=== PATIENT | female | born 1945 | race Caucasian/White ===

== ENCOUNTER → 2021-10-22 09:52 | Outpatient (BNVA) | payer MEDICARE, SELFPAY | PROVIDERS: PCP Internal Medicine; Visit Provider Psychiatry & Neurology Neurology | DX: R26.9 Unspecified abnormalities of gait and mobility (principal); R25.1 Tremor, unspecified; F09 Unspecified mental disorder due to known physiological condition | CPT/HCPCS: 99202 ==

== ENCOUNTER 2022-04-16 13:05 | Inpatient (IN) | payer MEDICARE, SELFPAY ==
--- NOTE | ~2022-04-16 | US_ITS ---
EXAMINATION: US VENOUS ULTRASOUND WITH DOPPLER LOWER EXTREMITY, BILATERAL CLINICAL INFORMATION: Lower extremity edema COMPARISON: None TECHNIQUE: Ultrasound of the deep veins is performed from the hip to the calf with compression sonography and color and pulse Doppler assessment. Spectral analysis with color-flow imaging is performed. FINDINGS: RIGHT: There is normal venous compression and respiratory variation and augmented flow. The visualized common femoral vein, superficial femoral vein, profunda femoral vein, popliteal vein, and the trifurcation region shows no evidence of deep venous thrombosis. There is no significant popliteal fossa cyst. LEFT: There is normal venous compression and respiratory variation and augmented flow. The visualized common femoral vein, superficial femoral vein, profunda femoral vein, popliteal vein, and the trifurcation region shows no evidence of deep venous thrombosis. There is no significant popliteal fossa cyst. If the patient's symptoms persist, followup ultrasound in 5 days 7 days might be of value to exclude proximal propagation from a non-visualized calf vein. US/US venous duplex LE BI IMPRESSION: No DVT demonstrated in the bilateral lower extremities.
--- NOTE | 2022-04-16 13:27 | ECG_ITS ---
Test Reason : medical clearance Blood Pressure : / mmHG Vent. Rate : 084 BPM Atrial Rate : 084 BPM P-R Int : 146 ms QRS Dur : 090 ms QT Int : 370 ms P-R-T Axes : 064 042 052 degrees QTc Int : 437 ms Sinus rhythm with marked sinus arrhythmia with occasional Premature ventricular complexes Otherwise normal ECG No previous ECGs available Referred By: Ruth Gray Electronically Signed By:MAITE BERNARD
--- NOTE | 2022-04-16 13:29 | ED.PSYCH ---
HPI - Psych General Chief Complaint: Psychiatric Symptoms Stated Complaint: SEC 12,SI/HI,PARANOID/DELSUION,UNCOOP,CPD ON BOARD Time Seen by Provider: 04/16/22 13:26 Source: patient, EMS and old records reviewed Mode of arrival: EMS Limitations: other (Acute psychosis) History of Present Illness HPI Narrative: 77-year-old female who came from home under Section 12 restrained for evaluation of psychosis, stated homicidal and suicidal statements. Patient with history of bipolar disorder on lithium there is question of not compliant with her medication, reportedly patient has been disorganized and paranoid behavior, patient in the emergency department is overall poor historian and uninterrupted speech, appeared very disorganized, very difficult to redirect., meaningless dialogue. Unable to obtain meaningful history from the patient. Related Data Home Medications Medication Instructions Recorded Confirmed aspirin 325 mg tablet 325 mg PO DAILY 10/22/21 10/22/21 atenolol 25 mg tablet 25 mg PO DAILY 10/22/21 10/22/21 blood sugar diagnostic (FreeStyle #10 ea 10/22/21 10/22/21 Lite Strips) fluconazole 150 mg tablet 150 mg PO ONCE 10/22/21 10/22/21 furosemide 20 mg tablet 20 mg PO DAILY 10/22/21 10/22/21 levocetirizine 5 mg tablet 5 mg PO DAILY 10/22/21 10/22/21 lithium carbonate 300 mg tablet mg PO 10/22/21 10/22/21 melatonin 5 mg tablet 5 mg PO BEDTIME PRN insomnia 10/22/21 10/22/21 metformin 1,000 mg tablet 1,000 mg PO DAILY 10/22/21 10/22/21 nortriptyline 50 mg capsule 50 mg PO BEDTIME 10/22/21 10/22/21 omeprazole 20 mg capsule,delayed 20 mg PO DAILY 10/22/21 10/22/21 release simvastatin 20 mg tablet 20 mg PO BEDTIME 10/22/21 10/22/21 Allergies Allergy/AdvReac Type Severity Reaction Status Date / Time No Known Allergies Allergy Verified 10/22/21 10:21 [No Known Allergies*] Review of Systems Review of Systems: Yes Unobtainable due to mental status PMFSH Past Medical History Medical History Bipolar 1 disorder Breast cancer Cognitive disorder Depression Diabetes DVT (deep venous thrombosis) Gait disorder GERD (gastroesophageal reflux disease) Hand weakness HTN (hypertension) Hyperlipidemia Obesity TIA (transient ischemic attack) Tremors of nervous system Wheezing Surgical History H/O mastectomy Family History Family History Brother Alcohol abuse Polio Brother Cancer Sister Stroke Mother HTN (hypertension) Sister Cancer Social History Social History Alcohol intake: current Alcohol type: wine Patient Tobacco Use Status: Former Tobacco user Quit Date: 2011 Advance Directives: No Advance Directives Information Provided: Yes Physical Exam Vital Signs: Vital Signs: Last Vital Signs Temp 99 F 04/16/22 13:46 Pulse 125 H 04/16/22 13:46 Resp 18 04/16/22 13:46 BP 141/87 H 04/16/22 13:46 Pulse Ox 99 04/16/22 13:46 O2 Del Method 04/16/22 13:46 BMI result Body Mass Index 29.8 Appearance: Disorganized. Head: Normal external exam. Normocephalic. Atraumatic. No [place] signs noted. No raccoon eyes noted Eyes: PERRLA. EOMI. Conjunctiva and sclera normal. Eyelids normal. ENT: TM's Normal. Pharynx normal. Uvula midline. Moist mucous membranes. No trismus noted. No drooling noted. No muffled voice noted. Neck: Normal inspection. Neck supple. FROM. No adenopathy. Thyroid Normal. No meningeal signs. No neck mass noted. CVS: Normal heart rate and rhythm. Heart sound normal. No murmurs noted. Pulses normal throughout. Respiratory: No respiratory distress. Painless inspiration. Breath sounds normal. No wheezes/rales/rhonchi noted. Chest nontender. No accessory muscle usage noted or decreased air movement noted. Abdomen: Soft and nontender. Bowel sounds normal in all 4 quadrants. No distention noted. No organomegaly noted. No visible injury noted. Back: No CVA tenderness. Full range of motion noted. Skin: Skin warm and dry. Normal skin color. Normal skin turgor. No rashes/lesions/lacerations noted. Extremities: No lower extremity edema. Extremities exhibit normal range of motion. Extremities nontender. Neuro: Disorganized, unable to get history from the patient.. Cranial nerve exam: II-XII are grossly intact No motor deficit. No sensory deficit. Patient Orientation: Cannot assess Level of Consciousness: Awake, and alert Patient Behavior: Guarded, carry on a relevant and meaningless download Mood Description: Can not assess Affect Description: Can not assess Patient Cognition Impaired: Can not assess Ability to Follow Directions: Do not follow direction Speech Pattern: Mix of tangential and circumferential speech Memory Description: Can not assess Hallucinations: Can not assess Delusions: Can not assess Thought Process: Inappropriate Thought Content: Homicidal and suicidal statement to the community mental health social worker Depressive Symptoms: Can not assess Judgement: Poor. Course Course Course Narrative: Due to acute psychosis and acute manic phase of bipolar unable to obtain blood, patient still awaiting for medical clearance and N consultation. MDM - Psych Lab Data Labs: Lab Results 04/16/22 04/16/22 04/16/22 Range/Units 14:19 19:40 19:40 Urine Color Yellow Urine Appearance Clear Urine pH 6.0 (5.0-8.0) Ur Specific [place] <= 1.005 (1.005-1.025) Urine Protein Negative (Neg-Trace) mg/dL Urine Glucose (UA) Negative (Negative) mg/dL Urine Ketones Negative (Negative) mg/dL Urine Blood Negative (Negative) Urine Nitrite Negative (Negative) Ur Leukocyte Esterase Negative (Negative) Urine Opiates Screen Not Detected (Not Detect) Urine Fentanyl Screen Not Detected (Not Detect) Ur Barbiturates Screen Not Detected (Not Detect) Ur Phencyclidine Scrn Not Detected (Not Detect) Ur Amphetamines Screen Not Detected (Not Detect) U Benzodiazepines Scrn Not Detected (Not Detect) Urine Cocaine Screen Not Detected (Not Detect) U Marijuana (THC) Screen Not Detected (Not Detect) COVID-19 (MOISES) Negative (Negative) COVID-19 Clin Com See Note Discharge Plan Discharge Clinical Impression: Bipolar 1 disorder, Acute psychosis Patient Disposition: Still a Patient Prescriptions: No Action fluconazole 150 mg tablet 150 mg PO ONCE levocetirizine 5 mg tablet 5 mg PO DAILY atenolol 25 mg tablet 25 mg PO DAILY (DME) FreeStyle Lite Strips Strip See Rx Instructions Not Applicable TID Qty: 10 Rx Instructions: As directed furosemide 20 mg tablet 20 mg PO DAILY lithium carbonate 300 mg tablet PO metformin 1,000 mg tablet 1,000 mg PO DAILY nortriptyline 50 mg capsule 50 mg PO BEDTIME omeprazole 20 mg capsule,delayed release(DR/EC) 20 mg PO DAILY simvastatin 20 mg tablet 20 mg PO BEDTIME melatonin 5 mg tablet 5 mg PO BEDTIME PRN (Reason: insomnia) aspirin 325 mg tablet 325 mg PO DAILY
[2022-04-16 13:46] VITALS: BP 141/87; PULSE 125; RESP 18; TEMP 37.2; O2SAT 99; BMI 29.8
--- NOTE | 2022-04-16 14:33 | PC.NURSE ---
client declined permission for me to speak to sister
--- NOTE | 2022-04-16 14:40 | MHC.CARE ---
CARE Team talked to pt's sister who is POA and HCP. She will be faxing over paper work at this time and would like to notify the ED that she is highly involved in pt's care and would like to be called for anything.
[2022-04-16 14:47] LABS: COVID-19 Test Negative (Negative); IDNOW Serial# 16C4AD1C
--- NOTE | 2022-04-16 15:41 | MHC.CARE ---
CARE team received copy of pt's Health Care Proxy. Document has been placed in pt's physical chart in the [facility] pod.
--- NOTE | 2022-04-16 17:32 | PC.NURSE ---
im smarter than everyone in this room
[2022-04-16 19:50] LABS: Appearance Urine Clear; Color Urine Yellow; Glucose Urine UA Negative (Negative); Leukocyte Esterase Urine Negative (Negative); Nitrite Urine Negative (Negative); Specific Gravity - Urine <= 1.005 (1.005-1.025); Urine Blood Negative (Negative); Urine Ketones Negative (Negative); Urine Protein Negative (Neg-Trace)
[2022-04-16 20:07] LABS: Amphetamine Screen Urine Not Detected (Not Detect); Barbiturates, Urine Not Detected (Not Detect); Benzodiazepines Screen Urine Not Detected (Not Detect); Cannabinoid Screen Urine Not Detected (Not Detect); Cocaine Screen Urine Not Detected (Not Detect); Fentanyl, urine Not Detected (Not Detect); Opiate Screen Urine Not Detected (Not Detect); Phencyclidine Screen Urine Not Detected (Not Detect)
--- NOTE | 2022-04-16 22:15 | PC.NURSE ---
Patient is completely paranoid, thought content disorganized, thought process tangential, hyper-verbal, loud and disruptive, verbally towards staff member, refused lab draw multiple times, Dr. Gray made aware, patient disposition per [facility] is section 12 inpatient bed search, will continue to monitor.
--- NOTE | 2022-04-16 22:51 | PC.NURSE ---
PATIENT REFUSED LABS.
--- NOTE | 2022-04-17 05:50 | PC.NURSE ---
Patient slept through the night, no distress observed/reported, patient continues to refuse EKG and lab, patient is on section 12 inpatient bed search by N, Behavior loud and disruptive, disorganized, will continue to monitor.
--- NOTE | 2022-04-17 07:20 | PC.NURSE ---
patient appears to remain asleep at present respirations even and unlabored patient appears in no distress
[2022-04-17 10:39] VITALS: BP 139/80; PULSE 100; RESP 16; TEMP 36.3; O2SAT 94
[2022-04-17 10:40] LABS: UPreg QC Valid YES; Urine Pregnancy NEGATIVE (NEGATIVE)
[2022-04-17 10:53] LABS: MANUAL DIFF FLAG NO
[2022-04-17] MEDS: Divalproex Sodium 500 MG TABLET.DR PO ×2 (10:55→20:27)
[2022-04-17] MEDS: amLODIPine Besylate 5 MG TABLET PO (10:56)
[2022-04-17] MEDS: Omeprazole 20 MG CAPSULE.DR PO (10:57)
[2022-04-17] MEDS: metFORMIN HCl ER 500 MG TAB.ER.24H PO (10:57)
[2022-04-17 11:02] LABS: Basophils Percent Auto 0.4 % (0-2); Eosinophils Absolute Auto 0.2 X10*3/uL (0.0-0.4); Eosinophils Percent Auto 2.1 % (0-4); Hematocrit 39.2 % (37.0-47.0); Hemoglobin 12.8 g/dl (12.0-16.0); Imm Gran Abs Auto 0.03 X10*3/uL (0.00-0.03); Imm Gran Pct Auto 0.3 % (0.0-0.4); Lymphocytes Absolute Auto 1.4 X10*3/uL (1.2-4.9); Lymphocytes Percent Auto 14.9 % (20-40); Mean Corpuscular HGB Conc 32.7 g/dl (31.0-35.0); Mean Corpuscular Hemoglobin 29.8 pg (27.0-33.0); Mean Corpuscular Volume 91.4 fL (80.0-98.0); Mean Platelet Volume 10.8 fL (9.4-12.3); Monocytes Absolute Auto 0.5 X10*3/uL (0.1-1.2); Monocytes Percent Auto 5.3 % (2-11); Neutrophils Absolute Auto 7.4 x10*3/uL (2.0-8.3); Platelet Count 290 X10*3/uL (160-400); Red Blood Count 4.29 X10*6/uL (4.20-5.50); Red Cell Distribution Width 13.1 % (11.0-16.0); White Blood Count 9.6 X10*3/uL (4.8-10.8)
[2022-04-17 11:07] VITALS: PULSE 95; RESP 16; TEMP 36.6
[2022-04-17 11:31] LABS: Valproate 23.7 mcg/mL (50.0-100.0)
[2022-04-17 11:55] LABS: Alanine Aminotransferase 26 U/L (0-31); Albumin Level 4.1 g/dL (3.5-5.0); Alkaline Phosphatase 97 U/L (39-117); Anion Gap 15 (12-20); Aspartate Amino Transferase 25 U/L (5-31); Bilirubin Total 0.5 mg/dL (0.0-1.0); Blood Urea Nitrogen 24 mg/dL (9-16); Calcium 9.9 mg/dL (8.4-10.2); Carbon Dioxide 23 mmol/L (22-29); Chloride 109 mmol/L (96-108); Creatinine Clr Calc Pharmacy 38.2; Estimated Glomerular Filt Rate 37; Glucose Fasting 145 mg/dL (60-99); Potassium 4.5 mmol/L (3.3-5.1); Sodium 142 mmol/L (135-145); Total Protein 7.1 g/dL (6.5-8.0)
--- NOTE | 2022-04-17 13:10 | PC.NURSE ---
patient seems to be exhibitiing some forgetfulness, at least 3 times in las 24 hours reminded patient about her not bringing glasses
[2022-04-17 14:30] VITALS: BP 141/65; PULSE 98; RESP 17; TEMP 36.6; O2SAT 97
--- NOTE | 2022-04-17 15:55 | P.HPPS_ITS ---
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 According to the crisis report, the patient carries a diagnosis of bipolar disorder and she had been on lithium for several years until her control and recovery combat rescue discontinued i t. The patient has 2 crisis assessment in the last month due to disorganized behavior. According to the crisis team the patient is nonsensical, disorganized with flight of ideas and aggressive thoughts. Apparently, her [facility]NA called crisis due to disorganized behavior on clear noncompliance with treatment since bottles of medications were not used. On admission, the patient reported that she did not know how come she sign her conditional voluntary, her speech was rapid with flight of ideas, unable to provide a logical story. She was uncooperative and refused to have vital signs are EKG in the emergency room and she demanded to be discharged as soon as possible. The patient was a very poor historian and able to provide details about her mental illness. Past Psychiatric History: History of bipolar disorder, the patient is unable to provide details about her care but apparently she was on lithium for more than 32 years and on October of 2021 her control and recovery combat rescue discontinue this medication. It is unclear if she has previous psychiatric admissions. Medical Evaluation Reviewed: Hospitalist Nathen Pending [facility] Medical History Bipolar 1 disorder Breast cancer Cognitive disorder Depression Diabetes DVT (deep venous thrombosis) Gait disorder GERD (gastroesophageal reflux disease) Hand weakness HTN (hypertension) Hyperlipidemia Obesity TIA (transient ischemic attack) Tremors of nervous system Wheezing Surgical History H/O mastectomy Family History: Denies Social History: States that she lives by herself, apparently she used to be highly functional when she was stable. Substance History: Denies Trauma History: Denies Diagnostics Vital Signs (24Hr): Vital Signs - 24 hr 04/17/22 10:39 04/17/22 11:07 04/17/22 14:30 Temperature 97.4 F 97.9 F 97.9 F Pulse Rate 100 95 98 Respiratory Rate 16 16 17 Blood Pressure 139/80 141/65 H Pulse Oximetry 94 97 Oxygen Delivery Method Room Air Room Air BMI result Body Mass Index 29.8 Labs Results: 04/17/22 10:49 04/17/22 11:32 Labs: Laboratory Results - last 48 hr 04/16/22 04/16/22 04/16/22 14:19 19:40 19:40 WBC RBC Hgb Hct MCV MCH MCHC RDW Plt Count MPV Immature Gran % (Auto) Neut % (Auto) Lymph % (Auto) [place] % (Auto) Eos % (Auto) Baso % (Auto) Lymph # (Auto) [place] # (Auto) Eos # (Auto) Baso # (Auto) Abs Immat Gran (auto) Absolute Neuts (auto) Absolute Nucleated RBC Nucleated RBC % (auto) Sodium Potassium Chloride Carbon Dioxide Anion Gap BUN Creatinine Estim Creat Clear Calc Estimated GFR Fasting Glucose Calcium Total Bilirubin AST ALT Alkaline Phosphatase Total Protein Albumin Urine Color Yellow Urine Appearance Clear Urine pH 6.0 Ur Specific [place] <= 1.005 Urine Protein Negative Urine Glucose (UA) Negative Urine Ketones Negative Urine Blood Negative Urine Nitrite Negative Ur Leukocyte Esterase Negative Urine Test Urine Opiates Screen Not Detected Urine Fentanyl Screen Not Detected Ur Barbiturates Screen Not Detected Valproic Acid Ur Phencyclidine Scrn Not Detected Ur Amphetamines Screen Not Detected U Benzodiazepines Scrn Not Detected Urine Cocaine Screen Not Detected U Marijuana (THC) Screen Not Detected COVID-19 (MOISES) Negative COVID-19 Clin Com See Note 04/17/22 04/17/22 04/17/22 10:25 10:49 10:49 WBC 9.6 RBC 4.29 Hgb 12.8 Hct 39.2 MCV 91.4 MCH 29.8 MCHC 32.7 RDW 13.1 Plt Count 290 MPV 10.8 Immature Gran % (Auto) 0.3 Neut % (Auto) 77.0 H Lymph % (Auto) 14.9 L [place] % (Auto) 5.3 Eos % (Auto) 2.1 Baso % (Auto) 0.4 Lymph # (Auto) 1.4 [place] # (Auto) 0.5 Eos # (Auto) 0.2 Baso # (Auto) 0.0 Abs Immat Gran (auto) 0.03 Absolute Neuts (auto) 7.4 Absolute Nucleated RBC 0.000 Nucleated RBC % (auto) 0.0 Sodium Potassium Chloride Carbon Dioxide Anion Gap BUN Creatinine Estim Creat Clear Calc Estimated GFR Fasting Glucose Calcium Total Bilirubin AST ALT Alkaline Phosphatase Total Protein Albumin Urine Color Urine Appearance Urine pH Ur Specific [place] Urine Protein Urine Glucose (UA) Urine Ketones Urine Blood Urine Nitrite Ur Leukocyte Esterase Urine Test NEGATIVE Urine Opiates Screen Urine Fentanyl Screen Ur Barbiturates Screen Valproic Acid 23.7 L Ur Phencyclidine Scrn Ur Amphetamines Screen U Benzodiazepines Scrn Urine Cocaine Screen U Marijuana (THC) Screen COVID-19 (MOISES) COVID-19 Clin Com 04/17/22 11:32 WBC RBC Hgb Hct MCV MCH MCHC RDW Plt Count MPV Immature Gran % (Auto) Neut % (Auto) Lymph % (Auto) [place] % (Auto) Eos % (Auto) Baso % (Auto) Lymph # (Auto) [place] # (Auto) Eos # (Auto) Baso # (Auto) Abs Immat Gran (auto) Absolute Neuts (auto) Absolute Nucleated RBC Nucleated RBC % (auto) Sodium 142 Potassium 4.5 Chloride 109 H Carbon Dioxide 23 Anion Gap 15 BUN 24 H Creatinine 1.39 Estim Creat Clear Calc 38.2 Estimated GFR 37 Fasting Glucose 145 H Calcium 9.9 Total Bilirubin 0.5 AST 25 ALT 26 Alkaline Phosphatase 97 Total Protein 7.1 Albumin 4.1 Urine Color Urine Appearance Urine pH Ur Specific [place] Urine Protein Urine Glucose (UA) Urine Ketones Urine Blood Urine Nitrite Ur Leukocyte Esterase Urine Test Urine Opiates Screen Urine Fentanyl Screen Ur Barbiturates Screen Valproic Acid Ur Phencyclidine Scrn Ur Amphetamines Screen U Benzodiazepines Scrn Urine Cocaine Screen U Marijuana (THC) Screen COVID-19 (MOISES) COVID-19 Clin Com Meds/Allergies Meds Home Medications Medication Instructions Recorded Confirmed Type blood sugar diagnostic ([place] #10 ea 10/22/21 04/17/22 History Lite Strips) amlodipine 5 mg tablet 1 tab PO DAILY 04/16/22 04/16/22 History divalproex 500 mg tablet,delayed 1 tab PO BID 04/16/22 04/16/22 History release lamotrigine 25 mg tablet 2 tab PO BID 04/16/22 04/16/22 History metformin 500 mg tablet,extended 1 tab PO DAILY 04/16/22 04/16/22 History release 24 hr olanzapine 2.5 mg tablet 1 tab PO BEDTIME 04/16/22 04/16/22 History omeprazole 20 mg capsule,delayed 1 cap PO DAILY@0600 04/16/22 04/17/22 History release torsemide 20 mg tablet 1 tab PO DAILY PRN swelling 04/16/22 04/16/22 History Allergies Allergies Allergy/AdvReac Type Severity Reaction Status Date / Time No Known Allergies Allergy Verified 10/22/21 10:21 [No Known Allergies*] Mental Status Exam Mental Status Exam Patient Appearance: Appropriate (On hospital gowns) Patient Orientation: Person, Place and Situation Level of Consciousness: Awake Patient Behavior: Guarded and Hyperactive Mood Description: Hostile Affect Description: Labile Patient Cognition Impaired: Yes Ability to Follow Directions: Fair Speech Pattern: Clear Hallucinations: None Delusions: Grandiose Thought Process: Racing Thought Content: positive for [place], positive for Loose Associations and positive for Logical Judgement: Poor Assessment & Plan Assessment & Plan (1) Acute psychosis: Status: Acute Code(s): F23 - Brief psychotic disorder (2) Bipolar 1 disorder: Status: Acute Code(s): F31.9 - Bipolar disorder, unspecified Plan Elderly female with a long history of bipolar disorder who was stable for more than 32 years old lithium , recently discontinued due to renal problems with manic symptoms elicited by flight of ideas, racing thoughts, disorganized behavior and increased irritability. She was referred to the emergency room by the [facility]NA for assessment. Plan 1. Gather collateral information. 2. Continue with regular medications prescribed before. 3. Start Zyprexa 2.5 mg p.o. q.h.s. as a mood stabilizer. 4. Continue medical workup Patient educated on: diagnosis Informed Consent: further education needed Reason for continued inpatient stay Substantial Risk for: harm to self, inability to function, rapid decompensation and med/psych decompensation
--- NOTE | 2022-04-17 17:08 | PC.ADMIT ---
Patient admitted to unit from ED with diagnosis of disorganized behavior.Patient was dressed in hospital attire and appeared neatly groomed. Patient has HX of bipolar disorder and had been on [place] until recently when plant safety engineer discontinued it. The patient is nonsensical, disorganized with flight of ideas and exhibiting agitation. Patient reported to this fiction and nonfiction prose writer that she did not agree to sign the CV. She acknowledged that it was her signature however refused to acknowledge that she signed it willingly. She exhibited rapid speech and was unable/unwilling to provide collateral information or participate in admission process stating, I'm not going to do anything until I talk to my micro paleontologist. The micro paleontologist she named was called and message was left by patient. Patient settled into unit and was observed interacting with peers in an appropriate manner. VSS.
[2022-04-17 18:00] VITALS: BP 122/58; PULSE 88; RESP 19; TEMP 36.6; O2SAT 95
[2022-04-17] MEDS: lamoTRIgine 25 MG TABLET 50 MG PO (20:24)
[2022-04-17] MEDS: OLANZapine 2.5 MG TABLET PO (20:24)
[2022-04-17] MEDS: Hydrocortisone 1 % Cream 28.35 GM TUBE 1 APPL TOPICAL (21:53)
[2022-04-18] MEDS: Omeprazole 20 MG CAPSULE.DR PO (05:59)
[2022-04-18 07:00] VITALS: BP 136/73; PULSE 98; RESP 16; TEMP 35.8; O2SAT 96
[2022-04-18 08:27] LABS: Alanine Aminotransferase 25 U/L (0-31); Alkaline Phosphatase 90 U/L (39-117); Anion Gap 18 (12-20); Aspartate Amino Transferase 20 U/L (5-31); Bilirubin Total 0.3 mg/dL (0.0-1.0); Blood Urea Nitrogen 29 mg/dL (9-16); Calcium 9.7 mg/dL (8.4-10.2); Carbon Dioxide 22 mmol/L (22-29); Chloride 108 mmol/L (96-108); Cholesterol 154 mg/dL; Creatinine Clr Calc Pharmacy 32.9; Estimated Glomerular Filt Rate 31; Glucose Fasting 124 mg/dL (60-99); HDL Cholesterol 41 mg/dL; LDL Cholesterol Calculated 77 mg/dl; Potassium 4.5 mmol/L (3.3-5.1); Sodium 143 mmol/L (135-145); Total Protein 7.1 g/dL (6.5-8.0); Triglycerides 184 mg/dL
[2022-04-18] MEDS: amLODIPine Besylate 5 MG TABLET PO (09:48)
[2022-04-18] MEDS: metFORMIN HCl ER 500 MG TAB.ER.24H PO (09:48)
[2022-04-18] MEDS: Divalproex Sodium 500 MG TABLET.DR PO ×2 (09:48→20:20)
[2022-04-18] MEDS: lamoTRIgine 25 MG TABLET 50 MG PO (09:48)
--- NOTE | 2022-04-18 13:23 | P.PNPSI_ITS ---
Subjective Subjective Date of Service: 04/18/22 Reason For Visit: Psychosis Subjective Notes: Conditional Voluntary Healthcare Proxy: Yes (Not invoked) Interim History: Patient is disorganized somewhat poor historian somewhat pressured and labile Medication Compliance: Yes Review of Systems Acute medical concerns: Yes Recent hospitalization at [facility] trying to obtain records Diagnosis of chronic kidney disease over the past year Mental Status Exam Mental Status Exam Patient Appearance: Appropriate (On hospital gowns) Patient Orientation: Person, Place and Situation Level of Consciousness: Awake Patient Behavior: Guarded, Hyperactive and Restless Mood Description: Labile, Angry and Apprehensive Affect Description: Labile Patient Cognition Impaired: Yes Ability to Follow Directions: Fair Speech Pattern: Clear Hallucinations: None Delusions: Grandiose Thought Process: Racing Thought Content: positive for [place], positive for Loose Associations and positive for Logical Judgement: Poor Diagnostics Vital Signs (24Hr): Vital Signs - 24 hr 04/17/22 14:30 04/17/22 18:00 04/18/22 07:00 Temperature 97.9 F 97.8 F 96.5 F L Pulse Rate 98 88 98 Respiratory Rate 17 19 16 Blood Pressure 141/65 H 122/58 L 136/73 Pulse Oximetry 97 95 96 Oxygen Delivery Method Room Air Room Air Room Air BMI result Body Mass Index 29.8 Labs Results: 04/17/22 10:49 04/18/22 07:57 Labs: Laboratory Results - last 48 hr 04/16/22 04/16/22 04/16/22 14:19 19:40 19:40 WBC RBC Hgb Hct MCV MCH MCHC RDW Plt Count MPV Immature Gran % (Auto) Neut % (Auto) Lymph % (Auto) [place] % (Auto) Eos % (Auto) Baso % (Auto) Lymph # (Auto) [place] # (Auto) Eos # (Auto) Baso # (Auto) Abs Immat Gran (auto) Absolute Neuts (auto) Absolute Nucleated RBC Nucleated RBC % (auto) Sodium Potassium Chloride Carbon Dioxide Anion Gap BUN Creatinine Estim Creat Clear Calc Estimated GFR Fasting Glucose Calcium Total Bilirubin AST ALT Alkaline Phosphatase Total Protein Albumin Triglycerides Cholesterol LDL Cholesterol, Calc HDL Cholesterol Urine Color Yellow Urine Appearance Clear Urine pH 6.0 Ur Specific [place] <= 1.005 Urine Protein Negative Urine Glucose (UA) Negative Urine Ketones Negative Urine Blood Negative Urine Nitrite Negative Ur Leukocyte Esterase Negative Urine Test Urine Opiates Screen Not Detected Urine Fentanyl Screen Not Detected Ur Barbiturates Screen Not Detected Valproic Acid Ur Phencyclidine Scrn Not Detected Ur Amphetamines Screen Not Detected U Benzodiazepines Scrn Not Detected Urine Cocaine Screen Not Detected U Marijuana (THC) Screen Not Detected COVID-19 ([facility]) Negative COVID-19 Clin Com See Note 04/17/22 04/17/22 04/17/22 10:25 10:49 10:49 WBC 9.6 RBC 4.29 Hgb 12.8 Hct 39.2 MCV 91.4 MCH 29.8 MCHC 32.7 RDW 13.1 Plt Count 290 MPV 10.8 Immature Gran % (Auto) 0.3 Neut % (Auto) 77.0 H Lymph % (Auto) 14.9 L [place] % (Auto) 5.3 Eos % (Auto) 2.1 Baso % (Auto) 0.4 Lymph # (Auto) 1.4 [place] # (Auto) 0.5 Eos # (Auto) 0.2 Baso # (Auto) 0.0 Abs Immat Gran (auto) 0.03 Absolute Neuts (auto) 7.4 Absolute Nucleated RBC 0.000 Nucleated RBC % (auto) 0.0 Sodium Potassium Chloride Carbon Dioxide Anion Gap BUN Creatinine Estim Creat Clear Calc Estimated GFR Fasting Glucose Calcium Total Bilirubin AST ALT Alkaline Phosphatase Total Protein Albumin Triglycerides Cholesterol LDL Cholesterol, Calc HDL Cholesterol Urine Color Urine Appearance Urine pH Ur Specific [place] Urine Protein Urine Glucose (UA) Urine Ketones Urine Blood Urine Nitrite Ur Leukocyte Esterase Urine Test NEGATIVE Urine Opiates Screen Urine Fentanyl Screen Ur Barbiturates Screen Valproic Acid 23.7 L Ur Phencyclidine Scrn Ur Amphetamines Screen U Benzodiazepines Scrn Urine Cocaine Screen U Marijuana (THC) Screen COVID-19 ([facility]) COVID-19 Clin Com 04/17/22 04/18/22 11:32 07:57 WBC RBC Hgb Hct MCV MCH MCHC RDW Plt Count MPV Immature Gran % (Auto) Neut % (Auto) Lymph % (Auto) [place] % (Auto) Eos % (Auto) Baso % (Auto) Lymph # (Auto) [place] # (Auto) Eos # (Auto) Baso # (Auto) Abs Immat Gran (auto) Absolute Neuts (auto) Absolute Nucleated RBC Nucleated RBC % (auto) Sodium 142 143 Potassium 4.5 4.5 Chloride 109 H 108 Carbon Dioxide 23 22 Anion Gap 15 18 BUN 24 H 29 H Creatinine 1.39 1.61 H Estim Creat Clear Calc 38.2 32.9 Estimated GFR 37 31 Fasting Glucose 145 H 124 H Calcium 9.9 9.7 Total Bilirubin 0.5 0.3 AST 25 20 ALT 26 25 Alkaline Phosphatase 97 90 Total Protein 7.1 7.1 Albumin 4.1 4.0 Triglycerides 184 Cholesterol 154 LDL Cholesterol, Calc 77 HDL Cholesterol 41 Urine Color Urine Appearance Urine pH Ur Specific [place] Urine Protein Urine Glucose (UA) Urine Ketones Urine Blood Urine Nitrite Ur Leukocyte Esterase Urine Test Urine Opiates Screen Urine Fentanyl Screen Ur Barbiturates Screen Valproic Acid Ur Phencyclidine Scrn Ur Amphetamines Screen U Benzodiazepines Scrn Urine Cocaine Screen U Marijuana (THC) Screen COVID-19 ([facility]ES) COVID-19 Clin Com Medications Medications Current Medications Acetaminophen (Acetaminophen 325 Mg Tablet) 650 mg PO Q6H PRN PRN Reason: Headache/Pain Mild Scale (1-3) Al Hydroxide/Mg Hydroxide (Magnesium Hydrox/Alum Hydrox 30 Ml Oral.Susp) 30 ml PO Q6H PRN PRN Reason: Heartburn/Nausea Amlodipine Besylate (Amlodipine Besylate 5 Mg Tablet) 5 mg PO DAILY [facility]; Protocol Last Admin: 04/18/22 09:48 Dose: 5 mg Divalproex Sodium (Divalproex Sodium 500 Mg Tablet.) 500 mg PO BID [facility] Last Admin: 04/18/22 09:48 Dose: 500 mg Hydrocortisone (Hydrocortisone 1 % Cream 28.35 Gm Tube) 1 appl TOPICAL BID PRN PRN Reason: itchiness Last Admin: 04/17/22 21:53 Dose: 1 appl Hydroxyzine HCl (Hydroxyzine Hcl 25 Mg Tablet) 25 mg PO Q6H PRN PRN Reason: Anxiety Lamotrigine (Lamotrigine 25 Mg Tablet) 50 mg PO BID [facility] Last Admin: 04/18/22 09:48 Dose: 50 mg Magnesium Hydroxide (Milk Of Magnesia 30 Ml Oral.Susp) 30 ml PO DAILY PRN PRN Reason: Constipation Metformin HCl (Metformin Hcl Er 500 Mg Tab.Er.24h) 500 mg PO DAILY [facility] Last Admin: 04/18/22 09:48 Dose: 500 mg Olanzapine (Olanzapine 2.5 Mg Tablet) 2.5 mg PO BEDTIME [facility] Last Admin: 04/17/22 20:24 Dose: 2.5 mg Omeprazole (Omeprazole 20 Mg Capsule.) 20 mg PO DAILY@0630 [facility] Last Admin: 04/18/22 05:59 Dose: 20 mg Torsemide (Torsemide 20 Mg Tablet) 20 mg PO DAILY PRN; Protocol PRN Reason: swelling Trazodone HCl (Trazodone Hcl 50 Mg Tablet) 50 mg PO BEDTIME PRN PRN Reason: Insomnia Allergies Allergies Allergy/AdvReac Type Severity Reaction Status Date / Time No Known Allergies Allergy Verified 10/22/21 10:21 [No Known Allergies*] Assessment & Plan Assessment & Plan (1) Acute psychosis: Status: Acute Code(s): F23 - Brief psychotic disorder (2) Bipolar 1 disorder: Status: Acute Code(s): F31.9 - Bipolar disorder, unspecified Plan Elderly female with a long history of bipolar disorder who was stable for more than 34 years old lithium , recently discontinued due to renal problems with manic symptoms elicited by flight of ideas, racing thoughts, disorganized behavior and increased irritability. She was referred to the emergency room by the [facility] for assessment. Plan 1. Gather collateral information. 2. Continue with regular medications prescribed before. 3. Start Zyprexa 2.5 mg p.o. q.h.s. as a mood stabilizer. 4. Continue medical workup for 04/18/22 stop lamictal cont depakote get records [facility] I spent minutes with the patient and/or on the patient floor today, greater than?50% of which was spent counseling/coordinating care. Reason for contiued inpatient stay Substantial Risk for: inability to function and med/psych decompensation
--- NOTE | 2022-04-18 14:45 | MHC.CLN ---
NUTRITION DIET CHANGED TO DIABETIC 1800 KCALS. DX DIABETES AND TAKES METFORMIN.
--- NOTE | 2022-04-18 17:50 | PC.NURSE ---
Patient was offered 3 day notice today following statements made during admission 04/17/22. Patient was agitated immediately following admission to unit and was declining to discuss the 3 day notice even though she was stating she did not want to be here.When approached today by TW patient was calm and expressed desire to remain hospitalized for as long as necessary. Patient stated, It's very peaceful here. I want to stay. No one is bothering me here. Patient has been pleasant and cooperative. Interacting with other patients. Sleeping and eating well. Patients sister(s) have called to discuss patient but have been denied access d/t patient refusing to sign releases and not wishing to speak to sister(s) at this time.
[2022-04-18 18:00] VITALS: BP 138/62; PULSE 85; RESP 16; TEMP 36.2; O2SAT 93
[2022-04-18] MEDS: OLANZapine 2.5 MG TABLET PO (20:20)
[2022-04-18] MEDS: Hydrocortisone 1 % Cream 28.35 GM TUBE 1 APPL TOPICAL (22:23)
[2022-04-19] MEDS: Omeprazole 20 MG CAPSULE.DR PO (05:53)
[2022-04-19 06:00] VITALS: BP 143/80; PULSE 73; RESP 17; TEMP 36.9; O2SAT 97
[2022-04-19] MEDS: metFORMIN HCl ER 500 MG TAB.ER.24H PO (10:00)
[2022-04-19] MEDS: amLODIPine Besylate 5 MG TABLET PO (10:00)
[2022-04-19] MEDS: Divalproex Sodium 500 MG TABLET.DR PO ×2 (10:01→20:23)
--- NOTE | 2022-04-19 13:13 | PC.NURSE ---
Pt was administered a MOCA at 12:45pm in the milieu of . Pt scored a 22, demonstrating mild cognitive impairment. Upon assessment administration, pt was very social and pleasant. Since the assessment was done in the busy milieu, there was lots of background noise and visual distractions which could have affected the pt's total score on the assessment. These confounding variables should be considered when interpreting the results.
--- NOTE | 2022-04-19 16:44 | P.PNPSI_ITS ---
Subjective Subjective Date of Service: 04/19/22 Reason For Visit: Psychosis Subjective Notes: Conditional Voluntary Interim History: Patient was calmer more organized today seems to be responding to Depakote Medication Compliance: Yes Mental Status Exam Mental Status Exam Patient Appearance: Appropriate (On hospital gowns) Patient Orientation: Person, Place and Situation Level of Consciousness: Awake Patient Behavior: Cooperative Mood Description: Labile, Angry and Apprehensive Affect Description: Labile Patient Cognition Impaired: Yes Ability to Follow Directions: Fair Speech Pattern: Clear Hallucinations: None Delusions: Grandiose Thought Process: Racing Thought Content: positive for [place], positive for Loose Associations and positive for Logical Judgement: Poor Diagnostics Vital Signs (24Hr): Vital Signs - 24 hr 04/18/22 18:00 04/19/22 06:00 Temperature 97.1 F 98.4 F Pulse Rate 85 73 Respiratory Rate 16 17 Blood Pressure 138/62 143/80 H Pulse Oximetry 93 97 Oxygen Delivery Method Room Air Room Air BMI result Body Mass Index 29.8 Labs Results: 04/17/22 10:49 04/18/22 07:57 Labs: Laboratory Results - last 48 hr 04/18/22 07:57 Sodium 143 Potassium 4.5 Chloride 108 Carbon Dioxide 22 Anion Gap 18 BUN 29 H Creatinine 1.61 H Estim Creat Clear Calc 32.9 Estimated GFR 31 Fasting Glucose 124 H Calcium 9.7 Total Bilirubin 0.3 AST 20 ALT 25 Alkaline Phosphatase 90 Total Protein 7.1 Albumin 4.0 Triglycerides 184 Cholesterol 154 LDL Cholesterol, Calc 77 HDL Cholesterol 41 Medications Medications Current Medications Acetaminophen (Acetaminophen 325 Mg Tablet) 650 mg PO Q6H PRN PRN Reason: Headache/Pain Mild Scale (1-3) Al Hydroxide/Mg Hydroxide (Magnesium Hydrox/Alum Hydrox 30 Ml Oral.Susp) 30 ml PO Q6H PRN PRN Reason: Heartburn/Nausea Amlodipine Besylate (Amlodipine Besylate 5 Mg Tablet) 5 mg PO DAILY [facility]; Protocol Last Admin: 04/19/22 10:00 Dose: 5 mg Divalproex Sodium (Divalproex Sodium 500 Mg Tablet.Dr) 500 mg PO BID [facility] Last Admin: 04/19/22 10:01 Dose: 500 mg Hydrocortisone (Hydrocortisone 1 % Cream 28.35 Gm Tube) 1 appl TOPICAL BID PRN PRN Reason: itchiness Last Admin: 04/18/22 22:23 Dose: 1 appl Hydroxyzine HCl (Hydroxyzine Hcl 25 Mg Tablet) 25 mg PO Q6H PRN PRN Reason: Anxiety Magnesium Hydroxide (Milk Of Magnesia 30 Ml Oral.Susp) 30 ml PO DAILY PRN PRN Reason: Constipation Metformin HCl (Metformin Hcl Er 500 Mg Tab.Er.24h) 500 mg PO DAILY [facility] Last Admin: 04/19/22 10:00 Dose: 500 mg Olanzapine (Olanzapine 2.5 Mg Tablet) 2.5 mg PO BEDTIME [facility] Last Admin: 04/18/22 20:20 Dose: 2.5 mg Omeprazole (Omeprazole 20 Mg Capsule.Dr) 20 mg PO DAILY@0630 [facility] Last Admin: 04/19/22 05:53 Dose: 20 mg Torsemide (Torsemide 20 Mg Tablet) 20 mg PO DAILY PRN; Protocol PRN Reason: swelling Trazodone HCl (Trazodone Hcl 50 Mg Tablet) 50 mg PO BEDTIME PRN PRN Reason: Insomnia Allergies Allergies Allergy/AdvReac Type Severity Reaction Status Date / Time No Known Allergies Allergy Verified 10/22/21 10:21 [No Known Allergies*] Assessment & Plan Assessment & Plan (1) Acute psychosis: Status: Acute Code(s): F23 - Brief psychotic disorder (2) Bipolar 1 disorder: Status: Acute Code(s): F31.9 - Bipolar disorder, unspecified Plan Elderly female with a long history of bipolar disorder who was stable for more than 34 years old lithium , recently discontinued due to renal problems with manic symptoms elicited by flight of ideas, racing thoughts, disorganized behavior and increased irritability. She was referred to the emergency room by the [facility] for assessment. Plan 1. Gather collateral information. 2. Continue with regular medications prescribed before. 3. Start Zyprexa 2.5 mg p.o. q.h.s. as a mood stabilizer. 4. Continue medical workup for 04/18/22 stop lamictal cont depakote get records [facility] 04/19/2022 [facility] records reviewed patient had been treated for UTI Lamictal had been discontinued patient was on Depakote I spent minutes with the patient and/or on the patient floor today, greater than?50% of which was spent counseling/coordinating care. Reason for contiued inpatient stay Substantial Risk for: inability to function and rapid decompensation
[2022-04-19 18:00] VITALS: BP 143/73; PULSE 78; RESP 16; TEMP 36.1; O2SAT 99
[2022-04-19] MEDS: OLANZapine 2.5 MG TABLET PO (20:23)
[2022-04-19] MEDS: Hydrocortisone 1 % Cream 28.35 GM TUBE 1 APPL TOPICAL (20:43)
[2022-04-20] MEDS: Omeprazole 20 MG CAPSULE.DR PO (06:09)
[2022-04-20] MEDS: Divalproex Sodium 500 MG TABLET.DR PO ×2 (08:24→20:20)
[2022-04-20] MEDS: metFORMIN HCl ER 500 MG TAB.ER.24H PO (08:24)
[2022-04-20] MEDS: amLODIPine Besylate 5 MG TABLET PO (08:24)
[2022-04-20 08:42] VITALS: BP 153/69; PULSE 81; RESP 14; TEMP 519.9; TEMP 967.9; O2SAT 94
--- NOTE | 2022-04-20 12:25 | P.PNPSI_ITS ---
Subjective Subjective Date of Service: 04/20/22 Reason For Visit: Psychosis Subjective Notes: Conditional Voluntary Interim History: Patient was seen and discussed in rounds today. Records and plans were reviewed. She continues to be stable with little to no insight. Some aggressive verbal output. She is med compliant. Eating and sleeping adequately. She is back on Lamictal. No side effects reported. No changes were made Medication Compliance: Yes Side effects from medications: No Review of Systems Review of Systems Yes all other systems are reviewed and are negative Diagnostics Vital Signs (24Hr): Vital Signs - 24 hr 04/19/22 18:00 04/20/22 08:42 Temperature 96.9 F 967.9 F H Pulse Rate 78 81 Respiratory Rate 16 14 Blood Pressure 143/73 H 153/69 H Pulse Oximetry 99 94 Oxygen Delivery Method Room Air Room Air BMI result Body Mass Index 29.8 Labs Results: 04/17/22 10:49 04/18/22 07:57 Medications Medications Current Medications Acetaminophen (Acetaminophen 325 Mg Tablet) 650 mg PO Q6H PRN PRN Reason: Headache/Pain Mild Scale (1-3) Al Hydroxide/Mg Hydroxide (Magnesium Hydrox/Alum Hydrox 30 Ml Oral.Susp) 30 ml PO Q6H PRN PRN Reason: Heartburn/Nausea Amlodipine Besylate (Amlodipine Besylate 5 Mg Tablet) 5 mg PO DAILY [facility]; Protocol Last Admin: 04/20/22 08:24 Dose: 5 mg Divalproex Sodium (Divalproex Sodium 500 Mg Tablet.) 500 mg PO BID [facility] Last Admin: 04/20/22 08:24 Dose: 500 mg Hydrocortisone (Hydrocortisone 1 % Cream 28.35 Gm Tube) 1 appl TOPICAL BID PRN PRN Reason: itchiness Last Admin: 04/19/22 20:43 Dose: 1 appl Hydroxyzine HCl (Hydroxyzine Hcl 25 Mg Tablet) 25 mg PO Q6H PRN PRN Reason: Anxiety Magnesium Hydroxide (Milk Of Magnesia 30 Ml Oral.Susp) 30 ml PO DAILY PRN PRN Reason: Constipation Metformin HCl (Metformin Hcl Er 500 Mg Tab.Er.24h) 500 mg PO DAILY [facility] Last Admin: 04/20/22 08:24 Dose: 500 mg Olanzapine (Olanzapine 2.5 Mg Tablet) 2.5 mg PO BEDTIME [facility] Last Admin: 04/19/22 20:23 Dose: 2.5 mg Omeprazole (Omeprazole 20 Mg Capsule.) 20 mg PO DAILY@0630 [facility] Last Admin: 04/20/22 06:09 Dose: 20 mg Torsemide (Torsemide 20 Mg Tablet) 20 mg PO DAILY PRN; Protocol PRN Reason: swelling Trazodone HCl (Trazodone Hcl 50 Mg Tablet) 50 mg PO BEDTIME PRN PRN Reason: Insomnia Allergies Allergies Allergy/AdvReac Type Severity Reaction Status Date / Time No Known Allergies Allergy Verified 10/22/21 10:21 [No Known Allergies*] Assessment & Plan Assessment & Plan (1) Acute psychosis: Status: Acute Code(s): F23 - Brief psychotic disorder (2) Bipolar 1 disorder: Status: Acute Code(s): F31.9 - Bipolar disorder, unspecified Plan Elderly female with a long history of bipolar disorder who was stable for more than 34 years old lithium , recently discontinued due to renal problems with manic symptoms elicited by flight of ideas, racing thoughts, disorganized behavior and increased irritability. She was referred to the emergency room by the [facility] for assessment. Plan 1. Gather collateral information. 2. Continue with regular medications prescribed before. 3. Start Zyprexa 2.5 mg p.o. q.h.s. as a mood stabilizer. 4. Continue medical workup for 04/18/22 stop lamictal cont depakote get records [facility] 04/19/2022 [facility] records reviewed patient had been treated for UTI Lamictal had been discontinued patient was on Depakote 04/20: Continue current regimen and plans I spent minutes with the patient and/or on the patient floor today, greater than?50% of which was spent counseling/coordinating care. Reason for contiued inpatient stay Substantial Risk for: inability to function
[2022-04-20] MEDS: Hydrocortisone 1 % Cream 28.35 GM TUBE 1 APPL TOPICAL (12:41)
[2022-04-20 18:00] VITALS: BP 165/77; PULSE 97; RESP 20; TEMP 36.3; O2SAT 98
[2022-04-20] MEDS: OLANZapine 2.5 MG TABLET PO (20:20)
[2022-04-20] MEDS: Acetaminophen 325 MG TABLET 650 MG PO (22:25)
[2022-04-21] MEDS: Omeprazole 20 MG CAPSULE.DR PO (06:15)
[2022-04-21 07:00] VITALS: BP 137/83; PULSE 80; RESP 14; TEMP 36.1; O2SAT 96
[2022-04-21] MEDS: metFORMIN HCl ER 500 MG TAB.ER.24H PO (08:04)
[2022-04-21] MEDS: amLODIPine Besylate 5 MG TABLET PO (08:04)
[2022-04-21] MEDS: Divalproex Sodium 500 MG TABLET.DR PO ×2 (08:04→20:34)
--- NOTE | 2022-04-21 10:24 | P.PNPSI_ITS ---
Subjective Subjective Date of Service: 04/21/22 Reason For Visit: Psychosis Subjective Notes: Conditional Voluntary Interim History: Patient was seen and discussed in rounds today. Records and plans were reviewed. She continues to be fairly stable but has 2+ lower extremity edema. I notice that her diuretic is written as a p.r.n. and she has not been receiving it so I changed that to Demadex 20 mg daily. Eating and sleeping adequately she had. She has been med compliant. No other changes were made today Medication Compliance: Yes Side effects from medications: No Review of Systems Review of Systems Lower extremity edema Yes all other systems are reviewed and are negative Mental Status Exam Mental Status Exam Patient Appearance: Appropriate (On hospital gowns) Patient Orientation: Person, Place and Situation Level of Consciousness: Awake Patient Behavior: Cooperative Mood Description: Labile, Angry and Apprehensive Affect Description: Labile Patient Cognition Impaired: Yes Ability to Follow Directions: Fair Speech Pattern: Clear Hallucinations: None Delusions: Grandiose Thought Process: Racing Thought Content: positive for [place], positive for Loose Associations and positive for Logical Judgement: Poor Diagnostics Vital Signs (24Hr): Vital Signs - 24 hr 04/20/22 18:00 04/21/22 07:00 Temperature 97.3 F 97.0 F Pulse Rate 97 80 Respiratory Rate 20 14 Blood Pressure 165/77 H 137/83 Pulse Oximetry 98 96 Oxygen Delivery Method Room Air Room Air BMI result Body Mass Index 29.8 Labs Results: 04/17/22 10:49 04/18/22 07:57 Medications Medications Current Medications Acetaminophen (Acetaminophen 325 Mg Tablet) 650 mg PO Q6H PRN PRN Reason: Headache/Pain Mild Scale (1-3) Last Admin: 04/20/22 22:25 Dose: 650 mg Al Hydroxide/Mg Hydroxide (Magnesium Hydrox/Alum Hydrox 30 Ml Oral.Susp) 30 ml PO Q6H PRN PRN Reason: Heartburn/Nausea Amlodipine Besylate (Amlodipine Besylate 5 Mg Tablet) 5 mg PO DAILY [facility]; Protocol Last Admin: 04/21/22 08:04 Dose: 5 mg Divalproex Sodium (Divalproex Sodium 500 Mg Tablet.) 500 mg PO BID [facility] Last Admin: 04/21/22 08:04 Dose: 500 mg Hydrocortisone (Hydrocortisone 1 % Cream 28.35 Gm Tube) 1 appl TOPICAL BID PRN PRN Reason: itchiness Last Admin: 04/20/22 12:41 Dose: 1 appl Hydroxyzine HCl (Hydroxyzine Hcl 25 Mg Tablet) 25 mg PO Q6H PRN PRN Reason: Anxiety Magnesium Hydroxide (Milk Of Magnesia 30 Ml Oral.Susp) 30 ml PO DAILY PRN PRN Reason: Constipation Metformin HCl (Metformin Hcl Er 500 Mg Tab.Er.24h) 500 mg PO DAILY [facility] Last Admin: 04/21/22 08:04 Dose: 500 mg Olanzapine (Olanzapine 2.5 Mg Tablet) 2.5 mg PO BEDTIME [facility] Last Admin: 04/20/22 20:20 Dose: 2.5 mg Omeprazole (Omeprazole 20 Mg Capsule.Dr) 20 mg PO DAILY@0630 [facility] Last Admin: 04/21/22 06:15 Dose: 20 mg Trazodone HCl (Trazodone Hcl 50 Mg Tablet) 50 mg PO BEDTIME PRN PRN Reason: Insomnia Allergies Allergies Allergy/AdvReac Type Severity Reaction Status Date / Time No Known Allergies Allergy Verified 10/22/21 10:21 [No Known Allergies*] Assessment & Plan Assessment & Plan (1) Acute psychosis: Status: Acute Code(s): F23 - Brief psychotic disorder (2) Bipolar 1 disorder: Status: Acute Code(s): F31.9 - Bipolar disorder, unspecified Plan Elderly female with a long history of bipolar disorder who was stable for more than 34 years old lithium , recently discontinued due to renal problems with manic symptoms elicited by flight of ideas, racing thoughts, disorganized behavior and increased irritability. She was referred to the emergency room by the [facility] for assessment. Plan 1. Gather collateral information. 2. Continue with regular medications prescribed before. 3. Start Zyprexa 2.5 mg p.o. q.h.s. as a mood stabilizer. 4. Continue medical workup for 04/18/22 stop lamictal cont depakote get records [facility] 04/19/2022 [facility] records reviewed patient had been treated for UTI Lamictal had been discontinued patient was on Depakote 04/20: Continue current regimen and plans 04/21: Continue current regimen and plans. Change diuretic to daily use from p.r.n. I spent minutes with the patient and/or on the patient floor today, greater than?50% of which was spent counseling/coordinating care. Patient educated on: medication risk/benefits Reason for contiued inpatient stay Substantial Risk for: med/psych decompensation
[2022-04-21] MEDS: Torsemide 20 MG TABLET PO (11:36)
[2022-04-21 18:00] VITALS: BP 158/79; PULSE 94; RESP 17; TEMP 36.2; O2SAT 98
[2022-04-21] MEDS: OLANZapine 2.5 MG TABLET PO (20:34)
[2022-04-21] MEDS: Hydrocortisone 1 % Cream 28.35 GM TUBE 1 APPL TOPICAL (21:53)
[2022-04-22] MEDS: Acetaminophen 325 MG TABLET 650 MG PO (03:46)
[2022-04-22] MEDS: hydrOXYzine HCL 25 MG TABLET PO ×2 (04:59→21:07)
[2022-04-22 06:00] VITALS: BP 154/74; PULSE 82; RESP 18; TEMP 36.7; O2SAT 94
[2022-04-22] MEDS: Omeprazole 20 MG CAPSULE.DR PO (06:21)
[2022-04-22] MEDS: amLODIPine Besylate 5 MG TABLET PO (09:42)
[2022-04-22] MEDS: Torsemide 20 MG TABLET PO (09:42)
[2022-04-22] MEDS: metFORMIN HCl ER 500 MG TAB.ER.24H PO (09:42)
[2022-04-22] MEDS: Divalproex Sodium 500 MG TABLET.DR PO ×2 (09:42→21:06)
--- NOTE | 2022-04-22 15:24 | P.CONHOSP_ITS ---
History of Present Illness Data of Consult Service Date: 04/22/22 Requesting physician: Praful Kaur Primary Care Provider: Unknown Physician HPI Reason for consult: leg edema/question cellulitis routine consult for bilateral lower extremity edema and question of cellulitis. Resident states longstanding history of lower extremity edema for which she takes torsemide but had only been getting it p.r.n. since admission. She also notes skin tear right abreu which has some drainage and surrounding redness Review of Systems Review of Systems: denies chest pain Denies shortness of breath Denies fever chills PMFSH Medical History Bipolar 1 disorder Breast cancer Cognitive disorder Depression Diabetes DVT (deep venous thrombosis) Gait disorder GERD (gastroesophageal reflux disease) Hand weakness HTN (hypertension) Hyperlipidemia Obesity TIA (transient ischemic attack) Tremors of nervous system Wheezing Family History Brother Alcohol abuse Polio Brother Cancer Sister Stroke Mother HTN (hypertension) Sister Cancer Surgical History H/O mastectomy Social History Household Members: None Housing: Apartment Do you presently have visiting nurse or other home services: Yes Unable to assess alcohol history related to: Refusing to respond Alcohol intake: current Alcohol type: wine Patient Tobacco Use Status: Former Tobacco user Quit Date: 11 years Tobacco use type: Cigarette Years Smoked: 30 Smoked in Last 30 Days: No e-Cigarette/Vaping Use: Former Use Patient Interested in Nicotine Replacement: No Patient Given Instructions on How to Stop Smoking: No Second Hand Smoke Exposure: No Use of substances other than those prescribed or required for medical reasons: Refusing to respond Currently Displaying Signs/Symptoms of Drug Intoxication Withdrawal: No Advance Directives: No Advance Directives Information Provided: Yes Do you have thoughts of harming others: None Do you have a plan to hurt others: No Plan Recently lost weight without trying: Unsure Nutrition Risks: No Nutritional Risk Patient : No : No Poor oral hygiene: No service: No Sexual orientation: Straight/Heterosexual Meds Allergies Allergy/AdvReac Type Severity Reaction Status Date / Time No Known Allergies Allergy Verified 10/22/21 10:21 [No Known Allergies*] Active Medications: Current Medications Acetaminophen (Acetaminophen 325 Mg Tablet) 650 mg PO Q6H PRN PRN Reason: Headache/Pain Mild Scale (1-3) Last Admin: 04/22/22 03:46 Dose: 650 mg Al Hydroxide/Mg Hydroxide (Magnesium Hydrox/Alum Hydrox 30 Ml Oral.Susp) 30 ml PO Q6H PRN PRN Reason: Heartburn/Nausea Amlodipine Besylate (Amlodipine Besylate 5 Mg Tablet) 5 mg PO DAILY [facility]; Protocol Last Admin: 04/22/22 09:42 Dose: 5 mg Divalproex Sodium (Divalproex Sodium 500 Mg Tablet.) 500 mg PO BID [facility] Last Admin: 04/22/22 09:42 Dose: 500 mg Hydrocortisone (Hydrocortisone 1 % Cream 28.35 Gm Tube) 1 appl TOPICAL BID PRN PRN Reason: itchiness Last Admin: 04/21/22 21:53 Dose: 1 appl Hydroxyzine HCl (Hydroxyzine Hcl 25 Mg Tablet) 25 mg PO Q6H PRN PRN Reason: Anxiety Last Admin: 04/22/22 04:59 Dose: 25 mg Magnesium Hydroxide (Milk Of Magnesia 30 Ml Oral.Susp) 30 ml PO DAILY PRN PRN Reason: Constipation Metformin HCl (Metformin Hcl Er 500 Mg Tab.Er.24h) 500 mg PO DAILY [facility] Last Admin: 04/22/22 09:42 Dose: 500 mg Olanzapine (Olanzapine 2.5 Mg Tablet) 2.5 mg PO BEDTIME [facility] Last Admin: 04/21/22 20:34 Dose: 2.5 mg Omeprazole (Omeprazole 20 Mg Capsule.) 20 mg PO DAILY@0630 [facility] Last Admin: 04/22/22 06:21 Dose: 20 mg Torsemide (Torsemide 20 Mg Tablet) 20 mg PO DAILY [facility]; Protocol Last Admin: 04/22/22 09:42 Dose: 20 mg Trazodone HCl (Trazodone Hcl 50 Mg Tablet) 50 mg PO BEDTIME PRN PRN Reason: Insomnia Home Medications Medication Instructions Recorded Confirmed Last Taken Type blood sugar diagnostic (Yo #10 ea 10/22/21 04/17/22 Unknown History Lite Strips) amlodipine 5 mg tablet 1 tab PO DAILY 04/16/22 04/16/22 Unknown History divalproex 500 mg tablet,delayed 1 tab PO BID 04/16/22 04/16/22 Unknown History release lamotrigine 25 mg tablet 2 tab PO BID 04/16/22 04/16/22 Unknown History metformin 500 mg tablet,extended 1 tab PO DAILY 04/16/22 04/16/22 Unknown History release 24 hr olanzapine 2.5 mg tablet 1 tab PO BEDTIME 04/16/22 04/16/22 Unknown History omeprazole 20 mg capsule,delayed 1 cap PO DAILY@0600 04/16/22 04/17/22 Unknown History release torsemide 20 mg tablet 1 tab PO DAILY PRN swelling 04/16/22 04/16/22 Unknown History Physical Exam Vital Signs and Narrative: Vital Signs: Last Vital Signs Temp 97.1 F 04/21/22 18:00 Pulse 94 04/21/22 18:00 Resp 17 04/21/22 18:00 BP 158/79 H 04/21/22 18:00 Pulse Ox 98 04/21/22 18:00 O2 Del Method 04/21/22 18:00 BMI result Body Mass Index 29.8 Const: Other: awake no acute distress Resp: Other: clear to auscultation bilaterally no rales rhonchi o Cardio: Other: no S4; positive S1-S2; no S3 murmurs rubs gallops GI: Other: soft nontender nondistended with normoactive bowel sounds Neuro: Other: cranial nerves 2-12 grossly intact as tested. Motor is 5/5 all extremities. Sensation is intact Extrem: Other: bilateral lower extremity edema. mild erythema around skin tear right lower extremity Results Labs CBC and Chem 7: 04/17/22 10:49 04/18/22 07:57 Assessment and Plan (1) Lower extremity edema: Status: Acute (2) Cellulitis and abscess of left leg: Status: Acute Plan 77-year-old female with a known history of lower extremity edema previously on torsemide developed rebound edema secondary to p.r.n. dosing. Also, mild erythema around skin tear right abreu 1. lower extremity edema.. this is longstanding problem for which she has taken torsemide daily. Torsemide was restarted daily and should continue. 2. Cellulitis - doxycycline 100 b.i.d. for 7 days
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
[2022-04-22] MEDS: OLANZapine 2.5 MG TABLET PO (21:06)
[2022-04-22 22:49] VITALS: BP 137/63; RESP 16; TEMP 36.6
[2022-04-23 09:39] LABS: D Dimer High Sensitivity 532 NG/ML
[2022-04-23 09:46] LABS: B Type Natriuretic Peptide < 10 pg/mL (<100)
[2022-04-23 09:57] LABS: Valproate 62.1 mcg/mL (50.0-100.0)
[2022-04-23] MEDS: amLODIPine Besylate 5 MG TABLET PO (10:25)
[2022-04-23] MEDS: Divalproex Sodium 500 MG TABLET.DR PO ×2 (10:25→20:01)
[2022-04-23] MEDS: metFORMIN HCl ER 500 MG TAB.ER.24H PO (10:25)
[2022-04-23] MEDS: Torsemide 20 MG TABLET PO (10:26)
[2022-04-23] MEDS: Omeprazole 20 MG CAPSULE.DR PO (10:26)
[2022-04-23 18:00] VITALS: BP 136/78; PULSE 92; RESP 20; TEMP 36.4; O2SAT 96
[2022-04-23] MEDS: OLANZapine 2.5 MG TABLET PO (20:01)
--- NOTE | 2022-04-23 21:51 | HO.PSYCHPN ---
Subjective Subjective Date of Service: 04/23/22 Reason For Visit: Psychosis Subjective Notes: [place] Warning and Conditional Voluntary Healthcare Proxy: No Guardianship: No Medical Problems Affecting Mental Status: No Interim History: I spoke with pt's team. SW working on obtaining VNA services, pt agreeable to med communications planner. Pt has mild cognitive impairment, needs help with med administration. Reviewed BNP, d-dimer, venous duplex- wnl. VPA level 62.1. I spoke with pt this evening, she says she wants her sister to not be her guardian and that she contacted her yard jacker. Complains of unit being cold and does not like that she can't get coffee until 7:30am. Expresses some insight into her derailment, will make comments such as this is off the track. Sleep onset delayed, waking up early. Pt continues to present with mild agitation, pressured speech. Cites multiple needs that are not relevant i.e. needs a new phone and recliner. Mood is Im fine but im frustrated. Does not want med changes. Medication Compliance: Yes Side effects from medications: No Attending Groups: Intermittent Review of Systems Acute medical concerns: No Medical Review of Systems: unchanged Mental Status Exam Mental Status Exam Narrative: Patient Appearance: Appropriate (On hospital gowns) Patient Orientation: Person, Place and Situation Level of Consciousness: Awake Patient Behavior: Guarded and Hyperactive Mood Description: Hostile Affect Description: Labile Patient Cognition Impaired: Yes Ability to Follow Directions: Fair Speech Pattern: Clear Hallucinations: None Delusions: Grandiose Thought Process: Racing Thought Content: positive for [place], positive for Loose Associations and positive for Logical Judgment: Poor Diagnostics Vital Signs (24Hr): Vital Signs - 24 hr 04/22/22 22:49 04/23/22 18:00 Temperature 97.8 F 97.6 F Pulse Rate 92 Respiratory Rate 16 20 Blood Pressure 137/63 136/78 Pulse Oximetry 96 Oxygen Delivery Method Room Air Room Air Fraction of Inspired Oxygen 98 BMI result Body Mass Index 29.8 Labs Results: 04/17/22 10:49 04/18/22 07:57 Labs: Laboratory Results - last 48 hr 04/23/22 04/23/22 04/23/22 09:15 09:15 09:15 D-Dimer High Sensitivty 532 B-Natriuretic Peptide < 10 Valproic Acid 62.1 Imaging Radiology Impressions: ITS Impressions Venous Duplex 04/23/22 14:10 IMPRESSION: No DVT demonstrated in the bilateral lower extremities. Medications Medications Current Medications Acetaminophen (Acetaminophen 325 Mg Tablet) 650 mg PO Q6H PRN PRN Reason: Headache/Pain Mild Scale (1-3) Last Admin: 04/22/22 03:46 Dose: 650 mg Al Hydroxide/Mg Hydroxide (Magnesium Hydrox/Alum Hydrox 30 Ml Oral.Susp) 30 ml PO Q6H PRN PRN Reason: Heartburn/Nausea Amlodipine Besylate (Amlodipine Besylate 5 Mg Tablet) 5 mg PO DAILY [facility]; Protocol Last Admin: 04/23/22 10:25 Dose: 5 mg Divalproex Sodium (Divalproex Sodium 500 Mg Tablet.) 500 mg PO BID [facility] Last Admin: 04/23/22 20:01 Dose: 500 mg Doxycycline Hyclate (Doxycycline Hyclate 100 Mg Tablet) 100 mg PO Q12H [facility] Stop: 04/29/22 09:01 Last Admin: 04/23/22 20:02 Dose: 100 mg Hydrocortisone (Hydrocortisone 1 % Cream 28.35 Gm Tube) 1 appl TOPICAL BID PRN PRN Reason: itchiness Last Admin: 04/21/22 21:53 Dose: 1 appl Hydroxyzine HCl (Hydroxyzine Hcl 25 Mg Tablet) 25 mg PO Q6H PRN PRN Reason: Anxiety Last Admin: 04/22/22 21:07 Dose: 25 mg Magnesium Hydroxide (Milk Of Magnesia 30 Ml Oral.Susp) 30 ml PO DAILY PRN PRN Reason: Constipation Metformin HCl (Metformin Hcl Er 500 Mg Tab.Er.24h) 500 mg PO DAILY [facility] Last Admin: 04/23/22 10:25 Dose: 500 mg Olanzapine (Olanzapine 2.5 Mg Tablet) 2.5 mg PO BEDTIME [facility] Last Admin: 04/23/22 20:01 Dose: 2.5 mg Omeprazole (Omeprazole 20 Mg Capsule.) 20 mg PO DAILY@0630 [facility] Last Admin: 04/23/22 10:26 Dose: 20 mg Torsemide (Torsemide 20 Mg Tablet) 20 mg PO DAILY [facility]; Protocol Last Admin: 04/23/22 10:26 Dose: 20 mg Trazodone HCl (Trazodone Hcl 50 Mg Tablet) 50 mg PO BEDTIME PRN PRN Reason: Insomnia Allergies Allergies Allergy/AdvReac Type Severity Reaction Status Date / Time No Known Allergies Allergy Verified 10/22/21 10:21 [No Known Allergies*] Assessment & Plan Assessment & Plan (1) Lower extremity edema: Status: Acute Code(s): R60.0 - Localized edema (2) Cellulitis and abscess of left leg: Status: Acute Code(s): L03.116 - Cellulitis of left lower limb; L02.416 - Cutaneous abscess of left lower limb Plan 77 y.o. female with a long history of bipolar disorder who was stable for more than 32 years old lithium, recently discontinued due to renal problems with manic symptoms elicited by flight of ideas, racing thoughts, disorganized behavior and increased irritability.? She was referred to the emergency room by the VNA for assessment.?Seen by hospitalist for LE edema. Previously on torsemide developed rebound edema secondary to p.r.n. dosing. Also, mild erythema around skin tear right abreu. Started on doxycycline 100 b.i.d. for 7 days for cellulitis. Plan 1. Gather collateral information.? 2. Continue with regular medications prescribed before.? 3. Start Zyprexa 2.5 mg p.o. q.h.s. as a mood stabilizer. 4. Continue medical workup for 04/18/22 stop lamictal cont depakote get records [facility] 04/19/2022 [facility] records reviewed patient had been treated for UTI Lamictal had been discontinued patient was on Depakote 04/20: Continue current regimen and plans 04/21: Continue current regimen and plans.? Change diuretic to daily use from p.r.n. 77-year-old female with a known history of lower extremity edema 04/22: No medication changes, will obtain VPA level 04/23: VPA level 62.1, declines med adjustments despite continuing to present as hypomanic I spent minutes with the patient and/or on the patient floor today, greater than?50% of which was spent counseling/coordinating care. Patient educated on: diagnosis, medication risk/benefits and therapeutic strategies Reason for contiued inpatient stay Substantial Risk for: rapid decompensation and med/psych decompensation
[2022-04-23] MEDS: Acetaminophen 325 MG TABLET 650 MG PO (22:11)
[2022-04-23] MEDS: Hydrocortisone 1 % Cream 28.35 GM TUBE 1 APPL TOPICAL (22:13)
[2022-04-24] MEDS: Omeprazole 20 MG CAPSULE.DR PO (06:05)
[2022-04-24 07:45] VITALS: BP 141/81; PULSE 89; RESP 17; TEMP 36.2; O2SAT 95
[2022-04-24] MEDS: amLODIPine Besylate 5 MG TABLET PO (08:09)
[2022-04-24] MEDS: Divalproex Sodium 500 MG TABLET.DR PO ×2 (08:10→20:34)
[2022-04-24] MEDS: metFORMIN HCl ER 500 MG TAB.ER.24H PO (08:10)
[2022-04-24] MEDS: Torsemide 20 MG TABLET PO (08:11)
--- NOTE | 2022-04-24 16:40 | HO.PSYCHPN ---
Subjective Subjective Date of Service: 04/24/22 Reason For Visit: Psychosis Subjective Notes: Hanson Warning and Conditional Voluntary Interim History: I spoke with pt's team. Pt gave permission to talk with her nephew. Will need new VNA, as previous VNA will not take her back due to her agitated behaviors. I spoke with pt this evening, she is derailed/ circumstantial. Somewhat paranoid, says she thinks a nurse mentioned mcc to her, talks about how she had all the career development engineer in my house, now wants to move as she feels embarrassed. Says she has lost jobs due to interpersonal issues. She does admit to being agitated and not concentrating, notices she needs to re-read the same chapter in her book and she is pacing more, willing to trial an increased dose of zyprexa to 5 mg HS. Says she is in shock about the clarity without lithium. Continues to present with hypomania but has some insight. Medication Compliance: Yes Side effects from medications: No Attending Groups: Intermittent Review of Systems Acute medical concerns: No Medical Review of Systems: unchanged Mental Status Exam Mental Status Exam Narrative: Patient Appearance: Appropriate (On hospital gowns) Patient Orientation: Person, Place and Situation Level of Consciousness: Awake Patient Behavior: Guarded and Hyperactive Mood Description: Hostile Affect Description: Labile Patient Cognition Impaired: Yes Ability to Follow Directions: Fair Speech Pattern: Clear Hallucinations: None Delusions: Grandiose Thought Process: Racing Thought Content: positive for [place], positive for Loose Associations and positive for Logical Judgment: Poor Diagnostics Vital Signs (24Hr): Vital Signs - 24 hr 04/23/22 18:00 04/24/22 07:45 Temperature 97.6 F 97.1 F Pulse Rate 92 89 Respiratory Rate 20 17 Blood Pressure 136/78 141/81 H Pulse Oximetry 96 95 Oxygen Delivery Method Room Air Room Air BMI result Body Mass Index 29.8 Labs Results: 04/17/22 10:49 04/18/22 07:57 Labs: Laboratory Results - last 48 hr 04/23/22 04/23/22 04/23/22 09:15 09:15 09:15 D-Dimer High Sensitivty 532 B-Natriuretic Peptide < 10 Valproic Acid 62.1 Imaging Radiology Impressions: ITS Impressions Venous Duplex 04/23/22 14:10 IMPRESSION: No DVT demonstrated in the bilateral lower extremities. Medications Medications Current Medications Acetaminophen (Acetaminophen 325 Mg Tablet) 650 mg PO Q6H PRN PRN Reason: Headache/Pain Mild Scale (1-3) Last Admin: 04/23/22 22:11 Dose: 650 mg Al Hydroxide/Mg Hydroxide (Magnesium Hydrox/Alum Hydrox 30 Ml Oral.Susp) 30 ml PO Q6H PRN PRN Reason: Heartburn/Nausea Amlodipine Besylate (Amlodipine Besylate 5 Mg Tablet) 5 mg PO DAILY [facility]; Protocol Last Admin: 04/24/22 08:09 Dose: 5 mg Divalproex Sodium (Divalproex Sodium 500 Mg Tablet.) 500 mg PO BID [facility] Last Admin: 04/24/22 08:10 Dose: 500 mg Doxycycline Hyclate (Doxycycline Hyclate 100 Mg Tablet) 100 mg PO Q12H [facility] Stop: 04/29/22 09:01 Last Admin: 04/24/22 08:10 Dose: 100 mg Hydrocortisone (Hydrocortisone 1 % Cream 28.35 Gm Tube) 1 appl TOPICAL BID PRN PRN Reason: itchiness Last Admin: 04/23/22 22:13 Dose: 1 appl Hydroxyzine HCl (Hydroxyzine Hcl 25 Mg Tablet) 25 mg PO Q6H PRN PRN Reason: Anxiety Last Admin: 04/22/22 21:07 Dose: 25 mg Magnesium Hydroxide (Milk Of Magnesia 30 Ml Oral.Susp) 30 ml PO DAILY PRN PRN Reason: Constipation Metformin HCl (Metformin Hcl Er 500 Mg Tab.Er.24h) 500 mg PO DAILY [facility] Last Admin: 04/24/22 08:10 Dose: 500 mg Olanzapine (Olanzapine 2.5 Mg Tablet) 2.5 mg PO BEDTIME [facility] Last Admin: 04/23/22 20:01 Dose: 2.5 mg Omeprazole (Omeprazole 20 Mg Capsule.) 20 mg PO DAILY@0630 [facility] Last Admin: 04/24/22 06:05 Dose: 20 mg Torsemide (Torsemide 20 Mg Tablet) 20 mg PO DAILY [facility]; Protocol Last Admin: 04/24/22 08:11 Dose: 20 mg Trazodone HCl (Trazodone Hcl 50 Mg Tablet) 50 mg PO BEDTIME PRN PRN Reason: Insomnia Allergies Allergies Allergy/AdvReac Type Severity Reaction Status Date / Time No Known Allergies Allergy Verified 10/22/21 10:21 [No Known Allergies*] Assessment & Plan Assessment & Plan (1) Lower extremity edema: Status: Acute Code(s): R60.0 - Localized edema (2) Cellulitis and abscess of left leg: Status: Acute Code(s): L03.116 - Cellulitis of left lower limb; L02.416 - Cutaneous abscess of left lower limb Plan 77 y.o. female with a long history of bipolar disorder who was stable for more than 34 years old lithium, recently discontinued due to renal problems with manic symptoms elicited by flight of ideas, racing thoughts, disorganized behavior and increased irritability.? She was referred to the emergency room by the VNA for assessment.?Seen by hospitalist for LE edema. Previously on torsemide developed rebound edema secondary to p.r.n. dosing. Also, mild erythema around skin tear right abreu. Started on doxycycline 100 b.i.d. for 7 days for cellulitis. Plan 1. Gather collateral information.? 2. Continue with regular medications prescribed before.? 3. Start Zyprexa 2.5 mg p.o. q.h.s. as a mood stabilizer. 4. Continue medical workup for 04/18/22 stop lamictal cont depakote get records [facility] 04/19/2022 [facility] records reviewed patient had been treated for UTI Lamictal had been discontinued patient was on Depakote 04/20: Continue current regimen and plans 04/21: Continue current regimen and plans.? Change diuretic to daily use from p.r.n. 77-year-old female with a known history of lower extremity edema 04/22: No medication changes, will obtain VPA level 04/23: VPA level 62.1, declines med adjustments despite continuing to present as hypomanic I spent minutes with the patient and/or on the patient floor today, greater than?50% of which was spent counseling/coordinating care. Patient educated on: diagnosis, medication risk/benefits and therapeutic strategies Reason for contiued inpatient stay Substantial Risk for: rapid decompensation and med/psych decompensation
[2022-04-24 19:45] VITALS: BP 139/69; PULSE 89; RESP 18; TEMP 36.2; O2SAT 97
[2022-04-24] MEDS: OLANZapine 5 MG TABLET PO (20:34)
[2022-04-24] MEDS: hydrOXYzine HCL 25 MG TABLET PO (21:26)
[2022-04-24] MEDS: Acetaminophen 325 MG TABLET 650 MG PO (21:26)
[2022-04-24] MEDS: Hydrocortisone 1 % Cream 28.35 GM TUBE 1 APPL TOPICAL (23:25)
[2022-04-25] MEDS: Omeprazole 20 MG CAPSULE.DR PO (06:23)
[2022-04-25 07:45] VITALS: BP 178/77; PULSE 76; RESP 16; TEMP 36.3; O2SAT 97
[2022-04-25] MEDS: metFORMIN HCl ER 500 MG TAB.ER.24H PO (08:10)
[2022-04-25] MEDS: Divalproex Sodium 500 MG TABLET.DR PO ×2 (08:10→20:26)
[2022-04-25] MEDS: amLODIPine Besylate 5 MG TABLET PO (08:10)
[2022-04-25] MEDS: Torsemide 20 MG TABLET PO (08:11)
[2022-04-25 16:38] VITALS: BMI 27.3
--- NOTE | 2022-04-25 16:49 | P.PNPSI_ITS ---
Subjective Subjective Date of Service: 04/25/22 Reason For Visit: Psychosis Subjective Notes: Hanson Warning and Conditional Voluntary Interim History: I spoke with pt's team, SW was able to obtain a new PCP and don psychiatric social worker for OP psych services. Pt refused her VALERIE stockings. I spoke with pt and she is still pressured, derailed, but less agitated. Says Im done with people telling me what to do. Derailed, tangential, overly familiar i.e. talks to me about things as if I know the people or situations. Complains of the cold. Reading books. Mood is better. Still has some insight, says I still probably talk too much. Mental Status Exam Mental Status Exam Narrative: Patient Appearance: Appropriate (On hospital gowns) Patient Orientation: Person, Place and Situation Level of Consciousness: Awake Patient Behavior: Guarded and Hyperactive Mood Description: Hostile Affect Description: Labile Patient Cognition Impaired: Yes Ability to Follow Directions: Fair Speech Pattern: Clear Hallucinations: None Delusions: Grandiose Thought Process: Racing Thought Content: positive for [place], positive for Loose Associations and positive for Logical Judgment: Poor Diagnostics Vital Signs (24Hr): Vital Signs - 24 hr 04/24/22 19:45 04/25/22 07:45 Temperature 97.1 F 97.3 F Pulse Rate 89 76 Respiratory Rate 18 16 Blood Pressure 139/69 178/77 H Pulse Oximetry 97 97 Oxygen Delivery Method Room Air Room Air BMI result Body Mass Index 27.3 Labs Results: 04/17/22 10:49 04/18/22 07:57 Imaging Radiology Impressions: ITS Impressions Venous Duplex 04/23/22 14:10 IMPRESSION: No DVT demonstrated in the bilateral lower extremities. Medications Medications Current Medications Acetaminophen (Acetaminophen 325 Mg Tablet) 650 mg PO Q6H PRN PRN Reason: Headache/Pain Mild Scale (1-3) Last Admin: 04/24/22 21:26 Dose: 650 mg Al Hydroxide/Mg Hydroxide (Magnesium Hydrox/Alum Hydrox 30 Ml Oral.Susp) 30 ml PO Q6H PRN PRN Reason: Heartburn/Nausea Amlodipine Besylate (Amlodipine Besylate 5 Mg Tablet) 5 mg PO DAILY [facility]; Protocol Last Admin: 04/25/22 08:10 Dose: 5 mg Divalproex Sodium (Divalproex Sodium 500 Mg Tablet.) 500 mg PO BID [facility] Last Admin: 04/25/22 08:10 Dose: 500 mg Doxycycline Hyclate (Doxycycline Hyclate 100 Mg Tablet) 100 mg PO Q12H [facility] Stop: 04/29/22 09:01 Last Admin: 04/25/22 08:11 Dose: 100 mg Hydrocortisone (Hydrocortisone 1 % Cream 28.35 Gm Tube) 1 appl TOPICAL BID PRN PRN Reason: itchiness Last Admin: 04/24/22 23:25 Dose: 1 appl Hydroxyzine HCl (Hydroxyzine Hcl 25 Mg Tablet) 25 mg PO Q6H PRN PRN Reason: Anxiety Last Admin: 04/24/22 21:26 Dose: 25 mg Magnesium Hydroxide (Milk Of Magnesia 30 Ml Oral.Susp) 30 ml PO DAILY PRN PRN Reason: Constipation Metformin HCl (Metformin Hcl Er 500 Mg Tab.Er.24h) 500 mg PO DAILY [facility] Last Admin: 04/25/22 08:10 Dose: 500 mg Olanzapine (Olanzapine 5 Mg Tablet) 5 mg PO BEDTIME [facility] Last Admin: 04/24/22 20:34 Dose: 5 mg Omeprazole (Omeprazole 20 Mg Capsule.Dr) 20 mg PO DAILY@0630 [facility] Last Admin: 04/25/22 06:23 Dose: 20 mg Torsemide (Torsemide 20 Mg Tablet) 20 mg PO DAILY [facility]; Protocol Last Admin: 04/25/22 08:11 Dose: 20 mg Trazodone HCl (Trazodone Hcl 50 Mg Tablet) 50 mg PO BEDTIME PRN PRN Reason: Insomnia Allergies Allergies Allergy/AdvReac Type Severity Reaction Status Date / Time No Known Allergies Allergy Verified 10/22/21 10:21 [No Known Allergies*] Assessment & Plan Assessment & Plan (1) Lower extremity edema: Status: Acute Code(s): R60.0 - Localized edema (2) Cellulitis and abscess of left leg: Status: Acute Code(s): L03.116 - Cellulitis of left lower limb; L02.416 - Cutaneous abscess of left lower limb Plan 77 y.o. female with a long history of bipolar disorder who was stable for more than 32 years old lithium, recently discontinued due to renal problems with manic symptoms elicited by flight of ideas, racing thoughts, disorganized behavior and increased irritability.? She was referred to the emergency room by the VNA for assessment.?Seen by hospitalist for LE edema. Previously on torsemide developed rebound edema secondary to p.r.n. dosing. Also, mild erythema around skin tear right abreu. Started on doxycycline 100 b.i.d. for 7 days for cellulitis. Plan 1. Gather collateral information.? 2. Continue with regular medications prescribed before.? 3. Start Zyprexa 2.5 mg p.o. q.h.s. as a mood stabilizer. 4. Continue medical workup for 04/18/22 stop lamictal cont depakote get records [facility] 04/19/2022 [facility] records reviewed patient had been treated for UTI Lamictal had been discontinued patient was on Depakote 04/20: Continue current regimen and plans 04/21: Continue current regimen and plans.? Change diuretic to daily use from p.r.n. 77-year-old female with a known history of lower extremity edema 04/22: No medication changes, will obtain VPA level 04/23: VPA level 62.1, declines med adjustments despite continuing to present as hypomanic 04/24: Increase zyprexa to 5 mg QHS 04/25: No med changes, will monitor for benefit on increased olanzapine I spent minutes with the patient and/or on the patient floor today, greater than?50% of which was spent counseling/coordinating care. Patient educated on: diagnosis, medication risk/benefits and therapeutic strategies Reason for contiued inpatient stay Substantial Risk for: rapid decompensation and med/psych decompensation
[2022-04-25] MEDS: Acetaminophen 325 MG TABLET 650 MG PO ×2 (17:03→22:44)
[2022-04-25 18:00] VITALS: BP 169/76; PULSE 88; RESP 18; TEMP 35.9; O2SAT 97
[2022-04-25] MEDS: OLANZapine 5 MG TABLET PO (20:26)
[2022-04-25] MEDS: Hydrocortisone 1 % Cream 28.35 GM TUBE 1 APPL TOPICAL (22:25)
[2022-04-25] MEDS: traZODone HCL 50 MG TABLET PO (22:40)
[2022-04-25] MEDS: hydrOXYzine HCL 25 MG TABLET PO (22:40)
[2022-04-26] MEDS: Omeprazole 20 MG CAPSULE.DR PO (06:39)
[2022-04-26 08:00] VITALS: BP 147/80; PULSE 93; RESP 14; TEMP 35.9; O2SAT 96
[2022-04-26] MEDS: amLODIPine Besylate 5 MG TABLET PO (08:30)
[2022-04-26] MEDS: Torsemide 20 MG TABLET PO (08:31)
[2022-04-26] MEDS: metFORMIN HCl ER 500 MG TAB.ER.24H PO (08:31)
[2022-04-26] MEDS: Divalproex Sodium 500 MG TABLET.DR PO ×2 (08:37→22:27)
[2022-04-26] MEDS: Acetaminophen 325 MG TABLET 650 MG PO ×2 (16:39→22:29)
[2022-04-26 18:00] VITALS: BP 136/78; PULSE 87; RESP 14; TEMP 36.2; O2SAT 97
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
[2022-04-26] MEDS: OLANZapine 5 MG TABLET PO (22:27)
[2022-04-26] MEDS: hydrOXYzine HCL 25 MG TABLET PO (22:28)
[2022-04-26 23:34] VITALS: BP 140/67; PULSE 84; RESP 16; TEMP 36.4; O2SAT 93
[2022-04-27] MEDS: Omeprazole 20 MG CAPSULE.DR PO (06:28)
--- NOTE | 2022-04-27 09:17 | HO.PSYCHPN ---
Subjective Subjective Date of Service: 04/27/22 Reason For Visit: Psychosis Subjective Notes: Hanson Warning and Conditional Voluntary Healthcare Proxy: No Guardianship: No Medical Problems Affecting Mental Status: No Interim History: I spoke with pt's team. Yesterday T/W attempted to call her PCP and left extensive VM, as per SW her PCP would like her to have 24 hour care in order to continue her medications, which is not clinically indicated or recommended as pt is accepting of VNA, [employer]CH[employer], and meals on wheels and wants referral for OP therapy. Pt has been elevating her legs, shows good judgment, using benadryl and says it is helping pruritis. Has been reading short stories. She still complains of feeling cold but says she is able to relax and sleep. She notices she is resting more today. Sleep is good. My mind is quieter. Medication Compliance: Yes Side effects from medications: No Attending Groups: Yes Review of Systems Acute medical concerns: No Medical Review of Systems: unchanged Mental Status Exam Mental Status Exam Narrative: Patient Appearance: Appropriate (On hospital gowns) Patient Orientation: Person, Place and Situation Level of Consciousness: Awake Patient Behavior: Guarded and Hyperactive Mood Description: Hostile Affect Description: Labile Patient Cognition Impaired: Yes Ability to Follow Directions: Fair Speech Pattern: Clear Hallucinations: None Delusions: Grandiose Thought Process: Racing Thought Content: positive for [place], positive for Loose Associations and positive for Logical Judgment: Poor Diagnostics Vital Signs (24Hr): Vital Signs - 24 hr 04/26/22 18:00 04/26/22 23:34 Temperature 97.1 F 97.6 F Pulse Rate 87 84 Respiratory Rate 14 16 Blood Pressure 136/78 140/67 H Pulse Oximetry 97 93 Oxygen Delivery Method Room Air Room Air BMI result Body Mass Index 27.3 Labs Results: 04/17/22 10:49 04/28/22 09:23 Imaging Radiology Impressions: ITS Impressions Venous Duplex 04/23/22 14:10 IMPRESSION: No DVT demonstrated in the bilateral lower extremities. Medications Medications Current Medications Acetaminophen (Acetaminophen 325 Mg Tablet) 650 mg PO Q6H PRN PRN Reason: Headache/Pain Mild Scale (1-3) Last Admin: 04/26/22 22:29 Dose: 650 mg Al Hydroxide/Mg Hydroxide (Magnesium Hydrox/Alum Hydrox 30 Ml Oral.Susp) 30 ml PO Q6H PRN PRN Reason: Heartburn/Nausea Amlodipine Besylate (Amlodipine Besylate 5 Mg Tablet) 5 mg PO DAILY [facility]; Protocol Last Admin: 04/26/22 08:30 Dose: 5 mg Divalproex Sodium (Divalproex Sodium 500 Mg Tablet.Dr) 500 mg PO BID [facility] Last Admin: 04/26/22 22:27 Dose: 500 mg Doxycycline Hyclate (Doxycycline Hyclate 100 Mg Tablet) 100 mg PO Q12H [facility] Stop: 04/29/22 09:01 Last Admin: 04/26/22 22:27 Dose: 100 mg Hydrocortisone (Hydrocortisone 1 % Cream 28.35 Gm Tube) 1 appl TOPICAL BID PRN PRN Reason: itchiness Last Admin: 04/25/22 22:25 Dose: 1 appl Hydroxyzine HCl (Hydroxyzine Hcl 25 Mg Tablet) 25 mg PO Q6H PRN PRN Reason: Anxiety Last Admin: 04/26/22 22:28 Dose: 25 mg Magnesium Hydroxide (Milk Of Magnesia 30 Ml Oral.Susp) 30 ml PO DAILY PRN PRN Reason: Constipation Metformin HCl (Metformin Hcl Er 500 Mg Tab.Er.24h) 500 mg PO DAILY [facility] Last Admin: 04/26/22 08:31 Dose: 500 mg Olanzapine (Olanzapine 5 Mg Tablet) 5 mg PO BEDTIME [facility] Last Admin: 04/26/22 22:27 Dose: 5 mg Omeprazole (Omeprazole 20 Mg Capsule.Dr) 20 mg PO DAILY@0630 [facility] Last Admin: 04/27/22 06:28 Dose: 20 mg Torsemide (Torsemide 20 Mg Tablet) 20 mg PO DAILY [facility]; Protocol Last Admin: 04/26/22 08:31 Dose: 20 mg Trazodone HCl (Trazodone Hcl 50 Mg Tablet) 50 mg PO BEDTIME PRN PRN Reason: Insomnia Last Admin: 04/25/22 22:40 Dose: 50 mg Allergies Allergies Allergy/AdvReac Type Severity Reaction Status Date / Time No Known Allergies Allergy Verified 10/22/21 10:21 [No Known Allergies*] Assessment & Plan Assessment & Plan (1) Lower extremity edema: Status: Acute Code(s): R60.0 - Localized edema (2) Cellulitis and abscess of left leg: Status: Acute Code(s): L03.116 - Cellulitis of left lower limb; L02.416 - Cutaneous abscess of left lower limb Plan 77 y.o. female with a long history of bipolar disorder who was stable for more than 32 years old lithium, recently discontinued due to renal problems with manic symptoms elicited by flight of ideas, racing thoughts, disorganized behavior and increased irritability.? She was referred to the emergency room by the VNA for assessment.?Seen by hospitalist for LE edema. Previously on torsemide developed rebound edema secondary to p.r.n. dosing. Also, mild erythema around skin tear right abreu. Started on doxycycline 100 b.i.d. for 7 days for cellulitis. Plan 1. Gather collateral information.? 2. Continue with regular medications prescribed before.? 3. Start Zyprexa 2.5 mg p.o. q.h.s. as a mood stabilizer. 4. Continue medical workup for 04/18/22 stop lamictal cont depakote get records [facility] 04/19/2022 [facility] records reviewed patient had been treated for UTI Lamictal had been discontinued patient was on Depakote 04/20: Continue current regimen and plans 04/21: Continue current regimen and plans.? Change diuretic to daily use from p.r.n. 77-year-old female with a known history of lower extremity edema 04/22: No medication changes, will obtain VPA level 04/23: VPA level 62.1, declines med adjustments despite continuing to present as hypomanic 04/24: Increase zyprexa to 5 mg QHS 04/25: No med changes, will monitor for benefit on increased olanzapine 04/26: Contacted PCP, Dr. Dillon, to discuss discharge planning 04/27: continue medications, no changes I spent minutes with the patient and/or on the patient floor today, greater than?50% of which was spent counseling/coordinating care. Patient educated on: diagnosis, medication risk/benefits and therapeutic strategies Reason for contiued inpatient stay Substantial Risk for: med/psych decompensation
[2022-04-27] MEDS: Torsemide 20 MG TABLET PO (10:04)
[2022-04-27] MEDS: Divalproex Sodium 500 MG TABLET.DR PO (10:04)
[2022-04-27] MEDS: metFORMIN HCl ER 500 MG TAB.ER.24H PO (10:04)
[2022-04-27] MEDS: amLODIPine Besylate 5 MG TABLET PO (10:05)
[2022-04-27] MEDS: Hydrocortisone 1 % Cream 28.35 GM TUBE 1 APPL TOPICAL ×2 (10:28→22:19)
[2022-04-27] MEDS: hydrOXYzine HCL 25 MG TABLET PO ×3 (10:28→22:19)
--- NOTE | 2022-04-27 14:46 | PC.NURSE ---
Patient refused compression stockings reporting increase in swelling and itching after wearing them. Teaching provided about elevating legs and monitoring for edema.
--- NOTE | 2022-04-27 15:20 | HE.PHANOTE ---
HOLLY Pittman called to have Divalproex DR 500 mg tablets switch to 250 mg tablet. Patient having difficulty swallowing the large tablets and would prefer to take more small tablets. Coni Sloan, PascualD
[2022-04-27] MEDS: Acetaminophen 325 MG TABLET 650 MG PO ×2 (15:45→22:59)
[2022-04-27 18:00] VITALS: BP 138/69; PULSE 88; RESP 17; TEMP 36; O2SAT 95
[2022-04-27] MEDS: OLANZapine 5 MG TABLET PO (21:04)
[2022-04-27] MEDS: Divalproex Sodium 250 MG TABLET.DR 500 MG PO (21:04)
[2022-04-27] MEDS: Magnesium Hydrox/Alum Hydrox 30 ML ORAL.SUSP PO (22:59)
[2022-04-28 08:13] VITALS: BP 152/85; PULSE 83; RESP 17; TEMP 35.8; O2SAT 93
[2022-04-28] MEDS: Divalproex Sodium 250 MG TABLET.DR 500 MG PO ×2 (08:14→22:41)
[2022-04-28] MEDS: hydrOXYzine HCL 25 MG TABLET PO ×3 (08:14→22:42)
[2022-04-28] MEDS: amLODIPine Besylate 5 MG TABLET PO (08:15)
[2022-04-28] MEDS: Omeprazole 20 MG CAPSULE.DR PO (08:15)
[2022-04-28] MEDS: metFORMIN HCl ER 500 MG TAB.ER.24H PO (08:15)
[2022-04-28] MEDS: Torsemide 20 MG TABLET PO (08:15)
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
[2022-04-28 11:08] LABS: Creatinine Clr Calc Pharmacy 32.2; Estimated Glomerular Filt Rate 32
[2022-04-28 18:00] VITALS: BP 143/67; PULSE 82; RESP 16; TEMP 36.1; O2SAT 93
[2022-04-28] MEDS: Acetaminophen 325 MG TABLET 650 MG PO (22:40)
[2022-04-28] MEDS: OLANZapine 5 MG TABLET PO (22:42)
[2022-04-28] MEDS: Hydrocortisone 1 % Cream 28.35 GM TUBE 1 APPL TOPICAL (22:43)
[2022-04-29 06:00] VITALS: BP 151/71; PULSE 90; RESP 17; TEMP 35.9; O2SAT 94
[2022-04-29] MEDS: Omeprazole 20 MG CAPSULE.DR PO (08:25)
[2022-04-29] MEDS: Torsemide 20 MG TABLET PO (08:25)
[2022-04-29] MEDS: metFORMIN HCl ER 500 MG TAB.ER.24H PO (08:25)
[2022-04-29] MEDS: Divalproex Sodium 250 MG TABLET.DR 500 MG PO ×2 (08:25→19:41)
[2022-04-29] MEDS: amLODIPine Besylate 5 MG TABLET PO (08:25)
--- NOTE | 2022-04-29 13:38 | P.PNPSI_ITS ---
Subjective Subjective Date of Service: 04/29/22 Reason For Visit: Psychosis Subjective Notes: Hanson Warning and Conditional Voluntary Healthcare Proxy: No Guardianship: No Medical Problems Affecting Mental Status: No Interim History: I spoke with pt's team, she is visible, talkative. I spoke with pt, she asks for aleve, takes this at home for stiffness, will do one time dose as pt has CKD. 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 She does appear much more organized today, focused, less derailed. Sleeping well. Says it is hard for her that no family visited her on day. Mental Status Exam Mental Status Exam Narrative: Patient Appearance: Appropriate Patient Orientation: Person, Place and Situation Level of Consciousness: Awake Patient Behavior: calmer, cooperative Mood Description: calmer Affect Description: euthymic Patient Cognition Impaired: Yes Ability to Follow Directions: Fair Speech Pattern: Clear Hallucinations: None Delusions: improving Thought Process: more goal directed Thought Content: somatic complaints Judgment: Poor Diagnostics Vital Signs (24Hr): Vital Signs - 24 hr 04/28/22 18:00 04/29/22 06:00 Temperature 97 F 96.6 F L Pulse Rate 82 90 Respiratory Rate 16 17 Blood Pressure 143/67 H 151/71 H Pulse Oximetry 93 94 Oxygen Delivery Method Room Air Room Air BMI result Body Mass Index 27.3 Labs Results: 04/17/22 10:49 04/28/22 09:23 Labs: Laboratory Results - last 48 hr 04/28/22 09:23 Creatinine 1.58 H Estim Creat Clear Calc 32.2 Estimated GFR 32 Imaging Radiology Impressions: ITS Impressions Venous Duplex 04/23/22 14:10 IMPRESSION: No DVT demonstrated in the bilateral lower extremities. Medications Medications Current Medications Acetaminophen (Acetaminophen 325 Mg Tablet) 650 mg PO Q6H PRN PRN Reason: Headache/Pain Mild Scale (1-3) Last Admin: 04/28/22 22:40 Dose: 650 mg Al Hydroxide/Mg Hydroxide (Magnesium Hydrox/Alum Hydrox 30 Ml Oral.Susp) 30 ml PO Q6H PRN PRN Reason: Heartburn/Nausea Last Admin: 04/27/22 22:59 Dose: 30 ml Amlodipine Besylate (Amlodipine Besylate 5 Mg Tablet) 5 mg PO DAILY LINDA; Protocol Last Admin: 04/29/22 08:25 Dose: 5 mg Divalproex Sodium (Divalproex Sodium 250 Mg Tablet.) 500 mg PO BID [facility] Last Admin: 04/29/22 08:25 Dose: 500 mg Hydrocortisone (Hydrocortisone 1 % Cream 28.35 Gm Tube) 1 appl TOPICAL BID PRN PRN Reason: itchiness Last Admin: 04/28/22 22:43 Dose: 1 appl Hydroxyzine HCl (Hydroxyzine Hcl 25 Mg Tablet) 25 mg PO Q6H PRN PRN Reason: Anxiety Last Admin: 04/28/22 22:42 Dose: 25 mg Magnesium Hydroxide (Milk Of Magnesia 30 Ml Oral.Susp) 30 ml PO DAILY PRN PRN Reason: Constipation Metformin HCl (Metformin Hcl Er 500 Mg Tab.Er.24h) 500 mg PO DAILY [facility] Last Admin: 04/29/22 08:25 Dose: 500 mg Olanzapine (Olanzapine 5 Mg Tablet) 5 mg PO BEDTIME [facility] Last Admin: 04/28/22 22:42 Dose: 5 mg Omeprazole (Omeprazole 20 Mg Capsule.) 20 mg PO DAILY@0630 [facility] Last Admin: 04/29/22 08:25 Dose: 20 mg Torsemide (Torsemide 20 Mg Tablet) 20 mg PO DAILY [facility]; Protocol Last Admin: 04/29/22 08:25 Dose: 20 mg Trazodone HCl (Trazodone Hcl 50 Mg Tablet) 50 mg PO BEDTIME PRN PRN Reason: Insomnia Last Admin: 04/25/22 22:40 Dose: 50 mg Allergies Allergies Allergy/AdvReac Type Severity Reaction Status Date / Time No Known Allergies Allergy Verified 10/22/21 10:21 [No Known Allergies*] Assessment & Plan Assessment & Plan (1) Lower extremity edema: Status: Acute Code(s): R60.0 - Localized edema (2) Cellulitis and abscess of left leg: Status: Acute Code(s): L03.116 - Cellulitis of left lower limb; L02.416 - Cutaneous abscess of left lower limb Plan 77 y.o. female with a long history of bipolar disorder who was stable for more than 32 years old lithium, recently discontinued due to renal problems with manic symptoms elicited by flight of ideas, racing thoughts, disorganized behavior and increased irritability.? She was referred to the emergency room by the [facility] for assessment.?Seen by hospitalist for LE edema. Previously on torsemide developed rebound edema secondary to p.r.n. dosing. Also, mild erythema around skin tear right abreu. Started on doxycycline 100 b.i.d. for 7 days for cellulitis. Plan 1. Gather collateral information.? 2. Continue with regular medications prescribed before.? 3. Start Zyprexa 2.5 mg p.o. q.h.s. as a mood stabilizer. 4. Continue medical workup for 04/18/22 stop lamictal cont depakote get records [facility] 04/19/2022 [facility] records reviewed patient had been treated for UTI Lamictal had been discontinued patient was on Depakote 04/20: Continue current regimen and plans 04/21: Continue current regimen and plans.? Change diuretic to daily use from p.r.n. 77-year-old female with a known history of lower extremity edema 04/22: No medication changes, will obtain VPA level 04/23: VPA level 62.1, declines med adjustments despite continuing to present as hypomanic 04/24: Increase zyprexa to 5 mg QHS 04/25: No med changes, will monitor for benefit on increased olanzapine 04/26: Contacted PCP, Dr. Dillon, to discuss discharge planning 04/27: continue medications, no changes 04/28: No changes to above plan 04/29: No changes to above plan, progressing to baseline I spent minutes with the patient and/or on the patient floor today, greater than?50% of which was spent counseling/coordinating care. Patient educated on: diagnosis, medication risk/benefits and therapeutic strategies Reason for contiued inpatient stay Substantial Risk for: med/psych decompensation
[2022-04-29] MEDS: Ibuprofen 400 MG TABLET PO (14:16)
[2022-04-29] MEDS: OLANZapine 5 MG TABLET PO (19:41)
[2022-04-29 19:42] VITALS: BP 167/73; PULSE 81; RESP 17; TEMP 36.1; O2SAT 98
[2022-04-30] MEDS: Omeprazole 20 MG CAPSULE.DR PO (06:11)
[2022-04-30 08:00] VITALS: BP 143/65; PULSE 78; RESP 16; TEMP 36; O2SAT 93
[2022-04-30] MEDS: Torsemide 20 MG TABLET PO (08:18)
[2022-04-30] MEDS: metFORMIN HCl ER 500 MG TAB.ER.24H PO (08:18)
[2022-04-30] MEDS: Divalproex Sodium 250 MG TABLET.DR 500 MG PO (08:18)
[2022-04-30] MEDS: amLODIPine Besylate 5 MG TABLET PO (08:18)
--- NOTE | 2022-04-30 11:52 | P.DS_ITS ---
DS: Providers Provider Date of Service: 04/30/22 Date of admission: 04/17/22 13:07 Date of discharge: 04/30/22 Primary care physician: Unknown Physician Consults: 04/22/22 14:45 Consult to Hospitalist Routine Consulting Provider: Hospitalist Reason For Exam: bilatedema LE recent cellulitis ? recommendations Attending physician on discharge: Jeffery Arreola DS: Diagnosis Discharge Diagnosis (1) Lower extremity edema: Status: Acute (2) Cellulitis and abscess of left leg: Status: Acute DS: Medications Discharge Medications Home Medications: Home Medications Medication Instructions Recorded Confirmed blood sugar diagnostic (FreeStyle #10 ea 10/22/21 04/17/22 Lite Strips) amlodipine 5 mg tablet 1 tab PO DAILY 04/16/22 04/16/22 divalproex 500 mg tablet,delayed 1 tab PO BID 04/16/22 04/16/22 release lamotrigine 25 mg tablet 2 tab PO BID 04/16/22 04/16/22 metformin 500 mg tablet,extended 1 tab PO DAILY 04/16/22 04/16/22 release 24 hr olanzapine 2.5 mg tablet 1 tab PO BEDTIME 04/16/22 04/16/22 omeprazole 20 mg capsule,delayed 1 cap PO DAILY@0600 04/16/22 04/17/22 release torsemide 20 mg tablet 1 tab PO DAILY PRN swelling 04/16/22 04/16/22 Mental Status Exam Mental Status Exam Patient Appearance: Well Grooomed Patient Orientation: Person and Situation Level of Consciousness: Awake Patient Behavior: Cooperative Mood Description: Constricted Affect Description: Labile Patient Cognition Impaired: Yes Ability to Follow Directions: Good Speech Pattern: Clear Memory Description: Intact Hallucinations: None Delusions: Not Present Thought Process: Distracted Thought Content: positive for [place] and positive for Poverty of Content Judgement: Good Data Data Completed and Pending Completed studies during hospitalization [Text1]: 04/28/22 09:23 Creatinine 1.58 H Estim Creat Clear Calc 32.2 Estimated GFR 32 Imaging Diagnostic Imaging Impressions Venous Duplex 04/23/22 14:10 IMPRESSION: No DVT demonstrated in the bilateral lower extremities. DS: Summary Hospital Course Hospital Course: The patient was admitted for exacerbation of psychosis and brooke in the context of discontinuation of lithium by his cultural anthropology professor due to chronic renal failure. Please see the HPI of the admission note for further details. On admission, we started Zyprexa and it was titrated slowly up to 5 mg p.o. q.h.s. and continue on Depakote in the therapeutic range. The patient remained manic and psychotic but slowly she started improving with the medication change. There was less racing thoughts and her thought process was more organized. The patient denies side effects with the current medications. We assessed her cognition her Ashley score 08/23 and his Gaudencio test is 4.0. The patient has several medical ancillary services and does services will be restored. Since there were no safety concerns, discharge planning was discussed. Time spent discussing smoking cessation with patient: 3 to 10 minutes Status at Discharge Cognitive/behavioral status at discharge: Ashley 08/23 Functional status at discharge: independent ambulation Overall status at discharge: patient is back to baseline Time Spent with Patient Time attestation: Total time spent providing and/or coordinating discharge services: Time spent: Less than 30 minutes Discharge Plan Discharge Patient Disposition: Home Health Service Discharge Diagnosis: Bipolar disorder Referrals: [facility] [Other] - 05/01/22 (Your [facility] for Personal Care and homemaking services to resume as well as Home Delivered Meals at time of discharge. Home delivered meals will restart on 05/01/22. Homemaker will visit on 05/02/22. Your [facility] clinical case manager will also schedule home visit with you once you are home.) [facility]sor[facility] [Other] - 05/01/22 10:00 am (Your next home visit appointment with your therapist is scheduled for Friday05/01/22 at 10AM. He will call you on Friday to confirm appointment with you.) [facility] [Other] - 05/01/22 ([facility] to provide [facility] for medication teaching and management of medical needs, PT/OT, and social work. To begin on 05/01/22. ) [facility] [Other] - 05/27/22 3:00 pm (Your first appointment with [facility] is scheduled for 05/27/22 at 3PM.) Dr Jesusita Jo [Other] - 09/30/22 10:00 am (Your new patient appointment with [facility] at their [place] office is scheduled for 09/30/22 at 10am. ) [facility] Katina Zuniga [Other] - 1 Week (Call was placed for appointment. Office stated they will call patient with appointment date and time. ) Discharge Medications: New olanzapine 5 mg Tablet 5 mg PO BEDTIME 30 Days Qty: 30 0RF trazodone 50 mg Tablet 50 mg PO BEDTIME PRN (Reason: Insomnia) 30 Days Qty: 30 0RF hydrocortisone 1 % Cream 1 appl topical BID PRN (Reason: itchiness) 30 Days Qty: 1 0RF Continued torsemide 20 mg tablet 1 tab PO DAILY PRN (Reason: swelling) 30 Days Qty: 30 0RF (DME) blood sugar diagnostic Strip See Rx Instructions Not Applicable TID Qty: 10 0RF Rx Instructions: As directed amlodipine 5 mg tablet 1 tab PO DAILY 30 Days Qty: 30 0RF divalproex 500 mg tablet,delayed release (DR/EC) 1 tab PO BID 30 Days Qty: 60 0RF lamotrigine 25 mg tablet 2 tab PO BID 30 Days Qty: 120 0RF omeprazole 20 mg capsule,delayed release(DR/EC) 1 cap PO DAILY@0600 30 Days Qty: 30 0RF metformin 500 mg tablet extended release 24 hr 1 tab PO DAILY 30 Days Qty: 30 0RF Discontinued olanzapine 2.5 mg tablet 1 tab PO BEDTIME Discharge Orders: Discharge Order (Routine); Ordered 04/30/22 Ordered By: Jeffery Arreola Diet: Diabetic diet Activity on Discharge: As tolerated Stand Alone Forms: Patient Portal Discharge page, Community Support Care Plan Goals: Care plan goals achieved in this admission Health Concerns: Continue treatment by primary care physician Plan of Treatment: Continue medication management Assessment: Elderly female with a long history of bipolar disorder who relapse on brooke and psychosis in the context of discontinuation of lithium. He was replaced with Depakote Lamictal and Zyprexa with for improvement of the symptoms. At this moment safe to be discharged in the community.
== END 2022-04-30 14:00 | disposition home health service (06) | DRG 885 ==
LOC: HO.ED 04-17 12:50 → HO.PGERI 04-17 13:18
PROVIDERS: Emergency Medicine; Registered Nurse; Admitting Provider Psychiatry & Neurology Psychiatry; Emergency Provider Emergency Medicine; Visit Provider Psychiatry & Neurology Psychiatry
DX: F31.2 Bipolar disorder, current episode manic severe with psychotic features (principal); L03.116 Cellulitis of left lower limb; Z20.822 Contact with and (suspected) exposure to COVID-19; Z86.718 Personal history of other venous thrombosis and embolism; Z87.891 Personal history of nicotine dependence; Z79.84 Long term (current) use of oral hypoglycemic drugs; Z79.899 Other long term (current) drug therapy; Z91.14 Patient's other noncompliance with medication regimen
CPT/HCPCS: 36415; 80053; 80061; 80164; 80307; 81003; 81025; 82565; 83880; 85025; 85379; 87635; 93005; 93970; 99285

== ENCOUNTER 2022-05-16 12:16 | Inpatient (IN) | payer MEDICARE, SELFPAY ==
[2022-05-16] VITALS (14 sets, daily range): BP systolic 149–189; BP diastolic 86–95; PULSE 84–98; RESP 14–22; TEMP 36.8–37.1; O2SAT 95–99; BMI 34.5
--- NOTE | 2022-05-16 13:13 | ED_ITS ---
HPI - Psych General Chief Complaint: Psychiatric Symptoms Stated Complaint: section 12 Time Seen by Provider: 05/16/22 13:06 Source: patient and EMS Mode of arrival: EMS Limitations: altered mental status History of Present Illness HPI Narrative: 77 yo female with history of bipolar disorder recently discharged from inpatient psych beginning of this month on depakote, lamictal, zyprexa here being found outside barefoot in the rain, disorganized thoughts sent in on section 12. Unfortunately, I am unable to obtain HPI from patient. She is refusing exam and to speak to me. Does state This world is going to hell, you know whats going on out there, take off your mask, go home and read a porno. Staff reports patient has been hyperverbal in the pod, sexually inappropriate. Related Data Home Medications Medication Instructions Recorded Confirmed simvastatin 20 mg tablet 1 tab PO BEDTIME 05/16/22 05/16/22 Previous Rx's Medication Instructions Recorded amlodipine 5 mg tablet 1 tab PO DAILY 30 days #30 tabs 04/30/22 blood sugar diagnostic #10 ea 04/30/22 divalproex 500 mg tablet,delayed 1 tab PO BID 30 days #60 tabs 04/30/22 release hydrocortisone 1 % topical cream 1 appl topical BID PRN itchiness 04/30/22 30 days #1 g lamotrigine 25 mg tablet 2 tab PO BID 30 days #120 tabs 04/30/22 metformin 500 mg tablet,extended 1 tab PO DAILY 30 days #30 tabs 04/30/22 release 24 hr olanzapine 5 mg tablet 5 mg PO BEDTIME 30 days #30 tabs 04/30/22 omeprazole 20 mg capsule,delayed 1 cap PO DAILY@0600 30 days #30 04/30/22 release caps torsemide 20 mg tablet 1 tab PO DAILY PRN swelling 30 04/30/22 days #30 tabs trazodone 50 mg tablet 50 mg PO BEDTIME PRN Insomnia 30 04/30/22 days #30 tabs Allergies Allergy/AdvReac Type Severity Reaction Status Date / Time No Known Allergies Allergy Verified 10/22/21 10:21 [No Known Allergies*] Review of Systems Review of Systems: Yes all other systems are reviewed and are negative Constitutional: Constitutional: Reports no additional constitutional complaints, Denies body ache(s), Denies chills, Denies fever(s), Denies headache(s) and Denies weakness Eyes: Eyes: Reports no additional eye complaints and Denies change in vision ENT: Reports system reviewed and no additional complaints, except as documented, Denies dizziness, Denies headache(s), Denies nasal congestion, Denies nasal discharge and Denies neck pain Cardiovascular: Cardiovascular: Reports no additional cardiovascular complaints, Denies chest pain, Denies leg edema and Denies dyspnea Respiratory: Respiratory: Reports no additional respiratory complaints, Denies cough and Denies dyspnea Gastrointestinal: Gastrointestinal: Reports no additional gastrointestinal complaints, Denies abdominal pain, Denies diarrhea, Denies nausea and Denies vomiting Genitourinary: Genitourinary: Reports no additional female genitourinary complaints and Denies urinary incontinence Musculoskeletal: Musculoskeletal: Reports no additional musculoskeletal com plaints, Denies back pain, Denies arthralgias, Denies joint swelling, Denies neck pain, Denies numbness and Denies tingling Integumentary/Breasts: Skin/Breast: Reports system reviewed and no additional complaints, except as docu and Denies rash Neurologic: Reports system reviewed and no additional complaints, except as documented, Reports behavioral changes, Denies dizziness, Denies headache(s), Denies numbness, Denies tingling and Denies weakness Psychiatric: Psychiatric: Reports behavioral changes PMFSH Past Medical History Attestation statement: The following information was validated with the patient. Source: old records reviewed and nursing notes reviewed Medical History Bipolar 1 disorder Breast cancer Cognitive disorder Depression Diabetes DVT (deep venous thrombosis) Gait disorder GERD (gastroesophageal reflux disease) Hand weakness HTN (hypertension) Hyperlipidemia Obesity TIA (transient ischemic attack) Tremors of nervous system Wheezing Surgical History H/O mastectomy Family History Family History Brother Alcohol abuse Polio Brother Cancer Sister Stroke Mother HTN (hypertension) Sister Cancer Social History Social History Household Members: None Housing: Apartment Do you presently have visiting nurse or other home services: Yes Unable to assess alcohol history related to: Refusing to respond Alcohol intake: current Alcohol type: wine Patient Tobacco Use Status: Former Tobacco user Quit Date: 11 years Tobacco use type: Cigarette Years Smoked: 30 e-Cigarette/Vaping Use: Former Use Second Hand Smoke Exposure: No Advance Directives: Yes Advance Directives on File: Yes Advance Directives Date on File: 05/01/22 service: No Sexual orientation: Straight/Heterosexual Physical Exam Vital Signs: Vital Signs: Last Vital Signs Temp 98.8 F 05/16/22 17:20 Pulse 96 05/16/22 17:20 Resp 14 05/16/22 17:20 BP 158/91 H 05/16/22 17:20 Pulse Ox 95 05/16/22 17:20 O2 Del Method 05/16/22 17:20 BMI result Body Mass Index 34.5 Const: Other: Refusing most of exam. General: cooperative, healthy appearing, comfortable and no acute distress Limitations: no limitations HEENT: Head: Yes normal to inspection Ears: hearing grossly normal bilaterally General nose exam: Normal external nose present Face and s inus: Yes normal facial exam Mouth: Normal oral and palatal mucosa present Throat: Yes posterior oropharynx normal Eyes: General: appearance normal, both eyes and all related structures Neck: Neck: Yes normal visual inspection Resp: Effort & Inspection: normal respiratory effort Back/Spine/Pelvis: Thoracic/Lumbar Spine: thoracic and lumbar spine normal to inspection Neuro: General: moves all extremities Gait exam (Neuro): Normal gait present Extrem: General: Yes normal to inspection Course Course Course Narrative: 1335-patient quite agitated, banging on door and equipment, exiting behavior unable to be re-directed by nursing. Patient was offered oral medications for anxiety. She threw these on the ground. At this point I am concerned that she is a danger for herself and staff. She will receive zyprexa IM. Re-assess. 1450-Continued behavior. Given haldol/benadryl IM Reevaluation(s) Reevaluation #1: 1730-Patient resting comfortably. No concern for acute ingestion or trauma. Patient is cleared for a crisis evaluation. Will place in physician observation pending disposition. Reevaluation #2: 1800-Sign out to night team pending above. MDM - Psych MDM Narrative Medical decision making narrative: 77 yo female with history of bipolar disorder unsure if compliant with medications here with behavior change on section 12 Patient refusing exam. VSS Will need labs, UA, FERNANDEZ, EKG, covid screen, BHN eval Medical Records Attestation: I reviewed the patient's medical records. Lab Data Attestation: I reviewed the patient's lab results. Result diagrams: 05/16/22 16:18 05/16/22 16:18 Labs: Lab Results 05/16/22 05/16/22 05/16/22 Range/Units 16:18 16:18 16:18 WBC 8.7 (4.8-10.8) X10*3/uL RBC 3.71 L (4.20-5.50) X10*6/uL Hgb 11.2 L (12.0-16.0) g/dl Hct 34.4 L (37.0-47.0) % MCV 92.7 (80.0-98.0) fL MCH 30.2 (27.0-33.0) pg MCHC 32.6 (31.0-35.0) g/dl RDW 13.5 (11.0-16.0) % Plt Count 232 (160-400) X10*3/uL MPV 10.4 (9.4-12.3) fL Immature Gran % (Auto) 0.3 (0.0-0.4) % Neut % (Auto) 71.7 (45-73) % Lymph % (Auto) 20.4 (20-40) % [place] % (Auto) 5.5 (2-11) % Eos % (Auto) 1.8 (0-4) % Baso % (Auto) 0.3 (0-2) % Lymph # (Auto) 1.8 (1.2-4.9) X10*3/uL [place] # (Auto) 0.5 (0.1-1.2) X10*3/uL Eos # (Auto) 0.2 (0.0-0.4) X10*3/uL Baso # (Auto) 0.0 (0.0-0.2) X10*3/uL Abs Immat Gran (auto) 0.03 (0.00-0.03) X10*3/uL Absolute Neuts (auto) 6.2 (2.0-8.3) x10*3/uL Absolute Nucleated RBC 0.000 (0.0-0.012) X10*3/uL Nucleated RBC % (auto) 0.0 (0.0-0.2) /100WBC Sodium 142 (135-145) mmol/L Potassium 4.7 (3.3-5.1) mmol/L Chloride 108 (96-108) mmol/L Carbon Dioxide 21 L (22-29) mmol/L Anion Gap 18 (12-20) BUN 30 H (9-16) mg/dL Creatinine 1.38 (0.5-1.4) mg/dL Estim Creat Clear Calc 35.7 Estimated GFR 37 Random Glucose 80 (60-115) mg/dL Calcium 9.3 (8.4-10.2) mg/dL Total Bilirubin 0.5 (0.0-1.0) mg/dL Direct Bilirubin 0.2 (0.0-0.5) mg/dL AST 20 (5-31) U/L ALT 16 (0-31) U/L Alkaline Phosphatase 79 (39-117) U/L Total Protein 6.8 (6.5-8.0) g/dL Albumin 4.0 (3.5-5.0) g/dL Salicylates < 5.0 L (15-30) mg/dL Acetaminophen < 1 (<30) mcg/mL Valproic Acid 8.6 L (50.0-100.0) mcg/mL Lamotrigine Cancelled Ethyl Alcohol < 10 mg/dL COVID-19 ([facility]) (Negative) COVID-19 Clin Com 05/16/22 Range/Units 16:19 WBC (4.8-10.8) X10*3/uL RBC (4.20-5.50) X10*6/uL Hgb (12.0-16.0) g/dl Hct (37.0-47.0) % MCV (80.0-98.0) fL MCH (27.0-33.0) pg MCHC (31.0-35.0) g/dl RDW (11.0-16.0) % Plt Count (160-400) X10*3/uL MPV (9.4-12.3) fL Immature Gran % (Auto) (0.0-0.4) % Neut % (Auto) (45-73) % Lymph % (Auto) (20-40) % [place] % (Auto) (2-11) % Eos % (Auto) (0-4) % Baso % (Auto) (0-2) % Lymph # (Auto) (1.2-4.9) X10*3/uL [place] # (Auto) (0.1-1.2) X10*3/uL Eos # (Auto) (0.0-0.4) X10*3/uL Baso # (Auto) (0.0-0.2) X10*3/uL Abs Immat Gran (auto) (0.00-0.03) X10*3/uL Absolute Neuts (auto) (2.0-8.3) x10*3/uL Absolute Nucleated RBC (0.0-0.012) X10*3/uL Nucleated RBC % (auto) (0.0-0.2) /100WBC Sodium (135-145) mmol/L Potassium (3.3-5.1) mmol/L Chloride (96-108) mmol/L Carbon Dioxide (22-29) mmol/L Anion Gap (12-20) BUN (9-16) mg/dL Creatinine (0.5-1.4) mg/dL Estim Creat Clear Calc Estimated GFR Random Glucose (60-115) mg/dL Calcium (8.4-10.2) mg/dL Total Bilirubin (0.0-1.0) mg/dL Direct Bilirubin (0.0-0.5) mg/dL AST (5-31) U/L ALT (0-31) U/L Alkaline Phosphatase (39-117) U/L Total Protein (6.5-8.0) g/dL Albumin (3.5-5.0) g/dL Salicylates (15-30) mg/dL Acetaminophen (<30) mcg/mL Valproic Acid (50.0-100.0) mcg/mL Lamotrigine Ethyl Alcohol mg/dL COVID-19 ([facility]) Negative (Negative) COVID-19 Clin Com See Note Discharge Plan Discharge Clinical Impression: Bipolar disorder Patient Disposition: Still a Patient Prescriptions: No Action simvastatin 20 mg tablet 1 tab PO BEDTIME olanzapine 5 mg Tablet 5 mg PO BEDTIME 30 Days Qty: 30 0RF trazodone 50 mg Tablet 50 mg PO BEDTIME PRN (Reason: Insomnia) 30 Days Qty: 30 0RF hydrocortisone 1 % Cream 1 appl topical BID PRN (Reason: itchiness) 30 Days Qty: 1 0RF torsemide 20 mg tablet 1 tab PO DAILY PRN (Reason: swelling) 30 Days Qty: 30 0RF (DME) blood sugar diagnostic Strip See Rx Instructions Not Applicable TID Qty: 10 0RF Rx Instructions: As directed amlodipine 5 mg tablet 1 tab PO DAILY 30 Days Qty: 30 0RF divalproex 500 mg tablet,delayed release (DR/EC) 1 tab PO BID 30 Days Qty: 60 0RF lamotrigine 25 mg tablet 2 tab PO BID 30 Days Qty: 120 0RF omeprazole 20 mg capsule,delayed release(DR/EC) 1 cap PO DAILY@0600 30 Days Qty: 30 0RF metformin 500 mg tablet extended release 24 hr 1 tab PO DAILY 30 Days Qty: 30 0RF
[2022-05-16] MEDS: OLANZapine 10 MG VIAL 5 MG IM (13:35)
--- NOTE | 2022-05-16 13:39 | PC.NURSE ---
Pt wandering around Pod, attempting to exit. Hyperverbal, speaking about things of sexual nature, asking staff if they would like to fuck later would like to get in bed and mess around . Staff unsuccessful with verbal re-direction. HOLLY Bradshaw aware. CAT Renee and security assisted pt to her room to sit on the bed. Pt attempted to bite staff. This nurse administered Zyprexa per OCT with assistance of CAT Renee and security. Pt now sleeping on bed, respirations even and unlabored.
--- NOTE | 2022-05-16 13:57 | PHA.MEDREC ---
Pharmacy Consult ? Medication Reconciliation Pharmacy has completed the medication reconciliation. Medications reviewed from last admission (12 days ago). Patient unable to give history per provider note Thanks Kyle
--- NOTE | 2022-05-16 14:03 | PC.NURSE ---
Pt walking around pod, yelling it's time to go fuckers, time to democrat . Another pt in the pod attempted praying with Jing and she attempted to kiss the other pt. The other pt backed away and Jing said it's time to fuck . This nurse both pts and had Jing sit at the table. This nurse provided Jing with a sandwhich and jello which she promptly threw across the room. Pt continuing to flip off staff members telling them to fuck off please and thank you .
--- NOTE | 2022-05-16 14:32 | MHC.CARE ---
CARE Team speaks with pt?s Health Care Proxy and sister . Chasity Dowell ([phone]) who expressed concerns regarding her sister.? She reports that pt?s manic behavior began in February of this year and has been escalating.? Pt was DCd from this facility on April 30 of this year. On of that week, family had begun to notice her sx returning.? These sx have been increasing since her discharge and their reemergence.? Family reports that pt has not been taking her medications, eating or sleeping.? Family reports that pt has been posting ?Very personal stuff? on Face Book, she ?Had a run in with police?, and threw a chair and reserved sign at a restaurant last week. Pt?s sister stated that pt was taken off [place] after being on it for 32 years and doing well.? She was taken off [place] because of Kidney disease.? Family is asking that she go back on the [place] citing it being a quality of life issue for her.
[2022-05-16] MEDS: diphenhydrAMINE HCL 50 MG/ML VIAL IM (14:53)
[2022-05-16] MEDS: Haloperidol Lactate 5 MG/ML VIAL IM (14:54)
--- NOTE | 2022-05-16 15:48 | PC.NURSE ---
pt finally appearing to sleep, rr even unlabored. pt had been intermittently resting with frequent awakenings with verbal and physical outbursts, pt is extremely sexually inappropriate with staff, nonsensical at times.
[2022-05-16 16:23] LABS: MANUAL DIFF FLAG NO
[2022-05-16 16:24] LABS: Basophils Percent Auto 0.3 % (0-2); Eosinophils Absolute Auto 0.2 X10*3/uL (0.0-0.4); Eosinophils Percent Auto 1.8 % (0-4); Hematocrit 34.4 % (37.0-47.0); Hemoglobin 11.2 g/dl (12.0-16.0); Imm Gran Abs Auto 0.03 X10*3/uL (0.00-0.03); Imm Gran Pct Auto 0.3 % (0.0-0.4); Lymphocytes Absolute Auto 1.8 X10*3/uL (1.2-4.9); Lymphocytes Percent Auto 20.4 % (20-40); Mean Corpuscular HGB Conc 32.6 g/dl (31.0-35.0); Mean Corpuscular Hemoglobin 30.2 pg (27.0-33.0); Mean Corpuscular Volume 92.7 fL (80.0-98.0); Mean Platelet Volume 10.4 fL (9.4-12.3); Monocytes Absolute Auto 0.5 X10*3/uL (0.1-1.2); Monocytes Percent Auto 5.5 % (2-11); Neutrophils Absolute Auto 6.2 x10*3/uL (2.0-8.3); Neutrophils Percent Auto 71.7 % (45-73); Platelet Count 232 X10*3/uL (160-400); Red Blood Count 3.71 X10*6/uL (4.20-5.50); Red Cell Distribution Width 13.5 % (11.0-16.0); White Blood Count 8.7 X10*3/uL (4.8-10.8)
[2022-05-16 16:39] LABS: Acetaminophen LAB < 1 mcg/mL (<30); Alanine Aminotransferase 16 U/L (0-31); Alkaline Phosphatase 79 U/L (39-117); Anion Gap 18 (12-20); Aspartate Amino Transferase 20 U/L (5-31); Bilirubin Direct 0.2 mg/dL (0.0-0.5); Bilirubin Total 0.5 mg/dL (0.0-1.0); Blood Urea Nitrogen 30 mg/dL (9-16); Calcium 9.3 mg/dL (8.4-10.2); Carbon Dioxide 21 mmol/L (22-29); Chloride 108 mmol/L (96-108); Creatinine Clr Calc Pharmacy 35.7; Estimated Glomerular Filt Rate 37; Ethanol < 10 mg/dL; Glucose Random 80 mg/dL (60-115); Potassium 4.7 mmol/L (3.3-5.1); Salicylate < 5.0 mg/dL (15-30); Sodium 142 mmol/L (135-145); Total Protein 6.8 g/dL (6.5-8.0)
[2022-05-16 16:45] LABS: Valproate 8.6 mcg/mL (50.0-100.0)
[2022-05-16 16:51] LABS: COVID-19 Test Negative (Negative); IDNOW Serial# 16C4AD1C
[2022-05-17 02:17] VITALS: BP 145/85; PULSE 100; RESP 17; TEMP 36.4; O2SAT 96
[2022-05-17] MEDS: OLANZapine 5 MG TABLET PO ×2 (02:19→22:06)
[2022-05-17] MEDS: Atorvastatin Calcium 10 MG TABLET PO ×2 (02:19→22:06)
[2022-05-17] MEDS: Divalproex Sodium 500 MG TABLET.DR PO ×3 (02:19→22:06)
[2022-05-17] MEDS: traZODone HCL 50 MG TABLET PO (02:22)
[2022-05-17] MEDS: lamoTRIgine 25 MG TABLET 50 MG PO ×3 (02:22→22:05)
[2022-05-17 02:28] LABS: Appearance Urine Clear; Color Urine Yellow; Glucose Urine UA Negative (Negative); Leukocyte Esterase Urine Trace (Negative); Nitrite Urine Negative (Negative); UMIC TRIGGER UACC YES; Urine Blood Negative (Negative); Urine Ketones 15 mg/dL (Negative); Urine Protein Trace mg/dL (Neg-Trace)
[2022-05-17 02:30] LABS: Bacteria Urine None Seen (None Seen); Hyaline Casts Urine 0-2 /LPF (0-2); RBC Urine 0-2 /HPF (0-2); Squamous Epithelial Cell Urine 0-2 /HPF (0-2); WBC Urine 0-5 /HPF (0-5)
--- NOTE | 2022-05-17 02:34 | PC.NURSE ---
Patient told this feature writer that she do not want her EKG at this time RN was notified
[2022-05-17 02:50] LABS: Amphetamine Screen Urine Not Detected (Not Detect); Barbiturates, Urine Not Detected (Not Detect); Benzodiazepines Screen Urine Not Detected (Not Detect); Cannabinoid Screen Urine Not Detected (Not Detect); Cocaine Screen Urine Not Detected (Not Detect); Fentanyl, urine Not Detected (Not Detect); Opiate Screen Urine Not Detected (Not Detect); Phencyclidine Screen Urine Not Detected (Not Detect)
[2022-05-17] MEDS: Omeprazole 20 MG CAPSULE.DR PO (06:46)
--- NOTE | 2022-05-17 07:23 | PC.NURSE ---
Patient was s/p chemical restraint, slept whole evening and through the night, patient was briefly up took her night time medication, refreshed with coffee and slept rest of the night, patient was assessed by STEVE in the community, disposition is section 12 inpatient bed search, will continue to monitor.
--- NOTE | 2022-05-17 07:37 | PC.NURSE ---
Report received. PT currently resting, respirations even and unlabored, in no apparent distress. PT is an inpatient bedsearch.
[2022-05-17] MEDS: amLODIPine Besylate 5 MG TABLET PO (09:58)
[2022-05-17] MEDS: metFORMIN HCl ER 500 MG TAB.ER.24H PO (09:58)
[2022-05-17 10:07] VITALS: BP 124/57; PULSE 92; RESP 16; TEMP 36.6; O2SAT 95
--- NOTE | 2022-05-17 14:22 | ECG_ITS ---
Test Reason : med clearance Blood Pressure : / mmHG Vent. Rate : 092 BPM Atrial Rate : 092 BPM P-R Int : 148 ms QRS Dur : 088 ms QT Int : 382 ms P-R-T Axes : 063 042 031 degrees QTc Int : 472 ms Normal sinus rhythm Normal ECG When compared with ECG of 17-APR-2022 10:21, Premature ventricular complexes are no longer Present Referred By: Marielos Potter Electronically Signed By:MAITE BERNARD
--- NOTE | 2022-05-17 16:54 | PC.NURSE ---
pt has been sleeping this afternoon, chest rises noted, resp even, nonlaboured. sister fermin ley called, would like to be notified of pt transfer upstairs [phone].
--- NOTE | 2022-05-17 18:38 | PC.NURSE ---
PT CURRENTLY AWAKE, EATING DINNER. BEHAVIOUR APPROPRIATE, PT ENGAGING IN CALM, PLEASANT CONVERSATION WITH STAFF.
[2022-05-17 23:47] VITALS: BP 140/81; PULSE 105; RESP 16; TEMP 36.7; O2SAT 96
[2022-05-18] MEDS: Omeprazole 20 MG CAPSULE.DR PO (05:18)
--- NOTE | 2022-05-18 06:34 | PC.NURSE ---
Patient slept through the night, no distress observed/reported, patient compliant with medication, behavior appropriate and non concerning, patient is pre-accepted to don-psych, disposition per [facility] is section 12 inpatient bed search, will continue to monitor.
--- NOTE | 2022-05-18 07:32 | PC.NURSE ---
patient appears to remain asleep at present respirations are even and unlabored patient appears in no distress.
[2022-05-18 07:46] VITALS: BP 127/61; PULSE 86; RESP 16; TEMP 36.6; O2SAT 97
[2022-05-18] MEDS: amLODIPine Besylate 5 MG TABLET PO (08:48)
[2022-05-18] MEDS: metFORMIN HCl ER 500 MG TAB.ER.24H PO (08:48)
[2022-05-18] MEDS: Divalproex Sodium 500 MG TABLET.DR PO ×2 (08:49→21:10)
[2022-05-18] MEDS: lamoTRIgine 25 MG TABLET 50 MG PO ×2 (08:49→21:10)
--- NOTE | 2022-05-18 12:16 | PC.NURSE ---
patient peridically irritable and rude/mean to staff as if they had some input into patients hospitalization.
[2022-05-18] MEDS: Atorvastatin Calcium 10 MG TABLET PO (21:10)
[2022-05-18] MEDS: OLANZapine 5 MG TABLET PO (21:10)
[2022-05-19 04:59] VITALS: BP 132/70; PULSE 84; RESP 17; TEMP 37.4; O2SAT 95
[2022-05-19] MEDS: Omeprazole 20 MG CAPSULE.DR PO (05:06)
--- NOTE | 2022-05-19 06:39 | PC.NURSE ---
Patient slept through the night, no distress observed/reported, patient compliant with medication, behavior appropriate and non concerning, patient is pre-accepted to don-psych, disposition per [facility] is section 12 inpatient bed search, VSS, will continue to monitor.
--- NOTE | 2022-05-19 07:08 | PC.NURSE ---
patient appears to remain asleep at present respirations are even and unlabored patient appears in no distress
[2022-05-19] MEDS: amLODIPine Besylate 5 MG TABLET PO (08:50)
[2022-05-19] MEDS: lamoTRIgine 25 MG TABLET 50 MG PO ×2 (08:50→21:03)
[2022-05-19] MEDS: Divalproex Sodium 500 MG TABLET.DR PO ×2 (08:50→21:03)
[2022-05-19] MEDS: metFORMIN HCl ER 500 MG TAB.ER.24H PO (08:50)
[2022-05-19] MEDS: Ondansetron ODT 4 MG TAB.RAPDIS TRANSLINGU (11:17)
[2022-05-19 12:45] VITALS: BP 150/70; PULSE 71; RESP 16; TEMP 36.1; O2SAT 95
[2022-05-19 13:58] LABS: Valproate 72.1 mcg/mL (50.0-100.0)
--- NOTE | 2022-05-19 17:55 | PC.NURSE ---
Pt escored in WC onto unit from pod accompanied by security and this marketing writer at 1240. Pt. recently discharged from unit and familiar with surroundings and staff. Oriented to all but situation, I can't remember how I got here, but I'm sure I was out of control. It's embarrassing. Cooperative but hyperverbal and tangential speech during admission process, requiring multiple redirections to stay on task. Pt. walks independently with cane. Pt. signed all needed consents and sister/HCP Elinor Dowell notified of admission.
[2022-05-19 18:00] VITALS: BP 143/65; PULSE 87; RESP 14; TEMP 36.2; O2SAT 97
[2022-05-19] MEDS: OLANZapine 5 MG TABLET PO (21:03)
[2022-05-19] MEDS: traZODone HCL 50 MG TABLET PO (21:03)
[2022-05-19] MEDS: Atorvastatin Calcium 10 MG TABLET PO (21:04)
--- NOTE | 2022-05-20 | ECG_ITS ---
Test Reason : arrhythmia Blood Pressure : / mmHG Vent. Rate : 079 BPM Atrial Rate : 079 BPM P-R Int : 162 ms QRS Dur : 102 ms QT Int : 390 ms P-R-T Axes : 050 025 051 degrees QTc Int : 447 ms Normal sinus rhythm Normal ECG When compared with ECG of 17-MAY-2022 11:27, No significant change was found Referred By: Praful Kaur Electronically Signed By:MAITE BERNARD
[2022-05-20 06:00] VITALS: BP 151/76; PULSE 88; RESP 16; TEMP 36.1; O2SAT 96
[2022-05-20 08:22] LABS: MANUAL DIFF FLAG NO
[2022-05-20 08:27] LABS: Basophils Percent Auto 0.4 % (0-2); Eosinophils Absolute Auto 0.2 X10*3/uL (0.0-0.4); Eosinophils Percent Auto 3.4 % (0-4); Hematocrit 36.1 % (37.0-47.0); Hemoglobin 11.4 g/dl (12.0-16.0); Imm Gran Abs Auto 0.02 X10*3/uL (0.00-0.03); Imm Gran Pct Auto 0.3 % (0.0-0.4); Lymphocytes Absolute Auto 1.9 X10*3/uL (1.2-4.9); Lymphocytes Percent Auto 27.6 % (20-40); Mean Corpuscular HGB Conc 31.6 g/dl (31.0-35.0); Mean Corpuscular Hemoglobin 29.6 pg (27.0-33.0); Mean Corpuscular Volume 93.8 fL (80.0-98.0); Mean Platelet Volume 10.5 fL (9.4-12.3); Monocytes Absolute Auto 0.4 X10*3/uL (0.1-1.2); Monocytes Percent Auto 5.3 % (2-11); Neutrophils Absolute Auto 4.4 x10*3/uL (2.0-8.3); Platelet Count 243 X10*3/uL (160-400); Red Blood Count 3.85 X10*6/uL (4.20-5.50); Red Cell Distribution Width 13.9 % (11.0-16.0)
[2022-05-20] MEDS: Divalproex Sodium 500 MG TABLET.DR PO ×2 (08:30→21:39)
[2022-05-20] MEDS: amLODIPine Besylate 5 MG TABLET PO (08:30)
[2022-05-20] MEDS: metFORMIN HCl ER 500 MG TAB.ER.24H PO (08:30)
[2022-05-20] MEDS: lamoTRIgine 25 MG TABLET 50 MG PO ×2 (08:30→21:39)
[2022-05-20] MEDS: Omeprazole 20 MG CAPSULE.DR PO (08:30)
[2022-05-20 08:46] LABS: Alanine Aminotransferase 17 U/L (0-31); Alkaline Phosphatase 77 U/L (39-117); Anion Gap 16 (12-20); Aspartate Amino Transferase 17 U/L (5-31); Bilirubin Total 0.3 mg/dL (0.0-1.0); Blood Urea Nitrogen 27 mg/dL (9-16); Calcium 9.4 mg/dL (8.4-10.2); Carbon Dioxide 26 mmol/L (22-29); Chloride 107 mmol/L (96-108); Cholesterol 208 mg/dL; Creatinine Clr Calc Pharmacy 34.5; Estimated Glomerular Filt Rate 36; Glucose Fasting 92 mg/dL (60-99); HDL Cholesterol 41 mg/dL; LDL Cholesterol Calculated 138 mg/dl; Potassium 4.1 mmol/L (3.3-5.1); Sodium 145 mmol/L (135-145); Total Protein 6.9 g/dL (6.5-8.0); Triglycerides 145 mg/dL
--- NOTE | 2022-05-20 14:03 | P.HPPS_ITS ---
HPI Date of Service: 05/20/22 Chief Complaint: psychosis Sources of Information: patient interviewed, chart reviewed and crisis/core team assessment reviewed HPI Subjective Notes: [place] Warning and Conditional Voluntary Narrative: the patient is a 77-year-old female, with adult children, living by herself with good social support very well known by this service since she was admitted a few weeks ago for exacerbation of brooke. The patient carries a diagnosis of bipolar disorder and her international student advisor discontinue lithium that help her to be stable for several years due to chronic renal failure. She decompensated and later on we started on Depakote and Zyprexa with for improvement. The patient was brought to the emergency room since she was found on the street without shoes in the rain, overwhelmed and confused. On interview the patient reports that she was compliant with treatment but apparently she had some problems with her sister and she looked confused at times. No active suicidal ideation, she was able to contract for safety. Past Psychiatric History: History of bipolar disorder, the patient is unable to provide details about her care but apparently she was on lithium for more than 32 years and on October of 2021 her international student advisor discontinue this medication. It is unclear if she has previous psychiatric admissions. Medical Evaluation Reviewed: Hospitalist Nathen Hemphilling [facility] Medical History Bipolar 1 disorder Breast cancer Cognitive disorder Depression Diabetes DVT (deep venous thrombosis) Gait disorder GERD (gastroesophageal reflux disease) Hand weakness HTN (hypertension) Hyperlipidemia Obesity TIA (transient ischemic attack) Tremors of nervous system Wheezing Surgical History H/O mastectomy Family History: Denies Social History: States that she lives by herself, apparently she used to be highly functional when she was stable. Substance History: Denies Trauma History: Denies Diagnostics Vital Signs (24Hr): Vital Signs - 24 hr 05/19/22 18:00 05/20/22 06:00 Temperature 97.1 F 97.0 F Pulse Rate 87 88 Respiratory Rate 14 16 Blood Pressure 143/65 H 151/76 H Pulse Oximetry 97 96 Oxygen Delivery Method Room Air Room Air BMI result Body Mass Index 34.5 Labs Results: 05/20/22 08:18 05/20/22 08:18 Labs: Laboratory Results - last 48 hr 09/05/20/22 05/20/22 13:17 08:18 08:18 WBC 7.0 RBC 3.85 L Hgb 11.4 L Hct 36.1 L MCV 93.8 MCH 29.6 MCHC 31.6 RDW 13.9 Plt Count 243 MPV 10.5 Immature Gran % (Auto) 0.3 Neut % (Auto) 63.0 Lymph % (Auto) 27.6 [place] % (Auto) 5.3 Eos % (Auto) 3.4 Baso % (Auto) 0.4 Lymph # (Auto) 1.9 [place] # (Auto) 0.4 Eos # (Auto) 0.2 Baso # (Auto) 0.0 Abs Immat Gran (auto) 0.02 Absolute Neuts (auto) 4.4 Absolute Nucleated RBC 0.000 Nucleated RBC % (auto) 0.0 Sodium 145 Potassium 4.1 Chloride 107 Carbon Dioxide 26 Anion Gap 16 BUN 27 H Creatinine 1.43 H Estim Creat Clear Calc 34.5 Estimated GFR 36 Fasting Glucose 92 Calcium 9.4 Total Bilirubin 0.3 AST 17 ALT 17 Alkaline Phosphatase 77 Total Protein 6.9 Albumin 4.0 Triglycerides 145 Cholesterol 208 D LDL Cholesterol, Calc 138 HDL Cholesterol 41 Valproic Acid 72.1 Meds/Allergies Meds Home Medications Medication Instructions Recorded Confirmed Type simvastatin 20 mg tablet 1 tab PO BEDTIME 05/16/22 05/16/22 History Allergies Allergies Allergy/AdvReac Type Severity Reaction Status Date / Time No Known Allergies Allergy Verified 10/22/21 10:21 [No Known Allergies*] Mental Status Exam Mental Status Exam Patient Appearance: Well Grooomed Patient Orientation: Person and Situation Level of Consciousness: Awake Patient Behavior: Cooperative Mood Description: Withdrawn Affect Description: Constricted Patient Cognition Impaired: Yes Ability to Follow Directions: Good Speech Pattern: Clear Hallucinations: None Delusions: Paranoid Ideation Thought Process: Distracted Thought Content: positive for [place] and positive for Circumstantial Judgement: Fair Assessment & Plan Assessment & Plan (1) Bipolar disorder: Status: Acute Code(s): F31.9 - Bipolar disorder, unspecified (2) Cognitive disorder: Status: Acute Code(s): F09 - Unspecified mental disorder due to known physiological condition (3) Obesity: Status: Acute Code(s): E66.9 - Obesity, unspecified (4) HTN (hypertension): Status: Acute Code(s): I10 - Essential (primary) hypertension Plan the patient is an elderly female with a long history of bipolar disorder who was very well controlled with lithium but it was discontinued due to chronic renal failure October this year with decompensation. Now she was found disorganized in the street. Plan 1. Gather collateral information. 2. Continue with same medications. 3. We will get a Depakote level in the next days. Patient educated on: diagnosis and therapeutic strategies Reason for continued inpatient stay Substantial Risk for: harm to self, inability to function, rapid decompensation and med/psych decompensation
[2022-05-20 18:00] VITALS: BP 170/74; PULSE 67; RESP 16; TEMP 36.5; O2SAT 97
[2022-05-20] MEDS: traZODone HCL 50 MG TABLET PO (21:39)
[2022-05-20] MEDS: OLANZapine 5 MG TABLET PO (21:39)
[2022-05-20] MEDS: Atorvastatin Calcium 10 MG TABLET PO (21:40)
[2022-05-21] MEDS: Omeprazole 20 MG CAPSULE.DR PO (06:42)
[2022-05-21] MEDS: lamoTRIgine 25 MG TABLET 50 MG PO ×2 (10:18→21:06)
[2022-05-21] MEDS: amLODIPine Besylate 5 MG TABLET PO (10:18)
[2022-05-21] MEDS: metFORMIN HCl ER 500 MG TAB.ER.24H PO (10:18)
[2022-05-21] MEDS: Divalproex Sodium 500 MG TABLET.DR PO ×2 (10:18→21:06)
--- NOTE | 2022-05-21 16:25 | P.PNPSI_ITS ---
Subjective Subjective Date of Service: 05/21/22 Reason For Visit: psychosis Subjective Notes: Conditional Voluntary Interim History: The nursing staff reported the patient has been fully compliant with treatment, she denies new symptoms. On interview the patient reports that she is doing fine and she was slightly confused why she was brought here. Mental Status Exam Mental Status Exam Patient Appearance: Well Grooomed Patient Orientation: Person and Situation Level of Consciousness: Awake Patient Behavior: Cooperative Mood Description: Calm Affect Description: Constricted Patient Cognition Impaired: Yes Ability to Follow Directions: Good Speech Pattern: Clear Hallucinations: None Delusions: Not Present Thought Process: Illogical and Distracted Thought Content: positive for [place] Judgement: Fair Diagnostics Vital Signs (24Hr): Vital Signs - 24 hr 05/20/22 18:00 Temperature 97.7 F Pulse Rate 67 Respiratory Rate 16 Blood Pressure 170/74 H Pulse Oximetry 97 Oxygen Delivery Method Room Air BMI result Body Mass Index 34.5 Labs Results: 05/20/22 08:18 05/20/22 08:18 Labs: Laboratory Results - last 48 hr 05/20/22 05/20/22 08:18 08:18 WBC 7.0 RBC 3.85 L Hgb 11.4 L Hct 36.1 L MCV 93.8 MCH 29.6 MCHC 31.6 RDW 13.9 Plt Count 243 MPV 10.5 Immature Gran % (Auto) 0.3 Neut % (Auto) 63.0 Lymph % (Auto) 27.6 [place] % (Auto) 5.3 Eos % (Auto) 3.4 Baso % (Auto) 0.4 Lymph # (Auto) 1.9 [place] # (Auto) 0.4 Eos # (Auto) 0.2 Baso # (Auto) 0.0 Abs Immat Gran (auto) 0.02 Absolute Neuts (auto) 4.4 Absolute Nucleated RBC 0.000 Nucleated RBC % (auto) 0.0 Sodium 145 Potassium 4.1 Chloride 107 Carbon Dioxide 26 Anion Gap 16 BUN 27 H Creatinine 1.43 H Estim Creat Clear Calc 34.5 Estimated GFR 36 Fasting Glucose 92 Calcium 9.4 Total Bilirubin 0.3 AST 17 ALT 17 Alkaline Phosphatase 77 Total Protein 6.9 Albumin 4.0 Triglycerides 145 Cholesterol 208 D LDL Cholesterol, Calc 138 HDL Cholesterol 41 Medications Medications Current Medications Al Hydroxide/Mg Hydroxide (Magnesium Hydrox/Alum Hydrox 30 Ml Oral.Susp) 30 ml PO Q6H PRN PRN Reason: Heartburn/Nausea Amlodipine Besylate (Amlodipine Besylate 5 Mg Tablet) 5 mg PO DAILY [facility]; Protocol Last Admin: 05/21/22 10:18 Dose: 5 mg Atorvastatin Calcium (Atorvastatin Calcium 10 Mg Tablet) 10 mg PO BEDTIME [facility] Last Admin: 05/20/22 21:40 Dose: 10 mg Divalproex Sodium (Divalproex Sodium 500 Mg Tablet.Dr) 500 mg PO BID [facility] Last Admin: 05/21/22 10:18 Dose: 500 mg Hydroxyzine HCl (Hydroxyzine Hcl 25 Mg Tablet) 25 mg PO Q6H PRN PRN Reason: Anxiety Lamotrigine (Lamotrigine 25 Mg Tablet) 50 mg PO BID [facility] Last Admin: 05/21/22 10:18 Dose: 50 mg Magnesium Hydroxide (Milk Of Magnesia 30 Ml Oral.Susp) 30 ml PO DAILY PRN PRN Reason: Constipation Metformin HCl (Metformin Hcl Er 500 Mg Tab.Er.24h) 500 mg PO DAILY [facility] Last Admin: 05/21/22 10:18 Dose: 500 mg Olanzapine (Olanzapine 5 Mg Tablet) 5 mg PO BEDTIME [facility] Last Admin: 05/20/22 21:39 Dose: 5 mg Omeprazole (Omeprazole 20 Mg Capsule.Dr) 20 mg PO DAILY@0600 [facility] Last Admin: 05/21/22 06:42 Dose: 20 mg Torsemide (Torsemide 20 Mg Tablet) 20 mg PO DAILY PRN; Protocol PRN Reason: swelling Trazodone HCl (Trazodone Hcl 50 Mg Tablet) 50 mg PO BEDTIME PRN PRN Reason: Insomnia Last Admin: 05/20/22 21:39 Dose: 50 mg Allergies Allergies Allergy/AdvReac Type Severity Reaction Status Date / Time No Known Allergies Allergy Verified 10/22/21 10:21 [No Known Allergies*] Assessment & Plan Assessment & Plan (1) Bipolar disorder: Status: Acute Code(s): F31.9 - Bipolar disorder, unspecified (2) Cognitive disorder: Status: Acute Code(s): F09 - Unspecified mental disorder due to known physiological condition (3) Obesity: Status: Acute Code(s): E66.9 - Obesity, unspecified (4) HTN (hypertension): Status: Acute Code(s): I10 - Essential (primary) hypertension Plan the patient is an elderly female with a long history of bipolar disorder who was very well controlled with lithium but it was discontinued due to chronic renal failure October this year with decompensation. Now she was found disorganized in the street. Plan 1. Gather collateral information. 2. Continue with same medications. 3. We will get a Depakote level in the next days. I spent ___20___ minutes with the patient and/or on the patient floor today, greater than?50% of which was spent counseling/coordinating care. Reason for contiued inpatient stay Substantial Risk for: inability to function, rapid decompensation and med/psych decompensation
[2022-05-21 18:00] VITALS: BP 142/63; PULSE 81; RESP 14; TEMP 37; O2SAT 81
[2022-05-21] MEDS: OLANZapine 5 MG TABLET PO (21:06)
[2022-05-21] MEDS: Atorvastatin Calcium 10 MG TABLET PO (21:06)
[2022-05-22] MEDS: Omeprazole 20 MG CAPSULE.DR PO (06:33)
[2022-05-22 07:30] VITALS: BP 140/64; PULSE 81; RESP 16; TEMP 36.2; O2SAT 94
[2022-05-22] MEDS: amLODIPine Besylate 5 MG TABLET PO (09:41)
[2022-05-22] MEDS: lamoTRIgine 25 MG TABLET 50 MG PO ×2 (09:42→20:32)
[2022-05-22] MEDS: Divalproex Sodium 500 MG TABLET.DR PO ×2 (09:42→20:32)
[2022-05-22] MEDS: metFORMIN HCl ER 500 MG TAB.ER.24H PO (09:42)
[2022-05-22 13:43] VITALS: BP 142/65
--- NOTE | 2022-05-22 15:01 | P.PNPSI_ITS ---
Subjective Subjective Date of Service: 05/22/22 Reason For Visit: psychosis Subjective Notes: Conditional Voluntary Interim History: The nursing staff reported the patient has been social with peers pleasant and compliant with medications. The occupational therapist reported there was a diminishing of her functioning. Her Gaudencio test is now 3.6 and before a few weeks ago was 4.0. Her [place] now is 16/30 minutes before was 23/30. The social media community manager spoke to with her sister and they were concerned about the disinhibited behavior in the community. There is the possibility that she was abusing alcohol but his blood alcohol level on admission was 0. The sister advocated for guardianship but currently the patient wants to take her own decisions and even though that she is mildly cognitively impaired she is able to contract for safety and she is fully compliant with treatment. The possibility of getting guardianship is very limited at this moment. On on interview, the patient was wrestling comfortable on her bed and denies new symptoms. Mental Status Exam Mental Status Exam Patient Appearance: Well Grooomed Patient Orientation: Person and Situation Level of Consciousness: Awake Patient Behavior: Cooperative Mood Description: Calm Affect Description: Constricted Patient Cognition Impaired: Yes Ability to Follow Directions: Good Speech Pattern: Clear Memory Description: Intact Hallucinations: None Delusions: Not Present Thought Process: Distracted Thought Content: positive for [place] and positive for [place] Judgement: Fair Diagnostics Vital Signs (24Hr): Vital Signs - 24 hr 05/21/22 18:00 05/22/22 07:30 05/22/22 13:43 Temperature 98.6 F 97.1 F Pulse Rate 81 81 Respiratory Rate 14 16 Blood Pressure 142/63 H 140/64 H 142/65 H Pulse Oximetry 81 L 94 Oxygen Delivery Method Room Air BMI result Body Mass Index 34.5 Labs Results: 05/20/22 08:18 05/20/22 08:18 Medications Medications Current Medications Al Hydroxide/Mg Hydroxide (Magnesium Hydrox/Alum Hydrox 30 Ml Oral.Susp) 30 ml PO Q6H PRN PRN Reason: Heartburn/Nausea Amlodipine Besylate (Amlodipine Besylate 5 Mg Tablet) 5 mg PO DAILY [facility]; Protocol Last Admin: 05/22/22 09:41 Dose: 5 mg Atorvastatin Calcium (Atorvastatin Calcium 10 Mg Tablet) 10 mg PO BEDTIME [facility] Last Admin: 05/21/22 21:06 Dose: 10 mg Divalproex Sodium (Divalproex Sodium 500 Mg Tablet.) 500 mg PO BID [facility] Last Admin: 05/22/22 09:42 Dose: 500 mg Hydroxyzine HCl (Hydroxyzine Hcl 25 Mg Tablet) 25 mg PO Q6H PRN PRN Reason: Anxiety Lamotrigine (Lamotrigine 25 Mg Tablet) 50 mg PO BID [facility] Last Admin: 05/22/22 09:42 Dose: 50 mg Magnesium Hydroxide (Milk Of Magnesia 30 Ml Oral.Susp) 30 ml PO DAILY PRN PRN Reason: Constipation Metformin HCl (Metformin Hcl Er 500 Mg Tab.Er.24h) 500 mg PO DAILY [facility] Last Admin: 05/22/22 09:42 Dose: 500 mg Olanzapine (Olanzapine 5 Mg Tablet) 5 mg PO BEDTIME [facility] Last Admin: 05/21/22 21:06 Dose: 5 mg Omeprazole (Omeprazole 20 Mg Capsule.) 20 mg PO DAILY@0600 [facility] Last Admin: 05/22/22 06:33 Dose: 20 mg Torsemide (Torsemide 20 Mg Tablet) 20 mg PO DAILY PRN; Protocol PRN Reason: swelling Trazodone HCl (Trazodone Hcl 50 Mg Tablet) 50 mg PO BEDTIME PRN PRN Reason: Insomnia Last Admin: 05/20/22 21:39 Dose: 50 mg Allergies Allergies Allergy/AdvReac Type Severity Reaction Status Date / Time No Known Allergies Allergy Verified 10/22/21 10:21 [No Known Allergies*] Assessment & Plan Assessment & Plan (1) Bipolar disorder: Status: Acute Code(s): F31.9 - Bipolar disorder, unspecified (2) Cognitive disorder: Status: Acute Code(s): F09 - Unspecified mental disorder due to known physiological condition (3) Obesity: Status: Acute Code(s): E66.9 - Obesity, unspecified (4) HTN (hypertension): Status: Acute Code(s): I10 - Essential (primary) hypertension Plan the patient is an elderly female with a long history of bipolar disorder who was very well controlled with lithium but it was discontinued due to chronic renal failure October this year with decompensation. Now she was found disorganized in the street. Plan 1. Gather collateral information. 2. Continue with same medications. 3. We will get a Depakote level in the next days. I spent __20____ minutes with the patient and/or on the patient floor today, greater than?50% of which was spent counseling/coordinating care. Reason for contiued inpatient stay Substantial Risk for: inability to function, rapid decompensation and med/psych decompensation
[2022-05-22 18:00] VITALS: BP 144/65; PULSE 84; RESP 16; TEMP 36.4; O2SAT 90
[2022-05-22] MEDS: OLANZapine 5 MG TABLET PO (20:31)
[2022-05-22] MEDS: Atorvastatin Calcium 10 MG TABLET PO (20:32)
[2022-05-22] MEDS: traZODone HCL 50 MG TABLET PO (20:32)
[2022-05-23 06:00] VITALS: BP 133/60; PULSE 70; RESP 14; TEMP 36; O2SAT 88
[2022-05-23 07:00] VITALS: BMI 31.1
[2022-05-23] MEDS: Divalproex Sodium 500 MG TABLET.DR PO ×2 (08:12→20:26)
[2022-05-23] MEDS: metFORMIN HCl ER 500 MG TAB.ER.24H PO (08:12)
[2022-05-23] MEDS: Omeprazole 20 MG CAPSULE.DR PO (08:12)
[2022-05-23] MEDS: amLODIPine Besylate 5 MG TABLET PO (08:13)
[2022-05-23] MEDS: lamoTRIgine 25 MG TABLET 50 MG PO ×2 (08:13→20:26)
--- NOTE | 2022-05-23 13:09 | HO.PSYCHPN ---
Subjective Subjective Date of Service: 05/23/22 Reason For Visit: psychosis Subjective Notes: Conditional Voluntary Interim History: The nursing staff reported the patient has been compliant with treatment while in the unit we have not seen hypomanic, spending most of the time in her room reading her book. The social service director reported the family wants guardianship but at this moment she is not disoriented. On interview, she denies new symptoms, no evidence of [place] Mental Status Exam Mental Status Exam Patient Appearance: Well Grooomed Patient Orientation: Person and Situation Level of Consciousness: Appropriate Patient Behavior: Cooperative and Passive Mood Description: Calm Affect Description: Constricted Patient Cognition Impaired: Yes Ability to Follow Directions: Good Speech Pattern: Clear Hallucinations: None Delusions: Not Present Thought Process: Distracted Thought Content: positive for [place] Judgement: Fair Diagnostics Vital Signs (24Hr): Vital Signs - 24 hr 05/22/22 13:43 05/22/22 18:00 05/23/22 06:00 Temperature 97.5 F 96.8 F Pulse Rate 84 70 Respiratory Rate 16 14 Blood Pressure 142/65 H 144/65 H 133/60 Pulse Oximetry 90 L 88 L Oxygen Delivery Method Room Air Room Air BMI result Body Mass Index 34.5 Labs Results: 05/20/22 08:18 05/20/22 08:18 Medications Medications Current Medications Al Hydroxide/Mg Hydroxide (Magnesium Hydrox/Alum Hydrox 30 Ml Oral.Susp) 30 ml PO Q6H PRN PRN Reason: Heartburn/Nausea Amlodipine Besylate (Amlodipine Besylate 5 Mg Tablet) 5 mg PO DAILY [facility]; Protocol Last Admin: 05/23/22 08:13 Dose: 5 mg Atorvastatin Calcium (Atorvastatin Calcium 10 Mg Tablet) 10 mg PO BEDTIME [facility] Last Admin: 05/22/22 20:32 Dose: 10 mg Divalproex Sodium (Divalproex Sodium 500 Mg Tablet.Dr) 500 mg PO BID [facility] Last Admin: 05/23/22 08:12 Dose: 500 mg Hydroxyzine HCl (Hydroxyzine Hcl 25 Mg Tablet) 25 mg PO Q6H PRN PRN Reason: Anxiety Lamotrigine (Lamotrigine 25 Mg Tablet) 50 mg PO BID [facility] Last Admin: 05/23/22 08:13 Dose: 50 mg Magnesium Hydroxide (Milk Of Magnesia 30 Ml Oral.Susp) 30 ml PO DAILY PRN PRN Reason: Constipation Metformin HCl (Metformin Hcl Er 500 Mg Tab.Er.24h) 500 mg PO DAILY [facility] Last Admin: 05/23/22 08:12 Dose: 500 mg Olanzapine (Olanzapine 5 Mg Tablet) 5 mg PO BEDTIME [facility] Last Admin: 05/22/22 20:31 Dose: 5 mg Omeprazole (Omeprazole 20 Mg Capsule.Dr) 20 mg PO DAILY@0600 [facility] Last Admin: 05/23/22 08:12 Dose: 20 mg Torsemide (Torsemide 20 Mg Tablet) 20 mg PO DAILY PRN; Protocol PRN Reason: swelling Trazodone HCl (Trazodone Hcl 50 Mg Tablet) 50 mg PO BEDTIME PRN PRN Reason: Insomnia Last Admin: 05/22/22 20:32 Dose: 50 mg Allergies Allergies Allergy/AdvReac Type Severity Reaction Status Date / Time No Known Allergies Allergy Verified 10/22/21 10:21 [No Known Allergies*] Assessment & Plan Assessment & Plan (1) Bipolar disorder: Status: Acute Code(s): F31.9 - Bipolar disorder, unspecified (2) Cognitive disorder: Status: Acute Code(s): F09 - Unspecified mental disorder due to known physiological condition (3) Obesity: Status: Acute Code(s): E66.9 - Obesity, unspecified (4) HTN (hypertension): Status: Acute Code(s): I10 - Essential (primary) hypertension Plan the patient is an elderly female with a long history of bipolar disorder who was very well controlled with lithium but it was discontinued due to chronic renal failure October this year with decompensation. Now she was found disorganized in the street. Plan 1. Gather collateral information. 2. Continue with same medications. 3. We will get a Depakote level in the next days. I spent __20____ minutes with the patient and/or on the patient floor today, greater than?50% of which was spent counseling/coordinating care. Reason for contiued inpatient stay Substantial Risk for: inability to function, rapid decompensation and med/psych decompensation
[2022-05-23 18:00] VITALS: BP 148/67; PULSE 79; TEMP 36.3; O2SAT 93
[2022-05-23] MEDS: Atorvastatin Calcium 10 MG TABLET PO (20:26)
[2022-05-23] MEDS: OLANZapine 5 MG TABLET PO (20:26)
[2022-05-23] MEDS: traZODone HCL 50 MG TABLET PO (20:26)
[2022-05-24] MEDS: Omeprazole 20 MG CAPSULE.DR PO (06:26)
[2022-05-24 07:45] VITALS: BP 153/63; PULSE 78; RESP 16; TEMP 35.7
[2022-05-24] MEDS: Divalproex Sodium 500 MG TABLET.DR PO ×2 (08:01→21:37)
[2022-05-24] MEDS: amLODIPine Besylate 5 MG TABLET PO (08:01)
[2022-05-24] MEDS: metFORMIN HCl ER 500 MG TAB.ER.24H PO (08:01)
[2022-05-24] MEDS: lamoTRIgine 25 MG TABLET 50 MG PO ×2 (08:02→21:35)
--- NOTE | 2022-05-24 14:33 | P.PNPSI_ITS ---
Subjective Subjective Date of Service: 05/24/22 Reason For Visit: psychosis Subjective Notes: Conditional Voluntary Interim History: The nursing staff reported the patient has been pleasant and cooperative, she was been mostly of her time in her room reading her books. The occupational therapist reported that she looks depressed but she is able to perform all her ADL less. On interview the patient denies new symptoms. Mental Status Exam Mental Status Exam Patient Appearance: Well Grooomed Patient Orientation: Person and Situation Level of Consciousness: Awake Patient Behavior: Cooperative Mood Description: Calm Affect Description: Constricted Speech Pattern: Clear Hallucinations: None Delusions: Not Present Thought Content: positive for [place] and positive for [place] Judgement: Fair Diagnostics Vital Signs (24Hr): Vital Signs - 24 hr 05/23/22 18:00 05/24/22 07:45 Temperature 97.3 F 96.3 F L Pulse Rate 79 78 Respiratory Rate 16 Blood Pressure 148/67 H 153/63 H Pulse Oximetry 93 Oxygen Delivery Method Room Air BMI result Body Mass Index 31.1 Labs Results: 05/20/22 08:18 05/20/22 08:18 Medications Medications Current Medications Al Hydroxide/Mg Hydroxide (Magnesium Hydrox/Alum Hydrox 30 Ml Oral.Susp) 30 ml PO Q6H PRN PRN Reason: Heartburn/Nausea Amlodipine Besylate (Amlodipine Besylate 5 Mg Tablet) 5 mg PO DAILY [facility]; Protocol Last Admin: 05/24/22 08:01 Dose: 5 mg Atorvastatin Calcium (Atorvastatin Calcium 10 Mg Tablet) 10 mg PO BEDTIME [facility] Last Admin: 05/23/22 20:26 Dose: 10 mg Divalproex Sodium (Divalproex Sodium 500 Mg Tablet.) 500 mg PO BID [facility] Last Admin: 05/24/22 08:01 Dose: 500 mg Hydroxyzine HCl (Hydroxyzine Hcl 25 Mg Tablet) 25 mg PO Q6H PRN PRN Reason: Anxiety Lamotrigine (Lamotrigine 25 Mg Tablet) 50 mg PO BID [facility] Last Admin: 05/24/22 08:02 Dose: 50 mg Magnesium Hydroxide (Milk Of Magnesia 30 Ml Oral.Susp) 30 ml PO DAILY PRN PRN Reason: Constipation Metformin HCl (Metformin Hcl Er 500 Mg Tab.Er.24h) 500 mg PO DAILY [facility] Last Admin: 05/24/22 08:01 Dose: 500 mg Olanzapine (Olanzapine 5 Mg Tablet) 5 mg PO BEDTIME [facility] Last Admin: 05/23/22 20:26 Dose: 5 mg Omeprazole (Omeprazole 20 Mg Capsule.Dr) 20 mg PO DAILY@0600 [facility] Last Admin: 05/24/22 06:26 Dose: 20 mg Torsemide (Torsemide 20 Mg Tablet) 20 mg PO DAILY [facility]; Protocol PRN Reason: swelling Trazodone HCl (Trazodone Hcl 50 Mg Tablet) 50 mg PO BEDTIME PRN PRN Reason: Insomnia Last Admin: 05/23/22 20:26 Dose: 50 mg Allergies Allergies Allergy/AdvReac Type Severity Reaction Status Date / Time No Known Allergies Allergy Verified 10/22/21 10:21 [No Known Allergies*] Assessment & Plan Assessment & Plan (1) Bipolar disorder: Status: Acute Code(s): F31.9 - Bipolar disorder, unspecified (2) Cognitive disorder: Status: Acute Code(s): F09 - Unspecified mental disorder due to known physiological condition (3) Obesity: Status: Acute Code(s): E66.9 - Obesity, unspecified (4) HTN (hypertension): Status: Acute Code(s): I10 - Essential (primary) hypertension Plan the patient is an elderly female with a long history of bipolar disorder who was very well controlled with lithium but it was discontinued due to chronic renal failure October this year with decompensation. Now she was found disorganized in the street. Plan 1. Gather collateral information. 2. Continue with same medications. 3. We will get a Depakote level in the next days. I spent __20____ minutes with the patient and/or on the patient floor today, greater than?50% of which was spent counseling/coordinating care. Reason for contiued inpatient stay Substantial Risk for: inability to function, rapid decompensation and med/psych decompensation
[2022-05-24 18:00] VITALS: BP 134/52; PULSE 71; RESP 16; TEMP 37.1; O2SAT 93
[2022-05-24] MEDS: Atorvastatin Calcium 10 MG TABLET PO (21:37)
[2022-05-24] MEDS: OLANZapine 5 MG TABLET PO (21:39)
[2022-05-25] MEDS: Acetaminophen 325 MG TABLET 650 MG PO ×2 (06:37→20:07)
[2022-05-25] MEDS: Omeprazole 20 MG CAPSULE.DR PO (06:40)
[2022-05-25 08:25] VITALS: BP 133/61; PULSE 64; RESP 16; TEMP 36.1; O2SAT 96
[2022-05-25] MEDS: lamoTRIgine 25 MG TABLET 50 MG PO ×2 (08:29→20:06)
[2022-05-25] MEDS: amLODIPine Besylate 5 MG TABLET PO (08:30)
[2022-05-25] MEDS: metFORMIN HCl ER 500 MG TAB.ER.24H PO (08:30)
[2022-05-25] MEDS: Divalproex Sodium 500 MG TABLET.DR PO ×2 (08:30→20:06)
--- NOTE | 2022-05-25 08:45 | HO.PSYCHPN ---
Subjective Subjective Date of Service: 05/25/22 Reason For Visit: psychosis Subjective Notes: Conditional Voluntary Interim History: the nursing staff reported the patient has been pleasant and cooperative, with a brighter affect. She complained of back pain and she took Tylenol. She slept well all night. On interview the patient denies new symptoms Mental Status Exam Mental Status Exam Patient Appearance: Well Grooomed Patient Orientation: Person and Situation Level of Consciousness: Awake Patient Behavior: Cooperative Mood Description: Calm Affect Description: Labile Patient Cognition Impaired: Yes Ability to Follow Directions: Good Speech Pattern: Clear Hallucinations: None Delusions: Not Present Thought Process: Distracted Thought Content: positive for [place] Judgement: Fair Diagnostics Vital Signs (24Hr): Vital Signs - 24 hr 05/24/22 18:00 Temperature 98.8 F Pulse Rate 71 Respiratory Rate 16 Blood Pressure 134/52 L Pulse Oximetry 93 Oxygen Delivery Method Room Air BMI result Body Mass Index 31.1 Labs Results: 05/20/22 08:18 05/20/22 08:18 Medications Medications Current Medications Acetaminophen (Acetaminophen 325 Mg Tablet) 650 mg PO Q6H PRN PRN Reason: Pain, Severe (Pain Scale 7-10) Last Admin: 05/25/22 06:37 Dose: 650 mg Al Hydroxide/Mg Hydroxide (Magnesium Hydrox/Alum Hydrox 30 Ml Oral.Susp) 30 ml PO Q6H PRN PRN Reason: Heartburn/Nausea Amlodipine Besylate (Amlodipine Besylate 5 Mg Tablet) 5 mg PO DAILY [facility]; Protocol Last Admin: 05/25/22 08:30 Dose: 5 mg Atorvastatin Calcium (Atorvastatin Calcium 10 Mg Tablet) 10 mg PO BEDTIME [facility] Last Admin: 05/24/22 21:37 Dose: 10 mg Divalproex Sodium (Divalproex Sodium 500 Mg Tablet.Dr) 500 mg PO BID [facility] Last Admin: 05/25/22 08:30 Dose: 500 mg Hydroxyzine HCl (Hydroxyzine Hcl 25 Mg Tablet) 25 mg PO Q6H PRN PRN Reason: Anxiety Lamotrigine (Lamotrigine 25 Mg Tablet) 50 mg PO BID [facility] Last Admin: 05/25/22 08:29 Dose: 50 mg Magnesium Hydroxide (Milk Of Magnesia 30 Ml Oral.Susp) 30 ml PO DAILY PRN PRN Reason: Constipation Metformin HCl (Metformin Hcl Er 500 Mg Tab.Er.24h) 500 mg PO DAILY [facility] Last Admin: 05/25/22 08:30 Dose: 500 mg Olanzapine (Olanzapine 5 Mg Tablet) 5 mg PO BEDTIME [facility] Last Admin: 05/24/22 21:39 Dose: 5 mg Omeprazole (Omeprazole 20 Mg Capsule.Dr) 20 mg PO DAILY@0600 [facility] Last Admin: 05/25/22 06:40 Dose: 20 mg Torsemide (Torsemide 20 Mg Tablet) 20 mg PO DAILY [facility]; Protocol PRN Reason: swelling Trazodone HCl (Trazodone Hcl 50 Mg Tablet) 50 mg PO BEDTIME PRN PRN Reason: Insomnia Last Admin: 05/23/22 20:26 Dose: 50 mg Allergies Allergies Allergy/AdvReac Type Severity Reaction Status Date / Time No Known Allergies Allergy Verified 10/22/21 10:21 [No Known Allergies*] Assessment & Plan Assessment & Plan (1) Bipolar disorder: Status: Acute Code(s): F31.9 - Bipolar disorder, unspecified (2) Cognitive disorder: Status: Acute Code(s): F09 - Unspecified mental disorder due to known physiological condition (3) Obesity: Status: Acute Code(s): E66.9 - Obesity, unspecified (4) HTN (hypertension): Status: Acute Code(s): I10 - Essential (primary) hypertension Plan the patient is an elderly female with a long history of bipolar disorder who was very well controlled with lithium but it was discontinued due to chronic renal failure October this year with decompensation. Now she was found disorganized in the street. Plan 1. Gather collateral information. 2. Continue with same medications. 3. We will get a Depakote level in the next days. I spent ___20___ minutes with the patient and/or on the patient floor today, greater than?50% of which was spent counseling/coordinating care. Reason for contiued inpatient stay Substantial Risk for: inability to function, rapid decompensation and med/psych decompensation
[2022-05-25] MEDS: traMADoL HCL 50 MG TABLET PO (10:39)
[2022-05-25 18:00] VITALS: BP 135/69; PULSE 79; RESP 17; TEMP 36.6; O2SAT 93
[2022-05-25] MEDS: Atorvastatin Calcium 10 MG TABLET PO (20:06)
[2022-05-25] MEDS: OLANZapine 5 MG TABLET PO (20:06)
[2022-05-26] MEDS: Omeprazole 20 MG CAPSULE.DR PO (05:48)
[2022-05-26 08:00] VITALS: BP 178/79; PULSE 66; RESP 17; TEMP 36.1; O2SAT 96
[2022-05-26] MEDS: metFORMIN HCl ER 500 MG TAB.ER.24H PO (08:12)
[2022-05-26] MEDS: lamoTRIgine 25 MG TABLET 50 MG PO ×2 (08:12→20:41)
[2022-05-26] MEDS: Divalproex Sodium 500 MG TABLET.DR PO ×2 (08:12→20:41)
[2022-05-26] MEDS: amLODIPine Besylate 5 MG TABLET PO (08:12)
[2022-05-26] MEDS: Acetaminophen 325 MG TABLET 650 MG PO (08:16)
--- NOTE | 2022-05-26 10:56 | HO.PSYCHPN ---
Subjective Subjective Date of Service: 05/26/22 Reason For Visit: psychosis Subjective Notes: Conditional Voluntary Interim History: The nursing staff reported the patient has been cooperative and pleasant, he ate 100% of her meals and she slept 7 hours. She reported that she was over-sedated with tramadol due to back pain. On interview the patient denies new symptoms besides oversedation with Tramadol Mental Status Exam Mental Status Exam Patient Appearance: Well Grooomed Patient Orientation: Person Level of Consciousness: Awake Patient Behavior: Cooperative Mood Description: Constricted Affect Description: Labile Patient Cognition Impaired: Yes Ability to Follow Directions: Good Speech Pattern: Clear Hallucinations: None Delusions: Not Present Thought Process: Distracted Thought Content: positive for Circumstantial Judgement: Fair Diagnostics Vital Signs (24Hr): Vital Signs - 24 hr 05/25/22 18:00 05/26/22 08:00 Temperature 97.9 F 96.9 F Pulse Rate 79 66 Respiratory Rate 17 17 Blood Pressure 135/69 178/79 H Pulse Oximetry 93 96 Oxygen Delivery Method Room Air Room Air BMI result Body Mass Index 31.1 Labs Results: 05/20/22 08:18 05/20/22 08:18 Medications Medications Current Medications Acetaminophen (Acetaminophen 325 Mg Tablet) 650 mg PO Q6H PRN PRN Reason: Pain, Severe (Pain Scale 7-10) Last Admin: 05/26/22 08:16 Dose: 650 mg Al Hydroxide/Mg Hydroxide (Magnesium Hydrox/Alum Hydrox 30 Ml Oral.Susp) 30 ml PO Q6H PRN PRN Reason: Heartburn/Nausea Amlodipine Besylate (Amlodipine Besylate 5 Mg Tablet) 5 mg PO DAILY [facility]; Protocol Last Admin: 05/26/22 08:12 Dose: 5 mg Atorvastatin Calcium (Atorvastatin Calcium 10 Mg Tablet) 10 mg PO BEDTIME [facility] Last Admin: 05/25/22 20:06 Dose: 10 mg Divalproex Sodium (Divalproex Sodium 500 Mg Tablet.Dr) 500 mg PO BID [facility] Last Admin: 05/26/22 08:12 Dose: 500 mg Hydroxyzine HCl (Hydroxyzine Hcl 25 Mg Tablet) 25 mg PO Q6H PRN PRN Reason: Anxiety Lamotrigine (Lamotrigine 25 Mg Tablet) 50 mg PO BID [facility] Last Admin: 05/26/22 08:12 Dose: 50 mg Magnesium Hydroxide (Milk Of Magnesia 30 Ml Oral.Susp) 30 ml PO DAILY PRN PRN Reason: Constipation Metformin HCl (Metformin Hcl Er 500 Mg Tab.Er.24h) 500 mg PO DAILY [facility] Last Admin: 05/26/22 08:12 Dose: 500 mg Olanzapine (Olanzapine 5 Mg Tablet) 5 mg PO BEDTIME [facility] Last Admin: 05/25/22 20:06 Dose: 5 mg Omeprazole (Omeprazole 20 Mg Capsule.Dr) 20 mg PO DAILY@0600 [facility] Last Admin: 05/26/22 05:48 Dose: 20 mg Torsemide (Torsemide 20 Mg Tablet) 20 mg PO DAILY PRN; Protocol PRN Reason: swelling Tramadol HCl (Tramadol Hcl 50 Mg Tablet) 50 mg PO Q6H PRN PRN Reason: Pain, Moderate (Pain Scale 4-6 Trazodone HCl (Trazodone Hcl 50 Mg Tablet) 50 mg PO BEDTIME PRN PRN Reason: Insomnia Last Admin: 05/23/22 20:26 Dose: 50 mg Allergies Allergies Allergy/AdvReac Type Severity Reaction Status Date / Time No Known Allergies Allergy Verified 10/22/21 10:21 [No Known Allergies*] Assessment & Plan Assessment & Plan (1) Bipolar disorder: Status: Acute Code(s): F31.9 - Bipolar disorder, unspecified (2) Cognitive disorder: Status: Acute Code(s): F09 - Unspecified mental disorder due to known physiological condition (3) Obesity: Status: Acute Code(s): E66.9 - Obesity, unspecified (4) HTN (hypertension): Status: Acute Code(s): I10 - Essential (primary) hypertension Plan the patient is an elderly female with a long history of bipolar disorder who was very well controlled with lithium but it was discontinued due to chronic renal failure October this year with decompensation. Now she was found disorganized in the street. Plan 1. Gather collateral information. 2. Continue with same medications. 3. We will get a Depakote level in the next days. 4. Lower Tramadol to 25 mg due t0 oversedation. I spent ___20___ minutes with the patient and/or on the patient floor today, greater than?50% of which was spent counseling/coordinating care. Reason for contiued inpatient stay Substantial Risk for: inability to function, rapid decompensation and med/psych decompensation
[2022-05-26 18:00] VITALS: BP 169/70; PULSE 75; RESP 16; TEMP 36.4; O2SAT 98
[2022-05-26] MEDS: OLANZapine 5 MG TABLET PO (20:41)
[2022-05-26] MEDS: Atorvastatin Calcium 10 MG TABLET PO (20:41)
[2022-05-27 06:00] VITALS: BP 179/77; PULSE 69; RESP 16; TEMP 36.6; O2SAT 95
[2022-05-27] MEDS: Omeprazole 20 MG CAPSULE.DR PO (06:02)
[2022-05-27] MEDS: metFORMIN HCl ER 500 MG TAB.ER.24H PO (09:05)
[2022-05-27] MEDS: lamoTRIgine 25 MG TABLET 50 MG PO ×2 (09:05→20:36)
[2022-05-27] MEDS: amLODIPine Besylate 5 MG TABLET PO (09:05)
[2022-05-27] MEDS: Divalproex Sodium 500 MG TABLET.DR PO ×2 (09:05→20:37)
[2022-05-27 11:43] LABS: Creatinine Clr Calc Pharmacy 26.7; Estimated Glomerular Filt Rate 28
--- NOTE | 2022-05-27 15:36 | HO.PSYCHPN ---
Subjective Subjective Date of Service: 05/27/22 Reason For Visit: psychosis Subjective Notes: Conditional Voluntary Interim History: The nursing staff reported the patient has been isolative in her room, she slept all night long. On interview the patient denies new symptoms no evidence of pain at this moment Mental Status Exam Mental Status Exam Patient Appearance: Well Grooomed Patient Orientation: Person and Situation Level of Consciousness: Awake Patient Behavior: Cooperative Mood Description: Withdrawn Affect Description: Constricted Patient Cognition Impaired: Yes Ability to Follow Directions: Good Speech Pattern: Clear Hallucinations: None Delusions: Not Present Thought Process: Distracted Thought Content: positive for [place] Judgement: Fair Diagnostics Vital Signs (24Hr): Vital Signs - 24 hr 05/26/22 18:00 Temperature 97.5 F Pulse Rate 75 Respiratory Rate 16 Blood Pressure 169/70 H Pulse Oximetry 98 Oxygen Delivery Method Room Air BMI result Body Mass Index 31.1 Labs Results: 05/20/22 08:18 05/27/22 11:20 Labs: Laboratory Results - last 48 hr 05/27/22 11:20 Creatinine 1.75 H Estim Creat Clear Calc 26.7 Estimated GFR 28 Medications Medications Current Medications Acetaminophen (Acetaminophen 325 Mg Tablet) 650 mg PO Q6H PRN PRN Reason: Pain, Severe (Pain Scale 7-10) Last Admin: 05/26/22 08:16 Dose: 650 mg Al Hydroxide/Mg Hydroxide (Magnesium Hydrox/Alum Hydrox 30 Ml Oral.Susp) 30 ml PO Q6H PRN PRN Reason: Heartburn/Nausea Amlodipine Besylate (Amlodipine Besylate 5 Mg Tablet) 5 mg PO DAILY [facility]; Protocol Last Admin: 05/27/22 09:05 Dose: 5 mg Atorvastatin Calcium (Atorvastatin Calcium 10 Mg Tablet) 10 mg PO BEDTIME [facility] Last Admin: 05/26/22 20:41 Dose: 10 mg Divalproex Sodium (Divalproex Sodium 500 Mg Tablet.Dr) 500 mg PO BID [facility] Last Admin: 05/27/22 09:05 Dose: 500 mg Hydroxyzine HCl (Hydroxyzine Hcl 25 Mg Tablet) 25 mg PO Q6H PRN PRN Reason: Anxiety Lamotrigine (Lamotrigine 25 Mg Tablet) 50 mg PO BID [facility] Last Admin: 05/27/22 09:05 Dose: 50 mg Magnesium Hydroxide (Milk Of Magnesia 30 Ml Oral.Susp) 30 ml PO DAILY PRN PRN Reason: Constipation Metformin HCl (Metformin Hcl Er 500 Mg Tab.Er.24h) 500 mg PO DAILY [facility] Last Admin: 05/27/22 09:05 Dose: 500 mg Olanzapine (Olanzapine 5 Mg Tablet) 5 mg PO BEDTIME [facility] Last Admin: 05/26/22 20:41 Dose: 5 mg Omeprazole (Omeprazole 20 Mg Capsule.Dr) 20 mg PO DAILY@0600 [facility] Last Admin: 05/27/22 06:02 Dose: 20 mg Torsemide (Torsemide 20 Mg Tablet) 20 mg PO DAILY PRN; Protocol PRN Reason: swelling Tramadol HCl (Tramadol Hcl 50 Mg Tablet) 25 mg PO Q6H PRN PRN Reason: Pain, Moderate (Pain Scale 4-6 Trazodone HCl (Trazodone Hcl 50 Mg Tablet) 50 mg PO BEDTIME PRN PRN Reason: Insomnia Last Admin: 05/23/22 20:26 Dose: 50 mg Allergies Allergies Allergy/AdvReac Type Severity Reaction Status Date / Time No Known Allergies Allergy Verified 10/22/21 10:21 [No Known Allergies*] Assessment & Plan Assessment & Plan (1) Bipolar disorder: Status: Acute Code(s): F31.9 - Bipolar disorder, unspecified (2) Cognitive disorder: Status: Acute Code(s): F09 - Unspecified mental disorder due to known physiological condition (3) Obesity: Status: Acute Code(s): E66.9 - Obesity, unspecified (4) HTN (hypertension): Status: Acute Code(s): I10 - Essential (primary) hypertension Plan the patient is an elderly female with a long history of bipolar disorder who was very well controlled with lithium but it was discontinued due to chronic renal failure October this year with decompensation. Now she was found disorganized in the street. Plan 1. Gather collateral information. 2. Continue with same medications. 3. We will get a Depakote level in the next days. 4. Lower Tramadol to 25 mg due t0 oversedation. I spent __20____ minutes with the patient and/or on the patient floor today, greater than?50% of which was spent counseling/coordinating care. Reason for contiued inpatient stay Substantial Risk for: inability to function, rapid decompensation and med/psych decompensation
[2022-05-27 19:30] VITALS: BP 134/66; PULSE 79; RESP 16; TEMP 36.3; O2SAT 95
[2022-05-27] MEDS: Atorvastatin Calcium 10 MG TABLET PO (20:36)
[2022-05-27] MEDS: OLANZapine 5 MG TABLET PO (20:36)
[2022-05-28] MEDS: Omeprazole 20 MG CAPSULE.DR PO (06:24)
[2022-05-28] MEDS: Divalproex Sodium 500 MG TABLET.DR PO ×2 (09:13→21:08)
[2022-05-28] MEDS: metFORMIN HCl ER 500 MG TAB.ER.24H PO (09:13)
[2022-05-28] MEDS: lamoTRIgine 25 MG TABLET 50 MG PO ×2 (09:13→21:09)
[2022-05-28] MEDS: amLODIPine Besylate 5 MG TABLET PO (09:13)
[2022-05-28 09:17] VITALS: BP 146/66; PULSE 72; RESP 16; TEMP 36; O2SAT 93
--- NOTE | 2022-05-28 15:21 | P.PNPSI_ITS ---
Subjective Subjective Date of Service: 05/28/22 Reason For Visit: psychosis Subjective Notes: Conditional Voluntary Interim History: The nursing staff reported the patient slept until 01:00. She denies new symptoms. On interview, the patient reports that she is feeling fine and wants to go back home. At this moment even though that, she has some cognitive impairment, she is able to be safe in the community. We will schedule her discharge for tomorrow Mental Status Exam Mental Status Exam Patient Appearance: Well Grooomed Patient Orientation: Person and Situation Level of Consciousness: Awake Patient Behavior: Guarded and Passive Mood Description: Calm Affect Description: Labile Patient Cognition Impaired: Yes Ability to Follow Directions: Good Speech Pattern: Clear Hallucinations: None Delusions: Not Present Thought Process: Linear Thought Content: positive for [place] Judgement: Fair Diagnostics Vital Signs (24Hr): Vital Signs - 24 hr 05/27/22 19:30 05/28/22 09:17 Temperature 97.4 F 96.8 F Pulse Rate 79 72 Respiratory Rate 16 16 Blood Pressure 134/66 146/66 H Pulse Oximetry 95 93 Oxygen Delivery Method Room Air Room Air BMI result Body Mass Index 31.1 Labs Results: 05/20/22 08:18 05/27/22 11:20 Labs: Laboratory Results - last 48 hr 05/27/22 11:20 Creatinine 1.75 H Estim Creat Clear Calc 26.7 Estimated GFR 28 Medications Medications Current Medications Acetaminophen (Acetaminophen 325 Mg Tablet) 650 mg PO Q6H PRN PRN Reason: Pain, Severe (Pain Scale 7-10) Last Admin: 05/26/22 08:16 Dose: 650 mg Al Hydroxide/Mg Hydroxide (Magnesium Hydrox/Alum Hydrox 30 Ml Oral.Susp) 30 ml PO Q6H PRN PRN Reason: Heartburn/Nausea Amlodipine Besylate (Amlodipine Besylate 5 Mg Tablet) 5 mg PO DAILY [facility]; Protocol Last Admin: 05/28/22 09:13 Dose: 5 mg Atorvastatin Calcium (Atorvastatin Calcium 10 Mg Tablet) 10 mg PO BEDTIME [facility] Last Admin: 05/27/22 20:36 Dose: 10 mg Divalproex Sodium (Divalproex Sodium 500 Mg Tablet.Dr) 500 mg PO BID [facility] Last Admin: 05/28/22 09:13 Dose: 500 mg Hydroxyzine HCl (Hydroxyzine Hcl 25 Mg Tablet) 25 mg PO Q6H PRN PRN Reason: Anxiety Lamotrigine (Lamotrigine 25 Mg Tablet) 50 mg PO BID [facility] Last Admin: 05/28/22 09:13 Dose: 50 mg Magnesium Hydroxide (Milk Of Magnesia 30 Ml Oral.Susp) 30 ml PO DAILY PRN PRN Reason: Constipation Metformin HCl (Metformin Hcl Er 500 Mg Tab.Er.24h) 500 mg PO DAILY [facility] Last Admin: 05/28/22 09:13 Dose: 500 mg Olanzapine (Olanzapine 5 Mg Tablet) 5 mg PO BEDTIME [facility] Last Admin: 05/27/22 20:36 Dose: 5 mg Omeprazole (Omeprazole 20 Mg Capsule.Dr) 20 mg PO DAILY@0600 [facility] Last Admin: 05/28/22 06:24 Dose: 20 mg Torsemide (Torsemide 20 Mg Tablet) 20 mg PO DAILY [facility]; Protocol PRN Reason: swelling Tramadol HCl (Tramadol Hcl 50 Mg Tablet) 25 mg PO Q6H PRN PRN Reason: Pain, Moderate (Pain Scale 4-6 Trazodone HCl (Trazodone Hcl 50 Mg Tablet) 50 mg PO BEDTIME PRN PRN Reason: Insomnia Last Admin: 05/23/22 20:26 Dose: 50 mg Allergies Allergies Allergy/AdvReac Type Severity Reaction Status Date / Time No Known Allergies Allergy Verified 10/22/21 10:21 [No Known Allergies*] Assessment & Plan Assessment & Plan (1) Bipolar disorder: Status: Acute Code(s): F31.9 - Bipolar disorder, unspecified (2) Cognitive disorder: Status: Acute Code(s): F09 - Unspecified mental disorder due to known physiological condition (3) Obesity: Status: Acute Code(s): E66.9 - Obesity, unspecified (4) HTN (hypertension): Status: Acute Code(s): I10 - Essential (primary) hypertension Plan the patient is an elderly female with a long history of bipolar disorder who was very well controlled with lithium but it was discontinued due to chronic renal failure October this year with decompensation. Now she was found disorganized in the street. Plan 1. Gather collateral information. 2. Continue with same medications. 3. We will get a Depakote level in the next days. 4. Lower Tramadol to 25 mg due t0 oversedation. 5. Discharge tomorrow I spent ____20__ minutes with the patient and/or on the patient floor today, greater than?50% of which was spent counseling/coordinating care. Reason for contiued inpatient stay Substantial Risk for: inability to function, rapid decompensation and med/psych decompensation
[2022-05-28 16:31] VITALS: BP 133/71; PULSE 79; RESP 18; TEMP 36.1; O2SAT 95
[2022-05-28] MEDS: Atorvastatin Calcium 10 MG TABLET PO (21:08)
[2022-05-28] MEDS: OLANZapine 5 MG TABLET PO (21:09)
[2022-05-29] MEDS: Omeprazole 20 MG CAPSULE.DR PO (06:07)
[2022-05-29 08:00] VITALS: BP 142/72; PULSE 72; RESP 18; TEMP 36.2; O2SAT 92
[2022-05-29] MEDS: metFORMIN HCl ER 500 MG TAB.ER.24H PO (09:16)
[2022-05-29] MEDS: amLODIPine Besylate 5 MG TABLET PO (09:16)
[2022-05-29] MEDS: lamoTRIgine 25 MG TABLET 50 MG PO (09:17)
[2022-05-29] MEDS: Divalproex Sodium 500 MG TABLET.DR PO (09:17)
--- NOTE | 2022-05-29 10:35 | PM.PSYDC ---
DS: Providers Provider Date of Service: 05/29/22 Date of admission: 05/19/22 11:52 Date of discharge: 05/29/22 Primary care physician: Unknown Physician DS: Diagnosis Discharge Diagnosis (1) Bipolar disorder: Status: Acute (2) Cognitive disorder: Status: Acute (3) Obesity: Status: Acute (4) HTN (hypertension): Status: Acute DS: Medications Discharge Medications Home Medications: Home Medications Medication Instructions Recorded Confirmed simvastatin 20 mg tablet 1 tab PO BEDTIME 05/16/22 05/16/22 Previous Rx's Medication Instructions Recorded amlodipine 5 mg tablet 1 tab PO DAILY 30 days #30 tabs 04/30/22 blood sugar diagnostic #10 ea 04/30/22 divalproex 500 mg tablet,delayed 1 tab PO BID 30 days #60 tabs 04/30/22 release hydrocortisone 1 % topical cream 1 appl topical BID PRN itchiness 04/30/22 30 days #1 g lamotrigine 25 mg tablet 2 tab PO BID 30 days #120 tabs 04/30/22 metformin 500 mg tablet,extended 1 tab PO DAILY 30 days #30 tabs 04/30/22 release 24 hr olanzapine 5 mg tablet 5 mg PO BEDTIME 30 days #30 tabs 04/30/22 omeprazole 20 mg capsule,delayed 1 cap PO DAILY@0600 30 days #30 04/30/22 release caps torsemide 20 mg tablet 1 tab PO DAILY PRN swelling 30 04/30/22 days #30 tabs trazodone 50 mg tablet 50 mg PO BEDTIME PRN Insomnia 30 04/30/22 days #30 tabs Mental Status Exam Mental Status Exam Patient Appearance: Well Grooomed Patient Orientation: Person and Situation Level of Consciousness: Awake Patient Behavior: Cooperative Mood Description: Withdrawn Affect Description: Constricted Patient Cognition Impaired: Yes Ability to Follow Directions: Good Speech Pattern: Clear Hallucinations: None Delusions: Paranoid Ideation Thought Process: Linear Thought Content: positive for [place] and positive for Circumstantial Judgement: Fair Data Data Completed and Pending Completed studies during hospitalization [Text1]: 05/27/22 11:20 Creatinine 1.75 H Estim Creat Clear Calc 26.7 Estimated GFR 28 DS: Summary Hospital Course Hospital Course: The patient was admitted for disorganized behavior. On admission she had a Depakote level that was therapeutic. She was restarted her on her regular medications and the patient's mood was L thymic with episodes of mild dysphoria but able to participating few groups but most of the time, she spent in her room reading her book. We discussed with the patient and patient's family about disposition. Her family wanted her to have a guardian and be placed but the patient's Gaudencio cognitive test was high and her Gaston was slightly low, the patient was able to participate in groups and she was able to do her own activities of daily life. Since there were no safety concerns discharge planning was discussed Time spent discussing smoking cessation with patient: 3 to 10 minutes Status at Discharge Cognitive/behavioral status at discharge: At baseline Functional status at discharge: independent ambulation Overall status at discharge: patient is back to baseline Time Spent with Patient Time attestation: Total time spent providing and/or coordinating discharge services: Time spent: Less than 30 minutes Discharge Plan Discharge Anticipated Discharge Date/Time: 05/29/22 10:45 Patient Disposition: Home, Self-Care Discharge Diagnosis: Bipolar disorder Referrals: Caridad Tate ASSISTANT ART DIRECTOR [Other] - 05/30/22 11:00 am (Your first appointment with caridad Tate ASSISTANT ART DIRECTOR is 05/30/22 at 11am. She will come to your home for the appointment. Please be home at 11am on to receive home visit for appointment. ) Dianna Willard A [Other] - 05/29/22 2:00 pm (Your VNA will restart at time of discharge. Your visiting nurse will contact you and provide home visit same day of discharge on 05/29/22 after 1pm. Your medical social consultant from [facility] will call you at 3:45pm on 05/29/22. ) [facility] [Other] - 05/29/22 (Your new patient case coordinator Geno Tyler [phone] at ext [phone]. Increase in personal care and homemaking hours has been requested. Geno will contact you on 05/29/22 in afternoon. ) Atif Rodgers ONLINE RETAILER [Other] - 06/05/22 12:00 pm (Your next appointment with your therapist Carlo is scheduled for 06/05/22 at 12pm. He will call you on Friday06/04/22 to confirm. Please be available for your appointment on 06/05/22 and to receive confirmation call on Friday. ) [facility] [Other] - 06/07/22 11:00 am (Your next PCP appointment with Katina Zuniga is scheduled for 06/07/22 at 11:00am. ) [facility] Sandro GARCIA PCP [Other] - 09/30/22 10:00 am (New patient appointment scheduled for 09/30/21 at 10am. ) Discharge Medications: Continued torsemide 20 mg tablet 1 tab PO DAILY PRN (Reason: swelling) 30 Days Qty: 30 0RF trazodone 50 mg Tablet 50 mg PO BEDTIME PRN (Reason: Insomnia) 30 Days Qty: 30 0RF olanzapine 5 mg Tablet 5 mg PO BEDTIME 30 Days Qty: 30 0RF amlodipine 5 mg tablet 1 tab PO DAILY 30 Days Qty: 30 0RF divalproex 500 mg tablet,delayed release (DR/EC) 1 tab PO BID 30 Days Qty: 60 0RF lamotrigine 25 mg tablet 2 tab PO BID 30 Days Qty: 120 0RF hydrocortisone 1 % Cream 1 appl topical BID PRN (Reason: itchiness) 30 Days Qty: 1 0RF simvastatin 20 mg tablet 1 tab PO BEDTIME Qty: 30 0RF omeprazole 20 mg capsule,delayed release(DR/EC) 1 cap PO DAILY@0600 30 Days Qty: 30 0RF metformin 500 mg tablet extended release 24 hr 1 tab PO DAILY 30 Days Qty: 30 0RF (DME) blood sugar diagnostic Strip See Rx Instructions Not Applicable TID Qty: 10 0RF Rx Instructions: As directed Discharge Orders: Discharge Order (Routine); Ordered 05/29/22 Ordered By: Jeffery Arreola Diet: Advance to usual diet Activity on Discharge: As tolerated Stand Alone Forms: Patient Portal Discharge page Care Plan Goals: Care plan goals achieved Health Concerns: Continue treatment with primary care physician Plan of Treatment: Continue care as an outpatient Assessment: Elderly female with several medical comorbidities and bipolar disorder admitted for disorganized behavior, this moment is stable and safe to be discharged in the community.
== END 2022-05-29 11:15 | disposition home or self-care (01) | DRG 885 ==
LOC: HO.ED 17:32 → HO.PGERI 05-19 12:08
PROVIDERS: Nurse Practitioner Family; Admitting Provider Psychiatry & Neurology Psychiatry; Emergency Provider Emergency Medicine; Visit Provider Psychiatry & Neurology Psychiatry
DX: F31.9 Bipolar disorder, unspecified (principal); K21.9 Gastro-esophageal reflux disease without esophagitis; E66.9 Obesity, unspecified; I10 Essential (primary) hypertension; Z20.822 Contact with and (suspected) exposure to COVID-19; Z68.31 Body mass index [BMI] 31.0-31.9, adult; Z87.891 Personal history of nicotine dependence; Z79.84 Long term (current) use of oral hypoglycemic drugs; Z79.899 Other long term (current) drug therapy
CPT/HCPCS: 36415; 80048; 80053; 80061; 80076; 80143; 80164; 80179; 80307; 81001; 82077; 82565; 85025; 87635; 93005; 99285; J1200

== ENCOUNTER 2022-12-17 08:35 | Outpatient (REF) | payer MEDICARE, SELFPAY ==
[2022-12-17 11:28] LABS: MANUAL DIFF FLAG NO
[2022-12-17 12:08] LABS: Basophils Percent Auto 0.3 % (0-2); Eosinophils Absolute Auto 0.1 X10*3/uL (0.0-0.4); Eosinophils Percent Auto 0.7 % (0-4); Hematocrit 40.5 % (37.0-47.0); Hemoglobin 13.2 g/dl (12.0-16.0); Imm Gran Abs Auto 0.02 X10*3/uL (0.00-0.03); Imm Gran Pct Auto 0.3 % (0.0-0.4); Lymphocytes Absolute Auto 1.7 X10*3/uL (1.2-4.9); Lymphocytes Percent Auto 22.5 % (20-40); Mean Corpuscular HGB Conc 32.6 g/dl (31.0-35.0); Mean Corpuscular Hemoglobin 31.6 pg (27.0-33.0); Mean Corpuscular Volume 96.9 fL (80.0-98.0); Mean Platelet Volume 11.5 fL (9.4-12.3); Monocytes Absolute Auto 0.4 X10*3/uL (0.1-1.2); Monocytes Percent Auto 5.3 % (2-11); Neutrophils Absolute Auto 5.5 x10*3/uL (2.0-8.3); Neutrophils Percent Auto 70.9 % (45-73); Platelet Count 184 X10*3/uL (160-400); Red Blood Count 4.18 X10*6/uL (4.20-5.50); Red Cell Distribution Width 13.7 % (11.0-16.0); White Blood Count 7.7 X10*3/uL (4.8-10.8)
[2022-12-17 12:48] LABS: Alanine Aminotransferase 16 U/L (0-31); Alkaline Phosphatase 55 U/L (39-117); Anion Gap 13 (12-20); Aspartate Amino Transferase 12 U/L (5-31); Bilirubin Total 0.7 mg/dL (0.0-1.0); Blood Urea Nitrogen 32 mg/dL (9-16); Calcium 9.8 mg/dL (8.4-10.2); Carbon Dioxide 26 mmol/L (22-29); Chloride 109 mmol/L (96-108); Cholesterol 163 mg/dL; Estimated Glomerular Filt Rate 46; Glucose Fasting 98 mg/dL (60-99); HDL Cholesterol 60 mg/dL; Iron 98 mcg/dL (30-160); LDL Cholesterol Calculated 74 mg/dl; Percent Iron Saturation 35 % (15-50); Potassium 4.2 mmol/L (3.3-5.1); Sodium 144 mmol/L (135-145); Total Iron Binding Capacity 282 mcg/dL (228-428); Total Protein 6.6 g/dL (6.5-8.0); Triglycerides 147 mg/dL; Unsaturated Iron Binding 184 ug/dL
[2022-12-17 13:11] LABS: TSH reflex Free T4 1.02 uIU/mL (0.32-4.0); Vitamin D 25-OH Total 49.7 ng/mL (>30)
== END 2022-12-17 08:36 | disposition home or self-care (01) ==
LOC: HO.HMGCLDS 08:35
PROVIDERS: PCP Internal Medicine; Visit Provider Internal Medicine
DX: F31.9 Bipolar disorder, unspecified (principal); E78.5 Hyperlipidemia, unspecified; I10 Essential (primary) hypertension; E66.9 Obesity, unspecified
CPT/HCPCS: 36415; 80053; 80061; 82306; 83540; 84443; 85025

== ENCOUNTER 2023-01-10 13:58 | Outpatient (REF) | payer MEDICARE, SELFPAY ==
[2023-01-10 17:16] LABS: MANUAL DIFF FLAG NO
[2023-01-10 17:34] LABS: Valproate 47.4 mcg/mL (50.0-100.0)
[2023-01-10 17:38] LABS: Anion Gap 17 (12-20); Blood Urea Nitrogen 23 mg/dL (9-16); Calcium 9.6 mg/dL (8.4-10.2); Carbon Dioxide 26 mmol/L (22-29); Chloride 106 mmol/L (96-108); Estimated Glomerular Filt Rate 44; Glucose Random 130 mg/dL (60-115); Potassium 4.7 mmol/L (3.3-5.1); Sodium 144 mmol/L (135-145)
[2023-01-10 17:43] LABS: Basophils Percent Auto 0.2 % (0-2); Eosinophils Absolute Auto 0.1 X10*3/uL (0.0-0.4); Eosinophils Percent Auto 0.7 % (0-4); Hematocrit 43.6 % (37.0-47.0); Hemoglobin 14.3 g/dl (12.0-16.0); Imm Gran Abs Auto 0.02 X10*3/uL (0.00-0.03); Imm Gran Pct Auto 0.2 % (0.0-0.4); Lymphocytes Absolute Auto 1.2 X10*3/uL (1.2-4.9); Lymphocytes Percent Auto 13.1 % (20-40); Mean Corpuscular HGB Conc 32.8 g/dl (31.0-35.0); Mean Corpuscular Hemoglobin 32.1 pg (27.0-33.0); Mean Corpuscular Volume 97.8 fL (80.0-98.0); Mean Platelet Volume 11.5 fL (9.4-12.3); Monocytes Absolute Auto 0.5 X10*3/uL (0.1-1.2); Monocytes Percent Auto 5.1 % (2-11); Neutrophils Absolute Auto 7.4 x10*3/uL (2.0-8.3); Neutrophils Percent Auto 80.7 % (45-73); Platelet Count 224 X10*3/uL (160-400); Red Blood Count 4.46 X10*6/uL (4.20-5.50); Red Cell Distribution Width 12.8 % (11.0-16.0); White Blood Count 9.2 X10*3/uL (4.8-10.8)
== END 2023-01-10 13:59 | disposition home or self-care (01) ==
LOC: HO.HMGCLR 13:58
PROVIDERS: PCP Internal Medicine; Visit Provider Nurse Practitioner Psychiatric/Mental Health
DX: F31.2 Bipolar disorder, current episode manic severe with psychotic features (principal); F10.10 Alcohol abuse, uncomplicated; Z79.899 Other long term (current) drug therapy
CPT/HCPCS: 36415; 80048; 80164; 85025

== ENCOUNTER 2023-03-19 14:00 | Outpatient (RCR) | payer OTHER, MEDICARE, SELFPAY ==
--- NOTE | 2022-11-29 13:48 | MHC.PT.EP ---
[facility] [place] Office [place] Office [place] [facility] [address] Timothy Roy [address] [phone] F: [phone] F: [phone] F: [phone] F: [phone] Physical Therapy Plan of Care Date of Evaluation: Date of Surgery: none Diagnosis: Unspecified abnormalities of gait and mobility Assessment: Patient is a 77 year old R handed female who presents with s/s consistent with unspecified abnormalities of gait and mobility. She does not work and is fairly sedentary. She has a home nurse 1 day per week, MOW and a product director 2x per week. Patient past medical history includes breast cancer, bipolar disorder and depression. Current impairments include pain, posture, ROM, strength, activity tolerance and functional mobility. Functional limitations include decreased ability to walk, stand, negotiate stairs, get out of bed and chairs. Patient is motivated with good rehab potential. Skilled PT will address impairments and functional limitations in order to achieve goals. Frequency and Duration: The patient will be seen 2x/week for 5 weeks Short Term Goals: I with HEP - 2 weeks Able to bike 8 minutes without having to stop - 3 weeks Sit <> stand 6x in 1 minutes - 3 weeks Architecture Drafter Goals: LE strength 4-/5 grossly - 5 weeks Able to walk 10 minutes without rest - 5 weeks SLB > 10 seconds b/l - 5 weeks LEFS 34/80 - 5 weeks Treatment Plan: Modalities to reduce pain, spasms and effusion. Manual therapy to restore motion and function. Therapeutic exercise to improve strength and flexibility. Neuromuscular re-education for posture and balance. Therapeutic activities to return to functional activities of daily living. Electronically signed by: Atif Schaffer, PT Please sign and return to therapist. Thank you for your referral.
--- NOTE | 2023-03-19 15:19 | MHC.PT.DC ---
[facility] [place] [facility] [place] Office [place] Office [address] Timothy Roy [address] [facility] [phone] F: [phone] F: [phone] F: [phone] F: [phone] Physical Therapy Discharge Report Diagnosis: Unspecified abnormalities of gait and mobility Date of Surgery: none Date of Evaluation: 11/29/22 Date of Discharge: 03/19/23 Treatments to Date: 15 Cancellations to Date: No Shows to Date: Discharge Status: Achieved Goals Improved Function Independent with HEP Discharge Summary: Shakila has been an motivated and active participant in her therapy. She is I with her home program, she has met most of her therapeutic goals. We are in agreement with DC at this time for her LE strength and balance; she reports her arms have been feeling weak performing HH chores and transfers and may seek PT for UE strengthening. Electronically signed by: Wes Delgado PT. Please sign and return to therapist. Thank you for your referral.
== END 2023-03-19 15:18 | disposition home or self-care (01) ==
LOC: HO.PTCHIC 14:00
PROVIDERS: PCP Internal Medicine; Visit Provider Internal Medicine
DX: R26.9 Unspecified abnormalities of gait and mobility (principal)
CPT/HCPCS: 97110; 97112; 97163

== ENCOUNTER 2023-06-09 08:45 | Outpatient (REF) | payer MEDICARE, SELFPAY ==
[2023-06-09 09:16] LABS: MANUAL DIFF FLAG NO
--- NOTE | 2023-06-09 09:27 | ECG_ITS ---
Test Reason : pre op Blood Pressure : / mmHG Vent. Rate : 099 BPM Atrial Rate : 099 BPM P-R Int : 146 ms QRS Dur : 088 ms QT Int : 352 ms P-R-T Axes : 053 047 047 degrees QTc Int : 451 ms Sinus rhythm with occasional Premature ventricular complexes Otherwise normal ECG When compared with ECG of 20-MAY-2022 09:32, Premature ventricular complexes are now Present Heart rate has increased Referred By: Jesusita Jo Electronically Signed By:PETER LOZADA MD
[2023-06-09 10:22] LABS: Basophils Percent Auto 0.3 % (0-2); Eosinophils Absolute Auto 0.1 X10*3/uL (0.0-0.4); Eosinophils Percent Auto 1.2 % (0-4); Imm Gran Abs Auto 0.03 X10*3/uL (0.00-0.03); Imm Gran Pct Auto 0.3 % (0.0-0.4); Lymphocytes Absolute Auto 1.8 X10*3/uL (1.2-4.9); Lymphocytes Percent Auto 19.3 % (20-40); Mean Corpuscular HGB Conc 32.5 g/dl (31.0-35.0); Mean Corpuscular Hemoglobin 31.2 pg (27.0-33.0); Mean Corpuscular Volume 95.9 fL (80.0-98.0); Mean Platelet Volume 10.6 fL (9.4-12.3); Monocytes Absolute Auto 0.5 X10*3/uL (0.1-1.2); Monocytes Percent Auto 5.7 % (2-11); Neutrophils Absolute Auto 6.8 x10*3/uL (2.0-8.3); Neutrophils Percent Auto 73.2 % (45-73); Platelet Count 241 X10*3/uL (160-400); Red Blood Count 4.17 X10*6/uL (4.20-5.50); Red Cell Distribution Width 12.4 % (11.0-16.0); White Blood Count 9.3 X10*3/uL (4.8-10.8)
[2023-06-09 11:30] LABS: Alanine Aminotransferase 11 U/L (0-31); Anion Gap 16 (12-20); Aspartate Amino Transferase 12 U/L (5-31); Blood Urea Nitrogen 26 mg/dL (9-16); Calcium 9.7 mg/dL (8.4-10.2); Carbon Dioxide 21 mmol/L (22-29); Chloride 109 mmol/L (96-108); Cholesterol 146 mg/dL (<200); Estimated Glomerular Filt Rate 41; Glucose Fasting 110 mg/dL (60-99); HDL Cholesterol 52 mg/dL (>40); LDL Cholesterol Calculated 66 mg/dL (<100); Sodium 142 mmol/L (135-145); Triglycerides 143 mg/dL (<150)
== END 2023-06-09 08:46 | disposition home or self-care (01) ==
LOC: HO.LAB 08:45
PROVIDERS: PCP Internal Medicine; Visit Provider Internal Medicine
DX: Z01.818 Encounter for other preprocedural examination (principal); I10 Essential (primary) hypertension; R25.1 Tremor, unspecified; R26.9 Unspecified abnormalities of gait and mobility; E78.5 Hyperlipidemia, unspecified
CPT/HCPCS: 36415; 80048; 80061; 84450; 84460; 85025; 93005

== ENCOUNTER 2023-06-20 13:30 | Outpatient (AMB) | payer MEDICARE, SELFPAY ==
--- NOTE | 2023-06-20 14:09 | A.OFFPC_ITS ---
Vital Signs 06/20/23 14:10 Height 5 ft 4 in Weight 159 lb 4 oz BMI 27.3 BP 124/80 Blood Pressure Location Rt brachial Position Sitting Pulse 91 Pulse Source Pulse Oximeter Pulse Oximetry (%) 97 Oxygen Delivery Method Room Air Intake Visit Reasons: Rt eye [id number]/Lt eye 07/08 Dr. Tomlinson Intake Note: pt is here for pre-op cataract surgery 06/24/23 right eye and left eye 07/08/[address] Tomlinson Allergies No Known Allergies [No Known Allergies*] Allergy (Verified 06/20/23 14:19) Medication List - Last Reconciled 06/20/23 by Jesusita Jo MD acetaminophen ER 650 mg PO Q6H PRN amlodipine 5 mg PO DAILY aspirin 81 mg PO DAILY divalproex 1 tab PO BID 30 days folic acid 1 mg PO DAILY ketotifen fumarate 0.025%(0.035%) (Allergy Eye (ketotifen)) 1 drp ophthalmic (eye) Q12H PRN nortriptyline 25 mg PO BEDTIME pantoprazole 20 mg PO BEDTIME risperidone microspheres ER (Risperdal Consta) mg IM simvastatin 20 mg PO BEDTIME torsemide 1 tab PO DAILY PRN 30 days Tobacco use date assessed: 06/20/23 Fall risk assessment: 2 + Falls in past year Last assessed Fall Risk: 06/20/23 Dental Screening Dental Screen Date: 06/20/23 Did you have a dental visit in the last 12 months?: Yes Did you have a dental problem in the last 6 months where you did not have access to dental care?: No Was dental information given to patient?: Patient has dentist HPI Rt eye [id number]/31/Lt eye 07/08 Dr. Tomlinson HPI Details 78-year-old lady with history of bipolar disorder, hypertension, hyperlipidemia, obesity and chronic GERD with history of breast cancer, here today for a pre-operative exam for cataract surgery scheduled on 06/24/23 right eye , and left eye 07/08/[address] Tomlinson . She has been feeling well with no complaints at present time. Had recent fasting labs done which showed results within normal limits except for slightly elevated fasting glucose at 102 mg/dL. [facility] Medical History Generalized muscle weakness Cognitive disorder TIA (transient ischemic attack) Tremors of nervous system Gait disorder DVT (deep venous thrombosis) Obesity Hyperlipidemia HTN (hypertension) GERD (gastroesophageal reflux disease) Breast cancer Bipolar 1 disorder Surgical History H/O mastectomy Family History Brother Alcohol abuse Polio Substance use disorder Brother Cancer Sister Stroke Mental health disorder Mother HTN (hypertension) Sister Cancer Social History Household Members: None Housing: House Do you presently have visiting nurse or other home services: Yes Unable to assess alcohol history related to: Refusing to respond Alcohol intake: current Alcohol type: wine Patient Tobacco Use Status: Former Tobacco user Quit Date: 11 years ago Tobacco use type: Smokeless Tobacco Years Smoked: 30 e-Cigarette/Vaping Use: Never Used Second Hand Smoke Exposure: No Advance Directives Date on File: 05/01/22 service: No Sexual orientation: Straight/Heterosexual Cognitive needs: No Hearing needs: No Vision needs: Yes Questionnaire Thrive Questionnaire Date Thrive assessed: 09/30/22 WENDY-7 AMB Questionnaire WENDY-7 Date WENDY - 7 assessed: 09/30/22 Source: Developed by Drs. Alex Newsome, Estefania Rivera, Juancarlos Baig and colleagues, with an educational kulwinder from [employer]. Review of Systems Const Denies excessive sweating, Denies fatigue, Denies frequent falls, Denies headache(s) and Reports snoring Eyes Reports no additional complaints ENT Reports no additional complaints and Denies headache(s) Card Denies chest pain, Denies chest pain with activity, Reports pedal edema (Intermittent), Denies irregular heart rhythm and Denies dyspnea Resp Denies chest congestion, Denies cough, Denies dyspnea and Reports snoring GI Reports heartburn (Controlled on medication) Reports no additional complaints Musc Reports abnormal gait, Reports limited range of motion and Reports muscle cramps Skin/Breast Denies breast pain, Denies breast mass, Denies lesions and Denies rash Neuro Reports abnormal gait, Denies frequent falls, Denies headache(s) and Reports tremor(s) Psych Reports anxiety, Reports depression, Reports mood swings, Denies hallucinations, Denies homicidal ideation and Denies suicidal ideation Endo Denies excessive sweating, Denies fatigue, Denies polyphagia, Denies polydipsia and Denies polyuria Gordon/Lymph Denies easy bleeding and Denies easy bruising Aller/Immun Reports no additional complaints Physical exam (Primary Care) Vital Signs: Last Vital Signs Pulse 91 06/20/23 14:10 BP 124/80 06/20/23 14:10 Pulse Ox 97 06/20/23 14:10 Oxygen Delivery Method Room Air 06/20/23 14:10 BMI result Body Mass Index 27.3 Tobacco/Smoking Status: Tobacco use Status Tobacco use date assessed 06/20/23 06/20/23 14:17 Patient Tobacco Use Status Former Tobacco user 06/20/23 14:17 Tobacco use type Smokeless Tobacco 06/20/23 14:17 e-Cigarette/Vaping Use Never Used 06/20/23 14:17 Are you ready to quit: No Thrive Assessment: Date of Thrive Assessment Date Thrive assessed 09/30/22 06/20/23 14:17 Const General: cooperative, comfortable, no acute distress, alert, awake and Physically active Nutritional Appearance: overweight Orientation/consciousness: patient oriented x3 HENMT Head: Yes normocephalic and Yes atraumatic Ears: external ears normal, TM's normal bilaterally and EAC's normal General nose exam: Normal external nose present Face and sinus: Yes face symmetric Mouth: Normal oral and palatal mucosa present, oropharynx normal and moist mucous membranes Eyes General: appearance normal, both eyes and all related structures Pupils: Equal, round and reactive pupils present EOM: EOMs intact bilaterally Neck Neck: Yes full ROM, Yes no lymphadenopathy and Yes supple Thyroid: Thyroid normal Resp Effort & Inspection: normal respiratory effort and able to speak in complete sentences Auscultation: clear to auscultation bilaterally Cardio Rate: regular rate Rhythm: regular rhythm Heart sounds: S1 normal heart sound present and S2 normal heart sound present GI Palpation (GI): Soft to palpation, nontender and no guarding Auscultation: normal bowel sounds Back/Spine/Pelvis Back: No back tenderness Skin Other: Mild ecchymosis noted on left hand Neuro General: patient oriented x3, moves all extremities, no focal motor deficits, CN's II-XI intact bilaterally and other (Faint tremors noted in both hands) Cranial nerves: Yes Equal, round and reactive pupils present Gait exam (Neuro): Other gait observations present (Slow, unsteady gait noted, takes small steps) Extrem General: Yes full ROM, Yes no joint enlargement, Yes no clubbing, cyanosis or edema and Yes no calf tenderness Psych Appearance: grossly normal and well kempt Mental Status: mental status grossly normal Speech and movement: Normal speech and movement present Affect: normal affect Attitude: cooperative Thought process: Normal thought process present Results Reviewed Results Reviewed: Name: Jing Bautista Age/Sex: 78/F : 1945 Unit#: [id number] Attend Dr: Jesusita Jo MD Re06/09/23 Status: DEP [facility] Dis[facility]: SPEC : [id number] PRIYANKA: 06/09/23 STATUS: COMP REQ : [id number] RECD: 06/09/[address]: Jesusita Jo MD COMP: 06/09/23 ENTERED: 06/09/[address] [facility] [address]: ORDERED: CBC Auto Diff Test Result Flag Reference Site WBC 9.3 4.8-10.8 X10*3/uL RBC 4.17 L 4.20-5.50 X10*6/uL HGB 13.0 12.0-16.0 g/dl HCT 40.0 37.0-47.0 % MCV 95.9 80.0-98.0 fL MCH 31.2 27.0-33.0 pg MCHC 32.5 31.0-35.0 g/dl RDW 12.4 11.0-16.0 % PLT 241 160-400 X10*3/uL MPV 10.6 9.4-12.3 fL Neut Pct Auto 73.2 H 45-73 % ImGran Pct Auto 0.3 0.0-0.4 % Lymp Pct Auto 19.3 L 20-40 % Valencia Pct Auto 5.7 2-11 % Eos Pct Auto 1.2 0-4 % Baso Pct Auto 0.3 0-2 % NRBC Pct Auto 0.0 0.0-0.2 /100WBC ANC Neut Abs # 6.8 2.0-8.3 x10*3/uL ImGran Abs Auto 0.03 0.00-0.03 X10*3/uL Lymph Abs Auto 1.8 1.2-4.9 X10*3/uL Valencia Abs Auto 0.5 0.1-1.2 X10*3/uL Eos Abs Auto 0.1 0.0-0.4 X10*3/uL Baso Abs Auto 0.0 0.0-0.2 X10*3/uL NRBC Abs Auto 0.000 0.0-0.012 X10*3/uL Name: Jing Bautista Age/Sex: 78/F : 1945 Unit#: [id number] Attend Dr: Jesusita Jo MD Re06/09/23 Status: DEP [facility]F [facility] Disch: SPEC : [id number] PRIYANKA: 06/09/23 STATUS: COMP REQ : [id number] RECD: 06/09/[address]: Jesusita Jo MD COMP: 06/09/230 ENTERED: 06/09/[address] [facility] [address]: ORDERED: Met Prof Fast, AST, ALT, Lipid Panel Test Result Flag Reference Site Sodium 142 135-145 mmol/L Potassium 4.0 3.3-5.1 mmol/L CL 109 H 96-108 mmol/L CO2 21 L 22-29 mmol/L Gap 16 12-20 BUN 26 H 9-16 mg/dL Creat 1.26 0.5-1.4 mg/dL EGFR 41 NOTE: For -Palestinian individuals, multiply the result by 1.210. Chronic Kidney Disease: Estimated GFR < 60 mL/min /1.73m2 Severe Kidney Disease: Estimated GFR < 15 mL/min/1.73m2 FBS 110 H 60-99 mg/dL A fasting glucose from 100-125 mg/dl is considered impaired (pre-diabetes). CA 9.7 8.4-10.2 mg/dL AST (GOT) 12 5-31 U/L ALT (GPT) 11 0-31 U/L Triglyceride 143 <150 mg/dL Desirable Triglyceride: less than 150 mg/dL Borderline High Triglyceride 150-199 mg/dL High Triglyceride: 200-499 mg/dL Very High Triglyceride: greater than or equal to 5OO mg/dL Cholesterol 146 <200 mg/dL Desirable Cholesterol: less than 200 mg/dL Borderline High Cholesterol: 200-239 mg/dL High Cholesterol: greater than 239 mg/dL LDL Calculated 66 <100 mg/dL Desirable LDL: less than 100 mg/dL Near Optimal/Above Optimal LDL: 110-129 mg/dL Borderline High LDL: 130-159 mg/dL High LDL: 160-189 mg/dL Very High LDL: greater than or equal to 190 mg/dL HDL 52 >40 mg/dL Desirable HDL: greater than 40 mg/dL Test Reason : pre op Blood Pressure : / mmHG Vent. Rate : 099 BPM Atrial Rate : 099 BPM P-R Int : 146 ms QRS Dur : 088 ms QT Int : 352 ms P-R-T Axes : 053 047 047 degrees QTc Int : 451 ms Sinus rhythm with occasional Premature ventricular complexes Otherwise normal ECG Assessment and Plan Assessment & Plan (1) Preoperative examination: Code(s): Z01.818 - Encounter for other preprocedural examination Plan: 78-year-old lady with bipolar disorder, hyperlipidemia, hypertension, chronic GERD, essential tremors, here today for preoperative exam for cataract surgery, scheduled for 06/24/2023 for the left eye and 07/08/2023 for right eye, requested by Dr. Tomlinson. Blood pressure and lipids are stable well controlled on present treatment, as well as bipolar disorder. Essential tremors are controlled with nortriptyline. Recent fasting labs done and EKG are all within normal limits. Patient with a low cardiac risk index for proposed surgery (2) HTN (hypertension): Code(s): I10 - Essential (primary) hypertension Qualifiers: Hypertension type: primary hypertension Qualified Code(s): I10 - Essential (primary) hypertension Plan: Blood pressure at goal of less than 130/80. Continue with amlodipine and torsemide. Reinforced importance of following a low sodium diet, getting regular exercise, and lowering stress levels. (3) Hyperlipidemia: Code(s): E78.5 - Hyperlipidemia, unspecified Plan: Reviewed recent fasting lipid profile with patient with levels within normal limits . Continue with simvastatin 20 mg at bedtime , in addition to adherence to low-cholesterol diet and regular exercise, at least 30 minutes 3 to 4 times a week. Advised patient to make healthy food choices, eat more fruits, vegetables, whole grains, wild caught fish and low-fat dairy. Limit amount of meat and fried or fatty food products, as well as processed foods and fast foods. (4) GERD (gastroesophageal reflux disease): Code(s): K21.9 - Gastro-esophageal reflux disease without esophagitis Plan: Continue pantoprazole 20 mg at bedtime (5) Bipolar disorder: Code(s): F31.9 - Bipolar disorder, unspecified (6) Bipolar 1 disorder: Comment: Beth Bowie Code(s): F31.9 - Bipolar disorder, unspecified Plan: Currently followed by psychiatry, stable and controlled on present treatment (7) Tremors of nervous system: Code(s): R25.1 - Tremor, unspecified Coding Level of Care Code Est Pt Level 4 (21966) Diagnoses Preoperative examination Z01.818 Primary hypertension I10 Hypertension type: primary hypertension Hyperlipidemia E78.5 GERD (gastroesophageal reflux disease) K21.9 Bipolar disorder F31.9 Bipolar 1 disorder F31.9 Tremors of nervous system R25.1
[2023-06-20 14:10] VITALS: BP 124/80; PULSE 91; O2SAT 97; BMI 27.3
== END 2023-06-20 14:48 | disposition home or self-care (01) ==
PROVIDERS: PCP Internal Medicine; Visit Provider Internal Medicine
DX: I10 Essential (primary) hypertension (principal); F31.9 Bipolar disorder, unspecified; Z01.818 Encounter for other preprocedural examination; E78.5 Hyperlipidemia, unspecified; K21.9 Gastro-esophageal reflux disease without esophagitis; R25.1 Tremor, unspecified
CPT/HCPCS: 99214

== ENCOUNTER 2023-08-15 12:46 | Outpatient (AMB) | payer MEDICARE, SELFPAY ==
[2023-08-15 12:52] VITALS: BP 110/70; PULSE 90; O2SAT 94; BMI 26.7
--- NOTE | 2023-08-15 12:52 | A.OFFVIS_ITS ---
Intake Vital Signs 08/15/23 12:52 Height 5 ft 4 in Weight 155 lb 6 oz BMI 26.7 BP 110/70 Blood Pressure Location Rt brachial Position Sitting Pulse 90 Pulse Source Pulse Oximeter Pulse Oximetry (%) 94 Oxygen Delivery Method Room Air Intake Visit Reasons: AMI G0439 Intake Note: pt is here for medicare wellness visit Process Equipment Operator Required: No Accompanied by: Self / Same As Patient Allergies No Known Allergies [No Known Allergies*] Allergy (Verified 08/19/23 03:58) Medication List - Last Reconciled 08/19/23 by Jesusita Jo MD acetaminophen ER 650 mg PO Q6H PRN amlodipine 5 mg PO DAILY aspirin 81 mg PO DAILY divalproex 1 tab PO BID 30 days folic acid 1 mg PO DAILY ketotifen fumarate 0.025%(0.035%) (Allergy Eye (ketotifen)) 1 drp ophthalmic (eye) Q12H PRN nortriptyline 10 mg PO BEDTIME pantoprazole 20 mg PO BEDTIME risperidone microspheres ER (Risperdal Consta) mg IM simvastatin 20 mg PO BEDTIME torsemide 1 tab PO DAILY PRN 30 days Do you need a note to return to daycare/school/sports/work: No HPI NIKOLEV G0439 HPI Details SWV ? 78-year-old lady with history of bipolar disorder, hypertension, hyperlipidemia, obesity and chronic GERD with history of breast cancer status post double mastectomy, here today for her subsequent Annual Wellness Visit.? She is up-to-date with her screening colonoscopy done at [facility] 3 years ago, no longer gets Pap smears, up-to-date with her lipid screening done 06/09/2023 with normal findings and had a fasting glucose at the same time showing glucose levels in the prediabetic range. She is up-to-date with her flu shot and COVID vaccination as well as her Shingrix and pneumococcal vaccine, has not yet had RSV vaccine. ? Medical / Social History Reviewed? Past Medical History ?Yes . ? [place] of Care / Care Team list updated ?Yes . ? Surgical/Hospitalization History ?Yes . ? Current Medications (including OTC and supplements) ?Yes . ? Family History ?Yes . ? Tobacco Control form ?Yes . ? AUDIT-C (Alcohol use) form ?Yes . ? Illicit drug use in Social History ?Yes . ? Current diagnosis of depression? ?No ? Appropriate PHQ2/PHQ9 completed ?Yes . ? Data entered by ?Junior Brand Manager and reviewed by provider ? Fall Risk ? Fall History? Have you had any falls with injury in the past year? ?No . ? Have you had two or more falls in the past year? ?No . ? Fall Risk Assessment: ?No falls in the past year . ? HRA filled out by the patient, reviewed by Provider and scanned. ?SWV ? Balance? Romberg ?Yes . ? Tandem walk ?unable. ? Walk and Turn ?Yes . ? Rise from sit to stand ?Yes . ?Vision? Corrective lens ?Yes ? Vision screen ? Up-to-date, she sees Dr. Tomlinson at [facility], had cataract surgery and last month. ?Hearing? Whisper test ?failed ?Written Plan?Completed. See Patient Documents.? HPI Comments History of Present Illness Details She is also complaining of decreased hearing in both ears, would like a referral to speech and hearing center in [place]. Also has been having recurrent low back pain, worse with walking, has a slow gait has been taking [id number] Tylenol which has not afforded much improvement. Like a referral back for physical therapy. She also has a slightly pruritic rash on left anterior neck which she would like a referral to Dermatology, has been applying onnz-mol-lfslfwx cortisone which has not afforded much improvement [facility] Medical History (Updated 08/19/23 @ 04:11 by Jesusita Jo MD) Chronic low back pain Rash of neck Hearing impairment Generalized muscle weakness Cognitive disorder TIA (transient ischemic attack) Tremors of nervous system Gait disorder DVT (deep venous thrombosis) Obesity Hyperlipidemia HTN (hypertension) GERD (gastroesophageal reflux disease) Breast cancer Bipolar 1 disorder Surgical History H/O mastectomy Family History Brother Alcohol abuse Polio Substance use disorder Brother Cancer Sister Stroke Mental health disorder Mother HTN (hypertension) Sister Cancer Social History Household Members: None Housing: House Do you presently have visiting nurse or other home services: Yes Unable to assess alcohol history related to: Refusing to respond Alcohol intake: current Alcohol type: wine Patient Tobacco Use Status: Former Tobacco user Quit Date: 11 years ago Tobacco use type: Smokeless Tobacco Years Smoked: 30 e-Cigarette/Vaping Use: Never Used Second Hand Smoke Exposure: No Advance Directives Date on File: 05/01/22 service: No Sexual orientation: Straight/Heterosexual Cognitive needs: No Hearing needs: No Vision needs: Yes Questionnaire Medicare Wellness Checkup [age] What gender do you identify with?: female During the past 4 weeks, how much have you been bothered by emotional problems such as feeling anxious, depressed, irritable, sad or downhearted, and blue?: not at all During the past 4 weeks, has your physical & emotional health limited your social activities with family, friends, neighbors, or groups?: slightly During the past 4 weeks, how much bodily pain have you generally had?: mild pain During the past 4 weeks, was someone available to help you if you needed & wanted help?: yes, some During the past 4 weeks, what was the hardest physical activity you could do for at least 2 minutes?: moderate Can you get to places out of walking distance without help? (For eg., can you travel alone on buses, taxis or drive your car?): No Can you go shopping for groceries or clothes without someone's help?: No Can you prepare your own meals?: Yes Can you do your housework without help?: No Because of any health problems, do you need the help of another person with your personal care needs such as eating, bathing, dressing or getting around the house?: Yes Can you handle your own money without help?: Yes During the past 4 weeks, how would you rate your health in general?: good During the past 4 weeks how have things been going for you?: pretty well Are you having difficulties driving your car?: not applicable, I don't use a car Do you always fasten your seat belt when you are in a car?: no During past 4 weeks, have you been bothered by the following: never: Sexual problems?, Trouble eating well?, Teeth or denture problems? and Problems using the telephone? and seldom: Falling or dizzy when standing up and Tiredness or fatigue? Have you fallen 2 or more times in the past year?: Yes Are you afraid of falling?: No Are you a smoker?: no During the past 4 weeks, how many drinks of wine, beer, or other alcoholic beverages did you have?: 1 drink or less per week Do you exercise for about 20 minutes 3 or more times a week?: no, I usually do not exercise this much Have you been given information to help with the following?: yes: Hazards in your house that might hurt you? and yes: Keeping track of your medications? How often do you have trouble taking medicines the way you have been told to take them?: I always take medicine as prescribed How confident are you that you can control & manage most of your health problems?: very confident What is your race?: White Mini Mental State Exam (MMSE) Orientation What is the (year) (season) (date) (day) (month)?: year (2022), season (Winter), date (08/15/2023), day (friday) and month (July) Where are we (state) (county) (town or city) (hospital) (floor)?: state ([place]), county ([place]), town or city ([place]) and hospital/clinic ([facility]) Score Score: 9 Activity of Daily Living Bathing - sponge bath, tub bath or shower: receives help in bathing only one body part (such as back or leg) Dressing - getting clothes from closets & drawers, including inner/outer garments & fasteners.: gets clothes & gets completely dressed without help Toileting - going to the 'toilet room' for urine/bowel elimination & cleaning self/arranging clothes: goes to toilet room, cleans self, arranges clothes without help Transfer: moves in & out of bed and chair without help (may use support object) Continence: controls urination/bowel movements completely by self Feeding: feeds self without help (Has meals on wheels, 2 meals a day) Total Score: 0 Information obtained from: patient Using telephone: independent Traveling: dependent Shopping: dependent Preparing meals: dependent Housework: needs assistance Taking medicine: needs assistance (Has a nurse that sets up medicine every week) Managing money: needs assistance PHQ-9 Over the last 2 weeks, how often have you been bothered by any of the following problems? 1. Little interest or pleasure in doing things: not at all 2. Feeling down, depressed, or hopeless: not at all 3. Trouble falling or staying asleep, or sleeping too much: not at all 4. Feeling tired or having little energy: not at all 5. Poor appetite or overeating: not at all 6. Feeling bad about yourself - or that you are a failure or have let yourself or your family down: not at all 7. Trouble concentrating on things, such as reading the newspaper or watching television: not at all 8. Moving or speaking so slowly that other people could have noticed. Or the opposite - being so fidgety or restless that you have been moving around a lot more than usual: not at all 9. Thoughts that you would be better off or of hurting yourself in some way: not at all Total score: 0 Depression Screening Interpretation: Negative (Currently followed by [facility] Bowie) Depression Screening Done: Yes 69760 - PHQ-9 Billing: Yes Source: Developed by Drs. Alex Newsome, Estefania Rivera, Juancarlos Baig and colleagues, with an educational kulwinder from [employer]. Review of Systems Const Denies frequent falls and Denies headache(s) ENT Reports no additional complaints and Denies headache(s) Card Denies chest pain, Denies chest pain with activity, Reports pedal edema (Intermittent), Denies irregular heart rhythm and Denies dyspnea Resp Denies chest congestion, Denies cough and Denies dyspnea GI Reports heartburn (Controlled on medication) Reports no additional complaints Musc Reports abnormal gait and Reports muscle cramps Skin/Breast Reports as per HPI Neuro Reports abnormal gait, Denies frequent falls, Denies headache(s) and Reports tremor(s) Psych Reports anxiety, Reports depression, Reports mood swings, Denies hallucinations and Denies suicidal ideation Gordon/Lymph Denies easy bleeding and Denies easy bruising Aller/Immun Reports no additional complaints Physical Exam Vital Signs: Last Vital Signs Pulse 90 08/15/23 12:52 BP 110/70 08/15/23 12:52 Pulse Ox 94 08/15/23 12:52 Oxygen Delivery Method Room Air 08/15/23 12:52 BMI result Body Mass Index 26.7 Const General: cooperative, healthy appearing, comfortable and no acute distress Orientation/consciousness: patient oriented x3 HEENT Head: Yes normal to inspection and Yes normocephalic Eyes General: appearance normal, both eyes and all related structures Neck Neck: Yes full ROM and Yes no lymphadenopathy Resp Auscultation: clear to auscultation bilaterally Cardio Rate: regular rate Rhythm: regular rhythm Heart sounds: S1 normal heart sound present and S2 normal heart sound present GI Palpation (GI): Soft to palpation, nontender and no guarding Auscultation: normal bowel sounds Back/Spine/Pelvis Thoracic/Lumbar Spine: straight leg raise negative bilaterally and paraspinal muscle tenderness bilaterally in the mid lumbar and in the lower lumbar Skin Other: Erythematous macular rash on left anterior neck Neuro General: patient oriented x3, tone normal and moves all extremities Cranial nerves: Yes CN's II-XII intact bilaterally Cognition (Neuro): normal cognition Gait exam (Neuro): Other gait observations present (slow, small steps , off balance) Motor exam (neuro): 5/5 motor strength present throughout Psych Appearance: grossly normal Mental Status: mental status grossly normal Speech and movement: Normal speech and movement present Immunizations pneumoc 20-gayatri conj-dip cr(PF) 0.5 mL IM syringe Performing Provider: Jesusita Jo MD Performing Location: [facility] Administered by: Aleksandar Stahl CMA on 08/15/23 13:15 Dose Route Admin Location Dispensed Lot Number Expiration Date NDC Auto Tester 0.5 mL IM Right Deltoid 0.5 mL [id number] 10/22/24 [id number] WYETH/PFIZER VIS Given Date VIS Provided VIS Publication Date 08/15/23 Single Vaccine 21 Eligibility Eligibility Date Funding Source Not [facility] Eligible 08/15/23 Private Assessment & Plan Assessment & Plan (1) Encounter for subsequent annual wellness visit (AWV) in Medicare patient: Code(s): Z00.00 - Encounter for general adult medical examination without abnormal findings Plan: Medical wellness checklist, reviewed discussed with patient and updated. Patient has healthcare proxy already in place, requested copy to be scanned into her medical record. Prevnar 20 given today (2) Skin cancer screening: Code(s): Z12.83 - Encounter for screening for malignant neoplasm of skin Plan: Referral to Dermatology ordered (3) Rash of neck: Code(s): R21 - Rash and other nonspecific skin eruption Plan: Dermatology consult ordered (4) Hyperlipidemia: Code(s): E78.5 - Hyperlipidemia, unspecified Plan: Continue simvastatin 20 mg at bedtime, fasting lipid panel ordered (5) HTN (hypertension): Code(s): I10 - Essential (primary) hypertension Qualifiers: Hypertension type: primary hypertension Qualified Code(s): I10 - Essential (primary) hypertension Plan: Blood pressure at goal of less than 130/80. Continue with current medication. Reinforced importance of following a low sodium diet, getting regular exercise, and lowering stress levels. (6) Gait disorder: Code(s): R26.9 - Unspecified abnormalities of gait and mobility Plan: Referred for physical therapy (7) Hearing impairment: Code(s): H91.90 - Unspecified hearing loss, unspecified ear Qualifiers: Hearing loss type: unspecified Laterality: unspecified laterality Qualified Code(s): H91.90 - Unspecified hearing loss, unspecified ear Plan: Referred to speech and hearing center in [place] (8) Chronic low back pain: Code(s): M54.50 - Low back pain, unspecified; G89.29 - Other chronic pain Qualifiers: Back pain laterality: unspecified Sciatica presence: without sciatica Qualified Code(s): M54.50 - Low back pain, unspecified; G89.29 - Other chronic pain Plan: Referred for physical therapy (9) GERD (gastroesophageal reflux disease): Code(s): K21.9 - Gastro-esophageal reflux disease without esophagitis Qualifiers: Esophagitis presence: esophagitis presence not specified Qualified Code(s): K21.9 - Gastro-esophageal reflux disease without esophagitis Plan: Currently on pantoprazole (10) Bipolar 1 disorder: Comment: Beth Bowie Code(s): F31.9 - Bipolar disorder, unspecified Plan: Followed by psychiatry Orders: Orders Pneumococcal 20 Immunization 08/15/23 Z23 - Encounter for immunization Lipid Panel 12/24/23 E66.9 - Obesity, unspecified, E78.5 - Hyperlipidemia, unspecified, I10 - Essential (primary) hypertension Basic Metabolic Panel Fasting 12/24/23 E66.9 - Obesity, unspecified, E78.5 - Hyperlipidemia, unspecified, I10 - Essential (primary) hypertension Alanine Aminotransferase 12/24/23 E66.9 - Obesity, unspecified, E78.5 - Hyperlipidemia, unspecified, I10 - Essential (primary) hypertension PT Evaluation and Treatment 08/15/23 G89.29 - Other chronic pain, M54.50 - Low back pain, unspecified Aspartate Amino Transferase 12/24/23 E66.9 - Obesity, unspecified, E78.5 - Hyperlipidemia, unspecified, I10 - Essential (primary) hypertension Vitamin D 25-OH Total 12/24/23 E66.9 - Obesity, unspecified, E78.5 - Hyperlipidemia, unspecified, I10 - Essential (primary) hypertension Referrals Speech and Hearing Referral H91.90 - Unspecified hearing loss, unspecified ear Dermatology Referral R21 - Rash and other nonspecific skin eruption, Z12.83 - Encounter for screening for malignant neoplasm of skin Quality Reporting (2020) Depression/Bipolar (159/160/161/177) PHQ-9: Total score: 0 Coding Level of Care Code Medicare Subsequent (G0439) Est Pt Level 3 (74672) Diagnoses Encounter for subsequent annual wellness visit (AWV) in Medicare patient Z00.00 Skin cancer screening Z12.83 Rash of neck R21 Hyperlipidemia E78.5 Primary hypertension I10 Hypertension type: primary hypertension Gait disorder R26.9 Hearing loss, unspecified hearing loss type, unspecified laterality H91.90 Hearing loss type: unspecified Laterality: unspecified laterality Chronic low back pain without sciatica, unspecified back pain laterality M54.50; G89.29 Back pain laterality: unspecified Sciatica presence: without sciatica Gastroesophageal reflux disease, unspecified whether esophagitis present K21.9 Esophagitis presence: esophagitis presence not specified Bipolar 1 disorder F31.9 Advance Care Planning Advance Care Planning discussion: Exists, not on file
== END 2023-08-15 13:45 | disposition home or self-care (01) ==
PROVIDERS: PCP Internal Medicine; Visit Provider Internal Medicine
DX: Z00.00 Encounter for general adult medical examination without abnormal findings (principal); Z12.83 Encounter for screening for malignant neoplasm of skin; R21 Rash and other nonspecific skin eruption; F31.9 Bipolar disorder, unspecified; E78.5 Hyperlipidemia, unspecified; H91.93 Unspecified hearing loss, bilateral; I10 Essential (primary) hypertension; M54.50 Low back pain, unspecified; R26.9 Unspecified abnormalities of gait and mobility; G89.29 Other chronic pain; K21.9 Gastro-esophageal reflux disease without esophagitis
CPT/HCPCS: 90471; 90677; 99213; G0439

== ENCOUNTER 2023-11-06 13:00 | Outpatient (RCR) | payer MEDICARE, SELFPAY ==
--- NOTE | 2023-09-24 14:53 | MHC.PT.EP ---
[facility] [place] Office [place] Office [place] Office [address] Timothy Roy [address] [phone] F: [phone] F: [phone] F: [phone] F: [phone] Physical Therapy Plan of Care Date of Evaluation: 09/24/23 Date of Surgery: none Diagnosis: low back pain Assessment: Patient is a 78 year old R handed female who presents with s/s consistent with low back pain. She does not work and has recently had her license taken away. Patient past medical history includes HTN, TIA, breast cancer, cognitive disorder, and DVT. Current impairments include pain, posture, ROM, strength, activity tolerance, safety, independence, and functional mobility. Functional limitations include decreased ability to walk, stand, transfer, shower, bend, lift and negotiate stairs, get out of cars and chairs. Patient is motivated with good rehab potential. Skilled PT will address impairments and functional limitations in order to achieve goals. Frequency and Duration: The patient will be seen 2x/week for 5 weeks Short Term Goals: I with HEP - 2 weeks AROM rotation to 50% b/l pain free - 3 weeks Sit <> stand 5x in 1 minutes - 3 weeks Car Unloader Goals: Oswestry 24% or less - 5 weeks Able to walk 10 minutes without increased pain - 5 weeks LE strength 4/5 grossly - 5 weeks Max back pain with ADLs 10 - 5 weeks Sit <> stand 8x in 1 minutes - 5 weeks Treatment Plan: Modalities to reduce pain, spasms and effusion. Manual therapy to restore motion and function. Therapeutic exercise to improve strength and flexibility. Neuromuscular re-education for posture and balance. Therapeutic activities to return to functional activities of daily living. Electronically signed by: Atif Schaffer, PT Please sign and return to therapist. Thank you for your referral.
--- NOTE | 2024-06-02 10:21 | MHC.PT.DC ---
[facility] [place] Office [place] Office [place] Office [address] Timothy Roy [address] [phone] F: [phone] F: [phone] F: [phone] F: [phone] Physical Therapy Discharge Report Diagnosis: low back pain Date of Surgery: none Date of Evaluation: 09/24/23 Date of Discharge: 11/15/23 Treatments to Date: 7 Cancellations to Date: No Shows to Date: Discharge Status: Patient Elected to Stop Discharge Summary: Pt had to stop due to other health concerns. 11/06/23: pt is responding very well to current program. we will continue to progress as tolerated. s/s less today. 11/04/23: pt progressing well with skilled PT. reduced s/s today. improved compliance with HEP. 10/31/23: pt has been feeling relief from seated rotation stretch. continue to progress as tolerated. 10/29/23: pt progressing well with skilled PT. no adverse reactions from above program. notes s/s seem to reduce with current program. 10/09/23: pt continues to progress well. able to do new HEP. continue to progress as tolerated. 10/02/23: we issued seated HEP since pt had difficulty with supine version. assess compliance and progress as tolerated NV. Patient is a 78 year old R handed female who presents with s/s consistent with low back pain. She does not work and has recently had her license taken away. Patient past medical history includes HTN, TIA, breast cancer, cognitive disorder, and DVT. Current impairments include pain, posture, ROM, strength, activity tolerance, safety, independence, and functional mobility. Functional limitations include decreased ability to walk, stand, transfer, shower, bend, lift and negotiate stairs, get out of cars and chairs. Patient is motivated with good rehab potential. Skilled PT will address impairments and functional limitations in order to achieve goals. Electronically signed by: Atif Schaffer, PT Please sign and return to therapist. Thank you for your referral.
== END 2024-06-02 10:21 | disposition home or self-care (01) ==
LOC: HO.PTCHIC 13:00
PROVIDERS: PCP Internal Medicine; Visit Provider Internal Medicine
DX: M54.50 Low back pain, unspecified (principal); G89.29 Other chronic pain
CPT/HCPCS: 97110; 97163

== ENCOUNTER 2023-11-10 10:19 | Outpatient (REF) | payer MEDICARE, OTHER, SELFPAY ==
[2023-11-10 14:07] LABS: Anion Gap 17 (12-20); Blood Urea Nitrogen 28 mg/dL (9-16); Calcium 9.1 mg/dL (8.4-10.2); Carbon Dioxide 23 mmol/L (22-29); Chloride 105 mmol/L (96-108); Estimated Glomerular Filt Rate 42; Sodium 141 mmol/L (135-145)
== END 2023-11-10 10:20 | disposition home or self-care (01) ==
LOC: HO.HMGCLDS 10:19
PROVIDERS: PCP Internal Medicine; Visit Provider Student in an Organized Health Care Education/Training Program
DX: I12.9 Hypertensive chronic kidney disease with stage 1 through stage 4 chronic kidney disease, or unspecified chronic kidney disease (principal); N18.32 Chronic kidney disease, stage 3b
CPT/HCPCS: 36415; 80051; 82310; 82565; 84520

== ENCOUNTER 2023-11-17 12:51 | Outpatient (REF) | payer MEDICARE, OTHER, SELFPAY | END 2023-11-17 12:52 | disposition home or self-care (01) | LOC: HO.SH 12:51 | PROVIDERS: PCP Internal Medicine; Visit Provider Internal Medicine | DX: Z01.118 Encounter for examination of ears and hearing with other abnormal findings (principal); H90.3 Sensorineural hearing loss, bilateral | CPT/HCPCS: 92557 ==

== ENCOUNTER 2023-11-29 11:28 | Inpatient (IN) | payer MEDICARE, SELFPAY ==
[2023-11-29] VITALS (7 sets, daily range): BP systolic 111–149; BP diastolic 69–98; PULSE 73–124; RESP 16–22; TEMP 36.5–37; O2SAT 91–97; BMI 31.0
--- NOTE | 2023-11-29 | ECG_ITS ---
Test Reason : NSTEMI Blood Pressure : / mmHG Vent. Rate : 118 BPM Atrial Rate : 118 BPM P-R Int : 158 ms QRS Dur : 122 ms QT Int : 338 ms P-R-T Axes : 051 070 014 degrees QTc Int : 473 ms Sinus tachycardia Septal infarct , age undetermined T wave abnormality, consider anterior ischemia or RV strain Abnormal ECG When compared with ECG of 29-NOV-2023 11:54, Premature ventricular complexes are no longer Present QRS duration has increased Septal infarct is now Present Referred By: Vanessa Andre Electronically Signed By:MONROE SUAREZ MD
--- NOTE | ~2023-11-29 | XR_ITS ---
EXAMINATION: XR HIP, LEFT CLINICAL INFORMATION: Fall COMPARISON: None available. TECHNIQUE: Two views of the left hip. One view of the pelvis. FINDINGS: Acute subcapital left femoral neck fracture. Mild to moderate osteoarthritis of the bilateral hips with borderline loss of joint space. Large volume of desiccated stool in the rectum and colon. Calcified phleboliths in the pelvis. No dislocation. XR/XR hip LT w PEL1V IMPRESSION: 1. Acute subcapital left femoral neck fracture. 2. 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 3. Large volume of desiccated stool in the rectum and colon.
--- NOTE | ~2023-11-29 | CT_ITS ---
EXAMINATION: CT HEAD WITHOUT CONTRAST CT CERVICAL SPINE WITHOUT CONTRAST CLINICAL INFORMATION: Fall with head strike. COMPARISON: No relevant prior imaging. TECHNIQUE: [employer] images were obtained. CT imaging of the head and cervical spine was performed without contrast. Data was reformatted into multiplanar images at the acquisition workstation. This CT examination was performed using dose optimization techniques as appropriate, including one or more of the following: Automated exposure control, iterative reconstruction, and adjustment of technique factors (mA and/or kVp) according to patient size (this includes techniques or standardized protocols for targeted exams where dose is matched to indication/reason for exam). Fleischner Society criteria for the followup of incidental pulmonary nodules was implemented if appropriate. DLP: 1002 mGy-cm. FINDINGS: Head: There is no acute intracranial hemorrhage or abnormal extra-axial collection. No intracranial mass effect or midline shift. Lateral and third ventricles are normal. No hydrocephalus. Scattered nonspecific foci of hypoattenuation are visualized within the periventricular white matter. Schaefer-white matter differentiation is otherwise preserved and there is no evidence of acute territorial infarct. The calvarium and skull base are intact. Mastoid air cells and middle ear cavities are well aerated. Mild to moderate paranasal sinus mucosal thickening within the right maxillary sinus. Otherwise no active paranasal sinus disease. Cervical spine: Slight anterolisthesis of C7 on T1 that appears to be related to facet degenerative changes at this level. Alignment is otherwise normal. Vertebral body heights are preserved. No acute fracture. No abnormal prevertebral soft tissue swelling. Canal patency is not well assessed on this examination due to inherent limitations of CT without intrathecal contrast. There is loss of intervertebral disc height with associated sclerotic degenerative endplate changes and hypertrophic disc osteophyte spurring at multiple levels. Uncovertebral joint spurring in conjunction with facet degenerative change causes moderate to severe neuroforaminal encroachment at multiple levels. Lung apices are clear. Heavily calcified atheromatous plaque involves both carotid bifurcations. Soft tissues of the neck are otherwise unremarkable. CT/CT cervical spine wo IV con IMPRESSION: Head: No acute intracranial hemorrhage. There are scattered chronic small vessel ischemic changes within the periventricular white matter. Grossly no evidence of acute territorial infarct. Cervical Spine: No acute fracture and no posttraumatic spinal subluxation. There is advanced multilevel degenerative spondylosis of the cervical spine. Canal patency is not well assessed on this examination due to inherent limitations of CT without intrathecal contrast.
--- NOTE | ~2023-11-29 | XR_ITS ---
EXAMINATION: XR CHEST CLINICAL INFORMATION: Reason for Exam hypoxia COMPARISON: Chest radiograph 11/29/2023 TECHNIQUE: One view of the chest FINDINGS: Lines and tubes: EKG leads overlie the patient. Bilateral axillary surgical clips. Partially imaged IVC filter. Bilateral breast prostheses. Clear lungs. No pleural effusion. No pneumothorax. Atherosclerosis of the thoracic aorta. Normal cardiac silhouette. XR/XR chest 1V IMPRESSION: * Clear lungs.
--- NOTE | ~2023-11-29 | CT_ITS ---
EXAMINATION: CT ANGIOGRAM OF THE CHEST WITH AND WITHOUT CONTRAST (CT PULMONARY ANGIOGRAM FOR PE) CLINICAL INFORMATION: Reason for Exam hypoxia, tachycardia COMPARISON: None available. TECHNIQUE: Prior to contrast administration, noncontrast localization images were obtained. Subsequently, multidetector volumetric imaging was performed from the thoracic inlet to below the diaphragms following the administration of 80 mL Omnipaque 350 intravenous contrast. No contrast reaction reported Sagittal, coronal, and MIP oblique sagittal reformatted images were obtained on the CT workstation, uploaded to PACS, and reviewed. This CT examination was performed using dose optimization techniques as appropriate, variously including the following: *Automated exposure control *Adjustment of mA and/or kV according to patient size (this includes techniques or standardized protocols for targeted exams where dose is matched to indication/reason for exam; i.e. extremities or head) *Use of iterative reconstruction technique Total exam dose-length product 312 mGy-cm FINDINGS: QUALITY OF STUDY/CONTRAST BOLUS: Satisfactory. PULMONARY ARTERIES: Right sided segmental and subsegmental pulmonary emboli involving the upper, mid, and lower lobes. Left-sided pulmonary emboli along the distal left main pulmonary artery with segmental and subsegmental extension in the left upper and lower lobes. Main pulmonary artery is not enlarged. THORACIC AORTA: No aneurysm. Atherosclerotic calcifications of the aortic arch. LUNG/PLEURA: Emphysematous changes. Peripheral reticular nodular opacities. Calcified granuloma anterior aspect right lower lobe (series 7, image 211). Bibasilar atelectasis. Central airways are patent. No pneumothorax. No large pleural effusion. MEDIASTINUM: Heart is not enlarged. No pericardial effusion. Coronary artery calcifications are noted. No enlarged lymph nodes per size criteria. Visualized portions of the thyroid are unremarkable. Mild septal bowing suggesting elements of heart strain. CHEST WALL/AXILLA: No axillary or internal mammary lymphadenopathy.Bilateral breast implants. OSSEOUS STRUCTURES: Multilevel degenerative changes of the thoracolumbar spine. UPPER ABDOMEN: Small hiatal hernia. Decreased hepatic attenuation suggesting hepatic steatosis. Fecal loading of the visualized colon. No reflux of contrast into the hepatic veins to suggest elevated right heart pressures. CT/CT angio chest PE protocol IMPRESSION: 1. Right sided segmental and subsegmental pulmonary emboli involving the upper, mid, and lower lobes. Left-sided pulmonary emboli along the distal left main pulmonary artery with segmental and subsegmental extension in the left upper and lower lobes. 2. Mild septal bowing suggesting elements of heart strain. No reflux of contrast into the hepatic veins. 3. Small hiatal hernia. 4. Decreased hepatic attenuation suggesting hepatic steatosis. This critical result was discussed with Dr. Cy Hendrix by telephone on 11/29/2023 8:47 PM and it was ascertained that the content and urgency of the report was understood at the time of direct communication.
--- NOTE | ~2023-11-29 | XR_ITS ---
EXAMINATION: XR CHEST CLINICAL INFORMATION: Reason for Exam dizzy, fall COMPARISON: Chest radiograph 10/03/2009 TECHNIQUE: One view of the chest FINDINGS: Lines and tubes: Left axillary and right axillary surgical clips. Clear lungs. No pleural effusion. No pneumothorax. Atherosclerosis of the thoracic aorta. Normal cardiac silhouette. Mild asymmetric elevation of the right hemidiaphragm. XR/XR chest 1V IMPRESSION: 1. Clear lungs. 2. Mild asymmetric elevation of the right hemidiaphragm.
--- NOTE | ~2023-11-29 | US_ITS ---
EXAMINATION: US VENOUS ULTRASOUND WITH DOPPLER LOWER EXTREMITY, BILATERAL CLINICAL INFORMATION: Pulmonary embolism COMPARISON: None available. TECHNIQUE: Ultrasound of the deep veins is performed from the hip to the calf with compression sonography and color and pulse Doppler assessment. Spectral analysis with color-flow imaging is performed. FINDINGS: RIGHT: There is normal venous compression and respiratory variation and augmented flow in the common femoral vein. There is nonocclusive thrombus in the proximal femoral vein. The distal femoral vein, popliteal vein, and tibial peroneal trunk are patent and compressible. There is no significant popliteal fossa cyst. LEFT: There is normal venous compression and respiratory variation and augmented flow in the common femoral vein. There is nonocclusive thrombus throughout the femoral vein and popliteal vein. There is no significant popliteal fossa cyst. US/US venous duplex LE BI IMPRESSION: Bilateral nonocclusive thrombus involving the right proximal femoral vein and the left femoral vein and popliteal vein.
--- NOTE | 2023-11-29 11:32 | ECG_ITS ---
Test Reason : FALL Blood Pressure : / mmHG Vent. Rate : 119 BPM Atrial Rate : 119 BPM P-R Int : 164 ms QRS Dur : 096 ms QT Int : 312 ms P-R-T Axes : 071 080 015 degrees QTc Int : 438 ms Sinus tachycardia with occasional Premature ventricular complexes Low voltage QRS Nonspecific ST and T wave abnormality Abnormal ECG When compared with ECG of 09-JUN-2023 09:30, ST now depressed in Lateral leads Inverted T waves have replaced nonspecific T wave abnormality in Inferior leads Nonspecific T wave abnormality now evident in Anterior leads Referred By: Elisabet Dubois Electronically Signed By:MONROE SUAREZ MD
--- NOTE | 2023-11-29 11:43 | ED.FALL ---
HPI - Fall General Chief Complaint: Fall Stated Complaint: fall from standing dizzy Time Seen by Provider: 11/29/23 11:32 Source: patient, EMS and RN notes reviewed Mode of arrival: EMS Limitations: no limitations History of Present Illness HPI Narrative: Patient is a 78-year-old female with history HTN, TIA, cognitive disorder, DVT, HLD, GERD, bipolar 1 disorder, breast cancer presenting to the emergency department with complaint of left thigh pain after a fall at home this morning. Patient reports that she was walking into her kitchen when she felt lightheaded and fell onto her left side. She states that she lives alone. Denies head strike or loss of consciousness. She has not anticoagulated. Denies other complaints. States she had been awake for some time this morning prior to this episode. MD complaint: fall Onset (ago): minute(s) Fall from: standing Fall witnessed: no Place fall occurred: home Loss of consciousness: none Prolonged down time: no Symptoms prior to fall: lightheadedness Location of injury - extremities: left: thigh Quality: aching Associated symptoms (after fall): unable to walk Related Data Home Medications ?Medication ?Instructions ?Recorded ?Confirmed folic acid 1 mg tablet 1 mg PO DAILY 09/30/22 06/20/23 risperidone microspheres 25 mg/2 25 mg IM Q14D 09/30/22 06/20/23 mL intramuscular susp,ext release (Risperdal Consta) nortriptyline 10 mg capsule 10 mg PO BEDTIME 08/15/23 aspirin 81 mg tablet,delayed 81 mg PO DAILY 11/29/23 11/29/23 release furosemide 20 mg tablet 20 mg PO DAILY 11/29/23 lisinopril 5 mg tablet 5 mg PO DAILY 11/29/23 Previous Rx's ?Medication ?Instructions ?Recorded divalproex 500 mg tablet,delayed 1 tab PO BID 30 days #60 tabs 05/29/22 release torsemide 20 mg tablet 1 tab PO DAILY PRN swelling 30 05/29/22 days #30 tabs ketotifen fumarate 0.025 % (0.035 1 drp ophthalmic (eye) Q12H PRN 01/17/23 %) eye drops (Allergy Eye allergy symptoms #5 mL (ketotifen)) acetaminophen 650 mg 650 mg PO Q6H PRN pain #60 tabs 06/12/23 tablet,extended release aspirin 81 mg tablet,delayed 81 mg PO DAILY #90 tabs 06/27/23 release pantoprazole 20 mg tablet,delayed 20 mg PO BEDTIME #90 tabs 06/27/23 release simvastatin 20 mg tablet 20 mg PO BEDTIME #90 tabs 08/26/23 amlodipine 5 mg tablet 5 mg PO DAILY #90 tabs 10/03/23 Allergies Allergy/AdvReac Type Severity Reaction Status Date / Time No Known Allergies Allergy Verified 08/19/23 03:58 [No Known Allergies*] Review of Systems Review of Systems: As per HPI. Yes all other systems are reviewed and are negative Constitutional: Constitutional: Reports as per HPI [facility] Past Medical History Medical History (Updated 11/29/23 @ 13:46 by Elisabet Dubois NP) Chronic low back pain Rash of neck Hearing impairment Generalized muscle weakness Cognitive disorder TIA (transient ischemic attack) Tremors of nervous system Gait disorder DVT (deep venous thrombosis) Obesity Hyperlipidemia HTN (hypertension) GERD (gastroesophageal reflux disease) Breast cancer Bipolar 1 disorder Surgical History H/O mastectomy Family History Family History Brother Alcohol abuse Polio Substance use disorder Brother Cancer Sister Stroke Mental health disorder Mother HTN (hypertension) Sister Cancer Social History Social History Household Members: None Housing: House Do you presently have visiting nurse or other home services: Yes Unable to assess alcohol history related to: Refusing to respond Alcohol intake: current Alcohol type: wine Patient Tobacco Use Status: Former Tobacco user Quit Date: 11 years ago Tobacco use type: Smokeless Tobacco Years Smoked: 30 e-Cigarette/Vaping Use: Never Used Second Hand Smoke Exposure: No Advance Directives: Yes Advance Directives on File: Yes Advance Directives Date on File: 05/01/22 service: No Sexual orientation: Straight/Heterosexual Cognitive needs: No Hearing needs: No Vision needs: Yes Physical Exam Vital Signs: Vital Signs: Last Vital Signs Pulse 124 H 11/29/23 14:38 Resp 16 11/29/23 14:38 BP 134/80 11/29/23 14:38 Pulse Ox 95 11/29/23 14:38 O2 Del Method Nasal Cannula 11/29/23 14:38 O2 Flow Rate 3 11/29/23 14:38 Const: General: cooperative, healthy appearing and no acute distress Orientation/consciousness: oriented to person, oriented to place, oriented to time and patient oriented x3 Limitations: no limitations HEENT: Head: Yes normocephalic and Yes atraumatic Ears: external ears normal General nose exam: Normal external nose present Face and sinus: Yes face symmetric Mouth: oropharynx normal and moist mucous membranes Throat: Yes uvula midline Eyes: Pupils: Equal, round and reactive pupils present Neck: Neck: Yes normal visual inspection and Yes supple Resp: Effort & Inspection: normal respiratory effort and able to speak in complete sentences Auscultation: clear to auscultation bilaterally Cardio: Rate: regular rate Rhythm: regular rhythm Heart sounds: S1 normal heart sound present and S2 normal heart sound present GI: Palpation (GI): Soft to palpation and nontender Auscultation: normoactive bowel sounds : General: Yes no CVA tenderness Back/Spine/Pelvis: Back: no CVA tenderness Skin: General skin exam: elasticity normal and turgor normal Neuro: General: oriented to person, oriented to place, oriented to time, patient oriented x3, moves all extremities, no focal motor deficits and CN's II-XI intact bilaterally Cranial nerves: Yes Equal, round and reactive pupils present Cognition (Neuro): normal cognition Extrem: General: Yes full ROM, Yes no pedal edema and Yes no calf tenderness Left lower extremity: hip/thigh Details: tenderness Location: of the proximal upper leg, abnormal ROM and other (LLE shortened and externally rotated) Psych: Mental Status: mental status grossly normal Affect: normal affect Thought process: Normal thought process present Medications Administered Discontinued Medications Generic Name Dose Route Start Last Admin Trade Name Freq PRN Reason Stop Dose Admin Sodium Chloride 500 mls @ 500 mls/hr 11/29/23 13:15 11/29/23 14:26 Ns IV 11/29/23 14:14 500 mls/hr .Q1H LINDA Administration Morphine Sulfate 4 mg 11/29/23 11:48 11/29/23 12:55 Morphine Sulfate 4 Mg/Ml Cartridge IVPUSH 11/29/23 11:49 4 mg ONCE ONE Administration Protocol Ondansetron HCl 4 mg 11/29/23 11:48 11/29/23 12:55 Ondansetron Hcl 4 Mg/2 Ml Vial IVPUSH 11/29/23 11:49 4 mg ONCE ONE Administration Medical Decision Making Medical Decision Making [facility] Narrative: Patient is a 78-year-old female with history HTN, TIA, cognitive disorder, DVT, HLD, GERD, bipolar 1 disorder, breast cancer presenting to the emergency department with complaint of left thigh pain after a fall at home this morning. On exam patient is awake, A+Ox3, tachycardic, VS WNL, afebrile, normal neurological exam without focal deficits, physical exam findings as above. Given reported symptoms and physical exam findings, initial differential includes left hip/femoral fracture, ACS, cardiac dysrhythmia, UTI, pneumonia. Do not suspect sepsis at 11:50. EKG shows sinus tachycardia with occasional PVCs, rate 119bpm, normal NC interval, QTc. Labs notable for mild leukocytosis, chronically elevated BUN/Cr due to long-term lithium use, troponin of 54.6. X-ray hip/pelvis notable for left femoral neck fracture. No evidence of pneumonia on CXR. No ICH, skull fracture, cervical vertebral fracture or subluxation on CT. My interpretation is in agreement with the radiologist's interpretation. Of note, RN spoke with patient's sister who is her HCP, states patient was trialed off of lithium but did not do well, was recently restabilized on her lithium dose, would like to ensure dose remains the same while patient is admitted. Patient's director of psychology is Beth Xiao and can be contacted at [phone]. Spoke with lauren Pollard to notify her of fracture. Admission accepted by [facility]. Differential Diagnosis Differential Diagnoses: The differential diagnosis associated with the presentation includes As per [facility] Admission/Observation Consideration of admission/observation: Escalation of care including admission/observation considered Consult Healthcare Provider Management of the patient was discussed with: Hospitalist and Cuff Knitter (lauren Pollard) Lab Data [facility] Lab Attestation statement: I reviewed the patient's lab results. As per [facility] 11/29/23 11:47 11/29/23 11:47 Labs: Lab Results 11/29/23 Range/Units 11:47 WBC 12.0 H (4.8-10.8) X10*3/uL RBC 4.11 L (4.20-5.50) X10*6/uL Hgb 12.8 (12.0-16.0) g/dl Hct 38.0 (37.0-47.0) % MCV 92.5 (80.0-98.0) fL MCH 31.1 (27.0-33.0) pg MCHC 33.7 (31.0-35.0) g/dl RDW 13.4 (11.0-16.0) % Plt Count 162 D (160-400) X10*3/uL MPV 10.6 (9.4-12.3) fL Immature Gran % (Auto) 0.6 H (0.0-0.4) % Neut % (Auto) 74.1 H (45-73) % Lymph % (Auto) 19.6 L (20-40) % Ritchie % (Auto) 4.6 (2-11) % Eos % (Auto) 0.9 (0-4) % Baso % (Auto) 0.2 (0-2) % Lymph # (Auto) 2.4 (1.2-4.9) X10*3/uL Ritchie # (Auto) 0.6 (0.1-1.2) X10*3/uL Eos # (Auto) 0.1 (0.0-0.4) X10*3/uL Baso # (Auto) 0.0 (0.0-0.2) X10*3/uL Abs Immat Gran (auto) 0.07 H (0.00-0.03) X10*3/uL Absolute Neuts (auto) 8.9 H (2.0-8.3) x10*3/uL Absolute Nucleated RBC 0.000 (0.0-0.012) X10*3/uL Nucleated RBC % (auto) 0.0 (0.0-0.2) /100WBC PT 11.0 L (11.1-13.3) SEC INR 0.9 (0.9-1.1) Sodium 141 (135-145) mmol/L Potassium 4.3 (3.3-5.1) mmol/L Chloride 106 (96-108) mmol/L Carbon Dioxide 25 (22-29) mmol/L Anion Gap 14 (12-20) BUN 33 H (9-16) mg/dL Creatinine 1.42 H (0.5-1.4) mg/dL Estim Creat Clear Calc TNP Estimated GFR 36 Random Glucose 139 H (60-115) mg/dL Calcium 9.6 (8.4-10.2) mg/dL Total Bilirubin 0.5 (0.0-1.0) mg/dL AST 24 (5-31) U/L ALT 21 (0-31) U/L Alkaline Phosphatase 65 (39-117) U/L Troponin I High Sens 54.6 H* (<3.5-17.0) ng/L Total Protein 7.2 (6.5-8.0) g/dL Albumin 3.9 (3.5-5.0) g/dL Influenza Type A (PCR) NEGATIVE (Negative) Influenza Type B (PCR) NEGATIVE (Negative) RSV RNA Qual (PCR) NEGATIVE (Negative) SARS-CoV-2 RNA (RT-PCR) NEGATIVE (Negative) Independent Interpretation I performed an independent interpretation of an: EKG (EKG shows sinus tachycardia with occasional PVCs, rate 119bpm, normal NC interval, QTc.), Plain X-Ray and CT Scan Interpretation: left femoral neck fracture No evidence of pneumonia on CXR Radiology Impression Discussion of test interpretation with radiology: I have reviewed the radiologist's reading. Radiologist Impression: XR/XR hip LT w PEL1V IMPRESSION: 1. Acute subcapital left femoral neck fracture. 2. 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 3. Large volume of desiccated stool in the rectum and colon. XR/XR chest 1V IMPRESSION: 1. Clear lungs. 2. Mild asymmetric elevation of the right hemidiaphragm. CT/CT head/brain wo IV con IMPRESSION: Head: No acute intracranial hemorrhage. There are scattered chronic small vessel ischemic changes within the periventricular white matter. Grossly no evidence of acute territorial infarct. Cervical Spine: No acute fracture and no posttraumatic spinal subluxation. There is advanced multilevel degenerative spondylosis of the cervical spine. Canal patency is not well assessed on this examination due to inherent limitations of CT without intrathecal contrast. External Record Review External record reviewed: Inpatient record, Office record and Outpatient record Prescription Management I considered prescription management with: Pain Medication Critical Care Time Critical Care Time Critical Care Time: Yes Total Critical Care Time: 40 Attestation: I have personally provided critical care time exclusive of time spent on separately billable procedures. Time includes review of lab data, radiology results, discussion with consultants, and monitoring for potential decompensation. Intervention performed as documented. Discharge Plan Discharge Clinical Impression: Fracture of left femur Patient Disposition: Admitted As Inpatient Print Language: Yoruba
[2023-11-29 11:55] LABS: Basophils Percent Auto 0.2 % (0-2); Eosinophils Absolute Auto 0.1 X10*3/uL (0.0-0.4); Eosinophils Percent Auto 0.9 % (0-4); Hemoglobin 12.8 g/dl (12.0-16.0); Imm Gran Abs Auto 0.07 X10*3/uL (0.00-0.03); Imm Gran Pct Auto 0.6 % (0.0-0.4); Lymphocytes Absolute Auto 2.4 X10*3/uL (1.2-4.9); Lymphocytes Percent Auto 19.6 % (20-40); MANUAL DIFF FLAG NO; Mean Corpuscular HGB Conc 33.7 g/dl (31.0-35.0); Mean Corpuscular Hemoglobin 31.1 pg (27.0-33.0); Mean Corpuscular Volume 92.5 fL (80.0-98.0); Mean Platelet Volume 10.6 fL (9.4-12.3); Monocytes Absolute Auto 0.6 X10*3/uL (0.1-1.2); Monocytes Percent Auto 4.6 % (2-11); Neutrophils Absolute Auto 8.9 x10*3/uL (2.0-8.3); Neutrophils Percent Auto 74.1 % (45-73); Platelet Count 162 X10*3/uL (160-400); Red Blood Count 4.11 X10*6/uL (4.20-5.50); Red Cell Distribution Width 13.4 % (11.0-16.0)
[2023-11-29 12:04] LABS: INTERNATIONAL NORM RATIO 0.9 (0.9-1.1)
[2023-11-29 12:30] LABS: Alanine Aminotransferase 21 U/L (0-31); Albumin Level 3.9 g/dL (3.5-5.0); Alkaline Phosphatase 65 U/L (39-117); Anion Gap 14 (12-20); Aspartate Amino Transferase 24 U/L (5-31); Bilirubin Total 0.5 mg/dL (0.0-1.0); Blood Urea Nitrogen 33 mg/dL (9-16); Calcium 9.6 mg/dL (8.4-10.2); Carbon Dioxide 25 mmol/L (22-29); Chloride 106 mmol/L (96-108); Estimated Glomerular Filt Rate 36; Glucose Random 139 mg/dL (60-115); Potassium 4.3 mmol/L (3.3-5.1); Sodium 141 mmol/L (135-145); Total Protein 7.2 g/dL (6.5-8.0)
[2023-11-29 12:33] LABS: Troponin-I High Sensitivity 54.6 ng/L (<3.5-17.0)
[2023-11-29 12:35] LABS: Influenza A PCR NEGATIVE (Negative); Influenza B PCR NEGATIVE (Negative); Resp Syncy Virus RNA Qual PCR NEGATIVE (Negative); SARS COV2 PCR INHOUSE NEGATIVE (Negative)
[2023-11-29] MEDS: ondansetron HCL 4 MG/2 ML VIAL IVPUSH (12:55)
[2023-11-29] MEDS: Morphine Sulfate 4 MG/ML CARTRIDGE IVPUSH ×2 (12:55→21:46)
--- NOTE | 2023-11-29 14:17 | P.HPHOSP_ITS ---
History of Present Illness Date of Service: 11/29/23 <PHIL Arevalo - Last Filed: 11/29/23 16:31> Attending physician on admission: Ketan Lagos <PHIL Arevalo - Last Filed: 11/29/23 16:31> Chief Complaint: Left thigh pain after fall at home <PHIL Arevalo - Last Filed: 11/29/23 16:31> Pt is a 78-year-old female with a PMH significant for?HTN, HLD, cognitive disorder, hx of TIA, hx of DVT, hx of breast cancer, GERD, and bipolar I disorder who presents to the ED for evaluation of left thigh?pain after fall at home. Patient reports she was walking into her kitchen this morning when she had a ?spell that came over me from head to toe?. Describes this as a ?tingling? and ?ricks? over her entire body that caused her to lose her balance and she fell to the floor, landing on her left hip. Denies head strike or LOC. States has not had an episode like this before. After fall, patient had significant pain in her left hip extending down her left thigh. Reports noticing she became short of breath shortly after fall. Was able to call EMS who brought her to the emergency room for further evaluation. No chest pain/pressure, palpitations. Denies fever, chills, nausea, vomiting, abdominal pain. States she has been eating and drinking normally. No recent illnesses. Reports a remote history of smoking. In the ED labs were significant for leukocytosis of 12.0, BUN 33, creatinine 1.42, and initial troponin 54.6 with repeat 915.4. No significant electrolyte abnormalities. Stable H&H. CXR showed clear lungs. X-ray of hip and pelvis?showed acute subcapital left femoral neck fracture, as well as [id number] osteoarthritis of the bilateral hips and large volume of desiccated stool in the rectum and colon. CT of head found no acute intracranial hemorrhage but did show scattered chronic small-vessel ischemic changes. CT of cervical spine found no acute fracture or posttraumatic subluxation, but advanced multilevel degenerative spondylolysis. EKG demonstrated sinus tachycardia with occasional PVC with nonspecific ST and T- wave abnormalities. Repeat EKG showed sinus tachycardia of 158 with septal infarct now present. Pt was treated with ondansetron, IVF, morphine, and started on a heparin drip. Pt will be admitted to the hospital for treatment and further evaluation of NSTEMI and left hip fracture. <PHIL Arevalo - Last Filed: 11/29/23 16:31> Review of Systems 2 Review of Systems: Left hip and thigh pain s/p fall at home Lightheadedness/dizziness, whole body tingling SOB Denies chest pain/pressure or palpitations No fever, chills nausea, vomiting, pain <PHIL Arevalo - Last Filed: 11/29/23 16:31> [facility] Medical History: Medical History Chronic low back pain Rash of neck Hearing impairment Generalized muscle weakness Cognitive disorder TIA (transient ischemic attack) Tremors of nervous system Gait disorder DVT (deep venous thrombosis) Obesity Hyperlipidemia HTN (hypertension) GERD (gastroesophageal reflux disease) Breast cancer Bipolar 1 disorder <PHIL Arevalo - Last Filed: 11/29/23 16:31> Family History: Family History Brother Alcohol abuse Polio Substance use disorder Brother Cancer Sister Stroke Mental health disorder Mother HTN (hypertension) Sister Cancer <PHIL Arevalo - Last Filed: 11/29/23 16:31> Surgical History: Surgical History H/O mastectomy <PHIL Arevalo - Last Filed: 11/29/23 16:31> Social History: Social History Household Members: None Housing: House Do you presently have visiting nurse or other home services: Yes Unable to assess alcohol history related to: Refusing to respond Alcohol intake: current Alcohol type: wine Patient Tobacco Use Status: Former Tobacco user Quit Date: 11 years ago Tobacco use type: Smokeless Tobacco Years Smoked: 30 e-Cigarette/Vaping Use: Never Used Second Hand Smoke Exposure: No Advance Directives: Yes Advance Directives on File: Yes Advance Directives Date on File: 05/01/22 Nutrition Risks: No Nutritional Risk service: No Sexual orientation: Straight/Heterosexual Cognitive needs: No Hearing needs: No Vision needs: Yes <PHIL Arevalo - Last Filed: 11/29/23 16:31> Meds Allergies/Adverse reactions: Allergies Allergy/AdvReac Type Severity Reaction Status Date / Time No Known Allergies Allergy Verified 08/19/23 03:58 [No Known Allergies*] <PHIL Arevalo - Last Filed: 11/29/23 16:31> Active Medications: Current Medications Cefazolin Sodium/Dextrose (Ancef) 2 gm in 50 mls @ 100 mls/hr IV PREOP ONE Stop: 11/30/23 07:29 <PHIL Arevalo - Last Filed: 11/29/23 16:31> Home medications: Home Medications ?Medication ?Instructions ?Recorded ?Confirmed ?Last Taken ?Type folic acid 1 mg tablet 1 mg PO DAILY 09/30/22 11/29/23 11/28/23 History risperidone microspheres 25 mg/2 25 mg IM Q14D 09/30/22 11/29/23 11/27/23 History mL intramuscular susp,ext release (Risperdal Consta) nortriptyline 10 mg capsule 10 mg PO BEDTIME 08/15/23 11/29/23 11/28/23 History divalproex 500 mg tablet,delayed 500 mg PO BEDTIME 11/29/23 11/29/23 11/28/23 History release docusate sodium 100 mg capsule 100 mg PO DAILY 11/29/23 11/29/23 11/28/23 History furosemide 20 mg tablet 20 mg PO DAILY 11/29/23 11/29/23 11/28/23 History lisinopril 5 mg tablet 5 mg PO DAILY 11/29/23 11/29/23 11/28/23 History <PHIL Arevalo - Last Filed: 11/29/23 16:31> Physical Exam 2 Vital Signs and Narrative: Vital Signs: Last Vital Signs Resp 16 11/29/23 12:55 <PHIL Arevalo - Last Filed: 11/29/23 16:31> Constitutional: Alert, in no acute distress. Mental Status: Oriented to person, place and time. Eyes: Pupils are equal, round, and reactive to light. Ear, Nose, and Throat: Oropharynx clear, mucous membranes moist. Ears and nose without deformities. Trachea midline. Respiratory: Clear to auscultation bilaterally. No wheezing, rales, or rhonchi. Cardiovascular: S1, S2, tachy. No murmurs, rubs, or gallops. Gastrointestinal: Abdomen soft, non-tender, non-distended. Normal bowel sounds. Neurologic: Cranial nerves II-XII are grossly intact bilaterally. No focal neurological deficits. Moves all extremities spontaneously. Skin: Warm, dry. Musculoskeletal: Left hip and thigh tenderness. Left left shortened and externally rotated. Extremities: No edema. Psychiatric: Calm, cooperative. <PHIL Arevalo - Last Filed: 11/29/23 16:31> Results Labs CBC and Chem 7: 11/29/23 11:47 11/29/23 11:47 <PHIL Arevalo - Last Filed: 11/29/23 16:31> Labs: Laboratory Results - last 24 hr 11/29/23 11:47 MCV 92.5 MCH 31.1 MCHC 33.7 RDW 13.4 Plt Count 162 D MPV 10.6 Immature Gran % (Auto) 0.6 H Neut % (Auto) 74.1 H Lymph % (Auto) 19.6 L [place] % (Auto) 4.6 Eos % (Auto) 0.9 Baso % (Auto) 0.2 Lymph # (Auto) 2.4 [place] # (Auto) 0.6 Eos # (Auto) 0.1 Baso # (Auto) 0.0 Abs Immat Gran (auto) 0.07 H Absolute Neuts (auto) 8.9 H Absolute Nucleated RBC 0.000 Nucleated RBC % (auto) 0.0 PT 11.0 L INR 0.9 Anion Gap 14 Estim Creat Clear Calc TNP Estimated GFR 36 Random Glucose 139 H Calcium 9.6 Total Bilirubin 0.5 AST 24 ALT 21 Alkaline Phosphatase 65 Troponin I High Sens 54.6 H* Total Protein 7.2 Albumin 3.9 Influenza Type A (PCR) NEGATIVE Influenza Type B (PCR) NEGATIVE RSV RNA Qual (PCR) NEGATIVE SARS-CoV-2 RNA (RT-PCR) NEGATIVE <PHIL Arevalo - Last Filed: 11/29/23 16:31> Imaging Radiologist's Impressions: Impressions Chest X-Ray 11/29/23 12:31 IMPRESSION: 1. Clear lungs. 2. Mild asymmetric elevation of the right hemidiaphragm. Hip/Pelvis X-Ray 11/29/23 12:31 IMPRESSION: 1. Acute subcapital left femoral neck fracture. 2. 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 3. Large volume of desiccated stool in the rectum and colon. <PHIL Arevalo - Last Filed: 11/29/23 16:31> Assessment and Plan (1) Fracture of left femur: Status: Acute <PHIL Arevalo - Last Filed: 11/29/23 16:31> (2) NSTEMI (non-ST elevated myocardial infarction): Status: Acute <PHIL Arevalo - Last Filed: 11/29/23 16:31> Pt is a 78-year-old female with a PMH significant for?HTN, HLD, cognitive disorder, hx of TIA, hx of DVT, hx of breast cancer, GERD, and bipolar I disorder who presents to the ED for evaluation of left thigh?pain after fall at home. Pt was treated with ondansetron, IVF, morphine, and started on a heparin drip. Pt will be admitted to the hospital for treatment and further evaluation of NSTEMI and left hip fracture. NSTEMI Initial troponin 54.6 with repeat 915.[address] elevations, but showing new septal infarct Pt asymptomatic: Denies chest pain/pressure, palpitations Will place on heparin drip Echocardiogram Cardiology consult Monitor on telemetry Left hip fracture S/P fall at home after lightheadedness/dizziness/whole-body tingling Fall possibly secondary to NSTEMI X-ray of hips/pelvis showed acute subcapital left femoral neck fracture Analgesics for pain management Patient not medically cleared for surgery due to NSTEMI Cardiology consult for risk stratification Orthopedics consult SOB/hypoxia Pt desatting as low as 87% on RA Likely in the setting of above: CXR negative, clear lungs on auscultation Titrate supplemental O2>92, wean as tolerated Leukocytosis Likely reactionary, no indication for bacterial infection, no sepsis Follow CBC Elevated creatinine Mildly elevated at 1.42 Pt received IVF in ED Follow BMP HTN Continue home meds GERD PPI HLD Statin Mood disorder Continue home meds DNR/DNI, verified with pt Attending:?Dr. Lagos DVT Prophylaxis: On heparin drip Pt will require a hospitalization of at least two nights for treatment of?NSTEMI and acute femoral fracture. Patient requires hospitalization for administration heparin drip, close monitoring of cardiac function, as well as eventual surgical intervention for hip fracture. <PHIL Aervalo - Last Filed: 11/29/23 16:31> Pt is a 78-year-old female with a PMH significant for?HTN, HLD, cognitive disorder, hx of TIA, hx of DVT, hx of breast cancer, GERD, and bipolar I disorder who presents to the ED for evaluation of left thigh?pain after fall at home. Pt was treated with ondansetron, IVF, morphine, and started on a heparin drip. Pt will be admitted to the hospital for treatment and further evaluation of NSTEMI and left hip fracture. NSTEMI Initial troponin 54.6 with repeat 915.[address] elevations, but showing new septal infarct Pt asymptomatic: Denies chest pain/pressure, palpitations Will place on heparin drip Echocardiogram Cardiology consult Monitor on telemetry Left hip fracture S/P fall at home after lightheadedness/dizziness/whole-body tingling Fall possibly secondary to NSTEMI X-ray of hips/pelvis showed acute subcapital left femoral neck fracture Analgesics for pain management Patient not medically cleared for surgery due to NSTEMI Cardiology consult for risk stratification Orthopedics consult SOB/hypoxia Pt desatting as low as 87% on RA Likely in the setting of above: CXR negative, clear lungs on auscultation Titrate supplemental O2>92, wean as tolerated Leukocytosis Likely reactionary, no indication for bacterial infection, no sepsis Follow CBC Elevated creatinine Mildly elevated at 1.42 Pt received IVF in ED Follow BMP HTN Continue home meds GERD PPI HLD Statin Mood disorder Continue home meds DNR/DNI, verified with pt Attending:?Dr. Lagos DVT Prophylaxis: On heparin drip Pt will require a hospitalization of at least two nights for treatment of?NSTEMI and acute femoral fracture. Patient requires hospitalization for administration heparin drip, close monitoring of cardiac function, as well as eventual surgical intervention for hip fracture. Addendum to history and physical by the advanced practice provider, PHIL Andre I interviewed and examined the patient. I discussed their presentation and management with the NANCI. I reviewed the history and physical and agree with the documentation, with the following additions and corrections: 78yo F presenting after lightheaded episode that caused her to lose her balance and fall, breaking her L femur. Also noted to have hypoxia, sinus tachycardia + Tn-I leak with lateral ST depressions though denies any chest pain. Will admit to telemetry. Requires operative repair of the femur but given NSTEMI will need Cardiology consult, heparin drip, TTE. Also will order CT angio chest to r/o PE. <Ketan Lagos MD - Last Filed: 11/29/23 17:06> Quality Stroke Does the patient have a stroke diagnosis?: No <PHIL Arevalo - Last Filed: 11/29/23 16:31> VTE Prior VTE?: No <PHIL Arevalo - Last Filed: 11/29/23 16:31> VTE Risk Level:: Medical - moderate - high <PHIL Arevalo - Last Filed: 11/29/23 16:31> VTE Device Contraindication: Treatment Not Indicated <PHIL Arevalo - Last Filed: 11/29/23 16:31> VTE Drug Contraindication: N/A - Med Ordered <PHIL Arevalo - Last Filed: 11/29/23 16:31>
[2023-11-29] MEDS: 0.9 % Sodium Chloride 500 ML IV (14:26)
[2023-11-29 14:55] LABS: Troponin-I High Sensitivity 915.4 ng/L (<3.5-17.0)
[2023-11-29] MEDS: Heparin Sodium,Porcine/1/2NS 25,000 UNIT/250 ML IV.SOLN 9.53 UNIT IVCONT (16:02)
--- NOTE | 2023-11-29 16:05 | PHA.MEDREC ---
Pharmacy Consult ? Medication Reconciliation Pharmacy has completed the medication reconciliation. Pt reports no longer taking amlodipine, aspirin, ketotifen eye drops, torsemide. Pt reports taking Divalproex 500 mg PM.
[2023-11-29] MEDS: iohexoL 350 MG/ML 100 ML INFUS..BTL 60 ML IV (19:28)
--- NOTE | 2023-11-29 19:40 | MHC.EDTECH ---
Pt stated they felt like they needed to urinate but wouldn't be able to turn at this time for a bedpan. I explained to them the uses of a Purewick, to which then they requested to use one. Purewick was placed, pt states that now they don't have to go but they don't feel uncomfortable from not voiding. Will continue to monitor.
--- NOTE | 2023-11-29 20:42 | PC.NURSE ---
this nurse verified pt weight with built in bed scale 79.4kg
[2023-11-29 21:23] LABS: Troponin-I High Sensitivity 1871.6 ng/L (<3.5-17.0)
--- NOTE | 2023-11-29 21:34 | PC.NURSE ---
This RN went with hardwood floor refinisher to transport pt upstairs. Updated excepting RN about notification of bilateral PE>
[2023-11-29 21:40] LABS: Hematocrit 41.6 % (37.0-47.0); Hemoglobin 13.2 g/dl (12.0-16.0)
--- NOTE | 2023-11-29 21:50 | P.EN_ITS ---
Event Note Date of Service: 11/29/23 Event Note: Patient's CTA of chest came back showing bilateral pulmonary emboli with evidence suggesting right sided heart strain. Will immediately draw PTT and adjust heparin drip accordingly. Additional labs showing H&H stable at 13 0.2/41.6, and troponin increasing to 1871.6. Patient clinically appears stable, only complaining of left hip pain. Denies chest pain/pressure or discomfort. Will redraw labs in the morning, and will get ultrasound of bilateral lower extr emities. Time Spent With Patient Time: Total time managing care of this patient today ____ minutes.
[2023-11-29 22:45] LABS: PTT Heparin Drip 64.7 SEC (53-77.9)
[2023-11-30] VITALS (8 sets, daily range): BP systolic 109–127; BP diastolic 50–74; PULSE 100–118; RESP 16–20; TEMP 36.6–37.5; O2SAT 93–97
[2023-11-30 04:43] LABS: Hematocrit 38.3 % (37.0-47.0); Hemoglobin 12.7 g/dl (12.0-16.0); Mean Corpuscular HGB Conc 33.2 g/dl (31.0-35.0); Mean Corpuscular Hemoglobin 30.8 pg (27.0-33.0); Mean Corpuscular Volume 92.7 fL (80.0-98.0); Mean Platelet Volume 10.5 fL (9.4-12.3); Platelet Count 149 X10*3/uL (160-400); Red Blood Count 4.13 X10*6/uL (4.20-5.50); Red Cell Distribution Width 13.3 % (11.0-16.0)
[2023-11-30 05:00] LABS: PTT Heparin Drip 79.2 SEC (53-77.9)
[2023-11-30 05:07] LABS: Troponin-I High Sensitivity 1084.9 ng/L (<3.5-17.0)
[2023-11-30] MEDS: ondansetron HCL 4 MG/2 ML VIAL IVPUSH (05:30)
[2023-11-30] MEDS: ceFAZolin Sodium/Dextrose,Iso 2 GM/50 ML PIGGYBACK IV (05:31)
[2023-11-30] MEDS: Morphine Sulfate 4 MG/ML CARTRIDGE IVPUSH ×3 (06:39→19:41)
[2023-11-30 07:38] LABS: Prothrombin Time 11.6 SEC (11.1-13.3)
[2023-11-30 08:30] LABS: Carbon Dioxide 19 mmol/L (22-29); Chloride 104 mmol/L (96-108); Sodium 139 mmol/L (135-145)
[2023-11-30 08:31] LABS: Anion Gap 16 (12-20); Blood Urea Nitrogen 26 mg/dL (9-16); Calcium 9.2 mg/dL (8.4-10.2); Creatinine Clr Calc Pharmacy 43.4; Estimated Glomerular Filt Rate 48; Glucose Random 143 mg/dL (60-115)
--- NOTE | 2023-11-30 09:17 | P.PNIM_ITS ---
Subjective Subjective Date of Service: 11/30/23 Interval History: CTA showed submassive PE hip pain controlled no chest pain some dyspnea Review of Systems Review of Systems: Yes all other systems are reviewed and are negative Physical Exam 2 Vital Signs: Vital Signs: Last Vital Signs Temp 98.1 F 11/30/23 07:17 Pulse 112 H 11/30/23 07:17 Resp 20 11/30/23 07:17 BP 127/74 11/30/23 07:17 Pulse Ox 94 11/30/23 07:17 O2 Del Method Oxymask 11/30/23 07:17 O2 Flow Rate 3 11/30/23 04:00 BMI result Body Mass Index 31.0 Gen: in no acute distress HEENT: sclera anicteric, moist mucus membranes Neck: supple Lungs: clear to auscultation bilaterally Heart: regular, tachycardic, no murmurs Abd: soft, non-tender, non-distended Ext: LLE shortened, externally rotated Skin: warm/well-perfused Neuro: alert and oriented x3, no focal findings Psych: appropriate affect ' Objective Data Active Medications Acetaminophen (Acetaminophen 325 Mg Tablet) 650 mg PO Q6H PRN PRN Reason: Pain, Mild (Pain Scale 1-3) Benzonatate (Benzonatate 100 Mg Capsule) 100 mg PO TID PRN PRN Reason: Cough Docusate Sodium (Docusate Sodium 100 Mg Capsule) 100 mg PO DAILY PRN PRN Reason: Constipation Heparin Sodium (Porcine) (Heparin Sodium,Porcine 5,000 Unit/Ml Vial) 3,200 unit 40 unit/kg (3200 unit) IVPUSH PROTOCOL BOLUS PRN; Protocol PRN Reason: 40 unit/kg - Heparin Protocol Heparin Sodium (Porcine) (Heparin Sodium,Porcine 5,000 Unit/Ml Vial) 6,400 unit 80 unit/kg (6400 unit) IVPUSH PROTOCOL BOLUS PRN; Protocol PRN Reason: 80 unit/kg - Heparin Protocol Heparin Sodium/Sodium Chloride (Heparin Sodium,Porcine/1/2ns) 25,000 unit in 250 mls @ 0 mls/hr IVCONT .Q0M LINDA; Protocol Melatonin (Melatonin 3 Mg Tablet) 6 mg PO BEDTIME PRN PRN Reason: Insomnia Morphine Sulfate (Morphine Sulfate 4 Mg/Ml Cartridge) 4 mg IVPUSH Q4H PRN; Protocol PRN Reason: Pain, Severe (Pain Scale 7-10) Last Admin: 11/30/23 06:39 Dose: 4 mg Documented By: SAMUEL Ondansetron HCl (Ondansetron Hcl 4 Mg/2 Ml Vial) 4 mg IVPUSH Q8H PRN PRN Reason: Nausea and Vomiting Last Admin: 11/30/23 05:30 Dose: 4 mg Documented By: SAMUEL Sodium Chloride (0.9 % Sodium Chloride Flush 3 Ml Syringe) [facility] Last Admin: 11/30/23 08:05 Dose: Not Given Documented By: WISAM Non-Admin Reason: IV Running Labs 11/30/23 04:20 11/30/23 04:20 Labs: Laboratory Results - last 24 hr 11/29/23 11/29/23 11/29/23 11:47 14:22 15:45 MCV 92.5 MCH 31.1 MCHC 33.7 RDW 13.4 Plt Count 162 D MPV 10.6 Immature Gran % (Auto) 0.6 H Neut % (Auto) 74.1 H Lymph % (Auto) 19.6 L [place] % (Auto) 4.6 Eos % (Auto) 0.9 Baso % (Auto) 0.2 Lymph # (Auto) 2.4 [place] # (Auto) 0.6 Eos # (Auto) 0.1 Baso # (Auto) 0.0 Abs Immat Gran (auto) 0.07 H Absolute Neuts (auto) 8.9 H Absolute Nucleated RBC 0.000 Nucleated RBC % (auto) 0.0 Hold Purple Top PT 11.0 L Cancelled INR 0.9 Cancelled aPTT Heparin Protocol Cancelled Anion Gap 14 Estim Creat Clear Calc TNP Estimated GFR 36 Random Glucose 139 H Calcium 9.6 Total Bilirubin 0.5 AST 24 ALT 21 Alkaline Phosphatase 65 Troponin I High Sens 54.6 H* 915.4 H* D Total Protein 7.2 Albumin 3.9 Influenza Type A (PCR) NEGATIVE Influenza Type B (PCR) NEGATIVE RSV RNA Qual (PCR) NEGATIVE SARS-CoV-2 RNA (RT-PCR) NEGATIVE Blood Type A Positive Antibody Screen NEGATIVE 11/29/23 11/29/23 11/30/23 20:55 22:13 04:20 MCV 92.7 MCH 30.8 MCHC 33.2 RDW 13.3 Plt Count 149 L MPV 10.5 Immature Gran % (Auto) Neut % (Auto) Lymph % (Auto) [place] % (Auto) Eos % (Auto) Baso % (Auto) Lymph # (Auto) [place] # (Auto) Eos # (Auto) Baso # (Auto) Abs Immat Gran (auto) Absolute Neuts (auto) Absolute Nucleated RBC 0.000 Nucleated RBC % (auto) 0.0 Hold Purple Top PT INR aPTT Heparin Protocol 64.7 79.2 H D Anion Gap 16 Estim Creat Clear Calc 43.4 Estimated GFR 48 Random Glucose 143 H Calcium 9.2 Total Bilirubin AST ALT Alkaline Phosphatase Troponin I High Sens 1871.6 H* D 1084.9 H* Total Protein Albumin Influenza Type A (PCR) Influenza Type B (PCR) RSV RNA Qual (PCR) SARS-CoV-2 RNA (RT-PCR) Blood Type Antibody Screen 11/30/23 07:12 MCV MCH MCHC RDW Plt Count MPV Immature Gran % (Auto) Neut % (Auto) Lymph % (Auto) [place] % (Auto) Eos % (Auto) Baso % (Auto) Lymph # (Auto) [place] # (Auto) Eos # (Auto) Baso # (Auto) Abs Immat Gran (auto) Absolute Neuts (auto) Absolute Nucleated RBC Nucleated RBC % (auto) Hold Purple Top SEE NOTE PT 11.6 INR 1.0 aPTT Heparin Protocol Anion Gap Estim Creat Clear Calc Estimated GFR Random Glucose Calcium Total Bilirubin AST ALT Alkaline Phosphatase Troponin I High Sens Total Protein Albumin Influenza Type A (PCR) Influenza Type B (PCR) RSV RNA Qual (PCR) SARS-CoV-2 RNA (RT-PCR) Blood Type Antibody Screen Assessment and Plan (1) Pulmonary embolism: Status: Acute Plan d2 78yo with HTN, HLD, hx TIA, hx DVT, hx breast CA, GERD, bipolar I disorder became lightheaded suddenly then fell on her L hip found to have L femoral neck fracture and submassive PE with R heart strain acute hypoxic resp failure due to submassive PE/R heart strain/NSTEMI - Will eventually need DOAC lifelong but for now will need high-dose heparin IV infusion. Due to anticoagulation interruption for femur surgery, will consult Vasc Surg for IVC filter placement. TTE in AM. Cardiology consulted. Pulm + Heme consults. Wean O2 as tolerated. L hip fx - High-risk for operative repair; Cardiology consulted as above. STEFANI/CKD3 - SCr at baseline after IV fluids; hold lisinopril GERD - PPI HTN - hold lisinopril + furosemide; avoid intraoperative hypotension. HLD - statin bipolar disorder - valproate, IM depot risperidone dispo - TBD In my clinical judgment, the patient requires continued inpatient hospitalization for the following reasons: IV heparin, operative repair Total time managing care of this patient today: 50 minutes. Quality Stroke Does the patient have a stroke diagnosis?: No VTE Prior VTE?: No VTE Risk Level:: Medical - moderate - high VTE Device Contraindication: Treatment Not Indicated VTE Drug Contraindication: N/A - Med Ordered
--- NOTE | 2023-11-30 09:21 | P.EN_ITS ---
Event Note Date of Service: 11/30/23 Event Note: Spoke with Sister and HCP to discuss patient's femoral neck fx. I discussed the case with Dr. Doran and explained the extent of the injury with Chasity Fall, sister and HCP, and options available which include surgical intervention. I explained the procedure in detail along with the length of recovery and rehab course. I explained the risk, benefits and alternatives. Risk including, but not limited to infection, blood clots, bleeding, non union or malunion and n erve/tissue damage to surrounding areas. I answered all their questions and with their understanding they have consented to move forward with Operative Fixation of left hip. The patient is pending cardiology clearance and optimization, a date and time will be decided after medical clearance has been obtained. Time Spent With Patient Time: Total time managing care of this patient today ____ minutes.
[2023-11-30] MEDS: Heparin Sodium,Porcine/1/2NS 25,000 UNIT/250 ML IV.SOLN 7.94 UNIT IVCONT (10:21)
--- NOTE | 2023-11-30 10:45 | P.CONCA_ITS ---
History of Present Illness History of Present Illness Date of Service: 11/30/23 Requesting physician: Ketan Lagos Consult reason: pre-op evaluation and other (Acute pulmonary embolism) Chief complaint: NSTEMI, hip fracture Narrative: I was consulted to see Jing in cardiology consultation today as she came with near-syncope and subsequently diagnose with submassive pulmonary embolism. Patient says she felt lightheaded and fell strong but that go throughout her body and then she fell down as she can control self and then had subsequent left hip/thigh pain which was very severe. She says she had not lose consciousness but low lost her balance. She has had history of fall 2 years ago and since then she has been very minimally active. She does have history of DVT although she said this was many years ago after travel and she was not put on oral anticoagulation as per her. She also has history of hypertension, hyperlipidemia no other heart issues, bipolar disorder, memory impairment prior history of breast cancer. Patient currently is feeling well. When she came in she was noted to have a creatinine up to 1.42 with initial troponin of 54.6 and subsequent troponin of 915 and then 3rd troponin of 1871, for troponin downtrending to 1084. No BNP was done. She denied any chest pain. Denied any strong palpitations. Denies any shortness of breath. Subsequent workup with CTA of chest shows bilateral pulmonary embolism. Has evidence of right heart strain. Patient does not recall prior having pulmonary embolism. Currently feeling okay but having left hip pain. Has remained hemodynamically stable since. No arrhythmias noted. Oxygen 94%. Sinus tachycardia noted. EKG is sinus tachycardia with anterior T-wave inversion which could be RV strain with S1-T3 pattern with incomplete right bundle-branch block Review of Systems 2 Constitutional: Constitutional: Reports weakness Eyes: Eyes: Reports no additional eye complaints Cardiovascular: Cardiovascular: Denies chest pain, Denies rapid heart rate, Reports lightheadedness, Denies Loss of Consciousness and Denies dyspnea Respiratory: Respiratory: Reports no additional respiratory complaints and Denies dyspnea Gastrointestinal: Gastrointestinal: Reports no additional gastrointestinal complaints Genitourinary: Genitourinary: Reports no additional female genitourinary complaints Musculoskeletal: Musculoskeletal: Reports other (Left hip pain) Integumentary/Breasts: Skin/Breast: Reports system reviewed and no additional complaints, except as docu Neurologic: Reports weakness PMFSH Past Medical History Medical History Chronic low back pain Rash of neck Hearing impairment Generalized muscle weakness Cognitive disorder TIA (transient ischemic attack) Tremors of nervous system Gait disorder DVT (deep venous thrombosis) Obesity Hyperlipidemia HTN (hypertension) GERD (gastroesophageal reflux disease) Breast cancer Bipolar 1 disorder Family History Family History Brother Alcohol abuse Polio Substance use disorder Brother Cancer Sister Stroke Mental health disorder Mother HTN (hypertension) Sister Cancer Surgical History Surgical History H/O mastectomy Social History Social History Household Members: None Housing: Condominium Do you presently have visiting nurse or other home services: Yes Unable to assess alcohol history related to: Refusing to respond Alcohol intake: current Alcohol type: wine Patient Tobacco Use Status: Former Tobacco user Quit Date: 11 years ago Tobacco use type: Smokeless Tobacco Years Smoked: 30 e-Cigarette/Vaping Use: Never Used Second Hand Smoke Exposure: No Advance Directives Date on File: 05/01/22 service: No Sexual orientation: Straight/Heterosexual Cognitive needs: No Hearing needs: No Vision needs: Yes Meds Allergies Allergy/AdvReac Type Severity Reaction Status Date / Time No Known Allergies Allergy Verified 11/29/23 19:21 [No Known Allergies*] Active Medications: Current Medications Acetaminophen (Acetaminophen 325 Mg Tablet) 650 mg PO Q6H PRN PRN Reason: Pain, Mild (Pain Scale 1-3) Atorvastatin Calcium (Atorvastatin Calcium 10 Mg Tablet) 10 mg PO BEDTIME LINDA Benzonatate (Benzonatate 100 Mg Capsule) 100 mg PO TID PRN PRN Reason: Cough Divalproex Sodium (Divalproex Sodium 500 Mg Tablet.Dr) 500 mg PO BEDTIME LINDA Docusate Sodium (Docusate Sodium 100 Mg Capsule) 100 mg PO DAILY PRN PRN Reason: Constipation Docusate Sodium (Docusate Sodium 100 Mg Capsule) 100 mg PO DAILY LINDA Folic Acid (Folic Acid 1 Mg Tablet) 1 mg PO DAILY LINDA Heparin Sodium (Porcine) (Heparin Sodium,Porcine 5,000 Unit/Ml Vial) 3,200 unit 40 unit/kg (3200 unit) IVPUSH PROTOCOL BOLUS PRN; Protocol PRN Reason: 40 unit/kg - Heparin Protocol Heparin Sodium (Porcine) (Heparin Sodium,Porcine 5,000 Unit/Ml Vial) 6,400 unit 80 unit/kg (6400 unit) IVPUSH PROTOCOL BOLUS PRN; Protocol PRN Reason: 80 unit/kg - Heparin Protocol Heparin Sodium/Sodium Chloride (Heparin Sodium,Porcine/1/2ns) 25,000 unit in 250 mls @ 0 mls/hr IVCONT .Q0M LINDA; Protocol Last Admin: 11/30/23 10:21 Dose: 10 units/kg/hr, 7.94 mls/hr Melatonin (Melatonin 3 Mg Tablet) 6 mg PO BEDTIME PRN PRN Reason: Insomnia Morphine Sulfate (Morphine Sulfate 4 Mg/Ml Cartridge) 4 mg IVPUSH Q4H PRN; Protocol PRN Reason: Pain, Severe (Pain Scale 7-10) Last Admin: 11/30/23 10:28 Dose: 4 mg Omeprazole (Omeprazole 20 Mg Capsule.Dr) 20 mg PO BEDTIME LINDA Ondansetron HCl (Ondansetron Hcl 4 Mg/2 Ml Vial) 4 mg IVPUSH Q8H PRN PRN Reason: Nausea and Vomiting Last Admin: 11/30/23 05:30 Dose: 4 mg Risperidone (Risperidone Microspheres 25 Mg/2 Ml Syringe) 25 mg IM Q14D [facility] Sodium Chloride (0.9 % Sodium Chloride Flush 3 Ml Syringe) [facility] Last Admin: 11/30/23 08:05 Dose: Not Given Home Medications ?Medication ?Instructions ?Recorded ?Confirmed ?Last Taken ?Type folic acid 1 mg tablet 1 mg PO DAILY 09/30/22 11/29/23 11/28/23 History risperidone microspheres 25 mg/2 25 mg IM Q14D 09/30/22 11/29/23 11/27/23 History mL intramuscular susp,ext release (Risperdal Consta) nortriptyline 10 mg capsule 10 mg PO BEDTIME 08/15/23 11/29/23 11/28/23 History divalproex 500 mg tablet,delayed 500 mg PO BEDTIME 11/29/23 11/29/23 11/28/23 History release docusate sodium 100 mg capsule 100 mg PO DAILY 11/29/23 11/29/23 11/28/23 History furosemide 20 mg tablet 20 mg PO DAILY 11/29/23 11/29/23 11/28/23 History lisinopril 5 mg tablet 5 mg PO DAILY 11/29/23 11/29/23 11/28/23 History Physical Exam 2 Vital Signs: Vital Signs: Last Vital Signs Temp 98.1 F 11/30/23 07:17 Pulse 112 H 11/30/23 07:17 Resp 20 11/30/23 07:17 BP 127/74 11/30/23 07:17 Pulse Ox 94 11/30/23 07:17 O2 Del Method Oxymask 11/30/23 07:17 O2 Flow Rate 3 11/30/23 04:00 BMI result Body Mass Index 31.0 Const: General: cooperative, comfortable, no acute distress, alert and awake Nutritional Appearance: overweight Orientation/consciousness: patient oriented x3 HEENT: Head: Yes normocephalic and Yes atraumatic Neck: Neck: Yes trachea midline and Yes JVD Resp: Effort & Inspection: decreased respiratory effort Auscultation: clear to auscultation bilaterally Cardio: Jugular venous distension: JVD Rate: tachycardic Rhythm: regular rhythm Heart sounds: S1 normal heart sound present, S2 normal heart sound present, no click, no gallops, no murmurs and no rubs GI: Auscultation: normal bowel sounds Neuro: General: patient oriented x3 and no focal motor deficits Extrem: General: Yes no clubbing, cyanosis or edema Objective Labs and Meds 11/30/23 04:20 11/30/23 04:20 Lab results: Laboratory Results - last 24 hr 11/29/23 11/29/23 11/29/23 11:47 14:22 15:45 WBC 12.0 H RBC 4.11 L Hgb 12.8 Hct 38.0 MCV 92.5 MCH 31.1 MCHC 33.7 RDW 13.4 Plt Count 162 D MPV 10.6 Immature Gran % (Auto) 0.6 H Neut % (Auto) 74.1 H Lymph % (Auto) 19.6 L [place] % (Auto) 4.6 Eos % (Auto) 0.9 Baso % (Auto) 0.2 Lymph # (Auto) 2.4 [place] # (Auto) 0.6 Eos # (Auto) 0.1 Baso # (Auto) 0.0 Abs Immat Gran (auto) 0.07 H Absolute Neuts (auto) 8.9 H Absolute Nucleated RBC 0.000 Nucleated RBC % (auto) 0.0 Hold Purple Top PT 11.0 L Cancelled INR 0.9 Cancelled aPTT Heparin Protocol Cancelled Sodium 141 Potassium 4.3 Chloride 106 Carbon Dioxide 25 Anion Gap 14 BUN 33 H Creatinine 1.42 H Estim Creat Clear Calc TNP Estimated GFR 36 Random Glucose 139 H Calcium 9.6 Total Bilirubin 0.5 AST 24 ALT 21 Alkaline Phosphatase 65 Troponin I High Sens 54.6 H* 915.4 H* D Total Protein 7.2 Albumin 3.9 Influenza Type A (PCR) NEGATIVE Influenza Type B (PCR) NEGATIVE RSV RNA Qual (PCR) NEGATIVE SARS-CoV-2 RNA (RT-PCR) NEGATIVE Blood Type A Positive Antibody Screen NEGATIVE 11/29/23 11/29/23 11/30/23 20:55 22:13 04:20 WBC 11.0 H RBC 4.13 L Hgb 13.2 12.7 Hct 41.6 38.3 MCV 92.7 MCH 30.8 MCHC 33.2 RDW 13.3 Plt Count 149 L MPV 10.5 Immature Gran % (Auto) Neut % (Auto) Lymph % (Auto) [place] % (Auto) Eos % (Auto) Baso % (Auto) Lymph # (Auto) [place] # (Auto) Eos # (Auto) Baso # (Auto) Abs Immat Gran (auto) Absolute Neuts (auto) Absolute Nucleated RBC 0.000 Nucleated RBC % (auto) 0.0 Hold Purple Top PT INR aPTT Heparin Protocol 64.7 79.2 H D Sodium 139 Potassium 5.0 Chloride 104 Carbon Dioxide 19 L Anion Gap 16 BUN 26 H Creatinine 1.10 Estim Creat Clear Calc 43.4 Estimated GFR 48 Random Glucose 143 H Calcium 9.2 Total Bilirubin AST ALT Alkaline Phosphatase Troponin I High Sens 1871.6 H* D 1084.9 H* Total Protein Albumin Influenza Type A (PCR) Influenza Type B (PCR) RSV RNA Qual (PCR) SARS-CoV-2 RNA (RT-PCR) Blood Type Antibody Screen 11/30/23 07:12 WBC RBC Hgb Hct MCV MCH MCHC RDW Plt Count MPV Immature Gran % (Auto) Neut % (Auto) Lymph % (Auto) [place] % (Auto) Eos % (Auto) Baso % (Auto) Lymph # (Auto) [place] # (Auto) Eos # (Auto) Baso # (Auto) Abs Immat Gran (auto) Absolute Neuts (auto) Absolute Nucleated RBC Nucleated RBC % (auto) Hold Purple Top SEE NOTE PT 11.6 INR 1.0 aPTT Heparin Protocol Sodium Potassium Chloride Carbon Dioxide Anion Gap BUN Creatinine Estim Creat Clear Calc Estimated GFR Random Glucose Calcium Total Bilirubin AST ALT Alkaline Phosphatase Troponin I High Sens Total Protein Albumin Influenza Type A (PCR) Influenza Type B (PCR) RSV RNA Qual (PCR) SARS-CoV-2 RNA (RT-PCR) Blood Type Antibody Screen Imaging Radiologist's impression: Impressions Cervical Spine CT 11/29/23 12:26 IMPRESSION: Head: No acute intracranial hemorrhage. There are scattered chronic small vessel ischemic changes within the periventricular white matter. Grossly no evidence of acute territorial infarct. Cervical Spine: No acute fracture and no posttraumatic spinal subluxation. There is advanced multilevel degenerative spondylosis of the cervical spine. Canal patency is not well assessed on this examination due to inherent limitations of CT without intrathecal contrast. Head CT 11/29/23 12:27 IMPRESSION: Head: No acute intracranial hemorrhage. There are scattered chronic small vessel ischemic changes within the periventricular white matter. Grossly no evidence of acute territorial infarct. Cervical Spine: No acute fracture and no posttraumatic spinal subluxation. There is advanced multilevel degenerative spondylosis of the cervical spine. Canal patency is not well assessed on this examination due to inherent limitations of CT without intrathecal contrast. Chest X-Ray 11/29/23 12:31 IMPRESSION: 1. Clear lungs. 2. Mild asymmetric elevation of the right hemidiaphragm. Hip/Pelvis X-Ray 11/29/23 12:31 IMPRESSION: 1. Acute subcapital left femoral neck fracture. 2. 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 3. Large volume of desiccated stool in the rectum and colon. Chest CTA 11/29/23 19:28 IMPRESSION: 1. Right sided segmental and subsegmental pulmonary emboli involving the upper, mid, and lower lobes. Left-sided pulmonary emboli along the distal left main pulmonary artery with segmental and subsegmental extension in the left upper and lower lobes. 2. Mild septal bowing suggesting elements of heart strain. No reflux of contrast into the hepatic veins. 3. Small hiatal hernia. 4. Decreased hepatic attenuation suggesting hepatic steatosis. This critical result was discussed with Dr. Cy Hendrix by telephone on 11/29/2023 8:47 PM and it was ascertained that the content and urgency of the report was understood at the time of direct communication. Assessment and Plan (1) Preop cardiovascular exam: Status: Acute Preoperative cardiovascular risk stratification in this elderly woman who fell down after near syncopal symptoms found to have submassive PE with evidence of myocardial necrosis as well as RV strain on CTA of the chest. She unfortunately has left hip fracture. She requires repair urgently for the same. She is high risk for perioperative cardiovascular morbidity mortality given her acute pulmonary embolism. I would protect from further pulmonary embolism by a temporary IVC filter placement given that she will have interruption in her anticoagulation therapy during the surgery.. Echocardiogram should be requested. Continue IV heparin. Sinus tachycardia related to acute RV strain and pulmonary embolism. Continue supportive care. Will gently hydrate her. Close attention to hemodynamics during surgery and avoiding agents that cause V no dilation. Aggressive replacement of blood loss as well as fluids. Will follow with you Procedures Date of Service Date of Service: 11/30/23
[2023-11-30 11:22] LABS: PTT Heparin Drip 41.2 SEC (53-77.9)
[2023-11-30] MEDS: Heparin Sodium,Porcine 5,000 UNIT/ML VIAL 3200 UNIT IVPUSH (11:54)
[2023-11-30 13:45] LABS: Appearance Urine Clear; Color Urine Yellow; Glucose Urine UA Negative (Negative); Leukocyte Esterase Urine Negative (Negative); Nitrite Urine Negative (Negative); PH 6.5 (5.0-9.0); Specific Gravity - Urine >= 1.030 (1.005-1.025); UMIC TRIGGER UACC YES; Urine Blood Small (1+) (Negative); Urine Ketones Trace mg/dL (Negative); Urine Protein Trace mg/dL (Neg-Trace)
[2023-11-30 13:59] LABS: Bacteria Urine None Seen (None Seen); Hyaline Casts Urine 0-2 /LPF (0-2); Squamous Epithelial Cell Urine 0-2 /HPF (0-2); WBC Urine 0-5 /HPF (0-5)
--- NOTE | 2023-11-30 15:38 | MHC.CM.PN ---
CM MET WITH PT AND HER SISTER/HCP, VALENTINA, AT BEDSIDE PT LIVES ALONE AND HAS MET [facility], AND A TIMBER HAND/MOW FROM [facility] PT USES A ROLLATOR AT BASELINE PT HAS A MOLST AND HCP ON FILE VALENTINA IS THE ONLY CONTACT, THE ALTERNATE HCP HAS PASSED. PCP: AMEENA HENRY DELIVERED DCP STR PER DISCUSSION, REFERRALS WERE MADE TO [facility] PT WILL NEED BLS TRANSPORT PLEASE UPDATE VALENTINA ANYTIME IT IS APPROPRIATE, SHE IS CONCERNED ABOUT NOT BEING CONSULTED PRIOR TO DC
[2023-11-30 18:52] LABS: PTT Heparin Drip 88.6 SEC (53-77.9)
[2023-11-30] MEDS: Atorvastatin Calcium 10 MG TABLET PO (19:41)
[2023-11-30] MEDS: Divalproex Sodium 500 MG TABLET.DR PO (19:41)
[2023-11-30] MEDS: Omeprazole 20 MG CAPSULE.DR PO (19:41)
--- NOTE | 2023-11-30 20:44 | P.CONPL_ITS ---
History of Present Illness History of Present Illness Consult date: 11/30/23 Chief complaint: NSTEMI, hip fracture Narrative: This is an in patient pulmonary consultation. The patient is a 78-year-old female with a PMH significant for?HTN, HLD, cognitive disorder, hx of TIA, hx of DVT, hx of breast cancer, GERD, and bipolar I disorder who presents to the ED for evaluation of left thigh?pain after fall at home. Patient reports she was walking into her kitchen this morning when she had a ?spell that came over me from head to toe?. Describes this as a ?tingling? and ?ricks? over her entire body that caused her to lose her balance and she fell to the floor, landing on her left hip. Denies head strike or LOC. States has not had an episode like this before. After fall, patient had significant pain in her left hip extending down her left thigh. Reports noticing she became short of breath shortly after fall. Was able to call EMS who brought her to the emergency room for further evaluation. No chest pain/pressure, palpitations. In the ED the EKG demonstrated sinus tachycardia with occasional PVC with nonspecific ST and T- wave abnormalities. Repeat EKG showed sinus tachycardia of 158 with septal infarct now present. Xray noted a left hip fracture. Her CTA personally reviewed by me demonstrating bilateral PE and RV strain. +Trop I consiistent with a submassive PE With evidence of a demand myocardial infarction. The patient is not a candidate for thrombolytics due to her femur fracture. Lower extremity dopplers negative for DVT. The patient was placed on heparin drip. She was evaluated by Orthopedic surgery and recommended Surgical correction for the femur fracture. Currently the patient is unstable to undergo surgery. Review of Systems 2 Constitutional: Constitutional: Reports weakness Eyes: Eyes: Reports no additional eye complaints Cardiovascular: Cardiovascular: Denies chest pain, Denies rapid heart rate, Reports lightheadedness, Denies Loss of Consciousness and Denies dyspnea Respiratory: Respiratory: Reports no additional respiratory complaints and Denies dyspnea Gastrointestinal: Gastrointestinal: Reports no additional gastrointestinal complaints Genitourinary: Genitourinary: Reports no additional female genitourinary complaints Musculoskeletal: Musculoskeletal: Reports other (Left hip pain) Integumentary/Breasts: Skin/Breast: Reports system reviewed and no additional complaints, except as docu Neurologic: Reports weakness PMFSH Past Medical History Medical History Chronic low back pain Rash of neck Hearing impairment Generalized muscle weakness Cognitive disorder TIA (transient ischemic attack) Tremors of nervous system Gait disorder DVT (deep venous thrombosis) Obesity Hyperlipidemia HTN (hypertension) GERD (gastroesophageal reflux disease) Breast cancer Bipolar 1 disorder Family History Family History Brother Alcohol abuse Polio Substance use disorder Brother Cancer Sister Stroke Mental health disorder Mother HTN (hypertension) Sister Cancer Surgical History Surgical History H/O mastectomy Social History Social History Household Members: None Housing: Condominium Do you presently have visiting nurse or other home services: Yes Unable to assess alcohol history related to: Refusing to respond Alcohol intake: current Alcohol type: wine Patient Tobacco Use Status: Former Tobacco user Quit Date: 11 years ago Tobacco use type: Smokeless Tobacco Years Smoked: 30 e-Cigarette/Vaping Use: Never Used Second Hand Smoke Exposure: No Advance Directives Date on File: 05/01/22 service: No Sexual orientation: Straight/Heterosexual Cognitive needs: No Hearing needs: No Vision needs: Yes Meds Allergies Allergy/AdvReac Type Severity Reaction Status Date / Time No Known Allergies Allergy Verified 11/29/23 19:21 [No Known Allergies*] Active Medications: Current Medications Acetaminophen (Acetaminophen 325 Mg Tablet) 650 mg PO Q6H PRN PRN Reason: Pain, Mild (Pain Scale 1-3) Atorvastatin Calcium (Atorvastatin Calcium 10 Mg Tablet) 10 mg PO BEDTIME [facility] Last Admin: 11/30/23 19:41 Dose: 10 mg Benzonatate (Benzonatate 100 Mg Capsule) 100 mg PO TID PRN PRN Reason: Cough Divalproex Sodium (Divalproex Sodium 500 Mg Tablet.Dr) 500 mg PO BEDTIME [facility] Last Admin: 11/30/23 19:41 Dose: 500 mg Docusate Sodium (Docusate Sodium 100 Mg Capsule) 100 mg PO DAILY PRN PRN Reason: Constipation Docusate Sodium (Docusate Sodium 100 Mg Capsule) 100 mg PO DAILY [facility] Folic Acid (Folic Acid 1 Mg Tablet) 1 mg PO DAILY [facility] Heparin Sodium (Porcine) (Heparin Sodium,Porcine 5,000 Unit/Ml Vial) 3,200 unit 40 unit/kg (3200 unit) IVPUSH PROTOCOL BOLUS PRN; Protocol PRN Reason: 40 unit/kg - Heparin Protocol Last Admin: 11/30/23 11:54 Dose: 3,200 unit Heparin Sodium (Porcine) (Heparin Sodium,Porcine 5,000 Unit/Ml Vial) 6,400 unit 80 unit/kg (6400 unit) IVPUSH PROTOCOL BOLUS PRN; Protocol PRN Reason: 80 unit/kg - Heparin Protocol Heparin Sodium/Sodium Chloride (Heparin Sodium,Porcine/1/2ns) 25,000 unit in 250 mls @ 0 mls/hr IVCONT .Q0M [facility]; Protocol Last Titration: 11/30/23 18:56 Dose: 10 units/kg/hr, 7.94 mls/hr Melatonin (Melatonin 3 Mg Tablet) 6 mg PO BEDTIME PRN PRN Reason: Insomnia Morphine Sulfate (Morphine Sulfate 4 Mg/Ml Cartridge) 4 mg IVPUSH Q4H PRN; Protocol PRN Reason: Pain, Severe (Pain Scale 7-10) Last Admin: 11/30/23 19:41 Dose: 4 mg Omeprazole (Omeprazole 20 Mg Capsule.Dr) 20 mg PO BEDTIME [facility] Last Admin: 11/30/23 19:41 Dose: 20 mg Ondansetron HCl (Ondansetron Hcl 4 Mg/2 Ml Vial) 4 mg IVPUSH Q8H PRN PRN Reason: Nausea and Vomiting Last Admin: 11/30/23 05:30 Dose: 4 mg Risperidone (Risperidone Microspheres 25 Mg/2 Ml Syringe) 25 mg IM Q14D [facility] Sodium Chloride (0.9 % Sodium Chloride Flush 3 Ml Syringe) 3 ml IVFLUSH QSHIFT [facility] Last Admin: 11/30/23 16:14 Dose: Not Given Home Medications ?Medication ?Instructions ?Recorded ?Confirmed ?Last Taken ?Type folic acid 1 mg tablet 1 mg PO DAILY 09/30/22 11/29/23 11/28/23 History risperidone microspheres 25 mg/2 25 mg IM Q14D 09/30/22 11/29/23 11/27/23 History mL intramuscular susp,ext release (Risperdal Consta) nortriptyline 10 mg capsule 10 mg PO BEDTIME 08/15/23 11/29/23 11/28/23 History divalproex 500 mg tablet,delayed 500 mg PO BEDTIME 11/29/23 11/29/23 11/28/23 History release docusate sodium 100 mg capsule 100 mg PO DAILY 11/29/23 11/29/23 11/28/23 History furosemide 20 mg tablet 20 mg PO DAILY 11/29/23 11/29/23 11/28/23 History lisinopril 5 mg tablet 5 mg PO DAILY 11/29/23 11/29/23 11/28/23 History Physical Exam 2 Vital Signs: Vital Signs: Last Vital Signs Temp 99 F 11/30/23 19:42 Pulse 118 H 11/30/23 19:42 Resp 17 11/30/23 19:42 BP 121/56 L 11/30/23 19:42 Pulse Ox 97 11/30/23 19:42 O2 Del Method Nasal Cannula 11/30/23 19:42 O2 Flow Rate 3 11/30/23 19:42 Oxygen Flow Rate 3 11/30/23 07:00 BMI result Body Mass Index 31.0 Const: General: cooperative, comfortable, no acute distress, alert and awake Nutritional Appearance: overweight Orientation/consciousness: patient oriented x3 HEENT: Head: Yes normocephalic and Yes atraumatic Neck: Neck: Yes trachea midline and Yes JVD Resp: Effort & Inspection: decreased respiratory effort Auscultation: clear to auscultation bilaterally Cardio: Jugular venous distension: JVD Rate: tachycardic Rhythm: regular rhythm Heart sounds: S1 normal heart sound present, S2 normal heart sound present, no murmurs and no rubs GI: Auscultation: normal bowel sounds Neuro: General: patient oriented x3 and no focal motor deficits Extrem: General: Yes no clubbing, cyanosis or edema Results Laboratory Findings 11/30/23 04:20 11/30/23 04:20 ABG, PT/INR, D-dimer: PT/INR, D-dimer PT 11.6 SEC (11.1-13.3) 11/30/23 07:12 INR 1.0 (0.9-1.1) 11/30/23 07:12 Abnormal lab findings: Abnormal Labs 11/29/23 11/29/23 11/29/23 11:47 14:22 20:55 WBC 12.0 H RBC 4.11 L Plt Count Immature Gran % (Auto) 0.6 H Neut % (Auto) 74.1 H Lymph % (Auto) 19.6 L Abs Immat Gran (auto) 0.07 H Absolute Neuts (auto) 8.9 H PT 11.0 L aPTT Heparin Protocol Carbon Dioxide BUN 33 H Creatinine 1.42 H Random Glucose 139 H Troponin I High Sens 54.6 H* 915.4 H* D 1871.6 H* D Ur Specific [place] Urine Blood Urine RBC 11/30/23 11/30/23 11/30/23 04:20 11:07 13:00 WBC 11.0 H RBC 4.13 L Plt Count 149 L Immature Gran % (Auto) Neut % (Auto) Lymph % (Auto) Abs Immat Gran (auto) Absolute Neuts (auto) PT aPTT Heparin Protocol 79.2 H D 41.2 L D Carbon Dioxide 19 L BUN 26 H Creatinine Random Glucose 143 H Troponin I High Sens 1084.9 H* Ur Specific [place] >= 1.030 H Urine Blood Small (1+) H Urine RBC 3-5 H 11/30/23 18:07 WBC RBC Plt Count Immature Gran % (Auto) Neut % (Auto) Lymph % (Auto) Abs Immat Gran (auto) Absolute Neuts (auto) PT aPTT Heparin Protocol 88.6 H D Carbon Dioxide BUN Creatinine Random Glucose Troponin I High Sens Ur Specific [place] Urine Blood Urine RBC Assessment and Plan (1) Pulmonary embolism: Qualifiers: Pulmonary embolism type: other Chronicity: acute Acute cor pulmonale presence: with acute cor pulmonale Qualified Code(s): I26.09 - Other pulmonary embolism with acute cor pulmonale Status: Acute (2) NSTEMI (non-ST elevated myocardial infarction): Status: Acute (3) Fracture of left femur: Qualifiers: Encounter type: initial encounter Femur location: unspecified portion of femur Fracture type: closed Fracture morphology: unspecified fracture morphology Qualified Code(s): S72.92XA - Unspecified fracture of left femur, initial encounter for closed fracture Status: Acute (4) Pre-op chest exam: Status: Acute Plan The patient has a submassive pulmonary embolism and at this time she continues be tachycardic with elevated cardiac enzymes with significant physiological stress. Currently on heparin drip to prevent further propagation of clot. The patient does have a hip fracture Which occurred during a presyncopal event due to her significant clot burden. Based on her degree of disease the patient is at very high risk for perioperative pulmonary complications with any surgical intervention which include; , acute respiratory failure, worsening obstructive shock, atelectasis, pneumonia. recommendations: Continue heparin drip as we continue to stabilize her hemodynamics status. indeed, the thromboembolic disease is not stable right now and therefore further hemodynamic worsening can still occur. Not a candidate for systemic TPA due to her fracture. Consider catheter based tPA if her hemodynamics status worsens due to her Thrombo-embolic disease. awaiting echocardiogram Awaiting IVC filter placement unless the patient has thrombosis of the IVC The patient ultimately needs to have the femur fracture address. I would delay surgery at this time in view of the patient's risk for with anesthesia and surgery in her current state. Understanding though that surgery may be the only option for her to intervene on the femur fracture, close monitoring and discussion with the medical and surgical teams in order to find the ideal time for her to undergo a potential surgical intervention. Procedures Date of Service Date of Service: 11/30/23
[2023-12-01] VITALS (7 sets, daily range): BP systolic 99–131; BP diastolic 51–66; PULSE 107–123; RESP 16–18; TEMP 36.2–37.2; O2SAT 92–96
[2023-12-01 01:25] LABS: PTT Heparin Drip 49.5 SEC (53-77.9)
[2023-12-01] MEDS: Heparin Sodium,Porcine 5,000 UNIT/ML VIAL 3200 UNIT IVPUSH (01:43)
--- NOTE | 2023-12-01 07:00 | CA_ITS ---
Transthoracic Echocardiogram Patient (Last, First, Middle): Jing Bautista, Gender: Female Date of : 1945 Age: 78 Procedure Date: 12/01/2023 Procedure Type: Transthoracic Echocardiogram Location: [facility] [place] Height: 160.02 cm Weight: 79.38 kg BSA: 1.83 m2 Heart Rate: 118 bpm BP: 110 / 51 mmHg Emergency Medical Service Manager: SB Referring MD: Vanessa VILLARREAL Symptoms: NSTEMI Study Quality: Technically Difficult/breast implants ECG Rhythm: Tachycardia Conclusions: - Normal left ventricular size and systolic function. There is mildly increased left ventricular wall thickness. The visually estimated ejection fraction is between 60-65%. - Right ventricular is poorly visualized. - There is no evidence of pericardial effusion. Findings Procedure Information Contrast agent, definity, is being given per protocol without apparent complications. The quality of the study was apical images are suboptimal for definitive comment. Left Ventricle Normal left ventricular size and systolic function. There is mildly increased left ventricular wall thickness. The visually estimated ejection fraction is between 60-65%. There is no evidence of regional wall motion abnormalities. Diastolic function is indeterminate on the basis of available data. There is moderate septal asymmetric hypertrophy. Right Ventricle Right ventricular is poorly visualized. Atria The left atrium was not well visualized. Aortic Valve Normal aortic valve structure and function. There is no aortic valve stenosis. There is no aortic valve regurgitation. Mitral Valve Likely normal mitral valve structure and function. There is no mitral valve regurgitation. There is no mitral valve stenosis. Pulmonic Valve The pulmonic valve is likely normal. Tricuspid Valve Normal tricuspid valve structure. There is no tricuspid valve regurgitation. Tricuspid regurgitation envelope is inadequate for calculation of right ventricular systolic pressure. Normal right atrial pressure. Great Vessels All visible segments of the aorta are normal in size. Venous The inferior vena cava is normal in size and collapses greater than 50% with inspiration. Pericardium/Pleural There is no evidence of pericardial effusion. Prior Study Comparison No prior study available for comparison. Measurements 2D Linear Measurements IVSd: 0.87 0.6-0.9/0.6-1.0 cm LVIDd: 4.02 3.9-5.3/4.2-5.9 cm LVIDd Index: 2.20 2.4-3.2/2.2-3.1 cm/m2 LVIDs: 2.51 2.0-3.6 cm LVPWd: 0.83 0.7-1.1 cm LA Diam: 2.70 2.7-3.8/3.0-4.0 cm LAIDs Index: 1.48 1.5-2.3 cm/m2 LV Mass: 126.87 67-162/88-224 g LV Mass Index: 69.33 43-95/49-115 g/m2 LVOT Diam: 2.10 3.0+(-)1.3 cm LVOT LVOT Diam: 2.10 LVOT Area: 3.46 Right Ventricle TVS' Kenneth: 11.10 Tricuspid Valve RA Press: 3.00 Great Vessels Aorta Sinus of Valsalva: 3.10 2.0-3.5 cm Ao Asc: 3.10 2.1-3.4 cm Pulmonary Valve PV Pk Kenneth: 0.65 Peak PV Grad: 2.00 Updated in Other Vendor System with Status of Final Leif Jimenez MD electronically signed on 12/01/2023 11:02:28 AM with status of Final
--- NOTE | 2023-12-01 07:23 | PC.NURSE ---
This RN verified with previous RN that Heparin gtt is running at 12units/kg/hr
--- NOTE | 2023-12-01 07:24 | P.HPOP_ITS ---
History of Present Illness History of Present Illness Date of Service: 12/01/23 Chief complaint: NSTEMI, hip fracture Narrative: Jing Bautista is a 78 year old female with history HTN, TIA, cognitive disorder, DVT, HLD, GERD, bipolar 1 disorder, breast cancer presenting to the emergency department with complaint of left thigh pain after a fall at home. Patient reports that she was walking into her kitchen when she felt lightheaded and fell onto her left side. She states that she lives alone and does not use any assistive devices to ambulate. Denies head strike or loss of consciousness. She has not anticoagulated. Denies other complaints. After further workup in the ED the patient was found to have an NSTEMI as well as bilateral PE. Cardiology and Pulmonology were consulted. Patient was placed on IV heparin. She is pending IVC filter this morning. After filter is placed an echo will be obtained. Review of Systems 2 Review of Systems: Yes all other systems are reviewed and are negative PMFSH Past Medical History Medical History Chronic low back pain Rash of neck Hearing impairment Generalized muscle weakness Cognitive disorder TIA (transient ischemic attack) Tremors of nervous system Gait disorder DVT (deep venous thrombosis) Obesity Hyperlipidemia HTN (hypertension) GERD (gastroesophageal reflux disease) Breast cancer Bipolar 1 disorder Family History Family History Brother Alcohol abuse Polio Substance use disorder Brother Cancer Sister Stroke Mental health disorder Mother HTN (hypertension) Sister Cancer Surgical History Surgical History H/O mastectomy Social History Social History Household Members: None Housing: Condominium Do you presently have visiting nurse or other home services: Yes Unable to assess alcohol history related to: Refusing to respond Alcohol intake: current Alcohol type: wine Patient Tobacco Use Status: Former Tobacco user Quit Date: 11 years ago Tobacco use type: Smokeless Tobacco Years Smoked: 30 e-Cigarette/Vaping Use: Never Used Second Hand Smoke Exposure: No Advance Directives Date on File: 05/01/22 service: No Sexual orientation: Straight/Heterosexual Cognitive needs: No Hearing needs: No Vision needs: Yes Meds Allergies Allergy/AdvReac Type Severity Reaction Status Date / Time No Known Allergies Allergy Verified 11/29/23 19:21 [No Known Allergies*] Active Medications: Current Medications Acetaminophen (Acetaminophen 325 Mg Tablet) 650 mg PO Q6H PRN PRN Reason: Pain, Mild (Pain Scale 1-3) Atorvastatin Calcium (Atorvastatin Calcium 10 Mg Tablet) 10 mg PO BEDTIME [facility] Last Admin: 11/30/23 19:41 Dose: 10 mg Benzonatate (Benzonatate 100 Mg Capsule) 100 mg PO TID PRN PRN Reason: Cough Divalproex Sodium (Divalproex Sodium 500 Mg Tablet.) 500 mg PO BEDTIME [facility] Last Admin: 11/30/23 19:41 Dose: 500 mg Docusate Sodium (Docusate Sodium 100 Mg Capsule) 100 mg PO DAILY PRN PRN Reason: Constipation Docusate Sodium (Docusate Sodium 100 Mg Capsule) 100 mg PO DAILY [facility] Folic Acid (Folic Acid 1 Mg Tablet) 1 mg PO DAILY [facility] Heparin Sodium (Porcine) (Heparin Sodium,Porcine 5,000 Unit/Ml Vial) 3,200 unit 40 unit/kg (3200 unit) IVPUSH PROTOCOL BOLUS PRN; Protocol PRN Reason: 40 unit/kg - Heparin Protocol Last Admin: 12/01/23 01:43 Dose: 3,200 unit Heparin Sodium (Porcine) (Heparin Sodium,Porcine 5,000 Unit/Ml Vial) 6,400 unit 80 unit/kg (6400 unit) IVPUSH PROTOCOL BOLUS PRN; Protocol PRN Reason: 80 unit/kg - Heparin Protocol Heparin Sodium/Sodium Chloride (Heparin Sodium,Porcine/1/2ns) 25,000 unit in 250 mls @ 0 mls/hr IVCONT .Q0M [facility]; Protocol Last Titration: 12/01/23 01:46 Dose: 12 units/kg/hr, 9.53 mls/hr Melatonin (Melatonin 3 Mg Tablet) 6 mg PO BEDTIME PRN PRN Reason: Insomnia Morphine Sulfate (Morphine Sulfate 4 Mg/Ml Cartridge) 4 mg IVPUSH Q4H PRN; Protocol PRN Reason: Pain, Severe (Pain Scale 7-10) Last Admin: 11/30/23 19:41 Dose: 4 mg Omeprazole (Omeprazole 20 Mg Capsule.) 20 mg PO BEDTIME [facility] Last Admin: 11/30/23 19:41 Dose: 20 mg Ondansetron HCl (Ondansetron Hcl 4 Mg/2 Ml Vial) 4 mg IVPUSH Q8H PRN PRN Reason: Nausea and Vomiting Last Admin: 11/30/23 05:30 Dose: 4 mg Risperidone (Risperidone Microspheres 25 Mg/2 Ml Syringe) 25 mg IM Q14D [facility] Sodium Chloride (0.9 % Sodium Chloride Flush 3 Ml Syringe) 3 ml IVFLUSH QSHIFT [facility] Last Admin: 12/01/23 00:00 Dose: Not Given Home Medications ?Medication ?Instructions ?Recorded ?Confirmed ?Last Taken ?Type folic acid 1 mg tablet 1 mg PO DAILY 09/30/22 11/29/23 11/28/23 History risperidone microspheres 25 mg/2 25 mg IM Q14D 09/30/22 11/29/23 11/27/23 History mL intramuscular susp,ext release (Risperdal Consta) nortriptyline 10 mg capsule 10 mg PO BEDTIME 08/15/23 11/29/23 11/28/23 History divalproex 500 mg tablet,delayed 500 mg PO BEDTIME 11/29/23 11/29/23 11/28/23 History release docusate sodium 100 mg capsule 100 mg PO DAILY 11/29/23 11/29/23 11/28/23 History furosemide 20 mg tablet 20 mg PO DAILY 11/29/23 11/29/23 11/28/23 History lisinopril 5 mg tablet 5 mg PO DAILY 11/29/23 11/29/23 11/28/23 History Physical Exam 2 Vital Signs: Vital Signs: Last Vital Signs Temp 98.9 F 12/01/23 07:03 Pulse 121 H 12/01/23 07:03 Resp 16 12/01/23 07:03 BP 110/51 L 12/01/23 07:03 Pulse Ox 92 12/01/23 07:03 O2 Del Method Oxymask 12/01/23 07:03 O2 Flow Rate 3 12/01/23 03:59 Oxygen Flow Rate 3 11/30/23 07:00 BMI result Body Mass Index 31.0 Const: General: cooperative, healthy appearing and no acute distress Resp: Effort & Inspection: normal respiratory effort and able to speak in complete sentences Cardio: Rate: regular rate Peripheral pulses: Peripheral pulses 2+ throughout GI: Palpation (GI): Soft to palpation Skin: Lesions: no lesions Rashes: no rashes Extrem: Other: Left lower extremity is shortened and externally rotated. Able to dorsi/plantar flex. Sensation intact. Pedal pulse intact. Results Labs 11/30/23 04:20 11/30/23 04:20 Labs: Abnormal lab results 11/30/23 11/30/23 11/30/23 Range/Units 04:20 11:07 13:00 aPTT Heparin Protocol 41.2 L D (53-77.9) SEC Carbon Dioxide 19 L (22-29) mmol/L BUN 26 H (9-16) mg/dL Random Glucose 143 H (60-115) mg/dL Ur Specific [place] >= 1.030 H (1.005-1.025) Urine Blood Small (1+) H (Negative) Urine RBC 3-5 H (0-2) /HPF 11/30/23 12/01/23 Range/Units 18:07 01:04 aPTT Heparin Protocol 88.6 H D 49.5 L D (53-77.9) SEC Carbon Dioxide (22-29) mmol/L BUN (9-16) mg/dL Random Glucose (60-115) mg/dL Ur Specific [place] (1.005-1.025) Urine Blood (Negative) Urine RBC (0-2) /HPF H & H 11/29/23 11/29/23 11/30/23 Range/Units 11:47 20:55 04:20 Hgb 12.8 13.2 12.7 (12.0-16.0) g/dl Hct 38.0 41.6 38.3 (37.0-47.0) % Coagulation 11/29/23 11/29/23 11/30/23 Range/Units 11:47 15:45 07:12 INR 0.9 Cancelled 1.0 (0.9-1.1) All other labs normal. Assessment and Plan (1) Pulmonary embolism: Qualifiers: Pulmonary embolism type: other Chronicity: acute Acute cor pulmonale presence: with acute cor pulmonale Qualified Code(s): I26.09 - Other pulmonary embolism with acute cor pulmonale Status: Acute (2) NSTEMI (non-ST elevated myocardial infarction): Status: Acute (3) Fracture of left femur: Qualifiers: Encounter type: initial encounter Femur location: unspecified portion of femur Fracture morphology: unspecified fracture morphology Fracture type: c losed Qualified Code(s): S72.92XA - Unspecified fracture of left femur, initial encounter for closed fracture Status: Acute I discussed the case with Dr. Doran and explained the extent of the injury to the patient and her HCP who is her sister Chasity Fall and options available which include surgical intervention. I explained the procedure in detail along with the length of recovery and rehab course. I explained the risk, benefits and alternatives. Risk including, but not limited to infection, blood clots, bleeding, non union or malunion and nerve/tissue damage to surrounding areas. I answered all their questions and with their understanding they have consented to move forward with Operative Fixation of the left hip. The patient is currently pending IVC filter and echo after procedure. Once medically cleared the patient and her HCP would like to proceed with operative fixation of the left hip. Surgery pending once cleared. Quality Stroke Does the patient have a stroke diagnosis?: No VTE Prior VTE?: No VTE Risk Level:: Medical - moderate - high VTE Device Contraindication: Treatment Not Indicated VTE Drug Contraindication: N/A - Med Ordered Procedures Date of Service Date of Service: 12/01/23
--- NOTE | 2023-12-01 08:59 | PM.HEMONCCN ---
Subjective - Subjective Chief complaint: None reported Patient: new to practice Consult date: 12/01/23 Primary Care Provider: Jesusita Jo MD HPI - Consult Narrative Reason for consult: DVT/submassive pulmonary embolism Narrative: Jign Bautista is a 78 year old female was brought in by ambulance after a fall at home and found to have pulmonary emboli and bilateral lower extremity DVT. Patient is a poor historian, as per chart past medical history significant for cognitive disorder, history of TIA, hypertension, hyperlipidemia and bipolar disorder. She is unable to provide any history of her breast cancer that is mentioned in the chart. She also does not recall previous episode of thromboembolism. She thinks it was only in the leg and not in the lungs. Patient felt a tingling sensation in her entire body 2 days back which caused her to lose balance and she fell landing on her left hip. She had pain in her left hip extending down her left leg and thigh. Workup revealed acute subcapital left femoral neck fracture. EKG demonstrated sinus tachycardia with septal infarction. Patient has been receiving unfractionated heparin. Review of Systems - Constitutional Reports as per HPI - Neurologic Reports weakness PMFSH Medical History: Medical History (Last Reviewed 11/30/23 @ 11:04 by Wayne Shields MD) Bipolar 1 disorder Breast cancer Chronic low back pain Cognitive disorder DVT (deep venous thrombosis) Gait disorder Generalized muscle weakness GERD (gastroesophageal reflux disease) Hearing impairment HTN (hypertension) Hyperlipidemia Obesity Rash of neck TIA (transient ischemic attack) Tremors of nervous system Family History: Family History (Last Reviewed 11/30/23 @ 11:04 by Wayne Shields MD) Brother Alcohol abuse Polio Substance use disorder Brother Cancer Sister Stroke Mental health disorder Mother HTN (hypertension) Sister Cancer Surgical History: Surgical History (Last Reviewed 11/30/23 @ 11:04 by Wayne Shields MD) H/O mastectomy Social History: Social History (Last Reviewed 11/30/23 @ 11:04 by Wayne Shields MD) Living Situation History: Household Members: None Housing: Condominium Do you presently have visiting nurse or other home services: Yes Alcohol History: Unable to assess alcohol history related to: Refusing to respond Tobacco History: Patient Tobacco Use Status: Former Tobacco user Tobacco use type: Smokeless Tobacco Years Smoked: 30 Smoke Quit Date: 11 years ago e-Cigarette/Vaping Use: Never Used Second Hand Smoke Exposure: No Advance Directives: Advance Directives Date on File: 05/01/22 Occupation Assessmet: service: No Sex/Gender Assessment: Sexual orientation: Straight/Heterosexual Home Medications and Allergies Current Medications: Current Medications Acetaminophen (Acetaminophen 325 Mg Tablet) 650 mg PO Q6H PRN PRN Reason: Pain, Mild (Pain Scale 1-3) Atorvastatin Calcium (Atorvastatin Calcium 10 Mg Tablet) 10 mg PO BEDTIME [facility] Last Admin: 11/30/23 19:41 Dose: 10 mg Benzonatate (Benzonatate 100 Mg Capsule) 100 mg PO TID PRN PRN Reason: Cough Divalproex Sodium (Divalproex Sodium 500 Mg Tablet.) 500 mg PO BEDTIME [facility] Last Admin: 11/30/23 19:41 Dose: 500 mg Docusate Sodium (Docusate Sodium 100 Mg Capsule) 100 mg PO DAILY PRN PRN Reason: Constipation Docusate Sodium (Docusate Sodium 100 Mg Capsule) 100 mg PO DAILY [facility] Folic Acid (Folic Acid 1 Mg Tablet) 1 mg PO DAILY [facility] Heparin Sodium (Porcine) (Heparin Sodium,Porcine 5,000 Unit/Ml Vial) 3,200 unit 40 unit/kg (3200 unit) IVPUSH PROTOCOL BOLUS PRN; Protocol PRN Reason: 40 unit/kg - Heparin Protocol Last Admin: 12/01/23 01:43 Dose: 3,200 unit Heparin Sodium (Porcine) (Heparin Sodium,Porcine 5,000 Unit/Ml Vial) 6,400 unit 80 unit/kg (6400 unit) IVPUSH PROTOCOL BOLUS PRN; Protocol PRN Reason: 80 unit/kg - Heparin Protocol Heparin Sodium/Sodium Chloride (Heparin Sodium,Porcine/1/2ns) 25,000 unit in 250 mls @ 0 mls/hr IVCONT .Q0M [facility]; Protocol Last Titration: 12/01/23 01:46 Dose: 12 units/kg/hr, 9.53 mls/hr Melatonin (Melatonin 3 Mg Tablet) 6 mg PO BEDTIME PRN PRN Reason: Insomnia Morphine Sulfate (Morphine Sulfate 4 Mg/Ml Cartridge) 4 mg IVPUSH Q4H PRN; Protocol PRN Reason: Pain, Severe (Pain Scale 7-10) Last Admin: 11/30/23 19:41 Dose: 4 mg Omeprazole (Omeprazole 20 Mg Capsule.) 20 mg PO BEDTIME [facility] Last Admin: 11/30/23 19:41 Dose: 20 mg Ondansetron HCl (Ondansetron Hcl 4 Mg/2 Ml Vial) 4 mg IVPUSH Q8H PRN PRN Reason: Nausea and Vomiting Last Admin: 11/30/23 05:30 Dose: 4 mg Risperidone (Risperidone Microspheres 25 Mg/2 Ml Syringe) 25 mg IM Q14D [facility] Sodium Chloride (0.9 % Sodium Chloride Flush 3 Ml Syringe) 3 ml IVFLUSH QSHIFT [facility] Last Admin: 12/01/23 00:00 Dose: Not Given Home Medications ?Medication ?Instructions ?Recorded ?Confirmed ?Type folic acid 1 mg tablet 1 mg PO DAILY 09/30/22 11/29/23 History risperidone microspheres 25 mg/2 25 mg IM Q14D 09/30/22 11/29/23 History mL intramuscular susp,ext release (Risperdal Consta) nortriptyline 10 mg capsule 10 mg PO BEDTIME 08/15/23 11/29/23 History divalproex 500 mg tablet,delayed 500 mg PO BEDTIME 11/29/23 11/29/23 History release docusate sodium 100 mg capsule 100 mg PO DAILY 11/29/23 11/29/23 History furosemide 20 mg tablet 20 mg PO DAILY 11/29/23 11/29/23 History lisinopril 5 mg tablet 5 mg PO DAILY 11/29/23 11/29/23 History Allergies Allergy/AdvReac Type Severity Reaction Status Date / Time No Known Allergies Allergy Verified 11/29/23 19:21 [No Known Allergies*] Physical Exam Vital signs: Vital Signs Temp 98.9 F 12/01/23 07:03 Pulse 121 H 12/01/23 07:03 Resp 16 12/01/23 07:03 BP 110/51 L 12/01/23 07:03 Pulse Ox 92 12/01/23 07:03 O2 Del Method Oxymask 12/01/23 07:03 O2 Flow Rate 3 12/01/23 03:59 Intake & Output 11/30/23 12/01/23 12/01/23 18:59 06:59 18:59 Intake Total 419.802 / 474.059 54.257 / 474.059 Output Total 0 / 600 600 / 600 Balance 419.802 / -125.941 -545.743 / -125.941 Urine Output (Average ml/kg/hr) 0.00 0.63 Intake: Intake, Oral Amount 300 / 300 Intake, IV Amount 119.802 / 174.059 54.257 / 174.059 Heparin Sodium,Porcine/1/2NS 25 119.802 / 174.059 54.257 / 174.059 ,000 unit In 250 ml @ Per Protocol IVCONT .Q0M [facility] Rx#: [id number] Output: Output, Urine Amount 0 / 600 600 / 600 Other: NPO Yes Breakfast % Eaten 25% Lunch % Eaten 25% Number of Bowel Movements 0 Urine Color Yellow Weight 79.4 kg - Constitutional Present: no acute distress, obese, cooperative - Routine HEENT Exam Head: Present: normal inspection Eye: Present: conjunctivae pale - Routine Neck Exam Present: supple. Absent: lymphadenopathy - Routine Respiratory Exam Absent: accessory muscle use, stridor, wheezes - Routine Cardiovascular Exam Cardiovascular: Present: S1, S2, tachycardia - Routine Abdominal Exam Present: soft - Routine Extremities Exam Present: pulses intact Hem/Onc Consult Result - Labs CBC & Chem 7: 11/30/23 04:20 11/30/23 04:20 Labs: Urine 11/30/23 Range/Units 13:00 Urine Color Yellow Urine Appearance Clear Urine pH 6.5 (5.0-9.0) Ur Specific [place] >= 1.030 H (1.005-1.025) Urine Protein Trace (Neg-Trace) mg/dL Urine Glucose (UA) Negative (Negative) mg/dL Assessment and Plan Patient Active problem list reviewed?: Yes (1) Pulmonary embolism Status: Acute Assessment and plan: 1. This is a 78-year-old woman with bilateral lower extremity DVT and submassive pulmonary embolism who unfortunately also suffered left femoral fracture and needs surgery. CT angiogram of chest revealed right-sided segmental and subsegmental pulmonary emboli involving all lobes, left-sided pulmonary emboli along the distal left main pulmonary artery, mild septal bowing suggesting elements of heart strain. Lower extremity Doppler revealed bilateral nonocclusive thrombi involving right proximal femoral vein and left femoral vein and popliteal veins. Because of the extent of clot burden and right heart strain, she has had significant elevation of cardiac enzymes as well. Echocardiogram is pending from today. I agree with continuing with unfractionated heparin, she continues to require significant amount of oxygen and is tachycardic. No role of thrombolytics because of her fracture. She is at high-risk for both pulmonary and cardiac complications with surgery. IVC filter placement may help during interruption of coagulation, however she would need long-term/indefinite anticoagulation. This appears to be her 2nd episode of thrombosis. Thrombophilia workup can be submitted as outpatient. I thank you for this referral. - Time Spent With Patient Time Spent with Patient (in minutes): 20
[2023-12-01 09:13] LABS: PTT Heparin Drip 77.3 SEC (53-77.9)
[2023-12-01 09:17] LABS: Anion Gap 11 (12-20); Blood Urea Nitrogen 26 mg/dL (9-16); Calcium 8.9 mg/dL (8.4-10.2); Carbon Dioxide 26 mmol/L (22-29); Chloride 107 mmol/L (96-108); Creatinine Clr Calc Pharmacy 33.6; Estimated Glomerular Filt Rate 36; Glucose Random 127 mg/dL (60-115); Potassium 4.5 mmol/L (3.3-5.1); Sodium 139 mmol/L (135-145)
--- NOTE | 2023-12-01 09:17 | PC.NURSE ---
Heparin aPTT came back within therapeutic level at 77.3 no rate change, next draw in 6 hours
[2023-12-01 09:18] LABS: Hematocrit 35.5 % (37.0-47.0); Hemoglobin 11.4 g/dl (12.0-16.0); Mean Corpuscular HGB Conc 32.1 g/dl (31.0-35.0); Mean Corpuscular Hemoglobin 30.6 pg (27.0-33.0); Mean Corpuscular Volume 95.2 fL (80.0-98.0); Mean Platelet Volume 11.1 fL (9.4-12.3); Platelet Count 159 X10*3/uL (160-400); Red Blood Count 3.73 X10*6/uL (4.20-5.50); Red Cell Distribution Width 13.3 % (11.0-16.0)
[2023-12-01 09:23] LABS: B Type Natriuretic Peptide 97 pg/mL (<100)
[2023-12-01 09:29] LABS: Troponin-I High Sensitivity 176.6 ng/L (<3.5-17.0)
[2023-12-01] MEDS: Folic Acid 1 MG TABLET PO (09:29)
[2023-12-01] MEDS: Docusate Sodium 100 MG CAPSULE PO (09:29)
[2023-12-01] MEDS: Acetaminophen 325 MG TABLET 650 MG PO (09:29)
--- NOTE | 2023-12-01 09:55 | P.PNIM_ITS ---
Subjective Subjective Date of Service: 12/01/23 Interval History: no chest pain some dyspnea hip pain controlled Review of Systems Review of Systems: Yes all other systems are reviewed and are negative Physical Exam 2 Vital Signs: Vital Signs: Last Vital Signs Temp 98.9 F 12/01/23 07:03 Pulse 121 H 12/01/23 07:03 Resp 16 12/01/23 07:03 BP 110/51 L 12/01/23 07:03 Pulse Ox 92 12/01/23 07:03 O2 Del Method Oxymask 12/01/23 07:03 O2 Flow Rate 3 12/01/23 03:59 Oxygen Flow Rate 3 11/30/23 07:00 BMI result Body Mass Index 31.0 Gen: in no acute distress HEENT: sclera anicteric, moist mucus membranes Neck: supple Lungs: clear to auscultation bilaterally Heart: regular, tachycardic, no murmurs Abd: soft, non-tender, non-distended Ext: LLE shortened, externally rotated Skin: warm/well-perfused Neuro: alert and oriented x3, no focal findings Psych: appropriate affect Objective Data Active Medications Acetaminophen (Acetaminophen 325 Mg Tablet) 650 mg PO Q6H PRN PRN Reason: Pain, Mild (Pain Scale 1-3) Last Admin: 12/01/23 09:29 Dose: 650 mg Documented By: MANJINDER Atorvastatin Calcium (Atorvastatin Calcium 10 Mg Tablet) 10 mg PO BEDTIME [facility] Last Admin: 11/30/23 19:41 Dose: 10 mg Documented By: WISAM Benzonatate (Benzonatate 100 Mg Capsule) 100 mg PO TID PRN PRN Reason: Cough Divalproex Sodium (Divalproex Sodium 500 Mg Tablet.Dr) 500 mg PO BEDTIME [facility] Last Admin: 11/30/23 19:41 Dose: 500 mg Documented By: WISAM Docusate Sodium (Docusate Sodium 100 Mg Capsule) 100 mg PO DAILY PRN PRN Reason: Constipation Docusate Sodium (Docusate Sodium 100 Mg Capsule) 100 mg PO DAILY [facility] Last Admin: 12/01/23 09:29 Dose: 100 mg Documented By: MANJINDER Folic Acid (Folic Acid 1 Mg Tablet) 1 mg PO DAILY [facility] Last Admin: 12/01/23 09:29 Dose: 1 mg Documented By: MANJINDER Heparin Sodium (Porcine) (Heparin Sodium,Porcine 5,000 Unit/Ml Vial) 3,200 unit 40 unit/kg (3200 unit) IVPUSH PROTOCOL BOLUS PRN; Protocol PRN Reason: 40 unit/kg - Heparin Protocol Last Admin: 12/01/23 01:43 Dose: 3,200 unit Documented By: CHALO Heparin Sodium (Porcine) (Heparin Sodium,Porcine 5,000 Unit/Ml Vial) 6,400 unit 80 unit/kg (6400 unit) IVPUSH PROTOCOL BOLUS PRN; Protocol PRN Reason: 80 unit/kg - Heparin Protocol Heparin Sodium/Sodium Chloride (Heparin Sodium,Porcine/1/2ns) 25,000 unit in 250 mls @ 0 mls/hr IVCONT .Q0M [facility]; Protocol Last Titration: 12/01/23 09:38 Dose: 12 units/kg/hr, 9.53 mls/hr Documented By: MANJINDER Co-signed By: ARI Melatonin (Melatonin 3 Mg Tablet) 6 mg PO BEDTIME PRN PRN Reason: Insomnia Morphine Sulfate (Morphine Sulfate 4 Mg/Ml Cartridge) 4 mg IVPUSH Q4H PRN; Protocol PRN Reason: Pain, Severe (Pain Scale 7-10) Last Admin: 11/30/23 19:41 Dose: 4 mg Documented By: WISAM Omeprazole (Omeprazole 20 Mg Capsule.) 20 mg PO BEDTIME [facility] Last Admin: 11/30/23 19:41 Dose: 20 mg Documented By: WISAM Ondansetron HCl (Ondansetron Hcl 4 Mg/2 Ml Vial) 4 mg IVPUSH Q8H PRN PRN Reason: Nausea and Vomiting Last Admin: 11/30/23 05:30 Dose: 4 mg Documented By: SAMUEL Risperidone (Risperidone Microspheres 25 Mg/2 Ml Syringe) 25 mg IM Q14D [facility] Sodium Chloride (0.9 % Sodium Chloride Flush 3 Ml Syringe) 3 ml IVFLUSH QSHIFT [facility] Last Admin: 12/01/23 09:44 Dose: Not Given Documented By: MANJINDER Non-Admin Reason: IV Running Labs 12/01/23 08:25 12/01/23 08:25 Labs: Laboratory Results - last 24 hr 11/30/23 11/30/23 11/30/23 11:07 13:00 18:07 MCV MCH MCHC RDW Plt Count MPV Absolute Nucleated RBC Nucleated RBC % (auto) aPTT Heparin Protocol 41.2 L D 88.6 H D Anion Gap Estim Creat Clear Calc Estimated GFR Random Glucose Calcium Troponin I High Sens B-Natriuretic Peptide Hold Yellow Top Urine Color Yellow Urine Appearance Clear Urine pH 6.5 Ur Specific [place] >= 1.030 H Urine Protein Trace Urine Glucose (UA) Negative Urine Ketones Trace Urine Blood Small (1+) H Urine Nitrite Negative Ur Leukocyte Esterase Negative Urine RBC 3-5 H Urine WBC 0-5 Ur Squamous Epith Cells 0-2 Urine Bacteria None Seen Hyaline Casts 0-2 12/01/23 12/01/23 12/01/23 01:04 08:25 08:26 MCV 95.2 MCH 30.6 MCHC 32.1 RDW 13.3 Plt Count 159 L MPV 11.1 Absolute Nucleated RBC 0.000 Nucleated RBC % (auto) 0.0 aPTT Heparin Protocol 49.5 L D 77.3 D Anion Gap 11 L Estim Creat Clear Calc 33.6 Estimated GFR 36 Random Glucose 127 H Calcium 8.9 Troponin I High Sens 176.6 H* D B-Natriuretic Peptide 97 Hold Yellow Top See Note Urine Color Urine Appearance Urine pH Ur Specific [place] Urine Protein Urine Glucose (UA) Urine Ketones Urine Blood Urine Nitrite Ur Leukocyte Esterase Urine RBC Urine WBC Ur Squamous Epith Cells Urine Bacteria Hyaline Casts Assessment and Plan (1) Pulmonary embolism: Status: Acute Plan d3 78yo with HTN, HLD, hx TIA, hx DVT, hx breast CA, GERD, bipolar I disorder became lightheaded suddenly then fell on her L hip found to have L femoral neck fracture and submassive PE with R heart strain acute hypoxic resp failure due to submassive PE/R heart strain/NSTEMI - Will eventually need DOAC lifelong but for now continue high-dose heparin IV infusion perioperatively. Due to anticoagulation interruption for femur surgery, Vasc Surg to place IVCF today. TTE pending, Cardiology + Pulmonology + Hematology consulted. Wean O2 as tolerated. L hip fx - High-risk for operative repair; Cardiology consulted as above. Awaiting hemodynamic recovery prior to operation. Anesthesia consulted. STEFANI/CKD3 - Hold lisinopril and give LR; recheck BMP in AM. GERD - PPI HTN - hold lisinopril + furosemide; avoid intraoperative hypotension. HLD - statin bipolar disorder - valproate, IM depot risperidone dispo - eventually STR after hip repair In my clinical judgment, the patient requires continued inpatient hospitalization for the following reasons: IV heparin, operative repair Total time managing care of this patient today: 50 minutes. Quality Stroke Does the patient have a stroke diagnosis?: No VTE Prior VTE?: No VTE Risk Level:: Medical - moderate - high VTE Device Contraindication: Treatment Not Indicated VTE Drug Contraindication: N/A - Med Ordered
[2023-12-01] MEDS: Heparin Sodium,Porcine/1/2NS 25,000 UNIT/250 ML IV.SOLN 9.53 UNIT IVCONT (10:51)
[2023-12-01 11:01] LABS: Troponin-I High Sensitivity 157.1 ng/L (<3.5-17.0)
--- NOTE | 2023-12-01 11:02 | PM.PNCARD ---
Subjective Subjective Date of Service: 12/01/23 Interval history: Seen examined at bedside. Waiting to go for IVC filter. On heparin drip. Physical Exam Vital Signs: Last Vital Signs Temp 98.9 F 12/01/23 07:03 Pulse 121 H 12/01/23 07:03 Resp 16 12/01/23 07:03 BP 110/51 L 12/01/23 07:03 Pulse Ox 92 12/01/23 07:03 O2 Del Method Oxymask 12/01/23 07:03 O2 Flow Rate 3 12/01/23 03:59 Oxygen Flow Rate 3 11/30/23 07:00 BMI result Body Mass Index 31.0 GENERAL APPEARANCE: in no acute distress, pleasant. NECK: no carotid bruit, no jugular venous distention. SKIN: no suspicious lesions, warm and dry. HEART: no murmurs, regular rate and rhythm. Tachycardic. LUNGS: clear to auscultation bilaterally. ABDOMEN: soft, nontender. EXTREMITIES: no edema. PERIPHERAL PULSES: equal. NEUROLOGIC: No gross deficits, AAO X 3 Objective Labs and Meds 12/01/23 08:25 12/01/23 08:25 Lab results: Laboratory Results - last 24 hr 11/30/23 11/30/23 11/30/23 11:07 13:00 18:07 WBC RBC Hgb Hct MCV MCH MCHC RDW Plt Count MPV Absolute Nucleated RBC Nucleated RBC % (auto) aPTT Heparin Protocol 41.2 L D 88.6 H D Sodium Potassium Chloride Carbon Dioxide Anion Gap BUN Creatinine Estim Creat Clear Calc Estimated GFR Random Glucose Calcium Troponin I High Sens B-Natriuretic Peptide Hold Yellow Top Urine Color Yellow Urine Appearance Clear Urine pH 6.5 Ur Specific [place] >= 1.030 H Urine Protein Trace Urine Glucose (UA) Negative Urine Ketones Trace Urine Blood Small (1+) H Urine Nitrite Negative Ur Leukocyte Esterase Negative Urine RBC 3-5 H Urine WBC 0-5 Ur Squamous Epith Cells 0-2 Urine Bacteria None Seen Hyaline Casts 0-2 12/01/23 12/01/23 12/01/23 01:04 08:25 08:26 WBC 11.0 H RBC 3.73 L Hgb 11.4 L Hct 35.5 L MCV 95.2 MCH 30.6 MCHC 32.1 RDW 13.3 Plt Count 159 L MPV 11.1 Absolute Nucleated RBC 0.000 Nucleated RBC % (auto) 0.0 aPTT Heparin Protocol 49.5 L D 77.3 D Sodium 139 Potassium 4.5 Chloride 107 Carbon Dioxide 26 Anion Gap 11 L BUN 26 H Creatinine 1.42 H Estim Creat Clear Calc 33.6 Estimated GFR 36 Random Glucose 127 H Calcium 8.9 Troponin I High Sens 176.6 H* D B-Natriuretic Peptide 97 Hold Yellow Top See Note Urine Color Urine Appearance Urine pH Ur Specific [place] Urine Protein Urine Glucose (UA) Urine Ketones Urine Blood Urine Nitrite Ur Leukocyte Esterase Urine RBC Urine WBC Ur Squamous Epith Cells Urine Bacteria Hyaline Casts 12/01/23 10:07 WBC RBC Hgb Hct MCV MCH MCHC RDW Plt Count MPV Absolute Nucleated RBC Nucleated RBC % (auto) aPTT Heparin Protocol Sodium Potassium Chloride Carbon Dioxide Anion Gap BUN Creatinine Estim Creat Clear Calc Estimated GFR Random Glucose Calcium Troponin I High Sens 157.1 H* B-Natriuretic Peptide Hold Yellow Top Urine Color Urine Appearance Urine pH Ur Specific [place] Urine Protein Urine Glucose (UA) Urine Ketones Urine Blood Urine Nitrite Ur Leukocyte Esterase Urine RBC Urine WBC Ur Squamous Epith Cells Urine Bacteria Hyaline Casts Imaging Radiologist's impression: Impressions Venous Duplex 11/30/23 09:24 IMPRESSION: Bilateral nonocclusive thrombus involving the right proximal femoral vein and the left femoral vein and popliteal vein. Progress Note: A&P Assessment and plan (1) Pulmonary embolism: Status: Acute Plan Pleasant 78 year female presenting with fall and pulmonary embolism. She unfortunately had hip fracture. She will need surgery and for that purpose she will get an IVC filter placed as anticoagulation will we interrupted for surgery. She is tachycardic due to pulmonary embolism. ECHO was reviewed but unfortunately due to breast implants the imaging is quite limited and we could not visualize the right ventricle well. It does not appear to be significantly dilated or dysfunctional but imaging is quite limited. Support with oxygen. Would avoid any beta-blockers or calcium channel blockers currently. Post of anticoagulation will be resumed and eventually the IVC filter will have to be removed. Thank you for allowing me to participate in the care of your patient. Please feel free to contact me if you have any questions. Time Spent With Patient Time: Total time managing care of this patient today ____ minutes. Progress Note: Quality Stroke Does the patient have a stroke diagnosis?: No Procedures Date of Service Date of Service: 12/01/23
[2023-12-01] MEDS: Lactated Ringers 1,000 ML 100 ML IVCONT (11:38)
--- NOTE | 2023-12-01 15:54 | MHC.CM.PN ---
Pt is not yet ready for DC, plan is STR, accepted at [facility], and Riki Norman is following. Anticipate pt will have surgery for hip fracture.
--- NOTE | 2023-12-01 17:33 | HO.WOUND ---
Wound Consult: Initial 78yr old?female [place] [facility] - See progress notes and H&P for detailed history.? Wound consult placed for Left hip.? Patient agreeable to assessment and photo documentation.? Arrival to bedside patient reported pain to her coccyx area. Patient repositioned to right side with max assist - Left hip assessed for slight bruise consistent with injury / fall and no pressure injury development noted - no topical interventions needed at this time. The sacrum and buttock were assessed for intact blanchable redness and tenderness. Sacral foam dressing applied for prevention and off loaded with pillows and positioning adjusted. Patient reports significant improvement in discomfort. Sacrum Left Hip Bruise Recommendations: 1. Turn and Reposition every 2 hours and as needed for patient comfort.? Use pillows or wedges to support off loading positions. 2. Off Load all bony prominences with use of pillows and heel boots if needed.? Apply Preventative foams where needed. ? 3. Monitor for incontinence and moisture control, use barrier creams when needed for prevention and treatment. 4. Provide adequate and supplemental nutrition.? 5. Order low air loss mattress. 6. When applicable maintain blood glucose levels per Providers order. 7. Sacrum - Routine cleansing. Apply sacral foam dressing peel back and assess Q shift change every 3 days. Ensure sacral foam dressing is applied prior to OR to aid in decreasing pressure injury development. Re-consult wound care Nurse for wound deterioration or wound changes.
[2023-12-01] MEDS: Divalproex Sodium 500 MG TABLET.DR PO (21:34)
[2023-12-01] MEDS: Atorvastatin Calcium 10 MG TABLET PO (21:34)
[2023-12-01] MEDS: Omeprazole 20 MG CAPSULE.DR PO (21:34)
[2023-12-02] VITALS (9 sets, daily range): BP systolic 123–134; BP diastolic 57–76; PULSE 100–112; RESP 16–22; TEMP 36.1–37.1; O2SAT 92–96
[2023-12-02 07:03] LABS: Hemoglobin 10.7 g/dl (12.0-16.0); Mean Corpuscular HGB Conc 33.4 g/dl (31.0-35.0); Mean Corpuscular Hemoglobin 30.8 pg (27.0-33.0); Mean Corpuscular Volume 92.2 fL (80.0-98.0); Platelet Count 153 X10*3/uL (160-400); Red Blood Count 3.47 X10*6/uL (4.20-5.50); Red Cell Distribution Width 13.1 % (11.0-16.0); White Blood Count 10.2 X10*3/uL (4.8-10.8)
[2023-12-02 07:17] LABS: Anion Gap 12 (12-20); Blood Urea Nitrogen 28 mg/dL (9-16); Calcium 9.1 mg/dL (8.4-10.2); Carbon Dioxide 25 mmol/L (22-29); Chloride 107 mmol/L (96-108); Creatinine Clr Calc Pharmacy 47.7; Estimated Glomerular Filt Rate 54; Glucose Random 85 mg/dL (60-115); Potassium 4.3 mmol/L (3.3-5.1); Sodium 140 mmol/L (135-145)
[2023-12-02 07:23] LABS: PTT Heparin Drip 51.3 SEC (53-77.9)
[2023-12-02 07:33] LABS: Troponin-I High Sensitivity 71.2 ng/L (<3.5-17.0)
[2023-12-02] MEDS: Heparin Sodium,Porcine 5,000 UNIT/ML VIAL 3200 UNIT IVPUSH ×2 (07:40→23:03)
--- NOTE | 2023-12-02 07:40 | PM.CNGS ---
History of Present Illness Consult details Consult date: 12/01/23 Reason for consult: other (DVT with PE) Narrative: This is a very pleasant 78-year-old female who apparently suffered bilateral lower extremity DVT and submassive PE. She fell and had a left femoral neck fracture in need of surgery. CT angiogram revealed right-sided segmental and subsegmental PE and left side had a left distal main PE. Lower extremity Dopplers demonstrated nonocclusive thrombi right proximal femoral and left femoral veins and popliteal. She did develop some right heart strain. She did have elevation of cardiac enzymes as well. She was subsequently anticoagulated. She is requiring oxygen of 3 L by nasal cannula. There is also a reported prior history of DVT as well. Review of Systems Review of Systems: Yes all other systems are reviewed and are negative Constitutional: Constitutional: Reports no additional constitutional complaints ENT: Reports Normal hearing present Cardiovascular: Cardiovascular: Denies chest pain, Denies chest pain at rest, Denies chest pain with activity and Denies pedal edema Respiratory: Respiratory: Denies cough Gastrointestinal: Gastrointestinal: Denies abdominal pain Musculoskeletal: Musculoskeletal: Denies abnormal gait, Denies muscle cramps and Denies radiating pain into limb Integumentary/Breasts: Skin/Breast: Denies skin ulcer and Denies wounds Neurologic: Reports Normal hearing present and Denies abnormal gait Psychiatric: Psychiatric: Reports no additional psychiatric complaints PMFSH Past Medical History Medical History Chronic low back pain Rash of neck Hearing impairment Generalized muscle weakness Cognitive disorder TIA (transient ischemic attack) Tremors of nervous system Gait disorder DVT (deep venous thrombosis) Obesity Hyperlipidemia HTN (hypertension) GERD (gastroesophageal reflux disease) Breast cancer Bipolar 1 disorder Family History Family History Brother Alcohol abuse Polio Substance use disorder Brother Cancer Sister Stroke Mental health disorder Mother HTN (hypertension) Sister Cancer Surgical History Surgical History H/O mastectomy Social History Social History Household Members: None Housing: Condominium Do you presently have visiting nurse or other home services: Yes Unable to assess alcohol history related to: Refusing to respond Alcohol intake: current Alcohol type: wine Patient Tobacco Use Status: Former Tobacco user Quit Date: 11 years ago Tobacco use type: Smokeless Tobacco Years Smoked: 30 e-Cigarette/Vaping Use: Never Used Second Hand Smoke Exposure: No Advance Directives Date on File: 05/01/22 service: No Sexual orientation: Straight/Heterosexual Cognitive needs: No Hearing needs: No Vision needs: Yes Meds Allergies Allergy/AdvReac Type Severity Reaction Status Date / Time No Known Allergies Allergy Verified 11/29/23 19:21 [No Known Allergies*] Active Medications: Current Medications Acetaminophen (Acetaminophen 325 Mg Tablet) 650 mg PO Q6H PRN PRN Reason: Pain, Mild (Pain Scale 1-3) Last Admin: 12/01/23 09:29 Dose: 650 mg Atorvastatin Calcium (Atorvastatin Calcium 10 Mg Tablet) 10 mg PO BEDTIME [facility] Last Admin: 12/01/23 21:34 Dose: 10 mg Benzonatate (Benzonatate 100 Mg Capsule) 100 mg PO TID PRN PRN Reason: Cough Divalproex Sodium (Divalproex Sodium 500 Mg Tablet.Dr) 500 mg PO BEDTIME [facility] Last Admin: 12/01/23 21:34 Dose: 500 mg Docusate Sodium (Docusate Sodium 100 Mg Capsule) 100 mg PO DAILY PRN PRN Reason: Constipation Docusate Sodium (Docusate Sodium 100 Mg Capsule) 100 mg PO DAILY [facility] Last Admin: 12/01/23 09:29 Dose: 100 mg Folic Acid (Folic Acid 1 Mg Tablet) 1 mg PO DAILY [facility] Last Admin: 12/01/23 09:29 Dose: 1 mg Heparin Sodium (Porcine) (Heparin Sodium,Porcine 5,000 Unit/Ml Vial) 3,200 unit 40 unit/kg (3200 unit) IVPUSH PROTOCOL BOLUS PRN; Protocol PRN Reason: 40 unit/kg - Heparin Protocol Last Admin: 12/01/23 01:43 Dose: 3,200 unit Heparin Sodium (Porcine) (Heparin Sodium,Porcine 5,000 Unit/Ml Vial) 6,400 unit 80 unit/kg (6400 unit) IVPUSH PROTOCOL BOLUS PRN; Protocol PRN Reason: 80 unit/kg - Heparin Protocol Heparin Sodium/Sodium Chloride (Heparin Sodium,Porcine/1/2ns) 25,000 unit in 250 mls @ 0 mls/hr IVCONT .Q0M [facility]; Protocol Last Titration: 12/02/23 07:35 Dose: 14 units/kg/hr, 11.12 mls/hr Melatonin (Melatonin 3 Mg Tablet) 6 mg PO BEDTIME PRN PRN Reason: Insomnia Morphine Sulfate (Morphine Sulfate 4 Mg/Ml Cartridge) 4 mg IVPUSH Q4H PRN; Protocol PRN Reason: Pain, Severe (Pain Scale 7-10) Last Admin: 11/30/23 19:41 Dose: 4 mg Omeprazole (Omeprazole 20 Mg Capsule.Dr) 20 mg PO BEDTIME [facility] Last Admin: 12/01/23 21:34 Dose: 20 mg Ondansetron HCl (Ondansetron Hcl 4 Mg/2 Ml Vial) 4 mg IVPUSH Q8H PRN PRN Reason: Nausea and Vomiting Last Admin: 11/30/23 05:30 Dose: 4 mg Risperidone (Risperidone Microspheres 25 Mg/2 Ml Syringe) 25 mg IM Q14D [facility] Sodium Chloride (0.9 % Sodium Chloride Flush 3 Ml Syringe) 3 ml IVFLUSH QSHIFT [facility] Last Admin: 12/01/23 21:49 Dose: Not Given Home Medications ?Medication ?Instructions ?Recorded ?Confirmed ?Last Taken ?Type folic acid 1 mg tablet 1 mg PO DAILY 09/30/22 11/29/23 11/28/23 History risperidone microspheres 25 mg/2 25 mg IM Q14D 09/30/22 11/29/23 11/27/23 History mL intramuscular susp,ext release (Risperdal Consta) nortriptyline 10 mg capsule 10 mg PO BEDTIME 08/15/23 11/29/23 11/28/23 History divalproex 500 mg tablet,delayed 500 mg PO BEDTIME 11/29/23 11/29/23 11/28/23 History release docusate sodium 100 mg capsule 100 mg PO DAILY 11/29/23 11/29/23 11/28/23 History furosemide 20 mg tablet 20 mg PO DAILY 11/29/23 11/29/23 11/28/23 History lisinopril 5 mg tablet 5 mg PO DAILY 11/29/23 11/29/23 11/28/23 History Physical Exam Vital Signs: Vital Signs: Last Vital Signs Temp 97.0 F 12/02/23 07:02 Pulse 108 H 12/02/23 07:02 Resp 20 12/02/23 07:02 BP 123/58 L 12/02/23 07:02 Pulse Ox 95 12/02/23 07:02 O2 Del Method Oxymask 12/02/23 07:02 O2 Flow Rate 3 12/02/23 07:02 Oxygen Flow Rate 3 11/30/23 07:00 BMI result Body Mass Index 31.0 Const: General: cooperative, healthy appearing and comfortable Orientation/consciousness: oriented to person, oriented to place and oriented to time HEENT: Head: Yes normal to inspection Neck: Neck: Yes normal visual inspection Carotids: no bruits Chest: Chest palpation & inspection: normal inspection of the chest Resp: Effort & Inspection: normal respiratory effort and able to speak in complete sentences Auscultation: clear to auscultation bilaterally, no crackles, no rales, no rhonchi and no wheezes Cardio: Rate: regular rate Rhythm: regular rhythm Heart sounds: S1 normal heart sound present and S2 normal heart sound present Bruits: no carotid bruits Peripheral pulses: Peripheral pulses 2+ throughout GI: Inspection: Yes normal to inspection Skin: Wounds: no wounds Hair: normal Neuro: General: oriented to person, oriented to place and oriented to time Cranial nerves: Yes CN's II-XII intact bilaterally and Yes Normal hearing present Cognition (Neuro): normal cognition Motor exam (neuro): 5/5 motor strength present throughout Extrem: Other: venous exam: No significant superficial varicosities or spider telangiectasias, minimal edema General: No clubbing, No cyanosis and No edema Psych: Appearance: grossly normal Mental Status: mental status grossly normal Speech and movement: Normal speech and movement present Results Labs 12/02/23 06:15 12/02/23 06:15 Labs: Abnormal lab results 12/01/23 12/01/23 12/01/23 Range/Units 08:25 08:26 10:07 WBC 11.0 H (4.8-10.8) X10*3/uL RBC 3.73 L (4.20-5.50) X10*6/uL Hgb 11.4 L (12.0-16.0) g/dl Hct 35.5 L (37.0-47.0) % Plt Count 159 L (160-400) X10*3/uL aPTT Heparin Protocol (53-77.9) SEC Anion Gap 11 L (12-20) BUN 26 H (9-16) mg/dL Creatinine 1.42 H (0.5-1.4) mg/dL Random Glucose 127 H (60-115) mg/dL Troponin I High Sens 176.6 H* D 157.1 H* (<3.5-17.0) ng/L 12/02/23 Range/Units 06:15 WBC (4.8-10.8) X10*3/uL RBC 3.47 L (4.20-5.50) X10*6/uL Hgb 10.7 L (12.0-16.0) g/dl Hct 32.0 L (37.0-47.0) % Plt Count 153 L (160-400) X10*3/uL aPTT Heparin Protocol 51.3 L (53-77.9) SEC Anion Gap (12-20) BUN 28 H (9-16) mg/dL Creatinine (0.5-1.4) mg/dL Random Glucose (60-115) mg/dL Troponin I High Sens 71.2 H* D (<3.5-17.0) ng/L Short CBC 12/01/23 12/02/23 Range/Units 08:25 06:15 WBC 11.0 H 10.2 (4.8-10.8) X10*3/uL Hgb 11.4 L 10.7 L (12.0-16.0) g/dl Hct 35.5 L 32.0 L (37.0-47.0) % Plt Count 159 L 153 L (160-400) X10*3/uL BMP 12/01/23 12/02/23 08:25 06:15 Sodium 139 140 Potassium 4.5 4.3 Chloride 107 107 Carbon Dioxide 26 25 BUN 26 H 28 H Creatinine 1.42 H 1.00 Calcium 8.9 9.1 Urine 11/30/23 Range/Units 13:00 Urine Color Yellow Urine Appearance Clear Urine pH 6.5 (5.0-9.0) Ur Specific Kimper >= 1.030 H (1.005-1.025) Urine Protein Trace (Neg-Trace) mg/dL Urine Glucose (UA) Negative (Negative) mg/dL All other labs normal. Imaging Additional studies: Lower extremity DVT studies written report and images were reviewed. CT angiogram was also reviewed. Assessment and Plan (1) Pulmonary embolism: Qualifiers: Pulmonary embolism type: other Chronicity: acute Acute cor pulmonale presence: with acute cor pulmonale Qualified Code(s): I26.09 - Other pulmonary embolism with acute cor pulmonale Status: Acute Plan In short patient has lower extremity DVT with PE. Due to the submassive pulmonary embolism she will require intervention. In addition she is scheduled for future left femoral fracture. She will require IVC filter placement possible pulmonary embolectomy possible venous mechanical thrombectomy. This was discussed in detail with the patient and she is in agreement. She will be scheduled for tomorrow morning. Thank you for allowing us to assist in her care. If there are any questions or concerns please do not hesitate to contact us. Total time managing care of this patient today: 60 minutes. Procedures Date of Service Date of Service: 12/02/23
[2023-12-02] MEDS: Heparin Sodium,Porcine/1/2NS 25,000 UNIT/250 ML IV.SOLN 11.12 UNIT IVCONT (11:44)
--- NOTE | 2023-12-02 11:55 | P.PNIM_ITS ---
Subjective Subjective Date of Service: 12/02/23 Interval History: s/p pulmonary embolectomy + IVC filter this morning still has some dyspnea denies chest pain Review of Systems Review of Systems: Yes all other systems are reviewed and are negative Physical Exam 2 Vital Signs: Vital Signs: Last Vital Signs Temp 98.5 F 12/02/23 11:00 Pulse 104 H 12/02/23 11:15 Resp 18 12/02/23 11:15 BP 127/66 12/02/23 11:15 Pulse Ox 96 12/02/23 11:15 O2 Del Method Room Air 12/02/23 11:15 O2 Flow Rate 3 12/02/23 07:02 Oxygen Flow Rate 3 11/30/23 07:00 BMI result Body Mass Index 31.0 Gen: in no acute distress HEENT: sclera anicteric, moist mucus membranes Neck: supple Lungs: clear to auscultation bilaterally Heart: regular, tachycardic, no murmurs Abd: soft, non-tender, non-distended Ext: no edema Skin: warm/well-perfused Neuro: alert and oriented x3, no focal findings Psych: appropriate affect Objective Data Active Medications Acetaminophen (Acetaminophen 325 Mg Tablet) 650 mg PO Q6H PRN PRN Reason: Pain, Mild (Pain Scale 1-3) Last Admin: 12/01/23 09:29 Dose: 650 mg Documented By: MANJINDER Atorvastatin Calcium (Atorvastatin Calcium 10 Mg Tablet) 10 mg PO BEDTIME [facility] Last Admin: 12/01/23 21:34 Dose: 10 mg Documented By: DANIEL Benzonatate (Benzonatate 100 Mg Capsule) 100 mg PO TID PRN PRN Reason: Cough Divalproex Sodium (Divalproex Sodium 500 Mg Tablet.Dr) 500 mg PO BEDTIME [facility] Last Admin: 12/01/23 21:34 Dose: 500 mg Documented By: DANIEL Docusate Sodium (Docusate Sodium 100 Mg Capsule) 100 mg PO DAILY PRN PRN Reason: Constipation Docusate Sodium (Docusate Sodium 100 Mg Capsule) 100 mg PO DAILY [facility] Last Admin: 12/02/23 11:40 Dose: Not Given Documented By: RAMY Non-Admin Reason: NPO Folic Acid (Folic Acid 1 Mg Tablet) 1 mg PO DAILY [facility] Last Admin: 12/02/23 11:40 Dose: Not Given Documented By: RAMY Non-Admin Reason: NPO Heparin Sodium (Porcine) (Heparin Sodium,Porcine 5,000 Unit/Ml Vial) 3,200 unit 40 unit/kg (3200 unit) IVPUSH PROTOCOL BOLUS PRN; Protocol PRN Reason: 40 unit/kg - Heparin Protocol Last Admin: 12/02/23 07:40 Dose: 3,200 unit Documented By: RAMY Heparin Sodium (Porcine) (Heparin Sodium,Porcine 5,000 Unit/Ml Vial) 6,400 unit 80 unit/kg (6400 unit) IVPUSH PROTOCOL BOLUS PRN; Protocol PRN Reason: 80 unit/kg - Heparin Protocol Heparin Sodium/Sodium Chloride (Heparin Sodium,Porcine/1/2ns) 25,000 unit in 250 mls @ 0 mls/hr IVCONT .Q0M [facility]; Protocol Last Admin: 12/02/23 11:44 Dose: 14 units/kg/hr, 11.12 mls/hr Documented By: RAMY Co-signed By: RADHA Melatonin (Melatonin 3 Mg Tablet) 6 mg PO BEDTIME PRN PRN Reason: Insomnia Morphine Sulfate (Morphine Sulfate 4 Mg/Ml Cartridge) 4 mg IVPUSH Q4H PRN; Protocol PRN Reason: Pain, Severe (Pain Scale 7-10) Last Admin: 11/30/23 19:41 Dose: 4 mg Documented By: WISAM Omeprazole (Omeprazole 20 Mg Capsule.Dr) 20 mg PO BEDTIME [facility] Last Admin: 12/01/23 21:34 Dose: 20 mg Documented By: DANIEL Ondansetron HCl (Ondansetron Hcl 4 Mg/2 Ml Vial) 4 mg IVPUSH Q8H PRN PRN Reason: Nausea and Vomiting Last Admin: 11/30/23 05:30 Dose: 4 mg Documented By: SAMUEL Risperidone (Risperidone Microspheres 25 Mg/2 Ml Syringe) 25 mg IM Q14D [facility] Sodium Chloride (0.9 % Sodium Chloride Flush 3 Ml Syringe) 3 ml IVFLUSH QSHIFT [facility] Last Admin: 12/02/23 11:40 Dose: Not Given Documented By: RAMY Non-Admin Reason: IV Running Labs 12/02/23 06:15 12/02/23 06:15 Labs: Laboratory Results - last 24 hr 12/01/23 12/02/23 14:59 06:15 MCV 92.2 MCH 30.8 MCHC 33.4 RDW 13.1 Plt Count 153 L MPV 11.0 Absolute Nucleated RBC 0.000 Nucleated RBC % (auto) 0.0 aPTT Heparin Protocol 60.0 D 51.3 L Anion Gap 12 Estim Creat Clear Calc 47.7 Estimated GFR 54 Random Glucose 85 Calcium 9.1 Troponin I High Sens 71.2 H* D TTE 12/01/23 - Normal left ventricular size and systolic function. There is mildly increased left ventricular wall thickness. The visually estimated ejection fraction is between 60-65%. - Right ventricular is poorly visualized. - There is no evidence of pericardial effusion. Assessment and Plan (1) Pulmonary embolism: Status: Acute Plan d4 78yo with HTN, HLD, hx TIA, hx DVT, hx breast CA, GERD, bipolar I disorder became lightheaded suddenly then fell on her L hip found to have L femoral neck fracture and submassive PE with R heart strain acute hypoxic resp failure due to submassive PE/R heart strain/NSTEMI - Will eventually need DOAC lifelong but for now continue high-dose heparin IV infusion perioperatively. - Underwent pulmonary embolectomy + IVC filter today [12/02/23] - Tn-I coming down nicely. Cardiology + Pulmonology + Anesthesiology to weigh in on timing of L hip hemiarthroplasty - Hematology consulted, plan outpatient thrombophilia workup - Wean O2 as tolerated L hip fx - High-risk for operative repair; Cardiology + Pulmonology + Anesthesiology following re: timing of operative repair STEFANI/CKD3 - SCr at baseline after holding lisinopril and giving isotonic IV fluid GERD - PPI HTN - hold lisinopril + furosemide; avoid intraoperative hypotension. HLD - statin bipolar disorder - valproate, IM depot risperidone dispo - eventually STR after hip repair In my clinical judgment, the patient requires continued inpatient hospitalization for the following reasons: IV heparin, operative repair of hip Total time managing care of this patient today: 45 minutes. Quality Stroke Does the patient have a stroke diagnosis?: No VTE Prior VTE?: No VTE Risk Level:: Medical - moderate - high VTE Device Contraindication: Treatment Not Indicated VTE Drug Contraindication: N/A - Med Ordered
--- NOTE | 2023-12-02 13:08 | PM.EVENT ---
Event Note Date of Service: 12/02/23 Event Note: Patient is status post pulmonary embolectomy and inferior vena cava placement. Resume anticoagulation. Stable from my perspective for orthopedic intervention as required. Time Spent With Patient Time: Total time managing care of this patient today ____ minutes.
[2023-12-02 14:02] LABS: PTT Heparin Drip 94.1 SEC (53-77.9)
[2023-12-02 16:28] LABS: PTT Heparin Drip 46.2 SEC (53-77.9)
--- NOTE | 2023-12-02 17:21 | PC.NURSE ---
PTT-HD drawn at 1330 which came back at 94.1. PTT too high and per protocol to hold for 1 hour and then decrease by 3units/kg. PTT put in for 1600 instead of 2100 and PTT was drawn too early. RN communicated with Phlebotomy to cancel the order and discard blood draw . Blood draw was still resulted and PTT came back early at 46.2. Pharmacy notified and per pharmacy disregard 1600 PTT draw and decrease doserate by 3. Heparin drip now running at 11 units/kg and next PTT ordered for 2214.
[2023-12-02] MEDS: Morphine Sulfate 4 MG/ML CARTRIDGE IVPUSH (17:34)
[2023-12-02] MEDS: Benzonatate 100 MG CAPSULE PO (20:11)
[2023-12-02] MEDS: Omeprazole 20 MG CAPSULE.DR PO (20:11)
[2023-12-02] MEDS: 0.9 % Sodium Chloride Flush 3 ML SYRINGE IVFLUSH (20:11)
[2023-12-02] MEDS: Atorvastatin Calcium 10 MG TABLET PO (20:11)
[2023-12-02] MEDS: Acetaminophen 325 MG TABLET 650 MG PO (20:11)
[2023-12-02] MEDS: Divalproex Sodium 500 MG TABLET.DR PO (20:11)
[2023-12-02 22:39] LABS: PTT Heparin Drip 42.7 SEC (53-77.9)
[2023-12-03 03:17] VITALS: BP 122/59; PULSE 104; RESP 18; TEMP 36.6; O2SAT 94
[2023-12-03] MEDS: Acetaminophen 325 MG TABLET 650 MG PO (04:11)
[2023-12-03 07:01] LABS: Hematocrit 30.6 % (37.0-47.0); Hemoglobin 10.3 g/dl (12.0-16.0); Mean Corpuscular HGB Conc 33.7 g/dl (31.0-35.0); Mean Corpuscular Hemoglobin 31.6 pg (27.0-33.0); Mean Corpuscular Volume 93.9 fL (80.0-98.0); Mean Platelet Volume 10.9 fL (9.4-12.3); Platelet Count 163 X10*3/uL (160-400); Red Blood Count 3.26 X10*6/uL (4.20-5.50); Red Cell Distribution Width 13.3 % (11.0-16.0); White Blood Count 10.5 X10*3/uL (4.8-10.8)
[2023-12-03 07:15] LABS: Anion Gap 13 (12-20); Blood Urea Nitrogen 31 mg/dL (9-16); Calcium 9.1 mg/dL (8.4-10.2); Carbon Dioxide 24 mmol/L (22-29); Chloride 108 mmol/L (96-108); Creatinine Clr Calc Pharmacy 46.3; Estimated Glomerular Filt Rate 52; Glucose Random 111 mg/dL (60-115); Potassium 4.4 mmol/L (3.3-5.1); Sodium 141 mmol/L (135-145)
[2023-12-03 07:30] LABS: PTT Heparin Drip 76.8 SEC (53-77.9)
[2023-12-03 07:46] VITALS: BP 134/65; PULSE 90; RESP 20; TEMP 36.2; O2SAT 96
--- NOTE | 2023-12-03 09:16 | HO.VASCPN ---
Subjective Subjective Date of Service: 12/03/23 Patient reports: no new complaints and feels better Interval history: Pleasant 78-year-old female postop day 1 status post pulmonary embolectomy and placement of IVC filter. Reports no issues overnight. She reports that she is breathing better. Now for routine follow-up. Physical Exam Vital Signs: Vital Signs: Last Vital Signs Temp 97.1 F 12/03/23 07:46 Pulse 90 12/03/23 07:46 Resp 20 12/03/23 07:46 BP 134/65 12/03/23 07:46 Pulse Ox 96 12/03/23 07:46 O2 Del Method Nasal Cannula, Ox ymask 12/03/23 07:46 O2 Flow Rate 5 12/03/23 03:17 Oxygen Flow Rate 3 11/30/23 07:00 BMI result Body Mass Index 31.0 Const: General: cooperative, healthy appearing and comfortable Orientation/consciousness: oriented to person, oriented to place and oriented to time HEENT: Head: Yes normal to inspection Neck: Neck: Yes normal visual inspection Carotids: no bruits Chest: Chest palpation & inspection: normal inspection of the chest Resp: Effort & Inspection: normal respiratory effort and able to speak in complete sentences Auscultation: clear to auscultation bilaterally, no crackles, no rales, no rhonchi and no wheezes Cardio: Rate: regular rate Rhythm: regular rhythm Heart sounds: S1 normal heart sound present and S2 normal heart sound present Bruits: no carotid bruits Peripheral pulses: Peripheral pulses 2+ throughout GI: Inspection: Yes normal to inspection Skin: Other: Right groin no hematoma Wounds: no wounds Hair: normal Neuro: General: oriented to person, oriented to place and oriented to time Cranial nerves: Yes CN's II-XII intact bilaterally and Yes Normal hearing present Cognition (Neuro): normal cognition Motor exam (neuro): 5/5 motor strength present throughout Extrem: Other: venous exam: No significant superficial varicosities or spider telangiectasias, minimal edema General: No clubbing, No cyanosis and No edema Psych: Appearance: grossly normal Mental Status: mental status grossly normal Speech and movement: Normal speech and movement present Progress Note: A&P Assessment and plan (1) Pulmonary embolism: Status: Acute Assessment and Plan: In short patient is doing extremely well status post pulmonary embolectomy and IVC filter placement. Stable from my perspective to undergo orthopedic intervention. Resume anticoagulation as soon as possible postoperatively. We will follow on an as-needed basis with you. Thank you for allowing us to assist in her care Time Spent With Patient Time: Total time managing care of this patient today ____ minutes. Procedures Date of Service Date of Service: 12/03/23 Quality Stroke Does the patient have a stroke diagnosis?: No VTE Prior VTE?: No VTE Risk Level:: Medical - moderate - high VTE Device Contraindication: Treatment Not Indicated VTE Drug Contraindication: N/A - Med Ordered
[2023-12-03] MEDS: Folic Acid 1 MG TABLET PO (09:23)
[2023-12-03] MEDS: Docusate Sodium 100 MG CAPSULE PO (09:23)
--- NOTE | 2023-12-03 09:56 | PM.PNCARD ---
Subjective Subjective Date of Service: 12/03/23 Principal diagnosis: Pulmonary embolism, preop Interval history: Patient denies any chest pain shortness of breath. Underwent IVC filter placement with pulmonary thrombectomy catheter based yesterday. Plan for hip surgery today for her left hip fracture. Complains of left hip pain. Hemodynamically stable. However still heart rate on the higher side. Still requiring oxygen. Review of Systems Constitutional: Reports weakness Eyes: Reports no additional eye complaints Cardiovascular: Reports no additional cardiovascular complaints Respiratory: Reports no additional respiratory complaints Musculoskeletal: Reports other (Left hip pain) Reports weakness Physical Exam Vital Signs: Last Vital Signs Temp 97.1 F 12/03/23 07:46 Pulse 90 12/03/23 07:46 Resp 20 12/03/23 07:46 BP 134/65 12/03/23 07:46 Pulse Ox 96 12/03/23 07:46 O2 Del Method Nasal Cannula, Oxymask 12/03/23 07:46 O2 Flow Rate 5 12/03/23 03:17 Oxygen Flow Rate 3 11/30/23 07:00 BMI result Body Mass Index 31.0 Const General: cooperative, comfortable, no acute distress, alert and awake Nutritional Appearance: overweight Orientation/consciousness: patient oriented x3 HEENT Head: Yes normocephalic and Yes atraumatic Neck Neck: Yes trachea midline and Yes JVD Resp Effort & Inspection: decreased respiratory effort Auscultation: clear to auscultation bilaterally Cardio Jugular venous distension: JVD Rate: tachycardic Rhythm: regular rhythm Heart sounds: S1 normal heart sound present, S2 normal heart sound present, no click, no gallops, no murmurs and no rubs GI Auscultation: normal bowel sounds Neuro General: patient oriented x3 and no focal motor deficits Extrem General: Yes no clubbing, cyanosis or edema Objective Labs and Meds 12/03/23 06:10 12/03/23 06:10 Lab results: Laboratory Results - last 24 hr 12/02/23 12/02/23 12/02/23 13:41 16:08 22:17 WBC RBC Hgb Hct MCV MCH MCHC RDW Plt Count MPV Absolute Nucleated RBC Nucleated RBC % (auto) aPTT Heparin Protocol 94.1 H D 46.2 L D 42.7 L Sodium Potassium Chloride Carbon Dioxide Anion Gap BUN Creatinine Estim Creat Clear Calc Estimated GFR Random Glucose Calcium Troponin I High Sens 12/03/23 06:10 WBC 10.5 RBC 3.26 L Hgb 10.3 L Hct 30.6 L MCV 93.9 MCH 31.6 MCHC 33.7 RDW 13.3 Plt Count 163 MPV 10.9 Absolute Nucleated RBC 0.000 Nucleated RBC % (auto) 0.0 aPTT Heparin Protocol 76.8 D Sodium 141 Potassium 4.4 Chloride 108 Carbon Dioxide 24 Anion Gap 13 BUN 31 H Creatinine 1.03 Estim Creat Clear Calc 46.3 Estimated GFR 52 Random Glucose 111 Calcium 9.1 Troponin I High Sens 137.0 H* D Progress Note: A&P Assessment and plan (1) Preop cardiovascular exam: Status: Acute Assessment and Plan: Preoperative cardiovascular risk stratification prior to hip surgery which is intermediate risk surgery patient with recent submassive pulmonary embolism, status post IVC filter and pulmonary thrombectomy yesterday. Still requiring oxygen but hemodynamically stable. Patient remains high risk for perioperative cardiovascular morbidity mortality. Avoid anesthetic agents that cause significant reduction in preload. Aggressively treat hypotension with vasopressors if required. Continue oxygen therapy. Status post IVC filter which should reduce the likelihood of recurrent pulmonary embolism. 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 Should be on lifelong oral anticoagulation therapy once approved by surgery. Will follow with you Time Spent With Patient Time: Total time managing care of this patient today ____ minutes. Progress Note: Quality Stroke Does the patient have a stroke diagnosis?: No Procedures Date of Service Date of Service: 12/03/23
[2023-12-03 11:17] VITALS: BP 124/71; PULSE 94; RESP 18; TEMP 36.2; O2SAT 92
--- NOTE | 2023-12-03 11:21 | MHC.CM.PN ---
Pt not yet ready for DC, she will have surgery for hip fracture, and then go to STR, accepted at [facility].
[2023-12-03] MEDS: Heparin Sodium,Porcine/1/2NS 25,000 UNIT/250 ML IV.SOLN 10.32 UNIT IVCONT (11:50)
--- NOTE | 2023-12-03 11:50 | P.OP_ITS ---
Operative Note Operative Note Date of Service: 12/02/23 Narrative: Operative note by [facility] Preoperative diagnosis: DVT with PE Postoperative diagnosis: Same Procedure:1. Ultrasound-guided right common femoral vein access 2. Inferior vena cavogram 3. Selective right pulmonary artery angiogram 4. Selective left pulmonary artery angiogram 5. Mechanical thrombectomy of pulmonary embolism of left main pulmonary artery 6. Return of blood using flow Saver system 7. Radiologic supervision and interpretation. 8. Insertion of inferior vena cava filter Surgeon:Harlan Medellin M.D. Trim Mounter: None Anesthesia: Local with moderate conscious sedation. Total intraservice moderate sedation time was 85 minutes. I monitored the patient's level of consciousness and physiologic status continuously throughout the procedure. Specimens: none Drains :none Estimated blood loss: Less than 50 ml Implant: None Indications: Patient was noted to have submassive pulmonary embolism.. CT of the chest was reviewed and demonstrated left-sided main pulmonary artery throm bus along with segmental and subsegmental thrombus. Heparin drip was initiated immediately. Due to the clot burden the patient now presents for pulmonary embolectomy. The patient has signed the informed consent after reviewing risks, complications, benefits, and alternatives previously discussed with the patient. The patient was given the opportunity to ask any additional questions or voice any concerns. All questions were answered to the patient's satisfaction. Procedure in detail: Patient was brought to the angiography suite prior to which a time-out was called for patient identification and site verification. Bilateral groins were prepped and draped in the standard surgical fashion. Under ultrasound guidance right common femoral vein was punctured with micro puncture needle and wire. Subsequently a precision 4 [place] [employer] sheath was then placed. Bentson wire was advanced to the level of the vena cava. 4 [place] [employer] Flush catheter was brought up and parked at the level of the renal arteries. Vena cavogram was then undertaken. The patient was systemically anticoagulated with heparin. We then advanced a Bentson wire all the way up into the inferior vena cava to the atrial junction. We then advanced a pigtail catheter through that from the right atrium to the right ventricle into the pulmonary artery. We then readvanced the Bentson wire through this. In order to confirm appropriate positioning and no trauma to cardiac tissue we advanced an insufflated 8 x 40 balloon. We met no resistance. At this time we did a selective image the right main pulmonary artery and subsequently the left main pulmonary artery. We then advanced the INTRI 24 [place] sheath. Over this we then placed TRIEVER 24 large- bore catheter. This was directed towards the left pulmonary artery. We then successfully aspirated moderate clot burden. Once the syringe was filled we placed this through the flow Saver blood filtering system and returned the blood back to the patient. Several aspirations were performed until we had no thrombus return. Once this was all done completion imaging was then undertaken. No residual thrombus was noted. 5 [place] [employer] sheath for the Bard Dewey sheath was then exchanged. We brought the filter into position. This was then subsequently deployed. The inner cannula was then removed. Through the sheath a hand injection was performed to assess filter position. Once this was accomplished the sheath was then removed, and hemostasis was achieved with 10 minutes of direct compression. No immediate complications occurred and the patient was returned to the recovery suite with no complications Interpretation of films: 1. Ultrasound demonstrates appropriate femoral vein puncture. Image of which was saved. 2. Vena cavogram demonstrated normal caliber vena cava with no evidence of thrombus. 3. Pulmonary artery imaging demonstrated - thrombus with the left mainstem pulmonary artery 4. Completion imaging demonstrated improvement of flow through left pulmonary tree. In addition appropriate location IVC filter Conclusion: 1. Successful pulmonary embolectomy and inferior vena cava placement 2. Anticoagulation status: Continue heparin drip. Stable from my perspective for orthopedic intervention This note is constructed using voice recognition software. While every effort has been made to ensure accuracy, driver wheelchair errors may have been included. Thank you for allowing me to participate in the care of your patient. Yours sincerely, Harlan Medellin MD, FACS, R.P.V.I.
--- NOTE | 2023-12-03 12:14 | P.PNIM_ITS ---
Subjective Subjective Date of Service: 12/03/23 Interval History: tachycardia resolved and on just 1/2L of O2 no chest pain hip pain controlled as long as she doesn't move Review of Systems Review of Systems: Yes all other systems are reviewed and are negative Physical Exam 2 Vital Signs: Vital Signs: Last Vital Signs Temp 97.1 F 12/03/23 11:17 Pulse 94 12/03/23 11:17 Resp 18 12/03/23 11:17 BP 124/71 12/03/23 11:17 Pulse Ox 92 12/03/23 11:17 O2 Del Method Nasal Cannula 12/03/23 11:17 O2 Flow Rate 3.5 12/03/23 11:17 Oxygen Flow Rate 3 11/30/23 07:00 BMI result Body Mass Index 31.0 Gen: in no acute distress HEENT: sclera anicteric, moist mucus membranes Neck: supple Lungs: clear to auscultation bilaterally Heart: regular, no murmurs Abd: soft, non-tender, non-distended Ext: LLE shortened, externally rotated Skin: warm/well-perfused Neuro: alert and oriented x3, no focal findings Psych: appropriate affect Objective Data Active Medications Acetaminophen (Acetaminophen 325 Mg Tablet) 650 mg PO Q6H PRN PRN Reason: Pain, Mild (Pain Scale 1-3) Last Admin: 12/03/23 04:11 Dose: 650 mg Documented By: SHELBY Atorvastatin Calcium (Atorvastatin Calcium 10 Mg Tablet) 10 mg PO BEDTIME [facility] [place] Last Admin: 12/02/23 20:11 Dose: 10 mg Documented By: SHELBY Benzonatate (Benzonatate 100 Mg Capsule) 100 mg PO TID PRN PRN Reason: Cough Last Admin: 12/02/23 20:11 Dose: 100 mg Documented By: SHELBY Divalproex Sodium (Divalproex Sodium 500 Mg Tablet.Dr) 500 mg PO BEDTIME [facility] [place] Last Admin: 12/02/23 20:11 Dose: 500 mg Documented By: SHELBY Docusate Sodium (Docusate Sodium 100 Mg Capsule) 100 mg PO DAILY PRN PRN Reason: Constipation Docusate Sodium (Docusate Sodium 100 Mg Capsule) 100 mg PO DAILY [facility] [place] Last Admin: 12/03/23 09:23 Dose: 100 mg Documented By: RADHA Folic Acid (Folic Acid 1 Mg Tablet) 1 mg PO DAILY [facility] [place] Last Admin: 12/03/23 09:23 Dose: 1 mg Documented By: RADHA Heparin Sodium (Porcine) (Heparin Sodium,Porcine 5,000 Unit/Ml Vial) 3,200 unit 40 unit/kg (3200 unit) IVPUSH PROTOCOL BOLUS PRN; Protocol PRN Reason: 40 unit/kg - Heparin Protocol Last Admin: 12/02/23 23:03 Dose: 3,200 unit Documented By: SHELBY Heparin Sodium (Porcine) (Heparin Sodium,Porcine 5,000 Unit/Ml Vial) 6,400 unit 80 unit/kg (6400 unit) IVPUSH PROTOCOL BOLUS PRN; Protocol PRN Reason: 80 unit/kg - Heparin Protocol Heparin Sodium/Sodium Chloride (Heparin Sodium,Porcine/1/2ns) 25,000 unit in 250 mls @ 0 mls/hr IVCONT .Q0M LINDA; Protocol Last Admin: 12/03/23 11:50 Dose: 13 units/kg/hr, 10.32 mls/hr Documented By: RADHA Co-signed By: RAMY Melatonin (Melatonin 3 Mg Tablet) 6 mg PO BEDTIME PRN PRN Reason: Insomnia Morphine Sulfate (Morphine Sulfate 4 Mg/Ml Cartridge) 4 mg IVPUSH Q4H PRN; Protocol PRN Reason: Pain, Severe (Pain Scale 7-10) Last Admin: 12/02/23 17:34 Dose: 4 mg Documented By: RAMY Omeprazole (Omeprazole 20 Mg Capsule.Dr) 20 mg PO BEDTIME [facility] [place] Last Admin: 12/02/23 20:11 Dose: 20 mg Documented By: SHELBY Ondansetron HCl (Ondansetron Hcl 4 Mg/2 Ml Vial) 4 mg IVPUSH Q8H PRN PRN Reason: Nausea and Vomiting Last Admin: 11/30/23 05:30 Dose: 4 mg Documented By: SAMUEL Risperidone (Risperidone Microspheres 25 Mg/2 Ml Syringe) 25 mg IM Q14D [facility] [place] Sodium Chloride (0.9 % Sodium Chloride Flush 3 Ml Syringe) 3 ml IVFLUSH QSHIFT [facility] [place] Last Admin: 12/03/23 09:23 Dose: Not Given Documented By: RADHA Non-Admin Reason: IV Running Labs 12/03/23 06:10 12/03/23 06:10 Labs: Laboratory Results - last 24 hr 12/02/23 12/02/23 12/02/23 13:41 16:08 22:17 MCV MCH MCHC RDW Plt Count MPV Absolute Nucleated RBC Nucleated RBC % (auto) aPTT Heparin Protocol 94.1 H D 46.2 L D 42.7 L Anion Gap Estim Creat Clear Calc Estimated GFR Random Glucose Calcium Troponin I High Sens 12/03/23 06:10 MCV 93.9 MCH 31.6 MCHC 33.7 RDW 13.3 Plt Count 163 MPV 10.9 Absolute Nucleated RBC 0.000 Nucleated RBC % (auto) 0.0 aPTT Heparin Protocol 76.8 D Anion Gap 13 Estim Creat Clear Calc 46.3 Estimated GFR 52 Random Glucose 111 Calcium 9.1 Troponin I High Sens 137.0 H* D Assessment and Plan (1) Pulmonary embolism: Status: Acute Plan d5 78yo with HTN, HLD, hx TIA, hx DVT, hx breast CA, GERD, bipolar I disorder became lightheaded suddenly then fell on her L hip found to have L femoral neck fracture and submassive PE with R heart strain acute hypoxic resp failure due to submassive PE/R heart strain/NSTEMI - Will eventually need DOAC lifelong but for now continue high-dose heparin IV infusion perioperatively. - Underwent pulmonary embolectomy + IVC filter 12/02/23 - Plan L hip hemiarthroplasty tomorrow - Wean O2 as tolerated L hip fx - High-risk for operative repair; Cardiology + Pulmonology + Anesthesiology aware; avoid intraoperative hypotension STEFANI/CKD3 - SCr at baseline after holding lisinopril and giving isotonic IV fluid GERD - PPI HTN - hold lisinopril + furosemide; avoid intraoperative hypotension HLD - statin bipolar disorder - valproate, IM depot risperidone dispo - eventually STR after hip repair In my clinical judgment, the patient requires continued inpatient hospitalization for the following reasons: IV heparin, operative repair of hip Total time managing care of this patient today: 45 minutes. Quality Stroke Does the patient have a stroke diagnosis?: No VTE Prior VTE?: No VTE Risk Level:: Medical - moderate - high VTE Device Contraindication: Treatment Not Indicated VTE Drug Contraindication: N/A - Med Ordered
[2023-12-03 15:16] VITALS: BP 115/50; PULSE 108; RESP 16; TEMP 36.3; O2SAT 94
[2023-12-03 15:24] LABS: PTT Heparin Drip 63.9 SEC (53-77.9)
[2023-12-03] MEDS: 0.9 % Sodium Chloride Flush 3 ML SYRINGE IVFLUSH (16:17)
[2023-12-03 19:40] VITALS: BP 132/62; PULSE 102; RESP 16; TEMP 36.6; O2SAT 98
[2023-12-03] MEDS: Atorvastatin Calcium 10 MG TABLET PO (20:55)
[2023-12-03] MEDS: Omeprazole 20 MG CAPSULE.DR PO (20:55)
[2023-12-03] MEDS: Morphine Sulfate 4 MG/ML CARTRIDGE IVPUSH (21:36)
[2023-12-03] MEDS: Divalproex Sodium 500 MG TABLET.DR PO (21:36)
[2023-12-03 23:52] VITALS: BP 132/63; PULSE 102; RESP 16; TEMP 36.8; O2SAT 97
[2023-12-04] VITALS (15 sets, daily range): BP systolic 101–142; BP diastolic 44–79; PULSE 99–130; RESP 8–20; TEMP 36.3–37.9; O2SAT 91–95
[2023-12-04 06:21] LABS: PTT Heparin Drip 30.2 SEC (53-77.9)
[2023-12-04 06:23] LABS: Anion Gap 13 (12-20); Blood Urea Nitrogen 34 mg/dL (9-16); Calcium 9.2 mg/dL (8.4-10.2); Carbon Dioxide 23 mmol/L (22-29); Chloride 109 mmol/L (96-108); Estimated Glomerular Filt Rate 50; Glucose Random 99 mg/dL (60-115); Potassium 4.2 mmol/L (3.3-5.1); Sodium 141 mmol/L (135-145)
[2023-12-04 06:32] LABS: Mean Corpuscular HGB Conc 33.3 g/dl (31.0-35.0); Mean Corpuscular Hemoglobin 31.2 pg (27.0-33.0); Mean Corpuscular Volume 93.5 fL (80.0-98.0); Mean Platelet Volume 10.5 fL (9.4-12.3); Platelet Count 173 X10*3/uL (160-400); Red Blood Count 3.21 X10*6/uL (4.20-5.50); Red Cell Distribution Width 13.2 % (11.0-16.0); White Blood Count 7.6 X10*3/uL (4.8-10.8)
--- NOTE | 2023-12-04 07:18 | P.CONAN_ITS ---
HPI - Anesthesia Eval Consult details Narrative: for left hemiarthroplasy PMFSH Active Problems Active Problems: All Active Problems Pre-op chest exam (Acute) Preop cardiovascular exam (Acute) Pulmonary embolism (Acute) NSTEMI (non-ST elevated myocardial infarction) (Acute) Fracture of left femur (Acute) Chronic low back pain (Acute) Rash of neck (Acute) Hearing impairment (Acute) Generalized muscle weakness (Acute) Bipolar disorder (Acute) Cognitive disorder (Acute) Tremors of nervous system (Acute) Gait disorder (Acute) Obesity (Acute) Hyperlipidemia (Acute) HTN (hypertension) (Acute) GERD (gastroesophageal reflux disease) (Acute) Breast cancer (Acute) Bipolar 1 disorder (Acute) Past Medical History Medical History Chronic low back pain Rash of neck Hearing impairment Generalized muscle weakness Cognitive disorder TIA (transient ischemic attack) Tremors of nervous system Gait disorder DVT (deep venous thrombosis) Obesity Hyperlipidemia HTN (hypertension) GERD (gastroesophageal reflux disease) Breast cancer Bipolar 1 disorder Cognitive capacity: Hypoanimated Narrative: Echo from 11/30 unremarkable, altho RV not seen. IVC was normal. Haparin gtt stopped at 0330. Family History Family History Brother Alcohol abuse Polio Substance use disorder Brother Cancer Sister Stroke Mental health disorder Mother HTN (hypertension) Sister Cancer Family history of problems with anesthesia: No Surgical History Surgical History H/O mastectomy History of Problems with Anesthesia: No Social History Social History Household Members: None Housing: Condominium Do you presently have visiting nurse or other home services: Yes Unable to assess alcohol history related to: Refusing to respond Alcohol intake: current Alcohol type: wine Patient Tobacco Use Status: Former Tobacco user Quit Date: 11 years ago Tobacco use type: Smokeless Tobacco Years Smoked: 30 e-Cigarette/Vaping Use: Never Used Second Hand Smoke Exposure: No Advance Directives Date on File: 05/01/22 service: No Sexual orientation: Straight/Heterosexual Cognitive needs: No Hearing needs: No Vision needs: Yes Meds Allergies Allergy/AdvReac Type Severity Reaction Status Date / Time No Known Allergies Allergy Verified 12/04/23 06:44 [No Known Allergies*] Active Medications: Current Medications Acetaminophen (Acetaminophen 325 Mg Tablet) 650 mg PO Q6H PRN PRN Reason: Pain, Mild (Pain Scale 1-3) Last Admin: 12/03/23 04:11 Dose: 650 mg Atorvastatin Calcium (Atorvastatin Calcium 10 Mg Tablet) 10 mg PO BEDTIME [facility] Last Admin: 12/03/23 20:55 Dose: 10 mg Benzonatate (Benzonatate 100 Mg Capsule) 100 mg PO TID PRN PRN Reason: Cough Last Admin: 12/02/23 20:11 Dose: 100 mg Divalproex Sodium (Divalproex Sodium 500 Mg Tablet.Dr) 500 mg PO BEDTIME [facility] Last Admin: 12/03/23 21:36 Dose: 500 mg Docusate Sodium (Docusate Sodium 100 Mg Capsule) 100 mg PO DAILY PRN PRN Reason: Constipation Docusate Sodium (Docusate Sodium 100 Mg Capsule) 100 mg PO DAILY [facility] Last Admin: 12/03/23 09:23 Dose: 100 mg Folic Acid (Folic Acid 1 Mg Tablet) 1 mg PO DAILY [facility] Last Admin: 12/03/23 09:23 Dose: 1 mg Heparin Sodium (Porcine) (Heparin Sodium,Porcine 5,000 Unit/Ml Vial) 3,200 unit 40 unit/kg (3200 unit) IVPUSH PROTOCOL BOLUS PRN; Protocol PRN Reason: 40 unit/kg - Heparin Protocol Last Admin: 12/02/23 23:03 Dose: 3,200 unit Heparin Sodium (Porcine) (Heparin Sodium,Porcine 5,000 Unit/Ml Vial) 6,400 unit 80 unit/kg (6400 unit) IVPUSH PROTOCOL BOLUS PRN; Protocol PRN Reason: 80 unit/kg - Heparin Protocol Heparin Sodium/Sodium Chloride (Heparin Sodium,Porcine/1/2ns) 25,000 unit in 250 mls @ 0 mls/hr IVCONT .Q0M [facility]; Protocol Last Titration: 12/04/23 03:30 Dose: 0 units/kg/hr, 0 mls/hr Melatonin (Melatonin 3 Mg Tablet) 6 mg PO BEDTIME PRN PRN Reason: Insomnia Morphine Sulfate (Morphine Sulfate 4 Mg/Ml Cartridge) 4 mg IVPUSH Q4H PRN; Protocol PRN Reason: Pain, Severe (Pain Scale 7-10) Last Admin: 12/03/23 21:36 Dose: 4 mg Omeprazole (Omeprazole 20 Mg Capsule.Dr) 20 mg PO BEDTIME [facility] Last Admin: 12/03/23 20:55 Dose: 20 mg Ondansetron HCl (Ondansetron Hcl 4 Mg/2 Ml Vial) 4 mg IVPUSH Q8H PRN PRN Reason: Nausea and Vomiting Last Admin: 11/30/23 05:30 Dose: 4 mg Risperidone (Risperidone Microspheres 25 Mg/2 Ml Syringe) 25 mg IM Q14D [facility] Sodium Chloride (0.9 % Sodium Chloride Flush 3 Ml Syringe) 3 ml IVFLUSH QSHIFT [facility] Last Admin: 12/04/23 02:47 Dose: Not Given Home Medications ?Medication ?Instructions ?Recorded ?Confirmed ?Last Taken ?Type folic acid 1 mg tablet 1 mg PO DAILY 09/30/22 11/29/23 11/28/23 History risperidone microspheres 25 mg/2 25 mg IM Q14D 09/30/22 11/29/23 11/27/23 History mL intramuscular susp,ext release (Risperdal Consta) nortriptyline 10 mg capsule 10 mg PO BEDTIME 08/15/23 11/29/23 11/28/23 History divalproex 500 mg tablet,delayed 500 mg PO BEDTIME 11/29/23 11/29/23 11/28/23 History release docusate sodium 100 mg capsule 100 mg PO DAILY 11/29/23 11/29/23 11/28/23 History furosemide 20 mg tablet 20 mg PO DAILY 11/29/23 11/29/23 11/28/23 History lisinopril 5 mg tablet 5 mg PO DAILY 11/29/23 11/29/23 11/28/23 History Exam Height,Weight and Vital Signs: Height 5 ft 3 in Weight 79.4 kg Last Vital Signs Temp 98.7 F 12/04/23 06:53 Pulse 113 H 12/04/23 06:53 Resp 18 12/04/23 06:53 BP 124/64 12/04/23 06:53 Pulse Ox 95 12/04/23 06:53 O2 Del Method Nasal Cannula 12/04/23 06:53 O2 Flow Rate 3 12/04/23 06:53 Oxygen Flow Rate 3 11/30/23 07:00 Pertinent Lab Results Pertinent Lab Results: Laboratory Tests 11/29/23 11/29/23 11/29/23 11:47 14:22 15:45 WBC 12.0 H RBC 4.11 L Hgb 12.8 Hct 38.0 MCV 92.5 MCH 31.1 MCHC 33.7 RDW 13.4 Plt Count 162 D MPV 10.6 Immature Gran % (Auto) 0.6 H Neut % (Auto) 74.1 H Lymph % (Auto) 19.6 L [place] % (Auto) 4.6 Eos % (Auto) 0.9 Baso % (Auto) 0.2 Lymph # (Auto) 2.4 [place] # (Auto) 0.6 Eos # (Auto) 0.1 Baso # (Auto) 0.0 Abs Immat Gran (auto) 0.07 H Absolute Neuts (auto) 8.9 H Absolute Nucleated RBC 0.000 Nucleated RBC % (auto) 0.0 Hold Purple Top PT 11.0 L Cancelled INR 0.9 Cancelled aPTT Heparin Protocol Cancelled Sodium 141 Potassium 4.3 Chloride 106 Carbon Dioxide 25 Anion Gap 14 BUN 33 H Creatinine 1.42 H Estim Creat Clear Calc TNP Estimated GFR 36 Random Glucose 139 H Calcium 9.6 Total Bilirubin 0.5 AST 24 ALT 21 Alkaline Phosphatase 65 Troponin I High Sens 54.6 H* 915.4 H* D B-Natriuretic Peptide Total Protein 7.2 Albumin 3.9 Hold Yellow Top Urine Color Urine Appearance Urine pH Ur Specific [place] Urine Protein Urine Glucose (UA) Urine Ketones Urine Blood Urine Nitrite Ur Leukocyte Esterase Urine RBC Urine WBC Ur Squamous Epith Cells Urine Bacteria Hyaline Casts Influenza Type A (PCR) NEGATIVE Influenza Type B (PCR) NEGATIVE RSV RNA Qual (PCR) NEGATIVE SARS-CoV-2 RNA (RT-PCR) NEGATIVE Blood Type A Positive Antibody Screen NEGATIVE 11/29/23 11/29/23 11/30/23 20:55 22:13 04:20 WBC 11.0 H RBC 4.13 L Hgb 13.2 12.7 Hct 41.6 38.3 MCV 92.7 MCH 30.8 MCHC 33.2 RDW 13.3 Plt Count 149 L MPV 10.5 Immature Gran % (Auto) Neut % (Auto) Lymph % (Auto) [place] % (Auto) Eos % (Auto) Baso % (Auto) Lymph # (Auto) [place] # (Auto) Eos # (Auto) Baso # (Auto) Abs Immat Gran (auto) Absolute Neuts (auto) Absolute Nucleated RBC 0.000 Nucleated RBC % (auto) 0.0 Hold Purple Top PT INR aPTT Heparin Protocol 64.7 79.2 H D Sodium 139 Potassium 5.0 Chloride 104 Carbon Dioxide 19 L Anion Gap 16 BUN 26 H Creatinine 1.10 Estim Creat Clear Calc 43.4 Estimated GFR 48 Random Glucose 143 H Calcium 9.2 Total Bilirubin AST ALT Alkaline Phosphatase Troponin I High Sens 1871.6 H* D 1084.9 H* B-Natriuretic Peptide Total Protein Albumin Hold Yellow Top Urine Color Urine Appearance Urine pH Ur Specific [place] Urine Protein Urine Glucose (UA) Urine Ketones Urine Blood Urine Nitrite Ur Leukocyte Esterase Urine RBC Urine WBC Ur Squamous Epith Cells Urine Bacteria Hyaline Casts Influenza Type A (PCR) Influenza Type B (PCR) RSV RNA Qual (PCR) SARS-CoV-2 RNA (RT-PCR) Blood Type Antibody Screen 11/30/23 11/30/23 11/30/23 07:12 11:07 13:00 WBC RBC Hgb Hct MCV MCH MCHC RDW Plt Count MPV Immature Gran % (Auto) Neut % (Auto) Lymph % (Auto) [place] % (Auto) Eos % (Auto) Baso % (Auto) Lymph # (Auto) [place] # (Auto) Eos # (Auto) Baso # (Auto) Abs Immat Gran (auto) Absolute Neuts (auto) Absolute Nucleated RBC Nucleated RBC % (auto) Hold Purple Top SEE NOTE PT 11.6 INR 1.0 aPTT Heparin Protocol 41.2 L D Sodium Potassium Chloride Carbon Dioxide Anion Gap BUN Creatinine Estim Creat Clear Calc Estimated GFR Random Glucose Calcium Total Bilirubin AST ALT Alkaline Phosphatase Troponin I High Sens B-Natriuretic Peptide Total Protein Albumin Hold Yellow Top Urine Color Yellow Urine Appearance Clear Urine pH 6.5 Ur Specific [place] >= 1.030 H Urine Protein Trace Urine Glucose (UA) Negative Urine Ketones Trace Urine Blood Small (1+) H Urine Nitrite Negative Ur Leukocyte Esterase Negative Urine RBC 3-5 H Urine WBC 0-5 Ur Squamous Epith Cells 0-2 Urine Bacteria None Seen Hyaline Casts 0-2 Influenza Type A (PCR) Influenza Type B (PCR) RSV RNA Qual (PCR) SARS-CoV-2 RNA (RT-PCR) Blood Type Antibody Screen 11/30/23 12/01/23 12/01/23 18:07 01:04 08:25 WBC 11.0 H RBC 3.73 L Hgb 11.4 L Hct 35.5 L MCV 95.2 MCH 30.6 MCHC 32.1 RDW 13.3 Plt Count 159 L MPV 11.1 Immature Gran % (Auto) Neut % (Auto) Lymph % (Auto) [place] % (Auto) Eos % (Auto) Baso % (Auto) Lymph # (Auto) [place] # (Auto) Eos # (Auto) Baso # (Auto) Abs Immat Gran (auto) Absolute Neuts (auto) Absolute Nucleated RBC 0.000 Nucleated RBC % (auto) 0.0 Hold Purple Top PT INR aPTT Heparin Protocol 88.6 H D 49.5 L D 77.3 D Sodium 139 Potassium 4.5 Chloride 107 Carbon Dioxide 26 Anion Gap 11 L BUN 26 H Creatinine 1.42 H Estim Creat Clear Calc 33.6 Estimated GFR 36 Random Glucose 127 H Calcium 8.9 Total Bilirubin AST ALT Alkaline Phosphatase Troponin I High Sens B-Natriuretic Peptide 97 Total Protein Albumin Hold Yellow Top See Note Urine Color Urine Appearance Urine pH Ur Specific [place] Urine Protein Urine Glucose (UA) Urine Ketones Urine Blood Urine Nitrite Ur Leukocyte Esterase Urine RBC Urine WBC Ur Squamous Epith Cells Urine Bacteria Hyaline Casts Influenza Type A (PCR) Influenza Type B (PCR) RSV RNA Qual (PCR) SARS-CoV-2 RNA (RT-PCR) Blood Type Antibody Screen 12/01/23 12/01/23 12/01/23 08:26 10:07 14:59 WBC RBC Hgb Hct MCV MCH MCHC RDW Plt Count MPV Immature Gran % (Auto) Neut % (Auto) Lymph % (Auto) [place] % (Auto) Eos % (Auto) Baso % (Auto) Lymph # (Auto) [place] # (Auto) Eos # (Auto) Baso # (Auto) Abs Immat Gran (auto) Absolute Neuts (auto) Absolute Nucleated RBC Nucleated RBC % (auto) Hold Purple Top PT INR aPTT Heparin Protocol 60.0 D Sodium Potassium Chloride Carbon Dioxide Anion Gap BUN Creatinine Estim Creat Clear Calc Estimated GFR Random Glucose Calcium Total Bilirubin AST ALT Alkaline Phosphatase Troponin I High Sens 176.6 H* D 157.1 H* B-Natriuretic Peptide Total Protein Albumin Hold Yellow Top Urine Color Urine Appearance Urine pH Ur Specific [place] Urine Protein Urine Glucose (UA) Urine Ketones Urine Blood Urine Nitrite Ur Leukocyte Esterase Urine RBC Urine WBC Ur Squamous Epith Cells Urine Bacteria Hyaline Casts Influenza Type A (PCR) Influenza Type B (PCR) RSV RNA Qual (PCR) SARS-CoV-2 RNA (RT-PCR) Blood Type Antibody Screen 12/02/23 12/02/23 12/02/23 06:15 13:41 16:08 WBC 10.2 RBC 3.47 L Hgb 10.7 L Hct 32.0 L MCV 92.2 MCH 30.8 MCHC 33.4 RDW 13.1 Plt Count 153 L MPV 11.0 Immature Gran % (Auto) Neut % (Auto) Lymph % (Auto) [place] % (Auto) Eos % (Auto) Baso % (Auto) Lymph # (Auto) [place] # (Auto) Eos # (Auto) Baso # (Auto) Abs Immat Gran (auto) Absolute Neuts (auto) Absolute Nucleated RBC 0.000 Nucleated RBC % (auto) 0.0 Hold Purple Top PT INR aPTT Heparin Protocol 51.3 L 94.1 H D 46.2 L D Sodium 140 Potassium 4.3 Chloride 107 Carbon Dioxide 25 Anion Gap 12 BUN 28 H Creatinine 1.00 Estim Creat Clear Calc 47.7 Estimated GFR 54 Random Glucose 85 Calcium 9.1 Total Bilirubin AST ALT Alkaline Phosphatase Troponin I High Sens 71.2 H* D B-Natriuretic Peptide Total Protein Albumin Hold Yellow Top Urine Color Urine Appearance Urine pH Ur Specific [place] Urine Protein Urine Glucose (UA) Urine Ketones Urine Blood Urine Nitrite Ur Leukocyte Esterase Urine RBC Urine WBC Ur Squamous Epith Cells Urine Bacteria Hyaline Casts Influenza Type A (PCR) Influenza Type B (PCR) RSV RNA Qual (PCR) SARS-CoV-2 RNA (RT-PCR) Blood Type Antibody Screen 12/02/23 12/03/23 12/03/23 22:17 06:10 14:54 WBC 10.5 RBC 3.26 L Hgb 10.3 L Hct 30.6 L MCV 93.9 MCH 31.6 MCHC 33.7 RDW 13.3 Plt Count 163 MPV 10.9 Immature Gran % (Auto) Neut % (Auto) Lymph % (Auto) [place] % (Auto) Eos % (Auto) Baso % (Auto) Lymph # (Auto) [place] # (Auto) Eos # (Auto) Baso # (Auto) Abs Immat Gran (auto) Absolute Neuts (auto) Absolute Nucleated RBC 0.000 Nucleated RBC % (auto) 0.0 Hold Purple Top PT INR aPTT Heparin Protocol 42.7 L 76.8 D 63.9 Sodium 141 Potassium 4.4 Chloride 108 Carbon Dioxide 24 Anion Gap 13 BUN 31 H Creatinine 1.03 Estim Creat Clear Calc 46.3 Estimated GFR 52 Random Glucose 111 Calcium 9.1 Total Bilirubin AST ALT Alkaline Phosphatase Troponin I High Sens 137.0 H* D B-Natriuretic Peptide Total Protein Albumin Hold Yellow Top Urine Color Urine Appearance Urine pH Ur Specific [place] Urine Protein Urine Glucose (UA) Urine Ketones Urine Blood Urine Nitrite Ur Leukocyte Esterase Urine RBC Urine WBC Ur Squamous Epith Cells Urine Bacteria Hyaline Casts Influenza Type A (PCR) Influenza Type B (PCR) RSV RNA Qual (PCR) SARS-CoV-2 RNA (RT-PCR) Blood Type Antibody Screen 12/04/23 05:56 WBC 7.6 RBC 3.21 L Hgb 10.0 L Hct 30.0 L MCV 93.5 MCH 31.2 MCHC 33.3 RDW 13.2 Plt Count 173 MPV 10.5 Immature Gran % (Auto) Neut % (Auto) Lymph % (Auto) [place] % (Auto) Eos % (Auto) Baso % (Auto) Lymph # (Auto) [place] # (Auto) Eos # (Auto) Baso # (Auto) Abs Immat Gran (auto) Absolute Neuts (auto) Absolute Nucleated RBC 0.000 Nucleated RBC % (auto) 0.0 Hold Purple Top PT INR aPTT Heparin Protocol 30.2 L D Sodium 141 Potassium 4.2 Chloride 109 H Carbon Dioxide 23 Anion Gap 13 BUN 34 H Creatinine 1.06 Estim Creat Clear Calc 45.0 Estimated GFR 50 Random Glucose 99 Calcium 9.2 Total Bilirubin AST ALT Alkaline Phosphatase Troponin I High Sens 73.0 H* B-Natriuretic Peptide Total Protein Albumin Hold Yellow Top Urine Color Urine Appearance Urine pH Ur Specific [place] Urine Protein Urine Glucose (UA) Urine Ketones Urine Blood Urine Nitrite Ur Leukocyte Esterase Urine RBC Urine WBC Ur Squamous Epith Cells Urine Bacteria Hyaline Casts Influenza Type A (PCR) Influenza Type B (PCR) RSV RNA Qual (PCR) SARS-CoV-2 RNA (RT-PCR) Blood Type Antibody Screen Airway Mallampati Class: III TM Dist: <=3cm Neck ROM: Full Heart: ok. see echo. Lungs: Sat 92-94% on 3L NC. Assessment and Plan Assessment Anesthesia Assessment: Anesthesia Plan Discussed and Chart Reviewed Final Anesthetic Review Family History of Problems with Anesthesia: No History of Problems with Anesthesia: No NPO: Yes ASA Class: V Final Preanesthetic Review: No Changes in Pt Med Stat, Meds/Allgs Chart Reviewe d, Consent Obtained/Reviewed, Anes Risks/Benef Reviewed and DNR Form (If Appl.) Patient Risk: High Procedure Risk: Low Anesthetic Plan Anesthetic Plan: Spinal and Agree w/ Assess. and Plan Disposition: Standard PACU
--- NOTE | 2023-12-04 07:28 | MHC.SHP ---
Pre-Procedural Eval Section A - 24 Hr Update-Section A only Date of Service: 12/04/23 The patient is an INPATIENT: Yes Changes since office visit: No Cold of Flu in the past 2 weeks, No New Medical Problems, No Changes in Medication and No Patient answered all questions The patient has been examined within 24 hours of the surgical procedure. The History & Physical has been completed within 30 days and I have reviewed it.: Yes Section B - Complete if H&P > 30 days Chief Complaint: NSTEMI, hip fracture Allergies: Allergies Allergy/AdvReac Type Severity Reaction Status Date / Time No Known Allergies Allergy Verified 12/04/23 06:44 [No Known Allergies*] Plan I have reviewed the history and physical and performed a pertinent physical examination on my patient. No changes have occurred unless specified. Time Spent With Patient Time: Total time managing care of this patient today ____ minutes.
--- NOTE | 2023-12-04 09:46 | PM.OP ---
Brief Operative Note Date of Service: 12/04/23 Pre-op diagnosis: Left femoral neck fracture Post-op diagnosis: same Procedure: Left hip hemiarthroplasty Implants: Deandre Accolade2 #5 127 deg with +4 Surgeon: Francisco Javier Doran MD Anesthesia: spinal Was an [employer] used for this Procedure?: No Estimated blood loss (mL): 200 IV fluids (mL): 800 Pathology: other Condition: stable Disposition: PACU
--- NOTE | 2023-12-04 10:47 | P.PNIM_ITS ---
Subjective Subjective Date of Service: 12/04/23 Interval History: Underwent L hip hemiarthroplasy under spinal anesthesia without complications Has postop pain; no chest pain Review of Systems Review of Systems: Yes all other systems are reviewed and are negative Physical Exam 2 Vital Signs: Vital Signs: Last Vital Signs Temp 98.4 F 12/04/23 10:05 Pulse 108 H 12/04/23 10:19 Resp 14 12/04/23 10:19 BP 116/52 L 12/04/23 10:19 Pulse Ox 95 12/04/23 10:19 O2 Del Method Nasal Cannula 12/04/23 10:19 O2 Flow Rate 3 12/04/23 10:19 Oxygen Flow Rate 3 11/30/23 07:00 BMI result Body Mass Index 31.0 Gen: in no acute distress HEENT: sclera anicteric, moist mucus membranes Neck: supple Lungs: clear to auscultation bilaterally Heart: regular, tachycardic, no murmurs Abd: soft, non-tender, non-distended Ext: L hip with dry dressing Skin: warm/well-perfused Neuro: alert and oriented x3, no focal findings Psych: appropriate affect Objective Data Active Medications Acetaminophen (Acetaminophen 325 Mg Tablet) 650 mg PO Q6H PRN PRN Reason: Pain, Mild (Pain Scale 1-3) Last Admin: 12/03/23 04:11 Dose: 650 mg Documented By: SHELBY Atorvastatin Calcium (Atorvastatin Calcium 10 Mg Tablet) 10 mg PO BEDTIME [facility] Last Admin: 12/03/23 20:55 Dose: 10 mg Documented By: TASHI Benzonatate (Benzonatate 100 Mg Capsule) 100 mg PO TID PRN PRN Reason: Cough Last Admin: 12/02/23 20:11 Dose: 100 mg Documented By: SHELBY Divalproex Sodium (Divalproex Sodium 500 Mg Tablet.Dr) 500 mg PO BEDTIME [facility] Last Admin: 12/03/23 21:36 Dose: 500 mg Documented By: TASHI Docusate Sodium (Docusate Sodium 100 Mg Capsule) 100 mg PO DAILY PRN PRN Reason: Constipation Docusate Sodium (Docusate Sodium 100 Mg Capsule) 100 mg PO DAILY [facility] Last Admin: 12/03/23 09:23 Dose: 100 mg Documented By: RADHA Fentanyl (Fentanyl Citrate/Pf 100 Mcg/2 Ml Vial) 25 mcg IVPUSH Q5M PRN; Protocol PRN Reason: Pain, Moderate(Pain Scale 4-6) Stop: 12/04/23 14:23 Folic Acid (Folic Acid 1 Mg Tablet) 1 mg PO DAILY [facility] Last Admin: 12/03/23 09:23 Dose: 1 mg Documented By: RADHA Heparin Sodium (Porcine) (Heparin Sodium,Porcine 5,000 Unit/Ml Vial) 3,200 unit 40 unit/kg (3200 unit) IVPUSH PROTOCOL BOLUS PRN; Protocol PRN Reason: 40 unit/kg - Heparin Protocol Last Admin: 12/02/23 23:03 Dose: 3,200 unit Documented By: SHELBY Heparin Sodium (Porcine) (Heparin Sodium,Porcine 5,000 Unit/Ml Vial) 6,400 unit 80 unit/kg (6400 unit) IVPUSH PROTOCOL BOLUS PRN; Protocol PRN Reason: 80 unit/kg - Heparin Protocol Hydromorphone HCl (Hydromorphone Hcl 0.5 Mg/0.5 Ml Syringe) 0.25 mg IVPUSH Q5M PRN; Protocol PRN Reason: Pain, Severe (Pain Scale 7-10) Stop: 12/04/23 14:23 Heparin Sodium/Sodium Chloride (Heparin Sodium,Porcine/1/2ns) 25,000 unit in 250 mls @ 0 mls/hr IVCONT .Q0M [facility]; Protocol Last Titration: 12/04/23 03:30 Dose: 0 units/kg/hr, 0 mls/hr Documented By: SENG Co-signed By: TASHI Melatonin (Melatonin 3 Mg Tablet) 6 mg PO BEDTIME PRN PRN Reason: Insomnia Morphine Sulfate (Morphine Sulfate 4 Mg/Ml Cartridge) 4 mg IVPUSH Q4H PRN; Protocol PRN Reason: Pain, Severe (Pain Scale 7-10) Last Admin: 12/03/23 21:36 Dose: 4 mg Documented By: TASHI Omeprazole (Omeprazole 20 Mg Capsule.) 20 mg PO BEDTIME [facility] Last Admin: 12/03/23 20:55 Dose: 20 mg Documented By: TASHI Ondansetron HCl (Ondansetron Hcl 4 Mg/2 Ml Vial) 4 mg IVPUSH Q8H PRN PRN Reason: Nausea and Vomiting Last Admin: 11/30/23 05:30 Dose: 4 mg Documented By: SAMUEL Ondansetron HCl (Ondansetron Hcl 4 Mg/2 Ml Vial) 4 mg IVPUSH ONCE PRN PRN Reason: Nausea and Vomiting Stop: 12/04/23 14:24 Risperidone (Risperidone Microspheres 25 Mg/2 Ml Syringe) 25 mg IM Q14D [facility] Sodium Chloride (0.9 % Sodium Chloride Flush 3 Ml Syringe) 3 ml IVFLUSH QSHIFT [facility] Last Admin: 12/04/23 02:47 Dose: Not Given Documented By: TASHI Non-Admin Reason: IV Running Labs 12/04/23 05:56 12/04/23 05:56 Labs: Laboratory Results - last 24 hr 12/03/23 12/04/23 12/04/23 14:54 05:56 07:20 MCV 93.5 MCH 31.2 MCHC 33.3 RDW 13.2 Plt Count 173 MPV 10.5 Absolute Nucleated RBC 0.000 Nucleated RBC % (auto) 0.0 aPTT Heparin Protocol 63.9 30.2 L D Anion Gap 13 Estim Creat Clear Calc 45.0 Estimated GFR 50 Random Glucose 99 Calcium 9.2 Troponin I High Sens 73.0 H* Blood Type A Positive Antibody Screen NEGATIVE Assessment and Plan (1) Pulmonary embolism: Status: Acute Plan d6 78yo with HTN, HLD, hx TIA, hx DVT, hx breast CA, GERD, bipolar I disorder became lightheaded suddenly then fell on her L hip found to have L femoral neck fracture and submassive PE with R heart strain acute hypoxic resp failure due to submassive PE/R heart strain/NSTEMI - pulmonary embolectomy + IVC filter 12/02/23 - troponins came down - heparin drip held 4 hr prior to hip repair; resume 18 hr afterwards - once bleeding risk acceptable, transition to therapeutic PO apixaban - wean O2 as tolerated. emphseymatous changes on admission CT chest but no prior diagnosis of emphysema. check CXR. L hip fx - POD0 L hemiarthroplasty under spinal anesthesia STEFANI/CKD3 - SCr at baseline after holding lisinopril and giving isotonic IV fluid GERD - PPI HTN - hold lisinopril + furosemide; avoid intraoperative hypotension HLD - statin bipolar disorder - valproate, IM depot risperidone dispo - eventually STR after hip repair In my clinical judgment, the patient requires continued inpatient hospitalization for the following reasons: IV heparin, postoperative care Total time managing care of this patient today: 45 minutes. Quality Stroke Does the patient have a stroke diagnosis?: No VTE Prior VTE?: No VTE Risk Level:: Medical - moderate - high VTE Device Contraindication: Treatment Not Indicated VTE Drug Contraindication: N/A - Med Ordered
[2023-12-04] MEDS: Folic Acid 1 MG TABLET PO (10:57)
[2023-12-04] MEDS: Docusate Sodium 100 MG CAPSULE PO (10:58)
[2023-12-04] MEDS: 0.9 % Sodium Chloride Flush 3 ML SYRINGE IVFLUSH ×3 (10:58→23:33)
[2023-12-04] MEDS: Morphine Sulfate 4 MG/ML CARTRIDGE IVPUSH (11:09)
--- NOTE | 2023-12-04 15:59 | ECG_ITS ---
Test Reason : rhythm check Blood Pressure : / mmHG Vent. Rate : 124 BPM Atrial Rate : 124 BPM P-R Int : 128 ms QRS Dur : 078 ms QT Int : 318 ms P-R-T Axes : 041 047 038 degrees QTc Int : 456 ms Sinus tachycardia Otherwise normal ECG When compared with ECG of 29-NOV-2023 15:49, QRS duration has decreased Criteria for Septal infarct are no longer Present T wave inversion no longer evident in Anterior leads Referred By: Vanessa Andre Electronically Signed By:Leif Jimenez
[2023-12-04] MEDS: Acetaminophen 1,000 MG/100 ML PIGGYBACK 400 MG IV (23:28)
[2023-12-05] VITALS (10 sets, daily range): BP systolic 127–148; BP diastolic 60–67; PULSE 90–134; RESP 16–20; TEMP 35.7–38.1; O2SAT 92–97; BMI 29.5
[2023-12-05] MEDS: Heparin Sodium,Porcine/1/2NS 25,000 UNIT/250 ML IV.SOLN 11.12 UNIT IVCONT (04:11)
[2023-12-05] MEDS: Morphine Sulfate 2 MG/ML CARTRIDGE IVPUSH ×2 (06:37→23:51)
[2023-12-05 06:53] LABS: Anion Gap 14 (12-20); Blood Urea Nitrogen 33 mg/dL (9-16); Calcium 9.4 mg/dL (8.4-10.2); Carbon Dioxide 23 mmol/L (22-29); Chloride 107 mmol/L (96-108); Estimated Glomerular Filt Rate 55; Glucose Random 138 mg/dL (60-115); Potassium 4.3 mmol/L (3.3-5.1); Sodium 140 mmol/L (135-145)
[2023-12-05 06:57] LABS: Hematocrit 30.2 % (37.0-47.0); Hemoglobin 10.2 g/dl (12.0-16.0); Mean Corpuscular HGB Conc 33.8 g/dl (31.0-35.0); Mean Corpuscular Hemoglobin 31.6 pg (27.0-33.0); Mean Corpuscular Volume 93.5 fL (80.0-98.0); Mean Platelet Volume 10.5 fL (9.4-12.3); Platelet Count 177 X10*3/uL (160-400); Red Blood Count 3.23 X10*6/uL (4.20-5.50); Red Cell Distribution Width 13.2 % (11.0-16.0); White Blood Count 12.1 X10*3/uL (4.8-10.8)
[2023-12-05] MEDS: Docusate Sodium 100 MG CAPSULE PO (07:39)
[2023-12-05] MEDS: Folic Acid 1 MG TABLET PO (07:39)
[2023-12-05] MEDS: 0.9 % Sodium Chloride Flush 3 ML SYRINGE IVFLUSH ×3 (07:39→23:57)
--- NOTE | 2023-12-05 07:50 | PC.NURSE ---
Patient alert and oriented x1 upon assessment of patient, drowsy but arousable to voice. Heart rate sustaining to in 120-130s. MD notified and came to bedside. EKG ordered and obtained. 21:00 PO meds held. No further orders placed. Approximately at 23:20 patient had temp of 100.6, Tylenol IV ordered and administered. Temp rechecked, afebrile. Patient more arousable and alert as shift went on.
--- NOTE | 2023-12-05 08:17 | P.PNOP_ITS ---
Subjective Subjective Date of Service: 12/05/23 Principal diagnosis: Pulmonary embolism, preop Interval history: POD 1 s/p LT hip hemiarthroplasty no overnight events resting in bed sleeping no concerns Physical Exam Vital Signs: Vital Signs: Last Vital Signs Temp 96.2 F L 12/05/23 07:45 Pulse 90 12/05/23 07:45 Resp 20 12/05/23 07:45 BP 135/64 12/05/23 07:45 Pulse Ox 94 12/05/23 07:45 O2 Del Method Nasal Cannula 12/05/23 07:45 O2 Flow Rate 2 12/05/23 07:45 Oxygen Flow Rate 3 11/30/23 07:00 BMI result Body Mass Index 29.5 Const: General: cooperative, healthy appearing and no acute distress Resp: Effort & Inspection: normal respiratory effort and able to speak in complete sentences Cardio: Rate: regular rate Peripheral pulses: Peripheral pulses 2+ throughout GI: Palpation (GI): Soft to palpation Skin: General skin exam: no rashes or lesions noted Extrem: Other: bandage clean dry and intact. Jenifer intact. No erythema or effusion. Calf supple nontender. Neurovascularly intact. Procedures Date of Service Date of Service: 12/05/23 Progress Note: A&P Assessment and plan (1) History of left hip hemiarthroplasty: Status: Acute Assessment and Plan: * Continue pain mgmnt * Begin anticoag for dvt ppx * begin PT for LT hip melani posterior precautions * Dispo planning-Pending PT eval, pain mgmnt Time Spent With Patient Time: Total time managing care of this patient today ____ minutes. Quality Stroke Does the patient have a stroke diagnosis?: No VTE Prior VTE?: No VTE Risk Level:: Medical - moderate - high VTE Device Contraindication: Treatment Not Indicated VTE Drug Contraindication: N/A - Med Ordered
--- NOTE | 2023-12-05 10:21 | P.PNIM_ITS ---
Subjective Subjective Date of Service: 12/05/23 Interval History: Tired Denies dyspnea or chest pain/pressure Mild fever to 100.6 around midnight Review of Systems Review of Systems: Yes all other systems are reviewed and are negative Physical Exam 2 Vital Signs: Vital Signs: Last Vital Signs Temp 96.2 F L 12/05/23 07:45 Pulse 90 12/05/23 09:39 Resp 20 12/05/23 07:45 BP 135/64 12/05/23 09:39 Pulse Ox 94 12/05/23 09:39 O2 Del Method Nasal Cannula 12/05/23 07:45 O2 Flow Rate 2 12/05/23 07:45 Oxygen Flow Rate 3 11/30/23 07:00 BMI result Body Mass Index 29.5 Gen: in no acute distress HEENT: sclera anicteric, moist mucus membranes Neck: supple Lungs: clear to auscultation bilaterally Heart: regular, tachycardic, no murmurs Abd: soft, non-tender, non-distended Ext: L hip with dry dressing Skin: warm/well-perfused Neuro: alert and oriented x3, no focal findings Psych: appropriate affect Objective Data Active Medications Acetaminophen (Acetaminophen 325 Mg Tablet) 650 mg PO Q6H PRN PRN Reason: Pain, Mild (Pain Scale 1-3) Last Admin: 12/03/23 04:11 Dose: 650 mg Documented By: SHELBY Atorvastatin Calcium (Atorvastatin Calcium 10 Mg Tablet) 10 mg PO BEDTIME [facility] Last Admin: 12/04/23 22:31 Dose: Not Given Documented By: SENG Non-Admin Reason: per Nurse, pt jennifer GUNDERSON notifed Benzonatate (Benzonatate 100 Mg Capsule) 100 mg PO TID PRN PRN Reason: Cough Last Admin: 12/02/23 20:11 Dose: 100 mg Documented By: SHELBY Divalproex Sodium (Divalproex Sodium 500 Mg Tablet.Dr) 500 mg PO BEDTIME [facility] Last Admin: 12/04/23 22:32 Dose: Not Given Documented By: SENG Non-Admin Reason: per Nurse, pt jennifer GUNDERSON notified Docusate Sodium (Docusate Sodium 100 Mg Capsule) 100 mg PO DAILY PRN PRN Reason: Constipation Docusate Sodium (Docusate Sodium 100 Mg Capsule) 100 mg PO DAILY [facility] Last Admin: 12/05/23 07:39 Dose: 100 mg Documented By: RISHI Folic Acid (Folic Acid 1 Mg Tablet) 1 mg PO DAILY [facility] Last Admin: 12/05/23 07:39 Dose: 1 mg Documented By: RISHI Heparin Sodium (Porcine) (Heparin Sodium,Porcine 5,000 Unit/Ml Vial) 6,000 unit IVPUSH PROTOCOL BOLUS PRN; Protocol PRN Reason: 80 unit/kg - Heparin Protocol Heparin Sodium (Porcine) (Heparin Sodium,Porcine 5,000 Unit/Ml Vial) 3,000 unit IVPUSH PROTOCOL BOLUS PRN; Protocol PRN Reason: 40 unit/kg - Heparin Protocol Heparin Sodium/Sodium Chloride (Heparin Sodium,Porcine/1/2ns) 25,000 unit in 250 mls @ 0 mls/hr IVCONT .Q0M [facility]; Protocol Last Admin: 12/05/23 04:11 Dose: 14 units/kg/hr, 11.12 mls/hr Documented By: SENG Co-signed By: MICA Melatonin (Melatonin 3 Mg Tablet) 6 mg PO BEDTIME PRN PRN Reason: Insomnia Morphine Sulfate (Morphine Sulfate 2 Mg/Ml Cartridge) 2 mg IVPUSH Q4H PRN; Protocol PRN Reason: Pain, Severe (Pain Scale 7-10) Last Admin: 12/05/23 06:37 Dose: 2 mg Documented By: SENG Omeprazole (Omeprazole 20 Mg Capsule.Dr) 20 mg PO BEDTIME [facility] Last Admin: 12/04/23 22:32 Dose: Not Given Documented By: SENG Non-Admin Reason: per Nurse, pt drowsy MD notified Ondansetron HCl (Ondansetron Hcl 4 Mg/2 Ml Vial) 4 mg IVPUSH Q8H PRN PRN Reason: Nausea and Vomiting Last Admin: 11/30/23 05:30 Dose: 4 mg Documented By: SAMUEL Risperidone (Risperidone Microspheres 25 Mg/2 Ml Syringe) 25 mg IM Q14D [facility] Sodium Chloride (0.9 % Sodium Chloride Flush 3 Ml Syringe) 3 ml IVFLUSH QSHIFT [facility] Last Admin: 12/05/23 07:39 Dose: 3 ml Documented By: RISHI Labs 12/05/23 06:33 12/05/23 06:33 Labs: Laboratory Results - last 24 hr 12/05/23 06:33 MCV 93.5 MCH 31.6 MCHC 33.8 RDW 13.2 Plt Count 177 MPV 10.5 Absolute Nucleated RBC 0.000 Nucleated RBC % (auto) 0.0 Anion Gap 14 Estim Creat Clear Calc 47.0 Estimated GFR 55 Random Glucose 138 H Calcium 9.4 Assessment and Plan (1) Pulmonary embolism: Status: Acute Plan d7 78yo with HTN, HLD, hx TIA, hx DVT, hx breast CA, GERD, bipolar I disorder became lightheaded suddenly then fell on her L hip found to have L femoral neck fracture and submassive PE with R heart strain acute hypoxic resp failure due to submassive PE/R heart strain/NSTEMI from bilateral DVTs - pulmonary embolectomy + IVC filter 12/02/23 - troponins came down - heparin drip held 4 hr prior to hip repair; resumed 18 hr afterwards. Continue for 48 hr then if no bleeding issues, transition to PO apixaban. - wean O2 as tolerated. emphseymatous changes on admission CT chest but no prior diagnosis of emphysema. CXR clear. L hip fx - POD1 L hemiarthroplasty under spinal anesthesia - fever likely due to atelectasis; encourage IS STEFANI/CKD3 - STEFANI resolved; SCr at baseline after holding lisinopril and giving isotonic IV fluid GERD - PPI HTN - hold lisinopril + furosemide HLD - statin bipolar disorder - valproate, IM depot risperidone [next dose due 12/11/23] dispo - eventually STR In my clinical judgment, the patient requires continued inpatient hospitalization for the following reasons: IV heparin, postoperative care Total time managing care of this patient today: 45 minutes. Quality Stroke Does the patient have a stroke diagnosis?: No VTE Prior VTE?: No VTE Risk Level:: Medical - moderate - high VTE Device Contraindication: Treatment Not Indicated VTE Drug Contraindication: N/A - Med Ordered
--- NOTE | 2023-12-05 11:17 | MHC.CM.PN ---
Pt receiving post operative care, will have IV heparin and anticipate DC on 12/08/23 for STR at [facility], and PT, OT evals sent.
[2023-12-05 11:25] LABS: PTT Heparin Drip 46.9 SEC (53-77.9)
[2023-12-05] MEDS: Heparin Sodium,Porcine 5,000 UNIT/ML VIAL 3000 UNIT IVPUSH (11:45)
--- NOTE | 2023-12-05 12:10 | PM.PNCARD ---
Subjective Subjective Date of Service: 12/05/23 Principal diagnosis: Pulmonary embolism, preop Interval history: Seen examined at bedside. She underwent surgery yesterday. Stable. Physical Exam Vital Signs: Last Vital Signs Temp 97.1 F 12/05/23 11:47 Pulse 90 12/05/23 11:47 Resp 20 12/05/23 11:47 BP 142/67 H 12/05/23 11:47 Pulse Ox 97 12/05/23 11:47 O2 Del Method Nasal Cannula 12/05/23 11:47 O2 Flow Rate 3 12/05/23 11:47 Oxygen Flow Rate 3 12/05/23 08:23 BMI result Body Mass Index 29.5 GENERAL APPEARANCE: in no acute distress, pleasant. NECK: no carotid bruit, no jugular venous distention. SKIN: no suspicious lesions, warm and dry. HEART: no murmurs, regular rate and rhythm. LUNGS: clear to auscultation bilaterally. ABDOMEN: soft, nontender. EXTREMITIES: no edema. PERIPHERAL PULSES: equal. NEUROLOGIC: No gross deficits, AAO X 3 Objective Labs and Meds 12/05/23 06:33 12/05/23 06:33 Lab results: Laboratory Results - last 24 hr 12/05/23 12/05/23 06:33 10:37 WBC 12.1 H RBC 3.23 L Hgb 10.2 L Hct 30.2 L MCV 93.5 MCH 31.6 MCHC 33.8 RDW 13.2 Plt Count 177 MPV 10.5 Absolute Nucleated RBC 0.000 Nucleated RBC % (auto) 0.0 aPTT Heparin Protocol 46.9 L D Sodium 140 Potassium 4.3 Chloride 107 Carbon Dioxide 23 Anion Gap 14 BUN 33 H Creatinine 0.99 Estim Creat Clear Calc 47.0 Estimated GFR 55 Random Glucose 138 H Calcium 9.4 Imaging Radiologist's impression: Impressions Chest X-Ray 12/04/23 15:08 IMPRESSION: * Clear lungs. Progress Note: A&P Assessment and plan (1) NSTEMI (non-ST elevated myocardial infarction): Status: Acute (2) Pulmonary embolism: Status: Acute Plan [age] year female with syncope and NSTEMI due to some massive pulmonary embolism. She had pulmonary embolectomy as well as IVC filter placement because she unfortunately had hip fracture after she fell due to pulmonary embolism. She underwent surgery yesterday she is on heparin now. Transitioned to PE dose of apixaban once stable from surgical point of view. Eventually the IVC filter has to be removed. Thank you for allowing me to participate in the care of your patient. Please feel free to contact me if you have any questions. Time Spent With Patient Time: Total time managing care of this patient today ____ minutes. Progress Note: Quality Stroke Does the patient have a stroke diagnosis?: No Procedures Date of Service Date of Service: 12/05/23
--- NOTE | 2023-12-05 17:18 | HO.POSTANES ---
Post Anesthesia Evaluation Post Anesthesia Evaluation Date of Service: 12/05/23 Vital Signs: Vital Signs Temp Pulse Resp BP Pulse Ox O2 Del Method O2 Flow Rate 12/05/23 15:42 96.8 F 96 20 129/62 96 Nasal Cannula 12/05/23 11:47 97.1 F 90 20 142/67 H 97 Nasal Cannula 3 12/05/23 09:39 90 135/64 94 12/05/23 08:23 95 Nasal Cannula 12/05/23 07:45 96.2 F L 90 20 135/64 94 Nasal Cannula 2 Anesthesia: Spinal Mental Status: Awake Pain Control: Satisfactory Nausea/Vomiting: None Hydration: Adequate Anesthesia-Related Issues: No Anes. Related Issues
[2023-12-05 19:21] LABS: PTT Heparin Drip 61.1 SEC (53-77.9)
[2023-12-05] MEDS: Heparin Sodium,Porcine/1/2NS 25,000 UNIT/250 ML IV.SOLN 12.08 UNIT IVCONT (23:41)
[2023-12-05] MEDS: Divalproex Sodium 500 MG TABLET.DR PO (23:45)
[2023-12-05] MEDS: Omeprazole 20 MG CAPSULE.DR PO (23:45)
[2023-12-05] MEDS: Atorvastatin Calcium 10 MG TABLET PO (23:46)
[2023-12-06] VITALS (8 sets, daily range): BP systolic 122–148; BP diastolic 57–65; PULSE 98–113; RESP 15–20; TEMP 36.3–36.8; O2SAT 94–98
[2023-12-06 00:53] LABS: PTT Heparin Drip 56.5 SEC (53-77.9)
[2023-12-06 07:18] LABS: Hemoglobin 8.9 g/dl (12.0-16.0); Mean Corpuscular Hemoglobin 30.8 pg (27.0-33.0); Mean Corpuscular Volume 93.4 fL (80.0-98.0); Mean Platelet Volume 10.6 fL (9.4-12.3); Platelet Count 180 X10*3/uL (160-400); Red Blood Count 2.89 X10*6/uL (4.20-5.50); Red Cell Distribution Width 13.2 % (11.0-16.0); White Blood Count 11.5 X10*3/uL (4.8-10.8)
[2023-12-06 07:21] LABS: PTT Heparin Drip 65.6 SEC (53-77.9)
[2023-12-06 07:33] LABS: Anion Gap 13 (12-20); Blood Urea Nitrogen 33 mg/dL (9-16); Calcium 9.3 mg/dL (8.4-10.2); Carbon Dioxide 22 mmol/L (22-29); Chloride 109 mmol/L (96-108); Creatinine Clr Calc Pharmacy 53.5; Estimated Glomerular Filt Rate > 60; Glucose Random 112 mg/dL (60-115); Potassium 3.7 mmol/L (3.3-5.1); Sodium 140 mmol/L (135-145)
[2023-12-06] MEDS: Docusate Sodium 100 MG CAPSULE PO ×2 (08:48→22:13)
[2023-12-06] MEDS: Folic Acid 1 MG TABLET PO (08:48)
--- NOTE | 2023-12-06 11:51 | P.OP_ITS ---
Operative Note Operative Note Date of Service: 12/04/23 Narrative: Date of Service: 12/04/23 Pre-op diagnosis: Left femoral neck fracture Post-op diagnosis: same Procedure: Left hip hemiarthroplasty Implants: Deandre Accolade2 #5 127 deg with +4 Surgeon: Francisco Javier Doran MD Anesthesia: spinal Was an Animal Trainer used for this Procedure?: No Estimated blood loss (mL): 200 IV fluids (mL): 800 Pathology: other Condition: stable Disposition: PACU Procedure in detail: Patient was brought to the operative room placed in the lateral decubitus position. All bony prominences were well padded and the was prepped and draped in standard sterile fashion. IV antibiotics per weight were administered and a time-out was called to identify proper site proper procedure proper surgeon. Radiographs were available and confirmed. I began by making a curvilinear incision over the posterolateral aspect of the greater trochanter. Dissection was taken down to the tensor fascia which was incised in line with the incision and a Charnley retractor was placed. The hip was internally rotated and the external rotators were identified. All vessels in the area were cauterized and a full-thickness capsular/external rotator layer was developed in a hockey-stick fashion starting just proximal to the piriformis. This layer was tagged and the displaced femoral neck fracture was identified. Clean-up cuts was performed while protection the posterolateral soft tissues and the head was removed and measured (46 mm) on the back table. I then copiously irrigated the acetabulum and removed all bony fragments. Once this was done I used a cookie cutter to lateralize and a Charnley awl to identify the canal and then sequentially broached up to a 127 deg #4. I then trialed with a standard head and a bipolar component matching the femoral head size. I was satisfied (using a +4 )with the range of motion and stability and length. Therefore I removed all instrumentation and copiously irrigated. I then placed my final femoral implant and then retrialed. I was satisfied with the stability of the implants. My final bipolar components were then placed. I closed the capsular layer with FiberWire. I irrigated copiously and I performed a layered closure with brennen on skin. The patient was placed in sterile dressing extubated brought to recovery room in stable condition there were no known complications.
--- NOTE | 2023-12-06 13:49 | P.PNIM_ITS ---
Subjective Subjective Date of Service: 12/06/23 Interval History: No acute issues overnight. Tolerating heparin drip. Hip pain well control Review of Systems Denies chest pain Denies shortness of breath Denies nausea vomiting diarrhea Denies fever chills Physical Exam 2 Vital Signs: Vital Signs: Last Vital Signs Temp 98.2 F 12/06/23 11:02 Pulse 113 H 12/06/23 12:24 Resp 20 12/06/23 11:02 BP 127/58 L 12/06/23 12:24 Pulse Ox 94 12/06/23 12:24 O2 Del Method Nasal Cannula 12/06/23 11:02 O2 Flow Rate 3 12/06/23 11:02 Oxygen Flow Rate 3 12/06/23 08:00 BMI result Body Mass Index 29.5 Const: Other: Awake alert no acute distress Resp: Other: Clear to auscultation bilaterally no rales rhonchi or wheezes Cardio: Other: No S4; positive S1-S2; no S3 murmurs rubs or gallops GI: Other: Soft nontender nondistended normoactive bowel sounds Extrem: Other: No edema bilaterally Objective Data Active Medications Acetaminophen (Acetaminophen 325 Mg Tablet) 650 mg PO Q6H PRN PRN Reason: Pain, Mild (Pain Scale 1-3) Last Admin: 12/03/23 04:11 Dose: 650 mg Documented By: SHELBY Atorvastatin Calcium (Atorvastatin Calcium 10 Mg Tablet) 10 mg PO BEDTIME [facility] Last Admin: 12/05/23 23:46 Dose: 10 mg Documented By: ERNESTINA Benzonatate (Benzonatate 100 Mg Capsule) 100 mg PO TID PRN PRN Reason: Cough Last Admin: 12/02/23 20:11 Dose: 100 mg Documented By: SHELBY Divalproex Sodium (Divalproex Sodium 500 Mg Tablet.Dr) 500 mg PO BEDTIME [facility] Last Admin: 12/05/23 23:45 Dose: 500 mg Documented By: ERNESTINA Docusate Sodium (Docusate Sodium 100 Mg Capsule) 100 mg PO DAILY PRN PRN Reason: Constipation Docusate Sodium (Docusate Sodium 100 Mg Capsule) 100 mg PO DAILY [facility] Last Admin: 12/06/23 08:48 Dose: 100 mg Documented By: CHRISTIANO Folic Acid (Folic Acid 1 Mg Tablet) 1 mg PO DAILY [facility] Last Admin: 12/06/23 08:48 Dose: 1 mg Documented By: CHRISTIANO Heparin Sodium (Porcine) (Heparin Sodium,Porcine 5,000 Unit/Ml Vial) 6,000 unit IVPUSH PROTOCOL BOLUS PRN; Protocol PRN Reason: 80 unit/kg - Heparin Protocol Heparin Sodium (Porcine) (Heparin Sodium,Porcine 5,000 Unit/Ml Vial) 3,000 unit IVPUSH PROTOCOL BOLUS PRN; Protocol PRN Reason: 40 unit/kg - Heparin Protocol Last Admin: 12/05/23 11:45 Dose: 3,000 unit Documented By: RISHI Heparin Sodium/Sodium Chloride (Heparin Sodium,Porcine/1/2ns) 25,000 unit in 250 mls @ 0 mls/hr IVCONT .Q0M [facility]; Protocol Last Titration: 12/06/23 07:32 Dose: 16 units/kg/hr, 12.08 mls/hr Documented By: CHRISTIANO Co-signed By: MARGARITA Melatonin (Melatonin 3 Mg Tablet) 6 mg PO BEDTIME PRN PRN Reason: Insomnia Morphine Sulfate (Morphine Sulfate 2 Mg/Ml Cartridge) 2 mg IVPUSH Q4H PRN; Protocol PRN Reason: Pain, Severe (Pain Scale 7-10) Last Admin: 12/05/23 23:51 Dose: 2 mg Documented By: ERNESTINA Omeprazole (Omeprazole 20 Mg Capsule.Dr) 20 mg PO BEDTIME [facility] Last Admin: 12/05/23 23:45 Dose: 20 mg Documented By: ERNESTINA Ondansetron HCl (Ondansetron Hcl 4 Mg/2 Ml Vial) 4 mg IVPUSH Q8H PRN PRN Reason: Nausea and Vomiting Last Admin: 11/30/23 05:30 Dose: 4 mg Documented By: SAMUEL Risperidone (Risperidone Microspheres 25 Mg/2 Ml Syringe) 25 mg IM Q14D [facility] Sodium Chloride (0.9 % Sodium Chloride Flush 3 Ml Syringe) 3 ml IVFLUSH QSHIFT [facility] Last Admin: 12/06/23 08:48 Dose: Not Given Documented By: CHRISTIANO Non-Admin Reason: IV Running Labs 12/06/23 06:28 12/06/23 06:28 Labs: Laboratory Results - last 24 hr 12/05/23 12/06/23 12/06/23 18:11 00:30 06:28 MCV 93.4 MCH 30.8 MCHC 33.0 RDW 13.2 Plt Count 180 MPV 10.6 Absolute Nucleated RBC 0.000 Nucleated RBC % (auto) 0.0 aPTT Heparin Protocol 61.1 D 56.5 65.6 Anion Gap 13 Estim Creat Clear Calc 53.5 Estimated GFR > 60 Random Glucose 112 Calcium 9.3 Assessment and Plan (1) Pulmonary embolism: Status: Acute (2) NSTEMI (non-ST elevated myocardial infarction): Status: Acute (3) History of left hip hemiarthroplasty: Status: Acute Plan 78yo with HTN, HLD, hx TIA, hx DVT, hx breast CA, GERD, bipolar I disorderm became lightheaded suddenly then fell on her L hip;found to have L femoral neck fracture and submassive PE with R heart strain. 1.Acute hypoxic resp failure due to submassive PE/R heart strain/NSTEMI from bilateral DVTs -pulmonary embolectomy/IVC filter 12/02/23 -heparin drip held 4 hr prior to hip repair; resumed 18 hr afterwards. -will continue heparin drip additional 24 hours then start Eliquis at pulmonary emboli dosing -follow CBCs 2.L hip fx -POD(2) L hemiarthroplasty under spinal anesthesia -as per ortho 3.STEFANI/CKD3 -responded to volume repletion -follow renals/divalents 4.HTN -acceptable control on current therapies -add back ACEI/Lasix when it clinically appropriate 5.Bipolar disorder -stable and well compensated Heparin drip DNR DNI In my clinical judgment, the patient requires continued inpatient hospitalization for the following reasons: IV heparin, postoperative care Quality Stroke Does the patient have a stroke diagnosis?: No VTE Prior VTE?: No VTE Risk Level:: Medical - moderate - high VTE Device Contraindication: Treatment Not Indicated VTE Drug Contraindication: N/A - Med Ordered
[2023-12-06] MEDS: 0.9 % Sodium Chloride Flush 3 ML SYRINGE IVFLUSH (15:38)
[2023-12-06] MEDS: Heparin Sodium,Porcine/1/2NS 25,000 UNIT/250 ML IV.SOLN 12.08 UNIT IVCONT (21:25)
[2023-12-06] MEDS: Atorvastatin Calcium 10 MG TABLET PO (21:31)
[2023-12-06] MEDS: Omeprazole 20 MG CAPSULE.DR PO (21:31)
[2023-12-06] MEDS: Divalproex Sodium 500 MG TABLET.DR PO (21:31)
[2023-12-06] MEDS: Morphine Sulfate 2 MG/ML CARTRIDGE IVPUSH (22:13)
[2023-12-07] VITALS (7 sets, daily range): BP systolic 124–148; BP diastolic 58–65; PULSE 94–112; RESP 16–22; TEMP 36.2–37.1; O2SAT 92–95
[2023-12-07 07:29] LABS: MANUAL DIFF FLAG NO
[2023-12-07 07:47] LABS: PTT Heparin Drip 64.9 SEC (53-77.9)
[2023-12-07 07:55] LABS: Alanine Aminotransferase 75 U/L (0-31); Albumin Level 2.6 g/dL (3.5-5.0); Alkaline Phosphatase 65 U/L (39-117); Anion Gap 13 (12-20); Aspartate Amino Transferase 53 U/L (5-31); Bilirubin Total 0.4 mg/dL (0.0-1.0); Blood Urea Nitrogen 33 mg/dL (9-16); Carbon Dioxide 24 mmol/L (22-29); Chloride 108 mmol/L (96-108); Creatinine Clr Calc Pharmacy 59.7; Estimated Glomerular Filt Rate > 60; Glucose Fasting 94 mg/dL (60-99); Potassium 3.5 mmol/L (3.3-5.1); Sodium 141 mmol/L (135-145); Total Protein 5.7 g/dL (6.5-8.0)
[2023-12-07 07:57] LABS: Basophils Percent Auto 0.4 % (0-2); Eosinophils Absolute Auto 0.3 X10*3/uL (0.0-0.4); Eosinophils Percent Auto 2.8 % (0-4); Hematocrit 25.6 % (37.0-47.0); Hemoglobin 8.4 g/dl (12.0-16.0); Imm Gran Abs Auto 0.05 X10*3/uL (0.00-0.03); Imm Gran Pct Auto 0.5 % (0.0-0.4); Lymphocytes Absolute Auto 1.2 X10*3/uL (1.2-4.9); Lymphocytes Percent Auto 12.2 % (20-40); Mean Corpuscular HGB Conc 32.8 g/dl (31.0-35.0); Mean Corpuscular Volume 94.5 fL (80.0-98.0); Mean Platelet Volume 10.3 fL (9.4-12.3); Monocytes Absolute Auto 0.7 X10*3/uL (0.1-1.2); Monocytes Percent Auto 7.4 % (2-11); Neutrophils Absolute Auto 7.3 x10*3/uL (2.0-8.3); Neutrophils Percent Auto 76.7 % (45-73); Platelet Count 218 X10*3/uL (160-400); Red Blood Count 2.71 X10*6/uL (4.20-5.50); Red Cell Distribution Width 13.3 % (11.0-16.0); White Blood Count 9.5 X10*3/uL (4.8-10.8)
[2023-12-07] MEDS: Docusate Sodium 100 MG CAPSULE PO (09:31)
[2023-12-07] MEDS: Folic Acid 1 MG TABLET PO (09:31)
--- NOTE | 2023-12-07 12:30 | HO.PM.IMPN ---
Subjective Subjective Date of Service: 12/07/23 Interval History: No acute issues overnight. Mild nosebleed likely secondary to oxygen delivery. No other occult bleeding Review of Systems Denies chest pain Denies shortness of breath Denies nausea vomiting diarrhea Denies fever chills Physical Exam Vital Signs: Vital Signs: Last Vital Signs Temp 98.7 F 12/07/23 07:56 Pulse 94 12/07/23 07:56 Resp 22 H 12/07/23 07:56 BP 125/61 12/07/23 07:56 Pulse Ox 93 12/07/23 08:00 O2 Del Method Room Air 12/07/23 08:00 O2 Flow Rate 3 12/07/23 07:56 Oxygen Flow Rate 3 12/06/23 08:00 BMI result Body Mass Index 29.5 Const: Other: Awake alert no acute distress Resp: Other: Clear to auscultation bilaterally no rales rhonchi or wheezes Cardio: Other: No S4; positive S1-S2; no S3 murmurs rubs or gallops GI: Other: Soft nontender nondistended normoactive bowel sounds Extrem: Other: No edema bilaterally Objective Data Active Medications Acetaminophen (Acetaminophen 325 Mg Tablet) 650 mg PO Q6H PRN PRN Reason: Pain, Mild (Pain Scale 1-3) Last Admin: 12/03/23 04:11 Dose: 650 mg Documented By: SHELBY Atorvastatin Calcium (Atorvastatin Calcium 10 Mg Tablet) 10 mg PO BEDTIME [facility] Last Admin: 12/06/23 21:31 Dose: 10 mg Documented By: ERNESTINA Benzonatate (Benzonatate 100 Mg Capsule) 100 mg PO TID PRN PRN Reason: Cough Last Admin: 12/02/23 20:11 Dose: 100 mg Documented By: SHELBY Divalproex Sodium (Divalproex Sodium 500 Mg Tablet.Dr) 500 mg PO BEDTIME [facility] Last Admin: 12/06/23 21:31 Dose: 500 mg Documented By: RENESTINA Docusate Sodium (Docusate Sodium 100 Mg Capsule) 100 mg PO DAILY PRN PRN Reason: Constipation Last Admin: 12/06/23 22:13 Dose: 100 mg Documented By: ERNESTINA Docusate Sodium (Docusate Sodium 100 Mg Capsule) 100 mg PO DAILY [facility] Last Admin: 12/07/23 09:31 Dose: 100 mg Documented By: CHRISTIANO Folic Acid (Folic Acid 1 Mg Tablet) 1 mg PO DAILY [facility] Last Admin: 12/07/23 09:31 Dose: 1 mg Documented By: CHRISTIANO Melatonin (Melatonin 3 Mg Tablet) 6 mg PO BEDTIME PRN PRN Reason: Insomnia Morphine Sulfate (Morphine Sulfate 2 Mg/Ml Cartridge) 2 mg IVPUSH Q4H PRN; Protocol PRN Reason: Pain, Severe (Pain Scale 7-10) Last Admin: 12/06/23 22:13 Dose: 2 mg Documented By: ERNESTINA Omeprazole (Omeprazole 20 Mg Capsule.Dr) 20 mg PO BEDTIME [facility] Last Admin: 12/06/23 21:31 Dose: 20 mg Documented By: ERNESTINA Ondansetron HCl (Ondansetron Hcl 4 Mg/2 Ml Vial) 4 mg IVPUSH Q8H PRN PRN Reason: Nausea and Vomiting Last Admin: 11/30/23 05:30 Dose: 4 mg Documented By: SAMUEL Risperidone (Risperidone Microspheres 25 Mg/2 Ml Syringe) 25 mg IM Q14D [facility] Sodium Chloride (0.9 % Sodium Chloride Flush 3 Ml Syringe) 3 ml IVFLUSH QSHIFT [facility] Last Admin: 12/07/23 09:30 Dose: Not Given Documented By: CHRISTIANO Non-Admin Reason: IV Running Labs 12/07/23 06:48 12/07/23 06:48 Labs: Laboratory Results - last 24 hr 12/07/23 12/07/23 06:47 06:48 MCV 94.5 MCH 31.0 MCHC 32.8 RDW 13.3 Plt Count 218 MPV 10.3 Immature Gran % (Auto) 0.5 H Neut % (Auto) 76.7 H Lymph % (Auto) 12.2 L [place] % (Auto) 7.4 Eos % (Auto) 2.8 Baso % (Auto) 0.4 Lymph # (Auto) 1.2 [place] # (Auto) 0.7 Eos # (Auto) 0.3 Baso # (Auto) 0.0 Abs Immat Gran (auto) 0.05 H Absolute Neuts (auto) 7.3 Absolute Nucleated RBC 0.000 Nucleated RBC % (auto) 0.0 aPTT Heparin Protocol 64.9 Anion Gap 13 Estim Creat Clear Calc 59.7 Estimated GFR > 60 Fasting Glucose 94 Calcium 9.0 Total Bilirubin 0.4 AST 53 H ALT 75 H Alkaline Phosphatase 65 Total Protein 5.7 L Albumin 2.6 L Assessment and Plan (1) Pulmonary embolism: Status: Acute (2) History of left hip hemiarthroplasty: Status: Acute Plan 78yo with HTN, HLD, hx TIA, hx DVT, hx breast CA, GERD, bipolar I disorderm became lightheaded suddenly then fell on her L hip;found to have L femoral neck fracture and submassive PE with R heart strain. 1.Acute hypoxic resp failure due to submassive PE/R heart strain/NSTEMI from bilateral DVTs -pulmonary embolectomy/IVC filter 12/02/23 -DC heparin drip at this time -Eliquis 10 mg b.i.d. x7 days -follow CBC 2.L hip fx -POD(2) L hemiarthroplasty under spinal anesthesia -as per ortho 3.STEFANI/CKD3 -responded to volume repletion -follow renals/divalents 4.HTN -acceptable control on current therapies -add back ACEI/Lasix when it clinically appropriate 5.Bipolar disorder -stable and well compensated Heparin drip DNR DNI In my clinical judgment, the patient requires continued inpatient hospitalization for the following reasons: IV heparin, postoperative care Quality Stroke Does the patient have a stroke diagnosis?: No VTE Prior VTE?: No VTE Risk Level:: Medical - moderate - high VTE Device Contraindication: Treatment Not Indicated VTE Drug Contraindication: N/A - Med Ordered
[2023-12-07] MEDS: Morphine Sulfate 2 MG/ML CARTRIDGE IVPUSH ×2 (13:41→17:47)
[2023-12-07] MEDS: Apixaban 5 MG TABLET 10 MG PO ×2 (13:41→20:14)
[2023-12-07] MEDS: Acetaminophen 325 MG TABLET 650 MG PO (16:41)
--- NOTE | 2023-12-07 16:43 | PC.NURSE ---
report handed off to CAT Poole.
[2023-12-07] MEDS: 0.9 % Sodium Chloride Flush 3 ML SYRINGE IVFLUSH ×2 (16:44→20:15)
[2023-12-07] MEDS: Omeprazole 20 MG CAPSULE.DR PO (20:13)
[2023-12-07] MEDS: Atorvastatin Calcium 10 MG TABLET PO (20:13)
[2023-12-07] MEDS: Divalproex Sodium 500 MG TABLET.DR PO (20:13)
[2023-12-08] VITALS (12 sets, daily range): BP systolic 122–143; BP diastolic 60–70; PULSE 84–106; RESP 16–21; TEMP 36.2–36.8; O2SAT 91–95
[2023-12-08] MEDS: Morphine Sulfate 2 MG/ML CARTRIDGE IVPUSH ×3 (00:24→18:36)
[2023-12-08 06:43] LABS: MANUAL DIFF FLAG NO
[2023-12-08 06:54] LABS: Basophils Percent Auto 0.4 % (0-2); Eosinophils Absolute Auto 0.2 X10*3/uL (0.0-0.4); Eosinophils Percent Auto 3.1 % (0-4); Hematocrit 25.3 % (37.0-47.0); Hemoglobin 8.2 g/dl (12.0-16.0); Imm Gran Abs Auto 0.06 X10*3/uL (0.00-0.03); Imm Gran Pct Auto 0.8 % (0.0-0.4); Lymphocytes Absolute Auto 1.4 X10*3/uL (1.2-4.9); Lymphocytes Percent Auto 17.4 % (20-40); Mean Corpuscular HGB Conc 32.4 g/dl (31.0-35.0); Mean Corpuscular Hemoglobin 30.3 pg (27.0-33.0); Mean Corpuscular Volume 93.4 fL (80.0-98.0); Mean Platelet Volume 9.5 fL (9.4-12.3); Monocytes Absolute Auto 0.7 X10*3/uL (0.1-1.2); Neutrophils Absolute Auto 5.4 x10*3/uL (2.0-8.3); Neutrophils Percent Auto 69.3 % (45-73); Platelet Count 246 X10*3/uL (160-400); Red Blood Count 2.71 X10*6/uL (4.20-5.50); Red Cell Distribution Width 13.2 % (11.0-16.0); White Blood Count 7.8 X10*3/uL (4.8-10.8)
[2023-12-08 07:01] LABS: PTT Heparin Drip 32.1 SEC (53-77.9)
[2023-12-08 07:23] LABS: Alanine Aminotransferase 79 U/L (0-31); Albumin Level 2.6 g/dL (3.5-5.0); Alkaline Phosphatase 59 U/L (39-117); Anion Gap 12 (12-20); Aspartate Amino Transferase 38 U/L (5-31); Bilirubin Total 0.3 mg/dL (0.0-1.0); Blood Urea Nitrogen 30 mg/dL (9-16); Carbon Dioxide 23 mmol/L (22-29); Chloride 108 mmol/L (96-108); Creatinine Clr Calc Pharmacy 51.7; Estimated Glomerular Filt Rate > 60; Glucose Fasting 101 mg/dL (60-99); Potassium 3.6 mmol/L (3.3-5.1); Sodium 139 mmol/L (135-145); Total Protein 5.6 g/dL (6.5-8.0)
[2023-12-08] MEDS: 0.9 % Sodium Chloride Flush 3 ML SYRINGE IVFLUSH ×3 (08:08→21:32)
[2023-12-08] MEDS: Folic Acid 1 MG TABLET PO (08:08)
[2023-12-08] MEDS: Docusate Sodium 100 MG CAPSULE PO (08:08)
[2023-12-08] MEDS: Apixaban 5 MG TABLET 10 MG PO ×2 (08:08→21:27)
--- NOTE | 2023-12-08 09:15 | P.PNOP_ITS ---
Subjective Subjective Date of Service: 12/08/23 Principal diagnosis: Pulmonary embolism, preop Interval history: POD 4 s/p LT hip melani resting in bed states she is tried from sitting in chair most of the day yesterday Physical Exam Vital Signs: Vital Signs: Last Vital Signs Temp 97.1 F 12/08/23 07:45 Pulse 93 12/08/23 07:45 Resp 20 12/08/23 07:45 BP 122/61 12/08/23 07:45 Pulse Ox 93 12/08/23 08:00 O2 Del Method Room Air 12/08/23 08:00 O2 Flow Rate 3 12/07/23 07:56 Oxygen Flow Rate 3 12/06/23 08:00 BMI result Body Mass Index 29.5 Const: General: cooperative, healthy appearing and no acute distress Resp: Effort & Inspection: normal respiratory effort and able to speak in complete sentences Cardio: Rate: regular rate Peripheral pulses: Peripheral pulses 2+ throughout GI: Palpation (GI): Soft to palpation Skin: General skin exam: no rashes or lesions noted Extrem: Other: bandage clean dry and intact. Jenifer intact. No erythema or effusion. Calf supple nontender. Neurovascularly intact. Procedures Date of Service Date of Service: 12/08/23 Progress Note: A&P Assessment and plan (1) History of left hip hemiarthroplasty: Status: Acute Assessment and Plan: * Continue pain mgmnt * Begin anticoag for dvt ppx * begin PT for LT hip melani posterior precautions * Dispo planning-med clearance Time Spent With Patient Time: Total time managing care of this patient today ____ minutes. Quality Stroke Does the patient have a stroke diagnosis?: No VTE Prior VTE?: No VTE Risk Level:: Medical - moderate - high VTE Device Contraindication: Treatment Not Indicated VTE Drug Contraindication: N/A - Med Ordered
[2023-12-08 13:50] LABS: Appearance Urine Clear; Color Urine Yellow; Glucose Urine UA Negative (Negative); Leukocyte Esterase Urine Negative (Negative); Nitrite Urine Positive (Negative); PH 6.5 (5.0-9.0); Specific Gravity - Urine 1.015 (1.005-1.025); UMIC TRIGGER UA YES; Urine Blood Negative (Negative); Urine Ketones Negative (Negative); Urine Protein Trace mg/dL (Neg-Trace)
[2023-12-08 13:55] LABS: Bacteria Urine 3+ (None Seen); Hyaline Casts Urine 0-2 /LPF (0-2); RBC Urine 0-2 /HPF (0-2); Squamous Epithelial Cell Urine 0-2 /HPF (0-2); WBC Urine 0-5 /HPF (0-5)
--- NOTE | 2023-12-08 15:55 | P.PNIM_ITS ---
Subjective Subjective Date of Service: 12/08/23 Interval History: hip fx,Pulm embolism Review of Systems Denies chest pain or shortness of breath no fever chills Physical Exam 2 Vital Signs: Vital Signs: Last Vital Signs Temp 97.3 F 12/08/23 15:11 Pulse 89 12/08/23 15:11 Resp 16 12/08/23 15:11 BP 135/62 12/08/23 15:11 Pulse Ox 95 12/08/23 15:11 O2 Del Method Room Air 12/08/23 15:11 O2 Flow Rate 3 12/07/23 07:56 Oxygen Flow Rate 3 12/06/23 08:00 BMI result Body Mass Index 29.5 Appearance: Alert.? Oriented X3.? cvs: rrr, [id number] , no murmur res: clear to auscultation ,no rhonchii or wheezing abd: no rebound or guarding ,nt, bs present. ext pulses present , no cyanosis . neuro: axo3 , nonfocal. Objective Data Active Medications Acetaminophen (Acetaminophen 325 Mg Tablet) 650 mg PO Q6H PRN PRN Reason: Pain, Mild (Pain Scale 1-3) Last Admin: 12/07/23 16:41 Dose: 650 mg Documented By: BRENT Apixaban (Apixaban 5 Mg Tablet) 10 mg PO BID LINDA Stop: 12/13/23 21:01 Last Admin: 12/08/23 08:08 Dose: 10 mg Documented By: MONICA Atorvastatin Calcium (Atorvastatin Calcium 10 Mg Tablet) 10 mg PO BEDTIME LINDA Last Admin: 12/07/23 20:13 Dose: 10 mg Documented By: ERNESTINA Benzonatate (Benzonatate 100 Mg Capsule) 100 mg PO TID PRN PRN Reason: Cough Last Admin: 12/02/23 20:11 Dose: 100 mg Documented By: SHELBY Divalproex Sodium (Divalproex Sodium 500 Mg Tablet.) 500 mg PO BEDTIME LINDA Last Admin: 12/07/23 20:13 Dose: 500 mg Documented By: ERNESTINA Docusate Sodium (Docusate Sodium 100 Mg Capsule) 100 mg PO DAILY PRN PRN Reason: Constipation Last Admin: 12/06/23 22:13 Dose: 100 mg Documented By: ERNESTINA Docusate Sodium (Docusate Sodium 100 Mg Capsule) 100 mg PO DAILY [facility] Last Admin: 12/08/23 08:08 Dose: 100 mg Documented By: MONICA Folic Acid (Folic Acid 1 Mg Tablet) 1 mg PO DAILY [facility] Last Admin: 12/08/23 08:08 Dose: 1 mg Documented By: MONICA Melatonin (Melatonin 3 Mg Tablet) 6 mg PO BEDTIME PRN PRN Reason: Insomnia Morphine Sulfate (Morphine Sulfate 2 Mg/Ml Cartridge) 2 mg IVPUSH Q4H PRN; Protocol PRN Reason: Pain, Severe (Pain Scale 7-10) Last Admin: 12/08/23 04:01 Dose: 2 mg Documented By: ERNESTINA Omeprazole (Omeprazole 20 Mg Capsule.) 20 mg PO BEDTIME [facility] Last Admin: 12/07/23 20:13 Dose: 20 mg Documented By: ERNESTINA Ondansetron HCl (Ondansetron Hcl 4 Mg/2 Ml Vial) 4 mg IVPUSH Q8H PRN PRN Reason: Nausea and Vomiting Last Admin: 11/30/23 05:30 Dose: 4 mg Documented By: SAMUEL Risperidone (Risperidone Microspheres 25 Mg/2 Ml Syringe) 25 mg IM Q14D [facility] Sodium Chloride (0.9 % Sodium Chloride Flush 3 Ml Syringe) 3 ml IVFLUSH QSHIFT [facility] Last Admin: 12/08/23 08:08 Dose: 3 ml Documented By: MONICA Labs 12/08/23 06:16 12/08/23 06:16 Labs: Laboratory Results - last 24 hr 12/08/23 12/08/23 12/08/23 06:16 10:05 13:22 MCV 93.4 MCH 30.3 MCHC 32.4 RDW 13.2 Plt Count 246 MPV 9.5 Immature Gran % (Auto) 0.8 H Neut % (Auto) 69.3 Lymph % (Auto) 17.4 L [place] % (Auto) 9.0 Eos % (Auto) 3.1 Baso % (Auto) 0.4 Lymph # (Auto) 1.4 [place] # (Auto) 0.7 Eos # (Auto) 0.2 Baso # (Auto) 0.0 Abs Immat Gran (auto) 0.06 H Absolute Neuts (auto) 5.4 Absolute Nucleated RBC 0.000 Nucleated RBC % (auto) 0.0 aPTT Heparin Protocol 32.1 L D Anion Gap 12 Estim Creat Clear Calc 51.7 Estimated GFR > 60 Fasting Glucose 101 H Calcium 9.0 Total Bilirubin 0.3 AST 38 H ALT 79 H Alkaline Phosphatase 59 Total Protein 5.6 L Albumin 2.6 L Urine Color Yellow Urine Appearance Clear Urine pH 6.5 Ur Specific [place] 1.015 Urine Protein Trace Urine Glucose (UA) Negative Urine Ketones Negative Urine Blood Negative Urine Nitrite Positive H Ur Leukocyte Esterase Negative Urine RBC 0-2 Urine WBC 0-5 Ur Squamous Epith Cells 0-2 Urine Bacteria 3+ Hyaline Casts 0-2 Blood Type A Positive Antibody Screen NEGATIVE Crossmatch See Detail Assessment and Plan (1) Pulmonary embolism: Status: Acute (2) History of left hip hemiarthroplasty: Status: Acute Plan 78yo with HTN, HLD, hx TIA, hx DVT, hx breast CA, GERD, bipolar I disorderm became lightheaded suddenly then fell on her L hip;found to have L femoral neck fracture and submassive PE with R heart strain. 1.Acute hypoxic resp failure due to submassive PE/R heart strain/NSTEMI from bilateral DVTs -pulmonary embolectomy/IVC filter 12/02/23 -DC heparin drip at this time postopanemia -added 1 prbc -Eliquis 10 mg b.i.d. x7 days -follow CBC 2.L hip fx -POD(2) L hemiarthroplasty under spinal anesthesia -as per ortho 3.STEFANI/CKD3 -responded to volume repletion -follow renals/divalents 4.HTN -acceptable control on current therapies -add back ACEI/Lasix when it clinically appropriate 5.Bipolar disorder -stable and well compensated Heparin drip DNR DNI In my clinical judgment, the patient requires continued inpatient hospitalization for the following reasons: IV heparin, postoperative care Quality Stroke Does the patient have a stroke diagnosis?: No VTE Prior VTE?: No VTE Risk Level:: Medical - moderate - high VTE Device Contraindication: Treatment Not Indicated VTE Drug Contraindication: N/A - Med Ordered
[2023-12-08] MEDS: Acetaminophen 325 MG TABLET 650 MG PO (16:04)
[2023-12-08] MEDS: polyethylene glycoL 3350 17 GM POWD.PACK PO (16:04)
[2023-12-08] MEDS: Divalproex Sodium 500 MG TABLET.DR PO (21:26)
[2023-12-08] MEDS: Omeprazole 20 MG CAPSULE.DR PO (21:27)
[2023-12-08] MEDS: Atorvastatin Calcium 10 MG TABLET PO (21:27)
[2023-12-09 04:00] VITALS: BP 137/75; PULSE 92; RESP 18; TEMP 36.6; O2SAT 92
[2023-12-09 06:31] LABS: MANUAL DIFF FLAG NO
[2023-12-09 06:51] LABS: Basophils Absolute Auto 0.1 X10*3/uL (0.0-0.2); Basophils Percent Auto 0.6 % (0-2); Eosinophils Absolute Auto 0.2 X10*3/uL (0.0-0.4); Eosinophils Percent Auto 2.7 % (0-4); Hematocrit 30.2 % (37.0-47.0); Hemoglobin 10.1 g/dl (12.0-16.0); Imm Gran Abs Auto 0.18 X10*3/uL (0.00-0.03); Lymphocytes Absolute Auto 1.4 X10*3/uL (1.2-4.9); Mean Corpuscular HGB Conc 33.4 g/dl (31.0-35.0); Mean Corpuscular Hemoglobin 30.5 pg (27.0-33.0); Mean Corpuscular Volume 91.2 fL (80.0-98.0); Mean Platelet Volume 9.3 fL (9.4-12.3); Monocytes Absolute Auto 0.9 X10*3/uL (0.1-1.2); Monocytes Percent Auto 9.9 % (2-11); Neutrophils Absolute Auto 6.1 x10*3/uL (2.0-8.3); Neutrophils Percent Auto 68.8 % (45-73); Platelet Count 259 X10*3/uL (160-400); Red Blood Count 3.31 X10*6/uL (4.20-5.50); Red Cell Distribution Width 13.7 % (11.0-16.0); White Blood Count 8.9 X10*3/uL (4.8-10.8)
[2023-12-09 07:46] LABS: Alanine Aminotransferase 69 U/L (0-31); Albumin Level 2.7 g/dL (3.5-5.0); Alkaline Phosphatase 57 U/L (39-117); Anion Gap 12 (12-20); Aspartate Amino Transferase 30 U/L (5-31); Bilirubin Total 0.4 mg/dL (0.0-1.0); Blood Urea Nitrogen 31 mg/dL (9-16); Calcium 9.3 mg/dL (8.4-10.2); Carbon Dioxide 23 mmol/L (22-29); Chloride 108 mmol/L (96-108); Creatinine Clr Calc Pharmacy 57.5; Estimated Glomerular Filt Rate > 60; Glucose Fasting 109 mg/dL (60-99); Sodium 139 mmol/L (135-145); Total Protein 5.6 g/dL (6.5-8.0)
[2023-12-09 08:00] VITALS: BP 136/67; PULSE 95; RESP 19; TEMP 36.2; O2SAT 92; O2SAT 93
[2023-12-09] MEDS: Morphine Sulfate 2 MG/ML CARTRIDGE IVPUSH (08:21)
[2023-12-09] MEDS: Apixaban 5 MG TABLET 10 MG PO (08:22)
[2023-12-09] MEDS: Folic Acid 1 MG TABLET PO (08:22)
[2023-12-09] MEDS: polyethylene glycoL 3350 17 GM POWD.PACK PO (08:22)
[2023-12-09] MEDS: Docusate Sodium 100 MG CAPSULE PO (08:22)
[2023-12-09] MEDS: 0.9 % Sodium Chloride Flush 3 ML SYRINGE IVFLUSH (08:25)
[2023-12-09 08:58] VITALS: BP 136/67; PULSE 95; O2SAT 93
[2023-12-09 11:09] VITALS: BP 123/58; PULSE 109; RESP 20; TEMP 36.3; O2SAT 95
--- NOTE | 2023-12-09 11:16 | PM.HEMONCPN ---
Medical Summary - Medical Summary Date of Service: 12/09/23 Chief complaint: Tired Primary Care Provider: Jesusita Jo MD Interval History Interval history: Jing Bautista is a 78 year old female was brought in by ambulance after a fall at home and found to have pulmonary emboli and bilateral lower extremity DVT. Patient is a poor historian, as per chart past medical history significant for cognitive disorder, history of TIA, hypertension, hyperlipidemia and bipolar disorder. She is unable to provide any history of her breast cancer that is mentioned in the chart. She also does not recall previous episode of thromboembolism. She thinks it was only in the leg and not in the lungs. Patient felt a tingling sensation in her entire body 2 days back which caused her to lose balance and she fell landing on her left hip. She had pain in her left hip extending down her left leg and thigh. Workup revealed acute subcapital left femoral neck fracture. EKG demonstrated sinus tachycardia with septal infarction. Other than fatigue, she has no complaints such as abdominal pain, shortness of breath, fever or chills. Review of Systems - Neurologic Reports hearing normal, Denies abnormal gait, Reports weakness PMFSH Medical History: Medical History (Last Reviewed 12/05/23 @ 09:43 by Rylee Leon OTR-L) Bipolar 1 disorder Breast cancer Chronic low back pain Cognitive disorder DVT (deep venous thrombosis) Gait disorder Generalized muscle weakness GERD (gastroesophageal reflux disease) Hearing impairment HTN (hypertension) Hyperlipidemia Obesity Rash of neck TIA (transient ischemic attack) Tremors of nervous system Family History: Family History (Last Reviewed 11/30/23 @ 11:04 by Wayne Shields MD) Brother Alcohol abuse Polio Substance use disorder Brother Cancer Sister Stroke Mental health disorder Mother HTN (hypertension) Sister Cancer Surgical History: Surgical History (Last Reviewed 12/05/23 @ 09:43 by Rylee Leon OTR-L) H/O mastectomy Social History: Social History (Last Reviewed 11/30/23 @ 11:04 by Wayne Shields MD) Living Situation History: Household Members: None Housing: Condominium Do you presently have visiting nurse or other home services: Yes Alcohol History: Unable to assess alcohol history related to: Refusing to respond Tobacco History: Patient Tobacco Use Status: Former Tobacco user Tobacco use type: Smokeless Tobacco Years Smoked: 30 Smoke Quit Date: 11 years ago e-Cigarette/Vaping Use: Never Used Second Hand Smoke Exposure: No Advance Directives: Advance Directives Date on File: 05/01/22 Occupation Assessmet: service: No Sex/Gender Assessment: Sexual orientation: Straight/Heterosexual Home Medications and Allergies Current Medications: Current Medications Acetaminophen (Acetaminophen 325 Mg Tablet) 650 mg PO Q6H PRN PRN Reason: Pain, Mild (Pain Scale 1-3) Last Admin: 12/07/23 16:41 Dose: 650 mg Apixaban (Apixaban 5 Mg Tablet) 10 mg PO BID [facility] Stop: 12/13/23 21:01 Last Admin: 12/09/23 08:22 Dose: 10 mg Atorvastatin Calcium (Atorvastatin Calcium 10 Mg Tablet) 10 mg PO BEDTIME [facility] Last Admin: 12/08/23 21:27 Dose: 10 mg Benzonatate (Benzonatate 100 Mg Capsule) 100 mg PO TID PRN PRN Reason: Cough Last Admin: 12/02/23 20:11 Dose: 100 mg Divalproex Sodium (Divalproex Sodium 500 Mg Tablet.) 500 mg PO BEDTIME [facility] Last Admin: 12/08/23 21:26 Dose: 500 mg Docusate Sodium (Docusate Sodium 100 Mg Capsule) 100 mg PO DAILY PRN PRN Reason: Constipation Last Admin: 12/06/23 22:13 Dose: 100 mg Docusate Sodium (Docusate Sodium 100 Mg Capsule) 100 mg PO DAILY [facility] Last Admin: 12/09/23 08:22 Dose: 100 mg Folic Acid (Folic Acid 1 Mg Tablet) 1 mg PO DAILY [facility] Last Admin: 12/09/23 08:22 Dose: 1 mg Melatonin (Melatonin 3 Mg Tablet) 6 mg PO BEDTIME PRN PRN Reason: Insomnia Morphine Sulfate (Morphine Sulfate 2 Mg/Ml Cartridge) 2 mg IVPUSH Q4H PRN; Protocol PRN Reason: Pain, Severe (Pain Scale 7-10) Last Admin: 12/09/23 08:21 Dose: 2 mg Omeprazole (Omeprazole 20 Mg Capsule.) 20 mg PO BEDTIME [facility] Last Admin: 12/08/23 21:27 Dose: 20 mg Ondansetron HCl (Ondansetron Hcl 4 Mg/2 Ml Vial) 4 mg IVPUSH Q8H PRN PRN Reason: Nausea and Vomiting Last Admin: 11/30/23 05:30 Dose: 4 mg Polyethylene Glycol (Polyethylene Glycol 3350 17 Gm Powd.Pack) 17 gm PO DAILY [facility] Last Admin: 12/09/23 08:22 Dose: 17 gm Risperidone (Risperidone Microspheres 25 Mg/2 Ml Syringe) 25 mg IM Q14D [facility] Sodium Chloride (0.9 % Sodium Chloride Flush 3 Ml Syringe) 3 ml IVFLUSH QSHIFT [facility] Last Admin: 12/09/23 08:25 Dose: 3 ml Home Medications ?Medication ?Instructions ?Recorded ?Confirmed ?Type folic acid 1 mg tablet 1 mg PO DAILY 09/30/22 11/29/23 History risperidone microspheres 25 mg/2 25 mg IM Q14D 09/30/22 11/29/23 History mL intramuscular susp,ext release (Risperdal Consta) nortriptyline 10 mg capsule 10 mg PO BEDTIME 08/15/23 11/29/23 History divalproex 500 mg tablet,delayed 500 mg PO BEDTIME 11/29/23 11/29/23 History release docusate sodium 100 mg capsule 100 mg PO DAILY 11/29/23 11/29/23 History furosemide 20 mg tablet 20 mg PO DAILY 11/29/23 11/29/23 History lisinopril 5 mg tablet 5 mg PO DAILY 11/29/23 11/29/23 History Allergies Allergy/AdvReac Type Severity Reaction Status Date / Time No Known Allergies Allergy Verified 12/04/23 06:44 [No Known Allergies*] Exam Vital signs: Vital Signs Temp 97.3 F 12/09/23 11:09 Pulse 109 H 12/09/23 11:09 Resp 20 12/09/23 11:09 BP 123/58 L 12/09/23 11:09 Pulse Ox 95 12/09/23 11:09 O2 Del Method Room Air 12/09/23 11:09 O2 Flow Rate 3 12/07/23 07:56 Intake & Output 12/08/23 12/09/23 12/09/23 18:59 06:59 18:59 Intake Total 910 / 910 Output Total 425 / 1225 800 / 1225 Balance 485 / -315 -800 / -315 Urine Output (Average ml/kg/hr) 0.47 0.88 Intake: Intake, Oral Amount 460 / 460 Intake (Blood Product) Amount 350 / 350 Red Blood Cells (E0336) Unit 350 / 350 [id number] Intake, IV Amount 100 / 100 0.9 % Sodium Chloride 100 ml @ 100 / 100 100 mls/hr IV ONCE ONE Rx#: [id number] Output: Output, Urine Amount 425 / 925 500 / 925 Output, Urine Amount (Catheter) 300 / 300 Female External 300 / 300 Other: Breakfast % Eaten 100% Lunch % Eaten 100% Urine Color Yellow Weight 75.5 kg BMI result Body Mass Index 29.5 - Constitutional Present: no acute distress, obese, cooperative - Routine HEENT Exam Head: Present: normal inspection - Routine Respiratory Exam Absent: accessory muscle use, stridor, wheezes - Routine Cardiovascular Exam Cardiovascular: Present: S1, S2, tachycardia - Routine Abdominal Exam Present: soft - Routine Extremities Exam Present: pulses intact Data - Labs CBC & Chem 7: 12/09/23 06:11 12/09/23 06:11 Labs: Laboratory Last Values WBC 8.9 X10*3/uL (4.8-10.8) 12/09/23 06:11 RBC 3.31 X10*6/uL (4.20-5.50) L D 12/09/23 06:11 Hgb 10.1 g/dl (12.0-16.0) L D 12/09/23 06:11 Hct 30.2 % (37.0-47.0) L 12/09/23 06:11 MCV 91.2 fL (80.0-98.0) 12/09/23 06:11 MCH 30.5 pg (27.0-33.0) 12/09/23 06:11 MCHC 33.4 g/dl (31.0-35.0) 12/09/23 06:11 RDW 13.7 % (11.0-16.0) 12/09/23 06:11 Plt Count 259 X10*3/uL (160-400) 12/09/23 06:11 MPV 9.3 fL (9.4-12.3) L 12/09/23 06:11 Immature Gran % (Auto) 2.0 % (0.0-0.4) H 12/09/23 06:11 Neut % (Auto) 68.8 % (45-73) 12/09/23 06:11 Lymph % (Auto) 16.0 % (20-40) L 12/09/23 06:11 [place] % (Auto) 9.9 % (2-11) 12/09/23 06:11 Eos % (Auto) 2.7 % (0-4) 12/09/23 06:11 Baso % (Auto) 0.6 % (0-2) 12/09/23 06:11 Lymph # (Auto) 1.4 X10*3/uL (1.2-4.9) 12/09/23 06:11 [place] # (Auto) 0.9 X10*3/uL (0.1-1.2) 12/09/23 06:11 Eos # (Auto) 0.2 X10*3/uL (0.0-0.4) 12/09/23 06:11 Baso # (Auto) 0.1 X10*3/uL (0.0-0.2) 12/09/23 06:11 Abs Immat Gran (auto) 0.18 X10*3/uL (0.00-0.03) H 12/09/23 06:11 Absolute Neuts (auto) 6.1 x10*3/uL (2.0-8.3) 12/09/23 06:11 Absolute Nucleated RBC 0.000 X10*3/uL (0.0-0.012) 12/09/23 06:11 Nucleated RBC % (auto) 0.0 /100WBC (0.0-0.2) 12/09/23 06:11 Hold Purple Top SEE NOTE 11/30/23 07:12 PT 11.6 SEC (11.1-13.3) 11/30/23 07:12 INR 1.0 (0.9-1.1) 11/30/23 07:12 aPTT Heparin Protocol 32.1 SEC (53-77.9) L D 12/08/23 06:16 Sodium 139 mmol/L (135-145) 12/09/23 06:11 Potassium 4.0 mmol/L (3.3-5.1) 12/09/23 06:11 Chloride 108 mmol/L (96-108) 12/09/23 06:11 Carbon Dioxide 23 mmol/L (22-29) 12/09/23 06:11 Anion Gap 12 (12-20) 12/09/23 06:11 BUN 31 mg/dL (9-16) H 12/09/23 06:11 Creatinine 0.81 mg/dL (0.5-1.4) 12/09/23 06:11 Estim Creat Clear Calc 57.5 12/09/23 06:11 Estimated GFR > 60 12/09/23 06:11 Random Glucose 112 mg/dL (60-115) 12/06/23 06:28 Fasting Glucose 109 mg/dL (60-99) H 12/09/23 06:11 Calcium 9.3 mg/dL (8.4-10.2) 12/09/23 06:11 Total Bilirubin 0.4 mg/dL (0.0-1.0) 12/09/23 06:11 AST 30 U/L (5-31) 12/09/23 06:11 ALT 69 U/L (0-31) H 12/09/23 06:11 Alkaline Phosphatase 57 U/L (39-117) 12/09/23 06:11 Troponin I High Sens 73.0 ng/L (<3.5-17.0) H* 12/04/23 05:56 B-Natriuretic Peptide 97 pg/mL (<100) 12/01/23 08:25 Total Protein 5.6 g/dL (6.5-8.0) L 12/09/23 06:11 Albumin 2.7 g/dL (3.5-5.0) L 12/09/23 06:11 Hold Yellow Top See Note 12/01/23 08:25 Urine Color Yellow 12/08/23 13:22 Urine Appearance Clear 12/08/23 13:22 Urine pH 6.5 (5.0-9.0) 12/08/23 13:22 Ur Specific [place] 1.015 (1.005-1.025) 12/08/23 13:22 Urine Protein Trace mg/dL (Neg-Trace) 12/08/23 13:22 Urine Glucose (UA) Negative mg/dL (Negative) 12/08/23 13:22 Urine Ketones Negative mg/dL (Negative) 12/08/23 13:22 Urine Blood Negative (Negative) 12/08/23 13:22 Urine Nitrite Positive (Negative) H 12/08/23 13:22 Ur Leukocyte Esterase Negative (Negative) 12/08/23 13:22 Urine RBC 0-2 /HPF (0-2) 12/08/23 13:22 Urine WBC 0-5 /HPF (0-5) 12/08/23 13:22 Ur Squamous Epith Cells 0-2 /HPF (0-2) 12/08/23 13:22 Urine Bacteria 3+ (None Seen) 12/08/23 13:22 Hyaline Casts 0-2 /LPF (0-2) 12/08/23 13:22 Influenza Type A (PCR) NEGATIVE (Negative) 11/29/23 11:47 Influenza Type B (PCR) NEGATIVE (Negative) 11/29/23 11:47 RSV RNA Qual (PCR) NEGATIVE (Negative) 11/29/23 11:47 SARS-CoV-2 RNA (RT-PCR) NEGATIVE (Negative) 11/29/23 11:47 Blood Type A Positive 12/08/23 10:05 Antibody Screen NEGATIVE 12/08/23 10:05 Crossmatch See Detail 12/08/23 10:05 - Imaging Radiologist's impression: ITS Impressions Cervical Spine CT 11/29/23 12:26 IMPRESSION: Head: No acute intracranial hemorrhage. There are scattered chronic small vessel ischemic changes within the periventricular white matter. Grossly no evidence of acute territorial infarct. Cervical Spine: No acute fracture and no posttraumatic spinal subluxation. There is advanced multilevel degenerative spondylosis of the cervical spine. Canal patency is not well assessed on this examination due to inherent limitations of CT without intrathecal contrast. Head CT 11/29/23 12:27 IMPRESSION: Head: No acute intracranial hemorrhage. There are scattered chronic small vessel ischemic changes within the periventricular white matter. Grossly no evidence of acute territorial infarct. Cervical Spine: No acute fracture and no posttraumatic spinal subluxation. There is advanced multilevel degenerative spondylosis of the cervical spine. Canal patency is not well assessed on this examination due to inherent limitations of CT without intrathecal contrast. Chest X-Ray 11/29/23 12:31 IMPRESSION: 1. Clear lungs. 2. Mild asymmetric elevation of the right hemidiaphragm. Hip/Pelvis X-Ray 11/29/23 12:31 IMPRESSION: 1. Acute subcapital left femoral neck fracture. 2. 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 3. Large volume of desiccated stool in the rectum and colon. Chest CTA 11/29/23 19:28 IMPRESSION: 1. Right sided segmental and subsegmental pulmonary emboli involving the upper, mid, and lower lobes. Left-sided pulmonary emboli along the distal left main pulmonary artery with segmental and subsegmental extension in the left upper and lower lobes. 2. Mild septal bowing suggesting elements of heart strain. No reflux of contrast into the hepatic veins. 3. Small hiatal hernia. 4. Decreased hepatic attenuation suggesting hepatic steatosis. This critical result was discussed with Dr. Cy Hendrix by telephone on 11/29/2023 8:47 PM and it was ascertained that the content and urgency of the report was understood at the time of direct communication. Venous Duplex 11/30/23 09:24 IMPRESSION: Bilateral nonocclusive thrombus involving the right proximal femoral vein and the left femoral vein and popliteal vein. Chest X-Ray 12/04/23 15:08 IMPRESSION: * Clear lungs. Assessment and Plan Patient Active problem list reviewed?: Yes (1) Pulmonary embolism Status: Acute Assessment and plan: 1. This is a 78-year-old woman with bilateral lower extremity DVT and submassive pulmonary embolism who unfortunately also suffered left femoral fracture and needs surgery. CT angiogram of chest revealed right-sided segmental and subsegmental pulmonary emboli involving all lobes, left-sided pulmonary emboli along the distal left main pulmonary artery, mild septal bowing suggesting elements of heart strain. Lower extremity Doppler revealed bilateral nonocclusive thrombi involving right proximal femoral vein and left femoral vein and popliteal veins. Because of the extent of clot burden and right heart strain, she has had significant elevation of cardiac enzymes as well. Echocardiogram is pending from today. Patient has undergone IVC filter placement, surgical thrombectomy and surgery for her left hip fracture. She tolerated all this well she has been transitioned to Eliquis. She received 1 unit PRBC. Her blood counts are stable and she has been transitioned to Eliquis. I recommend she continue Eliquis/anticoagulation long-term. IVC filter will have to be removed in the next 3-6 months. . - Time Spent With Patient Time Spent with Patient (in minutes): 15
--- NOTE | 2023-12-09 11:25 | MHC.CM.PN ---
Second IMM given 12/08. Pt is medically cleared for D/C to [facility] at [facility] at 3:30pm via BLS/[place]. Pt aware and in agreement with plan.
--- NOTE | 2023-12-09 13:34 | PM.DS ---
DS: Providers Provider Date of Service: 12/09/23 Date of admission: 11/29/23 15:23 Date of discharge: 12/09/23 Primary care physician: Jesusita Jo MD Consults: 11/29/23 15:42 Consult to Cardiology Routine Consulting Provider: [facility] Reason for consultation: NSTEMI, needs clearance for surgery for hip fracture 11/29/23 16:18 Consult to Orthopedics Routine Consulting Provider: [facility] Reason for consultation: Acute subcapital left femoral neck fracture 11/30/23 09:13 Consult to Hematology / Oncology Routine Consulting Provider: [facility] Reason for consultation: Submassive PE/R heart strain. OR for femur fx repair Consult to Pulmonology Routine Consulting Provider: [facility] Reason for consultation: Submassive PE/R heart strain. OR for femur fx repair 11/30/23 09:16 Consult to Vascular Surgery Routine Consulting Provider: [facility] Reason for consultation: IVC filter 11/30/23 13:48 Consult to Wound Care Routine Reason for consultation: Left hip fx Has provider been notified: Yes 12/01/23 07:42 Consult to Anesthesiology Routine Consulting Provider: Anesthesiologist Reason for consultation: Submassive PE. Needs hip hemiartrhoplasty Attending physician on discharge: Chari Mack Discharging clinician: Chari Mack DS: Diagnosis Discharge Diagnosis (1) Pulmonary embolism: Status: Acute DS: Summary Hospital Course Hospital Course: 78-year-old female with a PMH significant for?HTN, HLD, cognitive disorder, hx of TIA, hx of DVT, hx of breast cancer, GERD, and bipolar I disorder who presents to the ED for evaluation of left thigh?pain after fall at home. Patient reports she was walking into her kitchen this morning when she had a ?spell that came over me from head to toe?. Describes this as a ?tingling? and ?ricks? over her entire body that caused her to lose her balance and she fell to the floor, landing on her left hip. Denies head strike or LOC. States has not had an episode like this before. After fall, patient had significant pain in her left hip extending down her left thigh. Reports noticing she became short of breath shortly after fall. Was able to call EMS who brought her to the emergency room for further evaluation. No chest pain/pressure, palpitations. Denies fever, chills, nausea, vomiting, abdominal pain. States she has been eating and drinking normally. No recent illnesses. Reports a remote history of smoking. In the ED labs were significant for leukocytosis of 12.0, BUN 33, creatinine 1.42, and initial troponin 54.6 with repeat 915.4. No significant electrolyte abnormalities. Stable H&H. CXR showed clear lungs. X-ray of hip and pelvis?showed acute subcapital left femoral neck fracture, as well as [id number] osteoarthritis of the bilateral hips and large volume of desiccated stool in the rectum and colon. CT of head found no acute intracranial hemorrhage but did show scattered chronic small-vessel ischemic changes. CT of cervical spine found no acute fracture or posttraumatic subluxation, but advanced multilevel degenerative spondylolysis. EKG demonstrated sinus tachycardia with occasional PVC with nonspecific ST and T-wave abnormalities. Repeat EKG showed sinus tachycardia of 158 with septal infarct now present. Pt was treated with ondansetron, IVF, morphine, and started on a heparin drip. Pt will be admitted to the hospital for treatment and further evaluation of NSTEMI and left hip fracture. Hospital course: Patient was admitted because felt lightheaded and fall-found to have left hip fracture and also found to acute hypoxemic respiratory failure possibly in the setting of PE/right heart strain/elevated troponins: Patient was started on IV heparin and seen by vascular, Cardiology: Patient was subsequently had preliminary embolectomy and IVC filter on12/02/23. echo:Normal left ventricular size and systolic function. There is mildly increased left ventricular wall thickness. The visually estimated ejection fraction is between 60-65%. There is no evidence of regional wall motion abnormalities. Diastolic function is indeterminate on the basis of available data.cardiology -possible syncope ,nstemi sec to pulmonary embolism. In addition subsequently patient got left hip hemiarthroplasty also done. Patient seen by vascular and hematology-started on Eliquis 10 mg po bid ( until 12/14/23 ) , then switch to eliquis 5 mg po bid ( 12/15/23). hematology- Eliquis/anticoagulation long-term. IVC filter will have to be removed in the next 3-6 months. postop anemia : received 1 prbc : h/h : 06/23.2 , moniter cbc outpatient. plan: Continue on Eliquis 10 mg po bid ( until 12/14/23 ) , then switch to eliquis 5 mg po bid ( 12/15/23). moniter cbc outpatient. Follow-up with Hematology outpatient. Follow-up with ortho-please see discharge instructions. Follow-up with vascular-IVC filter will have to be removed in the next 3-6 months. Time Attestation Total time managing care of this patient today: 40 mintues. Discharge Coordination Time (in mins): 40 min Quality: Safe Use of Opioids Does Pt have an Active Cancer Diagnosis on the Problem List?: No Quality: Stroke Does the patient have a stroke diagnosis?: No Physical Exam Vital Signs: Vital Signs: Last Vital Signs Temp 97.3 F 12/09/23 11:09 Pulse 109 H 12/09/23 11:09 Resp 20 12/09/23 11:09 BP 123/58 L 12/09/23 11:09 Pulse Ox 95 12/09/23 11:09 O2 Del Method Room Air 12/09/23 11:09 O2 Flow Rate 3 12/07/23 07:56 Oxygen Flow Rate 3 12/06/23 08:00 BMI result Body Mass Index 29.5 Appearance: Alert.? Oriented X3.? cvs: rrr, [id number] , no murmur res: clear to auscultation ,no rhonchii or wheezing abd: no rebound or guarding ,nt, bs present. ext pulses present , no cyanosis . hip left side -operation area -bandage clean dry and intact. Jenifer intact. No erythema or effusion. Calf supple nontender. neuro: axo3 , nonfocal. DS: Data Data Completed and Pending Pending studies at discharge: Pending at discharge 12/04/23 08:18 Surgical [PTH] Routine Labs on day of discharge: Laboratory Results - last 24 hr 12/08/23 12/08/23 12/09/23 10:05 13:22 06:11 WBC 8.9 RBC 3.31 L D Hgb 10.1 L D Hct 30.2 L MCV 91.2 MCH 30.5 MCHC 33.4 RDW 13.7 Plt Count 259 MPV 9.3 L Immature Gran % (Auto) 2.0 H Neut % (Auto) 68.8 Lymph % (Auto) 16.0 L [place] % (Auto) 9.9 Eos % (Auto) 2.7 Baso % (Auto) 0.6 Lymph # (Auto) 1.4 [place] # (Auto) 0.9 Eos # (Auto) 0.2 Baso # (Auto) 0.1 Abs Immat Gran (auto) 0.18 H Absolute Neuts (auto) 6.1 Absolute Nucleated RBC 0.000 Nucleated RBC % (auto) 0.0 Sodium 139 Potassium 4.0 Chloride 108 Carbon Dioxide 23 Anion Gap 12 BUN 31 H Creatinine 0.81 Estim Creat Clear Calc 57.5 Estimated GFR > 60 Fasting Glucose 109 H Calcium 9.3 Total Bilirubin 0.4 AST 30 ALT 69 H Alkaline Phosphatase 57 Total Protein 5.6 L Albumin 2.7 L Urine Color Yellow Urine Appearance Clear Urine pH 6.5 Ur Specific [place] 1.015 Urine Protein Trace Urine Glucose (UA) Negative Urine Ketones Negative Urine Blood Negative Urine Nitrite Positive H Ur Leukocyte Esterase Negative Urine RBC 0-2 Urine WBC 0-5 Ur Squamous Epith Cells 0-2 Urine Bacteria 3+ Hyaline Casts 0-2 Crossmatch See Detail Imaging Chest x-ray: Radiologist's impression: ITS Impressions Cervical Spine CT 11/29/23 12:26 IMPRESSION: Head: No acute intracranial hemorrhage. There are scattered chronic small vessel ischemic changes within the periventricular white matter. Grossly no evidence of acute territorial infarct. Cervical Spine: No acute fracture and no posttraumatic spinal subluxation. There is advanced multilevel degenerative spondylosis of the cervical spine. Canal patency is not well assessed on this examination due to inherent limitations of CT without intrathecal contrast. Head CT 11/29/23 12:27 IMPRESSION: Head: No acute intracranial hemorrhage. There are scattered chronic small vessel ischemic changes within the periventricular white matter. Grossly no evidence of acute territorial infarct. Cervical Spine: No acute fracture and no posttraumatic spinal subluxation. There is advanced multilevel degenerative spondylosis of the cervical spine. Canal patency is not well assessed on this examination due to inherent limitations of CT without intrathecal contrast. Chest X-Ray 11/29/23 12:31 IMPRESSION: 1. Clear lungs. 2. Mild asymmetric elevation of the right hemidiaphragm. Hip/Pelvis X-Ray 11/29/23 12:31 IMPRESSION: 1. Acute subcapital left femoral neck fracture. 2. 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 3. Large volume of desiccated stool in the rectum and colon. Chest CTA 04/06/24 19:28 IMPRESSION: 1. Right sided segmental and subsegmental pulmonary emboli involving the upper, mid, and lower lobes. Left-sided pulmonary emboli along the distal left main pulmonary artery with segmental and subsegmental extension in the left upper and lower lobes. 2. Mild septal bowing suggesting elements of heart strain. No reflux of contrast into the hepatic veins. 3. Small hiatal hernia. 4. Decreased hepatic attenuation suggesting hepatic steatosis. This critical result was discussed with Dr. Cy Hendrix by telephone on 11/29/2023 8:47 PM and it was ascertained that the content and urgency of the report was understood at the time of direct communication. Venous Duplex 11/30/23 09:24 IMPRESSION: Bilateral nonocclusive thrombus involving the right proximal femoral vein and the left femoral vein and popliteal vein. Chest X-Ray 12/04/23 15:08 IMPRESSION: * Clear lungs. echo:Normal left ventricular size and systolic function. There is mildly increased left ventricular wall thickness. The visually estimated ejection fraction is between 60-65%. - Right ventricular is poorly visualized. - There is no evidence of pericardial effusion. Discharge Plan Discharge Anticipated Discharge Date/Time: 12/09/23 13:16 Patient Disposition: er SNF Discharge Diagnosis: bilateral lower extremity DVT and submassive pulmonary embolism Referrals: [facility] [Outside] - 1 Week Jesusita Jo MD [Primary Care Provider] - 1 Week Latrice Robb PA-C [Physician Nurse Informaticist] - 1 Week Harlan Medellin MD [Physician] - 1 Week Discharge Medications: New Eliquis 5 mg Tablet 10 mg PO BID Qty: 60 0RF Rx Instructions: take Eliquis 10 mg (2 tabs) p.o. b.i.d. until 12/14/23 , then switched to Eliquis 5 mg p.o. b.i.d. on12/15/23. Continued acetaminophen 650 mg tablet extended release 650 mg PO Q6H PRN (Reason: pain) Qty: 60 0RF pantoprazole 20 mg tablet,delayed release (DR/EC) 20 mg PO BEDTIME Qty: 90 1RF simvastatin 20 mg tablet 20 mg PO BEDTIME Qty: 90 1RF lisinopril 5 mg tablet 5 mg PO DAILY furosemide 20 mg tablet 20 mg PO DAILY divalproex 500 mg tablet,delayed release (DR/EC) 500 mg PO BEDTIME docusate sodium 100 mg Capsule 100 mg PO DAILY folic acid 1 mg tablet 1 mg PO DAILY Risperdal Consta 25 mg/2 mL suspension,extended rel recon 25 mg IM Q14D nortriptyline 10 mg capsule 10 mg PO BEDTIME Discharge Orders: Discharge Order (Routine); Ordered 12/09/23 Ordered By: Chari Mack Diet: Advance to usual diet Activity on Discharge: As tolerated Stand Alone Forms: Patient Portal Discharge page Print Language: Icelandic Activity Restrictions/Additional Instructions: Physical Therapy for total hip arthroplasty: posterior precautions, gait training, ROM, strength Limit stair climbing No showering, no tub bath-keep dressing clean, dry and intact No driving x6 weeks Follow up with [facility] in 2 weeks Care Plan Goals: Patient was admitted because felt lightheaded and fall-found to have left hip fracture and also found to acute hypoxemic respiratory failure possibly in the setting of PE/right heart strain/elevated troponins: Patient was started on IV heparin and seen by vascular, Cardiology: Patient was subsequently had preliminary embolectomy and IVC filter on12/02/23. echo:Normal left ventricular size and systolic function. There is mildly increased left ventricular wall thickness. The visually estimated ejection fraction is between 60-65%. There is no evidence of regional wall motion abnormalities. Diastolic function is indeterminate on the basis of available data.cardiology -possible syncope ,nstemi sec to pulmonary embolism. In addition subsequently patient got left hip hemiarthroplasty also done. Patient seen by vascular and hematology-started on Eliquis 10 mg po bid ( until 12/14/23 ) , then switch to eliquis 5 mg po bid ( 12/15/23). hematology- Eliquis/anticoagulation long-term. IVC filter will have to be removed in the next 3-6 months. postop anemia : received 1 prbc : h/h : 06/23.2 , moniter cbc outpatient. Health Concerns: as above. Plan of Treatment: as above. Assessment: as above.
[2023-12-09] MEDS: Acetaminophen 325 MG TABLET 650 MG PO (14:21)
[2023-12-09] MEDS: Milk of Magnesia 30 ML ORAL.SUSP PO (14:21)
== END 2023-12-09 15:50 | disposition skilled nursing facility (03) | DRG 521 ==
LOC: HO.ED 13:46 → HO.EDOVER 15:36 → HO.IMC 19:31
PROVIDERS: Family Medicine; Hospitalist; Internal Medicine; Orthopaedic Surgery; Registered Nurse Emergency; Student in an Organized Health Care Education/Training Program; Surgery Vascular Surgery; Admitting Provider Student in an Organized Health Care Education/Training Program; Emergency Provider Student in an Organized Health Care Education/Training Program; PCP Internal Medicine; Visit Provider Internal Medicine
PROC: 0SRS0JA Replacement of Left Hip Joint, Femoral Surface with Synthetic Substitute, Uncemented, Open Approach (ICD-10-PCS; CPT 27125; principal; 2023-12-04 07:30)
DX: S72.012A Unspecified intracapsular fracture of left femur, initial encounter for closed fracture (principal); I21.A1 Myocardial infarction type 2; I26.09 Other pulmonary embolism with acute cor pulmonale; J96.01 Acute respiratory failure with hypoxia; I82.413 Acute embolism and thrombosis of femoral vein, bilateral; I82.432 Acute embolism and thrombosis of left popliteal vein; N17.9 Acute kidney failure, unspecified; D64.89 Other specified anemias; W19.XXXA Unspecified fall, initial encounter; F31.9 Bipolar disorder, unspecified; R04.0 Epistaxis; Z66 Do not resuscitate; I12.9 Hypertensive chronic kidney disease with stage 1 through stage 4 chronic kidney disease, or unspecified chronic kidney disease; K21.9 Gastro-esophageal reflux disease without esophagitis; E78.5 Hyperlipidemia, unspecified; N18.30 Chronic kidney disease, stage 3 unspecified; Z20.822 Contact with and (suspected) exposure to COVID-19; Z86.73 Personal history of transient ischemic attack (TIA), and cerebral infarction without residual deficits; Z86.711 Personal history of pulmonary embolism; Z87.891 Personal history of nicotine dependence; Z79.899 Other long term (current) drug therapy
CPT/HCPCS: 0241U; 36415; 37184; 37191; 70450; 71045; 71275; 72125; 73502; 80048; 80053; 81001; 83880; 84484; 85014; 85018; 85025; 85027; 85610; 85730; 86850; 86900; 86901; 86923; 88305; 88311; 88342; 93005; 93306; 93970; 97110; 97163; 97167; 97530; 97535; 99152; 99153; 99285; A4364; C1725; C1758; C1769; C1776; C1880; C1887; C1894; J0131; J0690; J1644; J2270; J2371; J2405; J2704; J2795; J3010; J7120; P9016; Q9957; Q9967

== ENCOUNTER 2023-11-29 15:23 | Outpatient (BNV) | payer MEDICARE, SELFPAY | END 2023-12-04 15:59 | PROVIDERS: Admitting Provider Student in an Organized Health Care Education/Training Program; Emergency Provider Student in an Organized Health Care Education/Training Program; PCP Internal Medicine; Visit Provider Internal Medicine Cardiovascular Disease | DX: R00.0 Tachycardia, unspecified (principal) | CPT/HCPCS: 93010 ==

== ENCOUNTER 2023-11-29 15:23 | Outpatient (BNV) | payer MEDICARE, SELFPAY | END 2023-12-01 07:00 | PROVIDERS: Admitting Provider Student in an Organized Health Care Education/Training Program; Emergency Provider Student in an Organized Health Care Education/Training Program; PCP Internal Medicine; Visit Provider Internal Medicine Cardiovascular Disease | DX: I21.4 Non-ST elevation (NSTEMI) myocardial infarction (principal) | CPT/HCPCS: 93306 ==

== ENCOUNTER → 2023-11-29 15:23 | Outpatient (BNV) | payer MEDICARE, SELFPAY | PROVIDERS: Admitting Provider Student in an Organized Health Care Education/Training Program; Emergency Provider Student in an Organized Health Care Education/Training Program; PCP Internal Medicine; Visit Provider Surgery Vascular Surgery | DX: I26.09 Other pulmonary embolism with acute cor pulmonale (principal) | CPT/HCPCS: 37184; 37191; 99152; 99223; 99232; 99499 ==

== ENCOUNTER → 2023-11-29 15:23 | Outpatient (BNV) | payer MEDICARE, SELFPAY | PROVIDERS: Admitting Provider Student in an Organized Health Care Education/Training Program; Emergency Provider Student in an Organized Health Care Education/Training Program; PCP Internal Medicine; Visit Provider Internal Medicine | DX: I26.99 Other pulmonary embolism without acute cor pulmonale (principal) | CPT/HCPCS: 99222; 99232 ==

== ENCOUNTER → 2023-11-29 15:23 | Outpatient (BNV) | payer MEDICARE, SELFPAY | PROVIDERS: Admitting Provider Student in an Organized Health Care Education/Training Program; Emergency Provider Student in an Organized Health Care Education/Training Program; PCP Internal Medicine; Visit Provider Physician Assistant | DX: Z96.642 Presence of left artificial hip joint (principal) | CPT/HCPCS: 27236; 99024; 99222; 99499 ==

== ENCOUNTER → 2023-11-29 15:23 | Outpatient (BNV) | payer MEDICARE, SELFPAY | PROVIDERS: Admitting Provider Student in an Organized Health Care Education/Training Program; Emergency Provider Student in an Organized Health Care Education/Training Program; PCP Internal Medicine; Visit Provider Internal Medicine Cardiovascular Disease | DX: I21.4 Non-ST elevation (NSTEMI) myocardial infarction (principal); I26.09 Other pulmonary embolism with acute cor pulmonale | CPT/HCPCS: 93010; 99222; 99232; 99233 ==

== ENCOUNTER → 2023-11-29 15:23 | Outpatient (BNV) | payer MEDICARE, SELFPAY | PROVIDERS: Admitting Provider Student in an Organized Health Care Education/Training Program; Emergency Provider Student in an Organized Health Care Education/Training Program; PCP Internal Medicine; Visit Provider Student in an Organized Health Care Education/Training Program | DX: I26.09 Other pulmonary embolism with acute cor pulmonale (principal) | CPT/HCPCS: 99223; 99232; 99233; 99239; 99499 ==

== ENCOUNTER → 2023-11-29 15:23 | Outpatient (BNV) | payer MEDICARE, SELFPAY | PROVIDERS: Admitting Provider Student in an Organized Health Care Education/Training Program; Emergency Provider Student in an Organized Health Care Education/Training Program; PCP Internal Medicine; Visit Provider Hospitalist | DX: I26.09 Other pulmonary embolism with acute cor pulmonale (principal); I21.4 Non-ST elevation (NSTEMI) myocardial infarction; S72.92XA Unspecified fracture of left femur, initial encounter for closed fracture; Z01.811 Encounter for preprocedural respiratory examination | CPT/HCPCS: 99231 ==

== ENCOUNTER 2023-12-29 12:19 | Inpatient (IN) | payer MEDICARE, SELFPAY ==
[2023-12-29] VITALS (12 sets, daily range): BP systolic 75–141; BP diastolic 37–56; PULSE 89–120; RESP 15–24; TEMP 36.1–36.6; O2SAT 93–100; BMI 27.5
--- NOTE | ~2023-12-29 | XR_ITS ---
EXAMINATION: XR CHEST CLINICAL INFORMATION: Shortness of breath COMPARISON: Chest radiograph 12/04/2023 TECHNIQUE: Frontal view of the chest was obtained. FINDINGS: The heart and mediastinal borders are normal. No focal consolidation. Unchanged blunting of the left costophrenic angle. No pneumothorax. No acute osseous abnormality. XR/XR chest 1V IMPRESSION: Unremarkable examination.
--- NOTE | ~2023-12-29 | CT_ITS ---
EXAMINATION: CT ABDOMEN AND PELVIS WITH AND WITHOUT CONTRAST: CT GI BLEEDING STUDY CLINICAL INFORMATION: Lower GI bleed, anemia. COMPARISON: No pertinent prior studies are available for comparison. TECHNIQUE: Multidetector volumetric imaging was performed from the lung bases to the pubic symphysis before and after the administration of: Intravenous contrast: 85 mL Omnipaque 350 No contrast reaction reported MIP coronal, sagittal and coronal reformatted images were obtained on the technologist workstation. This CT examination was performed using dose optimization techniques as appropriate, variously including the following: *Automated exposure control *Adjustment of mA and/or kV according to patient size (this includes techniques or standardized protocols for targeted exams where dose is matched to indication/reason for exam; i.e. extremities or head) *Use of iterative reconstruction technique Total exam dose-length product 520 and 513 mGy-cm FINDINGS: STOMACH: No intraluminal contrast accumulation to suggest hemorrhage. SMALL BOWEL: No intraluminal contrast accumulation to suggest hemorrhage. COLON: Increased attenuation along the posterior wall of the cecum on postcontrast images compared to precontrast images (15:50) with adjacent circumferential wall thickening (13:37). Large amount of stool content in the colon and rectum with perirectal stranding and free fluid. Normal appendix. LUNG BASES: No focal consolidation or pleural effusion. Partially seen bilaterally breast prosthesis. LIVER, GALLBLADDER, AND BILIARY TREE: The liver is normal in size, shape, and attenuation. No focal hepatic lesion or biliary ductal dilatation is present. The gallbladder is unremarkable with no evidence of radiopaque gallstones, gallbladder wall thickening, or obvious pericholecystic inflammatory changes. PANCREAS: Mild asymmetric stranding posterior to the tail of the pancreas and adjacent to the left adrenal gland, indeterminate. No main ductal dilatation. SPLEEN: Normal size. No focal lesion. ADRENAL GLANDS: Normal; no mass. KIDNEYS AND URETERS: Symmetric nephrograms. No hydronephrosis or nephrolithiasis. Multiple too small to characterize cortical hypodensities bilaterally, statistically favoring to represent simple cysts for which no imaging follow-up is recommended. Mild symmetric perinephric stranding. ABDOMINAL WALL: Small fat-containing bilateral inguinal hernias. LYMPHOVASCULAR STRUCTURES: Normal caliber of the abdominal aorta. Severe atherosclerotic disease. IVC filter. No lymphadenopathy. BLADDER: No focal mass or wall thickening seen. No bladder calculi. PELVIC VISCERA: Heterogeneous anterior fundal myometrium with a possible 2.8 cm intramural mass (15:64) suggestive of a fibroid. OSSEOUS STRUCTURES: No acute or suspicious osseous abnormality. Degenerative changes of the spine. Partially seen left hip arthroplasty with adjacent stranding of the soft tissues. CT/CT gi bleed abd pel wo/w IVcon IMPRESSION: 1. Increased attenuation along the posterior wall of the cecum on postcontrast images compared to precontrast images with adjacent circumferential wall thickening. These findings could be associated with a cecal mass and possible acute GI bleed. Recommend GI/colorectal consultation and further evaluation with colonoscopy. 2. Large amount of stool content in the colon and rectum with perirectal stranding and free fluid, concerning for stercoral colitis. 3. Mild asymmetric stranding posterior to the tail of the pancreas and adjacent to the left adrenal gland, indeterminate. Correlate with lipase and amylase for acute pancreatitis. This critical result was discussed with Dr. Gibson at 12/29/2023 8:41 PM and it was ascertained that the content and urgency of the report was understood at the time of direct communication.
[2023-12-29 13:08] LABS: Glucose, Whole Blood 199 mg/dL (60-115)
--- NOTE | 2023-12-29 13:20 | ED_ITS ---
HPI - General Adult General Chief complaint: Recheck/Abnormal Lab/Rx Stated complaint: ABNORMAL LABS,?UTI,SEPSIS ALERT PER EMS Time Seen by Provider: 12/29/23 13:20 Source: patient Mode of arrival: ambulatory Limitations: other (Poor historian) History of Present Illness HPI narrative: 78-year-old female history of pulmonary embolism on Eliquis, cognitive disorder, bipolar disorder, obesity, hypertension, hyperlipidemia, GERD, breast cancer, bipolar 1, brought in by ambulance from [facility] with complaints of low hemoglobin and hematocrit from labs this morning, dizziness, low blood pressure, generalized feeling unwell. Patient reports she has not been feeling well for the past few days. It has been progressively worsening. She is anticoagulated on Eliquis. Denies CP, SOB, nausea, vomiting, abd pain, headache, vision changes, Related Data Home Medications ?Medication ?Instructions ?Recorded ?Confirmed folic acid 1 mg tablet 1 mg PO DAILY 09/30/22 12/29/23 risperidone microspheres 25 mg/2 25 mg IM Q14D 09/30/22 12/29/23 mL intramuscular susp,ext release (Risperdal Consta) nortriptyline 10 mg capsule 10 mg PO BEDTIME 08/15/23 12/29/23 docusate sodium 100 mg capsule 100 mg PO BID 11/29/23 12/29/23 furosemide 20 mg tablet 20 mg PO DAILY 11/29/23 12/29/23 lisinopril 5 mg tablet 5 mg PO DAILY 11/29/23 12/29/23 Lactobacillus acidophilus 1 cap PO BID 12/29/23 12/29/23 (Acidophilus capsule) apixaban 5 mg tablet (Eliquis) 5 mg PO BID 12/29/23 12/29/23 divalproex 500 mg tablet,extended 500 mg PO BEDTIME 12/29/23 12/29/23 release 24 hr midodrine 5 mg tablet 5 mg PO TID PRN SBP < 90 12/29/23 12/29/23 nitrofurantoin 100 mg PO BID 12/29/23 12/29/23 monohydrate/macrocrystals 100 mg capsule ondansetron 4 mg disintegrating 4 mg PO Q6H PRN Nausea And Vomiting 12/29/23 12/29/23 tablet tramadol 25 mg tablet 25 mg PO Q6H PRN Pain 12/29/23 12/29/23 Previous Rx's ?Medication ?Instructions ?Recorded acetaminophen 650 mg 650 mg PO Q6H PRN pain #60 tabs 06/12/23 tablet,extended release pantoprazole 20 mg tablet,delayed 20 mg PO BEDTIME #90 tabs 06/27/23 release simvastatin 20 mg tablet 20 mg PO BEDTIME #90 tabs 08/26/23 polyethylene glycol 3350 17 17 g PO DAILY PRN constipation 12/09/23 gram/dose oral powder (Miralax) #119 grams Allergies Allergy/AdvReac Type Severity Reaction Status Date / Time No Known Allergies Allergy Verified 12/29/23 12:41 [No Known Allergies*] Review of Systems 2 Review of Systems: Yes all other systems are reviewed and are negative PMFSH Past Medical History Attestation statement: The following information was validated with the patient. Source: old records reviewed and nursing notes reviewed Medical History Pre-op chest exam Preop cardiovascular exam NSTEMI (non-ST elevated myocardial infarction) Chronic low back pain Rash of neck Hearing impairment Generalized muscle weakness Cognitive disorder TIA (transient ischemic attack) Tremors of nervous system Gait disorder DVT (deep venous thrombosis) Obesity Hyperlipidemia HTN (hypertension) GERD (gastroesophageal reflux disease) Breast cancer Bipolar 1 disorder Surgical History H/O mastectomy Family History Family History Brother Alcohol abuse Polio Substance use disorder Brother Cancer Sister Stroke Mental health disorder Mother HTN (hypertension) Sister Cancer Social History Social History Household Members: None Housing: Condominium Do you presently have visiting nurse or other home services: Yes Unable to assess alcohol history related to: Refusing to respond Alcohol intake: current Alcohol type: wine Patient Tobacco Use Status: Former Tobacco user Quit Date: 11 years ago Tobacco use type: Smokeless Tobacco Years Smoked: 30 e-Cigarette/Vaping Use: Never Used Second Hand Smoke Exposure: No Advance Directives: Yes Advance Directives on File: Yes Advance Directives Date on File: 05/01/22 Do you have a plan to hurt others: No Plan service: No Sexual orientation: Straight/Heterosexual Cognitive needs: No Hearing needs: No Vision needs: Yes Physical Exam ED Vital Signs: Vital Signs - 24 hr 12/29/23 12:39 12/29/23 13:09 12/29/23 14:25 Temperature 97.7 F 97.9 F Pulse Rate 119 H 115 H 110 H Respiratory Rate 24 H 24 H 22 H Blood Pressure 75/39 L 95/49 L Pulse Oximetry 93 100 Oxygen Delivery Method Room Air Room Air 12/29/23 14:32 12/29/23 14:41 12/29/23 14:47 Temperature 96.9 F 97.7 F 97.7 F Pulse Rate 107 H 96 97 Respiratory Rate 19 18 16 Blood Pressure 94/38 L 84/37 L 95/43 L Pulse Oximetry Oxygen Delivery Method 12/29/23 15:32 Temperature 97.6 F Pulse Rate 89 Respiratory Rate 16 Blood Pressure 115/52 L Pulse Oximetry 94 Oxygen Delivery Method Room Air BMI result Body Mass Index 27.5 vss Appearance: Alert.? Oriented X3.? No acute distress.?Sick looking Head: Normocephalic, atraumatic, no step-offs or deformities Eyes: Pupils equal, round and reactive to light.? Neck: Normal inspection.? Neck supple.? CVS: Normal heart rate and rhythm.? Pulses normal.? Respiratory: No respiratory distress.? Breath sounds normal.? Abdomen: Soft and nontender.? Skin: Skin warm and dry.? pale skin color.? Normal skin turgor.? Rectal: stool w/ ? microscopic blood ( sent for analysis) Extremities: No lower extremity edema.? No calf ttp. Global weakness Neuro: Oriented X 3.? No motor deficit.? No sensory deficit. CN 2-12 intact Course Reevaluation(s) Reevaluation #1: CBC with slight leukocytosis and a normocytic anemia hemoglobin 5.8, hematocrit 18.1, I am concerned for lower GI bleed potentially as a source of bleeding. Verbal and written consent obtained for blood. Chemistry pending. Lactic acid 3.6, I am concerned for type a injury secondary to acute blood loss anemia. Coags unremarkable. OBS positive. Time: 14:28 Reevaluation #2: Patient case discussed with GI who agrees with plan of giving Kcentra. They will follow once in the hospital. CT gi bleeding study also requested and pending. Patient receiving 2 units of PRBC's. Time: 14:57 Reevaluation #3: Plan admission GI bleeding study pending Time: 15:22 Medications Administered Discontinued Medications Generic Name Dose Route Start Last Admin Trade Name Cassidy PRN Reason Stop Dose Admin Sodium Chloride 100 mls @ 100 mls/hr 12/29/23 13:20 12/29/23 14:26 Ns IV 12/29/23 14:19 100 mls/hr ONCE ONE Administration Sodium Chloride 100 mls @ 100 mls/hr 12/29/23 13:20 12/29/23 14:33 Ns IV 12/29/23 14:19 100 mls/hr ONCE ONE Administration Sodium Chloride 1,000 mls @ 999 mls/hr 12/29/23 14:15 12/29/23 14:16 Ns IV 12/29/23 15:15 999 mls/hr .Q1H1M LINDA Administration Prothrombin Complex Concent ( 80 mls @ 480 mls/hr 12/29/23 14:43 12/29/23 15:02 Human) 2,000 unit/ IV IV 12/29/23 14:52 480 mls/hr Miscellaneous Supplies .Q10M ONE Administration Medical Decision Making Medical Decision Making MDM Narrative: 1415 78 yo f presents w/ abnormal hgb and hct from [facility] here now with weakness, fatigue, malaise PE- global weakness. Hx and pe concerning for lower GI bleed, acute blood loss anemia, electrolye abnormalities. Unlikley upper gi bleed, acs, pe, infeciton Plan- labs, imaging Differential Diagnosis Differential Diagnoses: The differential diagnosis associated with the presentation includes Hx and pe concerning for lower GI bleed, acute blood loss anemia, electrolye abnormalities. Unlikley upper gi bleed, acs, pe, infeciton Admission/Observation Consideration of admission/observation: Escalation of care including admission/observation considered Likely Lab Data [facility] Lab Attestation statement: I reviewed the patient's lab results. 12/29/23 13:50 12/29/23 13:50 Labs: Lab Results 12/29/23 12/29/23 12/29/23 Range/Units 12:47 13:50 13:53 WBC 12.0 H (4.8-10.8) X10*3/uL RBC 1.83 L (4.20-5.50) X10*6/uL Hgb 5.8 L* (12.0-16.0) g/dl Hct 18.1 L* (37.0-47.0) % MCV 98.9 H (80.0-98.0) fL MCH 31.7 (27.0-33.0) pg MCHC 32.0 (31.0-35.0) g/dl RDW 17.2 H (11.0-16.0) % Plt Count 272 (160-400) X10*3/uL MPV 10.0 (9.4-12.3) fL Immature Gran % (Auto) 0.6 H (0.0-0.4) % Neut % (Auto) 84.7 H (45-73) % Lymph % (Auto) 10.4 L (20-40) % Ness % (Auto) 4.1 (2-11) % Eos % (Auto) 0.1 (0-4) % Baso % (Auto) 0.1 (0-2) % Lymph # (Auto) 1.3 (1.2-4.9) X10*3/uL Ness # (Auto) 0.5 (0.1-1.2) X10*3/uL Eos # (Auto) 0.0 (0.0-0.4) X10*3/uL Baso # (Auto) 0.0 (0.0-0.2) X10*3/uL Abs Immat Gran (auto) 0.07 H (0.00-0.03) X10*3/uL Absolute Neuts (auto) 10.2 H (2.0-8.3) x10*3/uL Absolute Nucleated RBC 0.000 (0.0-0.012) X10*3/uL Nucleated RBC % (auto) 0.0 (0.0-0.2) /100WBC PT 13.8 H (11.1-13.3) SEC INR 1.1 (0.9-1.1) APTT 29.9 (26.0-36.8) SEC Sodium 137 (135-145) mmol/L Potassium 5.1 D (3.3-5.1) mmol/L Chloride 106 (96-108) mmol/L Carbon Dioxide 17 L (22-29) mmol/L Anion Gap 19 (12-20) BUN 65 H (9-16) mg/dL Creatinine 1.46 H (0.5-1.4) mg/dL Estim Creat Clear Calc 32.0 Estimated GFR 35 POC Glucose 199 H (60-115) mg/dL Random Glucose 184 H (60-115) mg/dL Lactic Acid 3.6 H* (0.5-2.0) mmol/L Calcium 9.1 (8.4-10.2) mg/dL Magnesium 2.4 (1.6-2.6) mg/dL Total Bilirubin 0.3 (0.0-1.0) mg/dL AST 21 (5-31) U/L ALT 9 (0-31) U/L Alkaline Phosphatase 75 (39-117) U/L Total Protein 6.4 L (6.5-8.0) g/dL Albumin 3.2 L (3.5-5.0) g/dL Stool Occult Blood POSITIVE (NEGATIVE) Influenza Type A (PCR) NEGATIVE (Negative) Influenza Type B (PCR) NEGATIVE (Negative) RSV RNA Qual (PCR) NEGATIVE (Negative) SARS-CoV-2 RNA (RT-PCR) NEGATIVE (Negative) Independent Interpretation I performed an independent interpretation of an: Plain X-Ray ( XR/XR chest 1V IMPRESSION: Unremarkable examination. ) and CT Scan Radiology Impression Discussion of test interpretation with radiology: I have reviewed the radiologist's reading. Chronic Conditions Patient?s care impacted by: Other (PE, HTN, HLD, cognitive do ) Critical Care Time Critical Care Time Critical Care Time: Yes Total Critical Care Time: 45 Attestation: I attest to this time spent taking care of the patient, obtaining history, physical, reviewing labs, imaging, speaking to my attending, specialist or hospitalist. Discharge Plan Discharge Clinical Impression: Acute lower GI bleeding, ABLA (acute blood loss anemia) Prescriptions: No Action acetaminophen 650 mg tablet extended release 650 mg PO Q6H PRN (Reason: pain) Qty: 60 0RF pantoprazole 20 mg tablet,delayed release (DR/EC) 20 mg PO BEDTIME Qty: 90 1RF simvastatin 20 mg tablet 20 mg PO BEDTIME Qty: 90 1RF lisinopril 5 mg tablet 5 mg PO DAILY furosemide 20 mg tablet 20 mg PO DAILY docusate sodium 100 mg Capsule 100 mg PO BID polyethylene glycol 3350 [Miralax] 17 gram/dose powder 17 g PO DAILY PRN (Reason: constipation) Qty: 119 0RF midodrine 5 mg Tablet 5 mg PO TID PRN (Reason: SBP < 90) Rx Instructions: do not give last dose of day after 6PM or within 4 hrs of bedtime Acidophilus Capsule 1 cap PO BID ondansetron 4 mg Tablet,Disintegrating 4 mg PO Q6H PRN (Reason: Nausea And Vomiting) nitrofurantoin monohyd/m-cryst 100 mg Capsule 100 mg PO BID Rx Instructions: must administer with a meal/food finish 01/04/24 tramadol 25 mg Tablet 25 mg PO Q6H PRN (Reason: Pain) divalproex 500 mg Tablet Extended Release 24 Hr 500 mg PO BEDTIME Eliquis 5 mg tablet 5 mg PO BID folic acid 1 mg tablet 1 mg PO DAILY Risperdal Consta 25 mg/2 mL suspension,extended rel recon 25 mg IM Q14D nortriptyline 10 mg capsule 10 mg PO BEDTIME Print Language: Anguillan
--- NOTE | 2023-12-29 13:55 | PC.NURSE ---
pt krystala from [facility] d/t not feeling well past few days, dizziness, hypotensive and after receiving critical lab values of a low H&H. upon ED arrival - pt a&o4 but seemingly lethargic/diaphoretic. sinus tachy on the cardiac cath technician - HR between 110-115bpm. occasional PVCs noted in rhythm. hypotensive. tachypneic. rectal temp obtained - afebrile. delay in obtaining labs as pt is an extremely difficult stick. multiple attempts made by RNs and eventually obtained a 20g in the left wrist, an 18g in the right wrist, and a 22g in the right wrist. all access' patent/intact. slight wob noted. respirations even and labored. pt aware of plan of care moving forward as pt has been seen by ED provider. plan of care ongoing.
[2023-12-29 13:59] LABS: MANUAL DIFF FLAG NO
[2023-12-29 14:01] LABS: OBS Int Ctl Valid YES; OBS1 POSITIVE (NEGATIVE)
[2023-12-29 14:02] LABS: Basophils Percent Auto 0.1 % (0-2); Eosinophils Percent Auto 0.1 % (0-4); Imm Gran Abs Auto 0.07 X10*3/uL (0.00-0.03); Imm Gran Pct Auto 0.6 % (0.0-0.4); Lymphocytes Absolute Auto 1.3 X10*3/uL (1.2-4.9); Lymphocytes Percent Auto 10.4 % (20-40); Mean Corpuscular Hemoglobin 31.7 pg (27.0-33.0); Mean Corpuscular Volume 98.9 fL (80.0-98.0); Monocytes Absolute Auto 0.5 X10*3/uL (0.1-1.2); Monocytes Percent Auto 4.1 % (2-11); Neutrophils Absolute Auto 10.2 x10*3/uL (2.0-8.3); Neutrophils Percent Auto 84.7 % (45-73); Platelet Count 272 X10*3/uL (160-400); Red Blood Count 1.83 X10*6/uL (4.20-5.50); Red Cell Distribution Width 17.2 % (11.0-16.0)
[2023-12-29 14:07] LABS: Hemoglobin 5.8 g/dl (12.0-16.0)
[2023-12-29 14:08] LABS: Hematocrit 18.1 % (37.0-47.0); INTERNATIONAL NORM RATIO 1.1 (0.9-1.1); Prothrombin Time 13.8 SEC (11.1-13.3)
[2023-12-29 14:11] LABS: Partial Thromboplastin Time 29.9 SEC (26.0-36.8)
[2023-12-29 14:15] LABS: Lactic Acid 3.6 mmol/L (0.5-2.0)
[2023-12-29] MEDS: 0.9 % Sodium Chloride 1,000 ML 999 ML IV (14:16)
[2023-12-29 14:23] LABS: Alanine Aminotransferase 9 U/L (0-31); Albumin Level 3.2 g/dL (3.5-5.0); Alkaline Phosphatase 75 U/L (39-117); Anion Gap 19 (12-20); Aspartate Amino Transferase 21 U/L (5-31); Bilirubin Total 0.3 mg/dL (0.0-1.0); Blood Urea Nitrogen 65 mg/dL (9-16); Calcium 9.1 mg/dL (8.4-10.2); Carbon Dioxide 17 mmol/L (22-29); Chloride 106 mmol/L (96-108); Estimated Glomerular Filt Rate 35; Glucose Random 184 mg/dL (60-115); Magnesium 2.4 mg/dL (1.6-2.6); Potassium 5.1 mmol/L (3.3-5.1); Sodium 137 mmol/L (135-145); Total Protein 6.4 g/dL (6.5-8.0)
--- NOTE | 2023-12-29 14:33 | PC.NURSE ---
phlebotomy called in attempts to obtain lab work as pt continues to be extremely difficult stick. multiple attempts made by multiple techs and RNs. unable to obtain type & screen - emergent PRBC transfusion started per provider order. pt tolerating well. pt remains a&ox4 but remains lethargic at this time. responds appropriately but has a slur in words. BP seems to be improving at this time. cycling q5min. otherwise vss. nsr on the mail handler. no sob/wob noted. respirations even and unlabored. plan of care ongoing.
--- NOTE | 2023-12-29 14:36 | PHA.MEDREC ---
Pharmacy Consult ? Medication Reconciliation Pharmacy has completed the medication reconciliation. Patient from [facility] with med list. Coni Sloan, PascualD
[2023-12-29 14:39] LABS: Influenza A PCR NEGATIVE (Negative); Influenza B PCR NEGATIVE (Negative); Resp Syncy Virus RNA Qual PCR NEGATIVE (Negative); SARS COV2 PCR INHOUSE NEGATIVE (Negative)
--- NOTE | 2023-12-29 14:48 | PC.NURSE ---
pt remains hypotensive at this time. ED provider notified/aware. nsr on the monitoring coordinator. pt no longer tachypneic. no wob noted. remains afebrile. pt tolerated first 15 min of PRBC infusion w/o any complications. continues to infuse at this time. plan of care ongoing.
[2023-12-29] MEDS: Hum Prothrombin Cplx(PCC)4Fact 2,000 UNIT in Container,Empty 0 ML 480 UNIT IV (15:02)
--- NOTE | 2023-12-29 15:04 | PC.NURSE ---
jennifer prepared/administered per provider order.
--- NOTE | 2023-12-29 15:21 | PC.NURSE ---
xray bedside at this time.
--- NOTE | 2023-12-29 15:33 | PC.NURSE ---
BP remains hypotensive but trending upward. IVF placed on pressure bag. PRBCs continue to infuse. plan of care ongoing.
--- NOTE | 2023-12-29 15:34 | ECG_ITS ---
Test Reason : SEPSIS ALERT Blood Pressure : / mmHG Vent. Rate : 114 BPM Atrial Rate : 114 BPM P-R Int : 134 ms QRS Dur : 084 ms QT Int : 334 ms P-R-T Axes : 040 038 031 degrees QTc Int : 460 ms Sinus tachycardia Otherwise normal ECG When compared with ECG of 04-DEC-2023 15:59, Nonspecific T wave abnormality now evident in Lateral leads Referred By: Henrry Estrada Electronically Signed By:Leif Jimenez
[2023-12-29 15:57] LABS: Reflex Lactate? Lactic Acid Added
[2023-12-29 17:09] LABS: ~Lactic Acid-LAB USE ONLY 2.3 mmol/L (0.5-2.0)
--- NOTE | 2023-12-29 17:33 | PC.NURSE ---
vss and up to date. nsr on the clinical research monitor. UA obtained/sent to lab. pt to CT at this time. plan of care ongoing.
[2023-12-29 17:42] LABS: Appearance Urine Clear; Color Urine Yellow; Glucose Urine UA Negative (Negative); Leukocyte Esterase Urine Large (3+) (Negative); Nitrite Urine Positive (Negative); PH 5.5 (5.0-9.0); UMIC TRIGGER UACC YES; Urine Blood Negative (Negative); Urine Ketones Negative (Negative); Urine Protein Negative (Neg-Trace)
[2023-12-29] MEDS: iohexoL 350 MG/ML 100 ML INFUS..BTL 85 ML IV (17:43)
[2023-12-29 17:47] LABS: Bacteria Urine 2+ (None Seen); Hyaline Casts Urine 0-2 /LPF (0-2); RBC Urine 0-2 /HPF (0-2); Squamous Epithelial Cell Urine 0-2 /HPF (0-2); UACC Culture Trigger YES; WBC Urine >50 /HPF (0-5)
--- NOTE | 2023-12-29 18:23 | PM.EVENT ---
Event Note Date of Service: 12/29/23 Event Note: GI Consult-Full note dictated-History from patient, RN, and EMR Imp: 78 yo female on Eliquis in relation to recent DVT and PE during hospitalization for a recent hip fracture. She underwent placement of an IVC filter and pulmonary artery thrombectomy with Dr. Medellin on 12/02/23. She is now admitted with Heme + stool and apparent GI bleeding with an associated drop in her Hgb. She describes recent constipation. She has been stable since arrival in the ER and without any active bleeding. She denies abdominal pain nor vomiting. She describes previous colonoscopies. Diff dx: Ischemic colitis vs. diverticular bleed; possible peptic ulcer disease/esophagitis/gastritis; doubt neoplasm. Rec: Agree with reversal of Eliquis, transfuse to Hgb > 8, PPI therapy, clear liquids for now, check CT bleeding scan. Depending on her clinical course she may need further evaluation with an EGD and/or colonoscopy. D/W patient. Thanks Time Spent With Patient Time: Total time managing care of this patient today ____ minutes.
--- NOTE | 2023-12-29 18:35 | ECG_ITS ---
Test Reason : REPEAT Blood Pressure : / mmHG Vent. Rate : 090 BPM Atrial Rate : 090 BPM P-R Int : 142 ms QRS Dur : 082 ms QT Int : 346 ms P-R-T Axes : 083 044 029 degrees QTc Int : 423 ms Normal sinus rhythm with sinus arrhythmia Normal ECG When compared with ECG of 29-DEC-2023 13:23, No significant change was found Referred By: Henrry Estrada Electronically Signed By:Leif Jimenez
--- NOTE | 2023-12-29 18:43 | PC.NURSE ---
pt continues to be drawn for labs but labs continue to hemolyze. pt remains an extremely difficult stick. phlebotomy called for assistance. admitting provider dr. abdi notified/aware. repeat ekg performed/sent via [employer]. plan of care ongoing.
[2023-12-29 18:46] LABS: Reflex Lactate? 2 Y
[2023-12-29] MEDS: Pantoprazole Sodium 40 MG/10 ML VIAL IVPUSH (18:51)
[2023-12-29 19:32] LABS: Basophils Percent Auto 0.2 % (0-2); Eosinophils Percent Auto 0.3 % (0-4); Hematocrit 27.8 % (37.0-47.0); Hemoglobin 9.6 g/dl (12.0-16.0); Imm Gran Abs Auto 0.06 X10*3/uL (0.00-0.03); Imm Gran Pct Auto 0.6 % (0.0-0.4); Lymphocytes Absolute Auto 1.5 X10*3/uL (1.2-4.9); Lymphocytes Percent Auto 15.2 % (20-40); Mean Corpuscular HGB Conc 34.5 g/dl (31.0-35.0); Mean Corpuscular Hemoglobin 31.4 pg (27.0-33.0); Mean Corpuscular Volume 90.8 fL (80.0-98.0); Mean Platelet Volume 9.7 fL (9.4-12.3); Monocytes Absolute Auto 0.5 X10*3/uL (0.1-1.2); Monocytes Percent Auto 4.8 % (2-11); Neutrophils Absolute Auto 7.9 x10*3/uL (2.0-8.3); Neutrophils Percent Auto 78.9 % (45-73); Platelet Count 202 X10*3/uL (160-400); Red Blood Count 3.06 X10*6/uL (4.20-5.50); Red Cell Distribution Width 16.9 % (11.0-16.0); ~Lactic Acid-LAB USE ONLY 1.4 mmol/L (0.5-2.0)
[2023-12-29 19:37] LABS: MANUAL DIFF FLAG NO
--- NOTE | 2023-12-29 20:21 | PM.IMHP ---
History of Present Illness Date of Service: 12/29/23 Attending physician on admission: Juan C Mckeon Chief Complaint: lightheadedness 78-year-old female with a PMH significant for?HTN, HLD, cognitive disorder, hx of TIA, hx of DVT/PE, hx of breast cancer, GERD, and bipolar I disorder with recent admission to hospitalist service from 11/28-12/08 due to left hip fracture s/p hemiarthroplasty on 12/03 also found to have pulmonary embolism with type 2 NSTEMI with IVC filter placed 12/01 and started on Eliquis. She was discharged to [facility] for short-term rehab. She reports this morning she felt lightheaded upon waking and labs at the facility showed H/H 5.5/17.4% with soft blood pressures so she was transferred to the emergency room for further evaluation. The patient states she has been feeling generally unwell over the last few days. She does report a single episode of melena on Friday but states she has been constipated. No fevers, chills, abdominal pain, nausea, vomiting, diarrhea, hematochezia, dyspnea, palpitations, syncope, chest pain. On arrival, patient hypotensive to 75/39, 127/45 on admission following IV fluid resuscitation and blood transfusion. She was also initially tachycardic to 107 and tachypneic, likely secondary to anemia, sepsis. She is afebrile. She did have a leukocytosis of 12.0, likely reactive. Initial H/H on arrival 5.5/17.4% 9.6/20 7.8% following 2 units packed red blood cells. PT 13.8, INR 1.1. Given GI bleed with Eliquis use, was given Kcentra. Her creatinine is 1.46, baseline around 0.9-1, BUN 65. Electrolyte levels normal except for CO2 17. Initial lactic acid 3.6, repeat 2.3, 4 hour repeat 1.4. Hepatic function within normal limits. Urinalysis with 3+ leukocytes, positive nitrites, positive urinary sediment, 2+ bacteria. Stool occult blood positive. Negative for influenza, RSV, COVID-19. CXR unremarkable. CT abdomen/pelvis pending. Patient will be admitted for further management of acute GI bleed. Review of Systems Review of Systems: General: No fevers, malaise, unintentional weight loss HEENT: No blurred vision, diplopia. No sore throat, nasal congestion, rhinorrhea, sinus pain, ear pain Cardiovascular: No chest pain, palpitations, or leg edema Respiratory: No shortness of breath, wheezing, cough GI: +melena. No abdominal pain, nausea, vomiting, diarrhea, constipation, hematochezia : No dysuria, hematuria, increased urinary frequency, decreased urinary output MSK: No myalgia, back pain Neuro: No headaches, weakness, paresthesias. +lightheadedness Skin: No rashes or lesions [facility] Medical History Pre-op chest exam Preop cardiovascular exam NSTEMI (non-ST elevated myocardial infarction) Chronic low back pain Rash of neck Hearing impairment Generalized muscle weakness Cognitive disorder TIA (transient ischemic attack) Tremors of nervous system Gait disorder DVT (deep venous thrombosis) Obesity Hyperlipidemia HTN (hypertension) GERD (gastroesophageal reflux disease) Breast cancer Bipolar 1 disorder Family History Brother Alcohol abuse Polio Substance use disorder Brother Cancer Sister Stroke Mental health disorder Mother HTN (hypertension) Sister Cancer Surgical History H/O mastectomy Social History Household Members: None Housing: Condominium Do you presently have visiting nurse or other home services: Yes Unable to assess alcohol history related to: Refusing to respond Alcohol intake: current Alcohol type: wine Patient Tobacco Use Status: Former Tobacco user Quit Date: 11 years ago Tobacco use type: Smokeless Tobacco Years Smoked: 30 Smoked in Last 30 Days: No e-Cigarette/Vaping Use: Never Used Second Hand Smoke Exposure: No Use of substances other than those prescribed or required for medical reasons: No Advance Directives: Yes Advance Directives on File: Yes Advance Directives Date on File: 05/01/22 Do you have a plan to hurt others: No Plan service: No Sexual orientation: Straight/Heterosexual Cognitive needs: No Hearing needs: No Vision needs: Yes Meds Allergies Allergy/AdvReac Type Severity Reaction Status Date / Time No Known Allergies Allergy Verified 12/29/23 12:41 [No Known Allergies*] Home Medications ?Medication ?Instructions ?Recorded ?Confirmed ?Last Taken ?Type folic acid 1 mg tablet 1 mg PO DAILY 09/30/22 12/29/23 11/28/23 History risperidone microspheres 25 mg/2 25 mg IM Q14D 09/30/22 12/29/23 11/27/23 History mL intramuscular susp,ext release (Risperdal Consta) nortriptyline 10 mg capsule 10 mg PO BEDTIME 08/15/23 12/29/23 11/28/23 History docusate sodium 100 mg capsule 100 mg PO BID 11/29/23 12/29/23 11/28/23 History furosemide 20 mg tablet 20 mg PO DAILY 11/29/23 12/29/23 11/28/23 History lisinopril 5 mg tablet 5 mg PO DAILY 11/29/23 12/29/23 11/28/23 History Lactobacillus acidophilus 1 cap PO BID 12/29/23 12/29/23 Unknown History (Acidophilus capsule) apixaban 5 mg tablet (Eliquis) 5 mg PO BID 12/29/23 12/29/23 Unknown History divalproex 500 mg tablet,extended 500 mg PO BEDTIME 12/29/23 12/29/23 Unknown History release 24 hr midodrine 5 mg tablet 5 mg PO TID PRN SBP < 90 12/29/23 12/29/23 Unknown History nitrofurantoin 100 mg PO BID 12/29/23 12/29/23 Unknown History monohydrate/macrocrystals 100 mg capsule ondansetron 4 mg disintegrating 4 mg PO Q6H PRN Nausea And Vomiting 12/29/23 12/29/23 Unknown History tablet tramadol 25 mg tablet 25 mg PO Q6H PRN Pain 12/29/23 12/29/23 Unknown History Physical Exam Vital Signs and Narrative: Vital Signs: Last Vital Signs Temp 97.2 F 12/29/23 19:50 Pulse 104 H 12/29/23 19:50 Resp 15 12/29/23 19:50 BP 127/45 L 12/29/23 19:50 Pulse Ox 95 12/29/23 19:50 O2 Del Method Room Air 12/29/23 19:50 BMI result Body Mass Index 27.5 Constitutional - Awake and Alert, No apparent distress Eyes - PERRLA, EOMI Cardiovascular - S1S2, RRR, No edema Respiratory - Normal lung expansion, Normal respiratory effort, No respiratory distress, CTA bilaterally Gastrointestinal - NT / ND; +BS; No rebound or guarding Extremities - no calf tenderness bilaterally, no swelling Skin - Warm/Dry Neurological - Alert & oriented x3, CN II-XII in tact, 5/5 strength BUE and BLE Psychological - Appropriate affect Results Labs 12/29/23 19:15 12/29/23 13:50 Labs: Laboratory Results - last 24 hr 12/29/23 12/29/23 12/29/23 12:47 13:50 13:53 MCV 98.9 H MCH 31.7 MCHC 32.0 RDW 17.2 H Plt Count 272 MPV 10.0 Immature Gran % (Auto) 0.6 H Neut % (Auto) 84.7 H Lymph % (Auto) 10.4 L [place] % (Auto) 4.1 Eos % (Auto) 0.1 Baso % (Auto) 0.1 Lymph # (Auto) 1.3 [place] # (Auto) 0.5 Eos # (Auto) 0.0 Baso # (Auto) 0.0 Abs Immat Gran (auto) 0.07 H Absolute Neuts (auto) 10.2 H Absolute Nucleated RBC 0.000 Nucleated RBC % (auto) 0.0 PT 13.8 H INR 1.1 APTT 29.9 Anion Gap 19 Estim Creat Clear Calc 32.0 Estimated GFR 35 POC Glucose 199 H Random Glucose 184 H Lactic Acid 3.6 H* Lactic Acid F/U @ 2Hr Lactic Acid F/U @ 4Hr Calcium 9.1 Magnesium 2.4 Total Bilirubin 0.3 AST 21 ALT 9 Alkaline Phosphatase 75 Total Protein 6.4 L Albumin 3.2 L Urine Color Urine Appearance Urine pH Ur Specific [place] Urine Protein Urine Glucose (UA) Urine Ketones Urine Blood Urine Nitrite Ur Leukocyte Esterase Urine RBC Urine WBC Ur Squamous Epith Cells Urine Bacteria Hyaline Casts Stool Occult Blood POSITIVE Influenza Type A (PCR) NEGATIVE Influenza Type B (PCR) NEGATIVE RSV RNA Qual (PCR) NEGATIVE SARS-CoV-2 RNA (RT-PCR) NEGATIVE Blood Type Antibody Screen Crossmatch 12/29/23 12/29/23 12/29/23 16:42 17:31 19:15 MCV 90.8 D MCH 31.4 MCHC 34.5 RDW 16.9 H Plt Count 202 D MPV 9.7 Immature Gran % (Auto) 0.6 H Neut % (Auto) 78.9 H Lymph % (Auto) 15.2 L [place] % (Auto) 4.8 Eos % (Auto) 0.3 Baso % (Auto) 0.2 Lymph # (Auto) 1.5 [place] # (Auto) 0.5 Eos # (Auto) 0.0 Baso # (Auto) 0.0 Abs Immat Gran (auto) 0.06 H Absolute Neuts (auto) 7.9 Absolute Nucleated RBC 0.000 Nucleated RBC % (auto) 0.0 PT INR APTT Anion Gap Estim Creat Clear Calc Estimated GFR POC Glucose Random Glucose Lactic Acid Lactic Acid F/U @ 2Hr 2.3 H* Lactic Acid F/U @ 4Hr 1.4 Calcium Magnesium Total Bilirubin AST ALT Alkaline Phosphatase Total Protein Albumin Urine Color Yellow Urine Appearance Clear Urine pH 5.5 Ur Specific [place] 1.010 Urine Protein Negative Urine Glucose (UA) Negative Urine Ketones Negative Urine Blood Negative Urine Nitrite Positive H Ur Leukocyte Esterase Large (3+) H Urine RBC 0-2 Urine WBC >50 H Ur Squamous Epith Cells 0-2 Urine Bacteria 2+ Hyaline Casts 0-2 Stool Occult Blood Influenza Type A (PCR) Influenza Type B (PCR) RSV RNA Qual (PCR) SARS-CoV-2 RNA (RT-PCR) Blood Type A Positive Antibody Screen NEGATIVE Crossmatch See Detail Imaging Radiologist's Impressions: Impressions Chest X-Ray 12/29/23 15:16 IMPRESSION: Unremarkable examination. Assessment and Plan (1) ABLA (acute blood loss anemia): Status: Acute (2) Acute lower GI bleeding: Status: Acute Plan 78-year-old female with a PMH significant for?HTN, HLD, cognitive disorder, hx of TIA, hx of DVT/PE, hx of breast cancer, GERD, and bipolar I disorder with recent admission to hospitalist service from 11/28-12/08 due to left hip fracture s/p hemiarthroplasty on 12/03 also found to have pulmonary embolism with type 2 NSTEMI with IVC filter placed 12/01 and started on Eliquis admitted for further management of GI bleed #Acute blood loss anemia due to GI bleed -H/H on arrival 5.5/17.4%. Transfuse 2 units packed red blood cells in the ED with improvement to 9.6/27.8% -CT abdomen/pelvis results negative for perforation but show a cecal mass with possible bleeding -stool occult blood positive -GI consult -clear liquid diet -IV PPI -hold Eliquis -follow CBC # acute hypotension-resolved on admission -due to hypoperfusion from severe anemia, not severe sepsis -continue IV fluids #Acute kidney injury -likely r/t hypoperfusion -continue ivf -avoid nephrotoxins -follow renal function/lytes # sirs criteria -tachycardia, tachypnea, hypotension all related to severe anemia -no sepsis/severe sepsis/shock -no hypotension on admission # acute UTI -3+ leukocytes, positive nitrites, positive urinary sediment, 2+ bacteria -IV ceftriaxone (initiated 12/28) -sirs criteria related to above, not sepsis -follow CBC, cultures # acute lactic acidosis -due to hypoperfusion related to above, not severe sepsis -resolved with IV fluids # hypertension -hold antihypertensives at this time given hypotension on admission and GI bleed. Resume as appropriate # HLD -continue statin # recent PE/DVT -diagnosed 11/28 s/p IVC filter placement 12/01 -hold Eliquis # recent left hip fracture s/p hemiarthroplasty -PT eval # mood disorder -continue home meds DVT prophylaxis- SCPs DNR/DNI Pt requires inpt stay at least 2 midnights for management of acute GI bleed with hypotension requiring IV fluid resuscitation, blood transfusion, expert consultation and probable EGD versus colonoscopy Quality Stroke Does the patient have a stroke diagnosis?: No VTE Prior VTE?: No VTE Risk Level:: Medical - moderate - high VTE Device Contraindication: N/A - Device Ordered VTE Drug Contraindication: Treatment Not Indicated
--- OUTSIDE RECORDS SUMMARY | 2023-12-29 20:58 | XMS_ITS | Continuity of Care Document ---
Author Organization [facility] Address [address] [place] [address]- Care Team Providers Care Tattoo Artist Name Role Phone Nadia GUNDERSON, Katina Rosado Primary Care Physician [phone] Encounter [facility] Date(s): 03/30/21 - 07/28/21 [facility] [address] [place] [address]- Attending Physician: Antoinette Tyler MD Admitting Physician: Antoinette Tyler MD Referring Physician: Katina Zuniga MD Allergies, Adverse Reactions, Alerts Substance Reaction Severity Status NKA Active Immunizations Given and Recorded Vaccine Date Status Refusal Reason Influenza Virus Vaccine (oldterm) 06/14/21 Recorde d Influenza Virus Vaccine (oldterm) 05/26/19 Recorde d Influenza Virus Vaccine (oldterm) 05/25/13 Given SARS-CoV-2 (COVID-19) mRNA BNT-162b2 vac 1 11/09/20 Recorded SARS-CoV-2 (COVID-19) mRNA BNT-162b2 vac 2 10/17/20 Recorded zoster vaccine, inactivated 03/15/19 Recorded influenza virus vaccine, inactivated 3 06/08/18 Re corded influenza virus vaccine, inactivated 4 07/22/17 Gi xi influenza virus vaccine, inactivated 07/06/14 Give n pneumococcal 13-valent vaccine 5 01/11/16 Recorded Fluzone Preservative-Free (oldterm) 6 06/09/15 Rec orded pneumococcal 23-valent vaccine 7 11/19/12 Given tetanus/diphtheria/pertussis, acel(Tdap) 8 11/19/12 Given 1Result Comment: Done at [facility] 2Result Comment: Done at [facility] 3Location History: [facility] 4Result Comment: [07/22/2017] [facility] [id number] 5Location History: [facility] 6Result Comment: [06/12/2015] high dose 7Admin Note: VIS GIVEN 8Admin Note: vis given Medications aspirin 325 mg oral delayed release tablet 325 mg, 1, tablet, By Mouth, Daily, # 30 tablet, Refills 0, Tot. Refills 0, Maintenance, 04/27/21 16:38:00 EDT, Route to Pharmacy Electronically, [facility]/pharmacy #[id number], Partial fill upon patient requestif the prescription is for a schedule II opioid kirit... Start Date: 04/27/21 Status: Ordered aspirin 81 mg oral tablet 1 tablet = 81 mg, By Mouth, Daily, hold while on eliquis, # 90 tablet, 1 Refills, Maintenance, 04/12/15 13:31:59, Tablet Start Date: 04/12/15 Stop Date: 07/11/15 Status: Ordered atenolol 25 mg oral tablet 25 mg, 1, tablet, By Mouth, Daily, # 90 tablet, Refills 3, Tot. Refills 3, Maintenance, 12/15/20 15:42:00 EDT, [id number], cm, 12/15/20 15:05:00 EDT,Height, 91, kg, 12/13/20 6:45:00 EDT, Dry Weight Start Date: 12/15/20 Stop Date: 12/10/21 Status: Ordered freestyle karsten sensors 14 day freestyle karsten sensors 14 day, See Instructions, # 30 Unknown, Refills 11, Tot. Refills 11, Maintenance, use three times per day dx: E11.9, 10/27/19 13:58:00 EST, Compound, 160, cm, 10/27/19 13:44:00 EST, Height, 94.3, kg, 03/02/19 15:45:00 EDT, D... Start Date: 10/27/19 Status: Ordered FREESTYLE KARSTEN TESTING MONITOR FREESTYLE KARSTEN TESTING MONITOR, See Instructions, # 1 Unknown, Refills 0, Tot. Refills 0, Maintenance, PLEASE USE TO CHECK BG DAILY FOR DX: E11.9 FREETYLE KARSTEN SENSOR, 10/27/19 13:58:00 EST, LET PTKNOW IF COVERED BY INSURANCE, Compound, 160, cm,... Start Date: 10/27/19 Status: Ordered Freestyle Lite Lancets See Instructions, # 100 Unknown, Refills 3, Tot. Refills 3, Maintenance, DX: E11.9 USE THREE TIMES PER DAY, 10/27/19 14:00:00 EST, Compound, Dry Weight Start Date: 10/27/19 Status: Ordered Freestyle Lite Monitor See Instructions, # 1 Unknown, Maintenance, DX: E11.9 USE THREE TIMES PER DAY, 08/03/19 11:17:06 EST, Compound, Dry Weight Start Date: 08/03/19 Status: Ordered Freestyle Lite Test Strips See Instructions, # 200 each, Refills 3, Tot. Refills 3, Maintenance, dx: E11.9 USE THREE TIMES PERDAY, 08/03/19 11:17:06 EST, Compound, Dry Weight Start Date: 08/03/19 Stop Date: 12/01/19 Status: Ordered furosemide 20 mg oral tablet 20 mg, 1, tablet, By Mouth, Daily, PRN, # 14 tablet, Refills 3, Tot. Refills 3, Maintenance, leg swelling, 03/14/21 14:36:00 EDT, Route to Pharmacy Electronically, [facility]/pharmacy #[id number], 162.56, cm, 03/14/21 14:12:00 EDT, Height, 89.8, kg, 03/14/21 14:12... Start Date: 03/14/21 Stop Date: 05/09/21 Status: Ordered lithium 300 mg oral tablet 3 tablet = 900 mg, By Mouth, Daily at bedtime, # 270 tablet, 2 Refills, Maintenance, 09/05/20 14:33:00 EST, [facility]/pharmacy #[id number], 160, cm, 09/05/20 14:19:00 EST, Height, 94.3, kg, 03/02/19 15:45:00 EDT, Dry Weight Start Date: 09/05/20 Status: Ordered metFORMIN 1000 mg oral tablet 1 tablet = 1,000 mg, By Mouth, Daily, # 90 tablet, 3 Refills, Maintenance, 12/15/20 15:41:00 EDT, Tablet, [facility]/pharmacy #[id number], 162.56, cm, 12/15/20 15:05:00 EDT, Height, 91, kg, 12/13/20 6:45:00 EDT, Dry Weight Start Date: 12/15/20 Status: Ordered nortriptyline 50 mg oral capsule 1, capsule, By Mouth, Daily at bedtime, # 90 capsule, Refills 3, Tot. Refills 3, Maintenance, 03/14/21 14:34:00 EDT, Route to Pharmacy Electronically, [facility]/pharmacy #[id number], 162.56, cm, 03/14/21 14:12:00 EDT, Height, 89.8, kg, 03/14/21 14:12:00 EDT, Dry... Start Date: 03/14/21 Status: Ordered omeprazole 20 mg oral enteric coated capsule 1 capsule = 20 mg, By Mouth, Daily, # 90 capsule, 3 Refills, Maintenance, 09/05/20 14:34:00 EST, ECCapsule, [facility]/pharmacy #[id number], 160, cm, 09/05/20 14:19:00 EST, Height, 94.3, kg, 03/02/19 15:45:00 EDT, Dry Weight Start Date: 09/05/20 Status: Ordered simvastatin 20 mg oral tablet 20 mg, 1, tablet, By Mouth, Daily at bedtime, # 90 tablet, Refills 3, Tot. Refills 3, Maintenance, 03/14/21 14:34:00 EDT, [id number] 162.56, cm, 03/14/21 14:12:00 EDT, Height, 89.8, kg, 03/14/21 14:12:00 EDT,... Start Date: 03/14/21 Stop Date: 03/09/22 Status: Ordered Vitamin D3 1000 intl units oral capsule 1 capsule = 1,000 International_Units, By Mouth, Daily, # 30 capsule, 0 Refills, Maintenance, 01/12/18 13:40:46 EDT, Capsule Start Date: 01/12/18 Status: Ordered Problem List Condition Effective Dates Status Health Status Inform ant Bipolar disorder(Confirmed) Active Breast cancer, Right breast cancer, T1b N0, ER positive, [place] positive, HER-2/mickey negative, diagnosed in 2008. 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 Sex
--- OUTSIDE RECORDS SUMMARY | 2023-12-29 20:58 | XMS_ITS | Continuity of Care Document ---
Author Organization [facility] Address [address] [place] [address]- Care Team Providers Care Television Station Manager Name Role Phone Katina Zuniga MD Primary Care Physician Encounter [facility] Date(s): 08/09/19 - 08/19/19 [facility] [address] [place] [address]- [facility] Attending Physician: Merlyn Murillo Admitting Physician: AdmMerlyn flannery Referring Physician: AdmMerlyn flannery Allergies, Adverse Reactions, Alerts Substance Reaction Severity Status NKA Active Immunizations Given and Recorded Vaccine Date Status Refusal Reason Influenza Virus Vaccine (oldterm) 05/26/19 Recorde d Influenza Virus Vaccine (oldterm) 05/25/13 Given zoster vaccine, inactivated 03/15/19 Recorded influenza virus vaccine, inactivated 1 06/08/18 Re corded influenza virus vaccine, inactivated 2 07/22/17 Gi xi influenza virus vaccine, inactivated 07/06/14 Give n pneumococcal 13-valent vaccine 3 01/11/16 Recorded Fluzone Preservative-Free (oldterm) 4 06/09/15 Rec orded pneumococcal 23-valent vaccine 5 11/19/12 Given tetanus/diphtheria/pertussis, acel(Tdap) 6 11/19/12 Given 1Location History: [facility] [address] 2Result Comment: [07/22/2017] [facility] [id number] 3Location History: [facility] 4Result Comment: [06/12/2015] high dose 5Admin Note: VIS GIVEN 6Admin Note: vis given Medications aspirin 81 mg oral tablet 1 tablet = 81 mg, By Mouth, Daily, hold while on eliquis, # 90 tablet, 1 Refills, Maintenance, 04/12/15 13:31:59, Tablet Start Date: 04/12/15 Stop Date: 07/11/15 Status: Ordered atenolol 25 mg oral tablet 25 mg, 1, tablet, By Mouth, Daily, # 90 tablet, Refills 3, Tot. Refills 3, Maintenance, 12/01/18 15:56:18 EDT, Route to Pharmacy Electronically, [id number], [facility]/pharmacy #[id number] Start Date: 12/01/18 Stop Date: 11/26/19 Status: Ordered Calcium Carbonate By Mouth, 1000mg, 0 Refills, Maintenance, 01/12/18 13:45:02 EDT Start Date: 01/12/18 Status: Ordered Fosamax 70 mg oral tablet 1 tablet = 70 mg, By Mouth, Every week, # 4 tablet, 11 Refills, Maintenance, 12/01/18 15:56:43 EDT,Tablet Start Date: 12/01/18 Status: Ordered Freestyle Lite Lancets See Instructions, # 100 Unknown, Refills 3, Tot. Refills 3, Maintenance, DX: E11.9 USE THREE TIMES PER DAY, 08/03/19 11:17:07 EST, Compound, Dry Weight Start Date: 08/03/19 Status: Ordered Freestyle Lite Monitor See Instructions, [...] Mouth, Daily, PRN, # 14 tablet, Refills 0, Tot. Refills 0, Maintenance, leg swelling, 06/30/19 14:03:36 EST, Route to Pharmacy Electronically, [id number], [facility]/pharmacy #[id number] Start Date: 06/30/19 Stop Date: 07/14/19 Status: Ordered lithium 300 mg oral tablet 3 tablet = 900 mg, By Mouth, Daily at bedtime, # 270 tablet, 2 Refills, Maintenance, 06/30/19 14:01:56 EST Start Date: 06/30/19 Status: Ordered metFORMIN 1000 mg oral tablet 1 tablet = 1,000 mg, By Mouth, 2 times a day, # 60 tablet, 3 Refills, Maintenance, 08/03/19 11:14:56 EST, Tablet, 160, cm, 03/26/19 13:55:17 EDT, Height, 94.3, kg, 03/02/19 15:45:31 EDT, Dry Weight Start Date: 08/03/19 Status: Ordered nortriptyline 50 mg oral capsule 50 mg, 1, capsule, By Mouth, Daily at bedtime, # 90 capsule, Refills 3, Tot. Refills 3, Maintenance, 08/03/19 11:17:05 EST, Print Requisition Start Date: 08/03/19 Status: Ordered omeprazole 20 mg oral enteric coated capsule 1 capsule = 20 mg, By Mouth, Daily, # 90 capsule, 2 Refills, Maintenance, 06/09/19 16:23:30 EDT, ECCapsule Start Date: 06/09/19 Status: Ordered simvastatin 20 mg oral tablet 20 mg, 1, tablet, By Mouth, Daily at bedtime, # 90 tablet, Refills 3, Tot. Refills 3, Maintenance, 06/30/19 14:01:33 EST, Route to Pharmacy Electronically, [id number], [facility]/pharmacy #[id number] Start Date: 06/30/19 Stop Date: 06/24/20 Status: Ordered Vitamin D3 1000 intl units oral capsule 1 capsule = 1,000 International_Units, By Mouth, Daily, # 30 capsule, 0 Refills, Maintenance, 01/12/18 13:40:46 EDT, Capsule Start Date: 01/12/18 Status: Ordered Voltaren 1% topical gel = 2 Gm, Topically, 4 times a day, PRN Pain , Moderate, # 100 Gm, 11 Refills, Maintenance, 12/01/18 17:50:03 EDT, Gel, BRAND NAME ONLY, 2 Gm Topically 4 times a day,PRN:Pain , Moderate Start Date: 12/01/18 Status: Ordered Problem List Condition Effective Dates Status Health Status Inform ant Bipolar disorder(Confirmed) Active Breast cancer, Right breast cancer, T1b N0, ER positive, [place] positive, HER-2/mickey negative, diagnosed in 2008. 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
--- OUTSIDE RECORDS SUMMARY | 2023-12-29 20:58 | XMS_ITS | Continuity of Care Document ---
Author Organization [facility] Address [address] [place] [address]- Care Team Providers Care Acoustical Tile Drill Press Operator Name Role Phone Nadia GUNDERSON, Katina Rosado Primary Care Physician Encounter [facility] Date(s): 06/29/21 - 10/27/21 [facility] [address] [place] [address]- Attending Physician: Antoinette Tyler MD Admitting Physician: Antoinette Tyler MD Referring Physician: Not on Staff, Referring MD Allergies, Adverse Reactions, Alerts No Known Allergies Immunizations Given and Recorded Vaccine Date Status Refusal Reason SARS-CoV-2 (COVID-19) mRNA BNT-162b2 vac 07/02/21 Recorded SARS-CoV-2 (COVID-19) mRNA BNT-162b2 vac 1 11/09/20 Recorded SARS-CoV-2 (COVID-19) mRNA BNT-162b2 vac 2 10/17/20 Recorded Influenza Virus Vaccine (oldterm) 06/14/21 Recorde d Influenza Virus Vaccine (oldterm) 05/26/19 Recorde d Influenza Virus Vaccine (oldterm) 05/25/13 Given zoster vaccine, inactivated 06/03/19 Recorded zoster vaccine, inactivated 03/15/19 Recorded influenza virus vaccine, inactivated 3 06/08/18 Re corded influenza virus vaccine, inactivated 4 07/22/17 Gi xi influenza virus vaccine, inactivated 07/06/14 Give n pneumococcal 13-valent vaccine 5 01/11/16 Recorded Fluzone Preservative-Free (oldterm) 6 06/09/15 Rec orded pneumococcal 23-valent vaccine 7 11/19/12 Given tetanus/diphtheria/pertussis, acel(Tdap) 8 11/19/12 Given 1Result Comment: [facility] at [facility] 2Result Comment: Done at [facility] 3Location History: [facility] 4Result Comment: [07/22/2017] [facility] [id number] [facility] 6Result Comment: [06/12/2015] high dose 7Admin Note: VIS GIVEN 8Admin Note: vis given Medications aspirin 325 mg oral delayed release tablet 325 mg, 1, tablet, By Mouth, Daily, # 30 tablet, Refills 0, Tot. Refills 0, Maintenance, 04/27/21 16:38:00 EDT, Route to Pharmacy Electronically, [facility]/pharmacy #[id number], Partial fill upon patient requestif the prescription is for a schedule II opioid kirit... Start Date: 04/27/21 Status: Ordered aspirin 325 mg oral delayed release tablet 325 mg, 1, tablet, By Mouth, Daily, # 90 tablet, Refills 3, Tot. Refills 3, Maintenance, 10/10/21 13:09:00 EST, Route to Pharmacy Electronically, [facility]/pharmacy #[id number], Partial fill upon patient requestif the prescription is for a schedule II opioid kirit... Start Date: 10/10/21 Status: Ordered atenolol 25 mg oral tablet 25 mg, 1, tablet, By Mouth, Daily, # 90 tablet, Refills 3, Tot. Refills 3, Maintenance, 12/10/21 15:42:00 EDT, Route to Pharmacy Electronically, [facility]/pharmacy #[id number], 162.56, cm, 10/10/21 12:54:00 EST,Height, 90.6, kg, 04/27/21 9:57:00 EDT, Dry Weight Start Date: 12/10/21 Stop Date: 12/05/22 Status: Ordered freestyle karsten sensors 14 day [...] DX: E11.9 USE THREE TIMES PER DAY, 09/21/21 9:52:00 EST, Compound, 162.56, cm, 09/19/21 13:07:00 EST, Height, 90.6, kg, 04/27/21 9:57:00 EDT, Dry Weight Start Date: 09/21/21 Status: Ordered Freestyle Lite Monitor See Instructions, # 1 Unknown, Maintenance, DX: E11.9 USE THREE TIMES PER DAY, 08/03/19 11:17:06 EST, Compound, Dry Weight Start Date: 08/03/19 Status: Ordered Freestyle Lite Test Strips See Instructions, # 200 each, Refills 3, Tot. Refills 3, Maintenance, dx: E11.9 USE THREE TIMES PERDAY, 09/21/21 9:52:00 EST, Compound, 162.56, cm, 09/19/21 13:07:00 EST, Height, 90.6, kg, 04/27/21 9:57:00 EDT, Dry Weight Start Date: 09/21/21 Stop Date: 01/19/22 Status: Ordered furosemide 20 mg oral tablet 20 mg, 1, tablet, By Mouth, Daily, PRN, # 14 tablet, Refills 3, Tot. Refills 3, Maintenance, leg swelling, 03/14/21 14:36:00 EDT, Route to Pharmacy Electronically, [facility]/pharmacy #[id number], 162.56, cm, 03/14/21 14:12:00 EDT, Height, 89.8, kg, 03/14/21 14:12... Start Date: 03/14/21 Stop Date: 05/09/21 Status: Ordered levocetirizine 5 mg oral tablet 1 tablet, By Mouth, Daily in PM, # 30 tablet, 10 Refills, [facility] STORE [id number], 30, TAKE 1 TABLET BY MOUTH EVERY EVENING, 162.56, cm, 10/10/21 13:15:00 EST, Height, 90.6, kg, 04/27/21 9:57:00 EDT, Dry Weight Start Date: 10/16/21 Status: Ordered lithium 300 mg oral tablet 3 tablet = 900 mg, By Mouth, Daily at bedtime, # 270 tablet, 1 Refills, Maintenance, 09/04/21 17:14:00 EST, [facility]/pharmacy #[id number], 162.56, cm, 06/29/21 14:06:00 EDT, Height, 90.6, kg, 04/27/21 9:57:00 EDT, Dry Weight Start Date: 09/04/21 Status: Ordered metFORMIN 1000 mg oral tablet 1 tablet = 1,000 mg, By Mouth, Daily, # 90 tablet, 1 Refills, Maintenance, 09/21/21 9:52:00 EST, Tablet, [facility]/pharmacy #[id number], 162.56, cm, 09/19/21 13:07:00 EST, Height, 90.6, kg, 04/27/21 9:57:00 EDT,Dry Weight Start Date: 09/21/21 Status: Ordered nortriptyline 50 mg oral capsule 1, capsule, By Mouth, Daily at bedtime, # 90 capsule, Refills 1, Tot. Refills 1, Maintenance, 09/04/21 13:33:00 EST, Route to Pharmacy Electronically, [facility]/pharmacy #[id number], 162.56, cm, 06/29/21 14:06:00 EDT, Height, 90.6, kg, 04/27/21 9:57:00 EDT, Dry W... Start Date: 09/04/21 Status: Ordered omeprazole 20 mg oral enteric coated capsule 1 capsule = 20 mg, By Mouth, Daily, # 90 capsule, 3 Refills, Maintenance, 10/10/21 13:07:00 EST, ECCapsule, [facility]/pharmacy #[id number], 162.56, cm, 10/10/21 12:54:00 EST, Height, 90.6, kg, 04/27/21 9:57:00 EDT, Dry Weight Start Date: 10/10/21 Status: Ordered simvastatin 20 mg oral tablet 20 mg, 1, tablet, By Mouth, Daily at bedtime, # 90 tablet, Refills 3, Tot. Refills 3, Maintenance, 03/14/21 14:34:00 EDT, Route to Pharmacy Electronically, [facility]/pharmacy #[id number], 162.56, cm, 03/14/21 14:12:00 EDT, Height, [...] Right breast cancer, T1b N0, ER positive, [place] positive, HER-2/mickey negative, diagnosed in 2008. 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 Sex
--- OUTSIDE RECORDS SUMMARY | 2023-12-29 20:58 | XMS_ITS | Continuity of Care Document ---
Author Organization [facility] Address [address] [place] [address]- Care Team Providers Care Diamond Powder Technician Name Role Phone Katina Zuniga MD Primary Care Physician [phone] Encounter [facility] Date(s): 03/22/22 - 04/21/22 [facility] [address] [place], [place] [address] Allergies, Adverse Reactions, Alerts No Known Allergies [...] 07/22/17 Gi xi influenza virus vaccine, inactivated 09/20/16 Ryan rded influenza virus vaccine, inactivated 07/06/14 Give n pneumococcal 13-valent vaccine 5 01/11/16 Recorded Fluzone Preservative-Free (oldterm) 6 06/09/15 Rec orded Zoster Vaccine Live 12/25/12 Recorded pneumococcal 23-valent vaccine 7 11/19/12 Given tetanus/diphtheria/pertussis, acel(Tdap) 8 11/19/12 Given 1Result Comment: Done at [facility] 2Result Comment: Done at [facility] 3[facility] 4Result Comment: [07/22/2017] [facility] [id number] 5[facility] 6Result Comment: [06/12/2015] high dose 7Admin Note: VIS GIVEN 8Admin Note: vis given Medications amLODIPine 5 mg oral tablet 1 tablet = 5 mg, By Mouth, Daily, # 30 tablet, 0 Refills, Maintenance, 03/12/22 15:05:00 EDT, Tablet, Partial fill upon patient request if the prescription is for a schedule II opioid drug. Start Date: 03/12/22 Status: Ordered aspirin 325 mg oral delayed release tablet 325 mg, 1, tablet, By Mouth, Daily, # 90 tablet, Refills 2, Tot. Refills 2, Maintenance, 01/03/22 11:36:00 EDT, Route to Pharmacy Electronically, [facility]/pharmacy #[id number], Partial fill upon patient requestif the prescription is for a schedule II opioid kirit... Start Date: 01/03/22 Status: Ordered divalproex sodium 500 mg oral enteric coated tablet = 500 mg, By Mouth, 2 times a day, # 60 tablet, 2 Refills, Maintenance, 04/12/22 15:12:00 EDT, Tablet, [facility]/pharmacy #[id number], Partial fill upon patient request if the prescription is for a schedule II opioid drug., 168, cm, 04/02/22 15:54:00 EDT, Height,... Start Date: 04/12/22 Stop Date: 07/11/22 Status: Ordered freestyle karsten sensors 14 day [...] Status: Ordered furosemide 20 mg oral tablet TAKE 1 TABLET BY MOUTH EVERY DAY NEEDED FOR LEG SWELLING Start Date: 03/29/22 Status: Ordered lanolin topical - ointment 1 application, Topically, 3 times a day, PRN as needed for dry skin, # 113 Gm, 0 Refills, Maintenance, 02/04/22 8:30:00 EDT, Ointment, [facility]/pharmacy #[id number], Partial fill upon patient request if the prescription is for a schedule II opioid drug., 1 appli... Start Date: 02/04/22 Status: Ordered MetFORMIN (Eqv-Glucophage XR) 500 mg oral tablet, extended release TAKE 1 TABLET BY MOUTH EVERY DAY Start Date: 03/29/22 Status: Ordered omeprazole 20 mg oral enteric coated capsule 1 capsule = 20 mg, By Mouth, Daily, # 90 capsule, 3 Refills, Maintenance, 10/10/21 13:07:00 EST, [id number], cm, 10/10/21 12:54:00 EST, Height, 90.6, kg, 04/27/21 9:57:00 EDT, Dry Weight Start Date: 10/10/21 Status: Ordered simvastatin 20 mg oral tablet 20 mg, 1, tablet, By Mouth, Daily at bedtime, # 90 tablet, Refills 3, Tot. Refills 3, Maintenance, 01/03/22 11:37:00 EDT, [id number] 162.56, cm, 01/03/22 11:11:00 EDT, Height, 78.4, kg, 11/16/21 22:27:00 EDT,... Start Date: 01/03/22 Stop Date: 12/29/22 Status: Ordered torsemide 20 mg oral tablet 1 tablet, By Mouth, Daily, PRN NEEDED FOR LEG SWELLING, # 90 tablet, 1 Refills, [facility] STORE [id number],168, cm, 04/02/22 15:54:00 EDT, Height, 74.1, kg, 03/30/22 4:57:00 EDT, Dry Weight Start Date: 04/05/22 Status: Ordered Vitamin D3 1000 intl units oral capsule 1 capsule = 1,000 International_Units, By Mouth, Daily, # 90 capsule, 2 Refills, Maintenance, 01/03/22 11:38:00 EDT, [facility]apsule, [id number] 162.56, cm, 01/03/22 11:11:00 EDT, Height, 78.4, kg, 11/16/21 22:27:00 EDT, Dry Weight Start Date: 01/03/22 Status: Ordered Walker See Instructions, # 1 each, Refills 0, Tot. Refills 0, Maintenance, Ht: 162.56cm Wt: 83.1kg DX: osteoarthritis M19.90 Length of Need: x99, 01/28/22 12:10:00 EDT, Supply Start Date: 01/28/22 Status: Ordered ZyPREXA 2.5 mg oral tablet 2.5 mg, 1, tablet, By Mouth, Daily at bedtime, # 30 tablet, Refills 2, Tot. Refills 2, Maintenance,04/15/22 12:05:00 EDT, Route to Pharmacy Electronically, [facility]/pharmacy #[id number], let us know if not covered by insurance, 168, cm, 04/02/22 15:54:00 EDT, H... 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
--- OUTSIDE RECORDS SUMMARY | 2023-12-29 20:58 | XMS_ITS | Continuity of Care Document ---
Author Organization [facility] Address [address] [place] [address]- Care Team Providers Care Shredding Machine Knife Changer Name Role Phone Nadia GUNDERSON, Katina Rosado Primary Care Physician [phone] Encounter [facility] Date(s): 10/06/20 - 11/05/20 [facility] [address] [place], [place] [address] Allergies, Adverse Reactions, Alerts Substance Reaction Severity [...] tetanus/diphtheria/pertussis, acel(Tdap) 6 11/19/12 Given 1Location History: [facility] [address] 2Result Comment: [07/22/2017] [facility] [id number] 3[facility] 4Result Comment: [06/12/2015] high [...] tablet, Refills 3, Tot. Refills 3, Maintenance, 10/27/19 14:06:00 EST, Route to Pharmacy Electronically, [facility]/pharmacy #[id number], 160, cm, 10/27/19 13:44:00 EST, Height, 94.3, kg, 03/02/19 15:45:00 EDT, Dry Weight Start Date: 10/27/19 Stop Date: 10/21/20 Status: Ordered Calcium Carbonate By Mouth, 1000mg, 0 Refills, Maintenance, 01/12/18 13:45:02 EDT Start Date: 01/12/18 Status: Ordered Fosamax 70 mg oral tablet 1 tablet = 70 mg, By Mouth, Every week, # 4 tablet, 11 Refills, Maintenance, 09/20/19 16:46:00 EST,[id number], cm, 03/26/19 13:55:00 EDT, Height, 94.3, kg, 03/02/19 15:45:00 EDT, Dry Weight Start Date: 09/20/19 Status: Ordered freestyle karsten sensors 14 day [...] 3, Tot. Refills 3, Maintenance, leg swelling, 01/26/20 12:49:00 EDT, Route to Pharmacy Electronically, [facility]/pharmacy #[id number], 160, cm, 01/21/20 10:58:00 EDT, Height, 94.3, kg, 03/02/19 15:45:00... Start Date: 01/26/20 Stop Date: 03/22/20 Status: Ordered lithium 300 mg oral tablet 3 tablet = 900 mg, By Mouth, Daily at bedtime, # 270 tablet, 2 Refills, Maintenance, 09/05/20 14:33:00 EST, [facility]/pharmacy #[id number], 160, cm, 09/05/20 14:19:00 EST, Height, 94.3, kg, 03/02/19 15:45:00 EDT, Dry Weight Start Date: 09/05/20 Status: Ordered metFORMIN 1000 mg oral tablet 1 tablet = 1,000 mg, By Mouth, Daily, # 90 tablet, 3 Refills, Maintenance, 10/27/19 13:59:00 EST, Tablet, [facility]/pharmacy #[id number], 160, cm, 10/27/19 13:44:00 EST, Height, 94.3, kg, 03/02/19 15:45:00 EDT, Dry Weight Start Date: 10/27/19 Status: Ordered mupirocin 2% topical ointment 1 application, Topically, 3 times a day, apply to leg wound, # 22 Gm, 3 Refills, Maintenance, 01/11/20 15:40:00 EDT, Ointment, [facility]/pharmacy #[id number], 1 application Topically 3 times a day,Instr:apply toleg wound, 160, cm, 10/27/19 13:44:00 EST, Height,... Start Date: 01/11/20 Status: Ordered nortriptyline 50 mg oral capsule 1, capsule, By Mouth, Daily at bedtime, # 90 capsule, Refills 1, Tot. Refills 0, Maintenance, 09/04/20 15:55:00 EST, Route to Pharmacy Electronically, [facility] [id number], 160, cm, 06/27/20 14:03:00 EST,Height, 94.3, kg, 03/02/19 15:45:00 EDT, Dry Weight Start Date: 09/04/20 Status: Ordered omeprazole 20 mg oral enteric coated capsule 1 capsule = 20 mg, By Mouth, Daily, # 90 capsule, 3 Refills, Maintenance, 09/05/20 14:34:00 EST, ECCapsule, [facility]/pharmacy #[id number], 160, cm, 09/05/20 14:19:00 EST, Height, 94.3, kg, 03/02/19 15:45:00 EDT, Dry Weight Start Date: 09/05/20 Status: Ordered permethrin 5% topical cream 1 application, Topically, Once, Apply to skin from head to soles. Leave on 8-10 hours then wash off, # 60 mL, 0 Refills, Soft Stop, 09/26/20 16:00:00 EST, Lotion, [facility]/pharmacy #[id number], 1 application Topically Once,Instr:Apply to skin from head to soles.... Start Date: 09/26/20 Status: Ordered simvastatin 20 mg oral tablet 20 mg, 1, tablet, By Mouth, Daily at bedtime, # 90 tablet, Refills 3, Tot. Refills 3, Maintenance, 06/30/19 14:01:33 EST, Route to Pharmacy Electronically, [id number], [facility]/pharmacy #[id number] Start Date: 06/30/19 Stop Date: [...] Right breast cancer, T1b N0, ER positive, [place] positive, HER-2/mickey negative, diagnosed in 2008. Left [...]
--- OUTSIDE RECORDS SUMMARY | 2023-12-29 20:58 | XMS_ITS | Continuity of Care Document ---
Author Organization [facility] Address [address] [place] [address]- Care Team Providers Care Medical Customer Service Representative Name Role Phone Katina Zuniga MD Primary Care Physician [phone] Encounter [facility] Date(s): 09/17/22 - 10/17/22 [facility] [address] [place], [place] [address] Allergies, Adverse Reactions, Alerts No Known Allergies Immunizations Given and Recorded Vaccine Date Status Refusal Reason influenza virus vaccine, inactivated 1 06/07/22 Gi xi influenza virus vaccine, inactivated 2 06/08/18 Re corded influenza virus vaccine, inactivated 3 07/22/17 Gi xi influenza virus vaccine, inactivated 09/20/16 Ryan rded influenza virus vaccine, inactivated 07/06/14 Give n SARS-CoV-2 mRNA ([id number]) vax 02/24/22 Recorded SARS-CoV-2 (COVID-19) mRNA BNT-162b2 vac 07/02/21 Recorded SARS-CoV-2 (COVID-19) mRNA BNT-162b2 vac 4 11/09/20 Recorded SARS-CoV-2 (COVID-19) mRNA BNT-162b2 vac 5 10/17/20 Recorded Influenza Virus Vaccine (oldterm) 06/14/21 Recorde d Influenza Virus Vaccine (oldterm) 05/26/19 Recorde d Influenza Virus Vaccine (oldterm) 05/25/13 Given zoster vaccine, inactivated 06/03/19 Recorded zoster vaccine, inactivated 03/15/19 Recorded pneumococcal 13-valent vaccine 6 01/11/16 Recorded Fluzone Preservative-Free (oldterm) 7 06/09/15 Rec orded Zoster Vaccine Live 12/25/12 Recorded pneumococcal 23-valent vaccine 8 11/19/12 Given tetanus/diphtheria/pertussis, acel(Tdap) 9 11/19/12 Given 1Result Comment: [facility] [id number] 2Location History: [facility] 3Result Comment: [07/22/2017] [facility] [id number] 4Result Comment: Done at [facility] 5Result Comment: Done at [facility] 7Result Comment: [06/12/2015] high dose 8Admin Note: VIS GIVEN 9Admin Note: vis given Medications amLODIPine 5 mg oral tablet 1 tablet = 5 mg, By Mouth, Daily, # 30 tablet, 0 Refills, Maintenance, 03/12/22 15:05:00 EDT, Tablet, Partial fill upon patient request if the prescription is for a schedule II opioid drug. Start Date: 03/12/22 Status: Ordered aspirin 81 mg oral delayed release tablet 81 mg, 1, tablet, By Mouth, Daily, # 90 tablet, Refills 1, Tot. Refills 1, Maintenance, 08/29/22 14:10:00 EST, Route to Pharmacy Electronically, [facility]/pharmacy #[id number], Partial fill upon patient request if the prescription is for a schedule II opioid drug... Start Date: 08/29/22 Status: Ordered divalproex sodium 500 mg oral enteric coated tablet 1 tablet = 500 mg, By Mouth, 2 times a day Start Date: 05/15/22 Status: Ordered folic acid 1 mg oral tablet 1 mg, 1, tablet, By Mouth, Daily, # 90 tablet, Refills 0, Tot. Refills 0, Maintenance, 08/29/22 9:05:00 EST, Route to Pharmacy Electronically, [facility]/pharmacy #[id number], Partial fill upon patient request ifthe prescription is for a schedule II opioid drug.,... Start Date: 08/29/22 Status: Ordered freestyle kip sensors 14 day freestyle kip sensors 14 day, See Instructions, # 30 Unknown, Refills 11, Tot. Refills 11, Maintenance, use three times per day dx: E11.9, 10/27/19 13:58:00 EST, Compound, 160, cm, 10/27/19 13:44:00 EST, Height, 94.3, kg, 03/02/19 15:45:00 EDT, D... Start Date: 10/27/19 Status: Ordered FREESTYLE KIP TESTING MONITOR FREESTYLE KIP TESTING MONITOR, See Instructions, # 1 Unknown, Refills 0, Tot. Refills 0, Maintenance, PLEASE USE TO CHECK BG DAILY FOR DX: E11.9 FREETYLE KIP SENSOR, 10/27/19 13:58:00 EST, LET PTKNOW IF [...] Date: 09/21/21 Stop Date: 01/19/22 Status: Ordered Lidoderm 5% film Topically, Daily, 0 Refills, Maintenance, 08/01/22 11:29:00 EST, Partial fill upon patient request if the prescription is for a schedule II opioid drug. Start Date: 08/01/22 Status: Ordered omeprazole 20 mg oral enteric coated capsule 1 capsule = 20 mg, By Mouth, Daily, # 90 capsule, 3 Refills, Maintenance, 10/10/21 13:07:00 EST, ECCapsule, [facility]/pharmacy #[id number], 162.56, cm, 10/10/21 12:54:00 EST, Height, 90.6, kg, 04/27/21 9:57:00 EDT, Dry Weight Start Date: 10/10/21 Status: Ordered pantoprazole 20 mg oral delayed release tablet 1 tablet = 20 mg, By Mouth, Daily, TAKE 1 TABLET BY MOUTH EVERYDAY AT BEDTIME, # 90 tablet, 0 Refills, Maintenance, 08/29/22 14:13:00 EST, 161, cm, 08/01/22 11:03:00 EST, Height, 73, kg, 06/28/22 16:35:00 EDT, Dry Weight Start Date: 08/29/22 Stop Date: 11/27/22 Status: Ordered risperiDONE 2 mg oral tablet 2 mg, 1, tablet, By Mouth, Every 48 hours, # 30 tablet, Refills 0, Maintenance, 08/01/22 11:24:00 EST, Partial fill upon patient request if the prescription is for a schedule II opioid drug. Start Date: 08/01/22 Status: Ordered simvastatin 20 mg oral tablet 20 mg, 1, tablet, By Mouth, Daily at bedtime, # 90 tablet, Refills 3, Tot. Refills 3, Maintenance, 01/03/22 11:37:00 EDT, Route to Pharmacy Electronically, [facility]/pharmacy #[id number], 162.56, cm, 01/03/22 11:11:00 EDT, Height, 78.4, kg, 11/16/21 22:27:00 EDT,... Start Date: 01/03/22 Stop Date: 12/29/22 Status: Ordered torsemide 20 mg oral tablet 1 tablet, By Mouth, Daily, PRN NEEDED FOR LEG SWELLING, # 90 tablet, 1 Refills, [facility] STORE [id number],168, cm, 04/02/22 15:54:00 EDT, Height, 74.1, kg, 03/30/22 4:57:00 EDT, Dry Weight Start Date: 04/05/22 Status: Ordered traZODone 50 mg oral tablet 50 mg, 1, tablet, By Mouth, Daily at bedtime, PRN, Refills 0, Maintenance, Sleep, 06/07/22 11:36:00EDT, Partial fill upon patient request if the prescription is for a schedule II opioid drug. Start Date: 06/07/22 Status: Ordered Tylenol 8 HR Arthritis Pain 650 mg oral tablet, extended release 2 tablet = 1,300 mg, By Mouth, Daily in AM, PRN Pain , Moderate, # 100 tablet, 0 Refills, Maintenance, 08/01/22 11:33:00 EST, ER Tablet, [facility]/pharmacy #[id number], Partial fill upon patient request if the prescription is for a schedule II opioid drug., 161,... Start Date: 08/01/22 Status: Ordered Walker See Instructions, # 1 each, Refills 0, Tot. Refills 0, Maintenance, Ht: 162.56cm Wt: 83.1kg DX: osteoarthritis M19.90 Length of Need: x99, 01/28/22 12:10:00 EDT, Supply Start Date: 01/28/22 Status: Ordered Problem List Condition Confirmation Course Effective Dates Status Health Status Informant Bipolar disorder Confirmed Active Bipolar disorder Confirmed Active CKD (chronic kidney disease) Confirmed Active Depression Confirmed Active Diabetes Confirmed Active Diabetes mellitus Confirmed Active Esophageal reflux (GERD) Confirmed Active Fall Confirmed Active Hypertension Confirmed Active Obese class I Confirmed Active Obesity Confirmed Active Osteopenia with high risk of fracture Confirmed Active pTis: 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 Pure hypercholesterolemia Confirmed Active Leg swelling Confirmed Active TIA (transient ischemic attack) Confirmed Active Trauma Confirmed Active Tremors of nervous system Confirmed Active Urinary urgency Confirmed Active Venous insufficiency Confirmed Active Wheezing Confirmed Active Social History Social History Type Response Smoking Status Former smoker, quit more than 30 days ago entered on: 11/16/21 Sex Patient Care team information Care Team Personnel Name: Katina Zuniga MD Position: [facility] Primary Care Physician Member Role: PCP Address: Address: [address] [place] [id number]- Name: Mily Stein RN Position: [facility] RN Member Role: Primary Care Nurse Name: Geno Cifuentes RN Position: [facility] RN Member Role: Primary Care Nurse Name: Rosa Agustin NP Position: [facility] Associate Professional Member Role: Primary Care Nurse Address: Address: [address] [place] [address]- Name: Steve Saravia RN Position: [facility] RN Member Role: Primary Care Nurse Name: Ella Garcia RN Position: [facility] RN Member Role: Primary Care Nurse Name: Cy Benjamin DO Position: [facility] Renal MD Member Role: Lifetime Consulting Physician Address: Address: [address] [place] [address] [address] [facility] [place] [address]- [place] Name: Lauren Lund RN Position: [facility] ED RN W/OE and Tasks Member Role: Primary Care Nurse Name: Marisol Grady RN Position: S RN Member Role: Primary Care Nurse Name: Flory Fernandez RN Position: S RN Member Role: Primary Care Nurse Name: Paula Foss RN Position: [facility] RN Member Role: Primary Care Nurse Address: Address: [address] [place] [address]- Name: Nidia De Oliveira Position: [facility] RN Member Role: Primary Care Nurse Care Team Related Persons Name: RAFAELA ANDREWS Address: home [address] [place] [address] Name: VALENTINA ARNOLD Address: home [address] [facility] [address] [place] [address]
--- OUTSIDE RECORDS SUMMARY | 2023-12-29 20:58 | XMS_ITS | Continuity of Care Document ---
Author Organization [facility] Address [address] [place] [address]- Care Team Providers Care Lead Systems Architect Name Role Phone Katina Zuniga MD Primary Care Physician [phone] Encounter [facility] Date(s): 12/29/19 - 01/28/20 [facility] [address] [place] [address]- [facility] Attending Physician: Merlyn Murillo Admitting Physician: Merlyn Murillo Referring Physician: Merlyn Murillo Allergies, Adverse Reactions, Alerts Substance Reaction Severity [...] [facility] [address] 2Result Comment: [07/22/2017] [facility] [id number] 3[facility] 4Result Comment: [06/12/2015] high [...] 10/27/19 14:06:00 EST, Route to Pharmacy Electronically, [facility]/pharmacy #[id number], 160, cm, 10/27/19 13:44:00 EST, Height, 94.3, kg, 03/02/19 15:45:00 EDT, Dry Weight Start Date: 10/27/19 Stop Date: 10/21/20 Status: Ordered Calcium Carbonate By Mouth, 1000mg, 0 Refills, Maintenance, 01/12/18 13:45:02 EDT Start Date: 01/12/18 Status: Ordered doxycycline monohydrate 100 mg oral capsule 1 capsule = 100 mg, By Mouth, 2 times a day, for 5 days, # 10 capsule, 0 Refills, Acute 01/31/20 12:54:00 EDT, 01/26/20 12:54:00 EDT, Capsule, [facility]/pharmacy #[id number], 160, cm, 01/21/20 10:58:00 EDT, Height, 94.3, kg, 03/02/19 15:45:00 EDT, Dry Weight Start Date: 01/26/20 Stop Date: 01/31/20 Status: Ordered Fosamax 70 mg oral tablet 1 tablet = 70 mg, By Mouth, Every week, # 4 tablet, 11 Refills, Maintenance, 09/20/19 16:46:00 EST,Tablet, [facility]/pharmacy #[id number], 160, cm, 03/26/19 13:55:00 EDT, Height, [...] 01/26/20 12:49:00 EDT, Route to Pharmacy Electronically, [facility]/pharmacy #[id number], 160, cm, 01/21/20 10:58:00 EDT, [...] By Mouth, 2 times a day, # 180 tablet, 3 Refills, Maintenance, 10/27/19 13:59:00 EST, Tablet, [facility]/pharmacy #[id number], 160, cm, 10/27/19 13:44:00 EST, Height, 94.3, kg, 03/02/19 15:45:00 EDT, Dry Weight Start Date: 10/27/19 Status: Ordered mupirocin 2% topical ointment 1 application, Topically, 3 times a day, apply to leg wound, # 22 Gm, 3 Refills, Maintenance, 01/11/20 15:40:00 EDT, Ointment, [facility]/pharmacy #[id number], 1 application Topically 3 times a day,Instr:apply toleg wound, 160, cm, 10/27/19 13:44:00 EST, Height,... Start Date: 01/11/20 Status: Ordered nortriptyline 50 mg oral capsule 50 mg, 1, capsule, By Mouth, Daily at bedtime, # 90 capsule, Refills 1, Tot. Refills 1, Maintenance, 11/30/19 14:00:00 EDT, Route to Pharmacy Electronically, [facility]/pharmacy #[id number], 160, cm, 10/27/19 13:44:00 EST, Height, 94.3, kg, 03/02/19 15:45:00 EDT,... Start Date: 11/30/19 Status: Ordered omeprazole 20 mg oral enteric coated capsule 1 capsule = 20 mg, By Mouth, Daily, # 90 capsule, 2 Refills, Maintenance, 06/09/19 16:23:30 EDT, ECCapsule Start Date: 06/09/19 Status: Ordered simvastatin 20 mg oral tablet 20 mg, 1, tablet, By Mouth, Daily at bedtime, # 90 tablet, Refills 3, Tot. Refills 3, Maintenance, 06/30/19 14:01:33 EST, Route to Pharmacy Electronically, [id number], [facility]/pharmacy #[id number] Start Date: 06/30/19 Stop Date: [...] Active Deep vein thrombosis(Confirmed) Active Depression(Confirmed) Active Diabetes(Confirmed) Active Esophageal reflux (GERD)(Confirmed) Active Hypertension(Confirmed) Active Obesity(Confirmed) Active Osteopenia with high risk of fracture(Confirmed) Active pTis: Ductal carcinoma in si tu (breast)(Confirmed) 09/25/08 Active Pure hypercholesterolemia(Confirmed) Active Urinary urgency(Confirmed) Active Social History Social History Type Response Smoking Status Former smoker; Other : quit 2012; entered on: 01/12/15 Sex
--- OUTSIDE RECORDS SUMMARY | 2023-12-29 20:58 | XMS_ITS | Continuity of Care Document ---
Author Organization [facility] Address [address] [place] [address]- Care Team Providers Care Trolley Car Mechanic Name Role Phone Katina Zuniga MD Primary Care Physician Encounter [facility] Date(s): 09/23/19 - 10/03/19 [facility] [address] [place] [address]- [facility] Attending Physician: Merlyn Murillo Admitting Physician: AdmMerlyn [...] [facility] [address] 2Result Comment: [07/22/2017] [facility] [id number] 3[facility] 4Result Comment: [06/12/2015] high [...] 12/01/18 15:56:18 EDT, Route to Pharmacy Electronically, [id number], [facility]/pharmacy #[id number] Start Date: 12/01/18 Stop Date: 11/26/19 Status: Ordered Calcium Carbonate By Mouth, 1000mg, 0 Refills, Maintenance, 01/12/18 13:45:02 EDT Start Date: 01/12/18 Status: Ordered Fosamax 70 mg oral tablet 1 tablet = 70 mg, By Mouth, Every week, # 4 tablet, 11 Refills, Maintenance, 09/20/19 16:46:00 EST,Tablet, [facility]/pharmacy #[id number], 160, cm, 03/26/19 13:55:00 EDT, Height, 94.3, kg, 03/02/19 15:45:00 EDT, Dry Weight Start Date: 09/20/19 Status: Ordered Freestyle Lite Lancets See Instructions, [...] 06/30/19 14:03:36 EST, Route to Pharmacy Electronically, [id number], [facility]/pharmacy #[id number] Start Date: 06/30/19 Stop Date: 07/14/19 [...] 06/30/19 14:01:33 EST, Route to Pharmacy Electronically, [id number], [facility]/pharmacy #[id number] Start Date: 06/30/19 Stop Date: 06/24/20 [...] Right breast cancer, T1b N0, ER positive, [place] positive, HER-2/mickey negative, diagnosed in 2008. Left [...]
--- OUTSIDE RECORDS SUMMARY | 2023-12-29 20:58 | XMS_ITS | Continuity of Care Document ---
Author Organization [facility] Address [address] [place] [address]- Care Team Providers Care Beer Cooler Name Role Phone Katina Zuniga MD Primary Care Physician Encounter [facility] Date(s): 09/05/21 - 10/11/[address] [address] Attending Physician: Katina Zuniga MD Admitting Physician: Katina Zuniga MD Referring Physician: Katina Zuniga MD Allergies, Adverse Reactions, Alerts No Known [...] 8 11/19/12 Given 1Result Comment: Done at [facility] 2Result Comment: Done at [facility] 3Location History: [facility] 4Result Comment: [07/22/2017] [facility] [id number] 5[facility] 6Result Comment: [06/12/2015] high dose 7Admin Note: VIS GIVEN 8Admin Note: vis given Medications aspirin 325 mg oral delayed release tablet 325 mg, 1, tablet, By Mouth, Daily, # 30 tablet, Refills 0, Tot. Refills 0, Maintenance, 04/27/21 16:38:00 EDT, Route to Pharmacy Electronically, [facility]/pharmacy #[id number], Partial fill upon patient requestif the prescription is for a schedule II opioid kirit... Start Date: 04/27/21 Status: Ordered aspirin 325 mg oral delayed release tablet 325 mg, 1, tablet, By Mouth, Daily, # 90 tablet, Refills 3, Tot. Refills 3, Maintenance, 10/10/21 13:09:00 EST, Route to Pharmacy Electronically, [facility]/pharmacy #[id number], Partial fill upon patient requestif the prescription is for a schedule II opioid kirit... Start Date: 10/10/21 Status: Ordered atenolol 25 mg oral tablet 25 mg, 1, tablet, By Mouth, Daily, # 90 tablet, Refills 3, Tot. Refills 3, Maintenance, 12/10/21 15:42:00 EDT, Route to Pharmacy Electronically, [facility]/pharmacy #[id number], 162.56, cm, 10/10/21 12:54:00 EST,Height, 90.6, [...] 03/14/21 14:36:00 EDT, Route to Pharmacy Electronically, [facility]/pharmacy #[id number], 162.56, cm, 03/14/21 14:12:00 EDT, Height, 89.8, kg, 03/14/21 14:12... Start Date: 03/14/21 Stop Date: 05/09/21 Status: Ordered lithium 300 mg oral tablet 3 tablet = 900 mg, By Mouth, Daily at bedtime, # 270 tablet, 1 Refills, Maintenance, 09/04/21 17:14:00 EST, [facility]/pharmacy #[id number], 162.56, cm, 06/29/21 14:06:00 EDT, Height, 90.6, kg, 04/27/21 9:57:00 EDT, Dry Weight Start Date: 09/04/21 Status: Ordered metFORMIN 1000 mg oral tablet 1 tablet = 1,000 mg, By Mouth, Daily, # 90 tablet, 1 Refills, Maintenance, 09/21/21 9:52:00 EST, Tablet, [facility]/pharmacy #[id number], 162.56, cm, 09/19/21 13:07:00 EST, Height, 90.6, kg, 04/27/21 9:57:00 EDT,Dry Weight Start Date: 09/21/21 Status: Ordered nortriptyline 50 mg oral capsule 1, capsule, By Mouth, Daily at bedtime, # 90 capsule, Refills 1, Tot. Refills 1, Maintenance, 09/04/21 13:33:00 EST, Route to Pharmacy Electronically, [facility]/pharmacy #[id number], 162.56, cm, 06/29/21 14:06:00 EDT, Height, 90.6, kg, 04/27/21 9:57:00 EDT, Dry W... Start Date: 09/04/21 Status: Ordered omeprazole 20 mg oral enteric coated capsule 1 capsule = 20 mg, By Mouth, Daily, # 90 capsule, 3 Refills, Maintenance, 10/10/21 13:07:00 EST, ECCapsule, [facility]/pharmacy #[id number], 162.56, cm, 10/10/21 12:54:00 EST, Height, 90.6, kg, 04/27/21 9:57:00 EDT, Dry Weight Start Date: 10/10/21 Status: Ordered simvastatin 20 mg oral tablet 20 mg, 1, tablet, By Mouth, Daily at bedtime, # 90 tablet, Refills 3, Tot. Refills 3, Maintenance, 03/14/21 14:34:00 EDT, Route to Pharmacy Electronically, [facility]/pharmacy #[id number], 162.56, cm, 03/14/21 14:12:00 EDT, Height, 89.8, kg, 03/14/21 14:12:00 EDT,... Start Date: 03/14/21 Stop Date: 03/09/22 Status: Ordered Vitamin D3 1000 intl units oral capsule 1 capsule = 1,000 International_Units, By Mouth, Daily, # 30 capsule, 0 Refills, Maintenance, 01/12/18 13:40:46 EDT, Capsule Start Date: 01/12/18 Status: Ordered Xyzal 5 mg oral tablet 1 tablet = 5 mg, By Mouth, Daily in PM, # 30 tablet, 0 Refills, Maintenance, 09/19/21 12:52:00 EST,Tablet, [facility]/pharmacy #[id number], Partial fill upon patient request if the prescription is for a scheduleII opioid drug., 1 tablet By Mouth Daily in PM, 162... Start Date: 09/19/21 Status: Ordered Problem List Condition Effective Dates Status Health Status Inform ant Bipolar disorder(Confirmed) Active Breast cancer, Right breast cancer, T1b N0, ER positive, [place] positive, HER-2/mickey negative, diagnosed in 2008. Left [...]
--- OUTSIDE RECORDS SUMMARY | 2023-12-29 20:58 | XMS_ITS | Continuity of Care Document ---
Author Organization [facility] Address [address] [place] [address]- Care Team Providers Care Medical Staff Services Manager Name Role Phone Katina Zuniga MD Primary Care Physician Encounter [facility] Date(s): 08/21/21 - 09/26/[address] [address] Attending Physician: Katina Zuniga MD Admitting Physician: [...] 8 11/19/12 Given 1Result Comment: Done at [facility] 2Result Comment: Done at [facility] 3Location History: [facility] 4Result Comment: [07/22/2017] [facility] [id number] 5Location History: [facility] 6Result Comment: [06/12/2015] high dose 7Admin Note: VIS GIVEN 8Admin Note: vis given Medications aspirin 325 mg oral delayed release tablet 325 mg, 1, tablet, By Mouth, Daily, # 30 tablet, Refills 0, Tot. Refills 0, Maintenance, 04/27/21 16:38:00 EDT, Route to Pharmacy Electronically, [facility]/pharmacy #[id number], Partial fill upon patient requestif the [...] 12/15/20 15:42:00 EDT, Route to Pharmacy Electronically, [facility]/pharmacy #[id number], 162.56, cm, 12/15/20 15:05:00 EDT,Height, 91, kg, 12/13/20 6:45:00 EDT, Dry Weight Start Date: 12/15/20 Stop Date: 12/10/21 Status: Ordered Diflucan 150 mg oral tablet 1 tablet = 150 mg, By Mouth, Once, # 1 tablet, 1 Refills, Soft Stop, 09/19/21 12:53:00 EST, Tablet,[facility]/pharmacy #[id number], Partial fill upon patient request if the prescription is for a schedule II opioid drug., 162.56, cm, 09/19/21 12:45:00 EST, Height,... Start Date: 09/19/21 Status: Ordered freestyle karsten sensors 14 day [...] 03/14/21 14:36:00 EDT, Route to Pharmacy Electronically, [facility]/pharmacy #[id number], 162.56, cm, 03/14/21 14:12:00 EDT, Height, 89.8, kg, 03/14/21 14:12... Start Date: 03/14/21 Stop Date: 05/09/21 Status: Ordered lithium 300 mg oral tablet 3 tablet = 900 mg, By Mouth, Daily at bedtime, # 270 tablet, 1 Refills, Maintenance, 09/04/21 17:14:00 EST, [facility]/pharmacy #[id number], 162.56, cm, 06/29/21 14:06:00 EDT, Height, 90.6, kg, 04/27/21 9:57:00 EDT, Dry Weight Start Date: 09/04/21 Status: Ordered Melatonin 5 mg oral tablet 1 tablet = 5 mg, By Mouth, Daily at bedtime, PRN for insomnia, for 14 days, # 14 tablet, 0 Refills,Acute 10/05/21 13:23:00 EST, 09/21/21 13:23:00 EST, Tablet, [facility]/pharmacy #[id number], Partial fill upon patient request if the prescription is for a schedule... Start Date: 09/21/21 Stop Date: 10/05/21 Status: Ordered metFORMIN 1000 mg oral tablet 1 tablet = 1,000 mg, By Mouth, Daily, # 90 tablet, 1 Refills, Maintenance, 09/21/21 9:52:00 EST, Tablet, [facility]/pharmacy #[id number], 162.56, cm, 09/19/21 13:07:00 EST, Height, 90.6, kg, 04/27/21 9:57:00 EDT,Dry Weight Start Date: 09/21/21 Status: Ordered nortriptyline 50 mg oral capsule 1, capsule, By Mouth, Daily at bedtime, # 90 capsule, Refills 1, Tot. Refills 1, Maintenance, 09/04/21 13:33:00 EST, Route to Pharmacy Electronically, [facility]/pharmacy #[id number], 162.56, cm, 06/29/21 14:06:00 EDT, Height, 90.6, kg, 04/27/21 9:57:00 EDT, Dry W... Start Date: 09/04/21 Status: Ordered omeprazole 20 mg oral enteric coated capsule 1 capsule = 20 mg, By Mouth, Daily, # 90 capsule, 3 Refills, Maintenance, 09/05/20 14:34:00 EST, ECCapsule, [facility]/pharmacy #[id number], 160, cm, 09/05/20 14:19:00 EST, Height, 94.3, kg, 03/02/19 15:45:00 EDT, Dry Weight Start Date: 09/05/20 Status: Ordered simvastatin 20 mg oral tablet 20 mg, 1, tablet, By Mouth, Daily at bedtime, # 90 tablet, Refills 3, Tot. Refills 3, Maintenance, 03/14/21 14:34:00 EDT, Route to Pharmacy Electronically, [facility]/pharmacy #[id number], 162.56, cm, 03/14/21 14:12:00 EDT, Height, [...] tablet, 0 Refills, Maintenance, 09/19/21 12:52:00 EST,Tablet, [facility]/pharmacy #[id number], Partial fill upon patient request if the prescription is for a scheduleII opioid drug., 1 tablet By Mouth Daily in PM, 162... Start Date: 09/19/21 Status: Ordered Problem List Condition Effective Dates Status Health Status Inform ant Bipolar disorder(Confirmed) Active Breast cancer, Right breast cancer, T1b N0, ER positive, [place] positive, HER-2/mickey negative, diagnosed in 2008. Left [...]
--- OUTSIDE RECORDS SUMMARY | 2023-12-29 20:58 | XMS_ITS | Continuity of Care Document ---
Author Organization [facility] Address [address] [place] [address]- Care Team Providers Care Electric Meter Inspector Name Role Phone Katina Zuniga MD Primary Care Physician Encounter [facility] Date(s): 09/03/21 - 12/25/[address] [address]- Discharge Disposition: A-D/C Home Attending Physician: Katina Zuniga MD Admitting Physician: [...] [facility] 3Location History: [facility] 4Result Comment: [07/22/2017] [facility] [id number] [facility] 6Result Comment: [06/12/2015] high dose 7Admin Note: VIS GIVEN 8Admin Note: vis given Medications acetaminophen 325 mg oral tablet 650 mg, By Mouth, 4 times a day, PRN, Temperature Greater than 100.5, Refills 0, Maintenance, Pain , Mild, 11/27/21 8:34:00 EDT, Partial fill upon patient request if the prescription is for a schedule II opioid drug. Start Date: 11/27/21 Status: Ordered amLODIPine 10 mg oral tablet 10 mg, 1, tablet, By Mouth, Daily, Refills 0, Maintenance, 11/08/21 8:56:00 EDT, Partial fill upon patient request if the prescription is for a schedule II opioid drug. Start Date: 11/08/21 Status: Ordered aspirin 325 mg oral delayed release tablet 325 mg, 1, tablet, By Mouth, Daily, # 30 tablet, Refills 0, Tot. Refills 0, Maintenance, 04/27/21 16:38:00 EDT, Route to Pharmacy Electronically, [facility]/pharmacy #[id number], Partial fill upon patient requestif the prescription is for a schedule II opioid kirit... Start Date: 04/27/21 Status: Ordered bisacodyl 10 mg rectal suppository 1 supp = 10 mg, Rectally, Daily, PRN Constipation, 0 Refills, Maintenance, 11/27/21 8:34:00 EDT, Suppository, Partial fill upon patient request if the prescription is for a schedule II opioid drug. Start Date: 11/27/21 Status: Ordered docusate-senna 50 mg-8.6 mg oral capsule 2 capsule, By Mouth, Daily in PM, PRN Constipation, # 30 capsule, 0 Refills, Maintenance, 11/27/21 8:34:00 EDT, Capsule, Partial fill upon patient request if the prescription is for a schedule II opioid drug. Start Date: 11/27/21 Status: Ordered freestyle karsten sensors 14 day [...] Date: 09/21/21 Stop Date: 01/19/22 Status: Ordered melatonin 3 mg oral tablet = 6 mg, By Mouth, Daily at bedtime, 0 Refills, Maintenance, 11/27/21 8:34:00 EDT, Tablet, Partial fill upon patient request if the prescription is for a schedule II opioid drug. Start Date: 11/27/21 Status: Ordered metFORMIN 500 mg oral tablet, extended release 1 tablet = 500 mg, By Mouth, Daily, # 30 tablet, 0 Refills, Maintenance, 11/27/21 8:33:00 EDT, ER Tablet, Partial fill upon patient request if the prescription is for a schedule II opioid drug. Start Date: 11/27/21 Status: Ordered MiraLax Powder 1 pack/packet = 17 Gm, By Mouth, Daily, Hold for diarrhea, 0 Refills, Maintenance, 11/27/21 8:34:00EDT, Powder, Partial fill upon patient request if the prescription is for a schedule II opioid drug. Start Date: 11/27/21 Status: Ordered nortriptyline 25 mg oral capsule 25 mg, 1, capsule, By Mouth, Daily at bedtime, Refills 0, Maintenance, 11/27/21 8:34:00 EDT, Partial fill upon patient request if the prescription is for a schedule II opioid drug. Start Date: 11/27/21 Status: Ordered omeprazole 20 mg oral enteric coated capsule 1 capsule = 20 mg, By Mouth, Daily, # 90 capsule, 3 Refills, Maintenance, 10/10/21 13:07:00 EST, ECCapsule, [facility]/pharmacy #[id number], 162.56, cm, 10/10/21 12:54:00 EST, Height, 90.6, kg, 04/27/21 9:57:00 EDT, Dry Weight Start Date: 10/10/21 Status: Ordered simvastatin 20 mg oral tablet 20 mg, 1, tablet, By Mouth, Daily at bedtime, # 90 tablet, Refills 3, Tot. Refills 3, Maintenance, 03/14/21 14:34:00 EDT, Route to Pharmacy Electronically, [facility]/pharmacy #[id number], 162.56, cm, 03/14/21 14:12:00 [...] Right breast cancer, T1b N0, ER positive, [place] positive, HER-2/mickey negative, diagnosed in 2008. 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
--- OUTSIDE RECORDS SUMMARY | 2023-12-29 20:58 | XMS_ITS | Continuity of Care Document ---
Author Organization [facility] Address [address] [place] [address]- Care Team Providers Care Clinical Informatics Educator Name Role Phone Katina Zuniga MD Primary Care Physician [facility]counter [facility] Date(s): 10/19/21 - 11/18/21 [facility] [address] [place], [place] [address] Allergies, Adverse Reactions, Alerts No Known Allergies [...] 8 11/19/12 Given 1Result Comment: Done at [facility] 2Result Comment: Done at [facility] 3Location History: [facility] 4Result Comment: [07/22/2017] [facility] [id number] [facility] 6Result Comment: [06/12/2015] high dose 7Admin Note: VIS GIVEN 8Admin Note: vis given Medications amLODIPine 10 mg oral tablet 10 mg, [...] 04/27/21 16:38:00 EDT, Route to Pharmacy Electronically, [facility]/pharmacy #[id number], Partial fill upon patient requestif the prescription is for a schedule II opioid kirit... Start Date: 04/27/21 Status: Ordered atenolol 25 mg oral tablet 25 mg, 1, tablet, By Mouth, Daily, # 90 tablet, Refills 3, Tot. Refills 3, Maintenance, 12/10/21 15:42:00 EDT, Route to Pharmacy Electronically, [facility]/pharmacy #[id number], 162.56, cm, 10/10/21 12:54:00 EST,Height, 90.6, [...] 03/14/21 14:36:00 EDT, Route to Pharmacy Electronically, [facility]/pharmacy #[id number], 162.56, cm, 03/14/21 14:12:00 EDT, Height, 89.8, kg, 03/14/21 14:12... Start Date: 03/14/21 Stop Date: 05/09/21 Status: Ordered levocetirizine 5 mg oral tablet 1 tablet, By Mouth, Daily in PM, # 30 tablet, 10 Refills, [facility] STORE [id number], 30, TAKE 1 TABLET BY MOUTH EVERY EVENING, 162.56, cm, 10/10/21 13:15:00 EST, Height, 90.6, kg, 04/27/21 9:57:00 EDT, Dry Weight Start Date: 10/16/21 Status: Ordered lithium 300 mg oral tablet 3 tablet = 900 mg, By Mouth, Daily at bedtime, # 270 tablet, 1 Refills, Maintenance, 09/04/21 17:14:00 EST, [facility]/pharmacy #[id number], 162.56, cm, 06/29/21 14:06:00 EDT, Height, 90.6, kg, 04/27/21 9:57:00 EDT, Dry Weight Start Date: 09/04/21 Status: Ordered metFORMIN 1000 mg oral tablet 1 tablet = 1,000 mg, By Mouth, Daily, # 90 tablet, 1 Refills, Maintenance, 09/21/21 9:52:00 EST, Tablet, [facility]/pharmacy #[id number], 162.56, cm, 09/19/21 13:07:00 EST, Height, 90.6, kg, 04/27/21 9:57:00 EDT,Dry Weight Start Date: 09/21/21 Status: Ordered nortriptyline 50 mg oral capsule 1, capsule, By Mouth, Daily at bedtime, # 90 capsule, Refills 1, Tot. Refills 1, Maintenance, 09/04/21 13:33:00 EST, Route to Pharmacy Electronically, [facility]/pharmacy #[id number], 162.56, cm, 06/29/21 14:06:00 EDT, Height, 90.6, kg, 04/27/21 9:57:00 EDT, Dry W... Start Date: 09/04/21 Status: Ordered omeprazole 20 mg oral enteric coated capsule 1 capsule = 20 mg, By Mouth, Daily, # 90 capsule, 3 Refills, Maintenance, 10/10/21 13:07:00 EST, ECCapsule, [facility]/pharmacy #[id number], 162.56, cm, 10/10/21 12:54:00 EST, Height, 90.6, kg, 04/27/21 9:57:00 EDT, Dry Weight Start Date: 10/10/21 Status: Ordered simvastatin 20 mg oral tablet 20 mg, 1, tablet, By Mouth, Daily at bedtime, # 90 tablet, Refills 3, Tot. Refills 3, Maintenance, 03/14/21 14:34:00 EDT, Route to Pharmacy Electronically, [facility]/pharmacy #[id number], 162.56, cm, 03/14/21 14:12:00 [...] Right breast cancer, T1b N0, ER positive, [place] positive, HER-2/mickey negative, diagnosed in 2008. 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
--- OUTSIDE RECORDS SUMMARY | 2023-12-29 20:58 | XMS_ITS | Continuity of Care Document ---
Author Organization [facility] Address [address] [place] [address]- Care Team Providers Care Examiner Rating Clerk Name Role Phone Katina Zuniga MD Primary Care Physician Encounter [facility] Date(s): 02/04/22 - 02/11/22 [facility] [address] [place], [place] [address] Encounter Diagnosis Leg swelling(Discharge Diagnosis) - 02/04/22 Hypertension(Discharge Diagnosis) - 02/04/22 Bipolar disorder(Discharge Diagnosis) - 02/04/22 Diabetes(Discharge Diagnosis) - 02/04/22 Attending Physician: Katina Zuniga MD Allergies, Adverse Reactions, [...] 8 11/19/12 Given 1Result Comment: Done at [facility] 2Result Comment: Done at [facility] 3Location History: [facility] 4Result Comment: [07/22/2017] [facility] [id number] [facility] 6Result Comment: [06/12/2015] high dose 7Admin Note: VIS GIVEN 8Admin Note: vis given Medications amLODIPine 10 mg oral tablet 10 mg, 1, tablet, By Mouth, Daily, # 90 tablet, Refills 2, Tot. Refills 2, Maintenance, 01/03/22 11:39:00 EDT, Route to Pharmacy Electronically, [facility]/pharmacy #[id number], Partial fill upon patient request if the prescription is for a schedule II opioid drug... Start Date: 01/03/22 Status: Ordered aspirin 325 mg oral delayed release tablet 325 mg, 1, tablet, By Mouth, Daily, # 90 tablet, Refills 2, Tot. Refills 2, Maintenance, 01/03/22 11:36:00 EDT, Route to Pharmacy Electronically, [facility]/pharmacy #[id number], Partial fill upon patient requestif the prescription is for a schedule II opioid kirit... Start Date: 01/03/22 Status: Ordered freestyle karsten sensors 14 day [...] Date: 09/21/21 Stop Date: 01/19/22 Status: Ordered lamotrigine 25 mg oral tablet 50 mg, 2, tablet, By Mouth, Daily, TAKE 2 TABLET BY MOUTH EVERY DAY, # 180 tablet, Refills 2, Tot. Refills 2, Maintenance, 01/08/22 15:28:00 EDT, Route to Pharmacy Electronically, [facility]/pharmacy #[id number],dose change, 162.56, cm, 01/03/22 11:11:00 EDT, Hei... Start Date: 01/08/22 Status: Ordered lanolin topical - ointment 1 application, Topically, 3 times a day, PRN as needed for dry skin, # 113 Gm, 0 Refills, Maintenance, 02/04/22 8:30:00 EDT, Ointment, [facility]/pharmacy #[id number], Partial fill upon patient request if the prescription is for a schedule II opioid drug., 1 appli... Start Date: 02/04/22 Status: Ordered metFORMIN 500 mg oral tablet, extended release 1 tablet = 500 mg, By Mouth, Daily, # 90 tablet, 1 Refills, Maintenance, 01/03/22 11:36:00 EDT, ER Tablet, [facility]/pharmacy #[id number], Partial fill upon patient request if the prescription is for a schedule II opioid drug., 162.56, cm, 01/03/22 11:11:00 EDT,... Start Date: 01/03/22 Status: Ordered nortriptyline 25 mg oral capsule 25 mg, 1, capsule, By Mouth, Daily at bedtime, # 90 capsule, Refills 2, Tot. Refills 2, Maintenance, 01/03/22 11:39:00 EDT, Route to Pharmacy Electronically, [facility]/pharmacy #[id number], Partial fill upon patient request if the prescription is for a schedule I... Start Date: 01/03/22 Status: Ordered omeprazole 20 mg oral enteric coated capsule 1 capsule = 20 mg, By Mouth, Daily, # 90 capsule, 3 Refills, Maintenance, 10/10/21 13:07:00 EST, ECCapsule, [facility]/pharmacy #[id number], 162.56, cm, 10/10/21 12:54:00 EST, Height, 90.6, kg, 04/27/21 9:57:00 EDT, Dry Weight Start Date: 10/10/21 Status: Ordered simvastatin 20 mg oral tablet 20 mg, 1, tablet, By Mouth, Daily at bedtime, # 90 tablet, Refills 3, Tot. Refills 3, Maintenance, 01/03/22 11:37:00 EDT, Route to Pharmacy Electronically, [facility]/pharmacy #[id number], 162.56, cm, 01/03/22 11:11:00 EDT, Height, 78.4, kg, 11/16/21 22:27:00 EDT,... Start Date: 01/03/22 Stop Date: 12/29/22 Status: Ordered torsemide 20 mg oral tablet 1 tablet = 20 mg, By Mouth, Daily, PRN leg swelling, # 30 tablet, 2 Refills, Maintenance, 02/04/22 8:25:00 EDT, Tablet, [id number], replaces furosemide, 162.56, cm, 02/04/22 8:19:00 EDT, Height, 78.4, kg, 11/16/21 22:27:00 EDT, Dry Weight Start Date: 02/04/22 Status: Ordered Vitamin D3 1000 intl units oral capsule 1 capsule = 1,000 International_Units, By Mouth, Daily, # 90 capsule, 2 Refills, Maintenance, 01/03/22 11:38:00 EDT, Capsule, [id number], 162.56, cm, 01/03/22 11:11:00 EDT, Height, 78.4, kg, 11/16/21 22:27:00 EDT, Dry Weight Start Date: 01/03/22 Status: Ordered Walker See Instructions, # 1 each, Refills 0, Tot. Refills 0, Maintenance, Ht: 162.56cm Wt: 83.1kg DX: osteoarthritis M19.90 Length of Need: x99, 01/28/22 12:10:00 EDT, Supply Start Date: 01/28/22 Status: Ordered Problem List Condition Effective Dates Status Health Status Inform ant Bipolar disorder(Confirmed) Active Depression(Confirmed) Active Diabetes(Confirmed) Active Esophageal reflux (GERD)(Confirmed) Active Fall(Confirmed) Active Hypertension(Confirmed) Active Obese class I(Confirmed) Active Obesity(Confirmed) Active Osteopenia with high risk of fracture(Confirmed) Active pTis: Ductal carcinoma in si tu (breast)(Confirmed) 09/25/08 Active Pure hypercholesterolemia(Confirmed) Active Leg swelling(Confirmed) Active TIA (transient ischemic attack)(Confirmed) Active Trauma(Confirmed) Active Tremors of nervous system(Confirmed) Active Urinary urgency(Confirmed) Active Wheezing(Confirmed) Active Diagnosis Diagnosis Type Effective Dates Health Status Clinical Service Informant Diabetes Discharge Diagnosis 02/04/22 Bipolar disorder Discharge Diagnosis 02/04/22 Hypertension Discharge Diagnosis 02/04/22 Leg swelling Discharge Diagnosis 02/04/22 Vital Signs Most recent to oldest [Reference Range]: 1 2 Height 162.56 cm (02/04/22 8:37 AM) 162.56 cm (02/04/22 8:19 AM) Weight 82.6 kg (02/04/22 8:19 AM) Oxygen Saturation [94-100 %] 95 % (02/04/22 8:19 AM) Pulse Rate [55-90 bpm] 94 bpm *H* (02/04/22 8:19 AM) Body Mass Index [18.5-24.99] 31.26 *>HHI* (02/04/22 8:19 AM) Blood Pressure [90-138/55-84 mm Hg] 126/ 78mm Hg (02/04/22 8:37 AM) 142/78mm Hg *H* (02/04/22 8:19 AM) Respiratory Rate [16-30 br/min] 18 br/mi n (02/04/22 8:19 AM) Temperature [96.8-100.4 DegF] 99.0 DegF (02/04/22 8:19 AM) Mode of Delivery (Oxygen) Room air (02/04/22 8:19 AM) Blood pressure sites Arm, left (02/04/22 8:19 AM) Temperature Route Temporal (02/04/22 8:19 AM) Weight Obtained Via Standing scale (02/04/22 8:19 AM) Social History Social History Type Response Smoking Status Former smoker, quit more than 30 days ago entered on: 11/16/21 Sex
--- OUTSIDE RECORDS SUMMARY | 2023-12-29 20:58 | XMS_ITS | Continuity of Care Document ---
Author Organization [facility] Address [address] [place] [address]- Care Team Providers Care Restaurant General Manager Name Role Phone Katina Zuniga MD Primary Care Physician [phone] Encounter [facility] Date(s): 03/20/22 - 04/19/22 [facility] [address] [place], [place] [address] Allergies, Adverse Reactions, Alerts No Known [...] 8 11/19/12 Given 1Result Comment: Done at [place] 2Result Comment: Done at [facility] 3Location History: [facility] 4Result Comment: [07/22/2017] [facility] [id number] 5[facility] 6Result Comment: [06/12/2015] high [...] 01/03/22 11:36:00 EDT, Route to Pharmacy Electronically, [facility]/pharmacy #[id number], Partial fill upon patient requestif the prescription is for a schedule II opioid kirit... Start Date: 01/03/22 Status: Ordered divalproex sodium 500 mg oral enteric coated tablet = 500 mg, By Mouth, 2 times a day, # 60 tablet, 2 Refills, Maintenance, 04/12/22 15:12:00 EDT, Tablet, [facility]/pharmacy #[id number], Partial fill upon patient [...] 0 Refills, Maintenance, 02/04/22 8:30:00 EDT, Ointment, [facility]/pharmacy #[id number], Partial fill upon patient request if the [...] 3 Refills, Maintenance, 10/10/21 13:07:00 EST, [id number] 162.[facility], cm, 10/10/21 12:54:00 EST, Height, 90.6, kg, 04/27/21 9:57:00 EDT, Dry Weight Start Date: 10/10/21 Status: Ordered simvastatin 20 mg oral tablet 20 mg, 1, tablet, By Mouth, Daily at bedtime, # 90 tablet, Refills 3, Tot. Refills 3, Maintenance, 01/03/22 11:37:00 EDT, [id number] 162.56, cm, 01/03/22 11:11:00 EDT, Height, 78.4, kg, 11/16/21 22:27:00 EDT,... Start Date: 01/03/22 Stop Date: 12/29/22 Status: Ordered torsemide 20 mg oral tablet 1 tablet, By Mouth, Daily, PRN NEEDED FOR LEG SWELLING, # 90 tablet, 1 Refills, [facility] STORE [id number],168, cm, 04/02/22 15:54:00 EDT, Height, 74.1, kg, 03/30/22 4:57:00 EDT, Dry Weight Start Date: 04/05/22 Status: Ordered Vitamin D3 1000 intl units oral capsule 1 capsule = 1,000 International_Units, By Mouth, Daily, # 90 capsule, 2 Refills, Maintenance, 01/03/22 11:38:00 EDT, [id number] 162.56, cm, 01/03/22 11:11:00 EDT, Height, [...] Maintenance,04/15/22 12:05:00 EDT, Route to Pharmacy Electronically, [facility]/pharmacy #[id number], let us know if not covered by [...] Team Personnel Name: Katina Zuniga MD Address: [address] [place] [address]
--- OUTSIDE RECORDS SUMMARY | 2023-12-29 20:59 | XMS_ITS | Continuity of Care Document ---
Author Organization [facility] Address [address] [place] [address]- Care Team Providers Care Clean Room Operator Name Role Phone Katina Zuniga MD Primary Care Physician [phone] Encounter [facility] Date(s): 04/08/22 - 05/08/22 [facility] [address] [place], [place] [address] Allergies, Adverse Reactions, Alerts No [...] 8 11/19/12 Given 1Result Comment: Done at [facility] 2Result Comment: Done at [facility] 3Location History: [facility] 4Result Comment: [07/22/2017] [facility] [id number] 5[facility] 6Result Comment: [06/12/2015] high [...] 01/03/22 11:36:00 EDT, Route to Pharmacy Electronically, [facility]/pharmacy #[id number], Partial fill upon patient requestif the prescription is for a schedule II opioid kirit... Start Date: 01/03/22 Status: Ordered divalproex sodium 500 mg oral enteric coated tablet = 500 mg, By Mouth, 2 times a day, # 60 tablet, 2 Refills, Maintenance, 04/12/22 15:12:00 EDT, Tablet, [facility]/pharmacy #[id number], Partial fill upon patient request [...] 0 Refills, Maintenance, 02/04/22 8:30:00 EDT, Ointment, [facility]/pharmacy #[id number], Partial fill upon patient request if the [...] Refills, Maintenance, 10/10/21 13:07:00 EST, [id number] 162.[facility], cm, 10/10/21 12:54:00 EST, Height, 90.6, kg, 04/27/21 9:57:00 EDT, Dry Weight Start Date: 10/10/21 Status: Ordered simvastatin 20 mg oral tablet 20 mg, 1, tablet, By Mouth, Daily at bedtime, # 90 tablet, Refills 3, Tot. Refills 3, Maintenance, 01/03/22 11:37:00 EDT, [id number] 162.56, cm, 01/03/22 11:11:00 EDT, Height, 78.4, kg, 11/16/21 22:27:00 EDT,... Start Date: 01/03/22 Stop Date: 12/29/22 Status: Ordered torsemide 20 mg oral tablet 1 tablet, By Mouth, Daily, PRN NEEDED FOR LEG SWELLING, # 90 tablet, 1 Refills, [facility] STORE [id number],168, cm, 04/02/22 15:54:00 EDT, Height, 74.1, kg, 03/30/22 4:57:00 EDT, Dry Weight Start Date: 04/05/22 Status: Ordered Vitamin D3 1000 intl units oral capsule 1 capsule = 1,000 International_Units, By Mouth, Daily, # 90 capsule, 2 Refills, Maintenance, 01/03/22 11:38:00 EDT, [id number] 162.56, cm, 01/03/22 11:11:00 EDT, [...] Maintenance,04/15/22 12:05:00 EDT, Route to Pharmacy Electronically, [facility]/pharmacy #[id number], let us know if not covered by [...] Team Personnel Name: Katina Zuniga MD Address: [address] [place] [address]
--- OUTSIDE RECORDS SUMMARY | 2023-12-29 20:59 | XMS_ITS | Continuity of Care Document ---
Author Organization [facility] Address [address] [place] [address]- Care Team Providers Care Morphologist Name Role Phone Katina Zuniga MD Primary Care Physician [facility]counter [facility] Date(s): 02/20/22 - 03/22/22 [facility] [address] [place], [place] [address] Allergies, Adverse Reactions, Alerts No Known [...] 8 11/19/12 Given 1Result Comment: Done at [facility] 2Result Comment: Done at [facility] 3Location History: [facility] 4Result Comment: [07/22/2017] [facility] [id number] 5[facility] 6Result Comment: [06/12/2015] high [...] 01/03/22 11:36:00 EDT, Route to Pharmacy Electronically, [facility]/pharmacy #[id number], Partial fill upon patient requestif the prescription [...] 01/08/22 15:28:00 EDT, Route to Pharmacy Electronically, [facility]/pharmacy #[id number],dose change, 162.56, cm, 01/03/22 11:11:00 EDT, Hei... Start Date: 01/08/22 Status: Ordered lanolin topical - ointment 1 application, Topically, 3 times a day, PRN as needed for dry skin, # 113 Gm, 0 Refills, Maintenance, 02/04/22 8:30:00 EDT, Ointment, [facility]/pharmacy #[id number], Partial fill upon patient request if the prescription is for a schedule II opioid drug., 1 appli... Start Date: 02/04/22 Status: Ordered metFORMIN 500 mg oral tablet, extended release 1 tablet = 500 mg, By Mouth, Daily, # 90 tablet, 1 Refills, Maintenance, 01/03/22 11:36:00 EDT, ER Tablet, [id number], Partial fill upon patient request if the prescription is for a schedule II opioid drug., 162.56, cm, 01/03/22 11:11:00 EDT,... Start Date: 01/03/22 Status: Ordered omeprazole 20 mg oral enteric coated capsule 1 capsule = 20 mg, By Mouth, Daily, # 90 capsule, 3 Refills, Maintenance, 10/10/21 13:07:00 EST, ECCapsule, [facility]/pharmacy #[id number], 162.56, cm, 10/10/21 12:54:00 EST, Height, 90.6, kg, 04/27/21 9:57:00 EDT, Dry Weight Start Date: 10/10/21 Status: Ordered simvastatin 20 mg oral tablet 20 mg, 1, tablet, By Mouth, Daily at bedtime, # 90 tablet, Refills 3, Tot. Refills 3, Maintenance, 01/03/22 11:37:00 EDT, Route to Pharmacy Electronically, [facility]/pharmacy #[id number], 162.56, cm, 01/03/22 11:11:00 EDT, Height, 78.4, kg, 11/16/21 22:27:00 EDT,... Start Date: 01/03/22 Stop Date: 12/29/22 Status: Ordered torsemide 20 mg oral tablet 1 tablet = 20 mg, By Mouth, Daily, PRN leg swelling, # 30 tablet, 2 Refills, Maintenance, 02/04/22 8:25:00 EDT, Tablet, [facility]/pharmacy #[id number], replaces furosemide, 162.56, cm, 02/04/22 8:19:00 EDT, Height, 78.4, kg, 11/16/21 22:27:00 EDT, Dry Weight Start Date: 02/04/22 Status: Ordered Vitamin D3 1000 intl units oral capsule 1 capsule = 1,000 International_Units, By Mouth, Daily, # 90 capsule, 2 Refills, Maintenance, 01/03/22 11:38:00 EDT, Capsule, [facility]/pharmacy #[id number], 162.56, cm, 01/03/22 11:11:00 EDT, [...]
--- OUTSIDE RECORDS SUMMARY | 2023-12-29 20:59 | XMS_ITS | Continuity of Care Document ---
Author Organization [facility] ter Address [address] [place] [address]- Care Team Providers Care Motor Lodge Clerk Name Role Phone Katina Zuniga MD Primary Care Physician Encounter [facility] ACCT R [id number] Date(s): 12/04/21 - 01/09/[address] [address] Attending Physician: Katina Zuniga MD [...] 8 11/19/12 Given 1Result Comment: Done at [facility] 2Result Comment: Done at [facility] 3Location History: [facility] 4Result Comment: [07/22/2017] [facility] [id number] 5[facility] 6Result Comment: [06/12/2015] high dose 7Admin Note: VIS GIVEN 8Admin Note: vis given Medications amLODIPine 10 mg oral tablet 10 mg, 1, tablet, By Mouth, Daily, # 90 tablet, Refills 2, Tot. Refills 2, Maintenance, 01/03/22 11:39:00 EDT, Route to Pharmacy Electronically, [facility]/pharmacy #[id number], Partial fill upon patient request if the prescription is for a schedule II opioid drug... Start Date: 01/03/22 Status: Ordered aspirin 325 mg oral delayed release tablet 325 mg, 1, tablet, By Mouth, Daily, # 90 tablet, Refills 2, Tot. Refills 2, Maintenance, 01/03/22 11:36:00 EDT, Route to Pharmacy Electronically, [facility]/pharmacy #[id number], Partial fill upon patient requestif the prescription is for a schedule II opioid kirit... Start Date: 01/03/22 Status: Ordered Diflucan 150 mg oral tablet 1 tablet = 150 mg, By Mouth, Every 48 hours, # 3 tablet, 0 Refills, Acute 02/02/22 11:35:00 EDT, 01/03/22 11:35:00 EDT, Tablet, [facility]/pharmacy #[id number], Partial fill upon patient request if the prescription is for a schedule II opioid drug., 162.56, cm, 05... Start Date: 01/03/22 Stop Date: 02/02/22 Status: Ordered freestyle karsten sensors 14 day freestyle karsten sensors 14 day, See Instructions, # 30 Unknown, Refills 11, Tot. Refills 11, Maintenance, use three times per day dx: E11.9, 10/27/19 13:58:00 EST, Compound, 160, cm, 10/27/19 13:44:00 EST, Height, 94.3, kg, 03/02/19 15:45:00 EDT, DPio.. Start Date: 10/27/19 Status: Ordered FREESTYLE KARSTEN [...] 01/08/22 15:28:00 EDT, Route to Pharmacy Electronically, [facility]/pharmacy #[id number],dose change, 162.56, cm, 01/03/22 11:11:00 EDT, Hei... Start Date: 01/08/22 Status: Ordered metFORMIN 500 mg oral tablet, extended release 1 tablet = 500 mg, By Mouth, Daily, # 90 tablet, 1 Refills, Maintenance, 01/03/22 11:36:00 EDT, ER Tablet, [facility]/pharmacy #[id number], Partial fill upon patient request if the prescription is for a schedule II opioid drug., 162.56, cm, 01/03/22 11:11:00 EDT,... Start Date: 01/03/22 Status: Ordered nortriptyline 25 mg oral capsule 25 mg, 1, capsule, By Mouth, Daily at bedtime, # 90 capsule, Refills 2, Tot. Refills 2, Maintenance, 01/03/22 11:39:00 EDT, Route to Pharmacy Electronically, [facility]/pharmacy #[id number], Partial fill upon patient request if the prescription is for a schedule I... Start Date: 01/03/22 Status: Ordered omeprazole 20 mg oral enteric coated capsule 1 capsule = 20 mg, By Mouth, Daily, # 90 capsule, 3 Refills, Maintenance, 10/10/21 13:07:00 EST, ECCapsule, [facility]/pharmacy #[id number], 162.56, cm, 10/10/21 12:54:00 EST, Height, 90.6, kg, 04/27/21 9:57:00 EDT, Dry Weight Start Date: 10/10/21 Status: Ordered simvastatin 20 mg oral tablet 20 mg, 1, tablet, By Mouth, Daily at bedtime, # 90 tablet, Refills 3, Tot. Refills 3, Maintenance, 01/03/22 11:37:00 EDT, Route to Pharmacy Electronically, [facility]/pharmacy #[id number], 162.56, cm, 01/03/22 11:11:00 EDT, Height, 78.4, kg, 11/16/21 22:27:00 EDT,... Start Date: 01/03/22 Stop Date: 12/29/22 Status: Ordered Vitamin D3 1000 intl units oral capsule 1 capsule = 1,000 International_Units, By Mouth, Daily, # 90 capsule, 2 Refills, Maintenance, 01/03/22 11:38:00 EDT, Capsule, [facility]/pharmacy #[id number], 162.56, cm, 01/03/22 11:11:00 EDT, Height, 78.4, kg, 11/16/21 22:27:00 EDT, Dry Weight Start Date: 01/03/22 Status: Ordered Problem List Condition Effective Dates [...]
--- OUTSIDE RECORDS SUMMARY | 2023-12-29 20:59 | XMS_ITS | Continuity of Care Document ---
Author Organization [facility] Address [address] [place] [address]- Care Team Providers Care Drafting Instructor Name Role Phone Katina Zuniga MD Primary Care Physician [facility]counter [facility] Date(s): 01/31/22 - 03/02/22 [facility] [address] [place], [place] [address] Allergies, Adverse Reactions, Alerts No Known [...] Given 1Result Comment: Done at [facility] 2Result Comment: Done at [facility] 3Location History: [facility] 4Result Comment: [07/22/2017] [facility] [id number] 5[facility] 6Result Comment: [06/12/2015] high dose 7Admin Note: VIS GIVEN 8Admin Note: vis given Medications amLODIPine 10 mg oral tablet 10 mg, 1, tablet, By Mouth, Daily, # 90 tablet, Refills 2, Tot. Refills 2, Maintenance, 01/03/22 11:39:00 EDT, Route to Pharmacy Electronically, [facility]/pharmacy #[id number], Partial fill upon patient request if the prescription is for a schedule II opioid drug... Start Date: 01/03/22 Status: Ordered aspirin 325 mg oral delayed release tablet 325 mg, 1, tablet, By Mouth, Daily, # 90 tablet, Refills 2, Tot. Refills 2, Maintenance, 01/03/22 11:36:00 EDT, [id number] Partial fill upon patient requestif the [...] 01/08/22 15:28:00 EDT, Route to Pharmacy Electronically, [facility]/pharmacy #[id number],dose change, 162.56, cm, 01/03/22 11:11:00 EDT, Hei... Start Date: 01/08/22 Status: Ordered lanolin topical - ointment 1 application, Topically, 3 times a day, PRN as needed for dry skin, # 113 Gm, 0 Refills, Maintenance, 02/04/22 8:30:00 EDT, Ointment, [facility]/pharmacy #[id number], Partial fill upon patient request if the prescription is for a schedule II opioid drug., 1 appli... Start Date: 02/04/22 Status: Ordered metFORMIN 500 mg oral tablet, extended release 1 tablet = 500 mg, By Mouth, Daily, # 90 tablet, 1 Refills, Maintenance, 01/03/22 11:36:00 EDT, ER Tablet, [facility]/pharmacy #[id number], Partial fill upon patient request if the prescription is for a schedule II opioid drug., 162.56, cm, 01/03/22 11:11:00 EDT,... Start Date: 01/03/22 Status: Ordered nortriptyline 25 mg oral capsule 25 mg, 1, capsule, By Mouth, Daily at bedtime, # 90 capsule, Refills 2, Tot. Refills 2, Maintenance, 01/03/22 11:39:00 EDT, Route to Pharmacy Electronically, [facility]/pharmacy #[id number], Partial fill upon patient request if the prescription is for a schedule I... Start Date: 01/03/22 Status: Ordered omeprazole 20 mg oral enteric coated capsule 1 capsule = 20 mg, By Mouth, Daily, # 90 capsule, 3 Refills, Maintenance, 10/10/21 13:07:00 EST, ECCapsule, [facility]/pharmacy #[id number], 162.56, cm, 10/10/21 12:54:00 EST, Height, 90.6, kg, 04/27/21 9:57:00 EDT, Dry Weight Start Date: 10/10/21 Status: Ordered simvastatin 20 mg oral tablet 20 mg, 1, tablet, By Mouth, Daily at bedtime, # 90 tablet, Refills 3, Tot. Refills 3, Maintenance, 01/03/22 11:37:00 EDT, Route to Pharmacy Electronically, [facility]/pharmacy #[id number], 162.56, cm, 01/03/22 11:11:00 EDT, Height, [...]
--- OUTSIDE RECORDS SUMMARY | 2023-12-29 20:59 | XMS_ITS | Continuity of Care Document ---
Author Organization [facility] Address [address] [place] [address]- Care Team Providers Care Network Systems Engineer Name Role Phone Katina Zuniga MD Primary Care Physician Encounter [facility] Date(s): 08/09/19 - 08/16/19 [facility] [address] [place] [address]- [facility] Attending Physician: Katina Zuniga MD Allergies, Adverse [...] [address] 2Result Comment: [07/22/2017] [facility][note 2] [id number] 3[facility] 4Result Comment: [06/12/2015] high [...] 12/01/18 15:56:18 EDT, Route to Pharmacy Electronically, [id number], [facility]/pharmacy #[id number] Start [...] 06/30/19 14:03:36 EST, Route to Pharmacy Electronically, [id number], [facility]/pharmacy #[id number] Start [...] 06/30/19 14:01:33 EST, Route to Pharmacy Electronically, [id number], [facility]/pharmacy #[id number] Start [...] Right breast cancer, T1b N0, ER positive, NC positive, HER-2/mickey negative, diagnosed in 2008. Left [...]
--- OUTSIDE RECORDS SUMMARY | 2023-12-29 20:59 | XMS_ITS | Continuity of Care Document ---
Author Organization [facility] Address [address] [place] [address]- Care Team Providers Care Cone Examiner Name Role Phone Katina Zuniga MD Primary Care Physician [place] [facility] Date(s): 11/14/21 - 12/14/[address] [address] Attending Physician: AdmMerlyn flannery Admitting Physician: AdmtrMerlyn Referring Physician: Admtr, Ar8 Allergies, Adverse Reactions, Alerts No Known Allergies [...] 8 11/19/12 Given 1Result Comment: Done at [facility] 2Result Comment: Done at [facility] 3Location History: [facility] 4Result Comment: [07/22/2017] [facility] [id number] 5[facility] 6Result Comment: [06/12/2015] high [...] 16:38:00 EDT, Route to Pharmacy Electronically, [facility]/pharmacy #[id number], Partial fill upon patient requestif the prescription [...] Refills, Maintenance, 10/10/21 13:07:00 EST, ECCapsule, [facility]/pharmacy #[id number], 162.56, cm, 10/10/21 12:54:00 EST, Height, 90.6, kg, 04/27/21 9:57:00 EDT, Dry Weight Start Date: 10/10/21 Status: Ordered simvastatin 20 mg oral tablet 20 mg, 1, tablet, By Mouth, Daily at bedtime, # 90 tablet, Refills 3, Tot. Refills 3, Maintenance, 03/14/21 14:34:00 EDT, Route to Pharmacy Electronically, [facility]/pharmacy #[id number], 162.56, cm, 03/14/21 14:12:00 EDT, Height, [...] Right breast cancer, T1b N0, ER positive, RI positive, HER-2/mickey negative, diagnosed in 2008. Left [...]
--- OUTSIDE RECORDS SUMMARY | 2023-12-29 20:59 | XMS_ITS | Continuity of Care Document ---
Author Organization [facility] Address [address] [place] [address]- Care Team Providers Care Extrusion Process Operator Name Role Phone Katina Zuniga MD Primary Care Physician Encounter [facility] Date(s): 06/13/22 - 07/13/22 [facility] [address] [place], [place] [address] Allergies, Adverse Reactions, Alerts No Known Allergies Immunizations Given and Recorded Vaccine Date Status Refusal Reason influenza virus vaccine, inactivated 1 06/07/22 Gi xi influenza virus vaccine, inactivated 2 06/08/18 Re corded influenza virus vaccine, inactivated 3 07/22/17 Gi xi influenza virus vaccine, inactivated 09/20/16 Ryan rded influenza virus vaccine, inactivated 07/06/14 Give n SARS-CoV-2 mRNA ([id number]) vax 02/24/22 Recorded SARS-CoV-2 (COVID-19) mRNA BNT-162b2 [...] tetanus/diphtheria/pertussis, acel(Tdap) 9 11/19/12 Given 1Result Comment: [facility] [id number] 2Location History: [address] 3Result Comment: [07/22/2017] [facility] [id number] 4Result Comment: Done at [facility] 5Result Comment: Done at [facility] 7Result Comment: [06/12/2015] high [...] mg oral delayed release tablet 81 mg, By Mouth, Daily, Refills 0, Maintenance, 07/02/22 12:06:00 EST, Partial fill upon patient request if the prescription is for a schedule II opioid drug. Start Date: 07/02/22 Status: Ordered divalproex sodium 500 mg oral enteric coated tablet 1 tablet = 500 mg, By Mouth, 2 times a day Start Date: 05/15/22 Status: Ordered Enoxaparin 0.3 mL = 30 mg, Subcutaneous Injection, Daily, 0 Refills, Maintenance, 07/02/22 12:06:00 EST, Injection, Partial fill upon patient request if the prescription is for a schedule II opioid drug. Start Date: 07/02/22 Status: Ordered freestyle kip sensors 14 day [...] Date: 09/21/21 Stop Date: 01/19/22 Status: Ordered Insulin Lispro 2-10 units, Subcutaneous Injection, 3 times a day before meals, << Sliding Scale Comments >> 150 - 199 2 units Call if less than 70 200 - 249 4 units 250 - 299 6 units 300 - 349 8 units 350 - 399 10 units Call if greater than 400 <<... Start Date: 07/02/22 Status: Ordered olanzapine 2.5 mg oral tablet 2.5 mg, 1, tablet, By Mouth, Every 6 hours, PRN, Refills 0, Maintenance, Agitation, 07/02/22 12:05:00 EST, Partial fill upon patient request if the prescription is for a schedule II opioid drug. Start Date: 07/02/22 Status: Ordered olanzapine 5 mg oral tablet 5 mg, 1, tablet, By Mouth, Daily at bedtime, Refills 0, Maintenance, 07/02/22 12:05:00 EST, Partialfill upon patient request if the prescription is for a schedule II opioid drug. Start Date: 07/02/22 Status: Ordered omeprazole 20 mg oral enteric coated capsule 1 capsule = 20 mg, By Mouth, Daily, # 90 capsule, 3 Refills, Maintenance, 10/10/21 13:07:00 EST, ECCapsule, [facility]/pharmacy #[id number], 162.56, cm, 10/10/21 12:54:00 EST, Height, 90.6, kg, 04/27/21 9:57:00 EDT, Dry Weight Start Date: 10/10/21 Status: Ordered simvastatin 20 mg oral tablet 20 mg, 1, tablet, By Mouth, Daily at bedtime, # 90 tablet, Refills 3, Tot. Refills 3, Maintenance, 01/03/22 11:37:00 EDT, [id number] 162.56, cm, 01/03/22 11:11:00 EDT, Height, 78.4, kg, 11/16/21 22:27:00 EDT,... Start Date: 01/03/22 Stop Date: 12/29/22 Status: Ordered torsemide 20 mg oral tablet 1 tablet, By Mouth, Daily, PRN NEEDED FOR LEG SWELLING, # 90 tablet, 1 Refills, [facility] 34915,168, cm, 04/02/22 15:54:00 EDT, Height, 74.1, kg, 03/30/22 4:57:00 EDT, Dry Weight Start Date: 04/05/22 Status: Ordered traZODone 50 mg oral tablet 50 mg, 1, tablet, By Mouth, Daily at bedtime, PRN, Refills 0, Maintenance, Sleep, 06/07/22 11:36:00EDT, Partial fill upon patient request if the prescription is for a schedule II opioid drug. Start Date: 06/07/22 Status: Ordered Walker See Instructions, # 1 [...] Active Fall Confirmed Active Hypertension Confirmed Active Obesity Confirmed Active Osteopenia with [...] Team Personnel Name: Katina Zuniga MD Position: [facility] Primary Care Physician Member Role: PCP Address: Address: [address] [place] [address]- Name: Mily Stein RN Position: [facility] RN Member Role: Primary Care Nurse Name: Geno Cifuentes RN Position: [facility] RN Member Role: Primary Care Nurse Name: Coleen Reese RN Position: [facility] RN Member Role: Primary Care Nurse Name: Rosa Agustin NP Position: [facility] Associate Professional Member Role: Primary Care Nurse Address: Address: [address] [place] [address]- Name: Steve Saravia RN Position: [facility] RN Member Role: Primary Care Nurse Name: Edna Tom RN Position: [facility] RN Member Role: Primary Care Nurse Name: Ella Garcia RN Position: [facility] RN Member Role: Primary Care Nurse Name: Cy Benjamin DO Position: [facility] Renal MD Member Role: Lifetime Consulting Physician Address: Address: [address] [place], [place] [address] [place] [place] [address]- Name: Migel Lopez RN Position: [facility] RN Member Role: Primary Care Nurse Name: Stacia Hernandez RN Position: [facility] RN Member Role: Primary Care Nurse Name: Lauren Lund RN Position: [facility] ED RN W/OE and Tasks Member Role: Primary Care Nurse Name: Marisol Grady RN Position: [facility] RN Member Role: Primary Care Nurse Name: Corinna Orozco RN Position: [facility] RN Member Role: Primary Care Nurse Name: Flory Fernandez RN Position: S RN Member Role: Primary Care Nurse Name: Paula Foss RN Position: S RN Member Role: Primary Care Nurse Address: Address: [address] [place] [address] Name: Arnol Travis RN Position: S RN Member Role: Primary Care Nurse Name: Hina Puckett Position: S RN Member Role: Primary Care Nurse Name: Nidia De Oliveira Position: S RN Member Role: Primary Care Nurse Care Team Related Persons Name: RAFAELA ANDREWS Address: home [address] [place] [address] Name: VALENTINA ARNOLD Address: home [address] [place] [address]
--- OUTSIDE RECORDS SUMMARY | 2023-12-29 20:59 | XMS_ITS | Continuity of Care Document ---
Author Organization [facility] Address [address] [place] [address]- Care Team Providers Care Radiologic Technology Teacher Name Role Phone Katina Zuniga MD Primary Care Physician Encounter [facility] ACCT R [id number] Date(s): 06/07/22 - 06/14/22 [facility] [address] [place], [place] [address] Attending Physician: Katina Zuniga MD Allergies, Adverse Reactions, Alerts No Known Allergies Immunizations Given and Recorded Vaccine Date Status Refusal Reason influenza virus vaccine, inactivated 1 06/07/22 Gi xi influenza virus vaccine, inactivated 2 06/08/18 Re corded influenza virus vaccine, inactivated 3 07/22/17 Gi xi influenza virus vaccine, inactivated 09/20/16 Ryan rded influenza virus vaccine, inactivated 07/06/14 Give n SARS-CoV-2 (COVID-19) mRNA BNT-162b2 vac 07/02/21 Recorded [...] tetanus/diphtheria/pertussis, acel(Tdap) 9 11/19/12 Given 1Result Comment: [facility] [id number] [phone] 2Location History: [address] 3Result Comment: [07/22/2017] [facility] [id number] 4Result Comment: Done at [facility] 5Result Comment: Done at [facility] 7Result Comment: [06/12/2015] high [...] 01/03/22 11:36:00 EDT, Route to Pharmacy Electronically, [facility]/pharmacy #[id number], Partial fill upon patient requestif the prescription is for a schedule II opioid kirit... Start Date: 01/03/22 Status: Ordered divalproex sodium 500 mg oral enteric coated tablet TAKE 1 TABLET BY MOUTH TWICE A DAY Start Date: 05/15/22 Status: Ordered freestyle karsten sensors 14 day [...] BY INSURANCE, Compound, 160, cm,... Start Date: 3/4/20 Status: Ordered Freestyle Lite Lancets See Instructions, [...] Status: Ordered lamotrigine 25 mg oral tablet TAKE 2 TABLETS BY MOUTH 2 TIMES A DAY FOR 30 DAYS Start Date: 05/15/22 Status: Ordered lanolin topical - ointment 1 application, Topically, 3 times a day, PRN as needed for dry skin, # 113 Gm, 0 Refills, Maintenance, 02/04/22 8:30:00 EDT, Ointment, [facility]/pharmacy #[id number], Partial fill upon patient request if the prescription is for a schedule II opioid drug., 1 appli... Start Date: 02/04/22 Status: Ordered MetFORMIN (Eqv-Glucophage XR) 500 mg oral tablet, extended release TAKE 1 TABLET BY MOUTH EVERY DAY Start Date: 03/29/22 Status: Ordered olanzapine 5 mg oral tablet 5 mg, 1, tablet, By Mouth, Daily, # 30 tablet, Refills 0, Maintenance, 06/07/22 11:39:00 EDT, Partial fill upon patient request if the prescription is for a schedule II opioid drug. Start Date: 06/07/22 Status: Ordered omeprazole 20 mg oral enteric coated capsule 1 capsule = 20 mg, By Mouth, Daily, # 90 capsule, 3 Refills, Maintenance, 10/10/21 13:07:00 EST, ECCapsule, [facility]/pharmacy #[id number], 162.56, cm, 10/10/21 12:54:00 EST, Height, 90.6, kg, 04/27/21 9:57:00 EDT, Dry Weight Start Date: 10/10/21 Status: Ordered simvastatin 20 mg oral tablet 20 mg, 1, tablet, By Mouth, Daily at bedtime, # 90 tablet, Refills 3, Tot. Refills 3, Maintenance, 01/03/22 11:37:00 EDT, [id number] 162.56, cm, 01/03/22 11:11:00 EDT, Height, 78.4, kg, 11/16/21 22:27:00 EDT,... Start Date: 01/03/22 Stop Date: 12/29/22 Status: Ordered torsemide 20 mg oral tablet 1 tablet, By Mouth, Daily, PRN NEEDED FOR LEG SWELLING, # 90 tablet, 1 Refills, [facility] 23141,168, cm, 04/02/22 15:54:00 EDT, Height, 74.1, kg, 03/30/22 4:57:00 EDT, Dry Weight Start Date: 04/05/22 Status: Ordered traZODone 50 mg oral tablet 50 mg, 1, tablet, By Mouth, Daily at bedtime, # 30 tablet, Refills 0, Maintenance, 06/07/22 11:36:00 EDT, Partial fill upon patient request if the prescription is for a schedule II opioid drug. Start Date: 06/07/22 Status: Ordered Vitamin D3 1000 intl units oral capsule 1 capsule = 1,000 International_Units, By Mouth, Daily, # 90 capsule, 2 Refills, Maintenance, 01/03/22 11:38:00 EDT, Capsule, [facility]/pharmacy #[id number], 162.56, cm, 01/03/22 11:11:00 EDT, [...] Venous insufficiency Confirmed Active Wheezing Confirmed Active Vital Signs Most recent to oldest [Reference Range]: 1 Height 168 cm (06/07/22 11:19 AM) Weight 78.3 kg (06/07/22 11:19 AM) Oxygen Saturation [94-100 %] 95 % (06/07/22 11:19 AM) Pulse Rate [55-90 bpm] 88 bpm (06/07/22 11:19 AM) Body Mass Index [18.5-24.99 kg/m2] 27.74 kg/m2 *H* (06/07/22 11:19 AM) Blood Pressure [90-138/55-84 mm Hg] 128/ 72mm Hg (06/07/22 11:19 AM) Temperature [96.8-100.4 DegF] 97.9 DegF (06/07/22 11:19 AM) Mode of Delivery (Oxygen) Room air (06/07/22 11:19 AM) Blood pressure sites Arm, left (06/07/22 11:19 AM) Temperature Route Temporal (06/07/22 11:19 AM) Weight Obtained Via Standing scale (06/07/22 11:19 AM) Social History Social History Type Response Smoking Status Former smoker, quit more than 30 days ago entered on: 11/16/21 Sex Patient Care team information Personnel Name: Katina Zuniga MD Address: Address: [address] [place] [address]
--- OUTSIDE RECORDS SUMMARY | 2023-12-29 20:59 | XMS_ITS | Continuity of Care Document ---
Author Organization [facility] Address [address] [place] [address]- Care Team Providers Care Identification Printing Machine Setter Name Role Phone Katina Zuniga MD Primary Care Physician [facility] Date[facility]): 01[facility]/22 - 02/07/22 [facility] [address] [place], [place] [address] Allergies, Adverse Reactions, Alerts [...] 8 11/19/12 Given 1Result Comment: Done at [facility] 2Result Comment: Done at [facility] 3Location History: [facility] 4Result Comment: [07/22/2017] [facility] [id number] 5[facility] 6Result Comment: [06/12/2015] high dose 7Admin Note: VIS GIVEN 8Admin Note: vis given Medications amLODIPine 10 mg oral tablet 10 mg, 1, tablet, By Mouth, Daily, # 90 tablet, Refills 2, Tot. Refills 2, Maintenance, 01/03/22 11:39:00 EDT, Route to Pharmacy Electronically, [facility]/pharmacy #[id number], Partial fill upon patient request if the prescription is for a schedule II opioid drug... Start Date: 01/03/22 Status: Ordered aspirin 325 mg oral delayed release tablet 325 mg, 1, tablet, By Mouth, Daily, # 90 tablet, Refills 2, Tot. Refills 2, Maintenance, 01/03/22 11:36:00 EDT, [id number] Partial fill upon patient requestif the [...] 01/08/22 15:28:00 EDT, Route to Pharmacy Electronically, [facility]/pharmacy #[id number],dose change, 162.56, cm, 01/03/22 11:11:00 EDT, Hei... Start Date: 01/08/22 Status: Ordered lanolin topical - ointment 1 application, Topically, 3 times a day, PRN as needed for dry skin, # 113 Gm, 0 Refills, Maintenance, 02/04/22 8:30:00 EDT, Ointment, [facility]/pharmacy #[id number], Partial fill upon patient request if the prescription is for a schedule II opioid drug., 1 appli... Start Date: 02/04/22 Status: Ordered metFORMIN 500 mg oral tablet, extended release 1 tablet = 500 mg, By Mouth, Daily, # 90 tablet, 1 Refills, Maintenance, 01/03/22 11:36:00 EDT, ER Tablet, [facility]/pharmacy #[id number], Partial fill upon patient request if the prescription is for a schedule II opioid drug., 162.56, cm, 01/03/22 11:11:00 EDT,... Start Date: 01/03/22 Status: Ordered nortriptyline 25 mg oral capsule 25 mg, 1, capsule, By Mouth, Daily at bedtime, # 90 capsule, Refills 2, Tot. Refills 2, Maintenance, 01/03/22 11:39:00 EDT, Route to Pharmacy Electronically, [facility]/pharmacy #[id number], Partial fill upon patient request if the prescription is for a schedule I... Start Date: 01/03/22 Status: Ordered omeprazole 20 mg oral enteric coated capsule 1 capsule = 20 mg, By Mouth, Daily, # 90 capsule, 3 Refills, Maintenance, 10/10/21 13:07:00 EST, ECCapsule, [facility]/pharmacy #[id number], 162.56, cm, 10/10/21 12:54:00 EST, Height, 90.6, kg, 04/27/21 9:57:00 EDT, Dry Weight Start Date: 10/10/21 Status: Ordered simvastatin 20 mg oral tablet 20 mg, 1, tablet, By Mouth, Daily at bedtime, # 90 tablet, Refills 3, Tot. Refills 3, Maintenance, 01/03/22 11:37:00 EDT, Route to Pharmacy Electronically, [facility]/pharmacy #[id number], 162.56, cm, 01/03/22 [...]
--- OUTSIDE RECORDS SUMMARY | 2023-12-29 20:59 | XMS_ITS | Continuity of Care Document ---
Author Organization [facility] Address [address] [place] [address]- Care Team Providers Care Engine Repairer Production Name Role Phone Katina Zuniga MD Primary Care Physician [facility] Date[facility]s): 01/11/20 - 01/18/20 [facility] [address] [place] [address]- [facility] Attending Physician: Katina Zuniga MD Allergies, [...] [address] 2Result Comment: [07/22/2017] [facility] [id number] 3[facility] 4Result Comment: [06/12/2015] high [...] 10/27/19 14:06:00 EST, [id number], cm, 10/27/19 13:44:00 EST, Height, 94.3, kg, 03/02/19 15:45:00 EDT, Dry Weight Start Date: 10/27/19 Stop Date: 10/21/20 Status: Ordered Calcium Carbonate By Mouth, 1000mg, 0 Refills, Maintenance, 01/12/18 13:45:02 EDT Start Date: 01/12/18 Status: Ordered doxycycline monohydrate 100 mg oral capsule 1 capsule = 100 mg, By Mouth, 2 times a day, for 14 days, # 28 capsule, 0 Refills, Acute 01/25/20 15:37:00 EDT, 01/11/20 15:37:00 EDT, Capsule, [facility]/pharmacy #[id number], 160, cm, 10/27/19 13:44:00 EST, Height, 94.3, kg, 03/02/19 15:45:00 EDT, Dry Weight Start Date: 01/11/20 Stop Date: 01/25/20 Status: Ordered Fosamax 70 mg oral tablet 1 tablet = 70 mg, By Mouth, Every week, # 4 tablet, 11 Refills, Maintenance, 09/20/19 16:46:00 EST,Tablet, [facility]/pharmacy #[id number], 160, cm, 03/26/19 13:55:00 EDT, Height, 94.3, kg, 03/02/19 15:45:00 EDT, Dry Weight Start Date: 09/20/19 Status: Ordered freestyle karsten sensors 14 day freestyle karsten sensors 14 day, See Instructions, # 30 Unknown, Refills 11, Tot. Refills 11, Maintenance, use three times per day dx: E11.9, 10/27/19 13:58:00 EST, Compound, 160, cm, 10/27/19 13:44:00 EST, Height, 94.3, kg, 03/02/19 15:45:00 EDT DPio.. Start Date: 10/27/19 Status: Ordered FREESTYLE [...] 06/30/19 14:03:36 EST, Route to Pharmacy Electronically, [id number], [facility]/pharmacy #[id number] Start Date: 06/30/19 Stop Date: 07/14/19 [...] 3 Refills, Maintenance, 10/27/19 13:59:00 EST, Tablet, [facility]/pharmacy #[id number], 160, cm, 10/27/19 13:44:00 EST, Height, 94.3, kg, 03/02/19 15:45:00 EDT, Dry Weight Start Date: 10/27/19 Status: Ordered mupirocin 2% topical ointment 1 application, Topically, 3 times a day, apply to leg wound, # 22 Gm, 3 Refills, Maintenance, 01/11/20 15:40:00 EDT, Ointment, [facility]/pharmacy #[id number], 1 application Topically 3 times a day,Instr:apply toleg wound, 160, cm, 10/27/19 13:44:00 EST, Height,... Start Date: 01/11/20 Status: Ordered nortriptyline 50 mg oral capsule 50 mg, 1, capsule, By Mouth, Daily at bedtime, # 90 capsule, Refills 1, Tot. Refills 1, Maintenance, 11/30/19 14:00:00 EDT, Route to Pharmacy Electronically, [facility]/pharmacy #[id number], 160, cm, 10/27/19 13:44:00 EST, Height, [...] 06/30/19 14:01:33 EST, Route to Pharmacy Electronically, [id number], [facility]/pharmacy #[id number] Start Date: 06/30/19 Stop Date: 06/24/20 [...]
--- OUTSIDE RECORDS SUMMARY | 2023-12-29 20:59 | XMS_ITS | Continuity of Care Document ---
Author Organization [facility] Address [address] [place] [address]- Care Team Providers Care Doughnut Glazier Name Role Phone Katina Zuniga MD Primary Care Physician Encounter [facility] Date(s): 08/10/21 - 08/17/21 [facility] [address] [place] [address]- Encounter Diagnosis Viral URI with cough(Discharge Diagnosis) - 08/10/21 Attending Physician: Katina Zuniga MD Allergies, Adverse [...] 8 11/19/12 Given 1Result Comment: Done at [facility] 2Result Comment: Done at [facility] 3Location History: [facility] 4Result Comment: [07/22/2017] [facility] [id number] 5[facility] 6Result Comment: [06/12/2015] high dose 7Admin Note: VIS GIVEN 8Admin Note: vis given Medications aspirin 325 mg oral delayed release tablet 325 mg, 1, tablet, By Mouth, Daily, # 30 tablet, Refills 0, Tot. Refills 0, Maintenance, 04/27/21 16:38:00 EDT, [id number] Partial fill upon patient requestif [...] 12/15/20 15:42:00 EDT, [id number] 162.56, cm, 12/15/20 15:05:00 EDT,Height, 91, [...] 03/14/21 14:36:00 EDT, Route to Pharmacy Electronically, [facility]/pharmacy #[id number], 162.56, cm, 03/14/21 14:12:00 EDT, Height, 89.8, kg, 03/14/21 14:12... Start Date: 03/14/21 Stop Date: 05/09/21 Status: Ordered lithium 300 mg oral tablet 3 tablet = 900 mg, By Mouth, Daily at bedtime, # 270 tablet, 2 Refills, Maintenance, 09/05/20 14:33:00 EST, [facility]/pharmacy #[id number], 160, cm, 09/05/20 14:19:00 EST, Height, 94.3, kg, 03/02/19 15:45:00 EDT, Dry Weight Start Date: 09/05/20 Status: Ordered metFORMIN 1000 mg oral tablet 1 tablet = 1,000 mg, By Mouth, Daily, # 90 tablet, 3 Refills, Maintenance, 12/15/20 15:41:00 EDT, Tablet, [facility]/pharmacy #[id number], 162.56, cm, 12/15/20 15:05:00 EDT, Height, 91, kg, 12/13/20 6:45:00 EDT, Dry Weight Start Date: 12/15/20 Status: Ordered nortriptyline 50 mg oral capsule 1, capsule, By Mouth, Daily at bedtime, # 90 capsule, Refills 3, Tot. Refills 3, Maintenance, 03/14/21 14:34:00 EDT, Route to Pharmacy Electronically, [facility]/pharmacy #[id number], 162.56, cm, 03/14/21 14:12:00 EDT, Height, 89.8, kg, 03/14/21 14:12:00 EDT, Dry... Start Date: 03/14/21 Status: Ordered omeprazole 20 mg oral enteric coated capsule 1 capsule = 20 mg, By Mouth, Daily, # 90 capsule, 3 Refills, Maintenance, 09/05/20 14:34:00 EST, ECCapsule, [facility]/pharmacy #[id number], 160, cm, 09/05/20 14:19:00 EST, Height, 94.3, kg, 03/02/19 15:45:00 EDT, Dry Weight Start Date: 09/05/20 Status: Ordered simvastatin 20 mg oral tablet 20 mg, 1, tablet, By Mouth, Daily at bedtime, # 90 tablet, Refills 3, Tot. Refills 3, Maintenance, 03/14/21 14:34:00 EDT, Route to Pharmacy Electronically, [facility]/pharmacy #[id number], 162.56, cm, 03/14/21 14:12:00 EDT, Height, [...] Diagnosis Diagnosis Type Effective Dates Health Status Cl inical Service Informant Viral URI with cough Discharge Diagnosis 08/10/21 Social History Social History Type Response Tobacco Other: 1 pack per da y for 40 years. Sex
--- OUTSIDE RECORDS SUMMARY | 2023-12-29 20:59 | XMS_ITS | Continuity of Care Document ---
Author Organization [facility] Address [address] [place] [address]- Care Team Providers Care Line Service Attendant Name Role Phone Nadia GUNDERSON, Katina Rosado Primary Care Physician [phone] Encounter [facility] Date(s): 08/09/21 - 09/08/21 [facility] [address] [place], [place] [address] Allergies, Adverse Reactions, Alerts No [...] 8 11/19/12 Given 1Result Comment: Done at [facility] 2Result Comment: Done at [facility] 3Location History: [facility] 4Result Comment: [07/22/2017] [facility] [id number] 5[facility] 6Result Comment: [06/12/2015] high dose 7Admin Note: VIS GIVEN 8Admin Note: vis given Medications aspirin 325 mg oral delayed release tablet 325 mg, 1, tablet, By Mouth, Daily, # 30 tablet, Refills 0, Tot. Refills 0, Maintenance, 04/27/21 16:38:00 EDT, Route to Pharmacy Electronically, [facility]/pharmacy #[id number], Partial fill upon patient requestif [...] 12/15/20 15:42:00 EDT, Route to Pharmacy Electronically, [facility]/pharmacy #[id number], 162.56, cm, 12/15/20 15:05:00 EDT,Height, [...] 03/14/21 14:36:00 EDT, Route to Pharmacy Electronically, [facility]/pharmacy #[id number], 162.56, cm, 03/14/21 14:12:00 EDT, Height, 89.8, kg, 03/14/21 14:12... Start Date: 03/14/21 Stop Date: 05/09/21 Status: Ordered lithium 300 mg oral tablet 3 tablet = 900 mg, By Mouth, Daily at bedtime, # 270 tablet, 1 Refills, Maintenance, 09/04/21 17:14:00 EST, [facility]/pharmacy #[id number], 162.56, cm, 06/29/21 14:06:00 EDT, Height, 90.6, kg, 04/27/21 9:57:00 EDT, Dry Weight Start Date: 09/04/21 Status: Ordered metFORMIN 1000 mg oral tablet 1 tablet = 1,000 mg, By Mouth, Daily, # 90 tablet, 3 Refills, Maintenance, 12/15/20 15:41:00 EDT, Tablet, [facility]/pharmacy #[id number], 162.56, cm, 12/15/20 15:05:00 EDT, Height, 91, kg, 12/13/20 6:45:00 EDT, Dry Weight Start Date: 12/15/20 Status: Ordered nortriptyline 50 mg oral capsule 1, capsule, By Mouth, Daily at bedtime, # 90 capsule, Refills 1, Tot. Refills 1, Maintenance, 09/04/21 13:33:00 EST, Route to Pharmacy Electronically, [facility]/pharmacy #[id number], 162.56, cm, 06/29/21 14:06:00 EDT, Height, 90.6, kg, 04/27/21 9:57:00 EDT, Dry W... Start Date: 09/04/21 Status: Ordered omeprazole 20 mg oral enteric coated capsule 1 capsule = 20 mg, By Mouth, Daily, # 90 capsule, 3 Refills, Maintenance, 09/05/20 14:34:00 EST, ECCapsule, [facility]/pharmacy #[id number], 160, cm, 09/05/20 14:19:00 EST, Height, 94.3, kg, 03/02/19 15:45:00 EDT, Dry Weight Start Date: 09/05/20 Status: Ordered simvastatin 20 mg oral tablet 20 mg, 1, tablet, By Mouth, Daily at bedtime, # 90 tablet, Refills 3, Tot. Refills 3, Maintenance, 03/14/21 14:34:00 EDT, Route to Pharmacy Electronically, [facility]/pharmacy #[id number], 162.56, cm, 03/14/21 14:12:00 EDT, [...] Right breast cancer, T1b N0, ER positive, ID positive, HER-2/mickey negative, diagnosed in 2008. Left [...]
--- OUTSIDE RECORDS SUMMARY | 2023-12-29 20:59 | XMS_ITS | Continuity of Care Document ---
Author Organization [facility] Address [address] [place] [address]- Care Team Providers Care Aquatics Coordinator Name Role Phone Katina Zuniga MD Primary Care Physician [facility] Date[facility]s): 11/02/21 - 12/02/21 [facility] [address] [place], [place] [address] Allergies, Adverse [...] 8 11/19/12 Given 1Result Comment: Done at [facility] 2Result Comment: Done at [facility] 3Location History: [facility] 4Result Comment: [07/22/2017] [facility] [id number] 5[facility] 6Result Comment: [06/12/2015] high [...] 04/27/21 16:38:00 EDT, Route to Pharmacy Electronically, [facility]/pharmacy #[id number], Partial fill upon patient requestif the prescription [...] Maintenance, 10/10/21 13:07:00 EST, ECCapsule, [facility]/pharmacy #[id number], 162.56, cm, 10/10/21 12:54:00 EST, Height, 90.6, kg, 04/27/21 9:57:00 EDT, Dry Weight Start Date: 10/10/21 Status: Ordered simvastatin 20 mg oral tablet 20 mg, 1, tablet, By Mouth, Daily at bedtime, # 90 tablet, Refills 3, Tot. Refills 3, Maintenance, 03/14/21 14:34:00 EDT, Route to Pharmacy Electronically, [facility]/pharmacy #[id number], 162.56, cm, 03/14/21 14:12:00 [...] Right breast cancer, T1b N0, ER positive, AL positive, HER-2/mickey negative, diagnosed in 2008. Left [...]
--- OUTSIDE RECORDS SUMMARY | 2023-12-29 20:59 | XMS_ITS | Continuity of Care Document ---
Author Organization [facility] Address [address] [place] [address]- Care Team Providers Care Call Or Contact Centre Manager Name Role Phone Katina Zuniga MD Primary Care Physician [phone] Encounter [facility] Date(s): 08/01/22 - 08/31/22 [facility] [address] [place], [place] [address] Attending Physician: Admalma delia, Merlyn Admitting Physician: Admtr, Merlyn Referring Physician: Admtr, Ar8 Allergies, Adverse Reactions, Alerts No Known Allergies Immunizations Given and Recorded Vaccine Date Status Refusal Reason influenza virus vaccine, inactivated 1 06/07/22 Gi xi influenza virus vaccine, inactivated 2 06/08/18 Re corded influenza virus vaccine, inactivated 3 07/22/17 Gi xi influenza virus vaccine, inactivated 09/20/16 Ryan rded influenza virus vaccine, inactivated 07/06/14 Give n SARS-CoV-2 mRNA ([id number]) vax 02/24/22 Recorded SARS-CoV-2 (COVID-19) mRNA BNT-162b2 [...] tetanus/diphtheria/pertussis, acel(Tdap) 9 11/19/12 Given 1Result Comment: [facility] [phone] 2Location History: [address] 3Result Comment: [07/22/2017] [facility] [id number] 4Result Comment: Done at [facility] 5Result Comment: Done at [facility] 7Result Comment: [06/12/2015] high [...] 08/29/22 14:10:00 EST, Route to Pharmacy Electronically, [facility]/pharmacy #[id number], Partial fill upon patient request [...] 08/29/22 9:05:00 EST, Route to Pharmacy Electronically, [facility]/pharmacy #[id number], Partial fill upon patient request ifthe [...] 3 Refills, Maintenance, 10/10/21 13:07:00 EST, E[facility]apsule, [id number], 162.56, cm, 10/10/21 12:54:00 EST, Height, [...] 01/03/22 11:37:00 EDT, Route to Pharmacy Electronically, [facility]/pharmacy #[id number], 162.56, cm, 01/03/22 11:11:00 EDT, Height, 78.4, kg, 11/16/21 22:27:00 EDT,... Start Date: 01/03/22 Stop Date: 12/29/22 Status: Ordered torsemide 20 mg oral tablet 1 tablet, By Mouth, Daily, PRN NEEDED FOR LEG SWELLING, # 90 tablet, 1 Refills, [facility] 87352,168, cm, 04/02/22 15:54:00 EDT, Height, 74.1, kg, [...] Refills, Maintenance, 08/01/22 11:33:00 EST, ER Tablet, [id number], Partial fill upon patient request if the [...] 30 days ago entered on: 11/16/21 Sex Note * Event Display: Laboratory Result Scanned Authored Date: * Event Display: EKG Non BH Authored Date: * Event Display: EKG Non BH Authored Date: * Event Display: EKG Non Authored Date: Patient Care team information Care Team Personnel Name: Katina Zuniga MD Position: [facility] Primary Care Physician Member Role: PCP Address: Address: [address] [place] [address] Name: Mily Stein RN Position: S RN Member Role: Primary Care Nurse Name: Geno Cifuentes RN Position: [facility] RN Member Role: Primary Care Nurse Name: Rosa Agustin NP Position: [facility] Associate Professional Member Role: Primary Care Nurse Address: Address: [address] [place] [address]- [place] Name: Steve Saravia RN Position: [facility] RN Member Role: Primary Care Nurse Name: Ella Garcia RN Position: [facility] RN Member Role: Primary Care Nurse Name: Cy Benjamin DO Position: [facility] Renal MD Member Role: Lifetime Consulting Physician Address: Address: [address] [facility] [place] [address]- [place] Name: Migel Lopez RN Position: [facility] RN Member Role: Primary Care Nurse Name: Stacia Hernandez RN Position: [facility] RN Member Role: Primary Care Nurse Name: Lauren Lund RN Position: [facility] ED RN W/OE and Tasks Member Role: Primary Care Nurse Name: Marisol Grady RN Position: [facility] RN Member Role: Primary Care Nurse Name: Corinna Orozco RN Position: [facility] RN Member Role: Primary Care Nurse Name: Flory Fernandez RN Position: [facility] RN Member Role: Primary Care Nurse Name: Paula Foss RN Position: [facility] RN Member Role: Primary Care Nurse Address: Address: [address] [place] [address]- [place] Name: Arnol Travis RN Position: [facility] RN Member Role: Primary Care Nurse Name: Nidia De Oliveira Position: [facility] RN Member Role: Primary Care Nurse Care Team Related Persons Name: MARYCAMERON MEDRANOILA Address: home [address] [place] [address] Name: VALENTINA ARNOLD Address: home [address] [place] [address]
--- OUTSIDE RECORDS SUMMARY | 2023-12-29 20:59 | XMS_ITS | Continuity of Care Document ---
Author Organization [facility] Address [address] [place] [address]- Care Team Providers Care Brand Executive Name Role Phone Katina Zuniga MD Primary Care Physician [place] [facility] [place] 03[place]19/22 [facility] [address] [place], [place] [address] Encounter Diagnosis Bipolar disorder(Discharge Diagnosis) - 03/12/22 Hypertension(Discharge Diagnosis) - 03/12/22 Diabetes(Discharge Diagnosis) - 03/12/22 TIA (transient ischemic attack)(Discharge Diagnosis) - 03/12/22 Leg swelling(Discharge Diagnosis) - 03/12/22 Attending Physician: Katina Zuniga MD Allergies, Adverse [...] 8 11/19/12 Given 1Result Comment: Done at [facility] 2Result Comment: Done at [facility] 3Location History: [facility] 4Result Comment: [07/22/2017] [facility] [id number] [facility] 6Result Comment: [06/12/2015] high [...] 01/03/22 11:36:00 EDT, [id number], Partial fill upon patient requestif the prescription [...] 01/08/22 15:28:00 EDT, Route to Pharmacy Electronically, [facility]/pharmacy #[id number],dose change, 162.56, cm, 01/03/22 11:11:00 EDT, Hei... Start Date: 01/08/22 Status: Ordered lanolin topical - ointment 1 application, Topically, 3 times a day, PRN as needed for dry skin, # 113 Gm, 0 Refills, Maintenance, 02/04/22 8:30:00 EDT, Ointment, [facility]/pharmacy #[id number], Partial fill upon patient request if the prescription is for a schedule II opioid drug., 1 appli... Start Date: 02/04/22 Status: Ordered metFORMIN 500 mg oral tablet, extended release 1 tablet = 500 mg, By Mouth, Daily, # 90 tablet, 1 Refills, Maintenance, 01/03/22 11:36:00 EDT, ER Tablet, [facility]/pharmacy #[id number], Partial fill upon patient request if the prescription is for a schedule II opioid drug., 162.56, cm, 01/03/22 11:11:00 EDT,... Start Date: 01/03/22 Status: Ordered omeprazole 20 mg oral enteric coated capsule 1 capsule = 20 mg, By Mouth, Daily, # 90 capsule, 3 Refills, Maintenance, 10/10/21 13:07:00 EST, ECCapsule, [facility]/pharmacy #[id number], 162.56, cm, 10/10/21 12:54:00 EST, Height, 90.6, kg, 04/27/21 9:57:00 EDT, Dry Weight Start Date: 10/10/21 Status: Ordered simvastatin 20 mg oral tablet 20 mg, 1, tablet, By Mouth, Daily at bedtime, # 90 tablet, Refills 3, Tot. Refills 3, Maintenance, 01/03/22 11:37:00 EDT, Route to Pharmacy Electronically, [facility]/pharmacy #[id number], 162.56, cm, 01/03/22 11:11:00 EDT, Height, 78.4, kg, 11/16/21 22:27:00 EDT,... Start Date: 01/03/22 Stop Date: 12/29/22 Status: Ordered torsemide 20 mg oral tablet 1 tablet = 20 mg, By Mouth, Daily, PRN leg swelling, # 30 tablet, 2 Refills, Maintenance, 02/04/22 8:25:00 EDT, Tablet, [facility]/pharmacy #[id number], replaces furosemide, 162.56, cm, 02/04/22 8:19:00 EDT, Height, 78.4, kg, 11/16/21 22:27:00 EDT, Dry Weight Start Date: 02/04/22 Status: Ordered Vitamin D3 1000 intl units oral capsule 1 capsule = 1,000 International_Units, By Mouth, Daily, # 90 capsule, 2 Refills, Maintenance, 01/03/22 11:38:00 EDT, Capsule, [facility]/pharmacy #[id number], 162.56, cm, 01/03/22 11:11:00 EDT, Height, [...] Effective Dates Health Status Clinical Service Informant Bipolar disorder Discharge Diagnosis 03/12/22 Hypertension Discharge Diagnosis 03/12/22 Diabetes Discharge Diagnosis 03/12/22 TIA (transient ischemic attack) Discharge Diagnosis 03/12/22 Leg swelling Discharge Diagnosis 03/12/22 Vital Signs Most recent to oldest [Reference Range]: 1 2 3 Height 162.56 cm (03/13/22 5:19 PM) 162.56 cm (03/12/22 3:19 PM) 162.56 cm (03/12/22 2:36 PM) Weight 78.2 kg (03/13/22 5:19 PM) 78.2 kg (03/12/22 2:36 PM) Oxygen Saturation [94-100 %] 98 % (03/12/22 2:36 PM) Pulse Rate [55-90 bpm] 97 bpm *H* (03/12/22 2:36 PM) Body Mass Index [18.5-24.99] 29.59 *H* (03/12/22 2:36 PM) Blood Pressure [90-138/55-84 mm Hg] 138/76mm Hg (03/12/22 3:19 PM) 142/72mm Hg *H* (03/12/22 2:36 PM) Mode of Delivery (Oxygen) Room air (03/12/22 2:36 PM) Blood pressure sites Arm, left (03/12/22 2:36 PM) Weight Obtained Via Standing scale (03/12/22 2:36 PM) Social History Social History Type Response Smoking Status Former smoker, quit more than 30 days ago entered on: 11/16/21 Sex
--- OUTSIDE RECORDS SUMMARY | 2023-12-29 20:59 | XMS_ITS | Continuity of Care Document ---
Author Organization [facility] Address [address] [place] [address]- Care Team Providers Care Hyperbaric Technologist Name Role Phone Katina Zuniga MD Primary Care Physician [facility]counter [facility] Date(s): 04/26/22 - 05/26/22 [facility] [address] [place], [place] [address] Allergies, Adverse Reactions, Alerts [...] 11/19/12 Given 1Result Comment: Done at [facility] 2Result Comment: Done at [facility] 3Location History: [facility] 4Result Comment: [07/22/2017] [facility] [id number] [facility] 6Result Comment: [06/12/2015] high [...] 01/03/22 11:36:00 EDT, Route to Pharmacy Electronically, [facility]/pharmacy #[id number], Partial fill upon patient requestif the prescription [...] LEG SWELLING Start Date: 03/29/22 Status: Ordered lamotrigine 25 mg oral tablet TAKE 2 TABLETS BY MOUTH 2 TIMES A DAY FOR 30 DAYS Start Date: 05/15/22 Status: Ordered lanolin topical - ointment 1 application, Topically, 3 times a day, PRN as needed for dry skin, # 113 Gm, 0 Refills, Maintenance, 02/04/22 8:30:00 EDT, Ointment, [facility]/pharmacy #[id number], Partial fill upon patient request [...] 01/03/22 11:37:00 EDT, Route to Pharmacy Electronically, [facility]/pharmacy #[id number], 162.56, cm, 01/03/22 11:11:00 EDT, Height, 78.4, kg, 11/16/21 22:27:00 EDT,... Start Date: 01/03/22 Stop Date: 12/29/22 Status: Ordered torsemide 20 mg oral tablet 1 tablet, By Mouth, Daily, PRN NEEDED FOR LEG SWELLING, # 90 tablet, 1 Refills, [facility] 66385,168, cm, 04/02/22 15:54:00 EDT, Height, 74.1, kg, 03/30/22 4:57:00 EDT, Dry Weight Start Date: 04/05/22 Status: Ordered Vitamin D3 1000 intl units oral capsule 1 capsule = 1,000 International_Units, By Mouth, Daily, # 90 capsule, 2 Refills, Maintenance, 01/03/22 11:38:00 EDT, Capsule, [facility]/pharmacy #[id number], 162.56, cm, 01/03/22 11:11:00 EDT, [...] Maintenance,04/15/22 12:05:00 EDT, Route to Pharmacy Electronically, [facility]/pharmacy #[id number], let us know if not covered by insurance, 168, cm, 04/02/22 15:54:00 EDT, H... Start Date: 04/15/22 Status: Ordered Problem List Condition Confirmation Course [...] Personnel Name: Katina Zuniga MD Address: Address: [address] [place] [address]
--- OUTSIDE RECORDS SUMMARY | 2023-12-29 20:59 | XMS_ITS | Continuity of Care Document ---
Author Organization [facility] Address [address] [place] [id number]- Care Team Providers Care Nutrition Director Name Role Phone Katina Zuniga MD Primary Care Physician [place] [facility] [place] 09/29/[address] [address] Attending Physician: Katina Zuniga MD [...] 8 11/19/12 Given 1Result Comment: Done at [facility] 2Result Comment: Done at [facility] 3Location History[facility] 4Result Comment: [07/22/2017] [facility] [id number] 5Location History: [facility] 6Result Comment: [06/12/2015] high dose 7Admin Note: VIS GIVEN 8Admin Note: vis given Medications aspirin 325 mg oral delayed release tablet 325 mg, 1, tablet, By Mouth, Daily, # 30 tablet, Refills 0, Tot. Refills 0, Maintenance, 04/27/21 16:38:00 EDT, Route to Pharmacy Electronically, [facility]/pharmacy #[id number], Partial fill upon patient requestif [...] 12/15/20 15:42:00 EDT, Route to Pharmacy Electronically, [facility]/pharmacy #[id number], 162.56, cm, 12/15/20 15:05:00 EDT,Height, 91, kg, 12/13/20 6:45:00 EDT, Dry Weight Start Date: 12/15/20 Stop Date: 12/10/21 Status: Ordered Diflucan 150 mg oral tablet 1 tablet = 150 mg, By Mouth, Once, # 1 tablet, 1 Refills, Soft Stop, 09/19/21 12:53:00 EST, Tablet,[facility]/pharmacy #[id number], Partial fill upon patient request [...] 03/14/21 14:36:00 EDT, Route to Pharmacy Electronically, [facility]/pharmacy #[id number], 162.56, cm, 03/14/21 14:12:00 EDT, Height, 89.8, kg, 03/14/21 14:12... Start Date: 03/14/21 Stop Date: 05/09/21 Status: Ordered lithium 300 mg oral tablet 3 tablet = 900 mg, By Mouth, Daily at bedtime, # 270 tablet, 1 Refills, Maintenance, 09/04/21 17:14:00 EST, [facility]/pharmacy #[id number], 162.56, cm, 06/29/21 14:06:00 EDT, Height, 90.6, kg, 04/27/21 9:57:00 EDT, Dry Weight Start Date: 09/04/21 Status: Ordered Melatonin 5 mg oral tablet 1 tablet = 5 mg, By Mouth, Daily at bedtime, PRN for insomnia, for 14 days, # 14 tablet, 0 Refills,Acute 10/05/21 13:23:00 EST, 09/21/21 13:23:00 EST, Tablet, [facility]/pharmacy #[id number], Partial fill upon patient request if the prescription is for a schedule... Start Date: 09/21/21 Stop Date: 10/05/21 Status: Ordered metFORMIN 1000 mg oral tablet 1 tablet = 1,000 mg, By Mouth, Daily, # 90 tablet, 1 Refills, Maintenance, 09/21/21 9:52:00 EST, Tablet, [facility]/pharmacy #[id number], 162.56, cm, 09/19/21 13:07:00 EST, Height, 90.6, kg, 04/27/21 9:57:00 EDT,Dry Weight Start Date: 09/21/21 Status: Ordered nortriptyline 50 mg oral capsule 1, capsule, By Mouth, Daily at bedtime, # 90 capsule, Refills 1, Tot. Refills 1, Maintenance, 09/04/21 13:33:00 EST, Route to Pharmacy Electronically, [facility]/pharmacy #[id number], 162.56, cm, 06/29/21 14:06:00 EDT, Height, 90.6, kg, 04/27/21 9:57:00 EDT, Dry W... Start Date: 09/04/21 Status: Ordered omeprazole 20 mg oral enteric coated capsule 1 capsule = 20 mg, By Mouth, Daily, # 90 capsule, 3 Refills, Maintenance, 09/05/20 14:34:00 EST, ECCapsule, [facility]/pharmacy #[id number], 160, cm, 09/05/20 14:19:00 EST, Height, 94.3, kg, 03/02/19 15:45:00 EDT, Dry Weight Start Date: 09/05/20 Status: Ordered simvastatin 20 mg oral tablet 20 mg, 1, tablet, By Mouth, Daily at bedtime, # 90 tablet, Refills 3, Tot. Refills 3, Maintenance, 03/14/21 14:34:00 EDT, Route to Pharmacy Electronically, [facility]/pharmacy #[id number], 162.56, cm, 03/14/21 14:12:00 EDT, [...] tablet, 0 Refills, Maintenance, 09/19/21 12:52:00 EST,Tablet, [facility]/pharmacy #[id number], Partial fill upon patient request if the prescription is for a scheduleII opioid drug., 1 tablet By Mouth Daily in PM, 162... Start Date: 09/19/21 Status: Ordered Problem List Condition Effective Dates Status Health Status Inform ant Bipolar disorder(Confirmed) Active Breast cancer, Right breast cancer, T1b N0, ER positive, [place] positive, HER-2/mickey negative, diagnosed in 2008. Left [...]
--- OUTSIDE RECORDS SUMMARY | 2023-12-29 20:59 | XMS_ITS | Continuity of Care Document ---
Author Organization [facility] Address [address] [place] [address]- Care Team Providers Care Cushion Spring Assembler Name Role Phone Katina Zuniga MD Primary Care Physician [phone] [place] [facility] [place] [facility] [place] [id number] Date(s): 05/01/22 - 08/29/22 [facility] [address] [place], [place] [address] Attending Physician: Katina Zuniga MD Allergies, Adverse Reactions, Alerts No Known Allergies Immunizations Given and Recorded Vaccine Date Status Refusal Reason influenza virus vaccine, inactivated 1 06/07/22 Gi xi influenza virus vaccine, inactivated 2 06/08/18 Re corded influenza virus vaccine, inactivated 3 07/22/17 Gi xi influenza virus vaccine, inactivated 09/20/16 Ryan rded influenza virus vaccine, inactivated 07/06/14 Give n SARS-CoV-2 mRNA ([id number]) vax 02/24/22 Recorded SARS-CoV-2 (COVID-19) mRNA BNT-162b2 [...] tetanus/diphtheria/pertussis, acel(Tdap) 9 11/19/12 Given 1Result Comment: [facility] [phone] 2Location History: [facility] 3Result Comment: [07/22/2017] [facility] [id number] 4Result Comment: Done at [facility] 5Result Comment: Done at [facility] 7Result Comment: [06/12/2015] [...] 08/29/22 14:10:00 EST, Route to Pharmacy Electronically, [facility]/pharmacy #[id number], Partial fill upon patient request [...] 08/29/22 9:05:00 EST, Route to Pharmacy Electronically, [facility]/pharmacy #[id number], Partial fill upon patient request [...] Refills, Maintenance, 10/10/21 13:07:00 EST, ECCapsule, [facility]/pharmacy #[id number], 162.56, cm, 10/10/21 12:54:00 EST, [...] 11:37:00 EDT, Route to Pharmacy Electronically, [facility]/pharmacy #[id number], 162.56, cm, 01/03/22 11:11:00 EDT, Height, 78.4, kg, 11/16/21 22:27:00 EDT,... Start Date: 01/03/22 Stop Date: 12/29/22 Status: Ordered torsemide 20 mg oral tablet 1 tablet, By Mouth, Daily, PRN NEEDED FOR LEG SWELLING, # 90 tablet, 1 Refills, [facility] 35861,168, cm, 04/02/22 15:54:00 EDT, Height, 74.1, kg, [...] Maintenance, 08/01/22 11:33:00 EST, ER Tablet, [id number], Partial fill upon patient request if the [...] Team Personnel Name: Katina Zuniga MD Position: [facility] Primary Care Physician Member Role: PCP Address: Address: [address] [place] [address]- Name: Mily Stein RN Position: [facility] RN Member Role: Primary Care Nurse Name: Geno Cifuentes RN Position: [facility] RN Member Role: Primary Care Nurse Name: Rosa Agustin NP Position: [facility] Associate Professional Member Role: Primary Care Nurse Address: Address: [address] [place] [email or web address]] Name: Steve Saravia RN Position: [facility] RN Member Role: Primary Care Nurse Name: Ella Garcia RN Position: [facility] RN Member Role: Primary Care Nurse Name: Cy Benjamin DO Position: [facility] Renal MD Member Role: Lifetime Consulting Physician Address: Address: [address] [address] [facility] [place] [address]- [place] Name: Migel Lopez RN Position: [facility] RN Member Role: Primary Care Nurse Name: Stacia Hernandez RN Position: [facility] RN Member Role: Primary Care Nurse Name: Lauren Lund RN Position: [facility] ED RN W/OE and Tasks Member Role: Primary Care Nurse Name: Mraisol Grady RN Position: [facility] RN Member Role: Primary Care Nurse Name: Corinna Orozco RN Position: [facility] RN Member Role: Primary Care Nurse Name: Flory Fernandez RN Position: [facility] RN Member Role: Primary Care Nurse Name: Paula Foss RN Position: [facility] RN Member Role: Primary Care Nurse Address: Address: [address] [place] [address]- [place] Name: Arnol Travis RN Position: [facility] RN Member Role: Primary Care Nurse Name: Nidia De Oliveira Position: [facility] RN Member Role: Primary Care Nurse Care Team Related Persons Name: RAFAELA ANDREWS Address: home [address] [place] [address] Name: VALENTINA ARNOLD Address: home [address] [place] [address]
--- OUTSIDE RECORDS SUMMARY | 2023-12-29 20:59 | XMS_ITS | Continuity of Care Document ---
Author Organization [facility] Address [address] [place] [address]- Care Team Providers Care Mail Clerk Name Role Phone Nadia GUNDERSON, Katina Rosado Primary Care Physician [facility]counter [facility] Date(s): 05/23/20 - 06/22/20 [facility] [address] [place] [address]- [facility] Allergies, Adverse Reactions, Alerts Substance Reaction Severity [...] [facility] 2Result Comment: [07/22/2017] formerly named [facility] [id number] 3[facility] 4Result Comment: [06/12/2015] high [...] 10/27/19 14:06:00 EST, Route to Pharmacy Electronically, [facility]/pharmacy #[id number], 160, cm, 10/27/19 13:44:00 EST, Height, 94.3, kg, 03/02/19 15:45:00 EDT, Dry Weight Start Date: 10/27/19 Stop Date: 10/21/20 Status: Ordered Calcium Carbonate By Mouth, 1000mg, 0 Refills, Maintenance, 01/12/18 13:45:02 EDT Start Date: 01/12/18 Status: Ordered Fosamax 70 mg oral tablet 1 tablet = 70 mg, By Mouth, Every week, # 4 tablet, 11 Refills, Maintenance, 09/20/19 16:46:00 EST,Tablet, [id number], 160, cm, 03/26/19 13:55:00 EDT, Height, [...] 01/26/20 12:49:00 EDT, Route to Pharmacy Electronically, [facility]/pharmacy #[id number], 160, cm, 01/21/20 10:58:00 EDT, Height, 94.3, kg, 03/02/19 15:45:00... Start Date: 01/26/20 Stop Date: 03/22/20 Status: Ordered lithium 300 mg oral tablet 3 tablet = 900 mg, By Mouth, Daily at bedtime, # 270 tablet, 0 Refills, Maintenance, 06/20/20 16:00:00 EDT, [facility]/pharmacy #[id number], 160, cm, 01/21/20 10:58:00 EDT, Height, 94.3, kg, 03/02/19 15:45:00 EDT, Dry Weight Start Date: 06/20/20 Status: Ordered metFORMIN 1000 mg oral tablet 1 tablet = 1,000 mg, By Mouth, 2 times a day, # 180 tablet, 3 Refills, Maintenance, 10/27/19 13:59:00 EST, Tablet, [facility]/pharmacy #[id number], 160, cm, 10/27/19 13:44:00 EST, Height, 94.3, kg, 03/02/19 15:45:00 EDT, Dry Weight Start Date: 10/27/19 Status: Ordered mupirocin 2% topical ointment 1 application, Topically, 3 times a day, apply to leg wound, # 22 Gm, 3 Refills, Maintenance, 01/11/20 15:40:00 EDT, Ointment, [facility]/pharmacy #[id number], 1 application Topically 3 times a day,Instr:apply toleg wound, 160, cm, 10/27/19 13:44:00 EST, Height,... Start Date: 01/11/20 Status: Ordered nortriptyline 50 mg oral capsule 50 mg, 1, capsule, By Mouth, Daily at bedtime, # 90 capsule, Refills 0, Tot. Refills 0, Maintenance, 05/23/20 15:26:00 EDT, Route to Pharmacy Electronically, [facility]/pharmacy #[id number], 160, cm, 01/21/20 10:58:00 EDT, Height, 94.3, kg, 03/02/19 15:45:00 EDT,... Start Date: 05/23/20 Status: Ordered omeprazole 20 mg oral enteric coated capsule 1 capsule = 20 mg, By Mouth, Daily, # 90 capsule, 0 Refills, Maintenance, 06/20/20 14:50:00 EDT, ECCapsule, [facility]/pharmacy #[id number], 160, cm, 01/21/20 10:58:00 EDT, Height, 94.3, kg, 03/02/19 15:45:00 EDT, Dry Weight Start Date: 06/20/20 Status: Ordered simvastatin 20 mg oral tablet 20 mg, 1, tablet, By Mouth, Daily at bedtime, # 90 tablet, Refills 3, Tot. Refills 3, Maintenance, 06/30/19 14:01:33 EST, Route to Pharmacy Electronically, [id number], [facility]/pharmacy #[id number] Start Date: 06/30/19 Stop Date: 06/24/20 [...] Right breast cancer, T1b N0, ER positive, [place] positive, HER-2/mickey negative, diagnosed in 2008. Left [...]
--- OUTSIDE RECORDS SUMMARY | 2023-12-29 21:00 | XMS_ITS | Continuity of Care Document ---
Author Organization [facility] Address [address] [place] [address]- Care Team Providers Care Rotor Blade Installer Name Role Phone Nadia GUNDERSON, Katina Rosado Primary Care Physician [phone] [place] [facility] [place] 09[place] 10/19[place] [facility] [address] [place] [address]- Attending Physician: Merlyn Murillo Admitting Physician: Merlyn Murillo Referring Physician: AdmtrMerlyn Allergies, Adverse Reactions, Alerts No Known Allergies [...] 11/19/12 Given 1Result Comment: Done at [facility] 2Result Comment: Done at [facility] 3Location History: [facility] 4Result Comment: [07/22/2017] [facility] [phone] [facility] 6Result Comment: [06/12/2015] high dose 7Admin Note: VIS GIVEN 8Admin Note: vis given Medications aspirin 325 mg oral delayed release tablet 325 mg, 1, tablet, By Mouth, Daily, # 30 tablet, Refills 0, Tot. Refills 0, Maintenance, 04/27/21 16:38:00 EDT, Route to Pharmacy Electronically, [facility]/pharmacy #[id number], Partial fill upon patient requestif the prescription is for a schedule II opioid kirit... Start Date: 04/27/21 Status: Ordered aspirin 325 mg oral delayed release tablet 325 mg, 1, tablet, By Mouth, Daily, # 90 tablet, Refills 3, Tot. Refills 3, Maintenance, 10/10/21 13:09:00 EST, Route to Pharmacy Electronically, [facility]/pharmacy #[id number], Partial fill upon patient requestif the prescription is for a schedule II opioid kirit... Start Date: 10/10/21 Status: Ordered atenolol 25 mg oral tablet 25 mg, 1, tablet, By Mouth, Daily, # 90 tablet, Refills 3, Tot. Refills 3, Maintenance, 12/10/21 15:42:00 EDT, Route to Pharmacy Electronically, [facility]/pharmacy #[id number], 162.56, cm, 10/10/21 12:54:00 EST,Height, 90.6, [...] 14:36:00 EDT, Route to Pharmacy Electronically, [facility]/pharmacy #[id number], 162.56, cm, 03/14/21 14:12:00 EDT, Height, 89.8, kg, 03/14/21 14:12... Start Date: 03/14/21 Stop Date: 05/09/21 Status: Ordered levocetirizine 5 mg oral tablet 1 tablet, By Mouth, Daily in PM, # 30 tablet, 10 Refills, [id number], 30, TAKE 1 TABLET BY MOUTH EVERY EVENING, 162.56, cm, 10/10/21 13:15:00 EST, Height, 90.6, kg, 04/27/21 9:57:00 EDT, Dry Weight Start Date: 10/16/21 Status: Ordered lithium 300 mg oral tablet 3 tablet = 900 mg, By Mouth, Daily at bedtime, # 270 tablet, 1 Refills, Maintenance, 09/04/21 17:14:00 EST, [facility]/pharmacy #[id number], 162.56, cm, 06/29/21 14:06:00 EDT, Height, 90.6, kg, 04/27/21 9:57:00 EDT, Dry Weight Start Date: 09/04/21 Status: Ordered metFORMIN 1000 mg oral tablet 1 tablet = 1,000 mg, By Mouth, Daily, # 90 tablet, 1 Refills, Maintenance, 09/21/21 9:52:00 EST, Tablet, [facility]/pharmacy #[id number], 162.56, cm, 09/19/21 13:07:00 EST, Height, 90.6, kg, 04/27/21 9:57:00 EDT,Dry Weight Start Date: 09/21/21 Status: Ordered nortriptyline 50 mg oral capsule 1, capsule, By Mouth, Daily at bedtime, # 90 capsule, Refills 1, Tot. Refills 1, Maintenance, 09/04/21 13:33:00 EST, Route to Pharmacy Electronically, [facility]/pharmacy #[id number], 162.56, cm, 06/29/21 14:06:00 EDT, Height, 90.6, kg, 04/27/21 9:57:00 EDT, Dry W... Start Date: 09/04/21 Status: Ordered omeprazole 20 mg oral enteric coated capsule 1 capsule = 20 mg, By Mouth, Daily, # 90 capsule, 3 Refills, Maintenance, 10/10/21 13:07:00 EST, ECCapsule, [facility]/pharmacy #[id number], 162.56, cm, 10/10/21 12:54:00 EST, Height, 90.6, kg, 04/27/21 9:57:00 EDT, Dry Weight Start Date: 10/10/21 Status: Ordered simvastatin 20 mg oral tablet 20 mg, 1, tablet, By Mouth, Daily at bedtime, # 90 tablet, Refills 3, Tot. Refills 3, Maintenance, 03/14/21 14:34:00 EDT, Route to Pharmacy Electronically, [facility]/pharmacy #[id number], 162.56, cm, 03/14/21 14:12:00 EDT, Height, [...] Right breast cancer, T1b N0, ER positive, [place] positive, HER-2/mickey negative, diagnosed in 2008. Left [...]
--- OUTSIDE RECORDS SUMMARY | 2023-12-29 21:00 | XMS_ITS | Continuity of Care Document ---
Author Organization [facility] Address [address] [place] [address]- Care Team Providers Care Field Services Manager Name Role Phone Katina Zuniga MD Primary Care Physician [phone] [facility] Date(s): 11/20/21 - 12/20/21 [facility] [address] [place] [address]- Attending Physician: Merlyn Murillo Admitting Physician: Merlyn [...] 8 11/19/12 Given 1Result Comment: Done at [facility] 2Result Comment: Done at [facility] 3Location History: [facility] 4Result Comment: [07/22/2017] [facility] [id number] [facility] 6Result Comment: [06/12/2015] high [...] 04/27/21 16:38:00 EDT, Route to Pharmacy Electronically, [facility]/pharmacy #[id number], Partial fill upon patient requestif the prescription [...] 3 Refills, Maintenance, 10/10/21 13:07:00 EST, ECCapsule, [facility]/pharmacy #[id number], 162.56, cm, 10/10/21 12:54:00 EST, Height, 90.6, kg, 04/27/21 9:57:00 EDT, Dry Weight Start Date: 10/10/21 Status: Ordered simvastatin 20 mg oral tablet 20 mg, 1, tablet, By Mouth, Daily at bedtime, # 90 tablet, Refills 3, Tot. Refills 3, Maintenance, 03/14/21 14:34:00 EDT, Route to Pharmacy Electronically, [facility]/pharmacy #[id number], 162.56, cm, 03/14/21 14:12:00 [...] Right breast cancer, T1b N0, ER positive, [place] positive, HER-2/mickey negative, diagnosed in 2008. Left [...]
--- OUTSIDE RECORDS SUMMARY | 2023-12-29 21:00 | XMS_ITS | Continuity of Care Document ---
Author Organization [facility] Address [address] [place] [address]- Care Team Providers Care Maintenance Worker Swimming Pool Name Role Phone Katina Zuniga MD Primary Care Physician [facility] Date[facility]): [facility]22 - 06/14/22 [facility] [address] [place], [place] [address] Allergies, Adverse Reactions, Alerts [...] tetanus/diphtheria/pertussis, acel(Tdap) 9 11/19/12 Given 1Result Comment: [facility] [phone] 2Location History: [facility] 3Result Comment: [07/22/2017] [facility] [phone] 4Result Comment: Done at [facility] 5Result Comment: Done at [facility] 7Result Comment: [06/12/2015] high [...] 11:36:00 EDT, Route to Pharmacy Electronically, [facility]/pharmacy #[id number], Partial fill upon patient requestif the prescription [...] Refills, Maintenance, 02/04/22 8:30:00 EDT, Ointment, [facility]/pharmacy #[id number], Partial fill upon patient request if the [...] 11:37:00 EDT, Route to Pharmacy Electronically, [facility]/pharmacy #[id number], 162.56, cm, 01/03/22 11:11:00 EDT, Height, 78.4, kg, 11/16/21 22:27:00 EDT,... Start Date: 01/03/22 Stop Date: 12/29/22 Status: Ordered torsemide 20 mg oral tablet 1 tablet, By Mouth, Daily, PRN NEEDED FOR LEG SWELLING, # 90 tablet, 1 Refills, [facility] STORE 67675,168, cm, 04/02/22 15:54:00 EDT, Height, 74.1, kg, [...] Refills, Maintenance, 01/03/22 11:38:00 EDT, Capsule, [facility]/pharmacy #[id number], 162.56, cm, 01/03/22 11:11:00 EDT, Height, [...] Personnel Name: Katina Zuniga MD Address: Address: [address] [place] [address]
--- OUTSIDE RECORDS SUMMARY | 2023-12-29 21:00 | XMS_ITS | Continuity of Care Document ---
Author Organization [facility] Address [address] [place] [address]- Care Team Providers Care Pipe Welder Name Role Phone Katina Zuniga MD Primary Care Physician [facility] Date(s): 02/01/22 - 02/08/22 [facility] [address] [place], [place] [address] Attending Physician: Anca Cotton MD Allergies, Adverse Reactions, Alerts No Known [...] Given 1Result Comment: Done at [facility] 2Result Comment: Done at [facility] 3Location History: [facility] 4Result Comment: [07/22/2017] [facility] [phone] 5[facility] 6Result Comment: [06/12/2015] high dose 7Admin Note: VIS GIVEN 8Admin Note: vis given Medications amLODIPine 10 mg oral tablet 10 mg, 1, tablet, By Mouth, Daily, # 90 tablet, Refills 2, Tot. Refills 2, Maintenance, 01/03/22 11:39:00 EDT, Route to Pharmacy Electronically, [facility]/pharmacy #[id number], Partial fill upon patient request if the prescription is for a schedule II opioid drug... Start Date: 01/03/22 Status: Ordered aspirin 325 mg oral delayed release tablet 325 mg, 1, tablet, By Mouth, Daily, # 90 tablet, Refills 2, Tot. Refills 2, Maintenance, 01/03/22 11:36:00 EDT, Route to Pharmacy Electronically, [facility]/pharmacy #[id number], Partial fill upon patient requestif [...] 01/08/22 15:28:00 EDT, Route to Pharmacy Electronically, [facility]/pharmacy #[id number],dose change, 162.56, cm, 01/03/22 11:11:00 EDT, Hei... Start Date: 01/08/22 Status: Ordered lanolin topical - ointment 1 application, Topically, 3 times a day, PRN as needed for dry skin, # 113 Gm, 0 Refills, Maintenance, 02/04/22 8:30:00 EDT, [facility]intment, [id number], Partial fill upon patient request if the prescription is for a schedule II opioid drug., 1 appli... Start Date: 02/04/22 Status: Ordered metFORMIN 500 mg oral tablet, extended release 1 tablet = 500 mg, By Mouth, Daily, # 90 tablet, 1 Refills, Maintenance, 01/03/22 11:36:00 EDT, ER Tablet, [facility]/pharmacy #[id number], Partial fill upon patient request if the prescription is for a schedule II opioid drug., 162.56, cm, 01/03/22 11:11:00 EDT,... Start Date: 01/03/22 Status: Ordered nortriptyline 25 mg oral capsule 25 mg, 1, capsule, By Mouth, Daily at bedtime, # 90 capsule, Refills 2, Tot. Refills 2, Maintenance, 01/03/22 11:39:00 EDT, Route to Pharmacy Electronically, [facility]/pharmacy #[id number], Partial fill upon patient request if the prescription is for a schedule I... Start Date: 01/03/22 Status: Ordered omeprazole 20 mg oral enteric coated capsule 1 capsule = 20 mg, By Mouth, Daily, # 90 capsule, 3 Refills, Maintenance, 10/10/21 13:07:00 EST, ECCapsule, [facility]/pharmacy #[id number], 162.56, cm, 10/10/21 12:54:00 EST, Height, 90.6, kg, 04/27/21 9:57:00 EDT, Dry Weight Start Date: 10/10/21 Status: Ordered simvastatin 20 mg oral tablet 20 mg, 1, tablet, By Mouth, Daily at bedtime, # 90 tablet, Refills 3, Tot. Refills 3, Maintenance, 01/03/22 11:37:00 EDT, Route to Pharmacy Electronically, [facility]/pharmacy #[id number], 162.56, cm, 01/03/22 11:11:00 EDT, [...]
--- OUTSIDE RECORDS SUMMARY | 2023-12-29 21:00 | XMS_ITS | Continuity of Care Document ---
Author Organization [facility] Address [address] [place] [address]- Care Team Providers Care Bioinformaticist Name Role Phone Katina Zuniga MD Primary Care Physician Encounter [facility] Date(s): 08/01/22 - 08/08/22 [facility] [address] [place], [place] [address] Encounter Diagnosis Bipolar disorder(Discharge Diagnosis) - 08/01/22 CKD (chronic kidney disease)(Discharge Diagnosis) - 08/01/22 Diabetes mellitus(Discharge Diagnosis) - 08/01/22 Attending Physician: Katina Zuniga MD Allergies, Adverse Reactions, Alerts No Known Allergies Immunizations Given and Recorded Vaccine Date Status Refusal Reason influenza virus vaccine, inactivated 1 06/07/22 Gi xi influenza virus vaccine, inactivated 2 06/08/18 Re corded influenza virus vaccine, inactivated 3 07/22/17 Gi xi influenza virus vaccine, inactivated 09/20/16 Ryan rded influenza virus vaccine, inactivated 07/06/14 Give n SARS-CoV-2 mRNA ([id number]) vax 02/24/22 Recorded SARS-CoV-2 (COVID-19) mRNA BNT-162b2 [...] tetanus/diphtheria/pertussis, acel(Tdap) 9 11/19/12 Given 1Result Comment: [facility] [phone] 2Location History: [facility] 3Result Comment: [07/22/2017] [facility] [phone] 4Result Comment: Done at [facility] 5Result Comment: Done at [facility] 7Result Comment: [06/12/2015] [...] Daily, # 30 tablet, Refills 0, Maintenance, 08/01/22 11:29:00 EST, Partial fill upon patient request if the prescription is for a schedule II opioid drug. Start Date: 08/01/22 Status: Ordered freestyle kip sensors 14 day [...] Dry Weight Start Date: 10/10/21 Status: Ordered risperiDONE 2 mg oral tablet [...] 01/03/22 11:37:00 EDT, Route to Pharmacy Electronically, [facility]/pharmacy #[id number], 162.56, cm, 01/03/22 11:11:00 EDT, Height, 78.4, kg, 11/16/21 22:27:00 EDT,... Start Date: 01/03/22 Stop Date: 12/29/22 Status: Ordered torsemide 20 mg oral tablet 1 tablet, By Mouth, Daily, PRN NEEDED FOR LEG SWELLING, # 90 tablet, 1 Refills, [facility] STORE 82721,168, cm, 04/02/22 15:54:00 EDT, Height, 74.1, kg, [...] Refills, Maintenance, 08/01/22 11:33:00 EST, ER Tablet, [facility]/pharmacy #[id number], Partial fill upon patient request if [...] Venous insufficiency Confirmed Active Wheezing Confirmed Active Diagnosis Diagnosis Type Effective Dates Health Status Cl inical Service Informant Bipolar disorder Discharge Diagnosis 08/01/22 CKD (chronic kidney disease) Discharge Diagnosis 08/01/22 Diabetes mellitus Discharge Diagnosis 08/01/22 Vital Signs Most recent to oldest [Reference Range]: 1 Height 161 cm (08/01/22 11:03 AM) Weight 79.6 kg (08/01/22 11:03 AM) Oxygen Saturation [94-100 %] 97 % (08/01/22 11:03 AM) Pulse Rate [55-90 bpm] 87 bpm (08/01/22 11:03 AM) Body Mass Index [18.5-24.99 kg/m2] 30.71 kg/m2 *>HHI* (08/01/22 11:03 AM) Blood Pressure [90-138/55-84 mm Hg] 110/ 60mm Hg (08/01/22 11:03 AM) Temperature [96.8-100.4 DegF] 98.5 DegF (08/01/22 11:03 AM) Mode of Delivery (Oxygen) Room air (08/01/22 11:03 AM) Blood pressure sites Arm, right (08/01/22 11:03 AM) Temperature Route Temporal (08/01/22 11:03 AM) Weight Obtained Via Standing scale (08/01/22 11:03 AM) Social History Social History Type Response Smoking Status Former smoker, quit more than 30 days ago entered on: 11/16/21 Sex Note * Karoline Lemon: PERFORM, SIGN, VERIFY Event Display: Patient Education/Instruction Authored Date: [id number] [facility] *No [facility] Clinical Summary Name JOHNNIE ANDREWS Age 77 Years 1945 PCP Katina Zuniga MD PCP Visit Date 08/01/2022 10:51:00 Patient Instructions GET LABS TODAY GET XRAYS AT [address] Additional Instructions: Scheduled Appointments?? Future Appointments ?No Future Appointments Scheduled Follow-Up Instructions ?? With: Address: When: Angelica Maradiaga [facility] [address], [facility], [place] [id number] Business (1) Diagnosis Medications: Please continue your medications until treatment is completed or stopped by your provider. Discuss any questions related to medications with your provider. New Medications [id number], [address] [place] [phone], [phone] Acetaminophen (Tylenol 8 HR Arthritis Pain 650 mg oral tablet, extended release) 2 tab(s) Oral Daily in the morning as needed Pain , Moderate. Refills: 0. Next Dose: Medications to Continue Taking That Have Changed These medications were not printed or sent to your pharmacy - Risperidone (risperiDONE 2 mg oral tablet) 1 tab(s) Oral every 48 hours. Next Dose: Medications to Continue with No Changes These medications were not printed or sent to your pharmacy Amlodipine (amLODIPine 5 mg oral tablet) 1 tab(s) Oral Daily. Next Dose: Aspirin (aspirin 81 mg oral delayed release tablet) 81 Milligram Oral Daily. Next Dose: Divalproex Sodium (divalproex sodium 500 mg oral enteric coated tablet) 1 tab(s) Oral twice a day. Next Dose: Durable Medical Equipment (Freestyle Lite Lancets) DX: E11.9 USE THREE TIMES PER DAY. Refills: 3. Next Dose: Durable Medical Equipment (Freestyle Lite Monitor) DX: E11.9 USE THREE TIMES PER DAY. Refills: 0. Next Dose: Durable Medical Equipment (Freestyle Lite Test Strips) dx: E11.9 USE THREE TIMES PER DAY. Refills: 3. Next Dose: Durable Medical Equipment (Walker) Ht: 162.56cm Wt: 83.1kg DX: osteoarthritis M19.90 Length of Need: x99. Refills: 0. Next Dose: Folic Acid (folic acid 1 mg oral tablet) 1 tab(s) Oral Daily. Next Dose: Lidocaine Topical (Lidoderm 5% film) Topically Daily. Next Dose: Miscellaneous Rx (freestyle kip sensors 14 day) use three times per day dx: E11.9. Refills: 11. Next Dose: Miscellaneous Rx (FREESTYLE KIP TESTING MONITOR) PLEASE USE TO CHECK BG DAILY FOR DX: E11.9 FREETYLE KIP SENSOR. Refills: 0. Next Dose: Omeprazole (omeprazole 20 mg oral enteric coated capsule) 1 capsule Oral Daily. Refills: 3. Next Dose: Simvastatin (simvastatin 20 mg oral tablet) 1 tab(s) Oral Daily at Bedtime for 90 Days. Refills: 3. Next Dose: torsemide (torsemide 20 mg oral tablet) 1 tab(s) Oral Daily as needed NEEDED FOR LEG SWELLING. Refills: 1. Next Dose: Trazodone (traZODone 50 mg oral tablet) 1 tab(s) Oral Daily at Bedtime as needed Sleep. Next Dose: No Longer Take the Following Medications Enoxaparin 30 Milligram Subcutaneous Injection Daily. Insulin Lispro 2-10 units Subcutaneous Injection 3 times a day before meals. << Sliding ScaleComments >> 150 - 199 2 units Call if less than 70 200 - 249 4 units 250 - 299 6 units 300 - 349 8 units 350 - 399 10 units Call if greater than 400 << Sliding Scale Comments >>. Olanzapine (olanzapine 2.5 mg oral tablet) 1 tab(s) Oral every 6 hours as needed Agitation. Olanzapine (olanzapine 5 mg oral tablet) 1 tab(s) Oral Daily at Bedtime. Allergy Info:?? NKA Medications Given This Visit Future Orders ?Shoulder Min 2 Views Left? Order Date:08/01/22?- Complete on or after?08/01/22 ?Shoulder Min 2 Views Right? Order Date:08/01/22?- Complete on or after?08/01/22 ?Lumbar Spine 2 or 3 Views? Order Date:08/01/22?- Complete on or after?08/01/22 Vital Signs Height 161 cm Weight 79.6 kg BMI 30.71 kg/m2 Blood Pressure 110 mm Hg/60 mm Hg Temperature 98.5 DegF Pulse Rate 87 bpm Respiratory Rate 02 Sat Mode of Delivery 97 %/Room air You can now view a summary of your hospital visit from the comfort of your home through a free online portal called Orad. Orad is a website that allows you to securely view your medical information including discharge summary, medications and follow-up visits. ??You can alsosend a secure electronic message to your doctor???s office to request appointments, renew medications or just ask a question. You can enroll at [email or web address] or register during your next office visit. Disclaimer:?? The information provided is of a general nature and is intended to be used in conjunction with the recommendations and advice of your health care practitioner. ??Every effort has been made to ensure that the information provided is accurate and complete at the time it is provided to you however, as your needs change, or, as new ??information becomes available, different or additional instructions may be required. If you have questions, please consult with your primary care provider or pharmacist, as appropriate. ??This information is not intended to serve as substitution for assessment and evaluation by a qualified health care provider. If you do not have a primary care provider, you may find a [facility] provider by calling [facility] [facility] at [phone]. For information about the plan of care including goals and instructions for your diagnosis, please see the patient education orders section of this document. Patient Education Materials?? The content of this educational material or handout may have been modified, supplemented, or adapted from its original content and format to support your individualized medical care. Patient Care team information Care Team Personnel Name: Katina Zuniga MD Position: [facility] Primary Care Physician Member Role: PCP Address: Address: [address] [place] [address]- Name: Mily Stein RN Position: [facility] RN Member Role: Primary Care Nurse Name: Geno Cifuentes RN Position: [facility] RN Member Role: Primary Care Nurse Name: Rosa Agustin NP Position: [facility] Associate Professional Member Role: Primary Care Nurse Address: Address: [address] [place] [address]- Name: Steve Saravia RN Position: [facility] RN Member Role: Primary Care Nurse Name: Ella Garcia RN Position: [facility] RN Member Role: Primary Care Nurse Name: Cy Benjamin DO Position: [facility] Renal MD Member Role: Lifetime Consulting Physician Address: Address: [address] [facility] [place] [place] [address]- [place] Name: Migel Lopez RN Position: [facility] RN Member Role: Primary Care Nurse Name: Stacia Hernandez RN Position: S RN Member Role: Primary Care Nurse Name: Lauren Lund RN Position: [facility] ED RN W/OE and Tasks Member Role: Primary Care Nurse Name: Marisol Grady RN Position: [facility] RN Member Role: Primary Care Nurse Name: Corinna Orozco RN Position: [facility] RN Member Role: Primary Care Nurse Name: Flory Fernandez RN Position: [facility] RN Member Role: Primary Care Nurse Name: Paula Foss RN Position: [facility] RN Member Role: Primary Care Nurse Address: Address: [address] [place] [address]- [place] Name: Arnol Travis RN Position: S RN Member Role: Primary Care Nurse Name: Nidia De Oliveira Position: [facility] RN Member Role: Primary Care Nurse Care Team Related Persons Name: RAFAELA ANDREWS Address: home [address] [place] [address] Name: VALENTINA ARNOLD Address: home [address] [address]
--- OUTSIDE RECORDS SUMMARY | 2023-12-29 21:00 | XMS_ITS | Continuity of Care Document ---
Author Organization [facility] Address [address] [place] [address]- Care Team Providers Care Java Designer Name Role Phone Katina Zuniga MD Primary Care Physician [facility] Date[facility]): 03/15/22 - 04/14/22 [facility] [address] [place], [place] [address] Allergies, Adverse Reactions, Alerts No [...] [facility] 3Location History: [facility] 4Result Comment: [07/22/2017] [facility] [phone] [facility] 6Result Comment: [06/12/2015] high [...] 01/03/22 11:36:00 EDT, Route to Pharmacy Electronically, [facility]/pharmacy #[id number], Partial fill upon patient requestif the prescription is for a schedule II opioid kirit... Start Date: 01/03/22 Status: Ordered divalproex sodium 500 mg oral enteric coated tablet = 500 mg, By Mouth, 2 times a day, # 60 tablet, 2 Refills, Maintenance, 04/12/22 15:12:00 EDT, Tablet, [facility]/pharmacy #[id number], Partial fill upon [...] 0 Refills, Maintenance, 02/04/22 8:30:00 EDT, Ointment, [facility]/pharmacy #[id number], Partial fill upon patient request if the prescription is for a schedule II opioid drug., 1 appli... Start Date: 02/04/22 Status: Ordered levoFLOXacin 750 mg oral tablet 1 tablet = 750 mg, By Mouth, Every 48 hours, for 5 days, start from 04/13/22, # 3 tablet, 0 Refills,Acute 04/17/22 15:11:00 EDT, 04/12/22 15:11:00 EDT, Tablet, [facility]/pharmacy #[id number], Partial fill upon patient request if the prescription is for a schedule... Start Date: 04/12/22 Stop Date: 04/17/22 Status: Ordered MetFORMIN (Eqv-Glucophage XR) 500 mg oral tablet, extended release TAKE 1 TABLET BY MOUTH EVERY DAY Start Date: 03/29/22 Status: Ordered omeprazole 20 mg oral enteric coated capsule 1 capsule = 20 mg, By Mouth, Daily, # 90 capsule, 3 Refills, Maintenance, 10/10/21 13:07:00 EST, ECCapsule, [facility]/pharmacy #[id number], 162.56, cm, 10/10/21 12:54:00 EST, Height, 90.6, kg, 04/27/21 9:57:00 EDT, Dry Weight Start Date: 10/10/21 Status: Ordered simvastatin 20 mg oral tablet 20 mg, 1, tablet, By Mouth, Daily at bedtime, # 90 tablet, Refills 3, Tot. Refills 3, Maintenance, 01/03/22 11:37:00 EDT, Route to Pharmacy Electronically, [facility]/pharmacy #[id number], 162.56, cm, 01/03/22 11:11:00 EDT, Height, 78.4, kg, 11/16/21 22:27:00 EDT,... Start Date: 01/03/22 Stop Date: 12/29/22 Status: Ordered torsemide 20 mg oral tablet 1 tablet, By Mouth, Daily, PRN NEEDED FOR LEG SWELLING, # 90 tablet, 1 Refills, [facility] STORE 00877,168, cm, 04/02/22 15:54:00 EDT, Height, 74.1, kg, 03/30/22 4:57:00 EDT, Dry Weight Start Date: 04/05/22 Status: Ordered Vitamin D3 1000 intl units oral capsule 1 capsule = 1,000 International_Units, By Mouth, Daily, # 90 capsule, 2 Refills, Maintenance, 01/03/22 11:38:00 EDT, Capsule, [facility]/pharmacy #[id number], 162.56, cm, 01/03/22 [...]
--- OUTSIDE RECORDS SUMMARY | 2023-12-29 21:00 | XMS_ITS | Continuity of Care Document ---
Author Organization [facility] ter Address [address] [place] [id number]- Care Team Providers Care Superintendent Name Role Phone Katina Zuniga MD Primary Care Physician [facility] Date[facility]): 12/13/20 - 01/12/[address] [address] Allergies, Adverse Reactions, Alerts Substance Reaction Severity Status NKA Active Immunizations Given and Recorded Vaccine Date Status Refusal Reason SARS-CoV-2 (COVID-19) mRNA BNT-162b2 vac 1 11/09/20 Recorded SARS-CoV-2 (COVID-19) mRNA BNT-162b2 vac 2 10/17/20 Recorded Influenza Virus Vaccine (oldterm) 05/26/19 Recorde d [...] 8 11/19/12 Given 1Result Comment: Done at [facility] 2Result Comment: Done at [facility] 4Result Comment: [07/22/2017] formerly named [facility] [id number] [facility] 6Result Comment: [06/12/2015] high dose 7Admin Note: VIS GIVEN 8Admin Note: vis given Medications aspirin 81 mg [...] 12/15/20 15:42:00 EDT, Route to Pharmacy Electronically, [facility]/pharmacy #[id number], 162.56, cm, 12/15/20 15:05:00 EDT,Height, [...] Date: 08/03/19 Stop Date: 12/01/19 Status: Ordered lithium 300 mg oral tablet 3 tablet = 900 mg, By Mouth, Daily at bedtime, # 270 tablet, 2 Refills, Maintenance, 09/05/20 14:33:00 EST, [facility]/pharmacy #[id number], 160, cm, 09/05/20 14:19:00 EST, Height, 94.3, kg, 03/02/19 15:45:00 EDT, Dry Weight Start Date: 09/05/20 Status: Ordered metFORMIN 1000 mg oral tablet 1 tablet = 1,000 mg, By Mouth, Daily, # 90 tablet, 3 Refills, Maintenance, 12/15/20 15:41:00 EDT, Tablet, [facility]/pharmacy #[id number], 162.56, cm, 12/15/20 15:05:00 EDT, Height, 91, kg, 12/13/20 6:45:00 EDT, Dry Weight Start Date: 12/15/20 Status: Ordered nortriptyline 50 mg oral capsule 1, capsule, By Mouth, Daily at bedtime, # 90 capsule, Refills 1, Tot. Refills 0, Maintenance, 09/04/20 15:55:00 EST, Route to Pharmacy Electronically, [facility] STORE [id number], 160, cm, 06/27/20 14:03:00 EST,Height, 94.3, kg, 03/02/19 15:45:00 EDT, Dry Weight Start Date: 09/04/20 Status: Ordered omeprazole 20 mg oral enteric coated capsule 1 capsule = 20 mg, By Mouth, Daily, # 90 capsule, 3 Refills, Maintenance, 09/05/20 14:34:00 EST, ECCapsule, [facility]/pharmacy #[id number], 160, cm, 09/05/20 14:19:00 EST, Height, 94.3, kg, 03/02/19 15:45:00 EDT, Dry Weight Start Date: 09/05/20 Status: Ordered simvastatin 20 mg oral tablet 20 mg, 1, tablet, By Mouth, Daily at bedtime, # 90 tablet, Refills 1, Tot. Refills 1, Maintenance, 12/11/20 15:09:00 EDT, Route to Pharmacy Electronically, [facility]/pharmacy #[id number], 162.56, cm, 12/05/20 16:18:00 EDT, Height, 88.18, kg, 12/05/20 16:18:00 EDT... Start Date: 12/11/20 Stop Date: 06/09/21 Status: Ordered Vitamin D3 1000 intl units [...] Active Pure hypercholesterolemia(Confirmed) Active Urinary urgency(Confirmed) Active Wheezing(Confirmed) Active Social History Social History Type Response Tobacco Other: 1 pack per da y for 40 years. Sex
--- OUTSIDE RECORDS SUMMARY | 2023-12-29 21:00 | XMS_ITS | Continuity of Care Document ---
Author Organization [facility] Address [address] [place] [address]- Care Team Providers Care Mortgage Underwriter Name Role Phone Sandro GUNDERSON, Jesusita Solis Primary Care Physician [facility] [facility] [place] 05/09/23 - 10/25/23 [facility] [address] [place] [address]- Attending Physician: Carina Bridges MD Admitting Physician: Carina Bridges MD Referring Physician: Katina Zuniga MD Allergies, Adverse Reactions, Alerts No Known Allergies Immunizations Given and Recorded Vaccine Date Status Refusal Reason influenza virus vaccine, inactivated 1 06/07/22 Gi xi influenza virus vaccine, inactivated 2 06/08/18 Re corded influenza virus vaccine, inactivated 3 07/22/17 Gi xi influenza virus vaccine, inactivated 09/20/16 Ryan rded influenza virus vaccine, inactivated 07/06/14 Give n SARS-CoV-2 mRNA (tcryrbe-azop-nccmp) vax 02/24/22 Recorded SARS-CoV-2 (COVID-19) mRNA BNT-162b2 [...] 9 11/19/12 Given 1Result Comment: [facility] [phone] 2Location History: [facility] 3Result Comment: [07/22/2017] [facility] [phone] 4Result Comment: Done at [facility] 5Result Comment: Done at [facility] 7Result Comment: [06/12/2015] high dose 8Admin Note: VIS GIVEN 9Admin Note: vis given Medications acetaminophen 650 mg oral tablet, extended release 2 tablet, By Mouth, Daily in AM, PRN NEEDED FOR MODERATE PAIN, # 100 tablet, 0 Refills, Maintenance, 11/13/22 11:59:00 EDT, [facility] STORE [id number], 161, cm, 08/01/22 11:03:00 EST, Height, 73, kg, 06/28/22 16:35:00 EDT, Dry Weight Start Date: 11/13/22 Status: Ordered amLODIPine 5 mg oral tablet 1 tablet [...] 08/29/22 14:10:00 EST, Route to Pharmacy Electronically, [facility]/pharmacy #[id number], Partial fill upon patient request if the [...] 08/29/22 9:05:00 EST, Route to Pharmacy Electronically, [facility]/pharmacy #[id number], Partial fill upon patient request ifthe prescription [...] 3 Refills, Maintenance, 10/10/21 13:07:00 EST, ECCapsule, [facility]/pharmacy #[id number], 162.56, cm, 10/10/21 12:54:00 EST, Height, 90.6, kg, 04/27/21 9:57:00 EDT, Dry Weight Start Date: 10/10/21 Status: Ordered pantoprazole 20 mg oral delayed release tablet 1 tablet, By Mouth, Daily at bedtime, # 90 tablet, 0 Refills, Maintenance, 11/13/22 11:59:00 EDT, 161, cm, 08/01/22 11:03:00 EST, Height, 73, kg, 06/28/22 16:35:00 EDT, Dry Weight Start Date: 11/13/22 Status: Ordered risperiDONE 2 mg oral tablet [...] 01/03/22 11:37:00 EDT, Route to Pharmacy Electronically, [facility]/pharmacy #[id number], 162.56, cm, 01/03/22 11:11:00 EDT, Height, 78.4, kg, 11/16/21 22:27:00 EDT,... Start Date: 01/03/22 Stop Date: 12/29/22 Status: Ordered torsemide 20 mg oral tablet 1 tablet, By Mouth, Daily, PRN NEEDED FOR LEG SWELLING, # 90 tablet, 1 Refills, [facility] STORE [id number],168, cm, 04/02/22 15:54:00 EDT, Height, 74.1, kg, [...] Care team information Care Team Personnel Name: Mily Stein RN Position: [facility] RN Member Role: Primary Care Nurse Name: Geno Cifuentes RN Position: [facility] RN Member Role: Primary Care Nurse Name: Rosa Agustin NP Position: [facility] Associate Professional Member Role: Primary Care Nurse Address: Address: [place] [address]- Name: Felicitas Medellin Position: [facility] Outreach Member Role: Lifetime Consulting Physician Name: Sandro GUNDERSON , Jesusita Solis Position: Reference Physician Member Role: PCP Address: Address: [address] [place] [address]- Name: Steve Saravia RN Position: [facility] RN Member Role: Primary Care Nurse Name: Ella Garcia RN Position: [facility] RN Member Role: Primary Care Nurse Name: Cy Benjamin DO Position: [facility] Renal MD Member Role: Lifetime Consulting Physician Address: Address: [address] [facility] [place] [address]- [place] Name: Stacia Hernandez RN Position: [facility] RN Member Role: Primary Care Nurse Name: Lauren Lund RN Position: [facility] ED RN W/OE and Tasks Member Role: Primary Care Nurse Name: Paula Foss RN Position: [facility] RN Member Role: Primary Care Nurse Address: Address: [address] [place] [address]- [place] Name: Arnol Travis RN Position: [facility] RN Member Role: Primary Care Nurse Name: Nidia De Oliveira RN Position: [facility] RN Member Role: Primary Care Nurse Care Team Related Persons Name: RAFAELA ANDREWS Address: [address] [place] [address] Name: VALNETINA ARNOLD Address: home [address] [place] [address]
--- OUTSIDE RECORDS SUMMARY | 2023-12-29 21:00 | XMS_ITS | Continuity of Care Document ---
Author Organization [facility] Address [address] [place] [address]- Care Team Providers Care Furnace Installer Name Role Phone Katina Zuniga MD Primary Care Physician [facility]): 03[facility]19[facility]22 - 04/18/22 [facility] [address] [place], [place] [address] Allergies, Adverse Reactions, Alerts No Known Allergies [...] 8 11/19/12 Given 1Result Comment: Done at [facility] 2Result Comment: Done at [facility] 3Location History: [facility] 4Result Comment: [07/22/2017] [facility] [place] [phone] 5[facility] 6Result Comment: [06/12/2015] high [...] 01/03/22 11:36:00 EDT, Route to Pharmacy Electronically, [facility]/pharmacy #[id number], Partial fill upon patient requestif the prescription is for a schedule II opioid kirit... Start Date: 01/03/22 Status: Ordered divalproex sodium 500 mg oral enteric coated tablet = 500 mg, By Mouth, 2 times a day, # 60 tablet, 2 Refills, Maintenance, 04/12/22 15:12:00 EDT, Tablet, [facility]/pharmacy #[id number], Partial fill upon patient [...] Refills, Maintenance, 02/04/22 8:30:00 EDT, Ointment, [id number], Partial fill upon patient request if the [...] 13:07:00 EST, [facility]apsule, [id number] 162.56, cm, 10/10/21 12:54:00 EST, Height, 90.6, kg, 04/27/21 9:57:00 EDT, Dry Weight Start Date: 10/10/21 Status: Ordered simvastatin 20 mg oral tablet 20 mg, 1, tablet, By Mouth, Daily at bedtime, # 90 tablet, Refills 3, Tot. Refills 3, Maintenance, 01/03/22 11:37:00 EDT, [id number], 162.56, cm, 01/03/22 11:11:00 EDT, Height, 78.4, kg, 11/16/21 22:27:00 EDT,... Start Date: 01/03/22 Stop Date: 12/29/22 Status: Ordered torsemide 20 mg oral tablet 1 tablet, By Mouth, Daily, PRN NEEDED FOR LEG SWELLING, # 90 tablet, 1 Refills, [facility] STORE [id number],168, cm, 04/02/22 15:54:00 EDT, Height, 74.1, kg, 03/30/22 4:57:00 EDT, Dry Weight Start Date: 04/05/22 Status: Ordered Vitamin D3 1000 intl units oral capsule 1 capsule = 1,000 International_Units, By Mouth, Daily, # 90 capsule, 2 Refills, Maintenance, 01/03/22 11:38:00 EDT, [facility]apsule, [id number], 162.56, cm, 01/03/22 11:11:00 EDT, Height, [...] Maintenance,04/15/22 12:05:00 EDT, Route to Pharmacy Electronically, [facility]/pharmacy #[id number], let us know if not covered by [...] Team Personnel Name: Katina Zuniga MD Address: [address] [place] [address]
--- OUTSIDE RECORDS SUMMARY | 2023-12-29 21:00 | XMS_ITS | Continuity of Care Document ---
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 Name Role Phone Katina Zuniga MD Primary Care Physician [phone] [facility]counter [facility] Date[facility]s): 04/26/22 - 05/26/22 [facility] [address] [place], [place] [address] Allergies, Adverse Reactions, Alerts No [...] 8 11/19/12 Given 1Result Comment: Done at [facility] 2Result Comment: Done at [facility] 4Result Comment: [07/22/2017] [facility] [place] [phone] 5[facility] 6Result Comment: [06/12/2015] high [...] 01/03/22 11:36:00 EDT, Route to Pharmacy Electronically, [facility]/pharmacy #[id number], Partial fill upon patient requestif the prescription [...] 0 Refills, Maintenance, 02/04/22 8:30:00 EDT, Ointment, [facility]/pharmacy #[id number], Partial fill upon patient request [...] 01/03/22 11:37:00 EDT, Route to Pharmacy Electronically, [facility]/pharmacy #[id number], 162.56, cm, 01/03/22 11:11:00 EDT, Height, 78.4, kg, 11/16/21 22:27:00 EDT,... Start Date: 01/03/22 Stop Date: 12/29/22 Status: Ordered torsemide 20 mg oral tablet 1 tablet, By Mouth, Daily, PRN NEEDED FOR LEG SWELLING, # 90 tablet, 1 Refills, [facility] 60491,168, cm, 04/02/22 15:54:00 EDT, Height, 74.1, kg, 03/30/22 4:57:00 EDT, Dry Weight Start Date: 04/05/22 Status: Ordered Vitamin D3 1000 intl units oral capsule 1 capsule = 1,000 International_Units, By Mouth, Daily, # 90 capsule, 2 Refills, Maintenance, 01/03/22 11:38:00 EDT, Capsule, [facility]/pharmacy #[id number], 162.56, cm, 01/03/22 11:11:00 EDT, [...] Maintenance,04/15/22 12:05:00 EDT, Route to Pharmacy Electronically, [facility]/pharmacy #[id number], let us know if not [...] Personnel Name: Katina Zuniga MD Address: Address: [address] [place] [address]
--- OUTSIDE RECORDS SUMMARY | 2023-12-29 21:00 | XMS_ITS | Continuity of Care Document ---
Author Organization [facility] ter Address [address] [place] [id number] Care Team Providers Care Singing Messenger Name Role Phone Nadia GUNDERSON, Katina Rosado Primary Care Physician [place] [facility] Date(s): 06/25/22 - 07/02/[address] [id number] Discharge Disposition: Transfer to [facility] Facility Attending Physician: Nenita Norton MD Admitting Physician: Arthur GUNDERSON, Peace Hitchcock Referring Physician: Atif Singer MD Allergies, Adverse Reactions, Alerts No Known Allergies Immunizations Given and Recorded Vaccine Date Status Refusal Reason influenza virus vaccine, inactivated 1 06/07/22 Gi xi influenza virus vaccine, inactivated 2 06/08/18 Re corded influenza virus vaccine, inactivated 3 07/22/17 Gi xi influenza virus vaccine, inactivated 09/20/16 Ryan rded influenza virus vaccine, inactivated 07/06/14 Give n SARS-CoV-2 mRNA ([id number]) vax 02/24/22 Recorded SARS-CoV-2 (COVID-19) mRNA BNT-162b2 [...] tetanus/diphtheria/pertussis, acel(Tdap) 9 11/19/12 Given 1Result Comment: [facility] [place] [id number] [phone] 2Location History: [facility] 3Result Comment: [07/22/2017] [facility] [id number] 4Result Comment: Done at [facility] 5Result Comment: Done at [facility] 6Location History[facility] 7Result Comment: [06/12/2015] high dose 8Admin Note: VIS GIVEN 9Admin Note: vis given Medications amLODIPine 5 mg oral tablet 1 tablet = 5 mg, By Mouth, Daily, # 30 tablet, 0 Refills, Maintenance, 03/12/22 15:05:00 EDT, Tablet, Partial fill upon patient request if the prescription is for a schedule II opioid drug. Start Date: 03/12/22 Status: Ordered amLODIPine 5 mg oral tablet 5 mg, Tablet, By Mouth, 07/02/22 9:00:00 EST Start Date: 07/02/22 Stop Date: 07/02/22 Status: Completed aspirin 81 mg oral delayed release tablet [...] 3 Refills, Maintenance, 10/10/21 13:07:00 EST, ECCapsule, [facility]/pharmacy #[id number], 162.56, cm, 10/10/21 12:54:00 EST, Height, 90.6, kg, 04/27/21 9:57:00 EDT, Dry Weight Start Date: 10/10/21 Status: Ordered simvastatin 20 mg oral tablet 20 mg, 1, tablet, By Mouth, Daily at bedtime, # 90 tablet, Refills 3, Tot. Refills 3, Maintenance, 01/03/22 11:37:00 EDT, Route to Pharmacy Electronically, [facility]/pharmacy #[id number], 162.56, cm, 01/03/22 11:11:00 EDT, Height, 78.4, kg, 11/16/21 22:27:00 EDT,... Start Date: 01/03/22 Stop Date: 12/29/22 Status: Ordered torsemide 20 mg oral tablet 1 tablet, By Mouth, Daily, PRN NEEDED FOR LEG SWELLING, # 90 tablet, 1 Refills, [facility] ST[facility] [id number], cm, 04/02/22 15:54:00 EDT, Height, 74.1, kg, [...] Venous insufficiency Confirmed Active Wheezing Confirmed Active Results Radiology Reports * Exam Date Time Procedure Performing Provider Status 06/25/22 12:[address] Pelvis W/O Contrast Airam , All sina; Auth (Verified) Notes: (CT Pelvis W/O Contrast) Reason For Exam: fall, b/l pain, eval fracture;Pain RESULT: CT Pelvis W/O Contrast CT Pelvis W/O Contrast Hx of Present Illness: Fall. Pain. Evaluate for fracture. TECHNIQUE: Spiral CT without IV contrast through the pelvis only formatted in 3 planes. Enteric contrast administered. Automatic tube modulation and/or iterative dose reconstruction were used to optimize exposure parameters. CTDIvol Body: 12.05 mGy, DLP Body: 410 mGy*cm. COMPARISON: CT 04/09/2022 FINDINGS: Bones: Moderate degenerative changes of the sacroiliac joints. The pubic symphysis appears intact. No hip fracture. No CT evidence of AVM. Mild bilateral hip osteoarthritis. Soft tissues: Moderate stool retention. Small bilateral fat-containing inguinal hernias. No hematoma no joint effusion. IMPRESSION: No fracture or malalignment. WSN: [id number] Ordering Physician: Atif Singer Dictated By: Shaun Bone MD Dictated Date/Time: 06/25/22 12:49 p Reviewed By: Shaun Bone MD Signed By: Shaun Bone MD Signed Date/Time: 06/25/22 12:49 pm Transcribed By: SAPPHIRE Transcribed Date/Time: 06/25/22 12:47 pm * Exam Date Time Procedure Performing Provider Status 06/25/22 12:[address] Cervical Spine W/O Contrast Colette Ren; Auth (Verified) Notes: (CT Cervical Spine W/O Contrast) Reason For Exam: Neck trauma, dangerous injury mechanism;Other: RESULT: CT Cervical Spine W/O Contrast CT Head/Brain W/O Contrast, CT Cervical Spine W/O Contrast INDICATION: Hx of Present Illness: fall; Reason: Other:; Head trauma, mod- severe; Clinical Question(s): Hematoma TECHNIQUE: Noncontrast head CT using axial technique was reconstructed in axial and coronal planes.Noncontrast spiral CT through the cervical spine was formatted in 3 planes. Automatic tube modulation was used for the cervical spine and iterative dose reconstruction was used for both the head and cervical spine to optimize scan parameters and image quality. CTDIvol Body: 24.18 mGy, DLP Body: 521 mGy*cm. CTDIvol Head: 42.55 mGy, DLP Head: 766 mGy*cm. COMPARISON: CT head 04/09/2022 FINDINGS: Supervisor [place] Findings, Lines and Tubes: None. BRAIN AND EXTRA-AXIAL SPACES: No parenchymal hemorrhage, midline shift, or mass effect. Schaefer-white matter differentiation is wellpreserved. No acute infarct. Negative insular ribbon sign. Atherosclerotic vascular calcification of the carotid arteries but negative hyperdense vessel sign. Mild prominence of the ventricles and sulci consistent with parenchymal volume loss. Mild low-density white matter changes. No subarachnoid hemorrhage. No subdural or epidural collection. CALVARIUM, SKULL BASE, AND SOFT TISSUES: No fractures or suspicious bony lesions. The paranasal sinuses and mastoid air cells are clear. Visualized orbits and globes are intact. The extracranial soft tissues are unremarkable. CERVICAL SPINE: No fracture. No acute osseous abnormalities. Normal alignment. No locked or perched facet. Moderate multilevel degenerative disc space narrowingand end plate irregularity. OTHER BONES: No acute abnormality. CERVICAL SOFT TISSUES AND LUNG APICES: Normal soft tissues. Visualized lung apices are clear. IMPRESSION: 1. No evidence of acute intracranial abnormality. 2. No evidence of acute fracture or dislocation of the cervical spine. WSN: [id number] Ordering Physician: Atif Singer Dictated By: Zack Jj MD Dictated Date/Time: 06/25/22 12:58 p Reviewed By: Zack Jj MD Signed By: Zack Jj MD Signed Date/Time: 06/25/22 12:58 pm Transcribed By: SAPPHIRE Transcribed Date/Time: 06/25/22 12:49 pm * Exam Date Time Procedure Performing Provider Status 06/25/22 12:[address] Head/Brain W/O Contrast Airam Colette; Auth (Verified) Notes: (CT Head/Brain W/O Contrast) Reason For Exam: Head trauma, mod-severe;Other: RESULT: CT Head/Brain W/O Contrast CT Head/Brain W/O Contrast, CT Cervical Spine W/O Contrast INDICATION: Hx of Present Illness: fall; Reason: Other:; Head trauma, mod- severe; Clinical Question(s): Hematoma TECHNIQUE: Noncontrast head CT using axial technique was reconstructed in axial and coronal planes.Noncontrast spiral CT through the cervical spine was formatted in 3 planes. Automatic tube modulation was used for the cervical spine and iterative dose reconstruction was used for both the head and cervical spine to optimize scan parameters and image quality. CTDIvol Body: 24.18 mGy, DLP Body: 521 mGy*cm. CTDIvol Head: 42.55 mGy, DLP Head: 766 mGy*cm. COMPARISON: CT head 04/09/2022 FINDINGS: Supervisor [place] Findings, Lines and Tubes: None. BRAIN AND EXTRA-AXIAL SPACES: No parenchymal hemorrhage, midline shift, or mass effect. Schaefer-white matter differentiation is wellpreserved. No acute infarct. Negative insular ribbon sign. Atherosclerotic vascular calcification of the carotid arteries but negative hyperdense vessel sign. Mild prominence of the ventricles and sulci consistent with parenchymal volume loss. Mild low-density white matter changes. No subarachnoid hemorrhage. No subdural or epidural collection. CALVARIUM, SKULL BASE, AND SOFT TISSUES: No fractures or suspicious bony lesions. The paranasal sinuses and mastoid air cells are clear. Visualized orbits and globes are intact. The extracranial soft tissues are unremarkable. CERVICAL SPINE: No fracture. No acute osseous abnormalities. Normal alignment. No locked or perched facet. Moderate multilevel degenerative disc space narrowingand end plate irregularity. OTHER BONES: No acute abnormality. CERVICAL SOFT TISSUES AND LUNG APICES: Normal soft tissues. Visualized lung apices are clear. IMPRESSION: 1. No evidence of acute intracranial abnormality. 2. No evidence of acute fracture or dislocation of the cervical spine. WSN: [id number] Ordering Physician: Atif Singer Dictated By: Zack Jj MD Dictated Date/Time: 06/25/22 12:58 p Reviewed By: Zack Jj MD Signed By: Zack Jj MD Signed Date/Time: 06/25/22 12:58 pm Transcribed By: SAPPHIRE Transcribed Date/Time: 06/25/22 12:49 pm * Exam Date Time Procedure Performing Provider Status 06/25/22 12:34 PM Chest Portable Ranjeet Luly; Auth ( Verified) Notes: (Chest Portable) Reason For Exam: ground level fall;Other: RESULT: Chest Portable Chest Portable Hx of Present Illness: fall; Reason: Other:; ground level fall; Clinical Question(s): Trauma / Trauma COMPARISON: 06/07/2022 FINDINGS: LINES AND TUBES: None. LUNGS AND PLEURA: Clear lungs. Normal pulmonary vascularity. No pleural effusion. No pneumothorax. HEART, MEDIASTINUM AND EDER: Heart is normal in size. Normal mediastinal and hilar contour. BONES AND SOFT TISSUES: No acute abnormality. Bilateral chest wall surgical clips. IMPRESSION: No evidence of acute abnormality. WSN: [id number] Ordering Physician: Atif Singer Dictated By: Zack Jj MD Dictated Date/Time: 06/25/22 12:42 p Reviewed By: Zack Jj MD Signed By: Zack Jj MD Signed Date/Time: 06/25/22 12:42 pm Transcribed By: SAPPHIRE Transcribed Date/Time: 06/25/22 12:41 pm Vital Signs Most recent to oldest [Reference Range]: 1 2 3 4 Height 161 cm (07/02/22 7:30 AM) 161 cm (07/01/22 7:44 PM) 161 cm (07/01/22 7:52 AM) Weight 73 kg (06/28/22 4:35 PM) 60 kg (06/28/22 5:14 AM) 60 kg (06/27/22 6:17 AM) Oxygen Saturation [94-100 %] 98 % (07/02/22 7:30 AM) 92 % *L* (07/01/22 7:44 PM) 95 % (07/01/22 12:00 PM) Pulse Rate [55-90 bpm] 66 bpm (07/02/22 7:30 AM) 83 bpm (07/01/22 7:44 PM) 86 bpm (07/01/22 12:00 PM) Body Mass Index [18.5-24.99 kg/m2] 28.16 kg/m2 *H* (06/28/22 4:35 PM) 23.15 kg/m2 (06/28/22 5:14 AM) 23.15 kg/m2 (06/27/22 6:17 AM) Blood Pressure [90-138/55-84 mm Hg] 137/82mm Hg (07/02/22 9:00 AM) 137/82mm Hg (07/02/22 7:30 AM) 147/73mm Hg *H* (07/01/22 7:44 PM) Respiratory Rate [16-30 br/min] 18 br/min (07/02/22:30 AM) 18 br/min (07/01/22:44 PM) 16 br/min (07/01/22 12:00 PM) Temperature [96.8-100.4 DegF] 97.4 DegF (07/02/22 7:30 AM) 98.1 DegF (07/01/22 7:44 PM) 97.5 DegF (07/01/22 12:00 PM) Liters per Minute 3 L/min (06/28/22 3:10 PM) 3 L/min (06/28/22 8:25 AM) 3 L/min (06/28/22 5:14 AM) 3 L/min (06/28/22 5:14 AM) Mode of Delivery (Oxygen) Room air (07/02/22 7:30 AM) Room air (07/01/22 7:44 PM) Room air (07/01/22 12:00 PM) Blood pressure sites Arm, left (07/02/22 7:30 AM) Arm, left (07/01/22 7:44 PM) Arm, left (07/01/22 12:00 PM) Temperature Route Oral (07/02/22 7:30 AM) Oral (07/01/22 7:44 PM) Oral (07/01/22 12:00 PM) Dry Weight 73 kg (06/28/22 4:35 PM) 60 kg (06/28/22 5:14 AM) 60 kg (06/27/22 6:17 AM) Social History Social History Type Response Smoking Status Former smoker, quit more than 30 days ago entered on: 11/16/21 Sex Admission evaluation note * Colette GUNDERSON, Azul Brooks: PERFORM Event Display: Admission Note Authored Date: Patient: ??JING ANDREWS ? Age:??77 Years?Sex:??Female?:??1945?? Chief Complaint/Reason for Consultation AMS History of Present Illness ?? Patient is a poor historian and does not remember events leading up to hospitalization so hx taken from chart review: 77 yo F with hx of MDD, DMII, GERD, HTN, HLD, TIA, bipolar disorder, breast cancer status post bilateral mastectomy in 2008 who presented??after a fall at home.?? While in the ED was medically cleared after??unremarkable imaging, EKG, and labs but was very paranoid and endorsing beliefs that her family was trying to harm her.?? Per collateral from patient's therapist, Carlo Rodgers, patient has been admitted to [facility] twice in the last 2 months with her psychiatric medications changed.?? Radhames most recent discharge, her psychiatric condition has worsened, with increased paranoid delusions that her sister is trying to kill her. Patient has been refusing entry to her apartment to [facility]NA that typically assists Jing with medications. He does not believe that Jing has been adherent with her psychotropic medications. Upon assessment today, patient exhibits disorganized speech and??tangential thought??process.?? Shestates that she lives??with her daughter??who usually helps her with everything.?? She??denies not wanting her VNA to help her in the house.?? The only thing she feels is bothering her right now is her L upper back.?? She does not want to raise her R??arm above her head but cannot say if it is due to weakness or pain. ?? Review of Systems ?? Constitutional:??No weight loss, fever, chills, weakness or fatigue. HEENT:??No visual loss, blurred vision, double vision or yellow sclera. No hearing loss, sneezing, congestion, runny nose or sore throat. Skin:??No rash or itching. Cardiovascular:??no chest pain Respiratory:??No shortness of breath, cough or sputum production. Gastrointestinal:??No anorexia, nausea, vomiting or diarrhea. No abdominal pain or blood in stool. Genitourinary:??No burning micturition. No urinary frequency or incontinence. Neurologic:??No headache, dizziness, syncope, unilateral weakness, ataxia, numbness or tingling in the extremities. No change in bowel or bladder control. Musculoskeletal:??+ L upper back pain Hematologic:??No bleeding or bruising. Psychiatric:??No depression or anxiety. Endocrine:??No reports of sweating. No cold or heat intolerance. No polyuria or polydipsia. Objective Measurements?? Height: 161 cm (06/28/22) Weight: 73 kg (06/28/22) Dry Weight: 73 kg (06/28/22) Body Mass Index:??28.16 kg/m2??High (06/28/22) ? Vital Signs?? Temperature: 97.4 DegF (06/28/22 16:35:00) Temperature Route: Oral (06/28/22 16:35:00) Pulse Rate: 73 bpm (06/28/22 16:35:00) Respiratory Rate: 17 br/min (06/28/22 16:35:00) Systolic Blood Pressure:??144 mm Hg??High (06/28/22 16:35:00) Diastolic Blood Pressure: 75 mm Hg (06/28/22 16:35:00) Blood pressure sites: Arm, right (06/28/22 16:35:00) Mean Arterial Pressure: 98 mm Hg (06/28/22 16:35:00) Pulse Pressure: 69 mm Hg (06/28/22 16:35:00) Oxygen Saturation: 97 % (06/28/22 16:35:00) Liters per Minute: 3 L/min (06/28/22 15:10:00) Mode of Delivery (Oxygen): Room air (06/28/22 16:35:00) Early Warning Score: 2 (06/28/22 17:00:36) ? Intake/Output? No Data Available ?? Mobility & Ambulation Level Mobility & Ambulation Level Ambulatory devices needed: Walker (06/28/22) ? Physical Exam ?? Constitutional: Alert, in no acute distress. Head EENT: Extraocular muscle movement intact.??Moist mucous membranes.?? Neck: Supple. No JVD. Respiratory: Clear to auscultation. No wheezing or crackles. No use of accessory muscles. Cardiovascular: S1S2 regular. No murmurs, rubs or gallops. Gastrointestinal: Abdomen soft, non-tender, non-distended. Normal bowel sounds. Genitourinary: No CVA tenderness. Extremities: No lower extremity pitting??edema. No cyanosis or clubbing. Neurologic: AAOx2, Speech normal. 4/5 strength b/l UEs but likely effort dependent Skin: No rash. Psychiatric: Tangential Assessment/Plan Diagnoses ?? 77 yo F with hx of MDD, DMII, GERD, HTN, HLD, TIA, bipolar disorder, breast cancer status post bilateral mastectomy in 2008 who presented??after a fall at home and was medically cleared but due to??concern for psychosis was admitted for [facility]??bed search. ?? #Psychosis Patient currently calm and cooperative though speech??continues to be tangential.?? Does not appearto remember??falling.?? Psych consulted in the ER and and recommended the following:?- Resume home dose of Depakote 500 mg PO twice daily with further optimization as indicated for psychosis/mood stabilization. ??Resume home dose of Zyprexa 5 mg PO daily at bedtime with further??optimization as indicated for psychosis/mood stabilization. ?? - Hold Lamictal as it is unclear whether patient was adherent with this medication and due to??documented report of rash on previous Lamictal trial. - PRN medications: Vistaril 25 mg PO q6h PRN??for anxiety, Trazodone 25-50 mg PO qHS PRN for sleep. - Can also utilize Zyprexa 2.5-5 mg PO/IM Q6H PRN agitation/psychosis.??The preference is for PO medications, but if the patient refuses the oral medications and there is sufficient acute safety concern, can judiciously utilize IM equivalents for severe agitation. No additional changes made to sched uled psychotropic medications at this time. - Would note that these medications are only being utilized in the ER while the patient awaits placement. Long-term need for these medications will need to be assessed by the patient's future treating psychiatrist. Disposition is ultimately deferred to [facility] Crisis services.?? -??Disposition as per Crisis ?? #Back??pain Likely sore from fall.?? If??no improvement in pain by tomorrow would consider imaging of L shoulder.?? CT c-spine unremarkable. -Lido patch -Tylenol prn ?? Known Medical Problems ?? #HTN- Continue home amlodipine #Leg swelling- Continue home Torsemide #HLD-??Holding home Simvastatin given interaction with amlodipine.?? Can switch to other statin if within??goals of care #DMII- Continue home metformin and start LUISITO?? #GERD- Pantoprazole for home Omeprazole ?? I have spent??45 minutes on patient care, chart review and documentation? Azul Alvarenga MD Histories Allergies Allergies ?(Active and Proposed Allergies Only) NKA? (Severity: Unknown severity, Onset: Unknown) ? Past Medical History/Problem List Active Problems??(20) Bipolar disorder Bipolar disorder CKD (chronic kidney disease) Depression Diabetes Diabetes mellitus Esophageal reflux (GERD) Fall Hypertension Leg swelling Obesity Osteopenia with high risk of fracture pTis: Ductal carcinoma in situ (breast) Pure hypercholesterolemia TIA (transient ischemic attack) Trauma Tremors of nervous system Urinary urgency Venous insufficiency Wheezing ? Past Surgical History Colonoscopy, flexible; diagnostic, including collection of specimen(s) by brushing or washing, whenperformed (separate procedure): 05/16/20 Colonoscopy, flexible, proximal to splenic flexure; with removal of tumor(s), polyp(s), or other lesion(s) by snare technique: 12/05/14 B mastectomy 2009: 2009 ? Social History Alcohol Details:??Use: Past. Details:??Frequency: Daily. ??Type: Wine. ??Other: 1-2 glass per day. 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 Exercise Details:??Self assessment: Fair condition. Home/Environment Details:??Lives with: Alone. Nutrition/Health Details:??Diet: Regular. Sexual Details:??Sexually involved in last 6 months: No. Substance Abuse Details:??Use: Never. Details:??Use: Never. Tobacco Details:??Use: Former smoker, quit more than 30 days ago. Details:??Other: 1 pack per day for 40 years. Details:??Former smoker, Other: quit 2012. Details:??Former smoker, Tobacco user in household: Yes. ??Other: Quit 2012. Electronic Cigarette/Vaping Details:??Electronic Cigarette Use: Never. Details:??Electronic Cigarette Use: couple times a week. ? Psychosocial History ? Family History Father: Coronary artery disease; Defibrillator; Heart disease; Hypertension Brother: Histiocytosis X; [place] - Myocardial infarction Sister (): Anal cancer ? 30-OCT-2013 07:27:07<$> Other: Cancer of colon Brother: Heart attack; Heart disease; Hypertension Sister: Hyperlipidemia Other: Cancer of breast; Cancer of colon; Diabetes mellitus type II ? Medications Home Medications Amlodipine (amLODIPine 5 mg oral tablet)?1?tab(s)?5?Milligram?By Mouth?Daily Aspirin (aspirin 325 mg oral delayed release tablet)?325?Milligram?1?tablet?By Mouth?Daily Cholecalciferol (Vitamin D3 1000 intl units oral capsule)?1?capsule?1,000?InternationalUnit?By Mouth?Daily Divalproex Sodium (divalproex sodium 500 mg oral enteric coated tablet)?TAKE 1 TABLET BY MOUTH TWICE A DAY Durable Medical Equipment (Freestyle Lite Monitor)?See Instructions?DX: E11.9USE THREE TIMES PER DAY Durable Medical Equipment (Freestyle Lite Test Strips)?See Instructions?for 30?Days?dx:E11.9USE THREE TIMES PER DAY Durable Medical Equipment (Freestyle Lite Lancets)?See Instructions?DX: E11.9USE THREE TIMES PER DAY Durable Medical Equipment (Walker)?See Instructions?Ht: 162.56cmWt: 83.1kgDX: osteoarthritis M19.90Length of Need: x99 Lamotrigine (lamotrigine 25 mg oral tablet)?TAKE 2 TABLETS BY MOUTH 2 TIMES A DAY FOR 30 DAYS Lanolin Topical (lanolin topical - ointment)?1?mustapha?Topically?3 times a day?as needed?as needed for dry skin Metformin (MetFORMIN (Eqv-Glucophage XR) 500 mg oral tablet, extended release)?TAKE 1 TABLET BY MOUTH EVERY DAY Miscellaneous Rx (freestyle kip sensors 14 day)?See Instructions?use three times per daydx:E11.9 Miscellaneous Rx (FREESTYLE KIP TESTING MONITOR)?See Instructions?PLEASE USE TO CHECK BG DAILY FOR DX: E11.9FREETYLE KIP SENSOR Olanzapine (olanzapine 5 mg oral tablet)?5?Milligram?1?tablet?By Mouth?Daily Omeprazole (omeprazole 20 mg oral enteric coated capsule)?1?capsule?20?Milligram?By Mouth?Daily Simvastatin (simvastatin 20 mg oral tablet)?20?Milligram?1?tablet?By Mouth?Daily at bedtime?for 90?Days torsemide (torsemide 20 mg oral tablet)?1?tab(s)?By Mouth?Daily?as needed? NEEDED FOR LEG SWELLING Trazodone (traZODone 50 mg oral tablet)?50?Milligram?1?tablet?By Mouth?Daily at bedtime ? Inpatient Medications Medications (22) Active SCHEDULED: (10) Amlodipine 5 mg Tablet (amLODIPine 5 mg oral tablet) ??5 mg, By Mouth, Daily Aspirin 81 mg EC Tablet (aspirin 81 mg oral delayed release tablet) ??81 mg, By Mouth, Daily Divalproex 500 mg Tablet (Depakote Tablet) ??500 mg, By Mouth, 2 times a day MetFORMIN 500 mg ER Tablet (metFORMIN 500 mg oral tablet, extended release) ??500 mg, By Mouth, Daily NaCl 0.9% Flush 3ml (NaCL 0.9% Flush) ??3 mL, IV Push, Every 8 hours Olanzapine 5 mg Tablet (olanzapine 5 mg oral tablet) ??5 mg, By Mouth, Daily at bedtime Pantoprazole 40 mg EC Tablet (pantoprazole 40 mg oral delayed release tablet) ??40 mg, By Mouth, Daily Remove Patch (Remove Lidocaine Patch) ??1 each, Topically, Daily at bedtime Torsemide 20 mg tablet (torsemide 20 mg oral tablet) ??20 mg 1 tablet, By Mouth, Daily Vitamin D 1000 IU Tablet (cholecalciferol 1000 intl units oral tablet) ??1,000 International_Units,By Mouth, Daily CONTINUOUS: (0) PRN: (12) Acetaminophen 325 mg Tablet (Acetaminophen Tablet) ??650 mg, By Mouth, Every 8 hours Acetaminophen 325 mg Tablet (Acetaminophen Tablet) ??650 mg, By Mouth, Every 4 hours Al hydroxide/Mg hydroxide/simethicone 200 mg-200 mg-20 mg/5 mL Susp UD (Maalox Plus Liquid) ??30 mL, By Mouth, Every 8 hours Dextromethorphan-Guaifenesin 20 mg-200 mg/10 mL Liqu UD (Robitussin DM Liquid) ??10 mL, By Mouth, Every 4 hours HydrOXYzine Pamoate 25mg Capsule (Vistaril Capsule) ??25 mg, By Mouth, Every 6 hours Melatonin 3 mg Tablet (Melatonin Tablet) ??9 mg, By Mouth, Daily at bedtime NaCl 0.9% Flush 3ml (NaCL 0.9% Flush) ??3 mL, IV Push, Every 8 hours Olanzapine 2.5 mg Tablet (olanzapine 2.5 mg oral tablet) ??2.5 mg, By Mouth, Every 6 hours Polyethylene Glycol 17 Gm Powder (MiraLax Powder) ??17 Gm 1 pack/packet, By Mouth, Daily Senna 8.6 mg / Docusate 50 mg tablet (Docusate/Senna Tablet) ??1 tablet, By Mouth, 2 times a day Simethicone 80 mg Chewable Tablet (Simethicone Tablet) ??80 mg, Chew, 3 times a day Trazodone 50 mg Tablet (traZODone 50 mg oral tablet) ??50 mg, By Mouth, Daily at bedtime ? Vaccinations and Immunoprophylaxis influenza virus vaccine, inactivated: 0.7 mL (06/07/22 11:44:00) influenza virus vaccine, inactivated: 0 Unknown (06/08/18 12:00:00) influenza virus vaccine, inactivated: 0.5 mL (07/22/17 17:02:00) influenza virus vaccine, inactivated: 0.5 Unknown (09/20/16 07:00:00) influenza virus vaccine, inactivated: 0.5 mL (07/06/14 15:19:00) pneumococcal 13-valent vaccine: 0 Unknown (01/11/16 00:00:00) pneumococcal 23-valent vaccine: 0.5 mL (11/19/12 13:53:00) SARS-CoV-2 (COVID-19) mRNA BNT-162b2 vac: 0.3 Unknown (07/02/21 07:00:00) SARS-CoV-2 (COVID-19) mRNA BNT-162b2 vac: 0 Unknown (11/09/20 00:00:00) SARS-CoV-2 (COVID-19) mRNA BNT-162b2 vac: 0 Unknown (10/17/20 00:00:00) SARS-CoV-2 mRNA (hvilemw-xlaa-qkbxa) vax: 0.3 Unknown (02/24/22 08:00:00) tetanus/diphtheria/pertussis, acel(Tdap): 0.5 mL (11/19/12 13:53:00) Zoster Vaccine Live: 0.65 Unknown (12/25/12 08:00:00) zoster vaccine, inactivated: 0.5 Unknown (06/03/19 08:00:00) zoster vaccine, inactivated: 0 Unknown (03/15/19 12:00:00) Fluzone Preservative-Free (oldterm): 0 Unknown (06/09/15 00:00:00) Influenza Virus Vaccine (oldterm): 0 Unknown (06/14/21 00:00:00) Influenza Virus Vaccine (oldterm): 0 Unknown (05/26/19 12:00:00) Influenza Virus Vaccine (oldterm): 0.5 mL (05/25/13 13:26:00) ?? Results Recent Labs No labs resulted between 06/27/2022 00:00 and 06/28/2022 17:49? EKG study * Event Display: ECG 12-Lead Authored Date: Please click on pdf link to open report * Event Display: ECG 12-Lead Authored Date: Ventricular Rate: 76 BPM Atrial Rate: 76 BPM P-R Interval: 166 ms QRS Duration: 104 ms Q-T Interval: 386 ms QTC Calculation(Bazett): 434 ms P [place]: 43 degrees R [place]: 38 degrees T [place]: 48 degrees Normal sinus rhythm Normal ECG When compared with ECG of 08-APR-2022 22:44, Premature ventricular complexes are no longer Present Confirmed by SHAREE EDWARDS ([id number]) on 06/25/2022 11:45:47 AM [place]: SHAREE EDWARDS [facility] Progress note * Edna Tom RN: PERFORM, SIGN, VERIFY Event Display: Progress Note Hospital Authored Date: Patient: JING ANDREWS Age: 77 years Sex: Female : 1945 Associated Diagnoses: None Author: Edna Tom RN Findings Assumed care of patient at 0700. She was sleeping in bed with no obvious distress noted. Frequent/hourly rounds will be maintained on my shift. Call girard in reach and belongings at bedside. Bed in lowest locked position. 1000 Patient assisted to the shower. No complaints at this time. [facility] and patient is adamantly refusing, threatening tocall her transitional care manager and the police. transport will be arriving at 3PM and security will be here to safely transfer her off the floor. * Mily Stein RN: PERFORM, SIGN, VERIFY Event Display: Progress Note Hospital Authored Date: Patient: JING ANDREWS Age: 77 years Sex: Female : 1945 Associated Diagnoses: None Author: Mily Stein RN Findings Nursing Data Vital Signs : VITAL SIGNS SECTION 07/01/2022 19:44 EST Temperature 98.1 DegF Temperature Route Oral Pulse Rate 83 bpm Respiratory Rate 18 br/min Systolic Blood Pressure 147 mm Hg H Diastolic Blood Pressure 73 mm Hg Blood pressure sites Arm, left Mean Arterial Pressure 98 mm Hg Pulse Pressure 74 mm Hg Oxygen Saturation 92 % L (Modified) Mode of Delivery (Oxygen) Room air . Narrative/Incidental Pt is A&Ox3. Pt continues to refuse blood sugar POCs. A member from bed search called this shift, stating their was bed availability for pt to leave tonight. No discharge order entered in the system. Provider Ildefonso Hodgson notified. Miscommunication as pt had plan to leave evening of this shift. Currently pending d/c to [facility]. To be addressed in AM. Frequent rounding and safety measures in place. See flow sheet for full assessment.. * Edna Tom RN: PERFORM, SIGN, VERIFY Event Display: Progress Note Hospital Authored Date: Patient: JING ANDREWS Age: 77 years Sex: Female : 1945 Associated Diagnoses: None Author: Edna Tom RN Findings assumed care of patient at 0700. Patient very upset and yelling that she needs to go home because she wants to vote. Respirations easy and unlabored and no shortness of breath noted at this time. Assisted OOB to bathroom and then to chair with bed alarm on. Frequent/hourly rounding will be maintained. Call girard in reach and belongings at bedside Discharge Information Rehabilitation Discharge : Rehab Discharge Index 06/26/2022 8:52 EDT Comments on treatment indicated Pt functioning at mobility baseline. Not at increased risk for falls. Should continue to use RW Walker: distance >50 Full chart review completed Yes Hospital course 06/26: Pt refused. Other findings Pt demo no pain, SOB, LOB during evaluation. Good safety awareness and stability during transfers and ambulation. Previous fall unlikely to have been mechanical in nature. Note * Luly Posey RN: PERFORM Event Display: Discharge/Transfer Note Hospital Authored Date: Nursing Discharge Note Entered On: 07/02/2022 15:21 EST Performed On: 07/02/2022 15:20 EST by Luly Posey RN Nursing Discharge Note 2 Discharge Time : 07/02/2022 15:19 EST Discharge Level of Care at Discharge : Inpatient Rehab Facility/Unit Patient Left Unit Via : Ambulance Patient Accompanied Off Unit with : Ambulance/Chair Van Personnel Handover Given to Transport Personnel : Yes DC Instructions Provided & Signed by Pt : Unable Patient Understands D/C Instructions : Unable Patient Instructions Discharge Signed : Yes Did Pt have Specialty Bed or Wound Vac : No Luly Posey RN - 07/02/2022 15:20 EST * Bridget Castro MD: MODIFY, MODIFY, MODIFY, MODIFY, PERFORM Event Display: Discharge/Transfer Note Hospital Authored Date: Patient: ??JING ANDREWS ? Age:??77 Years?Sex:??Female?:??1945?? Patient Information Discharge Location: [facility] Primary Care Physician: Katina Zuniga MD Admit Date/Time: 06/25/22 10:39 Discharge Date:??07/02/2022 10:07 Discharge Disposition Discharge Disposition: [facility] Facility/Rehab??[facility] - Geriatric Psychiatry Discharge Diagnosis Bipolar disorder Diabetes mellitus Hypertension Leg swelling TIA (transient ischemic attack) _ Discharge Medications Amlodipine (amLODIPine 5 mg oral tablet)?1?tab(s)?5?Milligram?By Mouth?Daily Aspirin (aspirin 81 mg oral delayed release tablet)?81?Milligram?By Mouth?Daily Divalproex Sodium (divalproex sodium 500 mg oral enteric coated tablet)?1?tab(s)?500?Milligram?By Mouth?2 times a day Durable Medical Equipment (Freestyle Lite Monitor)?See Instructions?DX: E11.9USE THREE TIMES PER DAY Durable Medical Equipment (Freestyle Lite Test Strips)?See Instructions?for 30?Days?dx:E11.9USE THREE TIMES PER DAY Durable Medical Equipment (Freestyle Lite Lancets)?See Instructions?DX: E11.9USE THREE TIMES PER DAY Durable Medical Equipment (Walker)?See Instructions?Ht: 162.56cmWt: 83.1kgDX: osteoarthritis M19.90Length of Need: x99 Enoxaparin?0.3?Milliliter?30?Milligram?Subcutaneous Injection?Daily Insulin Lispro?2-10 units?Subcutaneous Injection?3 times a day before meals?<< Sliding Scale Comments >>150 - 199 ?? 2 units Call if less than [id number] - 249 ?? 4 units 250 - 299?? 6 units 300 - 349 ?? 8 units 350 - 399 ?? 10 units Call if greater than 400<< Sliding Scale Comments >> Miscellaneous Rx (freestyle kip sensors 14 day)?See Instructions?use three times per daydx:E11.9 Miscellaneous Rx (FREESTYLE KIP TESTING MONITOR)?See Instructions?PLEASE USE TO CHECK BG DAILY FOR DX: E11.9FREETYLE KIP SENSOR Olanzapine (olanzapine 2.5 mg oral tablet)?2.5?Milligram?1?tablet?By Mouth?Every 6 hours?as needed?Agitation Olanzapine (olanzapine 5 mg oral tablet)?5?Milligram?1?tablet?By Mouth?Daily at bedtime Omeprazole (omeprazole 20 mg oral enteric coated capsule)?1?capsule?20?Milligram?By Mouth?Daily Simvastatin (simvastatin 20 mg oral tablet)?20?Milligram?1?tablet?By Mouth?Daily at bedtime?for 90?Days torsemide (torsemide 20 mg oral tablet)?1?tab(s)?By Mouth?Daily?as needed? NEEDED FOR LEG SWELLING Trazodone (traZODone 50 mg oral tablet)?50?Milligram?1?tablet?By Mouth?Daily at bedtime?as needed?Sleep Medications Started Insulin Lispro?2-10 units?Subcutaneous Injection?3 times a day before meals?<< Sliding Scale Comments >>150 - 199 ?? 2 units Call if less than [id number] - 249 ?? 4 units 250 - 299?? 6 units 300 - 349 ?? 8 units 350 - 399 ?? 10 units Call if greater than 400<< Sliding Scale Comments >> Olanzapine (olanzapine 2.5 mg oral tablet)?2.5?Milligram?1?tablet?By Mouth?Every 6 hours?as needed?Agitation Medications Discontinued Metformin Doses Changed None Allergies Allergies ?(Active and Proposed Allergies Only) NKA? (Severity: Unknown severity, Onset: Unknown) PCP Follow-Up/Heads-Up Pt presenting with a fall at home, medically cleared. Now transferring to [facility] - Geriatric Psychiatry Unit due to psychosis and recent worsening of psychiatric condition over the last month. Future Appointments Friday 1:40 PM EST ?? With: Nadia GUNDERSON, Katina Rosado Where: [facility] [address] [place] [address]- Hospital Course Pt is a 77 yo F with hx of MDD, DMII, GERD, HTN, HLD, TIA, bipolar disorder, breast cancer status post bilateral mastectomy in 2008 who presented after a fall at home and was medically cleared but due to concern for psychosis was admitted for a geriatric psych bed search, now being transferred to [facility].? Psychosis Bipolar Disorder ??In the ED, pt was paranoid and endorsing beliefs that her family was trying to harm her. Per collateral from patient's therapist, Carlo Rodgers, patient has been admitted to [facility] inthe last 2 months with her psychiatric medications changed (lithium was discontinued due to concernfor liver toxicity). Since her??most recent discharge, her psychiatric condition has worsened, with increased paranoid delusions that her sister is trying to kill her. Patient has been refusing entryto her apartment to [facility] that typically assists Jing with medications.??Mr. Rodgers??does not believe that Jing has been adherent with her psychotropic medications. During the hospitalization, patient has been??calm and cooperative though speech continues to be tangential.??She has been refusing medications while hospitalized. Recommendations:?-Home dose of Depakote 500 mg PO twice daily with further optimization as indicated for psychosis/mood stabilization. ?-Home dose of Zyprexa 5 mg PO daily at bedtime with further optimization as indicated for psychosis/mood stabilization. ??- Hold Lamictal as it is unclear whether patient was adherent with this medication and due to documented report of rash on previous Lamictal trial. ??- PRN medications: 2.5mg Olanzapine PRN q6, Trazodone 25-50 mg PO qHS PRN for sleep. ??- Long-term need for these medications will need to be assessed by the patient's future treating psychiatrist. ?? Back Pain ??Likely sore from fall.??Imaging showing no acute fracture. Recommendations:?-Lidocaine patch ??-Tylenol as needed ?? CKD ??Baseline Cr 1.5-1.7, discharge Cr 1.7. Recommendations: ??-Avoid??nephrotoxic agents?-Holding metformin ??-Daily BUN/Cr ?HTN- Continue home amlodipine ??Leg Swelling- Continue home Torsemide ??HLD-??Continue simvastatin ??DMII-??Discontinue metformin due to??baseline elevated Cr. Continue SS Insulin Lispro. Consider resuming metformin pending slight improvement in renal function pending further management. ??GERD- Resume home Omeprazole (on pantoprazole during hospitalization) ??TIA??-??Continue Aspirin ?? Objective Measurements?? Height: 161 cm (07/02/22) Weight: 73 kg (06/28/22) Dry Weight: 73 kg (06/28/22) Body Mass Index:??28.16 kg/m2??High (06/28/22) ?? Vital Signs?? Temperature: 97.4 DegF (07/02/22 07:30:00) Temperature Route: Oral (07/02/22 07:30:00) Pulse Rate: 66 bpm (07/02/22 07:30:00) Respiratory Rate: 18 br/min (07/02/22 07:30:00) Systolic Blood Pressure: 137 mm Hg (07/02/22 07:30:00) Diastolic Blood Pressure: 82 mm Hg (07/02/22 07:30:00) Blood pressure sites: Arm, left (07/02/22 07:30:00) Mean Arterial Pressure: 100 mm Hg (07/02/22 07:30:00) Pulse Pressure: 55 mm Hg (07/02/22 07:30:00) Oxygen Saturation: 98 % (07/02/22 07:30:00) Mode of Delivery (Oxygen): Room air (07/02/22 07:30:00) Early Warning Score: 2 (07/02/22 08:28:59) ?? Intake/Output? 06/25 10:39 07/02 07:00 07/01 07:00 06/30 07:00 06/29 07:00 ?? 07/02 10:06 07/02 10:06 07/02 06:59 07/01 06:59 06/30 06:59 Intake ? 2620 ?0 ?720 ?900 ?760 Output ?0 ?0 ?0 ?0 ?0 Net Total ? 2620 ?0 ?720 ?900 ?760 ? Urine Count ? 16 ?0 ?2 ?6 ?8 . Physical Exam General: Well appearing. In no distress Head: NCAT. Scalp without any lesions. Eyes: [place] conjunctiva. Anicteric sclera. Ears: Bilateral pinnae without discharge or lesions. Nose:?? No discharge or congestion. Throat/Mouth: MMM. Oral mucosa was pink and without any lesions. Cardiovascular: Physiologic S1 and S2. No murmurs, rubs or gallops could be auscultated. Respiratory: CTA bilaterally with good inspiratory effort and symmetric chest wall movement. No wheezes, rales, or rhonchi. Abdominal: Positive bowel sounds in all four quadrants. No tenderness to palpation. No rebound or guarding. Vascular: No edema or varicose veins. Neurologic: Awake and alert. Psych: Pleasant and cooperative, speech is tangential. Consultants Psychiatry Pending Results None Follow-Up Appointments Added Follow Up ?Time Frame ?Comments Nadia GUNDERSON, Katina Rosado?Please attend your scheduled PCP appointment on 07/30/22 at 1:40 PM. Patient Instructions You were brought to the hospital due to a fall. Imaging showed no acute injuries. Please follow up with your PCP either at the 07/30/22 appointment or earlier if needed. You were also found to have delusions of paranoia for which you will have further management at [facility] at their Geriatric Psychiatry Unit. Results Discharge Labs BLOOD COUNT & DIFF WBC 6.3 k/mm3 ()?? 06/25/2022 11:35 RBC 4.04 m/mm3 (Low)?? 06/25/2022 11:35 Hgb 12.4 Gm/dL ()?? 06/25/2022 11:35 Hct 39.1 % ()?? 06/25/2022 11:35 MCV 96.8 femtoliters ()?? 06/25/2022 11:35 MCH 30.7 pg ()?? 06/25/2022 11:35 MCHC 31.7 g/dL (Low)?? 06/25/2022 11:35 Platelet Count 193 k/mm3 ()?? 06/25/2022 11:35 RDW-SD 48.3 femtoliters (High)?? 06/25/2022 11:35 MPV 10.5 femtoliters ()?? 06/25/2022 11:35 Nucleated RBC (Automated) 0.0 #/100 WBC'S ()?? 06/25/2022 11:35 Abs. NRBC 0.0 k/mm3 ()?? 06/25/2022 11:35 Abs. Neut 4.7 k/mm3 ()?? 06/25/2022 11:35 Abs. Lymph 1.1 k/mm3 ()?? 06/25/2022 11:35 Abs. Clinch 0.4 k/mm3 ()?? 06/25/2022 11:35 Abs. Eo 0.1 k/mm3 ()?? 06/25/2022 11:35 Abs. Baso 0.0 k/mm3 ()?? 06/25/2022 11:35 Neut % 74.3 % ()?? 06/25/2022 11:35 Lymph % 17.4 % ()?? 06/25/2022 11:35 Clinch % 5.8 % ()?? 06/25/2022 11:35 Eos % 1.7 % ()?? 06/25/2022 11:35 Baso % 0.5 % ()?? 06/25/2022 11:35 Imm Gran 0.3 % ()?? 06/25/2022 11:35 Abs. Imm Gran 0.0 k/mm3 ()?? 06/25/2022 11:35 ?? CARDIAC Troponin T Quant <0.01 ng/mL ()?? 06/25/2022 15:14 ? CHEM GENERAL Sodium 142 mmol/L ()?? 06/30/2022 06:53 Potassium 3.8 mmol/L ()?? 06/30/2022 06:53 Chloride 103 mmol/L ()?? 06/30/2022 06:53 Bicarbonate Level 24 mmol/L ()?? 06/30/2022 06:53 Anion Gap 15 ()?? 06/30/2022 06:53 Glucose Level 89 mg/dL ()?? 06/30/2022 06:53 Glucose, POC 80 mg/dL ()?? 07/02/2022 08:07 BUN 54 mg/dL (High)?? 06/30/2022 06:53 Creatinine-Blood 1.7 mg/dL (High)?? 06/30/2022 06:53 Estimated GFR Creatinine 31 ML/MIN/1.73 M2 ()?? 06/30/2022 06:53 Calcium 10.1 mg/dL ()?? 06/30/2022 06:53 AST (SGOT) 17 units/L ()?? 06/25/2022 15:14 ALT (SGPT) 9 units/L ()?? 06/25/2022 15:14 ? HEME OTHER Hold Lavender Top SPECIMEN DISCARDED AFTER 24 HOURS. ()?? 06/30/2022 06:53 ? MISC. CHEMISTRY Hold Green Top SPECIMEN DISCARDED AFTER 1 WEEK ()?? 06/25/2022 15:14 ? TOXICOLOGY/TDM Ethanol, Serum or Plasma NONE DETECTED mg/dL ()?? 06/25/2022 15:14 [place] Level <0.1 mmol/L (Low)?? 06/25/2022 15:14 Salicylate Level <0.3 mg/dL (Low)?? 06/25/2022 15:14 Valproic Level 31.6 mg/L (Low)?? 06/25/2022 15:14 Acetaminophen Level <5 mg/L (Low)?? 06/25/2022 15:14 ? UA/URINALYSIS Appear/Color, Urine LIGHT YELLOW ()?? 06/25/2022 12:50 Specific [place], Urine 1.014 ()?? 06/25/2022 12:50 pH, Urine 7.0 ()?? 06/25/2022 12:50 Albumin, Urine TRACE (Abnormal)?? 06/25/2022 12:50 Glucose, Urine NEGATIVE ()?? 06/25/2022 12:50 Ketones, Urine NEGATIVE ()?? 06/25/2022 12:50 Bilirubin, Urine NEGATIVE ()?? 06/25/2022 12:50 Hemoglobin, Urine NEGATIVE ()?? 06/25/2022 12:50 Nitrite, Urine NEGATIVE ()?? 06/25/2022 12:50 Leukocyte, Urine NEGATIVE ()?? 06/25/2022 12:50 Urobilinogen NORMAL mg/dL ()?? 06/25/2022 12:50 WBC's, Urine 1 /HPF ()?? 06/25/2022 12:50 RBC's, Urine <1 /HPF ()?? 06/25/2022 12:50 Hold Urine Culture Testing available 48 hours from time of collection. ()?? 06/25/2022 12:50 ?? VIROLOGY COVID-19 PCR Specimen Source NASAL ()?? 07/01/2022 05:30 COVID-19 PCR Result NEGATIVE ()?? 07/01/2022 05:30 ?? Microbiology ?? COVID-19 (2018 Novel Coronavirus) PCR?? Completed?? Source: Nasal Body Site: Nose Collected Dt/Tm: 06/25/2022 15:19 Last Updated Dt/Tm: 06/25/2022 17:50 COVID-19 (2019 Novel Coronavirus) PCR?? Completed?? Source: Nasal Body Site: Nose Collected Dt/Tm: 07/01/2022 05:25 Last Updated Dt/Tm: 07/01/2022 14:51 Imaging(s) ?CT Pelvis W/O Contrast ?? 06/25/2022 12:44??by Lizandro GUNDERSON, Shaun W ?No fracture or malalignment. ?CT Cervical Spine W/O Contrast ?? 06/25/2022 12:44??by Parviz GUNDERSON, Zack Hitchcock ?1. No evidence of acute intracranial abnormality. 2. No evidence of acute fracture or dislocation of the cervical spine. ? 30??minutes spent on discharge ?? Patient seen and discussed with Attending, Dr. Norton. ?? Bridget Castro MD PGY-1, Internal Medicine-Pediatrics Pager [phone] ?? * Nenita Norton MD: PERFORM Event Display: Discharge/Transfer Note Hospital Authored Date: [id number] Attending Attestation:??I have seen and evaluated this patient on day of service noted above. ??I have discussed the case and its management with the resident and agree with the findings and plan as documented in the resident???s note. * Dhara Loja RN: PERFORM Event Display: Patient Education/Instruction Authored Date: Inpatient Adult Discharge Instructions [address] [address] Name: JING ANDREWS : 1945 Visit: 06/25/2022 10:39:00 Current Date: 07/02/2022 12:49 Account: [id number] Inpatient Adult Discharge Instructions We would like to thank you for allowing us to assist you with your healthcare needs. The following includes patient education materials and information regarding your injury/illness. Our entire staffstrives to provide an excellent experience for our patients and their families. PLEASE ENSURE YOU FOLLOW-UP PER THE INSTRUCTIONS BELOW! ?? YOUR OPINION IS IMPORTANT TO US! Please complete the survey you may receive by mail or email. Your feedback will be used to make improvements to the healthcare experiences of our patients and their families. Surveys are administered by [employer]. ?? If further treatment with your primary care physician or another doctor is recommended, it is important for you to keep the appointment. Call your primary care physician or return to the Emergency Department immediately if your condition worsens, fails to improve, or new symptoms develop. If you need to find a doctor, you can call [facility] for a referral at [phone] or toll free at [phone]) or log in to [email or web address].. ?? You can view and manage your care through the patient portal or by using a health care mustapha of your choosing. [employer] is a website that allows you to securely view your medical information including your hospital discharge summary, office visit summaries, medications and follow-up visits. You can also request appointments, renew medications, and request access to your medical information using a health care mustapha of your choosing, or just ask a question. You can enroll at [email or web address] or register during your next office visit. You have been discharged from [facility], Patient Care Unit: D6A. If you have any questions regarding these instructions after you leave, please call us and we will be happy to assist you. [facility] Your Care Team Attending Physician Cierra GUNDERSON, Nenita Consulting Providers Jose GUNDERSON, Jillian Discharging Providers Gloria GUNDERSON, Bridget Reason for Admission Fall, General medical Tests Performed Below is a partial list of the tests performed during your hospitalization. You may have had other tests and procedures not included in this list. Please discuss all test results with your provider. Acetaminophen Level Alcohol Level ALT Aspirin Level AST Basic Metabolic Panel CBC w/ Differential COVID-19 (2019 Novel Coronavirus) PCR ETHANOL GLUCOSE POC HOLD GREEN TUBE HOLD LAVENDER TUBE LITHIUM SALICYLATE Troponin T Quant Urinalysis w/hold for Urine Culture VALPROIC CT Cervical Spine W/O Contrast CT Head/Brain W/O Contrast CT Pelvis W/O Contrast XR Chest Portable Primary Care Provider Katina Zuniga MD Advance Directive Health Care Proxy on File Yes - Health Care Proxy Yes - [facility] No qualifying data available. Discharge Vitals Temperature: 97.4 DegF Height: 161 cm Pulse Rate: 66 bpm Weight: 73 kg Respiratory Rate: 18 br/min Body Mass Index:??28.16 kg/m2??High Systolic Blood Pressure: 137 mm Hg Body surface area: 1.81 Diastolic Blood Pressure: 82 mm Hg ?? Oxygen Saturation: 98 % ?? Studies Pending All tests and labs ordered during this hospital stay have been completed unless listed below. Please discuss all pending results with your provider listed above in these instructions. ?? Add On Lab Order What to do next Instructions From Your Doctor You were brought to the hospital due to a fall. Imaging showed no acute injuries. Please follow up with your PCP either at the 07/30/22 appointment or earlier if needed. You were also found to have delusions of paranoia for which you will have further management at [facility] at their Geriatric Psychiatry Unit. Discharge Orders Scheduled Follow-Up Appointments Friday 1:40 PM EST ?? With: Katina Zuniga MD Where: [facility] [address] [place] [address]- You Need to Schedule the Following Appointments Follow Up with??Katina Zuniga MD When?? Why: Please attend your scheduled PCP appointment on 07/30/22 at 1:40 PM. Where: ?? Discharge Medications JING ANDREWS :1945 Visit Date:06/25/2022 Medications: Please continue your medications until treatment is completed or stopped by your provider. Medications not listed below should be discontinued. Discuss any questions related to medications with your provider. What How Much When Instructions Next Dose New Aspirin (aspirin 81 mg oral delayed release tablet) 81 Milligram Oral Daily 07/03 9AM New Enoxaparin 30 Milligram Subcutaneous Injection Daily 07/03 9AM New Insulin Lispro 2-10 units Subcutaneous Injection 3 times a day before meals << Sliding Scale Comments >> 150 - 199 ?? 2 units Call if less than 70 200 - 249 ?? 4 units 250 - 299 ?? 6 units 300 - 349 ?? 8 units 350 - 399 ?? 10 units Call if greater than 400 << Sliding Scale Comments >> ?? resume with meal time schedule Changed Divalproex Sodium (divalproex sodium 500 mg oral enteric coated tablet) 1 tab(s) Oral Twice a day 07/02 9PM Changed Olanzapine (olanzapine 2.5 mg oral tablet) 1 tab(s) Oral Every 6 hours as needed for Agitation as needed-non admin [place] [facility] Changed Olanzapine (olanzapine 5 mg oral tablet) 1 tab(s) Oral Daily at Bedtime 07/02 9PM Changed Trazodone (traZODone 50 mg oral tablet) 1 tab(s) Oral Daily at Bedtime as needed for Sleep 07/02 @HS if needed Unchanged Amlodipine (amLODIPine 5 mg oral tablet) 1 tab(s) Oral Daily 07/03 9AM Unchanged Durable Medical Equipment (Freestyle Lite Lancets) See instructions DX: E11.9 USE THREE TIMES PER DAY ?? Unchanged Durable Medical Equipment (Freestyle Lite Monitor) See instructions DX: E11.9 USE THREE TIMES PER DAY ?? Unchanged Durable Medical Equipment (Freestyle Lite Test Strips) See instructions Duration: 30 Days dx: E11.9 USE THREE TIMES PER DAY ?? Unchanged Durable Medical Equipment (Walker) See instructions Ht: 162.56cm Wt: 83.1kg DX: osteoarthritis M19.90 Length of Need: x99 ?? Unchanged Miscellaneous Rx (freestyle kip sensors 14 day) See instructions use three times per day ?? dx: E11.9 ?? Unchanged Miscellaneous Rx (FREESTYLE KIP TESTING MONITOR) See instructions PLEASE USE TO CHECK BG DAILY FOR DX: E11.9 ?? FREETYLE KIP SENSOR ?? Unchanged Omeprazole (omeprazole 20 mg oral enteric coated capsule) 1 capsule Oral Daily 07/03 9AM Unchanged Simvastatin (simvastatin 20 mg oral tablet) 1 tab(s) Oral Daily at Bedtime Duration: 90 Days 11 9PM Unchanged torsemide (torsemide 20 mg oral tablet) 1 tab(s) Oral Daily as needed for NEEDED FOR LEG SWELLING daily as needed- non admin [place] [facility] [place] What How Much When Comments Stop Taking Lamotrigine (lamotrigine 25 mg oral tablet) TAKE 2 TABLETS BY MOUTH 2 TIMES A DAY FOR 30 DAYS ?? Stop Taking Metformin (MetFORMIN (Eqv-Glucophage XR) 500 mg oral tablet, extended release) 1 tab(s) Oral Daily Test Results Below is a partial list of the most recent Laboratory test results done prior to this discharge. You may have had other tests and procedures not included in this list. Please discuss all test resultswith your provider. Acetaminophen Level (06/25/2022) ? ?Acetaminophen Level - <5 mg/L Alcohol Level (06/25/2022) ???Ethanol, Serum or Plasma - NONE DETECTED ALT (06/25/2022) ???ALT (SGPT) - 9 units/L Aspirin Level (06/25/2022) ? ?Salicylate Level - <0.3 mg/dL AST (06/25/2022) ???AST (SGOT) - 17 units/L Basic Metabolic Panel (06/30/2022) ???Sodium - 142 mmol/L???Potassium - 3.8 mmol/L???Chloride - 103 mmol/L???Bicarbonate Level - 24 mmol/L???Anion Gap - 15???Glucose Level - 89 mg/dL???BUN - 54 mg/dL???Creatinine-Blood - 1.7 mg/dL???Estimated GFR Creatinine - 31 ML/MIN/1.73 M2???Calcium - 10.1 mg/dL CBC w/ Differential (06/25/2022) ???WBC - 6.3 k/mm3???RBC - 4.04 m/mm3???Hgb - 12.4 Gm/dL???Hct - 39.1 %???MCV - 96.8 femtoliters???MCH - 30.7 pg???MCHC - 31.7 g/dL???Platelet Count - 193 k/mm3???RDW-SD - 48.3 femtoliters???MPV - 10.5 femtoliters???Nucleated RBC (Automated) - 0.0 #/100 WBC'S???Abs. NRBC - 0.0 k/mm3???Abs. Neut - 4.7 k/mm3???Abs. Lymph - 1.1 k/mm3???Abs. Clinch - 0.4 k/mm3???Abs. Eo - 0.1 k/mm3???Abs. Baso - 0.0 k/mm3???Neut % - 74.3 %???Lymph % - 17.4 %???Clinch % - 5.8 %???Eos % - 1.7 %???Baso % - 0.5 %???Imm Gran - 0.3 %???Abs. Imm Gran - 0.0 k/mm3 COVID-19 (2019 Novel Coronavirus) PCR (07/01/2022) ???COVID-19 PCR Specimen Source - NASAL???COVID-19 PCR Result - NEGATIVE ETHANOL (06/25/2022) ???Ethanol, Serum or Plasma - NONE DETECTED GLUCOSE POC (07/02/2022) ???Glucose, POC - 80 mg/dL HOLD GREEN TUBE (06/25/2022) ???Hold Green Top - SPECIMEN DISCARDED AFTER 1 WEEK HOLD LAVENDER TUBE (06/30/2022) ???Hold Lavender Top - SPECIMEN DISCARDED AFTER 24 HOURS. LITHIUM (06/25/2022) ? ?[place] Level - <0.1 mmol/L SALICYLATE (06/25/2022) ? ?Salicylate Level - <0.3 mg/dL Troponin T Quant (06/25/2022) ? ?Troponin T Quant - <0.01 ng/mL Urinalysis w/hold for Urine Culture (06/25/2022) ???Appear/Color, Urine - LIGHT YELLOW???Specific [place], Urine - 1.014???pH, Urine - 7.0???Albumin, Urine - TRACE???Glucose, Urine - NEGATIVE???Ketones, Urine - NEGATIVE???Bilirubin, Urine - NEGATIVE???Hemoglobin, Urine - NEGATIVE???Nitrite, Urine - NEGATIVE???Leukocyte, Urine - NEGATIVE???Urobilin ogen - NORMAL? ?WBC's, Urine - 1 /HPF? ?RBC's, Urine - <1 /HPF? ?Hold Urine Culture - Testing available 48 hours from time of collection. VALPROIC (06/25/2022) ???Valproic Level - 31.6 mg/L Allergies (NKA means No Known Allergies) NKA Problems Active Problems??(20) Bipolar disorder?? Bipolar disorder?? CKD (chronic kidney disease)?? Depression?? Diabetes?? Diabetes mellitus?? Esophageal reflux (GERD)?? Fall?? Hypertension?? Leg swelling?? Obesity?? Osteopenia with high risk of fracture?? pTis: Ductal carcinoma in situ (breast)?? Pure hypercholesterolemia?? TIA (transient ischemic attack)?? Trauma?? Tremors of nervous system?? Urinary urgency?? Venous insufficiency?? Wheezing?? Education Materials Below is the list of Educational Leaflet Providered with your Discharge Instructions. Valuables and Belongings I fully understand and agree that [facility] accepts no responsibility for all my personal property including clothing, toilet articles, radios, jewelry, dentures, hearing aids, rings, money, or any other property that is in my possession or is brought to me after admission. I understand certain valuables may be placed in a hospital safe for a short period of time. I understand that the hospital is not liable for loss or damage due to accident, fire, or other natural occurrence while said property is in the safe. I accept full responsibility for any personal property that I keep with me, and will not hold the hospital responsible in case of loss or disappearance. I acknowledge that i have been encouraged to send valuables and belongings home. ?? Safe envelope number: [id number] Deposit/Withdrawal: Withdrawal Review of Valuable and Belonging List: With patient, With witness Disposition of Belongings: Valuables Locked Date for Pt to Sign Valuables/Belongings: 07/02/22 12:17:00 ?? Other Discharge Information ? Pulmonary Rehab Status?? Pulmonary Rehab Discharge Status?? Respiratory Rate: 18 br/min ? Common Emergency Awareness Tips IS IT A STROKE? Act FAST and Check for these signs: FACE Does the face look uneven? ARM Does one arm drift down? SPEECH Does their speech sound strange? TIME Call 9-1-1 at any sign of stroke ?? Heart Attack Signs Chest discomfort: Most heart attacks involve discomfort in the center of the chest and lasts more than a few minutes, or goes away and comes back. It can feel like uncomfortable pressure, squeezing, fullness or pain. Discomfort in upper body: Symptoms can include pain or discomfort in one or both arms, back, neck, jaw or stomach. Shortness of breath: With or without discomfort. Other signs: Breaking out in a cold sweat, nausea, or lightheaded. Remember, MINUTES DO MATTER. If you experience any of these heart attack warning signs, call to get immediate medical attention! ?? Smoking can increase your chances of developing chronic health problems and can cause harmful effects to other family members in your house. If you smoke, you are strongly encouraged to quit. Please call [facility] [employer] Link at [phone] or [phone] ([phone]) or log in to [email or web address] for referrals to smoking cessation programs. ?? The National Suicide Prevention Hotline is available 17/03 if you or someone you know needs to find a reason to keep living. By calling 7-997-295-[employer] (5109) you'll be connected to a skilled, trained counselor at a crisis center in your area. INPATIENT DISCHARGE INSTRUCTIONS SIGNATURE PAGE JULIANAJING Location:[facility] Registration Date and Time:06/25/2022 10:39 EDT Primary Care Physician: Katina Zuniga MD, I JING ANDREWS, have received the above patient education materials/instructions and have verbalized understanding. If ambulance or transport services are being used I further acknowledge being given a choice of service. ?? If you need to contact me, please call me at this number: . Patient/Trim Stencil Maker Name: Patient/Trim Stencil Maker Signature: Relationship to Patient: Witness Name/Signature: Date: Portable XR Chest Views * [facility] , CIS S: TRANSCRIBE Zack Jj MD: VERIFY Event Display: Result: Authored Date: Chest Portable Hx of Present Illness: fall; Reason: Other:; ground level fall; Clinical Question(s): Trauma / Trauma COMPARISON: 06/07/2022 FINDINGS: LINES AND TUBES: None. LUNGS AND PLEURA: Clear lungs. Normal pulmonary vascularity. No pleural effusion. No pneumothorax. HEART, MEDIASTINUM AND EDER: Heart is normal in size. Normal mediastinal and hilar contour. BONES AND SOFT TISSUES: No acute abnormality. Bilateral chest wall surgical clips. IMPRESSION: No evidence of acute abnormality. WSN: [id number] Ordering Physician: Atif Singer Dictated By: Zack Jj MD Dictated Date/Time: 06/25/22 12:42 p Reviewed By: Zack Jj MD Signed By: Zack Jj MD Signed Date/Time: 06/25/22 12:42 pm Transcribed By: SAPPHIRE Transcribed Date/Time: 06/25/22 12:[address] Pelvis WO contrast * [facility] , CIS S: TRANSCRIBE Shaun Bone MD W: VERIFY Event Display: Result: Authored Date: [id number] CT Pelvis W/O Contrast Hx of Present Illness: Fall. Pain. Evaluate for fracture. TECHNIQUE: Spiral CT without IV contrast through the pelvis only formatted in 3 planes. Enteric contrast administered. Automatic tube modulation and/or iterative dose reconstruction were used to optimize exposure parameters. CTDIvol Body: 12.05 mGy, DLP Body: 410 mGy*cm. COMPARISON: CT 04/09/2022 FINDINGS: Bones: Moderate degenerative changes of the sacroiliac joints. The pubic symphysis appears intact. No hip fracture. No CT evidence of AVM. Mild bilateral hip osteoarthritis. Soft tissues: Moderate stool retention. Small bilateral fat-containing inguinal hernias. No hematoma no joint effusion. IMPRESSION: No fracture or malalignment. WSN: [id number] Ordering Physician: Atif Singer Dictated By: Shaun Bone MD Dictated Date/Time: 06/25/22 12:49 p Reviewed By: Shaun Bone MD Signed By: Shaun Bone MD Signed Date/Time: 06/25/22 12:49 pm Transcribed By: SAPPHIRE Transcribed Date/Time: 06/25/22 12:[address] Cervical spine WO contrast * [facility] , CIS S: TRANSCRIBE Zack Jj MD S: VERIFY Event Display: Result: Authored Date: [id number] CT Head/Brain W/O Contrast, CT Cervical Spine W/O Contrast INDICATION: Hx of Present Illness: fall; Reason: Other:; Head trauma, mod- severe; Clinical Question(s): Hematoma TECHNIQUE: Noncontrast head CT using axial technique was reconstructed in axial and coronal planes.Noncontrast spiral CT through the cervical spine was formatted in 3 planes. Automatic tube modulation was used for the cervical spine and iterative dose reconstruction was used for both the head and cervical spine to optimize scan parameters and image quality. CTDIvol Body: 24.18 mGy, DLP Body: 521 mGy*cm. CTDIvol Head: 42.55 mGy, DLP Head: 766 mGy*cm. COMPARISON: CT head 04/09/2022 FINDINGS: Supervisor [place] Findings, Lines and Tubes: None. BRAIN AND EXTRA-AXIAL SPACES: No parenchymal hemorrhage, midline shift, or mass effect. Schaefer-white matter differentiation is wellpreserved. No acute infarct. Negative insular ribbon sign. Atherosclerotic vascular calcification of the carotid arteries but negative hyperdense vessel sign. Mild prominence of the ventricles and sulci consistent with parenchymal volume loss. Mild low-density white matter changes. No subarachnoid hemorrhage. No subdural or epidural collection. CALVARIUM, SKULL BASE, AND SOFT TISSUES: No fractures or suspicious bony lesions. The paranasal sinuses and mastoid air cells are clear. Visualized orbits and globes are intact. The extracranial soft tissues are unremarkable. CERVICAL SPINE: No fracture. No acute osseous abnormalities. Normal alignment. No locked or perched facet. Moderate multilevel degenerative disc space narrowingand end plate irregularity. OTHER BONES: No acute abnormality. CERVICAL SOFT TISSUES AND LUNG APICES: Normal soft tissues. Visualized lung apices are clear. IMPRESSION: 1. No evidence of acute intracranial abnormality. 2. No evidence of acute fracture or dislocation of the cervical spine. WSN: [id number] Ordering Physician: Atif Singer Dictated By: Zack Jj MD Dictated Date/Time: 06/25/22 12:58 p Reviewed By: Zack Jj MD Signed By: Zack Jj MD Signed Date/Time: 06/25/22 12:58 pm Transcribed By: SAPPHIRE Transcribed Date/Time: 06/25/22 12:[address] Head WO contrast * [facility] , CIS S: TRANSCRIBE Zack Jj MD: VERIFY Event Display: Result: Authored Date: CT Head/Brain W/O Contrast, CT Cervical Spine W/O Contrast INDICATION: Hx of Present Illness: fall; Reason: Other:; Head trauma, mod- severe; Clinical Question(s): Hematoma TECHNIQUE: Noncontrast head CT using axial technique was reconstructed in axial and coronal planes.Noncontrast spiral CT through the cervical spine was formatted in 3 planes. Automatic tube modulation was used for the cervical spine and iterative dose reconstruction was used for both the head and cervical spine to optimize scan parameters and image quality. CTDIvol Body: 24.18 mGy, DLP Body: 521 mGy*cm. CTDIvol Head: 42.55 mGy, DLP Head: 766 mGy*cm. COMPARISON: CT head 04/09/2022 FINDINGS: Supervisor [place] Findings, Lines and Tubes: None. BRAIN AND EXTRA-AXIAL SPACES: No parenchymal hemorrhage, midline shift, or mass effect. Schaefer-white matter differentiation is wellpreserved. No acute infarct. Negative insular ribbon sign. Atherosclerotic vascular calcification of the carotid arteries but negative hyperdense vessel sign. Mild prominence of the ventricles and sulci consistent with parenchymal volume loss. Mild low-density white matter changes. No subarachnoid hemorrhage. No subdural or epidural collection. CALVARIUM, SKULL BASE, AND SOFT TISSUES: No fractures or suspicious bony lesions. The paranasal sinuses and mastoid air cells are clear. Visualized orbits and globes are intact. The extracranial soft tissues are unremarkable. CERVICAL SPINE: No fracture. No acute osseous abnormalities. Normal alignment. No locked or perched facet. Moderate multilevel degenerative disc space narrowingand end plate irregularity. OTHER BONES: No acute abnormality. CERVICAL SOFT TISSUES AND LUNG APICES: Normal soft tissues. Visualized lung apices are clear. IMPRESSION: 1. No evidence of acute intracranial abnormality. 2. No evidence of acute fracture or dislocation of the cervical spine. WSN: [id number] Ordering Physician: Atif Singer Dictated By: Zack Jj MD Dictated Date/Time: 06/25/22 12:58 p Reviewed By: Zack Jj MD Signed By: Zack Jj MD Signed Date/Time: 06/25/22 12:58 pm Transcribed By: SAPPHIRE Transcribed Date/Time: 06/25/22 12:49 pm Patient Care team information Care Team Personnel Name: Katina Zuniga MD Position: [facility] Primary Care Physician Member Role: PCP Address: Address: [address] [place] [address]- Name: Mily Stein RN Position: [facility] RN Member Role: Primary Care Nurse Name: Geno Cifuentes RN Position: [facility] RN Member Role: Primary Care Nurse Name: Coleen Reese RN Position: [facility] RN Member Role: Primary Care Nurse Name: Rosa Agustin NP Position: [facility] Associate Professional Member Role: Primary Care Nurse Address: Address: [address] [place] [address]- Name: Steve Saravia RN Position: [facility] RN Member Role: Primary Care Nurse Name: Edna Tom RN Position: [facility] RN Member Role: Primary Care Nurse Name: Ella Garcia RN Position: S RN Member Role: Primary Care Nurse Name: Cy Benjamin DO Position: [facility] Renal MD Member Role: Lifetime Consulting Physician Address: Address: [address] [facility] [address] [facility] [place] [address]- [place] Name: Migel Lopez RN Position: [facility] RN Member Role: Primary Care Nurse Name: Stacia Hernandez RN Position: [facility] RN Member Role: Primary Care Nurse Name: Lauren Lund RN Position: [facility] ED RN W/OE and Tasks Member Role: Primary Care Nurse Name: Marisol Grady RN Position: [facility] RN Member Role: Primary Care Nurse Name: Corinna Orozco RN Position: [facility] RN Member Role: Primary Care Nurse Name: Flory Fernandez RN Position: [facility] RN Member Role: Primary Care Nurse Name: Paula Foss RN Position: [facility] RN Member Role: Primary Care Nurse Address: Address: [address] [place] [address]- [place] Name: Arnol Travis RN Position: [facility] RN Member Role: Primary Care Nurse Name: Hina Puckett Position: [facility] RN Member Role: Primary Care Nurse Name: Nidia De Oliveira Position: [facility] RN Member Role: Primary Care Nurse Name: *[facility], ED Attending Position: [facility] ED Attendings Patient Name: *ADRIAN, Inpt Attending Position: [facility] ED Medicine MD Name: Elizabeth Harry Position: [facility] ED TA [facility] Name: Chayo Longo RN Position: [facility] ED RN W/OE and Tasks Member Role: Patient Care Provider Care Team Related Persons Name: RAFAELA ANDREWS Address: home [address] [place] [address] Name: VALENTINA ARNOLD Address: home [address] [facility] [address] [place] [address]
--- OUTSIDE RECORDS SUMMARY | 2023-12-29 21:00 | XMS_ITS | Continuity of Care Document ---
Author Organization [facility] Address [address] [place] [address]- Care Team Providers Care Teaching Pastor Name Role Phone Katina Zuniga MD Primary Care Physician Encounter [facility] Date(s): 05/28/22 - 06/27/22 [facility] [address] [place], [place] [address] Allergies, Adverse Reactions, Alerts No Known Allergies Immunizations Given and Recorded Vaccine Date Status Refusal Reason influenza virus vaccine, inactivated 1 06/07/22 Gi xi influenza virus vaccine, inactivated 2 06/08/18 Re corded influenza virus vaccine, inactivated 3 07/22/17 Gi xi influenza virus vaccine, inactivated 09/20/16 Ryan rded influenza virus vaccine, inactivated 07/06/14 Give n SARS-CoV-2 mRNA ([id number]) vax 02/24/22 Recorded SARS-CoV-2 (COVID-19) mRNA BNT-162b2 [...] Live 12/25/12 Recorded pneumococcal 23-valent vaccine 8 3/28/13 Given tetanus/diphtheria/pertussis, acel(Tdap) 9 11/19/12 Given 1Result Comment: [facility] [id number] [phone] 2Location History: [facility] 3Result Comment: [07/22/2017] [facility] [id number] 4Result Comment: Done at [facility] 5Result Comment: Done at [facility] 7Result Comment: [06/12/2015] high [...] EDT, Route to Pharmacy Electronically, [facility]/pharmacy #[id number], Partial fill upon patient requestif the prescription [...] Refills, Maintenance, 02/04/22 8:30:00 EDT, Ointment, [facility]/pharmacy #[id number], Partial fill upon patient request if the [...] Refills, Maintenance, 10/10/21 13:07:00 EST, ECCapsule, [facility]/pharmacy #[id number], 162.56, cm, 10/10/21 12:54:00 EST, Height, 90.6, kg, 04/27/21 9:57:00 EDT, Dry Weight Start Date: 10/10/21 Status: Ordered simvastatin 20 mg oral tablet 20 mg, 1, tablet, By Mouth, Daily at bedtime, # 90 tablet, Refills 3, Tot. Refills 3, Maintenance, 01/03/22 11:37:00 EDT, Route to Pharmacy Electronically, [facility]/pharmacy #[id number], 162.56, cm, 01/03/22 11:11:00 EDT, Height, 78.4, kg, 11/16/21 22:27:00 EDT,... Start Date: 01/03/22 Stop Date: 12/29/22 Status: Ordered torsemide 20 mg oral tablet 1 tablet, By Mouth, Daily, PRN NEEDED FOR LEG SWELLING, # 90 tablet, 1 Refills, [facility] STORE [id number], cm, 04/02/22 15:54:00 EDT, Height, 74.1, kg, [...] Refills, Maintenance, 01/03/22 11:38:00 EDT, Capsule, [facility]/pharmacy #[id number], 162.56, cm, 01/03/22 11:11:00 [...] Personnel Name: Katina Zuniga MD Address: Address: [address] [place] [address]
--- OUTSIDE RECORDS SUMMARY | 2023-12-29 21:00 | XMS_ITS | Continuity of Care Document ---
Author Organization [facility] Address [address] [place] [address]- Care Team Providers Care Feed Preparation Operator Name Role Phone Katina Zuniga MD Primary Care Physician [phone] [id number] Date(s): 09/19/21 - 09/26/21 [facility] [address] [place] [address]- Encounter Diagnosis Trauma(Discharge Diagnosis) - 09/19/21 Bipolar disorder(Discharge Diagnosis) - 09/19/21 Diabetes(Discharge Diagnosis) - 09/19/21 Attending Physician: Katina Zuniga MD Allergies, Adverse [...] 8 11/19/12 Given 1Result Comment: Done at [facility] 2Result Comment: Done at [facility] 3Location History: [facility] 4Result Comment: [07/22/2017] [facility] [id number] 5Location History: [facility] 6Result Comment: [06/12/2015] high dose 7Admin Note: VIS GIVEN 8Admin Note: vis given Medications aspirin 325 mg oral delayed release tablet 325 mg, 1, tablet, By Mouth, Daily, # 30 tablet, Refills 0, Tot. Refills 0, Maintenance, 04/27/21 16:38:00 EDT, Route to Pharmacy Electronically, [facility]/pharmacy #[id number], Partial fill upon patient requestif the [...] 12/15/20 15:42:00 EDT, Route to Pharmacy Electronically, [facility]/pharmacy #[id number], 162.56, cm, 12/15/20 15:05:00 EDT,Height, 91, kg, 12/13/20 6:45:00 EDT, Dry Weight Start Date: 12/15/20 Stop Date: 12/10/21 Status: Ordered Diflucan 150 mg oral tablet 1 tablet = 150 mg, By Mouth, Once, # 1 tablet, 1 Refills, Soft Stop, 09/19/21 12:53:00 EST, Tablet,[facility]/pharmacy #[id number], Partial fill upon patient request if [...] 03/14/21 14:36:00 EDT, Route to Pharmacy Electronically, [facility]/pharmacy #[id number], 162.56, cm, 03/14/21 14:12:00 EDT, Height, 89.8, kg, 03/14/21 14:12... Start Date: 03/14/21 Stop Date: 05/09/21 Status: Ordered lithium 300 mg oral tablet 3 tablet = 900 mg, By Mouth, Daily at bedtime, # 270 tablet, 1 Refills, Maintenance, 09/04/21 17:14:00 EST, [facility]/pharmacy #[id number], 162.56, cm, 06/29/21 14:06:00 EDT, Height, 90.6, kg, 04/27/21 9:57:00 EDT, Dry Weight Start Date: 09/04/21 Status: Ordered Melatonin 5 mg oral tablet 1 tablet = 5 mg, By Mouth, Daily at bedtime, PRN for insomnia, for 14 days, # 14 tablet, 0 Refills,Acute 10/05/21 13:23:00 EST, 09/21/21 13:23:00 EST, Tablet, [facility]/pharmacy #[id number], Partial fill upon patient request if the prescription is for a schedule... Start Date: 09/21/21 Stop Date: 10/05/21 Status: Ordered metFORMIN 1000 mg oral tablet 1 tablet = 1,000 mg, By Mouth, Daily, # 90 tablet, 1 Refills, Maintenance, 09/21/21 9:52:00 EST, Tablet, [facility]/pharmacy #[id number], 162.56, cm, 09/19/21 13:07:00 EST, Height, 90.6, kg, 04/27/21 9:57:00 EDT,Dry Weight Start Date: 09/21/21 Status: Ordered nortriptyline 50 mg oral capsule 1, capsule, By Mouth, Daily at bedtime, # 90 capsule, Refills 1, Tot. Refills 1, Maintenance, 09/04/21 13:33:00 EST, Route to Pharmacy Electronically, [facility]/pharmacy #[id number], 162.56, cm, 06/29/21 14:06:00 EDT, Height, 90.6, kg, 04/27/21 9:57:00 EDT, Dry W... Start Date: 09/04/21 Status: Ordered omeprazole 20 mg oral enteric coated capsule 1 capsule = 20 mg, By Mouth, Daily, # 90 capsule, 3 Refills, Maintenance, 09/05/20 14:34:00 EST, ECCapsule, [facility]/pharmacy #[id number], 160, cm, 09/05/20 14:19:00 EST, Height, 94.3, kg, 03/02/19 15:45:00 EDT, Dry Weight Start Date: 09/05/20 Status: Ordered simvastatin 20 mg oral tablet 20 mg, 1, tablet, By Mouth, Daily at bedtime, # 90 tablet, Refills 3, Tot. Refills 3, Maintenance, 03/14/21 14:34:00 EDT, Route to Pharmacy Electronically, [facility]/pharmacy #[id number], 162.56, cm, 03/14/21 14:12:00 EDT, Height, [...] tablet, 0 Refills, Maintenance, 09/19/21 12:52:00 EST,Tablet, [facility]/pharmacy #[id number], Partial fill upon patient request if the prescription is for a scheduleII opioid drug., 1 tablet By Mouth Daily in PM, 162... Start Date: 09/19/21 Status: Ordered Problem List Condition Effective Dates Status Health Status Inform ant Bipolar disorder(Confirmed) Active Breast cancer, Right breast cancer, T1b N0, ER positive, [place] positive, HER-2/mickey negative, diagnosed in 2008. Left [...] Dates Health Status Cl inical Service Informant Diabetes Discharge Diagnosis 09/19/21 Bipolar disorder Discharge Diagnosis 09/19/21 Trauma Discharge Diagnosis 09/19/21 Vital Signs Most recent to oldest [Reference Range]: 1 2 Height 162.56 cm (09/19/21 1:07 PM) 162.56 cm (09/19/21 12:45 PM) Weight 88.6 kg (09/19/21 12:45 PM) Oxygen Saturation [94-100 %] 94 % (09/19/21 12:45 PM) Pulse Rate [55-90 bpm] 93 bpm *H* (09/19/21 12:45 PM) Body Mass Index [18.5-24.99] 33.53 *>HHI* (09/19/21 12:45 PM) Blood Pressure [90-138/55-84 mm Hg] 126/ 74mm Hg (09/19/21 1:07 PM) 140/82mm Hg *H* (09/19/21 12:45 PM) Temperature [96.8-100.4 DegF] 97.6 DegF (09/19/21 12:45 PM) Mode of Delivery (Oxygen) Room air (09/19/21 12:45 PM) Blood pressure sites Arm, left (09/19/21 12:45 PM) Temperature Route Temporal (09/19/21 12:45 PM) Social History Social History Type Response Tobacco Other: 1 pack per da y for 40 years. Sex
--- OUTSIDE RECORDS SUMMARY | 2023-12-29 21:00 | XMS_ITS | Continuity of Care Document ---
Author Organization [facility] Address [address] [place] [address]- Care Team Providers Care Glass Artist Name Role Phone Katina Zuniga MD Primary Care Physician [place] [facility] [place] 09/25[place] - 10/31/[address] [address] Attending Physician: Katina Zuniga MD Admitting Physician: [...] Given 1Result Comment: Done at [facility] 2Result Comment: Done at [facility] 3Location History: [facility] 4Result Comment: [07/22/2017] [facility][note 3] [id number] [facility] 6Result Comment: [06/12/2015] high dose 7Admin Note: VIS GIVEN 8Admin Note: vis given Medications aspirin 325 mg oral delayed release tablet 325 mg, 1, tablet, By Mouth, Daily, # 30 tablet, Refills 0, Tot. Refills 0, Maintenance, 04/27/21 16:38:00 EDT, Route to Pharmacy Electronically, [facility]/pharmacy #[id number], Partial fill upon patient requestif the prescription is for a schedule II opioid kirit... Start Date: 04/27/21 Status: Ordered aspirin 325 mg oral delayed release tablet 325 mg, 1, tablet, By Mouth, Daily, # 90 tablet, Refills 3, Tot. Refills 3, Maintenance, 10/10/21 13:09:00 EST, Route to Pharmacy Electronically, [facility]/pharmacy #[id number], Partial fill upon patient requestif the prescription is for a schedule II opioid kirit... Start Date: 10/10/21 Status: Ordered atenolol 25 mg oral tablet 25 mg, 1, tablet, By Mouth, Daily, # 90 tablet, Refills 3, Tot. Refills 3, Maintenance, 12/10/21 15:42:00 EDT, Route to Pharmacy Electronically, [facility]/pharmacy #[id number], 162.56, cm, 10/10/21 12:54:00 EST,Height, 90.6, [...] 14:36:00 EDT, Route to Pharmacy Electronically, [facility]/pharmacy #[id number], 162.56, cm, 03/14/21 14:12:00 EDT, Height, 89.8, kg, 03/14/21 14:12... Start Date: 03/14/21 Stop Date: 05/09/21 Status: Ordered levocetirizine 5 mg oral tablet 1 tablet, By Mouth, Daily in PM, # 30 tablet, 10 Refills, [facility] ST[facility] [id number], 30, TAKE 1 TABLET BY MOUTH EVERY EVENING, 162.56, cm, 10/10/21 13:15:00 EST, Height, 90.6, kg, 04/27/21 9:57:00 EDT, Dry Weight Start Date: 10/16/21 Status: Ordered lithium 300 mg oral tablet 3 tablet = 900 mg, By Mouth, Daily at bedtime, # 270 tablet, 1 Refills, Maintenance, 09/04/21 17:14:00 EST, [facility]/pharmacy #[id number], 162.56, cm, 06/29/21 14:06:00 EDT, Height, 90.6, kg, 04/27/21 9:57:00 EDT, Dry Weight Start Date: 09/04/21 Status: Ordered metFORMIN 1000 mg oral tablet 1 tablet = 1,000 mg, By Mouth, Daily, # 90 tablet, 1 Refills, Maintenance, 09/21/21 9:52:00 EST, Tablet, [facility]/pharmacy #[id number], 162.56, cm, 09/19/21 13:07:00 EST, Height, 90.6, kg, 04/27/21 9:57:00 EDT,Dry Weight Start Date: 09/21/21 Status: Ordered nortriptyline 50 mg oral capsule 1, capsule, By Mouth, Daily at bedtime, # 90 capsule, Refills 1, Tot. Refills 1, Maintenance, 09/04/21 13:33:00 EST, Route to Pharmacy Electronically, [facility]/pharmacy #[id number], 162.56, cm, 06/29/21 14:06:00 EDT, Height, 90.6, kg, 04/27/21 9:57:00 EDT, Dry W... Start Date: 09/04/21 Status: Ordered omeprazole 20 mg oral enteric coated capsule 1 capsule = 20 mg, By Mouth, Daily, # 90 capsule, 3 Refills, Maintenance, 10/10/21 13:07:00 EST, ECCapsule, [facility]/pharmacy #[id number], 162.56, cm, 10/10/21 12:54:00 EST, Height, 90.6, kg, 04/27/21 9:57:00 EDT, Dry Weight Start Date: 10/10/21 Status: Ordered simvastatin 20 mg oral tablet 20 mg, 1, tablet, By Mouth, Daily at bedtime, # 90 tablet, Refills 3, Tot. Refills 3, Maintenance, 03/14/21 14:34:00 EDT, Route to Pharmacy Electronically, [facility]/pharmacy #[id number], 162.56, cm, 03/14/21 14:12:00 EDT, Height, [...] Right breast cancer, T1b N0, ER positive, [place] positive, HER-2/mickey negative, diagnosed in 2008. Left [...]
--- OUTSIDE RECORDS SUMMARY | 2023-12-29 21:00 | XMS_ITS | Continuity of Care Document ---
Author Organization [facility] ter Address [address] [place] [address]- Care Team Providers Care Senior Hadoop Developer Name Role Phone Katina Zuniga MD Primary Care Physician [phone] [place] [facility] [place]01[place] - 04/02/[address] [address] Discharge Disposition: A-Transfer VNA/Home Health Attending Physician: Mela Gottlieb MD Admitting Physician: Isidro Cardoso MD Referring Physician: Not on Staff, Referring [...] 8 11/19/12 Given 1Result Comment: Done at [facility] 2Result Comment: Done at [facility] 3Location History: [facility] 4Result Comment: [07/22/2017] [facility] [id number] [facility] 6Result Comment: [06/12/2015] high dose 7Admin Note: VIS GIVEN 8Admin Note: vis given Medications amLODIPine 5 mg oral tablet 5 mg, Tablet, By Mouth, 04/02/22 9:00:00 EDT Start Date: 04/02/22 Stop Date: 04/02/22 Status: Completed amLODIPine 5 mg oral tablet 1 tablet [...] 01/03/22 11:36:00 EDT, Route to Pharmacy Electronically, [facility]/pharmacy #[id number], Partial fill upon patient requestif the prescription is for a schedule II opioid kirit... Start Date: 01/03/22 Status: Ordered divalproex sodium 250 mg oral enteric coated tablet = 250 mg, By Mouth, 2 times a day, # 60 tablet, 0 Refills, Maintenance, 04/02/22 16:12:00 EDT, Tablet, [facility]/pharmacy #[id number], Partial fill upon patient request if the prescription is for a schedule II opioid drug., 168, cm, 04/02/22 15:54:00 EDT, Height,... Start Date: 04/02/22 Stop Date: 05/02/22 Status: Ordered docusate-senna 50 mg-8.6 mg oral capsule 1 capsule, By Mouth, 2 times a day, PRN Constipation, for 10 days, # 20 capsule, 0 Refills, Acute 04/12/22 16:14:00 EDT, 04/02/22 16:14:00 EDT, Capsule, [facility]/pharmacy [id number], Partial fill upon patient request if the prescription is for a schedule II opi... Start Date: 04/02/22 Stop Date: 04/12/22 Status: Ordered freestyle karsten sensors 14 day [...] LEG SWELLING Start Date: 03/29/22 Status: Ordered hydrocortisone 1% topical cream See Instructions, Topically 3 times a day, # 45 Gm, 0 Refills, Acute 04/09/22 19:00:00 EDT, 04/02/22 16:12:00 EDT, Cream, [facility]/pharmacy #[id number], Partial fill upon patient request if the prescription is for a schedule II opioid drug., Topically 3 times a... Start Date: 04/02/22 Stop Date: 04/09/22 Status: Ordered lanolin topical - ointment 1 application, Topically, 3 times a day, PRN as needed for dry skin, # 113 Gm, 0 Refills, Maintenance, 02/04/22 8:30:00 EDT, Ointment, [facility]/pharmacy #[id number], Partial fill upon patient [...] 3 Refills, Maintenance, 10/10/21 13:07:00 EST, ECCapsule, [facility]/pharmacy #[id number], 162.56, cm, 10/10/21 12:54:00 EST, Height, 90.6, kg, 04/27/21 9:57:00 EDT, Dry Weight Start Date: 10/10/21 Status: Ordered simvastatin 20 mg oral tablet 20 mg, 1, tablet, By Mouth, Daily at bedtime, # 90 tablet, Refills 3, Tot. Refills 3, Maintenance, 01/03/22 11:37:00 EDT, Route to Pharmacy Electronically, [facility]/pharmacy #[id number], 162.56, cm, 01/03/22 11:11:00 [...] urgency(Confirmed) Active Venous insufficiency(Confirmed) Active Wheezing(Confirmed) Active Results Radiology Reports * Exam Date Time Procedure Performing Provider Status 04/02/22 12:10 PM Chest Portable Laurie Douglass; Auth (V erified) Notes: (Chest Portable) Reason For Exam: low sats on room air;Other: RESULT: Chest Portable Chest Portable REASON: low sats on room air; Clinical Question(s): Atelectasis / Atelectasis COMPARISON: 02/01/2022 FINDINGS: LINES AND TUBES: None. LUNGS AND PLEURA: Minimal linear scarring or atelectasis at the left base. Otherwise clear lungs. No pleural effusion. No pneumothorax. HEART, MEDIASTINUM AND EDER: Heart is normal in size. Aorta is mildly calcified. BONES AND SOFT TISSUES: No acute abnormality. Bilateral chest wall surgical clips. IMPRESSION: No evidence of acute abnormality. WSN: [id number] Ordering Physician: Mela Gottlieb Dictated By: Zack Jj MD Dictated Date/Time: 04/02/22 1:42 pm Reviewed By: Zack Jj MD Signed By: Zack Jj MD Signed Date/Time: 04/02/22 1:42 pm Transcribed By: SAPPHIRE Transcribed Date/Time: 04/02/22 1:41 pm Vital Signs Most recent to oldest [Reference Range]: 1 2 3 Height 168 cm (04/02/22 3:54 PM) 168 cm (04/01/22 11:46 PM) 168 cm (04/01/22 7:59 PM) Weight 74.1 kg (03/30/22 4:16 AM) Oxygen Saturation [94-100 %] 94 % (04/02/22 3:54 PM) 92 % *L* (04/02/22 7:00 AM) 92 % *L* (04/01/22 11:46 PM) Pulse Rate [55-90 bpm] 88 bpm (04/02/22 3:54 PM) 98 bpm *H* (04/02/22 7:00 AM) 92 bpm *H* (04/01/22 11:46 PM) Body Mass Index [18.5-24.99] 26.25 *H* (03/30/22 4:16 AM) Blood Pressure [90-138/55-84 mm Hg] 142/66mm Hg *H* (04/02/22 3:54 PM) 160/77mm Hg *H* (04/02/22 8:27 AM) 160/77mm Hg *H* (04/02/22 7:00 AM) Respiratory Rate [16-30 br/min] 16 br/min (04/02/22 3:54 PM) 18 br/min (04/02/22 7:00 AM) 18 br/min (04/01/22 11:46 PM) Temperature [96.8-100.4 DegF] 97.3 DegF (04/02/22 3:54 PM) 98.3 DegF (04/02/22 7:00 AM) 98.4 DegF (04/01/22 11:46 PM) Liters per Minute 1 L/min (03/29/22 8:41 AM) 2 L/min (03/29/22 1:23 AM) 4 L/min (03/28/22 11:15 PM) Mode of Delivery (Oxygen) Room air (04/02/22 3:54 PM) Room air (04/02/22 7:00 AM) Room air (04/01/22 11:46 PM) Blood pressure sites Arm, left (04/02/22 3:54 PM) Arm, left (04/02/22 7:00 AM) Arm, left (04/01/22 11:46 PM) Temperature Route Oral (04/02/22 3:54 PM) Oral (04/02/22 7:00 AM) Oral (04/01/22 11:46 PM) Dry Weight 74.1 kg (03/30/22 4:16 AM) Social History Social History Type Response Smoking Status Former smoker, quit more than 30 days ago entered on: 11/16/21 Sex
--- OUTSIDE RECORDS SUMMARY | 2023-12-29 21:01 | XMS_ITS | Continuity of Care Document ---
Author Organization [facility] Address [address] [place] [address]- Care Team Providers Care Spring Forger Name Role Phone Nadia GUNDERSON, Katina Rosado Primary Care Physician [place] [facility] [place] 09/21/21 - 10/21/21 [facility] [address] [place] [address]- Allergies, Adverse Reactions, Alerts No Known Allergies [...] 8 11/19/12 Given 1Result Comment: Done at [facility] 2Result Comment: Done at [facility] 3Location History: [facility] 4Result Comment: [07/22/2017] [facility] [id number] [facility] 6Result Comment: [06/12/2015] high dose 7Admin Note: VIS GIVEN 8Admin Note: vis given Medications aspirin 325 mg oral delayed release tablet 325 mg, 1, tablet, By Mouth, Daily, # 30 tablet, Refills 0, Tot. Refills 0, Maintenance, 04/27/21 16:38:00 EDT, Route to Pharmacy Electronically, [facility]/pharmacy #[id number], Partial fill upon patient requestif the prescription is for a schedule II opioid kirit... Start Date: 04/27/21 Status: Ordered aspirin 325 mg oral delayed release tablet 325 mg, 1, tablet, By Mouth, Daily, # 90 tablet, Refills 3, Tot. Refills 3, Maintenance, 10/10/21 13:09:00 EST, [id number] Partial fill upon patient requestif the prescription is for a schedule II opioid kirit... Start Date: 10/10/21 Status: Ordered atenolol 25 mg oral tablet 25 mg, 1, tablet, By Mouth, Daily, # 90 tablet, Refills 3, Tot. Refills 3, Maintenance, 12/10/21 15:42:00 EDT, Route to Pharmacy Electronically, [facility]/pharmacy #[id number], 162.56, cm, 10/10/21 12:54:00 EST,Height, 90.6, [...] 03/14/21 14:36:00 EDT, Route to Pharmacy Electronically, [facility]/pharmacy #[id number], 162.56, cm, 03/14/21 14:12:00 EDT, Height, 89.8, kg, 03/14/21 14:12... Start Date: 03/14/21 Stop Date: 05/09/21 Status: Ordered levocetirizine 5 mg oral tablet 1 tablet, By Mouth, Daily in PM, # 30 tablet, 10 Refills, [facility] STORE [id number], 30, TAKE 1 TABLET BY MOUTH EVERY EVENING, 162.56, cm, 10/10/21 13:15:00 EST, Height, 90.6, kg, 04/27/21 9:57:00 EDT, Dry Weight Start Date: 10/16/21 Status: Ordered lithium 300 mg oral tablet 3 tablet = 900 mg, By Mouth, Daily at bedtime, # 270 tablet, 1 Refills, Maintenance, 09/04/21 17:14:00 EST, [facility]/pharmacy #[id number], 162.56, cm, 06/29/21 14:06:00 EDT, Height, 90.6, kg, 04/27/21 9:57:00 EDT, Dry Weight Start Date: 09/04/21 Status: Ordered metFORMIN 1000 mg oral tablet 1 tablet = 1,000 mg, By Mouth, Daily, # 90 tablet, 1 Refills, Maintenance, 09/21/21 9:52:00 EST, Tablet, [facility]/pharmacy #[id number], 162.56, cm, 09/19/21 13:07:00 EST, Height, 90.6, kg, 04/27/21 9:57:00 EDT,Dry Weight Start Date: 09/21/21 Status: Ordered nortriptyline 50 mg oral capsule 1, capsule, By Mouth, Daily at bedtime, # 90 capsule, Refills 1, Tot. Refills 1, Maintenance, 09/04/21 13:33:00 EST, Route to Pharmacy Electronically, [facility]/pharmacy #[id number], 162.56, cm, 06/29/21 14:06:00 EDT, Height, 90.6, kg, 04/27/21 9:57:00 EDT, Dry W... Start Date: 09/04/21 Status: Ordered omeprazole 20 mg oral enteric coated capsule 1 capsule = 20 mg, By Mouth, Daily, # 90 capsule, 3 Refills, Maintenance, 10/10/21 13:07:00 EST, ECCapsule, [facility]/pharmacy #[id number], 162.56, cm, 10/10/21 12:54:00 EST, Height, 90.6, kg, 04/27/21 9:57:00 EDT, Dry Weight Start Date: 10/10/21 Status: Ordered simvastatin 20 mg oral tablet 20 mg, 1, tablet, By Mouth, Daily at bedtime, # 90 tablet, Refills 3, Tot. Refills 3, Maintenance, 03/14/21 14:34:00 EDT, Route to Pharmacy Electronically, [facility]/pharmacy #[id number], 162.56, cm, 03/14/21 14:12:00 EDT, [...]
--- OUTSIDE RECORDS SUMMARY | 2023-12-29 21:01 | XMS_ITS | Continuity of Care Document ---
Author Organization [facility] Address [address] [place] [address]- Care Team Providers Care Tunneller Name Role Phone Katina Zuniga MD Primary Care Physician [phone] Encounter [facility] Date(s): 04/15/22 - 05/15/22 [facility] [address] [place], [place] [address] Allergies, Adverse Reactions, Alerts No [...] 8 11/19/12 Given 1Result Comment: Done at [facility] 2Result Comment: Done at [facility] 3Location History: [facility] 4Result Comment: [07/22/2017] [facility] [id number] 5[facility] 6Result Comment: [06/12/2015] high [...] 01/03/22 11:36:00 EDT, Route to Pharmacy Electronically, [facility]/pharmacy #[id number], Partial fill upon patient requestif the prescription is for a schedule II opioid kirit... Start Date: 01/03/22 Status: Ordered divalproex sodium 500 mg oral enteric coated tablet TAKE 1 TABLET BY MOUTH TWICE A DAY Start Date: 05/15/22 Status: Ordered freestyle karsten sensors 14 day freestyle kartsen sensors 14 day, See Instructions, # 30 [...] 0 Refills, Maintenance, 02/04/22 8:30:00 EDT, Ointment, [facility]/pharmacy #[id number], Partial fill upon patient request if [...] 01/03/22 11:37:00 EDT, Route to Pharmacy Electronically, [facility]/pharmacy #[id number], 162.56, cm, 01/03/22 11:11:00 EDT, Height, 78.4, kg, 11/16/21 22:27:00 EDT,... Start Date: 01/03/22 Stop Date: 12/29/22 Status: Ordered torsemide 20 mg oral tablet 1 tablet, By Mouth, Daily, PRN NEEDED FOR LEG SWELLING, # 90 tablet, 1 Refills, [facility] STORE [id number],168, cm, 04/02/22 15:54:00 EDT, Height, 74.1, kg, 03/30/22 4:57:00 EDT, Dry Weight Start Date: 04/05/22 Status: Ordered triamcinolone 0.1% topical cream 1 application, Topically, 2 times a day, PRN Rash, for 14 days, apply a thin film, # 60 Gm, 0 Refills, Acute 05/23/22 13:33:00 EDT, 05/09/22 13:33:00 EDT, Cream, [facility]/pharmacy #[id number], Partial fill uponpatient request if the prescription is for a schedu... Start Date: 05/09/22 Stop Date: 05/23/22 Status: Ordered Vitamin D3 1000 intl units oral capsule 1 capsule = 1,000 International_Units, By Mouth, Daily, # 90 capsule, 2 Refills, Maintenance, 01/03/22 11:38:00 EDT, Capsule, [facility]/pharmacy #[id number], 162.56, cm, 01/03/22 11:11:00 EDT, Height, [...] Maintenance,04/15/22 12:05:00 EDT, Route to Pharmacy Electronically, [facility]/pharmacy #[id number], let us know if not covered by [...] Team Personnel Name: Katina Zuniga MD Address: [address] [place] [address]
--- OUTSIDE RECORDS SUMMARY | 2023-12-29 21:01 | XMS_ITS | Continuity of Care Document ---
Author Organization [facility] Address [address] [place] [address]- Care Team Providers Care Parts Cataloger Name Role Phone Katina Zuniga MD Primary Care Phys[facility] - 05/05/22 [facility] [address] [place], [place] [address] Allergies, Adverse Reactions, Alerts No Known [...] 8 11/19/12 Given 1Result Comment: Done at [facility] 2Result Comment: Done at [facility] 3Location History: [address] 4Result Comment: [07/22/2017] [facility] [phone] [facility] 6Result Comment: [06/12/2015] high [...] 01/03/22 11:36:00 EDT, Route to Pharmacy Electronically, [facility]/pharmacy #[id number], Partial fill upon patient requestif the prescription is for a schedule II opioid kirit... Start Date: 01/03/22 Status: Ordered divalproex sodium 500 mg oral enteric coated tablet = 500 mg, By Mouth, 2 times a day, # 60 tablet, 2 Refills, Maintenance, 04/12/22 15:12:00 EDT, Tablet, [facility]/pharmacy #[id number], Partial fill upon patient [...] Refills, Maintenance, 02/04/22 8:30:00 EDT, [facility]intment, [id number], Partial fill upon patient request if the [...] 10/10/21 13:07:00 EST, [id number] 162[facility], cm, 10/10/21 12:54:00 EST, Height, 90.6, kg, 04/27/21 9:57:00 EDT, Dry Weight Start Date: 10/10/21 Status: Ordered simvastatin 20 mg oral tablet 20 mg, 1, tablet, By Mouth, Daily at bedtime, # 90 tablet, Refills 3, Tot. Refills 3, Maintenance, 01/03/22 11:37:00 EDT, [id number] 162.56, cm, 01/03/22 11:11:00 EDT, Height, 78.4, kg, 11/16/21 22:27:00 EDT,... Start Date: 01/03/22 Stop Date: 12/29/22 Status: Ordered torsemide 20 mg oral tablet 1 tablet, By Mouth, Daily, PRN NEEDED FOR LEG SWELLING, # 90 tablet, 1 Refills, [facility]ORE [id number],168, cm, 04/02/22 15:54:00 EDT, Height, 74.1, kg, 03/30/22 4:57:00 EDT, Dry Weight Start Date: 04/05/22 Status: Ordered Vitamin D3 1000 intl units oral capsule 1 capsule = 1,000 International_Units, By Mouth, Daily, # 90 capsule, 2 Refills, Maintenance, 01/03/22 11:38:00 EDT, [id number] 162.56, cm, 01/03/22 11:11:00 EDT, [...] Maintenance,04/15/22 12:05:00 EDT, Route to Pharmacy Electronically, [facility]/pharmacy #[id number], let us know if not covered by [...] Team Personnel Name: Katina Zuniga MD Address: [address] [place] [address]
--- OUTSIDE RECORDS SUMMARY | 2023-12-29 21:01 | XMS_ITS | Continuity of Care Document ---
Author Organization [facility] Address [address] [place] [address]- Care Team Providers Care Employee Services Manager Name Role Phone Nadia GUNDERSON, Katina Rosado Primary Care Physician [facility]): [facility] - 12/13/[address] [address]- Discharge Disposition: A-D/C Home Attending Physician: Edith Mcgraw MD Admitting Physician: Edith Mcgraw MD Referring Physician: Edith Mcgraw MD Allergies, Adverse Reactions, Alerts Substance Reaction [...] [facility] [address] 2Result Comment: [07/22/2017] [facility] [id number] 3[facility] 4Result Comment: [06/12/2015] high [...] Route to Pharmacy Electronically, [facility]/pharmacy #[id number], 160, cm, 10/27/19 13:44:00 EST, Height, 94.3, kg, 03/02/19 15:45:00 EDT, Dry Weight Start Date: 10/27/19 Stop Date: 10/21/20 Status: Ordered freestyle karsten sensors 14 day [...] tablet, 2 Refills, Maintenance, 09/05/20 14:33:00 EST, [facility]/pharmacy #[id number], 160, cm, 09/05/20 14:19:00 EST, Height, 94.3, kg, 03/02/19 15:45:00 EDT, Dry Weight Start Date: 09/05/20 Status: Ordered metFORMIN 1000 mg oral tablet 1 tablet = 1,000 mg, By Mouth, Daily, # 90 tablet, 3 Refills, Maintenance, 10/27/19 13:59:00 EST, Tablet, [facility]/pharmacy #[id number], 160, cm, 10/27/19 13:44:00 EST, Height, 94.3, kg, 03/02/19 15:45:00 EDT, Dry Weight Start Date: 10/27/19 Status: Ordered nortriptyline 50 mg oral capsule 1, capsule, By Mouth, Daily at bedtime, # 90 capsule, Refills 1, Tot. Refills 0, Maintenance, 09/04/20 15:55:00 EST, Route to Pharmacy Electronically, [facility] STORE [id number], 160, cm, 06/27/20 14:03:00 EST,Height, 94.3, kg, 03/02/19 15:45:00 EDT, Dry Weight Start Date: 09/04/20 Status: Ordered omeprazole 20 mg oral enteric coated capsule 1 capsule = 20 mg, By Mouth, Daily, # 90 capsule, 3 Refills, Maintenance, 09/05/20 14:34:00 EST, ECCapsule, [facility]/pharmacy #[id number], 160, cm, 09/05/20 14:19:00 EST, Height, 94.3, kg, 03/02/19 15:45:00 EDT, Dry Weight Start Date: 09/05/20 Status: Ordered simvastatin 20 mg oral tablet 20 mg, 1, tablet, By Mouth, Daily at bedtime, # 90 tablet, Refills 1, Tot. Refills 1, Maintenance, 12/11/20 15:09:00 EDT, Route to Pharmacy Electronically, [facility]/pharmacy #[id number], 162.56, cm, 12/05/20 16:18:00 EDT, [...] Right breast cancer, T1b N0, ER positive, [place] positive, HER-2/mickey negative, diagnosed in 2008. 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) 09/25/08 Active Pure hypercholesterolemia(Confirmed) Active Urinary urgency(Confirmed) Active Vital Signs Most recent to oldest [Reference Range]: 1 2 3 Height 162.56 cm (12/13/20 6:45 AM) 162.56 cm (12/05/20 4:18 PM) Weight 91 kg (12/13/20 6:45 AM) 88.18 kg (12/05/20 4:18 PM) Oxygen Saturation [94-100 %] 93 % *L* (12/13/20 10:45 AM) 96 % (12/13/20 10:30 AM) 92 % *L* (12/13/20 10:00 AM) Pulse Rate [55-90 bpm] 69 bpm (12/13/20 6:45 AM) Body Mass Index [18.5-24.99] 34.44 *>HHI* (12/13/20 6:45 AM) 33.37 *>HHI* (12/05/20 4:18 PM) Blood Pressure [90-138/55-84 mm Hg] 125/49mm Hg (12/13/20 10:45 AM) 129/50mm Hg (12/13/20 10:00 AM) 133/55mm Hg (12/13/20 9:45 AM) Respiratory Rate [16-30 br/min] 17 br/min (12/13/20 10:45 AM) 15 br/min *L* (12/13/20 10:30 AM) 13 br/min *L* (12/13/20 10:00 AM) Temperature [96.8-100.4 DegF] 97.5 DegF (12/13/20 10:45 AM) 97.9 DegF (12/13/20 8:15 AM) 97.1 DegF (12/13/20 6:45 AM) Liters per Minute 2 L/min (12/13/20 9:45 AM) 2 L/min (12/13/20 9:30 AM) 2 L/min (12/13/20 9:15 AM) Mode of Delivery (Oxygen) Room air (12/13/20 10:45 AM) Room air (12/13/20 10:30 AM) Room air (12/13/20 10:00 AM) Blood pressure sites Arm, right (12/13/20 10:45 AM) Arm, right (12/13/20 10:00 AM) Arm, right (12/13/20 9:45 AM) Temperature Route Temporal (12/13/20 10:45 AM) Temporal (12/13/20 8:15 AM) Temporal (12/13/20 6:45 AM) Dry Weight 91 kg (12/13/20 6:45 AM) 88.18 kg (12/05/20 4:18 PM) Weight Obtained Via Standing scale (12/13/20 6:45 AM) Patient/family stated (12/05/20 4:18 PM) Dry Weight Obtained Via Standing scale (12/13/20 6:45 AM) Patient/family stated (12/05/20 4:18 PM) Social History Social History Type Response Smoking Status Former smoker; Other : quit 2012; entered on: 01/12/15 Sex
--- OUTSIDE RECORDS SUMMARY | 2023-12-29 21:01 | XMS_ITS | Continuity of Care Document ---
Author Organization [facility] Address [address] [place] [address]- Care Team Providers Care Unit Receptionist Name Role Phone Katina Zuniga MD Primary Care Physician [facility]): 06[facility]/22 - 07/11/22 [facility] [address] [place], [place] [address] Allergies, Adverse Reactions, Alerts No Known Allergies Immunizations Given and Recorded Vaccine Date Status Refusal Reason influenza virus vaccine, inactivated 1 06/07/22 Gi xi influenza virus vaccine, inactivated 2 06/08/18 Re corded influenza virus vaccine, inactivated 3 07/22/17 Gi xi influenza virus vaccine, inactivated 09/20/16 Ryan rded influenza virus vaccine, inactivated 07/06/14 Give n SARS-CoV-2 mRNA ([id number]) vax 02/24/22 Recorded SARS-CoV-2 (COVID-19) mRNA BNT-162b2 [...] tetanus/diphtheria/pertussis, acel(Tdap) 9 11/19/12 Given 1Result Comment: [facility] [phone] 2Location History: [address] 3Result Comment: [07/22/2017] [facility] [id number] 4Result Comment: Done at [facility] 5Result Comment: Done at [facility] 6[facility] 7Result Comment: [...] 01/03/22 11:37:00 EDT, [id number] 162.56, cm, 01/03/22 11:11:00 EDT, Height, 78.4, kg, 11/16/21 22:27:00 EDT,... Start Date: 01/03/22 Stop Date: 12/29/22 Status: Ordered torsemide 20 mg oral tablet 1 tablet, By Mouth, Daily, PRN NEEDED FOR LEG SWELLING, # 90 tablet, 1 Refills, [facility] 28591,168, cm, 04/02/22 15:54:00 EDT, Height, 74.1, kg, [...] Team Personnel Name: Katina Zuniga MD Position: [facility] Primary Care Physician Member Role: PCP Address: Address: [address] [place] [address]- Name: Mily Stein RN Position: [facility] RN Member Role: Primary Care Nurse Name: Geno Cifuentes RN Position: [facility] RN Member Role: Primary Care Nurse Name: Coleen Reese RN Position: [facility] RN Member Role: Primary Care Nurse Name: Rosa Agustin NP Position: [facility] Associate Professional Member Role: Primary Care Nurse Address: Address: [address] [place] [address]- Name: Steve Saravia RN Position: [facility] RN Member Role: Primary Care Nurse Name: Edna Tom RN Position: [facility] RN Member Role: Primary Care Nurse Name: Ella Garcia RN Position: [facility] RN Member Role: Primary Care Nurse Name: Cy Benjamin DO Position: [facility] Renal MD Member Role: Lifetime Consulting Physician Address: Address: [address] [place], [place] [address] [place] [address]- Name: Migel Lopez RN Position: [facility] RN Member Role: Primary Care Nurse Name: Stacia Hernandez RN Position: [facility] RN Member Role: Primary Care Nurse Name: Lauren Lund RN Position: [facility] ED RN W/OE and Tasks Member Role: Primary Care Nurse Name: Marisol Grady RN Position: [facility] RN Member Role: Primary Care Nurse Name: Corinna Orozco RN Position: [facility] RN Member Role: Primary Care Nurse Name: Flory Fernandez RN Position: S RN Member Role: Primary Care Nurse Name: Paula Foss RN Position: S RN Member Role: Primary Care Nurse Address: Address: [address] [place] [email or web address] Name: Arnol Travis RN Position: S RN Member Role: Primary Care Nurse Name: Hina Puckett Position: S RN Member Role: Primary Care Nurse Name: Nidia De Oliveira Position: S RN Member Role: Primary Care Nurse Care Team Related Persons Name: RAFAELA ANDREWS Address: home [address] [place] [address] Name: VALENTINA ARNOLD Address: home [address] [address] [place] [address]
--- OUTSIDE RECORDS SUMMARY | 2023-12-29 21:01 | XMS_ITS | Continuity of Care Document ---
Author Organization [facility] Address [address] [place] [address]- Care Team Providers Care Is Project Manager Name Role Phone Katina Zuniga MD Primary Care Physician [facility]s): 06/28/22 - 07/28/22 [facility] [address] [place], [place] [address] Allergies, Adverse Reactions, Alerts No Known Allergies Immunizations Given and Recorded Vaccine Date Status Refusal Reason influenza virus vaccine, inactivated 1 06/07/22 Gi xi influenza virus vaccine, inactivated 2 06/08/18 Re corded influenza virus vaccine, inactivated 3 07/22/17 Gi xi influenza virus vaccine, inactivated 09/20/16 Ryan rded influenza virus vaccine, inactivated 07/06/14 Give n SARS-CoV-2 mRNA ([id number]) vax 02/24/22 Recorded SARS-CoV-2 (COVID-19) mRNA BNT-162b2 [...] tetanus/diphtheria/pertussis, acel(Tdap) 9 11/19/12 Given 1Result Comment: [facility] [phone] 2Location History: [address] 3Result Comment: [07/22/2017] [facility] [id number] 4Result Comment: Done at [facility] 5Result Comment: Done at [facility] 7Result Comment: [...] 3 Refills, Maintenance, 10/10/21 13:07:00 EST, [id number] 162.56, cm, 10/10/21 12:54:00 EST, Height, 90.6, kg, 04/27/21 9:57:00 EDT, Dry Weight Start Date: 10/10/21 Status: Ordered simvastatin 20 mg oral tablet 20 mg, 1, tablet, By Mouth, Daily at bedtime, # 90 tablet, Refills 3, Tot. Refills 3, Maintenance, 01/03/22 11:37:00 EDT, [id number], 162.56, cm, 01/03/22 11:11:00 EDT, Height, 78.4, kg, 11/16/21 22:27:00 EDT,... Start Date: 01/03/22 Stop Date: 12/29/22 Status: Ordered torsemide 20 mg oral tablet 1 tablet, By Mouth, Daily, PRN NEEDED FOR LEG SWELLING, # 90 tablet, 1 Refills, [facility] 90448,168, cm, 04/02/22 15:54:00 EDT, Height, 74.1, kg, [...] Team Personnel Name: Katina Zuniga MD Position: [facility] Primary Care Physician Member Role: PCP Address: Address: [address] [place] [address]- Name: Mily Stein RN Position: [facility] RN Member Role: Primary Care Nurse Name: Geno Cifuentes RN Position: [facility] RN Member Role: Primary Care Nurse Name: Rosa Agustin NP Position: [facility] Associate Professional Member Role: Primary Care Nurse Address: Address: [address] [place] [address]- Name: Steve Saravia RN Position: [facility] RN Member Role: Primary Care Nurse Name: Ella Garcia RN Position: [facility] RN Member Role: Primary Care Nurse Name: Cy Benjamin DO Position: [facility] Renal MD Member Role: Lifetime Consulting Physician Address: Address: [address] [place], [place] [address] [place] [address]- Name: Migel Lopez RN Position: [facility] RN Member Role: Primary Care Nurse Name: Stacia Hernandez RN Position: [facility] RN Member Role: Primary Care Nurse Name: Lauren Lund RN Position: [facility] ED RN W/OE and Tasks Member Role: Primary Care Nurse Name: Marisol Grady RN Position: [facility] RN Member Role: Primary Care Nurse Name: Corinna Orozco RN Position: [facility] RN Member Role: Primary Care Nurse Name: Flory Fernandez RN Position: [facility] RN Member Role: Primary Care Nurse Name: Paula Foss RN Position: [facility] RN Member Role: Primary Care Nurse Address: Address: [address] [place] [address]- [place] Name: Arnol Travis RN Position: S RN Member Role: Primary Care Nurse Name: Nidia De Oliveira Position: S RN Member Role: Primary Care Nurse Care Team Related Persons Name: RAFAELA ANDREWS Address: home [address] [place] [address] Name: VALENTINA ARNOLD Address: home [address] [address]
--- OUTSIDE RECORDS SUMMARY | 2023-12-29 21:01 | XMS_ITS | Continuity of Care Document ---
Author Organization [facility] Address [address] [place] [address]- Care Team Providers Care Nurse Gynecology Name Role Phone Katina Zuniga MD Primary Care Physician Encounter [facility] [id number] Date(s): 01/03/22 - 01/10/22 [facility] [address] [place], [place] [address] Encounter Diagnosis Bipolar disorder(Discharge Diagnosis) - 01/03/22 Diabetes(Discharge Diagnosis) - 01/03/22 Hypertension(Discharge Diagnosis) - 01/03/22 Attending Physician: Katina Zuniga MD Allergies, Adverse [...] Given 1Result Comment: Done at [facility] 2Result Comment: Done at [facility] 3Location History: [address] [facility] 4Result Comment: [07/22/2017] formerly named [facility] [id number] 5[facility] 6Result Comment: [06/12/2015] high dose 7Admin Note: VIS GIVEN 8Admin Note: vis given Medications amLODIPine 10 mg oral tablet 10 mg, 1, tablet, By Mouth, Daily, # 90 tablet, Refills 2, Tot. Refills 2, Maintenance, 01/03/22 11:39:00 EDT, Route to Pharmacy Electronically, [facility]/pharmacy #[id number], Partial fill upon patient request if the prescription is for a schedule II opioid drug... Start Date: 01/03/22 Status: Ordered aspirin 325 mg oral delayed release tablet 325 mg, 1, tablet, By Mouth, Daily, # 90 tablet, Refills 2, Tot. Refills 2, Maintenance, 01/03/22 11:36:00 EDT, Route to Pharmacy Electronically, [facility]/pharmacy #[id number], Partial fill upon patient requestif the prescription is for a schedule II opioid kirit... Start Date: 01/03/22 Status: Ordered Diflucan 150 mg oral tablet 1 tablet = 150 mg, By Mouth, Every 48 hours, # 3 tablet, 0 Refills, Acute 02/02/22 11:35:00 EDT, 01/03/22 11:35:00 EDT, Tablet, [facility]/pharmacy #[id number], Partial fill upon patient request if [...] 01/08/22 15:28:00 EDT, Route to Pharmacy Electronically, [facility]/pharmacy #[id number],dose change, 162.56, cm, 01/03/22 11:11:00 EDT, Hei... Start Date: 01/08/22 Status: Ordered metFORMIN 500 mg oral tablet, extended release 1 tablet = 500 mg, By Mouth, Daily, # 90 tablet, 1 Refills, Maintenance, 01/03/22 11:36:00 EDT, ER Tablet, [facility]/pharmacy #[id number], Partial fill upon patient request if the prescription is for a schedule II opioid drug., 162.56, cm, 01/03/22 11:11:00 EDT,... Start Date: 01/03/22 Status: Ordered nortriptyline 25 mg oral capsule 25 mg, 1, capsule, By Mouth, Daily at bedtime, # 90 capsule, Refills 2, Tot. Refills 2, Maintenance, 01/03/22 11:39:00 EDT, Route to Pharmacy Electronically, [facility]/pharmacy #[id number], Partial fill upon patient request if [...] 11:37:00 EDT, Route to Pharmacy Electronically, [facility]/pharmacy #[id number], 162.56, cm, 01/03/22 11:11:00 EDT, Height, 78.4, kg, 11/16/21 22:27:00 EDT,... Start Date: 01/03/22 Stop Date: 12/29/22 Status: Ordered Vitamin D3 1000 intl units oral capsule 1 capsule = 1,000 International_Units, By Mouth, Daily, # 90 capsule, 2 Refills, Maintenance, 01/03/22 11:38:00 EDT, Capsule, [facility]/pharmacy #[id number], 162.56, cm, 01/03/22 11:11:00 EDT, Height, 78.4, kg, 11/16/21 22:27:00 EDT, Dry Weight Start Date: 01/03/22 Status: Ordered Problem List Condition Effective Dates Status Health Status Inform ant Bipolar disorder(Confirmed) Active Breast cancer, Right breast cancer, T1b N0, ER positive, [place] positive, HER-2/mickey negative, diagnosed in 2008. Left [...] Clinical Service Informant Bipolar disorder Discharge Diagnosis 01/03/22 Diabetes Discharge Diagnosis 01/03/22 Hypertension Discharge Diagnosis 01/03/22 Vital Signs Most recent to oldest [Reference Range]: 1 Height 162.56 cm (01/03/22 11:11 AM) Weight 83.1 kg (01/03/22 11:11 AM) Oxygen Saturation [94-100 %] 92 % *L* (01/03/22 11:11 AM) Pulse Rate [55-90 bpm] 84 bpm (01/03/22 11:11 AM) Body Mass Index [18.5-24.99] 31.45 *>HHI* (01/03/22 11:11 AM) Blood Pressure [90-138/55-84 mm Hg] 120/ 70mm Hg (01/03/22 11:11 AM) Mode of Delivery (Oxygen) Room air (01/03/22 11:11 AM) Blood pressure sites Arm, right (01/03/22 11:11 AM) Social History Social History Type Response Smoking Status Former smoker, quit more than 30 days ago entered on: 11/16/21 Sex
--- OUTSIDE RECORDS SUMMARY | 2023-12-29 21:01 | XMS_ITS | Continuity of Care Document ---
Author Organization [facility] Address [address] [place] [address]- Care Team Providers Care Controller Operations And Hr Manager Name Role Phone Katina Zuniga MD Primary Care Physician Encounter [facility] ACCT R [id number] Date(s): 09/06/21 - 05/08/[address] [address]- Discharge Disposition: A-D/C Home Attending Physician: Katina [...] 11/19/12 Given 1Result Comment: Done at [facility] 2Result Comment: Done at [facility] 3Location History: [address] [facility] 4Result Comment: [07/22/2017] [facility] [id number] 5[facility] 6Result Comment: [06/12/2015] high [...] 01/03/22 11:36:00 EDT, Route to Pharmacy Electronically, [facility]/pharmacy #[id number], Partial fill upon patient requestif the prescription is for a schedule II opioid kirit... Start Date: 01/03/22 Status: Ordered divalproex sodium 500 mg oral enteric coated tablet = 500 mg, By Mouth, 2 times a day, # 60 tablet, 2 Refills, Maintenance, 04/12/22 15:12:00 EDT, Tablet, [facility]/pharmacy #[id number], Partial fill upon patient request [...] 0 Refills, Maintenance, 02/04/22 8:30:00 EDT, Ointment, [facility]/pharmacy #[id number], Partial fill upon patient request if the [...] 3 Refills, Maintenance, 10/10/21 13:07:00 EST, ECCapsule, [facility]/pharmacy #[id number], 162.56, cm, 10/10/21 12:54:00 EST, Height, 90.6, kg, 04/27/21 9:57:00 EDT, Dry Weight Start Date: 10/10/21 Status: Ordered simvastatin 20 mg oral tablet 20 mg, 1, tablet, By Mouth, Daily at bedtime, # 90 tablet, Refills 3, Tot. Refills 3, Maintenance, 01/03/22 11:37:00 EDT, Route to Pharmacy Electronically, [facility]/pharmacy #[id number], 162.56, cm, 01/03/22 11:11:00 EDT, Height, 78.4, kg, 11/16/21 22:27:00 EDT,... Start Date: 01/03/22 Stop Date: 12/29/22 Status: Ordered torsemide 20 mg oral tablet 1 tablet, By Mouth, Daily, PRN NEEDED FOR LEG SWELLING, # 90 tablet, 1 Refills, [facility] 82123,168, cm, 04/02/22 15:54:00 EDT, Height, 74.1, kg, 03/30/22 4:57:00 EDT, Dry Weight Start Date: 04/05/22 Status: Ordered Vitamin D3 1000 intl units oral capsule 1 capsule = 1,000 International_Units, By Mouth, Daily, # 90 capsule, 2 Refills, Maintenance, 01/03/22 11:38:00 EDT, Capsule, [facility]/pharmacy #[id number], 162.56, cm, 01/03/22 11:11:00 EDT, [...] Maintenance,04/15/22 12:05:00 EDT, Route to Pharmacy Electronically, [facility]/pharmacy #[id number], let us know if not covered by [...] Team Personnel Name: Katina Zuniga MD Address: [address]
--- OUTSIDE RECORDS SUMMARY | 2023-12-29 21:01 | XMS_ITS | Continuity of Care Document ---
Author Organization [facility] Urgent [facility] Address [address] [place] [address]- Care Team Providers Care Pre Parole Counseling Aide Name Role Phone Nadia GUNDERSON, Katina Rosado Primary Care Physician [place] [facility] [place]10[place]21 - 09/09/21 [facility] [address] [place] [address]- Attending Physician: Merlyn Murillo Admitting Physician: Merlyn [...] 8 11/19/12 Given 1Result Comment: Done at [facility] 2Result Comment: Done at [facility] 4Result Comment: [07/22/2017] [facility] [id number] 5Location History: [facility] 6Result Comment: [06/12/2015] high dose 7Admin Note: VIS GIVEN 8Admin Note: vis given Medications aspirin 325 mg oral delayed release tablet 325 mg, 1, tablet, By Mouth, Daily, # 30 tablet, Refills 0, Tot. Refills 0, Maintenance, 04/27/21 16:38:00 EDT, [id number] Partial fill upon patient requestif [...] 12/15/20 15:42:00 EDT, [id number], 162.[facility], cm, 12/15/20 15:05:00 EDT,Height, 91, [...] 03/14/21 14:36:00 EDT, Route to Pharmacy Electronically, [facility]/pharmacy #[id number], 162.56, cm, 03/14/21 14:12:00 EDT, Height, 89.8, kg, 03/14/21 14:12... Start Date: 03/14/21 Stop Date: 05/09/21 Status: Ordered lithium 300 mg oral tablet 3 tablet = 900 mg, By Mouth, Daily at bedtime, # 270 tablet, 1 Refills, Maintenance, 09/04/21 17:14:00 EST, [facility]/pharmacy #[id number], 162.56, cm, 06/29/21 14:06:00 EDT, Height, 90.6, kg, 04/27/21 9:57:00 EDT, Dry Weight Start Date: 09/04/21 Status: Ordered metFORMIN 1000 mg oral tablet 1 tablet = 1,000 mg, By Mouth, Daily, # 90 tablet, 3 Refills, Maintenance, 12/15/20 15:41:00 EDT, Tablet, [facility]/pharmacy #[id number], 162.56, cm, 12/15/20 15:05:00 EDT, Height, 91, kg, 12/13/20 6:45:00 EDT, Dry Weight Start Date: 12/15/20 Status: Ordered nortriptyline 50 mg oral capsule 1, capsule, By Mouth, Daily at bedtime, # 90 capsule, Refills 1, Tot. Refills 1, Maintenance, 09/04/21 13:33:00 EST, Route to Pharmacy Electronically, [facility]/pharmacy #[id number], 162.56, cm, 06/29/21 14:06:00 EDT, Height, 90.6, kg, 04/27/21 9:57:00 EDT, Dry W... Start Date: 09/04/21 Status: Ordered omeprazole 20 mg oral enteric coated capsule 1 capsule = 20 mg, By Mouth, Daily, # 90 capsule, 3 Refills, Maintenance, 09/05/20 14:34:00 EST, ECCapsule, [facility]/pharmacy #[id number], 160, cm, 09/05/20 14:19:00 EST, Height, 94.3, kg, 03/02/19 15:45:00 EDT, Dry Weight Start Date: 09/05/20 Status: Ordered simvastatin 20 mg oral tablet 20 mg, 1, tablet, By Mouth, Daily at bedtime, # 90 tablet, Refills 3, Tot. Refills 3, Maintenance, 03/14/21 14:34:00 EDT, Route to Pharmacy Electronically, [facility]/pharmacy #[id number], 162.56, cm, 03/14/21 14:12:00 EDT, Height, [...]
--- OUTSIDE RECORDS SUMMARY | 2023-12-29 21:01 | XMS_ITS | Continuity of Care Document ---
Author Organization [facility] Address [address] [place] [address]- Care Team Providers Care Ticket Taker Name Role Phone Katina Zuniga MD Primary Care Physician [place] [facility] [place](s): 06/26/22 - 07/26/22 [facility] [address] [place] [id number] Attending Physician: Merlyn Murillo Admitting Physician: AdmMerlyn flannery Referring Physician: AdmtrMerlyn Allergies, Adverse Reactions, Alerts No Known Allergies Immunizations Given and Recorded Vaccine Date Status Refusal Reason influenza virus vaccine, inactivated 1 06/07/22 Gi xi influenza virus vaccine, inactivated 2 06/08/18 Re corded influenza virus vaccine, inactivated 3 07/22/17 Gi xi influenza virus vaccine, inactivated 09/20/16 Ryan rded influenza virus vaccine, inactivated 07/06/14 Give n SARS-CoV-2 mRNA ([id number]) vax 02/24/22 Recorded SARS-CoV-2 (COVID-19) mRNA BNT-162b2 [...] tetanus/diphtheria/pertussis, acel(Tdap) 9 11/19/12 Given 1Result Comment: [facility] [id number] [phone] 2Location History: [facility] 3Result Comment: [07/22/2017] [facility] [id number] 4Result Comment: Done at [facility] [...] 13:44:00 EST, Height, 94.3, kg, 03/02/19 15:45:00 EDTTonya. Start Date: 10/27/19 Status: Ordered FREESTYLE KIP [...] 3 Refills, Maintenance, 10/10/21 13:07:00 EST, ECCapsule, [facility]/pharmacy #[id number], 162.56, cm, 10/10/21 12:54:00 EST, Height, 90.6, kg, 04/27/21 9:57:00 EDT, Dry Weight Start Date: 10/10/21 Status: Ordered simvastatin 20 mg oral tablet 20 mg, 1, tablet, By Mouth, Daily at bedtime, # 90 tablet, Refills 3, Tot. Refills 3, Maintenance, 01/03/22 11:37:00 EDT, [id number], cm, 01/03/22 11:11:00 EDT, Height, 78.4, kg, 11/16/21 22:27:00 EDT,... Start Date: 01/03/22 Stop Date: 12/29/22 Status: Ordered torsemide 20 mg oral tablet 1 tablet, By Mouth, Daily, PRN NEEDED FOR LEG SWELLING, # 90 tablet, 1 Refills, [facility] STORE [id number],168, cm, 04/02/22 15:54:00 EDT, Height, 74.1, kg, [...] Team Personnel Name: Katina Zuniga MD Position: [facility] Primary Care Physician Member Role: PCP Address: Address: [address] [place] [address]- Name: Mily Stein RN Position: [facility] RN Member Role: Primary Care Nurse Name: Geno Cifuentes RN Position: [facility] RN Member Role: Primary Care Nurse Name: Rosa Agustin NP Position: [facility] Associate Professional Member Role: Primary Care Nurse Address: Address: [address] [place] [address]- Name: Steve Saravia RN Position: [facility] RN Member Role: Primary Care Nurse Name: Ella Garcia RN Position: [facility] RN Member Role: Primary Care Nurse Name: Cy Benjamin DO Position: [facility] Renal MD Member Role: Lifetime Consulting Physician Address: Address: [address] [place], [place] [address] [place] [address]- Name: Migel Lopez RN Position: [facility] RN Member Role: Primary Care Nurse Name: Stacia Hernandez RN Position: [facility] RN Member Role: Primary Care Nurse Name: Lauren Lund RN Position: [facility] ED RN W/OE and Tasks Member Role: Primary Care Nurse Name: Marisol Grady RN Position: [facility] RN Member Role: Primary Care Nurse Name: Corinna Orozco RN Position: [facility] RN Member Role: Primary Care Nurse Name: Flory Fernandez RN Position: S RN Member Role: Primary Care Nurse Name: Paula Foss RN Position: S RN Member Role: Primary Care Nurse Address: Address: [address] [place] [id number] Name: Arnol Travis RN Position: S RN Member Role: Primary Care Nurse Name: Nidia De Oliveira Position: S RN Member Role: Primary Care Nurse Care Team Related Persons Name: RAFAELA ANDREWS Address: home [address] [place] [address] Name: VALENTINA ARNOLD Address: home [address] [facility] [address] [place] [id number]
--- OUTSIDE RECORDS SUMMARY | 2023-12-29 21:01 | XMS_ITS | Continuity of Care Document ---
Author Organization [facility] Address [address] [place] [address]- Care Team Providers Care Bioinformatics Support Specialist Name Role Phone Katina Zuniga MD Primary Care Physician [phone] [place] [facility] [place](s): 09/05/20 - 09/12/20 [facility] [address] [place], [place] [address] Encounter Diagnosis Bipolar disorder(Discharge Diagnosis) - 09/05/20 Breast cancer, Right breast cancer, T1b N0, ER positive, MI positive, HER-2/mickey negative, diagnosedin 2008. 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) - 09/05/20 Diabetes(Discharge Diagnosis) - 09/05/20 Hypertension(Discharge Diagnosis) - 09/05/20 Depression(Discharge Diagnosis) - 09/05/20 Esophageal reflux (GERD)(Discharge Diagnosis) - 09/05/20 Osteopenia with high risk of fracture(Discharge Diagnosis) - 09/05/20 Attending Physician: Katina Zuniga MD Allergies, Adverse [...] tetanus/diphtheria/pertussis, acel(Tdap) 6 11/19/12 Given 1Location History: [facility] 2Result Comment: [07/22/2017] [facility] [id number] 3[facility] 4Result Comment: [06/12/2015] high [...] 10/27/19 14:06:00 EST, Route to Pharmacy Electronically, [facility]/pharmacy #[id number], 160, cm, 10/27/19 13:44:00 EST, Height, 94.3, kg, 03/02/19 15:45:00 EDT, Dry Weight Start Date: 10/27/19 Stop Date: 10/21/20 Status: Ordered Calcium Carbonate By Mouth, 1000mg, 0 Refills, Maintenance, 01/12/18 13:45:02 EDT Start Date: 01/12/18 Status: Ordered Fosamax 70 mg oral tablet 1 tablet = 70 mg, By Mouth, Every week, # 4 tablet, 11 Refills, Maintenance, 09/20/19 16:46:00 EST,Tablet, [facility]/pharmacy #[id number], 160, cm, 03/26/19 13:55:00 EDT, Height, [...] 01/26/20 12:49:00 EDT, Route to Pharmacy Electronically, [facility]/pharmacy #[id number], 160, cm, 01/21/20 10:58:00 EDT, Height, 94.3, kg, 03/02/19 15:45:00... Start Date: 01/26/20 Stop Date: 03/22/20 Status: Ordered lithium 300 mg oral tablet 3 tablet = 900 mg, By Mouth, Daily at bedtime, # 270 tablet, 2 Refills, Maintenance, 09/05/20 14:33:00 EST, [facility]/pharmacy #[id number], 160, cm, 09/05/20 14:19:00 EST, Height, 94.3, kg, 03/02/19 15:45:00 EDT, Dry Weight Start Date: 09/05/20 Status: Ordered metFORMIN 1000 mg oral tablet 1 tablet = 1,000 mg, By Mouth, Daily, # 90 tablet, 3 Refills, Maintenance, 10/27/19 13:59:00 EST, Tablet, [facility]/pharmacy #[id number], 160, cm, 10/27/19 13:44:00 EST, Height, 94.3, kg, 03/02/19 15:45:00 EDT, Dry Weight Start Date: 10/27/19 Status: Ordered mupirocin 2% topical ointment 1 application, Topically, 3 times a day, apply to leg wound, # 22 Gm, 3 Refills, Maintenance, 01/11/20 15:40:00 EDT, Ointment, [facility]/pharmacy #[id number], 1 application Topically 3 times a day,Instr:apply toleg wound, 160, cm, 10/27/19 13:44:00 EST, Height,... Start Date: 01/11/20 Status: Ordered nortriptyline 50 mg oral capsule 1, capsule, By Mouth, Daily at bedtime, # 90 capsule, Refills 1, Tot. Refills 0, Maintenance, 09/04/20 15:55:00 EST, Route to Pharmacy Electronically, [facility] [id number], 160, cm, 06/27/20 14:03:00 EST,Height, 94.3, kg, 03/02/19 15:45:00 EDT, Dry Weight Start Date: 09/04/20 Status: Ordered omeprazole 20 mg oral enteric coated capsule 1 capsule = 20 mg, By Mouth, Daily, # 90 capsule, 3 Refills, Maintenance, 09/05/20 14:34:00 EST, ECCapsule, [facility]/pharmacy #[id number], 160, cm, 09/05/20 14:19:00 EST, Height, 94.3, kg, 03/02/19 15:45:00 EDT, Dry Weight Start Date: 09/05/20 Status: Ordered simvastatin 20 mg oral tablet 20 mg, 1, tablet, By Mouth, Daily at bedtime, # 90 tablet, Refills 3, Tot. Refills 3, Maintenance, 06/30/19 14:01:33 EST, Route to Pharmacy Electronically, [id number], [facility]/pharmacy #[id number] Start Date: 06/30/19 Stop Date: 06/24/20 [...] Active Pure hypercholesterolemia(Confirmed) Active Urinary urgency(Confirmed) Active Diagnosis Diagnosis Type Effective Dates Health Status Clinical Service Informant Bipolar disorder Discharge Diagnosis 09/05/20 Breast cancer, Right breast cancer, T1b N0, ER positive, MI positive, HER-2/mickey negative, diagnosed in 2008. Left breast DCIS in 2008. Discharge Diagnosis 09/05/20 Diabetes Discharge Diagnosis 09/05/20 Hypertension Discharge Diagnosis 09/05/20 Depression Discharge Diagnosis 09/05/20 Esophageal reflux (GERD) Discharge Diagnosis 09/05/20 Osteopenia with high risk of fracture Discharge Diagnosis 09/05/20 Procedures Procedure Date Related Diagnosis Body Site Status Colonoscopy, flexible; diagn ostic, including collection of specimen(s) by brushing or washing, when performed (separate procedure) 1 05/16/20 Completed 1REPEAT IN 3 YEARS Vital Signs Most recent to oldest [Reference Range]: 1 Height 160 cm (09/05/20 2:19 PM) Weight 90.1 kg (09/05/20 2:19 PM) Oxygen Saturation [94-100 %] 93 % *L* (09/05/20 2:19 PM) Pulse Rate [55-90 bpm] 70 bpm (09/05/20 2:19 PM) Body Mass Index [18.5-24.99] 35.2 *>HHI* (09/05/20 2:19 PM) Blood Pressure [90-138/55-84 mm Hg] 124/ 62mm Hg (09/05/20 2:19 PM) Temperature [96.8-100.4 DegF] 97.5 DegF (09/05/20 2:19 PM) Mode of Delivery (Oxygen) Room air (09/05/20 2:19 PM) Blood pressure sites Arm, left (09/05/20 2:19 PM) Temperature Route Temporal (09/05/20 2:19 PM) Weight Obtained Via Standing scale (09/05/20 2:19 PM) Social History Social History Type Response Smoking Status Former smoker; Other : quit 2012; entered on: 01/12/15 Sex
--- OUTSIDE RECORDS SUMMARY | 2023-12-29 21:01 | XMS_ITS | Continuity of Care Document ---
Author Organization [facility] Address [address] [place] [address]- Care Team Providers Care Physical Chemistry Teacher Name Role Phone Katina Zuniga MD Primary Care Physician Encounter [facility] [place] ACCT R [id number] Date(s): 12/15/20 - 12/22/20 [facility] [address] [place] [address]- Encounter Diagnosis Hypertension(Discharge Diagnosis) - 12/15/20 Diabetes(Discharge Diagnosis) - 12/15/20 Wheezing(Discharge Diagnosis) - 12/15/20 Depression(Discharge Diagnosis) - 12/15/20 Attending Physician: Katina Zuniga MD Allergies, Adverse [...] 8 11/19/12 Given 1Result Comment: Done at [facility] 2Result Comment: Done at [facility] 3Location History: [facility] 4Result Comment: [07/22/2017] [facility] [phone] 5[facility] 6Result Comment: [06/12/2015] high [...] 12/15/20 15:42:00 EDT, Route to Pharmacy Electronically, [facility]/pharmacy #[id number], 162.56, cm, 12/15/20 15:05:00 EDT,Height, 91, [...] tablet, 2 Refills, Maintenance, 09/05/20 14:33:00 EST, [facility]/pharmacy #[id number], 160, cm, 09/05/20 14:19:00 EST, Height, 94.3, kg, 03/02/19 15:45:00 EDT, Dry Weight Start Date: 09/05/20 Status: Ordered metFORMIN 1000 mg oral tablet 1 tablet = 1,000 mg, By Mouth, Daily, # 90 tablet, 3 Refills, Maintenance, 12/15/20 15:41:00 EDT, Tablet, [facility]/pharmacy #[id number], 162.56, cm, 12/15/20 15:05:00 EDT, Height, 91, kg, 12/13/20 6:45:00 EDT, Dry Weight Start Date: 12/15/20 Status: Ordered nortriptyline 50 mg oral capsule 1, capsule, By Mouth, Daily at bedtime, # 90 capsule, Refills 1, Tot. Refills 0, Maintenance, 09/04/20 15:55:00 EST, Route to Pharmacy Electronically, [facility] STORE [id number], 160, cm, 06/27/20 14:03:00 EST,Height, 94.3, kg, 03/02/19 15:45:00 EDT, Dry Weight Start Date: 09/04/20 Status: Ordered omeprazole 20 mg oral enteric coated capsule 1 capsule = 20 mg, By Mouth, Daily, # 90 capsule, 3 Refills, Maintenance, 09/05/20 14:34:00 EST, ECCapsule, [facility]/pharmacy #[id number], 160, cm, 09/05/20 14:19:00 EST, Height, 94.3, kg, 03/02/19 15:45:00 EDT, Dry Weight Start Date: 09/05/20 Status: Ordered simvastatin 20 mg oral tablet 20 mg, 1, tablet, By Mouth, Daily at bedtime, # 90 tablet, Refills 1, Tot. Refills 1, Maintenance, 12/11/20 15:09:00 EDT, Route to Pharmacy Electronically, [facility]/pharmacy #[id number], 162.56, cm, 12/05/20 16:18:00 EDT, Height, [...] Right breast cancer, T1b N0, ER positive, [place] positive, HER-2/mickey negative, diagnosed in 2008. 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) 09/25/08 Active Pure hypercholesterolemia(Confirmed) Active Urinary urgency(Confirmed) Active Wheezing(Confirmed) Active Diagnosis Diagnosis Type Effective Dates Health Status Cl inical Service Informant Hypertension Discharge Diagnosis 12/15/20 Diabetes Discharge Diagnosis 12/15/20 Wheezing Discharge Diagnosis 12/15/20 Depression Discharge Diagnosis 12/15/20 Vital Signs Most recent to oldest [Reference Range]: 1 Height 162.56 cm (12/15/20 3:05 PM) Weight 89.6 kg (12/15/20 3:05 PM) Oxygen Saturation [94-100 %] 97 % (12/15/20 3:05 PM) Pulse Rate [55-90 bpm] 97 bpm *H* (12/15/20 3:05 PM) Body Mass Index [18.5-24.99] 33.91 *>HHI* (12/15/20 3:05 PM) Blood Pressure [90-138/55-84 mm Hg] 136/ 80mm Hg (12/15/20 3:05 PM) Temperature [96.8-100.4 DegF] 97.7 DegF (12/15/20 3:05 PM) Mode of Delivery (Oxygen) Room air (12/15/20 3:05 PM) Blood pressure sites Arm, left (12/15/20 3:05 PM) Temperature Route Temporal (12/15/20 3:05 PM) Weight Obtained Via Standing scale (12/15/20 3:05 PM) Social History Social History Type Response Tobacco Other: 1 pack per da y for 40 years. Sex
--- OUTSIDE RECORDS SUMMARY | 2023-12-29 21:01 | XMS_ITS | Continuity of Care Document ---
Author Organization [facility] Address [address] [place] [address]- Care Team Providers Care Supervisor Plating And Point Assembly Name Role Phone Katina Zuniga MD Primary Care Physician Encounter [facility] ACCT R [id number] Date(s): 05/09/22 - 05/16/22 [facility] [address] [place], [place] [address] Attending Physician: India Arias DO Allergies, Adverse Reactions, Alerts No Known Allergies [...] 8 11/19/12 Given 1Result Comment: Done at [facility] 2Result Comment: Done at [facility] 3Location History: [facility] 4Result Comment: [07/22/2017] [facility] [phone] 5[facility] 6Result Comment: [06/12/2015] high [...] 01/03/22 11:36:00 EDT, Route to Pharmacy Electronically, [facility]/pharmacy #[id number], Partial fill upon patient requestif [...] 0 Refills, Maintenance, 02/04/22 8:30:00 EDT, Ointment, [facility]/pharmacy #[id number], Partial fill upon patient request [...] SWELLING, # 90 tablet, 1 Refills, [facility] STORE 27054,168, cm, 04/02/22 15:54:00 EDT, Height, 74.1, kg, 03/30/22 4:57:00 EDT, Dry Weight Start Date: 04/05/22 Status: Ordered triamcinolone 0.1% topical cream 1 application, Topically, 2 times a day, PRN Rash, for 14 days, apply a thin film, # 60 Gm, 0 Refills, Acute 05/23/22 13:33:00 EDT, 05/09/22 13:33:00 EDT, Cream, [facility]/pharmacy #[id number], Partial fill uponpatient request if the prescription is for a schedu... Start Date: 05/09/22 Stop Date: 05/23/22 Status: Ordered Vitamin D3 1000 intl units oral capsule 1 capsule = 1,000 International_Units, By Mouth, Daily, # 90 capsule, 2 Refills, Maintenance, 01/03/22 11:38:00 EDT, Capsule, [facility]/pharmacy #[id number], 162.56, cm, 01/03/22 11:11:00 EDT, [...] Maintenance,04/15/22 12:05:00 EDT, Route to Pharmacy Electronically, [facility]/pharmacy #[id number], let us know if not covered by [...] urgency(Confirmed) Active Venous insufficiency(Confirmed) Active Wheezing(Confirmed) Active Vital Signs Most recent to oldest [Reference Range]: 1 Height 168 cm (05/09/22 10:58 AM) Weight 78.6 kg (05/09/22 10:58 AM) Oxygen Saturation [94-100 %] 97 % (05/09/22 10:58 AM) Pulse Rate [55-90 bpm] 91 bpm *H* (05/09/22 10:58 AM) Body Mass Index [18.5-24.99] 27.85 *H* (05/09/22 10:58 AM) Blood Pressure [90-138/55-84 mm Hg] 140/ 77mm Hg *H* (05/09/22 10:58 AM) Mode of Delivery (Oxygen) Room air (05/09/22 10:58 AM) Blood pressure sites Arm, right (05/09/22 10:58 AM) Temperature Route Temporal (05/09/22 10:58 AM) Dry Weight 78.6 kg (05/09/22 10:58 AM) Weight Obtained Via Standing scale (05/09/22 10:58 AM) Social History Social History Type Response Smoking Status Former smoker, quit more than 30 days ago entered on: 11/16/21 Sex Care Team Personnel Name: Katina Zuniga MD Address: [address] [place] [address]
--- OUTSIDE RECORDS SUMMARY | 2023-12-29 21:01 | XMS_ITS | Continuity of Care Document ---
Author Organization [facility] Address [address] [place] [address]- Care Team Providers Care Communications Equipment Supervisor Name Role Phone Katina Zuniga MD Primary Care Physician Encounter [facility] Date(s): 10/19/21 - 10/26/21 [facility] [address] [place] [address]- Encounter Diagnosis Tremors of nervous system(Discharge Diagnosis) - 10/19/21 Attending Physician: Katina Zuniga MD Allergies, Adverse [...] 8 11/19/12 Given 1Result Comment: Done at [facility] 2Result Comment: Done at [facility] 3Location History: [facility] 4Result Comment: [07/22/2017] [facility] [id number] 5[facility] 6Result Comment: [06/12/2015] high dose 7Admin Note: VIS GIVEN 8Admin Note: vis given Medications aspirin 325 mg oral delayed release tablet 325 mg, 1, tablet, By Mouth, Daily, # 30 tablet, Refills 0, Tot. Refills 0, Maintenance, 04/27/21 16:38:00 EDT, Route to Pharmacy Electronically, [facility]/pharmacy #[id number], Partial fill upon patient requestif the prescription is for a schedule II opioid kirit... Start Date: 04/27/21 Status: Ordered aspirin 325 mg oral delayed release tablet 325 mg, 1, tablet, By Mouth, Daily, # 90 tablet, Refills 3, Tot. Refills 3, Maintenance, 10/10/21 13:09:00 EST, Route to Pharmacy Electronically, [facility]/pharmacy #[id number], Partial fill upon patient requestif the prescription is for a schedule II opioid kirit... Start Date: 10/10/21 Status: Ordered atenolol 25 mg oral tablet 25 mg, 1, tablet, By Mouth, Daily, # 90 tablet, Refills 3, Tot. Refills 3, Maintenance, 12/10/21 15:42:00 EDT, Route to Pharmacy Electronically, [facility]/pharmacy #[id number], 162.56, cm, 10/10/21 12:54:00 EST,Height, [...] 03/14/21 14:36:00 EDT, Route to Pharmacy Electronically, [facility]/pharmacy #[id number], 162.56, cm, 03/14/21 14:12:00 EDT, Height, 89.8, kg, 03/14/21 14:12... Start Date: 03/14/21 Stop Date: 05/09/21 Status: Ordered levocetirizine 5 mg oral tablet 1 tablet, By Mouth, Daily in PM, # 30 tablet, 10 Refills, [facility] STORE [id number], 30, TAKE 1 TABLET BY MOUTH EVERY EVENING, 162.56, cm, 10/10/21 13:15:00 EST, Height, 90.6, kg, 04/27/21 9:57:00 EDT, Dry Weight Start Date: 10/16/21 Status: Ordered lithium 300 mg oral tablet 3 tablet = 900 mg, By Mouth, Daily at bedtime, # 270 tablet, 1 Refills, Maintenance, 09/04/21 17:14:00 EST, [facility]/pharmacy #[id number], 162.56, cm, 06/29/21 14:06:00 EDT, Height, 90.6, kg, 04/27/21 9:57:00 EDT, Dry Weight Start Date: 09/04/21 Status: Ordered metFORMIN 1000 mg oral tablet 1 tablet = 1,000 mg, By Mouth, Daily, # 90 tablet, 1 Refills, Maintenance, 09/21/21 9:52:00 EST, Tablet, [facility]/pharmacy #[id number], 162.56, cm, 09/19/21 13:07:00 EST, Height, 90.6, kg, 04/27/21 9:57:00 EDT,Dry Weight Start Date: 09/21/21 Status: Ordered nortriptyline 50 mg oral capsule 1, capsule, By Mouth, Daily at bedtime, # 90 capsule, Refills 1, Tot. Refills 1, Maintenance, 09/04/21 13:33:00 EST, Route to Pharmacy Electronically, [facility]/pharmacy #[id number], 162.56, cm, 06/29/21 14:06:00 EDT, Height, 90.6, kg, 04/27/21 9:57:00 EDT, Dry W... Start Date: 09/04/21 Status: Ordered omeprazole 20 mg oral enteric coated capsule 1 capsule = 20 mg, By Mouth, Daily, # 90 capsule, 3 Refills, Maintenance, 10/10/21 13:07:00 EST, ECCapsule, [facility]/pharmacy #[id number], 162.56, cm, 10/10/21 12:54:00 EST, Height, 90.6, kg, 04/27/21 9:57:00 EDT, Dry Weight Start Date: 10/10/21 Status: Ordered simvastatin 20 mg oral tablet 20 mg, 1, tablet, By Mouth, Daily at bedtime, # 90 tablet, Refills 3, Tot. Refills 3, Maintenance, 03/14/21 14:34:00 EDT, Route to Pharmacy Electronically, [facility]/pharmacy #[id number], 162.56, cm, 03/14/21 14:12:00 EDT, [...] Right breast cancer, T1b N0, ER positive, CT positive, HER-2/mickey negative, diagnosed in 2008. Left [...] Dates Health Status Cl inical Service Informant Tremors of nervous system Discharge Diagnosis 10/19/21 Social History Social History Type Response Tobacco Other: 1 pack per da y for 40 years. Sex
--- OUTSIDE RECORDS SUMMARY | 2023-12-29 21:01 | XMS_ITS | Continuity of Care Document ---
Author Organization [facility] Address [address] [place] [address]- Care Team Providers Care Knee Bolter Name Role Phone Katina Zuniga MD Primary Care Physician Encounter [facility] Date(s): 06/06/22 - 07/06/22 [facility] [address] [place], [place] [address] Allergies, Adverse Reactions, Alerts No Known Allergies Immunizations Given and Recorded Vaccine Date Status Refusal Reason influenza virus vaccine, inactivated 1 06/07/22 Gi xi influenza virus vaccine, inactivated 2 06/08/18 Re corded influenza virus vaccine, inactivated 3 07/22/17 Gi xi influenza virus vaccine, inactivated 09/20/16 Ryan rded influenza virus vaccine, inactivated 07/06/14 Give n SARS-CoV-2 mRNA ([id number]) vax 02/24/22 Recorded SARS-CoV-2 (COVID-19) mRNA BNT-162b2 [...] tetanus/diphtheria/pertussis, acel(Tdap) 9 11/19/12 Given 1Result Comment: [facility] [id number] [phone] 2Location History: [address] 3Result Comment: [07/22/2017] [facility] [id number] 4Result Comment: Done at [facility] 5Result Comment: Done at [facility] 7Result Comment: [06/12/2015] [...] Refills, Maintenance, 10/10/21 13:07:00 EST, ECCapsule, [facility]/pharmacy #[id number], 162.56, cm, 10/10/21 12:54:00 EST, Height, 90.6, kg, 04/27/21 9:57:00 EDT, Dry Weight Start Date: 10/10/21 Status: Ordered simvastatin 20 mg oral tablet 20 mg, 1, tablet, By Mouth, Daily at bedtime, # 90 tablet, Refills 3, Tot. Refills 3, Maintenance, 01/03/22 11:37:00 EDT, [id number] 162.56, cm, 01/03/22 11:11:00 EDT, Height, 78.4, kg, 11/16/21 22:27:00 EDT,... Start Date: 01/03/22 Stop Date: 12/29/22 Status: Ordered torsemide 20 mg oral tablet 1 tablet, By Mouth, Daily, PRN NEEDED FOR LEG SWELLING, # 90 tablet, 1 Refills, [facility] STORE 07763,168, cm, 04/02/22 15:54:00 EDT, Height, 74.1, kg, [...] Team Personnel Name: Katina Zuniga MD Position: [facility] Primary Care Physician Member Role: PCP Address: Address: [address] [place] [address]- Name: Mily Stein RN Position: [facility] RN Member Role: Primary Care Nurse Name: Geno Cifuentes RN Position: [facility] RN Member Role: Primary Care Nurse Name: Coleen Reese RN Position: [facility] RN Member Role: Primary Care Nurse Name: Rosa Agustin NP Position: [facility] Associate Professional Member Role: Primary Care Nurse Address: Address: [address] [place] [address]- Name: Steve Saravia RN Position: [facility] RN Member Role: Primary Care Nurse Name: Edna Tom RN Position: [facility] RN Member Role: Primary Care Nurse Name: Ella Garcia RN Position: [facility] RN Member Role: Primary Care Nurse Name: Cy Benjamin DO Position: [facility] Renal MD Member Role: Lifetime Consulting Physician Address: Address: [address] [place], [place] [address] [place] [address]- Name: Migel Lopez RN Position: [facility] RN Member Role: Primary Care Nurse Name: Stacia Hernandez RN Position: [facility] RN Member Role: Primary Care Nurse Name: Lauren Lund RN Position: [facility] ED RN W/OE and Tasks Member Role: Primary Care Nurse Name: Marisol Grady RN Position: [facility] RN Member Role: Primary Care Nurse Name: Corinna Orozco RN Position: [facility] RN Member Role: Primary Care Nurse Name: Flory Fernandez RN Position: S RN Member Role: Primary Care Nurse Name: Paula Foss RN Position: S RN Member Role: Primary Care Nurse Address: Address: [address] [place] [id number] Name: Arnol Travis RN Position: S RN Member Role: Primary Care Nurse Name: Hina Puckett Position: S RN Member Role: Primary Care Nurse Name: Nidia De Oliveira Position: S RN Member Role: Primary Care Nurse Care Team Related Persons Name: RAFAELA ANDREWS Address: home [address] [place] [address] Name: VALENTINA ARNOLD Address: home [address] [facility] [address] [place] [address]
--- OUTSIDE RECORDS SUMMARY | 2023-12-29 21:01 | XMS_ITS | Continuity of Care Document ---
Author Organization [facility] Address [address] [place] [address]- Care Team Providers Care Raiser Helper Name Role Phone Katina Zuniga MD Primary Care Physician [phone] Encounter [facility] Date(s): 01/26/20 - 02/25/20 [facility] [address] [place] [address]- [facility] Attending Physician: Merlyn Murillo Admitting [...] [facility] [address] 2Result Comment: [07/22/2017] [facility] [id number] 3[facility] 4Result Comment: [06/12/2015] high [...] 10/27/19 14:06:00 EST, Route to Pharmacy Electronically, [facility]/pharmacy #[id number], 160, cm, 10/27/19 13:44:00 EST, Height, 94.3, kg, 03/02/19 15:45:00 EDT, Dry Weight Start Date: 10/27/19 Stop Date: 10/21/20 Status: Ordered Calcium Carbonate By Mouth, 1000mg, 0 Refills, Maintenance, 01/12/18 13:45:02 EDT Start Date: 01/12/18 Status: Ordered Fosamax 70 mg oral tablet 1 tablet = 70 mg, By Mouth, Every week, # 4 tablet, 11 Refills, Maintenance, 09/20/19 16:46:00 EST,Tablet, [facility]/pharmacy #[id number], 160, cm, 03/26/19 13:55:00 EDT, Height, [...] 01/26/20 12:49:00 EDT, Route to Pharmacy Electronically, [facility]/pharmacy #[id number], 160, cm, 01/21/20 10:58:00 EDT, Height, [...] 3 Refills, Maintenance, 10/27/19 13:59:00 EST, Tablet, [facility]/pharmacy #[id number], 160, cm, 10/27/19 13:44:00 EST, Height, 94.3, kg, 03/02/19 15:45:00 EDT, Dry Weight Start Date: 10/27/19 Status: Ordered mupirocin 2% topical ointment 1 application, Topically, 3 times a day, apply to leg wound, # 22 Gm, 3 Refills, Maintenance, 01/11/20 15:40:00 EDT, Ointment, [facility]/pharmacy #[id number], 1 application Topically 3 times a day,Instr:apply toleg wound, 160, cm, 10/27/19 13:44:00 EST, Height,... Start Date: 01/11/20 Status: Ordered nortriptyline 50 mg oral capsule 50 mg, 1, capsule, By Mouth, Daily at bedtime, # 90 capsule, Refills 1, Tot. Refills 1, Maintenance, 11/30/19 14:00:00 EDT, Route to Pharmacy Electronically, [facility]/pharmacy #[id number], 160, cm, 10/27/19 13:44:00 EST, Height, [...] 06/30/19 14:01:33 EST, Route to Pharmacy Electronically, [id number], [facility]/pharmacy #[id number] Start Date: 06/30/19 Stop Date: 06/24/20 [...] Right breast cancer, T1b N0, ER positive, [place] positive, HER-2/mickey negative, diagnosed in 2008. Left [...]
--- OUTSIDE RECORDS SUMMARY | 2023-12-29 21:01 | XMS_ITS | Continuity of Care Document ---
Author Organization [facility] Address [address] [place] [address]- Care Team Providers Care Public Works Supervisor Name Role Phone Katina Zuniga MD Primary Care Physician Encounter [facility] Date(s): 04/03/22 - 05/03/22 [facility] [address] [place], [place] [address] Allergies, Adverse Reactions, Alerts No Known [...] 8 11/19/12 Given 1Result Comment: Done at [facility] 2Result Comment: Done at [facility] 3Location History: [address] 4Result Comment: [07/22/2017] [facility] [id number] 5[facility] 6Result Comment: [06/12/2015] high [...] 01/03/22 11:36:00 EDT, Route to Pharmacy Electronically, [facility]/pharmacy #[id number], Partial fill upon patient requestif the prescription is for a schedule II opioid kirit... Start Date: 01/03/22 Status: Ordered divalproex sodium 500 mg oral enteric coated tablet = 500 mg, By Mouth, 2 times a day, # 60 tablet, 2 Refills, Maintenance, 04/12/22 15:12:00 EDT, Tablet, [facility]/pharmacy #[id number], Partial fill upon [...] Refills, Maintenance, 02/04/22 8:30:00 EDT, Ointment, [id number], Partial fill upon patient request if the [...] 3 Refills, Maintenance, 10/10/21 13:07:00 EST, [id number] 162.[facility], cm, 10/10/21 12:54:00 EST, Height, 90.6, kg, 04/27/21 9:57:00 EDT, Dry Weight Start Date: 10/10/21 Status: Ordered simvastatin 20 mg oral tablet 20 mg, 1, tablet, By Mouth, Daily at bedtime, # 90 tablet, Refills 3, Tot. Refills 3, Maintenance, 01/03/22 11:37:00 EDT, [id number] 162.56, cm, 01/03/22 11:11:00 EDT, Height, 78.4, kg, 11/16/21 22:27:00 EDT,... Start Date: 01/03/22 Stop Date: 12/29/22 Status: Ordered torsemide 20 mg oral tablet 1 tablet, By Mouth, Daily, PRN NEEDED FOR LEG SWELLING, # 90 tablet, 1 Refills, [facility] STORE 11180,168, cm, 04/02/22 15:54:00 EDT, Height, 74.1, kg, 03/30/22 4:57:00 EDT, Dry Weight Start Date: 04/05/22 Status: Ordered Vitamin D3 1000 intl units oral capsule 1 capsule = 1,000 International_Units, By Mouth, Daily, # 90 capsule, 2 Refills, Maintenance, 01/03/22 11:38:00 EDT, [id number] 162.56, cm, 01/03/22 [...] Maintenance,04/15/22 12:05:00 EDT, Route to Pharmacy Electronically, [facility]/pharmacy #[id number], let us know if not covered by [...] Team Personnel Name: Katina Zuniga MD Address: [address] [place] [address]
--- OUTSIDE RECORDS SUMMARY | 2023-12-29 21:02 | XMS_ITS | Continuity of Care Document ---
Author Organization [facility] Address [address] [place] [address]- Care Team Providers Care Parts Facilitator Name Role Phone Nadia GUNDERSON, Katina Rosado Primary Care Physician [phone] Encounter [facility] Date(s): 08/10/21 - 09/09/21 [facility] [address] [place], [place] [address] Allergies, Adverse Reactions, Alerts [...] 11/19/12 Given 1Result Comment: Done at [facility] 2Result Comment: Done at [facility] 3Location History: [facility] 4Result Comment: [07/22/2017] [facility] [id number] 5[facility] 6Result Comment: [06/12/2015] high [...] 12/15/20 15:42:00 EDT, Route to Pharmacy Electronically, [facility]/pharmacy #[id number], 162.56, cm, 12/15/20 15:05:00 EDT,Height, [...] 3 Refills, Maintenance, 12/15/20 15:41:00 EDT, Tablet, [facility]/pharmacy #[id number], 162.56, cm, 12/15/20 15:05:00 [...] 3 Refills, Maintenance, 09/05/20 14:34:00 EST, ECCapsule, [facility]/pharmacy #[id number], 160, cm, 09/05/20 14:19:00 [...] Right breast cancer, T1b N0, ER positive, [place] positive, HER-2/mickey negative, diagnosed in 2008. Left [...]
--- OUTSIDE RECORDS SUMMARY | 2023-12-29 21:02 | XMS_ITS | Continuity of Care Document ---
Author Organization [facility] Address [address] [place] [address]- Care Team Providers Care Steam Hand Name Role Phone Katina Zuniga MD Primary Care Physician Encounter [facility] Date(s): 01/22/22 - 02/21/22 [facility] [address] [place], [place] [address] Allergies, Adverse Reactions, Alerts No Known [...] Given 1Result Comment: Done at [facility] 2Result Comment: Done at [facility] 3Location History: [facility] 4Result Comment: [07/22/2017] [facility] [id number] 5[facility] 6Result Comment: [06/12/2015] high dose 7Admin Note: VIS GIVEN 8Admin Note: vis given Medications amLODIPine 10 mg oral tablet 10 mg, 1, tablet, By Mouth, Daily, # 90 tablet, Refills 2, Tot. Refills 2, Maintenance, 01/03/22 11:39:00 EDT, Route to Pharmacy Electronically, [facility]/pharmacy #[id number], Partial fill upon patient request if the prescription is for a schedule II opioid drug... Start Date: 01/03/22 Status: Ordered aspirin 325 mg oral delayed release tablet 325 mg, 1, tablet, By Mouth, Daily, # 90 tablet, Refills 2, Tot. Refills 2, Maintenance, 01/03/22 11:36:00 EDT, [id number] Partial fill upon patient requestif [...] 01/08/22 15:28:00 EDT, Route to Pharmacy Electronically, [facility]/pharmacy #[id number],dose change, 162.56, cm, 01/03/22 11:11:00 EDT, Hei... Start Date: 01/08/22 Status: Ordered lanolin topical - ointment 1 application, Topically, 3 times a day, PRN as needed for dry skin, # 113 Gm, 0 Refills, Maintenance, 02/04/22 8:30:00 EDT, Ointment, [facility]/pharmacy #[id number], Partial fill upon patient request if the prescription is for a schedule II opioid drug., 1 appli... Start Date: 02/04/22 Status: Ordered metFORMIN 500 mg oral tablet, extended release 1 tablet = 500 mg, By Mouth, Daily, # 90 tablet, 1 Refills, Maintenance, 01/03/22 11:36:00 EDT, ER Tablet, [facility]/pharmacy #[id number], Partial fill upon patient request if the prescription is for a schedule II opioid drug., 162.56, cm, 01/03/22 11:11:00 EDT,... Start Date: 01/03/22 Status: Ordered nortriptyline 25 mg oral capsule 25 mg, 1, capsule, By Mouth, Daily at bedtime, # 90 capsule, Refills 2, Tot. Refills 2, Maintenance, 01/03/22 11:39:00 EDT, Route to Pharmacy Electronically, [facility]/pharmacy #[id number], Partial fill upon patient request if the prescription is for a schedule I... Start Date: 01/03/22 Status: Ordered omeprazole 20 mg oral enteric coated capsule 1 capsule = 20 mg, By Mouth, Daily, # 90 capsule, 3 Refills, Maintenance, 10/10/21 13:07:00 EST, ECCapsule, [facility]/pharmacy #[id number], 162.56, cm, 10/10/21 12:54:00 EST, Height, 90.6, kg, 04/27/21 9:57:00 EDT, Dry Weight Start Date: 10/10/21 Status: Ordered simvastatin 20 mg oral tablet 20 mg, 1, tablet, By Mouth, Daily at bedtime, # 90 tablet, Refills 3, Tot. Refills 3, Maintenance, 01/03/22 11:37:00 EDT, Route to Pharmacy Electronically, [facility]/pharmacy #[id number], 162.56, cm, 01/03/22 11:11:00 [...]
--- OUTSIDE RECORDS SUMMARY | 2023-12-29 21:02 | XMS_ITS | Continuity of Care Document ---
Author Organization [facility] Address [address] [place] [address]- Care Team Providers Care Beekeeper Name Role Phone Katina Zuniga MD Primary Care Physician [place] [facility] [place]s): 12/20/21 - 01/19/22 [facility] [address] [place], [place] [address] Allergies, Adverse Reactions, Alerts No [...] 1Result Comment: Done at [facility] 2Result Comment: Done at [facility] 3Location History: [facility] 4Result Comment: [07/22/2017] [facility] [id number] 5[facility] 6Result Comment: [06/12/2015] high dose 7Admin Note: VIS GIVEN 8Admin Note: vis given Medications amLODIPine 10 mg oral tablet 10 mg, 1, tablet, By Mouth, Daily, # 90 tablet, Refills 2, Tot. Refills 2, Maintenance, 01/03/22 11:39:00 EDT, Route to Pharmacy Electronically, [id number], Partial fill upon patient request if the prescription is for a schedule II opioid drug... Start Date: 01/03/22 Status: Ordered aspirin 325 mg oral delayed release tablet 325 mg, 1, tablet, By Mouth, Daily, # 90 tablet, Refills 2, Tot. Refills 2, Maintenance, 01/03/22 11:36:00 EDT, Route to Pharmacy Electronically, [facility]/pharmacy #[id number], Partial fill upon patient requestif the prescription is for a schedule II opioid kirit... Start Date: 01/03/22 Status: Ordered Diflucan 150 mg oral tablet 1 tablet = 150 mg, By Mouth, Every 48 hours, # 3 tablet, 0 Refills, Acute 02/02/22 11:35:00 EDT, 01/03/22 11:35:00 EDT, Tablet, [facility]/pharmacy #[id number], Partial fill upon patient request [...] 0, Tot. Refills 0, Maintenance, leg swelling, 01/11/22 12:09:00 EDT, Route to Pharmacy Electronically, [facility]/pharm[facility] #[id number], Partial fill upon patient request if the prescription is for a sche... Start Date: 01/11/22 Stop Date: 01/25/22 Status: Ordered lamotrigine 25 mg oral tablet 50 mg, 2, tablet, By Mouth, Daily, TAKE 2 TABLET BY MOUTH EVERY DAY, # 180 tablet, Refills 2, Tot. Refills 2, Maintenance, 01/08/22 15:28:00 EDT, Route to Pharmacy Electronically, [facility]/pharmacy #[id number],dose change, 162.56, cm, 01/03/22 11:11:00 EDT, Hei... Start Date: 01/08/22 Status: Ordered metFORMIN 500 mg oral tablet, extended release 1 tablet = 500 mg, By Mouth, Daily, # 90 tablet, 1 Refills, Maintenance, 01/03/22 11:36:00 EDT, ER Tablet, [facility]/pharmacy #[id number], Partial fill upon patient request if the prescription is for a schedule II opioid drug., 162.56, cm, 01/03/22 11:11:00 EDT,... Start Date: 01/03/22 Status: Ordered nortriptyline 25 mg oral capsule 25 mg, 1, capsule, By Mouth, Daily at bedtime, # 90 capsule, Refills 2, Tot. Refills 2, Maintenance, 01/03/22 11:39:00 EDT, Route to Pharmacy Electronically, [facility]/pharm[facility] #[id number], Partial fill upon patient request if the prescription is for a schedule I... Start Date: 01/03/22 Status: Ordered omeprazole 20 mg oral enteric coated capsule 1 capsule = 20 mg, By Mouth, Daily, # 90 capsule, 3 Refills, Maintenance, 10/10/21 13:07:00 EST, ECCapsule, [facility]/pharmacy #[id number], 162.56, cm, 10/10/21 12:54:00 EST, Height, 90.6, kg, 04/27/21 9:57:00 EDT, Dry Weight Start Date: 10/10/21 Status: Ordered simvastatin 20 mg oral tablet 20 mg, 1, tablet, By Mouth, Daily at bedtime, # 90 tablet, Refills 3, Tot. Refills 3, Maintenance, 01/03/22 11:37:00 EDT, Route to Pharmacy Electronically, [facility]/pharmacy #[id number], 162.56, cm, 01/03/22 11:11:00 EDT, [...] Right breast cancer, T1b N0, ER positive, [place] positive, HER-2/mickey negative, diagnosed in 2008. Left [...]
--- OUTSIDE RECORDS SUMMARY | 2023-12-29 21:02 | XMS_ITS | Continuity of Care Document ---
Author Organization [facility] Address [address] [place] [address]- Care Team Providers Care Slitting Machine Operator Helper Name Role Phone Katina Zuniga MD Primary Care Physician [phone] [place] [facility] [place] Date(s): 03/26/22 - 04/25/22 [facility] [address] [place], [place] [address] Allergies, Adverse Reactions, Alerts [...] Given 1Result Comment: Done at [facility] 2Result Comment: Done at [facility] 3Location History: [facility] 4Result Comment: [07/22/2017] [facility] [id number] 5[facility] 6Result Comment: [06/12/2015] high [...] 01/03/22 11:36:00 EDT, Route to Pharmacy Electronically, [facility]/pharmacy #[id number], Partial fill upon patient requestif the prescription is for a schedule II opioid kirit... Start Date: 01/03/22 Status: Ordered divalproex sodium 500 mg oral enteric coated tablet = 500 mg, By Mouth, 2 times a day, # 60 tablet, 2 Refills, Maintenance, 04/12/22 15:12:00 EDT, Tablet, [facility]/pharmacy #[id number], Partial fill upon patient [...] 0 Refills, Maintenance, 02/04/22 8:30:00 EDT, Ointment, [facility]/pharmacy #[id number], Partial fill upon patient request if [...] 3 Refills, Maintenance, 10/10/21 13:07:00 EST, [id number] 162.[facility], cm, 10/10/21 12:54:00 EST, Height, 90.6, kg, 04/27/21 9:57:00 EDT, Dry Weight Start Date: 10/10/21 Status: Ordered simvastatin 20 mg oral tablet 20 mg, 1, tablet, By Mouth, Daily at bedtime, # 90 tablet, Refills 3, Tot. Refills 3, Maintenance, 01/03/22 11:37:00 EDT, [id number] 162.56, cm, 01/03/22 11:11:00 EDT, Height, 78.4, kg, 11/16/21 22:27:00 EDT,... Start Date: 01/03/22 Stop Date: 12/29/22 Status: Ordered torsemide 20 mg oral tablet 1 tablet, By Mouth, Daily, PRN NEEDED FOR LEG SWELLING, # 90 tablet, 1 Refills, [facility] STORE [id number],168, cm, 04/02/22 15:54:00 EDT, Height, 74.1, kg, 03/30/22 4:57:00 EDT, Dry Weight Start Date: 04/05/22 Status: Ordered Vitamin D3 1000 intl units oral capsule 1 capsule = 1,000 International_Units, By Mouth, Daily, # 90 capsule, 2 Refills, Maintenance, 01/03/22 11:38:00 EDT, [id number], 162.56, cm, 01/03/22 11:11:00 EDT, [...] Maintenance,04/15/22 12:05:00 EDT, Route to Pharmacy Electronically, [facility]/pharmacy #[id number], let us know if not covered by [...] Team Personnel Name: Katina Zuniga MD Address: [address] [place] [address]
--- OUTSIDE RECORDS SUMMARY | 2023-12-29 21:02 | XMS_ITS | Continuity of Care Document ---
Author Organization [facility] Address [address] [place] [address]- Care Team Providers Care Freezer Unloader Name Role Phone Katina Zuniga MD Primary Care Physician [phone] Encounter [facility] Date(s): 10/27/19 - 11/03/19 [facility] [address] [place] [address]- [facility] Encounter Diagnosis Hypertension(Discharge Diagnosis) - 10/27/19 Depression(Discharge Diagnosis) - 10/27/19 Bipolar disorder(Discharge Diagnosis) - 10/27/19 Osteopenia with high risk of fracture(Discharge Diagnosis) - 10/27/19 Attending Physician: Katina Zuniga MD Allergies, Adverse [...] 6 11/19/12 Given 1Location History: [address] 2Result Comment: [07/22/2017] [facility] [id number] 3[facility] 4Result Comment: [06/12/2015] high [...] 10/27/19 14:06:00 EST, Route to Pharmacy Electronically, [facility]/pharmacy #[id number], 160, cm, 10/27/19 13:44:00 EST, Height, 94.3, kg, 03/02/19 15:45:00 EDT, Dry Weight Start Date: 10/27/19 Stop Date: 10/21/20 Status: Ordered Calcium Carbonate By Mouth, 1000mg, 0 Refills, Maintenance, 01/12/18 13:45:02 EDT Start Date: 01/12/18 Status: Ordered Fosamax 70 mg oral tablet 1 tablet = 70 mg, By Mouth, Every week, # 4 tablet, 11 Refills, Maintenance, 09/20/19 16:46:00 EST,Tablet, [facility]/pharmacy #[id number], 160, cm, 03/26/19 13:55:00 EDT, [...] 06/30/19 14:03:36 EST, Route to Pharmacy Electronically, [id number], [facility]/pharmacy #[id number] Start Date: 06/30/19 Stop Date: [...] 3 Refills, Maintenance, 10/27/19 13:59:00 EST, Tablet, [facility]/pharmacy #[id number], 160, cm, 10/27/19 13:44:00 EST, Height, 94.3, kg, 03/02/19 15:45:00 EDT, Dry Weight Start Date: 10/27/19 Status: Ordered nortriptyline 50 mg oral capsule 50 mg, 1, capsule, By Mouth, Daily at bedtime, # 90 capsule, Refills 3, Tot. Refills 3, Maintenance, 08/03/19 11:17:05 EST, Print Requisition Start Date: 08/03/19 Status: Ordered nystatin topical 495228 u/gm powder 1 application, Topically, 3 times a day, PRN RASH, # 30 Gm, 1 Refills, Acute 11/27/19 14:22:00 EDT,10/27/19 14:21:00 EST, Powder, [facility]/pharmacy #[id number], 1 application Topically 3 times a day,PRN:RASH, 160, cm, 10/27/19 13:44:00 EST, Height, 94.3, kg, 07... Start Date: 10/27/19 Stop Date: 11/27/19 Status: Ordered omeprazole 20 mg oral enteric coated capsule 1 capsule = 20 mg, By Mouth, Daily, # 90 capsule, 2 Refills, Maintenance, 06/09/19 16:23:30 EDT, ECCapsule Start Date: 06/09/19 Status: Ordered simvastatin 20 mg oral tablet 20 mg, 1, tablet, By Mouth, Daily at bedtime, # 90 tablet, Refills 3, Tot. Refills 3, Maintenance, 06/30/19 14:01:33 EST, Route to Pharmacy Electronically, [id number], [facility]/pharmacy #[id number] Start Date: 06/30/19 Stop Date: [...] Effective Dates Health Status Clinical Service Informant Hypertension Discharge Diagnosis 10/27/19 Depression Discharge Diagnosis 10/27/19 Bipolar disorder Discharge Diagnosis 10/27/19 Osteopenia with high risk of fracture Discharge Diagnosis 10/27/19 Vital Signs Most recent to oldest [Reference Range]: 1 Height 160 cm (10/27/19 1:44 PM) Weight 86.5 kg (10/27/19 1:44 PM) Oxygen Saturation [94-100 %] 95 % (10/27/19 1:44 PM) Pulse Rate [55-90 bpm] 71 bpm (10/27/19 1:44 PM) Body Mass Index [18.5-24.99] 33.79 *>HHI* (10/27/19 1:44 PM) Blood Pressure [90-138/55-84 mm Hg] 130/ 80mm Hg (10/27/19 1:44 PM) Temperature [96.8-100.4 DegF] 97.7 DegF (10/27/19 1:44 PM) Mode of Delivery (Oxygen) Room air (10/27/19 1:44 PM) Blood pressure sites Arm, right (10/27/19 1:44 PM) Temperature Route Oral (10/27/19 1:44 PM) Weight Obtained Via Standing scale (10/27/19 1:44 PM) Social History Social History Type Response Smoking Status Former smoker; Other : quit 2012; entered on: 01/12/15 Sex
--- OUTSIDE RECORDS SUMMARY | 2023-12-29 21:02 | XMS_ITS | Continuity of Care Document ---
Author Organization [facility] Address [address] [place] [address]- Care Team Providers Care Reimbursement Consultant Name Role Phone Katina Zuniga MD Primary Care Physician En[place] [facility] [place] Date(s): 02/01/22 - 03/03/22 [facility] [address] [place], [place] [address] Attending Physician: Merlyn Murillo Admitting Physician: AdmMerlyn flannery Referring Physician: Admtr ArNorma Allergies, Adverse Reactions, Alerts No Known Allergies [...] 8 11/19/12 Given 1Result Comment: Done at [facility] 2Result Comment: Done at [facility] 3Location History: [facility] 4Result Comment: [07/22/2017] [facility] [id number] [facility] 6Result Comment: [06/12/2015] high dose 7Admin Note: VIS GIVEN 8Admin Note: vis given Medications amLODIPine 10 mg oral tablet 10 mg, 1, tablet, By Mouth, Daily, # 90 tablet, Refills 2, Tot. Refills 2, Maintenance, 01/03/22 11:39:00 EDT, Route to Pharmacy Electronically, [facility]/pharmacy #[id number], Partial fill upon patient request if the prescription is for a schedule II opioid drug... Start Date: 01/03/22 Status: Ordered aspirin 325 mg oral delayed release tablet 325 mg, 1, tablet, By Mouth, Daily, # 90 tablet, Refills 2, Tot. Refills 2, Maintenance, 01/03/22 11:36:00 EDT, [id number] Partial fill upon patient requestif [...] 01/08/22 15:28:00 EDT, Route to Pharmacy Electronically, [facility]/pharmacy #[id number],dose change, 162.56, cm, 01/03/22 11:11:00 EDT, Hei... Start Date: 01/08/22 Status: Ordered lanolin topical - ointment 1 application, Topically, 3 times a day, PRN as needed for dry skin, # 113 Gm, 0 Refills, Maintenance, 02/04/22 8:30:00 EDT, Ointment, [facility]/pharmacy #[id number], Partial fill upon patient request if the prescription is for a schedule II opioid drug., 1 appli... Start Date: 02/04/22 Status: Ordered metFORMIN 500 mg oral tablet, extended release 1 tablet = 500 mg, By Mouth, Daily, # 90 tablet, 1 Refills, Maintenance, 01/03/22 11:36:00 EDT, ER Tablet, [facility]/pharmacy #[id number], Partial fill upon patient request if the prescription is for a schedule II opioid drug., 162.56, cm, 01/03/22 11:11:00 EDT,... Start Date: 01/03/22 Status: Ordered nortriptyline 25 mg oral capsule 25 mg, 1, capsule, By Mouth, Daily at bedtime, # 90 capsule, Refills 2, Tot. Refills 2, Maintenance, 01/03/22 11:39:00 EDT, Route to Pharmacy Electronically, [facility]/pharmacy #[id number], Partial fill upon patient request if the prescription is for a schedule I... Start Date: 01/03/22 Status: Ordered omeprazole 20 mg oral enteric coated capsule 1 capsule = 20 mg, By Mouth, Daily, # 90 capsule, 3 Refills, Maintenance, 10/10/21 13:07:00 EST, ECCapsule, [facility]/pharmacy #[id number], 162.56, cm, 10/10/21 12:54:00 EST, Height, 90.6, kg, 04/27/21 9:57:00 EDT, Dry Weight Start Date: 10/10/21 Status: Ordered simvastatin 20 mg oral tablet 20 mg, 1, tablet, By Mouth, Daily at bedtime, # 90 tablet, Refills 3, Tot. Refills 3, Maintenance, 01/03/22 11:37:00 EDT, Route to Pharmacy Electronically, [facility]/pharmacy #[id number], 162.56, cm, 01/03/22 11:11:00 EDT, Height, 78.4, kg, 11/16/21 22:27:00 EDT,... Start Date: 01/03/22 Stop Date: 12/29/22 Status: Ordered torsemide 20 mg oral tablet 1 tablet = 20 mg, By Mouth, Daily, PRN leg swelling, # 30 tablet, 2 Refills, Maintenance, 02/04/22 8:25:00 EDT, Tablet, [facility]/pharmacy #[id number], replaces furosemide, 162.56, cm, 02/04/22 8:19:00 [...]
--- OUTSIDE RECORDS SUMMARY | 2023-12-29 21:02 | XMS_ITS | Continuity of Care Document ---
Author Organization [facility] Address [address] [place] [address]- Care Team Providers Care Operations Project Manager Name Role Phone Katina Zuniga MD Primary Care Physician [phone] [place] [facility] [place] [id number] Date(s): 04/15/22 - 04/22/22 [facility] [address] [place], [place] [address] Attending Physician: Katina Zuniga MD Allergies, Adverse [...] 8 11/19/12 Given 1Result Comment: Done at [facility] 2Result Comment: Done at [facility] 3Location History: [facility] 4Result Comment: [07/22/2017] [facility] [id number] [facility] 6Result Comment: [06/12/2015] high [...] 01/03/22 11:36:00 EDT, Route to Pharmacy Electronically, [facility]/pharmacy #[id number], Partial fill upon patient requestif the prescription is for a schedule II opioid kirit... Start Date: 01/03/22 Status: Ordered divalproex sodium 500 mg oral enteric coated tablet = 500 mg, By Mouth, 2 times a day, # 60 tablet, 2 Refills, Maintenance, 04/12/22 15:12:00 EDT, Tablet, [facility]/pharmacy #[id number], Partial fill upon patient request [...] Refills, Maintenance, 02/04/22 8:30:00 EDT, [facility]intment, [id number], Partial fill upon patient request if the [...] 3 Refills, Maintenance, 10/10/21 13:07:00 EST, ECCapsule, [facility]/pharmacy #[id number], 162.56, cm, 10/10/21 12:54:00 EST, Height, 90.6, kg, 04/27/21 9:57:00 EDT, Dry Weight Start Date: 10/10/21 Status: Ordered simvastatin 20 mg oral tablet 20 mg, 1, tablet, By Mouth, Daily at bedtime, # 90 tablet, Refills 3, Tot. Refills 3, Maintenance, 01/03/22 11:37:00 EDT, [id number], 162.56, cm, 01/03/22 11:11:00 EDT, Height, 78.4, kg, 11/16/21 22:27:00 EDT,... Start Date: 01/03/22 Stop Date: 12/29/22 Status: Ordered torsemide 20 mg oral tablet 1 tablet, By Mouth, Daily, PRN NEEDED FOR LEG SWELLING, # 90 tablet, 1 Refills, [facility] STORE 45954,168, cm, 04/02/22 15:54:00 EDT, Height, 74.1, kg, 03/30/22 4:57:00 EDT, Dry Weight Start Date: 04/05/22 Status: Ordered Vitamin D3 1000 intl units oral capsule 1 capsule = 1,000 International_Units, By Mouth, Daily, # 90 capsule, 2 Refills, Maintenance, 01/03/22 11:38:00 EDT, Capsule, [facility]/pharmacy #[id number], 162.56, cm, 01/03/22 11:11:00 EDT, [...] Maintenance,04/15/22 12:05:00 EDT, Route to Pharmacy Electronically, [facility]/pharmacy #[id number], let us know if not covered by [...] Team Personnel Name: Katina Zuniga MD Address: [address] [place] [address]
--- OUTSIDE RECORDS SUMMARY | 2023-12-29 21:02 | XMS_ITS | Continuity of Care Document ---
Author Organization [facility] Address [address] [place] [address]- Care Team Providers Care Product Safety Specialist Name Role Phone Katina Zuniga MD Primary Care Physician [phone] Encounter [facility] [place] Date(s): 10/10/21 - 10/17/21 [facility] [address] [place] [place] [address] Encounter Diagnosis Bipolar disorder(Discharge Diagnosis) - 10/10/21 Diabetes(Discharge Diagnosis) - 10/10/21 Hypertension(Discharge Diagnosis) - 10/10/21 Attending Physician: Katina Zuniga MD Allergies, Adverse [...] 8 11/19/12 Given 1Result Comment: Done at [facility] 2Result Comment: Done at [facility] 3Location History: [facility] 4Result Comment: [07/22/2017] [facility] [id number] 5[facility] 6Result Comment: [06/12/2015] high dose 7Admin Note: VIS GIVEN 8Admin Note: vis given Medications aspirin 325 mg oral delayed release tablet 325 mg, 1, tablet, By Mouth, Daily, # 30 tablet, Refills 0, Tot. Refills 0, Maintenance, 04/27/21 16:38:00 EDT, Route to Pharmacy Electronically, [facility]/pharmacy #[id number], Partial fill upon patient requestif the prescription is for a schedule II opioid kirit... Start Date: 04/27/21 Status: Ordered aspirin 325 mg oral delayed release tablet 325 mg, 1, tablet, By Mouth, Daily, # 90 tablet, Refills 3, Tot. Refills 3, Maintenance, 10/10/21 13:09:00 EST, Route to Pharmacy Electronically, [facility]/pharmacy #[id number], Partial fill upon patient requestif the prescription is for a schedule II opioid kirit... Start Date: 10/10/21 Status: Ordered atenolol 25 mg oral tablet 25 mg, 1, tablet, By Mouth, Daily, # 90 tablet, Refills 3, Tot. Refills 3, Maintenance, 12/10/21 15:42:00 EDT, Route to Pharmacy Electronically, [facility]/pharmacy #[id number], 162.56, cm, 10/10/21 12:54:00 EST,Height, 90.6, [...] 14:36:00 EDT, Route to Pharmacy Electronically, [facility]/pharmacy #[id number], 162.56, cm, 03/14/21 14:12:00 EDT, Height, 89.8, kg, 03/14/21 14:12... Start Date: 03/14/21 Stop Date: 05/09/21 Status: Ordered levocetirizine 5 mg oral tablet 1 tablet, By Mouth, Daily in PM, # 30 tablet, 10 Refills, [id number], 30, TAKE 1 TABLET BY MOUTH EVERY EVENING, 162.56, cm, 10/10/21 13:15:00 EST, Height, 90.6, kg, 04/27/21 9:57:00 EDT, Dry Weight Start Date: 10/16/21 Status: Ordered lithium 300 mg oral tablet 3 tablet = 900 mg, By Mouth, Daily at bedtime, # 270 tablet, 1 Refills, Maintenance, 09/04/21 17:14:00 EST, [facility]/pharmacy #[id number], 162.56, cm, 06/29/21 14:06:00 EDT, Height, 90.6, kg, 04/27/21 9:57:00 EDT, Dry Weight Start Date: 09/04/21 Status: Ordered metFORMIN 1000 mg oral tablet 1 tablet = 1,000 mg, By Mouth, Daily, # 90 tablet, 1 Refills, Maintenance, 09/21/21 9:52:00 EST, Tablet, [facility]/pharmacy #[id number], 162.56, cm, 09/19/21 13:07:00 EST, Height, 90.6, kg, 04/27/21 9:57:00 EDT,Dry Weight Start Date: 09/21/21 Status: Ordered nortriptyline 50 mg oral capsule 1, capsule, By Mouth, Daily at bedtime, # 90 capsule, Refills 1, Tot. Refills 1, Maintenance, 09/04/21 13:33:00 EST, Route to Pharmacy Electronically, [facility]/pharmacy #[id number], 162.56, cm, 06/29/21 14:06:00 EDT, Height, [...] Clinical Service Informant Bipolar disorder Discharge Diagnosis 10/10/21 Diabetes Discharge Diagnosis 10/10/21 Hypertension Discharge Diagnosis 10/10/21 Vital Signs Most recent to oldest [Reference Range]: 1 2 Height 162.56 cm (10/10/21 1:15 PM) 162.56 cm (10/10/21 12:54 PM) Weight 88.4 kg (10/10/21 12:54 PM) Oxygen Saturation [94-100 %] 98 % (10/10/21 12:54 PM) Pulse Rate [55-90 bpm] 73 bpm (10/10/21 12:54 PM) Body Mass Index [18.5-24.99] 33.45 *>HHI* (10/10/21 12:54 PM) Blood Pressure [90-138/55-84 mm Hg] 122/ 70mm Hg (10/10/21 1:15 PM) 142/74mm Hg *H* (10/10/21 12:54 PM) Temperature [96.8-100.4 DegF] 97.8 DegF (10/10/21 12:54 PM) Mode of Delivery (Oxygen) Room air (10/10/21 12:54 PM) Blood pressure sites Arm, left (10/10/21 12:54 PM) Temperature Route Temporal (10/10/21 12:54 PM) Social History Social History Type Response Tobacco Other: 1 pack per da y for 40 years. Sex
--- OUTSIDE RECORDS SUMMARY | 2023-12-29 21:02 | XMS_ITS | Continuity of Care Document ---
Author Organization [facility] Address [address] [place] [address]- Care Team Providers Care Pharmacy Grad Intern Name Role Phone Katina Zuniga MD Primary Care Physician [phone] Encounter [facility] Date(s): 03/14/21 - 03/21/21 [facility] [address] [place] [address]- Encounter Diagnosis Diabetes(Discharge Diagnosis) - 03/14/21 Hypertension(Discharge Diagnosis) - 03/14/21 Bipolar disorder(Discharge Diagnosis) - 03/14/21 Pure hypercholesterolemia(Discharge Diagnosis) - 03/14/21 Attending Physician: Katina Zuniga MD Allergies, Adverse [...] 8 11/19/12 Given 1Result Comment: Done at [facility] 2Result Comment: Done at [facility] 3Location History: [facility] [address] 4Result Comment: [07/22/2017] [facility] [id number] 5[facility] 6Result Comment: [06/12/2015] high [...] 12/15/20 15:42:00 EDT, Route to Pharmacy Electronically, [facility]/pharmacy #[id number], 162.56, cm, 12/15/20 15:05:00 EDT,Height, 91, [...] EDT, Route to Pharmacy Electronically, [facility]/pharmacy #[id number], 162.56, cm, 03/14/21 14:12:00 EDT, Height, 89.8, kg, 03/14/21 14:12... Start Date: 03/14/21 Stop Date: 05/09/21 Status: Ordered lithium 300 mg oral tablet 3 tablet = 900 mg, By Mouth, Daily at bedtime, # 270 tablet, 2 Refills, Maintenance, 09/05/20 14:33:00 EST, [facility]/pharmacy #[id number], 160, cm, 09/05/20 14:19:00 EST, Height, 94.3, kg, 03/02/19 15:45:00 EDT, Dry Weight Start Date: 09/05/20 Status: Ordered metFORMIN 1000 mg oral tablet 1 tablet = 1,000 mg, By Mouth, Daily, # 90 tablet, 3 Refills, Maintenance, 12/15/20 15:41:00 EDT, Tablet, [facility]/pharmacy #[id number], 162.56, cm, 12/15/20 15:05:00 EDT, Height, 91, kg, 12/13/20 6:45:00 EDT, Dry Weight Start Date: 12/15/20 Status: Ordered nortriptyline 50 mg oral capsule 1, capsule, By Mouth, Daily at bedtime, # 90 capsule, Refills 3, Tot. Refills 3, Maintenance, 03/14/21 14:34:00 EDT, Route to Pharmacy Electronically, [facility]/pharmacy #[id number], 162.56, cm, 03/14/21 14:12:00 EDT, Height, 89.8, kg, 03/14/21 14:12:00 EDT, Dry... Start Date: 03/14/21 Status: Ordered omeprazole 20 mg oral enteric coated capsule 1 capsule = 20 mg, By Mouth, Daily, # 90 capsule, 3 Refills, Maintenance, 09/05/20 14:34:00 EST, ECCapsule, [facility]/pharmacy #[id number], 160, cm, 09/05/20 14:19:00 EST, Height, 94.3, kg, 03/02/19 15:45:00 EDT, Dry Weight Start Date: 09/05/20 Status: Ordered simvastatin 20 mg oral tablet 20 mg, 1, tablet, By Mouth, Daily at bedtime, # 90 tablet, Refills 3, Tot. Refills 3, Maintenance, 03/14/21 14:34:00 EDT, Route to Pharmacy Electronically, [facility]/pharmacy #[id number], 162.56, cm, 03/14/21 14:12:00 EDT, Height, [...] Status Clinical Service Informant Diabetes Discharge Diagnosis 03/14/21 Hypertension Discharge Diagnosis 03/14/21 Bipolar disorder Discharge Diagnosis 03/14/21 Pure hypercholesterolemia Discharge Diagnosis 03/14/21 Vital Signs Most recent to oldest [Reference Range]: 1 Height 162.56 cm (03/14/21 2:12 PM) Weight 89.8 kg (03/14/21 2:12 PM) Oxygen Saturation [94-100 %] 94 % (03/14/21 2:12 PM) Pulse Rate [55-90 bpm] 73 bpm (03/14/21 2:12 PM) Body Mass Index [18.5-24.99] 33.98 *>HHI* (03/14/21 2:12 PM) Blood Pressure [90-138/55-84 mm Hg] 120/ 72mm Hg (03/14/21 2:12 PM) Respiratory Rate [16-30 br/min] 16 br/mi n (03/14/21 2:12 PM) Temperature [96.8-100.4 DegF] 98.9 DegF (03/14/21 2:12 PM) Mode of Delivery (Oxygen) Room air (03/14/21 2:12 PM) Blood pressure sites Arm, left (03/14/21 2:12 PM) Temperature Route Temporal (03/14/21 2:12 PM) Dry Weight 89.8 kg (03/14/21 2:12 PM) Weight Obtained Via Standing scale (03/14/21 2:12 PM) Social History Social History Type Response Tobacco Other: 1 pack per da y for 40 years. Sex
--- OUTSIDE RECORDS SUMMARY | 2023-12-29 21:02 | XMS_ITS | Continuity of Care Document ---
Author Organization [facility] Address [address] [place] [address]- Care Team Providers Care Graphotype Operator Name Role Phone Nadia GUNDERSON, Katina Rosado Primary Care Physician [facility] Date(s): 06/05/21 - 07/05/21 [facility] [address] [place], [place] [address] Allergies, Adverse Reactions, Alerts Substance Reaction [...] 11/19/12 Given 1Result Comment: Done at [facility] 2Result Comment: Done at [facility] 3[facility] 4Result Comment: [07/22/2017] [facility] [id number] [facility] 6Result Comment: [06/12/2015] high dose 7Admin Note: VIS GIVEN 8Admin Note: vis given Medications aspirin 325 mg oral delayed release tablet 325 mg, 1, tablet, By Mouth, Daily, # 30 tablet, Refills 0, Tot. Refills 0, Maintenance, 04/27/21 16:38:00 EDT, Route to Pharmacy Electronically, [facility]/pharmacy #[id number], Partial fill upon patient requestif the [...] Route to Pharmacy Electronically, [facility]/pharmacy #[id number], 162.56, cm, 12/15/20 15:05:00 EDT,Height, 91, [...] Route to Pharmacy Electronically, [facility]/pharmacy #[id number], 162.56, cm, 03/14/21 14:12:00 EDT, Height, 89.8, kg, 03/14/21 14:12... Start Date: 03/14/21 Stop Date: 05/09/21 Status: Ordered lithium 300 mg oral tablet 3 tablet = 900 mg, By Mouth, Daily at bedtime, # 270 tablet, 2 Refills, Maintenance, 09/05/20 14:33:00 EST, [facility]/pharmacy #[id number], 160, cm, 09/05/20 14:19:00 EST, Height, 94.3, kg, 03/02/19 15:45:00 EDT, Dry Weight Start Date: 09/05/20 Status: Ordered metFORMIN 1000 mg oral tablet 1 tablet = 1,000 mg, By Mouth, Daily, # 90 tablet, 3 Refills, Maintenance, 12/15/20 15:41:00 EDT, Tablet, [id number], 162.56, cm, 12/15/20 15:05:00 EDT, Height, 91, kg, 12/13/20 6:45:00 EDT, Dry Weight Start Date: 12/15/20 Status: Ordered nortriptyline 50 mg oral capsule 1, capsule, By Mouth, Daily at bedtime, # 90 capsule, Refills 3, Tot. Refills 3, Maintenance, 03/14/21 14:34:00 EDT, Route to Pharmacy Electronically, [facility]/pharmacy #[id number], 162.56, cm, 03/14/21 14:12:00 EDT, Height, 89.8, kg, 03/14/21 14:12:00 EDT, Dry... Start Date: 03/14/21 Status: Ordered omeprazole 20 mg oral enteric coated capsule 1 capsule = 20 mg, By Mouth, Daily, # 90 capsule, 3 Refills, Maintenance, 09/05/20 14:34:00 EST, ECCapsule, [facility]/pharmacy #[id number], 160, cm, 09/05/20 14:19:00 EST, Height, 94.3, kg, 03/02/19 15:45:00 EDT, Dry Weight Start Date: 09/05/20 Status: Ordered simvastatin 20 mg oral tablet 20 mg, 1, tablet, By Mouth, Daily at bedtime, # 90 tablet, Refills 3, Tot. Refills 3, Maintenance, 03/14/21 14:34:00 EDT, Route to Pharmacy Electronically, [facility]/pharmacy #[id number], 162.56, cm, 03/14/21 14:12:00 EDT, Height, [...]
--- OUTSIDE RECORDS SUMMARY | 2023-12-29 21:02 | XMS_ITS | Continuity of Care Document ---
Author Organization [facility] Address Unknown Care Team Providers Care Crna Name Role Phone Katina Zuniga MD Primary Care Physician [phone] Encounter [facility] Date(s): 06/07/21 - 07/07/21 [facility] Allergies, Adverse Reactions, Alerts Substance Reaction Severity [...] 11/19/12 Given 1Result Comment: Done at [facility] 2Result Comment: Done at [facility] 3Location History: [facility] [address] 4Result Comment: [07/22/2017] [facility] [id number] 5[facility] 6Result Comment: [06/12/2015] high dose 7Admin Note: VIS GIVEN 8Admin Note: vis given Medications aspirin 325 mg oral delayed release tablet 325 mg, 1, tablet, By Mouth, Daily, # 30 tablet, Refills 0, Tot. Refills 0, Maintenance, 04/27/21 16:38:00 EDT, Route to Pharmacy Electronically, [facility]/pharmacy #[id number], Partial fill upon patient requestif the [...] 12/15/20 15:42:00 EDT, [id number] 162.56, cm, 12/15/20 15:05:00 EDT,Height, [...] 03/14/21 14:36:00 EDT, Route to Pharmacy Electronically, [facility]/pharmacy #[id number], 162.56, cm, 03/14/21 14:12:00 EDT, Height, 89.8, kg, 03/14/21 14:12... Start Date: 03/14/21 Stop Date: 05/09/21 Status: Ordered lithium 300 mg oral tablet 3 tablet = 900 mg, By Mouth, Daily at bedtime, # 270 tablet, 2 Refills, Maintenance, 09/05/20 14:33:00 EST, [facility]/pharmacy #[id number], 160, cm, 09/05/20 14:19:00 EST, Height, 94.3, kg, 03/02/19 15:45:00 EDT, Dry Weight Start Date: 09/05/20 Status: Ordered metFORMIN 1000 mg oral tablet 1 tablet = 1,000 mg, By Mouth, Daily, # 90 tablet, 3 Refills, Maintenance, 12/15/20 15:41:00 EDT, Tablet, [facility]/pharmacy #[id number], 162.56, cm, 12/15/20 15:05:00 EDT, Height, 91, kg, 12/13/20 6:45:00 EDT, Dry Weight Start Date: 12/15/20 Status: Ordered nortriptyline 50 mg oral capsule 1, capsule, By Mouth, Daily at bedtime, # 90 capsule, Refills 3, Tot. Refills 3, Maintenance, 03/14/21 14:34:00 EDT, Route to Pharmacy Electronically, [facility]/pharmacy #[id number], 162.56, cm, 03/14/21 14:12:00 EDT, Height, 89.8, kg, 03/14/21 14:12:00 EDT, Dry... Start Date: 03/14/21 Status: Ordered omeprazole 20 mg oral enteric coated capsule 1 capsule = 20 mg, By Mouth, Daily, # 90 capsule, 3 Refills, Maintenance, 09/05/20 14:34:00 EST, ECCapsule, [facility]/pharmacy #[id number], 160, cm, 09/05/20 14:19:00 EST, Height, 94.3, kg, 03/02/19 15:45:00 EDT, Dry Weight Start Date: 09/05/20 Status: Ordered simvastatin 20 mg oral tablet 20 mg, 1, tablet, By Mouth, Daily at bedtime, # 90 tablet, Refills 3, Tot. Refills 3, Maintenance, 03/14/21 14:34:00 EDT, Route to Pharmacy Electronically, [facility]/pharmacy #[id number], 162.56, cm, 03/14/21 14:12:00 EDT, Height, [...] Right breast cancer, T1b N0, ER positive, [place] positive, HER-2/mickey negative, diagnosed in 2008. Left [...]
--- OUTSIDE RECORDS SUMMARY | 2023-12-29 21:03 | XMS_ITS | Continuity of Care Document ---
Author Organization [facility] Address [address] [place] [address]- Care Team Providers Care Nut Sorter Operator Name Role Phone Nadia GUNDERSON, Katina Rosado Primary Care Physician [phone] Encounter [facility] Date(s): 04/26/21 - 05/26/21 [facility] [address] [place], [place] [address] Allergies, Adverse Reactions, Alerts Substance Reaction [...] Comment: Done at [facility] 3Location History: [facility] 4Result Comment: [07/22/2017] [facility] [id number] 5[facility] 6Result Comment: [06/12/2015] high dose 7Admin Note: VIS GIVEN 8Admin Note: vis given Medications aspirin 325 mg oral delayed release tablet 325 mg, 1, tablet, By Mouth, Daily, # 30 tablet, Refills 0, Tot. Refills 0, Maintenance, 04/27/21 16:38:00 EDT, Route to Pharmacy Electronically, [facility]/pharmacy #[id number], Partial fill upon patient [...] 12/15/20 15:42:00 EDT, [id number] 162.[facility], cm, 12/15/20 15:05:00 EDT,Height, 91, [...] 03/14/21 14:36:00 EDT, Route to Pharmacy Electronically, [facility]/pharmacy #[id number], 162.56, cm, 03/14/21 14:12:00 EDT, Height, 89.8, kg, 03/14/21 14:12... Start Date: 03/14/21 Stop Date: 05/09/21 Status: Ordered lithium 300 mg oral tablet 3 tablet = 900 mg, By Mouth, Daily at bedtime, # 270 tablet, 2 Refills, Maintenance, 09/05/20 14:33:00 EST, [facility]/pharmacy #[id number], 160, cm, 09/05/20 14:19:00 EST, Height, 94.3, kg, 03/02/19 15:45:00 EDT, Dry Weight Start Date: 09/05/20 Status: Ordered metFORMIN 1000 mg oral tablet 1 tablet = 1,000 mg, By Mouth, Daily, # 90 tablet, 3 Refills, Maintenance, 12/15/20 15:41:00 EDT, Tablet, [facility]/pharmacy #[id number], 162.56, cm, 12/15/20 15:05:00 [...] 3 Refills, Maintenance, 09/05/20 14:34:00 EST, ECCapsule, [facility]/pharmacy #[id number], 160, cm, 09/05/20 14:19:00 [...] Right breast cancer, T1b N0, ER positive, [place] positive, HER-2/mickey negative, diagnosed in 2008. Left [...]
--- OUTSIDE RECORDS SUMMARY | 2023-12-29 21:03 | XMS_ITS | Continuity of Care Document ---
Author Organization [facility] Address [address] [place] [address]- Care Team Providers Care Speeder Machine Operator Name Role Phone Katina Zuniga MD Primary Care Physician [place] [facility] [place] 02/01[place]22 - 02/08/22 [facility] [address] [place], [place] [address] Attending Physician: Harish Moreno DO Allergies, Adverse Reactions, Alerts No Known [...] 8 11/19/12 Given 1Result Comment: Done at [facility] 2Result Comment: Done at [facility] 3Location History: [facility] 4Result Comment: [07/22/2017] [facility] [id number] 5[facility] 6Result Comment: [06/12/2015] high dose 7Admin Note: VIS GIVEN 8Admin Note: vis given Medications amLODIPine 10 mg oral tablet 10 mg, 1, tablet, By Mouth, Daily, # 90 tablet, Refills 2, Tot. Refills 2, Maintenance, 01/03/22 11:39:00 EDT, Route to Pharmacy Electronically, [facility]/pharmacy #[id number], Partial fill upon patient request if the prescription is for a schedule II opioid drug... Start Date: 01/03/22 Status: Ordered aspirin 325 mg oral delayed release tablet 325 mg, 1, tablet, By Mouth, Daily, # 90 tablet, Refills 2, Tot. Refills 2, Maintenance, 01/03/22 11:36:00 EDT, [id number], Partial fill upon patient requestif [...] 01/08/22 15:28:00 EDT, Route to Pharmacy Electronically, [facility]/pharmacy #[id number],dose change, 162.56, cm, 01/03/22 11:11:00 EDT, Hei... Start Date: 01/08/22 Status: Ordered lanolin topical - ointment 1 application, Topically, 3 times a day, PRN as needed for dry skin, # 113 Gm, 0 Refills, Maintenance, 02/04/22 8:30:00 EDT, Ointment, [facility]/pharmacy #[id number], Partial fill upon patient request if the prescription is for a schedule II opioid drug., 1 appli... Start Date: 02/04/22 Status: Ordered metFORMIN 500 mg oral tablet, extended release 1 tablet = 500 mg, By Mouth, Daily, # 90 tablet, 1 Refills, Maintenance, 01/03/22 11:36:00 EDT, ER Tablet, [facility]/pharmacy #[id number], Partial fill upon patient request if the prescription is for a schedule II opioid drug., 162.56, cm, 01/03/22 11:11:00 EDT,... Start Date: 01/03/22 Status: Ordered nortriptyline 25 mg oral capsule 25 mg, 1, capsule, By Mouth, Daily at bedtime, # 90 capsule, Refills 2, Tot. Refills 2, Maintenance, 01/03/22 11:39:00 EDT, Route to Pharmacy Electronically, [facility]/pharmacy #[id number], Partial fill upon patient request if the prescription is for a schedule I... Start Date: 01/03/22 Status: Ordered omeprazole 20 mg oral enteric coated capsule 1 capsule = 20 mg, By Mouth, Daily, # 90 capsule, 3 Refills, Maintenance, 10/10/21 13:07:00 EST, ECCapsule, [facility]/pharmacy #[id number], 162.56, cm, 10/10/21 12:54:00 EST, Height, 90.6, kg, 04/27/21 9:57:00 EDT, Dry Weight Start Date: 10/10/21 Status: Ordered simvastatin 20 mg oral tablet 20 mg, 1, tablet, By Mouth, Daily at bedtime, # 90 tablet, Refills 3, Tot. Refills 3, Maintenance, 01/03/22 11:37:00 EDT, Route to Pharmacy Electronically, [facility]/pharmacy #[id number], 162.56, cm, 01/03/22 11:11:00 [...] Right breast cancer, T1b N0, ER positive, [place] positive, HER-2/mickey negative, diagnosed in 2008. Left [...] system(Confirmed) Active Urinary urgency(Confirmed) Active Wheezing(Confirmed) Active Vital Signs Most recent to oldest [Reference Range]: 1 Height 162.56 cm (02/01/22 1:45 PM) Oxygen Saturation [94-100 %] 95 % (02/01/22 1:45 PM) Pulse Rate [55-90 bpm] 99 bpm *H* (02/01/22 1:45 PM) Blood Pressure [90-138/55-84 mm Hg] 126/ 64mm Hg (02/01/22 1:45 PM) Respiratory Rate [16-30 br/min] 20 br/mi n (02/01/22 1:45 PM) Temperature [96.8-100.4 DegF] 97.3 DegF (02/01/22 1:45 PM) Mode of Delivery (Oxygen) Room air (02/01/22 1:45 PM) Blood pressure sites Arm, left (02/01/22 1:45 PM) Temperature Route Temporal (02/01/22 1:45 PM) Social History Social History Type Response Smoking Status Former smoker, quit more than 30 days ago entered on: 11/16/21 Sex
--- OUTSIDE RECORDS SUMMARY | 2023-12-29 21:03 | XMS_ITS | Continuity of Care Document ---
Author Organization [facility] Address [address] [place] [address]- Care Team Providers Care Collarette Separator Name Role Phone Nadia GUNDERSON, Katina Rosado Primary Care Physician [facility]counter [facility] Date(s): 11/09/20 - 12/09/20 [facility] [address] [place], [place] [address] Allergies, Adverse Reactions, Alerts Substance [...] tetanus/diphtheria/pertussis, acel(Tdap) 6 11/19/12 Given 1[facility] History: [facility] 2Result Comment: [07/22/2017] [facility] [id number] 3[facility] 4Result Comment: [06/12/2015] high [...] 10/27/19 14:06:00 EST, Route to Pharmacy Electronically, [facility]/pharmacy #[id number], 160, cm, 10/27/19 13:44:00 EST, [...] tablet, 2 Refills, Maintenance, 09/05/20 14:33:00 EST, [facility]/pharmacy #[id number], 160, cm, 09/05/20 14:19:00 EST, Height, 94.3, kg, 03/02/19 15:45:00 EDT, Dry Weight Start Date: 09/05/20 Status: Ordered metFORMIN 1000 mg oral tablet 1 tablet = 1,000 mg, By Mouth, Daily, # 90 tablet, 3 Refills, Maintenance, 10/27/19 13:59:00 EST, Tablet, [facility]/pharmacy #[id number], 160, cm, 10/27/19 13:44:00 EST, Height, 94.3, kg, 03/02/19 15:45:00 EDT, Dry Weight Start Date: 10/27/19 Status: Ordered nortriptyline 50 mg oral capsule 1, capsule, By Mouth, Daily at bedtime, # 90 capsule, Refills 1, Tot. Refills 0, Maintenance, 09/04/20 15:55:00 EST, Route to Pharmacy Electronically, [facility] STORE [id number], 160, cm, 06/27/20 14:03:00 EST,Height, 94.3, kg, 03/02/19 15:45:00 EDT, Dry Weight Start Date: 09/04/20 Status: Ordered omeprazole 20 mg oral enteric coated capsule 1 capsule = 20 mg, By Mouth, Daily, # 90 capsule, 3 Refills, Maintenance, 09/05/20 14:34:00 EST, ECCapsule, [facility]/pharmacy #[id number], 160, cm, 09/05/20 14:19:00 EST, Height, 94.3, kg, 03/02/19 15:45:00 EDT, Dry Weight Start Date: 09/05/20 Status: Ordered simvastatin 20 mg oral tablet 20 mg, 1, tablet, By Mouth, Daily at bedtime, # 90 tablet, Refills 3, Tot. Refills 3, Maintenance, 06/30/19 14:01:33 EST, Route to Pharmacy Electronically, [id number], [facility]/pharmacy #[id number] Start Date: 06/30/19 Stop Date: 06/24/20 Status: Ordered Vitamin D3 1000 intl units oral capsule 1 capsule = 1,000 International_Units, By Mouth, Daily, # 30 capsule, 0 Refills, Maintenance, 01/12/18 13:40:46 EDT, Capsule Start Date: 01/12/18 Status: Ordered Problem List Condition Effective Dates Status Health Status Inform ant Bipolar disorder(Confirmed) Active Breast cancer, Right breast cancer, T1b N0, ER positive, [place] positive, HER-2/mickey negative, diagnosed in 2008. Left [...]
--- OUTSIDE RECORDS SUMMARY | 2023-12-29 21:03 | XMS_ITS | Continuity of Care Document ---
Author Organization [facility] Address [address] [place] [address]- Care Team Providers Care Wood Machinist Name Role Phone Katina Zuniga MD Primary Care Physician [phone] Encounter [facility] Date(s): 01/26/20 - 02/02/20 [facility] [address] [place] [address] Encounter Diagnosis Depression(Discharge Diagnosis) - 01/26/20 Diabetes(Discharge Diagnosis) - 01/26/20 Hypertension(Discharge Diagnosis) - 01/26/20 Cellulitis(Discharge Diagnosis) - 01/26/20 Pure hypercholesterolemia(Discharge Diagnosis) - 01/26/20 Attending Physician: Katina Zuniga MD Allergies, Adverse [...] tetanus/diphtheria/pertussis, acel(Tdap) 6 11/19/12 Given 1Location History: [facility] 2Result Comment: [07/22/2017] [facility] [id number] 3[facility] 4Result Comment: [06/12/2015] high [...] 10/27/19 14:06:00 EST, Route to Pharmacy Electronically, [facility]/pharmacy #[id number], 160, cm, 10/27/19 13:44:00 EST, Height, 94.3, kg, 03/02/19 15:45:00 EDT, Dry Weight Start Date: 10/27/19 Stop Date: 10/21/20 Status: Ordered Calcium Carbonate By Mouth, 1000mg, 0 Refills, Maintenance, 01/12/18 13:45:02 EDT Start Date: 01/12/18 Status: Ordered Fosamax 70 mg oral tablet 1 tablet = 70 mg, By Mouth, Every week, # 4 tablet, 11 Refills, Maintenance, 09/20/19 16:46:00 EST,Tablet, [facility]/pharmacy #[id number], 160, cm, 03/26/19 13:55:00 EDT, Height, [...] 01/26/20 12:49:00 EDT, Route to Pharmacy Electronically, [facility]/pharmacy #[id number], 160, cm, 01/21/20 10:58:00 EDT, Height, [...] 3 Refills, Maintenance, 10/27/19 13:59:00 EST, Tablet, [facility]/pharmacy #[id number], 160, cm, 10/27/19 13:44:00 EST, Height, 94.3, kg, 03/02/19 15:45:00 EDT, Dry Weight Start Date: 10/27/19 Status: Ordered mupirocin 2% topical ointment 1 application, Topically, 3 times a day, apply to leg wound, # 22 Gm, 3 Refills, Maintenance, 01/11/20 15:40:00 EDT, Ointment, [facility]/pharmacy #[id number], 1 application Topically 3 times a day,Instr:apply toleg wound, 160, cm, 10/27/19 13:44:00 EST, Height,... Start Date: 01/11/20 Status: Ordered nortriptyline 50 mg oral capsule 50 mg, 1, capsule, By Mouth, Daily at bedtime, # 90 capsule, Refills 1, Tot. Refills 1, Maintenance, 11/30/19 14:00:00 EDT, Route to Pharmacy Electronically, [facility]/pharmacy #[id number], 160, cm, 10/27/19 13:44:00 EST, Height, [...] 06/30/19 14:01:33 EST, Route to Pharmacy Electronically, [id number], [facility]/pharmacy #[id number] Start Date: 06/30/19 Stop Date: 06/24/20 [...] Right breast cancer, T1b N0, ER positive, [place] positive, HER-2/mickey negative, diagnosed in 2008. 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 Deep vein thrombosis(Confirmed) Active Depression(Confirmed) Active Diabetes(Confirmed) Active Esophageal reflux (GERD)(Confirmed) Active Hypertension(Confirmed) Active Obesity(Confirmed) Active Osteopenia with high risk of fracture(Confirmed) Active pTis: Ductal carcinoma in si tu (breast)(Confirmed) 09/25/08 Active Pure hypercholesterolemia(Confirmed) Active Urinary urgency(Confirmed) Active Diagnosis Diagnosis Type Effective Dates Health Status Clinical Service Informant Depression Discharge Diagnosis 01/26/20 Diabetes Discharge Diagnosis 01/26/20 Hypertension Discharge Diagnosis 01/26/20 Cellulitis Discharge Diagnosis 01/26/20 Pure hypercholesterolemia Discharge Diagnosis 01/26/20 Vital Signs Most recent to oldest [Reference Range]: 1 Height 160 cm (01/21/20 10:58 AM) Social History Social History Type Response Smoking Status Former smoker; Other : quit 2012; entered on: 01/12/15 Sex
--- OUTSIDE RECORDS SUMMARY | 2023-12-29 21:03 | XMS_ITS | Continuity of Care Document ---
Author Organization [facility] Address [address] [place] [address]- Care Team Providers Care Facilities Administrator Name Role Phone Katina Zuniga MD Primary Care Physician Encounter [facility] R [id number] Date(s): 09/03/21 - 05/08/[address] [address]- Discharge Disposition: A-D/C Home Attending Physician: Katina [...] Given 1Result Comment: Done at [facility] 2Result Comment: Done at [facility] 3[facility] History: [facility] 4Result Comment: [07/22/2017] [facility] [id number] 5[facility] 6Result Comment: [06/12/2015] high [...] 01/03/22 11:36:00 EDT, Route to Pharmacy Electronically, [facility]/pharmacy #[id number], Partial fill upon patient requestif the prescription is for a schedule II opioid kirit... Start Date: 01/03/22 Status: Ordered divalproex sodium 500 mg oral enteric coated tablet = 500 mg, By Mouth, 2 times a day, # 60 tablet, 2 Refills, Maintenance, 04/12/22 15:12:00 EDT, Tablet, [facility]/pharmacy #[id number], Partial fill upon patient request [...] 0 Refills, Maintenance, 02/04/22 8:30:00 EDT, Ointment, [facility]/pharmacy #[id number], Partial fill upon patient request if the [...] 3 Refills, Maintenance, 10/10/21 13:07:00 EST, ECCapsule, [facility]/pharmacy #[id number], 162.56, cm, 10/10/21 12:54:00 EST, Height, 90.6, kg, 04/27/21 9:57:00 EDT, Dry Weight Start Date: 10/10/21 Status: Ordered simvastatin 20 mg oral tablet 20 mg, 1, tablet, By Mouth, Daily at bedtime, # 90 tablet, Refills 3, Tot. Refills 3, Maintenance, 01/03/22 11:37:00 EDT, Route to Pharmacy Electronically, [facility]/pharmacy #[id number], 162.56, cm, 01/03/22 11:11:00 EDT, Height, 78.4, kg, 11/16/21 22:27:00 EDT,... Start Date: 01/03/22 Stop Date: 12/29/22 Status: Ordered torsemide 20 mg oral tablet 1 tablet, By Mouth, Daily, PRN NEEDED FOR LEG SWELLING, # 90 tablet, 1 Refills, [facility] [id number],168, cm, 04/02/22 15:54:00 EDT, Height, 74.1, kg, 03/30/22 4:57:00 EDT, Dry Weight Start Date: 04/05/22 Status: Ordered Vitamin D3 1000 intl units oral capsule 1 capsule = 1,000 International_Units, By Mouth, Daily, # 90 capsule, 2 Refills, Maintenance, 01/03/22 11:38:00 EDT, Capsule, [facility]/pharmacy #[id number], 162.56, cm, 01/03/22 11:11:00 EDT, [...] Maintenance,04/15/22 12:05:00 EDT, Route to Pharmacy Electronically, [facility]/pharmacy #[id number], let us know if not covered by [...] Team Personnel Name: Katina Zuniga MD Address: [address]
--- OUTSIDE RECORDS SUMMARY | 2023-12-29 21:03 | XMS_ITS | Continuity of Care Document ---
Author Organization [facility] ter Address [address] [place] [address]- Care Team Providers Care Exchange Trouble Shooter Name Role Phone Nadia GUNDERSON, Katina Rosado Primary Care Physician [phone] Encounter [facility] Date(s): 11/02/21 - 11/08/[address] [address]- Encounter Diagnosis Fall(Final) - 11/02/21 Discharge Disposition: A-Transfer SNF Attending Physician: Kanwal Self MD Admitting Physician: Nila Lopez MD Referring Physician: Not on Staff, Referring [...] 8 11/19/12 Given 1Result Comment: Done at [facility] 2Result Comment: Done at [facility] 3Location History: [facility] 4Result Comment: [07/22/2017] [facility] [phone] [facility] 6Result Comment: [06/12/2015] high dose 7Admin Note: VIS GIVEN 8Admin Note: vis given Medications amLODIPine 10 mg oral tablet 10 mg, 1, tablet, By Mouth, Daily, Refills 0, Maintenance, 11/08/21 8:56:00 EDT, Partial fill upon patient request if the prescription is for a schedule II opioid drug. Start Date: 11/08/21 Status: Ordered amLODIPine 10 mg oral tablet 10 mg, Tablet, By Mouth, 11/08/21 9:00:00 EDT Start Date: 11/08/21 Stop Date: 11/08/21 Status: Completed aspirin 325 mg oral delayed release tablet 325 mg, 1, tablet, By Mouth, Daily, # 30 tablet, Refills 0, Tot. Refills 0, Maintenance, 04/27/21 16:38:00 EDT, Route to Pharmacy Electronically, [facility]/pharmacy #[id number], Partial fill upon patient requestif the prescription is for a schedule II opioid kirit... Start Date: 04/27/21 Status: Ordered atenolol 25 mg oral tablet 25 mg, 1, tablet, By Mouth, Daily, # 90 tablet, Refills 3, Tot. Refills 3, Maintenance, 12/10/21 15:42:00 EDT, Route to Pharmacy Electronically, [facility]/pharmacy #[id number], 162.56, cm, 10/10/21 12:54:00 EST,Height, 90.6, kg, 04/27/21 9:57:00 EDT, Dry Weight Start Date: 12/10/21 Stop Date: 12/05/22 Status: Ordered atenolol 25 mg oral tablet 25 mg, Tablet, By Mouth, 11/08/21 9:00:00 EDT Start Date: 11/08/21 Stop Date: 11/08/21 Status: Completed cephalexin monohydrate 500 mg oral capsule 1 capsule = 500 mg, By Mouth, Every 6 hours, 0 Refills, Maintenance, 11/08/21 8:56:00 EDT, Capsule,Partial fill upon patient request if the prescription is for a schedule II opioid drug. Start Date: 11/08/21 Status: Ordered freestyle kip sensors 14 day [...] 03/14/21 14:36:00 EDT, Route to Pharmacy Electronically, [facility]/pharmacy #[id number], 162.56, cm, 03/14/21 14:12:00 EDT, Height, 89.8, kg, 03/14/21 14:12... Start Date: 03/14/21 Stop Date: 05/09/21 Status: Ordered levocetirizine 5 mg oral tablet 1 tablet, By Mouth, Daily in PM, # 30 tablet, 10 Refills, [facility] STORE [id number], 30, TAKE 1 TABLET BY MOUTH EVERY EVENING, 162.56, cm, 10/10/21 13:15:00 EST, Height, 90.6, kg, 04/27/21 9:57:00 EDT, Dry Weight Start Date: 10/16/21 Status: Ordered lithium 300 mg oral tablet 3 tablet = 900 mg, By Mouth, Daily at bedtime, # 270 tablet, 1 Refills, Maintenance, 09/04/21 17:14:00 EST, [facility]/pharmacy #[id number], 162.56, cm, 06/29/21 14:06:00 EDT, Height, 90.6, kg, 04/27/21 9:57:00 EDT, Dry Weight Start Date: 09/04/21 Status: Ordered metFORMIN 1000 mg oral tablet 1 tablet = 1,000 mg, By Mouth, Daily, # 90 tablet, 1 Refills, Maintenance, 09/21/21 9:52:00 EST, Tablet, [facility]/pharmacy #[id number], 162.56, cm, 09/19/21 13:07:00 EST, Height, 90.6, kg, 04/27/21 9:57:00 EDT,Dry Weight Start Date: 09/21/21 Status: Ordered nortriptyline 50 mg oral capsule 1, capsule, By Mouth, Daily at bedtime, # 90 capsule, Refills 1, Tot. Refills 1, Maintenance, 09/04/21 13:33:00 EST, Route to Pharmacy Electronically, [facility]/pharmacy #[id number], 162.56, cm, 06/29/21 14:06:00 EDT, Height, 90.6, kg, 04/27/21 9:57:00 EDT, Dry W... Start Date: 09/04/21 Status: Ordered omeprazole 20 mg oral enteric coated capsule 1 capsule = 20 mg, By Mouth, Daily, # 90 capsule, 3 Refills, Maintenance, 10/10/21 13:07:00 EST, ECCapsule, [facility]/pharmacy #[id number], 162.56, cm, 10/10/21 12:54:00 EST, Height, 90.6, kg, 04/27/21 9:57:00 EDT, Dry Weight Start Date: 10/10/21 Status: Ordered simvastatin 20 mg oral tablet 20 mg, 1, tablet, By Mouth, Daily at bedtime, # 90 tablet, Refills 3, Tot. Refills 3, Maintenance, 03/14/21 14:34:00 EDT, Route to Pharmacy Electronically, [facility]/pharmacy #[id number], 162.56, cm, 03/14/21 [...] system(Confirmed) Active Urinary urgency(Confirmed) Active Wheezing(Confirmed) Active Results Orders for Microbiology Reports Name Date Blood Culture 11/02/21 Blood Culture #2 11/02/21 Urine Culture (URINE CULTURE) 11/02/21 Microbiology Reports TEST:Blood Culture, Second Order STATUS:Auth (Verified) BODY SITE: SOURCE:Blood COLLECTED DATE/TIME:11/02/21 5:54 PM Blood Culture, Second Order SPECIMEN DESCRIPTION : BLOOD RT. HAND SPECIAL REQUESTS : NONE CULTURE : NO GROWTH 5 DAYS. REPORT STATUS : FINAL 11/07/2021 TEST:Urine Culture STATUS:Auth (Verified) BODY SITE: SOURCE:URINE COLLECTED DATE/TIME:11/02/21 5:20 PM Urine Culture SPECIMEN DESCRIPTION : URINE SPECIAL REQUESTS : NONE CULTURE : NO GROWTH REPORT STATUS : FINAL 11/04/2021 TEST:Blood Culture STATUS:Auth (Verified) BODY SITE: SOURCE:Blood COLLECTED DATE/TIME:11/02/21 3:52 PM Blood Culture SPECIMEN DESCRIPTION : BLOOD NO SITE SPECIAL REQUESTS : NONE CULTURE : NO GROWTH 5 DAYS. REPORT STATUS : FINAL 11/07/2021 Radiology Reports * Exam Date Time Procedure Performing Provider Status 11/06/21 1:35 PM Chest 2 Views Frontal and Lat Astrid Conway; Auth (Verified) Notes: (Chest 2 Views Frontal and Lat) Reason For Exam: Cough RESULT: Chest 2 Views Frontal and Lat Chest 2 Views Frontal and Lat INDICATION: Reason: Cough; Clinical Question(s): Aspiration COMPARISON: 11/02/2021 FINDINGS: LINES AND TUBES: None. LUNGS AND PLEURA: Linear atelectasis in the right midlung is noted. Is no consolidation or vascular congestion. No effusion or pneumothorax. HEART, MEDIASTINUM AND EDER: Normal. BONES AND SOFT TISSUES: No acute abnormality. IMPRESSION: No consolidation or edema. WSN: [id number] Ordering Physician: Julia Matt Dictated By: Slime Sharma MD Dictated Date/Time: 11/06/21 4:19 pm Reviewed By: Slime Sharma MD Signed By: Slime Sharma MD Signed Date/Time: 11/06/21 4:19 pm Transcribed By: SAPPHIRE Transcribed Date/Time: 11/06/21 4:18 pm * Exam Date Time Procedure Performing Provider Status 11/03/21 4:23 PM Lumbar Spine 2 or 3 Views Lilli Chinchilla; Auth (Verified) Notes: (Lumbar Spine 2 or 3 Views) Reason For Exam: Pain RESULT: Lumbar Spine 2 or 3 Views Lumbar Spine 2 or 3 Views CLINICAL INDICATION: Reason: Pain; Clinical Question(s): Fracture Dislocation COMPARISONS: None TECHNIQUE: AP, lateral, and coned down LS junction views were obtained. FINDINGS: Overlying bowel gas and stool limits visualization of the lumbar spine on AP projection. There are 5 nonrib-bearing lumbar type vertebra. Lumbar vertebral body heights are maintained. There is no hima-or retrolisthesis. There is mild loss of disc space height. No significant hima or retrolisthesis. Lordosis is maintained. IMPRESSION: No lumbar spine fracture. Mild degenerative disc space narrowing. WSN: [id number] Ordering Physician: Julia Matt Dictated By: Zack Pierce MD Dictated Date/Time: 11/03/21 4:45 pm Reviewed By: Zack Pierce MD Signed By: Zack Pierce MD Signed Date/Time: 11/03/21 4:45 pm Transcribed By: SAPPHIRE Transcribed Date/Time: 11/03/21 4:44 pm * Exam Date Time Procedure Performing Provider Status 11/03/21 9:44 AM Knee 1 or 2 Views Left Medardo Butler (Verified) Notes: (Knee 1 or 2 Views Left) Reason For Exam: Erythema RESULT: Knee 1 or 2 Views Left Examination: Left knee performed on 11/03/2021. History: Reason: Erythema; Clinical Question(s): Fracture Findings: Frontal and lateral views of the left knee are compared to a prior study dated 06/25/2017. There has been progression of medial compartment joint space narrowing with irregularity of the articular margin likely secondary to osteoarthritic change. Osteophyte formation within the lateral compartment is present. There are no fractures. A small joint effusion is identified. IMPRESSION: Osteoarthritic change. Small joint effusion. WSN: [id number] Ordering Physician: Nila Lopez Dictated By: Samantha Barrientos MD Dictated Date/Time: 11/03/21 10:37 a Reviewed By: Samantha Barrientos MD Signed By: Samantha Barrientos MD Signed Date/Time: 11/03/21 10:37 am Transcribed By: SAPPHIRE Transcribed Date/Time: 11/03/21 10:36 am * Exam Date Time Procedure Performing Provider Status 11/03/21 9:44 AM Knee 1 or 2 Views Right Veronika Butler ; Medina (Verified) Notes: (Knee 1 or 2 Views Right) Reason For Exam: Erythema RESULT: Knee 1 or 2 Views Right Examination: Right knee performed on 11/03/2021. History: Reason: Erythema; Clinical Question(s): Fracture Findings: Frontal and lateral views of the right knee are submitted. Medial compartment joint space narrowing is present. There are no fractures. A chondroid lesion within the proximal tibia may represent an enchondroma. There is a small joint effusion. Impression: Osteoarthritic change and small joint effusion. There is no acute osseous abnormality. WSN: [id number] Ordering Physician: Nila Lopez Dictated By: Samantha Barrientos MD Dictated Date/Time: 11/03/21 10:35 a Reviewed By: Samantha Barrientos MD Signed By: Samantha Barrientos MD Signed Date/Time: 11/03/21 10:35 am Transcribed By: SAPPHIRE Transcribed Date/Time: 11/03/21 10:34 am * Exam Date Time Procedure Performing Provider Status 11/02/21 4:09 PM Chest Portable Renée , Lilli; Medina (Veri fied) Notes: (Chest Portable) Reason For Exam: Shortness of Breath RESULT: Chest Portable Chest Portable REASON: Shortness of Breath; Clinical Question(s): CHF / CHF COMPARISON: 01/30/2015. CT from 01/25/2021. FINDINGS: LINES AND TUBES: None. LUNGS AND PLEURA: Low lung volumes with mild basilar atelectasis. Lungs are otherwise clear with no definite consolidation. No pleural effusion. No pneumothorax. HEART, MEDIASTINUM AND EDER: Heart is normal in size. Normal mediastinal and hilar contour. BONES AND SOFT TISSUES: No acute abnormality. Surgical clips in the left chest wall. IMPRESSION: No evidence of acute abnormality. WSN: [id number] Ordering Physician: Randolph Hewitt Dictated By: Zack Jj MD Dictated Date/Time: 11/02/21 4:23 pm Reviewed By: Zack Jj MD Signed By: Zack Jj MD Signed Date/Time: 11/02/21 4:23 pm Transcribed By: SAPPHIRE Transcribed Date/Time: 11/02/21 4:22 pm Vital Signs Most recent to oldest [Reference Range]: 1 2 3 Height 162.56 cm (11/08/21 6:30 AM) 162.56 cm (11/07/21 7:47 PM) 162.56 cm (11/07/21 6:04 PM) Weight 84 kg (11/07/21 10:19 AM) 83.0 kg (11/06/21 8:00 PM) 86.7 kg (11/04/21 7:00 AM) Oxygen Saturation [94-100 %] 95 % (11/08/21 12:00 PM) 98 % (11/08/21 6:30 AM) 93 % *L* (11/08/21 5:00 AM) Pulse Rate [55-90 bpm] 82 bpm (11/08/21 12:00 PM) 75 bpm (11/08/21 9:07 AM) 75 bpm (11/08/21 6:30 AM) Body Mass Index [18.5-24.99] 31.79 *>HHI* (11/07/21 10:19 AM) 32.81 *>HHI* (11/04/21 7:00 AM) 34.25 *>HHI* (11/03/21 12:45 AM) Blood Pressure [90-138/55-84 mm Hg] 147/90mm Hg *H* (11/08/21 12:00 PM) 175/73mm Hg *H* (11/08/21 9:07 AM) 175/73mm Hg *H* (11/08/21 9:07 AM) Respiratory Rate [16-30 br/min] 18 br/min (11/08/21 12:00 PM) 18 br/min (11/08/21 6:30 AM) 18 br/min (11/08/21 5:00 AM) Temperature [96.8-100.4 DegF] 98.0 DegF (11/08/21 12:00 PM) 97.8 DegF (11/08/21 6:30 AM) 98.1 DegF (11/08/21 5:00 AM) Liters per Minute 3 L/min (11/08/21 6:30 AM) 3 L/min (11/08/21 5:00 AM) 3 L/min (11/07/21 7:47 PM) Mode of Delivery (Oxygen) Room air (11/08/21 12:00 PM) Nasal cannula (11/08/21 6:30 AM) Nasal CPAP (11/08/21 5:00 AM) Blood pressure sites Leg, left (11/08/21 12:00 PM) Arm, left (11/08/21 6:30 AM) Arm, left (11/08/21 5:00 AM) Temperature Route Oral (11/08/21 12:00 PM) Oral (11/08/21 6:30 AM) Oral (11/08/21 5:00 AM) Dry Weight 90.5 kg (11/03/21 12:45 AM) Weight Obtained Via Bed scale (11/07/21 10:19 AM) Bed scale (11/06/21 8:00 PM) Bed scale (11/04/21 7:00 AM) Social History Social History Type Response Tobacco Other: 1 pack per da y for 40 years. Sex
--- OUTSIDE RECORDS SUMMARY | 2023-12-29 21:03 | XMS_ITS | Continuity of Care Document ---
Author Organization [facility] Address [address] [place] [address]- Care Team Providers Care Regulatory Administrator Name Role Phone Katina Zuniga MD Primary Care Physician Encounter [facility] [id number] Date(s): 04/03/22 - 05/15/22 [facility] [address] [place], [place] [address] Attending Physician: Katina Zuniga [...] 8 11/19/12 Given 1Result Comment: Done at [facility] 2Result Comment: Done at [facility] 3Location History: [facility] 4Result Comment: [07/22/2017] [facility] [phone] 5[facility] 6Result Comment: [06/12/2015] high [...] 01/03/22 11:36:00 EDT, Route to Pharmacy Electronically, [facility]/pharmacy #[id number], Partial fill upon patient requestif the prescription [...] LEG SWELLING, # 90 tablet, 1 Refills, [facility] STORE 27176,168, cm, 04/02/22 15:54:00 EDT, Height, 74.1, kg, 03/30/22 4:57:00 EDT, Dry Weight Start Date: 04/05/22 Status: Ordered triamcinolone 0.1% topical cream 1 application, Topically, 2 times a day, PRN Rash, for 14 days, apply a thin film, # 60 Gm, 0 Refills, Acute 05/23/22 13:33:00 EDT, 05/09/22 13:33:00 EDT, Cream, [facility]/pharmacy #[id number], Partial fill uponpatient request if the prescription is for a schedu... Start Date: 05/09/22 Stop Date: 05/23/22 Status: Ordered Vitamin D3 1000 intl units oral capsule 1 capsule = 1,000 International_Units, By Mouth, Daily, # 90 capsule, 2 Refills, Maintenance, 01/03/22 11:38:00 EDT, Capsule, [facility]/pharmacy #[id number], 162.56, cm, 01/03/22 11:11:00 [...] Maintenance,04/15/22 12:05:00 EDT, Route to Pharmacy Electronically, [facility]/pharmacy #[id number], let us know if not covered by [...] Team Personnel Name: Katina Zuniga MD Address: [address] [place] [address]
--- OUTSIDE RECORDS SUMMARY | 2023-12-29 21:03 | XMS_ITS | Continuity of Care Document ---
Author Organization [facility] Address [address] [place] [id number]- Care Team Providers Care Rack Pusher Name Role Phone Katina Zuniga MD Primary Care Physician Encounter [facility] Date(s): 08/28/21 - 07/26/22 [facility] [address] [place] [address] Attending Physician: Julian García MD Admitting Physician: Julian García MD Referring Physician: Katina Zuniga MD Allergies, Adverse Reactions, Alerts No Known Allergies Immunizations Given and Recorded Vaccine Date Status Refusal Reason influenza virus vaccine, inactivated 1 06/07/22 Gi xi influenza virus vaccine, inactivated 2 06/08/18 Re corded influenza virus vaccine, inactivated 3 07/22/17 Gi xi influenza virus vaccine, inactivated 09/20/16 Ryan rded influenza virus vaccine, inactivated 07/06/14 Give n SARS-CoV-2 mRNA ([id number]) vax 02/24/22 Recorded SARS-CoV-2 (COVID-19) mRNA BNT-162b2 vac 07/02/21 Recorded SARS-CoV-2 (COVID-19) mRNA BNT-162b2 vac 4 11/09/20 Recorded SARS-CoV-2 (COVID-19) mRNA BNT-162b2 vac 5 10/17/20 Recorded Influenza Virus Vaccine (oldterm) 06/14/21 Recorde d Influenza Virus Vaccine (oldterm) 05/26/19 Recorde d Influenza Virus Vaccine (oldterm) 05/25/13 Given zoster vaccine, inactivated 06/03/19 Recorded zoster vaccine, inactivated 03/15/19 Recorded pneumococcal 13-valent vaccine 6 5/19/16 Recorded Fluzone Preservative-Free (oldterm) 7 06/09/15 Rec orded Zoster Vaccine Live 12/25/12 Recorded pneumococcal 23-valent vaccine 8 11/19/12 Given tetanus/diphtheria/pertussis, acel(Tdap) 9 11/19/12 Given 1Result Comment: [facility] [phone] 2Location History: [facility] 3Result Comment: [07/22/2017] [facility] [phone] 4Result Comment: Done at [facility] 5Result Comment: Done at [facility] 7Result Comment: [06/12/2015] [...] 10/10/21 13:07:00 EST, ECCapsule, [facility]/pharmacy #[id number], 162.56, cm, 10/10/21 12:54:00 EST, Height, 90.6, kg, 04/27/21 9:57:00 EDT, Dry Weight Start Date: 10/10/21 Status: Ordered simvastatin 20 mg oral tablet 20 mg, 1, tablet, By Mouth, Daily at bedtime, # 90 tablet, Refills 3, Tot. Refills 3, Maintenance, 01/03/22 11:37:00 EDT, [id number] 162.56, cm, 01/03/22 11:11:00 EDT, Height, 78.4, kg, 11/16/21 22:27:00 EDT,... Start Date: 01/03/22 Stop Date: 12/29/22 Status: Ordered torsemide 20 mg oral tablet 1 tablet, By Mouth, Daily, PRN NEEDED FOR LEG SWELLING, # 90 tablet, 1 Refills, [facility] STORE 44138,168, cm, 04/02/22 15:54:00 EDT, Height, 74.1, kg, [...] Team Personnel Name: Katina Zuniga MD Position: [facility] Primary Care Physician Member Role: PCP Address: Address: [address] [place] [id number]- Name: Mily Stein RN Position: [facility] RN Member Role: Primary Care Nurse Name: Geno Cifuentes RN Position: [facility] RN Member Role: Primary Care Nurse Name: Rosa Agustin NP Position: [facility] Associate Professional Member Role: Primary Care Nurse Address: Address: [address] [place] [address]- Name: Steve Saravia RN Position: [facility] RN Member Role: Primary Care Nurse Name: Ella Garcia RN Position: [facility] RN Member Role: Primary Care Nurse Name: Cy Benjamin DO Position: [facility] Renal MD Member Role: Lifetime Consulting Physician Address: Address: [address] [place], [place] [address] [place] [address]- Name: Migel Lopez RN Position: [facility] RN Member Role: Primary Care Nurse Name: Stacia Hernandez RN Position: [facility] RN Member Role: Primary Care Nurse Name: Lauren Lund RN Position: [facility] ED RN W/OE and Tasks Member Role: Primary Care Nurse Name: Marisol Grady RN Position: [facility] RN Member Role: Primary Care Nurse Name: Corinna Orozco RN Position: [facility] RN Member Role: Primary Care Nurse Name: Flory Fernandez RN Position: S RN Member Role: Primary Care Nurse Name: Paula Foss RN Position: S RN Member Role: Primary Care Nurse Address: Address: [address] [place] [id number] Name: Arnol Travis RN Position: S RN Member Role: Primary Care Nurse Name: Nidia De Oliveira Position: S RN Member Role: Primary Care Nurse Care Team Related Persons Name: RAFAELA ANDREWS Address: home [address] [place] [address] Name: VALENTINA ARNOLD Address: home [address] [facility] [address] [place] [address]
--- OUTSIDE RECORDS SUMMARY | 2023-12-29 21:03 | XMS_ITS | Continuity of Care Document ---
Author Organization [facility] Address [address] [place] [address]- Care Team Providers Care Explosive Ordnance Disposal Technician Name Role Phone Katina Zuniga MD Primary Care Physician Encounter [facility] Date(s): 12/26/21 - 01/25/22 [facility] [address] [place], [place] [address] Allergies, Adverse Reactions, Alerts [...] [facility] 3Location History: [facility] 4Result Comment: [07/22/2017] [facility] [id number] [facility] 6Result Comment: [06/12/2015] high dose 7Admin Note: VIS GIVEN 8Admin Note: vis given Medications amLODIPine 10 mg oral tablet 10 mg, 1, tablet, By Mouth, Daily, # 90 tablet, Refills 2, Tot. Refills 2, Maintenance, 01/03/22 11:39:00 EDT, Route to Pharmacy Electronically, [facility]/pharmacy #[id number], Partial fill upon patient request if the prescription is for a schedule II opioid drug... Start Date: 01/03/22 Status: Ordered aspirin 325 mg oral delayed release tablet 325 mg, 1, tablet, By Mouth, Daily, # 90 tablet, Refills 2, Tot. Refills 2, Maintenance, 01/03/22 11:36:00 EDT, Route to Pharmacy Electronically, [facility]/pharmacy #[id number], Partial fill upon patient requestif the prescription is for a schedule II opioid kirit... Start Date: 01/03/22 Status: Ordered Diflucan 150 mg oral tablet 1 tablet = 150 mg, By Mouth, Every 48 hours, # 3 tablet, 0 Refills, Acute 02/02/22 11:35:00 EDT, 01/03/22 11:35:00 EDT, Tablet, [facility]/pharmacy #[id number], Partial fill upon patient [...] CHECK BG DAILY FOR DX: E11.9 FREETYLE AKRSTEN SENSOR, 10/27/19 13:58:00 EST, LET PTKNOW IF [...] 1, tablet, By Mouth, Daily, PRN, # 30 tablet, Refills 1, Tot. Refills 1, Maintenance, leg swelling, 01/24/22 13:23:00 EDT, Route to Pharmacy Electronically, [facility]/pharmacy #[id number], Partial fill upon patient request if the prescription is for a sche... Start Date: 01/24/22 Stop Date: 02/07/22 Status: Ordered lamotrigine 25 mg oral tablet [...] Refills, Maintenance, 01/03/22 11:36:00 EDT, ER Tablet, [facility]/pharmacy #[id number], Partial fill upon patient request if the prescription is for a schedule II opioid drug., 162.56, cm, 01/03/22 11:11:00 EDT,... Start Date: 01/03/22 Status: Ordered nortriptyline 25 mg oral capsule 25 mg, 1, capsule, By Mouth, Daily at bedtime, # 90 capsule, Refills 2, Tot. Refills 2, Maintenance, 01/03/22 11:39:00 EDT, Route to Pharmacy Electronically, [facility]/pharmacy #[id number], Partial fill upon patient [...] Date: 01/03/22 Stop Date: 12/29/22 Status: Ordered Tessalon Perles 100 mg oral capsule 2 capsule = 200 mg, By Mouth, 3 times a day, # 30 capsule, 0 Refills, Acute 02/02/22 15:13:00 EDT, 01/23/22 15:13:00 EDT, Capsule, [facility]/pharmacy #[id number], Partial fill upon patient request if the prescription is for a schedule II opioid drug., 162.56, cm,... Start Date: 01/23/22 Stop Date: 02/02/22 Status: Ordered Vitamin D3 1000 intl units [...] Right breast cancer, T1b N0, ER positive, ME positive, HER-2/mickey negative, diagnosed in 2008. Left [...]
--- OUTSIDE RECORDS SUMMARY | 2023-12-29 21:03 | XMS_ITS | Continuity of Care Document ---
Author Organization [facility] ter Address [address] [place] [address]- Care Team Providers Care Medical Stenographer Name Role Phone Katina Zuniga MD Primary Care Physician [facility] Date[facility]s): 11/16/21 - 11/27/[address] [address]- Discharge Disposition: A-Transfer SNF Attending Physician: Althea Navarro MD Admitting Physician: Idania Wilson MD Referring Physician: Not on Staff, Referring [...] 8 11/19/12 Given 1Result Comment: Done at [facility] 2Result Comment: Done at [facility] 3Location History: [facility] 4Result Comment: [07/22/2017] [facility] [id number] [facility] 6Result Comment: [06/12/2015] high [...] oral tablet 10 mg, Tablet, By Mouth, 11/27/21 9:00:00 EDT Start Date: 11/27/21 Stop Date: 11/27/21 Status: Completed amLODIPine 10 mg oral tablet 10 mg, [...] 04/27/21 16:38:00 EDT, Route to Pharmacy Electronically, [facility]/pharmacy #[id number], Partial fill upon patient requestif the prescription [...] drug. Start Date: 11/27/21 Status: Ordered freestyle kip sensors 14 day [...] 03/14/21 14:34:00 EDT, Route to Pharmacy Electronically, [facility]/pharmacy #[id number], 162.56, cm, 03/14/21 [...] Results Orders for Microbiology Reports Name Date Urine Culture 11/22/21 Microbiology Reports TEST:Urine Culture STATUS:Auth (Verified) BODY SITE: SOURCE:MARK COLLECTED DATE/TIME:11/22/21 1:40 PM Urine Culture SPECIMEN DESCRIPTION : BLADDER SPECIAL REQUESTS : NONE CULTURE : NO GROWTH 3 DAYS REPORT STATUS : FINAL 11/25/2021 Radiology Reports * Exam Date Time Procedure Performing Provider Status 11/16/21 3:41 PM Chest Portable Astrid Kearney; Au th (Verified) Notes: (Chest Portable) Reason For Exam: Shortness of Breath RESULT: Chest Portable Chest Portable Hx of Present Illness: Pt at rehab for fall, per family and staff pt has been confused, refusing food and med. Pt has been confused and slurred speach. LNW 3 days ago. Hx TIA; Reason: Shortness of Breath; Clinical Question(s): CHF. COMPARISON: 11/06/2021. FINDINGS: LINES AND TUBES: None. LUNGS AND PLEURA: Low lung volumes with mild basilar atelectasis. Lungs are otherwise clear with no consolidation. No pleural effusion. No pneumothorax, although lung apices partially obscured by patient's chin. HEART, MEDIASTINUM AND EDER: Heart is normal in size. Normal upper mediastinal and hilar contour. BONES AND SOFT TISSUES: No acute abnormality. IMPRESSION: Mild bibasilar atelectasis. Otherwise normal chest. I have personally reviewed the images and I agree with this report. WSN: [id number] Ordering Physician: David Hurt Dictated By: Eleazar Azevedo MD Dictated Date/Time: 11/16/21 4:24 pm Reviewed By: Randolph Crockett MD Signed By: Randolph Crockett MD Signed Date/Time: 11/16/21 4:29 pm Transcribed By: SAPPHIRE Transcribed Date/Time: 11/16/21 4:12 pm Vital Signs Most recent to oldest [Reference Range]: 1 2 3 Height 162.56 cm (11/26/21 1:34 PM) 160 cm (11/16/21 10:27 PM) Weight 77.3 kg (11/26/21 1:34 PM) 78.4 kg (11/16/21 10:27 PM) Oxygen Saturation [94-100 %] 90 % *L* (11/27/21 7:00 AM) 94 % (11/26/21 8:00 PM) 96 % (11/26/21 2:52 PM) Pulse Rate [55-90 bpm] 61 bpm (11/27/21 7:00 AM) 96 bpm *H* (11/26/21 8:00 PM) 62 bpm (11/26/21 2:52 PM) Body Mass Index [18.5-24.99] 29.25 *H* (11/26/21 1:34 PM) 30.63 *>HHI* (11/16/21 10:27 PM) Blood Pressure [90-138/55-84 mm Hg] 128/81mm Hg (11/27/21 9:07 AM) 131/83mm Hg (11/27/21 7:00 AM) 136/67mm Hg (11/26/21 8:00 PM) Respiratory Rate [16-30 br/min] 20 br/min (11/27/21 7:00 AM) 20 br/min (11/26/21 8:00 PM) 18 br/min (11/26/21 2:52 PM) Temperature [96.8-100.4 DegF] 98.3 DegF (11/27/21 7:00 AM) 98.0 DegF (11/26/21 8:00 PM) 98.0 DegF (11/26/21 2:52 PM) Liters per Minute 5 L/min (11/17/21 8:00 AM) 5 L/min (11/17/21 7:00 AM) 5 L/min (11/17/21 6:00 AM) Mode of Delivery (Oxygen) Room air (11/27/21 7:00 AM) Room air (11/26/21 8:00 PM) Room air (11/26/21 2:52 PM) Blood pressure sites Arm, right (11/27/21 7:00 AM) Arm, right (11/26/21 8:00 PM) Arm, right (11/26/21 2:52 PM) Temperature Route Oral (11/27/21 7:00 AM) Oral (11/26/21 8:00 PM) Oral (11/26/21 2:52 PM) Dry Weight 78.4 kg (11/16/21 10:27 PM) Weight Obtained Via Bed scale (11/26/21 1:34 PM) Social History Social History Type Response Smoking Status Former smoker, quit more than 30 days ago entered on: 11/16/21 Sex
--- OUTSIDE RECORDS SUMMARY | 2023-12-29 21:03 | XMS_ITS | Continuity of Care Document ---
Author Organization [facility] Address [address] [place] [address]- Care Team Providers Care Sales And Marketing Agent Name Role Phone Katina Zuniga MD Primary Care Physician [phone] [facility] Date[facility]s): 09/23/22 - 10/23/22 [facility] [address] [place], [place] [address] Allergies, Adverse Reactions, Alerts No Known Allergies Immunizations Given and Recorded Vaccine Date Status Refusal Reason influenza virus vaccine, inactivated 1 06/07/22 Gi xi influenza virus vaccine, inactivated 2 06/08/18 Re corded influenza virus vaccine, inactivated 3 07/22/17 Gi xi influenza virus vaccine, inactivated 09/20/16 Ryan rded influenza virus vaccine, inactivated 07/06/14 Give n SARS-CoV-2 mRNA (ystfqmg-veeg-tdjqr) vax 02/24/22 Recorded SARS-CoV-2 (COVID-19) mRNA BNT-162b2 [...] acel(Tdap) 9 11/19/12 Given 1Result Comment: [facility] [phone] 2Location History: [facility] 3Result Comment: [07/22/2017] [facility] [phone] 4Result Comment: Done at [facility] 5Result Comment: Done at [facility] 7Result Comment: [...] 08/29/22 14:10:00 EST, Route to Pharmacy Electronically, [facility]/pharmacy #[id number], Partial fill upon patient [...] 08/29/22 9:05:00 EST, Route to Pharmacy Electronically, [facility]/pharmacy #[id number], Partial fill upon patient [...] Maintenance, 10/10/21 13:07:00 EST, ECCapsule, [facility]/pharmacy #[id number], 162.56, cm, 10/10/21 12:54:00 [...] EDT, Route to Pharmacy Electronically, [facility]/pharmacy #[id number], 162.56, cm, 01/03/22 11:11:00 EDT, Height, 78.4, kg, 11/16/21 22:27:00 EDT,... Start Date: 01/03/22 Stop Date: 12/29/22 Status: Ordered torsemide 20 mg oral tablet 1 tablet, By Mouth, Daily, PRN NEEDED FOR LEG SWELLING, # 90 tablet, 1 Refills, [facility] STORE [id number],168, cm, 04/02/22 15:54:00 EDT, Height, 74.1, kg, [...] Refills, Maintenance, 08/01/22 11:33:00 EST, ER Tablet, [facility]/pharmacy #[id number], Partial fill upon patient request if the [...] Care Physician Member Role: PCP Address: Address: [address] [place] [address]- Name: Mily Stein RN Position: [facility] RN Member Role: Primary Care Nurse Name: Geno Cifuentes RN Position: [facility] RN Member Role: Primary Care Nurse Name: Rosa Agustin NP Position: [facility] Associate Professional Member Role: Primary Care Nurse Address: Address: [address] [place] [address]- Name: Steve Saravia RN Position: [facility] RN Member Role: Primary Care Nurse Name: Ella Garcia RN Position: [facility] RN Member Role: Primary Care Nurse Name: Cy Benjamin DO Position: [facility] Renal MD Member Role: Lifetime Consulting Physician Address: Address: [address] [place] [address] [address] [facility] [place] [address]- [place] Name: Lauren Lund RN Position: [facility] ED RN W/OE and Tasks Member Role: Primary Care Nurse Name: Marisol Grady RN Position: S RN Member Role: Primary Care Nurse Name: Flory Fernandez RN Position: S RN Member Role: Primary Care Nurse Name: Paula Foss RN Position: [facility] RN Member Role: Primary Care Nurse Address: Address: [address] [facility] [place] [address]- Name: Nidia De Oliveira Position: [facility] RN Member Role: Primary Care Nurse Care Team Related Persons Name: RAFAELA ANDERWS Address: home [address] [place] [address] Name: VALENTINA ARNOLD Address: home [address] [place] [address]
--- OUTSIDE RECORDS SUMMARY | 2023-12-29 21:03 | XMS_ITS | Continuity of Care Document ---
Author Organization [facility] Address [address] [place] [address]- Care Team Providers Care Volunteer Services Assistant Name Role Phone Katina Zuniga MD Primary Care Physician [phone] [facility] Date[facility]s): 04/30/22 - 05/30/22 [facility] [address] [place], [place] [address] Allergies, Adverse Reactions, Alerts No Known [...] 11/19/12 Given 1Result Comment: Done at [facility] 2Result Comment: Done at [facility] 3Location History: [facility] 4Result Comment: [07/22/2017] [facility] [phone] 5[facility] 6Result Comment: [06/12/2015] high [...] 01/03/22 11:36:00 EDT, Route to Pharmacy Electronically, [facility]/pharmacy #[id number], Partial fill upon patient requestif the prescription [...] 0 Refills, Maintenance, 02/04/22 8:30:00 EDT, Ointment, [facility]/pharmacy #[id number], Partial fill upon patient request [...] 01/03/22 11:37:00 EDT, Route to Pharmacy Electronically, [facility]/pharmacy #[id number], 162.56, cm, 01/03/22 11:11:00 EDT, Height, 78.4, kg, 11/16/21 22:27:00 EDT,... Start Date: 01/03/22 Stop Date: 12/29/22 Status: Ordered torsemide 20 mg oral tablet 1 tablet, By Mouth, Daily, PRN NEEDED FOR LEG SWELLING, # 90 tablet, 1 Refills, [facility] STORE 62319,168, cm, 04/02/22 15:54:00 EDT, Height, 74.1, kg, 03/30/22 4:57:00 EDT, Dry Weight Start Date: 04/05/22 Status: Ordered Vitamin D3 1000 intl units oral capsule 1 capsule = 1,000 International_Units, By Mouth, Daily, # 90 capsule, 2 Refills, Maintenance, 01/03/22 11:38:00 EDT, Capsule, [facility]/pharmacy #[id number], 162.56, cm, 01/03/22 11:11:00 EDT, [...] Maintenance,04/15/22 12:05:00 EDT, Route to Pharmacy Electronically, [facility]/pharmacy #[id number], let us know if not [...] Personnel Name: Katina Zuniga MD Address: Address: [address] [place] [address]
--- OUTSIDE RECORDS SUMMARY | 2023-12-29 21:03 | XMS_ITS | Continuity of Care Document ---
Author Organization [facility] Address [address] [place] [address]- Care Team Providers Care Inside Sales Associate Name Role Phone Katina Zuniga MD Primary Care Physician Encounter [facility] Date(s): 12/27/21 - 01/26/22 [facility] [address] [place], [place] [address] Allergies, Adverse Reactions, Alerts [...] 8 11/19/12 Given 1Result Comment: Done at [facility] 2Result Comment: Done at [facility] 3Location History: [facility] 4Result Comment: [07/22/2017] [facility] [id number] 5[facility] 6Result Comment: [06/12/2015] high dose 7Admin Note: VIS GIVEN 8Admin Note: vis given Medications amLODIPine 10 mg oral tablet 10 mg, 1, tablet, By Mouth, Daily, # 90 tablet, Refills 2, Tot. Refills 2, Maintenance, 01/03/22 11:39:00 EDT, Route to Pharmacy Electronically, [facility]/pharmacy #[id number], Partial fill upon patient request if the prescription is for a schedule II opioid drug... Start Date: 01/03/22 Status: Ordered aspirin 325 mg oral delayed release tablet 325 mg, 1, tablet, By Mouth, Daily, # 90 tablet, Refills 2, Tot. Refills 2, Maintenance, 01/03/22 11:36:00 EDT, Route to Pharmacy Electronically, [facility]/pharmacy #[id number], Partial fill upon patient requestif the prescription is for a schedule II opioid kirit... Start Date: 01/03/22 Status: Ordered Diflucan 150 mg oral tablet 1 tablet = 150 mg, By Mouth, Every 48 hours, # 3 tablet, 0 Refills, Acute 02/02/22 11:35:00 EDT, 01/03/22 11:35:00 EDT, Tablet, [facility]/pharmacy #[id number], Partial [...] 01/24/22 13:23:00 EDT, Route to Pharmacy Electronically, [facility]/pharmacy #[id number], Partial fill upon patient request if the prescription is for a sche... Start Date: 01/24/22 Stop Date: 02/07/22 Status: Ordered lamotrigine 25 mg oral tablet 50 mg, 2, tablet, By Mouth, Daily, TAKE 2 TABLET BY MOUTH EVERY DAY, # 180 tablet, Refills 2, Tot. Refills 2, Maintenance, 01/08/22 15:28:00 EDT, Route to Pharmacy Electronically, [facility]/pharmacy #[id number],dose change, 162.56, cm, 01/03/22 11:11:00 EDT, Hei... Start Date: 01/08/22 Status: Ordered metFORMIN 500 mg oral tablet, extended release 1 tablet = 500 mg, By Mouth, Daily, # 90 tablet, 1 Refills, Maintenance, 01/03/22 11:36:00 EDT, ER Tablet, [facility]/pharmacy #[id number], Partial fill upon patient request if the prescription is for a schedule II opioid drug., 162.56, cm, 01/03/22 11:11:00 EDT,... Start Date: 01/03/22 Status: Ordered nortriptyline 25 mg oral capsule 25 mg, 1, capsule, By Mouth, Daily at bedtime, # 90 capsule, Refills 2, Tot. Refills 2, Maintenance, 01/03/22 11:39:00 EDT, Route to Pharmacy Electronically, [facility]/pharmacy #[id number], Partial fill upon patient request if the prescription is for a schedule I... Start Date: 01/03/22 Status: Ordered omeprazole 20 mg oral enteric coated capsule 1 capsule = 20 mg, By Mouth, Daily, # 90 capsule, 3 Refills, Maintenance, 10/10/21 13:07:00 EST, ECCapsule, [facility]/pharmacy #[id number], 162.56, cm, 10/10/21 12:54:00 EST, [...] Right breast cancer, T1b N0, ER positive, SD positive, HER-2/mickey negative, diagnosed in 2008. Left [...]
--- OUTSIDE RECORDS SUMMARY | 2023-12-29 21:03 | XMS_ITS | Continuity of Care Document ---
Author Organization [facility] Address [address] [place] [address]- Care Team Providers Care Education Courses Sales Representative Name Role Phone Katina Zuniga MD Primary Care Physician [phone] [facility]counter [facility] Date(s): 04/08/22 - 05/08/22 [facility] [address] [place], [place] [address] Allergies, Adverse Reactions, Alerts [...] Comment: Done at [facility] 3Location History: [facility] 4Result Comment: [07/22/2017] [facility] [id number] 5[facility] 6Result Comment: [06/12/2015] high [...] 01/03/22 11:36:00 EDT, Route to Pharmacy Electronically, [facility]/pharmacy #[id number], Partial fill upon patient requestif the prescription is for a schedule II opioid kirit... Start Date: 01/03/22 Status: Ordered divalproex sodium 500 mg oral enteric coated tablet = 500 mg, By Mouth, 2 times a day, # 60 tablet, 2 Refills, Maintenance, 04/12/22 15:12:00 EDT, Tablet, [facility]/pharmacy #[id number], Partial fill upon [...] 0 Refills, Maintenance, 02/04/22 8:30:00 EDT, Ointment, [facility]/pharmacy #[id number], Partial fill upon patient request if the [...] 3 Refills, Maintenance, 10/10/21 13:07:00 EST, [id number] 162.[facility], cm, 10/10/21 12:54:00 EST, Height, 90.6, kg, 04/27/21 9:57:00 EDT, Dry Weight Start Date: 10/10/21 Status: Ordered simvastatin 20 mg oral tablet 20 mg, 1, tablet, By Mouth, Daily at bedtime, # 90 tablet, Refills 3, Tot. Refills 3, Maintenance, 01/03/22 11:37:00 EDT, [id number], 162.56, cm, 01/03/22 11:11:00 EDT, Height, 78.4, kg, 11/16/21 22:27:00 EDT,... Start Date: 01/03/22 Stop Date: 12/29/22 Status: Ordered torsemide 20 mg oral tablet 1 tablet, By Mouth, Daily, PRN NEEDED FOR LEG SWELLING, # 90 tablet, 1 Refills, [facility] STORE 56716,168, cm, 04/02/22 15:54:00 EDT, Height, 74.1, kg, 03/30/22 4:57:00 EDT, Dry Weight Start Date: 04/05/22 Status: Ordered Vitamin D3 1000 intl units oral capsule 1 capsule = 1,000 International_Units, By Mouth, Daily, # 90 capsule, 2 Refills, Maintenance, 01/03/22 11:38:00 EDT, [id number] 162.56, cm, 01/03/22 11:11:00 EDT, [...] Maintenance,04/15/22 12:05:00 EDT, Route to Pharmacy Electronically, [facility]/pharmacy #[id number], let us know if not covered by [...] Team Personnel Name: Katina Zuniga MD Address: [address] [place] [address]
--- OUTSIDE RECORDS SUMMARY | 2023-12-29 21:03 | XMS_ITS | Continuity of Care Document ---
Author Organization [facility] Address [address] [place] [address]- Care Team Providers Care Credit Historian Name Role Phone Katina Zuniga MD Primary Care Physician Encounter [facility] Date(s): 03/28/22 - 04/27/22 [facility] [address] [place], [place] [address] Allergies, Adverse Reactions, Alerts No [...] 8 11/19/12 Given 1Result Comment: Done at [facility] 2Result Comment: Done at [facility] 3Location History: [facility] 4Result Comment: [07/22/2017] [facility] [id number] 5[facility] 6Result Comment: [06/12/2015] high [...] EDT, Route to Pharmacy Electronically, [facility]/pharmacy #[id number], Partial fill upon patient requestif the prescription is for a schedule II opioid kirit... Start Date: 01/03/22 Status: Ordered divalproex sodium 500 mg oral enteric coated tablet = 500 mg, By Mouth, 2 times a day, # 60 tablet, 2 Refills, Maintenance, 04/12/22 15:12:00 EDT, Tablet, [facility]/pharmacy #[id number], Partial fill upon patient [...] Maintenance, 02/04/22 8:30:00 EDT, Ointment, [facility]/pharmacy #0629, Partial fill upon patient request if the [...] 3 Refills, Maintenance, 10/10/21 13:07:00 EST, [id number], cm, 10/10/21 12:54:00 EST, Height, 90.6, kg, 04/27/21 9:57:00 EDT, Dry Weight Start Date: 10/10/21 Status: Ordered simvastatin 20 mg oral tablet 20 mg, 1, tablet, By Mouth, Daily at bedtime, # 90 tablet, Refills 3, Tot. Refills 3, Maintenance, 01/03/22 11:37:00 EDT, [id number] 162.[facility], cm, 01/03/22 11:11:00 EDT, Height, 78.4, kg, 11/16/21 22:27:00 EDT,... Start Date: 01/03/22 Stop Date: 12/29/22 Status: Ordered torsemide 20 mg oral tablet 1 tablet, By Mouth, Daily, PRN NEEDED FOR LEG SWELLING, # 90 tablet, 1 Refills, [facility] STORE 76476,168, cm, 04/02/22 15:54:00 EDT, Height, 74.1, kg, 03/30/22 4:57:00 EDT, Dry Weight Start Date: 04/05/22 Status: Ordered Vitamin D3 1000 intl units oral capsule 1 capsule = 1,000 International_Units, By Mouth, Daily, # 90 capsule, 2 Refills, Maintenance, 01/03/22 11:38:00 EDT, [id number] 162.[facility], cm, 01/03/22 11:11:00 EDT, Height, [...] Maintenance,04/15/22 12:05:00 EDT, Route to Pharmacy Electronically, [facility]/pharmacy #[id number], let us know if not covered by [...] Team Personnel Name: Katina Zuniga MD Address: [address] [place] [address]
--- OUTSIDE RECORDS SUMMARY | 2023-12-29 21:03 | XMS_ITS | Continuity of Care Document ---
Author Organization [facility] Address [address] [place] [address]- Care Team Providers Care Auto Carrier Driver Name Role Phone Nadia GUNDERSON, Katina Rosado Primary Care Physician Encounter [facility] Date(s): 06/29/21 - 07/29/21 [facility] [address] [place], [place] [address] Attending Physician: Merlyn Murillo Admitting Physician: Merlyn Murillo Referring Physician: AdmtrMerlyn Allergies, Adverse Reactions, Alerts Substance Reaction Severity [...] Done at [facility] 3Location History: [facility] 4Result Comment: [07/22/2017] [facility] [id number] 5[facility] 6Result Comment: [06/12/2015] high [...] 12/15/20 15:42:00 EDT, [id number] 162.[facility], cm, 12/15/20 15:05:00 [...] Maintenance, 09/05/20 14:33:00 EST, [facility]/pharmacy #[id number], 160, cm, 09/05/20 14:19:00 EST, Height, 94.3, kg, 03/02/19 15:45:00 EDT, Dry Weight Start Date: 09/05/20 Status: Ordered metFORMIN 1000 mg oral tablet 1 tablet = 1,000 mg, By Mouth, Daily, # 90 tablet, 3 Refills, Maintenance, 12/15/20 15:41:00 EDT, Tablet, [facility]/pharmacy #[id number], 162.56, cm, 12/15/20 15:05:00 EDT, Height, [...] 3 Refills, Maintenance, 09/05/20 14:34:00 EST, [facility], [id number], cm, 09/05/20 14:19:00 EST, Height, [...]
--- OUTSIDE RECORDS SUMMARY | 2023-12-29 21:03 | XMS_ITS | Continuity of Care Document ---
Author Organization [facility] Address [address] [place] [address]- Care Team Providers Care Lathe Operator Name Role Phone Katina Zuniga MD Primary Care Physician [facility] Date(s): 09/23/19 - 09/30/19 [facility] [address] [place] [address]- [facility] Attending Physician: Katina Zuniga MD Allergies, Adverse [...] [address] 2Result Comment: [07/22/2017] [facility][note 3] [id number] 3[facility] 4Result Comment: [06/12/2015] high [...] 12/01/18 15:56:18 EDT, Route to Pharmacy Electronically, [id number], [facility]/pharmacy #[id number] Start Date: 12/01/18 Stop Date: 11/26/19 Status: Ordered Calcium Carbonate By Mouth, 1000mg, 0 Refills, Maintenance, 01/12/18 13:45:02 EDT Start Date: 01/12/18 Status: Ordered Fosamax 70 mg oral tablet 1 tablet = 70 mg, By Mouth, Every week, # 4 tablet, 11 Refills, Maintenance, 09/20/19 16:46:00 EST,Tablet, [facility]/pharmacy #[id number], 160, cm, 03/26/19 13:55:00 EDT, [...] 06/30/19 14:03:36 EST, Route to Pharmacy Electronically, [id number], [facility]/pharmacy #[id number] Start Date: 06/30/19 Stop Date: [...] 06/30/19 14:01:33 EST, Route to Pharmacy Electronically, [id number], [facility]/pharmacy #[id number] Start Date: 06/30/19 Stop Date: [...]
--- OUTSIDE RECORDS SUMMARY | 2023-12-29 21:03 | XMS_ITS | Continuity of Care Document ---
Author Organization [facility] Address [address] [place] [address]- Care Team Providers Care Fuel Agent Name Role Phone Nadia GUNDERSON, Katina Rosado Primary Care Physician [phone] Encounter [facility] Date(s): 06/04/21 - 07/04/21 [facility] [address] [place], [place] [address] Allergies, Adverse Reactions, Alerts Substance [...] 8 11/19/12 Given 1Result Comment: Done at [facility] 2Result Comment: Done at [facility] 3Location History: [facility] 4Result Comment: [07/22/2017] [facility] [phone] 5[facility] 6Result Comment: [06/12/2015] high [...] 12/15/20 15:42:00 EDT, Route to Pharmacy Electronically, [facility]/pharmacy #[id number], 162.56, cm, 12/15/20 15:05:00 EDT,Height, [...] tablet, 2 Refills, Maintenance, 09/05/20 14:33:00 EST, [facility]/pharmacy #[id number], 160, cm, 09/05/20 14:19:00 EST, [...] 3 Refills, Maintenance, 09/05/20 14:34:00 EST, ECCapsule, [facility]/pharmacy #[id number], 160, cm, 09/05/20 14:19:00 EST, [...] Right breast cancer, T1b N0, ER positive, LA positive, HER-2/mickey negative, diagnosed in 2008. Left [...]
--- OUTSIDE RECORDS SUMMARY | 2023-12-29 21:04 | XMS_ITS | Continuity of Care Document ---
Author Organization [facility] Address [address] [place] [address]- Care Team Providers Care Systems Test Technician Name Role Phone Katina Zuniga MD Primary Care Physician [phone] Encounter [facility] Date(s): 03/14/21 - 04/13/21 [facility] [address] [place], [place] [address] Attending Physician: Merlyn Murillo Admitting Physician: Merlyn [...] [facility] 3Location History: [facility] 4Result Comment: [07/22/2017] [facility] [phone] 5[facility] 6Result Comment: [06/12/2015] high [...] 15:42:00 EDT, Route to Pharmacy Electronically, [facility]/pharmacy #[id number], 162.56, cm, 12/15/20 15:05:00 [...] 14:36:00 EDT, Route to Pharmacy Electronically, [facility]/pharmacy #[id number], 162.56, cm, 03/14/21 14:12:00 EDT, Height, 89.8, kg, 03/14/21 14:12... Start Date: 03/14/21 Stop Date: 05/09/21 Status: Ordered lithium 300 mg oral tablet 3 tablet = 900 mg, By Mouth, Daily at bedtime, # 270 tablet, 2 Refills, Maintenance, 09/05/20 14:33:00 EST, [facility]/pharmacy #[id number], 160, cm, 09/05/20 14:19:00 EST, Height, 94.3, kg, 03/02/19 15:45:00 EDT, Dry Weight Start Date: 09/05/20 Status: Ordered metFORMIN 1000 mg oral tablet 1 tablet = 1,000 mg, By Mouth, Daily, # 90 tablet, 3 Refills, Maintenance, 12/15/20 15:41:00 EDT, Tablet, [facility]/pharmacy #[id number], 162.56, cm, 12/15/20 15:05:00 EDT, Height, 91, kg, 12/13/20 6:45:00 EDT, Dry Weight Start Date: 12/15/20 Status: Ordered nortriptyline 50 mg oral capsule 1, capsule, By Mouth, Daily at bedtime, # 90 capsule, Refills 3, Tot. Refills 3, Maintenance, 03/14/21 14:34:00 EDT, Route to Pharmacy Electronically, [facility]/pharmacy #[id number], 162.56, cm, 03/14/21 14:12:00 EDT, Height, 89.8, kg, 03/14/21 14:12:00 EDT, Dry... Start Date: 03/14/21 Status: Ordered omeprazole 20 mg oral enteric coated capsule 1 capsule = 20 mg, By Mouth, Daily, # 90 capsule, 3 Refills, Maintenance, 09/05/20 14:34:00 EST, ECCapsule, [facility]/pharmacy #[id number], 160, cm, 09/05/20 14:19:00 EST, Height, 94.3, kg, 03/02/19 15:45:00 EDT, Dry Weight Start Date: 09/05/20 Status: Ordered simvastatin 20 mg oral tablet 20 mg, 1, tablet, By Mouth, Daily at bedtime, # 90 tablet, Refills 3, Tot. Refills 3, Maintenance, 03/14/21 14:34:00 EDT, Route to Pharmacy Electronically, [facility]/pharmacy #[id number], 162.56, cm, 03/14/21 14:12:00 [...]
--- OUTSIDE RECORDS SUMMARY | 2023-12-29 21:04 | XMS_ITS | Continuity of Care Document ---
Author Organization [facility] ter Address [address] [place] [address]- Care Team Providers Care Cycle Analyst Name Role Phone Katina Zuniga MD Primary Care Physician Encounter [facility] Date(s): 04/11/22 - 04/12/[address] [address] Discharge Disposition: A-D/C Home Attending Physician: Monique Walton MD Admitting Physician: Jose King MD Referring Physician: Not on Staff, Referring [...] [facility] 3Location History: [facility] 4Result Comment: [07/22/2017] [facility] [id number] 5[facility] 6Result Comment: [06/12/2015] high dose 7Admin Note: VIS GIVEN 8Admin Note: vis given Medications Acetaminophen Tablet 650 mg, Tablet, By Mouth, Every 4 hours, PRN for Pain , Mild, Temperature Greater than 100.5, Routine, 04/09/22 2:38:00 EDT Start Date: 04/09/22 Stop Date: 04/13/22 Status: Discontinued amLODIPine 5 mg oral tablet 5 mg, Tablet, By Mouth, 04/12/22 9:00:00 EDT Start Date: 04/12/22 Stop Date: 04/12/22 Status: Completed amLODIPine 5 mg oral tablet [...] 2 Refills, Maintenance, 04/12/22 15:12:00 EDT, Tablet, [facility]/pharmacy [...] 04/17/22 15:11:00 EDT, 04/12/22 15:11:00 EDT, Tablet, [facility]/pharmacy [...] Refills, [facility] STORE 18093,168, cm, 04/02/22 15:54:00 EDT, Height, 74.1, kg, [...] Active Venous insufficiency(Confirmed) Active Wheezing(Confirmed) Active Results Orders for Microbiology Reports Name Date Urine Culture (URINE CULTURE) 04/09/22 Microbiology Reports TEST:Urine Culture STATUS:Auth (Verified) BODY SITE: SOURCE:URINE COLLECTED DATE/TIME:04/09/22 11:02 AM Urine Culture SPECIMEN DESCRIPTION : URINE SPECIAL REQUESTS : NONE CULTURE : >100,000 COL/ML STAPHYLOCOCCUS EPIDERMIDIS This isolate was identified using Maldi-TOF system REPORT STATUS : FINAL 04/11/2022 ORGANISM >100,000 COL/ML STAPHYLOCOCCUS EPIDERMIDIS This isolate was identified using Maldi-TOF system METHOD MIN. INHIB. CONC. (MCG/ML) CIPROFLOXACIN SUSCEPTIBLE LEVOFLOXACIN SUSCEPTIBLE NITROFURANTOIN SUSCEPTIBLE RIFAMPIN SUSCEPTIBLE TRIMETH/SULFAMETHOX SUSCEPTIBLE VANCOMYCIN SUSCEPTIBLE Radiology Reports * Exam Date Time Procedure Performing Provider Status 04/12/22 12:42 PM Elbow Min 3 Views Right Do , Chandan; Auth (Verified) Notes: (Elbow Min 3 Views Right) Reason For Exam: Pain RESULT: Elbow Min 3 Views Right Elbow Min 3 Views Right, 3 views REASON: Pain; CLINICAL QUESTION(S): Fracture COMPARISON: None. FINDINGS: No acute fracture or dislocation. No radiolucent or sclerotic lesion. No elbow effusion. IMPRESSION: No acute osseous abnormality is seen.. I have personally reviewed the images and I agree with this report. WSN: [id number] Ordering Physician: Monique Walton Dictated By: Pool Mata MD Dictated Date/Time: 04/12/22 3:15 pm Reviewed By: Nestor Myles MD, V Signed By: Nestor Myles MD, V Signed Date/Time: 04/12/22 3:20 pm Transcribed By: SAPPHIRE Transcribed Date/Time: 04/12/22 2:52 pm * Exam Date Time Procedure Performing Provider Status 04/12/22 12:42 PM Shoulder Min 2 Views Right Do , Chandan; Auth (Verified) Notes: (Shoulder Min 2 Views Right) Reason For Exam: Pain RESULT: Shoulder Min 2 Views Right Shoulder Min 2 Views Right, 2 views REASON: Pain; CLINICAL QUESTION(S): Fracture COMPARISON: Chest radiograph 02/01/2022. FINDINGS: No acute fracture or dislocation. No Hill-Sachs lesion. 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 Partially visualized lungs appears normal. Surgical clips in the right axillary region. IMPRESSION: No acute osseous abnormality is seen.. I have personally reviewed the images and I agree with this report. WSN: [id number] Ordering Physician: Monique Walton Dictated By: Pool Mata MD Dictated Date/Time: 04/12/22 3:14 pm Reviewed By: Nestor Myles MD, V Signed By: Nestor Myles MD, V Signed Date/Time: 04/12/22 3:19 pm Transcribed By: SAPPHIRE Transcribed Date/Time: 04/12/22 2:50 pm * Exam Date Time Procedure Performing Provider Status 04/08/22 7:40 PM Chest Single Frontal View Jade Vaughn r; Auth (Verified) Notes: (Chest Single Frontal View) Reason For Exam: Shortness of Breath RESULT: Chest Single Frontal View Chest Single Frontal View, performed upright at 7:36 PM Hx of Present Illness: Pt from home w AMS. Unknown LSN. Visiting nurse comes once a week and found her to be confused today. Nonsensical and tangental speech. Pt will answer questions appropriately initially and then change direction; Reason: Shortness of Breath; Clinical Question(s): Atelectasis COMPARISON: Multiple prior chest x-rays, the most recent of which is dated 04/02/2022. FINDINGS: LINES AND TUBES: None. LUNGS AND PLEURA: Clear lungs. Normal pulmonary vascularity. No pleural effusion. No pneumothorax. HEART, MEDIASTINUM AND EDER: Heart is normal in size. Normal upper mediastinal and hilar contour. BONES AND SOFT TISSUES: No acute abnormality. IMPRESSION: No acute abnormality. WSN: [id number] Ordering Physician: Jean Calderón Dictated By: Veronika Cool MD Dictated Date/Time: 04/08/22 7:55 pm Reviewed By: Veronika Cool MD Signed By: Veronika Cool MD Signed Date/Time: 04/08/22 7:55 pm Transcribed By: SAPPHIRE Transcribed Date/Time: 04/08/22 7:54 pm Vital Signs Most recent to oldest [Reference Range]: 1 2 3 Oxygen Saturation [94-100 %] 100 % (04/12/22 2:00 PM) 94 % (04/12/22 6:00 AM) 97 % (04/11/22 1:00 PM) Pulse Rate [55-90 bpm] 88 bpm (04/12/22 2:00 PM) 78 bpm (04/12/22 6:00 AM) 85 bpm (04/11/22 1:00 PM) Blood Pressure [90-138/55-84 mm Hg] 120/63mm Hg (04/12/22 2:00 PM) 143/81mm Hg *H* (04/12/22 9:49 AM) 139/89mm Hg *H* (04/12/22 6:00 AM) Respiratory Rate [16-30 br/min] 18 br/min (04/12/22 2:00 PM) 16 br/min (04/12/22 6:00 AM) 17 br/min (04/12/22 4:14 AM) Temperature [96.8-100.4 DegF] 97.3 DegF (04/12/22 2:00 PM) 98.0 DegF (04/12/22 6:00 AM) 97.5 DegF (04/11/22 1:00 PM) Mode of Delivery (Oxygen) Room air (04/12/22 6:00 AM) Room air (04/11/22 1:00 PM) Room air (04/11/22 5:54 AM) Blood pressure sites Arm, right (04/12/22 2:00 PM) Arm, right (04/12/22 6:00 AM) Arm, right (04/11/22 1:00 PM) Temperature Route Oral (04/12/22 2:00 PM) Oral (04/12/22 6:00 AM) Oral (04/11/22 1:00 PM) Social History Social History Type Response Smoking Status Former smoker, quit more than 30 days ago entered on: 11/16/21 Sex
--- OUTSIDE RECORDS SUMMARY | 2023-12-29 21:04 | XMS_ITS | Continuity of Care Document ---
Author Organization [facility] Address [address] [place] [address]- Care Team Providers Care Telegraphic Service Dispatcher Name Role Phone Katina Zuniga MD Primary Care Physician [facility]counter [facility] Date(s): 01/15/22 - 02/14/22 [facility] [address] [place], [place] [address] Allergies, Adverse Reactions, Alerts No Known [...] 8 11/19/12 Given 1Result Comment: Done at [facility] 2Result Comment: Done at [facility] 3Location History: [facility] 4Result Comment: [07/22/2017] [facility] [phone] 5[facility] 6Result Comment: [06/12/2015] high [...] [id number] fill upon patient requestif [...]
--- OUTSIDE RECORDS SUMMARY | 2023-12-29 21:04 | XMS_ITS | Continuity of Care Document ---
Author Organization [facility] Address [address] [place] [address]- Care Team Providers Care Auto Body Detailer Name Role Phone Katina Zuniga MD Primary Care Physician Encounter [facility] Date(s): 10/19/21 - 11/18/21 [facility] [address] [place], [place] [address] Attending Physician: Merlyn Murillo Admitting Physician: [...] vaccine 7 11/19/12 Given tetanus/diphtheria/pertussis, acel(Tdap) 8 3/28/13 Given 1Result Comment: Done at [facility] 2Result Comment: Done at [facility] 3Location History: [facility] 4Result Comment: [07/22/2017] [facility] [phone] 5[facility] 6Result Comment: [06/12/2015] high [...] 04/27/21 16:38:00 EDT, Route to Pharmacy Electronically, [facility]/pharmacy #[id number], Partial fill upon patient requestif the prescription is for a schedule II opioid kirit... Start Date: 04/27/21 Status: Ordered atenolol 25 mg oral tablet 25 mg, 1, tablet, By Mouth, Daily, # 90 tablet, Refills 3, Tot. Refills 3, Maintenance, 12/10/21 15:42:00 EDT, Route to Pharmacy Electronically, [facility]/pharmacy #[id number], 162.56, cm, 10/10/21 12:54:00 [...] 03/14/21 14:36:00 EDT, Route to Pharmacy Electronically, [facility]/pharmacy #[id number], 162.56, cm, 03/14/21 14:12:00 EDT, Height, 89.8, kg, 03/14/21 14:12... Start Date: 03/14/21 Stop Date: 05/09/21 Status: Ordered levocetirizine 5 mg oral tablet 1 tablet, By Mouth, Daily in PM, # 30 tablet, 10 Refills, [facility] STORE [id number], 30, TAKE 1 TABLET BY MOUTH EVERY EVENING, 162.56, cm, 10/10/21 13:15:00 EST, Height, 90.6, kg, 04/27/21 9:57:00 EDT, Dry Weight Start Date: 10/16/21 Status: Ordered lithium 300 mg oral tablet 3 tablet = 900 mg, By Mouth, Daily at bedtime, # 270 tablet, 1 Refills, Maintenance, 09/04/21 17:14:00 EST, [facility]/pharmacy #[id number], 162.56, cm, 06/29/21 14:06:00 EDT, Height, 90.6, kg, 04/27/21 9:57:00 EDT, Dry Weight Start Date: 09/04/21 Status: Ordered metFORMIN 1000 mg oral tablet 1 tablet = 1,000 mg, By Mouth, Daily, # 90 tablet, 1 Refills, Maintenance, 09/21/21 9:52:00 EST, Tablet, [facility]/pharmacy #[id number], 162.56, cm, 09/19/21 13:07:00 EST, Height, 90.6, kg, 04/27/21 9:57:00 EDT,Dry Weight Start Date: 09/21/21 Status: Ordered nortriptyline 50 mg oral capsule 1, capsule, By Mouth, Daily at bedtime, # 90 capsule, Refills 1, Tot. Refills 1, Maintenance, 09/04/21 13:33:00 EST, Route to Pharmacy Electronically, [facility]/pharmacy #[id number], 162.56, cm, 06/29/21 14:06:00 EDT, Height, 90.6, kg, 04/27/21 9:57:00 EDT, Dry W... Start Date: 09/04/21 Status: Ordered omeprazole 20 mg oral enteric coated capsule 1 capsule = 20 mg, By Mouth, Daily, # 90 capsule, 3 Refills, Maintenance, 10/10/21 13:07:00 EST, ECCapsule, [facility]/pharmacy #[id number], 162.56, cm, 10/10/21 12:54:00 EST, Height, 90.6, kg, 04/27/21 9:57:00 EDT, Dry Weight Start Date: 10/10/21 Status: Ordered simvastatin 20 mg oral tablet 20 mg, 1, tablet, By Mouth, Daily at bedtime, # 90 tablet, Refills 3, Tot. Refills 3, Maintenance, 03/14/21 14:34:00 EDT, Route to Pharmacy Electronically, [facility]/pharmacy #[id number], 162.56, cm, 03/14/21 14:12:00 [...]
--- OUTSIDE RECORDS SUMMARY | 2023-12-29 21:04 | XMS_ITS | Continuity of Care Document ---
Author Organization [facility] Address [address] [place] [address]- Care Team Providers Care Chemist Pharmaceutical Name Role Phone Katina Zuniga MD Primary Care Physician [phone] [facility]counter [facility] Date(s): 02/19/22 - 03/21/22 [facility] [address] [place], [place] [address] Allergies, Adverse Reactions, Alerts No Known [...] 1Result Comment: Done at [facility] 2Result Comment: Done at [facility] 3Location History: [facility] 4Result Comment: [07/22/2017] [facility] [phone] 5[facility] 6Result Comment: [06/12/2015] high [...] Route to Pharmacy Electronically, [facility]/pharmacy #[id number], Partial fill upon patient requestif the prescription [...] Route to Pharmacy Electronically, [facility]/pharmacy #[id number],dose change, 162.56, cm, 01/03/22 11:11:00 EDT, Hei... Start Date: 01/08/22 Status: Ordered lanolin topical - ointment 1 application, Topically, 3 times a day, PRN as needed for dry skin, # 113 Gm, 0 Refills, Maintenance, 02/04/22 8:30:00 EDT, Ointment, [facility]/pharmacy #[id number], Partial fill upon patient request if [...] Maintenance, 10/10/21 13:07:00 EST, ECCapsule, [facility]/pharmacy #[id number], 162.56, cm, 10/10/21 12:54:00 EST, Height, 90.6, kg, 04/27/21 9:57:00 EDT, Dry Weight Start Date: 10/10/21 Status: Ordered simvastatin 20 mg oral tablet 20 mg, 1, tablet, By Mouth, Daily at bedtime, # 90 tablet, Refills 3, Tot. Refills 3, Maintenance, 01/03/22 11:37:00 EDT, Route to Pharmacy Electronically, [facility]/pharmacy #[id number], 162.56, cm, 01/03/22 11:11:00 EDT, Height, 78.4, kg, 11/16/21 22:27:00 EDT,... Start Date: 01/03/22 Stop Date: 12/29/22 Status: Ordered torsemide 20 mg oral tablet 1 tablet = 20 mg, By Mouth, Daily, PRN leg swelling, # 30 tablet, 2 Refills, Maintenance, 02/04/22 8:25:00 EDT, Tablet, [facility]/pharmacy #[id number], replaces furosemide, 162.56, cm, 02/04/22 8:19:00 EDT, Height, 78.4, kg, 11/16/21 22:27:00 EDT, Dry Weight Start Date: 02/04/22 Status: Ordered Vitamin D3 1000 intl units oral capsule 1 capsule = 1,000 International_Units, By Mouth, Daily, # 90 capsule, 2 Refills, Maintenance, 01/03/22 11:38:00 EDT, Capsule, [facility]/pharmacy #[id number], 162.56, cm, 01/03/22 11:11:00 EDT, Height, [...]
--- OUTSIDE RECORDS SUMMARY | 2023-12-29 21:04 | XMS_ITS | Continuity of Care Document ---
Author Organization [facility] ter Address [address] [place] [address]- Care Team Providers Care Crisis Intervention Specialist Name Role Phone Katina Zuniga MD Primary Care Physician [phone] [facility] Date(s): 05/11/22 - 06/20/[address] [address] Attending Physician: Nicko Rowley MD Admitting Physician: Nicko Rowley MD Referring Physician: Nicko Rowley MD Allergies, Adverse Reactions, Alerts No Known [...] tetanus/diphtheria/pertussis, acel(Tdap) 9 11/19/12 Given 1Result Comment: [facility] [phone] 2Location History: [facility] 3Result Comment: [07/22/2017] [facility] [phone] 4Result Comment: Done at [place] 5Result Comment: Done at [place] 6[facility] 7Result Comment: [06/12/2015] high [...] 11:36:00 EDT, Route to Pharmacy Electronically, [facility]/pharmacy #[id number], Partial fill upon patient requestif the prescription [...] 0 Refills, Maintenance, 02/04/22 8:30:00 EDT, Ointment, [facility]/pharmacy #[id number], Partial fill upon patient request if the [...] Refills, Maintenance, 10/10/21 13:07:00 EST, ECCapsule, [facility]/pharmacy #[id number], 162.56, cm, 10/10/21 12:54:00 EST, Height, 90.6, kg, 04/27/21 9:57:00 EDT, Dry Weight Start Date: 10/10/21 Status: Ordered simvastatin 20 mg oral tablet 20 mg, 1, tablet, By Mouth, Daily at bedtime, # 90 tablet, Refills 3, Tot. Refills 3, Maintenance, 01/03/22 11:37:00 EDT, Route to Pharmacy Electronically, [facility]/pharmacy #[id number], 162.56, cm, 01/03/22 11:11:00 EDT, Height, 78.4, kg, 11/16/21 22:27:00 EDT,... Start Date: 01/03/22 Stop Date: 12/29/22 Status: Ordered torsemide 20 mg oral tablet 1 tablet, By Mouth, Daily, PRN NEEDED FOR LEG SWELLING, # 90 tablet, 1 Refills, [facility] STORE 36502,168, cm, 04/02/22 15:54:00 EDT, Height, 74.1, kg, [...] 2 Refills, Maintenance, 01/03/22 11:38:00 EDT, Capsule, [facility]/pharmacy #[id number], 162.56, cm, 01/03/22 11:11:00 [...] Personnel Name: Katina Zuniga MD Address: Address: [address] [place] [address]
--- OUTSIDE RECORDS SUMMARY | 2023-12-29 21:04 | XMS_ITS | Continuity of Care Document ---
Author Organization [facility] Address [address] [place] [address]- Care Team Providers Care Weatherseal Technician Name Role Phone Katina Zuniga MD Primary Care Physician [facility] Date(s): 01/23/22 - 02/22/22 [facility] [address] [place], [place] [address] Allergies, Adverse Reactions, Alerts [...] 8 11/19/12 Given 1Result Comment: Done at [facility] 2Result Comment: Done at [facility] 3Location History: [facility] 4Result Comment: [07/22/2017] [facility] [phone] 5[facility] 6Result Comment: [06/12/2015] high dose 7Admin Note: VIS GIVEN 8Admin Note: vis given Medications amLODIPine 10 mg oral tablet 10 mg, 1, tablet, By Mouth, Daily, # 90 tablet, Refills 2, Tot. Refills 2, Maintenance, 01/03/22 11:39:00 EDT, Route to Pharmacy Electronically, [facility]/pharmacy #[id number], Partial fill upon patient request if the prescription is for a schedule II opioid drug... Start Date: 01/03/22 Status: Ordered aspirin 325 mg oral delayed release tablet 325 mg, 1, tablet, By Mouth, Daily, # 90 tablet, Refills 2, Tot. Refills 2, Maintenance, 01/03/22 11:36:00 EDT, [id number] fill upon patient [...] 01/08/22 15:28:00 EDT, Route to Pharmacy Electronically, [facility]/pharmacy #[id number],dose change, 162.56, cm, 01/03/22 11:11:00 EDT, Hei... Start Date: 01/08/22 Status: Ordered lanolin topical - ointment 1 application, Topically, 3 times a day, PRN as needed for dry skin, # 113 Gm, 0 Refills, Maintenance, 02/04/22 8:30:00 EDT, Ointment, [facility]/pharmacy #[id number], Partial fill upon patient request if the prescription is for a schedule II opioid drug., 1 appli... Start Date: 02/04/22 Status: Ordered metFORMIN 500 mg oral tablet, extended release 1 tablet = 500 mg, By Mouth, Daily, # 90 tablet, 1 Refills, Maintenance, 01/03/22 11:36:00 EDT, ER Tablet, [facility]/pharmacy #[id number], Partial fill upon patient request if the prescription is for a schedule II opioid drug., 162.56, cm, 01/03/22 11:11:00 EDT,... Start Date: 01/03/22 Status: Ordered nortriptyline 25 mg oral capsule 25 mg, 1, capsule, By Mouth, Daily at bedtime, # 90 capsule, Refills 2, Tot. Refills 2, Maintenance, 01/03/22 11:39:00 EDT, Route to Pharmacy Electronically, [facility]/pharmacy #[id number], Partial fill upon patient request if the prescription is for a schedule I... Start Date: 01/03/22 Status: Ordered omeprazole 20 mg oral enteric coated capsule 1 capsule = 20 mg, By Mouth, Daily, # 90 capsule, 3 Refills, Maintenance, 10/10/21 13:07:00 EST, ECCapsule, [facility]/pharmacy #[id number], 162.56, cm, 10/10/21 12:54:00 EST, Height, 90.6, kg, 04/27/21 9:57:00 EDT, Dry Weight Start Date: 10/10/21 Status: Ordered simvastatin 20 mg oral tablet 20 mg, 1, tablet, By Mouth, Daily at bedtime, # 90 tablet, Refills 3, Tot. Refills 3, Maintenance, 01/03/22 11:37:00 EDT, Route to Pharmacy Electronically, [facility]/pharmacy #[id number], 162.56, cm, 01/03/22 11:11:00 EDT, [...]
--- OUTSIDE RECORDS SUMMARY | 2023-12-29 21:04 | XMS_ITS | Continuity of Care Document ---
Author Organization [facility] Address [address] [place] [address]- Care Team Providers Care Dictating Machine Mechanic Name Role Phone Katina Zuniga MD Primary Care Physician [facility] Date[facility]s): 06/25/22 - 07/25/22 [facility] [address] [place], [place] [address] Allergies, Adverse Reactions, Alerts No Known Allergies Immunizations Given and Recorded Vaccine Date Status Refusal Reason influenza virus vaccine, inactivated 1 06/07/22 Gi xi influenza virus vaccine, inactivated 2 06/08/18 Re corded influenza virus vaccine, inactivated 3 07/22/17 Gi xi influenza virus vaccine, inactivated 09/20/16 Ryan rded influenza virus vaccine, inactivated 07/06/14 Give n SARS-CoV-2 mRNA ([id number]) vax 02/24/22 Recorded SARS-CoV-2 (COVID-19) mRNA BNT-162b2 [...] acel(Tdap) 9 11/19/12 Given 1Result Comment: [facility] [id number] 2Location History: [address] 3Result Comment: [07/22/2017] [facility] [id number] 4Result Comment: Done at [facility] 5Result Comment: Done at [facility] 6[facility] 7Result Comment: [...] Refills, Maintenance, 10/10/21 13:07:00 EST, [id number] 162.56, cm, 10/10/21 12:54:00 EST, Height, 90.6, kg, 04/27/21 9:57:00 EDT, Dry Weight Start Date: 10/10/21 Status: Ordered simvastatin 20 mg oral tablet 20 mg, 1, tablet, By Mouth, Daily at bedtime, # 90 tablet, Refills 3, Tot. Refills 3, Maintenance, 01/03/22 11:37:00 EDT, [id number], 162.56, cm, 01/03/22 11:11:00 EDT, Height, 78.4, kg, 11/16/21 22:27:00 EDT,... Start Date: 01/03/22 Stop Date: 12/29/22 Status: Ordered torsemide 20 mg oral tablet 1 tablet, By Mouth, Daily, PRN NEEDED FOR LEG SWELLING, # 90 tablet, 1 Refills, [facility] 82780,168, cm, 04/02/22 15:54:00 EDT, Height, 74.1, kg, [...] Team Personnel Name: Katina Zuniga MD Position: [facility] Primary Care Physician Member Role: PCP Address: Address: [address] [place] [id number]- Name: Mily Stein RN Position: [facility] RN Member Role: Primary Care Nurse Name: Geno Cifuentes RN Position: [facility] RN Member Role: Primary Care Nurse Name: Rosa Agustin NP Position: [facility] Associate Professional Member Role: Primary Care Nurse Address: Address: [address] [place] [address]- Name: Steve Saravia RN Position: [facility] RN Member Role: Primary Care Nurse Name: Ella Garcia RN Position: [facility] RN Member Role: Primary Care Nurse Name: Cy Benjamin DO Position: [facility] Renal MD Member Role: Lifetime Consulting Physician Address: Address: [address] [place], [place] [address] [place] [address]- Name: Migel Lopez RN Position: [facility] RN Member Role: Primary Care Nurse Name: Stacia Hernandez RN Position: [facility] RN Member Role: Primary Care Nurse Name: Lauren Lund RN Position: [facility] ED RN W/OE and Tasks Member Role: Primary Care Nurse Name: Marisol Grady RN Position: [facility] RN Member Role: Primary Care Nurse Name: Corinna Orozco RN Position: [facility] RN Member Role: Primary Care Nurse Name: Flory Fernandez RN Position: [facility] RN Member Role: Primary Care Nurse Name: Paula Foss RN Position: [facility] RN Member Role: Primary Care Nurse Address: Address: [address] [place] [address]- [place] Name: Arnol Travis RN Position: S RN Member Role: Primary Care Nurse Name: Nidia De Oliveira Position: S RN Member Role: Primary Care Nurse Care Team Related Persons Name: RAFAELA ANDREWS Address: home [address] [place] [address] Name: VALENTINA ARNOLD Address: home [address] [address]
--- OUTSIDE RECORDS SUMMARY | 2023-12-29 21:04 | XMS_ITS | Continuity of Care Document ---
Author Organization [facility] Address [address] [place] [address]- Care Team Providers Care Superintendent Warehouse Name Role Phone Katina Zuniga MD Primary Care Physician [facility] Date[facility]s): 09/13/19 - 09/20/[address] [address]- [facility] Attending Physician: Yandel Galindo MD Allergies, Adverse Reactions, Alerts Substance Reaction [...] [facility] [address] 2Result Comment: [07/22/2017] [facility] [id number] 3[facility] History: [facility] 4Result Comment: [06/12/2015] high [...] 12/01/18 15:56:18 EDT, Route to Pharmacy Electronically, [id number], [facility]/pharmacy #[id number] Start Date: 12/01/18 Stop Date: 11/26/19 Status: Ordered Calcium Carbonate By Mouth, 1000mg, 0 Refills, Maintenance, 01/12/18 13:45:02 EDT Start Date: 01/12/18 Status: Ordered Fosamax 70 mg oral tablet 1 tablet = 70 mg, By Mouth, Every week, # 4 tablet, 11 Refills, Maintenance, 09/20/19 16:46:00 EST,Tablet, [facility]/pharmacy #[id number], 160, cm, 03/26/19 13:55:00 EDT, [...] 06/30/19 14:03:36 EST, Route to Pharmacy Electronically, [id number], [facility]/pharmacy #[id number] Start Date: 06/30/19 Stop [...] 06/30/19 14:01:33 EST, Route to Pharmacy Electronically, [id number], [facility]/pharmacy #[id number] Start Date: 06/30/19 Stop [...] Right breast cancer, T1b N0, ER positive, [place] positive, HER-2/mickey negative, diagnosed in 2008. Left [...]
--- OUTSIDE RECORDS SUMMARY | 2023-12-29 21:04 | XMS_ITS | Continuity of Care Document ---
Author Organization [facility] Address [address] [place] [address]- Care Team Providers Care Customer Insight Analyst Name Role Phone Katina Zuniga MD Primary Care Physician Encounter [facility] Date(s): 12/27/20 - 01/26/21 [facility] [address] [place] [address] Attending Physician: Merlyn Murillo Admitting Physician: AdmMerlyn [...] 8 11/19/12 Given 1Result Comment: Done at [facility] 2Result Comment: Done at [facility] 3Location History: [facility] 4Result Comment: [07/22/2017] [facility] [id number] 5[facility] 6Result Comment: [06/12/2015] high [...] 15:42:00 EDT, Route to Pharmacy Electronically, [facility]/pharmacy #[id number], 162.56, cm, 12/15/20 [...] tablet, 2 Refills, Maintenance, 09/05/20 14:33:00 EST, [facility]/pharmacy #[id number], 160, cm, 09/05/20 14:19:00 EST, Height, 94.3, kg, 03/02/19 15:45:00 EDT, Dry Weight Start Date: 09/05/20 Status: Ordered metFORMIN 1000 mg oral tablet 1 tablet = 1,000 mg, By Mouth, Daily, # 90 tablet, 3 Refills, Maintenance, 12/15/20 15:41:00 EDT, Tablet, [facility]/pharmacy #[id number], 162.56, cm, 12/15/20 15:05:00 EDT, Height, 91, kg, 12/13/20 6:45:00 EDT, Dry Weight Start Date: 12/15/20 Status: Ordered nortriptyline 50 mg oral capsule 1, capsule, By Mouth, Daily at bedtime, # 90 capsule, Refills 1, Tot. Refills 0, Maintenance, 09/04/20 15:55:00 EST, Route to Pharmacy Electronically, [facility] [id number], 160, cm, 06/27/20 14:03:00 EST,Height, 94.3, kg, 03/02/19 15:45:00 EDT, Dry Weight Start Date: 09/04/20 Status: Ordered omeprazole 20 mg oral enteric coated capsule 1 capsule = 20 mg, By Mouth, Daily, # 90 capsule, 3 Refills, Maintenance, 09/05/20 14:34:00 EST, ECCapsule, [facility]/pharmacy #[id number], 160, cm, 09/05/20 14:19:00 EST, Height, 94.3, kg, 03/02/19 15:45:00 EDT, Dry Weight Start Date: 09/05/20 Status: Ordered simvastatin 20 mg oral tablet 20 mg, 1, tablet, By Mouth, Daily at bedtime, # 90 tablet, Refills 1, Tot. Refills 1, Maintenance, 12/11/20 15:09:00 EDT, Route to Pharmacy Electronically, [facility]/pharmacy #[id number], 162.56, cm, 12/05/20 [...]
--- OUTSIDE RECORDS SUMMARY | 2023-12-29 21:04 | XMS_ITS | Continuity of Care Document ---
Author Organization [facility] Address [address] [place] [address]- Care Team Providers Care Woodworking Shop Laborer Name Role Phone Nadia GUNDERSON, Katina Rosado Primary Care Physician [place] [facility] [place]21 - 12/20/21 [facility] [address] [facility] [place] [address]- Attending Physician: Angelica Maradiaga NP Admitting Physician: Angelica Maradiaga NP Referring Physician: Not on Staff, Referring MD [...] 8 11/19/12 Given 1Result Comment: Done at [facility] 2Result Comment: Done at [facility] 3Location History: [address] [facility] 4Result Comment: [07/22/2017] [facility] [id number] 5[facility]: [facility] 6Result Comment: [06/12/2015] high [...] EDT, Route to Pharmacy Electronically, [facility]/pharmacy #[id number], Partial fill upon patient requestif the prescription [...]
--- OUTSIDE RECORDS SUMMARY | 2023-12-29 21:04 | XMS_ITS | Continuity of Care Document ---
Author Organization [facility] Address Unknown Care Team Providers Care Svp Name Role Phone Katina Zuniga MD Primary Care Physician [place] [facility] [place] 05/09/21 - 06/08/21 [facility] Attending Physician: Merlyn Murillo Admitting Physician: Melryn Murillo Referring Physician: Melryn Murillo Allergies, Adverse Reactions, Alerts Substance Reaction [...] 8 11/19/12 Given 1Result Comment: Done at [facility] 2Result Comment: Done at [facility] 3Location History: [address] 4Result Comment: [07/22/2017] [facility] [id number] 5[facility] History: [facility] 6Result Comment: [06/12/2015] high dose 7Admin Note: VIS GIVEN 8Admin Note: vis given Medications aspirin 325 mg oral delayed release tablet 325 mg, 1, tablet, By Mouth, Daily, # 30 tablet, Refills 0, Tot. Refills 0, Maintenance, 04/27/21 16:38:00 EDT, Route to Pharmacy Electronically, [facility]/pharmacy #[id number], Partial fill upon patient requestif the [...] 12/15/20 15:42:00 EDT, [id number] 162.56, cm, 12/15/20 15:05:00 EDT,Height, 91, [...] 14:36:00 EDT, Route to Pharmacy Electronically, [facility]/pharmacy #[id number], 162.56, cm, 03/14/21 14:12:00 EDT, Height, 89.8, kg, 03/14/21 14:12... Start Date: 03/14/21 Stop Date: 05/09/21 Status: Ordered lithium 300 mg oral tablet 3 tablet = 900 mg, By Mouth, Daily at bedtime, # 270 tablet, 2 Refills, Maintenance, 09/05/20 14:33:00 EST, [facility]/pharmacy #[id number], 160, cm, 09/05/20 14:19:00 EST, Height, 94.3, kg, 03/02/19 15:45:00 EDT, Dry Weight Start Date: 09/05/20 Status: Ordered metFORMIN 1000 mg oral tablet 1 tablet = 1,000 mg, By Mouth, Daily, # 90 tablet, 3 Refills, Maintenance, 12/15/20 15:41:00 EDT, Tablet, [facility]/pharmacy #[id number], 162.56, cm, 12/15/20 15:05:00 EDT, Height, 91, kg, 12/13/20 6:45:00 EDT, Dry Weight Start Date: 12/15/20 Status: Ordered nortriptyline 50 mg oral capsule 1, capsule, By Mouth, Daily at bedtime, # 90 capsule, Refills 3, Tot. Refills 3, Maintenance, 03/14/21 14:34:00 EDT, Route to Pharmacy Electronically, [facility]/pharmacy #[id number], 162.56, cm, 03/14/21 14:12:00 EDT, Height, 89.8, kg, 03/14/21 14:12:00 EDT, Dry... Start Date: 03/14/21 Status: Ordered omeprazole 20 mg oral enteric coated capsule 1 capsule = 20 mg, By Mouth, Daily, # 90 capsule, 3 Refills, Maintenance, 09/05/20 14:34:00 EST, ECCapsule, [facility]/pharmacy #[id number], 160, cm, 09/05/20 14:19:00 EST, Height, 94.3, kg, 03/02/19 15:45:00 EDT, Dry Weight Start Date: 09/05/20 Status: Ordered simvastatin 20 mg oral tablet 20 mg, 1, tablet, By Mouth, Daily at bedtime, # 90 tablet, Refills 3, Tot. Refills 3, Maintenance, 03/14/21 14:34:00 EDT, Route to Pharmacy Electronically, [facility]/pharmacy #[id number], 162.56, cm, 03/14/21 14:12:00 EDT, Height, [...]
--- OUTSIDE RECORDS SUMMARY | 2023-12-29 21:04 | XMS_ITS | Continuity of Care Document ---
Author Organization [facility] ter Address [address] [place] [address]- Care Team Providers Care Drilling Rig Operator Name Role Phone Katina Zuniga MD Primary Care Physician Encounter [facility] Date(s): 04/27/21 - 04/27/[address] [address]- Encounter Diagnosis TIA (transient ischemic attack)(Final) - 04/27/21 Discharge Disposition: A-D/C Home Attending Physician: Mily Martínez DO Admitting Physician: Mily Martínez DO Referring Physician: Not on Staff, Referring MD Allergies, Adverse Reactions, Alerts Substance Reaction [...] 11/19/12 Given 1Result Comment: Done at [facility] 2Result Comment: Done at [facility] 3Location History: [facility] 4Result Comment: [07/22/2017] [facility] [id number] 5[facility] 6Result Comment: [06/12/2015] [facility] [...] [id number] 162.56, cm, 12/15/20 15:05:00 EDT,Height, [...] Status: Ordered FREESTYLE KARSTEN TESTING MONITOR FREESTYLE KARSTNE TESTING MONITOR, See Instructions, # 1 Unknown, [...] tablet, 2 Refills, Maintenance, 09/05/20 14:33:00 EST, [facility]/pharmacy #[id number], 160, cm, 09/05/20 14:19:00 EST, Height, 94.3, kg, 03/02/19 15:45:00 EDT, Dry Weight Start Date: 09/05/20 Status: Ordered metFORMIN 1000 mg oral tablet 1 tablet = 1,000 mg, By Mouth, Daily, # 90 tablet, 3 Refills, Maintenance, 12/15/20 15:41:00 EDT, Tablet, [facility]/pharmacy #[id number], 162.56, cm, 12/15/20 15:05:00 EDT, Height, 91, kg, 12/13/20 6:45:00 EDT, Dry Weight Start Date: 12/15/20 Status: Ordered nortriptyline 50 mg oral capsule 1, capsule, By Mouth, Daily at bedtime, # 90 capsule, Refills 3, Tot. Refills 3, Maintenance, 03/14/21 14:34:00 EDT, Route to Pharmacy Electronically, [id number], 162.56, cm, 03/14/21 14:12:00 EDT, Height, 89.8, kg, 03/14/21 14:12:00 EDT, Dry... Start Date: 03/14/21 Status: Ordered omeprazole 20 mg oral enteric coated capsule 1 capsule = 20 mg, By Mouth, Daily, # 90 capsule, 3 Refills, Maintenance, 09/05/20 14:34:00 EST, ECCapsule, [id number], 160, cm, 09/05/20 14:19:00 EST, Height, 94.3, kg, 03/02/19 15:45:00 EDT, Dry Weight Start Date: 09/05/20 Status: Ordered simvastatin 20 mg oral tablet 20 mg, 1, tablet, By Mouth, Daily at bedtime, # 90 tablet, Refills 3, Tot. Refills 3, Maintenance, 03/14/21 14:34:00 EDT, Route to Pharmacy Electronically, [id number], 162.56, cm, 03/14/21 14:12:00 EDT, [...] Right breast cancer, T1b N0, ER positive, [place] positive, HER-2/mickey negative, diagnosed in 2008. 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) 09/25/08 Active Pure hypercholesterolemia(Confirmed) Active Urinary urgency(Confirmed) Active Wheezing(Confirmed) Active Vital Signs Most recent to oldest [Reference Range]: 1 2 3 Weight 90.6 kg (04/27/21 9:57 AM) 90.6 kg (04/27/21 9:47 AM) Oxygen Saturation [94-100 %] 95 % (04/27/21 5:23 PM) 93 % *L* (04/27/21 12:03 PM) 94 % (04/27/21 9:47 AM) Pulse Rate [55-90 bpm] 62 bpm (04/27/21 5:23 PM) 60 bpm (04/27/21 12:03 PM) 68 bpm (04/27/21 9:47 AM) Blood Pressure [90-138/55-84 mm Hg] 148/55mm Hg *H* (04/27/21 5:23 PM) 133/66mm Hg (04/27/21 12:03 PM) 147/66mm Hg *H* (04/27/21 9:47 AM) Respiratory Rate [16-30 br/min] 17 br/min (04/27/21 5:23 PM) 18 br/min (04/27/21 12:03 PM) 16 br/min (04/27/21 9:47 AM) Temperature [96.8-100.4 DegF] 98.2 DegF (04/27/21 5:23 PM) 98.0 DegF (04/27/21 12:03 PM) 98.4 DegF (04/27/21 9:47 AM) Mode of Delivery (Oxygen) Room air (04/27/21 5:23 PM) Room air (04/27/21 12:03 PM) Room air (04/27/21 9:47 AM) Blood pressure sites Arm, left (04/27/21 5:23 PM) Arm, left (04/27/21 12:03 PM) Arm, left (04/27/21 9:47 AM) Temperature Route Oral (04/27/21 5:23 PM) Oral (04/27/21 12:03 PM) Oral (04/27/21 9:47 AM) Dry Weight 90.6 kg (04/27/21 9:57 AM) 90.6 kg (04/27/21 9:47 AM) Weight Obtained Via Standing scale (04/27/21 9:47 AM) Social History Social History Type Response Tobacco Other: 1 pack per da y for 40 years. Sex
--- OUTSIDE RECORDS SUMMARY | 2023-12-29 21:04 | XMS_ITS | Continuity of Care Document ---
Author Organization [facility] Address [address] [place] [address]- Care Team Providers Care It Business Process Architect Name Role Phone Katina Zuniga MD Primary Care Physician [phone] [facility]counter [facility] Date[facility]s): 01/25/22 - 02/24/22 [facility] [address] [place], [place] [address] Allergies, Adverse Reactions, Alerts No Known Allergies [...] [facility] 3Location History: [facility] 4Result Comment: [07/22/2017] [facility] [id number] 5[facility] 6Result Comment: [06/12/2015] high dose 7Admin Note: VIS GIVEN 8Admin Note: vis given Medications amLODIPine 10 mg oral tablet 10 mg, 1, tablet, By Mouth, Daily, # 90 tablet, Refills 2, Tot. Refills 2, Maintenance, 01/03/22 11:39:00 EDT, Route to Pharmacy Electronically, [facility]/pharmacy #[id number], Partial fill upon patient request if the prescription is for a schedule II opioid drug... Start Date: 01/03/22 Status: Ordered aspirin 325 mg oral delayed release tablet 325 mg, 1, tablet, By Mouth, Daily, # 90 tablet, Refills 2, Tot. Refills 2, Maintenance, 01/03/22 11:36:00 EDT, [id number] Partial fill upon patient requestif [...] 15:28:00 EDT, Route to Pharmacy Electronically, [facility]/pharmacy #[id number],dose change, 162.56, cm, 01/03/22 11:11:00 EDT, Hei... Start Date: 01/08/22 Status: Ordered lanolin topical - ointment 1 application, Topically, 3 times a day, PRN as needed for dry skin, # 113 Gm, 0 Refills, Maintenance, 02/04/22 8:30:00 EDT, Ointment, [facility]/pharmacy #[id number], Partial fill upon patient request if the prescription is for a schedule II opioid drug., 1 appli... Start Date: 02/04/22 Status: Ordered metFORMIN 500 mg oral tablet, extended release 1 tablet = 500 mg, By Mouth, Daily, # 90 tablet, 1 Refills, Maintenance, 01/03/22 11:36:00 EDT, ER Tablet, [facility]/pharmacy #[id number], Partial fill upon patient request if the prescription is for a schedule II opioid drug., 162.56, cm, 01/03/22 11:11:00 EDT,... Start Date: 01/03/22 Status: Ordered nortriptyline 25 mg oral capsule 25 mg, 1, capsule, By Mouth, Daily at bedtime, # 90 capsule, Refills 2, Tot. Refills 2, Maintenance, 01/03/22 11:39:00 EDT, Route to Pharmacy Electronically, [facility]/pharmacy #[id number], Partial fill upon patient request if the prescription is for a schedule I... Start Date: 01/03/22 Status: Ordered omeprazole 20 mg oral enteric coated capsule 1 capsule = 20 mg, By Mouth, Daily, # 90 capsule, 3 Refills, Maintenance, 10/10/21 13:07:00 EST, ECCapsule, [facility]/pharmacy #[id number], 162.56, cm, 10/10/21 12:54:00 EST, Height, 90.6, kg, 04/27/21 9:57:00 EDT, Dry Weight Start Date: 10/10/21 Status: Ordered simvastatin 20 mg oral tablet 20 mg, 1, tablet, By Mouth, Daily at bedtime, # 90 tablet, Refills 3, Tot. Refills 3, Maintenance, 01/03/22 11:37:00 EDT, Route to Pharmacy Electronically, [facility]/pharmacy #[id number], 162.56, cm, 01/03/22 11:11:00 [...]
--- OUTSIDE RECORDS SUMMARY | 2023-12-29 21:04 | XMS_ITS | Continuity of Care Document ---
Author Organization [facility] Address [address] [place] [address]- Care Team Providers Care Program Counselor Name Role Phone Sandro GUNDERSON, Jesusita Solis Primary Care Physician Encounter [facility] Date(s): 11/11/22 - 01/19/23 [facility] [address] [place] [address]- Attending Physician: Angelica Maradiaga NP Admitting Physician: Angelica Maradiaga NP Referring Physician: Katina Zuniga MD Allergies, Adverse Reactions, Alerts No Known Allergies Immunizations Given and Recorded Vaccine Date Status Refusal Reason influenza virus vaccine, inactivated 1 06/07/22 Gi xi influenza virus vaccine, inactivated 2 06/08/18 Re corded influenza virus vaccine, inactivated 3 07/22/17 Gi xi influenza virus vaccine, inactivated 09/20/16 Ryan rded influenza virus vaccine, inactivated 07/06/14 Give n SARS-CoV-2 mRNA ([id number]) vax 02/24/22 Recorded SARS-CoV-2 (COVID-19) mRNA BNT-162b2 [...] acel(Tdap) 9 11/19/12 Given 1Result Comment: [facility] [id number] 2Location History: [facility] 3Result Comment: [07/22/2017] [facility] [id number] 4Result Comment: Done at [facility] 5Result Comment: Done at [facility] 7Result Comment: [06/12/2015] high dose 8Admin Note: VIS GIVEN 9Admin Note: vis given Medications acetaminophen 650 mg oral tablet, extended release 2 tablet, By Mouth, Daily in AM, PRN NEEDED FOR MODERATE PAIN, # 100 tablet, 0 Refills, Maintenance, 11/13/22 11:59:00 EDT, [facility] STORE 19592, 161, cm, 08/01/22 11:03:00 EST, Height, 73, [...] 08/29/22 14:10:00 EST, Route to Pharmacy Electronically, [facility]/pharmacy #[id number], Partial fill upon patient request if the [...] 08/29/22 9:05:00 EST, Route to Pharmacy Electronically, [facility]/pharmacy #[id number], Partial fill upon patient request ifthe prescription [...] LEG SWELLING, # 90 tablet, 1 Refills, [facility],168, cm, 04/02/22 15:54:00 EDT, Height, 74.1, kg, [...] Team Personnel Name: Mily Stein RN Position: S RN Member Role: Primary Care Nurse Name: Geno Cifuentes RN Position: S RN Member Role: Primary Care Nurse Name: Rosa Agustin NP Position: S Associate Professional Member Role: Primary Care Nurse Address: Address: [address] [place] [address]- Name: Jesusita Jo MD Position: Reference Physician Member Role: PCP Address: Address: [address] [place] [address]- Name: Steve Saravia RN Position: S RN Member Role: Primary Care Nurse Name: Ella Garcia RN Position: [facility] RN Member Role: Primary Care Nurse Name: Cy Benjamin DO Position: [facility] Renal MD Member Role: Lifetime Consulting Physician Address: Address: [address] [place] [address] [address] [facility] [place] [address]- Name: Lauren Lund RN Position: [facility] ED RN W/OE and Tasks Member Role: Primary Care Nurse Name: Marisol Grady RN Position: [facility] RN Member Role: Primary Care Nurse Name: Corinna Orozco RN Position: [facility] RN Member Role: Primary Care Nurse Name: Flory Fernandez RN Position: [facility] RN Member Role: Primary Care Nurse Name: Paula Foss RN Position: [facility] RN Member Role: Primary Care Nurse Address: Address: [address] [place] [address]- Name: Nidia De Oliveira RN Position: [facility] RN Member Role: Primary Care Nurse Care Team Related Persons Name: RAFAELA ANDREWS Address: home [address] [place] [address] Name: VALENTINA ARNOLD Address: home [address] [facility] [address] [place] [address]
--- OUTSIDE RECORDS SUMMARY | 2023-12-29 21:04 | XMS_ITS | Continuity of Care Document ---
Author Organization [facility] Address [address] [place] [address]- Care Team Providers Care Turkish Rubber Name Role Phone Katina Zuniga MD Primary Care Physician [phone] Encounter [facility] Date(s): 09/30/19 - 01/28/20 [facility] [address] [place] [address]- [facility] Attending Physician: Angelica Maradiaga NP Admitting Physician: [...] [facility] [address] 2Result Comment: [07/22/2017] [facility] [id number] 3[facility] 4Result Comment: [06/12/2015] high [...] 01/31/20 12:54:00 EDT, 01/26/20 12:54:00 EDT, Capsule, [facility]/pharmacy #[id number], 160, cm, 01/21/20 10:58:00 EDT, Height, 94.3, kg, 03/02/19 15:45:00 EDT, Dry Weight Start Date: 01/26/20 Stop Date: 01/31/20 Status: Ordered Fosamax 70 mg oral tablet 1 tablet = 70 mg, By Mouth, Every week, # 4 tablet, 11 Refills, Maintenance, 09/20/19 16:46:00 EST,Tablet, [facility]/pharmacy #[id number], 160, cm, 03/26/19 13:55:00 EDT, [...] CHECK BG DAILY FOR DX: E11.9 FREETYLE KASRTEN SENSOR, 10/27/19 13:58:00 EST, LET PTKNOW IF [...] 11/30/19 14:00:00 EDT, [facility] to [facility]ically, [facility] 06/30/19 14:01:33 EST, Route to Pharmacy Electronically, [id number], [facility]/pharmacy #[id number] Start [...]
--- OUTSIDE RECORDS SUMMARY | 2023-12-29 21:04 | XMS_ITS | Continuity of Care Document ---
Author Organization [facility] Address [address] [place] [address]- Care Team Providers Care Lace Tearing Supervisor Name Role Phone Sandro GUNDERSON, Jesusita Solis Primary Care Physician Encounter [facility] Date(s): 09/20/22 - 01/18/23 [facility] [address] [place] [address]- Attending Physician: Carina Bridges MD Admitting Physician: [...] vaccine, inactivated 07/06/14 Give n SARS-CoV-2 mRNA (opxsklh-zlnd-xxeam) vax 02/24/22 Recorded SARS-CoV-2 (COVID-19) mRNA BNT-162b2 [...] tetanus/diphtheria/pertussis, acel(Tdap) 9 11/19/12 Given 1Result Comment: [facility] [phone] 2Location History: [facility] 3Result Comment: [07/22/2017] [facility] [id number] 4Result Comment: Done at [facility] 5Result Comment: Done at [facility] 6[facility] 7Result Comment: [06/12/2015] high dose 8Admin Note: VIS GIVEN 9Admin Note: vis given Medications acetaminophen 650 mg oral tablet, extended release 2 tablet, By Mouth, Daily in AM, PRN NEEDED FOR MODERATE PAIN, # 100 tablet, 0 Refills, Maintenance, 11/13/22 11:59:00 EDT, [facility] STORE 41331, 161, cm, 08/01/22 11:03:00 EST, Height, 73, [...] 14:10:00 EST, Route to Pharmacy Electronically, [facility]/pharmacy #[id number], Partial fill upon patient request if the [...] 9:05:00 EST, Route to Pharmacy Electronically, [facility]/pharmacy #[id number], Partial fill upon patient request ifthe prescription [...] Maintenance, 10/10/21 13:07:00 EST, ECCapsule, [facility]/pharmacy #[id number], 162.56, cm, 10/10/21 12:54:00 EST, Height, [...] 11:37:00 EDT, Route to Pharmacy Electronically, [facility]/pharmacy #[id number], 162.56, cm, 01/03/22 11:11:00 EDT, Height, 78.4, kg, 11/16/21 22:27:00 EDT,... Start Date: 01/03/22 Stop Date: 12/29/22 Status: Ordered torsemide 20 mg oral tablet 1 tablet, By Mouth, Daily, PRN NEEDED FOR LEG SWELLING, # 90 tablet, 1 Refills, [facility] STORE 57669,168, cm, 04/02/22 15:54:00 EDT, Height, 74.1, kg, [...] Team Personnel Name: Mily Stein RN Position: [facility] RN Member Role: Primary Care Nurse Name: Geno Cifuentes RN Position: S RN Member Role: Primary Care Nurse Name: Rosa Agustin NP Position: S Associate Professional Member Role: Primary Care Nurse Address: Address: [address] [place] [address]- Name: Jesusita Jo MD Position: Reference Physician Member Role: PCP Address: Address: [address] [place] [address]- Name: Steve Saravia RN Position: S RN Member Role: Primary Care Nurse Name: Ella Garcia RN Position: [facility] RN Member Role: Primary Care Nurse Name: Cy Benjamin DO Position: [facility] Renal MD Member Role: Lifetime Consulting Physician Address: Address: [address] [place] [address] [address] [facility] [place] [place] [address]- Name: Lauren Lund RN Position: [facility] ED RN W/OE and Tasks Member Role: Primary Care Nurse Name: Marisol Grady RN Position: [facility] RN Member Role: Primary Care Nurse Name: Corinna Orozco RN Position: [facility] RN Member Role: Primary Care Nurse Name: Flory Fernandez RN Position: [facility] RN Member Role: Primary Care Nurse Name: Paula Foss RN Position: [facility] RN Member Role: Primary Care Nurse Address: Address: [address] [place] [address]- Name: Nidia De Oliveira RN Position: [facility] RN Member Role: Primary Care Nurse Care Team Related Persons Name: RAFAELA ANDREWS Address: home [address] [place] [address] Name: VALENTINA ARNOLD Address: home [address] [facility] [address] [place] [address]
--- OUTSIDE RECORDS SUMMARY | 2023-12-29 21:04 | XMS_ITS | Continuity of Care Document ---
Author Organization [facility] Address [address] [place] [address]- Care Team Providers Care Visitor Services Technician Name Role Phone Katina Zuniga MD Primary Care Physician Encounter [facility] Date(s): 01/11/22 - 02/10/22 [facility] [address] [place], [place] [address] Allergies, Adverse Reactions, Alerts No [...] 8 11/19/12 Given 1Result Comment: Done at [facility] 2Result Comment: Done at [facility] 3Location History: [facility] 4Result Comment: [07/22/2017] [facility] [id number] 5[facility] 6Result Comment: [06/12/2015] high dose 7Admin Note: VIS GIVEN 8Admin Note: vis given Medications amLODIPine 10 mg oral tablet 10 mg, 1, tablet, By Mouth, Daily, # 90 tablet, Refills 2, Tot. Refills 2, Maintenance, 01/03/22 11:39:00 EDT, Route to Pharmacy Electronically, [facility]/pharmacy #[id number], Partial fill upon patient request if the prescription is for a schedule II opioid drug... Start Date: 01/03/22 Status: Ordered aspirin 325 mg oral delayed release tablet 325 mg, 1, tablet, By Mouth, Daily, # 90 tablet, Refills 2, Tot. Refills 2, Maintenance, 01/03/22 11:36:00 EDT, [id number], Partial fill upon patient requestif the [...] 01/08/22 15:28:00 EDT, Route to Pharmacy Electronically, [facility]/pharmacy #[id number],dose change, 162.56, cm, 01/03/22 11:11:00 EDT, Hei... Start Date: 01/08/22 Status: Ordered lanolin topical - ointment 1 application, Topically, 3 times a day, PRN as needed for dry skin, # 113 Gm, 0 Refills, Maintenance, 02/04/22 8:30:00 EDT, Ointment, [facility]/pharmacy #[id number], Partial fill upon patient request if the prescription is for a schedule II opioid drug., 1 appli... Start Date: 02/04/22 Status: Ordered metFORMIN 500 mg oral tablet, extended release 1 tablet = 500 mg, By Mouth, Daily, # 90 tablet, 1 Refills, Maintenance, 01/03/22 11:36:00 EDT, ER Tablet, [facility]/pharmacy #[id number], Partial fill upon patient request if the prescription is for a schedule II opioid drug., 162.56, cm, 01/03/22 11:11:00 EDT,... Start Date: 01/03/22 Status: Ordered nortriptyline 25 mg oral capsule 25 mg, 1, capsule, By Mouth, Daily at bedtime, # 90 capsule, Refills 2, Tot. Refills 2, Maintenance, 01/03/22 11:39:00 EDT, Route to Pharmacy Electronically, [facility]/pharmacy #[id number], Partial fill upon patient [...]
--- OUTSIDE RECORDS SUMMARY | 2023-12-29 21:04 | XMS_ITS | Continuity of Care Document ---
Author Organization [facility] Address [address] [place] [address]- Care Team Providers Care Switchboard Operator Supervisor Name Role Phone Naida GUNDERSON, Katina Rosado Primary Care Physician Encounter [facility] Date(s): 09/18/21 - 10/18/21 [facility] [address] [place] [address]- Allergies, Adverse Reactions, Alerts No Known Allergies [...] 11/19/12 Given 1Result Comment: Done at [facility] 2Result Comment: Done at [facility] 3Location History: [facility] 4Result Comment: [07/22/2017] [facility] [id number] 5[facility] 6Result Comment: [06/12/2015] high dose 7Admin Note: VIS GIVEN 8Admin Note: vis given Medications aspirin 325 mg oral delayed release tablet 325 mg, 1, tablet, By Mouth, Daily, # 30 tablet, Refills 0, Tot. Refills 0, Maintenance, 04/27/21 16:38:00 EDT, Route to Pharmacy Electronically, [facility]/pharmacy #[id number], Partial fill upon patient requestif the prescription is for a schedule II opioid kirit... Start Date: 04/27/21 Status: Ordered aspirin 325 mg oral delayed release tablet 325 mg, 1, tablet, By Mouth, Daily, # 90 tablet, Refills 3, Tot. Refills 3, Maintenance, 10/10/21 13:09:00 EST, [id number] Partial fill upon patient requestif the prescription is for a schedule II opioid kirit... Start Date: 10/10/21 Status: Ordered atenolol 25 mg oral tablet 25 mg, 1, tablet, By Mouth, Daily, # 90 tablet, Refills 3, Tot. Refills 3, Maintenance, 12/10/21 15:42:00 EDT, Route to Pharmacy Electronically, [facility]/pharmacy #[id number], 162.56, cm, 10/10/21 12:54:00 EST,Height, [...] 03/14/21 14:36:00 EDT, Route to Pharmacy Electronically, [facility]/pharmacy #[id number], 162.56, cm, 03/14/21 14:12:00 EDT, Height, 89.8, kg, 03/14/21 14:12... Start Date: 03/14/21 Stop Date: 05/09/21 Status: Ordered levocetirizine 5 mg oral tablet 1 tablet, By Mouth, Daily in PM, # 30 tablet, 10 Refills, [facility] STORE 02648, 30, TAKE 1 TABLET BY MOUTH EVERY EVENING, 162.56, cm, 10/10/21 13:15:00 EST, Height, 90.6, kg, 04/27/21 9:57:00 EDT, Dry Weight Start Date: 10/16/21 Status: Ordered lithium 300 mg oral tablet 3 tablet = 900 mg, By Mouth, Daily at bedtime, # 270 tablet, 1 Refills, Maintenance, 09/04/21 17:14:00 EST, [facility]/pharmacy #[id number], 162.56, cm, 06/29/21 14:06:00 EDT, Height, 90.6, kg, 04/27/21 9:57:00 EDT, Dry Weight Start Date: 09/04/21 Status: Ordered metFORMIN 1000 mg oral tablet 1 tablet = 1,000 mg, By Mouth, Daily, # 90 tablet, 1 Refills, Maintenance, 09/21/21 9:52:00 EST, Tablet, [facility]/pharmacy #[id number], 162.56, cm, 09/19/21 13:07:00 EST, Height, 90.6, kg, 04/27/21 9:57:00 EDT,Dry Weight Start Date: 09/21/21 Status: Ordered nortriptyline 50 mg oral capsule 1, capsule, By Mouth, Daily at bedtime, # 90 capsule, Refills 1, Tot. Refills 1, Maintenance, 09/04/21 13:33:00 EST, Route to Pharmacy Electronically, [facility]/pharmacy #[id number], 162.56, cm, 06/29/21 14:06:00 [...] 03/14/21 14:34:00 EDT, [facility] [...]
--- OUTSIDE RECORDS SUMMARY | 2023-12-29 21:04 | XMS_ITS | Continuity of Care Document ---
Author Organization [facility] Address [address] [place] [address]- Care Team Providers Care Deli Department Manager Name Role Phone Katina Zuniga MD [id number] [address] [place] [address]- Encounter Diagnosis TIA (transient ischemic attack)(Discharge Diagnosis) - 06/29/21 Hypertension(Discharge Diagnosis) - 06/29/21 Bipolar disorder(Discharge Diagnosis) - 06/29/21 Diabetes(Discharge Diagnosis) - 06/29/21 Tremors of nervous system(Discharge Diagnosis) - 06/29/21 Attending Physician: Katina Zuniga MD Allergies, Adverse [...] at [facility] 3Location History: [facility] 4Result Comment: [07/22/2017] [facility] [id number] 5[facility] 6Result Comment: [06/12/2015] high [...] prescription is for a schedule II opioid ruben. Start Date: 04/27/21 Status: Ordered aspirin 81 [...] 12/15/20 15:42:00 EDT, [id number] 162.56, cm, 12/15/20 15:05:00 EDT,Height, 91, kg, 12/13/20 6:45:00 EDT, Dry Weight Start Date: 12/15/20 Stop Date: 12/10/21 Status: Ordered freestyle karsten sensors 14 day freestyle karsetn sensors 14 day, See Instructions, # 30 [...] to Pharmacy Electronically, [facility]/pharmacy #[id number], 162.56, cm, 03/14/21 14:12:00 EDT, Height, 89.8, kg, 03/14/21 14:12... Start Date: 03/14/21 Stop Date: 05/09/21 Status: Ordered lithium 300 mg oral tablet 3 tablet = 900 mg, By Mouth, Daily at bedtime, # 270 tablet, 2 Refills, Maintenance, 09/05/20 14:33:00 EST, [facility]/pharmacy #[id number], 160, cm, 09/05/20 14:19:00 EST, Height, 94.3, kg, 03/02/19 15:45:00 EDT, Dry Weight Start Date: 09/05/20 Status: Ordered metFORMIN 1000 mg oral tablet 1 tablet = 1,000 mg, By Mouth, Daily, # 90 tablet, 3 Refills, Maintenance, 12/15/20 15:41:00 EDT, Tablet, [facility]/pharmacy #[id number], 162.56, cm, 12/15/20 15:05:00 EDT, Height, 91, kg, 12/13/20 6:45:00 EDT, Dry Weight Start Date: 12/15/20 Status: Ordered nortriptyline 50 mg oral capsule 1, capsule, By Mouth, Daily at bedtime, # 90 capsule, Refills 3, Tot. Refills 3, Maintenance, 03/14/21 14:34:00 EDT, Route to Pharmacy Electronically, [facility]/pharmacy #[id number], 162.56, cm, 03/14/21 14:12:00 EDT, Height, 89.8, kg, 03/14/21 14:12:00 EDT, Dry... Start Date: 03/14/21 Status: Ordered omeprazole 20 mg oral enteric coated capsule 1 capsule = 20 mg, By Mouth, Daily, # 90 capsule, 3 Refills, Maintenance, 09/05/20 14:34:00 EST, ECCapsule, [facility]/pharmacy #[id number], 160, cm, 09/05/20 14:19:00 EST, Height, 94.3, kg, 03/02/19 15:45:00 EDT, Dry Weight Start Date: 09/05/20 Status: Ordered simvastatin 20 mg oral tablet 20 mg, 1, tablet, By Mouth, Daily at bedtime, # 90 tablet, Refills 3, Tot. Refills 3, Maintenance, 03/14/21 14:34:00 EDT, Route to Pharmacy Electronically, [facility]/pharmacy #[id number], 162.56, cm, 03/14/21 14:12:00 [...] Right breast cancer, T1b N0, ER positive, CA positive, HER-2/mickey negative, diagnosed in 2008. Left [...] Clinical Service Informant Bipolar disorder Discharge Diagnosis 06/29/21 Diabetes Discharge Diagnosis 06/29/21 Hypertension Discharge Diagnosis 06/29/21 TIA (transient ischemic attack) Discharge Diagnosis 06/29/21 Tremors of nervous system Discharge Diagnosis 06/29/21 Vital Signs Most recent to oldest [Reference Range]: 1 2 Height 162.56 cm (06/29/21 2:06 PM) 162.56 cm (06/29/21 12:27 PM) Weight 89.5 kg (06/29/21 2:06 PM) 89.5 kg (06/29/21 12:27 PM) Oxygen Saturation [94-100 %] 91 % *L* (06/29/21 12:27 PM) Pulse Rate [55-90 bpm] 70 bpm (06/29/21 12:27 PM) Body Mass Index [18.5-24.99] 33.87 *>HHI* (06/29/21 12:27 PM) Blood Pressure [90-138/55-84 mm Hg] 120/ 68mm Hg (06/29/21 12:27 PM) Temperature [96.8-100.4 DegF] 98.4 DegF (06/29/21 12:27 PM) Mode of Delivery (Oxygen) Room air (06/29/21 12:27 PM) Blood pressure sites Arm, left (06/29/21 12:27 PM) Temperature Route Temporal (06/29/21 12:27 PM) Social History Social History Type Response Tobacco Other: 1 pack per da y for 40 years. Sex
--- OUTSIDE RECORDS SUMMARY | 2023-12-29 21:04 | XMS_ITS | Continuity of Care Document ---
Author Organization [facility] Address [address] [place] [address]- Care Team Providers Care Media Relations Intern Name Role Phone Nadia GUNDERSON, Katina Rosado Primary Care Physician [facility]counter [facility] Date(s): 09/26/20 - 10/26/20 [facility] [address] [place], [place] [address] Allergies, Adverse Reactions, Alerts Substance [...] [address] 2Result Comment: [07/22/2017] [facility] [id number] 3[facility]: [facility] 4Result Comment: [06/12/2015] high [...] 10/27/19 14:06:00 EST, Route to Pharmacy Electronically, [facility]/pharmacy #[id number], 160, cm, 10/27/19 13:44:00 EST, Height, 94.3, kg, 03/02/19 15:45:00 EDT, Dry Weight Start Date: 10/27/19 Stop Date: 10/21/20 Status: Ordered Calcium Carbonate By Mouth, 1000mg, 0 Refills, Maintenance, 01/12/18 13:45:02 EDT Start Date: 01/12/18 Status: Ordered Fosamax 70 mg oral tablet 1 tablet = 70 mg, By Mouth, Every week, # 4 tablet, 11 Refills, Maintenance, 09/20/19 16:46:00 EST,Tablet, [id number], cm, 03/26/19 13:55:00 EDT, Height, [...] 01/26/20 12:49:00 EDT, Route to Pharmacy Electronically, [facility]/pharmacy #[id number], 160, cm, 01/21/20 10:58:00 EDT, Height, 94.3, kg, 03/02/19 15:45:00... Start Date: 01/26/20 Stop Date: 03/22/20 Status: Ordered lithium 300 mg oral tablet 3 tablet = 900 mg, By Mouth, Daily at bedtime, # 270 tablet, 2 Refills, Maintenance, 09/05/20 14:33:00 EST, [facility]/pharmacy #[id number], 160, cm, 09/05/20 14:19:00 EST, Height, 94.3, kg, 03/02/19 15:45:00 EDT, Dry Weight Start Date: 09/05/20 Status: Ordered metFORMIN 1000 mg oral tablet 1 tablet = 1,000 mg, By Mouth, Daily, # 90 tablet, 3 Refills, Maintenance, 10/27/19 13:59:00 EST, Tablet, [facility]/pharmacy #[id number], 160, cm, 10/27/19 13:44:00 EST, Height, 94.3, kg, 03/02/19 15:45:00 EDT, Dry Weight Start Date: 10/27/19 Status: Ordered mupirocin 2% topical ointment 1 application, Topically, 3 times a day, apply to leg wound, # 22 Gm, 3 Refills, Maintenance, 01/11/20 15:40:00 EDT, Ointment, [facility]/pharmacy #[id number], 1 application Topically 3 times a day,Instr:apply toleg wound, 160, cm, 10/27/19 13:44:00 EST, Height,... Start Date: 01/11/20 Status: Ordered nortriptyline 50 mg oral capsule 1, capsule, By Mouth, Daily at bedtime, # 90 capsule, Refills 1, Tot. Refills 0, Maintenance, 09/04/20 15:55:00 EST, Route to Pharmacy Electronically, [facility] [id number], 160, cm, 06/27/20 14:03:00 EST,Height, 94.3, kg, 03/02/19 15:45:00 EDT, Dry Weight Start Date: 09/04/20 Status: Ordered omeprazole 20 mg oral enteric coated capsule 1 capsule = 20 mg, By Mouth, Daily, # 90 capsule, 3 Refills, Maintenance, 09/05/20 14:34:00 EST, ECCapsule, [facility]/pharmacy #[id number], 160, cm, 09/05/20 14:19:00 EST, Height, 94.3, kg, 03/02/19 15:45:00 EDT, Dry Weight Start Date: 09/05/20 Status: Ordered permethrin 5% topical cream 1 application, Topically, Once, Apply to skin from head to soles. Leave on 8-10 hours then wash off, # 60 mL, 0 Refills, Soft Stop, 09/26/20 16:00:00 EST, Lotion, [facility]/pharmacy #[id number], 1 application Topically Once,Instr:Apply to skin from head to soles.... Start Date: 09/26/20 Status: Ordered simvastatin 20 mg oral tablet 20 mg, 1, tablet, By Mouth, Daily at bedtime, # 90 tablet, Refills 3, Tot. Refills 3, Maintenance, 06/30/19 14:01:33 EST, Route to Pharmacy Electronically, [id number], [facility]/pharmacy #[id number] Start Date: 06/30/19 Stop Date: [...]
--- OUTSIDE RECORDS SUMMARY | 2023-12-29 21:04 | XMS_ITS | Continuity of Care Document ---
Author Organization [facility] Address [address] [place] [address]- Care Team Providers Care Chronic Care Nurse Name Role Phone Katina Zuniga MD Primary Care Physician Encounter [facility] Date(s): 09/16/22 - 10/16/22 [facility] [address] [place], [place] [address] Allergies, Adverse Reactions, Alerts No Known Allergies Immunizations Given and Recorded Vaccine Date Status Refusal Reason influenza virus vaccine, inactivated 1 06/07/22 Gi xi influenza virus vaccine, inactivated 2 06/08/18 Re corded influenza virus vaccine, inactivated 3 07/22/17 Gi xi influenza virus vaccine, inactivated 09/20/16 Ryan rded influenza virus vaccine, inactivated 07/06/14 Give n SARS-CoV-2 mRNA ([id number]) vax 02/24/22 Recorded SARS-CoV-2 (COVID-19) mRNA BNT-162b2 [...] tetanus/diphtheria/pertussis, acel(Tdap) 9 11/19/12 Given 1Result Comment: [facility] [id number] 2Location History: [facility] 3Result Comment: [07/22/2017] [facility] [id number] 4Result Comment: Done at [facility] [...] tablet, 1 Refills, [facility] STORE 38520,168, cm, 04/02/22 15:54:00 EDT, Height, 74.1, kg, [...] 11:33:00 EST, ER Tablet, [facility]/pharmacy #[id number], Partial fill upon patient request if the [...] Team Personnel Name: Katina Zuniga MD Position: [facility] Primary Care Physician Member Role: PCP Address: Address: [address] [place] [address]- Name: Mily Stein RN Position: [facility] RN Member Role: Primary Care Nurse Name: Geno Cifuentes RN Position: [facility] RN Member Role: Primary Care Nurse Name: Rosa Agustin NP Position: [facility] Associate Professional Member Role: Primary Care Nurse Address: Address: [address] [place] [address]- Name: Steve Saravia RN Position: [facility] RN Member Role: Primary Care Nurse Name: Ella Garcia RN Position: [facility] RN Member Role: Primary Care Nurse Name: Cy Benjamin DO Position: [facility] Renal MD Member Role: Lifetime Consulting Physician Address: Address: [address] [place] [address] [address] [facility] [place] [address]- [place] Name: Lauren Lund RN Position: [facility] ED RN W/OE and Tasks Member Role: Primary Care Nurse Name: Marisol Grady RN Position: S RN Member Role: Primary Care Nurse Name: Flory Fernandez RN Position: S RN Member Role: Primary Care Nurse Name: Paula Foss RN Position: [facility] RN Member Role: Primary Care Nurse Address: Address: [address] [facility] [place] [address]- Name: Nidia De Oliveira Position: [facility] RN Member Role: Primary Care Nurse Care Team Related Persons Name: RAFAELA ANDREWS Address: home [address] [place] [address] Name: VALENTINA ARNOLD Address: home [address] [facility] [address] [place] [address]
--- OUTSIDE RECORDS SUMMARY | 2023-12-29 21:04 | XMS_ITS | Continuity of Care Document ---
Author Organization [facility] Address [address] [place] [address]- Care Team Providers Care Assurance Auditor Name Role Phone Katina Zuniga MD Primary Care Physician Encounter [facility] Date(s): 03/07/22 - 04/06/22 [facility] [address] [place], [place] [address] Allergies, Adverse Reactions, Alerts No [...] 8 11/19/12 Given 1Result Comment: Done at [facility] 2Result Comment: Done at [facility] 3Location History: [facility] 4Result Comment: [07/22/2017] [facility] [id number] [facility] 6Result Comment: [06/12/2015] high [...] 0 Refills, Maintenance, 04/02/22 16:12:00 EDT, Tablet, [id number], Partial fill upon patient [...] 04/12/22 16:14:00 EDT, 04/02/22 16:14:00 EDT, Capsule, [facility]/pharmacy #[id number], Partial fill [...] 04/09/22 19:00:00 EDT, 04/02/22 16:12:00 EDT, Cream, [facility]/pharmacy #[id number], Partial fill upon patient request if the prescription is for a schedule II opioid drug., Topically 3 times a... Start Date: 04/02/22 Stop Date: 04/09/22 Status: Ordered lanolin topical - ointment 1 application, Topically, 3 times a day, PRN as needed for dry skin, # 113 Gm, 0 Refills, Maintenance, 02/04/22 8:30:00 EDT, Ointment, [facility]/pharmacy #[id number], Partial fill [...] LEG SWELLING, # 90 tablet, 1 Refills, [facility] STORE 51159,168, cm, 04/02/22 15:54:00 EDT, Height, 74.1, kg, [...]
--- OUTSIDE RECORDS SUMMARY | 2023-12-29 21:05 | XMS_ITS | Continuity of Care Document ---
Author Organization [facility] Address [address] [place] [address]- Care Team Providers Care Audit Officer Name Role Phone Katina Zuniga MD Primary Care Physician Encounter [facility] Date(s): 09/11/22 - 10/11/22 [facility] [address] [place], [place] [address] Allergies, Adverse Reactions, Alerts No Known Allergies Immunizations Given and Recorded Vaccine Date Status Refusal Reason influenza virus vaccine, inactivated 1 06/07/22 Gi xi influenza virus vaccine, inactivated 2 06/08/18 Re corded influenza virus vaccine, inactivated 3 07/22/17 Gi xi influenza virus vaccine, inactivated 09/20/16 Ryan rded influenza virus vaccine, inactivated 07/06/14 Give n SARS-CoV-2 mRNA ([id number]) vax 02/24/22 Recorded SARS-CoV-2 (COVID-19) mRNA BNT-162b2 [...] acel(Tdap) 9 11/19/12 Given 1Result Comment: [facility] [id number] 2Location History: [facility] 3Result Comment: [07/22/2017] [facility] [phone] 4Result Comment: Done at [facility] 5Result Comment: Done at [facility] 7Result Comment: [...] Electronically, [facility]/pharmacy #[id number], Partial fill upon patient request [...] Electronically, [facility]/pharmacy #[id number], Partial fill upon patient request ifthe [...] Refills, [facility] STORE 08042,168, cm, 04/02/22 15:54:00 EDT, Height, 74.1, kg, [...] Refills, Maintenance, 08/01/22 11:33:00 EST, ER Tablet, [facility]/pharmacy #[id number], Partial fill upon patient request if the [...] Care Physician Member Role: PCP Address: Address: [address] [place] [address]- Name: Mily Stein RN Position: [facility] RN Member Role: Primary Care Nurse Name: Geno Cifuentes RN Position: [facility] RN Member Role: Primary Care Nurse Name: Rosa Agustin NP Position: [facility] Associate Professional Member Role: Primary Care Nurse Address: Address: [address] [place] [address]- Name: Steve Saravia RN Position: [facility] RN Member Role: Primary Care Nurse Name: Ella Garcia RN Position: [facility] RN Member Role: Primary Care Nurse Name: Cy Benjamin DO Position: [facility] Renal MD Member Role: Lifetime Consulting Physician Address: Address: [address] [facility] [place] [address]- [place] Name: Migel Lopez RN Position: S RN Member Role: Primary Care Nurse Name: Lauren Lund RN Position: [facility] ED RN W/OE and Tasks Member Role: Primary Care Nurse Name: Marisol Grady RN Position: S RN Member Role: Primary Care Nurse Name: Corinna Orozco RN Position: S RN Member Role: Primary Care Nurse Name: Flory Fernandez RN Position: S RN Member Role: Primary Care Nurse Name: Paula Foss RN Position: S RN Member Role: Primary Care Nurse Address: Address: [address] [place] [address]- Name: Arnol Travis RN Position: S RN Member Role: Primary Care Nurse Name: Nidia De Oliveira Position: S RN Member Role: Primary Care Nurse Care Team Related Persons Name: JULIANA RAFAELA Address: home [address] [place] [address] Name: VALENTINA ARNOLD Address: home [address] [facility] [address] [place] [address]
--- OUTSIDE RECORDS SUMMARY | 2023-12-29 21:05 | XMS_ITS | Continuity of Care Document ---
Author Organization [facility] Address [address] [place] [address]- Care Team Providers Care Tmd Teacher Name Role Phone Katina Zuniga MD Primary Care Physician Encounter [facility] Date(s): 02/11/22 - 02/18/22 [facility] [address] [place], [place] [address] Encounter Diagnosis Bipolar disorder(Discharge Diagnosis) - 02/11/22 Leg swelling(Discharge Diagnosis) - 02/11/22 Attending Physician: Katina Zuniga MD Allergies, Adverse [...] Given 1Result Comment: Done at [facility] 2Result Comment: Done at [facility] 3Location History: [facility] 4Result Comment: [07/22/2017] [facility] [id number] 5[facility] 6Result Comment: [06/12/2015] high dose 7Admin Note: VIS GIVEN 8Admin Note: vis given Medications amLODIPine 10 mg oral tablet 10 mg, 1, tablet, By Mouth, Daily, # 90 tablet, Refills 2, Tot. Refills 2, Maintenance, 01/03/22 11:39:00 EDT, Route to Pharmacy Electronically, [facility]/pharmacy #[id number], Partial fill upon patient request if the prescription is for a schedule II opioid drug... Start Date: 01/03/22 Status: Ordered aspirin 325 mg oral delayed release tablet 325 mg, 1, tablet, By Mouth, Daily, # 90 tablet, Refills 2, Tot. Refills 2, Maintenance, 01/03/22 11:36:00 EDT, Route to Pharmacy Electronically, [facility]/pharmacy #[id number], Partial fill upon patient [...] 01/08/22 15:28:00 EDT, Route to Pharmacy Electronically, [facility]/pharmacy #[id number],dose change, 162.56, cm, 01/03/22 11:11:00 EDT, Hei... Start Date: 01/08/22 Status: Ordered lanolin topical - ointment 1 application, Topically, 3 times a day, PRN as needed for dry skin, # 113 Gm, 0 Refills, Maintenance, 02/04/22 8:30:00 EDT, Ointment, [facility]/pharmacy #[id number], Partial fill upon patient request if the prescription is for a schedule II opioid drug., 1 appli... Start Date: 02/04/22 Status: Ordered metFORMIN 500 mg oral tablet, extended release 1 tablet = 500 mg, By Mouth, Daily, # 90 tablet, 1 Refills, Maintenance, 01/03/22 11:36:00 EDT, ER Tablet, [facility]/pharmacy #[id number], Partial fill upon patient request if the prescription is for a schedule II opioid drug., 162.56, cm, 01/03/22 11:11:00 EDT,... Start Date: 01/03/22 Status: Ordered nortriptyline 25 mg oral capsule 25 mg, 1, capsule, By Mouth, Daily at bedtime, # 90 capsule, Refills 2, Tot. Refills 2, Maintenance, 01/03/22 11:39:00 EDT, Route to Pharmacy Electronically, [facility]/pharmacy #[id number], Partial fill upon patient request if the prescription is for a schedule I... Start Date: 01/03/22 Status: Ordered omeprazole 20 mg oral enteric coated capsule 1 capsule = 20 mg, By Mouth, Daily, # 90 capsule, 3 Refills, Maintenance, 10/10/21 13:07:00 EST, ECCapsule, [facility]/pharmacy #[id number], 162.56, cm, 10/10/21 12:54:00 EST, Height, 90.6, kg, 04/27/21 9:57:00 EDT, Dry Weight Start Date: 10/10/21 Status: Ordered simvastatin 20 mg oral tablet 20 mg, 1, tablet, By Mouth, Daily at bedtime, # 90 tablet, Refills 3, Tot. Refills 3, Maintenance, 01/03/22 11:37:00 EDT, Route to Pharmacy Electronically, [facility]/pharmacy #[id number], 162.56, cm, 01/03/22 11:11:00 EDT, Height, 78.4, kg, 11/16/21 22:27:00 EDT,... Start Date: 01/03/22 Stop Date: 12/29/22 Status: Ordered torsemide 20 mg oral tablet 1 tablet = 20 mg, By Mouth, Daily, PRN leg swelling, # 30 tablet, 2 Refills, Maintenance, 02/04/22 8:25:00 EDT, Tablet, [facility]/pharmacy #[id number], replaces furosemide, 162.56, cm, 02/04/22 8:19:00 [...] inical Service Informant Bipolar disorder Discharge Diagnosis 02/11/22 Leg swelling Discharge Diagnosis 02/11/22 Social History Social History Type Response Smoking Status Former smoker, quit more than 30 days ago entered on: 11/16/21 Sex
--- OUTSIDE RECORDS SUMMARY | 2023-12-29 21:05 | XMS_ITS | Continuity of Care Document ---
Author Organization [facility] Address [address] [place] [address]- Care Team Providers Care Resident Care Manager Name Role Phone Katina Zuniga MD Primary Care Physician Encounter [facility] Date(s): 07/31/21 - 09/05/[address] [address] Attending Physician: Katina Zuniga MD Admitting [...] 11/19/12 Given 1Result Comment: Done at [facility] 2Result Comment: Done at [facility] 3Location History: [facility] 4Result Comment: [07/22/2017] [facility] [id number] 5Location History: [facility] 6Result Comment: [06/12/2015] high dose 7Admin Note: VIS GIVEN 8Admin Note: vis given Medications aspirin 325 mg oral delayed release tablet 325 mg, 1, tablet, By Mouth, Daily, # 30 tablet, Refills 0, Tot. Refills 0, Maintenance, 04/27/21 16:38:00 EDT, Route to Pharmacy Electronically, [facility]/pharmacy #[id number], Partial fill upon patient [...] [id number], 162.56, cm, 12/15/20 15:05:00 EDT,Height, [...] 14:36:00 EDT, Route to Pharmacy Electronically, [facility]/pharmacy #[id number], 162.56, cm, 03/14/21 14:12:00 EDT, Height, 89.8, kg, 03/14/21 14:12... Start Date: 03/14/21 Stop Date: 05/09/21 Status: Ordered lithium 300 mg oral tablet 3 tablet = 900 mg, By Mouth, Daily at bedtime, # 270 tablet, 1 Refills, Maintenance, 09/04/21 17:14:00 EST, [facility]/pharmacy #[id number], 162.56, cm, 06/29/21 14:06:00 EDT, Height, 90.6, kg, 04/27/21 9:57:00 EDT, Dry Weight Start Date: 09/04/21 Status: Ordered metFORMIN 1000 mg oral tablet 1 tablet = 1,000 mg, By Mouth, Daily, # 90 tablet, 3 Refills, Maintenance, 12/15/20 15:41:00 EDT, Tablet, [facility]/pharmacy #[id number], 162.56, cm, 12/15/20 15:05:00 EDT, Height, 91, kg, 12/13/20 6:45:00 EDT, Dry Weight Start Date: 12/15/20 Status: Ordered nortriptyline 50 mg oral capsule 1, capsule, By Mouth, Daily at bedtime, # 90 capsule, Refills 1, Tot. Refills 1, Maintenance, 09/04/21 13:33:00 EST, Route to Pharmacy Electronically, [facility]/pharmacy #[id number], 162.56, cm, 06/29/21 14:06:00 EDT, Height, 90.6, kg, 04/27/21 9:57:00 EDT, Dry W... Start Date: 09/04/21 Status: Ordered omeprazole 20 mg oral enteric coated capsule 1 capsule = 20 mg, By Mouth, Daily, # 90 capsule, 3 Refills, Maintenance, 09/05/20 14:34:00 EST, ECCapsule, [facility]/pharmacy #[id number], 160, cm, 09/05/20 14:19:00 EST, Height, 94.3, kg, 03/02/19 15:45:00 EDT, Dry Weight Start Date: 09/05/20 Status: Ordered simvastatin 20 mg oral tablet 20 mg, 1, tablet, By Mouth, Daily at bedtime, # 90 tablet, Refills 3, Tot. Refills 3, Maintenance, 03/14/21 14:34:00 EDT, [id number], 162.56, cm, 03/14/21 14:12:00 EDT, Height, [...] Right breast cancer, T1b N0, ER positive, [place] positive, HER-2/mickey negative, diagnosed in 2008. Left [...]
[2023-12-29] MEDS: cefTRIAXone sodium 1 GM in 0.9 % Sodium Chloride 50 ML IV (21:53)
[2023-12-29] MEDS: 0.9 % Sodium Chloride 1,000 ML 100 ML IVCONT (21:53)
[2023-12-29] MEDS: Divalproex Sodium ER 500 MG TAB.ER.24H PO (21:54)
[2023-12-29] MEDS: Docusate Sodium 100 MG CAPSULE PO (21:54)
[2023-12-29] MEDS: Atorvastatin Calcium 10 MG TABLET PO (21:54)
[2023-12-29] MEDS: Nortriptyline HCl 10 MG CAPSULE PO (22:11)
--- NOTE | 2023-12-29 22:19 | PC.NURSE ---
PT medicated as per OCT. Stage II pressure ulcer noted on coccyx. Foam dressing applied, and pt repositioned to alleviate pressure on area.
[2023-12-30] MEDS: 0.9 % Sodium Chloride Flush 3 ML SYRINGE IVFLUSH ×5 (01:26→22:51)
[2023-12-30 02:14] VITALS: BP 135/56; PULSE 99; RESP 14; O2SAT 95
--- NOTE | 2023-12-30 02:57 | CONS_ITS ---
DATE OF SERVICE: 12/29/2023 HISTORY OF PRESENT ILLNESS: This has been obtained from the patient, her nurse, and the medical record. The patient is a 78-year-old female who was transferred from her shelter facility for evaluation of anemia and reported GI bleeding. The patient has been on Eliquis since her hospitalization here last month for a fractured femur with associated DVT and pulmonary emboli. During the hospitalization, she underwent interventional vascular procedure by Dr. Medellin with removal of a pulmonary artery thrombus and placement of inferior vena cava filter. She was discharged on Eliquis. During that hospitalization, she also had a surgery for the left femoral neck fracture by Dr. Doran. The patient denies any preceding GI problems. Apparently at the prison, she was noted to have some bleeding but not entirely clear as to whether this represented a red blood or black stool. In any event, she was noted to have a significantly diminished hemoglobin and was transferred to the ER. In the ER, a hemoglobin of 5.5 compared to 8.6 on December 21 and 10.5 on December 14. She was found to be heme-positive, but has not had any gross evidence of bleeding since arrival in the ER. She has been constipated. She denies any abdominal pain. She has had some nausea but no vomiting. She denies any chronic heartburn or dysphagia. She has not been using any aspirin or NSAIDs. This I confirmed from the medication list. She does not smoke nor use any significant amounts of alcohol. She has a history of colonoscopies, but not for a good number of years. Her CT scan in the ER revealed some abnormality in the cecum consistent with possible mass and changes of constipation with some perirectal inflammation consistent with possible stercoral colitis. MEDICATIONS: Present medications she did receive Kcentra in the ER for reversal of her Eliquis. Other medications include acetaminophen, atorvastatin, ceftriaxone, divalproex, Colace, folic acid, midodrine, nortriptyline, omeprazole Zofran, IV pantoprazole, MiraLAX, and risperidone. PAST MEDICAL HISTORY: Pulmonary emboli, DVT in November 2023 as above. Surgery for a fractured left femur in November 2023 as above. Hypertension. Hyperlipidemia. History of TIA. History of breast cancer with bilateral mastectomies. Bipolar disease. Coronary artery disease with previous VT. Tremors. FAMILY HISTORY: Negative for GI malignancy. SOCIAL HISTORY: She is single. She is a former smoker. She does not use any significant amounts of alcohol. REVIEW OF SYSTEMS: CONSTITUTIONAL: She has been feeling tired and somewhat anorectic. CARDIAC: No chest pain. PULMONARY: No cough, no hemoptysis. GI: As above. She also denies any dysphagia nor postprandial abdominal pain. URINARY: No dysuria, no hematuria. NEUROLOGIC: No headache or seizures. PHYSICAL EXAMINATION: GENERAL: The patient is a pale, alert, comfortable-appearing female. SKIN: Warm and dry. Anicteric sclerae. CARDIAC: Normal S1, S2. ABDOMEN: Soft, nondistended, nontender. LABORATORY DATA: CT scan and blood count as above. Hemoglobin 9.6 after 2 units of blood. White blood cell count 10,000, platelets 202,000. PT 13.8 with INR 1.1. Normal electrolytes. BUN 65, creatinine 1.5. Initial lactic acid level was 3.6 with followup 2.3 and then 1.4. Normal LFTs. Albumin 3.2. Stool was heme positive. CT scan as above. IMPRESSION: Given the patient's clinical history and abnormal CT scan as well as heme-positive stool, she may very well have occult bleeding from a cecal lesion. This may have become particularly problematic when she was started on a blood thinner after her recent hospitalization with pulmonary emboli and DVT. I would recommend eventual colonoscopy. However, she does appear to be quite constipated based on her history and by the CT scan. Therefore, I suspect she will need a bowel prep over a couple days and to then proceed with colonoscopy later in the week. This will be reviewed with her. In the meantime, I would recommend continuing to follow her blood count. Given the report of some questionable black stool, I would recommend upper endoscopy on the same day as her colonoscopy. These procedures will be done with monitored anesthesia care. She will be kept on IV PPI. I will continue clear liquids for now. Thank you for the consultation. MD MONET Olivo/DEMETRIUS / [phone] MTDRamana
[2023-12-30 04:32] LABS: Basophils Percent Auto 0.3 % (0-2); Eosinophils Absolute Auto 0.1 X10*3/uL (0.0-0.4); Hemoglobin 8.4 g/dl (12.0-16.0); Imm Gran Abs Auto 0.07 X10*3/uL (0.00-0.03); Imm Gran Pct Auto 0.7 % (0.0-0.4); Lymphocytes Absolute Auto 1.7 X10*3/uL (1.2-4.9); Lymphocytes Percent Auto 17.1 % (20-40); MANUAL DIFF FLAG SCAN; Mean Corpuscular Volume 88.6 fL (80.0-98.0); Mean Platelet Volume 9.8 fL (9.4-12.3); Monocytes Absolute Auto 0.6 X10*3/uL (0.1-1.2); Monocytes Percent Auto 5.9 % (2-11); Neutrophils Absolute Auto 7.3 x10*3/uL (2.0-8.3); PLT CLUMP 1; Red Blood Count 2.71 X10*6/uL (4.20-5.50); Red Cell Distribution Width 17.2 % (11.0-16.0); SCAN SMEAR FLAG 1
[2023-12-30 04:33] LABS: Platelet Count 197 X10*3/uL (160-400); White Blood Count 9.8 X10*3/uL (4.8-10.8)
[2023-12-30 04:51] LABS: Anion Gap 14 (12-20); Blood Urea Nitrogen 51 mg/dL (9-16); Calcium 8.4 mg/dL (8.4-10.2); Carbon Dioxide 18 mmol/L (22-29); Chloride 114 mmol/L (96-108); Creatinine Clr Calc Pharmacy 51.3; Estimated Glomerular Filt Rate > 60; Glucose Random 91 mg/dL (60-115); Potassium 4.1 mmol/L (3.3-5.1); Sodium 142 mmol/L (135-145)
[2023-12-30 05:05] LABS: SLIDE REVIEW VERIFIED
[2023-12-30 05:59] VITALS: BP 101/41; PULSE 93; RESP 17; O2SAT 92
[2023-12-30] MEDS: 0.9 % Sodium Chloride 1,000 ML 100 ML IVCONT ×2 (06:48→17:15)
[2023-12-30 07:06] VITALS: BP 133/60; PULSE 100; RESP 18; TEMP 36.8; O2SAT 94
[2023-12-30 07:25] VITALS: BMI 27.3
[2023-12-30] MEDS: bisacodyL 5 MG TABLET.DR 10 MG PO ×2 (07:44→22:51)
[2023-12-30] MEDS: Pantoprazole Sodium 40 MG/10 ML VIAL IVPUSH ×2 (07:44→17:16)
[2023-12-30] MEDS: Docusate Sodium 100 MG CAPSULE PO ×2 (07:44→21:32)
[2023-12-30] MEDS: Folic Acid 1 MG TABLET PO (07:44)
[2023-12-30] MEDS: polyethylene glycoL 3350 17 GM POWD.PACK PO ×2 (07:45→21:32)
--- NOTE | 2023-12-30 09:30 | MHC.CM.PN ---
Patient has a diagnosis of Cognitive D/O; CM spoke with Sister/HCP/Elinor @ [phone] and addressed IMM with her (original will be mailed certified letter to Sister and a copy has been placed on the chart). 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 CM has initiated and will follow for dc planning. 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 Patient uses a walker at baseline. CM has made a referral to [facility] in anticipation of Patient requiring LTC at some point. Family expressed an interest in paying privately to hold the bed at [facility]. PCP is Dr. Jo.
[2023-12-30 10:31] LABS: Iron 38 mcg/dL (30-160); Percent Iron Saturation 16 % (15-50); Total Iron Binding Capacity 232 mcg/dL (228-428); Unsaturated Iron Binding 194 ug/dL
[2023-12-30 11:55] VITALS: BP 127/60; PULSE 100; RESP 18; TEMP 36.4; O2SAT 96
--- NOTE | 2023-12-30 14:01 | MHC.CM.PN ---
Patient's Sister/HCP/Elinor has chosen NOT to pay privately to hold the bed at [facility]. CM will follow.
[2023-12-30 14:23] LABS: Hematocrit 24.3 % (37.0-47.0); Hemoglobin 8.4 g/dl (12.0-16.0); Mean Corpuscular HGB Conc 34.6 g/dl (31.0-35.0); Mean Corpuscular Hemoglobin 31.6 pg (27.0-33.0); Mean Corpuscular Volume 91.4 fL (80.0-98.0); NRBC Pct Auto 0.2 /100WBC (0.0-0.2); PLT CLUMP 1; Red Blood Count 2.66 X10*6/uL (4.20-5.50)
[2023-12-30 14:54] LABS: Mean Platelet Volume 10.2 fL (9.4-12.3); Platelet Count 192 X10*3/uL (160-400); White Blood Count 10.1 X10*3/uL (4.8-10.8)
[2023-12-30 15:36] VITALS: BP 117/60; PULSE 99; RESP 17; TEMP 36.3; O2SAT 92
--- NOTE | 2023-12-30 15:45 | HO.PM.IMPN ---
Subjective Subjective Date of Service: 12/30/23 Interval History: seen and evaluated this morning denies bleeding per rectum Hb at 8.4, repeated afternoon remains 8.4 patient constipated Review of Systems Review of Systems: Yes all other systems are reviewed and are negative Physical Exam Vital Signs: Vital Signs: Last Vital Signs Temp 97.4 F 12/30/23 15:36 Pulse 99 12/30/23 15:36 Resp 17 12/30/23 15:36 BP 117/60 12/30/23 15:36 Pulse Ox 92 12/30/23 15:36 O2 Del Method Room Air 12/30/23 15:36 BMI result Body Mass Index 27.3 Const: Other: Constitutional : Awake, interactive, not in distress Neck : Normal inspection, Supple Cardiovascular : RRR, no JVP elevation Respiratory : good bilateral air entry, no crackles, wheezes or rhonchi Gastrointestinal: soft, lax, Normal bowel sounds, Non tender Skin : Warm, Dry Neurological : Alert & oriented x3, No focal deficit , CN 2-12 within normal Objective Data Active Medications Acetaminophen (Acetaminophen 325 Mg Tablet) 650 mg PO Q6H PRN PRN Reason: Pain, Mild (Pain Scale 1-3) Atorvastatin Calcium (Atorvastatin Calcium 10 Mg Tablet) 10 mg PO BEDTIME [facility] Last Admin: 12/29/23 21:54 Dose: 10 mg Documented By: JESSICA Divalproex Sodium (Divalproex Sodium Er 500 Mg Tab.Er.24h) 500 mg PO BEDTIME [facility] Last Admin: 12/29/23 21:54 Dose: 500 mg Documented By: JESSICA Docusate Sodium (Docusate Sodium 100 Mg Capsule) 100 mg PO BID [facility] Last Admin: 12/30/23 07:44 Dose: 100 mg Documented By: BRENT Folic Acid (Folic Acid 1 Mg Tablet) 1 mg PO DAILY [facility] Last Admin: 12/30/23 07:44 Dose: 1 mg Documented By: BRENT Ceftriaxone Sodium 1 gm/ (Sodium Chloride) 50 mls @ 100 mls/hr IV Q24H [facility] Last Infusion: 12/30/23 06:40 Dose: Infused Documented By: TRAVIS Sodium Chloride (Ns) 1,000 mls @ 100 mls/hr IVCONT .Q10H [facility] Last Admin: 12/30/23 06:48 Dose: 100 mls/hr Documented By: TRAVIS Midodrine (Midodrine Hcl 5 Mg Tablet) 5 mg PO TID PRN PRN Reason: SBP < 90 Non-Formulary Medication (Risperidone Microspheres) 25 mg IM Q14D [facility] Nortriptyline HCl (Nortriptyline Hcl 10 Mg Capsule) 10 mg PO BEDTIME [facility] Last Admin: 12/29/23 22:11 Dose: 10 mg Documented By: JESSICA Omeprazole (Omeprazole 20 Mg Capsule.Dr) 20 mg PO BEDTIME [facility] Last Admin: 12/29/23 21:53 Dose: Not Given Documented By: JESSICA Non-Admin Reason: Physician Held Med Ondansetron HCl (Ondansetron Odt 4 Mg Tab.Rapdis) 4 mg TRANSLINGU Q6H PRN PRN Reason: Nausea And Vomiting Ondansetron HCl (Ondansetron Hcl 4 Mg/2 Ml Vial) 4 mg IVPUSH Q8H PRN PRN Reason: Nausea and Vomiting Pantoprazole Sodium (Pantoprazole Sodium 40 Mg/10 Ml Vial) 40 mg IVPUSH BID@0630,1630 [facility] Last Admin: 12/30/23 07:44 Dose: 40 mg Documented By: BRENT Polyethylene Glycol (Polyethylene Glycol 3350 17 Gm Powd.Pack) 17 gm PO BID [facility] Last Admin: 12/30/23 07:45 Dose: 17 gm Documented By: BRENT Sodium Chloride (0.9 % Sodium Chloride Flush 3 Ml Syringe) 3 ml IVFLUSH QSHIFT [facility] Last Admin: 12/30/23 07:45 Dose: 3 ml Documented By: BRENT Labs 12/30/23 13:50 12/30/23 04:21 Labs: Laboratory Results - last 24 hr 12/29/23 12/29/23 12/29/23 16:42 17:31 19:15 MCV 90.8 D MCH 31.4 MCHC 34.5 RDW 16.9 H Plt Count 202 D MPV 9.7 Immature Gran % (Auto) 0.6 H Neut % (Auto) 78.9 H Lymph % (Auto) 15.2 L [place] % (Auto) 4.8 Eos % (Auto) 0.3 Baso % (Auto) 0.2 Lymph # (Auto) 1.5 [place] # (Auto) 0.5 Eos # (Auto) 0.0 Baso # (Auto) 0.0 Abs Immat Gran (auto) 0.06 H Absolute Neuts (auto) 7.9 Absolute Nucleated RBC 0.000 Nucleated RBC % (auto) 0.0 Smear Tech's Comments Anion Gap Estim Creat Clear Calc Estimated GFR Random Glucose Lactic Acid F/U @ 2Hr 2.3 H* Lactic Acid F/U @ 4Hr 1.4 Calcium Iron TIBC % Saturation Unsat Iron Binding Urine Color Yellow Urine Appearance Clear Urine pH 5.5 Ur Specific [place] 1.010 Urine Protein Negative Urine Glucose (UA) Negative Urine Ketones Negative Urine Blood Negative Urine Nitrite Positive H Ur Leukocyte Esterase Large (3+) H Urine RBC 0-2 Urine WBC >50 H Ur Squamous Epith Cells 0-2 Urine Bacteria 2+ Hyaline Casts 0-2 Blood Type A Positive Antibody Screen NEGATIVE Crossmatch See Detail 12/30/23 12/30/23 04:21 13:50 MCV 88.6 91.4 MCH 31.0 31.6 MCHC 35.0 34.6 RDW 17.2 H 18.0 H Plt Count 197 192 MPV 9.8 10.2 Immature Gran % (Auto) 0.7 H Neut % (Auto) 75.0 H Lymph % (Auto) 17.1 L [place] % (Auto) 5.9 Eos % (Auto) 1.0 Baso % (Auto) 0.3 Lymph # (Auto) 1.7 [place] # (Auto) 0.6 Eos # (Auto) 0.1 Baso # (Auto) 0.0 Abs Immat Gran (auto) 0.07 H Absolute Neuts (auto) 7.3 Absolute Nucleated RBC 0.000 0.020 H Nucleated RBC % (auto) 0.0 0.2 Smear Tech's Comments VERIFIED Anion Gap 14 Estim Creat Clear Calc 51.3 Estimated GFR > 60 Random Glucose 91 Lactic Acid F/U @ 2Hr Lactic Acid F/U @ 4Hr Calcium 8.4 D Iron 38 TIBC 232 % Saturation 16 Unsat Iron Binding 194 Urine Color Urine Appearance Urine pH Ur Specific [place] Urine Protein Urine Glucose (UA) Urine Ketones Urine Blood Urine Nitrite Ur Leukocyte Esterase Urine RBC Urine WBC Ur Squamous Epith Cells Urine Bacteria Hyaline Casts Blood Type Antibody Screen Crossmatch Microbiology Microbiology Results: Microbiology 12/29/23 17:50 Urine Culture - Preliminary Urine clean catch - Clean Catch Midstream Culture too young to evaluate. Assessment and Plan (1) ABLA (acute blood loss anemia): Status: Acute (2) Acute lower GI bleeding: Status: Acute (3) Mass in rectum: Status: Acute Plan 78-year-old female with a PMH significant for?HTN, HLD, cognitive disorder, hx of TIA, hx of DVT/PE, hx of breast cancer, GERD, and bipolar I disorder with recent admission to hospitalist service from 11/28-12/08 due to left hip fracture s/p hemiarthroplasty on 12/03 also found to have pulmonary embolism with type 2 NSTEMI with IVC filter placed 12/01 and started on Eliquis admitted for further management of GI bleed #Acute blood loss anemia due to GI bleed H/H on arrival 5.5/17.4%. Transfuse 2 units PRBCs, repeated stable at 8.4 CT abdomen/pelvis results negative for perforation but show a cecal mass with possible bleeding stool occult blood positive GI rec holding Eliquis, bowel prep for upper and lower endoscopies later this week. clear liquid diet IV PPI hold Eliquis follow CBC Q8, transfuse as needed Laxatives # acute hypotension resolved, not due to sepsis #Acute kidney injury likely 2/ hypotension improved to 0.9 from 1.4 avoid nephrotoxins follow BMP # SIRS criteria resolved, no sepsis # acute UTI pending cultures IV ceftriaxone (initiated 12/28) # acute lactic acidosis resolved # Hx hypertension hold antihypertensives, Resume as appropriate # HLD continue statin # recent PE/DVT diagnosed 11/28 s/p IVC filter placement 12/01 hold Eliquis # recent left hip fracture s/p hemiarthroplasty PT eval # mood disorder continue home meds DVT prophylaxis- SCPs DNR/DNI Pt requires inpt stay overnight for management of acute GI bleed requiring IV fluid resuscitation, blood transfusion, pending EGD and colonoscopy while monitoring hemoglobin level and urine culture Quality Stroke Does the patient have a stroke diagnosis?: No VTE Prior VTE?: No VTE Risk Level:: Medical - moderate - high VTE Device Contraindication: N/A - Device Ordered VTE Drug Contraindication: Treatment Not Indicated
[2023-12-30 19:23] VITALS: BP 128/60; PULSE 104; RESP 18; TEMP 36.5; O2SAT 96
[2023-12-30] MEDS: cefTRIAXone sodium 1 GM in 0.9 % Sodium Chloride 50 ML IV (21:29)
[2023-12-30] MEDS: Omeprazole 20 MG CAPSULE.DR PO (21:31)
[2023-12-30] MEDS: Nortriptyline HCl 10 MG CAPSULE PO (21:31)
[2023-12-30] MEDS: Divalproex Sodium ER 500 MG TAB.ER.24H PO (21:32)
[2023-12-30] MEDS: Atorvastatin Calcium 10 MG TABLET PO (21:32)
[2023-12-30 21:33] LABS: Hematocrit 23.7 % (37.0-47.0); Mean Corpuscular HGB Conc 33.8 g/dl (31.0-35.0); Mean Corpuscular Volume 91.9 fL (80.0-98.0); Mean Platelet Volume 10.3 fL (9.4-12.3); NRBC Pct Auto 0.9 /100WBC (0.0-0.2); Platelet Count 165 X10*3/uL (160-400); Red Blood Count 2.58 X10*6/uL (4.20-5.50); Red Cell Distribution Width 17.9 % (11.0-16.0); White Blood Count 8.8 X10*3/uL (4.8-10.8)
--- NOTE | 2023-12-30 23:30 | P.PNGI_ITS ---
Subjective Subjective Date of Service: 12/30/23 Interval History: Patient seen at 7:00PM. History from patient, RN, and EMR. Patient denies any abdominal pain, N/V. She is hungry. There has been no bleeding. Having BMs but withoiut any signs of bleeding Critical Care Time (minutes): 0 Physical Exam 2 Vital Signs: Vital Signs: Last Vital Signs Temp 97.7 F 12/30/23 19:23 Pulse 104 H 12/30/23 19:23 Resp 18 12/30/23 19:23 BP 128/60 12/30/23 19:23 Pulse Ox 96 12/30/23 19:23 O2 Del Method Room Air 12/30/23 19:23 BMI result Body Mass Index 27.3 Const: General: cooperative, comfortable and no acute distress GI: Other: Soft,NT, no mass Objective Data Labs 12/30/23 21:23 12/30/23 04:21 Labs: Laboratory Results - last 24 hr 12/30/23 12/30/23 12/30/23 04:21 13:50 21:23 WBC 9.8 10.1 8.8 RBC 2.71 L 2.66 L 2.58 L Hgb 8.4 L 8.4 L 8.0 L Hct 24.0 L 24.3 L 23.7 L MCV 88.6 91.4 91.9 MCH 31.0 31.6 31.0 MCHC 35.0 34.6 33.8 RDW 17.2 H 18.0 H 17.9 H Plt Count 197 192 165 MPV 9.8 10.2 10.3 Immature Gran % (Auto) 0.7 H Neut % (Auto) 75.0 H Lymph % (Auto) 17.1 L [place] % (Auto) 5.9 Eos % (Auto) 1.0 Baso % (Auto) 0.3 Lymph # (Auto) 1.7 [place] # (Auto) 0.6 Eos # (Auto) 0.1 Baso # (Auto) 0.0 Abs Immat Gran (auto) 0.07 H Absolute Neuts (auto) 7.3 Absolute Nucleated RBC 0.000 0.020 H 0.080 H Nucleated RBC % (auto) 0.0 0.2 0.9 H Smear Tech's Comments VERIFIED Sodium 142 Potassium 4.1 Chloride 114 H Carbon Dioxide 18 L Anion Gap 14 BUN 51 H Creatinine 0.91 Estim Creat Clear Calc 51.3 Estimated GFR > 60 Random Glucose 91 Calcium 8.4 D Iron 38 TIBC 232 % Saturation 16 Unsat Iron Binding 194 Microbiology Microbiology Results: Microbiology 12/29/23 13:50 Blood - Venous Blood Culture - Preliminary No growth after 24 hours. 12/29/23 13:51 Blood - Venous Blood Culture - Preliminary No growth after 24 hours. 12/29/23 17:50 Urine clean catch - Clean Catch Midstream Urine Culture - Preliminary Culture too young to evaluate. Procedures Date of Service Date of Service: 12/30/23 Progress Note: A&P Assessment and plan (1) Abnormal CT scan, colon: Status: Acute (2) GI bleed: Status: Acute Assessment and Plan: Imp: GI Bleed, anemia, abnormal CT of colon. Presently stable and without any active bleeding Rec: EGD/Colonoscopy on 12/31. Full consent obtained, including risks of bleeding and perforation. Continue IV PPI. F/U labs. Continue to hold Eliquis. D/W patient in detail and she is comfortable with this plan. Thanks Time Spent With Patient Time: Total time managing care of this patient today ____ minutes. Quality Stroke Does the patient have a stroke diagnosis?: No VTE Prior VTE?: No VTE Risk Level:: Medical - moderate - high VTE Device Contraindication: N/A - Device Ordered VTE Drug Contraindication: Treatment Not Indicated
--- NOTE | 2023-12-30 23:50 | MHC.SHP ---
Pre-Procedural Eval Section A - 24 Hr Update-Section A only Date of Service: 01/01/24 The patient is an INPATIENT: Yes The patient has been examined within 24 hours of the surgical procedure. The History & Physical has been completed within 30 days and I have reviewed it.: Yes Section B - Complete if H&P > 30 days Chief Complaint: GIB, hypotension Allergies: Allergies Allergy/AdvReac Type Severity Reaction Status Date / Time No Known Allergies Allergy Verified 12/29/23 12:41 [No Known Allergies*] Plan I have reviewed the history and physical and performed a pertinent physical examination on my patient. No changes have occurred unless specified. Time Spent With Patient Time: Total time managing care of this patient today ____ minutes.
[2023-12-31] VITALS: BP 110/53; PULSE 96; RESP 16; TEMP 36.3; O2SAT 92
[2023-12-31] MEDS: 0.9 % Sodium Chloride 1,000 ML 100 ML IVCONT ×2 (03:07→12:25)
[2023-12-31 03:37] VITALS: BP 120/58; PULSE 70; RESP 20; TEMP 36.1; O2SAT 97
[2023-12-31 07:22] VITALS: BP 114/55; PULSE 86; RESP 20; TEMP 36.2; O2SAT 99
[2023-12-31] MEDS: Folic Acid 1 MG TABLET PO (08:57)
[2023-12-31] MEDS: Docusate Sodium 100 MG CAPSULE PO (08:57)
[2023-12-31] MEDS: polyethylene glycoL 3350 17 GM POWD.PACK PO (08:57)
--- NOTE | 2023-12-31 10:57 | MHC.CM.PN ---
Per ROUNDS discussion, Patient is not yet medically cleared for dc (EGD & Colonoscopy tomorrow); home is the goal and CM will follow.
[2023-12-31 11:36] VITALS: BP 126/60; PULSE 97; RESP 20; TEMP 36.9; O2SAT 99
--- NOTE | 2023-12-31 11:46 | P.PNIM_ITS ---
Subjective Subjective Date of Service: 12/31/23 Interval History: no complaints Physical Exam 2 Vital Signs: Vital Signs: Last Vital Signs Temp 98.5 F 12/31/23 11:36 Pulse 97 12/31/23 11:36 Resp 20 12/31/23 11:36 BP 126/60 12/31/23 11:36 Pulse Ox 99 12/31/23 11:36 O2 Del Method Room Air 12/31/23 11:36 O2 Flow Rate 0.5 12/31/23 07:22 BMI result Body Mass Index 27.3 Const: General: cooperative, comfortable and no acute distress GI: Other: Soft,NT, no mass Objective Data Active Medications Acetaminophen (Acetaminophen 325 Mg Tablet) 650 mg PO Q6H PRN PRN Reason: Pain, Mild (Pain Scale 1-3) Atorvastatin Calcium (Atorvastatin Calcium 10 Mg Tablet) 10 mg PO BEDTIME [facility] Last Admin: 12/30/23 21:32 Dose: 10 mg Documented By: DARIN Bisacodyl (Bisacodyl 5 Mg Tablet.Dr) 10 mg PO ONCE ONE Stop: 12/31/23 18:01 Divalproex Sodium (Divalproex Sodium Er 500 Mg Tab.Er.24h) 500 mg PO BEDTIME [facility] Last Admin: 12/30/23 21:32 Dose: 500 mg Documented By: DARIN Docusate Sodium (Docusate Sodium 100 Mg Capsule) 100 mg PO BID [facility] Last Admin: 12/31/23 08:57 Dose: 100 mg Documented By: WISAM Folic Acid (Folic Acid 1 Mg Tablet) 1 mg PO DAILY [facility] Last Admin: 12/31/23 08:57 Dose: 1 mg Documented By: WISAM Ceftriaxone Sodium 1 gm/ (Sodium Chloride) 50 mls @ 100 mls/hr IV Q24H [facility] Last Infusion: 12/30/23 22:00 Dose: Infused Documented By: DARIN Sodium Chloride (Ns) 1,000 mls @ 100 mls/hr IVCONT .Q10H [facility] Last Admin: 12/31/23 03:07 Dose: 100 mls/hr Documented By: DARIN Midodrine (Midodrine Hcl 5 Mg Tablet) 5 mg PO TID PRN PRN Reason: SBP < 90 Non-Formulary Medication (Risperidone Microspheres) 25 mg IM Q14D [facility] Nortriptyline HCl (Nortriptyline Hcl 10 Mg Capsule) 10 mg PO BEDTIME [facility] Last Admin: 12/30/23 21:31 Dose: 10 mg Documented By: DARIN Omeprazole (Omeprazole 20 Mg Capsule.Dr) 20 mg PO BEDTIME [facility] Last Admin: 12/30/23 21:31 Dose: 20 mg Documented By: DARIN Ondansetron HCl (Ondansetron Odt 4 Mg Tab.Rapdis) 4 mg TRANSLINGU Q6H PRN PRN Reason: Nausea And Vomiting Ondansetron HCl (Ondansetron Hcl 4 Mg/2 Ml Vial) 4 mg IVPUSH Q8H PRN PRN Reason: Nausea and Vomiting Polyethylene Glycol (Polyethylene Glycol 3350 17 Gm Powd.Pack) 17 gm PO BID [facility] Last Admin: 12/31/23 08:57 Dose: 17 gm Documented By: WISAM Polyethylene Glycol/Electrolytes (Peg 3350/Na Sulf,Bicarb,Cl/Kcl 4,000 Ml Soln.Recon) 4,000 ml PO ONCE ONE Stop: 12/31/23 15:01 Sodium Chloride (0.9 % Sodium Chloride Flush 3 Ml Syringe) 3 ml IVFLUSH QSHIFT [facility] Last Admin: 12/30/23 22:51 Dose: 3 ml Documented By: DARIN Labs 12/30/23 21:23 12/30/23 04:21 Labs: Laboratory Results - last 24 hr 12/30/23 12/30/23 13:50 21:23 MCV 91.4 91.9 MCH 31.6 31.0 MCHC 34.6 33.8 RDW 18.0 H 17.9 H Plt Count 192 165 MPV 10.2 10.3 Absolute Nucleated RBC 0.020 H 0.080 H Nucleated RBC % (auto) 0.2 0.9 H Microbiology Microbiology Results: Microbiology 12/29/23 17:50 Urine Culture - Final Urine clean catch - Clean Catch Midstream 12/29/23 13:50 Blood Culture - Preliminary Blood - Venous No growth after 24 hours. 12/29/23 13:51 Blood Culture - Preliminary Blood - Venous No growth after 24 hours. Assessment and Plan (1) ABLA (acute blood loss anemia): Status: Acute (2) Acute lower GI bleeding: Status: Acute (3) Mass in rectum: Status: Acute Plan 78F PMH HTN, HLD, cognitive disorder, hx of TIA, hx of DVT/PE, hx of breast cancer, GERD, and bipolar I disorder with recent admission to hospitalist service from 11/28-12/08 due to left hip fracture s/p hemiarthroplasty on 12/03 also found to have pulmonary embolism with type 2 NSTEMI with IVC filter placed 12/01 and started on Eliquis presented lightheaded found to have severe anemia Acute blood loss anemia due to GI bleed H/H on arrival 5.5/17.4%. Transfuse 2 units PRBCs, repeated stable CT abdomen/pelvis results negative for perforation but show a cecal mass with possible bleeding stool occult blood positive GI rec holding Eliquis, bowel prep for upper and lower endoscopies 12/31/ clear liquid diet po PPI acute hypotension resolved, not due to sepsis Acute kidney injury likely 09/26 hypotension resolved SIRS criteria resolved, no sepsis acute UTI mixed john in culture, culture from 12/25 ecolic sensitive to rocephin IV ceftriaxone (initiated 12/28) acute lactic acidosis resolved Hx hypertension holding lisinopril, low normal bp HLD continue statin recent PE/DVT diagnosed 11/28 s/p IVC filter placement 12/01 hold Eliquis recent left hip fracture s/p hemiarthroplasty PT recommending str DVT prophylaxis- SCPs due to gi bleed DNR/DNI reason for continued hospitalization: plan for scope inpatient due to seveirty of anemia Quality Stroke Does the patient have a stroke diagnosis?: No VTE Prior VTE?: No VTE Risk Level:: Medical - moderate - high VTE Device Contraindication: N/A - Device Ordered VTE Drug Contraindication: Treatment Not Indicated
--- NOTE | 2023-12-31 12:41 | MHC.CM.PN ---
CM returned a call to /Elinor @ [phone] and answered all questions regarding dc planning. CM will follow.
[2023-12-31] MEDS: PEG 3350/Na Sulf,Bicarb,Cl/KCL 4,000 ML SOLN.RECON 4000 ML PO (15:31)
[2023-12-31] MEDS: 0.9 % Sodium Chloride Flush 3 ML SYRINGE IVFLUSH ×2 (15:31→21:58)
[2023-12-31 16:06] VITALS: BP 128/60; PULSE 91; RESP 16; TEMP 36.3; O2SAT 98
--- NOTE | 2023-12-31 16:56 | HO.WOUND ---
Wound Consult: Initial 78yr old? female admitted to [facility] on 12/29/23 - See progress notes and H&P for detailed history.? Wound consult placed for coccyx wound POA.? Patient agreeable to assessment and photo documentation.? Coccyx Etiology: ?Unstageable Pressure Injury ?Present on Admission Wound Bed: adherent yellow slough throughout some small granulation buds noted Drainage / Odor: serosang scant no odor noted Edges: ? linear and irregular Melissa wound: ?MASD (Moisture Associated Skin Damage) No Induration, Fluctuance or Warmth noted Pain: reports pain Goals of Treatment: ? Off Load Triad and foam dressing waffle cushion applied Recommendations: 1. Turn and Reposition every 2 hours and as needed for patient comfort.? Use pillows or wedges to support off loading positions. 2. Off Load all bony prominences with use of pillows and heel boots if needed.? Apply Preventative foams where needed. ? 3. Monitor for incontinence and moisture control, use barrier creams when needed for prevention and treatment. 4. Provide adequate and supplemental nutrition.? 5. Order low air loss mattress. 6. When applicable maintain blood glucose levels per Providers order. 7. Coccyx - Cleanse with PH balance spray or wipes, pat dry. ?Apply thin layer of Triad to wound bed. Do not remove all of paste between applications as this may cause further skin damage.? Cover with foam dressing to aid in off loading and protection from friction. Off Load Pressure - Waffle cushion provided. Re-consult wound care Nurse for wound deterioration or wound changes.
[2023-12-31] MEDS: bisacodyL 5 MG TABLET.DR 10 MG PO (18:49)
[2023-12-31 19:39] VITALS: BP 170/72; PULSE 93; RESP 16; TEMP 36; O2SAT 93
[2023-12-31 20:18] LABS: Anion Gap 16 (12-20); Blood Urea Nitrogen 24 mg/dL (9-16); Calcium 8.2 mg/dL (8.4-10.2); Carbon Dioxide 15 mmol/L (22-29); Chloride 116 mmol/L (96-108); Creatinine Clr Calc Pharmacy 67.5; Estimated Glomerular Filt Rate > 60; Glucose Random 101 mg/dL (60-115); Sodium 143 mmol/L (135-145)
[2023-12-31 20:23] LABS: Hematocrit 23.2 % (37.0-47.0); Hemoglobin 8.1 g/dl (12.0-16.0); Mean Corpuscular HGB Conc 34.9 g/dl (31.0-35.0); Mean Corpuscular Hemoglobin 31.6 pg (27.0-33.0); Mean Corpuscular Volume 90.6 fL (80.0-98.0); Mean Platelet Volume 10.1 fL (9.4-12.3); PLT CLUMP 1; Red Blood Count 2.56 X10*6/uL (4.20-5.50); Red Cell Distribution Width 17.7 % (11.0-16.0); White Blood Count 9.2 X10*3/uL (4.8-10.8)
[2023-12-31] MEDS: Divalproex Sodium ER 500 MG TAB.ER.24H PO (21:27)
[2023-12-31] MEDS: Nortriptyline HCl 10 MG CAPSULE PO (21:28)
[2023-12-31] MEDS: Atorvastatin Calcium 10 MG TABLET PO (21:28)
[2023-12-31] MEDS: Omeprazole 20 MG CAPSULE.DR PO (21:28)
[2023-12-31] MEDS: cefTRIAXone sodium 1 GM in 0.9 % Sodium Chloride 50 ML IV (21:29)
[2024-01-01] VITALS (9 sets, daily range): BP systolic 117–157; BP diastolic 60–72; PULSE 72–104; RESP 16–20; TEMP 35.9–36.9; O2SAT 92–98
[2024-01-01] MEDS: Docusate Sodium 100 MG CAPSULE PO ×2 (09:00→22:01)
[2024-01-01] MEDS: 0.9 % Sodium Chloride Flush 3 ML SYRINGE IVFLUSH ×3 (09:01→21:57)
[2024-01-01] MEDS: Folic Acid 1 MG TABLET PO (09:01)
--- NOTE | 2024-01-01 10:21 | P.PNIM_ITS ---
Subjective Subjective Date of Service: 01/01/24 Interval History: successful prep Physical Exam 2 Vital Signs: Vital Signs: Last Vital Signs Temp 96.6 F L 01/01/24 07:28 Pulse 72 01/01/24 07:28 Resp 20 01/01/24 07:28 BP 146/64 H 01/01/24 07:28 Pulse Ox 92 01/01/24 07:28 O2 Del Method Nasal Cannula 01/01/24 07:28 O2 Flow Rate 2 01/01/24 07:28 BMI result Body Mass Index 27.3 Const: General: cooperative, comfortable and no acute distress GI: Other: Soft,NT, no mass Objective Data Active Medications Acetaminophen (Acetaminophen 325 Mg Tablet) 650 mg PO Q6H PRN PRN Reason: Pain, Mild (Pain Scale 1-3) Atorvastatin Calcium (Atorvastatin Calcium 10 Mg Tablet) 10 mg PO BEDTIME [facility] [place] Last Admin: 12/31/23 21:28 Dose: 10 mg Documented By: TASHI Divalproex Sodium (Divalproex Sodium Er 500 Mg Tab.Er.24h) 500 mg PO BEDTIME [facility] [place] Last Admin: 12/31/23 21:27 Dose: 500 mg Documented By: TASHI Docusate Sodium (Docusate Sodium 100 Mg Capsule) 100 mg PO BID [facility] [place] Last Admin: 01/01/24 09:00 Dose: 100 mg Documented By: WISAM Folic Acid (Folic Acid 1 Mg Tablet) 1 mg PO DAILY [facility] [place] Last Admin: 01/01/24 09:01 Dose: 1 mg Documented By: WISAM Ceftriaxone Sodium 1 gm/ (Sodium Chloride) 50 mls @ 100 mls/hr IV Q24H [facility] [place] Last Infusion: 01/01/24 01:48 Dose: Infused Documented By: TASHI Midodrine (Midodrine Hcl 5 Mg Tablet) 5 mg PO TID PRN PRN Reason: SBP < 90 Non-Formulary Medication (Risperidone Microspheres) 25 mg IM Q14D [facility] [place] Nortriptyline HCl (Nortriptyline Hcl 10 Mg Capsule) 10 mg PO BEDTIME [facility] [place] Last Admin: 12/31/23 21:28 Dose: 10 mg Documented By: TASHI Omeprazole (Omeprazole 20 Mg Capsule.Dr) 20 mg PO BEDTIME [facility] [place] Last Admin: 12/31/23 21:28 Dose: 20 mg Documented By: TASHI Ondansetron HCl (Ondansetron Odt 4 Mg Tab.Rapdis) 4 mg TRANSLINGU Q6H PRN PRN Reason: Nausea And Vomiting Ondansetron HCl (Ondansetron Hcl 4 Mg/2 Ml Vial) 4 mg IVPUSH Q8H PRN PRN Reason: Nausea and Vomiting Polyethylene Glycol (Polyethylene Glycol 3350 17 Gm Powd.Pack) 17 gm PO BID [facility] [place] Last Admin: 12/31/23 08:57 Dose: 17 gm Documented By: WISAM Sodium Chloride (0.9 % Sodium Chloride Flush 3 Ml Syringe) 3 ml IVFLUSH QSHIFT [facility] [place] Last Admin: 01/01/24 09:01 Dose: 3 ml Documented By: WISAM Labs 12/31/23 19:36 12/31/23 19:36 Labs: Laboratory Results - last 24 hr 12/31/23 19:36 MCV 90.6 MCH 31.6 MCHC 34.9 RDW 17.7 H Plt Count TNP MPV 10.1 Absolute Nucleated RBC 0.000 Nucleated RBC % (auto) 0.0 Anion Gap 16 Estim Creat Clear Calc 67.5 Estimated GFR > 60 Random Glucose 101 Calcium 8.2 L Microbiology Microbiology Results: Microbiology 12/29/23 13:51 Blood Culture - Preliminary Blood - Venous No growth after 48 hours. 12/29/23 13:50 Blood Culture - Preliminary Blood - Venous No growth after 48 hours. 12/29/23 17:50 Urine Culture - Final Urine clean catch - Clean Catch Midstream Assessment and Plan (1) ABLA (acute blood loss anemia): Status: Acute (2) Acute lower GI bleeding: Status: Acute (3) Mass in rectum: Status: Acute Plan 78F PMH HTN, HLD, cognitive disorder, hx of TIA, hx of DVT/PE, hx of breast cancer, GERD, and bipolar I disorder with recent admission to hospitalist service from 11/28-12/08 due to left hip fracture s/p hemiarthroplasty on 12/03 also found to have pulmonary embolism with type 2 NSTEMI with IVC filter placed 12/01 and started on Eliquis presented lightheaded found to have severe anemia Acute blood loss anemia due to GI bleed H/H on arrival 5.5/17.4%. Transfuse 2 units PRBCs, repeated stable CT abdomen/pelvis results negative for perforation but show a cecal mass with possible bleeding stool occult blood positive GI rec holding Eliquis, upper and lower endoscopies 01/01/24 po PPI acute hypotension resolved, not due to sepsis Acute kidney injury likely 09/26 hypotension resolved SIRS criteria resolved, no sepsis acute UTI mixed john in culture, culture from 12/25 ecolic sensitive to rocephin IV ceftriaxone (initiated 12/28) acute lactic acidosis resolved Hx hypertension holding lisinopril, low normal bp HLD continue statin recent PE/DVT diagnosed 11/28 s/p IVC filter placement 12/01 hold Eliquis recent left hip fracture s/p hemiarthroplasty PT recommending str DVT prophylaxis- SCPs due to gi bleed DNR/DNI reason for continued hospitalization: plan for scope inpatient due to seveirty of anemia Quality Stroke Does the patient have a stroke diagnosis?: No VTE Prior VTE?: No VTE Risk Level:: Medical - moderate - high VTE Device Contraindication: N/A - Device Ordered VTE Drug Contraindication: Treatment Not Indicated
[2024-01-01 10:52] LABS: Hematocrit 26.2 % (37.0-47.0); Hemoglobin 8.6 g/dl (12.0-16.0); Mean Corpuscular HGB Conc 32.8 g/dl (31.0-35.0); Mean Corpuscular Hemoglobin 31.4 pg (27.0-33.0); Mean Corpuscular Volume 95.6 fL (80.0-98.0); Mean Platelet Volume 11.3 fL (9.4-12.3); Platelet Count 128 X10*3/uL (160-400); Red Blood Count 2.74 X10*6/uL (4.20-5.50); Red Cell Distribution Width 17.4 % (11.0-16.0)
[2024-01-01 10:55] LABS: Anion Gap 15 (12-20); Blood Urea Nitrogen 17 mg/dL (9-16); Calcium 8.3 mg/dL (8.4-10.2); Carbon Dioxide 18 mmol/L (22-29); Chloride 115 mmol/L (96-108); Creatinine Clr Calc Pharmacy 75.1; Estimated Glomerular Filt Rate > 60; Glucose Fasting 76 mg/dL (60-99); Potassium 3.6 mmol/L (3.3-5.1); Sodium 144 mmol/L (135-145)
--- NOTE | 2024-01-01 14:15 | HO.ANESPROP2 ---
HPI - Anesthesia Eval Consult details Narrative: 78 yo female patient with ? GI bleed. For EGD, Colonoscopy. S/p left hip surgery 12/16 in setting of submassive pulmonary embolus. IVC filter was placed during that admission and patient was discharged on eliquis. Readmitted a few days days ago with bleeding. H/H 5.8/18.1. S/p 2 units PRBCs H/H today 8.6/26.2 Lactic acid on admission 3.6 Repeat 1.4 PMFSH Active Problems Active Problems: All Active Problems (Updated 12/30/23 @ 23:36 by Alex Howard MD) GI bleed (Acute) Abnormal CT scan, colon (Acute) Mass in rectum (Acute) ABLA (acute blood loss anemia) (Acute) Acute lower GI bleeding (Acute) History of left hip hemiarthroplasty (Acute) Pulmonary embolism (Acute) Fracture of left femur (Acute) Chronic low back pain (Acute) Rash of neck (Acute) Hearing impairment (Acute) Generalized muscle weakness (Acute) Bipolar disorder (Acute) Cognitive disorder (Acute) Tremors of nervous system (Acute) Gait disorder (Acute) Obesity (Acute) Hyperlipidemia (Acute) HTN (hypertension) (Acute) GERD (gastroesophageal reflux disease) (Acute) Breast cancer (Acute) Bipolar 1 disorder (Acute) Past Medical History Medical History Pre-op chest exam Preop cardiovascular exam NSTEMI (non-ST elevated myocardial infarction) Chronic low back pain Rash of neck Hearing impairment Generalized muscle weakness Cognitive disorder TIA (transient ischemic attack) Tremors of nervous system Gait disorder DVT (deep venous thrombosis) Obesity Hyperlipidemia HTN (hypertension) GERD (gastroesophageal reflux disease) Breast cancer Bipolar 1 disorder Family History Family History Brother Alcohol abuse Polio Substance use disorder Brother Cancer Sister Stroke Mental health disorder Mother HTN (hypertension) Sister Cancer Family history of problems with anesthesia: No Surgical History Surgical History H/O mastectomy History of Problems with Anesthesia: No Social History Social History Household Members: None Household Members Other:: [facility] Housing: Condominium Do you presently have visiting nurse or other home services: Yes Unable to assess alcohol history related to: Refusing to respond Alcohol intake: current Alcohol type: wine Patient Tobacco Use Status: Former Tobacco user Quit Date: 11 years ago Tobacco use type: Smokeless Tobacco Years Smoked: 30 e-Cigarette/Vaping Use: Never Used Second Hand Smoke Exposure: No Advance Directives Date on File: 05/01/22 service: No Sexual orientation: Straight/Heterosexual Cognitive needs: No Hearing needs: No Vision needs: Yes Meds Allergies Allergy/AdvReac Type Severity Reaction Status Date / Time No Known Allergies Allergy Verified 12/29/23 12:41 [No Known Allergies*] Active Medications: Current Medications Acetaminophen (Acetaminophen 325 Mg Tablet) 650 mg PO Q6H PRN PRN Reason: Pain, Mild (Pain Scale 1-3) Atorvastatin Calcium (Atorvastatin Calcium 10 Mg Tablet) 10 mg PO BEDTIME [facility] Last Admin: 12/31/23 21:28 Dose: 10 mg Divalproex Sodium (Divalproex Sodium Er 500 Mg Tab.Er.24h) 500 mg PO BEDTIME [facility] Last Admin: 12/31/23 21:27 Dose: 500 mg Docusate Sodium (Docusate Sodium 100 Mg Capsule) 100 mg PO BID [facility] Last Admin: 01/01/24 09:00 Dose: 100 mg Folic Acid (Folic Acid 1 Mg Tablet) 1 mg PO DAILY [facility] Last Admin: 01/01/24 09:01 Dose: 1 mg Ceftriaxone Sodium 1 gm/ (Sodium Chloride) 50 mls @ 100 mls/hr IV Q24H [facility] Last Infusion: 01/01/24 01:48 Dose: Infused Midodrine (Midodrine Hcl 5 Mg Tablet) 5 mg PO TID PRN PRN Reason: SBP < 90 Non-Formulary Medication (Risperidone Microspheres) 25 mg IM Q14D [facility] Nortriptyline HCl (Nortriptyline Hcl 10 Mg Capsule) 10 mg PO BEDTIME [facility] Last Admin: 12/31/23 21:28 Dose: 10 mg Omeprazole (Omeprazole 20 Mg Capsule.Dr) 20 mg PO BEDTIME [facility] Last Admin: 12/31/23 21:28 Dose: 20 mg Ondansetron HCl (Ondansetron Odt 4 Mg Tab.Rapdis) 4 mg TRANSLINGU Q6H PRN PRN Reason: Nausea And Vomiting Ondansetron HCl (Ondansetron Hcl 4 Mg/2 Ml Vial) 4 mg IVPUSH Q8H PRN PRN Reason: Nausea and Vomiting Polyethylene Glycol (Polyethylene Glycol 3350 17 Gm Powd.Pack) 17 gm PO BID [facility] Last Admin: 12/31/23 08:57 Dose: 17 gm Sodium Chloride (0.9 % Sodium Chloride Flush 3 Ml Syringe) 3 ml IVFLUSH QSHIFT [facility] Last Admin: 01/01/24 09:01 Dose: 3 ml Home Medications ?Medication ?Instructions ?Recorded ?Confirmed ?Last Taken ?Type folic acid 1 mg tablet 1 mg PO DAILY 09/30/22 12/29/23 11/28/23 History risperidone microspheres 25 mg/2 25 mg IM Q14D 09/30/22 12/29/23 11/27/23 History mL intramuscular susp,ext release (Risperdal Consta) nortriptyline 10 mg capsule 10 mg PO BEDTIME 08/15/23 12/29/23 11/28/23 History docusate sodium 100 mg capsule 100 mg PO BID 11/29/23 12/29/23 11/28/23 History furosemide 20 mg tablet 20 mg PO DAILY 11/29/23 12/29/23 11/28/23 History lisinopril 5 mg tablet 5 mg PO DAILY 11/29/23 12/29/23 11/28/23 History Lactobacillus acidophilus 1 cap PO BID 12/29/23 12/29/23 Unknown History (Acidophilus capsule) apixaban 5 mg tablet (Eliquis) 5 mg PO BID 12/29/23 12/29/23 Unknown History divalproex 500 mg tablet,extended 500 mg PO BEDTIME 12/29/23 12/29/23 Unknown History release 24 hr midodrine 5 mg tablet 5 mg PO TID PRN SBP < 90 12/29/23 12/29/23 Unknown History nitrofurantoin 100 mg PO BID 12/29/23 12/29/23 Unknown History monohydrate/macrocrystals 100 mg capsule ondansetron 4 mg disintegrating 4 mg PO Q6H PRN Nausea And Vomiting 12/29/23 12/29/23 Unknown History tablet tramadol 25 mg tablet 25 mg PO Q6H PRN Pain 12/29/23 12/29/23 Unknown History Exam Height,Weight and Vital Signs: Height 5 ft 4 in Weight 72.2 kg Last Vital Signs Temp 98.3 F 01/01/24 13:36 Pulse 96 01/01/24 13:36 Resp 16 01/01/24 13:36 BP 149/64 H 01/01/24 13:36 Pulse Ox 98 01/01/24 13:36 O2 Del Method Nasal Cannula 01/01/24 13:36 O2 Flow Rate 1 01/01/24 13:36 Pertinent Lab Results Pertinent Lab Results: Laboratory Tests 12/29/23 12/29/23 12/29/23 12:47 13:50 13:53 WBC 12.0 H RBC 1.83 L Hgb 5.8 L* Hct 18.1 L* MCV 98.9 H MCH 31.7 MCHC 32.0 RDW 17.2 H Plt Count 272 MPV 10.0 Immature Gran % (Auto) 0.6 H Neut % (Auto) 84.7 H Lymph % (Auto) 10.4 L [place] % (Auto) 4.1 Eos % (Auto) 0.1 Baso % (Auto) 0.1 Lymph # (Auto) 1.3 [place] # (Auto) 0.5 Eos # (Auto) 0.0 Baso # (Auto) 0.0 Abs Immat Gran (auto) 0.07 H Absolute Neuts (auto) 10.2 H Absolute Nucleated RBC 0.000 Nucleated RBC % (auto) 0.0 Smear Tech's Comments PT 13.8 H INR 1.1 APTT 29.9 Sodium 137 Potassium 5.1 D Chloride 106 Carbon Dioxide 17 L Anion Gap 19 BUN 65 H Creatinine 1.46 H Estim Creat Clear Calc 32.0 Estimated GFR 35 POC Glucose 199 H Random Glucose 184 H Fasting Glucose Lactic Acid 3.6 H* Lactic Acid F/U @ 2Hr Lactic Acid F/U @ 4Hr Calcium 9.1 Magnesium 2.4 Iron TIBC % Saturation Unsat Iron Binding Total Bilirubin 0.3 AST 21 ALT 9 Alkaline Phosphatase 75 Total Protein 6.4 L Albumin 3.2 L Urine Color Urine Appearance Urine pH Ur Specific [place] Urine Protein Urine Glucose (UA) Urine Ketones Urine Blood Urine Nitrite Ur Leukocyte Esterase Urine RBC Urine WBC Ur Squamous Epith Cells Urine Bacteria Hyaline Casts Stool Occult Blood POSITIVE Influenza Type A (PCR) NEGATIVE Influenza Type B (PCR) NEGATIVE RSV RNA Qual (PCR) NEGATIVE SARS-CoV-2 RNA (RT-PCR) NEGATIVE Blood Type Antibody Screen Crossmatch 05/06/24 05/06/24 05/06/24 16:42 17:31 19:15 WBC 10.0 RBC 3.06 L D Hgb 9.6 L D Hct 27.8 L D MCV 90.8 D MCH 31.4 MCHC 34.5 RDW 16.9 H Plt Count 202 D MPV 9.7 Immature Gran % (Auto) 0.6 H Neut % (Auto) 78.9 H Lymph % (Auto) 15.2 L [place] % (Auto) 4.8 Eos % (Auto) 0.3 Baso % (Auto) 0.2 Lymph # (Auto) 1.5 [place] # (Auto) 0.5 Eos # (Auto) 0.0 Baso # (Auto) 0.0 Abs Immat Gran (auto) 0.06 H Absolute Neuts (auto) 7.9 Absolute Nucleated RBC 0.000 Nucleated RBC % (auto) 0.0 Smear Tech's Comments PT INR APTT Sodium Potassium Chloride Carbon Dioxide Anion Gap BUN Creatinine Estim Creat Clear Calc Estimated GFR POC Glucose Random Glucose Fasting Glucose Lactic Acid Lactic Acid F/U @ 2Hr 2.3 H* Lactic Acid F/U @ 4Hr 1.4 Calcium Magnesium Iron TIBC % Saturation Unsat Iron Binding Total Bilirubin AST ALT Alkaline Phosphatase Total Protein Albumin Urine Color Yellow Urine Appearance Clear Urine pH 5.5 Ur Specific [place] 1.010 Urine Protein Negative Urine Glucose (UA) Negative Urine Ketones Negative Urine Blood Negative Urine Nitrite Positive H Ur Leukocyte Esterase Large (3+) H Urine RBC 0-2 Urine WBC >50 H Ur Squamous Epith Cells 0-2 Urine Bacteria 2+ Hyaline Casts 0-2 Stool Occult Blood Influenza Type A (PCR) Influenza Type B (PCR) RSV RNA Qual (PCR) SARS-CoV-2 RNA (RT-PCR) Blood Type A Positive Antibody Screen NEGATIVE Crossmatch See Detail 12/30/23 12/30/23 12/30/23 04:21 13:50 21:23 WBC 9.8 10.1 8.8 RBC 2.71 L 2.66 L 2.58 L Hgb 8.4 L 8.4 L 8.0 L Hct 24.0 L 24.3 L 23.7 L MCV 88.6 91.4 91.9 MCH 31.0 31.6 31.0 MCHC 35.0 34.6 33.8 RDW 17.2 H 18.0 H 17.9 H Plt Count 197 192 165 MPV 9.8 10.2 10.3 Immature Gran % (Auto) 0.7 H Neut % (Auto) 75.0 H Lymph % (Auto) 17.1 L [place] % (Auto) 5.9 Eos % (Auto) 1.0 Baso % (Auto) 0.3 Lymph # (Auto) 1.7 [place] # (Auto) 0.6 Eos # (Auto) 0.1 Baso # (Auto) 0.0 Abs Immat Gran (auto) 0.07 H Absolute Neuts (auto) 7.3 Absolute Nucleated RBC 0.000 0.020 H 0.080 H Nucleated RBC % (auto) 0.0 0.2 0.9 H Smear Tech's Comments VERIFIED PT INR APTT Sodium 142 Potassium 4.1 Chloride 114 H Carbon Dioxide 18 L Anion Gap 14 BUN 51 H Creatinine 0.91 Estim Creat Clear Calc 51.3 Estimated GFR > 60 POC Glucose Random Glucose 91 Fasting Glucose Lactic Acid Lactic Acid F/U @ 2Hr Lactic Acid F/U @ 4Hr Calcium 8.4 D Magnesium Iron 38 TIBC 232 % Saturation 16 Unsat Iron Binding 194 Total Bilirubin AST ALT Alkaline Phosphatase Total Protein Albumin Urine Color Urine Appearance Urine pH Ur Specific [place] Urine Protein Urine Glucose (UA) Urine Ketones Urine Blood Urine Nitrite Ur Leukocyte Esterase Urine RBC Urine WBC Ur Squamous Epith Cells Urine Bacteria Hyaline Casts Stool Occult Blood Influenza Type A (PCR) Influenza Type B (PCR) RSV RNA Qual (PCR) SARS-CoV-2 RNA (RT-PCR) Blood Type Antibody Screen Crossmatch 12/31/23 01/01/24 19:36 10:14 WBC 9.2 7.0 RBC 2.56 L 2.74 L Hgb 8.1 L 8.6 L Hct 23.2 L 26.2 L MCV 90.6 95.6 D MCH 31.6 31.4 MCHC 34.9 32.8 RDW 17.7 H 17.4 H Plt Count TNP 128 L MPV 10.1 11.3 Immature Gran % (Auto) Neut % (Auto) Lymph % (Auto) [place] % (Auto) Eos % (Auto) Baso % (Auto) Lymph # (Auto) [place] # (Auto) Eos # (Auto) Baso # (Auto) Abs Immat Gran (auto) Absolute Neuts (auto) Absolute Nucleated RBC 0.000 0.000 Nucleated RBC % (auto) 0.0 0.0 Smear Tech's Comments PT INR APTT Sodium 143 144 Potassium 4.0 3.6 Chloride 116 H 115 H Carbon Dioxide 15 L 18 L Anion Gap 16 15 BUN 24 H 17 H Creatinine 0.69 0.62 Estim Creat Clear Calc 67.5 75.1 Estimated GFR > 60 > 60 POC Glucose Random Glucose 101 Fasting Glucose 76 Lactic Acid Lactic Acid F/U @ 2Hr Lactic Acid F/U @ 4Hr Calcium 8.2 L 8.3 L Magnesium Iron TIBC % Saturation Unsat Iron Binding Total Bilirubin AST ALT Alkaline Phosphatase Total Protein Albumin Urine Color Urine Appearance Urine pH Ur Specific [place] Urine Protein Urine Glucose (UA) Urine Ketones Urine Blood Urine Nitrite Ur Leukocyte Esterase Urine RBC Urine WBC Ur Squamous Epith Cells Urine Bacteria Hyaline Casts Stool Occult Blood Influenza Type A (PCR) Influenza Type B (PCR) RSV RNA Qual (PCR) SARS-CoV-2 RNA (RT-PCR) Blood Type Antibody Screen Crossmatch Airway Mallampati Class: III TM Dist: >3cm Neck ROM: Full Loose/Missing/Broken Teeth: No (Patient denies broken, loose, missing teeth) Heart: RRR Lungs: CTAB Assessment and Plan Assessment Anesthesia Assessment: Anesthesia Plan Discussed and Chart Reviewed Final Anesthetic Review Family History of Problems with Anesthesia: No History of Problems with Anesthesia: No NPO: Yes ASA Class: IV Final Preanesthetic Review: No Changes in Pt Med Stat, Meds/Allgs Chart Reviewed, Consent Obtained/Reviewed and Anes Risks/Benef Reviewed Patient Risk: Intermediate Procedure Risk: Low Assessment/Block/Sedation in SS: Assess/Block/Sedation-SS Anesthetic Plan Anesthetic Plan: MAC: and TIVA Disposition: Standard PACU and Inp. Admit - Standard Bed
--- NOTE | 2024-01-01 15:43 | PM.OP ---
Brief Operative Note Date of Service: 01/01/24 Pre-op diagnosis: Anemia Post-op diagnosis: other (Ascending colon mass, Hiatal hernia) Procedure: EGD, Colonoscopy to the cecum with biopsies Surgeon: Alex Howard MD Anesthesia: MAC Was an Offset Label Rewinder used for this Procedure?: No Estimated blood loss (mL): 2.0 Pathology: other (A. Ascending colon mass) Condition: stable Disposition: PACU
--- NOTE | 2024-01-01 15:45 | P.EN_ITS ---
Event Note Date of Service: 01/01/24 Event Note: GI-Full note dictated Findings: EGD 1. Hiatal hernia, otherwise WNL Colonoscopy to the cecum with biopsies 1. Large, friable, and ulcerated nonobstructing mass in the proximal to mid- ascending colon c/w neoplasm--biopsies taken. 2. Small polyps in cecum not bx nor removed given the above finding 3. Prep was relatively poor in various parts of the colon limiting the view otherwise, but no other large lesions were suspected. Imp: Colon cancer of ascending colon Rec: Surgery consult, check path, full liquids for now and do not advance diet until seen by surgery so they can decide on timing of surgery and need for further bowel cleanout preoperatively, follow up labs including a CEA level. D/W patient and her sister, Elinor, in detail. Thanks Time Spent With Patient Time: Total time managing care of this patient today ____ minutes.
[2024-01-01] MEDS: Lactated Ringers 1,000 ML 100 ML IVCONT (16:56)
--- NOTE | 2024-01-01 17:08 | OP_ITS ---
DATE OF SERVICE: 01/01/2024 SURGEON: Alex Howard MD INDICATIONS: The patient presents for evaluation of anemia, heme-positive stool, and abnormal CT scan of colon. Full consent has been obtained from her for this, including risks of bleeding and perforation. PREOPERATIVE DIAGNOSIS: POSTOPERATIVE DIAGNOSIS: PROCEDURE PERFORMED: ESTIMATED BLOOD LOSS: COMPLICATIONS: ANESTHESIA: Monitored anesthesia care. ASSISTANTS: SPECIMENS: PREOPERATIVE DIAGNOSES: Anemia, heme-positive stool, and abnormal CT scan of colon. POSTOPERATIVE DIAGNOSES: Anemia, heme-positive stool, abnormal CT scan of colon, hiatal hernia, ascending colon mass consistent with neoplasm. PROCEDURES PERFORMED: Esophagogastroduodenoscopy, and colonoscopy to the cecum with biopsies. DESCRIPTION OF PROCEDURE: The patient was placed in the left lateral decubitus position. The Olympus video gastroscope was passed in the posterior oropharynx and upper esophagus under direct vision. The scope was passed slowly into the distal esophagus. The gastroesophageal junction appeared at 33 cm. There was no sign of any esophagitis. The scope entered the stomach. There was a small to moderate-sized hiatal hernia. The scope was advanced to pylorus and the duodenum was cannulated the descending portion. The duodenum including the bulb appeared normal without mass or ulceration. The scope was withdrawn back to the stomach. The gastric antrum and body appeared normal with good peristalsis. The scope was retroflexed visualizing the proximal stomach carefully, which appeared normal, without any sign of mass or ulceration. The scope was straightened and withdrawn back to the esophagus. The esophageal mucosa appeared normal. Scope was withdrawn from the patient. She was turned around for the colonoscopy. The digital rectal exam revealed no abnormalities. The Olympus video pediatric colonoscope was then entered into the rectum and advanced to the cecum with the assistance of abdominal pressure. Preparation throughout the colon was limited due to a lot of liquid brown stool. However, once in the cecum, I did identify cecal pouch with appendiceal orifice. After a lot of irrigation, I could visualize appendiceal orifice and the great majority of the cecum appeared normal other than some small, less than 10 mm polyps, which were not biopsied nor removed given the findings described below. There was transillumination of light deep in the right lower quadrant. The scope was then slowly withdrawn, assessing all mucosal surfaces carefully. The ileocecal valve appeared normal. In the mid to proximal ascending colon, was a large semi-circumferential ulcerated friable lesion consistent with neoplasm. Biopsies were obtained. The area was not marked with ink given its location. The remainder of the colon was inspected as best as possible and no other lesions were noted, but again the prep was limited in various areas despite a lot of irrigation and suctioning. There was some diverticulosis noted in the sigmoid colon. In the rectum, the scope was retroflexed visualizing internal hemorrhoids, but no other pathology. The rectal mucosa appeared normal. The scope was straightened and withdrawn from the patient. She tolerated both procedures well and was returned to the recovery area in stable condition. IMPRESSION: 1. Ascending colon mass consistent with neoplasm, status post biopsy. 2. Diverticulosis. 3. Hiatal hernia. PLAN: The results of the biopsies will be checked. She will have a surgical consultation and will obviously undergo surgery in the near future. I will continue a full liquid diet for the time being given the difficulty in cleaning her out and the upcoming bowel surgery. She will have followup laboratories including a CEA level. I will continue her PPI. This has been discussed with the patient and her sister, Chasity Fall in detail. MD MONET Olivo/DEMETRIUS / [id number]
--- NOTE | 2024-01-01 17:21 | P.CONGS_ITS ---
History of Present Illness Consult details Consult date: 01/01/24 Requesting physician: Alex Howard Narrative: 62-year-old female patient with a recent fall resulting in hip fracture subsequently going to rehab. The patient developed progressive weakness and was found to be anemic. She presented to the ED for further evaluation. CT abdomen and pelvis revealed thickening of the cecum suggestive of a neoplasm. She underwent evaluation today with colonoscopy (Dr. Howard) and was found to have a right colon mass highly suggestive of malignancy. Biopsies of the lesion were performed and are pending. Surgical consultation is requested for management of the right colon lesion. Review of Systems 2 Review of Systems: Yes all other systems are reviewed and are negative Constitutional: Constitutional: Denies chills, Denies fever(s), Denies headache(s), Denies poor appetite and Reports weakness ENT: Denies headache(s) Cardiovascular: Cardiovascular: Denies chest pain, Denies irregular heart rhythm, Denies palpitations and Denies dyspnea Respiratory: Respiratory: Denies cough, Denies excessive phlegm production and Denies dyspnea Gastrointestinal: Gastrointestinal: Denies abdominal pain, Denies bloating, Denies change in bowel habits, Denies constipation, Denies heartburn, Denies diarrhea, Denies nausea and Denies vomiting Genitourinary: Genitourinary: Denies urinary frequency Musculoskeletal: Musculoskeletal: Denies back pain, Denies muscle weakness and Denies numbness Integumentary/Breasts: Skin/Breast: Denies changing lesions and Denies unusual bruising Neurologic: Denies headache(s), Denies numbness, Denies paresthesias and Reports weakness Psychiatric: Psychiatric: Denies anxiety and Denies depression Endocrine: Endocrine: Denies palpitations Hematologic/Lymphatic: Hematologic/Lymphatic: Denies lymphadenopathy [facility] Past Medical History Medical History Pre-op chest exam Preop cardiovascular exam NSTEMI (non-ST elevated myocardial infarction) Chronic low back pain Rash of neck Hearing impairment Generalized muscle weakness Cognitive disorder TIA (transient ischemic attack) Tremors of nervous system Gait disorder DVT (deep venous thrombosis) Obesity Hyperlipidemia HTN (hypertension) GERD (gastroesophageal reflux disease) Breast cancer Bipolar 1 disorder Family History Family History Brother Alcohol abuse Polio Substance use disorder Brother Cancer Sister Stroke Mental health disorder Mother HTN (hypertension) Sister Cancer Surgical History Surgical History H/O mastectomy Social History Social History Household Members: None Household Members Other:: [facility] Housing: [facility] Do you presently have visiting nurse or other home services: Yes Unable to assess alcohol history related to: Refusing to respond Alcohol intake: current Alcohol type: wine Patient Tobacco Use Status: Former Tobacco user Quit Date: 11 years ago Tobacco use type: Smokeless Tobacco Years Smoked: 30 e-Cigarette/Vaping Use: Never Used Second Hand Smoke Exposure: No Advance Directives Date on File: 05/01/22 service: No Sexual orientation: Straight/Heterosexual Cognitive needs: No Hearing needs: No Vision needs: Yes Meds Allergies Allergy/AdvReac Type Severity Reaction Status Date / Time No Known Allergies Allergy Verified 12/29/23 12:41 [No Known Allergies*] Active Medications: Current Medications Acetaminophen (Acetaminophen 325 Mg Tablet) 650 mg PO Q6H PRN PRN Reason: Pain, Mild (Pain Scale 1-3) Atorvastatin Calcium (Atorvastatin Calcium 10 Mg Tablet) 10 mg PO BEDTIME [facility] Last Admin: 12/31/23 21:28 Dose: 10 mg Divalproex Sodium (Divalproex Sodium Er 500 Mg Tab.Er.24h) 500 mg PO BEDTIME [facility] Last Admin: 12/31/23 21:27 Dose: 500 mg Docusate Sodium (Docusate Sodium 100 Mg Capsule) 100 mg PO BID [facility] Last Admin: 01/01/24 09:00 Dose: 100 mg Folic Acid (Folic Acid 1 Mg Tablet) 1 mg PO DAILY [facility] Last Admin: 01/01/24 09:01 Dose: 1 mg Ceftriaxone Sodium 1 gm/ (Sodium Chloride) 50 mls @ 100 mls/hr IV Q24H [facility] Last Infusion: 01/01/24 01:48 Dose: Infused Lactated Ringer's (Lr) 1,000 mls @ 100 mls/hr IVCONT .Q10H [facility] Last Admin: 01/01/24 16:56 Dose: 100 mls/hr Midodrine (Midodrine Hcl 5 Mg Tablet) 5 mg PO TID PRN PRN Reason: SBP < 90 Non-Formulary Medication (Risperidone Microspheres) 25 mg IM Q14D [facility] Nortriptyline HCl (Nortriptyline Hcl 10 Mg Capsule) 10 mg PO BEDTIME [facility] Last Admin: 12/31/23 21:28 Dose: 10 mg Omeprazole (Omeprazole 20 Mg Capsule.Dr) 20 mg PO BEDTIME [facility] Last Admin: 12/31/23 21:28 Dose: 20 mg Ondansetron HCl (Ondansetron Odt 4 Mg Tab.Rapdis) 4 mg TRANSLINGU Q6H PRN PRN Reason: Nausea And Vomiting Ondansetron HCl (Ondansetron Hcl 4 Mg/2 Ml Vial) 4 mg IVPUSH Q8H PRN PRN Reason: Nausea and Vomiting Ondansetron HCl (Ondansetron Hcl 4 Mg/2 Ml Vial) 4 mg IVPUSH ONCE PRN PRN Reason: Nausea and Vomiting Stop: 01/01/24 21:14 Polyethylene Glycol (Polyethylene Glycol 3350 17 Gm Powd.Pack) 17 gm PO BID [facility] Last Admin: 12/31/23 08:57 Dose: 17 gm Sodium Chloride (0.9 % Sodium Chloride Flush 3 Ml Syringe) 3 ml IVFLUSH QSHIFT [facility] Last Admin: 01/01/24 16:49 Dose: 3 ml Home Medications ?Medication ?Instructions ?Recorded ?Confirmed ?Last Taken ?Type folic acid 1 mg tablet 1 mg PO DAILY 09/30/22 12/29/23 11/28/23 History risperidone microspheres 25 mg/2 25 mg IM Q14D 09/30/22 12/29/23 11/27/23 History mL intramuscular susp,ext release (Risperdal Consta) nortriptyline 10 mg capsule 10 mg PO BEDTIME 08/15/23 12/29/23 11/28/23 History docusate sodium 100 mg capsule 100 mg PO BID 11/29/23 12/29/23 11/28/23 History furosemide 20 mg tablet 20 mg PO DAILY 11/29/23 12/29/23 11/28/23 History lisinopril 5 mg tablet 5 mg PO DAILY 11/29/23 12/29/23 11/28/23 History Lactobacillus acidophilus 1 cap PO BID 12/29/23 12/29/23 Unknown History (Acidophilus capsule) apixaban 5 mg tablet (Eliquis) 5 mg PO BID 12/29/23 12/29/23 Unknown History divalproex 500 mg tablet,extended 500 mg PO BEDTIME 12/29/23 12/29/23 Unknown History release 24 hr midodrine 5 mg tablet 5 mg PO TID PRN SBP < 90 12/29/23 12/29/23 Unknown History nitrofurantoin 100 mg PO BID 12/29/23 12/29/23 Unknown History monohydrate/macrocrystals 100 mg capsule ondansetron 4 mg disintegrating 4 mg PO Q6H PRN Nausea And Vomiting 12/29/23 12/29/23 Unknown History tablet tramadol 25 mg tablet 25 mg PO Q6H PRN Pain 12/29/23 12/29/23 Unknown History Physical Exam 2 Vital Signs: Vital Signs: Last Vital Signs Temp 98.4 F 01/01/24 15:55 Pulse 93 01/01/24 16:10 Resp 16 01/01/24 16:10 BP 134/71 01/01/24 16:10 Pulse Ox 97 01/01/24 16:10 O2 Del Method Room Air 01/01/24 16:10 O2 Flow Rate 1 01/01/24 13:36 BMI result Body Mass Index 27.3 Const: General: cooperative and no acute distress Nutritional Appearance: w ell nourished Orientation/consciousness: patient oriented x3 Limitations: no limitations HEENT: Head: Yes normocephalic and Yes atraumatic Ears: hearing grossly normal bilaterally Resp: Effort & Inspection: normal respiratory effort, no audible wheezes, no cough and no respiratory distress Cardio: Jugular venous distension: no JVD GI: Inspection: Yes normal to inspection Palpation (GI): Soft to palpation, nontender, no guarding, not rigid and No hepatosplenomegaly present Skin: Other: Warm, dry, no rash Neuro: General: patient oriented x3 Extrem: General: Yes no clubbing, cyanosis or edema Results Labs 01/01/24 10:14 01/01/24 10:14 Labs: Abnormal lab results 12/31/23 01/01/24 Range/Units 19:36 10:14 RBC 2.56 L 2.74 L (4.20-5.50) X10*6/uL Hgb 8.1 L 8.6 L (12.0-16.0) g/dl Hct 23.2 L 26.2 L (37.0-47.0) % RDW 17.7 H 17.4 H (11.0-16.0) % Plt Count 128 L (160-400) X10*3/uL Chloride 116 H 115 H (96-108) mmol/L Carbon Dioxide 15 L 18 L (22-29) mmol/L BUN 24 H 17 H (9-16) mg/dL Calcium 8.2 L 8.3 L (8.4-10.2) mg/dL Short CBC 12/31/23 01/01/24 Range/Units 19:36 10:14 WBC 9.2 7.0 (4.8-10.8) X10*3/uL Hgb 8.1 L 8.6 L (12.0-16.0) g/dl Hct 23.2 L 26.2 L (37.0-47.0) % Plt Count TNP 128 L BMP 12/31/23 01/01/24 19:36 10:14 Sodium 143 144 Potassium 4.0 3.6 Chloride 116 H 115 H Carbon Dioxide 15 L 18 L BUN 24 H 17 H Creatinine 0.69 0.62 Calcium 8.2 L 8.3 L Urine 12/29/23 Range/Units 17:31 Urine Color Yellow Urine Appearance Clear Urine pH 5.5 (5.0-9.0) Ur Specific [place] 1.010 (1.005-1.025) Urine Protein Negative (Neg-Trace) mg/dL Urine Glucose (UA) Negative (Negative) mg/dL All other labs normal. Imaging Abdomen CT scan report/results: image reviewed CT scan - pelvis: image reviewed Assessment and Plan (1) GI bleed: Status: Acute Plan 78-year-old female patient with progressive weakness and anemia found to have a right colon lesion, probable colon cancer, path pending. Patient will require right hemicolectomy. She will need bowel prep prior to procedure. I will try to add patient on for early next week while still hospitalized. Discussed with the patient's healthcare proxy (Chasity Fall); she expressed understanding and agrees with the plan. Procedures Date of Service Date of Service: 01/01/24
[2024-01-01] MEDS: cefTRIAXone sodium 1 GM in 0.9 % Sodium Chloride 50 ML IV (21:59)
[2024-01-01] MEDS: Divalproex Sodium ER 500 MG TAB.ER.24H PO (22:00)
[2024-01-01] MEDS: Nortriptyline HCl 10 MG CAPSULE PO (22:01)
[2024-01-01] MEDS: Omeprazole 20 MG CAPSULE.DR PO (22:01)
[2024-01-01] MEDS: Atorvastatin Calcium 10 MG TABLET PO (22:01)
[2024-01-02] VITALS (9 sets, daily range): BP systolic 126–163; BP diastolic 60–74; PULSE 77–102; RESP 16–20; TEMP 36–36.8; O2SAT 94–98; BMI 27.3
[2024-01-02] MEDS: Lactated Ringers 1,000 ML 100 ML IVCONT ×2 (06:30→16:57)
--- NOTE | 2024-01-02 07:34 | P.PNGS_ITS ---
Subjective Subjective Date of Service: 01/02/24 Interval history: Patient resting comfortably. Physical Exam 2 Vital Signs: Vital Signs: Last Vital Signs Temp 98.3 F 01/02/24 04:00 Pulse 77 01/02/24 04:00 Resp 18 01/02/24 04:00 BP 163/74 H 01/02/24 04:00 Pulse Ox 96 01/02/24 04:00 O2 Del Method Room Air 01/02/24 04:00 O2 Flow Rate 1 01/01/24 13:36 BMI result Body Mass Index 27.3 Const: General: no acute distress Nutritional Appearance: well nourished Resp: Effort & Inspection: normal respiratory effort, no audible wheezes, no cough and no respiratory distress GI: Inspection: Yes normal to inspection Objective Data Active Medications Acetaminophen (Acetaminophen 325 Mg Tablet) 650 mg PO Q6H PRN PRN Reason: Pain, Mild (Pain Scale 1-3) Atorvastatin Calcium (Atorvastatin Calcium 10 Mg Tablet) 10 mg PO BEDTIME [facility] Last Admin: 01/01/24 22:01 Dose: 10 mg Documented By: TASHI Divalproex Sodium (Divalproex Sodium Er 500 Mg Tab.Er.24h) 500 mg PO BEDTIME [facility] Last Admin: 01/01/24 22:00 Dose: 500 mg Documented By: TASHI Docusate Sodium (Docusate Sodium 100 Mg Capsule) 100 mg PO BID [facility] Last Admin: 01/01/24 22:01 Dose: 100 mg Documented By: TASHI Folic Acid (Folic Acid 1 Mg Tablet) 1 mg PO DAILY [facility] Last Admin: 01/01/24 09:01 Dose: 1 mg Documented By: WISAM Ceftriaxone Sodium 1 gm/ (Sodium Chloride) 50 mls @ 100 mls/hr IV Q24H [facility] Last Infusion: 01/01/24 22:36 Dose: Infused Documented By: TASHI Lactated Ringer's (Lr) 1,000 mls @ 100 mls/hr IVCONT .Q10H [facility] Last Admin: 01/02/24 06:30 Dose: 100 mls/hr Documented By: SENG Midodrine (Midodrine Hcl 5 Mg Tablet) 5 mg PO TID PRN PRN Reason: SBP < 90 Non-Formulary Medication (Risperidone Microspheres) 25 mg IM Q14D [facility] Nortriptyline HCl (Nortriptyline Hcl 10 Mg Capsule) 10 mg PO BEDTIME [facility] Last Admin: 01/01/24 22:01 Dose: 10 mg Documented By: TASHI Omeprazole (Omeprazole 20 Mg Capsule.) 20 mg PO BEDTIME [facility] Last Admin: 01/01/24 22:01 Dose: 20 mg Documented By: TASHI Ondansetron HCl (Ondansetron Odt 4 Mg Tab.Rapdis) 4 mg TRANSLINGU Q6H PRN PRN Reason: Nausea And Vomiting Ondansetron HCl (Ondansetron Hcl 4 Mg/2 Ml Vial) 4 mg IVPUSH Q8H PRN PRN Reason: Nausea and Vomiting Polyethylene Glycol (Polyethylene Glycol 3350 17 Gm Powd.Pack) 17 gm PO BID [facility] Last Admin: 12/31/23 08:57 Dose: 17 gm Documented By: WISAM Sodium Chloride (0.9 % Sodium Chloride Flush 3 Ml Syringe) 3 ml IVFLUSH QSHIFT [facility] Last Admin: 01/01/24 21:57 Dose: 3 ml Documented By: TASHI Labs 01/02/24 08:59 01/02/24 08:59 Labs: Laboratory Results - last 24 hr 01/01/24 10:14 MCV 95.6 D MCH 31.4 MCHC 32.8 RDW 17.4 H Plt Count 128 L MPV 11.3 Absolute Nucleated RBC 0.000 Nucleated RBC % (auto) 0.0 Anion Gap 15 Estim Creat Clear Calc 75.1 Estimated GFR > 60 Fasting Glucose 76 Calcium 8.3 L Procedures Date of Service Date of Service: 01/02/24 Progress Note: A&P Assessment and plan (1) GI bleed: Status: Acute (2) Colon neoplasm: Status: Acute Plan 78-year-old female patient presenting with anemia found to have a right colon lesion by colonoscopy. Biopsies pending. We discussed hand assisted laparoscopic right hemicolectomy and I have placed her on the schedule for Friday afternoon. She will undergo a bowel prep on Friday. I reviewed the procedure, risks (including bleeding, infection, injury to surrounding organs, intestinal leak, blood clots, pneumonia), and benefits and she consents to the hand assisted laparoscopic right colectomy, possible open. Time Spent With Patient Time: Total time managing care of this patient today ____ minutes. Quality Stroke Does the patient have a stroke diagnosis?: No VTE Prior VTE?: No VTE Risk Level:: Medical - moderate - high VTE Device Contraindication: N/A - Device Ordered VTE Drug Contraindication: Treatment Not Indicated
[2024-01-02 09:38] LABS: Hematocrit 26.1 % (37.0-47.0); Hemoglobin 8.7 g/dl (12.0-16.0); Mean Corpuscular HGB Conc 33.3 g/dl (31.0-35.0); Mean Corpuscular Volume 92.9 fL (80.0-98.0); Mean Platelet Volume 9.5 fL (9.4-12.3); Platelet Count 201 X10*3/uL (160-400); Red Blood Count 2.81 X10*6/uL (4.20-5.50); Red Cell Distribution Width 17.2 % (11.0-16.0); White Blood Count 7.2 X10*3/uL (4.8-10.8)
--- NOTE | 2024-01-02 10:14 | MHC.CM.PN ---
Per ROUNDS discussion, Patient is not yet medically cleared for dc (surgery next week); PT is recommending STR and CM will follow.
[2024-01-02 10:15] LABS: Anion Gap 14 (12-20); Blood Urea Nitrogen 10 mg/dL (9-16); Calcium 8.7 mg/dL (8.4-10.2); Carbon Dioxide 19 mmol/L (22-29); Chloride 114 mmol/L (96-108); Estimated Glomerular Filt Rate > 60; Glucose Fasting 135 mg/dL (60-99); Potassium 3.4 mmol/L (3.3-5.1); Sodium 144 mmol/L (135-145)
[2024-01-02] MEDS: polyethylene glycoL 3350 17 GM POWD.PACK PO ×2 (10:22→20:48)
[2024-01-02] MEDS: Folic Acid 1 MG TABLET PO (10:22)
[2024-01-02] MEDS: 0.9 % Sodium Chloride Flush 3 ML SYRINGE IVFLUSH ×2 (10:22→23:26)
[2024-01-02] MEDS: Docusate Sodium 100 MG CAPSULE PO (10:22)
[2024-01-02 10:33] LABS: Carcinoembryonic Antigen < 1.73 ng/mL
--- NOTE | 2024-01-02 10:37 | P.PNIM_ITS ---
Subjective Subjective Date of Service: 01/02/24 Interval History: no further bleeding Physical Exam 2 Vital Signs: Vital Signs: Last Vital Signs Temp 97.6 F 01/02/24 08:00 Pulse 90 01/02/24 08:00 Resp 18 01/02/24 08:00 BP 126/63 01/02/24 08:00 Pulse Ox 96 01/02/24 08:00 O2 Del Method Room Air 01/02/24 08:00 O2 Flow Rate 1 01/01/24 13:36 BMI result Body Mass Index 27.3 Const: General: no acute distress Nutritional Appearance: well nourished Resp: Effort & Inspection: normal respiratory effort, no audible wheezes, no cough and no respiratory distress GI: Inspection: Yes normal to inspection Objective Data Active Medications Acetaminophen (Acetaminophen 325 Mg Tablet) 650 mg PO Q6H PRN PRN Reason: Pain, Mild (Pain Scale 1-3) Atorvastatin Calcium (Atorvastatin Calcium 10 Mg Tablet) 10 mg PO BEDTIME [facility] Last Admin: 01/01/24 22:01 Dose: 10 mg Documented By: TASHI Divalproex Sodium (Divalproex Sodium Er 500 Mg Tab.Er.24h) 500 mg PO BEDTIME [facility] Last Admin: 01/01/24 22:00 Dose: 500 mg Documented By: TASHI Docusate Sodium (Docusate Sodium 100 Mg Capsule) 100 mg PO BID [facility] Last Admin: 01/02/24 10:22 Dose: 100 mg Documented By: MANJINDER Erythromycin (Erythromycin Base 250 Mg Tablet) 1,000 mg PO 1300,1400,2200 [facility] Stop: 01/04/24 22:01 Folic Acid (Folic Acid 1 Mg Tablet) 1 mg PO DAILY [facility] Last Admin: 01/02/24 10:22 Dose: 1 mg Documented By: MANJINDER Ceftriaxone Sodium 1 gm/ (Sodium Chloride) 50 mls @ 100 mls/hr IV Q24H [facility] Last Infusion: 01/01/24 22:36 Dose: Infused Documented By: TASHI Lactated Ringer's (Lr) 1,000 mls @ 100 mls/hr IVCONT .Q10H [facility] Last Admin: 01/02/24 06:30 Dose: 100 mls/hr Documented By: SENG Midodrine (Midodrine Hcl 5 Mg Tablet) 5 mg PO TID PRN PRN Reason: SBP < 90 Neomycin Sulfate (Neomycin Sulfate 500 Mg Tablet) 1,000 mg PO 13,, [facility] Stop: 01/04/24 22:01 Non-Formulary Medication (Risperidone Microspheres) 25 mg IM Q14D [facility] Nortriptyline HCl (Nortriptyline Hcl 10 Mg Capsule) 10 mg PO BEDTIME [facility] Last Admin: 01/01/24 22:01 Dose: 10 mg Documented By: TASHI Omeprazole (Omeprazole 20 Mg Capsule.) 20 mg PO BEDTIME [facility] Last Admin: 01/01/24 22:01 Dose: 20 mg Documented By: TASHI Ondansetron HCl (Ondansetron Odt 4 Mg Tab.Rapdis) 4 mg TRANSLINGU Q6H PRN PRN Reason: Nausea And Vomiting Ondansetron HCl (Ondansetron Hcl 4 Mg/2 Ml Vial) 4 mg IVPUSH Q8H PRN PRN Reason: Nausea and Vomiting Polyethylene Glycol (Polyethylene Glycol 3350 17 Gm Powd.Pack) 17 gm PO BID [facility] Last Admin: 01/02/24 10:22 Dose: 17 gm Documented By: MANJINDER Polyethylene Glycol/Electrolytes (Peg 3350/Na Sulf,Bicarb,Cl/Kcl 4,000 Ml Soln.Recon) 4,000 ml PO ONCE ONE Stop: 01/04/24 12:01 Sodium Chloride (0.9 % Sodium Chloride Flush 3 Ml Syringe) 3 ml IVFLUSH QSHIFT [facility] Last Admin: 01/02/24 10:22 Dose: 3 ml Documented By: MANJINDER Labs 01/02/24 08:59 01/02/24 08:59 Labs: Laboratory Results - last 24 hr 01/01/24 01/02/24 10:14 08:59 MCV 95.6 D 92.9 MCH 31.4 31.0 MCHC 32.8 33.3 RDW 17.4 H 17.2 H Plt Count 128 L 201 D MPV 11.3 9.5 Absolute Nucleated RBC 0.000 0.000 Nucleated RBC % (auto) 0.0 0.0 Anion Gap 15 14 Estim Creat Clear Calc 75.1 63.0 Estimated GFR > 60 > 60 Fasting Glucose 76 135 H Calcium 8.3 L 8.7 Carcinoembryonic Ag < 1.73 Assessment and Plan (1) ABLA (acute blood loss anemia): Status: Acute (2) Acute lower GI bleeding: Status: Acute (3) Mass in rectum: Status: Acute Plan 78F PMH HTN, HLD, cognitive disorder, hx of TIA, hx of DVT/PE, hx of breast cancer, GERD, and bipolar I disorder with recent admission to hospitalist service from 11/28-12/08 due to left hip fracture s/p hemiarthroplasty on 12/03 also found to have pulmonary embolism with type 2 NSTEMI with IVC filter placed 12/01 and started on Eliquis presented lightheaded found to have severe anemia Acute blood loss anemia due to GI bleed H/H on arrival 5.5/17.4%. Transfuse 2 units PRBCs, repeated stable CT abdomen/pelvis results negative for perforation but show a cecal mass with possible bleeding stool occult blood positive eliquis on hold, underwent colonoscopy 01/01/24 revealed right sided neoplasm, biopsy taken plan for surgery early next week, bowel prep again on 01/04/24 acute hypotension resolved, not due to sepsis Acute kidney injury likely 2/2 hypotension resolved SIRS criteria resolved, no sepsis acute UTI mixed john in culture, culture from 12/25 ecolic sensitive to rocephin completed 5 days IV ceftriaxone (initiated 12/28) acute lactic acidosis resolved Hx hypertension holding lisinopril, low normal bp HLD continue statin recent PE/DVT diagnosed 11/28 s/p IVC filter placement 12/01 hold Eliquis recent left hip fracture s/p hemiarthroplasty PT recommending str DVT prophylaxis- SCPs due to gi bleed DNR/DNI reason for continued hospitalization: plan for surgery prior to dc Quality Stroke Does the patient have a stroke diagnosis?: No VTE Prior VTE?: No VTE Risk Level:: Medical - moderate - high VTE Device Contraindication: N/A - Device Ordered VTE Drug Contraindication: Treatment Not Indicated
--- NOTE | 2024-01-02 14:15 | HO.POSTANES ---
Post Anesthesia Evaluation Post Anesthesia Evaluation Date of Service: 01/01/24 Vital Signs: Vital Signs Temp Pulse Resp BP Pulse Ox O2 Del Method 01/02/24 13:20 90 127/60 01/02/24 11:13 97.6 F 90 18 127/60 Room Air 01/02/24 08:00 97.6 F 90 18 126/63 96 Room Air 01/02/24 04:00 98.3 F 77 18 163/74 H 96 Room Air Anesthesia: Monitored Mental Status: Awake Pain Control: Satisfactory Nausea/Vomiting: None Hydration: Adequate Anesthesia-Related Issues: No Anes. Related Issues
[2024-01-02] MEDS: Omeprazole 20 MG CAPSULE.DR PO (20:49)
[2024-01-02] MEDS: Nortriptyline HCl 10 MG CAPSULE PO (20:49)
[2024-01-02] MEDS: Atorvastatin Calcium 10 MG TABLET PO (20:50)
[2024-01-02] MEDS: Divalproex Sodium ER 500 MG TAB.ER.24H PO (20:52)
[2024-01-02] MEDS: cefTRIAXone sodium 1 GM in 0.9 % Sodium Chloride 50 ML IV (20:53)
[2024-01-03] VITALS (7 sets, daily range): BP systolic 121–153; BP diastolic 59–86; PULSE 84–110; RESP 20; TEMP 36.1–36.6; O2SAT 94–98
[2024-01-03] MEDS: Lactated Ringers 1,000 ML 100 ML IVCONT (06:19)
--- NOTE | 2024-01-03 09:08 | HO.PM.IMPN ---
Subjective Subjective Date of Service: 01/03/24 Interval History: no further bleeding Physical Exam Vital Signs: Vital Signs: Last Vital Signs Temp 97 F 01/03/24 07:59 Pulse 86 01/03/24 07:59 Resp 20 01/03/24 07:59 BP 146/72 H 01/03/24 07:59 Pulse Ox 94 01/03/24 07:59 O2 Del Method Room Air 01/03/24 07:59 O2 Flow Rate 1 01/01/24 13:36 BMI result Body Mass Index 27.3 Const: General: no acute distress Nutritional Appearance: well nourished Resp: Effort & Inspection: normal respiratory effort, no audible wheezes, no cough and no respiratory distress GI: Inspection: Yes normal to inspection Objective Data Active Medications Acetaminophen (Acetaminophen 325 Mg Tablet) 650 mg PO Q6H PRN PRN Reason: Pain, Mild (Pain Scale 1-3) Atorvastatin Calcium (Atorvastatin Calcium 10 Mg Tablet) 10 mg PO BEDTIME [facility] Last Admin: 01/02/24 20:50 Dose: 10 mg Documented By: ERNESTINA Divalproex Sodium (Divalproex Sodium Er 500 Mg Tab.Er.24h) 500 mg PO BEDTIME [facility] Last Admin: 01/02/24 20:52 Dose: 500 mg Documented By: ERNESTINA Docusate Sodium (Docusate Sodium 100 Mg Capsule) 100 mg PO BID [facility] Last Admin: 01/02/24 20:51 Dose: Not Given Documented By: ERNESTINA Non-Admin Reason: patient re Erythromycin (Erythromycin Base 250 Mg Tablet) 1,000 mg PO 1300,1400,2200 [facility] Stop: 01/04/24 22:01 Folic Acid (Folic Acid 1 Mg Tablet) 1 mg PO DAILY [facility] Last Admin: 01/02/24 10:22 Dose: 1 mg Documented By: MANJINDER Lactated Ringer's (Lr) 1,000 mls @ 100 mls/hr IVCONT .Q10H [facility] Last Admin: 01/03/24 06:19 Dose: 100 mls/hr Documented By: CHALO Midodrine (Midodrine Hcl 5 Mg Tablet) 5 mg PO TID PRN PRN Reason: SBP < 90 Neomycin Sulfate (Neomycin Sulfate 500 Mg Tablet) 1,000 mg PO 13,14,22 [facility] Stop: 01/04/24 22:01 Non-Formulary Medication (Risperidone Microspheres) 25 mg IM Q14D [facility] Nortriptyline HCl (Nortriptyline Hcl 10 Mg Capsule) 10 mg PO BEDTIME [facility] Last Admin: 01/02/24 20:49 Dose: 10 mg Documented By: ERNESTINA Omeprazole (Omeprazole 20 Mg Capsule.Dr) 20 mg PO BEDTIME [facility] Last Admin: 01/02/24 20:49 Dose: 20 mg Documented By: ERNESTINA Ondansetron HCl (Ondansetron Odt 4 Mg Tab.Rapdis) 4 mg TRANSLINGU Q6H PRN PRN Reason: Nausea And Vomiting Ondansetron HCl (Ondansetron Hcl 4 Mg/2 Ml Vial) 4 mg IVPUSH Q8H PRN PRN Reason: Nausea and Vomiting Polyethylene Glycol (Polyethylene Glycol 3350 17 Gm Powd.Pack) 17 gm PO BID [facility] Last Admin: 01/02/24 20:48 Dose: 17 gm Documented By: ERNESTINA Polyethylene Glycol/Electrolytes (Peg 3350/Na Sulf,Bicarb,Cl/Kcl 4,000 Ml Soln.Recon) 4,000 ml PO ONCE ONE Stop: 01/04/24 12:01 Sodium Chloride (0.9 % Sodium Chloride Flush 3 Ml Syringe) 3 ml IVFLUSH QSHIFT [facility] Last Admin: 01/02/24 23:26 Dose: 3 ml Documented By: CHALO Labs 01/02/24 08:59 01/02/24 08:59 Labs: Laboratory Results - last 24 hr 01/02/24 08:59 MCV 92.9 MCH 31.0 MCHC 33.3 RDW 17.2 H Plt Count 201 D MPV 9.5 Absolute Nucleated RBC 0.000 Nucleated RBC % (auto) 0.0 Anion Gap 14 Estim Creat Clear Calc 63.0 Estimated GFR > 60 Fasting Glucose 135 H Calcium 8.7 Carcinoembryonic Ag < 1.73 Assessment and Plan (1) ABLA (acute blood loss anemia): Status: Acute (2) Acute lower GI bleeding: Status: Acute (3) Mass in rectum: Status: Acute Plan 78F PMH HTN, HLD, cognitive disorder, hx of TIA, hx of DVT/PE, hx of breast cancer, GERD, and bipolar I disorder with recent admission to hospitalist service from 11/28-12/08 due to left hip fracture s/p hemiarthroplasty on 12/03 also found to have pulmonary embolism with type 2 NSTEMI with IVC filter placed 12/01 and started on Eliquis presented lightheaded found to have severe anemia Acute blood loss anemia due to GI bleed H/H on arrival 5.5/17.4%. Transfuse 2 units PRBCs, repeated stable CT abdomen/pelvis results negative for perforation but show a cecal mass with possible bleeding stool occult blood positive eliquis on hold, underwent colonoscopy 01/01/24 revealed right sided neoplasm, biopsy taken plan for surgery early next week, bowel prep again on 01/04/24 acute hypotension resolved, not due to sepsis Acute kidney injury likely / hypotension resolved SIRS criteria resolved, no sepsis acute UTI mixed john in culture, culture from 12/25 ecolic sensitive to rocephin completed 5 days IV ceftriaxone (initiated 12/28) acute lactic acidosis resolved Hx hypertension restarting lisinopril HLD continue statin recent PE/DVT diagnosed 11/29/23 s/p IVC filter placement 12/02/23 holding Eliquis recent left hip fracture s/p hemiarthroplasty PT recommending str DVT prophylaxis- SCPs due to gi bleed DNR/DNI reason for continued hospitalization: plan for surgery prior to dc Quality Stroke Does the patient have a stroke diagnosis?: No VTE Prior VTE?: No VTE Risk Level:: Medical - moderate - high VTE Device Contraindication: N/A - Device Ordered VTE Drug Contraindication: Treatment Not Indicated
[2024-01-03] MEDS: polyethylene glycoL 3350 17 GM POWD.PACK PO (09:27)
[2024-01-03] MEDS: 0.9 % Sodium Chloride Flush 3 ML SYRINGE IVFLUSH ×3 (09:27→21:43)
[2024-01-03] MEDS: Folic Acid 1 MG TABLET PO (09:27)
[2024-01-03] MEDS: Potassium Chloride ER 20 MEQ TAB.ER.PRT 40 MEQ PO (09:27)
[2024-01-03] MEDS: Docusate Sodium 100 MG CAPSULE PO (09:27)
[2024-01-03] MEDS: Acetaminophen 325 MG TABLET 650 MG PO (15:25)
[2024-01-03] MEDS: Divalproex Sodium ER 500 MG TAB.ER.24H PO (21:42)
[2024-01-03] MEDS: Atorvastatin Calcium 10 MG TABLET PO (21:42)
[2024-01-03] MEDS: Omeprazole 20 MG CAPSULE.DR PO (21:42)
[2024-01-03] MEDS: Nortriptyline HCl 10 MG CAPSULE PO (21:42)
[2024-01-04] VITALS (7 sets, daily range): BP systolic 123–162; BP diastolic 59–78; PULSE 84–100; RESP 16–20; TEMP 36.1–36.4; O2SAT 94–96
--- NOTE | 2024-01-04 08:15 | HO.PM.IMPN ---
Subjective Subjective Date of Service: 01/04/24 Interval History: no further bleeding Physical Exam Vital Signs: Vital Signs: Last Vital Signs Temp 97.6 F 01/04/24 03:29 Pulse 100 01/04/24 03:29 Resp 20 01/04/24 03:29 BP 162/78 H 01/04/24 03:29 Pulse Ox 94 01/04/24 03:29 O2 Del Method Room Air 01/04/24 03:29 O2 Flow Rate 1 01/01/24 13:36 BMI result Body Mass Index 27.3 Const: General: no acute distress Nutritional Appearance: well nourished Resp: Effort & Inspection: normal respiratory effort, no audible wheezes, no cough and no respiratory distress GI: Inspection: Yes normal to inspection Objective Data Active Medications Acetaminophen (Acetaminophen 325 Mg Tablet) 650 mg PO Q6H PRN PRN Reason: Pain, Mild (Pain Scale 1-3) Last Admin: 01/03/24 15:25 Dose: 650 mg Documented By: ARI Atorvastatin Calcium (Atorvastatin Calcium 10 Mg Tablet) 10 mg PO BEDTIME [facility] Last Admin: 01/03/24 21:42 Dose: 10 mg Documented By: CHALO Divalproex Sodium (Divalproex Sodium Er 500 Mg Tab.Er.24h) 500 mg PO BEDTIME [facility] Last Admin: 01/03/24 21:42 Dose: 500 mg Documented By: CHALO Docusate Sodium (Docusate Sodium 100 Mg Capsule) 100 mg PO BID [facility] Last Admin: 01/03/24 21:43 Dose: Not Given Documented By: CHALO Non-Admin Reason: Patient Refused Erythromycin (Erythromycin Base 250 Mg Tablet) 1,000 mg PO 1300,1400,2200 [facility] Stop: 01/04/24 22:01 Folic Acid (Folic Acid 1 Mg Tablet) 1 mg PO DAILY [facility] Last Admin: 01/03/24 09:27 Dose: 1 mg Documented By: ARI Lisinopril (Lisinopril 5 Mg Tablet) 5 mg PO DAILY [facility]; Protocol Midodrine (Midodrine Hcl 5 Mg Tablet) 5 mg PO TID PRN PRN Reason: SBP < 90 Neomycin Sulfate (Neomycin Sulfate 500 Mg Tablet) 1,000 mg PO 13,14,22 [facility] Stop: 01/04/24 22:01 Non-Formulary Medication (Risperidone Microspheres) 25 mg IM Q14D [facility] Nortriptyline HCl (Nortriptyline Hcl 10 Mg Capsule) 10 mg PO BEDTIME [facility] Last Admin: 01/03/24 21:42 Dose: 10 mg Documented By: CHALO Omeprazole (Omeprazole 20 Mg Capsule.) 20 mg PO BEDTIME [facility] Last Admin: 01/03/24 21:42 Dose: 20 mg Documented By: CHALO Ondansetron HCl (Ondansetron Odt 4 Mg Tab.Rapdis) 4 mg TRANSLINGU Q6H PRN PRN Reason: Nausea And Vomiting Ondansetron HCl (Ondansetron Hcl 4 Mg/2 Ml Vial) 4 mg IVPUSH Q8H PRN PRN Reason: Nausea and Vomiting Polyethylene Glycol (Polyethylene Glycol 3350 17 Gm Powd.Pack) 17 gm PO BID [facility] Last Admin: 01/03/24 21:42 Dose: Not Given Documented By: CHALO Non-Admin Reason: Patient Refused Polyethylene Glycol/Electrolytes (Peg 3350/Na Sulf,Bicarb,Cl/Kcl 4,000 Ml Soln.Recon) 4,000 ml PO ONCE ONE Stop: 01/04/24 12:01 Sodium Chloride (0.9 % Sodium Chloride Flush 3 Ml Syringe) 3 ml IVFLUSH QSHIFT [facility] Last Admin: 01/03/24 21:43 Dose: 3 ml Documented By: CHALO Labs 01/02/24 08:59 01/02/24 08:59 Microbiology Microbiology Results: Microbiology 12/29/23 13:51 Blood Culture - Final Blood - Venous No growth after 5 days. 12/29/23 13:50 Blood Culture - Final Blood - Venous No growth after 5 days. Assessment and Plan (1) ABLA (acute blood loss anemia): Status: Acute (2) Acute lower GI bleeding: Status: Acute (3) Mass in rectum: Status: Acute Plan 78F PMH HTN, HLD, cognitive disorder, hx of TIA, hx of DVT/PE, hx of breast cancer, GERD, and bipolar I disorder with recent admission to hospitalist service from 11/28-12/08 due to left hip fracture s/p hemiarthroplasty on 12/03 also found to have pulmonary embolism with type 2 NSTEMI with IVC filter placed 12/01 and started on Eliquis presented lightheaded found to have severe anemia Acute blood loss anemia due to GI bleed H/H on arrival 5.5/17.4%. Transfuse 2 units PRBCs, repeated stable CT abdomen/pelvis results negative for perforation but show a cecal mass with possible bleeding stool occult blood positive eliquis on hold, underwent colonoscopy 01/01/24 revealed right sided neoplasm, biopsy taken bowel prep again on 01/04/24, surgery 01/05/24 acute hypotension resolved, not due to sepsis Acute kidney injury likely 2/2 hypotension resolved SIRS criteria resolved, no sepsis acute UTI mixed john in culture, culture from 12/25 ecolic sensitive to rocephin completed 5 days IV ceftriaxone (initiated 12/28) acute lactic acidosis resolved Hx hypertension restarting lisinopril HLD continue statin recent PE/DVT diagnosed 11/29/23 s/p IVC filter placement 12/02/23 holding Eliquis recent left hip fracture s/p hemiarthroplasty PT recommending str DVT prophylaxis- SCPs due to gi bleed/ planned surgery DNR/DNI reason for continued hospitalization: plan for surgery prior to dc Quality Stroke Does the patient have a stroke diagnosis?: No VTE Prior VTE?: No VTE Risk Level:: Medical - moderate - high VTE Device Contraindication: N/A - Device Ordered VTE Drug Contraindication: Treatment Not Indicated
[2024-01-04] MEDS: 0.9 % Sodium Chloride Flush 3 ML SYRINGE IVFLUSH ×2 (09:11→15:31)
[2024-01-04] MEDS: lisinopriL 5 MG TABLET PO (09:11)
[2024-01-04] MEDS: Folic Acid 1 MG TABLET PO (09:11)
[2024-01-04] MEDS: Erythromycin Base 250 MG TABLET 1000 MG PO ×3 (12:49→21:05)
[2024-01-04] MEDS: PEG 3350/Na Sulf,Bicarb,Cl/KCL 4,000 ML SOLN.RECON 4000 ML PO (12:49)
[2024-01-04] MEDS: neoMYCIN Sulfate 500 MG TABLET 1000 MG PO ×3 (12:50→21:06)
--- NOTE | 2024-01-04 13:22 | P.PNGS_ITS ---
Subjective Subjective Date of Service: 01/04/24 Interval history: Patient is doing well drinking her prep in preparation for her colectomy tomorrow no complaints other than not happy about drinking all the prep all over again Physical Exam 2 Vital Signs: Vital Signs: Last Vital Signs Temp 97 F 01/04/24 11:24 Pulse 90 01/04/24 11:24 Resp 20 01/04/24 11:24 BP 132/59 L 01/04/24 11:24 Pulse Ox 96 01/04/24 11:24 O2 Del Method Room Air 01/04/24 11:24 O2 Flow Rate 1 01/01/24 13:36 BMI result Body Mass Index 27.3 GI: Other: Abdomen is benign Objective Data Active Medications Acetaminophen (Acetaminophen 325 Mg Tablet) 650 mg PO Q6H PRN PRN Reason: Pain, Mild (Pain Scale 1-3) Last Admin: 01/03/24 15:25 Dose: 650 mg Documented By: ARI Atorvastatin Calcium (Atorvastatin Calcium 10 Mg Tablet) 10 mg PO BEDTIME [facility] Last Admin: 01/03/24 21:42 Dose: 10 mg Documented By: CHALO Divalproex Sodium (Divalproex Sodium Er 500 Mg Tab.Er.24h) 500 mg PO BEDTIME [facility] Last Admin: 01/03/24 21:42 Dose: 500 mg Documented By: CHALO Docusate Sodium (Docusate Sodium 100 Mg Capsule) 100 mg PO BID [facility] Last Admin: 01/04/24 09:13 Dose: Not Given Documented By: ARI Non-Admin Reason: Patient Refused Erythromycin (Erythromycin Base 250 Mg Tablet) 1,000 mg PO 1300,1400,2200 [facility] Stop: 01/04/24 22:01 Last Admin: 01/04/24 12:49 Dose: 1,000 mg Documented By: ARI Folic Acid (Folic Acid 1 Mg Tablet) 1 mg PO DAILY [facility] Last Admin: 01/04/24 09:11 Dose: 1 mg Documented By: ARI Lisinopril (Lisinopril 5 Mg Tablet) 5 mg PO DAILY [facility]; Protocol Last Admin: 01/04/24 09:11 Dose: 5 mg Documented By: ARI Midodrine (Midodrine Hcl 5 Mg Tablet) 5 mg PO TID PRN PRN Reason: SBP < 90 Neomycin Sulfate (Neomycin Sulfate 500 Mg Tablet) 1,000 mg PO 13,14,22 [facility] Stop: 01/04/24 22:01 Last Admin: 01/04/24 12:50 Dose: 1,000 mg Documented By: ARI Non-Formulary Medication (Risperidone Microspheres) 25 mg IM Q14D [facility] Nortriptyline HCl (Nortriptyline Hcl 10 Mg Capsule) 10 mg PO BEDTIME [facility] Last Admin: 01/03/24 21:42 Dose: 10 mg Documented By: CHALO Omeprazole (Omeprazole 20 Mg Capsule.Dr) 20 mg PO BEDTIME [facility] Last Admin: 01/03/24 21:42 Dose: 20 mg Documented By: CHALO Ondansetron HCl (Ondansetron Odt 4 Mg Tab.Rapdis) 4 mg TRANSLINGU Q6H PRN PRN Reason: Nausea And Vomiting Ondansetron HCl (Ondansetron Hcl 4 Mg/2 Ml Vial) 4 mg IVPUSH Q8H PRN PRN Reason: Nausea and Vomiting Polyethylene Glycol (Polyethylene Glycol 3350 17 Gm Powd.Pack) 17 gm PO BID [facility] Last Admin: 01/04/24 09:13 Dose: Not Given Documented By: ARI Non-Admin Reason: Patient Refused Sodium Chloride (0.9 % Sodium Chloride Flush 3 Ml Syringe) 3 ml IVFLUSH QSHIFT [facility] Last Admin: 01/04/24 09:11 Dose: 3 ml Documented By: ARI Labs 01/02/24 08:59 01/02/24 08:59 Microbiology Microbiology Results: Microbiology 12/29/23 13:51 Blood Culture - Final Blood - Venous No growth after 5 days. 12/29/23 13:50 Blood Culture - Final Blood - Venous No growth after 5 days. Procedures Date of Service Date of Service: 01/04/24 Progress Note: A&P Assessment and plan (1) Colon neoplasm: Status: Acute Assessment and Plan: Patient is a 78-year-old female with right-sided colon lesion plan to carry out a right colectomy tomorrow with anastomosis. Prep happening today she is tolerating it well. She will be NPO after midnight. Time Spent With Patient Time: Total time managing care of this patient today ____ minutes. Quality Stroke Does the patient have a stroke diagnosis?: No VTE Prior VTE?: No VTE Risk Level:: Medical - moderate - high VTE Device Contraindication: N/A - Device Ordered VTE Drug Contraindication: Treatment Not Indicated
--- NOTE | 2024-01-04 19:17 | HO.SKINPHOTO ---
Location: Category: Stage: Length: Width: Depth: cm Location: Category: Stage: Length: Width: Depth: cm Location: Category: Stage: Length: Width: Depth: cm Location: Category: Stage: Length: Width: Depth: cm Location: Category: Stage: Length: Width: Depth: cm Location: Category: Stage: Length: Width: Depth: cm
[2024-01-04] MEDS: Nortriptyline HCl 10 MG CAPSULE PO (21:05)
[2024-01-04] MEDS: Atorvastatin Calcium 10 MG TABLET PO (21:06)
[2024-01-04] MEDS: Divalproex Sodium ER 500 MG TAB.ER.24H PO (21:06)
[2024-01-04] MEDS: Omeprazole 20 MG CAPSULE.DR PO (21:06)
[2024-01-05] VITALS (15 sets, daily range): BP systolic 118–143; BP diastolic 46–77; PULSE 88–118; RESP 13–20; TEMP 35.5–37.1; O2SAT 93–97
[2024-01-05] MEDS: Folic Acid 1 MG TABLET PO (08:05)
[2024-01-05] MEDS: lisinopriL 5 MG TABLET PO (08:05)
[2024-01-05] MEDS: 0.9 % Sodium Chloride Flush 3 ML SYRINGE IVFLUSH ×2 (08:05)
--- NOTE | 2024-01-05 09:56 | HO.PM.IMPN ---
Subjective Subjective Date of Service: 01/05/24 Interval History: no further bleeding Physical Exam Vital Signs: Vital Signs: Last Vital Signs Temp 97.4 F 01/05/24 07:42 Pulse 88 01/05/24 07:42 Resp 18 01/05/24 07:42 BP 143/63 H 01/05/24 08:05 Pulse Ox 97 01/05/24 07:42 O2 Del Method Room Air 01/05/24 07:42 O2 Flow Rate 1 01/01/24 13:36 BMI result Body Mass Index 27.3 GI: Other: Abdomen is benign Objective Data Active Medications Acetaminophen (Acetaminophen 325 Mg Tablet) 650 mg PO Q6H PRN PRN Reason: Pain, Mild (Pain Scale 1-3) Last Admin: 01/03/24 15:25 Dose: 650 mg Documented By: ARI Atorvastatin Calcium (Atorvastatin Calcium 10 Mg Tablet) 10 mg PO BEDTIME [facility] Last Admin: 01/04/24 21:06 Dose: 10 mg Documented By: SENG Divalproex Sodium (Divalproex Sodium Er 500 Mg Tab.Er.24h) 500 mg PO BEDTIME [facility] Last Admin: 01/04/24 21:06 Dose: 500 mg Documented By: SENG Docusate Sodium (Docusate Sodium 100 Mg Capsule) 100 mg PO BID [facility] Last Admin: 01/05/24 09:37 Dose: Not Given Documented By: SUNG Non-Admin Reason: NPO Folic Acid (Folic Acid 1 Mg Tablet) 1 mg PO DAILY [facility] Last Admin: 01/05/24 08:05 Dose: 1 mg Documented By: SUNG Lisinopril (Lisinopril 5 Mg Tablet) 5 mg PO DAILY [facility]; Protocol Last Admin: 01/05/24 08:05 Dose: 5 mg Documented By: SUNG Midodrine (Midodrine Hcl 5 Mg Tablet) 5 mg PO TID PRN PRN Reason: SBP < 90 Non-Formulary Medication (Risperidone Microspheres) 25 mg IM Q14D [facility] Nortriptyline HCl (Nortriptyline Hcl 10 Mg Capsule) 10 mg PO BEDTIME [facility] Last Admin: 01/04/24 21:05 Dose: 10 mg Documented By: SENG Omeprazole (Omeprazole 20 Mg Capsule.Dr) 20 mg PO BEDTIME [facility] Last Admin: 01/04/24 21:06 Dose: 20 mg Documented By: SENG Ondansetron HCl (Ondansetron Odt 4 Mg Tab.Rapdis) 4 mg TRANSLINGU Q6H PRN PRN Reason: Nausea And Vomiting Ondansetron HCl (Ondansetron Hcl 4 Mg/2 Ml Vial) 4 mg IVPUSH Q8H PRN PRN Reason: Nausea and Vomiting Polyethylene Glycol (Polyethylene Glycol 3350 17 Gm Powd.Pack) 17 gm PO BID [facility] Last Admin: 01/05/24 09:37 Dose: Not Given Documented By: SUNG Non-Admin Reason: NPO Sodium Chloride (0.9 % Sodium Chloride Flush 3 Ml Syringe) 3 ml IVFLUSH QSHIFT [facility] Last Admin: 01/05/24 08:05 Dose: 3 ml Documented By: SUNG Labs 01/02/24 08:59 01/02/24 08:59 Assessment and Plan (1) ABLA (acute blood loss anemia): Status: Acute (2) Acute lower GI bleeding: Status: Acute (3) Mass in rectum: Status: Acute Plan 78F PMH HTN, HLD, cognitive disorder, hx of TIA, hx of DVT/PE, hx of breast cancer, GERD, and bipolar I disorder with recent admission to hospitalist service from 11/28-12/08 due to left hip fracture s/p hemiarthroplasty on 12/03 also found to have pulmonary embolism with type 2 NSTEMI with IVC filter placed 12/01 and started on Eliquis presented lightheaded found to have severe anemia Acute blood loss anemia due to GI bleed H/H on arrival 5.5/17.4%. Transfuse 2 units PRBCs, repeated stable CT abdomen/pelvis results negative for perforation but show a cecal mass with possible bleeding stool occult blood positive eliquis on hold, underwent colonoscopy 01/01/24 revealed right sided neoplasm, biopsy taken plan for surgery today 01/05/24 acute hypotension resolved, not due to sepsis Acute kidney injury likely 2/2 hypotension resolved SIRS criteria resolved, no sepsis acute UTI mixed john in culture, culture from 12/25 ecolic sensitive to rocephin completed 5 days IV ceftriaxone (initiated 12/28) acute lactic acidosis resolved Hx hypertension restarting lisinopril HLD continue statin recent PE/DVT diagnosed 11/29/23 s/p IVC filter placement 12/02/23 holding Sukhdeep recent left hip fracture s/p hemiarthroplasty PT recommending str DVT prophylaxis- SCPs due to gi bleed/ planned surgery DNR/DNI reason for continued hospitalization: plan for surgery prior to dc Quality Stroke Does the patient have a stroke diagnosis?: No VTE Prior VTE?: No VTE Risk Level:: Medical - moderate - high VTE Device Contraindication: N/A - Device Ordered VTE Drug Contraindication: Treatment Not Indicated
--- NOTE | 2024-01-05 10:43 | MHC.CM.PN ---
Per ROUNDS discussion, Patient is not yet medically cleared for dc (Surgery today); PT is recommending STR and CM will continue to follow.
--- NOTE | 2024-01-05 10:44 | MHC.CLN ---
F/U PT WITH INCREASED NUTRITION RISK R/T PRESSURE INJURY PT CURRENTLY NPO FOR PROCEDURE TODAY PREVIOUS PO INTAKE 75-100% WHEN DIET TO ADVANCE; RECOMMEND RE-STARTING ENSURE BID TO INCREASE KCALS AND PROMOTE WOUND HEALING SUPP TO PROVIDE 700KCALS, 40G PROTEIN MONITOR FOR DIET ADVANCEMENT
[2024-01-05 11:18] LABS: MANUAL DIFF FLAG NO
[2024-01-05 11:21] LABS: Basophils Percent Auto 0.5 % (0-2); Eosinophils Absolute Auto 0.3 X10*3/uL (0.0-0.4); Eosinophils Percent Auto 4.1 % (0-4); Hemoglobin 8.2 g/dl (12.0-16.0); Imm Gran Abs Auto 0.06 X10*3/uL (0.00-0.03); Imm Gran Pct Auto 0.7 % (0.0-0.4); Lymphocytes Absolute Auto 1.2 X10*3/uL (1.2-4.9); Lymphocytes Percent Auto 14.9 % (20-40); Mean Corpuscular HGB Conc 32.8 g/dl (31.0-35.0); Mean Corpuscular Hemoglobin 30.8 pg (27.0-33.0); Mean Platelet Volume 9.5 fL (9.4-12.3); Monocytes Absolute Auto 0.6 X10*3/uL (0.1-1.2); Neutrophils Absolute Auto 5.8 x10*3/uL (2.0-8.3); Neutrophils Percent Auto 72.8 % (45-73); Platelet Count 188 X10*3/uL (160-400); Red Blood Count 2.66 X10*6/uL (4.20-5.50); Red Cell Distribution Width 16.6 % (11.0-16.0)
--- NOTE | 2024-01-05 13:29 | PC.NURSE ---
new iv inserted by my ly anesthesiologist via ultrasound guided by the bedside. 20g right ac. tiger connected dru rooney rn regarding patients right arm.
--- NOTE | 2024-01-05 14:29 | MHC.SHP ---
Pre-Procedural Eval Section A - 24 Hr Update-Section A only Date of Service: 01/05/24 The patient is an INPATIENT: Yes Section B - Complete if H&P > 30 days Chief Complaint: GIB, hypotension Allergies: Allergies Allergy/AdvReac Type Severity Reaction Status Date / Time No Known Allergies Allergy Verified 12/29/23 12:41 [No Known Allergies*] Plan Diagnosis/Plan: Unchanged I have reviewed the history and physical and performed a pertinent physical examination on my patient. No changes have occurred unless specified. Time Spent With Patient Time: Total time managing care of this patient today ____ minutes.
--- NOTE | 2024-01-05 14:40 | PC.NURSE ---
left ac iv removed.
--- NOTE | 2024-01-05 14:57 | HO.ANESPROP2 ---
HPI - Anesthesia Eval Consult details Narrative: 78 yo female patient . S/p Colonoscopy 01/01/24 for finding of anemia. Colonoscopy revealed Ascending colon mass. 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 For Hand-assisted Laparoscopic Right Colectomy Anemia H?H 8.10/19. T&S PMFSH Active Problems Active Problems: All Active Problems (Updated 01/05/24 @ 14:50 by Kaila Camarillo MD) Colon neoplasm (Acute) GI bleed (Acute) Abnormal CT scan, colon (Acute) Mass in rectum (Acute) ABLA (acute blood loss anemia) (Acute) Acute lower GI bleeding (Acute) History of left hip hemiarthroplasty (Acute) Pulmonary embolism (Acute) Fracture of left femur (Acute) Chronic low back pain (Acute) Rash of neck (Acute) Hearing impairment (Acute) Generalized muscle weakness (Acute) Bipolar disorder (Acute) Cognitive disorder (Acute) Tremors of nervous system (Acute) Gait disorder (Acute) Obesity (Acute) Hyperlipidemia (Acute) HTN (hypertension) (Acute) GERD (gastroesophageal reflux disease) (Acute) Breast cancer (Acute) Bipolar 1 disorder (Acute) Anemia H/H 8.10/19. Past Medical History Medical History Pre-op chest exam Preop cardiovascular exam NSTEMI (non-ST elevated myocardial infarction) Chronic low back pain Rash of neck Hearing impairment Generalized muscle weakness Cognitive disorder TIA (transient ischemic attack) Tremors of nervous system Gait disorder DVT (deep venous thrombosis) Obesity Hyperlipidemia HTN (hypertension) GERD (gastroesophageal reflux disease) Breast cancer Bipolar 1 disorder Family History Family History Brother Alcohol abuse Polio Substance use disorder Brother Cancer Sister Stroke Mental health disorder Mother HTN (hypertension) Sister Cancer Family history of problems with anesthesia: No Surgical History Surgical History H/O mastectomy History of Problems with Anesthesia: No Social History Social History Household Members: None Household Members Other:: [facility] Housing: Condominium Do you presently have visiting nurse or other home services: Yes Unable to assess alcohol history related to: Refusing to respond Alcohol intake: current Alcohol type: wine Patient Tobacco Use Status: Former Tobacco user Quit Date: 11 years ago Tobacco use type: Smokeless Tobacco Years Smoked: 30 e-Cigarette/Vaping Use: Never Used Second Hand Smoke Exposure: No Advance Directives Date on File: 05/01/22 service: No Sexual orientation: Straight/Heterosexual Cognitive needs: No Hearing needs: No Vision needs: Yes Meds Allergies Allergy/AdvReac Type Severity Reaction Status Date / Time No Known Allergies Allergy Verified 12/29/23 12:41 [No Known Allergies*] Active Medications: Current Medications Acetaminophen (Acetaminophen 325 Mg Tablet) 650 mg PO Q6H PRN PRN Reason: Pain, Mild (Pain Scale 1-3) Last Admin: 01/03/24 15:25 Dose: 650 mg Atorvastatin Calcium (Atorvastatin Calcium 10 Mg Tablet) 10 mg PO BEDTIME [facility] Last Admin: 01/04/24 21:06 Dose: 10 mg Divalproex Sodium (Divalproex Sodium Er 500 Mg Tab.Er.24h) 500 mg PO BEDTIME [facility] Last Admin: 01/04/24 21:06 Dose: 500 mg Docusate Sodium (Docusate Sodium 100 Mg Capsule) 100 mg PO BID [facility] Last Admin: 01/05/24 09:37 Dose: Not Given Folic Acid (Folic Acid 1 Mg Tablet) 1 mg PO DAILY [facility] Last Admin: 01/05/24 08:05 Dose: 1 mg Lisinopril (Lisinopril 5 Mg Tablet) 5 mg PO DAILY [facility]; Protocol Last Admin: 01/05/24 08:05 Dose: 5 mg Midodrine (Midodrine Hcl 5 Mg Tablet) 5 mg PO TID PRN PRN Reason: SBP < 90 Non-Formulary Medication (Risperidone Microspheres) 25 mg IM Q14D [facility] Nortriptyline HCl (Nortriptyline Hcl 10 Mg Capsule) 10 mg PO BEDTIME [facility] Last Admin: 01/04/24 21:05 Dose: 10 mg Omeprazole (Omeprazole 20 Mg Capsule.Dr) 20 mg PO BEDTIME [facility] Last Admin: 01/04/24 21:06 Dose: 20 mg Ondansetron HCl (Ondansetron Odt 4 Mg Tab.Rapdis) 4 mg TRANSLINGU Q6H PRN PRN Reason: Nausea And Vomiting Ondansetron HCl (Ondansetron Hcl 4 Mg/2 Ml Vial) 4 mg IVPUSH Q8H PRN PRN Reason: Nausea and Vomiting Polyethylene Glycol (Polyethylene Glycol 3350 17 Gm Powd.Pack) 17 gm PO BID [facility] Last Admin: 01/05/24 09:37 Dose: Not Given Sodium Chloride (0.9 % Sodium Chloride Flush 3 Ml Syringe) 3 ml IVFLUSH QSHIFT [facility] Last Admin: 01/05/24 08:05 Dose: 3 ml Home Medications ?Medication ?Instructions ?Recorded ?Confirmed ?Last Taken ?Type folic acid 1 mg tablet 1 mg PO DAILY 09/30/22 12/29/23 11/28/23 History risperidone microspheres 25 mg/2 25 mg IM Q14D 09/30/22 01/04/24 12/26/23 09:00 History mL intramuscular susp,ext release (Risperdal Consta) nortriptyline 10 mg capsule 10 mg PO BEDTIME 08/15/23 12/29/23 11/28/23 History docusate sodium 100 mg capsule 100 mg PO BID 11/29/23 12/29/23 11/28/23 History furosemide 20 mg tablet 20 mg PO DAILY 11/29/23 12/29/23 11/28/23 History lisinopril 5 mg tablet 5 mg PO DAILY 11/29/23 12/29/23 11/28/23 History Lactobacillus acidophilus 1 cap PO BID 12/29/23 12/29/23 Unknown History (Acidophilus capsule) apixaban 5 mg tablet (Eliquis) 5 mg PO BID 12/29/23 12/29/23 Unknown History divalproex 500 mg tablet,extended 500 mg PO BEDTIME 12/29/23 12/29/23 Unknown History release 24 hr midodrine 5 mg tablet 5 mg PO TID PRN SBP < 90 12/29/23 12/29/23 Unknown History nitrofurantoin 100 mg PO BID 12/29/23 12/29/23 Unknown History monohydrate/macrocrystals 100 mg capsule ondansetron 4 mg disintegrating 4 mg PO Q6H PRN Nausea And Vomiting 12/29/23 12/29/23 Unknown History tablet tramadol 25 mg tablet 25 mg PO Q6H PRN Pain 12/29/23 12/29/23 Unknown History Exam Height,Weight and Vital Signs: Height 5 ft 4 in Weight 72.2 kg Last Vital Signs Temp 96 F L 01/05/24 12:41 Pulse 97 01/05/24 12:41 Resp 16 01/05/24 12:41 BP 137/46 L 01/05/24 12:41 Pulse Ox 96 01/05/24 12:41 O2 Del Method Room Air 01/05/24 12:41 O2 Flow Rate 1 01/01/24 13:36 Pertinent Lab Results Pertinent Lab Results: Laboratory Tests 12/29/23 12/29/23 12/29/23 12:47 13:50 13:53 WBC 12.0 H RBC 1.83 L Hgb 5.8 L* Hct 18.1 L* MCV 98.9 H MCH 31.7 MCHC 32.0 RDW 17.2 H Plt Count 272 MPV 10.0 Immature Gran % (Auto) 0.6 H Neut % (Auto) 84.7 H Lymph % (Auto) 10.4 L Pitkin % (Auto) 4.1 Eos % (Auto) 0.1 Baso % (Auto) 0.1 Lymph # (Auto) 1.3 Pitkin # (Auto) 0.5 Eos # (Auto) 0.0 Baso # (Auto) 0.0 Abs Immat Gran (auto) 0.07 H Absolute Neuts (auto) 10.2 H Absolute Nucleated RBC 0.000 Nucleated RBC % (auto) 0.0 Smear Tech's Comments PT 13.8 H INR 1.1 APTT 29.9 Sodium 137 Potassium 5.1 D Chloride 106 Carbon Dioxide 17 L Anion Gap 19 BUN 65 H Creatinine 1.46 H Estim Creat Clear Calc 32.0 Estimated GFR 35 POC Glucose 199 H Random Glucose 184 H Fasting Glucose Lactic Acid 3.6 H* Lactic Acid F/U @ 2Hr Lactic Acid F/U @ 4Hr Calcium 9.1 Magnesium 2.4 Iron TIBC % Saturation Unsat Iron Binding Total Bilirubin 0.3 AST 21 ALT 9 Alkaline Phosphatase 75 Total Protein 6.4 L Albumin 3.2 L Carcinoembryonic Ag Urine Color Urine Appearance Urine pH Ur Specific Rocky Urine Protein Urine Glucose (UA) Urine Ketones Urine Blood Urine Nitrite Ur Leukocyte Esterase Urine RBC Urine WBC Ur Squamous Epith Cells Urine Bacteria Hyaline Casts Stool Occult Blood POSITIVE Influenza Type A (PCR) NEGATIVE Influenza Type B (PCR) NEGATIVE RSV RNA Qual (PCR) NEGATIVE SARS-CoV-2 RNA (RT-PCR) NEGATIVE Blood Type Antibody Screen Crossmatch 12/29/23 12/29/23 12/29/23 16:42 17:31 19:15 WBC 10.0 RBC 3.06 L D Hgb 9.6 L D Hct 27.8 L D MCV 90.8 D MCH 31.4 MCHC 34.5 RDW 16.9 H Plt Count 202 D MPV 9.7 Immature Gran % (Auto) 0.6 H Neut % (Auto) 78.9 H Lymph % (Auto) 15.2 L Pitkin % (Auto) 4.8 Eos % (Auto) 0.3 Baso % (Auto) 0.2 Lymph # (Auto) 1.5 Pitkin # (Auto) 0.5 Eos # (Auto) 0.0 Baso # (Auto) 0.0 Abs Immat Gran (auto) 0.06 H Absolute Neuts (auto) 7.9 Absolute Nucleated RBC 0.000 Nucleated RBC % (auto) 0.0 Smear Tech's Comments PT INR APTT Sodium Potassium Chloride Carbon Dioxide Anion Gap BUN Creatinine Estim Creat Clear Calc Estimated GFR POC Glucose Random Glucose Fasting Glucose Lactic Acid Lactic Acid F/U @ 2Hr 2.3 H* Lactic Acid F/U @ 4Hr 1.4 Calcium Magnesium Iron TIBC % Saturation Unsat Iron Binding Total Bilirubin AST ALT Alkaline Phosphatase Total Protein Albumin Carcinoembryonic Ag Urine Color Yellow Urine Appearance Clear Urine pH 5.5 Ur Specific Rocky 1.010 Urine Protein Negative Urine Glucose (UA) Negative Urine Ketones Negative Urine Blood Negative Urine Nitrite Positive H Ur Leukocyte Esterase Large (3+) H Urine RBC 0-2 Urine WBC >50 H Ur Squamous Epith Cells 0-2 Urine Bacteria 2+ Hyaline Casts 0-2 Stool Occult Blood Influenza Type A (PCR) Influenza Type B (PCR) RSV RNA Qual (PCR) SARS-CoV-2 RNA (RT-PCR) Blood Type A Positive Antibody Screen NEGATIVE Crossmatch See Detail 12/30/23 12/30/23 12/30/23 04:21 13:50 21:23 WBC 9.8 10.1 8.8 RBC 2.71 L 2.66 L 2.58 L Hgb 8.4 L 8.4 L 8.0 L Hct 24.0 L 24.3 L 23.7 L MCV 88.6 91.4 91.9 MCH 31.0 31.6 31.0 MCHC 35.0 34.6 33.8 RDW 17.2 H 18.0 H 17.9 H Plt Count 197 192 165 MPV 9.8 10.2 10.3 Immature Gran % (Auto) 0.7 H Neut % (Auto) 75.0 H Lymph % (Auto) 17.1 L Pitkin % (Auto) 5.9 Eos % (Auto) 1.0 Baso % (Auto) 0.3 Lymph # (Auto) 1.7 Pitkin # (Auto) 0.6 Eos # (Auto) 0.1 Baso # (Auto) 0.0 Abs Immat Gran (auto) 0.07 H Absolute Neuts (auto) 7.3 Absolute Nucleated RBC 0.000 0.020 H 0.080 H Nucleated RBC % (auto) 0.0 0.2 0.9 H Smear Tech's Comments VERIFIED PT INR APTT Sodium 142 Potassium 4.1 Chloride 114 H Carbon Dioxide 18 L Anion Gap 14 BUN 51 H Creatinine 0.91 Estim Creat Clear Calc 51.3 Estimated GFR > 60 POC Glucose Random Glucose 91 Fasting Glucose Lactic Acid Lactic Acid F/U @ 2Hr Lactic Acid F/U @ 4Hr Calcium 8.4 D Magnesium Iron 38 TIBC 232 % Saturation 16 Unsat Iron Binding 194 Total Bilirubin AST ALT Alkaline Phosphatase Total Protein Albumin Carcinoembryonic Ag Urine Color Urine Appearance Urine pH Ur Specific Rocky Urine Protein Urine Glucose (UA) Urine Ketones Urine Blood Urine Nitrite Ur Leukocyte Esterase Urine RBC Urine WBC Ur Squamous Epith Cells Urine Bacteria Hyaline Casts Stool Occult Blood Influenza Type A (PCR) Influenza Type B (PCR) RSV RNA Qual (PCR) SARS-CoV-2 RNA (RT-PCR) Blood Type Antibody Screen Crossmatch 12/31/23 01/01/24 01/02/24 19:36 10:14 08:59 WBC 9.2 7.0 7.2 RBC 2.56 L 2.74 L 2.81 L Hgb 8.1 L 8.6 L 8.7 L Hct 23.2 L 26.2 L 26.1 L MCV 90.6 95.6 D 92.9 MCH 31.6 31.4 31.0 MCHC 34.9 32.8 33.3 RDW 17.7 H 17.4 H 17.2 H Plt Count TNP 128 L 201 D MPV 10.1 11.3 9.5 Immature Gran % (Auto) Neut % (Auto) Lymph % (Auto) Pitkin % (Auto) Eos % (Auto) Baso % (Auto) Lymph # (Auto) Pitkin # (Auto) Eos # (Auto) Baso # (Auto) Abs Immat Gran (auto) Absolute Neuts (auto) Absolute Nucleated RBC 0.000 0.000 0.000 Nucleated RBC % (auto) 0.0 0.0 0.0 Smear Tech's Comments PT INR APTT Sodium 143 144 144 Potassium 4.0 3.6 3.4 Chloride 116 H 115 H 114 H Carbon Dioxide 15 L 18 L 19 L Anion Gap 16 15 14 BUN 24 H 17 H 10 Creatinine 0.69 0.62 0.74 Estim Creat Clear Calc 67.5 75.1 63.0 Estimated GFR > 60 > 60 > 60 POC Glucose Random Glucose 101 Fasting Glucose 76 135 H Lactic Acid Lactic Acid F/U @ 2Hr Lactic Acid F/U @ 4Hr Calcium 8.2 L 8.3 L 8.7 Magnesium Iron TIBC % Saturation Unsat Iron Binding Total Bilirubin AST ALT Alkaline Phosphatase Total Protein Albumin Carcinoembryonic Ag < 1.73 Urine Color Urine Appearance Urine pH Ur Specific Rocky Urine Protein Urine Glucose (UA) Urine Ketones Urine Blood Urine Nitrite Ur Leukocyte Esterase Urine RBC Urine WBC Ur Squamous Epith Cells Urine Bacteria Hyaline Casts Stool Occult Blood Influenza Type A (PCR) Influenza Type B (PCR) RSV RNA Qual (PCR) SARS-CoV-2 RNA (RT-PCR) Blood Type Antibody Screen Crossmatch 01/05/24 11:12 WBC 8.0 RBC 2.66 L Hgb 8.2 L Hct 25.0 L MCV 94.0 MCH 30.8 MCHC 32.8 RDW 16.6 H Plt Count 188 MPV 9.5 Immature Gran % (Auto) 0.7 H Neut % (Auto) 72.8 Lymph % (Auto) 14.9 L Pitkin % (Auto) 7.0 Eos % (Auto) 4.1 H Baso % (Auto) 0.5 Lymph # (Auto) 1.2 Pitkin # (Auto) 0.6 Eos # (Auto) 0.3 Baso # (Auto) 0.0 Abs Immat Gran (auto) 0.06 H Absolute Neuts (auto) 5.8 Absolute Nucleated RBC 0.000 Nucleated RBC % (auto) 0.0 Smear Tech's Comments PT INR APTT Sodium Potassium Chloride Carbon Dioxide Anion Gap BUN Creatinine Estim Creat Clear Calc Estimated GFR POC Glucose Random Glucose Fasting Glucose Lactic Acid Lactic Acid F/U @ 2Hr Lactic Acid F/U @ 4Hr Calcium Magnesium Iron TIBC % Saturation Unsat Iron Binding Total Bilirubin AST ALT Alkaline Phosphatase Total Protein Albumin Carcinoembryonic Ag Urine Color Urine Appearance Urine pH Ur Specific Rocky Urine Protein Urine Glucose (UA) Urine Ketones Urine Blood Urine Nitrite Ur Leukocyte Esterase Urine RBC Urine WBC Ur Squamous Epith Cells Urine Bacteria Hyaline Casts Stool Occult Blood Influenza Type A (PCR) Influenza Type B (PCR) RSV RNA Qual (PCR) SARS-CoV-2 RNA (RT-PCR) Blood Type A Positive Antibody Screen NEGATIVE Crossmatch Airway Mallampati Class: III (Small mouth opening) TM Dist: >3cm Neck ROM: Full Loose/Missing/Broken Teeth: No (Denies broken, loose, missing teeth) Heart: RRR Lungs: CTAB Assessment and Plan Assessment Anesthesia Assessment: Anesthesia Plan Discussed and Chart Reviewed Final Anesthetic Review Family History of Problems with Anesthesia: No History of Problems with Anesthesia: No NPO: Yes ASA Class: III Final Preanesthetic Review: No Changes in Pt Med Stat, Meds/Allgs Chart Reviewed, Consent Obtained/Reviewed and Anes Risks/Benef Reviewed Patient Risk: High Procedure Risk: Intermediate Assessment/Block/Sedation in SS: Assess/Block/Sedation-SS Anesthetic Plan Anesthetic Plan: GA Disposition: Standard PACU and Inp. Admit - Standard Bed
--- NOTE | 2024-01-05 15:33 | HO.WOUND ---
Wound Consult: Initial - New consult for new location 78yr old? female admitted to [facility] on 12/29/23 - See progress notes and H&P for detailed history.? New wound consult placed for Right Heel.? Arrival to bedside patient was off unit. Documentation made below from chart review and direct care nurse discussion and photo review. Right Heel Etiology: Deep Tissue Injury - appears to be resolving (This was not captured on admission however given the pigmentation and observed light color this was likely present on admission but not captured and is currently resolving. Wound Bed: appears to be resolving dry light color of brown maroon noted Drainage / Odor: none pre direct care nurse Edges: ? irregular Melissa wound: ?dry and intact Goals of Treatment: ? Off Load Pressure and foam dressing to aid in pressure redistribution Coccyx not assessed today. - no new topical recommendations to the coccyx at this time. Recommendations: 1. Turn and Reposition every 2 hours and as needed for patient comfort.? Use pillows or wedges to support off loading positions. 2. Off Load all bony prominences with use of pillows and heel boots if needed.? Apply Preventative foams where needed. ? 3. Monitor for incontinence and moisture control, use barrier creams when needed for prevention and treatment. 4. Provide adequate and supplemental nutrition.? 5. Order low air loss mattress. 6. When applicable maintain blood glucose levels per Providers order. 7. Coccyx - Cleanse with PH balance spray or wipes, pat dry. ?Apply thin layer of Triad to wound bed. Do not remove all of paste between applications as this may cause further skin damage.? Cover with foam dressing to aid in off loading and protection from friction. Off Load Pressure - Waffle cushion provided. 8. Right Heel - Apply Foam dressing, peel back and assess Q shift change every 3 days. Off Load Pressure with pillows. Re-consult wound care Nurse for wound deterioration or wound changes.
--- NOTE | 2024-01-05 16:50 | P.OP_ITS ---
Operative Note Operative Note Date of Service: 01/05/24 Narrative: Preoperative diagnosis: Right colon adenocarcinoma Postoperative diagnosis: Same Procedure: Hand assisted laparoscopic right colectomy Surgeon: Aleksandr Perez MD Commanding Officer Traffic Division: Geovanna Garcia PA-C, JENNYFER Smith Anesthesia: General endotracheal Indications for procedure: 78-year-old female patient presenting with weakness and anemia found on colonoscopy to have a ulcerated bleeding mass, biopsy-proven invasive adenocarcinoma with moderate differentiation. This was confirmed on CT as well. She presents today for hand assisted laparoscopic right colectomy. Operative findings: Palpable mass in the mid ascending colon approximately 2-3 cm in diameter. The tumor is mostly involving the mesenteric wall of the colon. Specimen: Right colon Estimated blood loss: 5 mL Complications: None Procedure details: Patient was brought to the OR and placed in a supine position. After administering general anesthesia the patient's abdomen was prepped with ChloraPrep and draped in a sterile fashion. A surgical time-out was called the consent confirmed. Dunaway catheter was inserted as well. Patient received preoperative antibiotics and Venodyne boots were in place. Local anesthesia was infiltrated in the midline. A 7 cm incision was then made in the periumbilical location in the midline. This was carried out through subcutaneous tissue through the linea alba into the peritoneum. A hand port was then inserted. The abdomen was then insufflated to a pressure 15 mmHg. A 12 mm trocar was placed in the lower midline. A 5 mm trocar was placed in the upper midline and a 2nd 5 mm trocar placed in the right lower quadrant. The patient was then placed in a Trendelenburg position and rotated to the left. Using the hand for an laparoscopic the right colon was mobilized along the peritoneal reflection. This was continued up to the hepatic flexure. Dissection was continued to the midpoint of the transverse colon to fully mobilize the transverse colon. When the right colon was fully mobilized it was brought up through the hand port. A proximal resection on the terminal ileum was only 10 cm from the ileocecal valve was then identified. The peritoneum was divided using the LigaSure and the bowel stapled and divided using a BOSTON 60 stapler. The mesentery was then dissected down towards the ileocecal vessel. A high ligation of the ileocecal vessel was performed just below the duodenal sweep. This was done using free ties of 0 silk. A location in the right transverse colon. The right branch of the middle colic artery was then divided along the mesentery of the transverse colon. The remaining mesentery was then divided using a LigaSure. Bowel was then divided again using the BOSTON 60 blue. The remaining mesentery was divided with LigaSure and the specimen removed. This was sent to pathology for further examination. Mesentery was then checked for hemostasis. A functional end and ileocolonic anastomosis was then performed. The distal ileum and proximal transverse colon were then placed adjacent to each other and secured using 3-0 Surgilon sutures. An enterotomy was then created at the staple line of both the ileum and transverse colon. A BOSTON 60 blue stapler was then used to create a functional end-to-end anastomosis. The colotomy was then closed using a TA stapler. The staple line was reinforced using Lembert interrupted 3-0 Surgilon sutures. The mesenteric defect was also closed using the 3-0 Surgilon sutures. The crotch of the anastomosis was also reinforced using the 3-0 Surgilon sutures. The bowel was returned to the abdominal cavity. Abdomen was then thoroughly irrigated with saline solution and suctioned dry. Hand port was then removed and all trocars removed. Fascia was closed in the midline using a running 0 PDS suture. Fascia in the lower midline trocar site was closed using a [id number] 0 Polysorb suture. All incisions were then closed using skin brennen. Sterile dressings consisting of 2 x 2 gauze and Tegaderm were then applied. The patient tolerated the procedure well. Sponge, instrument, and needle counts were reported as correct. The patient was transferred to PACU in stable condition. Colon Resection Tumor location: Right colon Extent of lymphovascular resection Right colon (cecum and ascending colon): High ligation of ileocecal artery as well as right branch of the mid colic General Surg. - Synoptic Notes Colon Resection Tumor location: Right colon Extent of Lymphovascular Resection: Right colon (cecum and ascending colon): High ligation of ileocecal artery as well as right branch of the mid colic
[2024-01-05] MEDS: Acetaminophen 1,000 MG/100 ML PIGGYBACK 400 MG IV (18:15)
[2024-01-05] MEDS: oxyCODONE HCl Immed Release 5 MG TABLET PO ×2 (18:15→21:57)
[2024-01-05] MEDS: Lactated Ringers 1,000 ML 100 ML IVCONT (18:23)
[2024-01-05] MEDS: Divalproex Sodium ER 500 MG TAB.ER.24H PO (20:34)
[2024-01-05] MEDS: Nortriptyline HCl 10 MG CAPSULE PO (20:34)
[2024-01-05] MEDS: Atorvastatin Calcium 10 MG TABLET PO (20:34)
[2024-01-05] MEDS: Omeprazole 20 MG CAPSULE.DR PO (20:34)
[2024-01-06] VITALS (11 sets, daily range): BP systolic 83–128; BP diastolic 42–64; PULSE 74–94; RESP 18–20; TEMP 36.1–37; O2SAT 91–97
[2024-01-06] MEDS: 0.9 % Sodium Chloride Flush 3 ML SYRINGE IVFLUSH ×3 (01:01→16:15)
[2024-01-06] MEDS: Acetaminophen 1,000 MG/100 ML PIGGYBACK 400 MG IV ×3 (01:02→16:04)
[2024-01-06] MEDS: Lactated Ringers 1,000 ML 100 ML IVCONT ×3 (04:11→16:05)
[2024-01-06 06:29] LABS: Basophils Percent Auto 0.1 % (0-2); Hematocrit 25.1 % (37.0-47.0); Hemoglobin 8.1 g/dl (12.0-16.0); Imm Gran Abs Auto 0.08 X10*3/uL (0.00-0.03); Imm Gran Pct Auto 0.7 % (0.0-0.4); Lymphocytes Absolute Auto 0.6 X10*3/uL (1.2-4.9); Lymphocytes Percent Auto 4.6 % (20-40); MANUAL DIFF FLAG SCAN; Mean Corpuscular HGB Conc 32.3 g/dl (31.0-35.0); Mean Corpuscular Hemoglobin 30.5 pg (27.0-33.0); Mean Corpuscular Volume 94.4 fL (80.0-98.0); Mean Platelet Volume 9.4 fL (9.4-12.3); Monocytes Absolute Auto 0.3 X10*3/uL (0.1-1.2); Monocytes Percent Auto 2.2 % (2-11); Neutrophils Absolute Auto 11.2 x10*3/uL (2.0-8.3); Neutrophils Percent Auto 92.4 % (45-73); Platelet Count 200 X10*3/uL (160-400); Red Blood Count 2.66 X10*6/uL (4.20-5.50); Red Cell Distribution Width 15.8 % (11.0-16.0); SCAN SMEAR FLAG 1; White Blood Count 12.2 X10*3/uL (4.8-10.8)
[2024-01-06 06:32] LABS: Anion Gap 14 (12-20); Blood Urea Nitrogen 10 mg/dL (9-16); Calcium 8.9 mg/dL (8.4-10.2); Carbon Dioxide 24 mmol/L (22-29); Chloride 107 mmol/L (96-108); Creatinine Clr Calc Pharmacy 62.1; Estimated Glomerular Filt Rate > 60; Glucose Fasting 141 mg/dL (60-99); Potassium 5.2 mmol/L (3.3-5.1); Sodium 140 mmol/L (135-145)
[2024-01-06 07:03] LABS: SLIDE REVIEW VERIFIED
--- NOTE | 2024-01-06 07:44 | P.PNGS_ITS ---
Subjective Subjective Date of Service: 01/06/24 <Geovanna Garcia PA-C - Last Filed: 01/06/24 07:47> 01/06/24 <Aleksandr Perez MD - Last Filed: 01/06/24 08:28> Interval history: Sore when she coughs. Had some soda without nausea or vomiting. Denies flatus. <Geovanna Garcia PA-C - Last Filed: 01/06/24 07:47> Physical Exam 2 Vital Signs: Vital Signs: Last Vital Signs Temp 97.6 F 01/06/24 03:08 Pulse 84 01/06/24 03:08 Resp 18 01/06/24 03:08 BP 124/63 01/06/24 03:08 Pulse Ox 93 01/06/24 03:08 O2 Del Method Nasal Cannula 01/06/24 03:08 O2 Flow Rate 2 01/06/24 03:08 BMI result Body Mass Index 27.3 <Geovanna Garcia PA-C - Last Filed: 01/06/24 07:47> Const: General: comfortable, no acute distress and alert <Geovanna Garcia PA-C - Last Filed: 01/06/24 07:47> Resp: Effort & Inspection: normal respiratory effort <CHRIS Sheets Last Filed: 01/06/24 07:47> GI: Inspection: Yes distended (mild) and Yes incision (dressing c/d/i) < Geovanna aGrcia PA-C - Last Filed: 01/06/24 07:47> Palpation (GI): Soft to palpation, Tenderness to palpation present (GI) (mild incisional) and no guarding <Geovanna Garcia PA-C - Last Filed: 01/06/24 07:47> Skin: General skin exam: no rashes or lesions noted <CHRIS Sheets Last Filed: 01/06/24 07:47> Neuro: General: moves all extremities <CHRIS Sheets Last Filed: 01/06/24 07:47> Objective Data Active Medications Atorvastatin Calcium (Atorvastatin Calcium 10 Mg Tablet) 10 mg PO BEDTIME [facility] Last Admin: 01/05/24 20:34 Dose: 10 mg Documented By: LE Divalproex Sodium (Divalproex Sodium Er 500 Mg Tab.Er.24h) 500 mg PO BEDTIME [facility] Last Admin: 01/05/24 20:34 Dose: 500 mg Documented By: LE Docusate Sodium (Docusate Sodium 100 Mg Capsule) 100 mg PO BID [facility] Last Admin: 01/05/24 20:34 Dose: Not Given Documented By: LE Non-Admin Reason: Patient Refused Folic Acid (Folic Acid 1 Mg Tablet) 1 mg PO DAILY [facility] Last Admin: 01/05/24 08:05 Dose: 1 mg Documented By: SUNG Hydromorphone HCl (Hydromorphone Hcl 0.5 Mg/0.5 Ml Syringe) 0.5 mg IVPUSH Q3H PRN; Protocol PRN Reason: Pain, Severe (Pain Scale 7-10) Lactated Ringer's (Lr) 1,000 mls @ 100 mls/hr IVCONT .Q10H [facility] Last Admin: 01/06/24 01:05 Dose: Not Given Documented By: KRISTINE Non-Admin Reason: IV Running Lactated Ringer's (Lr) 1,000 mls @ 100 mls/hr IVCONT .Q10H [facility] Last Admin: 01/06/24 04:11 Dose: 100 mls/hr Documented By: KRISTINE Acetaminophen (Ofirmev) 1,000 mg in 100 mls @ 400 mls/hr IV Q6H [facility] Stop: 01/06/24 13:14 Last Infusion: 01/06/24 06:22 Dose: Infused Documented By: KRISTINE Lisinopril (Lisinopril 5 Mg Tablet) 5 mg PO DAILY [facility]; Protocol Last Admin: 01/05/24 08:05 Dose: 5 mg Documented By: SUNG Midodrine (Midodrine Hcl 5 Mg Tablet) 5 mg PO TID PRN PRN Reason: SBP < 90 Non-Formulary Medication (Risperidone Microspheres) 25 mg IM Q14D [facility] Nortriptyline HCl (Nortriptyline Hcl 10 Mg Capsule) 10 mg PO BEDTIME [facility] Last Admin: 01/05/24 20:34 Dose: 10 mg Documented By: LE Omeprazole (Omeprazole 20 Mg Capsule.Dr) 20 mg PO BEDTIME [facility] Last Admin: 01/05/24 20:34 Dose: 20 mg Documented By: LE Ondansetron HCl (Ondansetron Odt 4 Mg Tab.Rapdis) 4 mg TRANSLINGU Q6H PRN PRN Reason: Nausea And Vomiting Ondansetron HCl (Ondansetron Hcl 4 Mg/2 Ml Vial) 4 mg IVPUSH QID PRN PRN Reason: Nausea Oxycodone HCl (Oxycodone Hcl Immed Release 5 Mg Tablet) 5 mg PO Q6H PRN PRN Reason: Pain, Moderate(Pain Scale 4-6) Last Admin: 01/05/24 21:57 Dose: 5 mg Documented By: LE Sodium Chloride (0.9 % Sodium Chloride Flush 3 Ml Syringe) 3 ml IVFLUSH QSHIFT [facility] Last Admin: 01/06/24 01:01 Dose: 3 ml Documented By: ANTOIC <Geovanna Garcia PA-C - Last Filed: 01/06/24 07:47> Labs CBC & Chem 7: 01/06/24 05:55 01/06/24 05:55 <Geovanna Garcia PA-C - Last Filed: 01/06/24 07:47> Labs: Laboratory Results - last 24 hr 01/05/24 01/06/24 11:12 05:55 MCV 94.0 94.4 MCH 30.8 30.5 MCHC 32.8 32.3 RDW 16.6 H 15.8 Plt Count 188 200 MPV 9.5 9.4 Immature Gran % (Auto) 0.7 H 0.7 H Neut % (Auto) 72.8 92.4 H Lymph % (Auto) 14.9 L 4.6 L [place] % (Auto) 7.0 2.2 Eos % (Auto) 4.1 H 0.0 Baso % (Auto) 0.5 0.1 Lymph # (Auto) 1.2 0.6 L [place] # (Auto) 0.6 0.3 Eos # (Auto) 0.3 0.0 Baso # (Auto) 0.0 0.0 Abs Immat Gran (auto) 0.06 H 0.08 H Absolute Neuts (auto) 5.8 11.2 H Absolute Nucleated RBC 0.000 0.000 Nucleated RBC % (auto) 0.0 0.0 Smear Tech's Comments VERIFIED Anion Gap 14 Estim Creat Clear Calc 62.1 Estimated GFR > 60 Fasting Glucose 141 H Calcium 8.9 Blood Type A Positive Antibody Screen NEGATIVE <Geovanna Garcia PA-C - Last Filed: 01/06/24 07:47> Procedures Date of Service Date of Service: 01/06/24 <Geovanna Garcia PA-C - Last Filed: 01/06/24 07:47> 01/06/24 <Aleksandr Perez MD - Last Filed: 01/06/24 08:28> Progress Note: A&P Assessment and plan (1) GI bleed: Status: Acute <Geovanna Garcia PA-C - Last Filed: 01/06/24 07:47> (2) Colon neoplasm: Status: Acute <Geovanna Garcia PA-C - Last Filed: 01/06/24 07:47> (3) S/P right colectomy: Status: Acute <Geovanna Garcia PA-C - Last Filed: 01/06/24 07:47> Assessment and Plan: POD #1 s/p Hand assisted laparoscopic right colectomy. Doing fairly well post op. Hemodynamically stable this morning. Abd benign with appropriate post op tenderness, clean and intact dressings. Dc sutton. OOB/ambulation today. Cont clear liquids for now until return of GI function. <Geovanna Garcia PA-C - Last Filed: 01/06/24 07:47> POD #1 s/p Hand assisted laparoscopic right colectomy. Doing fairly well post op. Hemodynamically stable this morning. Abd benign with appropriate post op tenderness, clean and intact dressings. Dc sutton. OOB/ambulation today. Cont clear liquids for now until return of GI function. Agree with the above assessment and plan. Resume PT. Stay on clears for now. <Aleksandr Perez MD - Last Filed: 01/06/24 08:28> Time Spent With Patient Time: Total time managing care of this patient today ____ minutes. <Geovanna Garcia PA-C - Last Filed: 01/06/24 07:47> Quality Stroke Does the patient have a stroke diagnosis?: No <Geovanna Garcia PA-C - Last Filed: 01/06/24 07:47> VTE Prior VTE?: No <Geovanna Garcia PA-C - Last Filed: 01/06/24 07:47> VTE Risk Level:: Medical - moderate - high <Geovanna Garcia PA-C - Last Filed: 01/06/24 07:47> VTE Device Contraindication: N/A - Device Ordered <Geovanna Garcia PA-C - Last Filed: 01/06/24 07:47> VTE Drug Contraindication: Treatment Not Indicated <Geovanna Garcia PA-C - Last Filed: 01/06/24 07:47>
--- NOTE | 2024-01-06 08:46 | HO.POSTANES ---
Post Anesthesia Evaluation Post Anesthesia Evaluation Date of Service: 01/06/24 Vital Signs: Vital Signs Temp Pulse Resp BP Pulse Ox O2 Del Method O2 Flow Rate 01/06/24 08:00 96.9 F 94 20 115/58 L 96 Nasal Cannula 2 01/06/24 03:08 97.6 F 84 18 124/63 93 Nasal Cannula 2 01/05/24 23:52 97.7 F 100 20 131/63 95 Nasal Cannula 2 Anesthesia: General Endotracheal-GETA Mental Status: Awake Pain Control: Satisfactory Nausea/Vomiting: None Hydration: Adequate Anesthesia-Related Issues: No Anes. Related Issues
[2024-01-06] MEDS: lisinopriL 5 MG TABLET PO (09:07)
[2024-01-06] MEDS: Folic Acid 1 MG TABLET PO (09:08)
--- NOTE | 2024-01-06 11:22 | MHC.CLN ---
F/U PT WITH INCREASED NUTRITION RISK R/T PRESSURE INJURY PT IS S/P COLECTOMY DIET ADVANCED TO CLEAR LIQUIDS RECOMMEND STARTING ENSURE CLEAR TID TO INCREASE KCALS AND PROMOTE WOUND HEALING SUPP TO PROVIDE 720KCALS, 24G PROTEIN MONITOR PO INTAKE AND SUPPLEMENT ACCEPTANCE
--- NOTE | 2024-01-06 11:43 | HO.PM.IMPN ---
Subjective Subjective Date of Service: 01/06/24 Interval History: no further bleeding Physical Exam Vital Signs: Vital Signs: Last Vital Signs Temp 96.9 F 01/06/24 08:00 Pulse 94 01/06/24 08:00 Resp 20 01/06/24 08:00 BP 115/58 L 01/06/24 09:07 Pulse Ox 96 01/06/24 08:00 O2 Del Method Nasal Cannula 01/06/24 08:00 O2 Flow Rate 2 01/06/24 08:00 BMI result Body Mass Index 27.3 Const: General: comfortable, no acute distress and alert Resp: Effort & Inspection: normal respiratory effort GI: Inspection: Yes distended (mild) and Yes incision (dressing c/d/i) Palpation (GI): Soft to palpation, Tenderness to palpation present (GI) (mild incisional) and no guarding Skin: General skin exam: no rashes or lesions noted Neuro: General: moves all extremities Objective Data Active Medications Atorvastatin Calcium (Atorvastatin Calcium 10 Mg Tablet) 10 mg PO BEDTIME [facility] Last Admin: 01/05/24 20:34 Dose: 10 mg Documented By: LE Divalproex Sodium (Divalproex Sodium Er 500 Mg Tab.Er.24h) 500 mg PO BEDTIME [facility] Last Admin: 01/05/24 20:34 Dose: 500 mg Documented By: LE Docusate Sodium (Docusate Sodium 100 Mg Capsule) 100 mg PO BID [facility] Last Admin: 01/06/24 09:11 Dose: Not Given Documented By: SUNG Non-Admin Reason: Patient Refused Folic Acid (Folic Acid 1 Mg Tablet) 1 mg PO DAILY [facility] Last Admin: 01/06/24 09:08 Dose: 1 mg Documented By: SUNG Hydromorphone HCl (Hydromorphone Hcl 0.5 Mg/0.5 Ml Syringe) 0.5 mg IVPUSH Q3H PRN; Protocol PRN Reason: Pain, Severe (Pain Scale 7-10) Lactated Ringer's (Lr) 1,000 mls @ 100 mls/hr IVCONT .Q10H [facility] Last Admin: 01/06/24 01:05 Dose: Not Given Documented By: ANTOIC Non-Admin Reason: IV Running Lactated Ringer's (Lr) 1,000 mls @ 100 mls/hr IVCONT .Q10H [facility] Last Admin: 01/06/24 04:11 Dose: 100 mls/hr Documented By: ANTKATHLEEN Acetaminophen (Ofirmev) 1,000 mg in 100 mls @ 400 mls/hr IV Q6H [facility] Stop: 01/06/24 13:14 Last Infusion: 01/06/24 06:22 Dose: Infused Documented By: KRISTINE Lisinopril (Lisinopril 5 Mg Tablet) 5 mg PO DAILY [facility]; Protocol Last Admin: 01/06/24 09:07 Dose: 5 mg Documented By: SUNG Midodrine (Midodrine Hcl 5 Mg Tablet) 5 mg PO TID PRN PRN Reason: SBP < 90 Non-Formulary Medication (Risperidone Microspheres) 25 mg IM Q14D [facility] Nortriptyline HCl (Nortriptyline Hcl 10 Mg Capsule) 10 mg PO BEDTIME [facility] Last Admin: 01/05/24 20:34 Dose: 10 mg Documented By: LE Omeprazole (Omeprazole 20 Mg Capsule.Dr) 20 mg PO BEDTIME [facility] Last Admin: 01/05/24 20:34 Dose: 20 mg Documented By: LE Ondansetron HCl (Ondansetron Odt 4 Mg Tab.Rapdis) 4 mg TRANSLINGU Q6H PRN PRN Reason: Nausea And Vomiting Ondansetron HCl (Ondansetron Hcl 4 Mg/2 Ml Vial) 4 mg IVPUSH QID PRN PRN Reason: Nausea Oxycodone HCl (Oxycodone Hcl Immed Release 5 Mg Tablet) 5 mg PO Q6H PRN PRN Reason: Pain, Moderate(Pain Scale 4-6) Last Admin: 01/05/24 21:57 Dose: 5 mg Documented By: LE Sodium Chloride (0.9 % Sodium Chloride Flush 3 Ml Syringe) 3 ml IVFLUSH QSHIFT [facility] Last Admin: 01/06/24 09:08 Dose: 3 ml Documented By: SUNG Labs 01/06/24 05:55 01/06/24 05:55 Labs: Laboratory Results - last 24 hr 01/05/24 01/06/24 11:12 05:55 MCV 94.4 MCH 30.5 MCHC 32.3 RDW 15.8 Plt Count 200 MPV 9.4 Immature Gran % (Auto) 0.7 H Neut % (Auto) 92.4 H Lymph % (Auto) 4.6 L [place] % (Auto) 2.2 Eos % (Auto) 0.0 Baso % (Auto) 0.1 Lymph # (Auto) 0.6 L [place] # (Auto) 0.3 Eos # (Auto) 0.0 Baso # (Auto) 0.0 Abs Immat Gran (auto) 0.08 H Absolute Neuts (auto) 11.2 H Absolute Nucleated RBC 0.000 Nucleated RBC % (auto) 0.0 Smear Tech's Comments VERIFIED Anion Gap 14 Estim Creat Clear Calc 62.1 Estimated GFR > 60 Fasting Glucose 141 H Calcium 8.9 Blood Type A Positive Antibody Screen NEGATIVE Assessment and Plan (1) ABLA (acute blood loss anemia): Status: Acute (2) Acute lower GI bleeding: Status: Acute (3) Mass in rectum: Status: Acute Plan 78F PMH HTN, HLD, cognitive disorder, hx of TIA, hx of DVT/PE, hx of breast cancer, GERD, and bipolar I disorder with recent admission to hospitalist service from 11/28-12/08 due to left hip fracture s/p hemiarthroplasty on 12/03 also found to have pulmonary embolism with type 2 NSTEMI with IVC filter placed 12/01 and started on Eliquis presented lightheaded found to have severe anemia Acute blood loss anemia due to 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 Transfused 2 units PRBCs, repeated stable eliquis on hold, underwent colonoscopy 01/01/24 revealed right sided neoplasm, biopsy taken - adeno s/p surgery 01/05/24 acute hypotension resolved, not due to sepsis Acute kidney injury likely 2/2 hypotension resolved SIRS criteria resolved, no sepsis acute UTI mixed john in culture, culture from 12/25 ecolic sensitive to rocephin completed 5 days IV ceftriaxone (initiated 12/28) acute lactic acidosis resolved Hx hypertension restarting lisinopril HLD continue statin recent PE/DVT diagnosed 11/29/23 s/p IVC filter placement 12/02/23 holding Eliquis, restart when okay with surgery recent left hip fracture s/p hemiarthroplasty PT recommending str DVT prophylaxis- SCPs due to gi bleed DNR/DNI reason for continued hospitalization: awaiting return of gi function Quality Stroke Does the patient have a stroke diagnosis?: No VTE Prior VTE?: No VTE Risk Level:: Medical - moderate - high VTE Device Contraindication: N/A - Device Ordered VTE Drug Contraindication: Treatment Not Indicated
--- NOTE | 2024-01-06 14:06 | HO.WOUND ---
Wound Consult: Follow up for Right Foot 78yr old? female admitted to [facility] on 12/29/23 - See progress notes and H&P for detailed history.? New wound consult placed for Right Heel.? Arrival to bedside patient was agreeable to wound assessment. 01/02/24 01/06/24 Todays assessment - resolving Right Heel Etiology: Resolving and resurfacing Deep Tissue Injury (This was not captured on admission however given the pigmentation and observed light color this was likely present on admission but not captured and is currently resolving. Wound Bed: appears to be resolving dry light color of maroon noted Drainage / Odor: none Edges: ? irregular Melissa wound: ?dry and intact Goals of Treatment: ? Off Load Pressure and foam dressing to aid in pressure redistribution Coccyx not assessed today. - no new topical recommendations to the coccyx at this time. Recommendations: 1. Turn and Reposition every 2 hours and as needed for patient comfort.? Use pillows or wedges to support off loading positions. 2. Off Load all bony prominences with use of pillows and heel boots if needed.? Apply Preventative foams where needed. ? 3. Monitor for incontinence and moisture control, use barrier creams when needed for prevention and treatment. 4. Provide adequate and supplemental nutrition.? 5. Order low air loss mattress. 6. When applicable maintain blood glucose levels per Providers order. 7. Coccyx - Cleanse with PH balance spray or wipes, pat dry. ?Apply thin layer of Triad to wound bed. Do not remove all of paste between applications as this may cause further skin damage.? Cover with foam dressing to aid in off loading and protection from friction. Off Load Pressure - Waffle cushion provided. 8. Right Heel - Apply Foam dressing, peel back and assess Q shift change every 3 days. Off Load Pressure with pillows. Re-consult wound care Nurse for wound deterioration or wound changes.
[2024-01-06] MEDS: Omeprazole 20 MG CAPSULE.DR PO (20:51)
[2024-01-06] MEDS: Atorvastatin Calcium 10 MG TABLET PO (20:51)
[2024-01-06] MEDS: Midodrine HCl 5 MG TABLET PO (20:51)
[2024-01-06] MEDS: Divalproex Sodium ER 500 MG TAB.ER.24H PO (20:51)
[2024-01-06] MEDS: Lactated Ringers 1,000 ML 999 ML IV (20:57)
[2024-01-06 21:35] LABS: Hematocrit 22.2 % (37.0-47.0); Hemoglobin 7.7 g/dl (12.0-16.0); Mean Corpuscular HGB Conc 34.7 g/dl (31.0-35.0); Mean Corpuscular Hemoglobin 30.9 pg (27.0-33.0); Mean Corpuscular Volume 89.2 fL (80.0-98.0); Mean Platelet Volume 10.4 fL (9.4-12.3); Platelet Count 189 X10*3/uL (160-400); Red Blood Count 2.49 X10*6/uL (4.20-5.50); Red Cell Distribution Width 15.8 % (11.0-16.0); White Blood Count 15.7 X10*3/uL (4.8-10.8)
[2024-01-06] MEDS: oxyCODONE HCl Immed Release 5 MG TABLET PO (22:42)
[2024-01-07] VITALS (9 sets, daily range): BP systolic 101–131; BP diastolic 45–59; PULSE 78–117; RESP 12–20; TEMP 36.2–36.8; O2SAT 92–98
[2024-01-07] MEDS: Lactated Ringers 1,000 ML 100 ML IVCONT (05:05)
[2024-01-07 07:36] LABS: Hemoglobin 7.2 g/dl (12.0-16.0); Mean Corpuscular HGB Conc 31.3 g/dl (31.0-35.0); Mean Corpuscular Hemoglobin 29.9 pg (27.0-33.0); Mean Corpuscular Volume 95.4 fL (80.0-98.0); Mean Platelet Volume 10.4 fL (9.4-12.3); Platelet Count 200 X10*3/uL (160-400); Red Blood Count 2.41 X10*6/uL (4.20-5.50); Red Cell Distribution Width 15.9 % (11.0-16.0); White Blood Count 9.1 X10*3/uL (4.8-10.8)
[2024-01-07 07:46] LABS: Anion Gap 12 (12-20); Blood Urea Nitrogen 9 mg/dL (9-16); Calcium 8.9 mg/dL (8.4-10.2); Carbon Dioxide 25 mmol/L (22-29); Chloride 108 mmol/L (96-108); Creatinine Clr Calc Pharmacy 63.8; Estimated Glomerular Filt Rate > 60; Glucose Fasting 93 mg/dL (60-99); Potassium 4.4 mmol/L (3.3-5.1); Sodium 141 mmol/L (135-145)
--- NOTE | 2024-01-07 08:47 | P.PNGS_ITS ---
Subjective Subjective Date of Service: 01/07/24 <Geovanna Garcia PA-C - Last Filed: 01/07/24 08:50> 01/07/24 <Aleksandr Perez MD - Last Filed: 01/07/24 08:51> Interval history: Had difficult night with pain, somewhat improved this morning. Denies nausea. Tolerating clear liquids and feels hungry this morning. Denies flatus or BM. Would like to eat solid food. Was OOB to recliner yesterday, using IS. < Geovanna Garcia PA-C - Last Filed: 01/07/24 08:50> Physical Exam 2 Vital Signs: Vital Signs: Last Vital Signs Temp 97.4 F 01/07/24 07:36 Pulse 78 01/07/24 07:36 Resp 17 01/07/24 07:36 BP 118/58 L 01/07/24 07:36 Pulse Ox 98 01/07/24 07:36 O2 Del Method Nasal Cannula 01/07/24 07:36 O2 Flow Rate 2 01/07/24 07:36 BMI result Body Mass Index 27.3 <Geovanna Garcia PA-C - Last Filed: 01/07/24 08:50> Const: General: comfortable, no acute distress and alert <CHRIS Sheets Last Filed: 01/07/24 08:50> Resp: Effort & Inspection: normal respiratory effort <Geovanna Garcia PA-C - Last Filed: 01/07/24 08:50> GI: Inspection: Yes distended (mild, soft ) and Yes incision (clean) < Geovanna Garcia PA-C - Last Filed: 01/07/24 08:50> Palpation (GI): Soft to palpation, Tenderness to palpation present (GI) (mild incisional) and no guarding <CHRIS Sheets Last Filed: 01/07/24 08:50> Skin: General skin exam: no rashes or lesions noted <CHRIS Sheets Last Filed: 01/07/24 08:50> Objective Data Active Medications Acetaminophen (Acetaminophen 325 Mg Tablet) 975 mg PO Q6H PRN PRN Reason: mild pain, headache or fever Atorvastatin Calcium (Atorvastatin Calcium 10 Mg Tablet) 10 mg PO BEDTIME [facility] Last Admin: 01/06/24 20:51 Dose: 10 mg Documented By: SENG Divalproex Sodium (Divalproex Sodium Er 500 Mg Tab.Er.24h) 500 mg PO BEDTIME [facility] Last Admin: 01/06/24 20:51 Dose: 500 mg Documented By: SENG Docusate Sodium (Docusate Sodium 100 Mg Capsule) 100 mg PO BID [facility] Last Admin: 01/06/24 20:52 Dose: Not Given Documented By: SENG Non-Admin Reason: pt refused Folic Acid (Folic Acid 1 Mg Tablet) 1 mg PO DAILY [facility] Last Admin: 01/06/24 09:08 Dose: 1 mg Documented By: SUNG Hydromorphone HCl (Hydromorphone Hcl 0.5 Mg/0.5 Ml Syringe) 0.5 mg IVPUSH Q3H PRN; Protocol PRN Reason: Pain, Severe (Pain Scale 7-10) Lactated Ringer's (Lr) 1,000 mls @ 100 mls/hr IVCONT .Q10H [facility] Last Admin: 01/06/24 22:47 Dose: Not Given Documented By: SENG Non-Admin Reason: IV Running Lactated Ringer's (Lr) 1,000 mls @ 100 mls/hr IVCONT .Q10H [facility] Last Admin: 01/07/24 05:05 Dose: 100 mls/hr Documented By: SENG Sodium Chloride (Ns) 100 mls @ 100 mls/hr IV ONCE ONE Stop: 01/07/24 09:02 Lisinopril (Lisinopril 5 Mg Tablet) 5 mg PO DAILY [facility]; Protocol Last Admin: 01/06/24 09:07 Dose: 5 mg Documented By: SUNG Midodrine (Midodrine Hcl 5 Mg Tablet) 5 mg PO TID PRN PRN Reason: SBP < 90 Last Admin: 01/06/24 20:51 Dose: 5 mg Documented By: SENG Comments: per MD Non-Formulary Medication (Risperidone Microspheres) 25 mg IM Q14D [facility] Nortriptyline HCl (Nortriptyline Hcl 10 Mg Capsule) 10 mg PO BEDTIME [facility] Last Admin: 01/06/24 20:54 Dose: Not Given Documented By: SENG Non-Admin Reason: per Omeprazole (Omeprazole 20 Mg Capsule.Dr) 20 mg PO BEDTIME [facility] Last Admin: 01/06/24 20:51 Dose: 20 mg Documented By: SENG Ondansetron HCl (Ondansetron Odt 4 Mg Tab.Rapdis) 4 mg TRANSLINGU Q6H PRN PRN Reason: Nausea And Vomiting Ondansetron HCl (Ondansetron Hcl 4 Mg/2 Ml Vial) 4 mg IVPUSH QID PRN PRN Reason: Nausea Oxycodone HCl (Oxycodone Hcl Immed Release 5 Mg Tablet) 5 mg PO Q6H PRN PRN Reason: Pain, Moderate(Pain Scale 4-6) Last Admin: 01/06/24 22:42 Dose: 5 mg Documented By: SENG Sodium Chloride (0.9 % Sodium Chloride Flush 3 Ml Syringe) 3 ml IVFLUSH QSHIFT [facility] Last Admin: 01/06/24 23:11 Dose: Not Given Documented By: SENG Non-Admin Reason: IV Running <Geovanna Garcia PA-C - Last Filed: 01/07/24 08:50> Labs CBC & Chem 7: 01/07/24 06:41 01/07/24 06:41 <Geovanna Garcia PA-C - Last Filed: 01/07/24 08:50> Labs: Laboratory Results - last 24 hr 01/05/24 01/06/24 01/07/24 11:12 21:04 06:41 MCV 89.2 D 95.4 D MCH 30.9 29.9 MCHC 34.7 31.3 RDW 15.8 15.9 Plt Count 189 200 MPV 10.4 10.4 Absolute Nucleated RBC 0.000 0.000 Nucleated RBC % (auto) 0.0 0.0 Anion Gap 12 Estim Creat Clear Calc 63.8 Estimated GFR > 60 Fasting Glucose 93 Calcium 8.9 Blood Type A Positive Antibody Screen NEGATIVE Crossmatch See Detail <Geovanna Garcia PA-C - Last Filed: 01/07/24 08:50> Procedures Date of Service Date of Service: 01/07/24 <Geovanna Garcia PA-C - Last Filed: 01/07/24 08:50> 01/07/24 <Aleksandr Perez MD - Last Filed: 01/07/24 08:51> Progress Note: A&P Assessment and plan (1) S/P right colectomy: Status: Acute <Geovanna Garcia PA-C - Last Filed: 01/07/24 08:50> Assessment and Plan: POD #2 s/p Hand assisted laparoscopic right colectomy. Continues to do well post op. Abd remains benign with appropriate post op tenderness, clean incisions. Cont to encourage OOB/ambulation, IS today and PT. Will advance to solid diet. Await return of GI function. Final path pending. <Geovanna Garcia PA-C - Last Filed: 01/07/24 08:50> Time Spent With Patient Time: Total time managing care of this patient today ____ minutes. <Geovanna Garcia PA-C - Last Filed: 01/07/24 08:50> Quality Stroke Does the patient have a stroke diagnosis?: No <Geovanna Garcia PA-C - Last Filed: 01/07/24 08:50> VTE Prior VTE?: No <Geovanna Garcia PA-C - Last Filed: 01/07/24 08:50> VTE Risk Level:: Medical - moderate - high <Geovanna Garcia PA-C - Last Filed: 01/07/24 08:50> VTE Device Contraindication: N/A - Device Ordered <Geovanna Garcia PA-C - Last Filed: 01/07/24 08:50> VTE Drug Contraindication: Treatment Not Indicated <CHRIS Sheets Last Filed: 01/07/24 08:50>
[2024-01-07] MEDS: Docusate Sodium 100 MG CAPSULE PO (09:50)
[2024-01-07] MEDS: lisinopriL 5 MG TABLET PO (09:50)
[2024-01-07] MEDS: Folic Acid 1 MG TABLET PO (09:50)
[2024-01-07] MEDS: oxyCODONE HCl Immed Release 5 MG TABLET PO (09:50)
--- NOTE | 2024-01-07 11:25 | MHC.CLN ---
F/U PT WITH INCREASED NUTRITION RISK R/T PRESSURE INJURY PT IS S/P COLECTOMY DIET ADVANCED TO REGULAR-RECOMMEND LOW FIBER DIET R/T COLECTOMY RECOMMEND STARTING ENSURE BID TO INCREASE KCALS AND PROMOTE WOUND HEALING SUPP TO PROVIDE 700KCALS, 60G PROTEIN MONITOR PO INTAKE AND SUPPLEMENT ACCEPTANCE
--- NOTE | 2024-01-07 11:34 | MHC.CM.PN ---
Per ROUNDS discussion, Patient is not yet medically cleared for dc (advancing diet); PT is recommending STR and CM will continue to follow.
[2024-01-07] MEDS: 0.9 % Sodium Chloride Flush 3 ML SYRINGE IVFLUSH (16:17)
--- NOTE | 2024-01-07 16:42 | HO.PM.IMPN ---
Subjective Subjective Date of Service: 01/07/24 Interval History: seen and evaluated this morning not passing gas yet Hb dropped to 7.2 to transfuse blood Review of Systems Review of Systems: Yes all other systems are reviewed and are negative Physical Exam Vital Signs: Vital Signs: Last Vital Signs Temp 97.6 F 01/07/24 16:17 Pulse 95 01/07/24 16:17 Resp 17 01/07/24 16:17 BP 125/59 L 01/07/24 16:17 Pulse Ox 96 01/07/24 15:55 O2 Del Method Room Air 01/07/24 15:55 O2 Flow Rate 2 01/07/24 07:36 BMI result Body Mass Index 27.3 Const: Other: Constitutional : Awake, interactive, not in distress Neck : Normal inspection, Supple Cardiovascular : RRR, no JVP elevation, +1 bilateral Edema Respiratory : good bilateral air entry, no crackles, wheezes or rhonchi Gastrointestinal: soft, lax, decreased bowel sounds, distended, gen tenderness Skin : Warm, Dry Neurological : Alert & oriented x3, No focal deficit Objective Data Active Medications Acetaminophen (Acetaminophen 325 Mg Tablet) 975 mg PO Q6H PRN PRN Reason: mild pain, headache or fever Atorvastatin Calcium (Atorvastatin Calcium 10 Mg Tablet) 10 mg PO BEDTIME [facility] Last Admin: 01/06/24 20:51 Dose: 10 mg Documented By: SENG Divalproex Sodium (Divalproex Sodium Er 500 Mg Tab.Er.24h) 500 mg PO BEDTIME [facility] Last Admin: 01/06/24 20:51 Dose: 500 mg Documented By: SENG Docusate Sodium (Docusate Sodium 100 Mg Capsule) 100 mg PO BID [facility] Last Admin: 01/07/24 09:50 Dose: 100 mg Documented By: MONICA Folic Acid (Folic Acid 1 Mg Tablet) 1 mg PO DAILY [facility] Last Admin: 01/07/24 09:50 Dose: 1 mg Documented By: MONICA Hydromorphone HCl (Hydromorphone Hcl 0.5 Mg/0.5 Ml Syringe) 0.5 mg IVPUSH Q3H PRN; Protocol PRN Reason: Pain, Severe (Pain Scale 7-10) Lisinopril (Lisinopril 5 Mg Tablet) 5 mg PO DAILY [facility]; Protocol Last Admin: 01/07/24 09:50 Dose: 5 mg Documented By: MONICA Midodrine (Midodrine Hcl 5 Mg Tablet) 5 mg PO TID PRN PRN Reason: SBP < 90 Last Admin: 01/06/24 20:51 Dose: 5 mg Documented By: SENG Comments: per Non-Formulary Medication (Risperidone Microspheres) 25 mg IM Q14D [facility] Nortriptyline HCl (Nortriptyline Hcl 10 Mg Capsule) 10 mg PO BEDTIME [facility] Last Admin: 01/06/24 20:54 Dose: Not Given Documented By: SENG Non-Admin Reason: per Omeprazole (Omeprazole 20 Mg Capsule.Dr) 20 mg PO BEDTIME [facility] Last Admin: 01/06/24 20:51 Dose: 20 mg Documented By: SENG Ondansetron HCl (Ondansetron Odt 4 Mg Tab.Rapdis) 4 mg TRANSLINGU Q6H PRN PRN Reason: Nausea And Vomiting Ondansetron HCl (Ondansetron Hcl 4 Mg/2 Ml Vial) 4 mg IVPUSH QID PRN PRN Reason: Nausea Oxycodone HCl (Oxycodone Hcl Immed Release 5 Mg Tablet) 5 mg PO Q6H PRN PRN Reason: Pain, Moderate(Pain Scale 4-6) Last Admin: 01/07/24 09:50 Dose: 5 mg Documented By: MONICA Sodium Chloride (0.9 % Sodium Chloride Flush 3 Ml Syringe) 3 ml IVFLUSH QSHIFT [facility] Last Admin: 01/07/24 16:17 Dose: 3 ml Documented By: MONICA Labs 01/07/24 06:41 01/07/24 06:41 Labs: Laboratory Results - last 24 hr 01/05/24 01/06/24 01/07/24 11:12 21:04 06:41 MCV 89.2 D 95.4 D MCH 30.9 29.9 MCHC 34.7 31.3 RDW 15.8 15.9 Plt Count 189 200 MPV 10.4 10.4 Absolute Nucleated RBC 0.000 0.000 Nucleated RBC % (auto) 0.0 0.0 Anion Gap 12 Estim Creat Clear Calc 63.8 Estimated GFR > 60 Fasting Glucose 93 Calcium 8.9 Blood Type A Positive Antibody Screen NEGATIVE Crossmatch See Detail Assessment and Plan (1) S/P right colectomy: Status: Acute (2) Colon neoplasm: Status: Acute (3) GI bleed: Status: Acute Plan 78F PMH HTN, HLD, cognitive disorder, hx of TIA, hx of DVT/PE, hx of breast cancer, GERD, and bipolar I disorder with recent admission to hospitalist service from 11/28-12/08 due to left hip fracture s/p hemiarthroplasty on 12/03 also found to have pulmonary embolism with type 2 NSTEMI with IVC filter placed 12/01 and started on Eliquis presented lightheaded found to have severe anemia Acute blood loss anemia due to 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 Transfused 2 units PRBCs. Hb dropped to 7.2, to give extra unit eliquis on hold, underwent colonoscopy 01/01/24 revealed right sided neoplasm, biopsy taken - adeno s/p surgery w rt colectomy 01/05/24 not passing gas yet surgery following acute hypotension resolved, not due to sepsis Acute kidney injury likely 2/2 hypotension resolved SIRS criteria resolved, no sepsis acute UTI mixed john in culture, culture from 12/25 ecolic sensitive to rocephin completed 5 days IV ceftriaxone (initiated 12/28) acute lactic acidosis resolved Hx hypertension restarting lisinopril HLD continue statin recent PE/DVT diagnosed 11/29/23 s/p IVC filter placement 12/02/23 holding Eliquis, restart when okay with surgery recent left hip fracture s/p hemiarthroplasty PT recommending str DVT prophylaxis- SCPs due to gi bleed DNR/DNI reason for continued hospitalization: awaiting return of gi function Quality Stroke Does the patient have a stroke diagnosis?: No VTE Prior VTE?: No VTE Risk Level:: Medical - moderate - high VTE Device Contraindication: N/A - Device Ordered VTE Drug Contraindication: Treatment Not Indicated
[2024-01-07] MEDS: Nortriptyline HCl 10 MG CAPSULE PO (19:58)
[2024-01-07] MEDS: Omeprazole 20 MG CAPSULE.DR PO (19:58)
[2024-01-07] MEDS: Divalproex Sodium ER 500 MG TAB.ER.24H PO (19:59)
[2024-01-07] MEDS: Atorvastatin Calcium 10 MG TABLET PO (19:59)
[2024-01-08] VITALS: BP 131/58; PULSE 104; RESP 18; TEMP 36.8; O2SAT 93
[2024-01-08] MEDS: 0.9 % Sodium Chloride Flush 3 ML SYRINGE IVFLUSH ×2 (00:15→08:06)
[2024-01-08 04:00] VITALS: BP 118/54; PULSE 93; RESP 16; TEMP 36.8; O2SAT 92
[2024-01-08] MEDS: oxyCODONE HCl Immed Release 5 MG TABLET PO (06:28)
[2024-01-08 07:10] LABS: Hematocrit 27.2 % (37.0-47.0); Hemoglobin 8.9 g/dl (12.0-16.0); Mean Corpuscular HGB Conc 32.7 g/dl (31.0-35.0); Mean Corpuscular Hemoglobin 31.4 pg (27.0-33.0); Mean Corpuscular Volume 96.1 fL (80.0-98.0); Mean Platelet Volume 9.8 fL (9.4-12.3); Platelet Count 200 X10*3/uL (160-400); Red Blood Count 2.83 X10*6/uL (4.20-5.50); Red Cell Distribution Width 15.3 % (11.0-16.0); White Blood Count 7.8 X10*3/uL (4.8-10.8)
[2024-01-08 07:16] VITALS: BP 129/60; PULSE 83; RESP 14; TEMP 36.2; O2SAT 93
[2024-01-08 07:28] LABS: Anion Gap 10 (12-20); Blood Urea Nitrogen 14 mg/dL (9-16); Calcium 8.6 mg/dL (8.4-10.2); Carbon Dioxide 27 mmol/L (22-29); Chloride 107 mmol/L (96-108); Creatinine Clr Calc Pharmacy 57.5; Estimated Glomerular Filt Rate > 60; Glucose Random 86 mg/dL (60-115); Potassium 4.3 mmol/L (3.3-5.1); Sodium 140 mmol/L (135-145)
--- NOTE | 2024-01-08 07:59 | P.PNGS_ITS ---
Subjective Subjective Date of Service: 01/08/24 <Geovanna Garcia PA-C - Last Filed: 01/08/24 08:01> 01/08/24 <Aleksandr Perez MD - Last Filed: 01/08/24 13:00> Interval history: Tolerating solid diet. Passed a small amount of flatus yesterday. OOB to recliner yesterday and participating in PT. Pain reasonably controlled. < Geovanna Garcia PA-C - Last Filed: 01/08/24 08:01> Physical Exam 2 Vital Signs: Vital Signs: Last Vital Signs Temp 97.1 F 01/08/24 07:16 Pulse 83 01/08/24 07:16 Resp 14 01/08/24 07:16 BP 129/60 01/08/24 07:16 Pulse Ox 93 01/08/24 07:16 O2 Del Method Room Air 01/08/24 07:16 O2 Flow Rate 2 01/07/24 07:36 BMI result Body Mass Index 27.3 <Geovanna Garcia PA-C - Last Filed: 01/08/24 08:01> Const: General: comfortable, no acute distress and alert <Geovanna Garcia PA-C - Last Filed: 01/08/24 08:01> Resp: Effort & Inspection: normal respiratory effort <CHRIS Sheets Last Filed: 01/08/24 08:01> GI: Inspection: Yes distended (softly, improved ) and Yes incision (clean, brennen intact ) <Geovanna Garcia PA-C - Last Filed: 01/08/24 08:01> Palpation (GI): Soft to palpation, Tenderness to palpation present (GI) (mild incisional ) and no guarding <Geovanna Garcia PA-C - Last Filed: 01/08/24 08:01> Skin: General skin exam: no rashes or lesions noted <CHRIS Sheets Last Filed: 01/08/24 08:01> Objective Data Active Medications Acetaminophen (Acetaminophen 325 Mg Tablet) 975 mg PO Q6H PRN PRN Reason: mild pain, headache or fever Atorvastatin Calcium (Atorvastatin Calcium 10 Mg Tablet) 10 mg PO BEDTIME [facility] Last Admin: 01/07/24 19:59 Dose: 10 mg Documented By: SERGO Divalproex Sodium (Divalproex Sodium Er 500 Mg Tab.Er.24h) 500 mg PO BEDTIME [facility] Last Admin: 01/07/24 19:59 Dose: 500 mg Documented By: SERGO Docusate Sodium (Docusate Sodium 100 Mg Capsule) 100 mg PO BID [facility] Last Admin: 01/07/24 20:08 Dose: Not Given Documented By: SERGO Non-Admin Reason: loose stools Folic Acid (Folic Acid 1 Mg Tablet) 1 mg PO DAILY [facility] Last Admin: 01/07/24 09:50 Dose: 1 mg Documented By: MONICA Hydromorphone HCl (Hydromorphone Hcl 0.5 Mg/0.5 Ml Syringe) 0.5 mg IVPUSH Q3H PRN; Protocol PRN Reason: Pain, Severe (Pain Scale 7-10) Lisinopril (Lisinopril 5 Mg Tablet) 5 mg PO DAILY [facility]; Protocol Last Admin: 01/07/24 09:50 Dose: 5 mg Documented By: MONICA Midodrine (Midodrine Hcl 5 Mg Tablet) 5 mg PO TID PRN PRN Reason: SBP < 90 Last Admin: 01/06/24 20:51 Dose: 5 mg Documented By: SENG Comments: per MD Non-Formulary Medication (Risperidone Microspheres) 25 mg IM Q14D [facility] Nortriptyline HCl (Nortriptyline Hcl 10 Mg Capsule) 10 mg PO BEDTIME [facility] Last Admin: 01/07/24 19:58 Dose: 10 mg Documented By: SERGO Omeprazole (Omeprazole 20 Mg Capsule.Dr) 20 mg PO BEDTIME [facility] Last Admin: 01/07/24 19:58 Dose: 20 mg Documented By: SERGO Ondansetron HCl (Ondansetron Odt 4 Mg Tab.Rapdis) 4 mg TRANSLINGU Q6H PRN PRN Reason: Nausea And Vomiting Ondansetron HCl (Ondansetron Hcl 4 Mg/2 Ml Vial) 4 mg IVPUSH QID PRN PRN Reason: Nausea Oxycodone HCl (Oxycodone Hcl Immed Release 5 Mg Tablet) 5 mg PO Q6H PRN PRN Reason: Pain, Moderate(Pain Scale 4-6) Last Admin: 01/08/24 06:28 Dose: 5 mg Documented By: SERGO Sodium Chloride (0.9 % Sodium Chloride Flush 3 Ml Syringe) 3 ml IVFLUSH QSHIFT [facility] Last Admin: 01/08/24 00:15 Dose: 3 ml Documented By: SERGO <Geovanna Garcia PA-C - Last Filed: 01/08/24 08:01> Labs CBC & Chem 7: 01/08/24 06:10 01/08/24 06:10 <Geovanna Garcai PA-C - Last Filed: 01/08/24 08:01> Labs: Laboratory Results - last 24 hr 01/05/24 01/07/24 01/08/24 11:12 17:19 06:10 MCV Cancelled 96.1 MCH Cancelled 31.4 MCHC Cancelled 32.7 RDW Cancelled 15.3 Plt Count Cancelled 200 MPV Cancelled 9.8 Absolute Nucleated RBC Cancelled 0.000 Nucleated RBC % (auto) Cancelled 0.0 Anion Gap 10 L Estim Creat Clear Calc 57.5 Estimated GFR > 60 Random Glucose 86 Calcium 8.6 Blood Type A Positive Antibody Screen NEGATIVE Crossmatch See Detail <CHRIS Sheets Last Filed: 01/08/24 08:01> Procedures Date of Service Date of Service: 01/08/24 <CHRIS Sheets Last Filed: 01/08/24 08:01> 01/08/24 <Aleksandr Perez MD - Last Filed: 01/08/24 13:00> Progress Note: A&P Assessment and plan (1) S/P right colectomy: Status: Acute <CHRIS Sheets Last Filed: 01/08/24 08:01> Assessment and Plan: POD #3 s/p Hand assisted laparoscopic right colectomy. Continues to do well post op with good pain control and tolerating solid diet. Abd remains benign with appropriate post op tenderness, clean incisions. Cont to encourage OOB/ambulation, IS today and PT. Final path pending. Can begin dispo planning. Await BM. <Geovanna Garcia PA-C - Last Filed: 01/08/24 08:01> POD #3 s/p Hand assisted laparoscopic right colectomy. Continues to do well post op with good pain control and tolerating solid diet. Abd remains benign with appropriate post op tenderness, clean incisions. Cont to encourage OOB/ambulation, IS today and PT. Final path pending. Can begin dispo planning. Await BM. Patient reported to have a liquid bowel movement. Reports tolerating regular diet without nausea or vomiting. Wounds are clean without erythema or discharge. Agree with the above assessment and plan. Can restart Eliquis for my standpoint. Possible discharge to rehab tomorrow if medically stable. <Aleksandr Perez MD - Last Filed: 01/08/24 13:00> Time Spent With Patient Time: Total time managing care of this patient today ____ minutes. <Geovanna Garcia PA-C - Last Filed: 01/08/24 08:01> Quality Stroke Does the patient have a stroke diagnosis?: No <Geovanna Garcia PA-C - Last Filed: 01/08/24 08:01> VTE Prior VTE?: No <Geovanna Garcia PA-C - Last Filed: 01/08/24 08:01> VTE Risk Level:: Medical - moderate - high <Geovanna Garcia PA-C - Last Filed: 01/08/24 08:01> VTE Device Contraindication: N/A - Device Ordered <Geovanna Gracia PA-C - Last Filed: 01/08/24 08:01> VTE Drug Contraindication: Treatment Not Indicated <Geovanna Garcia PA-C - Last Filed: 01/08/24 08:01>
[2024-01-08] MEDS: Folic Acid 1 MG TABLET PO (08:05)
[2024-01-08] MEDS: lisinopriL 5 MG TABLET PO (08:06)
[2024-01-08] MEDS: Psyllium seed 3.7 GM PACKET PO (08:58)
--- NOTE | 2024-01-08 10:35 | MHC.CM.PN ---
Patient has been medically cleared for dc to SNF/STR today. Patient will return to STR at [facility] today at 1PM, via [facility]. CM spoke with Sister/HCP/Elinor @ [phone] and addressed IMM with her(original will be mailed certified mail to Sister and a copy has been placed on the chart).
[2024-01-08 11:26] VITALS: BP 141/66; PULSE 101; RESP 18; TEMP 36.6; O2SAT 95
--- NOTE | 2024-01-08 11:41 | P.DS_ITS ---
DS: Providers Provider Date of Service: 01/08/24 Date of admission: 12/29/23 20:46 Primary care physician: Jesusita Jo MD Consults: 12/29/23 20:46 Consult to Gastroenterology Routine Consulting Provider: Alex Howard Reason for consultation: gi bleed Has provider been notified: Yes 12/30/23 07:19 Consult to Wound Care Routine Reason for consultation: stage II coccyx Has provider been notified: No 01/01/24 16:34 Consult to General Surgery Routine Consulting Provider: [facility] [place] [facility] Reason for consultation: Ascending colon mass Has provider been notified: No 01/04/24 18:49 Consult to Wound Care Routine Reason for consultation: DTI to right heel DS: Diagnosis Discharge Diagnosis (1) S/P right colectomy: Status: Acute (2) Colon neoplasm: Status: Acute (3) GI bleed: Status: Acute (4) Abnormal CT scan, colon: Status: Acute (5) Mass in rectum: Status: Acute (6) ABLA (acute blood loss anemia): Status: Acute (7) Acute lower GI bleeding: Status: Acute DS: Summary Hospital Course Hospital Course: Admission note HPI 78-year-old female with a PMH significant for?HTN, HLD, cognitive disorder, hx of TIA, hx of DVT/PE, hx of breast cancer, GERD, and bipolar I disorder with recent admission to hospitalist service from 11/28-12/08 due to left hip fracture s/p hemiarthroplasty on 12/03 also found to have pulmonary embolism with type 2 NSTEMI with IVC filter placed 12/01 and started on Eliquis. She was discharged to [facility] for short-term rehab. She reports this morning she felt lightheaded upon waking and labs at the facility showed H/H 5.5/17.4% with soft blood pressures so she was transferred to the emergency room for further evaluation. The patient states she has been feeling generally unwell over the last few days. She does report a single episode of melena on Friday but states she has been constipated. No fevers, chills, abdominal pain, nausea, vomiting, diarrhea, hematochezia, dyspnea, palpitations, syncope, chest pain. On arrival, patient hypotensive to 75/39, 127/45 on admission following IV fluid resuscitation and blood transfusion. She was also initially tachycardic to 107 and tachypneic, likely secondary to anemia, sepsis. She is afebrile. She did have a leukocytosis of 12.0, likely reactive. Initial H/H on arrival 5.5/17.4% 9.6/20 7.8% following 2 units packed red blood cells. PT 13.8, INR 1.1. Given GI bleed with Eliquis use, was given Kcentra. Her creatinine is 1.46, baseline around 0.9-1, BUN 65. Electrolyte levels normal except for CO2 17. Initial lac tic acid 3.6, repeat 2.3, 4 hour repeat 1.4. Hepatic function within normal limits. Urinalysis with 3+ leukocytes, positive nitrites, positive urinary sediment, 2+ bacteria. Stool occult blood positive. Negative for influenza, RSV, COVID-19. CXR unremarkable. CT abdomen/pelvis pending. Patient will be admitted for further management of acute GI bleed. Hospital course The patient was admitted to the hospital for evaluation of Acute blood loss anemia due to GI bleed from colonic adenocarcinoma as shown on CT scan. Her H/H on arrival 5.5/17.4%. Transfused total of 3 units PRBCs with Hb at day of discharge 8.7. eliquis was held as she underwent colonoscopy 01/01/24 revealed right sided neoplasm, biopsy taken and pathology reported adenocarcinoma of colon post surgery w right colectomy 01/05/24 with good response as her diet was advanced gradually to regular and she was able to move her bowels. To followed by surgery as outpatient. On presentation she had acute hypotension which was resolved with IV fluids as well as acute kidney injury that was likely a result of hypotension. corrected back to baseline. Treated for acute UTI with mixed john in culture, culture from 12/25 ecolic sensitive to rocephin. completed 5 days IV ceftriaxone (initiated 12/28) Evaluated by PT who recommended STR placement. Surgical pathology report still pending. To repeat CBC as outpatient in 1 week Discharge plan Restart Eliquis, monitor for bleeding To follow with surgery as outpatient Increase physical activity as tolerated The patient will likely need less than 30 days of SNF stay. Time Attestation Discharge Coordination Time (in mins): 38 Quality: Safe Use of Opioids Does Pt have an Active Cancer Diagnosis on the Problem List?: No Quality: Stroke Does the patient have a stroke diagnosis?: No Physical Exam Vital Signs: Vital Signs: Last Vital Signs Temp 97.8 F 01/08/24 11:26 Pulse 101 H 01/08/24 11:26 Resp 18 01/08/24 11:26 BP 141/66 H 01/08/24 11:26 Pulse Ox 95 01/08/24 11:26 O2 Del Method Room Air 01/08/24 11:26 O2 Flow Rate 2 01/07/24 07:36 BMI result Body Mass Index 27.3 Const: Other: Constitutional : Awake, interactive, not in distress Neck : Normal inspection, Supple Cardiovascular : RRR, no JVP elevation, +1 bilateral Edema Respiratory : good bilateral air entry, no crackles, wheezes or rhonchi Gastrointestinal: soft, lax, decreased bowel sounds, distended, gen tenderness Skin : Warm, Dry Neurological : Alert & oriented x3, No focal deficit DS: Data Data Completed and Pending Completed studies during hospitalization [Text1]: Pending at discharge 01/01/24 15:10 Surgical [PTH] Routine Procedures Extirpation of Matter from Left Pulmonary Artery, Percutaneous Approach (11/29/23) Insertion of Intraluminal Device into Inferior Vena Cava, Percutaneous Approach (11/29/23) Replacement of Left Hip Joint, Femoral Surface with Synthetic Substitute, Uncemented, Open Approach (11/29/23) Transfusion of Nonautologous Red Blood Cells into Peripheral Vein, Percutaneous Approach (11/29/23) Pending studies at discharge: Pending at discharge 01/05/24 16:30 Surgical [PTH] Routine Labs on day of discharge: Laboratory Results - last 24 hr 01/05/24 01/07/24 01/08/24 11:12 17:19 06:10 WBC Cancelled 7.8 RBC Cancelled 2.83 L Hgb Cancelled 8.9 L D Hct Cancelled 27.2 L MCV Cancelled 96.1 MCH Cancelled 31.4 MCHC Cancelled 32.7 RDW Cancelled 15.3 Plt Count Cancelled 200 MPV Cancelled 9.8 Absolute Nucleated RBC Cancelled 0.000 Nucleated RBC % (auto) Cancelled 0.0 Sodium 140 Potassium 4.3 Chloride 107 Carbon Dioxide 27 Anion Gap 10 L BUN 14 Creatinine 0.81 Estim Creat Clear Calc 57.5 Estimated GFR > 60 Random Glucose 86 Calcium 8.6 Blood Type A Positive Antibody Screen NEGATIVE Crossmatch See Detail Imaging CT scan - abdomen: Radiologist's impression: ITS Impressions Chest X-Ray 12/29/23 15:16 IMPRESSION: Unremarkable examination. Abdomen/Pelvis CT 12/29/23 18:04 IMPRESSION: 1. Increased attenuation along the posterior wall of the cecum on postcontrast images compared to precontrast images with adjacent circumferential wall thickening. These findings could be associated with a cecal mass and possible acute GI bleed. Recommend GI/colorectal consultation and further evaluation with colonoscopy. 2. Large amount of stool content in the colon and rectum with perirectal stranding and free fluid, concerning for stercoral colitis. 3. Mild asymmetric stranding posterior to the tail of the pancreas and adjacent to the left adrenal gland, indeterminate. Correlate with lipase and amylase for acute pancreatitis. This critical result was discussed with Dr. Gibson at 12/29/2023 8:41 PM and it was ascertained that the content and urgency of the report was understood at the time of direct communication. Discharge Plan Discharge Anticipated Discharge Date/Time: 01/08/24 11:36 Patient Disposition: [facility] Discharge Diagnosis: Rectal mass post resection Referrals: Bashir Strickland [Outside] - 1 Week Jesusita Jo MD [Primary Care Provider] - 1 Week Aleksandr Perez MD [Physician] - 1 Week Discharge Medications: Continued acetaminophen 650 mg tablet extended release 650 mg PO Q6H PRN (Reason: pain) Qty: 60 0RF pantoprazole 20 mg tablet,delayed release (DR/EC) 20 mg PO BEDTIME Qty: 90 1RF simvastatin 20 mg tablet 20 mg PO BEDTIME Qty: 90 1RF lisinopril 5 mg tablet 5 mg PO DAILY furosemide 20 mg tablet 20 mg PO DAILY docusate sodium 100 mg Capsule 100 mg PO BID polyethylene glycol 3350 [Miralax] 17 gram/dose powder 17 g PO DAILY PRN (Reason: constipation) Qty: 119 0RF midodrine 5 mg Tablet 5 mg PO TID PRN (Reason: SBP < 90) Rx Instructions: do not give last dose of day after 6PM or within 4 hrs of bedtime Acidophilus Capsule 1 cap PO BID ondansetron 4 mg Tablet,Disintegrating 4 mg PO Q6H PRN (Reason: Nausea And Vomiting) divalproex 500 mg Tablet Extended Release 24 Hr 500 mg PO BEDTIME Eliquis 5 mg tablet 5 mg PO BID tramadol 25 mg Tablet 25 mg PO Q6H PRN (Reason: Pain) Qty: 20 0RF folic acid 1 mg tablet 1 mg PO DAILY Risperdal Consta 25 mg/2 mL suspension,extended rel recon 25 mg IM Q14D nortriptyline 10 mg capsule 10 mg PO BEDTIME Discontinued nitrofurantoin monohyd/m-cryst 100 mg Capsule 100 mg PO BID Rx Instructions: must administer with a meal/food finish 01/04/24 Discharge Orders: Discharge Order (Routine); Ordered 01/08/24 Ordered By: Mandeep Cat Diet: Advance to usual diet Activity on Discharge: As tolerated Stand Alone Forms: Patient Portal Discharge page Print Language: Czech Other Ambulatory Orders: Basic Metabolic Panel (Routine) Timeframe: 1 Week Facility: [facility] - Location: Laboratory Ordered By: Mandeep Cat Activity Restrictions/Additional Instructions: Ok to shower. You have brennen closing your incision and these will be removed approximately 10-14 days after surgery. NO HEAVY LIFTING (>10lbs) or strenuous activity. Follow up in office with Dr. Perez in 1 week. ([phone]) Call Your Doctor If: -Your temperature exceeds 101.5? F -You experience excessive pain or swelling -You have an unexpected reaction to medication -You have excessive bleeding -You experience continued vomiting/nausea -Your incision begins to separate -Your incision shows signs of infection such as increased redness, swelling, excessive pain, drainage (light blood or clear fluid is normal) or heat Care Plan Goals: Read below Health Concerns: Read below Plan of Treatment: Read below Assessment: Restart Eliquis, monitor for bleeding To follow with surgery as outpatient Increase physical activity as tolerated
[2024-01-08] MEDS: Furosemide 20 MG TABLET PO (11:49)
--- NOTE | 2024-01-08 14:10 | HO.WOUND ---
Wound Consult: Follow up 78yr old? female admitted to [facility] on 12/29/23 - See progress notes and H&P for detailed history.? Wound consult follow up for coccyx wound POA and Right Heel.? Patient agreeable to assessment and photo documentation.? Patient reports significant improvment in discomfort to the coccyx area. 12/31/23 01/08/24 Coccyx Etiology: ?Previously documented Unstageable Pressure Injury ?Present on Admission - Currently revealed itself to be stage 3 Pressure injury POA Wound Bed: Resolving pink moist wound bed Drainage / Odor: None Edges: ? linear and irregular Melissa wound: ?Improving MASD (Moisture Associated Skin Damage) No Induration, Fluctuance or Warmth noted Pain: denies pain Goals of Treatment: ? Off Load Triad and foam dressing waffle cushion applied No new topical recommendations needed. Right Heel remains resolving DTI - improving wound bed. Recommendations: 1. Turn and Reposition every 2 hours and as needed for patient comfort.? Use pillows or wedges to support off loading positions. 2. Off Load all bony prominences with use of pillows and heel boots if needed.? Apply Preventative foams where needed. ? 3. Monitor for incontinence and moisture control, use barrier creams when needed for prevention and treatment. 4. Provide adequate and supplemental nutrition.? 5. Order low air loss mattress. 6. When applicable maintain blood glucose levels per Providers order. 7. Coccyx - Cleanse with PH balance spray or wipes, pat dry. ?Apply thin layer of Triad to wound bed. Do not remove all of paste between applications as this may cause further skin damage.? Cover with foam dressing to aid in off loading and protection from friction. Off Load Pressure - Waffle cushion provided. 8. Right Heel - Elevate heels off of surface of bed - Cleanse with Ns moist gauze cover with foam dressing peel back and assess Q shift and change every 3 days. Re-consult wound care Nurse for wound deterioration or wound changes.
== END 2024-01-08 13:57 | disposition skilled nursing facility (03) | DRG 329 ==
LOC: HO.ED 14:17 → HO.EDOVER 20:56 → HO.IMC 12-30 05:45
PROVIDERS: Internal Medicine; Pathology Anatomic Pathology & Clinical Pathology; Physician Assistant; Physician Assistant Medical; Physician Assistant Surgical; Surgery; Admitting Provider Physician Assistant; Emergency Provider Emergency Medicine; PCP Internal Medicine; Visit Provider Student in an Organized Health Care Education/Training Program
PROC: 0DBK8ZX Excision of Ascending Colon, Via Natural or Artificial Opening Endoscopic, Diagnostic (ICD-10-PCS; principal; 2024-01-01 14:00)
PROC: 0DTE4ZZ Resection of Large Intestine, Percutaneous Endoscopic Approach (ICD-10-PCS; principal; 2024-01-05 14:00)
DX: C18.2 Malignant neoplasm of ascending colon (principal); K57.31 Diverticulosis of large intestine without perforation or abscess with bleeding; D62 Acute posthemorrhagic anemia; E87.21 Acute metabolic acidosis; N17.9 Acute kidney failure, unspecified; R65.10 Systemic inflammatory response syndrome (SIRS) of non-infectious origin without acute organ dysfunction; N39.0 Urinary tract infection, site not specified; K44.9 Diaphragmatic hernia without obstruction or gangrene; F31.9 Bipolar disorder, unspecified; E78.5 Hyperlipidemia, unspecified; I10 Essential (primary) hypertension; Z66 Do not resuscitate; Z20.822 Contact with and (suspected) exposure to COVID-19; Z87.891 Personal history of nicotine dependence; Z86.711 Personal history of pulmonary embolism; Z79.01 Long term (current) use of anticoagulants; Z79.899 Other long term (current) drug therapy
CPT/HCPCS: 0241U; 36415; 71045; 74178; 80048; 80053; 81001; 81210; 82272; 82378; 82947; 83540; 83605; 83735; 85025; 85027; 85610; 85730; 86850; 86900; 86901; 86920; 86923; 87040; 87086; 88305; 88309; 88341; 88342; 93005; 97110; 97162; 97530; 99285; C1758; C9113; J0131; J0696; J1170; J2310; J2704; J2795; J3010; J7120; J7168; P9016; Q9967

== ENCOUNTER → 2023-12-29 15:34 | Outpatient (BNV) | payer MEDICARE, SELFPAY | PROVIDERS: Admitting Provider Physician Assistant; Emergency Provider Emergency Medicine; PCP Internal Medicine; Visit Provider Internal Medicine Cardiovascular Disease | DX: I49.8 Other specified cardiac arrhythmias (principal) | CPT/HCPCS: 93010 ==

== ENCOUNTER → 2023-12-29 20:46 | Outpatient (BNV) | payer MEDICARE, SELFPAY | PROVIDERS: Admitting Provider Physician Assistant; Emergency Provider Emergency Medicine; PCP Internal Medicine; Visit Provider Physician Assistant | DX: K92.2 Gastrointestinal hemorrhage, unspecified (principal); Z90.49 Acquired absence of other specified parts of digestive tract; D49.0 Neoplasm of unspecified behavior of digestive system | CPT/HCPCS: 99223; 99232; 99233; 99239 ==

== ENCOUNTER → 2023-12-29 20:46 | Outpatient (BNV) | payer MEDICARE, SELFPAY | PROVIDERS: Admitting Provider Physician Assistant; Emergency Provider Emergency Medicine; PCP Internal Medicine; Visit Provider Surgery | DX: Z90.49 Acquired absence of other specified parts of digestive tract (principal) | CPT/HCPCS: 44204; 99024; 99222; 99232 ==

== ENCOUNTER 2024-02-03 11:05 | Outpatient (AMB) | payer MEDICARE, SELFPAY ==
--- OUTSIDE RECORDS SUMMARY | 2024-02-03 11:11 | XMS_ITS | Continuity of Care Document ---
Author Organization [facility] Address [address] [place] [address]- Care Team Providers Care Setter Off Name Role Phone Sandro GUNDERSON, Jesusita Solis Primary Care Physician Encounter [facility] Date(s): 09/25/23 - 10/25/23 [facility] [address] [place] [address]- Attending Physician: Merlyn Murillo Admitting Physician: Merlyn [...] vaccine, inactivated 07/06/14 Give n SARS-CoV-2 mRNA ([id number]) vax 02/24/22 Recorded SARS-CoV-2 (COVID-19) mRNA BNT-162b2 [...] acel(Tdap) 9 11/19/12 Given 1Result Comment: [facility] [id number] 2Location History: [facility] 3Result Comment: [07/22/2017] [facility] [id number] 4Result Comment: Done at [facility] [place] [facility] 5Result Comment: Done at [facility] [place] [facility] 6Location History: [facility] 7Result Comment: [06/12/2015] high dose 8Admin Note: VIS GIVEN 9Admin Note: vis given Medications acetaminophen 650 mg oral tablet, extended release 2 tablet, By Mouth, Daily in AM, PRN NEEDED FOR MODERATE PAIN, # 100 tablet, 0 Refills, Maintenance, 11/13/22 11:59:00 EDT, [id number], 161, cm, 08/01/22 11:03:00 EST, Height, 73, [...] 08/29/22 14:10:00 EST, Route to Pharmacy Electronically, [facility]/pharmacy #[id number], Partial fill upon patient request if the [...] 08/29/22 9:05:00 EST, Route to Pharmacy Electronically, [facility]/pharmacy #[id number], Partial fill upon patient request ifthe prescription [...] 01/03/22 11:37:00 EDT, Route to Pharmacy Electronically, [facility]/pharmacy #[id number], 162.56, cm, 01/03/22 11:11:00 EDT, Height, 78.4, kg, 11/16/21 22:27:00 EDT,... Start Date: 01/03/22 Stop Date: 12/29/22 Status: Ordered torsemide 20 mg oral tablet 1 tablet, By Mouth, Daily, PRN NEEDED FOR LEG SWELLING, # 90 tablet, 1 Refills, [facility] [id number],168, cm, 04/02/22 15:54:00 EDT, Height, 74.1, kg, [...] Team Personnel Name: Mily Stein RN Position: [facility] RN Member Role: Primary Care Nurse Name: Geno Cifuentes RN Position: [facility] RN Member Role: Primary Care Nurse Name: Rosa Agustin NP Position: [facility] Associate Professional Member Role: Primary Care Nurse Address: Address: [place] [address]- Name: Felicitas Medellin Position: [facility] Outreach Member Role: Lifetime Consulting Physician Name: Sandro GUNDERSON , Jesusita Solis Position: Reference Physician Member Role: PCP Address: Address: [address] [place] [address]- Name: Steve Saravia RN Position: [facility] RN Member Role: Primary Care Nurse Name: Ella Garcia RN Position: S RN Member Role: Primary Care Nurse Name: Cy Benjamin DO Position: [facility] Renal MD Member Role: Lifetime Consulting Physician Address: Address: [address] [facility] [place] [address]- Name: Stacia Hernandez RN Position: [facility] RN Member Role: Primary Care Nurse Name: Lauren Lund RN Position: [facility] ED RN W/OE and Tasks Member Role: Primary Care Nurse Name: Paula Foss RN Position: [facility] RN Member Role: Primary Care Nurse Address: Address: [address] [place] [address]- [place] Name: Arnol Travis RN Position: [facility] RN Member Role: Primary Care Nurse Name: Nidia De Oliveira RN Position: [facility] RN Member Role: Primary Care Nurse Care Team Related Persons Name: RAFAELA ANDREWS Address: home [address] [place] [address] Name: VALENTINA ARNOLD Address: home [address] [place] [address]
--- NOTE | 2024-02-03 11:33 | A.OFFVIS_ITS ---
Intake Visit Reasons: staple removal Intake Note: This patient presents for a post-op for staple removal. Patient c/o; reports no complaints. Employment Agency Manager Required: No Accompanied by: Self / Same As Patient Allergies No Known Allergies [No Known Allergies*] Allergy (Verified 02/03/24 11:41) Medication List - Last Reconciled 02/03/24 by Aleksandr Perez MD acetaminophen ER 650 mg PO Q6H PRN apixaban (Eliquis) 5 mg PO BID divalproex ER 500 mg PO BEDTIME docusate sodium 100 mg PO BID folic acid 1 mg PO DAILY furosemide 20 mg PO DAILY Lactobacillus acidophilus (Acidophilus capsule) 1 cap PO BID lisinopril 5 mg PO DAILY midodrine 5 mg PO TID PRN nortriptyline 10 mg PO BEDTIME ondansetron 4 mg PO Q6H PRN pantoprazole 20 mg PO BEDTIME polyethylene glycol 3350 (Miralax) 17 grams PO DAILY PRN risperidone microspheres ER (Risperdal Consta) 25 mg IM Q14D simvastatin 20 mg PO BEDTIME tramadol 25 mg PO Q6H PRN HPI Comments Details: 78-year-old female status post hand assisted laparoscopic right colectomy for a right colon adenocarcinoma, moderate to poorly differentiated. Pathology revealed 0 of 19 lymph nodes with metastatic disease. She remains in rehab will be discharged to home next week. In general she feels well and denies any abdominal pain, nausea, vomiting, fever or chills. She is having regular bowel movements. She denies any bleeding or discharge from her incision. [facility] Medical History Colon adenocarcinoma Colon neoplasm Pre-op chest exam Preop cardiovascular exam NSTEMI (non-ST elevated myocardial infarction) Chronic low back pain Rash of neck Hearing impairment Generalized muscle weakness Cognitive disorder TIA (transient ischemic attack) Tremors of nervous system Gait disorder DVT (deep venous thrombosis) Obesity Hyperlipidemia HTN (hypertension) GERD (gastroesophageal reflux disease) Breast cancer Bipolar 1 disorder Surgical History S/P right colectomy (01/05/24) H/O mastectomy Family History Brother Alcohol abuse Polio Substance use disorder Brother Cancer Sister Stroke Mental health disorder Mother HTN (hypertension) Sister Cancer Social History Household Members: None [facility] Housing: Condominium Do you presently have visiting nurse or other home services: Yes Unable to assess alcohol history related to: Refusing to respond Alcohol intake: current Alcohol type: wine Patient Tobacco Use Status: Former Tobacco user Tobacco use type: Smokeless Tobacco Years Smoked: 30 e-Cigarette/Vaping Use: Never Used Second Hand Smoke Exposure: No Advance Directives Date on File: 05/01/22 service: No Sexual orientation: Straight/Heterosexual Cognitive needs: No Hearing needs: No Vision needs: Yes Physical Exam Const General: comfortable Nutritional Appearance: well nourished Limitations: wheelchair Resp Effort & Inspection: normal respiratory effort, no audible wheezes, no cough and no respiratory distress GI Other: Soft, nondistended, nontender. Trocar incisions are clean, dry, and intact without infection or hernia. [place] removed in the incisions found to be well healed. Skin Other: Warm, dry, no rash Assessment & Plan Assessment & Plan (1) Colon adenocarcinoma: Code(s): C18.9 - Malignant neoplasm of colon, unspecified Category: Medical Plan 78-year-old female patient presenting with a right colon carcinoma status post hand assisted laparoscopic right colectomy. She tolerated the procedure well and is doing well today. Pathology results were discussed in detail with the patient. I recommended further evaluation by Medical Oncology. She should also follow up in 1 month. She should continue to avoid lifting greater than 10 lb. Orders: Referrals Hematology & Oncology Referral C18.9 - Malignant neoplasm of colon, unspecified Coding Level of Care Code Global (61088) Diagnoses Colon adenocarcinoma C18.9
== END 2024-02-03 11:48 | disposition home or self-care (01) ==
LOC: HO.HGS 11:05
PROVIDERS: PCP Internal Medicine; Visit Provider Surgery
DX: C18.9 Malignant neoplasm of colon, unspecified (principal)
CPT/HCPCS: 99024

== ENCOUNTER → 2024-02-03 11:05 | Outpatient (BNVA) | payer MEDICARE, SELFPAY | PROVIDERS: PCP Internal Medicine; Visit Provider Surgery | DX: C18.9 Malignant neoplasm of colon, unspecified (principal) | CPT/HCPCS: 99212 ==

== ENCOUNTER 2024-02-05 09:09 | Outpatient (REF) | payer MEDICARE, SELFPAY ==
--- NOTE | ~2024-02-05 | XR_ITS ---
EXAMINATION: XR HIP, LEFT CLINICAL INFORMATION: Left hip pain. COMPARISON: None available. TECHNIQUE: Two views of the left hip. Pelvis one view. FINDINGS: Left hip prosthesis is well-seated in the bony acetabulum. No hardware fracture. No suspicious koffi-hardware lucency to suggest acute periprosthetic fracture or hardware complications. Mild right hip arthritis. Right greater trochanteric spurring. No pubic rami fracture present. Pelvis and sacrum is obscured by bowel contents. Large volume stool in the rectum/sigmoid colon. In the nonobscured pelvic bones, no acute fracture is identified. Spondylosis in the visualized lower lumbar spine. Surgical sutures projected over the right lower quadrant. XR/XR hip LT min 2V IMPRESSION: Left hip prosthesis, without evidence of hardware fracture or findings to suggest hardware complications. Right hip arthritis.
== END 2024-02-05 09:10 | disposition home or self-care (01) ==
LOC: HO.HOSX 09:09
PROVIDERS: Visit Provider Physician Assistant
DX: M25.552 Pain in left hip (principal); Z47.1 Aftercare following joint replacement surgery; Z96.642 Presence of left artificial hip joint
CPT/HCPCS: 73502; 99212

== ENCOUNTER 2024-02-05 10:25 | Outpatient (AMB) | payer MEDICARE, SELFPAY ==
--- NOTE | 2024-02-05 10:46 | A.OFFVIS_ITS ---
Intake Visit Reasons: PO, LT hip hemiarthroplasty 12/04/23 Intake Note: Jing a 78 year old female who presents today in a wheel chair for a post operative visit s/p left hip hemiarthroplasty, DOS 12/04/23 NE. Patient reports she is doing well, denies pain, stating a little discomfort here and there. Allergies No Known Allergies [No Known Allergies*] Allergy (Verified 02/05/24 10:47) Medication List - Last Reconciled 02/05/24 by Fallon Cardona PA-C acetaminophen ER 650 mg PO Q6H PRN apixaban (Eliquis) 5 mg PO BID divalproex ER 500 mg PO BEDTIME docusate sodium 100 mg PO BID folic acid 1 mg PO DAILY furosemide 20 mg PO DAILY Lactobacillus acidophilus (Acidophilus capsule) 1 cap PO BID lisinopril 5 mg PO DAILY midodrine 5 mg PO TID PRN nortriptyline 10 mg PO BEDTIME ondansetron 4 mg PO Q6H PRN pantoprazole 20 mg PO BEDTIME polyethylene glycol 3350 (Miralax) 17 grams PO DAILY PRN risperidone microspheres ER (Risperdal Consta) 25 mg IM Q14D simvastatin 20 mg PO BEDTIME tramadol 25 mg PO Q6H PRN HPI HPI PO, LT hip hemiarthroplasty 12/04/23: Details: 78-year-old female who returns to the office today in a wheelchair for post-op left hip hemiarthroplasty, 12/04/[address] Doran. She states she has no pain however she does have some discomfort in her hip. She is working on physical therapy at rehab with benefits. She is doing well overall and has no concerns today. [facility] Medical History Colon adenocarcinoma Colon neoplasm Pre-op chest exam Preop cardiovascular exam NSTEMI (non-ST elevated myocardial infarction) Chronic low back pain Rash of neck Hearing impairment Generalized muscle weakness Cognitive disorder TIA (transient ischemic attack) Tremors of nervous system Gait disorder DVT (deep venous thrombosis) Obesity Hyperlipidemia HTN (hypertension) GERD (gastroesophageal reflux disease) Breast cancer Bipolar 1 disorder Surgical History S/P right colectomy (01/05/24) H/O mastectomy Family History Brother Alcohol abuse Polio Substance use disorder Brother Cancer Sister Stroke Mental health disorder Mother HTN (hypertension) Sister Cancer Social History Household Members: None Household Members Other:: [facility] Housing: Condominium Do you presently have visiting nurse or other home services: Yes Unable to assess alcohol history related to: Refusing to respond Alcohol intake: current Alcohol type: wine Patient Tobacco Use Status: Former Tobacco user Tobacco use type: Smokeless Tobacco Years Smoked: 30 e-Cigarette/Vaping Use: Never Used Second Hand Smoke Exposure: No Advance Directives Date on File: 05/01/22 service: No Sexual orientation: Straight/Heterosexual Cognitive needs: No Hearing needs: No Vision needs: Yes Review of Systems Const All systems reviewed & are unremarkable except as noted in HPI and below Physical Exam Extrem Other: Left hip: Incision well healed. No erythema, no pain with ROM of hip. She has some discomfort with hip flexion in the thigh. Calf supple, nontender. NVI. Results Reviewed Results Reviewed: Xrays were obtained in the office today and personally reviewed by me of the left hip show intact prosthesis without signs of loosening Assessment & Plan Assessment & Plan (1) History of left hip hemiarthroplasty: Code(s): Z96.642 - Presence of left artificial hip joint Category: Surgical Plan She will continue with physical therapy and occupational therapy at the rehab facility. She is weight bearing as tolerated with the walker. I would like to see her back in 6 weeks with x-rays, sooner if needed. Orders: Orders XR hip LT min 2V 02/05/24 M25.552 - Pain in left hip Patient Instructions: Scribed for Fallon Cardona PA-C, by Silverio Parry medical dosimetrist, on 02/05/2024 at 10:15 AM EST.? I, Fallon Cardona PA-C, have personally reviewed and agree with the information entered by the scribe. Coding Level of Care Code Global (51269) Diagnoses History of left hip hemiarthroplasty Z96.642
== END 2024-02-05 13:02 | disposition home or self-care (01) ==
PROVIDERS: PCP Internal Medicine; Visit Provider Physician Assistant
DX: Z96.642 Presence of left artificial hip joint (principal)
CPT/HCPCS: 99024

== ENCOUNTER 2024-02-16 05:47 | Outpatient (REF) | payer MEDICARE, SELFPAY ==
[2024-02-16 05:33] LABS: MANUAL DIFF FLAG NO
[2024-02-16 05:46] LABS: Basophils Percent Auto 0.5 % (0-2); Eosinophils Absolute Auto 0.2 X10*3/uL (0.0-0.4); Hematocrit 31.1 % (37.0-47.0); Hemoglobin 10.2 g/dl (12.0-16.0); Imm Gran Abs Auto 0.04 X10*3/uL (0.00-0.03); Imm Gran Pct Auto 0.5 % (0.0-0.4); Lymphocytes Absolute Auto 2.4 X10*3/uL (1.2-4.9); Lymphocytes Percent Auto 27.2 % (20-40); Mean Corpuscular HGB Conc 32.8 g/dl (31.0-35.0); Mean Corpuscular Hemoglobin 29.9 pg (27.0-33.0); Mean Corpuscular Volume 91.2 fL (80.0-98.0); Monocytes Absolute Auto 0.5 X10*3/uL (0.1-1.2); Monocytes Percent Auto 6.1 % (2-11); Neutrophils Absolute Auto 5.5 x10*3/uL (2.0-8.3); Neutrophils Percent Auto 63.7 % (45-73); Platelet Count 254 X10*3/uL (160-400); Red Blood Count 3.41 X10*6/uL (4.20-5.50); Red Cell Distribution Width 14.6 % (11.0-16.0); White Blood Count 8.6 X10*3/uL (4.8-10.8)
[2024-02-16 06:17] LABS: Anion Gap 13 (12-20); Blood Urea Nitrogen 25 mg/dL (9-16); Calcium 8.9 mg/dL (8.4-10.2); Carbon Dioxide 27 mmol/L (22-29); Chloride 105 mmol/L (96-108); Estimated Glomerular Filt Rate 55; Glucose Random 80 mg/dL (60-115); Sodium 141 mmol/L (135-145)
== END 2024-02-16 05:48 | disposition home or self-care (01) ==
LOC: HO.MMNH1L 05:47
PROVIDERS: Visit Provider Hospitalist
DX: E11.9 Type 2 diabetes mellitus without complications (principal); I21.4 Non-ST elevation (NSTEMI) myocardial infarction; F31.9 Bipolar disorder, unspecified
CPT/HCPCS: 36415; 80048; 85025

== ENCOUNTER 2024-02-20 06:06 | Outpatient (REF) | payer MEDICARE, SELFPAY ==
[2024-02-20 06:11] LABS: MANUAL DIFF FLAG NO
[2024-02-20 06:31] LABS: Basophils Percent Auto 0.4 % (0-2); Eosinophils Absolute Auto 0.2 X10*3/uL (0.0-0.4); Eosinophils Percent Auto 2.1 % (0-4); Hematocrit 30.5 % (37.0-47.0); Imm Gran Abs Auto 0.02 X10*3/uL (0.00-0.03); Imm Gran Pct Auto 0.3 % (0.0-0.4); Lymphocytes Percent Auto 26.7 % (20-40); Mean Corpuscular HGB Conc 32.8 g/dl (31.0-35.0); Mean Corpuscular Hemoglobin 29.8 pg (27.0-33.0); Mean Corpuscular Volume 90.8 fL (80.0-98.0); Mean Platelet Volume 10.4 fL (9.4-12.3); Monocytes Absolute Auto 0.5 X10*3/uL (0.1-1.2); Monocytes Percent Auto 6.2 % (2-11); Neutrophils Absolute Auto 4.9 x10*3/uL (2.0-8.3); Neutrophils Percent Auto 64.3 % (45-73); Platelet Count 265 X10*3/uL (160-400); Red Blood Count 3.36 X10*6/uL (4.20-5.50); Red Cell Distribution Width 14.5 % (11.0-16.0); White Blood Count 7.6 X10*3/uL (4.8-10.8)
[2024-02-20 06:43] LABS: Anion Gap 12 (12-20); Blood Urea Nitrogen 34 mg/dL (9-16); Calcium 9.3 mg/dL (8.4-10.2); Carbon Dioxide 27 mmol/L (22-29); Chloride 106 mmol/L (96-108); Estimated Glomerular Filt Rate 47; Glucose Random 84 mg/dL (60-115); Magnesium 2.2 mg/dL (1.6-2.6); Potassium 4.1 mmol/L (3.3-5.1); Sodium 141 mmol/L (135-145)
== END 2024-02-20 06:07 | disposition home or self-care (01) ==
LOC: HO.MMNH1L 06:06
PROVIDERS: Visit Provider Hospitalist
DX: M62.59 Muscle wasting and atrophy, not elsewhere classified, multiple sites (principal); Z48.815 Encounter for surgical aftercare following surgery on the digestive system
CPT/HCPCS: 36415; 80048; 83735; 85025

== ENCOUNTER 2024-02-23 07:06 | Outpatient (REF) | payer MEDICARE, SELFPAY ==
[2024-02-23 06:16] LABS: MANUAL DIFF FLAG NO
[2024-02-23 07:13] LABS: Basophils Percent Auto 0.4 % (0-2); Eosinophils Absolute Auto 0.2 X10*3/uL (0.0-0.4); Hemoglobin 9.9 g/dl (12.0-16.0); Imm Gran Abs Auto 0.03 X10*3/uL (0.00-0.03); Imm Gran Pct Auto 0.4 % (0.0-0.4); Lymphocytes Absolute Auto 2.3 X10*3/uL (1.2-4.9); Lymphocytes Percent Auto 32.2 % (20-40); Mean Corpuscular HGB Conc 31.9 g/dl (31.0-35.0); Mean Corpuscular Hemoglobin 29.5 pg (27.0-33.0); Mean Corpuscular Volume 92.3 fL (80.0-98.0); Mean Platelet Volume 10.2 fL (9.4-12.3); Monocytes Absolute Auto 0.5 X10*3/uL (0.1-1.2); Monocytes Percent Auto 6.4 % (2-11); Neutrophils Percent Auto 57.6 % (45-73); Platelet Count 261 X10*3/uL (160-400); Red Blood Count 3.36 X10*6/uL (4.20-5.50); Red Cell Distribution Width 14.6 % (11.0-16.0)
[2024-02-23 07:43] LABS: Anion Gap 13 (12-20); Blood Urea Nitrogen 32 mg/dL (9-16); Calcium 9.3 mg/dL (8.4-10.2); Carbon Dioxide 25 mmol/L (22-29); Chloride 107 mmol/L (96-108); Estimated Glomerular Filt Rate 43; Glucose Random 80 mg/dL (60-115); Potassium 4.1 mmol/L (3.3-5.1); Sodium 141 mmol/L (135-145)
== END 2024-02-23 07:07 | disposition home or self-care (01) ==
LOC: HO.MMNH1L 07:06
PROVIDERS: Visit Provider Hospitalist
DX: E11.9 Type 2 diabetes mellitus without complications (principal); I21.4 Non-ST elevation (NSTEMI) myocardial infarction; F31.9 Bipolar disorder, unspecified
CPT/HCPCS: 36415; 80048; 85025

== ENCOUNTER 2024-03-01 05:49 | Outpatient (REF) | payer MEDICARE, SELFPAY ==
[2024-03-01 05:32] LABS: MANUAL DIFF FLAG NO
[2024-03-01 06:02] LABS: Basophils Percent Auto 0.4 % (0-2); Eosinophils Absolute Auto 0.2 X10*3/uL (0.0-0.4); Hemoglobin 10.2 g/dl (12.0-16.0); Imm Gran Abs Auto 0.02 X10*3/uL (0.00-0.03); Imm Gran Pct Auto 0.3 % (0.0-0.4); Lymphocytes Absolute Auto 2.1 X10*3/uL (1.2-4.9); Lymphocytes Percent Auto 27.6 % (20-40); Mean Corpuscular HGB Conc 32.9 g/dl (31.0-35.0); Mean Corpuscular Hemoglobin 29.9 pg (27.0-33.0); Mean Corpuscular Volume 90.9 fL (80.0-98.0); Mean Platelet Volume 10.5 fL (9.4-12.3); Monocytes Absolute Auto 0.4 X10*3/uL (0.1-1.2); Monocytes Percent Auto 5.8 % (2-11); Neutrophils Absolute Auto 4.8 x10*3/uL (2.0-8.3); Neutrophils Percent Auto 63.9 % (45-73); Platelet Count 237 X10*3/uL (160-400); Red Blood Count 3.41 X10*6/uL (4.20-5.50); Red Cell Distribution Width 14.7 % (11.0-16.0); White Blood Count 7.5 X10*3/uL (4.8-10.8)
[2024-03-01 06:25] LABS: Anion Gap 15 (12-20); Blood Urea Nitrogen 42 mg/dL (9-16); Calcium 8.9 mg/dL (8.4-10.2); Carbon Dioxide 26 mmol/L (22-29); Chloride 103 mmol/L (96-108); Estimated Glomerular Filt Rate 43; Glucose Random 78 mg/dL (60-115); Sodium 140 mmol/L (135-145)
== END 2024-03-01 05:50 | disposition home or self-care (01) ==
LOC: HO.MMNH1L 05:49
PROVIDERS: Visit Provider Hospitalist
DX: E11.9 Type 2 diabetes mellitus without complications (principal); I21.4 Non-ST elevation (NSTEMI) myocardial infarction; F31.9 Bipolar disorder, unspecified
CPT/HCPCS: 36415; 80048; 85025

== ENCOUNTER 2024-03-03 05:57 | Outpatient (REF) | payer MEDICARE, SELFPAY ==
[2024-03-03 06:44] LABS: Valproate 26.1 mcg/mL (50.0-100.0)
[2024-03-03 06:46] LABS: Cholesterol 137 mg/dL (<200); HDL Cholesterol 43 mg/dL (>40); LDL Cholesterol Calculated 71 mg/dL (<100); Triglycerides 119 mg/dL (<150)
== END 2024-03-03 05:58 | disposition home or self-care (01) ==
LOC: HO.MMNH1L 05:57
PROVIDERS: Visit Provider Hospitalist
DX: M62.59 Muscle wasting and atrophy, not elsewhere classified, multiple sites (principal); F31.60 Bipolar disorder, current episode mixed, unspecified; Z79.899 Other long term (current) drug therapy
CPT/HCPCS: 36415; 80061; 80164

== ENCOUNTER 2024-03-08 | Outpatient (REF) | payer MEDICARE, SELFPAY ==
[2024-03-08 05:46] LABS: MANUAL DIFF FLAG NO
[2024-03-08 06:25] LABS: Basophils Percent Auto 0.3 % (0-2); Eosinophils Absolute Auto 0.2 X10*3/uL (0.0-0.4); Eosinophils Percent Auto 2.2 % (0-4); Hemoglobin 10.4 g/dl (12.0-16.0); Imm Gran Abs Auto 0.02 X10*3/uL (0.00-0.03); Imm Gran Pct Auto 0.3 % (0.0-0.4); Lymphocytes Absolute Auto 2.1 X10*3/uL (1.2-4.9); Lymphocytes Percent Auto 31.1 % (20-40); Mean Corpuscular HGB Conc 32.5 g/dl (31.0-35.0); Mean Corpuscular Hemoglobin 29.8 pg (27.0-33.0); Mean Corpuscular Volume 91.7 fL (80.0-98.0); Mean Platelet Volume 10.5 fL (9.4-12.3); Monocytes Absolute Auto 0.4 X10*3/uL (0.1-1.2); Monocytes Percent Auto 6.5 % (2-11); Neutrophils Absolute Auto 4.1 x10*3/uL (2.0-8.3); Neutrophils Percent Auto 59.6 % (45-73); Platelet Count 209 X10*3/uL (160-400); Red Blood Count 3.49 X10*6/uL (4.20-5.50); White Blood Count 6.8 X10*3/uL (4.8-10.8)
[2024-03-08 06:41] LABS: Anion Gap 16 (12-20); Blood Urea Nitrogen 28 mg/dL (9-16); Carbon Dioxide 22 mmol/L (22-29); Chloride 109 mmol/L (96-108); Estimated Glomerular Filt Rate 55; Glucose Random 78 mg/dL (60-115); Sodium 143 mmol/L (135-145)
== END 2024-03-08 00:01 | disposition home or self-care (01) ==
LOC: HO.MMNH1L
PROVIDERS: Visit Provider Hospitalist
DX: E11.9 Type 2 diabetes mellitus without complications (principal); I21.4 Non-ST elevation (NSTEMI) myocardial infarction; F31.9 Bipolar disorder, unspecified
CPT/HCPCS: 36415; 80048; 85025

== ENCOUNTER 2024-03-15 06:08 | Outpatient (REF) | payer MEDICARE, SELFPAY ==
[2024-03-15 06:03] LABS: MANUAL DIFF FLAG NO
[2024-03-15 06:43] LABS: Basophils Percent Auto 0.3 % (0-2); Eosinophils Absolute Auto 0.1 X10*3/uL (0.0-0.4); Hematocrit 31.7 % (37.0-47.0); Hemoglobin 10.4 g/dl (12.0-16.0); Imm Gran Abs Auto 0.02 X10*3/uL (0.00-0.03); Imm Gran Pct Auto 0.3 % (0.0-0.4); Lymphocytes Absolute Auto 2.2 X10*3/uL (1.2-4.9); Lymphocytes Percent Auto 31.5 % (20-40); Mean Corpuscular HGB Conc 32.8 g/dl (31.0-35.0); Mean Corpuscular Hemoglobin 29.9 pg (27.0-33.0); Mean Corpuscular Volume 91.1 fL (80.0-98.0); Mean Platelet Volume 10.2 fL (9.4-12.3); Monocytes Absolute Auto 0.5 X10*3/uL (0.1-1.2); Monocytes Percent Auto 7.2 % (2-11); Neutrophils Absolute Auto 4.2 x10*3/uL (2.0-8.3); Neutrophils Percent Auto 58.7 % (45-73); Platelet Count 248 X10*3/uL (160-400); Red Blood Count 3.48 X10*6/uL (4.20-5.50); Red Cell Distribution Width 15.1 % (11.0-16.0); White Blood Count 7.1 X10*3/uL (4.8-10.8)
[2024-03-15 06:52] LABS: Anion Gap 18 (12-20); Blood Urea Nitrogen 32 mg/dL (9-16); Calcium 9.7 mg/dL (8.4-10.2); Carbon Dioxide 24 mmol/L (22-29); Chloride 104 mmol/L (96-108); Estimated Glomerular Filt Rate 49; Glucose Random 76 mg/dL (60-115); Potassium 3.8 mmol/L (3.3-5.1); Sodium 142 mmol/L (135-145)
== END 2024-03-15 06:09 | disposition home or self-care (01) ==
LOC: HO.MMNH1L 06:08
PROVIDERS: Visit Provider Hospitalist
DX: E11.9 Type 2 diabetes mellitus without complications (principal); I21.4 Non-ST elevation (NSTEMI) myocardial infarction; F31.9 Bipolar disorder, unspecified
CPT/HCPCS: 36415; 80048; 85025

== ENCOUNTER 2024-03-22 05:54 | Outpatient (REF) | payer MEDICARE, SELFPAY ==
[2024-03-22 05:47] LABS: MANUAL DIFF FLAG NO
[2024-03-22 06:16] LABS: Anion Gap 16 (12-20); Blood Urea Nitrogen 29 mg/dL (9-16); Calcium 9.6 mg/dL (8.4-10.2); Carbon Dioxide 24 mmol/L (22-29); Chloride 105 mmol/L (96-108); Estimated Glomerular Filt Rate 43; Glucose Random 87 mg/dL (60-115); Potassium 4.3 mmol/L (3.3-5.1); Sodium 141 mmol/L (135-145)
[2024-03-22 06:17] LABS: Basophils Percent Auto 0.4 % (0-2); Eosinophils Absolute Auto 0.2 X10*3/uL (0.0-0.4); Eosinophils Percent Auto 2.4 % (0-4); Hematocrit 31.6 % (37.0-47.0); Hemoglobin 10.2 g/dl (12.0-16.0); Imm Gran Abs Auto 0.04 X10*3/uL (0.00-0.03); Imm Gran Pct Auto 0.5 % (0.0-0.4); Lymphocytes Absolute Auto 1.9 X10*3/uL (1.2-4.9); Mean Corpuscular HGB Conc 32.3 g/dl (31.0-35.0); Mean Corpuscular Hemoglobin 29.6 pg (27.0-33.0); Mean Corpuscular Volume 91.6 fL (80.0-98.0); Mean Platelet Volume 10.1 fL (9.4-12.3); Monocytes Absolute Auto 0.6 X10*3/uL (0.1-1.2); Monocytes Percent Auto 7.3 % (2-11); Neutrophils Absolute Auto 5.1 x10*3/uL (2.0-8.3); Neutrophils Percent Auto 65.4 % (45-73); Platelet Count 246 X10*3/uL (160-400); Red Blood Count 3.45 X10*6/uL (4.20-5.50); White Blood Count 7.8 X10*3/uL (4.8-10.8)
== END 2024-03-22 05:55 | disposition home or self-care (01) ==
LOC: HO.MMNH1L 05:54
PROVIDERS: Visit Provider Hospitalist
DX: E11.9 Type 2 diabetes mellitus without complications (principal); I21.4 Non-ST elevation (NSTEMI) myocardial infarction; F31.9 Bipolar disorder, unspecified
CPT/HCPCS: 36415; 80048; 85025

== ENCOUNTER 2024-03-29 06:43 | Outpatient (REF) | payer MEDICARE, SELFPAY ==
[2024-03-29 05:59] LABS: MANUAL DIFF FLAG NO
[2024-03-29 06:39] LABS: Anion Gap 11 (12-20); Blood Urea Nitrogen 35 mg/dL (9-16); Calcium 9.2 mg/dL (8.4-10.2); Carbon Dioxide 29 mmol/L (22-29); Chloride 104 mmol/L (96-108); Estimated Glomerular Filt Rate 48; Glucose Random 80 mg/dL (60-115); Potassium 4.2 mmol/L (3.3-5.1); Sodium 140 mmol/L (135-145)
[2024-03-29 07:03] LABS: Basophils Percent Auto 0.4 % (0-2); Eosinophils Absolute Auto 0.2 X10*3/uL (0.0-0.4); Eosinophils Percent Auto 2.6 % (0-4); Hematocrit 31.8 % (37.0-47.0); Hemoglobin 10.4 g/dl (12.0-16.0); Imm Gran Abs Auto 0.04 X10*3/uL (0.00-0.03); Imm Gran Pct Auto 0.5 % (0.0-0.4); Lymphocytes Absolute Auto 2.4 X10*3/uL (1.2-4.9); Lymphocytes Percent Auto 30.6 % (20-40); Mean Corpuscular HGB Conc 32.7 g/dl (31.0-35.0); Mean Corpuscular Hemoglobin 29.6 pg (27.0-33.0); Mean Corpuscular Volume 90.6 fL (80.0-98.0); Mean Platelet Volume 10.2 fL (9.4-12.3); Monocytes Absolute Auto 0.6 X10*3/uL (0.1-1.2); Monocytes Percent Auto 7.1 % (2-11); Neutrophils Absolute Auto 4.6 x10*3/uL (2.0-8.3); Neutrophils Percent Auto 58.8 % (45-73); Platelet Count 234 X10*3/uL (160-400); Red Blood Count 3.51 X10*6/uL (4.20-5.50); Red Cell Distribution Width 15.2 % (11.0-16.0); White Blood Count 7.8 X10*3/uL (4.8-10.8)
== END 2024-03-29 06:44 | disposition home or self-care (01) ==
LOC: HO.MMNH1L 06:43
PROVIDERS: Visit Provider Hospitalist
DX: I21.4 Non-ST elevation (NSTEMI) myocardial infarction (principal); F31.9 Bipolar disorder, unspecified; E11.9 Type 2 diabetes mellitus without complications
CPT/HCPCS: 36415; 80048; 85025

== ENCOUNTER 2024-04-12 | Outpatient (REF) | payer MEDICARE, SELFPAY ==
[2024-04-13 07:53] LABS: Appearance Urine Turbid; Glucose Urine UA Negative (Negative); Leukocyte Esterase Urine Large (3+) (Negative); Nitrite Urine Positive (Negative); PH >= 9.0 (5.0-9.0); UMIC TRIGGER UA YES; Urine Blood Moderate (2+) (Negative); Urine Ketones Negative (Negative); Urine Protein 100 (2+) mg/dL (Neg-Trace)
[2024-04-13 07:54] LABS: Color Urine Yellow
[2024-04-13 08:09] LABS: Bacteria Urine 4+ (None Seen); Hyaline Casts Urine 0-2 /LPF (0-2); RBC Urine 0-2 /HPF (0-2); Squamous Epithelial Cell Urine 0-2 /HPF (0-2); WBC Urine >50 /HPF (0-5)
== END 2024-04-12 00:01 | disposition home or self-care (01) ==
LOC: HO.MMNH1L
PROVIDERS: Visit Provider Hospitalist
DX: E11.9 Type 2 diabetes mellitus without complications (principal); I10 Essential (primary) hypertension; R82.90 Unspecified abnormal findings in urine
CPT/HCPCS: 81001; 87086; 87088; 87186

== ENCOUNTER 2024-04-13 06:09 | Outpatient (REF) | payer MEDICARE, SELFPAY | END 2024-04-13 06:10 | disposition home or self-care (01) | LOC: HO.MMNH1L 06:09 | PROVIDERS: Visit Provider Hospitalist | DX: Z13.89 Encounter for screening for other disorder (principal) ==

== ENCOUNTER → 2024-06-02 08:22 | Outpatient (RCR) | payer OTHER, MEDICARE, SELFPAY ==
--- NOTE | 2023-05-20 14:56 | MHC.PT.EP ---
[facility] [place] [facility] [place] [facility] [place] [facility] [address] Timothy Roy [address] [phone] F: [phone] F: [phone] F: [phone] F: [phone] Physical Therapy Plan of Care Date of Evaluation: 05/20/23 Date of Surgery: Diagnosis: Decreased strength, weakness in arms. Assessment: Patient is a 78 year old R handed female who presents with s/s consistent with shoulder weakness. She does not currently work but enjoys staying active around her home. Patient past medical history is includes cognitive disorder, cancer and bipolar disorder. Current impairments include pain, posture, ROM, strength, activity tolerance and functional mobility. Functional limitations include decreased ability to reach, lift, carry, push, pull and transfer. Patient is motivated with good rehab potential. Skilled PT will address impairments and functional limitations in order to achieve goals. Frequency and Duration: The patient will be seen 2x/week for 5 weeks Short Term Goals: I with HEP - 2 weeks AROM flexion and scaption to 125 b/l - 3 weeks improved postural awareness - 3 weeks Escalation Engineer Goals: strength 4/5 grossly in b/l shoulder - 5 weeks Able to perform all ADLs, transfers without difficulty - 5 weeks SPADI 26 or better out of 130 - 5 weeks ER to 58 b/l - 5 weeks Treatment Plan: Modalities to reduce pain, spasms and effusion. Manual therapy to restore motion and function. Therapeutic exercise to improve strength and flexibility. Neuromuscular re-education for posture and balance. Therapeutic activities to return to functional activities of daily living. Electronically signed by: Atif Schaffer, PT Please sign and return to therapist. Thank you for your referral.
--- NOTE | 2024-06-02 08:21 | MHC.PT.DC ---
[facility] [place] Office [place] Office [place] Office [address] Timothy Roy [address] [facility] [phone] F: [phone] F: [phone] F: [phone] F: [phone] Physical Therapy Discharge Report Diagnosis: Decreased strength, weakness in arms. Date of Surgery: Date of Evaluation: 05/20/23 Date of Discharge: 06/08/23 Treatments to Date: 1 Cancellations to Date: No Shows to Date: Discharge Status: Patient Elected to Stop Discharge Summary: Patient is a 78 year old R handed female who presents with s/s consistent with shoulder weakness. She does not currently work but enjoys staying active around her home. Patient past medical history is includes cognitive disorder, cancer and bipolar disorder. Current impairments include pain, posture, ROM, strength, activity tolerance and functional mobility. Functional limitations include decreased ability to reach, lift, carry, push, pull and transfer. Patient is motivated with good rehab potential. Skilled PT will address impairments and functional limitations in order to achieve goals. Electronically signed by: Atif Schaffer, PT Please sign and return to therapist. Thank you for your referral.
== END | disposition home or self-care (01) ==
LOC: HO.PTCHIC 05-20 13:53
PROVIDERS: PCP Internal Medicine; Visit Provider Internal Medicine
DX: M62.81 Muscle weakness (generalized) (principal)
CPT/HCPCS: 97110; 97163

== ENCOUNTER 2024-06-15 05:38 | Outpatient (REF) | payer MEDICARE, SELFPAY ==
[2024-06-15 05:41] LABS: MANUAL DIFF FLAG NO
[2024-06-15 05:48] LABS: Basophils Percent Auto 0.3 % (0-2); Eosinophils Absolute Auto 0.1 X10*3/uL (0.0-0.4); Eosinophils Percent Auto 0.9 % (0-4); Hematocrit 34.6 % (37.0-47.0); Hemoglobin 11.3 g/dl (12.0-16.0); Imm Gran Abs Auto 0.01 X10*3/uL (0.00-0.03); Imm Gran Pct Auto 0.2 % (0.0-0.4); Lymphocytes Absolute Auto 1.9 X10*3/uL (1.2-4.9); Mean Corpuscular HGB Conc 32.7 g/dl (31.0-35.0); Mean Corpuscular Hemoglobin 31.7 pg (27.0-33.0); Mean Corpuscular Volume 97.2 fL (80.0-98.0); Mean Platelet Volume 10.1 fL (9.4-12.3); Monocytes Absolute Auto 0.7 X10*3/uL (0.1-1.2); Monocytes Percent Auto 12.2 % (2-11); Neutrophils Absolute Auto 3.1 x10*3/uL (2.0-8.3); Neutrophils Percent Auto 53.4 % (45-73); Platelet Count 174 X10*3/uL (160-400); Red Blood Count 3.56 X10*6/uL (4.20-5.50); Red Cell Distribution Width 14.4 % (11.0-16.0); White Blood Count 5.8 X10*3/uL (4.8-10.8)
[2024-06-15 06:05] LABS: Alanine Aminotransferase 11 U/L (0-31); Albumin Level 3.4 g/dL (3.5-5.0); Alkaline Phosphatase 75 U/L (39-117); Anion Gap 14 (12-20); Aspartate Amino Transferase 16 U/L (5-31); Bilirubin Total 0.2 mg/dL (0.0-1.0); Blood Urea Nitrogen 35 mg/dL (9-16); Calcium 9.4 mg/dL (8.4-10.2); Carbon Dioxide 21 mmol/L (22-29); Chloride 110 mmol/L (96-108); Estimated Glomerular Filt Rate 36; Glucose Random 98 mg/dL (60-115); Potassium 4.2 mmol/L (3.3-5.1); Sodium 141 mmol/L (135-145); Total Protein 6.2 g/dL (6.5-8.0)
== END 2024-06-15 05:39 | disposition home or self-care (01) ==
LOC: HO.MMNH1L 05:38
PROVIDERS: Visit Provider Hospitalist
DX: E11.9 Type 2 diabetes mellitus without complications (principal); I26.09 Other pulmonary embolism with acute cor pulmonale
CPT/HCPCS: 36415; 80053; 85025

== ENCOUNTER 2024-06-18 05:42 | Outpatient (REF) | payer MEDICARE, SELFPAY ==
[2024-06-18 06:20] LABS: Anion Gap 14 (12-20); Blood Urea Nitrogen 40 mg/dL (9-16); Carbon Dioxide 21 mmol/L (22-29); Chloride 110 mmol/L (96-108); Estimated Glomerular Filt Rate 39; Glucose Random 82 mg/dL (60-115); Potassium 4.4 mmol/L (3.3-5.1); Sodium 141 mmol/L (135-145)
== END 2024-06-18 05:43 | disposition home or self-care (01) ==
LOC: HO.MMNH1L 05:42
PROVIDERS: Visit Provider Hospitalist
DX: E11.9 Type 2 diabetes mellitus without complications (principal)
CPT/HCPCS: 36415; 80048

== ENCOUNTER 2024-07-08 05:40 | Outpatient (REF) | payer MEDICARE, SELFPAY ==
[2024-07-08 05:42] LABS: MANUAL DIFF FLAG NO
[2024-07-08 06:01] LABS: Basophils Percent Auto 0.3 % (0-2); Eosinophils Absolute Auto 0.2 X10*3/uL (0.0-0.4); Eosinophils Percent Auto 2.4 % (0-4); Hematocrit 29.7 % (37.0-47.0); Imm Gran Abs Auto 0.25 X10*3/uL (0.00-0.03); Imm Gran Pct Auto 2.7 % (0.0-0.4); Lymphocytes Absolute Auto 2.6 X10*3/uL (1.2-4.9); Lymphocytes Percent Auto 27.9 % (20-40); Mean Corpuscular HGB Conc 33.7 g/dl (31.0-35.0); Mean Corpuscular Hemoglobin 32.6 pg (27.0-33.0); Mean Corpuscular Volume 96.7 fL (80.0-98.0); Mean Platelet Volume 9.3 fL (9.4-12.3); Monocytes Absolute Auto 0.7 X10*3/uL (0.1-1.2); Monocytes Percent Auto 7.7 % (2-11); Neutrophils Absolute Auto 5.4 x10*3/uL (2.0-8.3); Platelet Count 272 X10*3/uL (160-400); Red Blood Count 3.07 X10*6/uL (4.20-5.50); Red Cell Distribution Width 13.3 % (11.0-16.0); White Blood Count 9.2 X10*3/uL (4.8-10.8)
[2024-07-08 06:25] LABS: Alanine Aminotransferase 7 U/L (0-31); Albumin Level 2.9 g/dL (3.5-5.0); Alkaline Phosphatase 70 U/L (39-117); Anion Gap 15 (12-20); Aspartate Amino Transferase 19 U/L (5-31); Bilirubin Total 0.2 mg/dL (0.0-1.0); Blood Urea Nitrogen 28 mg/dL (9-16); Calcium 9.1 mg/dL (8.4-10.2); Carbon Dioxide 26 mmol/L (22-29); Chloride 105 mmol/L (96-108); Cholesterol 137 mg/dL (<200); Estimated Glomerular Filt Rate 46; Glucose Random 129 mg/dL (60-115); HDL Cholesterol 29 mg/dL (>40); LDL Cholesterol Calculated 61 mg/dL (<100); Sodium 142 mmol/L (135-145); Total Protein 5.8 g/dL (6.5-8.0); Triglycerides 237 mg/dL (<150)
== END 2024-07-08 05:41 | disposition home or self-care (01) ==
LOC: HO.MMNH1L 05:40
PROVIDERS: Visit Provider Student in an Organized Health Care Education/Training Program
DX: I10 Essential (primary) hypertension (principal)
CPT/HCPCS: 36415; 80053; 80061; 85025

== ENCOUNTER 2024-11-22 05:50 | Outpatient (REF) | payer MEDICARE, SELFPAY ==
[2024-11-22 05:54] LABS: MANUAL DIFF FLAG NO
[2024-11-22 06:25] LABS: Estimated Average Glucose 137 mg/dL; Hemoglobin A1c % 6.4 % (<6.0)
[2024-11-22 06:26] LABS: Basophils Percent Auto 0.3 % (0-2); Eosinophils Absolute Auto 0.3 X10*3/uL (0.0-0.4); Eosinophils Percent Auto 3.4 % (0-4); Hematocrit 30.3 % (37.0-47.0); Hemoglobin 9.1 g/dl (12.0-16.0); Imm Gran Abs Auto 0.05 X10*3/uL (0.00-0.03); Imm Gran Pct Auto 0.7 % (0.0-0.4); Lymphocytes Absolute Auto 1.3 X10*3/uL (1.2-4.9); Mean Corpuscular Hemoglobin 28.1 pg (27.0-33.0); Mean Corpuscular Volume 93.5 fL (80.0-98.0); Mean Platelet Volume 9.5 fL (9.4-12.3); Monocytes Absolute Auto 0.6 X10*3/uL (0.1-1.2); Monocytes Percent Auto 8.4 % (2-11); Neutrophils Absolute Auto 5.1 x10*3/uL (2.0-8.3); Neutrophils Percent Auto 69.2 % (45-73); Platelet Count 281 X10*3/uL (160-400); Red Blood Count 3.24 X10*6/uL (4.20-5.50); Red Cell Distribution Width 16.3 % (11.0-16.0); White Blood Count 7.4 X10*3/uL (4.8-10.8)
[2024-11-22 06:56] LABS: Alanine Aminotransferase < 6 U/L (0-31); Albumin Level 2.9 g/dL (3.5-5.0); Alkaline Phosphatase 68 U/L (39-117); Anion Gap 13 (12-20); Aspartate Amino Transferase 10 U/L (5-31); Bilirubin Total 0.1 mg/dL (0.0-1.0); Blood Urea Nitrogen 20 mg/dL (9-16); Calcium 8.5 mg/dL (8.4-10.2); Carbon Dioxide 24 mmol/L (22-29); Chloride 109 mmol/L (96-108); Estimated Glomerular Filt Rate 50; Glucose Random 125 mg/dL (60-115); Potassium 3.9 mmol/L (3.3-5.1); Sodium 142 mmol/L (135-145)
[2024-11-22 06:58] LABS: Thyroid Stimulating Hormone 0.78 uIU/mL (0.32-4.0)
== END 2024-11-22 05:51 | disposition home or self-care (01) ==
LOC: HO.MMNH1L 05:50
PROVIDERS: Visit Provider Nurse Practitioner
DX: E11.9 Type 2 diabetes mellitus without complications (principal); I49.9 Cardiac arrhythmia, unspecified
CPT/HCPCS: 36415; 80053; 83036; 84443; 85025

== ENCOUNTER 2024-11-30 05:18 | Outpatient (REF) | payer MEDICARE, SELFPAY ==
[2024-11-30 05:20] LABS: MANUAL DIFF FLAG NO
--- OUTSIDE RECORDS SUMMARY | 2024-11-30 05:21 | XMS_ITS | Encounter Summary ---
Author Organization [facility], Address [address] [place] [address] Phone Care Team Providers Care Respite Coordinator Name Role Phone Villa Jiang MD Primary Care Provider Unav ailable Encounter Details Date Type Department Care Team (Late st Contact Info) Description 04/28/2024 Documentation Only [facility], [address] [place] [address] Felicitas Medellin [address] [place] [id number] Social History Tobacco Use Types Packs/Day Years Used Date Smoking Tobacco: Former Alcohol Use Standard Drinks/Week Comments Not Currently 0 (1 standard drink = 0.6 oz pur e alcohol) Comments Unknown Sex and Gender Information Value Date Recorded Sex Assigned at Not on file Legal Sex Female 9:58 AM EDT Gender Identity Not on file Sexual Orientation Not on file documented as of this encounter Plan of Treatment Not on file documented as of this encounter Visit Diagnoses Not on filedocumented in this encounter Care Teams Respite Coordinator Relationship Specialty Start Date End Date Villa Jiang MD [address] [place] [address] PCP - General Internal Medicine 03/19/23 documented as of this encounter
--- OUTSIDE RECORDS SUMMARY | 2024-11-30 05:21 | XMS_ITS | Patient Health Record ---
Author Organization [facility] Address [address] [place] [address] Care Team Providers Care Crisis Clinician Name Role Phone Sandro GUNDERSON, Jesusita Primary Care Provider Alex Soriano Unavailable [phone] Results Component Value Reference Range Notes Basic Metabolic Panel Fastin g Reviewed date:01/01/2024 12:21:26 PM Interpretation: Performing Lab:[facility], [address] [place] [phone] Notes/Report: Unable to obtain, BRIGNOR Sodium 144 135-145 mmol/L Potassium 3.6 3.3-5.1 mmol/L Slight Hemoly sis Chloride 115 96-108 mmol/L Carbon Dioxide 18 22-29 mmol/L Anion Gap 15 12-20 Blood Urea Nitrogen 17 9-16 mg/dL Creatinine 0.62 0.5-1.4 mg/dL Creatinine Clr Calc Pharmacy 75.1 Provided height and weight: 162.56 cm, 72.2 kg. eGFR (calculated from the MDRD study equation) and eCrCl (calculated from the Cockcroft-Gault equation) are based on different parameters and may not yield comparable results. If eCrCl result is absurd, please check patient's height/weight. Estimated Glomerular Filt Rate > 60 NOTE: For -[place] individuals, multiply the result by 1.210. Chronic Kidney Disease: Estimated GFR < 60 mL/min/1.73m2 Severe Kidney Disease: Estimated GFR < 15 mL/min/1.73m2 Glucose Fasting 76 60-99 mg/dL Calcium 8.3 8.4-10.2 mg/dL Pathology (Not yet reviewed by provider) Interpretation: Performing Lab:[facility], [address] [place] [phone] Notes/Report: -- Name: Jing Andrews Age/Sex: 78/F : 1945 Unit#: [id number] Attend Dr: Mandeep Cat MD Re12/29/23 Status : DIS IN Location: [facility] 446-1 Disch: 01/08/24 -- SPEC : [id number] RECD : 01/02/24 STATUS: [place] NUM: [id number] PRIYANKA: 01/01/24-[address] [facility] [address]: Alex Howard MD ENTERED: 01/02/24- SP TYPE: Surgical OTHR DR: Jesusita Jo MD, Raphael MD ORDERED: HE Stain/3, Gross Micro L4, IHC, Add. immunos/4, CDX-2 COMMENTS: Block A se nt to [facility] for BRAF Mutation Analysis on 01/13/24. Block A sent to [facility] for MMR Panel IHC's on 01/05/24. Addendum Addendum 2 Entered: 04/09/24 Please see attached molecular report for BRAF mutations from [facility] with the following results: - BRAF V600E: DETECTED. - BRAF V600K: Not detected - BRAF V600D: Not detected - BRAF V600R: Not detected - BRAF V600G: Not detected See report in its en tirety in the EMR - Reports/Pathology section as a scanned report (camera icon). If ap propriate, a copy has also been sent to the ordering provider's office. Addendum Signed (signature on file) Stefanie Fishman MD 04/09/24 0918 -- Addendum 1 Entered: 01/13/24-0758 By immunohistochemis try, MLH1 and PMS2 are non-immunoreactive in the tumor cells with preserved MSH2 and M SH6 immunoreactivity. 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 BRAF testing will be addended. Correlation with the patient's presentati on and family history is recommended. Technical services f or immunohistochemistry studies performed at [facility] [address] Angelika castellon [place], [place]; [facility] #[id number] Addendum Signed (signature on file) Jean Pierre Street MD 01/13/24 0759 -- CONTINUED ON NEXT PAGE -- Name: Jing Andrews Age/Sex: 78/F : 1945 Unit#: [id number] Attend Dr: Mandeep Cat MD Re12/29/23 Status : DIS IN [facility] Disch: 01/08/24 -- SPEC : [id number] RECD : 01/02/24 STATUS: [place] NUM: [id number] PRIYANKA: 01/01/24-[address]: Alex Howard MD ENTERED: 01/02/24- SP TYPE: Surgical OTHR DR: Jesusita Jo MD, Raphael MD ORDERED: HE Stain/3, Gross Micro L4, IHC, Add. immunos/4, CDX-2 COMMENTS: Block A se nt to [facility] for BRAF Mutation Analysis on 01/13/24. Block A sent to [facility] for MMR Panel IHC's on 01/05/24. Diagnosis Colon, ascending mas s, biopsy: Invasive adenocarcinoma, moderately differentiated (see comment). COMMENT: Immunostain s for DNA mismatch repair proteins are ordered and results will be reported in an addendum. Clinical History Pre-Op Dx: GIB, hypotension Post-Op Dx: Upper: h iatal hernia; Lower: ascending colon mass. Microscopic Description Sections of ascendin g colon mass biopsy demonstrate multiple fragments of colonic mucosa involved by malignan t infiltrating glands in a background of the desmoplastic stroma. Lymphovascular invas ion is not identified. Material Received Ascending colon mass. Gross Description Received in formalin labeled ?ascending colon mass? are 3 holm irregular tissue fragments ranging from 0.25-0. 35 cm, submitted in toto in a cassette labeled A. CEDS This case was review ed intradepartmentally; results were communicated to Dr. Howard via [place] text on 01/05/2024. Special stains order ed and performed: Immunostains for MLH1, MSH2, MSH6, PMS2 and CDX2 on A1. Copies To: Jesusita Jo MD [facility] [address] [place] [address] CONTINUED ON NEXT PAGE -- Name: Jing Andrews Age/Sex: 78/F : 1945 Unit#: [id number] Attend Dr: Mandeep Cat MD Re12/29/23 Status : DIS IN Location: [facility] 446-1 Disch: 01/08/24 -- SPEC : [id number] RECD : 01/02/24 STATUS: [facility] NUM: [id number] PRIYANKA: 01/01/24-[address] [facility] [address]: Alex Howrad MD ENTERED: 01/02/24- SP TYPE: Surgical OTHR DR: Jesusita Jo MD, Raphael MD ORDERED: HE Stain/3, Gross Micro L4, IHC, Add. immunos/4, CDX-2 COMMENTS: Block A se nt to [facility] for BRAF Mutation Analysis on 01/13/24. Block A sent to [facility] for MMR Panel IHC's on 01/05/24. Copies To: (Continued) Paco Felix MD [address] [place] [address] Alex Howard MD [address] [place], [place] [id number] -- Signed (si gnature on file) Stefanie Fishman MD 01/05/24 1139 (signature on file) Jean Pierre Street MD 01/13/24 0759 -- END OF REPORT Reason For Referral No Information Encounters Encounter Location Date Provider Diagnosis [facility] [place] [id number] 01/01/2024 Alex Howard Plan Of Treatment Pending Test Test Name Order Date Pathology 01/01/2024 Insurance Providers Payer Name Payer Address Payer Phone Subscriber Number Group Number Insured Name Patient Relationship to Insured Coverage Start Date Coverage End Date [place] OF [place] [address] [place] [address] [id number] JING ANDREWS Self - patient is the insured [employer] ATT[employer] CLAIMS [address] [place] [address] [phone] [id number] JING ANDREWS Self - patient is the insured
--- OUTSIDE RECORDS SUMMARY | 2024-11-30 05:21 | XMS_ITS | Encounter Summary ---
Author Organization [facility], Address [address] [place] [address] Phone Care Team Providers Care Senior Windows Systems Engineer Name Role Phone Villa Jiang MD Primary Care Provider Unav ailable Encounter Details Date Type Department Care Team (Late st Contact Info) Description 04/28/2024 Documentation Only [facility], [address] [place] [address] Felicitas Medellin [address] [place] [phone] Social History Tobacco Use Types Packs/Day Years [...] on filedocumented in this encounter Care Teams Senior Windows Systems Engineer Relationship Specialty Start Date End Date Villa Jiang MD [address] [place] [address] PCP - General Internal Medicine 03/19/23 documented as of this encounter
--- OUTSIDE RECORDS SUMMARY | 2024-11-30 05:21 | XMS_ITS | Encounter Summary ---
Author Organization [facility], Address [address] [place] [address] Phone Care Team Providers Care Glass Blowing Instructor Name Role Phone Villa Jiang MD Primary Care Provider Unav ailable Encounter Details Date Type Department Care Team (Late st Contact Info) Description 10/07/2023 Documentation Only [facility], [address] [place] [address] Felicitas Medellin [address] [place] [phone] Social History Tobacco Use Types Packs/Day Years [...] on filedocumented in this encounter Care Teams Glass Blowing Instructor Relationship Specialty Start Date End Date Villa Jiang MD [address] [place] [address] PCP - General Internal Medicine 03/19/23 documented as of this encounter
--- OUTSIDE RECORDS SUMMARY | 2024-11-30 05:21 | XMS_ITS | Encounter Summary ---
Author Organization [facility], Address [address] [place] [address] Phone Care Team Providers Care Floor Tech Name Role Phone Villa Jiang MD Primary Care Provider Unav ailable Encounter Details Date Type Department Care Team (Late st Contact Info) Description 04/28/2024 Documentation Only [facility], [address] [place] [address] Felicitas Medellin [address] [place] [phone] Social History Tobacco Use Types Packs/Day Years [...] on filedocumented in this encounter Care Teams Floor Tech Relationship Specialty Start Date End Date Villa Jiang MD [address] [place] [address] PCP - General Internal Medicine 03/19/23 documented as of this encounter
--- OUTSIDE RECORDS SUMMARY | 2024-11-30 05:21 | XMS_ITS | Data Portability ---
Author Organization [place] [facility] Address [address] [place] [address] Care Team Providers Care Medical Registrar Name Role Phone TAYLOR FAJARDO Primary Care Provider [phone] Assessment Encounter Date Assessment Date Assessment LastModified by Organization Details LastModified Time 08/30/2022 08/30/2022 Brief Overview: 77 y/o female new to with hx of HTN, hyperlipidemia, CKD, DM diet controlled, GERD, OA, prior head injury s/p fall several months ago. pt reports the past 7-10 days increased swelling in her bilateral legs. she denies any pain or calf pain. no fever, cp, sob. she has been taking her torsemide 20 mg daily x 10 days now instead of prn. states some relief. she reports the skin on her legs is very itchy. no weeping or erythema, warmth. she denies WEISS, dizziness. pt states her pcp just did a bunch of blood work on Friday this week but she is not sure of the results yet. pt reports prior hx of cellulitis last episode about 3 months ago. I do not have access to [facility] to review labs and prior records. Vital Signs: BP 118/62, HR 89, RR 16, T 98.0, O2 94% Exam: pleasant 77 y/o female well appearing, alert, NAD sitting at kitchen table. eyes: no injection, icterus or drainage. nose: nares patent no discharge. mouth: moist mucous membranes, no erythema, uvula is midline. no cervical lymphadenopathy. lungs: CTAB. heart: RRR no murmurs rubs or gallops. abdomen: soft, normal bowel sounds, non tender. peripheral edema 2+ bilaterally. dry skin, some flaking noted bilateral lower lateral legs. no calf tenderness, edema negative homans. no erythema, warmth, discharge. gait: normal. DDx considered, with rationale: CHF: considered due to peripheral edema, on torsemide. lungs are clear on exam, no sob or reported weight gain. DVT: considered but no tachycardia, erythema, warmth and edema is bilateral on exam. no calf tenderness. Cellulitis: considered but no erythema or warmth on exam. Results/ work up: N/A Plan: dermatitis: avoid scratching. no signs of infection on exam. recommend using daily mositurizer. stop hydrocortisone cream. start Triamcinolone 1% cream apply to affected area bid x 7 days. follow up with pcp in 3-5 days or sooner prn. go to the ER with worsening symptoms fever, redness, warmth, drainage. Peripheral edema: pt advised to check daily weights. recommend she elevate her legs when she can. advised to wear her compression stockings daily. pt advised to follow low sodium diet. continue Rx Torsemide as prescribed by pcp. advised to call pcp today for recent lab results/ kidney function. discuss with pcp possible adjusting her torsemide. follow up with pcp in 3-5 days or sooner prn. go to the ER if symptoms worsen cp, sob, wheezing, weight gain, calf pain, redness. Proper Personal Protective Equipment (PPE), including gloves, eye protection and masks were donned and doffed appropriately and all equipment cleaned using approved technique with germicidal disposable wipes prior to and after care of this patient according to [facility]'s infection prevention protocols. [email or web address] Not available 08/30/2022 15:33:04 Plan of Treatment Reminders Order Date Submit Date Provider Last Modified By Organization Details Last Modified Time Details Appointments None recorded. Lab None recorded. Referral None recorded. Procedures None recorded. Surgeries None recorded. Imaging None recorded. Medication Orders triamcinolo ne acetonide 0.1 % topical cream 2022 023 [facility][id number], [address] [place], [address], 15:03:34 Patient TargetsNo targets recorded. Patient InstructionsNo instructions recorded. Reason for Referral None Reported. Procedures Surgical History Date Name Laterality Status Provider Name and Address Organization Details Recorded Time excision of bilateral breasts completed PHIL Mcbride [address], [place], [address], [place] [facility] 08/30/[facility] 14:48:21 Imaging Results None recorded. Procedure Notes None recorded. Medical Equipment None Reported. Allergies No known drug allergies Medications Name Sig Start Date Stop Date Status Note LastModified by Organization Details LastModified Time torsemide 20 mg tablet TAKE 1 TABLET BY MOUTH EVERY DAY NEEDED FOR LEG SWELLING active Not Available Not Available No t Available divalproex 250 mg tablet,magdalene yed release TAKE 1 TABLET BY MOUTH TWICE A DAY FOR 30 DAYS active Not Available Not Available No t Available trazodone 50 mg tablet TAKE 1 TABLET BY MOUTH AT BEDTIME NEEDED FOR INSOMNIA. active Not Available Not Available No t Available fluconazole 150 mg tablet TAKE 1 TABLET BY MOUTH EVERY 48 HOURS 08/30 completed Not Available Not Available Not Available olanzapine 5 mg tablet TAKE 1 TABLET BY MOUTH EVERYDAY AT BEDTIME 08/30 completed Not Available Not Available Not Available atenolol 25 mg tablet TAKE 1 TABLET BY MOUTH EVERY DAY 08/30 completed Not Available Not Available Not Available amlodipine 5 mg tablet TAKE 1 TABLET BY MOUTH 1 TIME EACH DAY. active Not Available Not Available No t Available divalproex 500 mg tablet,magdalene yed release TAKE 1 TABLET BY MOUTH TWICE A DAY active Not Available Not Available No t Available aspirin 81 mg tablet,magdalene yed release TAKE 1 TABLET BY MOUTH EVERY DAY active Not Available Not Available No t Available doxycycline monohydrate 100 mg tablet 08/30 completed Not Available Not Available Not Available triamcinolo ne acetonide 0.1 % topical cream APPLY THIN COAT TO AFFECTED AREA TWICE A DAY active Not Available Not Available No t Available lamotrigine 25 mg tablet TAKE 2 TABLETS BY MOUTH 2 TIMES DAILY X30 DAYS active Not Available Not Available No t Available acetaminoph en ER 650 mg tablet,exte nded release TAKE 2 TABLETS BY MOUTH ONCE DAILY IN THE MORNING NEEDED FOR MODERATE PAIN active Not Available Not Available No t Available pantoprazol e 20 mg tablet,magdalene yed release TAKE 1 TABLET BY MOUTH EVERYDAY AT BEDTIME active Not Available Not Available No t Available nortriptyli ne 25 mg capsule TAKE 1 CAPSULE BY MOUTH AT BEDTIME active Not Available Not Available No t Available risperidone 2 mg tablet TAKE 1 TABLET BY MOUTH EVERYDAY AT BEDTIME 08/30 completed Not Available Not Available Not Available amlodipine 10 mg tablet TAKE 1 TABLET BY MOUTH EVERY DAY 08/30 completed Not Available Not Available Not Available benzonatate 100 mg capsule TAKE 2 CAPSULES BY MOUTH 3 TIMES DAILY NOT COVERED 08/30 completed Not Available Not Available Not Available hydrocortis one 1 % topical cream 1 APPL TOPICALLY 2 TIMES A DAY NEEDED FOR ITCHINESS FOR 30 DAYS 08/30 completed Not Available Not Available Not Available simvastatin 20 mg tablet TAKE 1 TABLET BY MOUTH NIGHTLY AT BEDTIME. active Not Available Not Available No t Available metformin 1,000 mg tablet TAKE 1 TABLET BY MOUTH EVERY DAY 08/30 completed Not Available Not Available Not Available omeprazole 20 mg capsule,del ayed release TAKE 1 CAPSULE BY MOUTH EVERY DAY 08/30 completed Not Available Not Available Not Available folic acid 1 mg tablet TAKE 1 TABLET BY MOUTH EVERY DAY active Not Available Not Available No t Available furosemide 20 mg tablet TAKE 1 TABLET BY MOUTH EVERY DAY NEEDED FOR LEG SWELLING 08/30 completed Not Available Not Available Not Available lithium carbonate 300 mg tablet TAKE 3 TABLET BY MOUTH DAILY AT BEDTIME 08/30 completed Not Available Not Available Not Available metformin ER 500 mg tablet,exte nded release 24 hr TAKE 1 TABLET BY MOUTH EVERY DAY 08/30 completed Not Available Not Available Not Available nortriptyli ne 50 mg capsule TAKE 1 CAPSULE BY MOUTH AT BEDTIME 08/30 completed Not Available Not Available Not Available cholecalcif reina (vitamin D3) 25 mcg (1,000 unit) capsule TAKE 1 CAPSULE BY MOUTH EVERY DAY 08/30 completed Not Available Not Available Not Available hydrocortis one 1 % topical cream with perineal applicator APPLY TOPICALLY 3 TIMES DAILY active Not Available Not Available No t Available Senna Plus 8.6 mg-50 mg tablet TAKE 1 CAPSULE BY MOUTH TWICE A DAY FOR 10 DAYS FOR CONSTIPAT ION active Not Available Not Available No t Available Risperdal Consta 25 mg/2 mL intramuscul ar susp,extend ed release INJECT 2ML INTRAMUSC ULARLY EVERY 14 DAYS active Not Available Not Available No t Available FreeStyle Lite Strips DX: E11.9 USE THREE TIMES PER DAY 08/30 completed Not Available Not Available Not Available levocetiriz ine 5 mg tablet TAKE 1 TABLET BY MOUTH EVERY EVENING 08/30 completed Not Available Not Available Not Available melatonin 5 mg tablet TAKE 1 TABLET BY MOUTH DAILY AT BEDTIME X14 DAYS NEEDED FOR INSOMNIA 08/30 completed Not Available Not Available Not Available Vitals Date Recorded Heart rate Respiratory rate Body temperature Oxygen saturation Oxygen saturation in Arterial blood by Pulse oximetry Systolic blood pressure Diastolic blood pressure Provider Name and Address Organization Details Last Updated DateTime 3 89 /min 16 /min 98 [degF] 94 % 94 % 118 mm[Hg] 62 mm[Hg] Not Available [facility] 14:47:18 Social History Question Answer Notes LastModified by Organizat ion Details LastModified Time Tobacco Smoking Status Former Smoker PHIL Mcbride [address], [place], [address], [place] [facility] 08/30/2022 14:47:30 Do You Have An Advance Directive? Yes [email or web address] Information not available 08/30/2022 What Is Your Level Of Alcohol Consumption? None [email or web address] Information not available 08/30/2022 What Is Your Code Status? DNR [email or web address] Information not available 08/30/2022 Excessive Alcohol Or Drug Use No [email or web address] Information not available 08/30/2022 Does This Patient Have A PCP? Yes [email or web address] Information not available 08/30/2022 Has The Patient Seen Their PCP In The Past 6 Months? Yes [email or web address] Information not available 08/30/2022 Is This Patient In Hospice? No [email or web address] Information not available 08/30/2022 Do You Use Any Illicit Or Recreational Drugs? No [email or web address] Information not available 08/30/2022 Sex: Unknown Functional Status None recorded. Mental Status None recorded. Family History Relationship Description Onset Age of this Age Resolved Age Notes LastModified by Organization Details LastModified Time Father Coronary arterioscler osis [email or web address] Not available 08/30 14:45:38 Medical History Condition Response Coronary Artery Disease N Parkinson's Disease N COPD N Depression N Hypothyroidism N A-fib N Diabetes Y CHF N Cancer Y Dementia N Stroke N Asthma N High Cholesterol Y Rheumatoid Arthritis N Pulmonary Embolism N Hypertension Y Osteoporosis N Kidney Disease Y Gynecological HistoryNo gynecological history recorded. Obstetrics History GPAL:G 0 P 0 0 0 0 Past Encounters Encounter ID Performer Location Encounter Start Date Encounter Closed Date Diagnosis/Indication Diagnosis SNOMED-CT Code Diagnosis ICD10 Code Diagnosis Note [id number] [facility] [address] [place] [address] 08/30/2022 14:38:44 09/01/2022 19:29:15 Peripheral edema 342463915 R60.9 Atopic dermatitis 997865 01 L20.9 Health Concerns Section Related Observation LastModified by Organization Detai ls LastModified Time None Recorded Concern Status LastModified by Organization Details LastModified Time None Recorded Advance Directives Directive Y: Payers Encounter Date Sequence Insurance Name Policy Number Policy Ramirez Covered Member ID Ramirez Member ID Guarantor Name 08/30/2022 1 [place] [employer] Jing Bautista [id number] Jing Bautista 08/30/2022 2 [facility] [employer]IELD [id number] Jing Bautista [id number] Jing Bautista Notes Date Note Type Note Provider Name and Address Organization Details Recorded Time 08/30/2022 text/html 77 y/o female new to with hx of HTN, hyperlipidemia, CKD, DM diet controlled, GERD, OA, prior head injury s/p fall several months ago. pt reports the past 7-10 days increased swelling in her bilateral legs. she denies any pain or calf pain. no fever, cp, sob. she has been taking her torsemide 20 mg daily x 10 days now instead of prn. states some relief. she reports the skin on her legs is very itchy. no weeping or erythema, warmth. she denies WEISS, dizziness. pt states her pcp just did a bunch of blood work on Friday this week but she is not sure of the results yet. PHIL Mcbride [address], [place], [address], [place] [facility] 08/30/2022 15:33:18 OBGyn Episode No OBEpisode recorded.
--- OUTSIDE RECORDS SUMMARY | 2024-11-30 05:21 | XMS_ITS ---
Author Organization [facility] Address [address] [place] [address] Care Team Providers Care Loom Operator Apprentice Name Role Phone Sandro GUNDERSON, Jesusita Primary Care Provider Alex Soriano [facility] [phone] REASON FOR VISIT gi bleed Encounters Encounter Location Date Provider Diagnosis [facility] Inpatient [address] [place], [place] [id number] 01/01/2024 Alex Howard Plan Of Treatment No Information Progress Notes * JOHNNIE ANDREWSDOB:1945 (79 yo F)Acc No.[id number]:01/01/2024 EGD and COL/MAC Patient:?JOHNNIE ANDREWS Provider:?Alex Howard MD :1945???Age:78 Y???Sex:Female D ate:01/01/2024 Address:[address] [place], [place] [id number] Pcp:Jesusita Jo MD Subjective: * Chief Complaints: * ???1. Gi bleed. * Medical History:? Objective: * Vitals:? Assessment: Plan: * Treatment: * * The named appointment provid er may or may not be the originator of this progress note, and it is not deemed complete until electronically signed by the appointment provider. Sign off status: Pending * Provider:?Alex Howard MD Date:? 024 Generated for Cesar harrison/Chanda/eTransmitting on:?11/30/2024 05:20 AM EDT
--- OUTSIDE RECORDS SUMMARY | 2024-11-30 05:21 | XMS_ITS | Encounter Summary ---
Author Organization [facility], Address [address] [place] [address] Phone Care Team Providers Care General Practice Name Role Phone Villa Jiang MD Primary Care Provider Unav ailable Encounter Details Date Type Department Care Team (Late st Contact Info) Description 04/28/2024 Documentation Only [facility], [address] [place] [address] Felicitas Medellin [address] [place] [phone] Social History Tobacco Use Types Packs/Day Years [...] on filedocumented in this encounter Care Teams General Practice Relationship Specialty Start Date End Date Villa Jiang MD [address] [place] [address] PCP - General Internal Medicine 03/19/23 documented as of this encounter
--- OUTSIDE RECORDS SUMMARY | 2024-11-30 05:21 | XMS_ITS | Encounter Summary ---
Author Organization [facility], Address [address] [place] [address] Phone Care Team Providers Care Production Sanitizer Name Role Phone Villa Jiang MD Primary Care Provider Unav ailable Encounter Details Date Type Department Care Team (Late st Contact Info) Description 04/28/2024 Documentation Only [facility], [address] [place] [address] Felicitas Medellin [address] [place] [phone] Social History Tobacco Use Types Packs/Day Years [...] on filedocumented in this encounter Care Teams Production Sanitizer Relationship Specialty Start Date End Date Villa Jiang MD [address] [place] [address] PCP - General Internal Medicine 03/19/23 documented as of this encounter
--- OUTSIDE RECORDS SUMMARY | 2024-11-30 05:21 | XMS_ITS | Clinical Summary ---
Author Organization [facility], Address [address] [place] [address] [place] [address] Phone Care Team Providers Care Hydroelectric Plant Operator Name Role Phone Villa Jiang MD Primary Care Provider Unav ailable Allergies No known active allergies Medications aspirin 325 MG tablet Take 325 mg by mouth 1 (one) time each day Active fluconazole (DIFLUCAN) 150 MG tablet Take 150 mg by mouth 1 (one) time Active lamoTRIgine (LaMICtal) 25 MG tablet Take 25 mg by mouth 1 (one) time each day Active metFORMIN (GLUCOPHAGE) 500 MG tablet Take 500 mg by mouth in the morning and 500 mg in the evening. Take with meals. Active nortriptyline (PAMELOR) 25 MG capsule Take 25 mg by mouth every night Active omeprazole (PriLOSEC) [address] capsule Take 20 mg by mouth 1 (one) time each day Do not crush or chew. Active simvastatin (ZOCOR) 20 MG tablet Take 20 mg by mouth every night Active Cholecalciferol (Vitamin D3) 20 MCG (800 UNIT) tablet Take by mouth Active lisinopril 5 MG tabletIndicatio ns:Hypertension Take 1 tablet (5 mg total) by mouth 1 (one) time each day 30 tablet 11 10/14/2023 Active furosemide (Lasix) 20 MG tablet Take 1 tablet (20 mg total) by mouth 1 (one) time each day 90 tablet 3 12/03/2023 5 Active Active Problems Problem Noted Date Diagnosed Date Stage 3b chronic kidney disease 10/07/2023 Type 2 diabetes mellitus 10/06/2023 Pure hypercholesterolemia 10/06/2023 Hyperlipidemia 10/06/2023 Hypertension 01/09/2022 Immunizations Name Administration Dates Next Due Influenza (IM) Preservative Free 06/09/2015 Influenza Whole 06/14/2021,05/26/2019,05/25/2013 Influenza, Unspecified 06/07/2022,2017,07/22/2017,09/20/2016 ,07/06/2014 Pfizer SARS-COV-2 07/02/2021,11/09/2020,10/17/19 21 Pneumococcal Conjugate 13-Valent 01/11/2016 Pneumococcal Polysaccharide 11/19/2012 SARS-CoV-2, Unspecified 02/24/2022 Shingrix 06/03/2019,03/15/2019 Tdap 11/19/2012 Zoster 12/25/2012 Family History Medical History Relation Comments Alcohol abuse Brother 1 Other Brother 1 polio Cancer Brother 2 Hypertension Mother Stroke Sister 1 Cancer Sister 2 Relation Status Comments Brother 1 Brother 2 Father Mother Sister 1 Sister 2 Alive Social History Tobacco Use Types Packs/Day Years Used Date Smoking Tobacco: Former Alcohol Use Standard Drinks/Week Comments Not Currently 0 (1 standard drink = 0.6 oz pur e alcohol) Comments Unknown Sex and Gender Information Value Date Recorded Sex Assigned at Not on file Legal Sex Female 9:58 AM EDT Gender Identity Not on file Sexual Orientation Not on file Last Filed Vital Signs Vital Sign Reading Time Taken Comments Blood Pressure 112/68 10/14/2023 3:47 PM EST Pulse 89 04/03/2023 1:57 PM EDT Temperature - - Respiratory Rate - - Oxygen Saturation - - Inhaled Oxygen Concentration - - Weight - - Height - - Body Mass Index - - Plan of Treatment Health Maintenance Due Date Last Done Comments Diabetes: Hemoglobin A1C 01/09/2022 Diabetes: Ophthalmology Exam 01/09/2022 Diabetes: Pedal Pulse Checked 01/09/2022 Diabetes: Sensory Foot Exam 01/09/2022 Diabetes: Visual Foot Exam 01/09/2022 Influenza Vaccine (Season Ended) 2025 06/07/2022, 06/14/2021, 05/26/2019, Additional history exists Pneumococcal Vaccine: 65+ Years Completed 01/11/2016, 11/19/2012 Hepatitis B Vaccine Aged Out No longe r eligible based on patient's age to complete this topic Insurance MEDICARE [facility] Care Teams Hydroelectric Plant Operator Relationship Specialty Start Date End Date Villa Jiang MD [address] [place] [address] PCP - General Internal Medicine 03/19/23
--- OUTSIDE RECORDS SUMMARY | 2024-11-30 05:21 | XMS_ITS | Encounter Summary ---
Author Organization [facility], Address [address] [place] [address] Phone Care Team Providers Care Fiber Optic Splicer Name Role Phone Villa Jiang MD Primary Care Provider Unav ailable Encounter Details Date Type Department Care Team (Late st Contact Info) Description 04/28/2024 Documentation Only [facility], [address] [place] [address] Felicitas Medellin [address] [place] [phone] Social History Tobacco Use Types Packs/Day Years [...] on filedocumented in this encounter Care Teams Fiber Optic Splicer Relationship Specialty Start Date End Date Villa Jiang MD [address] [place] [address] PCP - General Internal Medicine 03/19/23 documented as of this encounter
--- OUTSIDE RECORDS SUMMARY | 2024-11-30 05:21 | XMS_ITS | Encounter Summary ---
Author Organization [facility], Address [address] [place] [address] Phone Care Team Providers Care Mainframe Analyst Name Role Phone Villa Jiang MD Primary Care Provider Unav ailable Encounter Details Date Type Department Care Team (Late st Contact Info) Description 10/07/2023 Documentation Only [facility], [address] [place] [address] Felicitas Medellin [address] [place] [phone] Social History Tobacco Use Types Packs/Day Years [...] on filedocumented in this encounter Care Teams Mainframe Analyst Relationship Specialty Start Date End Date Villa Jiang MD [address] [place] [address] PCP - General Internal Medicine 03/19/23 documented as of this encounter
--- OUTSIDE RECORDS SUMMARY | 2024-11-30 05:21 | XMS_ITS | Encounter Summary ---
Author Organization [facility], Address [address] [place] [address] Phone Care Team Providers Care 2Nd Pressman Name Role Phone Villa Jiang MD Primary Care Provider Unav ailable Encounter Details Date Type Department Care Team (Late st Contact Info) Description 12/10/2023 Documentation Only [facility], [address] [place] [address] Felicitas Medellin [address] [place] [phone] Social History Tobacco Use Types Packs/Day Years [...] on filedocumented in this encounter Care Teams 2Nd Pressman Relationship Specialty Start Date End Date Villa Jiang MD [address] [place] [address] PCP - General Internal Medicine 03/19/23 documented as of this encounter
--- OUTSIDE RECORDS SUMMARY | 2024-11-30 05:21 | XMS_ITS | Encounter Summary ---
Author Organization [facility], Address [address] [place] [address] Phone Care Team Providers Care Teaching Pastor Name Role Phone Villa Jiang MD Primary Care Provider Unav ailable Encounter Details Date Type Department Care Team (Late st Contact Info) Description 04/28/2024 Documentation Only [facility], [address] [place] [address] Felicitas Medellin [address] [place] [phone] Social History Tobacco Use Types Packs/Day Years [...] on filedocumented in this encounter Care Teams Teaching Pastor Relationship Specialty Start Date End Date Villa Jiang MD [address] [place] [address] PCP - General Internal Medicine 03/19/23 documented as of this encounter
--- OUTSIDE RECORDS SUMMARY | 2024-11-30 05:21 | XMS_ITS | Encounter Summary ---
Author Organization [facility], Address [address] [place] [address] Phone Care Team Providers Care Rn Appeals Name Role Phone Villa Jiang MD Primary Care Provider Unav ailable Encounter Details Date Type Department Care Team (Late st Contact Info) Description 05/03/2022 Documentation Only [facility], [address] [place] [address] Michael Regan [place] [address] [place] [phone] Social History Tobacco Use Types Packs/Day Years [...] on filedocumented in this encounter Care Teams Rn Appeals Relationship Specialty Start Date End Date Villa Jiang MD [address] [place] [address] PCP - General Internal Medicine 03/19/23 documented as of this encounter
--- OUTSIDE RECORDS SUMMARY | 2024-11-30 05:22 | XMS_ITS | Data Portability ---
Author Organization [facility], Main Office Address [address] [facility] [facility] [address] [place] [address] Care Team Providers Care Multicultural Manager Name Role Phone ERIC BUCHANAN 1ST FLOOR OTHER [phone] AMEENA SHRESTHA Primary Care Provider Assessment Encounter Date Assessment Date Assessment LastModified by Organization Details LastModified Time 12/15/2023 12/15/2023 Labs 12/14: Na 137-K 4.3-Bun 36-Cr 0.9-wbc 15.1-hgb 10.5-hct 32.4-plt 377 Not available 12/17/2023 19:54:40 12/18/2023 12/18/2023 Labs 12/14: Na 137-K 4.3-Bun 36-Cr 0.9-wbc 15.1-hgb 10.5-hct 32.4-plt 377 Not available 12/19/2023 20:21:09 12/22/2023 12/22/2023 Labs 12/14: Na 137-K 4.3-Bun 36-Cr 0.9-wbc 15.1-hgb 10.5-hct 32.4-plt 377 Labs 12/21: Na 139-K 4.2-Bun 45-Cr 1.0-wbc 9.5-hgb 8.6-hct 26.5-plt 286 Not available 12/22/2023 18:25:21 12/26/2023 12/26/2023 Labs 12/14: Na 137-K 4.3-Bun 36-Cr 0.9-wbc 15.1-hgb 10.5-hct 32.4-plt 377 Labs 12/21: Na 139-K 4.2-Bun 45-Cr 1.0-wbc 9.5-hgb 8.6-hct 26.5-plt 286 Not available 12/26/2023 15:44:16 Plan of Treatment Reminders Order Date Submit Date Provider Last Modified By Organization Details Last Modified Time Details Appointments None record ed. Lab None record ed. Referral None record ed. Procedures None record ed. Surgeries None record ed. Imaging None record ed. Medication Orders None record ed. Patient TargetsNo targets recorded. Patient InstructionsNo instructions recorded. Reason for Referral None Reported. Problems Name Problem SNOMED Code Status Onset Date Resolution Date Notes Provider Name and Address Organization Details Recorded Time Essential hypertension 68107925 Active 2023 SHAWNA PRAKASH [address], [address], [place], [address], [facility] [employer] 4 18:08:53 Closed fracture of hip 228671609 Active 2023 SHAWNA PRAKASH [address], [address], [place], [address], [facility] [employer] 4 18:09:20 Hyperlipidemia 57265498 Active 2023 SHAWNA PRAKASH [address], [address], [place], [address], [employer] 4 18:09:33 Bipolar disorder 23894943 Active 2023 SHAWNA PRAKASH [address], [address], [place], [address], [facility] [employer] 4 18:09:40 Cognitive disorder 362148379 Active 2023 SHAWNA PRAKASH [address], [address], [place], [address], [employer] 4 18:09:47 Osteoarthritis 719318546 Active 2023 SHAWNA PRAKASH [address], [address], [place], [address], [facility] [employer] 4 18:10:03 Acute non-ST segment elevation myocardial infarction 161403931 Active 2023 SHAWNA PRAKASH [address], [address], [place], [address], [facility] [facility] 4 18:11:00 Gastroesophage al reflux disease 771526836 Active 2023 SHAWNA PRAKASH [address], [address], [place], [address], [facility] [facility] 4 18:11:31 Constipation 94217583 Active 2023 SHAWNA PRAKASH [address], [address], [place], [address], [facility] [employer] [facility] 4 18:53:26 Pulmonary embolism 09604999 Active 2023 SHAWNA PRAKASH [address], [address], [place], [address], [facility] [employer] [facility] 4 18:53:38 Deep venous thrombosis of lower extremity 023687494 Active 2023 SHAWNA PRAKASH [address], [address], [place], [address], [facility] [employer] [facility] 4 18:53:58 Anticoagulant therapy Active 2023 SHAWNA PRAKASH [address], [address], [place], [address], [facility] [employer] 4 18:55:47 Closed fracture of hip 446888836 Active 2023 Kinza Aguilar MD [address], [place], [address], [facility] [employer] 4 18:40:28 Problem Notes None recorded. Medical Equipment None Reported. Allergies No known drug allergies Medications Name Sig Start Date Stop Date Status Note LastModified by Organization Details LastModified Time tramadol 50 mg tablet Take 1 tablet every 6 hours by oral route as needed, for pain. 024 active Not Available Not Available Not Avai lable Vitals Date Recorded Body height Body mass index (BMI) Body weight Heart rate Respiratory rate Body temperature Oxygen saturation Oxygen saturation in Arterial blood by Pulse oximetry Systolic blood pressure Diastolic blood pressure Provider Name and Address Organization Details Last Updated DateTime 4 160.02 cm 30.6 kg/m2 22482.7 6 g 90 /min 18 /min 97.9 [degF] 92 % 92 % 124 mm[Hg] 72 mm[Hg] Kinza Aguilar MD [address] [facility] [address], [address], [place], [address], [facility] 4 18:48:48 Date Recorded Body height Body temperature Respiratory rate Heart rate Oxygen saturation Oxygen saturation in Arterial blood by Pulse oximetry Systolic blood pressure Diastolic blood pressure Provider Name and Address Organization Details Last Updated DateTime 160.02 cm 97.9 [degF] 18 /min 72 /min 96 % 96 % 101 mm[Hg] 59 mm[Hg] SHAWNA PRAKASH [address], [place], [address], [facility] 4 20:20:42 Date Recorded Body height Heart rate Respiratory rate Body temperature Oxygen saturation Oxygen saturation in Arterial blood by Pulse oximetry Systolic blood pressure Diastolic blood pressure Provider Name and Address Organization Details Last Updated DateTime 160.02 cm 82 /min 18 /min 97.9 [degF] 95 % 95 % 108 mm[Hg] 61 mm[Hg] SHAWNA PRAKASH [address], [place], [address], [facility] 4 18:13:08 Date Recorded Body height Provider Name an d Address Organization Details Last Updated DateTime 12/26/2023 160.02 cm SHAWNA PRAKASH [address] [facility] [address], [address], [place], [address], [facility] 12/26/2023 15:43:49 Social History Question Answer Notes LastModified by Organizat ion Details LastModified Time Tobacco Smoking Status Former Smoker quit 2012 Kinza Aguilar MD [address], [place], [address], [facility] 12/11/2023 18:53:26 Do You Have An Advance Directive? Yes Information not available 12/11/2023 What Is Your Code Status? DNR/DNI Information not available 12/11/2023 Where Do You Live? Condo Information not available 12/11/2023 Legal Guardian? No Informati on not available 12/11/2023 Do You Have A Medical Power Of Reference Investigator? Yes Information not available 12/11/2023 What Was The Date Of Your Most Recent Tobacco Screening? 12/11/2023 Information not available 12/11/2023 Do You Have An Out Of Hospital DNR? Yes Information not available 12/11/2023 What Is Your Relationship Status? Single Information not available 12/11/2023 How Much Tobacco Do You Smoke? No Information not available 12/11/2023 Has Tobacco Cessation Counseling Been Provided? No N/a As Pt No Longer Smokes Information not available 12/11/2023 Do You Or Have You Ever Used Any Other Forms Of Tobacco Or Nicotine? No Information not available 12/11/2023 Sex: Unknown Functional Status None recorded. Mental Status None recorded. Family History Nothing Reported Notes:n/c Medical History No medical history recorded. Gynecological HistoryNo gynecological history recorded. Obstetrics History GPAL:G 0 P 0 0 0 0 Immunizations Vaccine Type Date Status Note Provider Nam e and Address Organization Details Recorded Time Pneumococcal conjugate PCV 13 6 completed Lori [facility] 12/10/2023 16:53:02 Pneumococcal conjugate PCV20, polysaccharide [id number] conjugate, adjuvant, PF 3 completed Lori [facility] 12/10/2023 16:53:17 influenza, unspecified formulation 2 completed Lori [facility] 12/10/2023 16:53:32 influenza, unspecified formulation 3 completed Lori [facility] 12/10/2023 16:53:42 SARS-COV-2 (COVID-19) vaccine, UNSPECIFIED 1 completed Lori [facility] 12/10/2023 16:53:56 SARS-COV-2 (COVID-19) vaccine, UNSPECIFIED 1 completed Lori [facility] 12/10/2023 16:54:05 SARS-COV-2 (COVID-19) vaccine, UNSPECIFIED 1 completed Lori Stock [facility] 12/10/2023 16:54:12 SARS-COV-2 (COVID-19) vaccine, UNSPECIFIED 2 completed Lorimele Stock [facility] 12/10/2023 16:54:19 SARS-COV-2 (COVID-19) vaccine, UNSPECIFIED 2 completed Lori [facility] 12/10/2023 16:54:27 SARS-COV-2 (COVID-19) vaccine, UNSPECIFIED 3 completed Lori [facility] 12/10/2023 16:54:35 zoster live 3 completed Lori [facility] 12/10/2023 16:54:55 zoster recombinant 9 completed [facility] 12/10/2023 16:55:13 zoster recombinant 9 [facility] 12/10/2023 16:55:24 Past Encounters Encounter ID Performer Location Encounter Start Date Encounter Closed Date Diagnosis/Indication Diagnosis SNOMED-CT Code Diagnosis ICD10 Code Diagnosis Note [id number] SHAWNA PRAKASH [address] [place] [address] [place] [address] 12/10/2023 09:43:49 12/16/2023 11:19:07 Closed fracture of hip 427723429 S72.092A subcapital left femur neck fractures/ p left hemiarthro plastycont inue tramadol 25 mg dailytylen ol 650mg prnfollow up with orthoPT/OT eval and treat Anticoagulant therapy 18 0245456 Z79.01 recent hx of bilat Lower extremity DVT and PEcontinue eliquis 10 mg BID until 12/13 then 10 mg BIDmonitor for abnormal bruising or bleeding Bipolar disorder 2457208 4 F31.9 continue risperdal 25 mg ER IM Q14 dayscontin ue divalproex 500 mg ER dailynortr iptyline 10 mg dailymonit or for mood and behavior changes.ps ych prn Essential hypertension 57882015 I10 continue furosemide 20 mg daily and lisinopril 5 mgmonitor BP Hyperlipidemia 20402445 E78.5 continue simvastati n 20 mg daily Constipation 95773579 K5 9.00 continue miralax 17 gm daily and colace 100 mg dailymonit or bowel sounds Gastroesop hageal reflux disease 934154427 K21.9 protonix 20 mg dailymonit or for GI upset Osteoarthritis 644384369 M19.90 continue tramadol and tylenol prn. [id number] Kinza Aguilar MD [address] [place] [address] 12/11/2023 18:35:49 12/26/2023 15:12:27 Closed fracture of hip 824992236 S72.092D Recovering slowly.Nee ds PT/OT for strengthen ing, balance, gait training, safety and function.C ontinue fall precaution s.Monitor for safety.Con tinue tramadol 25 mg q 6 hrs prn and APAP 650 mg q 6 hrs prn.Monito r pain control and progress.F /U with ortho as planned. Bipolar disorder 2984416 4 F31.89 Mood good tonight.Co ntinue risperdal 25 mg ER IM q 14 days, divalproex 500 mg ER qd, and nortriptyl ine 10 mg qdMonitor mood.Consu lt psych prn Essential hypertension 35273257 I10 BP in good control since here on furosemide 20 mg qd and lisinopril 5 mg qdMonitor BP and labs Hyperlipidemia 18713427 E78.49 Continue simvastati n 20 mg qdMonitor labs as outpt. Constipation 88097788 K5 9.09 Good bowel sounds, but still hasn't had BM (x 5 days).Incr ease colace to 100 mg BID and miralax 17 gms BID.Monito r bowel function Gastroesop hageal reflux disease 047407027 K21.9 No current sxs.Contin ue pantoprazo le 20 mg qdMonitor for GI sxs Osteoarthritis 856462908 M15.0 Continue pain meds and PT/OT as above.Aleena tor Pulmonary embolism 31640 003 I26.99 S/P BLE DVT and PE with thrombecto my.Continu e eliquis 10 mg BID until 12/13 then 5 mg BIDMonitor resp sxs and signs of bleeding. Deep venou s thrombosis of lower extremity 405604910 I82.409 As above. [id number] SHAWNA PRAKASH [address] [address] 12/15/2023 11:08:58 12/19/2023 14:49:55 Closed fracture of hip 296995351 S72.092A subcapital left femur neck fractures/ p left hemiarthro plastycont inue tramadol 25 mg dailytylen ol 650mg prnfollow up with orthoPT/OT eval and treat Anticoagulant therapy 18 2090516 Z79.01 recent hx of bilat Lower extremity DVT and PEcontinue eliquis 10 mg BID until 12/13 then 10 mg BIDmonitor for abnormal bruising or bleeding Bipolar disorder 4008443 4 F31.9 continue risperdal 25 mg ER IM Q14 dayscontin ue divalproex 500 mg ER dailynortr iptyline 10 mg dailymonit or for mood and behavior changes.ps ych prn Essential hypertension 38649215 I10 continue furosemide 20 mg daily and lisinopril 5 mgmonitor BP [id number] SHAWNA PRAKASH [address] [address] 12/18/2023 10:43:55 12/23/2023 14:38:58 Closed fracture of hip 787644110 S72.092A subcapital left femur neck fractures/ p left hemiarthro plastycont inue tramadol 25 mg dailytylen ol 650mg prnfollow up with orthoPT/OT Anticoagulant therapy 18 0618832 Z79.01 recent hx of bilat Lower extremity DVT and PEcontinue eliquis 5 mg BIDmonitor for abnormal bruising or bleeding Bipolar disorder 9179132 4 F31.9 continue risperdal 25 mg ER IM Q14 dayscontin ue divalproex 500 mg ER dailynortr iptyline 10 mg dailymonit or for mood and behavior changes.ps ych prn Essential hypertension 99643446 I10 continue furosemide 20 mg daily and lisinopril 5 mgmonitor BP [id number] SHAWNA PRAKASH [address] [address] 12/22/2023 12:46:20 12/23/2023 15:34:36 Closed fracture of hip 841903017 S72.092A subcapital left femur neck fractures/ p left hemiarthro plastycont inue tramadol 25 mg dailytylen ol 650mg prnfollow up with orthoPT/OT Anticoagulant therapy 18 0408292 Z79.01 recent hx of bilat Lower extremity DVT and PEcontinue eliquis 5 mg BIDmonitor for abnormal bruising or bleeding Bipolar disorder 1943785 4 F31.9 continue risperdal 25 mg ER IM Q14 dayscontin ue divalproex 500 mg ER dailynortr iptyline 10 mg dailymonit or for mood and behavior changes.ps ych prn Essential hypertension 85882699 I10 continue furosemide 20 mg daily and lisinopril 5 mgmonitor BP [id number] SHAWNA PRAKASH [place] [address] [place] [address] 12/26/2023 09:50:52 12/30/2023 10:19:14 Closed fracture of hip 445650541 S72.092A subcapital left femur neck fractures/ p left hemiarthro plastycont inue tramadol 25 mg dailytylen ol 650mg prnfollow up with orthoPT/OT Constipation 89136261 K5 9.00 see hpiabdomin al KUB orderedinc rease water intake.con tinue miralax 17 gm daily and colace 100 mg dailymonit or bowel sounds Low blood pressure 15891 003 I95.9 sbp reported in the 80's with dizzinessm idodrine 5 mg prn TIDupdated provider with new changespla ce parameter on lisonpril Dysuria 83589283 R30.0 straight cath for UA with c&s Health Concerns Section Related Observation LastModified by Organization Detai ls LastModified Time None Recorded Concern Status LastModified by Organization Details LastModified Time None Recorded Advance Directives Directive Y: Payers Encounter Date Sequence Insurance Name Policy Number Policy Ramirez Covered Member ID Ramirez Member ID Guarantor Name 12/11/2023 2 [place] [id number] Jing Bautista [id number] Jing Bautista 12/11/2023 1 [place] [employer] [place] Jing A Cadden [id number] Jing Cadden 12/15/2023 2 [place] [id number] Jing Cadden [id number] Jing Cadden 12/15/2023 1 [place] [employer] [place] Jing A Cadden [id number] Jing Cadden 12/18/2023 2 [place] [id number] Jing Cadden [id number] Jing Cadden 12/18/2023 1 [place] [employer] Jing A Cadden [id number] Jing Cadden 12/22/2023 2 [place] [id number] Jing Cadden [id number] Jing Cadden 12/22/2023 1 [place] [employer] [place] Jing A Cadden [id number] Jing Cadden 12/26/2023 2 [place] [id number] Jing Cadden [id number] Jing Cadden 12/26/2023 1 [place] [employer] Jing A Cadden [id number] Jing Cadden Notes Date Note Type Note Provider Name and Address Organization Details Recorded Time 12/11/2023 text/html This is a 78 yo woman who is here for rehab after an acute hospitalization for a left femur fx after a fall from lightheadedness, course complicated by a PE with thrombectomy and IVC filter placement, and NSTEMI.She presented to the [facility] ED on 11/28 after a fall when walking into her kitchen, she said she felt lightheaded and then fell to her left side. She had immediate left thigh pain.In ED she was noted to be tachy to 124 and she had been hypoxic in ambulance so placed on 3L O2 and O2 sat was 95% on this.Xray showed Acute subcapital left femoral neck fracture. Chest CTA showed Right sided segmental and subsegmental pulmonary emboli involving the upper, mid, and lower lobes. Left-sided pulmonary emboli along the distal left main pulmonary artery with segmental and subsegmental extension in the left upper and lower lobes. D/C summary states: In the ED labs were significant for leukocytosis of 12.0, BUN 33, creatinine 1.42, and initial troponin 54.6 with repeat 915.4. No significant electrolyte abnormalities. Stable H&H. CXR showed clear lungs. X-ray of hip and pelvis showed acute subcapital left femoral neck fracture, as well as toix-dm-lwoqgrgh osteoarthritis of the bilateral hips and large volume of desiccated stool in the rectum and colon. CT of head found no acute intracranial hemorrhage but did show scattered chronic small-vessel ischemic changes. CT of cervical spine found no acute fracture or posttraumatic subluxation, but advanced multilevel degenerative spondylolysis. EKG demonstrated sinus tachycardia with occasional PVC with nonspecific ST and T-wave abnormalities. Repeat EKG showed sinus tachycardia of 158 with septal infarct now present. Pt was treated with ondansetron, IVF, morphine, and started on a heparin drip. Pt will be admitted to the hospital for treatment and further evaluation of NSTEMI and left hip fracture.Hospital course:Patient was admitted because felt lightheaded and fall-found to have left hip fracture and also found to acute hypoxemic respiratory failure possibly in the setting of PE/right heart strain/elevated troponins: Patient was started on IV heparin and seen by vascular, Cardiology: Patient was subsequently had preliminary embolectomy and IVC filter on12/02/23.echo:Normal left ventricular size and systolic function. There is mildly increased left ventricular wall thickness. The visually estimated ejection fraction is between 60-65%. There is no evidence of regional wall motion abnormalities. Diastolic function is indeterminate on the basis of available data.cardiology -possible syncope ,nstemi sec to pulmonary embolism.In addition subsequently patient got left hip hemiarthroplasty also done.Patient seen by vascular and hematology-started on Eliquis 10 mg po bid ( until 12/14/23 ) , then switch to eliquis 5 mg po bid ( 12/15/23).hematology- Eliquis/anticoagulatio n long-term. IVC filter will have to be removed in the next 3-6 months.postop anemia : received 1 prbc : h/h : 06/23.2 , monitor cbc outpatient. She was transferred here on 12/08. Since here she has been working with rehab and has been able to do a little more each day, but still feels very weak and hip hurts. She says pain meds help. Her PMH includes HTN, HLD, cognitive disorder, CAD s/p NSTEMI 11/2023, PE/DVT 11/[address] filter in place, TIAs, DVT, hx of breast cancer s/p bilateral mastectomy 2008, GERD, and bipolar disorder. Kinza Aguilar MD [address], [address], [place], [address], [facility] 12/24/2023 18:50:46 12/15/2023 text/html This is a 78 yr old female with a past medical history of HTN, HLD, cognitive disorder, TIAs, DVT, breast cancer, GERD, bipolar. Patient admitted to facility for rehab after hospitalization for management of left thigh pain s/p left hemiarthroplasty 12/04, PE with embolectomy, bilateral LE DVT and IVC filter placed on 12/01 and NSTEMI. Patient is seen today acute rounding visit. SHAWNA PRAKASH [address], [address], [place], [address], [facility] 12/17/2023 19:59:44 12/18/2023 text/html This is a 78 yr old female with a past medical history of HTN, HLD, cognitive disorder, TIAs, DVT, breast cancer, GERD, bipolar. Patient admitted to facility for rehab after hospitalization for management of left thigh pain s/p left hemiarthroplasty 12/04, PE with embolectomy, bilateral LE DVT and IVC filter placed on 12/01 and NSTEMI. Patient is seen today acute rounding visit.On exam she is stable, her pain is controlled, participating in therapy, moderate assist with ADL care there is no acute nursing concerns. SHAWNA PRAKASH [address], [address], [place], [address], [facility] 12/19/2023 20:25:02 12/22/2023 text/html This is a 78 yr old female with a past medical history of HTN, HLD, cognitive disorder, TIAs, DVT, breast cancer, GERD, bipolar. Patient admitted to facility for rehab after hospitalization for management of left thigh pain s/p left hemiarthroplasty 12/04, PE with embolectomy, bilateral LE DVT and IVC filter placed on 12/01 and NSTEMI. Patient is seen today acute rounding visit. SHAWNA PRAKASH [address], [address], [place], [address], [facility] 12/22/2023 18:26:10 12/26/2023 text/html This is a 78 yr old female with a past medical history of HTN, HLD, cognitive disorder, TIAs, DVT, breast cancer, GERD, bipolar. Patient admitted to facility for rehab after hospitalization for management of left thigh pain s/p left hemiarthroplasty 12/04, PE with embolectomy, bilateral LE DVT and IVC filter placed on 12/01 and NSTEMI. Patient is seen today acute rounding visit. On exam she is lying in bed, she tells me that she feels ok but did have some dizziness earlier. Nursing reports SBP was in the 80's. She was ordered midodrine 10 mg. She tells me that she has not had a bowel movement in 1 month, she has been noted with small bowel movement, Her abdomen is soft and non distended with hyper BS. She is incontinent, her urine has a strong sulfur smell, she does endorse discomfort and burning with voiding. plan of care discussed, will r/o UTI, ord KUB and monitor VS. SHAWNA PRAKASH [address], [address], [place], [address], [employer] 12/26/2023 15:55:34 OBGyn Episode No OBEpisode recorded.
[2024-11-30 05:49] LABS: Basophils Percent Auto 0.3 % (0-2); Eosinophils Absolute Auto 0.2 X10*3/uL (0.0-0.4); Eosinophils Percent Auto 1.7 % (0-4); Hematocrit 28.3 % (37.0-47.0); Hemoglobin 8.7 g/dl (12.0-16.0); Imm Gran Abs Auto 0.12 X10*3/uL (0.00-0.03); Imm Gran Pct Auto 1.1 % (0.0-0.4); Lymphocytes Absolute Auto 1.7 X10*3/uL (1.2-4.9); Lymphocytes Percent Auto 16.5 % (20-40); Mean Corpuscular HGB Conc 30.7 g/dl (31.0-35.0); Mean Corpuscular Hemoglobin 27.9 pg (27.0-33.0); Mean Corpuscular Volume 90.7 fL (80.0-98.0); Mean Platelet Volume 9.1 fL (9.4-12.3); Monocytes Absolute Auto 0.6 X10*3/uL (0.1-1.2); Monocytes Percent Auto 5.8 % (2-11); Neutrophils Absolute Auto 7.8 x10*3/uL (2.0-8.3); Neutrophils Percent Auto 74.6 % (45-73); Platelet Count 311 X10*3/uL (160-400); Red Blood Count 3.12 X10*6/uL (4.20-5.50); Red Cell Distribution Width 15.8 % (11.0-16.0); White Blood Count 10.4 X10*3/uL (4.8-10.8)
[2024-11-30 06:15] LABS: Alanine Aminotransferase 6 U/L (0-31); Albumin Level 2.9 g/dL (3.5-5.0); Alkaline Phosphatase 78 U/L (39-117); Anion Gap 13 (12-20); Aspartate Amino Transferase 11 U/L (5-31); Bilirubin Total 0.1 mg/dL (0.0-1.0); Blood Urea Nitrogen 23 mg/dL (9-16); Calcium 8.7 mg/dL (8.4-10.2); Carbon Dioxide 25 mmol/L (22-29); Chloride 107 mmol/L (96-108); Estimated Glomerular Filt Rate 52; Glucose Random 173 mg/dL (60-115); Potassium 3.9 mmol/L (3.3-5.1); Sodium 141 mmol/L (135-145); Total Protein 6.1 g/dL (6.5-8.0)
== END 2024-11-30 05:19 | disposition home or self-care (01) ==
LOC: HO.MMNH1L 05:18
PROVIDERS: Visit Provider Student in an Organized Health Care Education/Training Program
DX: I10 Essential (primary) hypertension (principal); I49.9 Cardiac arrhythmia, unspecified; E11.9 Type 2 diabetes mellitus without complications
CPT/HCPCS: 36415; 80053; 85025

== ENCOUNTER 2024-12-01 05:50 | Outpatient (REF) | payer MEDICARE, SELFPAY ==
[2024-12-01 05:52] LABS: MANUAL DIFF FLAG NO
--- OUTSIDE RECORDS SUMMARY | 2024-12-01 05:53 | XMS_ITS | Encounter Summary ---
Author Organization [facility], Address [address] [place] [address] Phone Care Team Providers Care Ship'S Captain Name Role Phone Villa Jiang MD Primary Care Provider Unav ailable Encounter Details Date Type Department Care Team (Late st Contact Info) Description 04/28/2024 Documentation Only [facility], [address] [place] [address] Felicitas Medellin [address] [place] [phone] Social History Tobacco Use Types Packs/Day Years [...] on filedocumented in this encounter Care Teams Ship'S Captain Relationship Specialty Start Date End Date Villa Jiang MD [address] [place] [address] PCP - General Internal Medicine 03/19/23 documented as of this encounter
--- OUTSIDE RECORDS SUMMARY | 2024-12-01 05:53 | XMS_ITS | Clinical Summary ---
Author Organization [facility], Address [address] [place] [address] [place] [address] Phone Care Team Providers Care Enterprise Application Administrator Name Role Phone Villa Jiang MD Primary [...] age to complete this topic Insurance MEDICARE [facility] Care Teams Enterprise Application Administrator Relationship Specialty Start Date End Date Villa Jiang MD [address] [place] [address] PCP - General Internal Medicine 03/19/23
--- OUTSIDE RECORDS SUMMARY | 2024-12-01 05:53 | XMS_ITS | Encounter Summary ---
Author Organization [facility], Address [address] [place] [address] Phone Care Team Providers Care Medical Records Field Technician Name Role Phone Villa Jiang MD Primary Care Provider Unav ailable Encounter Details Date Type Department Care Team (Late st Contact Info) Description 12/10/2023 Documentation Only [facility], [address] [place] [address] Felicitas Medellin [address] [place] [phone] Social History Tobacco Use Types Packs/Day Years [...] on filedocumented in this encounter Care Teams Medical Records Field Technician Relationship Specialty Start Date End Date Villa Jiang MD [address] [place] [address] PCP - General Internal Medicine 03/19/23 documented as of this encounter
--- OUTSIDE RECORDS SUMMARY | 2024-12-01 05:53 | XMS_ITS | Data Portability ---
Author Organization [place] [facility] Address [address] [place] [address] Care Team Providers Care Extruding Department Supervisor Name Role Phone TAYLOR FAJARDO Primary Care Provider Assessment Encounter Date Assessment [...] ago. I do not have access to [facility] to review labs and prior records. [...] after care of this patient according to [facility]'s infection prevention protocols. Not available 08/30/2022 15:33:04 Plan of Treatment Reminders Order Date Submit Date Provider Last Modified By Organization Details Last Modified Time Details Appointments None recorded. Lab None recorded. Referral None recorded. Procedures None recorded. Surgeries None recorded. Imaging None recorded. Medication Orders triamcinolo ne acetonide 0.1 % topical cream 2022 023 [facility] #[id number], [id number] [place], [address], 15:03:34 Patient TargetsNo targets recorded. Patient InstructionsNo instructions recorded. Reason for Referral None Reported. Procedures Surgical History Date Name Laterality Status Provider Name and Address Organization Details Recorded Time excision of bilateral breasts completed PHIL Mcbride [address], [place], [address], [place] [facility] 08/30/20[facility] 14:48:21 Imaging Results None recorded. [...] Former Smoker PHIL Mcbride [address], [place], [address], [place] [facility] 08/30/2022 14:47:30 Do You Have An Advance Directive? Yes [email or web address] Information not available 08/30/2022 What Is Your Level Of Alcohol Consumption? None [email or web address] Information not available 08/30/2022 What Is Your Code Status? DNR [email or web address] Information not available 08/30/2022 Excessive Alcohol Or Drug Use No [email or web address] Information not available 08/30/2022 Does This Patient Have A PCP? Yes [email or web address] Information not available 08/30/2022 Has The Patient Seen Their PCP In The Past 6 Months? Yes [email or web address] Information not available 08/30/2022 Is This Patient In Hospice? No [email or web address] Information not available 08/30/2022 Do You Use Any Illicit Or Recreational Drugs? No [email or web address] Information not available 08/30/2022 Sex: Unknown Functional Status None recorded. Mental Status None recorded. Family History Relationship Description Onset Age of this Age Resolved Age Notes LastModified by Organization Details LastModified Time Father Coronary arterioscler osis [email or web address] Not available 08/30 14:45:38 Medical History Condition [...] SNOMED-CT Code Diagnosis ICD10 Code Diagnosis Note [id number] [facility] [address] [place] [address] 08/30/2022 14:38:44 09/01/2022 19:29:15 Peripheral edema 459640702 R60.9 Atopic dermatitis 426563 01 L20.9 Health Concerns Section Related Observation LastModified by Organization Detai ls LastModified Time None Recorded Concern Status LastModified by Organization Details LastModified Time None Recorded Advance Directives Directive Y: Payers Encounter Date Sequence Insurance Name Policy Number Policy Ramirez Covered Member ID Ramirez Member ID Guarantor Name 08/30/2022 1 [place] [employer] Jing Bautista [id number] Jing Bautista 08/30/2022 2 [facility] [employer]IELD [id number] Jing Bautista [id number] Jing Bautista Notes Date Note Type [...] results yet. PHIL Mcbride [address], [place], [address], [place] [facility] 08/30/2022 15:33:18 OBGyn Episode No OBEpisode recorded.
--- OUTSIDE RECORDS SUMMARY | 2024-12-01 05:53 | XMS_ITS | Encounter Summary ---
Author Organization [facility], Address [address] [place] [address] Phone Care Team Providers Care Completions Engineer Name Role Phone Villa Jiang MD Primary Care Provider Unav ailable Encounter Details Date Type Department Care Team (Late st Contact Info) Description 04/28/2024 Documentation Only [facility], [address] [place] [address] Felicitas Medellin [address] [place] [phone] Social History Tobacco Use Types Packs/Day Years [...] on filedocumented in this encounter Care Teams Completions Engineer Relationship Specialty Start Date End Date Villa Jiang MD [address] [place] [address] PCP - General Internal Medicine 03/19/23 documented as of this encounter
--- OUTSIDE RECORDS SUMMARY | 2024-12-01 05:53 | XMS_ITS | Encounter Summary ---
Author Organization [facility], Address [address] [place] [address] Phone Care Team Providers Care Sewing Machine Operator Zipper Name Role Phone Villa Jiang MD Primary Care Provider Unav ailable Encounter Details Date Type Department Care Team (Late st Contact Info) Description 10/07/2023 Documentation Only [facility], [address] [place] [address] Felicitas Medellin [address] [place] [phone] Social History Tobacco Use Types Packs/Day Years [...] on filedocumented in this encounter Care Teams Sewing Machine Operator Zipper Relationship Specialty Start Date End Date Villa Jiang MD [address] [place] [address] PCP - General Internal Medicine 03/19/23 documented as of this encounter
--- OUTSIDE RECORDS SUMMARY | 2024-12-01 05:53 | XMS_ITS | Encounter Summary ---
Author Organization [facility], Address [address] [place] [address] Phone Care Team Providers Care Train Controller Name Role Phone Villa Jiang MD Primary Care Provider Unav ailable Encounter Details Date Type Department Care Team (Late st Contact Info) Description 04/28/2024 Documentation Only [facility], [address] [place] [address] Felicitas Medellin [address] [place] [phone] Social History Tobacco Use Types Packs/Day Years [...] on filedocumented in this encounter Care Teams Train Controller Relationship Specialty Start Date End Date Villa Jiang MD [address] [place] [address] PCP - General Internal Medicine 03/19/23 documented as of this encounter
--- OUTSIDE RECORDS SUMMARY | 2024-12-01 05:53 | XMS_ITS | Encounter Summary ---
Author Organization [facility], Address [address] [place] [address] Phone Care Team Providers Care Valve Grinder Name Role Phone Villa Jiang MD Primary Care Provider Unav ailable Encounter Details Date Type Department Care Team (Late st Contact Info) Description 05/03/2022 Documentation Only [facility], [address] [place] [address] Michael Regan ID [address] [place] [phone] Social History Tobacco Use Types Packs/Day Years [...] on filedocumented in this encounter Care Teams Valve Grinder Relationship Specialty Start Date End Date Villa Jiang MD [address] [place] [address] PCP - General Internal Medicine 03/19/23 documented as of this encounter
--- OUTSIDE RECORDS SUMMARY | 2024-12-01 05:53 | XMS_ITS | Encounter Summary ---
Author Organization [facility], Address [address] [place] [address] Phone Care Team Providers Care Research And Development Chemist Name Role Phone Villa Jiang MD Primary Care Provider Unav ailable Encounter Details Date Type Department Care Team (Late st Contact Info) Description 04/28/2024 Documentation Only [facility], [address] [place] [address] Felicitas Medellin [address] [place] [phone] Social History Tobacco Use Types Packs/Day Years [...] on filedocumented in this encounter Care Teams Research And Development Chemist Relationship Specialty Start Date End Date Villa Jiang MD [address] [place] [address] PCP - General Internal Medicine 03/19/23 documented as of this encounter
--- OUTSIDE RECORDS SUMMARY | 2024-12-01 05:53 | XMS_ITS | Encounter Summary ---
Author Organization [facility], Address [address] [place] [address] Phone Care Team Providers Care Customer Acquisition Specialist Name Role Phone Villa Jiang MD Primary Care Provider Unav ailable Encounter Details Date Type Department Care Team (Late st Contact Info) Description 10/07/2023 Documentation Only [facility], [address] [place] [address] Felicitas Medellin [address] [place] [phone] Social History Tobacco Use Types Packs/Day Years [...] on filedocumented in this encounter Care Teams Customer Acquisition Specialist Relationship Specialty Start Date End Date Villa Jiang MD [address] [place] [address] PCP - General Internal Medicine 03/19/23 documented as of this encounter
--- OUTSIDE RECORDS SUMMARY | 2024-12-01 05:53 | XMS_ITS | Encounter Summary ---
Author Organization [facility], Address [address] [place] [address] Phone Care Team Providers Care Siene Maker Name Role Phone Villa Jiang MD Primary Care Provider Unav ailable Encounter Details Date Type Department Care Team (Late st Contact Info) Description 04/28/2024 Documentation Only [facility], [address] [place] [address] Felicitas Medellin [address] [place] [phone] Social History Tobacco Use Types Packs/Day Years [...] on filedocumented in this encounter Care Teams Siene Maker Relationship Specialty Start Date End Date Villa Jiang MD [address] [place] [address] PCP - General Internal Medicine 03/19/23 documented as of this encounter
--- OUTSIDE RECORDS SUMMARY | 2024-12-01 05:53 | XMS_ITS | Encounter Summary ---
Author Organization [facility], Address [address] [place] [address] Phone Care Team Providers Care Chain Saw Operator Name Role Phone Villa Jiang MD Primary Care Provider Unav ailable Encounter Details Date Type Department Care Team (Late st Contact Info) Description 04/28/2024 Documentation Only [facility], [address] [place] [address] Felicitas Medellin [address] [place] [phone] Social History Tobacco Use Types Packs/Day Years [...] on filedocumented in this encounter Care Teams Chain Saw Operator Relationship Specialty Start Date End Date Villa Jiang MD [address] [place] [address] PCP - General Internal Medicine 03/19/23 documented as of this encounter
--- OUTSIDE RECORDS SUMMARY | 2024-12-01 05:53 | XMS_ITS ---
Author Organization [facility] Address [address] [place] [address] Care Team Providers Care Log Grader Name Role Phone Sandro GUNDERSON, Jesusita Primary Care Provider Alex Soriano [facility] [phone] REASON FOR VISIT gi bleed Encounters Encounter Location Date Provider Diagnosis [facility] Inpatient [address] [place], [place] [id number] 01/01/2024 Alex Howard Plan Of Treatment No Information Progress Notes * JOHNNIE ANDREWSDOB:1945 (79 yo F)Acc No.[id number]:01/01/2024 EGD and COL/MAC Patient:?JOHNNIE ANDREWS Provider:?Alex Howard MD :1945???Age:78 Y???Sex:Female D ate:01/01/2024 Address:[address] [place], [place] [id number] Pcp:Jesusita Jo MD Subjective: * Chief Complaints: [...] MD Date:? 024 Generated for Cesar harrison/Chanda/eTransmitting on:?12/01/2024 05:52 AM EDT
--- OUTSIDE RECORDS SUMMARY | 2024-12-01 05:53 | XMS_ITS | Encounter Summary ---
Author Organization [facility], Address [address] [place] [address] Phone Care Team Providers Care Reporting Specialist Name Role Phone Villa Jiang MD Primary Care Provider Unav ailable Encounter Details Date Type Department Care Team (Late st Contact Info) Description 04/28/2024 Documentation Only [facility], [address] [place] [address] Felicitas Medellin [address] [place] [phone] Social History Tobacco Use Types Packs/Day Years [...] on filedocumented in this encounter Care Teams Reporting Specialist Relationship Specialty Start Date End Date Villa Jiang MD [address] [place] [address] PCP - General Internal Medicine 03/19/23 documented as of this encounter
--- OUTSIDE RECORDS SUMMARY | 2024-12-01 05:53 | XMS_ITS | Patient Health Record ---
Author Organization [facility] Address [address] [place] [address] Care Team Providers Care Adult Neurologist Name Role Phone Sandro GUNDERSON, Jesusita Primary Care Provider Alex Soriano Unavailable [phone] Results Component Value Reference Range Notes Basic Metabolic Panel Fastin g Reviewed date:01/01/2024 12:21:26 PM Interpretation: Performing Lab:[facility], [address] [place] [address] Notes/Report: Unable to obtain, BRIGNOR Sodium 144 [...] Glomerular Filt Rate > 60 NOTE: For -Austrian individuals, multiply the result by 1.210. Chronic Kidney Disease: Estimated GFR < 60 mL/min/1.73m2 Severe Kidney Disease: Estimated GFR < 15 mL/min/1.73m2 Glucose Fasting 76 60-99 mg/dL Calcium 8.3 8.4-10.2 mg/dL Pathology (Not yet reviewed by provider) Interpretation: Performing Lab:[facility], [address] [place] [address] Notes/Report: -- Name: Jing Andrews Age/Sex: 78/F : 1945 Unit#: [id number] Attend Dr: Mandeep aCt MD Re12/29/23 Status : DIS IN Location: [facility] 446-1 Disch: 01/08/24 -- SPEC : [id number] RECD : 01/02/24 STATUS: [place] NUM: [id number] PRIYANKA: 01/01/24-[address] [facility] [address]: Alex Howard MD ENTERED: 01/02/24- [...] attached molecular report for BRAF mutations from [facility] with the following results: - BRAF V600E: [...] services f or immunohistochemistry studies performed at [facility] [address] Angelika castellon [place], [place]; [facility] #[id number] Addendum Signed (signature on file) Jean Pierre Street MD 01/13/24 0759 -- CONTINUED ON NEXT PAGE -- Name: Jing Andrews Age/Sex: 78/F : 1945 Unit#: [id number] Attend Dr: Mandeep Cat MD Re12/29/23 Status : DIS IN [facility] 446-1 Disch: 01/08/24 -- SPEC : [id number] RECD : 01/02/24 STATUS: [place] NUM: [id number] PRIYANKA: 01/01/24-[address]: Alex Howard MD [...] results were communicated to Dr. Howard via [facility] text on 01/05/2024. Special stains order ed and performed: Immunostains for MLH1, MSH2, MSH6, PMS2 and CDX2 on A1. Copies To: Jesusita Jo MD [facility] [address] [place] [address] CONTINUED ON NEXT PAGE -- Name: Jing Andrews Age/Sex: 78/F : 1945 Unit#: [id number] Attend Dr: Mandeep Cat MD Re12/29/23 Status : DIS IN Location: [facility] 446-1 Disch: 01/08/24 -- SPEC : [id number] RECD : 01/02/24 STATUS: [facility] NUM: [id number] PRIYANKA: 01/01/24-[address] [facility] [address]: Alex Howard MD ENTERED: 01/02/24- SP TYPE: Surgical OTHR DR: Jesusita Jo MD, Raphael MD ORDERED: HE Stain/3, Gross Micro L4, IHC, Add. immunos/4, CDX-2 COMMENTS: Block A se nt to [facility] for BRAF Mutation Analysis on 01/13/24. Block A sent to [facility] for MMR Panel IHC's on 01/05/24. Copies To: (Continued) Paco Felix MD [address] [place] [address] Alex Howard MD [address] [place], [place] [id number] -- Signed (si gnature on file) Stefanie Fishman MD 01/05/24 1139 (signature on file) Jean Pierre Street MD 01/13/24 0759 -- END OF REPORT Reason For Referral No Information Encounters Encounter Location Date Provider Diagnosis [facility] [address] [facility] [place] [place] [id number] 01/01/2024 Alex Howard Plan Of Treatment Pending Test Test Name Order Date Pathology 01/01/2024 Insurance Providers Payer Name Payer Address Payer Phone Subscriber Number Group Number Insured Name Patient Relationship to Insured Coverage Start Date Coverage End Date MEDICARE OF [place] [address] [place] [address] [id number] JING ANDREWS Self - patient is the insured [employer] CLAIMS [address] [place] [address] [phone] [id number] JING ANDREWS Self - patient is the insured
--- OUTSIDE RECORDS SUMMARY | 2024-12-01 05:53 | XMS_ITS | Data Portability ---
Author Organization [facility], Main Office Address [address] [facility] [address] [place] [address] Care Team Providers Care Night Patrol Inspector Name Role Phone ERIC BUCHANAN 1ST FLOOR OTHER AMEENA SHRESTHA Primary Care Provider Assessment Encounter [...] Address Organization Details Recorded Time Essential hypertension 56121681 Active 2023 SHAWNA PRAKASH [address], [address], [place], [address], [facility] [employer] 4 18:08:53 Closed fracture of hip 826769387 Active 2023 SHAWNA PRAKASH [address], [address], [place], [address], [facility] [employer] 4 18:09:20 Hyperlipidemia 58789959 Active 2023 SHAWNA PRAKASH [address], [address], [place], [address], [employer] 4 18:09:33 Bipolar disorder 53994266 Active 2023 SHAWNA PRAKASH [address], [address], [place], [address], [facility] [employer] 4 18:09:40 Cognitive disorder 506948037 Active 2023 SHAWNA PRAKASH [address], [address], [place], [address], [employer] 4 18:09:47 Osteoarthritis 531778834 Active 2023 SHAWNA PRAKASH [address], [address], [place], [address], [facility] [employer] 4 18:10:03 Acute non-ST segment elevation myocardial infarction 696064523 Active 2023 SHAWNA PRAKASH [address], [address], [place], [address], [facility] [employer] [facility] 4 18:11:00 Gastroesophage al reflux disease 371096183 Active 2023 SHAWNA PRAKASH [address], [address], [place], [address], [facility] [employer] [facility] 4 18:11:31 Constipation 57367491 Active 2023 SHAWNA PRAKASH [address], [address], [place], [address], [facility] [employer] [facility] 4 18:53:26 Pulmonary embolism 80537972 Active 2023 SHAWNA PRAKASH [address], [address], [place], [address], [facility] [employer] [facility] 4 18:53:38 Deep venous thrombosis of lower extremity 950198007 Active 2023 SHAWNA PRAKASH [address], [address], [place], [address], [facility] [employer] [facility] 4 18:53:58 Anticoagulant therapy Active 2023 SHAWNA PRAKASH [address], [address], [place], [address], [facility] [employer] 4 18:55:47 Closed fracture of hip 971306767 Active 2023 Kinza Aguilar MD [address], [place], [address], [facility] [employer] 4 18:40:28 Problem Notes None recorded. Medical [...] Updated DateTime 4 160.02 cm 30.6 kg/m2 86948.7 6 g 90 /min 18 /min 97.9 [degF] 92 % 92 % 124 mm[Hg] 72 mm[Hg] Kinza Aguilar MD [address] [facility], [address], [place], [address], [employer] [facility] 4 18:48:48 Date Recorded Body height Body temperature Respiratory rate Heart rate Oxygen saturation Oxygen saturation in Arterial blood by Pulse oximetry Systolic blood pressure Diastolic blood pressure Provider Name and Address Organization Details Last Updated DateTime 160.02 cm 97.9 [degF] 18 /min 72 /min 96 % 96 % 101 mm[Hg] 59 mm[Hg] SHAWNA PRAKASH [address], [place], [address], [employer] [facility] 4 20:20:42 Date Recorded Body height Heart rate Respiratory rate Body temperature Oxygen saturation Oxygen saturation in Arterial blood by Pulse oximetry Systolic blood pressure Diastolic blood pressure Provider Name and Address Organization Details Last Updated DateTime 160.02 cm 82 /min 18 /min 97.9 [degF] 95 % 95 % 108 mm[Hg] 61 mm[Hg] SHAWNA PRAKASH [address], [place], [address], [employer] [facility] 4 18:13:08 Date Recorded Body height Provider Name an d Address Organization Details Last Updated DateTime 12/26/2023 160.02 cm SHAWNA PRAKASH [address] [facility], [address], [place], [address], [employer] [facility] 12/26/2023 15:43:49 Social History Question Answer Notes LastModified by Organizat ion Details LastModified Time Tobacco Smoking Status Former Smoker quit 2012 Kinza Aguilar MD [address] , [address], [place], [address], [employer] [facility] 12/11/2023 18:53:26 Do You Have An Advance Directive? Yes Information not available 12/11/2023 What Is Your Code Status? DNR/DNI Information not available 12/11/2023 Where Do You Live? Condo Information not available 12/11/2023 Legal Guardian? No Informati on not available 12/11/2023 Do You Have A Medical Power Of Electronic Musical Instrument Repairer? Yes Information not available 12/11/2023 What Was [...] Pneumococcal conjugate PCV 13 6 completed Lori [facility] 12/10/2023 16:53:02 Pneumococcal conjugate PCV20, polysaccharide [id number] conjugate, adjuvant, PF 3 completed Lori Stock [facility] 12/10/2023 16:53:17 influenza, unspecified formulation 2 completed Lori Stock [facility] 12/10/2023 16:53:32 influenza, unspecified formulation 3 completed Lori Stock [facility] 12/10/2023 16:53:42 SARS-COV-2 (COVID-19) vaccine, UNSPECIFIED 1 completed Lori Stock [facility] 12/10/2023 16:53:56 SARS-COV-2 (COVID-19) vaccine, UNSPECIFIED 1 completed Lori Stock [facility] 12/10/2023 16:54:05 SARS-COV-2 (COVID-19) vaccine, UNSPECIFIED 1 completed Lori Stock [facility] 12/10/2023 16:54:12 SARS-COV-2 (COVID-19) vaccine, UNSPECIFIED 2 completed Lorimele Stock [facility] 12/10/2023 16:54:19 SARS-COV-2 (COVID-19) vaccine, UNSPECIFIED 2 completed Lori [facility] 12/10/2023 16:54:27 SARS-COV-2 (COVID-19) vaccine, UNSPECIFIED 3 completed Lori [facility] 12/10/2023 16:54:35 zoster live 3 completed Lori [facility] 12/10/2023 16:54:55 zoster recombinant 9 completed [facility] 12/10/2023 16:55:13 zoster recombinant 9 [facility] 12/10/2023 16:55:24 Past Encounters Encounter ID Performer Location Encounter Start Date Encounter Closed Date Diagnosis/Indication Diagnosis SNOMED-CT Code Diagnosis ICD10 Code Diagnosis Note [id number] SHAWNA PRAKASH [address] [place] [address] [place] [address] 12/10/2023 09:43:49 12/16/2023 11:19:07 Closed fracture of hip 250646378 S72.092A subcapital left femur neck fractures/ p left hemiarthro plastycont inue tramadol 25 mg dailytylen ol 650mg prnfollow up with orthoPT/OT eval and treat Anticoagulant therapy 18 1528465 Z79.01 recent hx of bilat Lower extremity DVT and PEcontinue eliquis 10 mg BID until 12/13 then 10 mg BIDmonitor for abnormal bruising or bleeding Bipolar disorder 2941299 4 F31.9 continue risperdal 25 mg ER IM Q14 dayscontin ue divalproex 500 mg ER dailynortr iptyline 10 mg dailymonit or for mood and behavior changes.ps ych prn Essential hypertension 26097037 I10 continue furosemide 20 mg daily and lisinopril 5 mgmonitor BP Hyperlipidemia 45467945 E78.5 continue simvastati n 20 mg daily Constipation 11239161 K5 9.00 continue miralax 17 gm daily and colace 100 mg dailymonit or bowel sounds Gastroesop hageal reflux disease 176291267 K21.9 protonix 20 mg dailymonit or for GI upset Osteoarthritis 599601824 M19.90 continue tramadol and tylenol prn. [id number] Kinza Aguilar MD [address] [place] [address] 12/11/2023 18:35:49 12/26/2023 15:12:27 Closed fracture of hip 078528953 S72.092D Recovering slowly.Nee ds PT/OT for strengthen ing, balance, gait training, safety and function.C ontinue fall precaution s.Monitor for safety.Con tinue tramadol 25 mg q 6 hrs prn and APAP 650 mg q 6 hrs prn.Monito r pain control and progress.F /U with ortho as planned. Bipolar disorder 1543123 4 F31.89 Mood good tonight.Co ntinue risperdal 25 mg ER IM q 14 days, divalproex 500 mg ER qd, and nortriptyl ine 10 mg qdMonitor mood.Consu lt psych prn Essential hypertension 48962925 I10 BP in good control since here on furosemide 20 mg qd and lisinopril 5 mg qdMonitor BP and labs Hyperlipidemia 90107094 E78.49 Continue simvastati n 20 mg qdMonitor labs as outpt. Constipation 57199279 K5 9.09 Good bowel sounds, but still hasn't had BM (x 5 days).Incr ease colace to 100 mg BID and miralax 17 gms BID.Monito r bowel function Gastroesop hageal reflux disease 920974437 K21.9 No current sxs.Contin ue pantoprazo le 20 mg qdMonitor for GI sxs Osteoarthritis 264706219 M15.0 Continue pain meds and PT/OT as above.Aleena tor Pulmonary embolism 01469 003 I26.99 S/P BLE DVT and PE with thrombecto my.Continu e eliquis 10 mg BID until 12/13 then 5 mg BIDMonitor resp sxs and signs of bleeding. Deep venou s thrombosis of lower extremity 417804531 I82.409 As above. [id number] SHAWNA PRAKASH [address] [address] 12/15/2023 11:08:58 12/19/2023 14:49:55 Closed fracture of hip 568218502 S72.092A subcapital left femur neck fractures/ p left hemiarthro plastycont inue tramadol 25 mg dailytylen ol 650mg prnfollow up with orthoPT/OT eval and treat Anticoagulant therapy 18 5787940 Z79.01 recent hx of bilat Lower extremity DVT and PEcontinue eliquis 10 mg BID until 12/13 then 10 mg BIDmonitor for abnormal bruising or bleeding Bipolar disorder 6417319 4 F31.9 continue risperdal 25 mg ER IM Q14 dayscontin ue divalproex 500 mg ER dailynortr iptyline 10 mg dailymonit or for mood and behavior changes.ps ych prn Essential hypertension 31467595 I10 continue furosemide 20 mg daily and lisinopril 5 mgmonitor BP [id number] SHAWNA PRAKASH [address] [address] 12/18/2023 10:43:55 12/23/2023 14:38:58 Closed fracture of hip 942739937 S72.092A subcapital left femur neck fractures/ p left hemiarthro plastycont inue tramadol 25 mg dailytylen ol 650mg prnfollow up with orthoPT/OT Anticoagulant therapy 18 8950721 Z79.01 recent hx of bilat Lower extremity DVT and PEcontinue eliquis 5 mg BIDmonitor for abnormal bruising or bleeding Bipolar disorder 6601443 4 F31.9 continue risperdal 25 mg ER IM Q14 dayscontin ue divalproex 500 mg ER dailynortr iptyline 10 mg dailymonit or for mood and behavior changes.ps ych prn Essential hypertension 38529213 I10 continue furosemide 20 mg daily and lisinopril 5 mgmonitor BP [id number] SHAWNA PRAKASH [address] [address] 12/22/2023 12:46:20 12/23/2023 15:34:36 Closed fracture of hip 840668892 S72.092A subcapital left femur neck fractures/ p left hemiarthro plastycont inue tramadol 25 mg dailytylen ol 650mg prnfollow up with orthoPT/OT Anticoagulant therapy 18 5014875 Z79.01 recent hx of bilat Lower extremity DVT and PEcontinue eliquis 5 mg BIDmonitor for abnormal bruising or bleeding Bipolar disorder 3149628 4 F31.9 continue risperdal 25 mg ER IM Q14 dayscontin ue divalproex 500 mg ER dailynortr iptyline 10 mg dailymonit or for mood and behavior changes.ps ych prn Essential hypertension 72386696 I10 continue furosemide 20 mg daily and lisinopril 5 mgmonitor BP [id number] SHAWNA PRAKASH DEWAYNE [address] [facility] [place] [address] 12/26/2023 09:50:52 12/30/2023 10:19:14 Closed fracture of hip 549538315 S72.092A subcapital left femur neck fractures/ p left hemiarthro plastycont inue tramadol 25 mg dailytylen ol 650mg prnfollow up with orthoPT/OT Constipation 20946048 K5 9.00 see hpiabdomin al KUB orderedinc rease water intake.con tinue miralax 17 gm daily and colace 100 mg dailymonit or bowel sounds Low blood pressure 83258 003 I95.9 sbp reported in the 80's with dizzinessm idodrine 5 mg prn TIDupdated provider with new changespla ce parameter on lisonpril Dysuria 39703118 R30.0 straight cath for UA with c&s Health Concerns Section Related Observation LastModified by Organization Detai ls LastModified Time None Recorded Concern Status LastModified by Organization Details LastModified Time None Recorded Advance Directives Directive Y: Payers Encounter Date Sequence Insurance Name Policy Number Policy Ramirez Covered Member ID Ramirez Member ID Guarantor Name 12/11/2023 2 [place] [id number] Jing Bautista [id number] Jing Bautista 12/11/2023 1 [place] [employer] Jing A Cadden [id number] Jing Cadden 12/15/2023 2 [place] [id number] Jing Cadden [id number] Jing Cadden 12/15/2023 1 [place] [employer] [place] Jing A Cadden [id number] Jing Cadden 12/18/2023 2 [place] [id number] Jing Cadden [id number] Jing Cadden 12/18/2023 1 [place] [employer] [place] Jing A Cadden [id number] 3 Jing Cadden 12/22/2023 2 [place] [id number] Jing Cadden [id number] Jing Cadden 12/22/2023 1 [place] Jing A Cadden [id number] Jing Cadden 12/26/2023 2 [place] [id number] Jing Cadden [id number] Jing Cadden 12/26/2023 1 [place] [place] Jing A Cadden [id number] 3 Jing Cadden Notes Date Note Type Note Provider Name and Address Organization Details Recorded Time 12/11/2023 text/html This is a 78 yo woman who is here for rehab after an acute hospitalization for a left femur fx after a fall from lightheadedness, course complicated by a PE with thrombectomy and IVC filter placement, and NSTEMI.She presented to [place] [facility] on 11/28 after a fall when [...] left femoral neck fracture, as well as [id number] osteoarthritis of the bilateral hips and large [...] and bipolar disorder. Kinza Aguilar MD [address] [facility], [address], [place], [address], [employer] [facility] 12/24/2023 18:50:46 12/15/2023 text/html This is [...] today acute rounding visit. SHAWNA PRAKASH [address] [facility], [address], [place], [address], [employer] [facility] 12/17/2023 19:59:44 12/18/2023 text/html This is [...] no acute nursing concerns. SHAWNA PRAKASH [address] [facility], [address], [place], [address], [employer] [facility] [employer] [facility] 12/19/2023 20:25:02 12/22/2023 text/html This is [...] today acute rounding visit. SHAWNA PRAKASH [address] [facility], [address], [place], [address], [employer] 12/22/2023 18:26:10 12/26/2023 text/html This is a [...] KUB and monitor VS. SHAWNA PRAKASH [address] [facility], [address], [place], [address], [employer] 12/26/2023 15:55:34 OBGyn Episode No OBEpisode recorded.
[2024-12-01 06:20] LABS: Basophils Percent Auto 0.2 % (0-2); Eosinophils Absolute Auto 0.2 X10*3/uL (0.0-0.4); Eosinophils Percent Auto 1.8 % (0-4); Hematocrit 29.2 % (37.0-47.0); Hemoglobin 9.1 g/dl (12.0-16.0); Imm Gran Pct Auto 0.8 % (0.0-0.4); Lymphocytes Absolute Auto 1.9 X10*3/uL (1.2-4.9); Mean Corpuscular HGB Conc 31.2 g/dl (31.0-35.0); Mean Corpuscular Hemoglobin 28.2 pg (27.0-33.0); Mean Corpuscular Volume 90.4 fL (80.0-98.0); Mean Platelet Volume 9.3 fL (9.4-12.3); Monocytes Absolute Auto 0.7 X10*3/uL (0.1-1.2); Monocytes Percent Auto 5.4 % (2-11); Neutrophils Absolute Auto 9.6 x10*3/uL (2.0-8.3); Neutrophils Percent Auto 76.8 % (45-73); Platelet Count 323 X10*3/uL (160-400); Red Blood Count 3.23 X10*6/uL (4.20-5.50); Red Cell Distribution Width 16.1 % (11.0-16.0); White Blood Count 12.4 X10*3/uL (4.8-10.8)
[2024-12-01 06:46] LABS: Alanine Aminotransferase < 6 U/L (0-31); Alkaline Phosphatase 75 U/L (39-117); Anion Gap 14 (12-20); Aspartate Amino Transferase 12 U/L (5-31); Bilirubin Total 0.1 mg/dL (0.0-1.0); Blood Urea Nitrogen 20 mg/dL (9-16); Calcium 8.9 mg/dL (8.4-10.2); Carbon Dioxide 26 mmol/L (22-29); Chloride 105 mmol/L (96-108); Estimated Glomerular Filt Rate 49; Glucose Random 114 mg/dL (60-115); Potassium 3.7 mmol/L (3.3-5.1); Sodium 141 mmol/L (135-145); Total Protein 6.2 g/dL (6.5-8.0)
== END 2024-12-01 05:51 | disposition home or self-care (01) ==
LOC: HO.MMNH1L 05:50
PROVIDERS: Visit Provider Nurse Practitioner
DX: E11.9 Type 2 diabetes mellitus without complications (principal)
CPT/HCPCS: 36415; 80053; 85025

== ENCOUNTER 2025-03-02 05:58 | Outpatient (REF) | payer MEDICARE, SELFPAY ==
[2025-03-02 06:01] LABS: MANUAL DIFF FLAG NO
--- OUTSIDE RECORDS SUMMARY | 2025-03-02 06:01 | XMS_ITS | Data Portability ---
Author Organization [place] [facility] Address [address] [place] [address] Care Team Providers Care Gear Machinist Name Role Phone TAYLOR FAJARDO Primary Care [...] ago. I do not have access to [facility] to review labs and prior records. Vital [...] after care of this patient according to [facility]'s infection prevention protocols. [email or web address] Not available 08/30/2022 15:33:04 Plan of Treatment Reminders Order Date Submit Date Provider Last Modified By Organization Details Last Modified Time Details Appointments None recorded. Lab None recorded. Referral None recorded. Procedures None recorded. Surgeries None recorded. Imaging None recorded. Medication Orders triamcinolo ne acetonide 0.1 % topical cream 2022 023 [facility] #[id number], [address] [place], [address], 15:03:34 Patient TargetsNo targets recorded. Patient InstructionsNo instructions recorded. Reason for Referral None Reported. Procedures Surgical History Date Name Laterality Status Provider Name and Address Organization Details Recorded Time excision of bilateral breasts completed PHIL Mcbride [address], [place], [address], [place] [facility] 08/30/2022 14:48:21 Imaging Results None recorded. [...] in Arterial blood by Pulse oximetry Systolic And Diastolic Provider Name and Address Organization Details Last Updated DateTime 3 89 /min 16 /min 98 [degF] 94 % 94 % 118/62 mm[Hg] Not Available [facility] 14:47:18 Social History Question Answer Notes LastModified by [employer] Details LastModified Time Tobacco Smoking Status Former Smoker PHIL Mcbride [address], [place], [address], [place] [facility] 08/30/2022 14:47:30 Do You Have An Advance Directive? Yes [email or web address] Information not available 08/30/2022 What Is Your Code Status? DNR [email or web address] Information not available 08/30/2022 Excessive Alcohol Or Drug Use No [email or web address] Information not available 08/30/2022 Does This Patient Have A PCP? Yes Information not available 08/30/2022 Has The Patient Seen Their PCP In The Past 6 Months? Yes [email or web address] Information not available 08/30/2022 Is This Patient In Hospice? No [email or web address] Information not available 08/30/2022 Sex: Unknown Functional Status Question Answer Note LastModified by [employer] Details LastModified Time Do you use any illicit or recreational drugs? No [email or web address] Information not available 08/30/2022 What is your level of alcohol consumption? None [email or web address] Information not available 08/30/2022 Mental Status None recorded. Family History Relationship Description Onset Age of this Age Resolved Age Notes LastModified by Organization Details LastModified Time Father Coronary arterioscler osis Not available 08/30 14:45:38 Medical History Condition Response Diabetes Y Coronary Artery Disease N CHF N Parkinson's Disease N Cancer Y Stroke N Dementia N Asthma N COPD N Depression N Hypothyroidism N High Cholesterol Y Rheumatoid Arthritis N Pulmonary Embolism N Hypertension Y A-fib N Osteoporosis N Kidney Disease Y Gynecological HistoryNo gynecological history recorded. Obstetrics History GPAL:G 0 P 0 0 0 0 Past Encounters Encounter ID Performer Location Encounter Start Date Encounter Closed Date Diagnosis/Indication Diagnosis SNOMED-CT Code Diagnosis ICD10 Code Diagnosis Note [id number] PHIL Mcbride [facility] [address] [place] [facility] [place] [address] 08/30/2022 14:38:44 09/01/2022 19:29:15 Peripheral edema 071306128 R60.9 Atopic dermatitis 070685 01 L20.9 Health Concerns Section Related Observation LastModified by Organization Detai ls LastModified Time None Recorded Concern Status LastModified by Organization Details LastModified Time None Recorded Advance Directives Directive Y: Payers Insurance Date Sequence Insurance Name Policy Number Policy Ramirez Covered Member ID Ramirez Member ID Guarantor Name 09/23/2022 2 [place] [id number] Jing Cadden [id number] Jing Cadden 08/30/2022 2 [place] [id number] Jing Cadden [id number] Jing Cadden 08/30/2022 2 [place] [id number] Jing Cadden [id number] Jing Cadden 08/30/2022 2 [place] [id number] Jing Cadden [id number] Jing Cadden 09/23/2022 1 [place] [employer] Jing A Cadden [id number] Jing Cadden 08/29/2022 1 *SELF PAY* Jing Cadden [id number] Jing Cadden Notes Date Note Type Note [...] results yet. PHIL Mcbride [address], [place], [address], [place] [facility] 08/30/2022 15:33:18 OBGyn Episode No OBEpisode recorded.
[2025-03-02 06:58] LABS: Hematocrit 28.5 % (37.0-47.0); Hemoglobin 9.2 g/dl (12.0-16.0); Imm Gran Abs Auto 0.08 X10*3/uL (0.00-0.03); Imm Gran Pct Auto 0.7 % (0.0-0.4); Lymphocytes Absolute Auto 2.0 X10*3/uL (1.2-4.9); Mean Corpuscular HGB Conc 32.3 g/dl (31.0-35.0); Mean Corpuscular Hemoglobin 28.6 pg (27.0-33.0); Mean Corpuscular Volume 88.5 fL (80.0-98.0); NRBC Abs Auto 0.000 X10*3/uL (0.0-0.012); NRBC Pct Auto 0.0 /100WBC (0.0-0.2); Platelet Count 263 X10*3/uL (160-400); Red Blood Count 3.22 X10*6/uL (4.20-5.50); White Blood Count 10.8 X10*3/uL (4.8-10.8)
[2025-03-02 06:59] LABS: Alanine Aminotransferase 6 U/L (0-31); Albumin Level 3.2 g/dL (3.5-5.0); Alkaline Phosphatase 78 U/L (39-117); Anion Gap 14 (12-20); Aspartate Amino Transferase 11 U/L (5-31); Blood Urea Nitrogen 31 mg/dL (9-16); Calcium 8.9 mg/dL (8.4-10.2); Carbon Dioxide 27 mmol/L (22-29); Chloride 103 mmol/L (96-108); Estimated Glomerular Filt Rate 50; Potassium 3.7 mmol/L (3.3-5.1); Sodium 140 mmol/L (135-145); Total Protein 6.1 g/dL (6.5-8.0)
== END 2025-03-02 05:59 | disposition home or self-care (01) ==
LOC: HO.MMNH2L 05:58
PROVIDERS: Visit Provider Nurse Practitioner Family
DX: E11.9 Type 2 diabetes mellitus without complications (principal); I49.9 Cardiac arrhythmia, unspecified; I10 Essential (primary) hypertension
CPT/HCPCS: 36415; 80053; 85025

== ENCOUNTER 2025-03-07 16:46 | Outpatient (REF) | payer MEDICARE, SELFPAY ==
--- OUTSIDE RECORDS SUMMARY | 2025-03-07 17:08 | XMS_ITS | Encounter Summary ---
Author Organization [facility], Address [address] [place] [address] Phone Care Team Providers Care Human Factors Scientist Name Role Phone Villa Jiang MD Primary Care Provider Unav ailable Encounter Details Date Type Department Care Team (Late st Contact Info) Description 04/28/2024 Documentation Only [facility], [address] [place] [address] Felicitas Medellin [address] [place] [phone] Social History Tobacco Use Types Packs/Day Years [...] on filedocumented in this encounter Care Teams Human Factors Scientist Relationship Specialty Start Date End Date Villa Jiang MD [address] [place] [address] PCP - General Internal Medicine 03/19/23 documented as of this encounter
--- OUTSIDE RECORDS SUMMARY | 2025-03-07 17:08 | XMS_ITS | Data Portability ---
Author Organization [place] - [facility] Address [address] [place] [address] Care Team Providers Care Digital Producer Name Role Phone TAYLOR FAJARDO Primary Care [...] ago. I do not have access to [facility] to review labs and prior records. Vital [...] after care of this patient according to [facility]'s infection prevention protocols. [email or web address] Not available 08/30/2022 15:33:04 Plan of Treatment Reminders Order Date Submit Date Provider Last Modified By Organization Details Last Modified Time Details Appointments None recorded. Lab None recorded. Referral None recorded. Procedures None recorded. Surgeries None recorded. Imaging None recorded. Medication Orders triamcinolo ne acetonide 0.1 % topical cream 2022 023 [facility]/Pharmacy #[id number], [address] [place], [address], 15:03:34 Patient TargetsNo targets recorded. Patient InstructionsNo instructions recorded. Reason for Referral None Reported. Procedures Surgical History Date Name Laterality Status Provider Name and Address Organization Details Recorded Time excision of bilateral breasts completed PHIL Mcbride [address], [place], [address], [place] [facility] 08/30/2022 14:48:21 Imaging Results None recorded. Procedure [...] Social History Question Answer Notes LastModified by [facility] Details LastModified Time Tobacco Smoking Status Former Smoker PHIL Mcbride [address], [place], [address], [place] [facility] 08/30/2022 14:47:30 Do You Have An Advance Directive? Yes [email or web address] Information not available 08/30/2022 What Is Your Code Status? DNR [email or web address] Information not available 08/30/2022 Excessive Alcohol Or Drug Use No [email or web address] Information not available 08/30/2022 Does This Patient Have A PCP? Yes [email or web address] Information not available 08/30/2022 Has The Patient Seen Their PCP In The Past 6 Months? Yes [email or web address] Information not available 08/30/2022 Is This Patient In Hospice? No [email or web address] Information not available 08/30/2022 Sex: Unknown Functional Status Question Answer Note LastModified by [facility] Details LastModified Time Do you use any illicit or recreational drugs? No Information not available 08/30/2022 What is your level of alcohol consumption? None Information not available 08/30/2022 Mental Status None recorded. Family History Relationship Description Onset Age of this Age Resolved Age Notes LastModified by Organization Details LastModified Time Father Coronary arterioscler osis [email or web address] Not available 08/30 14:45:38 Medical History Condition Response Diabetes Y Coronary Artery Disease N CHF N Parkinson's Disease N Cancer Y Dementia N Stroke N COPD N Depression N Hypothyroidism N Asthma N High Cholesterol Y Rheumatoid Arthritis N Pulmonary Embolism N Hypertension Y A-fib N Osteoporosis N Kidney Disease Y Gynecological HistoryNo gynecological history recorded. Obstetrics History GPAL:G 0 P 0 0 0 0 Past Encounters Encounter ID Performer Location Encounter Start Date Encounter Closed Date Diagnosis/Indication Diagnosis SNOMED-CT Code Diagnosis ICD10 Code Diagnosis Note [id number] [facility] [address] [place] [facility] [place] [address] 08/30/2022 14:38:44 09/01/2022 19:29:15 Peripheral edema 507842244 R60.9 Atopic dermatitis 425505 01 L20.9 Health Concerns Section Related Observation LastModified by Organization Detai ls LastModified Time None Recorded Concern Status LastModified by Organization Details LastModified Time None Recorded Advance Directives Directive Y: Payers Insurance Date Sequence Insurance Name Policy Number Policy Armirez Covered Member ID Ramirez Member ID Guarantor Name 09/23/2022 2 [place] [id number] Jing Cadden [id number] Jing Cadden 08/30/2022 2 [place] [id number] Jing Cadden [id number] Jing Cadden 08/30/2022 2 [place] [id number] Jing Cadden [id number] Jing Cadden 08/30/2022 2 [place] [id number] Jing Cadden [id number] Jing Cadden 09/23/2022 1 [place]IC[place] B-[place] [employer] Jing A Cadden [id number] Jing Cadden 08/29/2022 1 *SELF PAY* Ijng Cadden [id number] Jing Cadden Notes Date Note Type Note [...] results yet. PHIL Mcbride [address], [place], [address], [place] [facility] 08/30/2022 15:33:18 OBGyn Episode No OBEpisode recorded.
[2025-03-07 17:41] LABS: Appearance Urine Clear; Glucose Urine UA Negative (Negative); PH 7.0 (5.0-9.0); Specific Gravity - Urine 1.010 (1.005-1.025); UMIC TRIGGER UA YES
== END 2025-03-07 16:47 | disposition home or self-care (01) ==
LOC: HO.MMNH2L 16:46
PROVIDERS: Visit Provider Nurse Practitioner Family
DX: E11.9 Type 2 diabetes mellitus without complications (principal); I49.9 Cardiac arrhythmia, unspecified; I10 Essential (primary) hypertension
CPT/HCPCS: 81001; 81003; 87086; 87088

== ENCOUNTER 2025-03-11 05:51 | Outpatient (REF) | payer MEDICARE, SELFPAY ==
--- OUTSIDE RECORDS SUMMARY | 2025-03-11 05:54 | XMS_ITS | Encounter Summary ---
Author Organization [facility], Address [address] [place] [address] Phone Care Team Providers Care Analytical Research Program Manager Name Role Phone Villa Jiang MD Primary Care Provider Unav ailable Encounter Details Date Type Department Care Team (Late st Contact Info) Description 04/28/2024 Documentation Only [facility], [address] [place] [address] Felicitas Medellin [address] [place] [phone] Social History Tobacco Use Types Packs/Day Years [...] on filedocumented in this encounter Care Teams Analytical Research Program Manager Relationship Specialty Start Date End Date Villa Jiang MD [address] [place] [address] PCP - General Internal Medicine 03/19/23 documented as of this encounter
--- OUTSIDE RECORDS SUMMARY | 2025-03-11 05:54 | XMS_ITS | Data Portability ---
Author Organization [place] - [facility] Address [address] [place] [address] Care Team Providers Care Obedience Trainer Name Role Phone TAYLOR FAJARDO Primary Care Provider [phone] Assessment Encounter Date Assessment Date Assessment LastModified [...] ago. I do not have access to [facility] to review labs and prior records. [...] care of this patient according to [facility]'s infection prevention protocols. Not available 08/30/2022 15:33:04 Plan of Treatment Reminders Order Date Submit Date Provider Last Modified By Organization Details Last Modified Time Details Appointments None recorded. Lab None recorded. Referral None recorded. Procedures None recorded. Surgeries None recorded. Imaging None recorded. Medication Orders triamcinolo ne acetonide 0.1 % topical cream 2022 023 [facility]/Pharmacy #[id number], [address] [place], [address], 15:03:34 Patient TargetsNo targets recorded. Patient InstructionsNo instructions recorded. Reason for Referral None Reported. Procedures Surgical History Date Name Laterality Status Provider Name and Address Organization Details Recorded Time excision of bilateral breasts completed PHIL Mcbride [address], [place], [address], [place] [facility] 08/30/2022 14:48:21 Imaging Results None recorded. Procedure [...] Social History Question Answer Notes LastModified by [facility] Details LastModified Time Tobacco Smoking Status Former Smoker PHIL Mcbride [address], [place], [address], [place] [facility] 08/30/2022 14:47:30 Do You Have An Advance Directive? Yes [email or web address] Information not available 08/30/2022 What Is Your Code Status? DNR [email or web address] Information not available 08/30/2022 Excessive Alcohol Or Drug Use No [email or web address] Information not available 08/30/2022 Does This Patient Have A PCP? Yes [email or web address] Information not available 08/30/2022 Has The Patient Seen Their PCP In The Past 6 Months? Yes [email or web address] Information not available 08/30/2022 Is This Patient In Hospice? No [email or web address] Information not available 08/30/2022 Sex: Unknown Functional Status Question Answer Note LastModified by [facility] Details LastModified Time Do you use any illicit or recreational drugs? No [email or web address] Information not available 08/30/2022 What is your level of alcohol consumption? None [email or web address] Information not available 08/30/2022 Mental Status None recorded. Family History Relationship Description Onset Age of this Age Resolved Age Notes LastModified by Organization Details LastModified Time Father Coronary arterioscler osis [email or web address] Not available 08/30 14:45:38 Medical History Condition Response Diabetes Y Coronary Artery Disease N CHF N Parkinson's Disease N Cancer Y Dementia N Stroke N Hypothyroidism N Depression N COPD N Asthma N High Cholesterol Y Rheumatoid Arthritis N Pulmonary Embolism N Hypertension Y A-fib N Osteoporosis N Kidney Disease Y Gynecological HistoryNo gynecological history recorded. Obstetrics History GPAL:G 0 P 0 0 0 0 Past Encounters Encounter ID Performer Location Encounter Start Date Encounter Closed Date Diagnosis/Indication Diagnosis SNOMED-CT Code Diagnosis ICD10 Code Diagnosis Note [id number] [facility] [address] [place] [address] 08/30/2022 14:38:44 09/01/2022 19:29:15 Peripheral edema 476670362 R60.9 Atopic dermatitis 396129 01 L20.9 Health Concerns Section Related Observation LastModified by Organization Detai ls LastModified Time None Recorded Concern Status LastModified by Organization Details LastModified Time None Recorded Advance Directives Directive Y: Payers Insurance Date Sequence Insurance Name Policy Number Policy Ramirez Covered Member ID Ramirez Member ID Guarantor Name 09/23/2022 2 [place] [id number] Jing Cadden [id number] Jing Cadden 08/30/2022 2 [place] [id number] Jing Cadden [id number] Jing Cadden 08/30/2022 2 [place] [id number] Jing Cadden [id number] Jing Cadden 08/30/2022 2 [place] [id number] Jing Cadden [id number] Jing Cadden 09/23/2022 1 [place]IC[place] [employer] Jing A Cadden [id number] Jing Cadden 08/29/2022 1 *SELF PAY* Jing Cadden [id number] Jing Cadden Notes Date Note Type Note [...] results yet. PHIL Mcbride [address], [place], [address], [place] [facility] 08/30/2022 15:33:18 OBGyn Episode No OBEpisode recorded.
[2025-03-11 06:31] LABS: Hemoglobin A1C 112.2383 umol/L; Total Hemoglobin (HGBA1C) 2502.2344 umol/L
== END 2025-03-11 05:52 | disposition home or self-care (01) ==
LOC: HO.MMNH2L 05:51
PROVIDERS: Visit Provider Student in an Organized Health Care Education/Training Program
DX: E11.9 Type 2 diabetes mellitus without complications (principal)
CPT/HCPCS: 36415; 83036

== ENCOUNTER 2025-03-17 05:59 | Outpatient (REF) | payer MEDICARE, SELFPAY ==
[2025-03-17 06:01] LABS: MANUAL DIFF FLAG NO
--- OUTSIDE RECORDS SUMMARY | 2025-03-17 06:01 | XMS_ITS | Encounter Summary ---
Author Organization [facility], Address [address] [place] [address] Phone Care Team Providers Care Flight Attendant Ramp Name Role Phone Villa Jiang MD Primary Care Provider Unav ailable Encounter Details Date Type Department Care Team (Late st Contact Info) Description 04/28/2024 Documentation Only [facility], [address] [place] [address] Felicitas Medellin [address] [place] [phone] Social History Tobacco Use Types Packs/Day Years [...] on filedocumented in this encounter Care Teams Flight Attendant Ramp Relationship Specialty Start Date End Date Villa Jiang MD [address] [place] [address] PCP - General Internal Medicine 03/19/23 documented as of this encounter
--- OUTSIDE RECORDS SUMMARY | 2025-03-17 06:01 | XMS_ITS | Data Portability ---
Author Organization [place] - [facility] Address [address] [place] [address] Care Team Providers Care Foam Rubber Mixer Name Role Phone TAYLOR FAJARDO Primary Care [...] ago. I do not have access to [facility] to review labs and prior records. Vital [...] of this patient according to [facility]'s infection prevention protocols. [email or web address] Not available 08/30/2022 15:33:04 Plan of Treatment Reminders Order Date Submit Date Provider Last Modified By Organization Details Last Modified Time Details Appointments None recorded. Lab None recorded. Referral None recorded. Procedures None recorded. Surgeries None recorded. Imaging None recorded. Medication Orders triamcinolo ne acetonide 0.1 % topical cream 2022 023 [facility]/Pharmacy #[id number], [address] [place], [address], 15:03:34 Patient TargetsNo targets recorded. Patient InstructionsNo instructions recorded. Reason for Referral None Reported. Procedures Surgical History Date Name Laterality Status Provider Name and Address Organization Details Recorded Time excision of bilateral breasts completed PHIL Mcbride [address], [place], [address], [place] [facility] 08/30/2022 14:48:21 Imaging Results None recorded. [...] Social History Question Answer Notes LastModified by [employer] Details LastModified Time Tobacco Smoking Status Former Smoker PHIL Mcbride [address], [place], [address], [place] [facility] 08/30/2022 14:47:30 Do You Have An Advance Directive? Yes [email or web address] Information not available 08/30/2022 What Is Your Code Status? DNR [email or web address] Information not available 08/30/2022 Excessive Alcohol Or Drug Use No [email or web address] Information not available 08/30/2022 Does This Patient Have A PCP? Yes [email or web address] Information not available 08/30/2022 Has The Patient Seen Their PCP In The Past 6 Months? Yes [email or web address] Information not available 08/30/2022 Is This Patient In Hospice? No Information not available 08/30/2022 Sex: Unknown Functional Status Question Answer Note LastModified by [facility] Details LastModified Time Do you use any illicit or recreational drugs? No [email or web address] Information not available 08/30/2022 What is your level of alcohol consumption? None [email or web address] Information not available 08/30/2022 Mental Status None recorded. Family History Relationship Description Onset Age of this Age Resolved Age Notes LastModified by Organization Details LastModified Time Father Coronary arterioscler osis [email or web address] Not available 08/30 14:45:38 Medical History Condition Response Diabetes Y Coronary Artery Disease N CHF N Parkinson's Disease N Cancer Y Stroke N Dementia N Asthma N Hypothyroidism N Depression N COPD N High Cholesterol Y Rheumatoid Arthritis N Pulmonary Embolism N Hypertension Y A-fib N Osteoporosis N Kidney Disease Y Gynecological HistoryNo gynecological history recorded. Obstetrics History GPAL:G 0 P 0 0 0 0 Past Encounters Encounter ID Performer Location Encounter Start Date Encounter Closed Date Diagnosis/Indication Diagnosis SNOMED-CT Code Diagnosis ICD10 Code Diagnosis Note [id number] [facility] [address] [place] [facility] [place] [address] 08/30/2022 14:38:44 09/01/2022 19:29:15 Peripheral edema 813676513 R60.9 Atopic dermatitis 007525 01 L20.9 Health Concerns Section Related Observation LastModified by Organization Detai ls LastModified Time None Recorded Concern Status LastModified by Organization Details LastModified Time None Recorded Advance Directives Directive Y: Payers Insurance Date Sequence Insurance Name Policy Number Policy Ramirez Covered Member ID Ramirez Member ID Guarantor Name 09/23/2022 2 [place] [id number] Jing Cadden [id number] Jing Cadden 08/30/2022 2 [place] [id number] Jing Cadden [id number] Jing Cadden 08/30/2022 2 [place] [id number] Jing Cadden [id number] Jing Cadden 08/30/2022 2 [place] [id number] Jing Cadden [id number] Jing Cadden 09/23/2022 1 [place]IC[place] [employer] Jing A Cadden [id number] Jing Cadden 08/29/2022 1 *SELF PAY* Jing Cadden [id number] Jing Cadden Notes Date Note Type Note [...] results yet. PHIL Mcbride [address], [place], [address], [place] [facility] 08/30/2022 15:33:18 OBGyn Episode No OBEpisode recorded.
[2025-03-17 06:53] LABS: Hematocrit 31.0 % (37.0-47.0); Hemoglobin 9.7 g/dl (12.0-16.0); Imm Gran Abs Auto 0.04 X10*3/uL (0.00-0.03); Imm Gran Pct Auto 0.5 % (0.0-0.4); Lymphocytes Absolute Auto 1.9 X10*3/uL (1.2-4.9); Mean Corpuscular HGB Conc 31.3 g/dl (31.0-35.0); Mean Corpuscular Hemoglobin 28.4 pg (27.0-33.0); Mean Corpuscular Volume 90.9 fL (80.0-98.0); NRBC Abs Auto 0.000 X10*3/uL (0.0-0.012); NRBC Pct Auto 0.0 /100WBC (0.0-0.2); Platelet Count 246 X10*3/uL (160-400); Red Blood Count 3.41 X10*6/uL (4.20-5.50); White Blood Count 8.2 X10*3/uL (4.8-10.8)
[2025-03-17 07:18] LABS: Hemoglobin A1C 111.2435 umol/L; Total Hemoglobin (HGBA1C) 2538.6632 umol/L
[2025-03-17 07:34] LABS: Procalcitonin 0.08 ng/mL
== END 2025-03-17 06:00 | disposition home or self-care (01) ==
LOC: HO.MMNH2L 05:59
PROVIDERS: Visit Provider Student in an Organized Health Care Education/Training Program
DX: I12.9 Hypertensive chronic kidney disease with stage 1 through stage 4 chronic kidney disease, or unspecified chronic kidney disease (principal); E11.22 Type 2 diabetes mellitus with diabetic chronic kidney disease; N18.9 Chronic kidney disease, unspecified
CPT/HCPCS: 36415; 83036; 84145; 85025

== ENCOUNTER 2025-03-20 16:03 | Outpatient (REF) | payer MEDICARE, SELFPAY ==
--- OUTSIDE RECORDS SUMMARY | 2025-03-20 16:07 | XMS_ITS | Data Portability ---
Author Organization [place] - [facility] Address [address] [place] [phone] Care Team Providers Care Tour Bus Driver/Guide Name Role Phone TAYLOR FAJARDO Primary Care [...] ago. I do not have access to [facility] to review labs and prior records. [...] of this patient according to [facility]'s infection prevention protocols. [email or web address] Not available 08/30/2022 15:33:04 Plan of Treatment Reminders Order Date Submit Date Provider Last Modified By Organization Details Last Modified Time Details Appointments None recorded. Lab None recorded. Referral None recorded. Procedures None recorded. Surgeries None recorded. Imaging None recorded. Medication Orders triamcinolo ne acetonide 0.1 % topical cream 2022 023 [facility]/Pharmacy #[id number], [address] [place], [address], 15:03:34 Patient TargetsNo targets recorded. Patient InstructionsNo instructions recorded. Reason for Referral None Reported. Procedures Surgical History Date Name Laterality Status Provider Name and Address Organization Details Recorded Time excision of bilateral breasts completed PHIL Mcbride [address], [place], [address], [place] [facility] 08/30/[facility]22 14:48:21 Imaging Results None recorded. Procedure [...] Not Available Not Available Not Available cholecalcif erina (vitamin D3) 25 mcg (1,000 unit) capsule [...] Social History Question Answer Notes LastModified by [employer] Details LastModified Time Tobacco Smoking Status Former Smoker PHIL Mcbride [address], [place], [address], [place] [facility] 08/30/2022 14:47:30 Do You Have An Advance Directive? Yes [email or web address] Information not available 08/30/2022 What Is Your Code Status? DNR [email or web address] Information not available 08/30/2022 Excessive Alcohol Or Drug Use No Information not available 08/30/2022 Does This Patient Have A PCP? Yes [email or web address] Information not available 08/30/2022 Has The Patient Seen Their PCP In The Past 6 Months? Yes [email or web address] Information not available 08/30/2022 Is This Patient In Hospice? No [email or web address] Information not available 08/30/2022 Sex: Unknown Functional Status Question Answer Note LastModified by [employer] Details LastModified Time Do you use any illicit or recreational drugs? No [email or web address] Information not available 08/30/2022 What is your level of alcohol consumption? None [email or web address] Information not available 08/30/2022 Mental Status None recorded. Family History Relationship Description Onset Age of this Age Resolved Age Notes LastModified by Organization Details LastModified Time Father Coronary arterioscler osis [email or web address] Not available 08/30 14:45:38 Medical History Condition Response Coronary Artery Disease N Depression N COPD N Hypothyroidism N A-fib N Cancer Y Stroke N High Cholesterol Y Rheumatoid Arthritis N Kidney Disease Y Parkinson's Disease N Diabetes Y CHF N Dementia N Asthma N Pulmonary Embolism N Hypertension Y Osteoporosis N Gynecological HistoryNo gynecological history recorded. Obstetrics History GPAL:G 0 P 0 0 0 0 Past Encounters Encounter ID Performer Location Encounter Start Date Encounter Closed Date Diagnosis/Indication Diagnosis SNOMED-CT Code Diagnosis ICD10 Code Diagnosis Note [id number] [facility] [address] [place] [facility] [place] [address] 08/30/2022 14:38:44 09/01/2022 19:29:15 Peripheral edema 825106012 R60.9 Atopic dermatitis 894437 01 L20.9 Health Concerns Section Related Observation LastModified by Organization Detai ls LastModified Time None Recorded Concern Status LastModified by Organization Details LastModified Time None Recorded Advance Directives Directive Y: Payers Insurance Date Sequence Insurance Name Policy Number Policy Ramirez Covered Member ID Ramirez Member ID Guarantor Name 09/23/2022 2 [place] [id number] Jing Cadden [id number] Jing Cadden 08/30/2022 2 [place] [id number] Jing Cadden [id number] Jing Cadden 08/30/2022 2 [place] [id number] Jing Cadden [id number] Jing Cadden 08/30/2022 2 [place] [id number] Jing Cadden [id number] Jing Cadden 09/23/2022 1 [place] [employer] SERVICES Jing A Cadden [id number] Jing Cadden 08/29/2022 1 *SELF PAY* Jing Cadden [id number] Jing Cadden Notes Date Note Type Note [...] results yet. PHIL Mcbride [address], [place], [address], [place] [facility] 08/30/2022 15:33:18 OBGyn Episode No OBEpisode recorded.
--- OUTSIDE RECORDS SUMMARY | 2025-03-20 16:07 | XMS_ITS | Encounter Summary ---
Author Organization [facility], Address [address] [place] [address] Phone Care Team Providers Care Life Skills Educator Name Role Phone Villa Jiang MD Primary Care Provider Unav ailable Encounter Details Date Type Department Care Team (Late st Contact Info) Description 04/28/2024 Documentation Only [facility], [address] [place] [address] Felicitas Medellin [address] [place] [phone] Social History Tobacco Use Types Packs/Day Years [...] on filedocumented in this encounter Care Teams Life Skills Educator Relationship Specialty Start Date End Date Villa Jiang MD [address] [place] [address] PCP - General Internal Medicine 03/19/23 documented as of this encounter
[2025-03-20 16:17] LABS: Appearance Urine Cloudy; Glucose Urine UA Negative (Negative); PH 7.5 (5.0-9.0); Specific Gravity - Urine 1.010 (1.005-1.025); UMIC TRIGGER UA YES
== END 2025-03-20 16:04 | disposition home or self-care (01) ==
LOC: HO.MMNH2L 16:03
PROVIDERS: Visit Provider Student in an Organized Health Care Education/Training Program
DX: N18.30 Chronic kidney disease, stage 3 unspecified (principal); R82.90 Unspecified abnormal findings in urine
CPT/HCPCS: 81001; 87086; 87186

== ENCOUNTER 2025-04-15 16:06 | Outpatient (REF) | payer MEDICARE, SELFPAY ==
--- OUTSIDE RECORDS SUMMARY | 2025-04-15 16:11 | XMS_ITS | Encounter Summary ---
Author Organization [facility], Address [address] [place] [address] Phone Care Team Providers Care Wealth Management Consultant Name Role Phone Villa Jiang MD Primary Care Provider Unav ailable Encounter Details Date Type Department Care Team (Late st Contact Info) Description 04/28/2024 Documentation Only [facility], [address] [place] [address] Felicitas Medellin [address] [place] [phone] Social History Tobacco Use Types Packs/Day Years [...] on filedocumented in this encounter Care Teams Wealth Management Consultant Relationship Specialty Start Date End Date Villa Jiang MD [address] [place] [address] PCP - General Internal Medicine 03/19/23 documented as of this encounter
[2025-04-18 07:38] LABS: Appearance Urine Hazy; Glucose Urine UA Negative (Negative); PH 6.0 (5.0-9.0); Specific Gravity - Urine 1.015 (1.005-1.025)
[2025-04-18 07:39] LABS: UMIC TRIGGER UA YES
== END 2025-04-15 16:07 | disposition home or self-care (01) ==
LOC: HO.MMNH3L 16:06
PROVIDERS: Visit Provider Family Medicine
DX: N18.30 Chronic kidney disease, stage 3 unspecified (principal)
CPT/HCPCS: 81001; 87086; 87088; 87186

== ENCOUNTER 2025-05-12 11:35 | Outpatient (REF) | payer MEDICARE, SELFPAY ==
[2025-05-12 12:24] LABS: Appearance Urine Turbid; Glucose Urine UA Negative (Negative); PH 6.5 (5.0-9.0); Specific Gravity - Urine 1.015 (1.005-1.025); UMIC TRIGGER UA YES
--- OUTSIDE RECORDS SUMMARY | 2025-05-12 13:56 | XMS_ITS | Encounter Summary ---
Author Organization [facility], Address [address] [place] [address] Phone Care Team Providers Care Platinum Smith Name Role Phone Villa Jiang MD Primary Care Provider Unav ailable Encounter Details Date Type Department Care Team (Late st Contact Info) Description 04/28/2024 Documentation Only [facility], [address] [place] [address] Felicitas Medellin [address] [place] [phone] Social History Tobacco Use Types Packs/Day Years [...] on filedocumented in this encounter Care Teams Platinum Smith Relationship Specialty Start Date End Date Villa Jiang MD [address] [place] [address] PCP - General Internal Medicine 03/19/23 documented as of this encounter
--- OUTSIDE RECORDS SUMMARY | 2025-05-12 13:56 | XMS_ITS | Encounter Summary ---
Author Organization [facility], Address [address] [place] [address] Phone Care Team Providers Care Quill Stripper Name Role Phone Villa Jiang MD Primary Care Provider Unav ailable Encounter Details Date Type Department Care Team (Late st Contact Info) Description 10/07/2023 Documentation Only [facility], [address] [place] [address] Felicitas Medellin [address] [place] [phone] Social History Tobacco Use Types Packs/Day Years [...] on filedocumented in this encounter Care Teams Quill Stripper Relationship Specialty Start Date End Date Villa Jiang MD [address] [place] [address] PCP - General Internal Medicine 03/19/23 documented as of this encounter
--- OUTSIDE RECORDS SUMMARY | 2025-05-12 13:56 | XMS_ITS | Encounter Summary ---
Author Organization [facility], Address [address] [place] [address] Phone Care Team Providers Care Home Sales Service Professional Name Role Phone Villa Jiang MD Primary Care Provider Unav ailable Encounter Details Date Type Department Care Team (Late st Contact Info) Description 04/28/2024 Documentation Only [facility], [address] [place] [address] Felicitas Medellin [address] [place] [phone] Social History Tobacco Use Types Packs/Day Years [...] on filedocumented in this encounter Care Teams Home Sales Service Professional Relationship Specialty Start Date End Date Villa Jiang MD [address] [place] [address] PCP - General Internal Medicine 03/19/23 documented as of this encounter
--- OUTSIDE RECORDS SUMMARY | 2025-05-12 13:56 | XMS_ITS | Clinical Summary ---
Author Organization [facility], Address [address] [place] [address] [place] [address] Phone Care Team Providers Care Forestry Fire Aide Name Role Phone Villa Jiang MD Primary [...] time each day 90 tablet 3 12/03/2023 Active Active Problems Problem Noted Date Diagnosed Date Stage 3b chronic kidney disease 10/07/2023 Type 2 diabetes mellitus 10/06/2023 Pure hypercholesterolemia 10/06/2023 Hyperlipidemia 10/06/2023 Hypertension 01/09/2022 Immunizations Immunization Administration Dates Next Due Influenza (IM) Preservative [...] Diabetes: Visual Foot Exam 01/09/2022 Influenza Vaccine (#1) 2025 , 06/14/2021, 05/26/2019, Additional history exists Pneumococcal Vaccine: 50+ Years Completed 01/11/2016, 11/19/2012 Hepatitis B Vaccine Aged Out No longe r eligible based on patient's age to complete this topic Insurance Medicare [facility] Care Teams Forestry Fire Aide Relationship Specialty Start Date End Date Villa Jiang MD [address] [place] [address] PCP - General Internal Medicine 03/19/23
--- OUTSIDE RECORDS SUMMARY | 2025-05-12 13:56 | XMS_ITS | Encounter Summary ---
Author Organization [facility] [place], Address [address] [place] [address] Phone Care Team Providers Care Storage Consultant Name Role Phone Villa Jiang MD Primary Care Provider Unav ailable Encounter Details Date Type Department Care Team (Late st Contact Info) Description 04/28/2024 Documentation Only [facility], [address] [place] [address] Felicitas Medellin [address] [place] [phone] Social History Tobacco Use Types Packs/Day Years [...] on filedocumented in this encounter Care Teams Storage Consultant Relationship Specialty Start Date End Date Villa Jiang MD [address] [place] [address] PCP - General Internal Medicine 03/19/23 documented as of this encounter
--- OUTSIDE RECORDS SUMMARY | 2025-05-12 13:56 | XMS_ITS | Encounter Summary ---
Author Organization [facility] [place], Address [address] [place] [address] Phone Care Team Providers Care Landscape Horticulture Instructor Name Role Phone Villa Jiang MD Primary Care Provider Unav ailable Encounter Details Date Type Department Care Team (Late st Contact Info) Description 04/28/2024 Documentation Only [facility], [address] [place] [address] Felicitas Medellin [address] [place] [phone] Social History Tobacco Use Types Packs/Day Years [...] on filedocumented in this encounter Care Teams Landscape Horticulture Instructor Relationship Specialty Start Date End Date Villa Jiang MD [address] [place] [address] PCP - General Internal Medicine 03/19/23 documented as of this encounter
--- OUTSIDE RECORDS SUMMARY | 2025-05-12 13:56 | XMS_ITS | Encounter Summary ---
Author Organization [facility] [place], Address [address] [place] [address] Phone Care Team Providers Care Hospitality Coordinator Name Role Phone Villa iJang MD Primary Care Provider Unav ailable Encounter Details Date Type Department Care Team (Late st Contact Info) Description 04/28/2024 Documentation Only [facility], [address] [place] [address] Felicitas Medellin [address] [place] [phone] Social History Tobacco Use Types Packs/Day Years [...] on filedocumented in this encounter Care Teams Hospitality Coordinator Relationship Specialty Start Date End Date Villa Jiang MD [address] [place] [address] PCP - General Internal Medicine 03/19/23 documented as of this encounter
--- OUTSIDE RECORDS SUMMARY | 2025-05-12 13:56 | XMS_ITS | Encounter Summary ---
Author Organization [facility] [place], Address [address] [place] [address] Phone Care Team Providers Care Scoreboard Operator Name Role Phone Villa Jiang MD Primary Care Provider Unav ailable Encounter Details Date Type Department Care Team (Late st Contact Info) Description 04/28/2024 Documentation Only [facility], [address] [place] [address] Felicitas Medellin [address] [place] [phone] Social History Tobacco Use Types Packs/Day Years [...] on filedocumented in this encounter Care Teams Scoreboard Operator Relationship Specialty Start Date End Date Villa Jiang MD [address] [place] [address] PCP - General Internal Medicine 03/19/23 documented as of this encounter
--- OUTSIDE RECORDS SUMMARY | 2025-05-12 13:56 | XMS_ITS | Encounter Summary ---
Author Organization [facility] [place], Address [address] [place] [address] Phone Care Team Providers Care Newspaper Delivery Driver Name Role Phone Villa Jiang MD Primary Care Provider Unav ailable Encounter Details Date Type Department Care Team (Late st Contact Info) Description 04/28/2024 Documentation Only [facility] [place], [address] [place] [address] Felicitas Medellin [address] [place] [phone] Social History Tobacco Use Types Packs/Day Years [...] on filedocumented in this encounter Care Teams Newspaper Delivery Driver Relationship Specialty Start Date End Date Villa Jiang MD [address] [place] [address] PCP - General Internal Medicine 03/19/23 documented as of this encounter
--- OUTSIDE RECORDS SUMMARY | 2025-05-12 13:56 | XMS_ITS | Encounter Summary ---
Author Organization [facility] [place], Address [address] [place] [address] Phone Care Team Providers Care Doffer Name Role Phone Villa Jiang MD Primary Care Provider Unav ailable Encounter Details Date Type Department Care Team (Late st Contact Info) Description 12/10/2023 Documentation Only [facility] [place], [address] [place] [address] Felicitas Medellin [address] [place] [phone] Social History Tobacco Use Types Packs/Day Years [...] on filedocumented in this encounter Care Teams Doffer Relationship Specialty Start Date End Date Villa Jiang MD [address] [place] [address] PCP - General Internal Medicine 03/19/23 documented as of this encounter
--- OUTSIDE RECORDS SUMMARY | 2025-05-12 13:57 | XMS_ITS | Encounter Summary ---
Author Organization [facility] [place], Address [address] [place] [address] Phone Care Team Providers Care Veterans Service Representative Name Role Phone Villa Jiang MD Primary Care Provider Unav ailable Encounter Details Date Type Department Care Team (Late st Contact Info) Description 10/07/2023 Documentation Only [facility] [place], [address] [place] [address] Felicitas Medellin [address] [place] [phone] Social History Tobacco Use Types Packs/Day Years [...] on filedocumented in this encounter Care Teams Veterans Service Representative Relationship Specialty Start Date End Date Villa Jiang MD [address] [place] [address] PCP - General Internal Medicine 03/19/23 documented as of this encounter
--- OUTSIDE RECORDS SUMMARY | 2025-05-12 13:57 | XMS_ITS | Encounter Summary ---
Author Organization [facility] [place], Address [address] [place] [address] Phone Care Team Providers Care Parts Driver Name Role Phone Villa Jiang MD Primary Care Provider Unav ailable Encounter Details Date Type Department Care Team (Late st Contact Info) Description 05/03/2022 Documentation Only [facility], [address] [place] [address] Michael Regan [place] [address] [place] [phone] Social History Tobacco Use Types Packs/Day Years [...] on filedocumented in this encounter Care Teams Parts Driver Relationship Specialty Start Date End Date Villa Jiang MD [address] [place] [address] PCP - General Internal Medicine 03/19/23 documented as of this encounter
== END 2025-05-12 11:36 | disposition home or self-care (01) ==
LOC: HO.MMNH3L 11:35
PROVIDERS: Visit Provider Family Medicine
DX: N39.0 Urinary tract infection, site not specified (principal)
CPT/HCPCS: 81001; 81003; 87086; 87088; 87186

== ENCOUNTER 2025-06-21 06:05 | Outpatient (REF) | payer MEDICARE, SELFPAY ==
[2025-06-21 06:07] LABS: MANUAL DIFF FLAG NO
--- OUTSIDE RECORDS SUMMARY | 2025-06-21 06:07 | XMS_ITS | Data Portability ---
Author Organization [facility], Main Office Address [address] [address] [address] [place] [address] Care Team Providers Care Physician Assistant Name Role Phone ERIC BUCHANAN 1ST FLOOR OTHER AMEENA SHRESTHA Primary Care Provider [phone] Assessment Encounter Date Assessment Date Assessment LastModified [...] Address Organization Details Recorded Time Essential hypertension 49283929 Active [address], [address], [place], [address], [facility] 4 18:08:53 Closed fracture of hip 495599222 Active 2023 SH[address] PRAKASH [address], [address], [place], [address], [facility] 4 18:09:20 Hyperlipidemia 76119502 Active 2023 [address]ASH [address], [address], [place], [address], [facility] 4 18:09:33 Bipolar disorder 43237722 Active 2023 SHAWNA PRAKASH [address], [address], [place], [address], [facility] 4 18:09:40 Cognitive disorder 325118389 Active 2023 SHAWNA PRAKASH [address], [address], [place], [address], [facility] 4 18:09:47 Osteoarthritis 848188179 Active 2023 SHAWNA PRAKASH [address], [address], [place], [address], [facility] 4 18:10:03 Acute non-ST segment elevation myocardial infarction 426522090 Active 2023 SHAWNA PRAKASH [address], [address], [place], [address], [facility] 4 18:11:00 Gastroesophage al reflux disease 201932177 Active 2023 SHAWNA PRAKASH [address], [address], [place], [place], [address], [facility] 4 18:11:31 Constipation 32603504 Active 2023 SHAWNA PRAKASH [address], [address], [place], [address], [facility] 4 18:53:26 Pulmonary embolism 26131623 Active 2023 SHAWNA PRAKASH [address], [address], [place], [address], [facility] 4 18:53:38 Deep venous thrombosis of lower extremity 552024523 Active 2023 SHAWNA PRAKASH [address], [address], [place], [address], [facility] 4 18:53:58 Anticoagulant therapy Active 2023 SHAWNA PRAKASH [address], [place], [address], [facility] 4 18:55:47 Closed fracture of hip 532390804 Active 2023 Kinza Aguilar MD [address] [facility], [address], [place], [address], [facility] 4 18:40:28 Problem Notes None recorded. Medical [...] Updated DateTime 4 160.02 cm 30.6 kg/m2 66200.7 6 g 90 /min 18 /min 97.9 [degF] 92 % 92 % 124/72 mm[Hg] Kinza Aguilar MD [address] [facility], [address], [place], [address], [facility] 4 18:48:48 Date Recorded Body height Body temperature Respiratory rate Heart rate Oxygen saturation Oxygen saturation in Arterial blood by Pulse oximetry Systolic And Diastolic Provider Name and Address Organization Details Last Updated DateTime 4 160.02 cm 97.9 [degF] 18 /min 72 /min 96 % 96 % 101/59 mm[Hg] SHAWNA PRAKASH [address] [facility], [address], [place], [address], [facility] 4 20:20:42 Date Recorded Body height Heart rate Respiratory rate Body temperature Oxygen saturation Oxygen saturation in Arterial blood by Pulse oximetry Systolic And Diastolic Provider Name and Address Organization Details Last Updated DateTime 4 160.02 cm 82 /min 18 /min 97.9 [degF] 95 % 95 % 108/61 mm[Hg] SHAWNA PRAKASH [address] [facility], [address], [place], [address], [facility] 4 18:13:08 Date Recorded Body height Provider Name an d Address Organization Details Last Updated DateTime 12/26/2023 160.02 cm SHAWNA PRAKASH [address] [facility], [address], [place], [address], [facility] 12/26/2023 15:43:49 Social History Question Answer Notes LastModified by Organizat ion Details LastModified Time Tobacco Smoking Status Former Smoker quit 2012 Kinza Aguilar MD [address] [facility], [address], [place], [address], [facility] 12/11/2023 18:53:26 Do You Have An Advance Directive? Yes Information not available 12/11/2023 What Is Your Code Status? DNR/DNI Information not available 12/11/2023 Where Do You Live? Condo Information not available 12/11/2023 Legal Guardian? No david Informati on not available 12/11/2023 Do You Have A Medical Power Of Senior Patrol Agent? Yes Information not available 12/11/2023 What Was [...] No Longer Smokes Information not available 12/11/2023 Sex: Unknown Functional Status Question Answer Note LastModified by Organization D etails LastModified Time Do you or have you ever used any other forms of tobacco or nicotine? No Information not available 12/11/2023 Mental Status None recorded. Family History Nothing Reported Notes:n/c Medical History No medical history recorded. Gynecological HistoryNo gynecological history recorded. Obstetrics History GPAL:G 0 P 0 0 0 0 Immunizations Vaccine Type Date Status Note Provider Nam e and Address Organization Details Recorded Time [facility]neum[facility] 13 [facility] 16:53:02 Pneumococcal conjugate PCV20, polysaccharide OPS195 conjugate, adjuvant, PF 3 completed Lori [facility] 12/10/2023 16:53:17 influenza, unspecified formulation 2 completed Lori [facility] 12/10/2023 16:53:32 influenza, unspecified formulation 3 completed Lori [facility] 12/10/2023 16:53:42 SARS-COV-2 (COVID-19) vaccine, UNSPECIFIED 1 completed Lorimele [facility] 12/10/2023 16:53:56 SARS-COV-2 (COVID-19) vaccine, UNSPECIFIED 1 completed Lorimele Stock [facility] 12/10/2023 16:54:05 SARS-COV-2 (COVID-19) vaccine, UNSPECIFIED 1 completed Lori [facility] 12/10/2023 16:54:12 SARS-COV-2 (COVID-19) vaccine, UNSPECIFIED 2 completed Lori [facility] 12/10/2023 16:54:19 SARS-COV-2 (COVID-19) vaccine, UNSPECIFIED 2 completed Lori [facility] 12/10/2023 16:54:27 SARS-COV-2 (COVID-19) vaccine, UNSPECIFIED 3 completed Lori [facility] 12/10/2023 16:54:35 zoster live 3 completed [facility] 12/10/2023 16:54:55 zoster recombinant 9 completed [facility] 12/10/2023 16:55:13 zoster recombinant 9 [facility] 12/10/2023 16:55:24 Past Encounters Encounter ID Performer Location Encounter Start Date Encounter Closed Date Diagnosis/Indication Diagnosis SNOMED-CT Code Diagnosis ICD10 Code Diagnosis IMO Codes Diagnosis Note [id number] SHAWNA PRAKASH [address] [place] [address] 12/10/2023 09:43:49 12/16/2023 11:19:07 Closed fracture of hip 975727106 S72.092A subcapital left femur neck fractures/ p left hemiarthro plastycont inue tramadol 25 mg dailytylen ol 650mg prnfollow up with orthoPT/OT eval and treat Anticoagulant therapy 18 0054075 Z79.01 recent hx of bilat Lower extremity DVT and PEcontinue eliquis 10 mg BID until 12/13 then 10 mg BIDmonitor for abnormal bruising or bleeding Bipolar disorder 1438564 4 F31.9 continue risperdal 25 mg ER IM Q14 dayscontin ue divalproex 500 mg ER dailynortr iptyline 10 mg dailymonit or for mood and behavior changes.ps ych prn Essential hypertension 50724658 I10 continue furosemide 20 mg daily and lisinopril 5 mgmonitor BP Hyperlipidemia 43155530 E78.5 continue simvastati n 20 mg daily Constipation 23542768 K5 9.00 continue miralax 17 gm daily and colace 100 mg dailymonit or bowel sounds Gastroesop hageal reflux disease 810157566 K21.9 protonix 20 mg dailymonit or for GI upset Osteoarthritis 083827593 M19.90 continue tramadol and tylenol prn. [id number] Kinza Aguilar MD [address] [place] [address] 12/11/2023 18:35:49 12/26/2023 15:12:27 Closed fracture of hip 910175551 S72.092D Recovering slowly.Nee ds PT/OT for strengthen ing, balance, gait training, safety and function.C ontinue fall precaution s.Monitor for safety.Con tinue tramadol 25 mg q 6 hrs prn and APAP 650 mg q 6 hrs prn.Monito r pain control and progress.F /U with ortho as planned. Bipolar disorder 4871859 4 F31.89 Mood good tonight.Co ntinue risperdal 25 mg ER IM q 14 days, divalproex 500 mg ER qd, and nortriptyl ine 10 mg qdMonitor mood.Consu lt psych prn Essential hypertension 06817726 I10 BP in good control since here on furosemide 20 mg qd and lisinopril 5 mg qdMonitor BP and labs Hyperlipidemia 23497167 E78.49 Continue simvastati n 20 mg qdMonitor labs as outpt. Constipation 90267149 K5 9.09 Good bowel sounds, but still hasn't had BM (x 5 days).Incr ease colace to 100 mg BID and miralax 17 gms BID.Monito r bowel function Gastroesop hageal reflux disease 964611998 K21.9 No current sxs.Contin ue pantoprazo le 20 mg qdMonitor for GI sxs Osteoarthritis 194264278 M15.0 Continue pain meds and PT/OT as above.Aleena tor Pulmonary embolism 61162 003 I26.99 S/P BLE DVT and PE with thrombecto my.Continu e eliquis 10 mg BID until 12/13 then 5 mg BIDMonitor resp sxs and signs of bleeding. Deep venou s thrombosis of lower extremity 707852984 I82.409 As above. [id number] SHAWNA PRAKASH [address] [address] 12/15/2023 11:08:58 12/19/2023 14:49:55 Closed fracture of hip 833438709 S72.092A subcapital left femur neck fractures/ p left hemiarthro plastycont inue tramadol 25 mg dailytylen ol 650mg prnfollow up with orthoPT/OT eval and treat Anticoagulant therapy 18 5112624 Z79.01 recent hx of bilat Lower extremity DVT and PEcontinue eliquis 10 mg BID until 12/13 then 10 mg BIDmonitor for abnormal bruising or bleeding Bipolar disorder 5069710 4 F31.9 continue risperdal 25 mg ER IM Q14 dayscontin ue divalproex 500 mg ER dailynortr iptyline 10 mg dailymonit or for mood and behavior changes.ps ych prn Essential hypertension 64576018 I10 continue furosemide 20 mg daily and lisinopril 5 mgmonitor BP [id number] SHAWNA PRAKASH [address] [address] 12/18/2023 10:43:55 12/23/2023 14:38:58 Closed fracture of hip 762263860 S72.092A subcapital left femur neck fractures/ p left hemiarthro plastycont inue tramadol 25 mg dailytylen ol 650mg prnfollow up with orthoPT/OT Anticoagulant therapy 18 4600482 Z79.01 recent hx of bilat Lower extremity DVT and PEcontinue eliquis 5 mg BIDmonitor for abnormal bruising or bleeding Bipolar disorder 1056173 4 F31.9 continue risperdal 25 mg ER IM Q14 dayscontin ue divalproex 500 mg ER dailynortr iptyline 10 mg dailymonit or for mood and behavior changes.ps ych prn Essential hypertension 92160052 I10 continue furosemide 20 mg daily and lisinopril 5 mgmonitor BP [id number] SHAWNA PRAKASH [address] [address] 12/22/2023 12:46:20 12/23/2023 15:34:36 Closed fracture of hip 180275891 S72.092A subcapital left femur neck fractures/ p left hemiarthro plastycont inue tramadol 25 mg dailytylen ol 650mg prnfollow up with orthoPT/OT Anticoagulant therapy 18 9349256 Z79.01 recent hx of bilat Lower extremity DVT and PEcontinue eliquis 5 mg BIDmonitor for abnormal bruising or bleeding Bipolar disorder 0783140 4 F31.9 continue risperdal 25 mg ER IM Q14 dayscontin ue divalproex 500 mg ER dailynortr iptyline 10 mg dailymonit or for mood and behavior changes.ps ych prn Essential hypertension 62097329 I10 continue furosemide 20 mg daily and lisinopril 5 mgmonitor BP [id number] ELICEO REED, SHAWNA REYES DEWAYNE [address] [place] [address] rd [place] [address] 12/26/2023 09:50:52 12/30/2023 10:19:14 Closed fracture of hip 792493349 S72.092A subcapital left femur neck fractures/ p left hemiarthro plastycont inue tramadol 25 mg dailytylen ol 650mg prnfollow up with orthoPT/OT Constipation 57673023 K5 9.00 see hpiabdomin al KUB orderedinc rease water intake.con tinue miralax 17 gm daily and colace 100 mg dailymonit or bowel sounds Low blood pressure 04951 003 I95.9 sbp reported in the 80's with dizzinessm idodrine 5 mg prn TIDupdated provider with new changespla ce parameter on lisonpril Dysuria 37768067 R30.0 straight cath for UA with c&s Health Concerns Section Related Observation LastModified by Organization Detai ls LastModified Time None Recorded Concern Status LastModified by Organization Details LastModified Time None Recorded Advance Directives Directive Y: Payers Insurance Date Sequence Insurance Name Policy Number Policy Ramirez Covered Member ID Ramirez Member ID Guarantor Name 01/14/2024 2 [place] [id number] Jing Bautista [id number] Jing Bautista 01/14/2024 1 [place] [employer] Jing Bautista [id number] Jing Bautista Notes Date Note Type Note Provider Name and Address Organization Details Recorded Time 12/11/2023 text/html This is a 78 yo woman who is here for rehab after an acute hospitalization for a left femur fx after a fall from lightheadedness, course complicated by a PE with thrombectomy and IVC filter placement, and NSTEMI.She presented to the [facility] on 11/28 after a fall when [...] left femoral neck fracture, as well as upua-gb-yiykwdss osteoarthritis of the bilateral hips and large [...] and bipolar disorder. Kinza Aguilar MD [address] [facility], [address], [place], [address], [facility] 12/24/2023 18:50:46 12/15/2023 text/html ROS as noted in the HPI This is a 78 yr old female [...] today acute rounding visit. SHAWNA PRAKASH [address] [facility], [address], [place], [address], [facility] 12/17/2023 19:59:44 12/18/2023 text/html ROS as noted in the HPI This is a 78 yr old female [...] no acute nursing concerns. SHAWNA PRAKASH [address] [facility], [address], [place], [address], [facility] 12/19/2023 20:25:02 12/22/2023 text/html ROS as noted in the HPI This is a 78 yr old female [...] today acute rounding visit. SHAWNA PRAKASH [address] [facility], [address], [place], [address], [facility] 12/22/2023 18:26:10 12/26/2023 text/html ROS as noted in the HPI This is a 78 yr old female [...] KUB and monitor VS. SHAWNA PRAKASH [address] [facility], [address], [place], [address], [facility] 12/26/2023 15:55:34 OBGyn Episode No OBEpisode recorded.
--- OUTSIDE RECORDS SUMMARY | 2025-06-21 06:07 | XMS_ITS | Data Portability ---
Author Organization [place] [facility] Address [address] [place] [address] Care Team Providers Care Electric Engine Mechanic Name Role Phone TAYLOR FAJARDO Primary Care Provider [phone] Assessment Encounter Date Assessment Date Assessment LastModified [...] ago. I do not have access to [facility] to review labs and prior records. [...] of this patient according to [facility]'s infection prevention protocols. [email or web address] Not available 08/30/2022 15:33:04 Plan of Treatment Reminders Order Date Submit Date Provider Last Modified By Organization Details Last Modified Time Details Appointments None recorded. Lab None recorded. Referral None recorded. Procedures None recorded. Surgeries None recorded. Imaging None recorded. Medication Orders triamcinolo ne acetonide 0.1 % topical cream [address] [facility] #[id number], [address] [place], [address], 15:03:34 Patient TargetsNo targets recorded. Patient InstructionsNo instructions recorded. Reason for Referral None Reported. Procedures Surgical History Date Name Laterality Status Provider Name and Address Organization Details Recorded Time excision of bilateral breasts completed PHIL Mcbride [address], [place], [address], [place] [facility] 08/30/2022 14:48:21 Imaging Results None recorded. Procedure [...] Social History Question Answer Notes LastModified by [employer] Website Details LastModified Time Tobacco Smoking Status Former Smoker PHIL Mcbride [address], [place], [address], [place] [facility] 08/30/2022 14:47:30 Do You Have An Advance Directive? Yes [email or web address] Information not available 08/30/2022 What Is Your Code Status? DNR [email or web address] Information not available 08/30/2022 Excessive Alcohol Or Drug Use No [email or web address] Information not available 08/30/2022 Does This Patient Have A PCP? Yes [email or web address] Information not available 08/30/2022 Has The Patient Seen Their PCP In The Past 6 Months? Yes Information not available 08/30/2022 Is This Patient In Hospice? No [email or web address] Information not available 08/30/2022 Sex: Unknown Functional Status Question Answer Note LastModified by [employer] Website Details LastModified Time Do you use any illicit or recreational drugs? No [email or web address] Information not available 08/30/2022 What is your level of alcohol consumption? None [email or web address] Information not available 08/30/2022 Mental Status None recorded. Family History Relationship Description Onset Age of this Age Resolved Age Notes LastModified by Organization Details LastModified Time Father Coronary arterioscler osis [email or web address] Not available 08/30 14:45:38 Medical History Condition Response Coronary Artery Disease N COPD N Depression N Hypothyroidism N A-fib N Cancer Y [...] ICD10 Code Diagnosis IMO Codes Diagnosis Note [id number] [facility]IL [facility] [address] [place] [address] 08/30/2022 14:38:44 09/01/2022 19:29:15 Peripheral edema 419732462 R60.9 Atopic dermatitis 905149 01 L20.9 Health Concerns Section Related Observation LastModified by Organization Detai ls LastModified Time None Recorded Concern Status LastModified by Organization Details LastModified Time None Recorded Advance Directives Directive Y: Payers Insurance Date Sequence Insurance Name Policy Number Policy Ramirez Covered Member ID Ramirez Member ID Guarantor Name 09/23/2022 2 [place] [id number] Jing Cadden [id number] Jing Cadden 08/30/2022 2 [place] [id number] Jing Cadden [id number] Jing Cadden 08/30/2022 2 [place] [id number] Jing Cadden [id number] Jing Cadden 08/30/2022 2 [place] [id number] Jing Cadden [id number] Jing Cadden 09/23/2022 1 [place]IC[place] [employer] Jing A Cadden [id number] Jing Cadden 08/29/2022 1 *SELF PAY* Jing Cadden [id number] Jing Cadden Notes Date Note Type Note [...] results yet. PHIL Mcbride [address], [place], [address], [place] [facility] 08/30/2022 15:33:18 OBGyn Episode No OBEpisode recorded.
[2025-06-21 06:30] LABS: Hematocrit 33.4 % (37.0-47.0); Hemoglobin 10.3 g/dl (12.0-16.0); Imm Gran Abs Auto 0.04 X10*3/uL (0.00-0.03); Imm Gran Pct Auto 0.4 % (0.0-0.4); Lymphocytes Absolute Auto 2.1 X10*3/uL (1.2-4.9); Mean Corpuscular HGB Conc 30.8 g/dl (31.0-35.0); Mean Corpuscular Hemoglobin 28.4 pg (27.0-33.0); Mean Corpuscular Volume 92.0 fL (80.0-98.0); NRBC Abs Auto 0.000 X10*3/uL (0.0-0.012); NRBC Pct Auto 0.0 /100WBC (0.0-0.2); Platelet Count 280 X10*3/uL (160-400); Red Blood Count 3.63 X10*6/uL (4.20-5.50); White Blood Count 10.3 X10*3/uL (4.8-10.8)
[2025-06-21 06:38] LABS: Alanine Aminotransferase < 6 U/L (0-31); Albumin Level 3.4 g/dL (3.5-5.0); Alkaline Phosphatase 70 U/L (39-117); Anion Gap 17 (12-20); Aspartate Amino Transferase 12 U/L (5-31); Blood Urea Nitrogen 23 mg/dL (9-16); Calcium 9.2 mg/dL (8.4-10.2); Carbon Dioxide 28 mmol/L (22-29); Chloride 103 mmol/L (96-108); Estimated Glomerular Filt Rate 49; Potassium 3.3 mmol/L (3.3-5.1); Sodium 145 mmol/L (135-145); Total Protein 6.5 g/dL (6.5-8.0)
== END 2025-06-21 06:06 | disposition home or self-care (01) ==
LOC: HO.MMNH3L 06:05
PROVIDERS: Visit Provider Physician Assistant Medical
DX: E11.9 Type 2 diabetes mellitus without complications (principal)
CPT/HCPCS: 36415; 80053; 85025

== ENCOUNTER 2025-06-24 06:06 | Outpatient (REF) | payer MEDICARE, SELFPAY ==
--- OUTSIDE RECORDS SUMMARY | 2025-06-24 06:09 | XMS_ITS ---
TYLER dye [facility] 12/10/2023 16:55:24 Past Encounters Encounter ID Performer Location Encounter Start Date Encounter Closed Date Diagnosis/Indication Diagnosis SNOMED-CT Code Diagnosis ICD10 Code Diagnosis IMO Codes Diagnosis Note [id number] SHAWNA PRAKASH [address] [place] [address] 12/10/2023 09:43:49 12/16/2023 11:19:07 Closed fracture of hip 539606360 S72.092A subcapital left femur neck fractures/ p left hemiarthro plastycont inue tramadol 25 mg dailytylen ol 650mg prnfollow up with orthoPT/OT eval and treat Anticoagulant therapy 18 1803754 Z79.01 recent hx of bilat Lower extremity DVT and PEcontinue eliquis 10 mg BID until 12/13 then 10 mg BIDmonitor for abnormal bruising or bleeding Bipolar disorder 4772464 4 F31.9 continue risperdal 25 mg ER IM Q14 dayscontin ue divalproex 500 mg ER dailynortr iptyline 10 mg dailymonit or for mood and behavior changes.ps ych prn Essential hypertension 36721863 I10 continue furosemide 20 mg daily and lisinopril 5 mgmonitor BP Hyperlipidemia 50047318 E78.5 continue simvastati n 20 mg daily Constipation 86187930 K5 9.00 continue miralax 17 gm daily and colace 100 mg dailymonit or bowel sounds Gastroesop hageal reflux disease 631965260 K21.9 protonix 20 mg dailymonit or for GI upset Osteoarthritis 146936798 M19.90 continue tramadol and tylenol prn. [id number] Kinza Aguilar MD [address] [place] [address] 12/11/2023 18:35:49 12/26/2023 15:12:27 Closed fracture of hip 683111289 S72.092D Recovering slowly.Nee ds PT/OT for strengthen ing, balance, gait training, safety and function.C ontinue fall precaution s.Monitor for safety.Con tinue tramadol 25 mg q 6 hrs prn and APAP 650 mg q 6 hrs prn.Monito r pain control and progress.F /U with ortho as planned. Bipolar disorder 2954830 4 F31.89 Mood good tonight.Co ntinue risperdal 25 mg ER IM q 14 days, divalproex 500 mg ER qd, and nortriptyl ine 10 mg qdMonitor mood.Consu lt psych prn Essential hypertension 70596378 I10 BP in good control since here on furosemide 20 mg qd and lisinopril 5 mg qdMonitor BP and labs Hyperlipidemia 05695125 E78.49 Continue simvastati n 20 mg qdMonitor labs as outpt. Constipation 88861827 K5 9.09 Good bowel sounds, but still hasn't had BM (x 5 days).Incr ease colace to 100 mg BID and miralax 17 gms BID.Monito r bowel function Gastroesop hageal reflux disease 406446482 K21.9 No current sxs.Contin ue pantoprazo le 20 mg qdMonitor for GI sxs Osteoarthritis 401278023 M15.0 Continue pain meds and PT/OT as above.Aleena tor Pulmonary embolism 88716 003 I26.99 S/P BLE DVT and PE with thrombecto my.Continu e eliquis 10 mg BID until 12/13 then 5 mg BIDMonitor resp sxs and signs of bleeding. Deep venou s thrombosis of lower extremity 189665551 I82.409 As above. [id number] SHAWNA PRAKASH DEWAYNE [address] [place] [address] 12/15/2023 11:08:58 12/19/2023 14:49:55 Closed fracture of hip 401510760 S72.092A subcapital left femur neck fractures/ p left hemiarthro plastycont inue tramadol 25 mg dailytylen ol 650mg prnfollow up with orthoPT/OT eval and treat Anticoagulant therapy 18 1584034 Z79.01 recent hx of bilat Lower extremity DVT and PEcontinue eliquis 10 mg BID until 12/13 then 10 mg BIDmonitor for abnormal bruising or bleeding Bipolar disorder 2010274 4 F31.9 continue risperdal 25 mg ER IM Q14 dayscontin ue divalproex 500 mg ER dailynortr iptyline 10 mg dailymonit or for mood and behavior changes.ps ych prn Essential hypertension 78732435 I10 continue furosemide 20 mg daily and lisinopril 5 mgmonitor BP [id number] SHAWNA PRAKASH [address] [address] 12/18/2023 10:43:55 12/23/2023 14:38:58 Closed fracture of hip 775202767 S72.092A subcapital left femur neck fractures/ p left hemiarthro plastycont inue tramadol 25 mg dailytylen ol 650mg prnfollow up with orthoPT/OT Anticoagulant therapy 18 1939377 Z79.01 recent hx of bilat Lower extremity DVT and PEcontinue eliquis 5 mg BIDmonitor for abnormal bruising or bleeding Bipolar disorder 5191158 4 F31.9 continue risperdal 25 mg ER IM Q14 dayscontin ue divalproex 500 mg ER dailynortr iptyline 10 mg dailymonit or for mood and behavior changes.ps yc prn Essential hypertension 57586610 I10 continue furosemide 20 mg daily and lisinopril 5 mgmonitor BP [id number] SHAWNA PRAKASH [address] [address] 12/22/2023 12:46:20 12/23/2023 15:34:36 Closed fracture of hip 057303970 S72.092A subcapital left femur neck fractures/ p left hemiarthro plastycont inue tramadol 25 mg dailytylen ol 650mg prnfollow up with orthoPT/OT Anticoagulant therapy 18 5386220 Z79.01 recent hx of bilat Lower extremity DVT and PEcontinue eliquis 5 mg BIDmonitor for abnormal bruising or bleeding Bipolar disorder 7904725 4 F31.9 continue risperdal 25 mg ER IM Q14 dayscontin ue divalproex 500 mg ER dailynortr iptyline 10 mg dailymonit or for mood and behavior changes.ps ych prn Essential hypertension 35734325 I10 continue furosemide 20 mg daily and lisinopril 5 mgmonitor BP [id number] SHAWNA PRAKASH [address] [address] 12/26/2023 09:50:52 12/30/2023 10:19:14 Closed fracture of hip 407407610 S72.092A subcapital left femur neck fractures/ p left hemiarthro plastycont inue tramadol 25 mg dailytylen ol 650mg prnfollow up with orthoPT/OT Constipation 48135723 K5 9.00 see hpiabdomin al KUB orderedinc rease water intake.con tinue miralax 17 gm daily and colace 100 mg dailymonit or bowel sounds Low blood pressure 42022 003 I95.9 sbp reported in the 80's with dizzinessm idodrine 5 mg prn TIDupdated provider with new changespla ce parameter on lisonpril Dysuria 05280066 R30.0 straight cath for UA with c&s Health Concerns Section Related Observation LastModified by Organization Detai ls LastModified Time None Recorded Concern Status LastModified by Organization Details LastModified Time None Recorded Advance Directives Directive Y: Payers Insurance Date Sequence Insurance Name Policy Number Policy Ramirez Covered Member ID Ramirez Member ID Guarantor Name 01/14/2024 2 [place] [id number] Jing Michele [id number] Jing Michele 01/14/2024 1 [place] [employer] Jing A Michele [id number] Jing Bautista Notes Date Note Type Note Provider Name and Address Organization Details Recorded Time 12/11/2023 text/html This is a 78 yo woman who is here for rehab after an acute hospitalization for a left femur fx after a fall from lightheadedness, course complicated by a PE with thrombectomy and IVC filter placement, and NSTEMI.She presented to the [facility] ED on 11/28 after a fall when [...] left femoral neck fracture, as well as [id number] osteoarthritis of the bilateral hips and large [...] and bipolar disorder. Kinza Aguilar MD [address], [address], [place], [address], [facility] 12/24/2023 18:50:46 12/15/2023 text/html ROS as [...] today acute rounding visit. SHAWNA PRAKASH [address], [address], [place], [address], [facility] 12/17/2023 19:59:44 12/18/2023 text/html ROS as [...] no acute nursing concerns. SHAWNA PRAKASH [address], [address], [place], [address], [facility] 12/19/2023 20:25:02 12/22/2023 text/html ROS as noted [...] today acute rounding visit. SHAWNA PRAKASH [address], [address], [place], [address], [employer] 12/22/2023 18:26:10 12/26/2023 text/html ROS as noted [...] KUB and monitor VS. SHAWNA PRAKASH [address], [address], [place], [address], [employer] [facility] 12/26/2023 15:55:34 OBGyn Episode No OBEpisode recorded. Data Portability Created on: June 24, 2025 Jing Bautista .[id number] : [id number] Sex: Female Author Organization [facility] [employer] [facility], Main Office Address [address] [place] [address] Care Team Providers Care Hire Car Driver Name Role Phone ERIC BUCHANAN 1ST FLOOR OTHER [phone] AMEENA SHRESTHA Primary Care Provider Assessment Encounter [...] Address Organization Details Recorded Time Essential hypertension 45887361 Active 2023 SHAWNA PRAKASH [address], [address], [place], [address], [facility] 4 18:08:53 Closed fracture of hip 800663024 Active 2023 ELICEO REED, MANAGER ANIMATION [address], [address], [place], [address], [facility] 4 18:09:20 Hyperlipidemia 82924758 Active 2023 ELICEOCHINMAY REEDLANCEP [address], [address], [place], [address], [facility] 4 18:09:33 Bipolar disorder 26753951 Active 2023 ELICEO REEDLANCEP [address], [address], [place], [address], [facility] 4 18:09:40 Cognitive disorder 746690920 Active 2023 ELICEO REED MANAGER ANIMATION [address], [address], [place], [address], [facility] 4 18:09:47 Osteoarthritis 214243650 Active 2023 ELICEOCHINMAY REEDLANCEP [address], [address], [place], [address], [facility] 4 18:10:03 Acute non-ST segment elevation myocardial infarction 144540908 Active 2023 ELICEO REED MANAGER ANIMATION [address], [address], [place], [address], [facility] 4 18:11:00 Gastroesophage al reflux disease 118596419 Active 2023 ELICEO REED, MANAGER ANIMATION [address], [address], [place], [address], [facility] 4 18:11:31 Constipation 58086126 Active 2023 ELICEO REED, MANAGER ANIMATION [address], [address], [place], [address], [facility] 4 18:53:26 Pulmonary embolism 06332444 Active 2023 SHAWNA PRAKASH [address], [address], [place], [address], [facility] 4 18:53:38 Deep venous thrombosis of lower extremity 685835749 Active 2023 SHAWNA PRAKASH [address], [address], [place], [address], [facility] 4 18:53:58 Anticoagulant therapy Active 2023 SHAWNA PRAKASH [address], [address], [place], [address], [facility] 4 18:55:47 Closed fracture of hip 965665308 Active 2023 Kinza Aguilar MD [address], [address], [place], [address], [facility] 4 18:40:28 Problem Notes None recorded. Medical [...] Updated DateTime 4 160.02 cm 30.6 kg/m2 29088.7 6 g 90 /min 18 /min 97.9 [degF] 92 % 92 % 124/72 mm[Hg] Kinza Aguilar MD [address], [address], [place], [address], [employer] 4 18:48:48 Date Recorded Body height Body temperature Respiratory rate Heart rate Oxygen saturation Oxygen saturation in Arterial blood by Pulse oximetry Systolic And Diastolic Provider Name and Address Organization Details Last Updated DateTime 4 160.02 cm 97.9 [degF] 18 /min 72 /min 96 % 96 % 101/59 mm[Hg] SHAWNA PRAKASH [address], [address], [place], [address], [facility] 4 20:20:42 Date Recorded Body height Heart rate Respiratory rate Body temperature Oxygen saturation Oxygen saturation in Arterial blood by Pulse oximetry Systolic And Diastolic Provider Name and Address Organization Details Last Updated DateTime 160.02 cm 82 /min 18 /min 97.9 [degF] 95 % 95 % 108/61 mm[Hg] SHAWNA PRAKASH [address], [address], [place], [address], [facility] 4 18:13:08 Date Recorded Body height Provider Name an d Address Organization Details Last Updated DateTime 12/26/2023 160.02 cm SHAWNA PRAKASH [address], [address], [place], [address], [facility] 12/26/2023 15:43:49 Social History Question Answer Notes LastModified by Organizat ion Details LastModified Time Tobacco Smoking Status Former Smoker quit 2012 Kinza Aguilar MD [address], [address], [place], [address], [facility] 12/11/2023 18:53:26 Do You Have An Advance Directive? Yes Information not available 12/11/2023 What Is Your Code Status? DNR/DNI Information not available 12/11/2023 Where Do You Live? Condo Information not available 12/11/2023 Legal Guardian? No Informati on not available 12/11/2023 Do You Have A Medical Power Of Fish And Wildlife Biologist? Yes Information not available 12/11/2023 What Was [...] Pneumococcal conjugate PCV 13 6 completed Lori Montrell [facility] 12/10/2023 16:53:02 Pneumococcal conjugate PCV20, polysaccharide [id number] conjugate, adjuvant, PF 3 completed [facility] 12/10/2023 16:53:17 influenza, unspecified formulation 2 completed Lori Montrell [facility] 12/10/2023 16:53:32 influenza, unspecified formulation 3 completed [facility] 12/10/2023 16:53:42 SARS-COV-2 (COVID-19) vaccine, UNSPECIFIED 1 completed Lori Montrell [facility] 12/10/2023 16:53:56 SARS-COV-2 (COVID-19) vaccine, UNSPECIFIED 1 completed Lori Montrell [facility] 12/10/2023 16:54:05 SARS-COV-2 (COVID-19) vaccine, UNSPECIFIED 1 completed Lori Montrell [facility] 12/10/2023 16:54:12 SARS-COV-2 (COVID-19) vaccine, UNSPECIFIED 2 completed Lori Montrell [facility] 12/10/2023 16:54:19 SARS-COV-2 (COVID-19) vaccine, UNSPECIFIED 2 completed Lori Montrell [facility] 12/10/2023 16:54:27 SARS-COV-2 (COVID-19) vaccine, UNSPECIFIED 3 completed Lori Montrell [facility] 12/10/2023 16:54:35 zoster live 3 completed [facility]2023 16:54:55 zoster recombinant 9 completed Lori Stock [facility] 12/10/2023 16:55:13 zoster recombinant 9 completed Lori Stock
--- OUTSIDE RECORDS SUMMARY | 2025-06-24 06:09 | XMS_ITS | Data Portability ---
Author Organization [place] - [facility] Address [address] [place] [address] Care Team Providers Care Epic Cupid Analyst Name Role Phone TAYLOR FAJARDO Primary Care Provider [phone] Assessment Encounter Date Assessment Date Assessment LastModified [...] ago. I do not have access to [facility] to review labs and prior records. [...] after care of this patient according to [facility]'s infection prevention protocols. [email or web address] Not available 08/30/2022 15:33:04 Plan of Treatment Reminders Order Date Submit Date Provider Last Modified By Organization Details Last Modified Time Details Appointments None recorded. Lab None recorded. Referral None recorded. Procedures None recorded. Surgeries None recorded. Imaging None recorded. Medication Orders triamcinolo ne acetonide 0.1 % topical cream 2022 [facility]23 [id number], [address] [place], [address], 15:03:34 Patient TargetsNo targets recorded. Patient InstructionsNo instructions recorded. Reason for Referral None Reported. Procedures Surgical History Date Name Laterality Status Provider Name and Address Organization Details Recorded Time excision of bilateral breasts completed PHIL Mcbride [address], [place], [address], [place] [facility] 08/30/[facility]22 14:48:21 Imaging Results None recorded. Procedure [...] Social History Question Answer Notes LastModified by [employer] Details LastModified Time Tobacco Smoking Status Former Smoker PHIL Mcbride [address], [place], [address], [place] [facility] 08/30/2022 14:47:30 Do You Have An Advance Directive? Yes [email or web address] Information not available 08/30/2022 What Is Your Code Status? DNR [email or web address] Information not available 08/30/2022 Excessive Alcohol Or Drug Use No [email or web address] Information not available 08/30/2022 Does This Patient Have A PCP? Yes [email or web address] Information not available 08/30/2022 Has The Patient Seen Their PCP In The Past 6 Months? Yes Information not available 08/30/2022 Is This Patient In Hospice? No [email or web address] Information not available 08/30/2022 Sex: Unknown Functional Status Question Answer Note LastModified by [employer] Details LastModified Time Do you use any illicit or recreational drugs? No [email or web address] Information not available 08/30/2022 What is your level of alcohol consumption? None [email or web address] Information not available 08/30/2022 Mental Status None recorded. Family History Relationship Description Onset Age of this Age Resolved Age Notes LastModified by Organization Details LastModified Time Father Coronary arterioscler osis [email or web address] Not available 08/30 14:45:38 Medical History Condition [...] ICD10 Code Diagnosis IMO Codes Diagnosis Note [id number] PHIL Mcbr[facility] [address] [facility] [address] 08/30/2022 14:38:44 09/01/2022 19:29:15 Peripheral edema 901073209 R60.9 Atopic dermatitis 994091 01 L20.9 Health Concerns Section Related Observation LastModified by Organization Detai ls LastModified Time None Recorded Concern Status LastModified by Organization Details LastModified Time None Recorded Advance Directives Directive Y: Payers Insurance Date Sequence Insurance Name Policy Number Policy Ramirez Covered Member ID Ramirez Member ID Guarantor Name 09/23/2022 2 [place] [id number] Jing Cadden [id number] Jing Cadden 08/30/2022 2 [place] [id number] Jing Cadden [id number] Jing Cadden 08/30/2022 2 [place] [id number] Jing Cadden [id number] Jing Cadden 08/30/2022 2 [place] [id number] Jing Cadden [id number] Jing Cadden 09/23/2022 1 [place] [employer] Jing A Cadden [id number] Jing Cadden 08/29/2022 1 *SELF PAY* Jing Cadden [id number] Jing Cadden Notes Date Note Type Note [...] results yet. PHIL Mcbride [address], [place], [address], [place] [facility] 08/30/2022 15:33:18 OBGyn Episode No OBEpisode recorded.
[2025-06-24 06:10] LABS: MANUAL DIFF FLAG NO
[2025-06-24 06:59] LABS: Anion Gap 14 (12-20); Blood Urea Nitrogen 24 mg/dL (9-16); Calcium 9.2 mg/dL (8.4-10.2); Carbon Dioxide 33 mmol/L (22-29); Chloride 101 mmol/L (96-108); Estimated Glomerular Filt Rate 45; Hematocrit 33.9 % (37.0-47.0); Hemoglobin 10.2 g/dl (12.0-16.0); Imm Gran Abs Auto 0.03 X10*3/uL (0.00-0.03); Imm Gran Pct Auto 0.3 % (0.0-0.4); Lymphocytes Absolute Auto 2.1 X10*3/uL (1.2-4.9); Mean Corpuscular HGB Conc 30.1 g/dl (31.0-35.0); Mean Corpuscular Hemoglobin 28.1 pg (27.0-33.0); Mean Corpuscular Volume 93.4 fL (80.0-98.0); NRBC Abs Auto 0.000 X10*3/uL (0.0-0.012); NRBC Pct Auto 0.0 /100WBC (0.0-0.2); Platelet Count 261 X10*3/uL (160-400); Potassium 3.7 mmol/L (3.3-5.1); Red Blood Count 3.63 X10*6/uL (4.20-5.50); Sodium 144 mmol/L (135-145); White Blood Count 8.6 X10*3/uL (4.8-10.8)
== END 2025-06-24 06:07 | disposition home or self-care (01) ==
LOC: HO.MMNH3L 06:06
PROVIDERS: Visit Provider Physician Assistant Medical
DX: E11.9 Type 2 diabetes mellitus without complications (principal)
CPT/HCPCS: 36415; 80048; 85025

== ENCOUNTER 2025-07-08 14:22 | Outpatient (REF) | payer MEDICARE, SELFPAY ==
[2025-07-08 14:50] LABS: Appearance Urine Turbid; Glucose Urine UA Negative (Negative); PH 8.0 (5.0-9.0); Specific Gravity - Urine 1.015 (1.005-1.025); UMIC TRIGGER UA YES
[2025-07-08 15:13] LABS: Other Crystals Urine Present
--- OUTSIDE RECORDS SUMMARY | 2025-07-08 21:19 | XMS_ITS | Encounter Summary ---
Author Organization [facility], Address [address] [place] [address] Phone Care Team Providers Care Missile Facilities Repairer Name Role Phone Villa Jiang MD Primary Care Provider Unav ailable Encounter Details Date Type Department Care Team (Late st Contact Info) Description 04/28/2024 Documentation Only [facility], [address] [place] [address] Felicitas Medellin [address] [place] [phone] Social History Tobacco Use Types Packs/Day Years [...] on filedocumented in this encounter Care Teams Missile Facilities Repairer Relationship Specialty Start Date End Date Villa Jiang MD [address] [place] [address] PCP - General Internal Medicine 03/19/23 documented as of this encounter
--- OUTSIDE RECORDS SUMMARY | 2025-07-08 21:20 | XMS_ITS | Clinical Summary ---
Author Organization [facility], Address [address] [place] [address] [place] [address] Phone Care Team Providers Care Surveyor Oil Well Directional Name Role Phone Villa Jiang MD Primary [...] age to complete this topic Insurance Medicare [facility] Care Teams Surveyor Oil Well Directional Relationship Specialty Start Date End Date Villa Jiang MD [address] [place] [address] PCP - General Internal Medicine 03/19/23
--- OUTSIDE RECORDS SUMMARY | 2025-07-08 21:20 | XMS_ITS | Encounter Summary ---
Author Organization [facility], Address [address] [place] [address] Phone Care Team Providers Care Cylinder Valve Repairer Name Role Phone Villa Jiang MD Primary Care Provider Unav ailable Encounter Details Date Type Department Care Team (Late st Contact Info) Description 04/28/2024 Documentation Only [facility], [address] [place] [address] Felicitas Medellin [address] [place] [phone] Social History Tobacco Use Types Packs/Day Years [...] on filedocumented in this encounter Care Teams Cylinder Valve Repairer Relationship Specialty Start Date End Date Villa Jiang MD [address] [place] [address] PCP - General Internal Medicine 03/19/23 documented as of this encounter
--- OUTSIDE RECORDS SUMMARY | 2025-07-08 21:20 | XMS_ITS | Encounter Summary ---
Author Organization [facility], Address [address] [place] [address] Phone Care Team Providers Care Hand Silvering Supervisor Name Role Phone Villa Jiang MD Primary Care Provider Unav ailable Encounter Details Date Type Department Care Team (Late st Contact Info) Description 04/28/2024 Documentation Only [facility], [address] [place] [address] Felicitas Medellin [address] [place] [phone] Social History Tobacco Use Types Packs/Day Years [...] on filedocumented in this encounter Care Teams Hand Silvering Supervisor Relationship Specialty Start Date End Date Villa Jiang MD [address] [place] [address] PCP - General Internal Medicine 03/19/23 documented as of this encounter
--- OUTSIDE RECORDS SUMMARY | 2025-07-08 21:20 | XMS_ITS | Encounter Summary ---
Author Organization [facility], Address [address] [place] [address] Phone Care Team Providers Care Glassine Machine Tender Name Role Phone Villa Jiang MD Primary Care Provider Unav ailable Encounter Details Date Type Department Care Team (Late st Contact Info) Description 04/28/2024 Documentation Only [facility], [address] [place] [address] Felicitas Medellin [address] [place] [phone] Social History Tobacco Use Types Packs/Day Years [...] on filedocumented in this encounter Care Teams Glassine Machine Tender Relationship Specialty Start Date End Date Villa Jiang MD [address] [place] [address] PCP - General Internal Medicine 03/19/23 documented as of this encounter
--- OUTSIDE RECORDS SUMMARY | 2025-07-08 21:20 | XMS_ITS | Encounter Summary ---
Author Organization [facility], Address [address] [place] [address] Phone Care Team Providers Care Binder Layer Name Role Phone Villa Jiang MD Primary Care Provider Unav ailable Encounter Details Date Type Department Care Team (Late st Contact Info) Description 04/28/2024 Documentation Only [facility], [address] [place] [address] Felicitas Medellin [address] [place] [phone] Social History Tobacco Use Types Packs/Day Years [...] on filedocumented in this encounter Care Teams Binder Layer Relationship Specialty Start Date End Date Villa Jiang MD [address] [place] [address] PCP - General Internal Medicine 03/19/23 documented as of this encounter
--- OUTSIDE RECORDS SUMMARY | 2025-07-08 21:20 | XMS_ITS | Encounter Summary ---
Author Organization [facility], Address [address] [place] [address] Phone Care Team Providers Care Blown Film Extrusion Operator Name Role Phone Villa Jiang MD Primary Care Provider Unav ailable Encounter Details Date Type Department Care Team (Late st Contact Info) Description 04/28/2024 Documentation Only [facility], [address] [place] [address] Felicitas Medellin [address] [place] [phone] Social History Tobacco Use Types Packs/Day Years [...] on filedocumented in this encounter Care Teams Blown Film Extrusion Operator Relationship Specialty Start Date End Date Villa Jiang MD [address] [place] [address] PCP - General Internal Medicine 03/19/23 documented as of this encounter
--- OUTSIDE RECORDS SUMMARY | 2025-07-08 21:21 | XMS_ITS | Data Portability ---
Author Organization [place] [facility] Address [address] [place] [address] Care Team Providers Care Miller Supervisor Name Role Phone TAYLOR FAJARDO Primary Care Provider [phone] Assessment Encounter Date Assessment Date Assessment LastModified [...] ago. I do not have access to [facility] to review labs and prior records. [...] after care of this patient according to [facility]'s infection prevention protocols. [email or web address] Not available 08/30/2022 15:33:04 Plan of Treatment Reminders Order Date Submit Date Provider Last Modified By Organization Details Last Modified Time Details Appointments None recorded. Lab None recorded. Referral None recorded. Procedures None recorded. Surgeries None recorded. Imaging None recorded. Medication Orders triamcinolo ne acetonide 0.1 % topical cream 2022 023 [facility] #[id number], [address] [place], [address], 15:03:34 Patient TargetsNo targets recorded. Patient InstructionsNo instructions recorded. Reason for Referral None Reported. Procedures Surgical History Date Name Laterality Status Provider Name and Address Organization Details Recorded Time excision of bilateral breasts completed PHIL Mcbride [address], [place], [address], [place] [facility] 08/30/2022 14:48:21 Imaging Results None [...] Social History Question Answer Notes LastModified by [employer] Details LastModified Time Tobacco Smoking Status Former Smoker PHIL Mcbride [address], [place], [address], [place] [facility] 08/30/2022 14:47:30 Do You Have An Advance Directive? Yes [email or web address] Information not available 08/30/2022 What Is Your Code Status? DNR [email or web address] Information not available 08/30/2022 Excessive Alcohol Or Drug Use No [email or web address] Information not available 08/30/2022 Does This Patient Have A PCP? Yes [email or web address] Information not available 08/30/2022 Has The Patient Seen Their PCP In The Past 6 Months? Yes [email or web address] Information not available 08/30/2022 Is This Patient In Hospice? No [email or web address] Information not available 08/30/2022 Sex: Unknown Functional Status Question Answer Note LastModified by [employer] Details LastModified Time Do you use any illicit or recreational drugs? No [email or web address] Information not available 08/30/2022 What is your level of alcohol consumption? None [email or web address] Information not available 08/30/2022 Mental Status None [...] ICD10 Code Diagnosis IMO Codes Diagnosis Note [id number] [facility]IL [facility] [address] [place] [address] 08/30/2022 14:38:44 09/01/2022 19:29:15 Peripheral edema 559768792 R60.9 Atopic dermatitis 996749 01 L20.9 Health Concerns Section Related Observation LastModified by Organization Detai ls LastModified Time None Recorded Concern Status LastModified by Organization Details LastModified Time None Recorded Advance Directives Directive Y: Payers Insurance Date Sequence Insurance Name Policy Number Policy Ramirez Covered Member ID Ramirez Member ID Guarantor Name 09/23/2022 2 [place] [id number] Jing Cadden [id number] Jing Cadden 08/30/2022 2 [place] [id number] Jing Cadden [id number] Jing Cadden 08/30/2022 2 [place] [id number] Jing Cadden [id number] Jing Cadden 08/30/2022 2 [place] [id number] Jing Cadden [id number] Jing Cadden 09/23/2022 1 [place] [employer] Jing A Cadden [id number] Jing Cadden 08/29/2022 1 *SELF PAY* Jing Cadden [id number] Jing Cadden Notes Date Note Type Note [...] results yet. PHIL Mcbride [address], [place], [address], [place] [facility] 08/30/2022 15:33:18 OBGyn Episode No OBEpisode recorded.
--- OUTSIDE RECORDS SUMMARY | 2025-07-08 21:21 | XMS_ITS | Encounter Summary ---
Author Organization [facility], Address [address] [place] [address] Phone Care Team Providers Care Cnc Operator Programmer Name Role Phone Villa Jiang MD Primary Care Provider Unav ailable Encounter Details Date Type Department Care Team (Late st Contact Info) Description 10/07/2023 Documentation Only [facility], [address] [place] [address] Felicitas Medellin [address] [place] [phone] Social History Tobacco Use Types Packs/Day Years [...] on filedocumented in this encounter Care Teams Cnc Operator Programmer Relationship Specialty Start Date End Date Villa Jiang MD [address] [place] [address] PCP - General Internal Medicine 03/19/23 documented as of this encounter
--- OUTSIDE RECORDS SUMMARY | 2025-07-08 21:21 | XMS_ITS | Encounter Summary ---
Author Organization [facility], Address [address] [place] [address] Phone Care Team Providers Care Rate Inserter Name Role Phone Villa Jiang MD Primary Care Provider Unav ailable Encounter Details Date Type Department Care Team (Late st Contact Info) Description 10/07/2023 Documentation Only [facility], [address] [place] [address] Felicitas Medellin [address] [place] [phone] Social History Tobacco Use Types Packs/Day Years [...] on filedocumented in this encounter Care Teams Rate Inserter Relationship Specialty Start Date End Date Villa Jiang MD [address] [place] [address] PCP - General Internal Medicine 03/19/23 documented as of this encounter
--- OUTSIDE RECORDS SUMMARY | 2025-07-08 21:21 | XMS_ITS | Data Portability ---
Author Organization [facility], Main Office Address [address] [address] [address] [place] [address] Care Team Providers Care Professional Athletes Coach Name Role Phone ERIC BUCHANAN 1ST FLOOR [...] Address Organization Details Recorded Time Essential hypertension 23617285 Active 2023 SHAWNA PRAKASH [address], [address], [place], [address], [facility] [employer] 4 18:08:53 Closed fracture of hip 933142634 Active 2023 SHAWNA PRAKASH [address], [address], [place], [address], [facility] [employer] [facility] 4 18:09:20 Hyperlipidemia 83742558 Active 2023 SHAWNA PRAKASH [address], [address], [place], [address], [employer] [facility] 4 18:09:33 Bipolar disorder 67668891 Active 2023 SHAWNA PRAKASH [address], [address], [place], [address], [facility] [employer] [facility] 4 18:09:40 Cognitive disorder 206254017 Active 2023 SHAWNA PRAKASH [address], [address], [place], [address], [employer] [facility] 4 18:09:47 Osteoarthritis 887385094 Active 2023 SHAWNA PRAKASH [address], [address], [place], [address], [employer] [facility] 4 18:10:03 Acute non-ST segment elevation myocardial infarction 863757800 Active 2023 SHAWNA PRAKASH [address], [address], [place], [address], [facility] 4 18:11:00 Gastroesophage al reflux disease 425712897 Active 2023 SHAWNA PRAKASH [address], [address], [place], [place], [address], [facility] 4 18:11:31 Constipation 99297591 Active 2023 SHAWNA PRAKASH [address], [address], [place], [address], [facility] [employer] [facility] 4 18:53:26 Pulmonary embolism 48226206 Active 2023 SHAWNA PRAKASH [address], [address], [place], [address], [facility] [employer] [facility] 4 18:53:38 Deep venous thrombosis of lower extremity 680651065 Active 2023 SHAWNA PRAKASH [address], [address], [place], [address], [facility] [employer] [facility] 4 18:53:58 Anticoagulant therapy Active 2023 SHAWNA PRAKASH [address], [place], [address], [employer] [facility] 4 18:55:47 Closed fracture of hip 232148019 Active 2023 Kinza Aguilar MD [address] [facility], [address], [place], [address], [facility] [employer] [facility] 4 18:40:28 Problem Notes None recorded. [...] Updated DateTime 4 160.02 cm 30.6 kg/m2 63910.7 6 g 90 /min 18 /min 97.9 [degF] 92 % 92 % 124/72 mm[Hg] Kinza Aguilar MD [address] [facility], [address], [place], [address], [employer] [facility] 4 18:48:48 Date Recorded Body height Body temperature Respiratory rate Heart rate Oxygen saturation Oxygen saturation in Arterial blood by Pulse oximetry Systolic And Diastolic Provider Name and Address Organization Details Last Updated DateTime 4 160.02 cm 97.9 [degF] 18 /min 72 /min 96 % 96 % 101/59 mm[Hg] SHAWNA PRAKASH [address] [facility], [address], [place], [address], [employer] [facility] 4 20:20:42 Date Recorded Body height Heart rate Respiratory rate Body temperature Oxygen saturation Oxygen saturation in Arterial blood by Pulse oximetry Systolic And Diastolic Provider Name and Address Organization Details Last Updated DateTime 4 160.02 cm 82 /min 18 /min 97.9 [degF] 95 % 95 % 108/61 mm[Hg] SHAWNA PRAKASH [address] [facility], [address], [place], [address], [employer] 4 18:13:08 Date Recorded Body height Provider Name an d Address Organization Details Last Updated DateTime 12/26/2023 160.02 cm SHAWNA PRAKASH [address] [facility], [address], [place], [address], [employer] [facility] 12/26/2023 15:43:49 Social History Question Answer Notes LastModified by Organizat ion Details LastModified Time Tobacco Smoking Status Former Smoker quit 2012 Kinza Aguilar MD [address] [facility], [address], [place], [address], [employer] [facility] 12/11/2023 18:53:26 Do You Have An Advance Directive? Yes Information not available 12/11/2023 What Is Your Code Status? DNR/DNI Information not available 12/11/2023 Where Do You Live? Condo Information not available 12/11/2023 Legal Guardian? No david Informati on not available 12/11/2023 Do You Have A Medical Power Of Pulp Drier Firer? Yes Information not available 12/11/2023 What Was [...] Time Pneumococcal conjugate [facility]V 13 [facility] 16:53:02 Pneumococcal conjugate PCV20, polysaccharide [id number] conjugate, adjuvant, PF 3 completed Lori [facility] 12/10/2023 16:53:17 influenza, unspecified formulation 2 completed Lori Stock [facility] 12/10/2023 16:53:32 influenza, unspecified formulation 3 completed Lori Stock [facility] 12/10/2023 16:53:42 SARS-COV-2 (COVID-19) vaccine, UNSPECIFIED 1 completed Lorimele Stock [facility] 12/10/2023 16:53:56 SARS-COV-2 (COVID-19) vaccine, UNSPECIFIED 1 completed Lorimele Stock [facility] 12/10/2023 16:54:05 SARS-COV-2 (COVID-19) vaccine, UNSPECIFIED 1 completed Lori [facility] 12/10/2023 16:54:12 SARS-COV-2 (COVID-19) vaccine, UNSPECIFIED 2 completed Lori [facility] 12/10/2023 16:54:19 SARS-COV-2 (COVID-19) vaccine, UNSPECIFIED 2 completed Lori [facility] 12/10/2023 16:54:27 SARS-COV-2 (COVID-19) vaccine, UNSPECIFIED 3 completed Lori [facility] 12/10/2023 16:54:35 zoster live 3 completed [facility] [address] 12/10/2023 16:54:55 zoster recombinant 9 completed [facility] [address] 12/10/2023 16:55:13 zoster recombinant 9 [facility] 12/10/2023 16:55:24 Past Encounters Encounter ID Performer Location Encounter Start Date Encounter Closed Date Diagnosis/Indication Diagnosis SNOMED-CT Code Diagnosis ICD10 Code Diagnosis IMO Codes Diagnosis Note [id number] SHAWNA PRAKASH [address] [place] [address] 12/10/2023 09:43:49 12/16/2023 11:19:07 Closed fracture of hip 138854447 S72.092A subcapital left femur neck fractures/ p left hemiarthro plastycont inue tramadol 25 mg dailytylen ol 650mg prnfollow up with orthoPT/OT eval and treat Anticoagulant therapy 18 2565107 Z79.01 recent hx of bilat Lower extremity DVT and PEcontinue eliquis 10 mg BID until 12/13 then 10 mg BIDmonitor for abnormal bruising or bleeding Bipolar disorder 4017750 4 F31.9 continue risperdal 25 mg ER IM Q14 dayscontin ue divalproex 500 mg ER dailynortr iptyline 10 mg dailymonit or for mood and behavior changes.ps ych prn Essential hypertension 07258265 I10 continue furosemide 20 mg daily and lisinopril 5 mgmonitor BP Hyperlipidemia 60020157 E78.5 continue simvastati n 20 mg daily Constipation 41996296 K5 9.00 continue miralax 17 gm daily and colace 100 mg dailymonit or bowel sounds Gastroesop hageal reflux disease 010108627 K21.9 protonix 20 mg dailymonit or for GI upset Osteoarthritis 267080456 M19.90 continue tramadol and tylenol prn. [id number] Kinza Aguilar MD [address] [place] [address] 12/11/2023 18:35:49 12/26/2023 15:12:27 Closed fracture of hip 183203771 S72.092D Recovering slowly.Nee ds PT/OT for strengthen ing, balance, gait training, safety and function.C ontinue fall precaution s.Monitor for safety.Con tinue tramadol 25 mg q 6 hrs prn and APAP 650 mg q 6 hrs prn.Monito r pain control and progress.F /U with ortho as planned. Bipolar disorder 6547735 4 F31.89 Mood good tonight.Co ntinue risperdal 25 mg ER IM q 14 days, divalproex 500 mg ER qd, and nortriptyl ine 10 mg qdMonitor mood.Consu lt psych prn Essential hypertension 77495305 I10 BP in good control since here on furosemide 20 mg qd and lisinopril 5 mg qdMonitor BP and labs Hyperlipidemia 46211576 E78.49 Continue simvastati n 20 mg qdMonitor labs as outpt. Constipation 41672464 K5 9.09 Good bowel sounds, but still hasn't had BM (x 5 days).Incr ease colace to 100 mg BID and miralax 17 gms BID.Monito r bowel function Gastroesop hageal reflux disease 421689669 K21.9 No current sxs.Contin ue pantoprazo le 20 mg qdMonitor for GI sxs Osteoarthritis 252084533 M15.0 Continue pain meds and PT/OT as above.Aleena tor Pulmonary embolism 55233 003 I26.99 S/P BLE DVT and PE with thrombecto my.Continu e eliquis 10 mg BID until 12/13 then 5 mg BIDMonitor resp sxs and signs of bleeding. Deep venou s thrombosis of lower extremity 960536932 I82.409 As above. [id number] SHAWNA PRAKASH [address] [address] 12/15/2023 11:08:58 12/19/2023 14:49:55 Closed fracture of hip 274344904 S72.092A subcapital left femur neck fractures/ p left hemiarthro plastycont inue tramadol 25 mg dailytylen ol 650mg prnfollow up with orthoPT/OT eval and treat Anticoagulant therapy 18 3093679 Z79.01 recent hx of bilat Lower extremity DVT and PEcontinue eliquis 10 mg BID until 12/13 then 10 mg BIDmonitor for abnormal bruising or bleeding Bipolar disorder 9389366 4 F31.9 continue risperdal 25 mg ER IM Q14 dayscontin ue divalproex 500 mg ER dailynortr iptyline 10 mg dailymonit or for mood and behavior changes.ps ych prn Essential hypertension 69327690 I10 continue furosemide 20 mg daily and lisinopril 5 mgmonitor BP [id number] SHAWNA PRAKASH [address] [address] 12/18/2023 10:43:55 12/23/2023 14:38:58 Closed fracture of hip 644820076 S72.092A subcapital left femur neck fractures/ p left hemiarthro plastycont inue tramadol 25 mg dailytylen ol 650mg prnfollow up with orthoPT/OT Anticoagulant therapy 18 2149264 Z79.01 recent hx of bilat Lower extremity DVT and PEcontinue eliquis 5 mg BIDmonitor for abnormal bruising or bleeding Bipolar disorder 8014800 4 F31.9 continue risperdal 25 mg ER IM Q14 dayscontin ue divalproex 500 mg ER dailynortr iptyline 10 mg dailymonit or for mood and behavior changes.ps ych prn Essential hypertension 34788245 I10 continue furosemide 20 mg daily and lisinopril 5 mgmonitor BP [id number] SHAWNA PRAKASH [address] [address] 12/22/2023 12:46:20 12/23/2023 15:34:36 Closed fracture of hip 374052618 S72.092A subcapital left femur neck fractures/ p left hemiarthro plastycont inue tramadol 25 mg dailytylen ol 650mg prnfollow up with orthoPT/OT Anticoagulant therapy 18 5003602 Z79.01 recent hx of bilat Lower extremity DVT and PEcontinue eliquis 5 mg BIDmonitor for abnormal bruising or bleeding Bipolar disorder 0235356 4 F31.9 continue risperdal 25 mg ER IM Q14 dayscontin ue divalproex 500 mg ER dailynortr iptyline 10 mg dailymonit or for mood and behavior changes.ps ych prn Essential hypertension 84778853 I10 continue furosemide 20 mg daily and lisinopril 5 mgmonitor BP [id number] ELICEO REED, SHAWNA REYES DEWAYNE [address] [place] [address] rd [place] [address] 12/26/2023 09:50:52 12/30/2023 10:19:14 Closed fracture of hip 360225828 S72.092A subcapital left femur neck fractures/ p left hemiarthro plastycont inue tramadol 25 mg dailytylen ol 650mg prnfollow up with orthoPT/OT Constipation 24573095 K5 9.00 see hpiabdomin al KUB orderedinc rease water intake.con tinue miralax 17 gm daily and colace 100 mg dailymonit or bowel sounds Low blood pressure 72417 003 I95.9 sbp reported in the 80's with dizzinessm idodrine 5 mg prn TIDupdated provider with new changespla ce parameter on lisonpril Dysuria 32502353 R30.0 straight cath for UA with c&s Health Concerns Section Related Observation LastModified by Organization Detai ls LastModified Time None Recorded Concern Status LastModified by Organization Details LastModified Time None Recorded Advance Directives Directive Y: Payers Insurance Date Sequence Insurance Name Policy Number Policy Ramirez Covered Member ID Ramirez Member ID Guarantor Name 01/14/2024 2 [place] [id number] Jing Bautista [id number] Jing Bautista 01/14/2024 1 [place] [employer] Jing Bautista [id number] Jing Bautista Notes Date Note Type Note Provider Name and Address Organization Details Recorded Time 12/11/2023 text/html This is a 78 yo woman who is here for rehab after an acute hospitalization for a left femur fx after a fall from lightheadedness, course complicated by a PE with thrombectomy and IVC filter placement, and NSTEMI.She presented to the [facility] on 11/28 after a fall when [...] left femoral neck fracture, as well as [id number] osteoarthritis of the bilateral hips and large [...] and bipolar disorder. Kinza Aguilar MD [address] [facility], [address], [place], [address], [employer] 12/24/2023 18:50:46 12/15/2023 text/html ROS as [...] today acute rounding visit. SHAWNA PRAKASH [address] [facility], [address], [place], [address], [facility] 12/17/2023 19:59:44 12/18/2023 text/html ROS as [...] no acute nursing concerns. SHAWNA PRAKASH [address] [facility], [address], [place], [address], [employer] [facility] 12/19/2023 20:25:02 12/22/2023 text/html ROS as noted [...] today acute rounding visit. SHAWNA PRAKASH [address] [facility], [address], [place], [address], [employer] [facility] 12/22/2023 18:26:10 12/26/2023 text/html ROS as noted [...] r/o UTI, ord KUB and monitor VS. SHAWAN PRAKASH [address] [facility], [address], [place], [address], [facility] 12/26/2023 15:55:34 OBGyn Episode No OBEpisode recorded.
--- OUTSIDE RECORDS SUMMARY | 2025-07-08 21:21 | XMS_ITS | Patient Health Record ---
Author Organization [facility] Address [address] [place] [address] Care Team Providers Care Biometry Teacher Name Role Phone Katina Zuniga Primary Care Provider Jewela Kylie Palmer Unavailable [phone] Reason For Referral No Information Medications Medication SIG (Take, Route, Frequency, Duration) Notes Start Date End Date Status Omeprazole 20 MG Orally Act alfredo atenolol 25mg Active Simvastatin 20 MG Orally Ac tive Nortriptyline HCl 50 MG Orally Active De Smet Carbonate 300 MG Orally Active Eliquis 5 MG Orally Temporary Not-Taking Social History Tobacco Use: Social History Observation Description Date Details (start date - stop date) Former Smoker NA - NA Tobacco Use/Smoking Question Answer Notes Are you a: former smoker Additional Findings: Tobacco Non-User Current no n-smoker Alcohol Screen Question Answer Notes Did you have a drink containing alcohol in the p ast year? Yes Points 0 Interpretation Negative Tobacco use other than smoking: Question Answer Notes Are you an other tobacco user? No Problems No Known Problems Plan Of Treatment No Information Insurance Providers Payer Name Payer Address Payer Phone Subscriber Number Group Number Insured Name Patient Relationship to Insured Coverage Start Date Coverage End Date Medicare National [facility] [address] [place] [address] [id number] MicheleJing Self - patient is the insured [employer] [facility] [address] [place] [address] [id number] Jing Bautista Self - patient is the insured Medical (General) History Medical History History ICD Code Back,Hip,and Knee pain Cancer High blood pressure Measles Mumps Chicken pox Surgical History Surgery Date(Month/Year) Breast Cancer Double Masectomy/ Reconstr uction [phone] Hospitalization History Reason Date(Month/Year) [facility] ER fall & blood clot 2017
--- OUTSIDE RECORDS SUMMARY | 2025-07-08 21:21 | XMS_ITS | Encounter Summary ---
Author Organization [facility], Address [address] [place] [address] Phone Care Team Providers Care Cisco Unified Communications Engineer Name Role Phone Villa Jiang MD Primary Care Provider Unav ailable Encounter Details Date Type Department Care Team (Late st Contact Info) Description 05/03/2022 Documentation Only [facility], [address] [place] [address] Michael Regan [place] [address] [place] [phone] Social History Tobacco Use Types Packs/Day Years [...] on filedocumented in this encounter Care Teams Cisco Unified Communications Engineer Relationship Specialty Start Date End Date Villa Jiang MD [address] [place] [address] PCP - General Internal Medicine 03/19/23 documented as of this encounter
--- OUTSIDE RECORDS SUMMARY | 2025-07-08 21:21 | XMS_ITS | Encounter Summary ---
Author Organization [facility], Address [address] [place] [address] Phone Care Team Providers Care German Teacher Name Role Phone Villa Jiang MD Primary Care Provider Unav ailable Encounter Details Date Type Department Care Team (Late st Contact Info) Description 04/28/2024 Documentation Only [facility], [address] [place] [address] Felicitas Medellin [address] [place] [phone] Social History Tobacco Use Types Packs/Day Years [...] on filedocumented in this encounter Care Teams German Teacher Relationship Specialty Start Date End Date Villa Jiang MD [address] [place] [address] PCP - General Internal Medicine 03/19/23 documented as of this encounter
--- OUTSIDE RECORDS SUMMARY | 2025-07-08 21:21 | XMS_ITS | Encounter Summary ---
Author Organization [facility], Address [address] [place] [address] Phone Care Team Providers Care Trade Mark Examiner Name Role Phone Villa Jiang MD Primary Care Provider Unav ailable Encounter Details Date Type Department Care Team (Late st Contact Info) Description 12/10/2023 Documentation Only [facility], [address] [place] [address] Felicitas Medellin [address] [place] [phone] Social History Tobacco Use Types Packs/Day Years [...] on filedocumented in this encounter Care Teams Trade Mark Examiner Relationship Specialty Start Date End Date Villa Jiang MD [address] [place] [address] PCP - General Internal Medicine 03/19/23 documented as of this encounter
== END 2025-07-08 14:23 | disposition home or self-care (01) ==
LOC: HO.MMNH3L 14:22
PROVIDERS: Visit Provider Physician Assistant Medical
DX: N18.30 Chronic kidney disease, stage 3 unspecified (principal)
CPT/HCPCS: 81001; 87086; 87088; 87186

== ENCOUNTER 2025-07-31 21:46 | Inpatient (IN) | payer MEDICARE, MEDICAID, SELFPAY ==
--- NOTE | ~2025-07-31 | CT_ITS ---
CLINICAL HISTORY: abd pain and distention, fever CT abdomen and pelvis with contrast Comparison: CR - XR KUB - 07/31/25 23:[address]/OR - CT ABDOMEN PELVIS WITHOUT THEN WITH IV CONTRAST - 12/29/23 17:30 EDT Findings: Minimal bibasilar atelectasis. There is partial visualization of bilateral breast implants. Mild artifact present related to motion and the patient's arms. Small gallstones visualized within the gallbladder lumen. No CT evidence for acute cholecystitis. The solid organs are within normal limits. No hydronephrosis or hydroureter. Contrast is identified within the left renal collecting system. A small amount of radiopaque density is identified dependently at the left renal pelvis which may represent contrast. No bowel obstruction, pneumoperitoneum, or pneumatosis. Small hiatal hernia. [id number] colonic stool burden present with a large rectal stool burden. There is perirectal edema. Contrast is identified within the bowel from the level of the stomach to the distal ileum. Postsurgical changes of the bowel are present at the right lower abdominal quadrant. No dilated small bowel loops present. Limited visualization of the pelvic structures related to displacement by the large rectal stool burden. The uterus appears to be displaced anteriorly. Dunaway catheter in place within the bladder lumen. The bladder is anterior displaced by the distended rectum. The bladder is collapsed, limiting its evaluation. Small, fat containing bilateral inguinal hernias are present. Nonvisualization of the appendix. No acute fracture visualized. Left hip prosthesis partially visualized. IMPRESSION: 1. Wpsptlyc-[id number] colonic stool burden present with a large rectal stool burden. There is perirectal edema, consistent with stercoral colitis. No bowel obstruction. 2. Cholelithiasis. No CT evidence for acute cholecystitis. 3. Small hiatal hernia. This document has been electronically signed by: Ernesto Harris MD on 08/01/2025 03:43:47
--- NOTE | ~2025-07-31 | XR_ITS ---
CLINICAL HISTORY: CP 1 view chest x-ray. Comparison: CR/SR - XR CHEST 2 VIEWS - 12/29/23 15:[address]/[place]/SR - CT CHEST ANGIOGRAPHY WITH IV CONTRAST - 11/29/23 19:16 EDT Findings: There is minimal blunting of the left costophrenic angle, unchanged, most consistent with mild prominence of the left epicardial fat pad. No focal pulmonary consolidation, pneumothorax, or significant pleural effusion. Heart size normal. Impression: 1. No acute cardiopulmonary process. No focal pulmonary consolidation. This document has been electronically signed by: Ernesto Harris MD on 07/31/2025 23:30:37
--- NOTE | ~2025-07-31 | XR_ITS ---
EXAMINATION: XR ABDOMEN KUB CLINICAL INDICATION: abdominal distention/ pain/ stercoral colitis COMPARISON: Previous CT of the abdomen and pelvis most recent from yesterday and KUB July 31, 2025 TECHNIQUE: AP view of the abdomen. FINDINGS: Severe constipation with large stool burden in the rectosigmoid region. Diffuse slightly dilated small and large bowel. This does not appear appreciably changed. No free air. No suspicious calcifications. IVC filter unchanged position. Degenerative changes of the spine and right hip. Left hip replacement. XR/XR KUB IMPRESSION: Severe constipation and likely dilated loops of small and large bowel similar to prior exams. Electronically signed by: Татьяна Bush MD 08/02/2025 09:15 AM [facility]
--- NOTE | ~2025-07-31 | CT_ITS ---
EXAMINATION: CT HEAD WITHOUT CONTRAST CLINICAL INFORMATION: AMS, lethargy COMPARISON: November 29, 2023. TECHNIQUE: Contiguous axial imaging was performed from the skull base to vertex without intravenous administration of contrast. This CT examination was performed using dose optimization techniques as appropriate, variously including the following: *Automated exposure control *Adjustment of mA and/or kV according to patient size (this includes techniques or standardized protocols for targeted exams where dose is matched to indication/reason for exam; i.e. extremities or head) *Use of iterative reconstruction technique DLP: 821 mGy-cm FINDINGS: No acute intracranial hemorrhage, mass effect, midline shift, hydrocephalus or herniation. Bilateral multifocal patchy and confluent deep periventricular white matter hypodensities involving centrum semiovale and higuera radiata. Schaefer-white matter differentiation is normal. Prominence of the extra-axial CSF spaces cerebral sulci and ventricles involving mostly the bifrontal temporal lobes. Posterior cranial fossa contents demonstrated no acute hemorrhage or mass effect. Normal position of the cerebellar tonsils. Sellar/suprasellar region demonstrated no gross masses. No air-fluid levels in the paranasal sinuses. Tympanic cavities and mastoid cells are aerated. CT/CT head/brain wo IV con IMPRESSION: No acute intradural hemorrhage. White matter disease likely related to small vessel occlusive disease. Atrophy, bifrontal temporal lobes. Electronically signed by: Azam Solis MD 08/03/2025 09:53 AM [facility]
--- NOTE | ~2025-07-31 | XR_ITS ---
CLINICAL HISTORY: Severe constipation 1 view abdomen Comparison: 07/31/2025 Findings: Normal bowel gas pattern. Fairly large stool quantity. No abnormal calcifications. No pneumoperitoneum or pneumatosis. Bones unremarkable. An IVC filter is in stable position. Impression: 1. Fairly large colonic stool burden. Otherwise, unremarkable bowel gas pattern This document has been electronically signed by: Tommy Yoo MD on 08/06/2025 13:18:17
--- NOTE | ~2025-07-31 | XR_ITS ---
CLINICAL HISTORY: constipation 1 view abdomen Comparison: None provided Findings: No free intraperitoneal air visualized. Gas and stool filled loops of colon identified throughout the abdomen, limiting evaluation/visualization of the small bowel. Dilation of small-bowel loops is not excluded on this examination. Gas is visualized over the expected location of the rectum. IVC filter in place over the mid abdomen to the right of the midline. No acute fractures visualized. IMPRESSION: 1. Mild distention of the colon with gas and stool throughout the abdomen, limiting evaluation of the small bowel. Dilated small bowel loops can not be excluded on this examination. If there is clinical concern for a bowel obstruction or bowel ileus, recommend CT examination for further evaluation. This document has been electronically signed by: Ernesto Harris MD on 07/31/2025 23:30:47
[2025-07-31 21:55] VITALS: BP 102/49; BP 126/49; PULSE 92; PULSE 98; RESP 23; TEMP 36.8; O2SAT 88; O2SAT 89; BMI 33.4
--- NOTE | 2025-07-31 21:58 | ECG_ITS ---
Test Reason : SOB Blood Pressure : */* mmHG Vent. Rate : 101 BPM Atrial Rate : 101 BPM P-R Int : 142 ms QRS Dur : 92 ms QT Int : 372 ms P-R-T Axes : 10 17 -9 degrees QTcB Int : 482 ms Sinus tachycardia Inferior infarct , age undetermined Abnormal ECG When compared with ECG of 29-Dec-2023 18:35, Inferior infarct is now Present Inverted T waves have replaced nonspecific T wave abnormality in Inferior leads QT has lengthened Referred By: Generic ED Physician Electronically Signed By: MORNOE SUAREZ MD
--- OUTSIDE RECORDS SUMMARY | 2025-07-31 22:26 | XMS_ITS | Data Portability ---
Author Organization [facility], Main Office Address [address] [address] [address] [place] [address] Care Team Providers Care Video Production Assistant Name Role Phone ERIC BUCHANAN 1ST [...] Address Organization Details Recorded Time Essential hypertension 64153331 Active 2023 SHAWNA PRAKASH [address], [address], [place], [address], [facility] 4 18:08:53 Closed fracture of hip 921665805 Active 2023 SHAWNA PRAKASH [address], [address], [place], [address], [facility] 4 18:09:20 Hyperlipidemia 28036854 Active 2023 SHAWNA PRAKASH [address], [address], [place], [address], [facility] 4 18:09:33 Bipolar disorder 91260027 Active 2023 SHAWNA PRAKASH [address], [address], [place], [address], [facility] 4 18:09:40 Cognitive disorder 552416728 Active 2023 SHAWNA PRAKASH [address], [address], [place], [address], [facility] 4 18:09:47 Osteoarthritis 645713121 Active 2023 SHAWNA PRAKASH [address], [address], [place], [address], [facility] 4 18:10:03 Acute non-ST segment elevation myocardial infarction 548320331 Active 2023 SHAWNA PRAKASH [address], [address], [place], [address], [facility] 4 18:11:00 Gastroesophage al reflux disease 784730646 Active 2023 SHAWNA PRAKASH [address], [address], [place], [address], [facility] 4 18:11:31 Constipation 73519651 Active 2023 SHAWNA PRAKASH [address], [address], [place], [address], [facility] 4 18:53:26 Pulmonary embolism 73805061 Active 2023 SHAWNA PRAKASH [address], [address], [place], [place], [address], [facility] 4 18:53:38 Deep venous thrombosis of lower extremity 858274891 Active 2023 SHAWNA PRAKASH [address], [address], [place], [address], [facility] 4 18:53:58 Anticoagulant therapy Active 2023 SHAWNA PRAKASH [address], [place], [place], [address], [facility] 4 18:55:47 Closed fracture of hip 320737491 Active 2023 Kinza Aguilar MD [address] [facility], [address], [place], [address], [facility] 4 18:40:28 Problem Notes None recorded. [...] rate Respiratory rate Body temperature Oxygen saturation Systolic And Diastolic Provider Name and Address Organization Details Last Updated DateTime 4 160.02 cm 30.6 kg/m2 38062.7 6 g 90 /min 18 /min 97.9 [degF] 92 % 124/72 mm[Hg] Kniza Aguilar MD [address] [facility], [address], [place], [address], [facility] 4 18:48:48 Date Recorded Body height Body temperature Respiratory rate Heart rate Oxygen saturation Systolic And Diastolic Provider Name and Address Organization Details Last Updated DateTime 4 160.02 cm 97.9 [degF] 18 /min 72 /min 96 % 101/59 mm[Hg] SHAWNA PRAKASH [address] [facility], [address], [place], [address], [facility] 4 20:20:42 Date Recorded Body height Heart rate Respiratory rate Body temperature Oxygen saturation Systolic And Diastolic Provider Name and Address Organization Details Last Updated DateTime 4 160.02 cm 82 /min 18 /min 97.9 [degF] 95 % 108/61 mm[Hg] SHAWNA PRAKASH [address] [place] [address], [facility] [address], [place], [address], [facility] 4 18:13:08 Date Recorded Body height Provider Name an d Address Organization Details Last Updated DateTime 12/26/2023 160.02 cm SHAWNA PRAKASH [address] [place] [address], [facility] [address], [place], [address], [facility] 12/26/2023 15:43:49 Social History Question Answer Notes LastModified by Organizat ion Details LastModified Time Tobacco Smoking Status Former Smoker quit 2012 Kinza Aguilar MD [address] [facility], [facility] [address], [place], [address], [facility] 12/11/2023 18:53:26 Do You Have An Advance Directive? Yes Information not available 12/11/2023 What Is Your Code Status? DNR/DNI Information not available 12/11/2023 Where Do You Live? Condo Information not available 12/11/2023 Legal Guardian? No Informati on not available 12/11/2023 Do You Have A Medical Power Of [employer]? Yes Information not available 12/11/2023 What Was [...] Time Pneumococcal conjugate PCV 13 6 completed [facility] 12/10/2023 16:53:02 Pneumococcal conjugate PCV20, polysaccharide CPQ950 conjugate, adjuvant, PF 3 completed [facility] 12/10/2023 16:53:17 influenza, unspecified formulation 2 completed [facility] 12/10/2023 16:53:32 influenza, unspecified formulation 3 completed [facility] 12/10/2023 16:53:42 SARS-COV-2 (COVID-19) vaccine, UNSPECIFIED 1 completed Lori Montrell [facility] 12/10/2023 16:53:56 SARS-COV-2 (COVID-19) vaccine, UNSPECIFIED 1 completed [facility] 12/10/2023 16:54:05 SARS-COV-2 (COVID-19) vaccine, UNSPECIFIED 1 completed [facility] 12/10/2023 16:54:12 SARS-COV-2 (COVID-19) vaccine, UNSPECIFIED 2 completed Lorimele Stock [facility] 12/10/2023 16:54:19 SARS-COV-2 (COVID-19) vaccine, UNSPECIFIED 2 completed Lori [facility] 12/10/2023 16:54:27 SARS-COV-2 (COVID-19) vaccine, UNSPECIFIED 3 completed Lori [facility] 12/10/2023 16:54:35 zoster live 3 completed [facility] 12/10/2023 16:54:55 zoster recombinant 9 completed [facility] 12/10/2023 16:55:13 zoster recombinant 9 [facility] 12/10/2023 16:55:24 Past Encounters Encounter ID Performer Location Encounter Start Date Encounter Closed Date Diagnosis/Indication Diagnosis SNOMED-CT Code Diagnosis ICD10 Code Diagnosis IMO Codes Diagnosis Note [id number] SHAWNA PRAKASH [address] [place] [address] 12/10/2023 09:43:49 12/16/2023 11:19:07 Closed fracture of hip 124129563 S72.092A subcapital left femur neck fractures/ p left hemiarthro plastycont inue tramadol 25 mg dailytylen ol 650mg prnfollow up with orthoPT/OT eval and treat Anticoagulant therapy 18 6303719 Z79.01 recent hx of bilat Lower extremity DVT and PEcontinue eliquis 10 mg BID until 12/13 then 10 mg BIDmonitor for abnormal bruising or bleeding Bipolar disorder 6486849 4 F31.9 continue risperdal 25 mg ER IM Q14 dayscontin ue divalproex 500 mg ER dailynortr iptyline 10 mg dailymonit or for mood and behavior changes.ps ych prn Essential hypertension 04129719 I10 continue furosemide 20 mg daily and lisinopril 5 mgmonitor BP Hyperlipidemia 34028840 E78.5 continue simvastati n 20 mg daily Constipation 35259007 K5 9.00 continue miralax 17 gm daily and colace 100 mg dailymonit or bowel sounds Gastroesop hageal reflux disease 918173513 K21.9 protonix 20 mg dailymonit or for GI upset Osteoarthritis 922940969 M19.90 continue tramadol and tylenol prn. [id number] MD ERIC Lopez [address] [place] [address] 12/11/2023 18:35:49 12/26/2023 15:12:27 Closed fracture of hip 234693445 S72.092D Recovering slowly.Nee ds PT/OT for strengthen ing, balance, gait training, safety and function.C ontinue fall precaution s.Monitor for safety.Con tinue tramadol 25 mg q 6 hrs prn and APAP 650 mg q 6 hrs prn.Monito r pain control and progress.F /U with ortho as planned. Bipolar disorder 3592380 4 F31.89 Mood good tonight.Co ntinue risperdal 25 mg ER IM q 14 days, divalproex 500 mg ER qd, and nortriptyl ine 10 mg qdMonitor mood.Consu lt psych prn Essential hypertension 26735917 I10 BP in good control since here on furosemide 20 mg qd and lisinopril 5 mg qdMonitor BP and labs Hyperlipidemia 12826598 E78.49 Continue simvastati n 20 mg qdMonitor labs as outpt. Constipation 79865777 K5 9.09 Good bowel sounds, but still hasn't had BM (x 5 days).Incr ease colace to 100 mg BID and miralax 17 gms BID.Monito r bowel function Gastroesop hageal reflux disease 622350878 K21.9 No current sxs.Contin ue pantoprazo le 20 mg qdMonitor for GI sxs Osteoarthritis 362604098 M15.0 Continue pain meds and PT/OT as above.Aleena tor Pulmonary embolism 29669 003 I26.99 S/P BLE DVT and PE with thrombecto my.Continu e eliquis 10 mg BID until 12/13 then 5 mg BIDMonitor resp sxs and signs of bleeding. Deep venou s thrombosis of lower extremity 479686539 I82.409 As above. [id number] ELICEO REED, TEACHING YOUNG [address] [address] 12/15/2023 11:08:58 12/19/2023 14:49:55 Closed fracture of hip 757034658 S72.092A subcapital left femur neck fractures/ p left hemiarthro plastycont inue tramadol 25 mg dailytylen ol 650mg prnfollow up with orthoPT/OT eval and treat Anticoagulant therapy 18 4510056 Z79.01 recent hx of bilat Lower extremity DVT and PEcontinue eliquis 10 mg BID until 12/13 then 10 mg BIDmonitor for abnormal bruising or bleeding Bipolar disorder 0707677 4 F31.9 continue risperdal 25 mg ER IM Q14 dayscontin ue divalproex 500 mg ER dailynortr iptyline 10 mg dailymonit or for mood and behavior changes.ps ych prn Essential hypertension 00872186 I10 continue furosemide 20 mg daily and lisinopril 5 mgmonitor BP [id number] SHAWNA PRAKASH [address] [address] 12/18/2023 10:43:55 12/23/2023 14:38:58 Closed fracture of hip 081691256 S72.092A subcapital left femur neck fractures/ p left hemiarthro plastycont inue tramadol 25 mg dailytylen ol 650mg prnfollow up with orthoPT/OT Anticoagulant therapy 18 8741282 Z79.01 recent hx of bilat Lower extremity DVT and PEcontinue eliquis 5 mg BIDmonitor for abnormal bruising or bleeding Bipolar disorder 8556749 4 F31.9 continue risperdal 25 mg ER IM Q14 dayscontin ue divalproex 500 mg ER dailynortr iptyline 10 mg dailymonit or for mood and behavior changes.ps ych prn Essential hypertension 63227825 I10 continue furosemide 20 mg daily and lisinopril 5 mgmonitor BP [id number] SHAWNA PRAKASH [address] [address] 12/22/2023 12:46:20 12/23/2023 15:34:36 Closed fracture of hip 143491836 S72.092A subcapital left femur neck fractures/ p left hemiarthro plastycont inue tramadol 25 mg dailytylen ol 650mg prnfollow up with orthoPT/OT Anticoagulant therapy 18 8442042 Z79.01 recent hx of bilat Lower extremity DVT and PEcontinue eliquis 5 mg BIDmonitor for abnormal bruising or bleeding Bipolar disorder 2014387 4 F31.9 continue risperdal 25 mg ER IM Q14 dayscontin ue divalproex 500 mg ER dailynortr iptyline 10 mg dailymonit or for mood and behavior changes.ps ych prn Essential hypertension 54869417 I10 continue furosemide 20 mg daily and lisinopril 5 mgmonitor BP [id number] SHAWNA PRAKASH DEWAYNE [address] [place] [address] rd [place] [address] 12/26/2023 09:50:52 12/30/2023 10:19:14 Closed fracture of hip 782118372 S72.092A subcapital left femur neck fractures/ p left hemiarthro plastycont inue tramadol 25 mg dailytylen ol 650mg prnfollow up with orthoPT/OT Constipation 92021591 K5 9.00 see hpiabdomin al KUB orderedinc rease water intake.con tinue miralax 17 gm daily and colace 100 mg dailymonit or bowel sounds Low blood pressure 63439 003 I95.9 sbp reported in the 80's with dizzinessm idodrine 5 mg prn TIDupdated provider with new changespla ce parameter on lisonpril Dysuria 51091030 R30.0 straight cath for UA with c&s Health Concerns Section Related Observation LastModified by Organization Detai ls LastModified Time None Recorded Concern Status LastModified by Organization Details LastModified Time None Recorded Advance Directives Directive Y: Payers Insurance Date Sequence Insurance Name Policy Number Policy Ramirez Covered Member ID Ramirez Member ID Guarantor Name 01/14/2024 2 [place] [id number] Jing Bautista [id number] Jing Michele 01/14/2024 1 [place] [employer] Jing Bautista [id number] Jing Bautista Notes Date Note Type Note Provider Name and Address Organization Details Recorded Time 12/11/2023 text/html This is a 78 yo woman who is here for rehab after an acute hospitalization for a left femur fx after a fall from lightheadedness, course complicated by a PE with thrombectomy and IVC filter placement, and NSTEMI.She presented to the [facility] ED on 11/28 after a fall when [...] left femoral neck fracture, as well as [id number] osteoarthritis of the bilateral hips and large [...] and bipolar disorder. Kinza Aguilar MD [address] [facility], [address], [place], [address], [facility] 12/24/2023 18:50:46 12/15/2023 text/html ROS as [...] today acute rounding visit. SHAWNA PRAKASH [address] [facility], [address], [place], [address], [facility] 12/17/2023 19:59:44 12/18/2023 text/html ROS as [...] no acute nursing concerns. SHAWNA PRAKASH [address] [facility], [address], [place], [address], [facility] 12/19/2023 20:25:02 12/22/2023 text/html ROS as noted [...] today acute rounding visit. SHAWNA PRAKASH [address] [facility], [address], [place], [address], [facility] 12/22/2023 18:26:10 12/26/2023 text/html ROS as noted [...] r/o UTI, ord KUB and monitor VS. ELICEO REED, TEACHING YOUNG [address] [facility], [address], [place], [address], [facility] [employer] 12/26/2023 15:55:34 OBGyn Episode No OBEpisode recorded.
--- OUTSIDE RECORDS SUMMARY | 2025-07-31 22:26 | XMS_ITS | Data Portability ---
Author Organization [place] [facility] Address [address] [place] [address] Care Team Providers Care Cutter Inspector Name Role Phone TAYLOR FAJARDO Primary Care [...] ago. I do not have access to [facility] to review labs and prior records. [...] care of this patient according to [facility]'s infection prevention protocols. [email or web address] Not available 08/30/2022 15:33:04 Plan of Treatment Reminders Order Date Submit Date Provider Last Modified By Organization Details Last Modified Time Details Appointments None recorded. Lab None recorded. Referral None recorded. Procedures None recorded. Surgeries None recorded. Imaging None recorded. Medication Orders triamcinolo ne acetonide 0.1 % topical cream 2022 023 [facility] #[id number], [address] [place], [address], 15:03:34 Patient TargetsNo targets recorded. Patient InstructionsNo instructions recorded. Reason for Referral None Reported. Procedures Surgical History Date Name Laterality Status Provider Name and Address Organization Details Recorded Time excision of bilateral breasts completed PHIL Mcbride [address], [place], [address], [place] [facility] 08/30/2022 14:48:21 Imaging Results None recorded. [...] /min 16 /min 98 [degF] 94 % 118/62 mm[Hg] Not Available [facility] 14:47:18 Social History Question Answer Notes LastModified by [employer] Details LastModified Time Tobacco Smoking Status Former Smoker PHIL Mcbride [address], [place], [address], [place] [facility] 08/30/2022 14:47:30 Do You Have An Advance Directive? Yes [email or web address] Information not available 08/30/2022 What Is Your Code Status? DNR [email or web address] Information not available 08/30/2022 Excessive Alcohol Or Drug Use No Information not available 08/30/2022 Does This Patient Have A PCP? Yes [email or web address] Information not available 08/30/2022 Has The Patient Seen Their PCP In The Past 6 Months? Yes [email or web address] Information not available 08/30/2022 Is This Patient In Hospice? No [email or web address] Information not available 08/30/2022 Sex: Unknown Functional Status Question Answer Note LastModified by [employer] Details LastModified Time Do you use any illicit or recreational drugs? No [email or web address] Information not available 08/30/2022 What is your level of alcohol consumption? None [email or web address] Information not available 08/30/2022 Mental Status None recorded. Family History Relationship Description Onset Age of this Age Resolved Age Notes LastModified by Organization Details LastModified Time Father Coronary arterioscler osis [email or web address] Not available 08/30 14:45:38 Medical History Condition Response Coronary Artery Disease N Parkinson's Disease N Depression N COPD N Hypothyroidism N A-fib N Diabetes Y [...] ICD10 Code Diagnosis IMO Codes Diagnosis Note [id number] [facility] [address] [place] [address] 08/30/2022 14:38:44 09/01/2022 19:29:15 Peripheral edema 363397631 R60.9 Atopic dermatitis 072654 01 L20.9 Health Concerns Section Related Observation LastModified by Organization Detai ls LastModified Time None Recorded Concern Status LastModified by Organization Details LastModified Time None Recorded Advance Directives Directive Y: Payers Insurance Date Sequence Insurance Name Policy Number Policy Ramirez Covered Member ID Ramirez Member ID Guarantor Name 09/23/2022 2 [place] [id number] Jing Cadden [id number] Jing Cadden 08/30/2022 2 [place] [id number] Jing Cadden [id number] Jing Cadden 08/30/2022 2 [place] [id number] Jing Cadden [id number] Jing Cadden 08/30/2022 2 [place] [id number] Jing Cadden [id number] Jing Cadden 09/23/2022 1 [place] [employer] Jing A Cadden [id number] Jing Cadden 08/29/2022 1 *SELF PAY* Jing Cadden [id number] Jing Cadden Notes Date Note Type Note [...] results yet. PHIL Mcbride [address], [place], [address], [place] [facility] 08/30/2022 15:33:18 OBGyn Episode No OBEpisode recorded.
[2025-07-31 22:34] LABS: MANUAL DIFF FLAG NO
[2025-07-31 22:36] LABS: Hematocrit 34.5 % (37.0-47.0); Hemoglobin 10.8 g/dl (12.0-16.0); Imm Gran Abs Auto 0.05 X10*3/uL (0.00-0.03); Imm Gran Pct Auto 0.4 % (0.0-0.4); Lymphocytes Absolute Auto 1.6 X10*3/uL (1.2-4.9); Mean Corpuscular HGB Conc 31.3 g/dl (31.0-35.0); Mean Corpuscular Hemoglobin 28.6 pg (27.0-33.0); Mean Corpuscular Volume 91.3 fL (80.0-98.0); NRBC Abs Auto 0.000 X10*3/uL (0.0-0.012); NRBC Pct Auto 0.0 /100WBC (0.0-0.2); Platelet Count 296 X10*3/uL (160-400); Red Blood Count 3.78 X10*6/uL (4.20-5.50); White Blood Count 13.3 X10*3/uL (4.8-10.8)
[2025-07-31 22:46] LABS: INTERNATIONAL NORM RATIO 1.4 (0.9-1.1); Prothrombin Time 17.2 SEC (11.2-13.5)
[2025-07-31 22:48] LABS: D Dimer High Sensitivity 155 NG/ML
[2025-07-31 22:50] LABS: Alanine Aminotransferase < 6 U/L (0-31); Albumin Level 3.7 g/dL (3.5-5.0); Alkaline Phosphatase 62 U/L (39-117); Anion Gap 17 (12-20); Aspartate Amino Transferase 15 U/L (5-31); Blood Urea Nitrogen 20 mg/dL (9-16); Calcium 10.1 mg/dL (8.4-10.2); Carbon Dioxide 30 mmol/L (22-29); Chloride 100 mmol/L (96-108); Creatinine Clr Calc Pharmacy 44.5; Estimated Glomerular Filt Rate 47; Potassium 3.6 mmol/L (3.3-5.1); Sodium 143 mmol/L (135-145); Total Protein 7.0 g/dL (6.5-8.0)
[2025-07-31 22:54] LABS: NT Pro B Type Natriuretic Pept 226.8 pg/mL (<300)
[2025-07-31 22:55] LABS: Troponin-I High Sensitivity 3.0 ng/L (<3.5-17.0)
[2025-07-31 23:11] LABS: Resp Syncy Virus RNA Qual PCR NEGATIVE (Negative); SARS COV2 PCR INHOUSE NEGATIVE (Negative)
--- NOTE | 2025-07-31 23:17 | ED_ITS ---
HPI - SOB/Dyspnea General Chief Complaint: Dyspnea Stated Complaint: SOB, 2L on nc 93% Time Seen by Provider: 07/31/25 22:05 Source: patient, EMS, RN notes reviewed and old records reviewed Mode of arrival: EMS Limitations: altered mental status History of Present Illness ED Provider: Dr. Rakel Lund HPI Narrative: 80-year-old female brought in by EMS for acute shortness of breath and hypoxia (SpO2 88 % on room air, improved to 96 % on 2 L O2). She reports rectal pain (?my rear end hurts?) present for several weeks and constipation; states she is able to pass stool but feels abdominal bloating/distention. She is incontinent of urine and feels she cannot completely empty her bladder. EMS recorded a low- grade fever of 100.3 ?F prior to arrival. On arrival to ED she was afebrile (98.2 ?F) but appeared diaphoretic. She is on chronic anticoagulation for a history of blood clots. Denies history of Crohn?s disease. Past medical history notable for GERD, diabetes mellitus, hypertension, and prior colon cancer. Related Data Home Medications ?Medication ?Instructions ?Recorded ?Confirmed folic acid 1 mg tablet 1 mg PO DAILY 09/30/2202/04 risperidone microspheres 25 mg/2 25 mg IM Q14D 3 02/05/24 mL intramuscular susp,ext release (Risperdal Consta) nortriptyline 10 mg capsule 10 mg PO BEDTIME 08/15/23 02/05/24 docusate sodium 100 mg capsule 100 mg PO BID 11/29/23 02/05/24 furosemide 20 mg tablet 20 mg PO DAILY 11/29/2301/23 lisinopril 5 mg tablet 5 mg PO DAILY 11/29/2302/04 Lactobacillus acidophilus 1 cap PO BID 12/29/23 (Acidophilus capsule) apixaban 5 mg tablet (Eliquis) 5 mg PO BID 12/29/23 divalproex 500 mg tablet,extended 500 mg PO BEDTIME 02/05/24 release 24 hr midodrine 5 mg tablet 5 mg PO TID PRN SBP < 90 02/1502/05/24 ondansetron 4 mg disintegrating 4 mg PO Q6H PRN Nausea And Vomiting 12/29/23 02/05/24 tablet Previous Rx's ?Medication ?Instructions ?Recorded acetaminophen 650 mg 650 mg PO Q6H PRN pain #60 t abs 06/12/23 tablet,extended release pantoprazole 20 mg tablet,delayed 20 mg PO BEDTIME #90 tabs 06/27/23 release simvastatin 20 mg tablet 20 mg PO BEDTIME #90 tabs polyethylene glycol 3350 17 17 g PO DAILY PRN constipa tion 12/09/23 gram/dose oral powder (Miralax) #119 grams tramadol 25 mg tablet 25 mg PO Q6H PRN Pain #20 ta bs 01/08/24 Allergies Allergy/AdvReac Type Severity Reaction Status Date / Time No Known Allergies (No Known Allergy Verified 07/31/25 22:02 Allergies*) Review of Systems 2 Review of Systems: as per HPI, full review of systems performed and negative but for the above mentioned pertinent positives and negatives. [facility] Past Medical History Medical History Colon adenocarcinoma Colon neoplasm Pre-op chest exam Preop cardiovascular exam NSTEMI (non-ST elevated myocardial infarction) Chronic low back pain Rash of neck Hearing impairment Generalized muscle weakness Cognitive disorder TIA (transient ischemic attack) Tremors of nervous system Gait disorder DVT (deep venous thrombosis) Obesity Hyperlipidemia HTN (hypertension) GERD (gastroesophageal reflux disease) Breast cancer Bipolar 1 disorder Surgical History S/P right colectomy (01/05/24) H/O mastectomy Family History Family History Brother Alcohol abuse Polio Substance use disorder Brother Cancer Sister Stroke Mental health disorder Mother HTN (hypertension) Sister Cancer Social History Social History Household Members: None Household Members Other:: [facility] Do you presently have visiting nurse or other home services: Yes Alcohol intake: current Alcohol type: wine Patient Tobacco Use Status: Former Tobacco user Tobacco use type: Smokeless Tobacco Years Smoked: 30 Smoked in Last 30 Days: No e-Cigarette/Vaping Use: Never Used Second Hand Smoke Exposure: No Use of substances other than those prescribed or required for medical reasons: No Advance Directives: Yes Advance Directives on File: Yes Advance Directives Date on File: 05/01/22 Do you have a plan to hurt others: No Plan service: No Sexual orientation: Straight/Heterosexual Cognitive needs: No Hearing needs: No Vision needs: Yes Physical Exam 2 Exam: Exam: GENERAL: Ill-Appearing, appears uncomfortable. SKIN: Normal skin color for ethnicity, warm, dry, no rashes noted. HEENT:? Normocephalic, atraumatic, no stridor, dry mucous membranes, dentition intact, EOMI. NECK: Soft, supple, full ROM, midline structures nontender, no step-offs, no deformities, no lymphadenopathy. CHEST: Heart regular tachycardia, no murmurs, symmetric chest rise and fall. PULMONARY: Clear to auscultation bilaterally, diminished at the bases, no labored breathing, no wheezes/rhales/rhonchi. ABDOMINAL: Softly distended, diffusely tender to palpation,quiet bowel sounds in all quadrants. : Brown stool in the vault, soft, no rectal prolapse, no hemorrhoidal bleeding, stage I decubitus ulcer with diffuse erythema of the perineum. MUSCULOSKELETAL: Normal tone, full range of motion, no deformities, no peripheral edema. NEURO: Alert and oriented to person , CN II through XII intact, equal strength and sensation bilateral upper and lower extremities, no focal neurologic deficits.? PSYCHIATRIC: Flat affect, fluid speech, good eye contact and appropriate demeanor. Vital Signs: Vital Signs: Last Vital Signs Temp 98.7 F 08/01/25 07:06 Pulse 110 H 08/01/25 07:06 Resp 14 08/01/25 07:06 BP 156/73 H 08/01/25 07:06 Pulse Ox 93 08/01/25 07:06 O2 Del Method Nasal Cannula 08/01/25 07:06 O2 Flow Rate 2 08/01/25 07:06 BMI result Body Mass Index 33.4 Medications Administered Discontinued Medications Generic Name Dose Route Start Last Admin Trade Name Freq PRN Reason Stop Dose Admin Diatrizoate Meglum/Diatrizoate Sod 30 ml 08/01/25 02:44 08/01/25 02:54 Diatrizoate Meglumine, Sodium 30 Ml Solution PO 08/01/25 02:45 30 ml ONCE ONE Administration Lactated Ringer's 1,641 mls @ 999 mls/hr 07/31/25 23:14 08/01/25 01:03 Lr IV 08/01/25 00:52 Infused .Q1H39M ONE Infusion Cefepime HCl 2 gm in 50 mls @ 100 mls/hr 07/31/25 23:16 08/01/25 00:11 Maxipime IV 07/31/25 23:45 Infused ONCE ONE Infusion Iohexol 85 ml 08/01/25 02:54 08/01/25 02:55 Iohexol 350 Mg/Ml 100 Ml Infus..Btl IV 08/01/25 02:55 85 ml ONCE ONE Administration Medical Decision Making Medical Decision Making MDM Narrative: 80-year-old female presenting with shortness of breath from the [facility] a [facility]. Also complaining of abdominal distention. Flagging for sepsis at 23:22 (hypoxia, leukocytosis, lactate 2.6) likely secondary to infectious source still under evaluation (pneumonia vs urinary tract infection vs intra-abdominal process). Hemodynamically stable after initial management. Problem #1: Sepsis ? possible pneumonia vs UTI vs abdominal source Assessment: Meets sepsis criteria with leukocytosis and elevated lactate. Hypoxia raises concern for pneumonia; abdominal findings and urinary symptoms raise concern for UTI or abdominal source. Plan: * Broad-spectrum antibiotic coverage initiated with cefepime. * 30 cc/kg IV fluid bolus started (based on IBW 54.7 kg). * Blood cultures and additional laboratory studies obtained. * Await chest X-ray for pulmonary evaluation; reassess when available. * Monitor vitals, urine output, and clinical status closely. Problem #2: Hypoxia / Shortness of breath Assessment: Initial SpO2 88 % on room air, improved to mid-90s on 2 L NC. Plan: * Continue supplemental oxygen to maintain SpO2 > 92 %. * Await chest X-ray to evaluate for pneumonia or other pulmonary pathology. * Adjust oxygen therapy per oxygen saturation and respiratory status. Problem #3: Abdominal pain / Distension & Constipation Assessment: Patient reports constipation with abdominal bloating; abdomen distended and tender on exam. Plan: * Continue monitoring abdominal exam and bowel function. * Evaluate for possible obstruction if clinical picture worsens. Problem #4: Urinary symptoms ? incontinence and incomplete emptying; rule out UTI Assessment: Urinary incontinence with sensation of incomplete bladder emptying; UTI considered as potential infectious source. Plan: * Urinalysis and urine culture obtained. * Coverage with cefepime as above. Disposition: admission for futher care and evaluation. Differential Diagnosis Differential Diagnoses: The differential diagnosis associated with the presentation includes (as above) Admission/Observation Consideration of admission/observation: Escalation of care including admission/observation considered Consult Healthcare Provider Management of the patient was discussed with: Hospitalist Lab Data MDM Lab Attestation statement: I reviewed the patient's lab results. 07/31/25 22:25 07/31/25 22:25 Labs: Lab Results 07/31/25 08/01/25 08/01/25 Range/Units 22:25 01:38 02:03 WBC 13.3 H (4.8-10.8) X10*3/uL RBC 3.78 L (4.20-5.50) X10*6/uL Hgb 10.8 L (12.0-16.0) g/dl Hct 34.5 L (37.0-47.0) % MCV 91.3 (80.0-98.0) fL MCH 28.6 (27.0-33.0) pg MCHC 31.3 (31.0-35.0) g/dl RDW 16.9 H (11.0-16.0) % Plt Count 296 (160-400) X10*3/uL MPV 9.6 (9.4-12.3) fL Immature Gran % (Auto) 0.4 (0.0-0.4) % Neut % (Auto) 80.1 H (45-73) % Lymph % (Auto) 12.2 L (20-40) % [place] % (Auto) 5.6 (2-11) % Eos % (Auto) 1.5 (0-4) % Baso % (Auto) 0.2 (0-2) % Lymph # (Auto) 1.6 (1.2-4.9) X10*3/uL [place] # (Auto) 0.8 (0.1-1.2) X10*3/uL Eos # (Auto) 0.2 (0.0-0.4) X10*3/uL Baso # (Auto) 0.0 (0.0-0.2) X10*3/uL Abs Immat Gran (auto) 0.05 H (0.00-0.03) X10*3/uL Absolute Neuts (auto) 10.7 H (2.0-8.3) x10*3/uL Absolute Nucleated RBC 0.000 (0.0-0.012) X10*3/uL Nucleated RBC % (auto) 0.0 (0.0-0.2) /100WBC PT 17.2 H (11.2-13.5) SEC INR 1.4 H (0.9-1.1) D-Dimer High Sensitivty 155 NG/ML Sodium 143 (135-145) mmol/L Potassium 3.6 (3.3-5.1) mmol/L Chloride 100 (96-108) mmol/L Carbon Dioxide 30 H (22-29) mmol/L Anion Gap 17 (12-20) BUN 20 H (9-16) mg/dL Creatinine 1.12 (0.5-1.4) mg/dL Estim Creat Clear Calc 44.5 Estimated GFR 47 Random Glucose 138 H (60-115) mg/dL Lactic Acid 2.6 H* (0.5-2.0) mmol/L Lactic Acid F/U @ 2Hr 2.5 H* (0.5-2.0) mmol/L Lactic Acid F/U @ 4Hr (0.5-2.0) mmol/L Calcium 10.1 D (8.4-10.2) mg/dL Total Bilirubin 0.2 (0.0-1.0) mg/dL AST 15 (5-31) U/L ALT < 6 (0-31) U/L Alkaline Phosphatase 62 (39-117) U/L Troponin I High Sens 3.0 D (<3.5-17.0) ng/L NT-Pro-B Natriuret Pep 226.8 (<300) pg/mL Total Protein 7.0 (6.5-8.0) g/dL Albumin 3.7 (3.5-5.0) g/dL Urine Color Yellow Urine Appearance Clear Urine pH 7.5 (5.0-9.0) Ur Specific [place] <= 1.005 (1.005-1.025) Urine Protein Negative (Neg-Trace) mg/dL Urine Glucose (UA) Negative (Negative) mg/dL Urine Ketones Negative (Negative) mg/dL Urine Blood Moderate (2+) H (Negative) Urine Nitrite Negative (Negative) Ur Leukocyte Esterase Large (3+) H (Negative) Urine RBC 11-20 H (0-2) /HPF Urine WBC 21-50 H (0-5) /HPF Ur Squamous Epith Cells 0-2 (0-2) /HPF Urine Bacteria Trace (None Seen) Hyaline Casts 0-2 (0-2) /LPF Influenza Type A (PCR) NEGATIVE (Negative) Influenza Type B (PCR) NEGATIVE (Negative) RSV RNA Qual (PCR) NEGATIVE (Negative) SARS-CoV-2 RNA (RT-PCR) NEGATIVE (Negative) 08/01/25 Range/Units 04:00 WBC (4.8-10.8) X10*3/uL RBC (4.20-5.50) X10*6/uL Hgb (12.0-16.0) g/dl Hct (37.0-47.0) % MCV (80.0-98.0) fL MCH (27.0-33.0) pg MCHC (31.0-35.0) g/dl RDW (11.0-16.0) % Plt Count (160-400) X10*3/uL MPV (9.4-12.3) fL Immature Gran % (Auto) (0.0-0.4) % Neut % (Auto) (45-73) % Lymph % (Auto) (20-40) % [place] % (Auto) (2-11) % Eos % (Auto) (0-4) % Baso % (Auto) (0-2) % Lymph # (Auto) (1.2-4.9) X10*3/uL [place] # (Auto) (0.1-1.2) X10*3/uL Eos # (Auto) (0.0-0.4) X10*3/uL Baso # (Auto) (0.0-0.2) X10*3/uL Abs Immat Gran (auto) (0.00-0.03) X10*3/uL Absolute Neuts (auto) (2.0-8.3) x10*3/uL Absolute Nucleated RBC (0.0-0.012) X10*3/uL Nucleated RBC % (auto) (0.0-0.2) /100WBC PT (11.2-13.5) SEC INR (0.9-1.1) D-Dimer High Sensitivty NG/ML Sodium (135-145) mmol/L Potassium (3.3-5.1) mmol/L Chloride (96-108) mmol/L Carbon Dioxide (22-29) mmol/L Anion Gap (12-20) BUN (9-16) mg/dL Creatinine (0.5-1.4) mg/dL Estim Creat Clear Calc Estimated GFR Random Glucose (60-115) mg/dL Lactic Acid (0.5-2.0) mmol/L Lactic Acid F/U @ 2Hr (0.5-2.0) mmol/L Lactic Acid F/U @ 4Hr 2.0 (0.5-2.0) mmol/L Calcium (8.4-10.2) mg/dL Total Bilirubin (0.0-1.0) mg/dL AST (5-31) U/L ALT (0-31) U/L Alkaline Phosphatase (39-117) U/L Troponin I High Sens (<3.5-17.0) ng/L NT-Pro-B Natriuret Pep (<300) pg/mL Total Protein (6.5-8.0) g/dL Albumin (3.5-5.0) g/dL Urine Color Urine Appearance Urine pH (5.0-9.0) Ur Specific [place] (1.005-1.025) Urine Protein (Neg-Trace) mg/dL Urine Glucose (UA) (Negative) mg/dL Urine Ketones (Negative) mg/dL Urine Blood (Negative) Urine Nitrite (Negative) Ur Leukocyte Esterase (Negative) Urine RBC (0-2) /HPF Urine WBC (0-5) /HPF Ur Squamous Epith Cells (0-2) /HPF Urine Bacteria (None Seen) Hyaline Casts (0-2) /LPF Influenza Type A (PCR) (Negative) Influenza Type B (PCR) (Negative) RSV RNA Qual (PCR) (Negative) SARS-CoV-2 RNA (RT-PCR) (Negative) Independent Interpretation Interpretation: My independent interpretation of the ECG reveals normal sinus tachycardia with rate of 101, normal axis, normal intervals, no ST elevations or depressions to suggest ischemic changes, no previous for comparison. Radiology Impression Discussion of test interpretation with radiology: I have reviewed the radiologist's reading. Independent Historian Clinical information obtained from an independent historian. History obtained from or confirmed by: EMS External Record Review External record reviewed: Inpatient record and Outpatient record Chronic Conditions Patient?s care impacted by: Diabetes, Hypertension and Cancer Social Determinants Patient?s care significantly limited by Social Determinants of Health including: Other Social Determinant of Health Critical Care Time Critical Care Time Critical Care Time: Yes Total Critical Care Time: 35 Attestation: Time is exclusive of separately billable procedures. Time includes: direct patient care, patient reassessment, coordination of patient care, interpretation of data (laboratory data, pulse oximetry, arterial blood gases and chest xrays), review of patient's medical records, medical consultation and documentation of patient care. Procedures excluded from critical care time: central intravenous line placement and electrocardiography. Discharge Plan Discharge Clinical Impression: Sepsis, Stercoral colitis, Abdominal distension, Acute UTI Patient Disposition: Admitted As Inpatient
[2025-07-31] MEDS: cefEPime HCl/D5W 2 GM/50 ML PIGGYBACK IV (23:30)
--- NOTE | 2025-07-31 23:46 | PC.NURSE ---
Report to CAT [facility] via telephone
[2025-08-01] VITALS (10 sets, daily range): BP systolic 116–178; BP diastolic 51–82; PULSE 91–116; RESP 14–22; TEMP 36.3–37.1; O2SAT 91–97
--- NOTE | 2025-08-01 00:11 | PC.NURSE ---
assumed care of pt, sepsis fluids running per OCT. pt continues to drink oral contrast. 02 at 2L, sp02 98%
[2025-08-01 00:32] LABS: Reflex Lactate? Lactic Acid Added
[2025-08-01 02:12] LABS: Appearance Urine Clear; Glucose Urine UA Negative (Negative); PH 7.5 (5.0-9.0); Specific Gravity - Urine <= 1.005 (1.005-1.025); UMIC TRIGGER UACC YES
[2025-08-01 02:18] LABS: UACC Culture Trigger YES
[2025-08-01 02:33] LABS: ~Lactic Acid-LAB USE ONLY 2.5 mmol/L (0.5-2.0)
[2025-08-01] MEDS: iohexoL 350 MG/ML 100 ML INFUS..BTL 85 ML IV (02:55)
[2025-08-01 03:43] LABS: Reflex Lactate? 2 Y
--- NOTE | 2025-08-01 04:00 | MHC.EDTECH ---
emptied pts sutton bag. Pt had 750 mL
[2025-08-01 04:19] LABS: ~Lactic Acid-LAB USE ONLY 2.0 mmol/L (0.5-2.0)
--- NOTE | 2025-08-01 07:18 | PC.NURSE ---
Resumed care of pt at 0700, she is resting comfortably in bed, pt reporting nausea at this time after having OJ. Pt denies any pain at this time. This RN assessed with pt the last time she had a BM, pt stating weeks . Pt is pending admission at this time, call girard within reach, cell phone given to pt at this time.
--- NOTE | 2025-08-01 08:10 | PM.IMHP ---
History of Present Illness Date of Service: 08/01/25 Chief Complaint: Shortness of breath and rectal pain 80 y/o female with PMSH of Colon adenocarcinoma, Colon neoplasm, GERD, S/P right colectomy (01/05/24), presenting to the ED for treatment of SOB, Hypoxia, constipation and rectal pain. Patient reported that SOB started 3-4 days ago and gradually became worst prompting her to seek treatment in the ED. She also reported rectal pain and constipation that has been ongoing for the past couple of months. Reports associated symptoms of chest pain in the mid epigastric region with no radiation for past 3-4 days, nausea but no vomiting and mild abdominal pain in lower abdomen intermittently for past couple weeks, denies fever, chills, headache, dizziness, or diarrhea. In the ED Temp 100.3, SPO2 88% RN improved with 2L O2, CXR showed No acute cardiopulmonary process. No focal pulmonary consolidation. KUB X-Ray Mild distention of the colon with gas and stool throughout the abdomen. A/P CT scan . Cecejlpy-[id number] colonic stool burden present with a large rectal stool burden, perirectal edema, consistent with stercoral colitis. No bowel obstruction. Cholelithiasis and small hiatal hernia. She received 1L LR bolus, Diatizoate, Maxepime, Iohexol 350mg Review of Systems Review of Systems: Denies any recent fever chills or decrease in appetite respiratory see HPI cardiovascular reports mid epigastric chest pain gastrointestinal see HPI genitourinary denies any dysuria frequency or hematuria musculoskeletal denies any joint pain or swelling neuropsych denies any weakness or seizures all other systems reviewed are negative COUNTS INCLUDE 234 BEDS AT THE [facility] Medical History (Updated 08/01/25 @ 09:10 by Chastity Fry NP) Colon adenocarcinoma NSTEMI (non-ST elevated myocardial infarction) Chronic low back pain Hearing impairment Cognitive disorder TIA (transient ischemic attack) Tremors of nervous system Gait disorder DVT (deep venous thrombosis) Obesity Hyperlipidemia HTN (hypertension) GERD (gastroesophageal reflux disease) Breast cancer Bipolar 1 disorder Family History Brother Alcohol abuse Polio Substance use disorder Brother Cancer Sister Stroke Mental health disorder Mother HTN (hypertension) Sister Cancer Surgical History S/P right colectomy (01/05/24) H/O mastectomy Social History Household Members: None Household Members Other:: Bashir Strickland Housing: [facility] Do you presently have visiting nurse or other home services: Yes Alcohol intake: current Alcohol type: wine Patient Tobacco Use Status: Former Tobacco user Tobacco use type: Smokeless Tobacco Years Smoked: 30 Smoked in Last 30 Days: No e-Cigarette/Vaping Use: Never Used Second Hand Smoke Exposure: No Use of substances other than those prescribed or required for medical reasons: No Advance Directives: Yes Advance Directives on File: Yes Advance Directives Date on File: 05/01/22 Do you have a plan to hurt others: No Plan Nutrition Risks: No Nutritional Risk service: No Sexual orientation: Straight/Heterosexual Cognitive needs: No Hearing needs: No Vision needs: Yes Meds Allergies Allergy/AdvReac Type Severity Reaction Status Date / Time No Known Allergies (No Known Allergy Verified 07/31/25 22:02 Allergies*) Home Medications ?Medication ?Instructions ?Recorded ?Confirmed ?Last Taken ?Type folic acid 1 mg tablet 1 mg PO DAILY 09/30/22 08/01/25 07/31/25 History risperidone microspheres 25 mg/2 25 mg IM Q14D 09/30/22 08/01/25 07/30/25 History mL intramuscular susp,ext release (Risperdal Consta) nortriptyline 10 mg capsule 10 mg PO BEDTIME 08/15/23 08/01/25 07/31/25 History docusate sodium 100 mg capsule 100 mg PO BID 11/29/23 08/01/25 07/31/25 History apixaban 5 mg tablet (Eliquis) 5 mg PO BID 12/29/23 08/01/25 07/31/25 History divalproex 500 mg tablet,extended 500 mg PO BEDTIME 12/29/23 08/01/25 07/31/25 History release 24 hr ondansetron 4 mg disintegrating 4 mg PO Q6H PRN Nausea And Vomiting 12/29/23 08/01/25 Unknown History tablet acetaminophen 325 mg tablet 650 mg PO Q6H PRN DISCOMFORT/PAIN 08/01/25 08/01/25 Unknown History acetaminophen 500 mg tablet 1,000 mg PO BID Pain 08/01/25 08/01/25 07/31/25 History benzocaine 15 mg-menthol 3.6 mg 1 tahmina mucous membrane Q8H PRN Sore 08/01/25 08/01/25 Unknown History lozenges (Sore Throat (benzocaine Throat with menthol)) bisacodyl 10 mg rectal suppository 10 mg [place] DAILY PRN Constipation 08/01/25 08/01/25 Unknown History carvedilol 3.125 mg tablet 3.125 mg PO BID 08/01/25 08/01/25 07/31/25 History deutetrabenazine 12 mg tablet 12 mg PO BID 08/01/25 08/01/25 07/31/25 History (Austedo) diclofenac sodium 1 % topical gel 4 g topical Q8H PRN Pain 08/01/25 08/01/25 Unknown History furosemide 40 mg tablet 40 mg PO DAILY 08/01/25 08/01/25 07/31/25 History lidocaine 4 % topical patch 1 patch topical DAILY Pain 08/01/25 08/01/25 07/31/25 History lidocaine 5 % topical patch 1 patch topical DAILY Left Hip Pain 08/01/25 08/01/25 07/31/25 History (Lidoderm) loratadine 10 mg tablet 10 mg PO DAILY 08/01/25 08/01/25 07/31/25 History magnesium hydroxide 400 mg/5 mL 30 ml PO DAILY PRN Constipation 08/01/25 08/01/25 07/29/25 History oral suspension (Milk of Magnesia) melatonin 3 mg tablet 3 mg PO BEDTIME Sleep 08/01/25 08/01/25 07/31/25 History metformin 500 mg tablet 500 mg PO DAILY 08/01/25 08/01/25 07/31/25 History pantoprazole 20 mg tablet,delayed 20 mg PO BEDTIME 08/01/25 08/01/25 07/31/25 History release (Protonix) polyethylene glycol 3350 17 17 g PO DAILY constipation 08/01/25 08/01/25 07/31/25 History gram/dose oral powder (Miralax) sennosides 8.6 mg tablet (senna) 8.6 mg PO BID 08/01/25 08/01/25 07/31/25 History witch kenrick leaf (hamamelis) 1 ea topical Q2H PRN pain in anus 08/01/25 08/01/25 Unknown History Physical Exam Vital Signs and Narrative: Vital Signs: Last Vital Signs Temp 98.7 F 08/01/25 07:06 Pulse 110 H 08/01/25 07:06 Resp 14 08/01/25 07:06 BP 156/73 H 08/01/25 07:06 Pulse Ox 93 08/01/25 07:06 O2 Del Method Nasal Cannula 08/01/25 07:06 O2 Flow Rate 2 08/01/25 07:06 BMI result Body Mass Index 33.4 Appearing in no ac viviana distress head is normocephalic a traumatic eyes pup ils are PERRLA scl era is anicteric m outh throat mucous membranes are int act and moist neck is supple no lymp hadenopathy, no JV D noted lung sound s rales heart regu lar rate rhythm, c lear? S1, S2, nonp itting edema posit alfredo bowel sounds p resent, abdomen is distended, tender in left upper and lower quadrants o n palpation neuro patient is alert x 3, no focal defici ts Results Labs 07/31/25 22:25 07/31/25 22:25 Labs: Laboratory Results - last 24 hr 07/31/25 08/01/25 08/01/25 22:25 01:38 02:03 MCV 91.3 MCH 28.6 MCHC 31.3 RDW 16.9 H Plt Count 296 MPV 9.6 Immature Gran % (Auto) 0.4 Neut % (Auto) 80.1 H Lymph % (Auto) 12.2 L [place] % (Auto) 5.6 Eos % (Auto) 1.5 Baso % (Auto) 0.2 Lymph # (Auto) 1.6 [place] # (Auto) 0.8 Eos # (Auto) 0.2 Baso # (Auto) 0.0 Abs Immat Gran (auto) 0.05 H Absolute Neuts (auto) 10.7 H Absolute Nucleated RBC 0.000 Nucleated RBC % (auto) 0.0 PT 17.2 H INR 1.4 H D-Dimer High Sensitivty 155 Anion Gap 17 Estim Creat Clear Calc 44.5 Estimated GFR 47 Random Glucose 138 H Lactic Acid 2.6 H* Lactic Acid F/U @ 2Hr 2.5 H* Lactic Acid F/U @ 4Hr Calcium 10.1 D Total Bilirubin 0.2 AST 15 ALT < 6 Alkaline Phosphatase 62 Troponin I High Sens 3.0 D NT-Pro-B Natriuret Pep 226.8 Total Protein 7.0 Albumin 3.7 Urine Color Yellow Urine Appearance Clear Urine pH 7.5 Ur Specific [place] <= 1.005 Urine Protein Negative Urine Glucose (UA) Negative Urine Ketones Negative Urine Blood Moderate (2+) H Urine Nitrite Negative Ur Leukocyte Esterase Large (3+) H Urine RBC 11-20 H Urine WBC 21-50 H Ur Squamous Epith Cells 0-2 Urine Bacteria Trace Hyaline Casts 0-2 Influenza Type A (PCR) NEGATIVE Influenza Type B (PCR) NEGATIVE RSV RNA Qual (PCR) NEGATIVE SARS-CoV-2 RNA (RT-PCR) NEGATIVE 08/01/25 04:00 MCV MCH MCHC RDW Plt Count MPV Immature Gran % (Auto) Neut % (Auto) Lymph % (Auto) [place] % (Auto) Eos % (Auto) Baso % (Auto) Lymph # (Auto) [place] # (Auto) Eos # (Auto) Baso # (Auto) Abs Immat Gran (auto) Absolute Neuts (auto) Absolute Nucleated RBC Nucleated RBC % (auto) PT INR D-Dimer High Sensitivty Anion Gap Estim Creat Clear Calc Estimated GFR Random Glucose Lactic Acid Lactic Acid F/U @ 2Hr Lactic Acid F/U @ 4Hr 2.0 Calcium Total Bilirubin AST ALT Alkaline Phosphatase Troponin I High Sens NT-Pro-B Natriuret Pep Total Protein Albumin Urine Color Urine Appearance Urine pH Ur Specific [place] Urine Protein Urine Glucose (UA) Urine Ketones Urine Blood Urine Nitrite Ur Leukocyte Esterase Urine RBC Urine WBC Ur Squamous Epith Cells Urine Bacteria Hyaline Casts Influenza Type A (PCR) Influenza Type B (PCR) RSV RNA Qual (PCR) SARS-CoV-2 RNA (RT-PCR) Assessment and Plan (1) Stercoral colitis: Status: Acute Plan 80 year old women admitted with sepsis secondary to UTI Severe sepsis secondary to UTI WBC 13.3, Lactic 2.6, tachycardia h/o recurrent UTI of Proteus mirabilis and Enterococcus faecalis start IV Ampicillin as both organisms were susceptible to the antibiotic Follow urine culture Will consult Urology for evaluation pending culture patient h/o recurrent UTI is concerning Acute Hypoxic respiratory failure likely secondary to Atelectasis CXR negative for consolidation or effusion Monitor O2 and maintain supplemental O2 as needed Stercoral colitis secondary to Constipation Abdominal Distention Patient had one episode of moderate episode of dark brown vomit in ED, check occult Bowel regimen with fleet enema and mag citrate General Surgery consult if ineffective for possible manual stool disimpaction Dysphagia Speech therapy consultation npo for now HTN Continue home medications Nomocytic Anemia HH 10.8/34.5 Improved from 06/24/2025 Will continue to monitor GERD Will continue home meds Pantroprazole Mental Health Disorder Continue home medications Hx of DVT/PE on Eliquis DVT PPX Eliquis Quality Stroke Does the patient have a stroke diagnosis?: No VTE Prior VTE?: No VTE Risk Level:: Medical - moderate - high VTE Device Contraindication: Treatment Not Indicated VTE Drug Contraindication: N/A - Med Ordered
--- NOTE | 2025-08-01 10:11 | PHA.MEDREC ---
Addendum entered by Malissa Choe RPh 08/01/25 10:39: Reviewed by [facility] Original Note: Pharmacy Consult ? Medication Reconciliation Pharmacy has completed the medication reconciliation. Utilized list from [facility].
[2025-08-01] MEDS: Ampicillin Sodium 500 MG in 0.9 % Sodium Chloride 50 ML 100 MG IV ×2 (11:52→18:29)
--- NOTE | 2025-08-01 16:17 | PC.NURSE ---
This RN reached out to provider with concerns of pt being lethargic, HR starting to elevate to one teens-120s, pt going to MS not on tele. This RN clarified the provider didn't want to change any orders for pt to remain on tele or add any IVF, at this time provider Chastity Gonzalez did not want any changes and stated that pt was to remain on MS with no tele ordered. Nurse resuming care of patient made aware as pt was just transferred up to her new room.
[2025-08-01] MEDS: 0.9 % Sodium Chloride Flush 3 ML SYRINGE IVFLUSH (16:21)
[2025-08-02 03:18] VITALS: BP 146/70; PULSE 97; RESP 18; TEMP 37; O2SAT 94
[2025-08-02] MEDS: Ampicillin Sodium 500 MG in 0.9 % Sodium Chloride 50 ML 100 MG IV ×4 (05:33→17:37)
[2025-08-02 07:41] VITALS: BP 143/70; PULSE 98; RESP 16; TEMP 36.3; O2SAT 91
--- NOTE | 2025-08-02 08:10 | P.CNUR_ITS ---
History of Present Illness Consult details Consult date: 08/02/25 Narrative: CC: Recurrent UTI 80-year-old female Presents through emergency room with constipation and rectal pain Prior history of colon adenocarcinoma. Colectomy December 2023 On imaging found to have moderate to large stool burden with large rectal stool burden Prior culture showed E coli and Proteus Would treat based on prior culture results Follow-up urology outpatient for further management Review of Systems 2 Constitutional: Constitutional: Denies chills and Denies fever(s) Cardiovascular: Cardiovascular: Reports no additional cardiovascular complaints and Denies syncope Respiratory: Respiratory: Denies cough Gastrointestinal: Gastrointestinal: Denies abdominal pain and Denies heartburn Genitourinary: Genitourinary: Reports as per HPI and Denies change in libido Neurologic: Denies syncope Psychiatric: Psychiatric: Denies change in libido Endocrine: Endocrine: Denies change in libido [facility] Past Medical History Medical History (Updated 08/02/25 @ 13:02 by Black Gill MD) Colon adenocarcinoma NSTEMI (non-ST elevated myocardial infarction) Chronic low back pain Hearing impairment Cognitive disorder TIA (transient ischemic attack) Tremors of nervous system Gait disorder DVT (deep venous thrombosis) Obesity Hyperlipidemia HTN (hypertension) GERD (gastroesophageal reflux disease) Breast cancer Bipolar 1 disorder Family History Family History Brother Alcohol abuse Polio Substance use disorder Brother Cancer Sister Stroke Mental health disorder Mother HTN (hypertension) Sister Cancer Surgical History Surgical History S/P right colectomy (01/05/24) H/O mastectomy Social History Social History Household Members: Other Household Members Other:: [facility] Housing: [place] Housing Other:: [facility] Do you presently have visiting nurse or other home services: No Alcohol intake: current Alcohol type: wine Patient Tobacco Use Status: Former Tobacco user Tobacco use type: Smokeless Tobacco Years Smoked: 30 Smoked in Last 30 Days: No e-Cigarette/Vaping Use: Never Used Second Hand Smoke Exposure: No Use of substances other than those prescribed or required for medical reasons: No Currently Displaying Signs/Symptoms of Drug Intoxication Withdrawal: No Have you been hit, kicked, punched, or otherwise hurt by someone within the past year? If so, by whom?: No Do you feel safe in your current relationship?: Yes Is there a partner from a previous relationship who is making you feel unsafe now?: No Are you made to feel afraid or neglected: No Advance Directives: Yes Advance Directives on File: Yes Advance Directives Date on File: 05/01/22 Do you have a plan to hurt others: No Plan Recently lost weight without trying: Unsure Nutrition Risks: Difficulty swallowing Patient : No : No service: No Sexual orientation: Straight/Heterosexual Cognitive needs: No Hearing needs: No Vision needs: Yes Meds Allergies Allergy/AdvReac Type Severity Reaction Status Date / Time No Known Allergies (No Known Allergy Verified 07/31/25 22:02 Allergies*) Active Medications: Current Medications Acetaminophen (Acetaminophen 325 Mg Tablet) 650 mg PO Q6H PRN PRN Reason: Pain, Mild 1-3,fever,headache Apixaban (Apixaban 5 Mg Tablet) 5 mg PO BID [facility] Last Admin: 08/01/25 19:49 Dose: 5 mg Atorvastatin Calcium (Atorvastatin Calcium 10 Mg Tablet) 10 mg PO BEDTIME [facility] Last Admin: 08/01/25 19:49 Dose: 10 mg Calcium Carbonate (Calcium Carbonate 750 Mg Tab.Chew) 750 mg PO Q4H PRN PRN Reason: Heartburn Carvedilol (Carvedilol 3.125 Mg Tablet) 3.125 mg PO BID [facility]; Protocol Last Admin: 08/01/25 19:49 Dose: 3.125 mg Divalproex Sodium (Divalproex Sodium Er 500 Mg Tab.Er.24h) 500 mg PO BEDTIME [facility] Last Admin: 08/01/25 19:49 Dose: 500 mg Furosemide (Furosemide 40 Mg Tablet) 40 mg PO DAILY [facility]; Protocol Ampicillin Sodium 500 mg/ (Sodium Chloride) 50 mls @ 100 mls/hr IV Q6H [facility] Last Infusion: 08/02/25 06:04 Dose: Infused Sodium Chloride (Ns) 1,000 mls @ 80 mls/hr IVCONT .[id number] [facility] Last Admin: 08/02/25 05:36 Dose: 80 mls/hr Loratadine (Loratadine 10 Mg Tablet) 10 mg PO DAILY [facility] Magnesium Hydroxide (Milk Of Magnesia 30 Ml Oral.Susp) 30 ml PO DAILY PRN PRN Reason: Constipation Melatonin (Melatonin 3 Mg Tablet) 6 mg PO BEDTIME PRN PRN Reason: Insomnia Non-Formulary Medication (Deutetrabenazine [Austedo]) 12 mg PO BID [facility] Non-Formulary Medication (Risperidone Microspheres) 25 mg IM Q14D [facility] Nortriptyline HCl (Nortriptyline Hcl 10 Mg Capsule) 10 mg PO BEDTIME [facility] Last Admin: 08/01/25 19:49 Dose: 10 mg Omeprazole (Omeprazole 20 Mg Capsule.Dr) 20 mg PO DAILY@0630 [facility] Last Admin: 08/02/25 05:34 Dose: 20 mg Ondansetron HCl (Ondansetron Hcl 4 Mg/2 Ml Vial) 4 mg IVPUSH Q8H PRN PRN Reason: Nausea and Vomiting Last Admin: 08/01/25 11:41 Dose: 4 mg Sodium Biphosphate/Sodium Phosphate (Sodium Phosphate,[place]-Dibasic 133 Ml Enema) 133 ml [place] ONCE PRN PRN Reason: Constipation Sodium Chloride (0.9 % Sodium Chloride Flush 3 Ml Syringe) 3 ml IVFLUSH QSHIFT [facility] Last Admin: 08/02/25 00:03 Dose: Not Given Home Medications ?Medication ?Instructions ?Recorded ?Confirmed ?Last Taken ?Type folic acid 1 mg tablet 1 mg PO DAILY 09/30/2208/0107/31/25 History risperidone microspheres 25 mg/2 25 mg IM Q14D 3 08/01/25 07/30/25 History mL intramuscular susp,ext release (Risperdal Consta) nortriptyline 10 mg capsule 10 mg PO BEDTIME 08/15/23 08/01/25 07/31/25 History docusate sodium 100 mg capsule 100 mg PO BID 11/29/23 08/01/25 07/31/25 History apixaban 5 mg tablet (Eliquis) 5 mg PO BID 12/29/2307/31/25 History divalproex 500 mg tablet,extended 500 mg PO BEDTIME 08/01/25 07/31/25 History release 24 hr ondansetron 4 mg disintegrating 4 mg PO Q6H PRN Nausea And Vomiting 12/29/23 08/01/25 Unknown History tablet acetaminophen 325 mg tablet 650 mg PO Q6H PRN DISCOMFO RT/PAIN 08/01/25 08/01/25 Unknown History acetaminophen 500 mg tablet 1,000 mg PO BID Pain 08/0108/01/25 07/31/25 History benzocaine 15 mg-menthol 3.6 mg 1 tahmina mucous membrane Q8H PRN Sore 08/01/25 08/01/25 Unknown History lozenges (Sore Throat (benzocaine Throat with menthol)) bisacodyl 10 mg rectal suppository 10 mg [place] DAILY PRN Constipation 08/01/25 08/01/25 Unknown History carvedilol 3.125 mg tablet 3.125 mg PO BID 08/01/2507/31/25 History deutetrabenazine 12 mg tablet 12 mg PO BID 08/01/2507/31/25 History (Austedo) diclofenac sodium 1 % topical gel 4 g topical Q8H PRN Pain 08/01/25 08/01/25 Unknown History furosemide 40 mg tablet 40 mg PO DAILY 08/01/2504/1807/31/25 History lidocaine 4 % topical patch 1 patch topical DAILY Pain 08/01/25 08/01/25 07/31/25 History lidocaine 5 % topical patch 1 patch topical DAILY Left Hip Pain 08/01/25 08/01/25 07/31/25 History (Lidoderm) loratadine 10 mg tablet 10 mg PO DAILY 08/01/2504/1807/31/25 History magnesium hydroxide 400 mg/5 mL 30 ml PO DAILY PRN Con stipation 08/01/25 08/01/25 07/29/25 History oral suspension (Milk of Magnesia) melatonin 3 mg tablet 3 mg PO BEDTIME Sleep 08/01/25 07/31/25 History metformin 500 mg tablet 500 mg PO DAILY 08/01/2504/1807/31/25 History pantoprazole 20 mg tablet,delayed 20 mg PO BEDTIME 04/1808/01/25 07/31/25 History release (Protonix) polyethylene glycol 3350 17 17 g PO DAILY constipation 08/01/25 08/01/25 07/31/25 History gram/dose oral powder (Miralax) sennosides 8.6 mg tablet (senna) 8.6 mg PO BID 5 08/01/25 07/31/25 History witch kenrick leaf (hamamelis) 1 ea topical Q2H PRN pain in anus 08/01/25 08/01/25 Unknown History Physical Exam 2 Vital Signs: Vital Signs: Last Vital Signs Temp 97.4 F 08/02/25 07:41 Pulse 98 08/02/25 07:41 Resp 16 08/02/25 07:41 BP 143/70 H 08/02/25 07:41 Pulse Ox 91 L 08/02/25 07:41 O2 Del Method Nasal Cannula 08/02/25 07:41 O2 Flow Rate 2 08/02/25 07:41 BMI result Body Mass Index 33.4 Const: General: cooperative, healthy appearing, comfortable and no acute distress Orientation/consciousness: patient oriented x3 HEENT: Face and sinus: Yes normal facial exam Mouth: moist mucous membranes Neck: Neck: Yes normal visual inspection, Yes full ROM and Yes trachea midline Chest: Chest palpation & inspection: normal inspection of the chest Resp: Effort & Inspection: normal respiratory effort, able to speak in complete sentences and no respiratory distress GI: Inspection: Yes normal to inspection Back/Spine/Pelvis: Cervical Spine: normal cervical lordosis Thoracic/Lumbar Spine: thoracic and lumbar spine normal to inspection Skin: General skin exam: no rashes or lesions noted Neuro: General: patient oriented x3, gait normal, tone normal and moves all extremities Extrem: General: Yes normal to inspection and Yes capillary refill normal Results Labs 08/02/25 09:39 08/02/25 09:39 Labs: Urine 08/01/25 Range/Units 02:03 Urine Color Yellow Urine Appearance Clear Urine pH 7.5 (5.0-9.0) Ur Specific [place] <= 1.005 (1.005-1.025) Urine Protein Negative (Neg-Trace) mg/dL Urine Glucose (UA) Negative (Negative) mg/dL All other labs normal. Assessment and Plan (1) Acute UTI: Status: Acute Plan Manage acute UTI conservatively Outpatient followup assessment Procedures Date of Service Date of Service: 08/02/25
[2025-08-02 09:47] LABS: Hematocrit 33.8 % (37.0-47.0); Hemoglobin 10.8 g/dl (12.0-16.0); Mean Corpuscular HGB Conc 32.0 g/dl (31.0-35.0); Mean Corpuscular Hemoglobin 29.7 pg (27.0-33.0); Mean Corpuscular Volume 92.9 fL (80.0-98.0); NRBC Abs Auto 0.000 X10*3/uL (0.0-0.012); NRBC Pct Auto 0.0 /100WBC (0.0-0.2); Platelet Count 289 X10*3/uL (160-400); Red Blood Count 3.64 X10*6/uL (4.20-5.50); White Blood Count 15.1 X10*3/uL (4.8-10.8)
--- NOTE | 2025-08-02 09:53 | MHC.CM.PN ---
IMM DELIVERED PT IS A [facility] RESIDENT OF [facility]. PT REFERRED THIS CUSTOMER ASSISTANT TO HER SISTER/HCP [place] WITH ANY QUESTIONS. PLAN FOR PT TO RETURN TO [facility] VIA BLS ON DC. CM WILL CONTINUE TO FOLLOW FOR ANY CHANGE TO DC PLAN/NEEDS.
[2025-08-02 10:02] LABS: Anion Gap 14 (12-20); Blood Urea Nitrogen 24 mg/dL (9-16); Calcium 9.2 mg/dL (8.4-10.2); Carbon Dioxide 29 mmol/L (22-29); Chloride 106 mmol/L (96-108); Creatinine Clr Calc Pharmacy 51.3; Estimated Glomerular Filt Rate 56; Potassium 3.5 mmol/L (3.3-5.1); Sodium 145 mmol/L (135-145)
--- NOTE | 2025-08-02 12:40 | P.PNIM_ITS ---
Subjective Subjective Date of Service: 08/02/25 Interval History: Patient is altered on evaluation today. She endorses abdominal discomfort and fullness. Review of Systems Yes all other systems are reviewed and are negative Physical Exam 2 Exam: Exam: Appearing in no acute distress head is normocephalic atraumatic eyes pupils are PERRLA sclera is anicteric mouth throat mucous membranes are intact and moist neck is supple no lymphadenopathy, no JVD noted lung sounds clear bilaterally, on 2L O2 heart regular rate rhythm, clear? S1, S2, no edema positive bowel sounds, abdomen is distended, firm, mild generalized tenderness neuro patient is alert 2, no focal deficits? Vital Signs: Vital Signs: Last Vital Signs Temp 97.4 F 08/02/25 07:41 Pulse 98 08/02/25 07:41 Resp 16 08/02/25 07:41 BP 143/70 H 08/02/25 07:41 Pulse Ox 91 L 08/02/25 07:41 O2 Del Method Nasal Cannula 08/02/25 07:41 O2 Flow Rate 2 08/02/25 07:41 BMI result Body Mass Index 33.4 Objective Data Active Medications Acetaminophen (Acetaminophen 325 Mg Tablet) 650 mg PO Q6H PRN PRN Reason: Pain, Mild 1-3,fever,headache Apixaban (Apixaban 5 Mg Tablet) 5 mg PO BID [facility] Last Admin: 08/02/25 08:36 Dose: 5 mg Documented By: TORITO Atorvastatin Calcium (Atorvastatin Calcium 10 Mg Tablet) 10 mg PO BEDTIME [facility] Last Admin: 08/01/25 19:49 Dose: 10 mg Documented By: SHAILA Calcium Carbonate (Calcium Carbonate 750 Mg Tab.Chew) 750 mg PO Q4H PRN PRN Reason: Heartburn Carvedilol (Carvedilol 3.125 Mg Tablet) 3.125 mg PO BID [facility]; Protocol Last Admin: 08/02/25 08:36 Dose: 3.125 mg Documented By: TORITO Divalproex Sodium (Divalproex Sodium Er 500 Mg Tab.Er.24h) 500 mg PO BEDTIME [facility] Last Admin: 08/01/25 19:49 Dose: 500 mg Documented By: SHAILA Furosemide (Furosemide 40 Mg Tablet) 40 mg PO DAILY [facility]; Protocol Last Admin: 08/02/25 08:36 Dose: 40 mg Documented By: TORITO Ampicillin Sodium 500 mg/ (Sodium Chloride) 50 mls @ 100 mls/hr IV Q6H [facility] Last Infusion: 08/02/25 06:04 Dose: Infused Documented By: SHAILA Sodium Chloride (Ns) 1,000 mls @ 80 mls/hr IVCONT .[id number] [facility] Last Admin: 08/02/25 05:36 Dose: 80 mls/hr Documented By: SHAILA Loratadine (Loratadine 10 Mg Tablet) 10 mg PO DAILY [facility] Last Admin: 08/02/25 08:36 Dose: 10 mg Documented By: TORITO Magnesium Hydroxide (Milk Of Magnesia 30 Ml Oral.Susp) 30 ml PO DAILY PRN PRN Reason: Constipation Melatonin (Melatonin 3 Mg Tablet) 6 mg PO BEDTIME PRN PRN Reason: Insomnia Non-Formulary Medication (Deutetrabenazine [Austedo]) 12 mg PO BID [facility] Non-Formulary Medication (Risperidone Microspheres) 25 mg IM Q14D [facility] Nortriptyline HCl (Nortriptyline Hcl 10 Mg Capsule) 10 mg PO BEDTIME [facility] Last Admin: 08/01/25 19:49 Dose: 10 mg Documented By: SHAILA Omeprazole (Omeprazole 20 Mg Capsule.Dr) 20 mg PO DAILY@0630 [facility] Last Admin: 08/02/25 05:34 Dose: 20 mg Documented By: SHAILA Ondansetron HCl (Ondansetron Hcl 4 Mg/2 Ml Vial) 4 mg IVPUSH Q8H PRN PRN Reason: Nausea and Vomiting Last Admin: 08/02/25 08:27 Dose: 4 mg Documented By: TORITO Sodium Biphosphate/Sodium Phosphate (Sodium Phosphate,[place]-Dibasic 133 Ml Enema) 133 ml [place] ONCE PRN PRN Reason: Constipation Sodium Chloride (0.9 % Sodium Chloride Flush 3 Ml Syringe) 3 ml IVFLUSH QSHIFT [facility] Last Admin: 08/02/25 08:28 Dose: Not Given Documented By: TORITO Non-Admin Reason: IV Running Labs 08/02/25 09:39 12 09:39 Labs: Laboratory Results - last 24 hr 08/02/25 09:39 MCV 92.9 MCH 29.7 MCHC 32.0 RDW 16.8 H Plt Count 289 MPV 9.6 Absolute Nucleated RBC 0.000 Nucleated RBC % (auto) 0.0 Anion Gap 14 Estim Creat Clear Calc 51.3 Estimated GFR 56 Random Glucose 132 H Calcium 9.2 D Microbiology Microbiology Results: Microbiology 08/01/25 04:00 Urine Culture - Preliminary Urine clean catch - Clean Catch Midstream Proteus species 07/31/25 23:25 Blood Culture - Preliminary Blood - Venous No growth after 24 hours. 07/31/25 23:25 Blood Culture - Preliminary Blood - Venous No growth after 24 hours. Assessment and Plan (1) HTN (hypertension): Status: Acute (2) Pulmonary embolism: Status: Acute (3) GERD (gastroesophageal reflux disease): Status: Acute (4) Stercoral colitis: Status: Acute (5) Abdominal distension: Status: Acute (6) UTI (urinary tract infection): Status: Acute (7) Severe sepsis: Status: Acute Plan Plan 80 year old woman with a background of dysphagia, HTN, normocytic anemia, GERD, DVT/PE on apixaban, colon adenocarcinoma s/p excision and colostomy anastomosis, admitted with sepsis secondary to stercoral colitis. 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) WBC 15.1 Findings of stercoral colitis, with severe constipation H/o recurrent UTI U/A positive for Proteus mirabilis, continue t IV Ampicillin Will consult Urology for evaluation patient h/o recurrent UTI is concerning Stercoral colitis secondary to Constipation Abdominal Distention KUB X-ray revealing significant abdominal distention and severe stool burden Patient had one episode of moderate episode of dark brown vomit in ED, check occult Bowel regimen with fleet enema and mag citrate Relief s/p soapsuds enema administered 08/02/2025 Keep NPO Acute Hypoxic respiratory failure likely secondary to Atelectasis CXR negative for consolidation or effusion Monitor O2 and maintain supplemental O2 as needed Dysphagia Speech therapy consultation npo for now HTN Continue home medications Nomocytic Anemia HH 10.8/33.8 Improved from 06/24/2025 Will continue to monitor GERD Will continue home meds Pantroprazole Mental Health Disorder Continue home medications Hx of DVT/PE on Eliquis DVT PPX Eliquis Total time managing care of this patient today: 45 minutes. Quality Stroke Does the patient have a stroke diagnosis?: No VTE Prior VTE?: No VTE Risk Level:: Medical - moderate - high VTE Device Contraindication: Treatment Not Indicated VTE Drug Contraindication: N/A - Med Ordered
[2025-08-02 12:45] VITALS: BP 126/58; PULSE 87; RESP 20; TEMP 37; O2SAT 96
--- NOTE | 2025-08-02 13:14 | MHC.SL.SWA ---
Speech Pathologist Impression: Mild oropharyngeal dysphagia Risk of Aspiration Due to: Fluctuating alertness, delayed initiation/cognition Dysphasia Diet Status: Recommend START diet of NDD3 (chopped/advanced), THIN liquids with 1:1 feeding assistance. Liquid Consistency and Strategies for Safe Swallow: Liquid Intake Recommendation: Thin Liquid Intake Strategies: Solid Food Consistency: Dietary Recommendations: Chopped/Advanced (NDD3) Additional Modifications to Solid Foods: Oral Medication Intake: Whole with Liquid Please contact the pharmacy regarding appropriate crushable or liquid drug formulations that are available whenever modified delivery is recommended. Compensatory Strategies and Precautions to be Taken for Safe Swallow: Sit Upright Slow feeding rate Small sips/bites Alternate liquids/solids Double Swallow Requires Cueing Utilize multiple liquids washes to clear residue Remain upright after meal (30 minutes) Supervision While Eating and Drinking for Safe Swallow: Total Assistance (1:1) Foods to Avoid: Swallowing Recommended Treatments: Compensatory strategies Recommendation for Speech: Inpatient Speech Therapy Comment: Patient presents with mild oropharyngeal dysphagia characterized by prolonged mastication, reduced bolus cohesion with mild residue that clears with multiple liquid washes. Patient requiring 1:1 feeding assistance; attempted to hold aguilera cup of water and spilling on self. Patient with no overt s/sx of penetration/aspiration. Patient reporting no difficulties with swallow. Per RN, family reports no modifications needed at LTC and patient tolerated medications whole with liquids this AM. Patient slow to respond and mildly dysarthric; family suspecting psych medications are contributing. Possible pain medication interference as well- for alertness and initiation. Patient requiring multiple liquid washes to clear anthony cracker residue, able to eventually clear. Patient also requiring moderate cueing to swallow, suspected delayed swallow. Recommend START diet of NDD3 (chopped/advanced), THIN liquids with 1:1 feeding assistance (confusion, delayed initiation, physical difficulties). Medications WHOLE with liquids. Recommendations communicated with RN, MD, RD via secure chat. AIRBRUSH ARTIST TECHNICAL to follow. Frequency/Duration: M-F Daily Date Range for Service Req: Timeline to reassess: Windsurfing Instructor Clinican/Clinical Fellow: No Supervisory Statement: I have reviewed and agree with the student/clinical fellow's documentation: N/A Speech Language Pathologist: Renetta Tierney M.A., [facility]-AIRBR[employer] ARTIST TECHNICAL
[2025-08-02 15:58] VITALS: BP 112/56; PULSE 84; RESP 16; TEMP 36.3; O2SAT 96
--- NOTE | 2025-08-02 19:09 | PC.NURSE ---
Pt with large amount of stool in rectum. Manually disempacted and given SSE per order. Expelled a lot of gas and shreds of stool. Tolerated well. Abdomen soft, distended, nontender post enema. No further nausea. Tolerating clear liquids.
[2025-08-02 19:23] VITALS: BP 127/58; PULSE 86; RESP 18; TEMP 36.6; O2SAT 97
[2025-08-02 23:37] VITALS: BP 115/54; PULSE 81; RESP 16; TEMP 36.5; O2SAT 95
[2025-08-03] VITALS (10 sets, daily range): BP systolic 107–111; BP diastolic 51–56; PULSE 67–89; RESP 16–18; TEMP 36–36.7; O2SAT 87–98
[2025-08-03 00:23] LABS: Glucose, Whole Blood 91 mg/dL (60-115)
--- NOTE | 2025-08-03 01:24 | P.EN_ITS ---
Event Note Date of Service: 08/03/25 Event Note: See notified this staff writer that patient was somewhat lethargic and required sternal rub to respond. Patient's blood sugar was 91. Vital signs stable, Temp 97.1, HR 81, RR 16, BP 115/54, O2 95% on 2L. Patient currently here being treated for sepsis and UTI. Patient is on multiple psychiatric medications. Patient is seen at the bedside and was responsive to stimuli both verbal and physical. Per nursing patient has not been sleeping well and this may be the 1s t night that patient has had decent sleep. Patient currently afebrile but feels warm. We will administer a 500 cc fluid bolus and Tylenol suppository. Additional labs will be added for the a.m. to include CBC, CMP, lactic acid and VBG for thorough overview. Nursing notified to contact this staff writer with any concerns or changes. Time Spent With Patient Time: Total time managing care of this patient today ____ minutes.
[2025-08-03] MEDS: Acetaminophen Supp 650 MG SUPP.RECT PR (01:35)
--- NOTE | 2025-08-03 04:50 | PC.NURSE ---
Upon assuming care of pt at 19:00, pt A&Ox2, sitting up in bed sleeping on/off, arousal to name, per pt stated she's tired, hasn't slept in the past few nights. Pt took her [facility] bedtime medications w/ assistance, see MAR. Throughout the night pt became more lethargic, this junior technical writer had to sternal rub the pt a few times to wake her up, but then she will fall right back to sleep quickly, unable to stay awake during conversation. Pt's VS were stable: Temp 97.1, HR 81, RR 16, BP 115/54, and O2 95% on 2L. This junior technical writer notified the qualifications examiner hospitalist PSYCHOLOGIST EDUCATIONAL Mariusz about the situation. Per PSYCHOLOGIST EDUCATIONAL, to check pt's blood sugar lever and it was 91. PSYCHOLOGIST EDUCATIONAL Mariusz came to pt's bedside to assess pt. Pt was responsive to verbal/physical stimuli, pt was warm to touch but no fever noted. Per PSYCHOLOGIST EDUCATIONAL ordered, 500ml of fluid bolus, Tylenol supp, and labs to be checked in the AM. Pt's rectal temp was checked and was 98.0, after the Tylenol supp came down to 97.5. Pt sleeping in bed w/ eyes closed, respirations even and unlabored. Will continue to monitor pt's orientation.
[2025-08-03 05:20] LABS: Venous Blood Gas Refer to POC result
[2025-08-03 05:22] LABS: VBG HCO3 34 mmol/L (22-26); VBG O2 % Saturation 98.0 %
[2025-08-03 05:36] LABS: Alanine Aminotransferase < 6 U/L (0-31); Albumin Level 2.8 g/dL (3.5-5.0); Alkaline Phosphatase 49 U/L (39-117); Anion Gap 11 (12-20); Aspartate Amino Transferase 16 U/L (5-31); Blood Urea Nitrogen 22 mg/dL (9-16); Calcium 8.3 mg/dL (8.4-10.2); Carbon Dioxide 28 mmol/L (22-29); Chloride 109 mmol/L (96-108); Creatinine Clr Calc Pharmacy 50.8; Estimated Glomerular Filt Rate 55; Potassium 3.3 mmol/L (3.3-5.1); Sodium 145 mmol/L (135-145); Total Protein 5.1 g/dL (6.5-8.0)
[2025-08-03] MEDS: Ampicillin Sodium 500 MG in 0.9 % Sodium Chloride 50 ML 100 MG IV ×4 (05:36→20:40)
[2025-08-03 08:00] LABS: Glucose, Whole Blood 99 mg/dL (60-115)
[2025-08-03 08:03] LABS: MANUAL DIFF FLAG NO
[2025-08-03 08:06] LABS: Hematocrit 29.0 % (37.0-47.0); Hemoglobin 8.8 g/dl (12.0-16.0); Imm Gran Abs Auto 0.04 X10*3/uL (0.00-0.03); Imm Gran Pct Auto 0.5 % (0.0-0.4); Lymphocytes Absolute Auto 1.6 X10*3/uL (1.2-4.9); Mean Corpuscular HGB Conc 30.3 g/dl (31.0-35.0); Mean Corpuscular Hemoglobin 28.9 pg (27.0-33.0); Mean Corpuscular Volume 95.1 fL (80.0-98.0); NRBC Abs Auto 0.000 X10*3/uL (0.0-0.012); NRBC Pct Auto 0.0 /100WBC (0.0-0.2); Platelet Count 222 X10*3/uL (160-400); Red Blood Count 3.05 X10*6/uL (4.20-5.50); White Blood Count 8.3 X10*3/uL (4.8-10.8)
[2025-08-03 08:13] LABS: Ammonia 25 umol/L (13-55)
--- NOTE | 2025-08-03 09:01 | PC.NURSE ---
Patient taken off unit for CT, IV fluids paused for imagining.
--- NOTE | 2025-08-03 09:26 | PC.NURSE ---
Patient returned from CT.
[2025-08-03] MEDS: 0.9 % Sodium Chloride Flush 3 ML SYRINGE IVFLUSH ×2 (09:38→17:08)
--- NOTE | 2025-08-03 10:46 | HO.WOUND ---
Addendum entered by Marti Osuna RN 08/03/25 10:50: 08/03/25 Right Heel - purple blanchable intact tissue not PI. Original Note: Wound Consult: Initial 80yr old female admitted to [facility] 08/01/25 07:23 - see H7P for detailed history. finishing room supervisor called during prevalence study by RN to assess Right Heel for etiology and recommendations. Photos were reviewed and assessed in person and the Right Heel is noted to be a a purple pigmentation noted. The tissue remains intact and blanchable - the light purple coloring is not uniform and not consistent with PI. Recommendations shared with direct care RN. Recommendations: 1. Right Heel - Elevate heels off of bed. Apply skin prep apply heel boot protector or heel foam dressing. Peel back / remove Q shift and assess heels. Change every 3 days and PRN. 2. Turn and Reposition every 2 hours and as needed for patient comfort. 3. Off Load all bony prominences. 4. Monitor for incontinence and moisture control. 5. Provide adequate and supplemental nutrition. 6. Continue DI mattress. Reconsult wound care team for wound deterioration or wound changes.
[2025-08-03] MEDS: Milk of Magnesia 30 ML ORAL.SUSP PO (12:38)
--- NOTE | 2025-08-03 12:44 | HO.PM.IMPN ---
Subjective Subjective Date of Service: 08/03/25 Interval History: Overnight events reviewed-episode of somnolence with difficulty waking patient This morning, patient appears more alert and aware as compared to yesterday Less ill-appearing Reports improvement in her abdominal distention and discomfort Endorses hunger Review of Systems Review of Systems: Yes all other systems are reviewed and are negative Physical Exam Exam: Exam: General: comfortable, no pain Cardiac: S1, S2 auscultated with no S3/4, no MRG. Well perfused. Respiratory: Normal breath sounds auscultated throughout all lung zones, without wheezing, rales. Normal rate. GI/ : Abdominal distention noted, without tenderness in any quadrants, with normal bowel sounds, no rebound, hepatosplenomegaly or guarding MSK: Normal ambulation without pain at bony prominences or musculature Neurological: Normal neurological examination on overview, without obvious CN II-XII abnormalities. Vital Signs: Vital Signs: Last Vital Signs Temp 96.8 F 08/03/25 11:43 Pulse 68 08/03/25 11:43 Resp 16 08/03/25 11:43 BP 108/54 L 08/03/25 11:43 Pulse Ox 94 08/03/25 11:43 O2 Del Method Nasal Cannula 08/03/25 11:43 O2 Flow Rate 1 08/03/25 11:43 BMI result Body Mass Index 33.4 Objective Data Active Medications Acetaminophen (Acetaminophen 325 Mg Tablet) 650 mg PO Q6H PRN PRN Reason: Pain, Mild 1-3,fever,headache Apixaban (Apixaban 5 Mg Tablet) 5 mg PO BID [facility] Last Admin: 08/03/25 09:38 Dose: 5 mg Documented By: KAYLEE Atorvastatin Calcium (Atorvastatin Calcium 10 Mg Tablet) 10 mg PO BEDTIME [facility] Last Admin: 08/02/25 20:03 Dose: 10 mg Documented By: CANDIDO Calcium Carbonate (Calcium Carbonate 750 Mg Tab.Chew) 750 mg PO Q4H PRN PRN Reason: Heartburn Carvedilol (Carvedilol 3.125 Mg Tablet) 3.125 mg PO BID [facility]; Protocol Last Admin: 08/03/25 09:38 Dose: 3.125 mg Documented By: KAYLEE Divalproex Sodium (Divalproex Sodium Er 500 Mg Tab.Er.24h) 500 mg PO BEDTIME [facility] Last Admin: 08/02/25 20:04 Dose: 500 mg Documented By: CANDIDO Furosemide (Furosemide 40 Mg Tablet) 40 mg PO DAILY [facility]; Protocol Last Admin: 08/03/25 09:38 Dose: 40 mg Documented By: KAYLEE Ampicillin Sodium 500 mg/ (Sodium Chloride) 50 mls @ 100 mls/hr IV Q6H [facility] Last Infusion: 08/03/25 06:17 Dose: Infused Documented By: CANDIDO Sodium Chloride (Ns) 1,000 mls @ 80 mls/hr IVCONT .[id number] [facility] Last Admin: 08/03/25 06:25 Dose: Not Given Documented By: CANDIDO Non-Admin Reason: new IVF was ordered per physician Dextrose/Sodium Chloride (D5ns) 1,000 mls @ 80 mls/hr IVCONT .[id number] [facility] Last Infusion: 08/03/25 09:44 Dose: 0 mls/hr Documented By: KAYLEE Loratadine (Loratadine 10 Mg Tablet) 10 mg PO DAILY [facility] Last Admin: 08/03/25 09:38 Dose: 10 mg Documented By: KAYLEE Magnesium Hydroxide (Milk Of Magnesia 30 Ml Oral.Susp) 30 ml PO DAILY [facility] Last Admin: 08/03/25 12:38 Dose: 30 ml Documented By: KAYLEE Melatonin (Melatonin 3 Mg Tablet) 6 mg PO BEDTIME PRN PRN Reason: Insomnia Non-Formulary Medication (Deutetrabenazine [Austedo]) 12 mg PO BID [facility] Non-Formulary Medication (Risperidone Microspheres) 25 mg IM Q14D [facility] Nortriptyline HCl (Nortriptyline Hcl 10 Mg Capsule) 10 mg PO BEDTIME [facility] Last Admin: 08/02/25 20:04 Dose: 10 mg Documented By: CANDIDO Omeprazole (Omeprazole 20 Mg Capsule.Dr) 20 mg PO DAILY@0630 [facility] Last Admin: 08/03/25 05:57 Dose: Not Given Documented By: CANDIDO Non-Admin Reason: Patient Condition Contraindication Ondansetron HCl (Ondansetron Hcl 4 Mg/2 Ml Vial) 4 mg IVPUSH Q8H PRN PRN Reason: Nausea and Vomiting Last Admin: 08/02/25 08:27 Dose: 4 mg Documented By: HO.RAEJ Senna (Sennosides 8.6 Mg Tablet) 17.2 mg PO DAILY [facility] Last Admin: 08/03/25 12:38 Dose: 17.2 mg Documented By: KAYLEE Sodium Biphosphate/Sodium Phosphate (Sodium Phosphate,[place]-Dibasic 133 Ml Enema) 133 ml [place] ONCE PRN PRN Reason: Constipation Sodium Chloride (0.9 % Sodium Chloride Flush 3 Ml Syringe) 3 ml IVFLUSH QSHIFT [facility] Last Admin: 08/03/25 09:38 Dose: 3 ml Documented By: KAYLEE Labs 08/03/25 07:53 08/03/25 05:11 Labs: Laboratory Results - last 24 hr 08/01/25 08/03/25 08/03/25 08:28 00:18 05:11 MCV Cancelled MCH Cancelled MCHC Cancelled RDW Cancelled Plt Count Cancelled MPV Cancelled Immature Gran % (Auto) Cancelled Neut % (Auto) Cancelled Lymph % (Auto) Cancelled [place] % (Auto) Cancelled Eos % (Auto) Cancelled Baso % (Auto) Cancelled Lymph # (Auto) Cancelled [place] # (Auto) Cancelled Eos # (Auto) Cancelled Baso # (Auto) Cancelled Abs Immat Gran (auto) Cancelled Absolute Neuts (auto) Cancelled Absolute Nucleated RBC Cancelled Nucleated RBC % (auto) Cancelled VBG pH VBG pCO2 VBG pO2 VBG HCO3 VBG O2 Saturation VBG Base Excess Anion Gap 11 L Estim Creat Clear Calc 50.8 Estimated GFR 55 POC Glucose 91 Random Glucose 83 Lactic Acid 0.7 Calcium 8.3 L D Total Bilirubin 0.2 AST 16 ALT < 6 Alkaline Phosphatase 49 Ammonia Total Protein 5.1 L Albumin 2.8 L Gastric Occult Blood Cancelled Valproic Acid 08/03/25 08/03/25 08/03/25 05:17 07:53 07:55 MCV 95.1 MCH 28.9 MCHC 30.3 L RDW 17.1 H Plt Count 222 MPV 9.2 L Immature Gran % (Auto) 0.5 H Neut % (Auto) 72.0 Lymph % (Auto) 19.2 L [place] % (Auto) 5.6 Eos % (Auto) 2.5 Baso % (Auto) 0.2 Lymph # (Auto) 1.6 [place] # (Auto) 0.5 Eos # (Auto) 0.2 Baso # (Auto) 0.0 Abs Immat Gran (auto) 0.04 H Absolute Neuts (auto) 6.0 Absolute Nucleated RBC 0.000 Nucleated RBC % (auto) 0.0 VBG pH 7.51 H VBG pCO2 42 VBG pO2 88 VBG HCO3 34 H VBG O2 Saturation 98.0 VBG Base Excess 10.8 Anion Gap Estim Creat Clear Calc Estimated GFR POC Glucose 99 Random Glucose Lactic Acid Calcium Total Bilirubin AST ALT Alkaline Phosphatase Ammonia 25 Total Protein Albumin Gastric Occult Blood Valproic Acid 26.5 L Microbiology Microbiology Results: Microbiology 08/01/25 04:00 Urine Culture - Final Urine clean catch - Clean Catch Midstream Proteus mirabilis 07/31/25 23:25 Blood Culture - Preliminary Blood - Venous No growth after 48 hours. 07/31/25 23:25 Blood Culture - Preliminary Blood - Venous No growth after 48 hours. Assessment and Plan (1) Bipolar 1 disorder: Status: Acute (2) HTN (hypertension): Status: Acute (3) Pulmonary embolism: Status: Acute (4) GERD (gastroesophageal reflux disease): Status: Acute (5) Stercoral colitis: Status: Acute (6) Abdominal distension: Status: Acute (7) UTI (urinary tract infection): Status: Acute (8) Colon adenocarcinoma: Status: Acute (9) Severe sepsis: Status: Acute Plan 80 year old woman with a background of dysphagia, HTN, normocytic anemia, GERD, DVT/PE on apixaban, colon adenocarcinoma s/p excision and colostomy anastomosis, admitted with sepsis secondary to stercoral colitis. 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) WBC 15.1 Findings of stercoral colitis, with severe constipation H/o recurrent UTI U/A positive for Proteus mirabilis, continue t IV Ampicillin Will consult Urology for evaluation patient h/o recurrent UTI is concerning Stercoral colitis secondary Constipation Abdominal Distention KUB X-ray revealing significant abdominal distention and severe stool burden Patient had one episode of moderate episode of dark brown vomit in ED, check occult Bowel regimen with fleet enema and mag citrate Relief s/p soapsuds enema administered 08/02/2025 Keep NPO Acute Hypoxic respiratory failure Atelectasis CXR negative for consolidation or effusion Monitor O2 and maintain supplemental O2 as needed Dysphagia Speech therapy consultation Clear liquid diet started HTN Continue home medications Nomocytic Anemia HH 10.8/33.8 Improved from 06/24/2025 Will continue to monitor GERD Will continue home meds Pantroprazole Mental Health Disorder Continue home medications Hx of DVT/PE on Eliquis [employer] - VTE: Apixaban - CODE STATUS: Full code - DIET: Clear liquid diet - DISPOSITION: Long-term care facility resident Total time managing care of this patient today: 35 minutes. Quality Stroke Does the patient have a stroke diagnosis?: No VTE Prior VTE?: No VTE Risk Level:: Medical - moderate - high VTE Device Contraindication: Treatment Not Indicated VTE Drug Contraindication: N/A - Med Ordered
--- NOTE | 2025-08-03 14:00 | PC.NURSE ---
Loss IV access this morning, patient is difficult IV placement, multiple nurses attempted, reached out to resources to try to get an ultrasound guided IV. Waiting Ultrasound IV trained nurse to assist with IV placement. Provider Bridget aware of loss of IV access and delay in medication administration.
--- NOTE | 2025-08-03 14:56 | MHC.SLORD ---
Speech Language Pathology Order Status: Pt not seen today, remains on clear liquid diet. No further nausea. SENIOR C DEVELOPER to follow up as indicated.
--- NOTE | 2025-08-03 15:24 | MHC.CM.PN ---
EMR REVIEWED AND PER MD ROUNDS, PT IS NOT MEDICALLY CLEARED FOR DC BACK TO [facility]. PT CONTINUES WITH ABDOMINAL DISTENTION BUT MORE ALERT. [facility] UPDATED VIA [facility] AND CM WILL CONTINUE TO FOLLOW.
--- NOTE | 2025-08-03 15:56 | PC.NURSE ---
Patient has had labile mental status, at times she is awake, alert and conversing appropriately. Other times she will be very sleepy, does not open eyes during care such as IV placements and requires physical stimuli to open her eyes. Provider Bridget shane via [employer].
[2025-08-03 16:18] LABS: Glucose, Whole Blood 167 mg/dL (60-115)
--- NOTE | 2025-08-03 16:20 | PC.NURSE ---
Patient continues to be sleepy, with nod head yes when questions are asked and will open eyes to physical stimuli. Blood sugar checked due loss of IV access and IV fluids not infusing. Reached out to provider Bridget via [employer] to verify to continue D5NS after blood sugar check >160, provider verbalized to continue with D5NS infusion.
[2025-08-04] VITALS (12 sets, daily range): BP systolic 80–145; BP diastolic 46–62; PULSE 56–78; RESP 15–20; TEMP 36.1–36.7; O2SAT 94–97
[2025-08-04] MEDS: Ampicillin Sodium 500 MG in 0.9 % Sodium Chloride 50 ML 100 MG IV ×4 (03:02→19:57)
[2025-08-04 07:13] LABS: Glucose, Whole Blood 106 mg/dL (60-115)
[2025-08-04] MEDS: Milk of Magnesia 30 ML ORAL.SUSP PO (11:18)
--- NOTE | 2025-08-04 11:29 | P.PNIM_ITS ---
Subjective Subjective Date of Service: 08/04/25 Interval History: More somnolent this morning Hypotensive on evaluation 80s systolic Received 500 cc bolus NaCl with improvement in blood pressure. Asymptomatic throughout. . Placed on normal saline infusion 100 cc/hour with improvement in blood pressure. Holding furosemide and holding carvedilol. Has been having stools daily with scheduled laxatives Review of Systems Review of Systems: Yes all other systems are reviewed and are negative Physical Exam 2 Exam: Exam: General: comfortable, no pain Cardiac: S1, S2 auscultated with no S3/4, no MRG. Well perfused. Respiratory: Normal breath sounds auscultated throughout all lung zones, without wheezing, rales. Normal rate. GI/ : Abdominal distention noted, without tenderness in any quadrants, with normal bowel sounds, no rebound, hepatosplenomegaly or guarding MSK: Normal ambulation without pain at bony prominences or musculature Neurological: Normal neurological examination on overview, without obvious CN II-XII abnormalities. Vital Signs: Vital Signs: Last Vital Signs Temp 97.0 F 08/04/25 07:57 Pulse 70 08/04/25 08:55 Resp 15 08/04/25 08:45 BP 110/56 L 08/04/25 10:15 Pulse Ox 95 08/04/25 08:55 O2 Del Method Nasal Cannula 08/04/25 08:55 O2 Flow Rate 1 08/04/25 08:55 BMI result Body Mass Index 33.4 Objective Data Active Medications Acetaminophen (Acetaminophen 325 Mg Tablet) 650 mg PO Q6H PRN PRN Reason: Pain, Mild 1-3,fever,headache Apixaban (Apixaban 5 Mg Tablet) 5 mg PO BID [facility] Last Admin: 08/04/25 11:18 Dose: 5 mg Documented By: KIARA Atorvastatin Calcium (Atorvastatin Calcium 10 Mg Tablet) 10 mg PO BEDTIME [facility] Last Admin: 08/03/25 20:25 Dose: 10 mg Documented By: CANDIDO Calcium Carbonate (Calcium Carbonate 750 Mg Tab.Chew) 750 mg PO Q4H PRN PRN Reason: Heartburn Carvedilol (Carvedilol 3.125 Mg Tablet) 3.125 mg PO BID [facility]; Protocol Last Admin: 08/04/25 11:24 Dose: Not Given Documented By: KIARA Non-Admin Reason: Physician Held Med Divalproex Sodium (Divalproex Sodium Er 500 Mg Tab.Er.24h) 500 mg PO BEDTIME [facility] Last Admin: 08/03/25 20:25 Dose: 500 mg Documented By: CANDIDO Furosemide (Furosemide 40 Mg Tablet) 40 mg PO DAILY [facility]; Protocol Last Admin: 08/04/25 11:25 Dose: Not Given Documented By: KIARA Non-Admin Reason: Physician Held Med Ampicillin Sodium 500 mg/ (Sodium Chloride) 50 mls @ 100 mls/hr IV Q6H [facility] Last Infusion: 08/04/25 10:05 Dose: Infused Documented By: KIARA Sodium Chloride (Ns) 1,000 mls @ 100 mls/hr IVCONT .Q10H [facility] Last Admin: 08/04/25 09:26 Dose: 100 mls/hr Documented By: KIARA Loratadine (Loratadine 10 Mg Tablet) 10 mg PO DAILY [facility] Last Admin: 08/04/25 11:18 Dose: 10 mg Documented By: KIARA Magnesium Hydroxide (Milk Of Magnesia 30 Ml Oral.Susp) 30 ml PO DAILY [facility] Last Admin: 08/04/25 11:18 Dose: 30 ml Documented By: KIARA Melatonin (Melatonin 3 Mg Tablet) 6 mg PO BEDTIME PRN PRN Reason: Insomnia Non-Formulary Medication (Deutetrabenazine [Austedo]) 12 mg PO BID [facility] Non-Formulary Medication (Risperidone Microspheres) 25 mg IM Q14D [facility] Nortriptyline HCl (Nortriptyline Hcl 10 Mg Capsule) 10 mg PO BEDTIME [facility] Last Admin: 08/03/25 20:26 Dose: 10 mg Documented By: CANDIDO Omeprazole (Omeprazole 20 Mg Capsule.Dr) 20 mg PO DAILY@0630 [facility] Last Admin: 08/04/25 06:32 Dose: Not Given Documented By: CANDIDO Non-Admin Reason: Patient Asleep Ondansetron HCl (Ondansetron Hcl 4 Mg/2 Ml Vial) 4 mg IVPUSH Q8H PRN PRN Reason: Nausea and Vomiting Last Admin: 08/02/25 08:27 Dose: 4 mg Documented By: TORITO Senna (Sennosides 8.6 Mg Tablet) 17.2 mg PO DAILY [facility] Last Admin: 08/04/25 11:18 Dose: 17.2 mg Documented By: KIARA Sodium Biphosphate/Sodium Phosphate (Sodium Phosphate,[place]-Dibasic 133 Ml Enema) 133 ml [place] ONCE PRN PRN Reason: Constipation Sodium Chloride (0.9 % Sodium Chloride Flush 3 Ml Syringe) 3 ml IVFLUSH QSHIFT [facility] Last Admin: 08/04/25 09:26 Dose: Not Given Documented By: KIARA Non-Admin Reason: Previously Administered Labs 08/03/25 07:53 08/03/25 05:11 Labs: Laboratory Results - last 24 hr 08/03/25 08/04/25 16:14 07:05 POC Glucose 167 H 106 Microbiology Microbiology Results: Microbiology 08/01/25 04:00 Urine Culture - Final Urine clean catch - Clean Catch Midstream Proteus mirabilis Assessment and Plan (1) HTN (hypertension): Status: Acute (2) Pulmonary embolism: Status: Acute (3) Obesity: Status: Acute (4) Stercoral colitis: Status: Acute (5) Abdominal distension: Status: Acute (6) GERD (gastroesophageal reflux disease): Status: Acute (7) UTI (urinary tract infection): Status: Acute (8) Severe sepsis: Status: Acute (9) Sepsis: Status: Acute (10) Colon adenocarcinoma: Status: Acute (11) Cognitive disorder: Status: Acute (12) Functional constipation: Status: Acute Plan 80 year old woman with a background of dysphagia, HTN, normocytic anemia, GERD, DVT/PE on apixaban, colon adenocarcinoma s/p excision and colostomy anastomosis, admitted with sepsis secondary to stercoral colitis. 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) WBC 15.1 Findings of stercoral colitis, with severe constipation H/o recurrent UTI U/A positive for Proteus mirabilis, continue t IV Ampicillin Will consult Urology for evaluation patient h/o recurrent UTI is concerning Stercoral colitis secondary Constipation Abdominal Distention KUB X-ray revealing significant abdominal distention and severe stool burden Patient had one episode of moderate episode of dark brown vomit in ED, check occult Bowel regimen with fleet enema and mag citrate Relief s/p soapsuds enema administered 08/02/2025 Keep NPO Acute Hypoxic respiratory failure Atelectasis CXR negative for consolidation or effusion Monitor O2 and maintain supplemental O2 as needed Dysphagia Speech therapy consultation Clear liquid diet started HTN Hypotension patient's blood pressure low, requiring fluid bolus & infusion NaCl 0.9% 500 cc bolus administered NaCl 0.9% 100 cc/hour for 1 L administered Hold furosemide Hold carvedilol - transition to metoprolol when able to resume Nomocytic Anemia HH 10.8/33.8 Improved from 06/24/2025 Will continue to monitor GERD Will continue home meds Pantroprazole Mental Health Disorder Continue home medications Hx of DVT/PE on Eliquis QUALITY [employer]RICS - VTE: Apixaban - CODE STATUS: Full code - DIET: Clear liquid diet - DISPOSITION: Long-term care facility resident Total time managing care of this patient today: 45 minutes. Quality Stroke Does the patient have a stroke diagnosis?: No VTE Prior VTE?: No VTE Risk Level:: Medical - moderate - high VTE Device Contraindication: Treatment Not Indicated VTE Drug Contraindication: N/A - Med Ordered
[2025-08-04 13:43] LABS: Anion Gap 11 (12-20); Blood Urea Nitrogen 19 mg/dL (9-16); Calcium 8.2 mg/dL (8.4-10.2); Carbon Dioxide 25 mmol/L (22-29); Chloride 113 mmol/L (96-108); Creatinine Clr Calc Pharmacy 57.3; Estimated Glomerular Filt Rate > 60; Potassium 3.9 mmol/L (3.3-5.1); Sodium 145 mmol/L (135-145)
--- NOTE | 2025-08-04 18:28 | PC.NURSE ---
Approximately 0755- this RN was notified of patient's low BP, 80/46. This RN arrived to bedside and assessed patient. Patient was somnolent and difficult to arouse, but this designer/writer was able to rouse patient to respond. Per shift report, patient has been somnolent and difficult to arouse at times. 0800- Dr. Gill notified face to face, and arrived to bedside to assess the patient. Patient more easily aroused at this time, but remained lethargic. 500mL bolus of 0.9% NS ordered and administered, see MAR for details. Patient placed in Trendelenberg position per MD. BP frequently checked. BP steadily improved over the course of approximately 1 hour. Patient slowly transitioned back to supine with BP remaining stable. Dr. Gill continuously updated throughout monitoring. All other vital signs remained stable. No c/o chest pain or dizziness. See MAR and vital signs documentation for details. Maintenance IV fluids running at ordered rate. BP remained stable throughout rest of shift.
--- NOTE | 2025-08-04 18:54 | MHC.SLORD ---
Speech Language Pathology Order Status: DIAGNOSTIC CARDIAC SONOGRAPHER unable to see patient this date. RN with no current concerns; minimal PO intake with fluctuating alertness this date. Will continue to follow.
[2025-08-04] MEDS: 0.9 % Sodium Chloride Flush 3 ML SYRINGE IVFLUSH (20:16)
[2025-08-05 03:20] VITALS: BP 130/61; PULSE 78; RESP 18; TEMP 36.6; O2SAT 94
[2025-08-05] MEDS: Ampicillin Sodium 500 MG in 0.9 % Sodium Chloride 50 ML 100 MG IV ×4 (03:42→21:04)
[2025-08-05 06:28] LABS: Anion Gap 10 (12-20); Blood Urea Nitrogen 16 mg/dL (9-16); Calcium 8.3 mg/dL (8.4-10.2); Carbon Dioxide 24 mmol/L (22-29); Chloride 114 mmol/L (96-108); Creatinine Clr Calc Pharmacy 66.5; Estimated Glomerular Filt Rate > 60; Potassium 3.2 mmol/L (3.3-5.1); Sodium 145 mmol/L (135-145)
[2025-08-05 06:59] VITALS: BP 120/58; PULSE 71; RESP 16; TEMP 36.1; O2SAT 94
[2025-08-05] MEDS: Milk of Magnesia 30 ML ORAL.SUSP PO (09:03)
[2025-08-05 11:57] VITALS: BP 134/68; PULSE 76; RESP 18; TEMP 36.2; O2SAT 95
--- NOTE | 2025-08-05 13:06 | HO.PM.IMPN ---
Subjective Subjective Date of Service: 08/05/25 Interval History: no new issues or new complaints today rechecking lab work BP preserved Review of Systems Review of Systems: Yes all other systems are reviewed and are negative Physical Exam Exam: Exam: General: comfortable, no pain Cardiac: S1, S2 auscultated with no S3/4, no MRG. Well perfused. Respiratory: Normal breath sounds auscultated throughout all lung zones, without wheezing, rales. Normal rate. GI/ : Abdominal distention noted, without tenderness in any quadrants, with normal bowel sounds, no rebound, hepatosplenomegaly or guarding MSK: Normal ambulation without pain at bony prominences or musculature Neurological: Normal neurological examination on overview, without obvious CN II-XII abnormalities. Vital Signs: Vital Signs: Last Vital Signs Temp 97.1 F 08/05/25 11:57 Pulse 76 08/05/25 11:57 Resp 18 08/05/25 11:57 BP 134/68 08/05/25 11:57 Pulse Ox 95 08/05/25 11:57 O2 Del Method Nasal Cannula 08/05/25 11:57 O2 Flow Rate 1 08/05/25 11:57 BMI result Body Mass Index 33.4 Objective Data Active Medications Acetaminophen (Acetaminophen 325 Mg Tablet) 650 mg PO Q6H PRN PRN Reason: Pain, Mild 1-3,fever,headache Apixaban (Apixaban 5 Mg Tablet) 5 mg PO BID [facility] Last Admin: 08/05/25 09:03 Dose: 5 mg Documented By: KEISHA Atorvastatin Calcium (Atorvastatin Calcium 10 Mg Tablet) 10 mg PO BEDTIME [facility] Last Admin: 08/04/25 20:16 Dose: 10 mg Documented By: KHOA Calcium Carbonate (Calcium Carbonate 750 Mg Tab.Chew) 750 mg PO Q4H PRN PRN Reason: Heartburn Divalproex Sodium (Divalproex Sodium Er 500 Mg Tab.Er.24h) 500 mg PO BEDTIME [facility] Last Admin: 08/04/25 20:16 Dose: 500 mg Documented By: KHOA Furosemide (Furosemide 40 Mg Tablet) 40 mg PO DAILY [facility]; Protocol On Hold: 08/04/25 11:34 Last Admin: 08/04/25 11:25 Dose: Not Given Documented By: KIARA Non-Admin Reason: Physician Held Med Ampicillin Sodium 500 mg/ (Sodium Chloride) 50 mls @ 100 mls/hr IV Q6H [facility] Last Infusion: 08/05/25 09:02 Dose: Infused Documented By: KEISHA Sodium Chloride (Ns) 1,000 mls @ 100 mls/hr IVCONT .Q10H [facility] Last Admin: 08/05/25 03:43 Dose: 100 mls/hr Documented By: KHOA Loratadine (Loratadine 10 Mg Tablet) 10 mg PO DAILY [facility] Last Admin: 08/05/25 09:03 Dose: 10 mg Documented By: KEISHA Magnesium Hydroxide (Milk Of Magnesia 30 Ml Oral.Susp) 30 ml PO DAILY [facility] Last Admin: 08/05/25 09:03 Dose: 30 ml Documented By: KEISHA Melatonin (Melatonin 3 Mg Tablet) 6 mg PO BEDTIME PRN PRN Reason: Insomnia Non-Formulary Medication (Deutetrabenazine [Austedo]) 12 mg PO BID [facility] Non-Formulary Medication (Risperidone Microspheres) 25 mg IM Q14D [facility] Nortriptyline HCl (Nortriptyline Hcl 10 Mg Capsule) 10 mg PO BEDTIME [facility] Last Admin: 08/04/25 20:16 Dose: 10 mg Documented By: KHOA Omeprazole (Omeprazole 20 Mg Capsule.) 20 mg PO DAILY@0630 [facility] Last Admin: 08/05/25 05:59 Dose: 20 mg Documented By: KHOA Ondansetron HCl (Ondansetron Hcl 4 Mg/2 Ml Vial) 4 mg IVPUSH Q8H PRN PRN Reason: Nausea and Vomiting Last Admin: 08/02/25 08:27 Dose: 4 mg Documented By: TORITO Senna (Sennosides 8.6 Mg Tablet) 17.2 mg PO DAILY [facility] Last Admin: 08/05/25 09:03 Dose: 17.2 mg Documented By: KEISHA Sodium Biphosphate/Sodium Phosphate (Sodium Phosphate,[place]-Dibasic 133 Ml Enema) 133 ml [place] ONCE PRN PRN Reason: Constipation Sodium Chloride (0.9 % Sodium Chloride Flush 3 Ml Syringe) 3 ml IVFLUSH QSHIFT [facility] Last Admin: 08/05/25 07:13 Dose: Not Given Documented By: HO.PARROWA Non-Admin Reason: IV Running Labs 12/10/25 07:53 08/05/25 05:27 Labs: Laboratory Results - last 24 hr 08/04/25 08/05/25 13:05 05:27 Anion Gap 11 L 10 L Estim Creat Clear Calc 57.3 66.5 Estimated GFR > 60 > 60 Random Glucose 168 H 98 Calcium 8.2 L 8.3 L Assessment and Plan (1) HTN (hypertension): Status: Acute (2) Obesity: Status: Acute (3) GERD (gastroesophageal reflux disease): Status: Acute (4) Stercoral colitis: Status: Acute (5) Functional constipation: Status: Acute (6) Abdominal distension: Status: Acute (7) Colon adenocarcinoma: Status: Acute (8) Severe sepsis: Status: Acute (9) Sepsis: Status: Acute (10) Cognitive disorder: Status: Acute Plan 80 year old woman with a background of dysphagia, HTN, normocytic anemia, GERD, DVT/PE on apixaban, colon adenocarcinoma s/p excision and colostomy anastomosis, admitted with sepsis secondary to stercoral colitis. 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) WBC 15.1 Findings of stercoral colitis, with severe constipation H/o recurrent UTI U/A positive for Proteus mirabilis, continue t IV Ampicillin Will consult Urology for evaluation patient h/o recurrent UTI is concerning Stercoral colitis secondary Constipation Abdominal Distention KUB X-ray revealing significant abdominal distention and severe stool burden Patient had one episode of moderate episode of dark brown vomit in ED, check occult Bowel regimen with fleet enema and mag citrate Relief s/p soapsuds enema administered 08/02/2025 Keep NPO Acute Hypoxic respiratory failure Atelectasis CXR negative for consolidation or effusion Monitor O2 and maintain supplemental O2 as needed Dysphagia Speech therapy consultation Clear liquid diet started HTN Hypotension patient's blood pressure low, requiring fluid bolus & infusion NaCl 0.9% 500 cc bolus administered NaCl 0.9% 100 cc/hour for 1 L administered Hold furosemide Hold carvedilol - transition to metoprolol when able to resume Nomocytic Anemia HH 10.8/33.8 Improved from 06/24/2025 Will continue to monitor GERD Will continue home meds Pantroprazole Mental Health Disorder Continue home medications Hx of DVT/PE on Eliquis [employer]ALITY [employer] - VTE: Apixaban - CODE STATUS: Full code - DIET: Clear liquid diet - DISPOSITION: Long-term care facility resident Total time managing care of this patient today: 45 minutes. Quality Stroke Does the patient have a stroke diagnosis?: No VTE Prior VTE?: No VTE Risk Level:: Medical - moderate - high VTE Device Contraindication: Treatment Not Indicated VTE Drug Contraindication: N/A - Med Ordered
[2025-08-05 15:27] VITALS: BP 140/66; PULSE 80; RESP 16; TEMP 36.3; O2SAT 96
--- NOTE | 2025-08-05 16:05 | MHC.SL.SWA ---
Speech Pathologist Impression: Risk of Aspiration, Oropharyngeal Dysphagia Dysphasia Diet Status: Adjust diet order for THIN liquids (prev on NT- unclear who had adjusted) Liquid Consistency and Strategies for Safe Swallow: Liquid Intake Recommendation: Thin Liquid Intake Strategies: Small Sips No Straws Solid Food Consistency: Dietary Recommendations: Chopped/Advanced (NDD3) Additional Modifications to Solid Foods: Recc strategies for oral clearance: small bites, chew food well, moisten w/ sauce/gravy, alternate w/ sips of liquid, dry swallow between bites Patient is able to feed herself, but will need assistance w/ tray set up, opening of containers, etc throughout meals Oral Medication Intake: Whole with Liquid Please contact the pharmacy regarding appropriate crushable or liquid drug formulations that are available whenever modified delivery is recommended. Compensatory Strategies and Precautions to be Taken for Safe Swallow: Sitting Upright (90 deg) Double Swallow No Straw Small Bites and Sips Alternate Liquids/Solids Rate of Ingestion Change Supervision While Eating and Drinking for Safe Swallow: Direct Supervision (1:1) Swallowing Recommended Treatments: Compens. Strategy Educat. Recommendation for Speech: Inpatient Speech Therapy Frequency/Duration: M-F Daily Date Range for Service Req: Timeline to reassess: [employer] Supervisor Clinican/Clinical Fellow: No Supervisory Statement: I have reviewed and agree with the student/clinical fellow's documentation: N/A Speech Language Pathologist: Portia Zamarripa M.A., CCC-NUCLEAR CONTROL OPERATOR
--- NOTE | 2025-08-05 16:35 | MHC.CM.PN ---
PER MD ROUNDS, PT NOT YET CLEARED TO DC DCP: RETURN TO [facility]
[2025-08-05 19:41] VITALS: BP 137/70; PULSE 76; RESP 16; TEMP 36.4; O2SAT 96
[2025-08-05] MEDS: 0.9 % Sodium Chloride Flush 3 ML SYRINGE IVFLUSH (21:07)
[2025-08-05 23:37] VITALS: BP 125/59; PULSE 81; RESP 14; TEMP 36.1; O2SAT 94
[2025-08-06] MEDS: Ampicillin Sodium 500 MG in 0.9 % Sodium Chloride 50 ML 100 MG IV ×4 (02:35→20:18)
[2025-08-06 03:25] VITALS: BP 141/83; PULSE 76; RESP 16; TEMP 36.2; O2SAT 95
[2025-08-06 06:56] LABS: Anion Gap 7 (12-20); Blood Urea Nitrogen 14 mg/dL (9-16); Calcium 8.2 mg/dL (8.4-10.2); Carbon Dioxide 23 mmol/L (22-29); Chloride 117 mmol/L (96-108); Creatinine Clr Calc Pharmacy 69.2; Estimated Glomerular Filt Rate > 60; Potassium 3.4 mmol/L (3.3-5.1); Sodium 144 mmol/L (135-145)
[2025-08-06 07:29] VITALS: BP 136/65; PULSE 65; RESP 16; TEMP 36.4; O2SAT 94
[2025-08-06] MEDS: Milk of Magnesia 30 ML ORAL.SUSP PO (09:14)
[2025-08-06 12:00] VITALS: BP 138/60; PULSE 78; RESP 16; TEMP 36.4; O2SAT 95
--- NOTE | 2025-08-06 13:11 | P.PNIM_ITS ---
Subjective Subjective Date of Service: 08/06/25 Interval History: No new complaints or issues. Easily arousable in the morning. The patient is hard of hearing. Eating well, KUB repeated due to persistence of patient's abdominal bloating, however seems much improved compared to prior imaging Review of Systems Review of Systems: Yes all other systems are reviewed and are negative Physical Exam 2 Exam: Exam: General: comfortable, no pain Cardiac: S1, S2 auscultated with no S3/4, no MRG. Well perfused. Respiratory: Normal breath sounds auscultated throughout all lung zones, without wheezing, rales. Normal rate. GI/ : Abdominal distention noted, without tenderness in any quadrants, with normal bowel sounds, no rebound, hepatosplenomegaly or guarding MSK: Normal ambulation without pain at bony prominences or musculature Neurological: Normal neurological examination on overview, without obvious CN II-XII abnormalities. Vital Signs: Vital Signs: Last Vital Signs Temp 97.5 F 08/06/25 07:29 Pulse 65 08/06/25 07:29 Resp 16 08/06/25 07:29 BP 136/65 08/06/25 07:29 Pulse Ox 94 08/06/25 07:29 O2 Del Method Nasal Cannula 08/06/25 07:29 O2 Flow Rate 1 08/06/25 07:29 BMI result Body Mass Index 33.4 Objective Data Active Medications Acetaminophen (Acetaminophen 325 Mg Tablet) 650 mg PO Q6H PRN PRN Reason: Pain, Mild 1-3,fever,headache Apixaban (Apixaban 5 Mg Tablet) 5 mg PO BID [facility] Last Admin: 08/06/25 09:11 Dose: 5 mg Documented By: SALMA Atorvastatin Calcium (Atorvastatin Calcium 10 Mg Tablet) 10 mg PO BEDTIME [facility] Last Admin: 08/05/25 21:00 Dose: 10 mg Documented By: GAYE Calcium Carbonate (Calcium Carbonate 750 Mg Tab.Chew) 750 mg PO Q4H PRN PRN Reason: Heartburn Divalproex Sodium (Divalproex Sodium Er 500 Mg Tab.Er.24h) 500 mg PO BEDTIME [facility] Last Admin: 08/05/25 20:59 Dose: 500 mg Documented By: GAYE Furosemide (Furosemide 40 Mg Tablet) 40 mg PO DAILY [facility]; Protocol On Hold: 08/04/25 11:34 Last Admin: 08/04/25 11:25 Dose: Not Given Documented By: KIARA Non-Admin Reason: Physician Held Med Ampicillin Sodium 500 mg/ (Sodium Chloride) 50 mls @ 100 mls/hr IV Q6H [facility] Last Infusion: 08/06/25 09:42 Dose: Infused Documented By: SALMA Loratadine (Loratadine 10 Mg Tablet) 10 mg PO DAILY [facility] Last Admin: 08/06/25 09:11 Dose: 10 mg Documented By: SALMA Magnesium Hydroxide (Milk Of Magnesia 30 Ml Oral.Susp) 30 ml PO DAILY [facility] Last Admin: 08/06/25 09:14 Dose: 30 ml Documented By: SALMA Melatonin (Melatonin 3 Mg Tablet) 6 mg PO BEDTIME PRN PRN Reason: Insomnia Non-Formulary Medication (Deutetrabenazine [Austedo]) 12 mg PO BID [facility] Non-Formulary Medication (Risperidone Microspheres) 25 mg IM Q14D [facility] Nortriptyline HCl (Nortriptyline Hcl 10 Mg Capsule) 10 mg PO BEDTIME [facility] Last Admin: 08/05/25 21:00 Dose: 10 mg Documented By: GAYE Omeprazole (Omeprazole 20 Mg Capsule.Dr) 20 mg PO DAILY@0630 [facility] Last Admin: 08/06/25 09:09 Dose: Not Given Documented By: SALMA Non-Admin Reason: previous shift, patient asleep Ondansetron HCl (Ondansetron Hcl 4 Mg/2 Ml Vial) 4 mg IVPUSH Q8H PRN PRN Reason: Nausea and Vomiting Last Admin: 08/02/25 08:27 Dose: 4 mg Documented By: TORITO Senna (Sennosides 8.6 Mg Tablet) 17.2 mg PO DAILY [facility] Last Admin: 08/06/25 09:11 Dose: 17.2 mg Documented By: SALMA Sodium Biphosphate/Sodium Phosphate (Sodium Phosphate,[place]-Dibasic 133 Ml Enema) 133 ml [place] ONCE PRN PRN Reason: Constipation Sodium Chloride (0.9 % Sodium Chloride Flush 3 Ml Syringe) 3 ml IVFLUSH QSHIFT [facility] Last Admin: 08/06/25 09:09 Dose: Not Given Documented By: SALMA Non-Admin Reason: IV Running Labs 08/03/25 07:53 08/06/25 05:55 Labs: Laboratory Results - last 24 hr 08/06/25 05:55 Anion Gap 7 L Estim Creat Clear Calc 69.2 Estimated GFR > 60 Random Glucose 101 Calcium 8.2 L Microbiology Microbiology Results: Microbiology 07/31/25 23:25 Blood Culture - Final Blood - Venous No growth after 5 days. 07/31/25 23:25 Blood Culture - Final Blood - Venous No growth after 5 days. Assessment and Plan (1) HTN (hypertension): Status: Acute (2) Hyperlipidemia: Status: Acute (3) Pulmonary embolism: Status: Acute (4) Obesity: Status: Acute (5) GERD (gastroesophageal reflux disease): Status: Acute (6) Stercoral colitis: Status: Acute (7) Functional constipation: Status: Acute (8) UTI (urinary tract infection): Status: Acute (9) Colon adenocarcinoma: Status: Acute (10) Severe sepsis: Status: Acute Plan 80 year old woman with a background of dysphagia, HTN, normocytic anemia, GERD, DVT/PE on apixaban, colon adenocarcinoma s/p excision and colostomy anastomosis, admitted with sepsis secondary to stercoral colitis. 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) WBC 15.1 Findings of stercoral colitis, with severe constipation H/o recurrent UTI U/A positive for Proteus mirabilis, continue t IV Ampicillin Will consult Urology for evaluation patient h/o recurrent UTI Stercoral colitis secondary Constipation Abdominal Distention KUB X-ray revealing significant abdominal distention and severe stool burden Patient had one episode of moderate episode of dark brown vomit in ED, check occult Bowel regimen with fleet enema and mag citrate Relief s/p soapsuds enema administered 08/02/2025 MOM and Docusate prescribed BID to achieve regular BMs Advanced diet to regular Acute Hypoxic respiratory failure Atelectasis CXR negative for consolidation or effusion Monitor O2 and maintain supplemental O2 as needed Resolved Impression of nocturnal hypoxia in setting of probable TIFFANIE/OHS Dysphagia Speech therapy consultation Clear liquid diet started HTN Hypotension patient's blood pressure low, requiring fluid bolus & infusion NaCl 0.9% 500 cc bolus administered NaCl 0.9% 100 cc/hour for 1 L administered Hold furosemide Hold carvedilol - transition to metoprolol when able to resume Nomocytic Anemia HH 10.8/33.8 Improved from 06/24/2025 Will continue to monitor GERD Will continue home meds Pantroprazole Mental Health Disorder Continue home medications Hx of DVT/PE on Eliquis QUALITY [employer] - VTE: Apixaban - CODE STATUS: Full code - DIET: Clear liquid diet - DISPOSITION: Long-term care facility resident Total time managing care of this patient today: 35 minutes. Quality Stroke Does the patient have a stroke diagnosis?: No VTE Prior VTE?: No VTE Risk Level:: Medical - moderate - high VTE Device Contraindication: Treatment Not Indicated VTE Drug Contraindication: N/A - Med Ordered
[2025-08-06] MEDS: 0.9 % Sodium Chloride Flush 3 ML SYRINGE IVFLUSH ×2 (14:47→20:18)
[2025-08-06 15:15] VITALS: BP 143/68; PULSE 73; RESP 17; TEMP 36.2; O2SAT 96
[2025-08-06 19:04] VITALS: BP 154/73; PULSE 74; RESP 18; TEMP 36.1; O2SAT 96
[2025-08-06 23:21] VITALS: BP 126/59; PULSE 80; RESP 14; TEMP 36.1; O2SAT 94
[2025-08-07 03:22] VITALS: BP 138/66; PULSE 75; RESP 14; TEMP 36; O2SAT 94
[2025-08-07] MEDS: Ampicillin Sodium 500 MG in 0.9 % Sodium Chloride 50 ML 100 MG IV ×3 (03:23→15:02)
[2025-08-07 06:29] LABS: Anion Gap 10 (12-20); Blood Urea Nitrogen 15 mg/dL (9-16); Calcium 8.5 mg/dL (8.4-10.2); Carbon Dioxide 24 mmol/L (22-29); Chloride 115 mmol/L (96-108); Creatinine Clr Calc Pharmacy 69.2; Estimated Glomerular Filt Rate > 60; Potassium 3.8 mmol/L (3.3-5.1); Sodium 145 mmol/L (135-145)
[2025-08-07 07:44] VITALS: BP 146/67; PULSE 78; RESP 16; TEMP 36.7; O2SAT 93
[2025-08-07] MEDS: 0.9 % Sodium Chloride Flush 3 ML SYRINGE IVFLUSH ×2 (09:11→15:02)
[2025-08-07] MEDS: Milk of Magnesia 30 ML ORAL.SUSP PO (09:11)
[2025-08-07 09:19] VITALS: O2SAT 93
--- NOTE | 2025-08-07 09:34 | PC.NURSE ---
Dunaway cath removed at 09:24am, DTV at 15:24
[2025-08-07 12:00] VITALS: BP 141/67; PULSE 80; RESP 16; TEMP 36.2; O2SAT 92
--- NOTE | 2025-08-07 13:55 | P.DS_ITS ---
DS: Providers Provider Date of admission: 08/01/25 07:23 Date of discharge: 08/07/25 Primary care physician: Faisal Telles MD Consults: 08/01/25 09:36 Consult to Urology Routine Consulting Provider: [facility] Reason for consultation: frequent UTI 08/03/25 08:32 Consult to Wound Care Routine Consulting Provider: [facility] Reason for consultation: right heel purple but blanchable 08/06/25 01:09 Consult to Wound Care Routine Consulting Provider: [facility] Reason for consultation: R heel ? DTI DS: Diagnosis Discharge Diagnosis (1) HTN (hypertension): Status: Acute (2) Hyperlipidemia: Status: Acute (3) Pulmonary embolism: Status: Acute (4) Obesity: Status: Acute (5) GERD (gastroesophageal reflux disease): Status: Acute (6) Stercoral colitis: Status: Acute (7) Functional constipation: Status: Acute (8) UTI (urinary tract infection): Status: Acute (9) Colon adenocarcinoma: Status: Acute (10) Severe sepsis: Status: Acute DS: Summary Hospital Course Hospital Course: Hospital Course 80-year-old woman with a history of colon adenocarcinoma (s/p right colectomy), DVT/PE on apixaban, hypertension, GERD, obesity, cognitive disorder, and bipolar disorder, admitted from SNF with sepsis secondary to stercoral colitis and UTI (Proteus mirabilis), complicated by acute hypoxic respiratory failure and abdominal distention. She improved with IV antibiotics, aggressive bowel regimen, and supportive care, with resolution of hypoxia and normalization of labs. She is now stable for discharge. As per H&P: Chief Complaint: Shortness of breath and rectal pain 80 y/o female with PMSH of Colon adenocarcinoma, Colon neoplasm, GERD, S/P right colectomy (01/05/24), presenting to the ED for treatment of SOB, Hypoxia, con stipation and rectal pain. Patient reported that SOB started 3-4 days ago and gradually became worst prompting her to seek treatment in the ED. She also reported rectal pain and constipation that has been ongoing for the past couple of months. Reports associated symptoms of chest pain in the mid epigastric region with no radiation for past 3-4 days, nausea but no vomiting and mild abdominal pain in lower abdomen intermittently for past couple weeks, denies fever, chills, headache, dizziness, or diarrhea. In the ED Temp 100.3, SPO2 88% RN improved with 2L O2, CXR showed No acute cardiopulmonary process. No focal pulmonary consolidation. KUB X-Ray Mild distention of the colon with gas and stool throughout the abdomen. A/P CT scan . [id number]-oa-tjxse colonic stool burden present with a large rectal stool burden, perirectal edema, consistent with stercoral colitis. No bowel obstruction. Cholelithiasis and small hiatal hernia. She received 1L LR bolus, Diatizoate, Maxepime, Iohexol 350mg. Problem List with Clinical Course and Plan 1. Severe Sepsis (secondary to UTI and Stercoral Colitis) * Clinical Course:?Presented with leukocytosis, elevated lactate, and hypoxia. Initial broad-spectrum antibiotics (cefepime), transitioned to IV ampicillin after urine culture grew Proteus mirabilis. Marked clinical improvement with normalization of WBC and lactate. * Plan:?Transition to oral antibiotics (per sensitivities and formulary) to complete course. Monitor for recurrence of infection. Outpatient follow-up with PCP and urology for recurrent UTI evaluation. 2. Stercoral Colitis / Functional Constipation * Clinical Course:?Imaging revealed significant stool burden and colonic distention. Managed with aggressive bowel regimen (soapsuds enema, magnesium citrate, MOM, docusate, senna), resulting in multiple bowel movements and resolution of abdominal distention. No evidence of bowel obstruction or perforation. * Plan:?Continue bowel regimen as needed. Encourage high-fiber diet and adequate hydration. Outpatient GI follow-up as indicated. 3. Urinary Tract Infection (Proteus mirabilis, recurrent) * Clinical Course:?UTI confirmed by urine culture. Treated with IV ampicillin, transitioned to oral antibiotics for completion. Urology consulted for recurrent UTI risk. * Plan:?Complete oral antibiotic course. Outpatient urology follow-up for further evaluation. 4. Acute Hypoxic Respiratory Failure (resolved) * Clinical Course:?Required supplemental oxygen on admission (SpO2 88% on RA, improved to >92% on 2L NC). CXR negative for consolidation. Hypoxia resolved; oxygen discontinued, now saturating 95% on room air. * Plan:?No further oxygen required. Monitor for respiratory symptoms. Consider outpatient sleep study for TIFFANIE/OHS if clinically indicated. 5. Hypertension * Clinical Course:?BP initially labile with episodes of hypotension during sepsis, managed with IV fluids and holding antihypertensives/diuretics. BP now stable. * Plan:?Resume home antihypertensives as tolerated. Monitor BP as outpatient. 6. Normocytic Anemia * Clinical Course:?Stable, chronic anemia (Hgb ?10.8), no evidence of acute blood loss. * Plan:?Monitor CBC as outpatient. No transfusion indicated. 7. GERD * Clinical Course:?Maintained on home pantoprazole/omeprazole. No GI bleeding or new symptoms. * Plan:?Continue home PPI. 8. History of DVT/PE (on apixaban) * Clinical Course:?Anticoagulation continued throughout admission. No new thromboembolic events. * Plan:?Continue apixaban. Monitor for bleeding. 9. Colon Adenocarcinoma (s/p right colectomy, colostomy) * Clinical Course:?No evidence of recurrence or acute complications during this admission. * Plan:?Continue routine oncology follow-up. 10. Cognitive Disorder / Bipolar Disorder * Clinical Course:?Baseline cognitive impairment, managed with home psychiatric medications. No acute changes. * Plan:?Continue home psychiatric regimen. Outpatient psychiatry follow-up as indicated. 11. Obesity * Clinical Course:?BMI 33.4. No acute complications. * Plan:?Encourage weight management strategies as outpatient. Status at Discharge Overall status at discharge: patient is back to baseline Time Attestation Total time managing care of this patient today: 45 mintues. Discharge Coordination Time (in mins): 35 Quality: Safe Use of Opioids Does Pt have an Active Cancer Diagnosis on the Problem List?: No Quality: Stroke Does the patient have a stroke diagnosis?: No Physical Exam Exam: Exam: General: comfortable, no pain Cardiac: S1, S2 auscultated with no S3/4, no MRG. Well perfused. Respiratory: Normal breath sounds auscultated throughout all lung zones, without wheezing, rales. Normal rate. GI/ : Abdominal distention noted, without tenderness in any quadrants, with normal bowel sounds, no rebound, hepatosplenomegaly or guarding MSK: Normal ambulation without pain at bony prominences or musculature Neurological: Normal neurological examination on overview, without obvious CN II-XII abnormalities. Vital Signs: Vital Signs: Last Vital Signs Temp 97.1 F 08/07/25 12:00 Pulse 80 08/07/25 12:00 Resp 16 08/07/25 12:00 BP 141/67 H 08/07/25 12:00 Pulse Ox 92 08/07/25 12:00 O2 Del Method Room Air 08/07/25 12:00 O2 Flow Rate 1 08/07/25 07:44 BMI result Body Mass Index 33.4 DS: Data Data Completed and Pending Completed studies during hospitalization [Text1]: Procedures Excision of Ascending Colon, Via Natural or Artificial Opening Endoscopic, Diagnostic (12/29/23) Extirpation of Matter from Left Pulmonary Artery, Percutaneous Approach (11/29/23) Insertion of Intraluminal Device into Inferior Vena Cava, Percutaneous Approach (11/29/23) Replacement of Left Hip Joint, Femoral Surface with Synthetic Substitute, Uncemented, Open Approach (11/29/23) Resection of Right Large Intestine, Open Approach (12/29/23) Transfusion of Nonautologous Red Blood Cells into Peripheral Vein, Percutaneous Approach (12/29/23) Labs on day of discharge: Laboratory Results - last 24 hr 08/07/25 05:52 Sodium 145 Potassium 3.8 Chloride 115 H Carbon Dioxide 24 Anion Gap 10 L BUN 15 Creatinine 0.72 Estim Creat Clear Calc 69.2 Estimated GFR > 60 Random Glucose 100 Calcium 8.5 Discharge Plan Discharge Anticipated Discharge Date/Time: 08/07/25 14:02 Patient Disposition: Xfer LTC Discharge Diagnosis: For sepsis 2/2 complicated UTI and stercoral colitis Referrals: Bashir Strickland [Outside] - 1 Week Faisal Telles MD [Primary Care Provider, [facility]] - 1 Week Discharge Medications: New ampicillin 500 mg capsule 500 mg PO QID 8 Days Qty: 32 0RF Continued simvastatin 20 mg tablet 20 mg PO BEDTIME Qty: 90 1RF docusate sodium 100 mg Capsule 100 mg PO BID ondansetron 4 mg Tablet,Disintegrating 4 mg PO Q6H PRN (Reason: Nausea And Vomiting) divalproex 500 mg Tablet Extended Release 24 Hr 500 mg PO BEDTIME Eliquis 5 mg tablet 5 mg PO BID furosemide 40 mg Tablet 40 mg PO DAILY metformin 500 mg Tablet 500 mg PO DAILY acetaminophen 325 mg Tablet 650 mg PO Q6H PRN (Reason: DISCOMFORT/PAIN) lidocaine 4 % Adhesive Patch,Medicated 1 patch TOPICAL DAILY MDD 12 hours on and off melatonin 3 mg Tablet 3 mg PO BEDTIME acetaminophen 500 mg Tablet 1,000 mg PO BID carvedilol 3.125 mg Tablet 3.125 mg PO BID Rx Instructions: must administer with a meal/food magnesium hydroxide [Milk of Magnesia] 400 mg/5 mL Suspension 30 ml PO DAILY PRN (Reason: Constipation) Rx Instructions: DAILY AND IF NO BM IN 3 DAYS. bisacodyl 10 mg Suppository 10 mg ME DAILY PRN (Reason: Constipation) lidocaine [Lidoderm] 5 % Adhesive Patch,Medicated 1 patch TOPICAL DAILY MDD 12 hrs on and off Rx Instructions: leave on most painful area for up to 12 hrs loratadine 10 mg Tablet 10 mg PO DAILY diclofenac sodium 1 % Gel 4 g TOPICAL Q8H PRN (Reason: Pain) Rx Instructions: apply to single knee, ankle, foot; for foot includes sole/toes/top of foot Austedo 12 mg Tablet 12 mg PO BID Sore Throat (benzocaine-menth) 15-3.6 mg Lozenge 1 tahmina MUCOUS MEMBRANE Q8H PRN (Reason: Sore Throat) polyethylene glycol 3350 [Miralax] 17 gram/dose powder 17 g PO DAILY sennosides [senna] 8.6 mg Tablet 8.6 mg PO BID Rx Instructions: Hold for loose stool. pantoprazole [Protonix] 20 mg tablet,delayed release (DR/EC) 20 mg PO BEDTIME witch kenrick leaf (hamamelis) Liquid 1 ea TOPICAL Q2H PRN (Reason: pain in anus) folic acid 1 mg tablet 1 mg PO DAILY Risperdal Consta 25 mg/2 mL suspension,extended rel recon 25 mg IM Q14D nortriptyline 10 mg capsule 10 mg PO BEDTIME Discharge Orders: Discharge Order (Routine); Ordered 08/07/25 Ordered By: lBack Gill Diet: Advance to usual diet Activity on Discharge: As tolerated Stand Alone Forms: Patient Portal Discharge page Print Language: Syriac Care Plan Goals: As above Health Concerns: As above Plan of Treatment: Follow up with PCP within 1 week of discharge Follow up with Urology in the outpatient setting due to recurrent UTI Follow up with Gastroenterology Assessment: Hemodynamically stable for discharge, with resolution of patient's hypoxia, constipation
[2025-08-07 15:12] VITALS: BP 142/65; PULSE 79; RESP 19; TEMP 36.1; O2SAT 94
[2025-08-09 10:49] LABS: Risperidone + OH Risperidone 72.7 ng/mL
== END 2025-08-07 17:05 | DRG 871 ==
LOC: HO.ED 22:25 → HO.EDOVER 08-01 07:28 → HO.S3 08-01 14:45
PROVIDERS: Nurse Practitioner Family; Admitting Provider Nurse Practitioner Acute Care; Emergency Provider Emergency Medicine; PCP Student in an Organized Health Care Education/Training Program; Visit Provider Hospitalist
DX: A41.9 Sepsis, unspecified organism (principal); J96.01 Acute respiratory failure with hypoxia; N39.0 Urinary tract infection, site not specified; J98.11 Atelectasis; E87.3 Alkalosis; Z87.891 Personal history of nicotine dependence; R65.20 Severe sepsis without septic shock; K21.9 Gastro-esophageal reflux disease without esophagitis; I10 Essential (primary) hypertension; B96.4 Proteus (mirabilis) (morganii) as the cause of diseases classified elsewhere; D64.9 Anemia, unspecified; R13.10 Dysphagia, unspecified; K52.89 Other specified noninfective gastroenteritis and colitis; I95.9 Hypotension, unspecified; E66.9 Obesity, unspecified; Z68.33 Body mass index [BMI] 33.0-33.9, adult; Z71.3 Dietary counseling and surveillance; K59.04 Chronic idiopathic constipation; Z20.822 Contact with and (suspected) exposure to COVID-19; Z85.038 Personal history of other malignant neoplasm of large intestine; Z98.0 Intestinal bypass and anastomosis status; Z87.440 Personal history of urinary (tract) infections; Z79.01 Long term (current) use of anticoagulants; Z79.84 Long term (current) use of oral hypoglycemic drugs; Z79.899 Other long term (current) drug therapy
CPT/HCPCS: 36415; 70450; 71045; 74018; 74177; 80048; 80053; 80164; 80342; 81001; 82140; 82803; 82947; 83605; 83880; 84484; 85025; 85027; 85379; 85610; 87040; 87086; 87088; 87186; 87637; 92526; 92610; 93005; 99285; J0290; J0692; J1120; J2405; J7120; Q9967

== ENCOUNTER → 2025-07-31 21:58 | Outpatient (BNV) | payer MEDICARE, MEDICAID, SELFPAY | PROVIDERS: Admitting Provider Nurse Practitioner Acute Care; Emergency Provider Emergency Medicine; PCP Student in an Organized Health Care Education/Training Program; Visit Provider Internal Medicine Cardiovascular Disease | DX: R00.0 Tachycardia, unspecified (principal) | CPT/HCPCS: 93010 ==

== ENCOUNTER → 2025-07-31 21:58 | Outpatient (BNV) | payer MEDICARE, MEDICAID, SELFPAY | PROVIDERS: Emergency Provider Emergency Medicine; PCP Student in an Organized Health Care Education/Training Program; Visit Provider Radiology Diagnostic Radiology | DX: R07.9 Chest pain, unspecified (principal); K59.00 Constipation, unspecified; R14.0 Abdominal distension (gaseous) | CPT/HCPCS: 71045; 74018 ==

== ENCOUNTER → 2025-08-01 02:05 | Outpatient (BNV) | payer MEDICARE, MEDICAID, SELFPAY | PROVIDERS: Emergency Provider Emergency Medicine; PCP Student in an Organized Health Care Education/Training Program; Visit Provider Radiology Diagnostic Radiology | DX: K80.20 Calculus of gallbladder without cholecystitis without obstruction (principal); K44.9 Diaphragmatic hernia without obstruction or gangrene | CPT/HCPCS: 74177 ==

== ENCOUNTER 2025-08-01 07:23 | Outpatient (BNV) | payer MEDICARE, MEDICAID, SELFPAY | END 2025-08-02 09:04 | PROVIDERS: Admitting Provider Nurse Practitioner Acute Care; Emergency Provider Emergency Medicine; PCP Student in an Organized Health Care Education/Training Program; Visit Provider Radiology Diagnostic Radiology | DX: K59.00 Constipation, unspecified (principal) | CPT/HCPCS: 74018 ==

== ENCOUNTER 2025-08-01 07:23 | Outpatient (BNV) | payer MEDICARE, MEDICAID, SELFPAY | END 2025-08-03 09:12 | PROVIDERS: Admitting Provider Nurse Practitioner Acute Care; Emergency Provider Emergency Medicine; PCP Student in an Organized Health Care Education/Training Program; Visit Provider Radiology Diagnostic Radiology | DX: R90.82 White matter disease, unspecified (principal); G31.9 Degenerative disease of nervous system, unspecified | CPT/HCPCS: 70450 ==

== ENCOUNTER → 2025-08-01 07:23 | Outpatient (BNV) | payer MEDICARE, MEDICAID, SELFPAY | PROVIDERS: Admitting Provider Nurse Practitioner Acute Care; Emergency Provider Emergency Medicine; PCP Student in an Organized Health Care Education/Training Program; Visit Provider Urology | DX: N39.0 Urinary tract infection, site not specified (principal) | CPT/HCPCS: 99222 ==

== ENCOUNTER → 2025-08-01 07:23 | Outpatient (BNV) | payer MEDICARE, MEDICAID, SELFPAY | PROVIDERS: Admitting Provider Nurse Practitioner Acute Care; Emergency Provider Emergency Medicine; PCP Student in an Organized Health Care Education/Training Program; Visit Provider Hospitalist | DX: K52.89 Other specified noninfective gastroenteritis and colitis (principal) | CPT/HCPCS: 99223 ==

== ENCOUNTER 2025-08-12 07:13 | Outpatient (REF) | payer MEDICARE, MEDICAID, SELFPAY ==
--- OUTSIDE RECORDS SUMMARY | 2025-08-12 07:15 | XMS_ITS | Encounter Summary ---
Author Organization [facility], Address [address] [place] [address] Phone Care Team Providers Care Edger Liner Name Role Phone Villa Jiang MD Primary Care Provider Unav ailable Encounter Details Date Type Department Care Team (Late st Contact Info) Description 12/10/2023 Documentation Only [facility], [address] [place] [address] Felicitas Medellin [address] [place] [phone] Social History Tobacco Use Types Packs/Day Years [...] on filedocumented in this encounter Care Teams Edger Liner Relationship Specialty Start Date End Date Villa Jiang MD [address] [place] [address] PCP - General Internal Medicine 03/19/23 documented as of this encounter
--- OUTSIDE RECORDS SUMMARY | 2025-08-12 07:15 | XMS_ITS | Encounter Summary ---
Author Organization [facility], Address [address] [place] [address] Phone Care Team Providers Care Director Of Graduate Admissions Name Role Phone Villa Jiang MD Primary Care Provider Unav ailable Encounter Details Date Type Department Care Team (Late st Contact Info) Description 04/28/2024 Documentation Only [facility], [address] [place] [place] [address] Felicitas Medellin [address] [place] [phone] Social History Tobacco Use Types Packs/Day Years [...] on filedocumented in this encounter Care Teams Director Of Graduate Admissions Relationship Specialty Start Date End Date Villa Jiang MD [address] [place] [address] PCP - General Internal Medicine 03/19/23 documented as of this encounter
--- OUTSIDE RECORDS SUMMARY | 2025-08-12 07:15 | XMS_ITS | Encounter Summary ---
Author Organization [facility], Address [address] [place] [address] Phone Care Team Providers Care Sap Grc Security Name Role Phone Villa Jiang MD Primary Care Provider Unav ailable Encounter Details Date Type Department Care Team (Late st Contact Info) Description 04/28/2024 Documentation Only [facility], [address] [place] [address] Felicitas Medellin [address] [place] [phone] Social History Tobacco Use Types Packs/Day Years [...] on filedocumented in this encounter Care Teams Sap Grc Security Relationship Specialty Start Date End Date Villa Jiang MD [address] [place] [address] PCP - General Internal Medicine 03/19/23 documented as of this encounter
--- OUTSIDE RECORDS SUMMARY | 2025-08-12 07:15 | XMS_ITS | Clinical Summary ---
Author Organization [facility], Address [address] [place] [address] [place] [address] Phone Care Team Providers Care Gate Operator Name Role Phone Villa Jiang MD [...] age to complete this topic Insurance Medicare [facility] Care Teams Gate Operator Relationship Specialty Start Date End Date Villa Jiang MD [address] [place] [address] PCP - General Internal Medicine 03/19/23
--- OUTSIDE RECORDS SUMMARY | 2025-08-12 07:15 | XMS_ITS | Encounter Summary ---
Author Organization [facility], Address [address] [place] [address] Phone Care Team Providers Care Hand Cementer Name Role Phone Villa Jiang MD Primary Care Provider Unav ailable Encounter Details Date Type Department Care Team (Late st Contact Info) Description 04/28/2024 Documentation Only [facility], [address] [place] [address] Felicitas Medellin [address] [place] [phone] Social History Tobacco Use Types Packs/Day Years [...] filedocumented in this encounter Care Teams Hand Cementer Relationship Specialty Start Date End Date Villa Jiang MD [address] [place] [address] PCP - General Internal Medicine 03/19/23 documented as of this encounter
--- OUTSIDE RECORDS SUMMARY | 2025-08-12 07:15 | XMS_ITS | Encounter Summary ---
Author Organization [facility], Address [address] [place] [address] Phone Care Team Providers Care Associate Director Name Role Phone Villa Jiang MD Primary Care Provider Unav ailable Encounter Details Date Type Department Care Team (Late st Contact Info) Description 04/28/2024 Documentation Only [facility], [address] [place] [address] Felicitas Medellin [address] [place] [phone] Social History Tobacco Use Types Packs/Day Years [...] on filedocumented in this encounter Care Teams Associate Director Relationship Specialty Start Date End Date Villa Jiang MD [address] [place] [address] PCP - General Internal Medicine 03/19/23 documented as of this encounter
--- OUTSIDE RECORDS SUMMARY | 2025-08-12 07:15 | XMS_ITS | Encounter Summary ---
Author Organization [facility], Address [address] [place] [address] Phone Care Team Providers Care Belly Packer Name Role Phone Villa Jiang MD Primary Care Provider Unav ailable Encounter Details Date Type Department Care Team (Late st Contact Info) Description 10/07/2023 Documentation Only [facility], [address] [place] [address] Felicitas Medellin [address] [place] [phone] Social History Tobacco Use Types Packs/Day Years [...] on filedocumented in this encounter Care Teams Belly Packer Relationship Specialty Start Date End Date Villa Jiang MD [address] [place] [address] PCP - General Internal Medicine 03/19/23 documented as of this encounter
--- OUTSIDE RECORDS SUMMARY | 2025-08-12 07:15 | XMS_ITS | Encounter Summary ---
Author Organization [facility], Address [address] [place] [address] Phone Care Team Providers Care Inventory Analyst Name Role Phone Villa Jiang MD Primary Care Provider Unav ailable Encounter Details Date Type Department Care Team (Late st Contact Info) Description 04/28/2024 Documentation Only [facility], [address] [place] [address] Felicitas Medellin [address] [place] [phone] Social History Tobacco Use Types Packs/Day Years [...] on filedocumented in this encounter Care Teams Inventory Analyst Relationship Specialty Start Date End Date Villa Jiang MD [address] [place] [address] PCP - General Internal Medicine 03/19/23 documented as of this encounter
--- OUTSIDE RECORDS SUMMARY | 2025-08-12 07:15 | XMS_ITS | Encounter Summary ---
Author Organization [facility], Address [address] [place] [address] Phone Care Team Providers Care Orthotic Finish Grinding Technician Name Role Phone Villa Jiang MD Primary Care Provider Unav ailable Encounter Details Date Type Department Care Team (Late st Contact Info) Description 04/28/2024 Documentation Only [facility], [address] [place] [address] Felicitas Medellin [address] [place] [phone] Social History Tobacco Use Types Packs/Day Years [...] on filedocumented in this encounter Care Teams Orthotic Finish Grinding Technician Relationship Specialty Start Date End Date Villa Jiang MD [address] [place] [address] PCP - General Internal Medicine 03/19/23 documented as of this encounter
--- OUTSIDE RECORDS SUMMARY | 2025-08-12 07:15 | XMS_ITS | Encounter Summary ---
Author Organization [facility], Address [address] [place] [address] Phone Care Team Providers Care Power Reactor Operator Name Role Phone Villa Jiang MD Primary Care Provider Unav ailable Encounter Details Date Type Department Care Team (Late st Contact Info) Description 04/28/2024 Documentation Only [facility], [address] [place] [address] Felicitas Medellin [address] [place] [phone] Social History Tobacco Use Types Packs/Day Years [...] on filedocumented in this encounter Care Teams Power Reactor Operator Relationship Specialty Start Date End Date Villa Jiang MD [address] [place] [address] PCP - General Internal Medicine 03/19/23 documented as of this encounter
[2025-08-12 07:16] LABS: MANUAL DIFF FLAG NO
--- OUTSIDE RECORDS SUMMARY | 2025-08-12 07:16 | XMS_ITS | Encounter Summary ---
Author Organization [facility], Address [address] [place] [address] Phone Care Team Providers Care Scientific Linguist Name Role Phone Villa Jiang MD Primary Care Provider Unav ailable Encounter Details Date Type Department Care Team (Late st Contact Info) Description 10/07/2023 Documentation Only [facility], [address] [place] [address] Felicitas Medellin [address] [place] [phone] Social History Tobacco Use Types Packs/Day Years [...] on filedocumented in this encounter Care Teams Scientific Linguist Relationship Specialty Start Date End Date Villa Jiang MD [address] [place] [address] PCP - General Internal Medicine 03/19/23 documented as of this encounter
--- OUTSIDE RECORDS SUMMARY | 2025-08-12 07:16 | XMS_ITS | Encounter Summary ---
Author Organization [facility], Address [address] [place] [address] Phone Care Team Providers Care Tear Down Man Name Role Phone Villa Jiang MD Primary Care Provider Unav ailable Encounter Details Date Type Department Care Team (Late st Contact Info) Description 05/03/2022 Documentation Only [facility], [address] [place] [address] Michael Regan [place] [address] [place] [phone] Social History Tobacco Use Types Packs/Day Years [...] on filedocumented in this encounter Care Teams Tear Down Man Relationship Specialty Start Date End Date Villa Jiang MD [address] [place] [address] PCP - General Internal Medicine 03/19/23 documented as of this encounter
[2025-08-12 07:41] LABS: Hematocrit 27.7 % (37.0-47.0); Hemoglobin 8.7 g/dl (12.0-16.0); Imm Gran Abs Auto 0.04 X10*3/uL (0.00-0.03); Imm Gran Pct Auto 0.4 % (0.0-0.4); Lymphocytes Absolute Auto 2.1 X10*3/uL (1.2-4.9); Mean Corpuscular HGB Conc 31.4 g/dl (31.0-35.0); Mean Corpuscular Hemoglobin 29.1 pg (27.0-33.0); Mean Corpuscular Volume 92.6 fL (80.0-98.0); NRBC Abs Auto 0.000 X10*3/uL (0.0-0.012); NRBC Pct Auto 0.0 /100WBC (0.0-0.2); Platelet Count 237 X10*3/uL (160-400); Red Blood Count 2.99 X10*6/uL (4.20-5.50); White Blood Count 9.6 X10*3/uL (4.8-10.8)
== END 2025-08-12 07:14 | disposition home or self-care (01) ==
LOC: HO.MMNH3L 07:13
PROVIDERS: Visit Provider Physician Assistant Medical
DX: E11.22 Type 2 diabetes mellitus with diabetic chronic kidney disease (principal); N18.9 Chronic kidney disease, unspecified; R09.02 Hypoxemia
CPT/HCPCS: 36415; 85025